=== PATIENT | female | born 1975 | race Caucasian/White ===

== ENCOUNTER 2024-08-09 20:30 | Inpatient (IN) ==
--- NOTE | 2024-08-09 21:13 | Emergency Department Note ---
Impression & Plan Non-healing wound of right lower extremity admit to the [facility] ED Provider Note NAME: REUBEN ANDRADE AGE: 49 SEX: Female INFORMANT: Patient ED PROVIDER(S): Raquel Martins DO CHIEF COMPLAINT: infected leg wounds PLAN: Disposition: Admit to the [facility] MEDICAL DECISION MAKING: this is a 49-year-old female patient who presents to the emergency department with wounds to her lower extremities which have become infected. Patient had breakdown of skin to her lower extremities approximate 1 year ago. She initially had home nursing coming in to do wound care and dressing changes but then began to go to the wound care clinic in [place]. Patient's friend explains that the wounds are not improving, in fact, they are worsening and now they are concerned that the wounds have become infected. the patient is afebrile. Laboratory studies revealed no leukocytosis or anemia. BUN is elevated at 30. I did look at previous laboratory studies in the epic system and her BUN has been previously elevated. renal function was normal. Glucose was 104. Evaluation of her lower extremities reveal multiple open/deep/nonhealing wounds with some surrounding erythema. Patient and her friend are concerned that the current wound care that she is receiving is not been adequate and that her overall condition condition/situation has worsened. I discussed the case with the [facility] and they will evaluate for further inpatient care. Care/management discussed with: civil engineering manager and [facility] Triage Nursing notes: reviewed and agree With them. Vital Signs: reviewed and remarkable for hypertension Additional History obtained from: patient's friend is at the bedside Chronic Medical/Social Conditions affecting care: morbid obesity; neuropathy Prior/ Outside/ External records reviewed: [facility] wound care visit notes and laboratory studies Differential Diagnosis: infected wounds; cellulitis; sepsis HPI: 49 year old Female arrives for evaluation of nonhealing wounds . wounds to her lower extremities which have become infected. Patient had breakdown of skin to her lower extremities approximate 1 year ago. She initially had home nursing coming in to do wound care and dressing changes but then began to go to the wound care clinic in [place]. Patient's friend explains that the wounds are not improving, in fact, they are worsening and now they are concerned that the wounds have become infected.. PAST MEDICAL HISTORY: neuropathy of her lower extremities, depression, obesity SOCIAL HISTORY: See Below, HOME MEDICATIONS: See Below ALLERGIES: See Below VITALS: See Below PHYSICAL EXAMINATION: HEENT: Head - normocephalic and atraumatic. Pupils are equal, round, and reactive to light. Extraocular eye muscles are intact, and sclera are anicteric. Nose - moist nasal mucosa without discharge. Mouth - moist buccal mucosa. Oropharynx is nonerythematous and there is no tonsillar exudate or edema noted. Neck: Supple; no Cervical lymphadenopathy Heart: Regular rate and rhythm. There is a normal S1 and S2 with no murmurs, clicks, or gallops appreciated. Lungs: lung sounds are distant secondary to body habitus but seem clear to auscultation. Abdomen: Soft, completely nontender, nondistended, with good bowel sounds. There are no palpable pulsatile masses or hepatosplenomegaly. There is no guarding, rigidity, or rebound noted. Extremities: Multiple open wounds in the right lower extremity in different stages of skin breakdown. Some have surrounding erythema of the skin And some have erythematous granulation tissue. Of concern are the wounds that are forming in the skin folds. Emergency Department course: The patient was evaluated in room A-11. A complete history and physical was performed. An IV lock was initiated and labs were drawn as above. I did obtain records from the [employer] system for comparison. I discussed the case with the [facility] Hospitalist and they will evaluate for further inpatient care. Past Med/Surg History Problem List (Updated 08/09/24 @ 22:16 by Raquel Martins DO) Non-healing wound of right lower extremity (Acute) Social History Smoking Status: Never smoker Preferred Language: Colombian Feels Safe at Home: Yes Results & Data (ED) Vital Signs Vital Signs - 24 hr 08/09/24 20:35 08/09/24 20:59 08/09/24 21:31 Temperature 36.7 C Temperature Source Temporal Artery Scan Pulse Rate 95 H 93 H Pulse Rate [Apical] 80 Respiratory Rate 16 21 Blood Pressure 167/78 H Blood Pressure Mean 107 Pulse Oximetry 97 Oxygen Delivery Method Room Air Room Air Sepsis Recent Fever Within 48 Hours No Sepsis New/Unexplained Change in Mental Status No Sepsis Action Taken by Nursing No Action Required Laboratory Data 08/09/24 20:55 08/09/24 20:55 Lab Results 08/09/24 Range/Units 20:55 WBC 8.53 (4.8-10.8) K/ul RBC 4.55 (4.20-5.40) M/uL Hgb 11.9 L (12.0-16.0) g/dl Hct 38.4 (37.0-47.0) % MCV 84.4 (80.0-100.0) fL MCH 26.2 (25.0-34.0) pg MCHC 31.0 L (32.0-36.0) g/dL RDW Std Deviation 45.9 (36.4-46.3) fL RDW Coeff of Mignon 15.0 H (11.5-14.5) % Plt Count 313 (130-400) K/uL MPV 9.1 L (9.4-12.4) fL Immature Gran % (Auto) 0.4 % Neut % (Auto) 70.0 % Lymph % (Auto) 24.6 % [place] % (Auto) 4.5 % Eos % (Auto) 0.1 % Baso % (Auto) 0.4 % Neut # (Auto) 5.98 (1.40-6.50) K/uL Lymph # (Auto) 2.10 (1.20-3.40) K/uL [place] # (Auto) 0.38 (0.11-0.59) K/uL Eos # (Auto) 0.01 (0.00-0.50) K/uL Baso # (Auto) 0.03 (0.00-0.20) K/uL Immature Gran # (Auto) 0.03 (0.01-0.20) K/uL PT 10.3 (9.0-12.0) Seconds INR 0.9 (0.9-1.1) APTT 32 H (21-31) Seconds PTT Ratio 1.2 Sodium 138 (136-145) mmol/L Potassium 3.9 (3.5-5.1) mmol/L Chloride 102 (98-107) mmol/L Carbon Dioxide 28 (21-32) mmol/L Anion Gap 8 (3-11) BUN 30 H (6-23) mg/dl Creatinine 0.82 (0.6-1.2) mg/dl Est Cr Clr Drug Dosing 102.2 ml/min eGFR 88.18 BUN/Creatinine Ratio 36.6 H (10-20) Glucose 104 H (70-99(Fasting)) mg/dl Calcium 9.6 (8.6-10.3) mg/dl Total Bilirubin 0.8 (0.2-1.0) mg/dl AST 11 L (13-39) U/L ALT 9 (7-52) U/L Alkaline Phosphatase 88 (34-104) U/L Total Protein 7.8 (6.0-8.3) gm/dl Albumin 3.9 (3.4-5.0) gm/dl Globulin 3.9 (2.5-4.0) gm/dl Albumin/Globulin Ratio 1.0 (0.9-2) Discharge Plan Visit Data Chief Complaint: Leg Injury/Pain Stated Complaint: RT LEG PAIN, ED Provider: Raquel Martins Discharge Problem: Non-healing wound of right lower extremity Forms Stand Alone Forms: [facility] Referrals Referrals: PCP,NO [Physician] -
[2024-08-09 21:18] LABS: Basophils # (auto) 0.03 K/uL (0.00-0.20); Basophils % (auto) 0.4 %; Eosinophils # (auto) 0.01 K/uL (0.00-0.50); Eosinophils % (auto) 0.1 %; Hematocrit (blood only) 38.4 % (37.0-47.0); Hemoglobin 11.9 g/dl (12.0-16.0); Immature Granulocytes # (auto) 0.03 K/uL (0.01-0.20); Immature Granulocytes % (auto) 0.4 %; Lymphocytes % (auto) 24.6 %; Mean Corpuscular Hemoglobin 26.2 pg (25.0-34.0); Mean Corpuscular Volume 84.4 fL (80.0-100.0); Mean Platelet Volume 9.1 fL (9.4-12.4); Monocytes # (auto) 0.38 K/uL (0.11-0.59); Monocytes % (auto) 4.5 %; Neutrophils # (auto) 5.98 K/uL (1.40-6.50); Platelet Count 313 K/uL (130-400); RDW Standard Deviation 45.9 fL (36.4-46.3); Red Blood Count 4.55 M/uL (4.20-5.40); White Blood Count 8.53 K/ul (4.8-10.8)
[2024-08-09 21:26] LABS: Albumin Level 3.9 gm/dl (3.4-5.0); BUN Creatinine Ratio 36.6 (10-20); Bilirubin,Total 0.8 mg/dl (0.2-1.0); Calcium 9.6 mg/dl (8.6-10.3); Creatinine Clr Calc Pharmacy 102.2 ml/min; Globulin 3.9 gm/dl (2.5-4.0); Potassium 3.9 mmol/L (3.5-5.1); Total Protein 7.8 gm/dl (6.0-8.3)
[2024-08-09 21:36] LABS: INR 0.9 (0.9-1.1); Partial Thromboplastin Ratio 1.2; Partial Thromboplastin Time 32 Seconds (21-31); Prothrombin Time 10.3 Seconds (9.0-12.0)
--- NOTE | 2024-08-09 23:31 | History & Physical Report ---
Date of Service August 09, 2024 Assessment & Plan (1) Non-healing wound of lower extremity: Plan: 49-year-old female with past med history significant for mild persistent asthma, obstructive sleep apnea but for last 3 months not using CPAP, questionable heart failure, morbid obesity, GERD, bipolar disorder, recurrent major depression, general anxiety disorder, PTSD, lower EXTR lymphedema comes because of nonhealing bilateral lower extremity wounds. Lower extremity wounds started about a year ago. Initially was getting home health but currently following with wound care in [place]. As per patient and her friend the wounds are getting worse. There seems some discharge from wounds. Denies any fevers. As the wounds are not getting better came here today. Ambulates with a walker. Denies abdominal pain. Normal bowel and bladder movements. Appetite is okay. Denies any chest pain or shortness of breath. No abdominal pain. No nausea. Currently no headache. Has some runny nose from allergies. Currently no sore throat. No cough. No headache. Hemodynamics are okay. In July 2024 patient was in [facility] for depression and suicidal ideation. Patient currently denies any depression or thoughts to hurt herself. Nonhealing wounds of lower extremities Following-up with the wound care but not getting better Will follow wound cultures Consult wound care Empiric IV Dapto and Zosyn Consult ID Close monitor Morbid obesity Counseling Nutrition follow-up Obstructive sleep apnea Not using CPAP for last 3 months. Patient states the tubing intangles causing discomfort that is why not using Counseling Lower extremity lymphedema On Lasix as needed Takes potassium supplement. Will follow labs Will follow echo Will follow Dopplers Bipolar disorder Recurrent depression Generalized anxiety disorder PTSD Continue home meds DVT prophylaxis Lovenox Disposition Med/telemetry Full code. History of Present Illness Chief Complaint: Nonhealing bilateral lower extremity wounds Primary Care Provider: Melissa Cruz PA-C 49-year-old female with past med history significant for mild persistent asthma, obstructive sleep apnea but for last 3 months not using CPAP, questionable heart failure, morbid obesity, GERD, bipolar disorder, recurrent major depression, general anxiety disorder, PTSD, lower EXTR lymphedema comes because of nonhealing bilateral lower extremity wounds. Lower extremity wounds started about a year ago. Initially was getting home health but currently following with wound care in [place]. As per patient and her friend the wounds are getting worse. There seems some discharge from wounds. Denies any fevers. As the wounds are not getting better came here today. Ambulates with a walker. Denies abdominal pain. Normal bowel and bladder movements. Appetite is okay. Denies any chest pain or shortness of breath. No abdominal pain. No nausea. Currently no headache. Has some runny nose from allergies. Currently no sore throat. No cough. No headache. Hemodynamics are okay. In July 2024 patient was in [facility] for depression and suicidal ideation. Patient currently denies any depression or thoughts to hurt herself. Past medical history. As mentioned above Past surgical history. Dental surgery. Hysteroscopy. Hysteroscopy endometrial ablation. Remote kidney stone. Cholecystectomy. Social history. Quit smoking 2011. Smoked 1 pack a day for 5 years. Alcohol rarely. No drug use. Family history. Mother had cervical cancer. CAD. COPD. Father had emphysema. Brother had depression. Allergies Allergy/AdvReac Type Severity Reaction Status Date / Time aspirin AdvReac Nose Bleed Verified 08/10/24 00:43 Home Medications Medication Instructions Recorded Confirmed Type aripiprazole 15 mg tablet 15 mg PO HS 08/09/24 08/09/24 History buspirone 10 mg tablet 10 mg PO BID 08/09/24 08/09/24 History cetirizine 10 mg tablet 10 mg PO DAILY 08/09/24 08/09/24 History clonazepam 1 mg tablet 0.5 mg PO BID PRN Anxiety 08/09/24 08/09/24 History diclofenac sodium 75 mg 75 mg PO TID 08/09/24 08/09/24 History tablet,delayed release duloxetine 60 mg capsule,delayed 60 mg PO DAILY 08/09/24 08/09/24 History release ferrous sulfate 28 mg iron tablet 28 mg PO DAILY 08/09/24 08/09/24 History furosemide 40 mg tablet 40 mg PO DAILY PRN Edema 08/09/24 08/09/24 History lamotrigine 100 mg tablet 100 mg PO BID 08/09/24 08/09/24 History montelukast 10 mg tablet 10 mg PO HS 08/09/24 08/09/24 History omeprazole 20 mg capsule,delayed 20 mg PO DAILY 08/09/24 08/09/24 History release potassium chloride 10 mEq 10 meq PO DAILY 08/09/24 08/09/24 History tablet,extended release pregabalin 150 mg capsule 150 mg PO TID 08/09/24 08/09/24 History Past Med/Surg History Problem List (Updated 08/09/24 @ 23:38 by Chandrakant Bailey MD) Non-healing wound of lower extremity Non-healing wound of right lower extremity (Acute) Social History Smoking Status: Former smoker Hx Alcohol Use: No Hx Substance Use: No Preferred Language: Indonesian Communication Ability: Effective Gill Tender Required: No Beliefs That Will Affect Care: None Current Living Situation: Other Current Living Situation Comment: roommate Feels Safe at Home: Yes Assistive Devices: CPAP, Glasses and Walker Review of Systems Review of Systems: All systems reviewed & are unremarkable except as noted in HPI & below Physical Exam Physical Exam: General- Not in distress Head- atraumatic Eyes- PERRL. ENT- oropharynx clear Neck- supple, no JVD. Lungs- clear to auscultation no wheezing or crackles Heart- regular rate and rhythm; no murmur, no gallop. Abdomen- normal bowel sounds, soft, nontender, no distension Extremities- b/l lower extremity gross edema present. multiple wounds seen right leg around knee region and a wound seen on left leg medial aspect around knee region Neuro- alert, oriented PERRL, no facial palsy; no dysarthria; moves extremities Results & Data Results & Data Vital Signs (Past 12 Hours) Vital Signs Temp Pulse Pulse Resp BP Pulse Ox O2 Del Method 08/09/24 21:31 80 21 Room Air 08/09/24 20:59 93 H 08/09/24 20:35 36.7 C 95 H 16 167/78 H 97 Room Air Diagnostic Findings Laboratory Results WBC 8.53 K/ul (4.8-10.8) 08/09/24 20:55 RBC 4.55 M/uL (4.20-5.40) 08/09/24 20:55 Hgb 11.9 g/dl (12.0-16.0) L 08/09/24 20:55 Hct 38.4 % (37.0-47.0) 08/09/24 20:55 MCV 84.4 fL (80.0-100.0) 08/09/24 20:55 MCH 26.2 pg (25.0-34.0) 08/09/24 20:55 MCHC 31.0 g/dL (32.0-36.0) L 08/09/24 20: RDW Std Deviation 45.9 fL (36.4-46.3) 08/09/24 20: RDW Coeff of Mignon 15.0 % (11.5-14.5) H 08/09/24 20: Plt Count 313 K/uL (130-400) 08/09/24 20: MPV 9.1 fL (9.4-12.4) L 08/09/24 20:55 Immature Gran % (Auto) 0.4 % 08/09/24 20:55 Neut % (Auto) 70.0 % 08/09/24 20:55 Lymph % (Auto) 24.6 % 08/09/24 20:55 [place] % (Auto) 4.5 % 08/09/24 20: Eos % (Auto) 0.1 % 08/09/24 20: Baso % (Auto) 0.4 % 08/09/24 20: Neut # (Auto) 5.98 K/uL (1.40-6.50) 08/09/24 20:55 Lymph # (Auto) 2.10 K/uL (1.20-3.40) 08/09/24 20:55 [place] # (Auto) 0.38 K/uL (0.11-0.59) 08/09/24 20: Eos # (Auto) 0.01 K/uL (0.00-0.50) 08/09/24 20: Baso # (Auto) 0.03 K/uL (0.00-0.20) 08/09/24: Immature Gran # (Auto) 0.03 K/uL (0.01-0.20) 08/09/24 20:55 PT 10.3 Seconds (9.0-12.0) 08/09/24 20: INR 0.9 (0.9-1.1) 08/09/24 20: APTT 32 Seconds (21-31) H 08/09/24 20: PTT Ratio 1.2 08/09/24 20:55 Sodium 138 mmol/L (136-145) 08/09/24 20:55 Potassium 3.9 mmol/L (3.5-5.1) 08/09/24 20:55 Chloride 102 mmol/L (98-107) 08/09/24 20:55 Carbon Dioxide 28 mmol/L (21-32) 08/09/24 20:55 Anion Gap 8 (3-11) 08/09/24 20:55 BUN 30 mg/dl (6-23) H 08/09/24 20:55 Creatinine 0.82 mg/dl (0.6-1.2) 08/09/24 20:55 Est Cr Clr Drug Dosing 102.2 ml/min 08/09/24 20:55 eGFR 88.18 08/09/24 20:55 BUN/Creatinine Ratio 36.6 (10-20) H 08/09/24 20:55 Glucose 104 mg/dl (70-99(Fasting)) H 08/09/24 20:55 Calcium 9.6 mg/dl (8.6-10.3) 08/09/24 20:55 Total Bilirubin 0.8 mg/dl (0.2-1.0) 08/09/24 20:55 AST 11 U/L (13-39) L 08/09/24 20:55 ALT 9 U/L (7-52) 08/09/24 20:55 Alkaline Phosphatase 88 U/L (34-104) 08/09/24 20:55 Total Protein 7.8 gm/dl (6.0-8.3) 08/09/24 20:55 Albumin 3.9 gm/dl (3.4-5.0) 08/09/24 20:55 Globulin 3.9 gm/dl (2.5-4.0) 08/09/24 20:55 Albumin/Globulin Ratio 1.0 (0.9-2) 08/09/24 20:55 Code Status & VTE Plan VTE Prophylaxis Plan VTE Prophylaxis will be ordered: Yes
--- OUTSIDE RECORDS SUMMARY | 2024-08-09 23:46 | External Medical Summary | Summary of Care ---
Author Name Unknown Organization [facility] Address [address] [place] [address] Phone [phone] Care Team Providers Care Radiologic Tech Name Role Phone Melissa Cruz PA-C Primary Care Provider [phone]- [phone] Reason for Visit * Reason Comments eRx-Medication Refill Encounter Details Date Type Department Care Team (Late st Contact Info) Description 08/07/[address] [place] [address] Melissa Cruz PA-C [address] [place] [id number] Vitamin D deficiency Allergies Active Allergy Reactions Criticality Noted Date Comments Aspirin 01/27/2014 Increased bleeding documented as of this encounter (statuses as of 08/08/2024) Medications traZODone (DESYREL) 50 MG Tablet Take 1 Tab by mouth at bedtime as needed, may repeat once for Sleep. 30 Tab 08/22/19 18 Active Albuterol Sulfate HFA 108 (90 Base) MCG/ACT Inhalation Aerosol SolutionIndicatio ns:Mild persistent asthma without complication 2 puffs every 4 hours as needed for shortness of breath/cough 18 g 2 08/29/19 22 Active Fluticasone Propionate 50 MCG/ACT Nasal Suspension (Flonase)Indicati ons:Acute maxillary sinusitis, recurrence not specified SPRAY 2 SPRAYS INTO EACH NOSTRIL IN THE MORNING 16 mL 09/30/19 23 Active Omeprazole 20 MG Oral Capsule Delayed Release (PriLOSEC)Indicat ions:Gastroesopha geal reflux disease without esophagitis TAKE 1 CAPSULE BY MOUTH EVERY DAY 90 Capsule 3 12/03/19 24 Active Diclofenac Sodium 75 MG Oral Tablet Delayed Release (Voltaren)Indicat ions:Primary osteoarthritis of one knee, right TAKE BY MOUTH 1 TABLET IN THE MORNING AND 1 TABLET AT NOON AND 1 TABLET BEFORE BEDTIME. WITH FOOD.. 90 Tablet 5 12/03/19 24 Active Cetirizine HCl 10 MG Oral Tablet (ZyrTEC)Indicatio ns:Mild persistent asthma without complication TAKE 1 TABLET BY MOUTH EVERY DAY 90 Tablet 1 03/17/20 24 Active Potassium Chloride ER 10 MEQ Oral Tablet Extended ReleaseIndication s:Edema, unspecified type TAKE 1 TABLET BY MOUTH EVERY DAY IN THE MORNING 90 Tablet 1 04/23/20 24 Active Ferrous Sulfate 28 MG Oral Tablet Take 1 Tablet by mouth every morning. Active busPIRone HCl 10 MG Oral Tablet (Buspar) Take 1 Tablet by mouth in the morning and 1 Tablet before bedtime. 30 Tablet 1 4 10:21 AM EST 07/21/20 24 Active lamoTRIgine 100 MG Oral Tablet (LaMICtal) Take 1 Tablet by mouth in the morning and 1 Tablet before bedtime. 30 Tablet 1 4 10:21 AM EST 07/21/20 24 Active Pregabalin 150 MG Oral Capsule (Lyrica)Indicatio ns:Neuropathy Take 1 Capsule by mouth in the morning and 1 Capsule at noon and 1 Capsule before bedtime. 45 Capsule 1 4 10:21 AM EST 07/21/20 24 Active DULoxetine HCl 60 MG Oral Capsule Delayed Release Particles (Cymbalta) Take 1 Capsule by mouth in the morning. 15 Capsule 1 4 10:21 AM EST 07/22/20 24 Active ARIPiprazole 15 MG Oral Tablet (Abilify) Take 1 Tablet by mouth at bedtime. 15 Tablet 1 4 10:21 AM EST 07/21/20 24 Active Furosemide 40 MG Oral Tablet (Lasix)Indication s:Lymphedema Take 1 Tablet by mouth daily as needed (edema). 07/21/20 24 Active clonazePAM 1 MG Oral Tablet (KlonoPIN) Take 1 Tablet by mouth 2 times a day as needed for Anxiety. 07/28/20 24 Active Vitamin D3 50 MCG (2000 UT) Oral CapsuleIndication s:Vitamin D deficiency TAKE 1 CAPSULE BY MOUTH EVERY DAY IN THE MORNING 90 Capsule 08/08/19 25 Active Montelukast Sodium 10 MG Oral Tablet (Singulair)Indica tions:Mild persistent asthma without complication Take 1 Tablet by mouth at bedtime. 90 Tablet 3 08/07/19 25 Active Vitamin D3 50 MCG (2000 UT) Oral CapsuleIndication s:Vitamin D deficiency TAKE 1 CAPSULE BY MOUTH EVERY DAY IN THE MORNING 90 Capsule 04/23/20 24 025 Discontinued documented as of this encounter (statuses as of 08/08/2024) Active Problems Problem Noted Date Diagnosed Date Chronic ulcer of lower extremity 07/29/2024 Heart failure 07/29/2024 Type 2 diabetes mellitus wit h hemoglobin A1c goal of less than 7.0% 07/29/2024 Bipolar disorder, current episode depressed, mod erate 07/11/2024 Neuropathy 07/26/2023 Class 3 severe obesity due t o excess calories with serious comorbidity and body mass index (BMI) greater than or equal to 70 in adult 10/06/2020 Bipolar disorder 08/22/2017 PTSD (post-traumatic stress disorder) 08/22/2017 LYNSEY (generalized anxiety disorder) 07/23/2017 Lymphedema 04/27/2017 JORGE A (obstructive sleep apnea) 11/08/2016 Recurrent major depressive disorder, in partial remission 03/15/2015 Asthma, mild persistent 01/20/2015 Lumbago 08/28/2014 Right knee DJD 08/28/2014 Esophageal reflux 01/27/2014 Calculus of kidney 04/01/2010 documented as of this encounter (statuses as of 08/08/2024) Resolved Problems Problem Noted Date Diagnosed Date Resolved Date Body mass index (BMI) greate r than or equal to 70 in adult 05/07/2017 10/06/2020 Overview: Per Obesity protocol #1 Body mass index (BMI) of 70 or greater in adult 10/19/2016 05/10/2017 Overview: Per Obesity protocol #1 Controlled substance agreement terminated 04/28/2016 06/05/2022 Morbid obesity with BMI of 70 and over, adult 04/07/20 16 06/02/2021 Encounter for sterilization 04/16/2015 09/15/2016 Abnormal uterine bleeding 04/16/2015 Controlled substance agreement signed 03/15/2015 04/28/2016 Edema 08/28/2014 04/27/2017 Morbid obesity 01/27/2014 05/10/2017 Overview: Per Obesity protocol #1 Adult body mass index 70 and over 08/11/2010 02/16/2014 Asthma with severity to be determined 01/27/2010 03/15/2015 Overview (11/15/2015): Per Asthma Taxonomy ICD-10 update of inactive term Obesity, morbid (more than 1 00 lbs over ideal weight or BMI > 40) 11/02/2009 03/15/2015 Overview (10/25/2015): Per Obesity Taxonomy ICD-10 update of inactive term ADVANCE DIRECTIVE INFORMATION 12/02/2008 05/06/2018 Overview (12/02/2008): No, Advance Directive brochure given to patient. Melena 10/07/2008 02/16/2014 Abdominal pain, other specified site 09/28/2008 02/16/2014 Overview (09/28/2008): LUQ but more constant in the L. Sided kidney area Morbid obesity, BMI not known 05/04/2006 11/02/2009 Overview (11/02/2009): Per Obesity Taxonomy EXTRINSIC ASTHMA, UNSPEC 05/04/2006 Esophagitis 05/04/2006 03/15/2015 Overview (05/07/2017): ICD-10 update of inactive term Major depressive disorder 05/04/2006 Overview (05/29/2017): ICD-10 update of inactive term documented as of this encounter (statuses as of 08/08/2024) Immunizations Name Administration Dates Next Due Pneumococcal Conjugate Vacci ne, 20-valent ([id number]) 12/04/2022 Pneumococcal Polysaccharide PPV23 (Pneumovax) 05/06/2011 Seasonal Influenza Vac., MDV , IM, 0.5 mL (Fluzone) 05/27/2014,04/11/2013 Seasonal Influenza, PF, 6 M & above, IM , (FluLaval or Fluzone) 06/25/2023,06/05/2022,06/02/2021,05/22,05/06/2018,04/27/2017 Seasonal Influenza, Quadriva lent, No Preserve, IM 05/30/2016 Seasonal Influenza, Trivalen t, (IIV3), PF, (Fluzone) 04/23/2024 TDAP, Age 7 and older, IM (Adacel) 01/20/2015 documented as of this encounter Social History Tobacco Use Types Packs/Day Years Used Date Smoking Tobacco: Former Cigarettes 1 5 1 08/06/2006 - 06/06/2012 Smokeless Tobacco: Never Alcohol Use Standard Drinks/Week Comments Yes 1 (1 standard drink = 0.6 oz pur e alcohol) rare AUDIT-C Answer Date Recorded Q1: How often do you have a drink containing alc ohol? Monthly or less 07/10/2024 Q2: How many drinks containi ng alcohol do you have on a typical day when you are drinking? 5 or 6 07/10/2024 Q3: How often do you have si x or more drinks on one occasion? Less than monthly 07/10/2024 PHQ-2 Answer Date Recorded PHQ Adult Total Score 5 07/21/2024 Hunger Vital Sign Answer Date Recorded Within the past 12 months, y ou worried that your food would run out before you got the money to buy more. Patient declined Within the past 12 months, t he food you bought just didn't last and you didn't have money to get more. Patient declined 12/2023 Childcare Answer Date Recorded Do you feel overwhelmed with taking care of a child, family member or friend? No 03/10/2024 Does your family need help f inding childcare? (Household - for ages 0-17 years) Not on file 03/10/2024 Clothing Answer Date Recorded Have you been unable to get clothing when it was really needed? No 03/10/2024 Is your family able to get c lothes or diapers when needed? (Household - for ages 0-17 years) Not on file 03/10/2024 Personal Safety Answer Date Recorded Do you feel unsafe or have concerns for your saf ety? No 07/10/2024 Do you have concerns for you r family's safety? (Household - for ages 0-17 years) Not on file 07/10/2024 Utilities Answer Date Recorded Do you have trouble paying y our heating, water, or electric bill? No 07/10/2024 Is your family able to pay t he heat, water, or electric bill? (Household - for ages 0-17 years) Not on file 07/10/2024 Does your family have access to good internet? (Household - for ages 0-17 years) Not on file 07/10/2024 Employment Status Answer Date Recorded Are you unemployed or without regular income? No 03/10/2024 Does the household have a re lar source of income? (Household - for ages 0-17 years) Not on file 03/10/2024 Social Connections Answer Date Recorded How often do you feel lonely or isolated from th ose around you? Often 03/10/2024 Financial Resource Strain Answer Date R ecorded Do you have any trouble payi ng for your medications, or do you think you might in the future? No 03/10/2024 Does your family have troubl e paying for medicine? (Household - for ages 0-17 years) Not on file 03/10/2024 Transportation Needs Answer Date Record ed Do you have trouble getting a ride to medical visits or work? (Adult - for ages 18 years and over) Not on file 07/10/2024 Does your family have a hard time getting a ride to doctors visits? (Household - for ages 0-17 years) Not on file 07/10/2024 Has lack of transportation k ept you from medical appointments, meetings, work, or from getting things needed for daily living? Check all that apply. No 07/10/2024 Do you (or your family) have trouble finding or paying for a ride (transportation)? (Household - for ages 0-17 years) Not on file 07/10/2024 Housing Stability Answer Date Recorded Do you currently live in a s helter or have no steady place to sleep at night? No 07/10/2024 Do you think you are at risk of becoming homeless? (Adult - for ages 18 years and over) Not on file 07/10/2024 Does your family worry about paying for your home or becoming homeless? (Household - for ages 0-17 years) Not on file 1 09/10/2023 Are you homeless or worried that you might be in the future? No 07/10/2024 Are you (or your family) camila eless or worried that you might be in the future? (Household - for ages 0-17 years) Not on file Food Insecurity Answer Date Recorded Do you need food for this week? No 07/10/2024 Are you able to get enough f ood for your family? (Household - for ages 0-17 years) Not on file 07/10/2024 Does your family need food t his week? (Household - for ages 0-17 years) Not on file 07/10/2024 Do you always have enough fo od for your family? (Household - for ages 0-17 years) Not on file 07/10/2024 Comments No Sex and Gender Information Value Date Recorded Sex Assigned at Female 12/04/2022 10:26 AM EDT Legal Sex Female 5:51 AM EST Gender Identity Not on file Sexual Orientation Straight 12/04/2022 10 :26 AM EDT Occupation Industry Job Start Date Job End Date disabled Not on file Not on file Not on file documented as of this encounter Miscellaneous Notes * Telephone Encounter - Melissa Cruz PA-C - 08/08/2024 6:42 AM ESTSigned Prescriptions: Disp Refills Vitamin D3 50 MCG (1999) Oral Capsule 90 Cap*0 Sig: TAKE 1 CAPSULE BY MOUTH EVERY DAY IN THE MORNING Authorizing Provider: MELISSA CRUZ * Telephone Encounter - Julieth Mitchell CCMA - 08/07/2024 2:34 PM ESTPending Prescriptions: Disp Refills Vitamin D3 50 MCG (1999) Oral Capsule [*90 Cap*0 Sig: TAKE 1 CAPSULE BY MOUTH EVERY DAY IN THE MORNING * Telephone Encounter - Julieth Mitchell CCMA - 08/07/2024 2:34 PM EST Did you pend patient's preferred pharmacy and medication before forwarding?yes Pharmacy: [facility] [address] [place] [address] Pending Prescriptions: Disp Refills Vitamin D3 50 MCG (1999 UT) Oral Capsule *90 Cap*0 Sig: TAKE 1 CAPSULE BY MOUTH EVERY DAY IN THE MORNING Last Visit: 04/23/2024 (in office), 01/02/2024 (telemedicine) Next Visit: Visit date not found If no future appointments scheduled, and last appointment is greater than a year ago, please schedule patient for a follow-up appointment Last date the medication was ordered: 04/23/2024 Is this request for a controlled substance?No Urine Drug Screen: Results for orders placed or performed during the hospital encounter of 07/09/24 TOXICOLOGY, URINE SCREEN W/O CONFIRMATION Result Value Amphetamines Screen, U Positive (A) Benzodiazepines Screen, U Negative Cannabinoids Screen, U Negative Cocaine Metabolite Screen, U Negative Fentanyl Screen, U Negative Hydrocodone Screen, U Negative Methadone Metabolite Screen, U Negative Morphine/Codeine Screen, U Negative Oxycodone Screen, U Negative Narrative Cutoff Concentrations: Drug Level Amphetamines 500 ng/mL Benzodiazepines 100 ng/mL Cannabinoids 50 ng/mL Cocaine Metabolite 150 ng/mL Fentanyl 1 ng/mL Hydrocodone / Hydromorphone 300 ng/mL Methadone Metabolite 100 ng/mL Morphine / Codeine 300 ng/mL Oxycodone / Oxymorphone 100 ng/mL Screening results are presumptive and can only be used for medical purposes. Confirmatory testing is available upon request. Patient Phone Numbers Labs: Lab Results Component Value Date/Time CREAT 1.0 07/15/2024 11:27 AM CREAT 0.9 01/26/2020 09:02 AM POTASSIUM 4.7 07/15/2024 11:27 AM POTASSIUM 4.6 01/26/2020 09:02 AM TSH 1.83 07/09/2024 12:55 PM TSH 2.91 05/12/2019 09:16 AM LDL 87 07/09/2024 12:55 PM LDL 99 08/18/2017 07:17 AM LDL NOT APPLICABLE 08/18/2017 07:17 AM ALT 14 07/09/2024 12:55 PM ALT 9 (L) 08/16/2018 09:12 PM HGBA1C 4.8 07/09/2024 12:55 PM HGBA1C 5.5 05/12/2019 09:16 AM * Telephone Encounter - Daxa Lucio - 08/07/2024 2:32 PM ESTPending Prescriptions: Disp Refills Vitamin D3 50 MCG (1999 UT) Oral Capsule [*90 Cap*0 Sig: TAKE 1CAPSULE BY MOUTH EVERY DAY IN THE MORNING documented in this encounter Plan of Treatment Upcoming Encounters Date Type Department Care Team (Latest Contact Info) Description 08/08/2024 11:30 AM EST Nurse Only Wound Care, [address] [place] [address] [facility], Nurse Wound Care [address] [place] [address] [place] [address] 08/11/2024 11:20 AM EST Nurse Only Wound Care, [address] [place] [address] [place], Nurse Wound Care [address] [facility] [place] [place] [address] 08/14/2024 11:30 AM EST Nurse Only Wound Care, [facility] [address] [place] [address] [place], Nurse Wound Care [address] [facility] [place] [place] [address] 08/15/2024 11:00 AM EST Nurse Only Wound Care, [address] [place] [address] [place], Nurse Wound Care [address] [facility] [place] [place] [address] 08/18/2024 11:20 AM EST Nurse Only Wound Care, [address] [place] [address] [place], Nurse Wound Care [address] [facility] [place] [place] [address] 08/19/2024 11:30 AM EST Nurse Only Wound Care, [address] [place] [address] [place], Nurse Wound Care [address] [place] [address], [place] [address] 08/22/2024 10:30 AM EST Nurse Only Wound Care, [address] [place] [address] [place], Nurse Wound Care [address] [facility] [place] [place] [address] 08/25/2024 10:30 AM EST Nurse Only Wound Care, [address] [place] [address] [place], Nurse Wound Care [address] [facility] [place] [place] [address] 08/27/2024 10:30 AM EST Nurse Only Wound Care, [address] [place] [address] [place], Nurse Wound Care [address] [facility] [place] [address] 08/29/2024 10:30 AM EST Nurse Only Wound Care, [facility] [address] [place] [address] [facility], Nurse Wound Care [address] [facility] [place] [address] 09/01/2024 11:00 AM EST Office Visit Wound Care, [facility] [address] [place] [address] Yuriy Hilario MD [address] [place] [address] 10/09/2024 12:10 PM EST Hospital Encounter OR [facility], Operating Room, [facility] - 4th Floor [address] [facility] [place] [phone] Bigg Wetzel MD [address] [facility] [place] [address] 10/09/2024 12:10 PM EST - 10/09/2024 1:11 PM EST Surgery [facility], Operating Room, [facility] - 4th Floor [facility] [phone] Bigg Wetzel MD [address] [facility] [place] [address] COLONOSCOPY FLEXIBLE PROXIMAL DIAGNOSTIC 10/24/2024 10:00 AM EDT [facility] [address] [facility] [place] [address] Darnell Boggs DO [address] [facility] [address] Scheduled Procedures Name Priority Associated Diagnoses Date/Ti me COLONOSCOPY FLEXIBLE PROXIMAL DIAGNOSTIC Screening for colon cancer 10/09/2024 12:10 PM EST Health Maintenance Due Date Last Done Comments Albumin/Creatinine Ratio 01/12/1994 Diabetic Eye Exam 01/12/1994 Diabetic Foot Exam 01/12/1994 Hepatitis B Vaccine (1 of 3 - 19+ 3-dose series) 01/12/1995 HPV/Co-Test 01/12/2006 Mammogram 06/06/2019 06/06/2018, 09/18/2016 Cologuard 01/12/2021 Colonoscopy 01/12/2021 12/02/2008 Colorectal Cancer Screening 01/12/2021 Fecal Occult Blood Test 01/12/2021 Sigmoidoscopy 01/12/2021 Cervical Cancer Screening 01/11/2024 Pap Smear 01/11/2024 01/10/2021, 10/05, 02/10/2009 COVID-19 Vaccine ( season) 2024 HbA1c 01/07/2025 07/09/2024, 05/06, 06/02/2021, Additional history exists DTap/Tdap Vaccines (2 - Td or Tdap) 01/20/2025 01/20/2015 GFR 07/15/2025 07/15/2024, 03/2024, 07/09/2024, Additional history exists Depression Monitoring 07/21/2025 07/21/2024 , 07/09/2024, 03/10/2024 Lipid Panel 07/09/2029 07/09/2024, 05/06, 06/02/2021, Additional history exists Pneumococcal Vaccine: Pediatrics (0 to 5 Years) and At-Risk Patients (6 to 18 Years and 19+ Years) Completed 12/04/2022, 05/06/2011 Influenza Vaccine (FLU shot) Completed , 06/25/2023, 06/05/2022, Additional history exists HPV (Gardasil) Vaccine Aged Out No lo nger eligible based on patient's age to complete this topic MENINGOCOCCAL (MENACTRA/MENVEO) Aged Out No longer eligible based on patient's age to complete this topic documented as of this encounter Medical Devices Implanted Type Area Interface Developer Device Identifier Shelf Expiration Date Model / Serial / Lot Device Perm Cntrl [id number] - [id number] Implanted:Qty: 2 on 09/27/2015 by Sharda Ruiz, Corey Rucker MD at OR [facility] Uterus [employer] 05/03/2017 [id number] / / [id number] documented as of this encounter Visit Diagnoses Diagnosis Vitamin D deficiency Unspecified vitamin D deficiency Screening for colon cancer Special screening for malignant neoplasms, colon documented in this encounter Advance Directives * Full Code (Latest Code Status on File) Date Activated Date Inactivated Comments 07/10/2024 5:03 PM 07/21/2024 7:21 PM This order reflects the patients wishes and were consensually agreed upon. Question Answer Comments Discussion of Advance Direct genevieve occurred with: Not Discussed due to patient's condition * Full Code Date Activated Date Inactivated Comments 08/18/2017 12:17 AM 08/22/2017 6:10 PM This order reflects the patients wishes and were consensually agreed upon. Question Answer Comments Discussion of Advance Directives occurred with: Patient Does the patient have a Living Will? No Does the patient have Health Care Power of Attor benoit? No * Full Code Date Activated Date Inactivated Comments 06/11/2017 12:42 PM 06/11/2017 6:41 PM This order reflects the patients wishes and were consensually agreed upon. Question Answer Comments Discussion of Advance Directives occurred with: Not Discussed Does the patient have a Living Will? No Does the patient have Health Care Power of Attor benoit? No * Full Code Date Activated Date Inactivated Comments 09/27/2015 11:16 AM 09/27/2015 5:28 PM This order reflects the patients wishes and were consensually agreed upon. Question Answer Comments Discussion of Advance Directives occurred with: Not Discussed Does the patient have a Living Will? No Does the patient have Health Care Power of Attor benoit? No Care Teams Radiologic Tech Relationship Specialty Start Date End Date Melissa Cruz PA-C [address] [id number] [place] [address] PCP - General Physician Grain Combiner 06/02/21 documented as of this encounter
--- OUTSIDE RECORDS SUMMARY | 2024-08-09 23:46 | External Medical Summary | Summary of Care ---
Author Name Unknown Organization [facility] Address [address] [place] [address] Phone [phone] Care Team Providers Care Retail Sales Advisor Name Role Phone Melissa Cruz PA-C Primary Care Provider [phone]- [phone] Reason for Visit * Reason Onset Date Comments Home Health 05/08/2024 Encounter Details Date Type Department Care Team (Late st Contact Info) Description 05/08/[address] [place] [address] Melissa Cruz PA-C [address] [place] [address] Home Health Allergies Active Allergy Reactions Criticality Noted Date Comments Aspirin 01/27/2014 Increased bleeding documented as of this encounter (statuses as of 08/07/2024) Medications traZODone (DESYREL) 50 MG Tablet Take 1 Tab by mouth at bedtime as needed, may repeat once for Sleep. 30 Tab 8 Active Albuterol Sulfate HFA 108 (90 Base) MCG/ACT Inhalation Aerosol SolutionIndication s:Mild persistent asthma without complication 2 puffs every 4 hours as needed for shortness of breath/cough 18 g 2 2 Active Fluticasone Propionate 50 MCG/ACT Nasal Suspension (Flonase)Indicatio ns:Acute maxillary sinusitis, recurrence not specified SPRAY 2 SPRAYS INTO EACH NOSTRIL IN THE MORNING 16 mL 3 Active Omeprazole 20 MG Oral Capsule Delayed Release (PriLOSEC)Indicati ons:Gastroesophage al reflux disease without esophagitis TAKE 1 CAPSULE BY MOUTH EVERY DAY 90 Capsule 3 4 Active Diclofenac Sodium 75 MG Oral Tablet Delayed Release (Voltaren)Indicati ons:Primary osteoarthritis of one knee, right TAKE BY MOUTH 1 TABLET IN THE MORNING AND 1 TABLET AT NOON AND 1 TABLET BEFORE BEDTIME. WITH FOOD.. 90 Tablet 5 4 Active Cetirizine HCl 10 MG Oral Tablet (ZyrTEC)Indication s:Mild persistent asthma without complication TAKE 1 TABLET BY MOUTH EVERY DAY 90 Tablet 1 4 Active Potassium Chloride ER 10 MEQ Oral Tablet Extended ReleaseIndications :Edema, unspecified type TAKE 1 TABLET BY MOUTH EVERY DAY IN THE MORNING 90 Tablet 1 4 Active Vitamin D3 50 MCG (2000 UT) Oral CapsuleIndications :Vitamin D deficiency TAKE 1 CAPSULE BY MOUTH EVERY DAY IN THE MORNING 90 Capsule 4 Active documented as of this encounter (statuses as of 08/07/2024) Active Problems Problem Noted Date Diagnosed Date [...] as of this encounter (statuses as of 08/07/2024) Resolved Problems Problem Noted Date Diagnosed Date [...] as of this encounter (statuses as of 08/07/2024) Immunizations Name Administration Dates Next Due Pneumococcal Conjugate Vacci ne, 20-valent ([id number]) 12/04/2022 Pneumococcal Polysaccharide PPV23 (Pneumovax) 05/06/2011 Seasonal [...] Never Alcohol Use Standard Drinks/Week Comments Yes 0 (1 standard drink = 0.6 oz pur [...] encounter Miscellaneous Notes * Telephone Encounter - Frida Maria, ELIZA - 05/08/2024 10:16 AM EDT HH Concerns Ericka RN, Calling from: [facility] Report/Concerns of: See Below Narrative: Ericka calling in to report, they have been seeing patient for a while for non- healing wounds on her legs. She finally was able to get into the wound clinic and will be going twice a week. Her first appt was yesterday and next appt is tomorrow, there is no reason patient needs nurse to come out today. She will be missing visit for this week. Since she is going to be following up outpatient they plan on discharging her next week and will besending order over for signature for 1 more visit next week. [facility] HH documented in this encounter Plan of Treatment Upcoming Encounters Date Type Department Care Team (Latest Contact Info) Description 08/08/2024 11:30 AM EST Nurse Only Wound Care, [address], [place] [address] [facility], Nurse Wound Care [address] [place] [address] 08/11/2024 11:20 AM EST Nurse Only Wound Care, [address], [place] [address] [facility], Nurse Wound Care [address] [place] [address] 08/14/2024 11:30 AM EST Nurse Only Wound Care, [address], [place] [address] [facility], Nurse Wound Care [address] [place] [address], [place] [address] 08/15/2024 11:00 AM EST Nurse Only Wound Care, [address], [place] [address] [facility], Nurse Wound Care [address] [place] [address], [place] [address] 08/18/2024 11:20 AM EST Nurse Only Wound Care, [address], [place] [address] [facility], Nurse Wound Care [address] [place] [address], [place] [address] 08/19/2024 11:30 AM EST Nurse Only Wound Care, [address] [place] [address] [facility], Nurse Wound Care [address] [place] [address] 08/22/2024 10:30 AM EST Nurse Only Wound Care, [address] [place] [address] [facility], Nurse Wound Care [address] [place] [address] 08/25/2024 10:30 AM EST Nurse Only Wound Care, [address] [place] [address] [facility], Nurse Wound Care [address] [place] [address], [place] [address] 08/27/2024 10:30 AM EST Nurse Only Wound Care, [address] [place] [address] [facility], Nurse Wound Care [address] [place] [address], [place] [address] 08/29/2024 10:30 AM EST Nurse Only Wound Care, [address] [place] [address] [facility], Nurse Wound Care [address] [place] [address] 09/01/2024 11:00 AM EST Office Visit Wound Care, [address] [place] [address] Yuriy Hilario [facility] [place] [address] 10/09/2024 12:10 PM EST Hospital Encounter OR [facility], Operating Room, [facility] - 4th Floor [address] [place] [address], [place] [id number] Bigg Wetzel MD [address] [place] [address] 10/09/2024 12:10 PM EST - 10/09/2024 1:11 PM EST Surgery OR [facility], Operating Room, [facility] - 4th Floor [address] [place] [address] Bigg Wetzel MD [address] [place] [address] COLONOSCOPY FLEXIBLE PROXIMAL DIAGNOSTIC 10/24/2024 10:00 AM EDT Office Visit Cardiology, [place] [address] [place] [address] Darnell Boggs DO [address] [place] [address] Scheduled Procedures Name Priority Associated Diagnoses Date/Ti [...] 01/11/2024 01/10/2021, 10/05, 02/10/2009 COVID-19 Vaccine ( - season) 2024 HbA1c 01/07/2025 07/09/2024, 05/06, 06/02/2021, Additional history exists DTap/Tdap Vaccines (2 - Td or Tdap) 01/20/2025 01/20/2015 GFR 07/15/2025 07/15/2024, 12/03/2024, 07/09/2024, Additional history exists Depression Monitoring 07/21/2025 [...] this encounter Medical Devices Implanted Type Area Vat Cleaner Device Identifier Shelf Expiration Date Model / Serial / Lot Device Perm Cntrl [id number] - [id number] Implanted:Qty: 2 on 09/27/2015 by Sharda Ruiz, Corey Rucker MD at OR 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 No Care Teams Retail Sales Advisor Relationship Specialty Start Date End Date Melissa Cruz PA-C [address] [facility] [place] [address] PCP - General Physician Insole Buffer 06/02/21 documented as of this encounter
--- OUTSIDE RECORDS SUMMARY | 2024-08-09 23:46 | External Medical Summary | Summary of Care ---
Author Name Unknown Organization [facility] Address [address] [place] [address] Phone [phone] Care Team Providers Care Marble Machine Tender Name Role Phone Melissa Cruz PA-C Primary Care Provider [phone]- [phone] Reason for Visit * Reason Onset Date Comments Medication Refill 08/07/2024 Encounter Details Date Type Department Care Team (Late st Contact Info) Description 08/07/2024 Refill [facility] [address] [place] [address] Melissa Cruz PA-C [address] [place] [address] Mild persistent asthma without complication Allergies Active Allergy Reactions Criticality Noted Date [...] MORNING 90 Tablet 1 04/23/20 24 Active Vitamin D3 50 MCG (2000 UT) Oral CapsuleIndications :Vitamin D deficiency TAKE 1 CAPSULE BY MOUTH EVERY DAY IN THE MORNING 90 Capsule 04/23/20 24 Active Ferrous Sulfate 28 MG Oral Tablet Take 1 Tablet by mouth every morning. Active busPIRone HCl 10 MG Oral Tablet (Buspar) Take 1 Tablet by mouth in the morning and 1 Tablet before bedtime. 30 Tablet 1 07/21/2024 10:21 AM EST 07/21/20 24 Active lamoTRIgine 100 MG Oral Tablet (LaMICtal) Take 1 Tablet by mouth in the morning and 1 Tablet before bedtime. 30 Tablet 1 07/21/2024 10:21 AM EST 07/21/20 24 Active Pregabalin 150 MG Oral Capsule (Lyrica)Indication s:Neuropathy Take 1 Capsule by mouth in the morning and 1 Capsule at noon and 1 Capsule before bedtime. 45 Capsule 1 07/21/2024 10:21 AM EST 07/21/20 24 Active DULoxetine HCl 60 MG Oral Capsule Delayed Release Particles (Cymbalta) Take 1 Capsule by mouth in the morning. 15 Capsule 1 07/21/2024 10:21 AM EST 07/22/20 24 Active ARIPiprazole 15 MG Oral Tablet (Abilify) Take 1 Tablet by mouth at bedtime. 15 Tablet 1 07/21/2024 10:21 AM EST 07/21/20 24 Active Furosemide 40 MG Oral Tablet (Lasix)Indications :Lymphedema Take 1 Tablet by mouth daily as needed (edema). 07/21/20 24 Active clonazePAM 1 MG Oral Tablet (KlonoPIN) Take 1 Tablet by mouth 2 times a day as needed for Anxiety. 07/28/20 24 Active Montelukast Sodium 10 MG Oral Tablet (Singulair)Indicat ions:Mild persistent asthma without complication Take 1 Tablet by mouth at bedtime. 90 Tablet 3 08/07/19 25 Active Montelukast Sodium 10 MG Oral Tablet (Singulair)Indicat ions:Mild persistent asthma without complication Take 1 Tablet by mouth at bedtime. 30 Tablet 11 05/22/20 24 025 Discontin ued(Refil l) documented as of this encounter (statuses as [...] No, Advance Directive brochure given to patient. Nadeenena 10/07/2008 02/16/2014 Abdominal pain, other specified site [...] Next Due Pneumococcal Conjugate Vacci ne, 20-valent ([id number]) 12/04/2022 Pneumococcal Polysaccharide PPV23 (Pneumovax) 05/06/2011 Seasonal [...] No 03/10/2024 Does the household have a karmanos cancer centerr source of income? (Household - for ages [...] Telephone Encounter - Melissa Cruz PA-C - 08/07/2024 10:54 AM ESTSigned Prescriptions: Disp Refills Montelukast Sodium 10 MG Oral Tablet (Sing*90 Tab*3 Sig: Take 1 Tablet by mouth at bedtime. Authorizing Provider: MELISSA CRUZ * Telephone Encounter - Priscila Terry LPN - 08/07/2024 9:12 AM EST Did you pend patient's preferred pharmacy and medication before forwarding?yes Pharmacy: [facility] #[id number] Pending Prescriptions: Disp Refills Montelukast Sodium 10 MG Oral Tablet (Sin*90 Tab*3 Sig: Take 1 Tablet by mouth at bedtime. Last Visit: 07/29/2024 (in office), Visit date not found (telemedicine) Next Visit: Visit date not found If no future appointments scheduled, and last appointment is greater than a year ago, please schedule patient for a follow-up appointment Last date the medication was ordered: 05/22/2024 Is this request for a controlled substance?No [...] 12:55 PM HGBA1C 5.5 05/12/2019 09:16 AM documented in this encounter Plan of Treatment Upcoming Encounters Date Type Department Care Team (Latest Contact Info) Description 08/08/2024 11:30 AM EST Nurse Only Wound Care, [address] [place] [address] [facility], Nurse Wound Care [address] [place] [address] 08/11/2024 11:20 AM EST Nurse Only Wound Care, [address] [place] [address] [facility], Nurse Wound Care [address] [place] [address] 08/14/2024 11:30 AM EST Nurse Only Wound Care, [address] [place] [address] [facility], Nurse Wound Care [address] [place] [address] 08/15/2024 11:00 AM EST Nurse Only Wound Care, [address] [place] [address] [facility], Nurse Wound Care [address] [place] [address], [place] [address] 08/18/2024 11:20 AM EST Nurse Only Wound Care, [address], [place] [address] [facility], Nurse Wound Care [address] [place] [address], [place] [address] 08/19/2024 11:30 AM EST Nurse Only Wound Care, [address], [place] [address] [facility], Nurse Wound Care [address] [place] [address] 08/22/2024 10:30 AM EST Nurse Only Wound Care, [address] [place] [address] [facility], Nurse Wound Care [address] [place] [address] 08/25/2024 10:30 AM EST Nurse Only Wound Care, [address] [place] [address] [facility], Nurse Wound Care [address] [place] [address] 08/27/2024 10:30 AM EST Nurse Only Wound Care, [address] [place] [address] [facility], Nurse Wound Care [address] [place] [address] 08/29/2024 10:30 AM EST Nurse Only Wound Care, [address] [place] [address] [facility], Nurse Wound Care [address] [place] [address], [place] [address] 09/01/2024 11:00 AM EST Office Visit Wound Care, [address] [place] [address] Yuriy Hilario MD [address] [place] [address] 10/09/2024 12:10 PM EST Hospital Encounter OR [facility], Operating Room, [facility] - 4th Floor [address] [place] [address], [place] [address] Bigg Wetzel MD [address] [facility] [place] [address] 10/09/2024 12:10 PM EST - 10/09/2024 1:11 PM EST Surgery OR [facility], Operating Room, [facility] - 4th Floor [address] [place] [address], [place] [address] Bigg Wetzel MD [address] [place] [address] COLONOSCOPY FLEXIBLE PROXIMAL DIAGNOSTIC 10/24/2024 10:00 AM EDT Office Visit Cardiology, [place] [address] [place] [address] Darnell Boggs DO [address] [place] [address] Scheduled Procedures Name Priority Associated Diagnoses Date/Ti [...] this encounter Medical Devices Implanted Type Area Behavioral Health Technician Device Identifier Shelf Expiration Date Model / Serial / Lot Device Perm Cntrl [id number] - [id number] Implanted:Qty: 2 on 09/27/2015 by Sharda Ruiz, Corey Rucker MD at OR [facility] Uterus [employer] 05/03/2017 [id number] / / [id number] documented as of this encounter Visit Diagnoses Diagnosis Mild persistent asthma without complication Unspecified asthma Screening for colon cancer Special screening for [...] Power of Attor benoit? No Care Teams Marble Machine Tender Relationship Specialty Start Date End Date Melissa Cruz PA-C [address] [facility] [address] [place] [address] PCP - General Physician Landscape Designer 06/02/21 documented as of this encounter
--- OUTSIDE RECORDS SUMMARY | 2024-08-09 23:46 | External Medical Summary | Summary of Care ---
Author Name Unknown Organization [facility] Address [address] [place] [address] Phone [phone] Care Team Providers Care Disability Examiner Name Role Phone CarylTy mansfieldanthony Adam PA-C Primary Care Provider [phone]- [phone] Reason for Visit * Reason Comments Wound Care BLE -- WOUNDS -- DAXA MA Encounter Details Date Type Department Care Team (Late st Contact Info) Description 08/08/2024 11:30 AM EST Nurse Only Wound Care, [facility] [address] [place] [address] [facility], Nurse Wound Care [address] [place] [address] Wound Care (BLE -- WOUNDS -- EDEMA ) Allergies Active Allergy Reactions Criticality Noted Date [...] THE MORNING 90 Tablet 1 4 Active Ferrous Sulfate 28 MG Oral Tablet Take 1 Tablet by mouth every morning. Active busPIRone HCl 10 MG Oral Tablet (Buspar) Take 1 Tablet by mouth in the morning and 1 Tablet before bedtime. 30 Tablet 1 07/21/2024 10:21 AM EST 4 Active lamoTRIgine 100 MG Oral Tablet (LaMICtal) Take 1 Tablet by mouth in the morning and 1 Tablet before bedtime. 30 Tablet 1 07/21/2024 10:21 AM EST 4 Active Pregabalin 150 MG Oral Capsule (Lyrica)Indication s:Neuropathy Take 1 Capsule by mouth in the morning and 1 Capsule at noon and 1 Capsule before bedtime. 45 Capsule 1 07/21/2024 10:21 AM EST 4 Active DULoxetine HCl 60 MG Oral Capsule Delayed Release Particles (Cymbalta) Take 1 Capsule by mouth in the morning. 15 Capsule 1 07/21/2024 10:21 AM EST 4 Active ARIPiprazole 15 MG Oral Tablet (Abilify) Take 1 Tablet by mouth at bedtime. 15 Tablet 1 07/21/2024 10:21 AM EST 4 Active Furosemide 40 MG Oral Tablet (Lasix)Indications :Lymphedema Take 1 Tablet by mouth daily as needed (edema). 4 Active clonazePAM 1 MG Oral Tablet (KlonoPIN) Take 1 Tablet by mouth 2 times a day as needed for Anxiety. 4 Active Vitamin D3 50 MCG (2000 UT) Oral CapsuleIndications :Vitamin D deficiency TAKE 1 CAPSULE BY MOUTH EVERY DAY IN THE MORNING 90 Capsule 5 Active Montelukast Sodium 10 MG Oral Tablet (Singulair)Indicat ions:Mild persistent asthma without complication Take 1 Tablet by mouth at bedtime. 90 Tablet 3 5 Active documented as of this encounter (statuses [...] Next Due Pneumococcal Conjugate Vacci ne, 20-valent ([id number]) 12/04/2022 Pneumococcal Polysaccharide PPV23 (Pneumovax) 05/06/2011 Seasonal [...] on file documented as of this encounter Patient Instructions * Patient Instructions* Megha López, WALLPAPER SCRAPER - 08/08/2024 3:46 PM EST Discharge Instructions: Unna Boot You will be going home with an Unna boot in place. An Unna boot is a dressing and wrap combination that is applied from your foot to your knee. An Unna boot has a special medication in the gauze thatwill help heal paiz or skin sores and protect new skin. There are two kinds of bandages. A white bandage is changed every 1 to 3 days. In most cases, the pink one is changed once a week. You will need to visit your doctor to have the Unna boot changed. Here's what you need to know about home care. Home Care Remember, it is normal to have some drainage from the Unna boot dressing. Dont be alarmed if thedrainage smells bad. The dressing pulls drainage from the wound into the dressing. The odor you smell is from the dressing, not the wound. Dont get your Unna boot wet. Cover the dressing completely with a plastic bag or plastic wrap before taking a shower. Tape the plastic to the skin above and below the dressing. If you want to take a tub bath, leave the limb with the Unna boot on the side of the tub and out ofthe water. Keep the rest of your skin clean. Every day, wash any other paiz or sores not covered by a dressing. Avoid standing or sitting in the same position for more than 30 minutes at a time. Keep your legs elevated as much as possible. Check your toes and leg daily; note any changes in color, temperature or swelling compared to the unwrapped leg. Follow-Up Make a follow-up appointment as directed by our staff. When to Call Your Doctor Call your doctor right away if you have any of the following: Numbness, tingling or pain in the Unna boot leg Open areas or broken skin around the Unna boot edges Severe pain that cannot be relieved Swelling, coldness, or blue-mcleod or purple color in the fingers or toes Unna boot that feels too tight or too loose Unna boot that is damaged or has rough edges that hurt Unna boot that gets wet Drainage from Unna boot dressing that smells different than usual documented in this encounter Nursing Notes * Megha López LPN - 08/08/2024 11:50 AM EST Assisted to sit safely on the exam seating -- aware to not rise unassisted for her safety. Mica presents today with Unna boots to ankles and Filiberto wrap to right leg slid down and resting infold of thigh -- pressing into wound The right medial wound. She stated she did not think any thingof this. We reviewed purpose of Filiberto Wrap to keep Kerlix in upper thigh fold and should this slide she shouldremove and reapply or leave off and continue tx as before. Just Vinegar spray and Kerlix to buttress tissue. Mica stated she had changed dressings to legs on Sun. -- however, the dressings presents as the ones I had applied on Sunday. I did not say anything to her. I did ask her to have a friend help herwith dressing changes as the wounds look worse this date and sites of prior irritation from tape since moisture held against them are open as well. Photo of this taken today. All wounds then legs/ feet washed with soap and water --- towel dried -- Dressings reapplied and encouraged her to change dressings daily to sites not covered by Unna Boot. Reminded of need to use Vinegar spray and Kerlix to upper thigh folds. She agrees to understanding and having all supplies needed to complete her care. Mica also stated having Filiberto Wraps to secure the Kerlix with in. I recommended if able have the Filiberto Wraps applied while in bed or Standing to ensure up around this tissue. Reminded to reapply if the slide as well. Mica stated understanding and will call her friend to help her this weekend. Treatment applied as follows -- BLE -- Foam placed at heel to help provide comfort per her request -- Calmoseptine / Vaseline to jael wound due heavy seeping at sites. Vaseline to wound bed then covered with DSD - Secured with Kerlix -- No tape to skin. Unna Boots applied from toes to knees with tissue Buttressed at knee and ankles to help with shape of leg to aide with Unna boot staying in place. -- Bilateral upper thigh folds -- Kerlix to buttress tissue then Filiberto wrap around this tissue to secure and keep in place again reminded if slides please reapply or remove if no help is available. Assisted with socks and shoes and to safely transfer from seating to w/c then propelled to check out. Aware to call with any questions or concerns. Review of Unna safety was reviewed as well -- Discharge Instructions: Unna Boot You will be going home with an Unna boot in place. An Unna boot is a dressing and wrap combination that is applied from your foot to your knee. An Unna boot has a special medication in the gauze thatwill help heal paiz or skin sores and protect new skin. There are two kinds of bandages. A white bandage is changed every 1 to 3 days. In most cases, the pink one is changed once a week. You will need to visit your doctor to have the Unna boot changed. Here's what you need to know about home care. Home Care Remember, it is normal to have some drainage from the Unna boot dressing. Dont be alarmed if thedrainage smells bad. The dressing pulls drainage from the wound into the dressing. The odor you smell is from the dressing, not the wound. Dont get your Unna boot wet. Cover the dressing completely with a plastic bag or plastic wrap before taking a shower. Tape the plastic to the skin above and below the dressing. If you want to take a tub bath, leave the limb with the Unna boot on the side of the tub and out ofthe water. Keep the rest of your skin clean. Every day, wash any other paiz or sores not covered by a dressing. Avoid standing or sitting in the same position for more than 30 minutes at a time. Keep your legs elevated as much as possible. Check your toes and leg daily; note any changes in color, temperature or swelling compared to the unwrapped leg. Follow-Up Make a follow-up appointment as directed by our staff. When to Call Your Doctor Call your doctor right away if you have any of the following: Numbness, tingling or pain in the Unna boot leg Open areas or broken skin around the Unna boot edges Severe pain that cannot be relieved Swelling, coldness, or blue-mcleod or purple color in the fingers or toes Unna boot that feels too tight or too loose Unna boot that is damaged or has rough edges that hurt Unna boot that gets wet Drainage from Unna boot dressing that smells different than usual documented in this encounter Plan of Treatment Upcoming Encounters Date Type Department Care Team (Latest Contact Info) Description 08/11/2024 11:20 AM EST [address] Care, [address] [address] [facility], Nurse Wound Care [address] [place] [address] [place] [address] 08/14/2024 11:30 AM EST Nurse Only Wound Care, [address] [place] [address] [facility], Nurse Wound Care [address] [place] [address] 08/15/2024 11:00 AM EST Nurse Only Wound Care, [facility] [address] [facility] [place] [place] [address] [facility], Nurse Wound Care [address] [place] [address] 08/18/2024 11:20 AM EST Nurse Only Wound Care, [facility] [address] [facility] [place] [address] [facility], Nurse Wound Care [address] [place] [address] 08/19/2024 11:30 AM EST Nurse Only Wound Care, [address] [place] [address] [facility], Nurse Wound Care [address] [place] [address] 08/22/2024 10:30 AM EST Nurse Only Wound Care, [address] [place] [address] [facility], Nurse Wound Care [address] [place] [address] 08/25/2024 10:30 AM EST Nurse Only Wound Care, [address] [place] [address] [facility], Nurse Wound Care [address] [place] [address] 08/27/2024 10:30 AM EST Nurse Only Wound Care, [address] [place] [address] [facility], Nurse Wound Care [address] [place] [address] 08/29/2024 10:30 AM EST Nurse Only Wound Care, [address] [place] [address] [facility], Nurse Wound Care [address] [place] [address] 09/01/2024 11:00 AM EST Office Visit Wound Care, [facility] [address] [facility] [place] [address] Yuriy Hilario MD [address] [place] [address] 10/09/2024 12:10 PM EST Hospital Encounter OR [facility], Operating Room, [facility] - 4th Floor [address] [place] [address] Bigg Wetzel MD [address] [place] [address] 10/09/2024 12:10 PM EST - 10/09/2024 1:11 PM EST Surgery OR [facility], Operating Room, [facility] - 4th Floor [address] [place] [address] Bigg Wetzel MD [address] [place] [address] COLONOSCOPY FLEXIBLE PROXIMAL DIAGNOSTIC 10/24/2024 10:00 AM EDT Office Visit Cardiology, [place] [address] [place] [address] Darnell Boggs DO [address] [facility] [place] [address] Scheduled Procedures Name Priority Associated Diagnoses Date/Ti [...] this encounter Medical Devices Implanted Type Area Video Control Engineer Device Identifier Shelf Expiration Date Model / Serial / Lot Device Perm Cntrl [id number] - [id number] Implanted:Qty: 2 on 09/27/2015 by Corey Robin Jr., MD at OR [facility] Uterus [employer] 05/03/2017 [id number] / / [id number] documented as of this encounter Visit Diagnoses Diagnosis Multiple open wounds of lower leg, unspecified laterality, subsequent encounter- Primary Lymphedema Other lymphedema Class 3 severe obesity due to excess calories with serious comorbidity and body mass index (BMI) greater than or equal to 70 in adult (HCC) Irritant contact dermatitis due to other body fluid Screening for colon cancer Special screening for [...] Power of Attor benoit? No Care Teams Disability Examiner Relationship Specialty Start Date End Date Melissa Cruz PA-C [address] [facility] [address] [place] [address] PCP - General Physician Loan Review Analyst 06/02/21 documented as of this encounter
--- OUTSIDE RECORDS SUMMARY | 2024-08-09 23:47 | External Medical Summary | Summary of Care ---
Author Name Unknown Organization [facility] Address [address] [place] [address] Phone [phone] Care Team Providers Care Lard Refiner Name Role Phone Melissa Cruz PA-C Primary Care Provider +1- [phone] Reason for Visit * Reason Onset Date Comments Advice 08/01/2024 Encounter Details Date Type Department Care Team (Late st Contact Info) Description 08/01/2024 Telephone [facility] [address] [place] [address] Melissa Cruz PA-C [address] [place] [address] Advice Allergies Active Allergy Reactions Criticality Noted Date Comments Aspirin 01/27/2014 Increased bleeding documented as of this encounter (statuses as of 08/01/2024) Medications traZODone (DESYREL) 50 MG Tablet Take [...] IN THE MORNING 90 Capsule 4 Active Montelukast Sodium 10 MG Oral Tablet (Singulair)Indicat ions:Mild persistent asthma without complication Take 1 Tablet by mouth at bedtime. 30 Tablet 11 4 Active Ferrous Sulfate 28 MG Oral [...] 15 Tablet 1 07/21/2024 10:21 AM EST Active Furosemide 40 MG Oral Tablet (Lasix)Indications :Lymphedema Take 1 Tablet by mouth daily as needed (edema). 4 Active clonazePAM 1 MG Oral Tablet (KlonoPIN) Take 1 Tablet by mouth 2 times a day as needed for Anxiety. 4 Active documented as of this encounter (statuses as of 08/01/2024) Active Problems Problem Noted Date Diagnosed Date [...] as of this encounter (statuses as of 08/01/2024) Resolved Problems Problem Noted Date Diagnosed Date [...] as of this encounter (statuses as of 08/01/2024) Immunizations Name Administration Dates Next Due Pneumococcal Conjugate Vacci ne, 20-valent ([id number]) 12/04/2022 Pneumococcal Polysaccharide PPV23 (Pneumovax) 05/06/2011 Seasonal [...] encounter Miscellaneous Notes * Telephone Encounter - Martine Flores CCMA - 08/01/2024 12:28 PM EST T/C to room mate, she voiced understanding and states that Mica does see a psychiatrist, she will talk with Mica and see what route she'd like to tale with getting the proper help she needs. * Telephone Encounter - Melissa Cruz PA-C - 08/01/2024 12:21 PM EST With Psychiatric admission and medication adjustment it is recommended for to see her Psychiatrist or go back to the hospital as they had encouraged her to do if she needed. * Telephone Encounter - Martine Flores CCMA - 08/01/2024 10:51 AM EST T/C to room mate, she states that Mica is on Cymbalta and Lyrica, was adjusted or prescribed during 7A admission. Since being discharge, states that patient is just wanting to sleep, could be the medication, could be her mood. Pt was to see the wound clinic today for her legs, patient missed about because she just simply never made arrangements to get to her appointment, room mate encourages her to keep her appointments and attend them to get the proper care for her legs. Room mate states that the patient is also not caring for her personal well being/hygiene, when room mate tries to talk to her about this she just stares blankly, and says nothing. When asking Mica what is making her f eel this way she cannot pin point it exactly. Mica has no local family. The 7A team discharged her after 2 weeks due to insurance coverage, they told her/room mate that if she needed she could come back for reevaluation for another admit. Please review and advise. Please note when you call back, call room mate Deonna, she is her emergency contact. Routing to PCP and Berlin Coleman whom did the hospital discharge follow-up. * Telephone Encounter - Cara Mae OSA - 08/01/2024 10:17 AM EST Deonna pts room mate calling in asking for a call back from a nurse, states that she has concernsregarding her mentality state states that she was admitted to the 7th floor the other day and she doesn't feel like it helped, she states she needs to speak with someone as she is having concerns documented in this encounter Plan of Treatment Upcoming Encounters Date Type Department Care Team (Latest Contact Info) Description 08/04/2024 11:00 AM EST Office Visit Wound Care, [address] [place] [address] Yuriy Hilario MD [address] [place] [address] 10/09/2024 12:10 PM EST Hospital Encounter OR [facility], Operating Room, [facility] - 4th Floor [address] [place] [address] Bigg Wetzel MD [address] [place] [address] 10/09/2024 12:10 PM EST - 10/09/2024 1:11 PM EST Surgery OR [facility], Operating Room, [facility] - 4th Floor [address] [place] [address] Bigg Wetzel MD [address] [place] [address] COLONOSCOPY FLEXIBLE PROXIMAL DIAGNOSTIC 10/24/2024 10:00 AM EDT Office Visit [facility]iology[facility] [address] [place] [address] Darnell Boggs DO [address] [place] [address] Scheduled Procedures Name Priority Associated Diagnoses Date/Ti [...] this encounter Medical Devices Implanted Type Area Bacteriologist Dairy Device Identifier Shelf Expiration Date Model / Serial / Lot Device Perm Cntrl [id number] - [id number] Implanted:Qty: 2 on 09/27/2015 by Sharda Ruiz, Corey Rucker MD at OR [facility] Uterus [employer] 05/03/2017 [id number] / / [id number] documented as of this encounter Advance Directives [...] Power of Attor benoit? No Care Teams Lard Refiner Relationship Specialty Start Date End Date Melissa Cruz PA-C [address] [address] [place] [address] PCP - General Physician Senior Water/Wastewater Engineer 06/02/21 documented as of this encounter
--- OUTSIDE RECORDS SUMMARY | 2024-08-09 23:47 | External Medical Summary | Summary of Care ---
Author Name Unknown Organization [facility] Address [address] [place] [address] Phone [phone] Care Team Providers Care Fashion Buyer Name Role Phone Carylshyla Melissa Adam PA-C Primary Care Provider +1- [phone] Reason for Visit * Reason Onset Date Comments Appointment 07/21/2024 Encounter Details Date Type Department Care Team (Late st Contact Info) Description 07/21/2024 Telephone General Surgery Marilee Cote [address] Juan Carlos [address] [place] [address] Yuriy Hilario MD [address] [place] [address] Appointment Allergies Active Allergy Reactions Criticality Noted Date Comments Aspirin 01/27/2014 Increased bleeding documented as of this encounter (statuses as of 07/22/2024) Medications traZODone (DESYREL) 50 MG Tablet Take [...] IN THE MORNING 90 Capsule 4 Active Clotrimazole-Betam ethasone 1-0.05 % External CreamIndications:M ultiple open wounds of lower leg, unspecified laterality, subsequent encounter Apply topically to affected area 2 times a day. Apply to lower legs once daily at time of dressing change. Avoid applying to deep wounds. 45 g 11 4 Active Montelukast Sodium 10 MG Oral [...] mouth daily as needed (edema). 4 Active documented as of this encounter (statuses as of 07/22/2024) Active Problems Problem Noted Date Diagnosed Date Bipolar disorder, current episode depressed, mod erate [...] as of this encounter (statuses as of 07/22/2024) Resolved Problems Problem Noted Date Diagnosed Date [...] as of this encounter (statuses as of 07/22/2024) Immunizations Name Administration Dates Next Due Pneumococcal Conjugate Vacci ne, 20-valent ([id number]) 12/04/2022 Pneumococcal Polysaccharide PPV23 (Pneumovax) 05/06/2011 Seasonal [...] No 03/10/2024 Does the household have a [facility] source of income? (Household - for ages [...] encounter Miscellaneous Notes * Telephone Encounter - Kalyn Rivera OSA - 07/22/2024 10:26 AM EST I spoke with the patient and the wound nurse visit is scheduled 07/25/24 at 10:30 am. * Telephone Encounter - Anna Zafar OSA - 07/22/2024 9:49 AM EST Pt called back would like to she a nurse appt for 07/23/24 tried the office no answer please call pt back to aly * Telephone Encounter - Kalyn Rivera OSA - 07/22/2024 8:12 AM EST LMOM for the patient to call back to schedule a return wound appointment with Dr. Hilario. * Telephone Encounter - Kalyn Rivera OSA - 07/21/2024 1:47 PM EST LMOM for the patient to call back to schedule a return wound appointment with Dr. Hilario. * Telephone Encounter - Magdalena Ko OSA - 07/21/2024 1:25 PM EST Pt needs to reschedule for a follow up with Dr. Hilario. Please advise and reach out to patient. [phone] JORGE A Yuen documented in this encounter Plan of Treatment Upcoming Encounters Date Type Department Care Team (Late st Contact Info) Description 07/23/2024 8:00 AM EST Telemedicine [address] [phone] Magdalena Lubin [facility] [address] [place] [address] 07/25/2024 10:30 AM EST Nurse Only Wound Care, [address] [address] [facility], Nurse Wound Care [address] [place] [address] 07/25/2024 12:20 PM EST [facility] [address] [place] [address] Melissa Cruz PA-C [address] [place] [address] 07/28/2024 11:00 AM EST Nurse Only Wound Care, [address] [address] [facility], [facility] [address] [facility] [address] 07/29/2024 11:00 AM EST Appointment Cardiac Studies, [address] [place] [address] 08/04/2024 11:00 AM EST Office Visit Wound Care, [address] [address] Yuriy Hilario MD [address] [place] [address] 10/09/2024 12:10 PM EST Hospital Encounter OR [facility], Operating Room, [facility] - 4th Floor [address] [place] [address] [place] [phone] Bigg Wetzel MD [address] [facility] [place] [address] 10/09/2024 12:10 PM EST - 10/09/2024 1:11 PM EST Surgery OR [facility], Operating Room, [facility] - 4th Floor [address] [place] [address] [place] [phone] Bigg Wetzel MD [address] [facility] [place] [address] COLONOSCOPY FLEXIBLE PROXIMAL DIAGNOSTIC 10/24/2024 10:00 AM EDT Office Visit Cardiology, [address] [place] [address] Darnell Boggs DO [address] [facility] [place] [address] Scheduled Procedures Name Priority Associated Diagnoses Date/Ti me COLONOSCOPY FLEXIBLE PROXIMAL DIAGNOSTIC Screening for colon cancer 10/09/2024 12:10 PM EST Health Maintenance Due Date Last Done Comments Hepatitis B Vaccine (1 of 3 - 19+ 3-dose series) 01/12/1995 HPV/Co-Test 01/12/2006 Mammogram 06/06/2019 06/06/2018, 09/18/2016 Cologuard 01/12/2021 Colonoscopy 01/12/2021 12/02/2008 Colorectal Cancer Screening 01/12/2021 Fecal Occult Blood Test 01/12/2021 Sigmoidoscopy 01/12/2021 Cervical Cancer Screening 01/11/2024 Pap Smear 01/11/2024 01/10/2021, /11/2013, 02/10/2009 COVID-19 Vaccine ( season) 2024 DTap/Tdap Vaccines (2 - Td or Tdap) 01/20/2025 01/20/2015 Depression Monitoring 07/21/2025 07/21/2024 , 07/09/2024, 03/10/2024 Diabetes Screening 07/15/2027 07/15/2024, 1 09/13/2023, 07/09/2024, Additional history exists Lipid Panel 07/09/2029 07/09/2024, 05/06, 06/02/2021, Additional history exists Pneumococcal Vaccine: Pediatrics (0 to 5 Years) and At-Risk Patients (6 to 64 Years) Completed 12/04/2022, 05/06/2011 Influenza Vaccine (FLU shot) Completed , 06/25/2023, 06/05/2022, Additional history exists HPV (Gardasil) Vaccine Aged Out No lo nger eligible based on patient's age to complete this topic MENINGOCOCCAL (MENACTRA/MENVEO) Aged Out No longer eligible based on patient's age to complete this topic documented as of this encounter Medical Devices Implanted Type Area Manager Call Device Identifier Shelf Expiration Date Model / Serial / Lot Device Perm Cntrl [id number] - [id number] Implanted:Qty: 2 on 09/27/2015 by Sharda Ruiz, Corey Rucker MD at OR [facility] Uterus [employer] 05/03/2017 [id number] / / [id number] documented as of this encounter Advance Directives [...] Power of Attor benoit? No Care Teams Fashion Buyer Relationship Specialty Start Date End Date Melissa Cruz PA-C [address] [facility] [address] [facility] [place] [address] PCP - General Physician Board Certified Family Physician 06/02/21 documented as of this encounter
--- OUTSIDE RECORDS SUMMARY | 2024-08-09 23:47 | External Medical Summary | Summary of Care ---
Author Name Unknown Organization [facility] Address [address] [place] [address] Phone [phone] Care Team Providers Care Radiation Control Technician Name Role Phone CarylTy mansfieldanthony Downing PA-C Primary Care Provider +1- [phone] Reason for Visit * Reason Comments Wound Care BLE -- WOUNDS Encounter Details Date Type Department Care Team ([facility] Contact Info) Description 07/28/2024 11:00 AM EST Nurse Only Wound Care, [facility] [address] [place] [address] [facility], Nurse Wound Care [address] [place] [address] Wound Care (BLE -- WOUNDS ) Allergies Active Allergy Reactions Criticality Noted Date Comments Aspirin 01/27/2014 Increased bleeding documented as of this encounter (statuses as of 07/28/2024) Medications traZODone (DESYREL) 50 MG Tablet Take [...] THE MORNING 90 Capsule 04/23/20 24 Active Clotrimazole-Betam ethasone 1-0.05 % External CreamIndications:M ultiple open wounds of lower leg, unspecified laterality, subsequent encounter Apply topically to affected area 2 times a day. Apply to lower legs once daily at time of dressing change. Avoid applying to deep wounds. 45 g 11 05/19/20 24 Active Additional Information Patient not taking.Reported on 07/28/2024 Montelukast Sodium 10 MG Oral Tablet (Singulair)Indicat ions:Mild persistent asthma without complication Take 1 Tablet by mouth at bedtime. 30 Tablet 11 05/22/20 24 Active Ferrous Sulfate 28 MG Oral [...] Capsule 1 07/21/2024 10:21 AM EST 07/21/20 Active DULoxetine HCl 60 MG Oral Capsule Delayed Release Particles (Cymbalta) Take 1 Capsule by mouth in the morning. 15 Capsule 1 07/21/2024 10:21 AM EST 07/22/20 Active ARIPiprazole 15 MG Oral Tablet (Abilify) Take 1 Tablet by mouth at bedtime. 15 Tablet 1 07/21/2024 10:21 AM EST 07/21/20 Active Furosemide 40 MG Oral Tablet (Lasix)Indications :Lymphedema Take 1 Tablet by mouth daily as needed (edema). 07/21/20 Active documented as of this encounter (statuses as of 07/28/2024) Active Problems Problem Noted Date Diagnosed Date [...] as of this encounter (statuses as of 07/28/2024) Resolved Problems Problem Noted Date Diagnosed Date [...] as of this encounter (statuses as of 07/28/2024) Immunizations Name Administration Dates Next Due Pneumococcal Conjugate Vacci ne, 20-valent ([id number]) 12/04/2022 Pneumococcal Polysaccharide PPV23 (Pneumovax) 05/06/2011 Seasonal [...] encounter Patient Instructions * Patient Instructions* Megha López', MEDICAL EDUCATION MANAGER - 07/28/2024 11:29 AM EST Discharge Instructions: Unna Boot You will [...] Nursing Notes * Megha López LPN - 07/28/2024 11:27 AM EST Images from the original note were not included. Assisted to sit safely on exam seating -- aware to not rise unassisted for her safety. Unna boots have slid to mid horn bilaterally . Reminded Mica she should have removed once they slide related to risk of tissue damage under wrap. We then did review of Unna Boot safety as well. Other sites have dressings over all but Anterior Left knee this is dry with scab to surface. Right upper thigh a little more irritated this week-- reminded of need for Vinegar and buttress material. She did state understanding and is doing bilaterally at this time. She said sometimes her fluff comes out and it can be hard to keep in place. She has tried tape and will do this again sparingly as to not irritate her skin as well. Unna boots and dressings removed -- all wounds then legs - toes washed with soap and water - towel dried tolerated well. Wounds to Right medial knee tissue present with increased slough to site-- Consulted with ROSSANA Neumann and will place Saline WTD in form of 4X4s then ABDs to th sites at knee. .This was secured with Kerlixas well. Mica was educated as to how to apply dressing and why it is needed at thi time. She didvoice understanding. All other wounds will continue to do skim coat of Vaseline then DSD to protect. Unna Boots applied to BLE -- Right leg to knee only and left just above her knee as prior. Surgilast #5 to cover Unna boots. Right thig was then wrapped in 6 " Filiberto wrap to secure Kerlix into skin fold to aide with healing wounds of this area. Mica returns on Sunday will monitor results at that time. Will alert to recommended change in treatment via [facility] text. The following information was reviewed as well - Discharge Instructions: Unna Boot You will be [...] Department Care Team (Latest Contact Info) Description 07/29/2024 11:00 AM EST Appointment Cardiac Studies, [address] [place] [address] 07/29/2024 11:00 AM EST Office Visit [facility] [address] [place] [address] [place] Coleman CRNP [address] [place] [address] 08/04/2024 11:00 AM EST Office Visit Wound Care, [address] [place] [address] Yuriy Hilario MD [address] [place] [address] 10/09/2024 12:10 PM EST Hospital Encounter [facility], Operating Room, [facility] - 4th Floor [address] [place] [address] Bigg Wetzel MD [address] [place] [address] 10/09/2024 12:10 PM EST - 10/09/2024 1:11 PM EST Surgery OR [facility], Operating Room, [facility] - 4th Floor [address] [place] [address] Bigg Wetzel MD [address] [place] [address] COLONOSCOPY FLEXIBLE PROXIMAL DIAGNOSTIC 10/24/2024 10:00 AM EDT Office Visit [facility] [address] [place] [address] Darnell Boggs DO [address] [place] [address] Scheduled Procedures Name Priority Associated Diagnoses Date/Ti [...] 10/05, 02/10/2009 COVID-19 Vaccine ( season) 2024 DTap/Tdap [...] this encounter Medical Devices Implanted Type Area Cardiology Technologist Device Identifier Shelf Expiration Date Model / Serial / Lot Device Perm Cntrl [id number] - [id number] Implanted:Qty: 2 on 09/27/2015 by Sharda Ruiz, Corey Rucker MD at OR [facility] Uterus [employer] 05/03/2017 [id number] / / [id number] documented as of this encounter Visit Diagnoses [...] patient have Health Care Power of Attor benoti? No * Full Code Date Activated Date [...] Power of Attor benoit? No Care Teams Radiation Control Technician Relationship Specialty Start Date End Date Melissa Cruz PA-C [address] [address] [place] [address] PCP - General Physician Heavy Mobile Equipment Operator 06/02/21 documented as of this encounter
--- OUTSIDE RECORDS SUMMARY | 2024-08-09 23:47 | External Medical Summary | Summary of Care ---
Author Name Unknown Organization [facility] Address [address] [place] [address] Phone [phone] Care Team Providers Care Coffee Shop Manager Name Role Phone Melissa Cruz PA-C Primary Care Provider +1- [phone] Encounter Details Date Type Department Care Team (Late st Contact Info) Description 04/23/[address] [place] [address] Melissa Cruz PA-C [address] [place] [address] Allergies Active Allergy Reactions Criticality Noted Date Comments Aspirin 01/27/2014 Increased bleeding documented as of this encounter (statuses as of 07/23/2024) Medications traZODone (DESYREL) 50 MG Tablet Take [...] DAY 90 Tablet 1 03/17/20 24 Active clonazePAM 1 MG Oral Tablet (KlonoPIN) 08/12/19 22 024 Discontinued ARIPiprazole 15 MG Oral Tablet (Abilify) TAKE 1 TABLET BY MOUTH EVERYDAY AT BEDTIME 11/09/19 22 024 Discontinued lamoTRIgine 100 MG Oral Tablet (LaMICtal) 12/05/19 22 024 Discontinued buPROPion HCl ER (XL) 300 MG Oral Tablet Extended Release 24 Hour (Wellbutrin XL) TAKE 1 TABLET BY MOUTH EVERY DAY IN THE MORNING 10/07/19 22 024 Discontinued One-A-Day Womens 50 Plus Oral Tablet Take by mouth. 024 Discontinued Furosemide 40 MG Oral Tablet (Lasix)Indication s:Lymphedema Take 1 Tablet by mouth in the morning. 90 Tablet 2 07/26/20 23 024 Discontinued Silver sulfADIAZINE 1 % External Cream (Silvadene) Apply to open wounds daily. 400 g 1 02/08/20 24 024 Discontinued Diclofenac Sodium 1 % External Gel (Voltaren) Apply topically to affected area 4 times a day. 350 g 1 03/06/20 24 024 Discontinued Cyclobenzaprine HCl 10 MG Oral Tablet (Flexeril)Indicat ions:Chronic left-sided low back pain with left-sided sciatica Take 1 Tablet by mouth 3 times a day as needed for Muscle spasms. 42 Tablet 03/10/20 24 024 Discontinued Nystatin 083343 UNIT/GM External Powder (Nystop) Apply topically to affected area 3 times a day. Apply to skin folds of both lower legs at time of dressing change or daily. 60 g 3 04/16/20 24 024 Discontinued documented as of this encounter (statuses as of 07/23/2024) Active Problems Problem Noted Date Diagnosed Date [...] as of this encounter (statuses as of 07/23/2024) Resolved Problems Problem Noted Date Diagnosed Date [...] as of this encounter (statuses as of 07/23/2024) Immunizations Name Administration Dates Next Due Pneumococcal Conjugate Vacci ne, 20-valent ([id number]) 12/04/2022 Pneumococcal Polysaccharide PPV23 (Pneumovax) 05/06/2011 Seasonal [...] 03/10/2024 Does the household have a re gular source of income? (Household - for ages [...] encounter Miscellaneous Notes * Telephone Encounter - Meenu López OSA - 04/23/2024 12:12 PM EDT Pt needs scheduled for first available video visit. Please call pt with appointment time.. Thank You documented in this encounter Plan of Treatment Upcoming Encounters Date Type Department Care Team (Latest Contact Info) Description 07/25/2024 10:30 AM EST Nurse Only Wound Care, [address] [address] [facility], Nurse Wound Care [address] [place] [address] 07/28/2024 11:00 AM EST Nurse Only Wound Care, [address] [address] [facility], Nurse Wound Care [address] [place] [address] 07/29/2024 11:00 AM EST Appointment Cardiac Studies, [address] [address] 07/29/2024 11:00 AM EST Office Visit [facility] [address] [place] [address] [place] Coleman CRNP [address] [place] [address] 08/04/2024 11:00 AM EST Office Visit Wound Care, [facility] [address] [facility] [place] [address] Yuriy Hilario MD [address] [place] [address] 10/09/2024 12:10 PM EST Hospital Encounter OR [facility], Operating Room, [facility] - 4th Floor [address] [place] [address] Bigg Wetzel MD [address] [place] [address] 10/09/2024 12:10 PM EST - 10/09/2024 1:11 PM EST Surgery OR [facility], Operating Room, [facility] Floor [address] [facility] [place] [address] Bigg Wetzel MD [address] [place] [address] COLONOSCOPY FLEXIBLE PROXIMAL DIAGNOSTIC 10/24/2024 10:00 AM EDT Office Visit Cardiology, [place] [address] [facility] [place] [address] Darnell Boggs DO [address] [facility] [place] [address] Scheduled Procedures Name Priority Associated Diagnoses Date/Ti [...] this encounter Medical Devices Implanted Type Area Senior Product Analyst Device Identifier Shelf Expiration Date Model / Serial / Lot Device Perm Cntrl [id number] - [id number] Implanted:Qty: 2 on 09/27/2015 by Sharda Ruiz, Corey Rucker MD at OR [facility] Uterus [employer] 05/03/2017 [id number] / / [id number] documented as of this encounter Additional Health [...] Power of Attor benoit? No Care Teams Coffee Shop Manager Relationship Specialty Start Date End Date Melissa Cruz PA-C [address] [address] [place] [address] PCP - General Physician Investment Accountant 06/02/21 documented as of this encounter
--- OUTSIDE RECORDS SUMMARY | 2024-08-09 23:47 | External Medical Summary | Summary of Care ---
Author Name Unknown Organization [facility] Address [address] [place] [address] Phone [phone] Care Team Providers Care Bundles Hanger Name Role Phone CarylMelissa mansfield Chang FONSECA Primary Care Provider +1- [phone] Reason for Visit * Reason Onset Date Comments Medical Questions 06/17/2024 Encounter Details Date Type Department Care Team (Late st Contact Info) Description 06/17/2024 Telephone Wound Care, [facility] [address] [place] [address] [facility], Nurse Wound Care [address] [place] [address] Medical Questions Allergies Active Allergy Reactions Criticality Noted Date Comments Aspirin 01/27/2014 Increased bleeding documented as of this encounter (statuses as of 07/29/2024) Medications traZODone (DESYREL) 50 MG Tablet Take 1 Tab by mouth at bedtime as needed, may repeat once for Sleep. 30 Tab 018 Active Albuterol Sulfate HFA 108 (90 Base) MCG/ACT Inhalation Aerosol SolutionIndicatio ns:Mild persistent asthma without complication 2 puffs every 4 hours as needed for shortness of breath/cough 18 g 2 022 Active Fluticasone Propionate 50 MCG/ACT Nasal Suspension (Flonase)Indicati ons:Acute maxillary sinusitis, recurrence not specified SPRAY 2 SPRAYS INTO EACH NOSTRIL IN THE MORNING 16 mL 023 Active Omeprazole 20 MG Oral Capsule Delayed Release (PriLOSEC)Indicat ions:Gastroesopha geal reflux disease without esophagitis TAKE 1 CAPSULE BY MOUTH EVERY DAY 90 Capsule 3 024 Active Diclofenac Sodium 75 MG Oral Tablet Delayed Release (Voltaren)Indicat ions:Primary osteoarthritis of one knee, right TAKE BY MOUTH 1 TABLET IN THE MORNING AND 1 TABLET AT NOON AND 1 TABLET BEFORE BEDTIME. WITH FOOD.. 90 Tablet 5 024 Active Cetirizine HCl 10 MG Oral Tablet (ZyrTEC)Indicatio ns:Mild persistent asthma without complication TAKE 1 TABLET BY MOUTH EVERY DAY 90 Tablet 1 024 Active Potassium Chloride ER 10 MEQ Oral Tablet Extended ReleaseIndication s:Edema, unspecified type TAKE 1 TABLET BY MOUTH EVERY DAY IN THE MORNING 90 Tablet 1 024 Active Vitamin D3 50 MCG (2000 UT) Oral CapsuleIndication s:Vitamin D deficiency TAKE 1 CAPSULE BY MOUTH EVERY DAY IN THE MORNING 90 Capsule 024 Active Clotrimazole-Beta methasone 1-0.05 % External CreamIndications: Multiple open wounds of lower leg, unspecified laterality, subsequent encounter Apply topically to affected area 2 times a day. Apply to lower legs once daily at time of dressing change. Avoid applying to deep wounds. 45 g 11 024 Active Additional Information Patient not taking.Reported on 07/28/2024 Montelukast Sodium 10 MG Oral Tablet (Singulair)Indica tions:Mild persistent asthma without complication Take 1 Tablet by mouth at bedtime. 30 Tablet 11 024 Active clonazePAM 1 MG Oral Tablet (KlonoPIN) 2023 Discontinued ARIPiprazole 15 MG Oral Tablet (Abilify) TAKE 1 TABLET BY MOUTH EVERYDAY AT BEDTIME 2023 Discontinued lamoTRIgine 100 MG Oral Tablet (LaMICtal) 2023 Discontinued buPROPion HCl ER (XL) 300 MG Oral Tablet Extended Release 24 Hour (Wellbutrin XL) TAKE 1 TABLET BY MOUTH EVERY DAY IN THE MORNING 2023 Discontinued One-A-Day Womens 50 Plus Oral Tablet Take by mouth. 2023 Discontinued Furosemide 40 MG Oral Tablet (Lasix)Indication s:Lymphedema Take 1 Tablet by mouth in the morning. 90 Tablet 2 023 2023 Discontinued Silver sulfADIAZINE 1 % External Cream (Silvadene) Apply to open wounds daily. 400 g 1 024 2023 Discontinued Diclofenac Sodium 1 % External Gel (Voltaren) Apply topically to affected area 4 times a day. 350 g 1 024 2023 Discontinued Cyclobenzaprine HCl 10 MG Oral Tablet (Flexeril)Indicat ions:Chronic left-sided low back pain with left-sided sciatica Take 1 Tablet by mouth 3 times a day as needed for Muscle spasms. 42 Tablet 2023 Discontinued Nystatin 925999 UNIT/GM External Powder (Nystop) Apply topically to affected area 3 times a day. Apply to skin folds of both lower legs at time of dressing change or daily. 60 g 3 024 2023 Discontinued Pregabalin 150 MG Oral Capsule (Lyrica)Indicatio ns:Neuropathy TAKE 1 CAPSULE BY MOUTH IN THE MORNING AT NOON IN THE EVENING AND BEFORE BEDTIME 120 Capsule 1 024 2023 Discontinued Doxycycline Monohydrate 100 MG Oral Capsule Take 1 Capsule by mouth in the morning and 1 Capsule before bedtime. Do all this for 10 days. 20 Capsule 2023 Discontinued Amoxicillin-Pot Clavulanate 875-125 MG Oral Tablet (Augmentin) Take 1 Tablet by mouth in the morning and 1 Tablet before bedtime. Do all this for 10 days. 20 Tablet 2023 Discontinued documented as of this encounter (statuses as of 07/29/2024) Active Problems Problem Noted Date Diagnosed Date [...] as of this encounter (statuses as of 07/29/2024) Resolved Problems Problem Noted Date Diagnosed Date [...] as of this encounter (statuses as of 07/29/2024) Immunizations Name Administration Dates Next Due Pneumococcal Conjugate Vacci ne, 20-valent ([id number]) 12/04/2022 Pneumococcal Polysaccharide PPV23 (Pneumovax) 05/06/2011 Seasonal [...] encounter Miscellaneous Notes * Telephone Encounter - Anaid Brady OSA - 06/17/2024 2:03 PM EST Pt roommate Deonna calling requesting a call back has a few medical questions regarding wound care for pt Please advise Thank you Please call [phone] * Telephone Encounter - Megha López LPN - 06/17/2024 11:21 AM EST Noted as rescheduled from 10:30 AM this Date to 2 PM this date. * Telephone Encounter - Anaid Brady OSA - 06/17/2024 8:10 AM EST Pt calling in she had an appt today 06/17 in [place] she forgot to set up a ride to get there sheis wondering if there is anything tomorrow 06/18 if not she will wait till Sunday to come in Please advise Thank you documented in this encounter Plan of Treatment Upcoming Encounters Date Type Department Care Team (Latest Contact Info) Description 07/29/2024 11:00 AM EST [facility] [address] [place] [address] [place] Coleman CRNP [address] [place] [address] 08/04/2024 11:00 AM EST Office Visit Wound Care, [facility] 400 [facility] [place] [address] Yuriy Hilario MD [address] [place] [address] [place] [address] 10/09/2024 12:10 PM EST Hospital Encounter OR [facility], Operating Room, [facility] - 4th Floor [address] [address] Bigg Wetzel MD [address] [place] [address] 10/09/2024 12:10 PM EST - 10/09/2024 1:11 PM EST Surgery OR [facility], Operating Room, [facility] - 4th Floor [address] [place] [address] Bigg Wetzel MD [address] [place] [address] COLONOSCOPY FLEXIBLE PROXIMAL DIAGNOSTIC 10/24/2024 10:00 AM EDT Office Visit [facility] [address] [place] [address] Darnell Boggs DO [address] [place] [address] Scheduled Procedures Name Priority Associated Diagnoses Date/Ti [...] this encounter Medical Devices Implanted Type Area Mud Grinder Device Identifier Shelf Expiration Date Model / Serial / Lot Device Perm Cntrl [id number] - [id number] Implanted:Qty: 2 on 09/27/2015 by Sharda Ruiz, Corey Rucker MD at OR [facility] Uterus [employer] 05/03/2017 [id number] / / [id number] documented as of this encounter Additional Health [...] Power of Attor benoit? No Care Teams Bundles Hanger Relationship Specialty Start Date End Date Melissa Cruz PA-C [address] [address] [place] [address] PCP - General Physician Pest Control Service Technician 06/02/21 documented as of this encounter
--- OUTSIDE RECORDS SUMMARY | 2024-08-09 23:47 | External Medical Summary | Summary of Care ---
Author Name Unknown Organization [facility] Address [address] [place] [address] Phone [phone] Care Team Providers Care Iron Bender Name Role Phone Melissa Cruz Chang FONSECA Primary Care Provider +1- [phone] Reason for Visit * Reason Onset Date Comments Medication Refill 04/22/2024 Encounter Details Date Type Department Care Team (Late st Contact Info) Description 04/22/2024 Telephone Wound Care, [facility] [address] [place], [place] [id number] Yuriy Hilario MD [address] [place] [address] Medication Refill Allergies Active Allergy Reactions Criticality Noted Date [...] EVERY DAY 90 Tablet 1 4 Active documented as of this encounter [...] Next Due Pneumococcal Conjugate Vacci ne, 20-valent ([id number]) 12/04/2022 Pneumococcal Polysaccharide PPV23 (Pneumovax) 05/06/2011 Seasonal Influenza Vac., MDV , IM, 0.5 mL (Fluzone) 05/27/2014,04/11/2013 Seasonal Influenza, PF, 6 M & above, IM , (FluLaval or Fluzone) 06/25/2023,06/05/2022,06/02/2021,05/22,05/06/2018,04/27/2017 Seasonal Influenza, Quadriva lent, No Preserve, IM 05/30/2016 TDAP, Age 7 and older, IM (Adacel) [...] encounter Miscellaneous Notes * Telephone Encounter - Lavonne Manning, buckle attaching machine operator - 04/22/2024 12:34 PM EDT Patient requesting the following Triamcinolone Acetonide 0.1 % External Cream (Aristocort) [[id number]] (Order [id number]) Medication Discontinued Date: 09/18/2023 Department: Wound Care, [facility] Ordering/Authorizing: Nora Stephen Outpatient Medication Detail Disp Refills Start End Triamcinolone Acetonide 0.1 % External Cream (Aristocort) (Discontinued) 80 g 2 09/18/2023 01/02/2024 Sig: Apply topically to affected area once daily or at time of dressing change. Patient not taking: Reported on 10/30/2023 Sent to pharmacy as: Triamcinolone Acetonide 0.1 % External Cream (Aristocort) Class: ePrescribing Order: [id number] Date/Time Signed: 09/18/2023 11:08 E-Prescribing Status: Receipt confirmed by pharmacy (09/18/2023 11:08 AM EST) E-Cancel Status: Request approved by pharmacy (01/02/2024 10:43 AM EDT) E-Cancel Status Note: Some or all of Rx received:09/22/23 This Order Has Been Discontinued Order Status Reason By On Discontinued None Melissa Cruz PAThaoC 01/02/24 1043 Order Providers Prescribing Provider ([id number]) Nora Stephen, DPM Thank you, Lavonne Manning Pest Control Worker [facility] 04/22/2024,12:34 PM documented in this encounter Plan of Treatment Upcoming Encounters Date Type Department Care Team (Late st Contact Info) Description 07/23/2024 8:00 AM EST Telemedicine [address] [phone] Magdalena Lubin LCSW [address] [place] [address] 07/25/2024 10:30 AM EST Nurse Only Wound Care, [address] [place] [address] [facility], Nurse Wound Care [address] [place] [address] 07/28/2024 11:00 AM EST Nurse Only Wound Care, [address] [address] [facility], Nurse Wound Care [address] [place] [address] [place] [address] 07/29/2024 11:00 AM EST Appointment Cardiac Studies, [address] [place] [address] 07/29/2024 11:00 AM EST Office Visit [facility] [address] [place] [id number] [place] Coleman CRNP [address] [place] [address] 08/04/2024 11:00 AM EST Office Visit Wound Care, [facility] 400 [facility] [place] [address] Yuriy Hilario MD [address] [facility] [place] [address] 10/09/2024 12:10 PM EST Hospital Encounter OR [facility], Operating Room, [facility] - 4th Floor 400 [facility] [place] [address] Bigg Wetzel MD [address] [place] [address] 10/09/2024 12:10 PM EST - 10/09/2024 1:11 PM EST Surgery OR [facility], Operating Room, [facility] Floor 400 [facility] [place] [address] Bigg Wetzel MD [address] [facility] [place] [address] COLONOSCOPY FLEXIBLE PROXIMAL DIAGNOSTIC 10/24/2024 10:00 AM EDT Office Visit Cardiology, [place] 400 [facility] [place] [address] Darnell Boggs DO 400 [facility] [place] [address] Scheduled Procedures Name Priority Associated Diagnoses Date/Ti [...] 02/10/2009 COVID-19 Vaccine ( - season) 2024 DTap/Tdap Vaccines (2 - Td [...] this encounter Medical Devices Implanted Type Area Medical Diagnostic Radiographer Device Identifier Shelf Expiration Date Model / Serial / Lot Device Perm Cntrl [id number] - [id number] Implanted:Qty: 2 on 09/27/2015 by Sharda Ruiz, Corey Rucker MD at OR [facility] Uterus [employer] 05/03/2017 [id number] / / [id number] documented as of this encounter Additional Health [...] Power of Attor benoit? No Care Teams Iron Bender Relationship Specialty Start Date End Date Melissa Cruz PA-C [address] [facility] [place] [address] PCP - General Physician Jukebox Operator 06/02/21 documented as of this encounter
--- OUTSIDE RECORDS SUMMARY | 2024-08-09 23:47 | External Medical Summary | Summary of Care ---
Author Name Unknown Organization [facility] Address [address] [place] [address] Phone [phone] Care Team Providers Care Drilling Assistant Name Role Phone Melissa Cruz Chang FONSECA Primary Care Provider +1- [phone] Reason for Visit * Reason Comments Wound Care B/LLE Encounter Details Date Type Department Care Team ([facility] Contact Info) Description 07/25/2024 10:30 AM EST Nurse Only Wound Care, [facility] [address] [place] [address] [facility], Nurse Wound Care [address] [place] [address] Wound Care (B/LLE ) Allergies Active Allergy Reactions Criticality Noted Date Comments Aspirin 01/27/2014 Increased bleeding documented as of this encounter (statuses as of 07/25/2024) Medications traZODone (DESYREL) 50 MG Tablet Take [...] as of this encounter (statuses as of 07/25/2024) Active Problems Problem Noted Date Diagnosed Date [...] as of this encounter (statuses as of 07/25/2024) Resolved Problems Problem Noted Date Diagnosed Date [...] as of this encounter (statuses as of 07/25/2024) Immunizations Name Administration Dates Next Due Pneumococcal Conjugate Vacci ne, 20-valent ([id number]) 12/04/2022 Pneumococcal Polysaccharide PPV23 (Pneumovax) 05/06/2011 Seasonal [...] Does the household have a [facility] source of income? (Household - for [...] this encounter Patient Instructions * Patient Instructions* Veda Jacobson CMA - 07/25/2024 12:38 PM EST Compression Therapy Education: Any questions, redness or swelling around the wound and development of a temperature of 101F or greater, please contact the [facility]. Please check your toes frequently. If they become blue, purple, pale, cool, numb, and/or tingling elevate your leg higher than your heart for one hour. If you have no relief of the symptoms, cut the entire wrap off and call the [facility], . Keep the wrap dry. If the wrap slides down or bunches at the ankle, call [facility]. Elevate legs above heart for 30 minutes 2-3 times a day.Discharge Instructions: Unna Boot You will be going [...] documented in this encounter Nursing Notes * Veda Jacobson CMA - 07/25/2024 12:30 PM EST Treatment done as ordered by Dr. Sulaiman [employer] Gently cut in half and applied to each heel as per Mica's request for extra comfort to her heels Skim coat of Vaseline applied to all wound beds and then covered with Vaseline gauze and dry 4x4 gauze Unna z applied to B/LLE and wrapped to include dressings for wounds - ABD pads applied over anterior ankle to help shape leg for the coban wrap ABD pads/Kerlix to intertriginous folds - patient again advised that she should continue to use 1/4strength vinegar spray to skin folds - she states she will comply 6 inch dany wrap applied to RLE proximal thigh to keep dressings in place Surgilast size 5 applied to cover the coban wrap to prevent clothes sticking to wrap. Socks and sneakers applied. Compression education was reviewed with patient and she voiced her understanding Compression Therapy Education: Any questions, redness or swelling around the wound and development of a temperature of 101F or greater, please contact the [facility]. Please check your toes frequently. If they become blue, purple, pale, cool, numb, and/or tingling elevate your leg higher than your heart for one hour. If you have no relief of the symptoms, cut the entire wrap off and call the [facility], . Keep the wrap dry. If the wrap slides down or bunches at the ankle, call [facility]. Elevate legs above heart for 30 minutes 2-3 times a day. Assisted patient from exam chair to wheelchair safely and I pushed patient in her wheelchair to check out * Veda Jacobson CMA - 07/25/2024 12:29 PM EST Images from the original note were not included. Chief Complaint Patient presents with Wound Care B/LLE Patient was instructed to not get up on the exam table/exam chair until directed and assisted by their provider; patient is to remain seated in the chair/ wheelchair/ exam table/ exam chair for fall prevention and safety reasons. Patient is aware to have assistance to step down off exam table/exam chair with personnel. Patient voiced full comprehension of instructions. B/LLE shoes, socks, unna boots and dressings removed Wounds then legs and feet washed with soap and water and towel dried. Patient tolerated well. documented in this encounter Plan of Treatment Upcoming Encounters Date Type Department Care Team (Latest Contact Info) Description 07/28/2024 11:00 AM EST Nurse Only Wound Care, [address] [address] [facility], Nurse Wound Care [address] [place] [address] 07/29/2024 11:00 AM EST Appointment Cardiac Studies, [address] [address] 07/29/2024 11:00 AM EST Office Visit [facility] [address] [place] [address] [place] Coleman CRNP [address] [place] [address] 08/04/2024 11:00 AM EST Office Visit Wound Care, [address] [address] Yuriy Hilario MD [address] [place] [address] 10/09/2024 12:10 PM EST Hospital Encounter OR [facility], Operating Room, [facility] - 4th Floor [address] [place] [phone] Bigg Wetzel MD [address] [place] [address] 10/09/2024 12:10 PM EST - 10/09/2024 1:11 PM EST Surgery OR [facility], Operating Room, [facility] - 4th Floor [address] [place] [phone] Bigg Wetzel MD [address] [place] [address] COLONOSCOPY FLEXIBLE PROXIMAL DIAGNOSTIC 10/24/2024 10:00 AM EDT Office Visit Cardiology, [place] [address] [place] [address] Darnell Boggs DO [address] [place] [address] Scheduled Procedures Name Priority Associated Diagnoses Date/Ti [...] encounter Medical Devices Implanted Type Area Medical Logistics Specialist Device Identifier Shelf Expiration Date Model / Serial / Lot Device Perm Cntrl [id number] - [id number] Implanted:Qty: 2 on 09/27/2015 by Sharda Ruiz, Corey Rucker MD at OR [facility] Uterus [employer] 05/03/2017 [id number] / / [id number] documented as of this encounter Visit Diagnoses [...] Power of Attor benoit? No Care Teams Drilling Assistant Relationship Specialty Start Date End Date Melissa Cruz, PAThaoC [address] [address] [place] [address] PCP - General Physician Shoe Lay Out Planner 06/02/21 documented as of this encounter
--- OUTSIDE RECORDS SUMMARY | 2024-08-09 23:47 | External Medical Summary | Summary of Care ---
Author Name Unknown Organization [facility] Address [address] [place] [address] Phone [phone] Care Team Providers Care Mental Health Case Manager Name Role Phone CarylTy mansfieldanthony Downing PA-C Primary Care Provider [phone]- [phone] Reason for Visit * Reason Onset Date Comments Hospital Follow-Up [facility] Hosp f/u 07/09-07/21 7a Hospital Follow-Up 07/29/2024 Encounter Details Date Type Department Care Team (Late st Contact Info) Description 07/29/2024 11:00 AM EST Office Visit [facility] [address] [place] [address] [place] Coleman CRNP [address] [place] [address] Hospital discharge follow-up*; Chronic ulcer of lower extremity, unspecified laterality, unspecified ulcer stage (HCC); Heart failure, unspecified HF chronicity, unspecified heart failure type (HCC) Allergies Active Allergy Reactions Criticality Noted Date [...] THE MORNING 90 Capsule 04/23/20 24 Active Montelukast Sodium 10 MG Oral [...] Capsule 1 4 10:21 AM EST 07/21/20 Active DULoxetine HCl 60 MG Oral Capsule Delayed Release Particles (Cymbalta) Take 1 Capsule by mouth in the morning. 15 Capsule 1 4 10:21 AM EST 07/22/20 Active ARIPiprazole 15 MG Oral Tablet (Abilify) Take 1 Tablet by mouth at bedtime. 15 Tablet 1 4 10:21 AM EST 07/21/20 Active Furosemide 40 MG Oral Tablet (Lasix)Indication s:Lymphedema Take 1 Tablet by mouth daily as needed (edema). 07/21/20 Active clonazePAM 1 MG Oral Tablet (KlonoPIN) Take 1 Tablet by mouth 2 times a day as needed for Anxiety. 07/28/20 Active Clotrimazole-Beta methasone 1-0.05 % External CreamIndications: Multiple open wounds of lower leg, unspecified laterality, subsequent encounter Apply topically to affected area 2 times a day. Apply to lower legs once daily at time of dressing change. Avoid applying to deep wounds. 45 g 11 05/19/20 24 024 Discontinued documented as of this [...] Next Due Pneumococcal Conjugate Vacci ne, 20-valent ([id number]) 12/04/2022 Pneumococcal Polysaccharide PPV23 (Pneumovax) 05/06/2011 Seasonal [...] 1 08/06/2006 - 06/06/2012 Smokeless Tobacco: Never Tobacco Cessation:Counseling Given: Not Answered Alcohol Use Standard Drinks/Week Comments Yes 1 [...] on file documented as of this encounter Last Filed Vital Signs Vital Sign Reading Time Taken Comments Blood Pressure 118/60 07/29/2024 10:52 AM EST Pulse 80 07/29/2024 10:52 AM EST Temperature 37 C (98.6 F) 07/29/2024 10: 52 AM EST Respiratory Rate 18 07/29/2024 10:5 2 AM EST Oxygen Saturation 100% 07/29/2024 10: 52 AM EST Inhaled Oxygen Concentration - - Weight 159.2 kg (350 lb 14.4 oz) 2023 10:52 AM EST Height 149.9 cm (4' 11.02") 07/29/2024 10:52 AM EST Body Mass Index 70.83 07/29/2024 10:52 AM EST documented in this encounter Progress Notes * Berlin Coleman CRNP - 07/29/2024 10:44 AM EST Images from the original note were not included. History of Present Illness Chief Complaint Patient presents with Hospital Follow-Up [facility] Hosp f/u 07/09-07/21 7a Brief Clinical History Ms. Jimenez is a 49 year old female last seen in [facility] on 04/23/2024 by Melissa Cruz She has a h/o the following chronic conditions indicated on the problem list: Chronic Conditions Asthma, mild persistent Bipolar disorder (HCC) Bipolar disorder, current episode depressed, moderate ([facility]) Class 3 severe obesity due to excess calories with serious comorbidity and body mass index (BMI) greater than or equal to 70 in adult (HCC) Recurrent major depressive disorder, in partial remission (HCC) [facility] hospital: [facility] Date: 07/09/2024 through 07/21/2024 Dx: Bipolar disorder current episode depressed moderate Where any tests done: Labs, urinalysis. How are you feeling today?Patient states she is feeling well overall today. Does have some fatigue since starting her new medicines. However no other complaints. No SI or HI. She is following with [facility] in [place]. She also has friends that she can talk to about the things that she is going through. She continues to try to lose weight. She does have the hotline number if she has any SI or HI. She defers her BPH until her visit with her PCP. Her mood appears normal and stable. Thoughts intact. Speech intact. No concerns at this time. HOSPITAL COURSE: Upon admission to the unit Mica had a psychiatric evaluation. 49 year old female who was admitted on a 201 (voluntary) commitment for worsening depression and passive suicidal ideation. Her last inpatient admission was in 2018 for a similar presentation. On encounter, patient was exhibiting clinical symptoms of depression as evidenced by depressed mood, feeling worthless, with lack of motivation and energy, hypersomnia, and diminished appetite. She attributed her depression to medical illness/wounds and chronic pain. She had been experiencing passive wishes. The need for pharmacologic treatment was evaluated and a treatment plan was developed with her input. Her home medications including Abilify, Lamictal, and Buspar were continued as appropriate. The changes made during her hospital course included tapering and discontinuing Wellbutrin and titrating Cymbalta to an effective dose to target depression and chronic pain. Patient was educated on risks, benefits, alternatives, and side effects of treatment. She felt her medications were effective and denied medication side effects such as fatigue, headache, lightheadedness, dizziness, changes in vision, chest pain, shortness of breath, nausea, vomiting, dysuria, diarrhea, constipation, abdominal pain, tremors, abnormal facial movements, or restlessness. Psychotropic medications at time of discharge included: Abilify 15mg HS Buspar 10mg BID Lamictal 100mg BID Cymbalta 60mg Daily On day of discharge, Mica was feeling "okay". She reported improved depression that was manageable for her, but remained with some anticipatory anxiety about returning home. She is most worried that her symptoms will return as she will not have as much interaction with other people as she did here. Support and education on the new outpatient services set up for her by CM provided. She reportedfeeling better after learning of all the new services she will have. She denied suicidal or homicidal ideation, intent, or plan. Risk assessment is a dynamic process and it is possible that this patient's condition and risk level may change. However, based on the day of discharge evaluation Micais determined to be at low risk of harm to self or others. Mica had the opportunity to utilize the multimodal system including milieu management, group therapy, pharmacotherapy, and aftercare planning. Mica participated well in milieu programming and showed a robust response to the supportive environment. She was seen daily to adjust medications and monitor for efficacy. [facility] and received regular wound care. There appeared to be no evidence that the patient posed an imminent threat to self or others and a safe discharge plan was in place. All applicable modifiable risk factors were addressed during admission. Mica planned on attending all follow up appointments as detailed above and taking all medications as directed. Mica was able to state if she were to have suicidal or homicidal thoughts after discharge, she would call hotline numbers or go to the nearest emergency department. It was determined that Mica could be safely managed in a less restrictive setting and was discharged to home to continue treatment in the outpatient setting. Discharge proceeded as planned. Reviewed last labs Latest Reference Range & Units 07/09/24 12:55 07/09/24 13:00 07/09/24 13:11 07/13/24 08:07 07/13/24 08:08 07/15/24 11:27 Triglycerides <=174 mg/dL 94 Cholesterol <200 mg/dL 154 Non-HDL Cholesterol <=159 mg/dL 106 HDL Cholesterol >49 mg/dL 48 (L) LDL Cholesterol <=129 mg/dL 87 SODIUM 135 - 146 mmol/L 142 139 138 POTASSIUM 3.5 - 5.1 mmol/L 4.3 4.9 4.7 CHLORIDE 98 - 107 mmol/L 105 101 100 CO2 22 - 32 mmol/L 26 26 28 BUN 6 - 20 mg/dL 35 (H) 24 (H) 28 (H) CREATININE 0.5 - 1.0 mg/dL 0.9 0.9 1.0 EGFR >=60 mL/min 82 80 66 ANION GAP 7 - 15 mmol/L 11 12 10 GLUCOSE 70 - 120 mg/dL 102 106 122 (H) CALCIUM 8.4 - 10.2 mg/dL 9.2 9.6 9.5 Protein 6.0 - 8.3 g/dL 7.3 Estimated Average Glucose <126 mg/dL 91 25-Hydroxy Vitamin D >19 ng/mL 20 25-HYDROXY VITAMIN D Rpt Hemoglobin A1C 4.0 - 5.6 % 4.8 Beta-HCG, Quantitative <=1.0 mIU/mL <0.3 TSH 0.27 - 4.20 uIU/mL 1.83 CBC Rpt ! Rpt ! WBC 4.00 - 10.80 K/uL 7.68 11.72 (H) RBC 3.85 - 5.15 M/uL 4.14 4.34 HGB 12.0 - 15.3 g/dL 10.8 (L) 11.5 (L) HCT 36.0 - 45.2 % 35.6 (L) 36.5 MCV 81.5 - 97.5 fL 86.0 84.1 MCH 27.0 - 34.0 pg 26.1 26.5 MCHC 32.0 - 36.0 g/dL 30.3 31.5 RDW 11.5 - 15.5 % 15.5 15.0 PLT 140 - 400 K/uL 273 313 MPV 6.6 - 11.1 fL 8.9 8.9 CBC WITH WBC DIFFERENTIAL Rpt ! Absolute Neutrophils 1.80 - 7.70 K/uL 5.03 Absolute Lymphocytes 1.00 - 4.80 K/ul 2.20 Absolute Monocytes 0.00 - 1.10 K/uL 0.40 Absolute Eosinophils 0.00 - 0.70 K/uL 0.00 Absolute Basophils 0.00 - 0.20 K/uL 0.03 IRON SCREEN, INCLUDING TIBC Rpt ! Iron 33 - 151 ug/dL 21 (L) Iron Binding Capacity 250 - 425 ug/dL 252 Transferrin Saturation Percent 15 - 55 % 8 (L) SARS-CoV-2 (COVID-19) Result Negative Negative SARS-COV-2 (COVID-19), NAAT Rpt Albumin 3.8 - 5.0 g/dL 3.7 (L) AST 10 - 35 U/L 16 ALT 10 - 35 U/L 14 Alkaline Phosphatase 35 - 130 U/L 95 Bilirubin, Total <=1.2 mg/dL 0.7 Acetaminophen Level 10.0 - 30.0 ug/mL <5.0 (L) Salicylates Level 5.0 - 30.0 mg/dL <1.0 (L) TOXICOLOGY, URINE SCREEN W/O CONFIRMATION Rpt ! Amphetamines Screen, U Negative Positive ! Benzodiazepines Screen, U Negative Negative Cannabinoids Screen, U Negative Negative Cocaine Metabolite Screen, U Negative Negative Fentanyl Screen, U Negative Negative Hydrocodone Screen, U Negative Negative Methadone Metabolite Screen, U Negative Negative Morphine/Codeine Screen, U Negative Negative Oxycodone Screen, U Negative Negative ETHANOL,MEDICAL Negative Negative (L): Data is abnormally low (H): Data is abnormally high !: Data is abnormal Rpt: View report in Results Review for more information Review of Systems Constitutional: Negative. HENT: Negative. Eyes: Negative. Respiratory: Negative. Cardiovascular: Negative. Gastrointestinal: Negative. Endocrine: Negative. Genitourinary: Negative. Musculoskeletal: Negative. Skin: Negative. Neurological: Negative. Psychiatric/Behavioral: Negative for agitation, behavioral problems, confusion, dysphoric mood, self-injury and suicidal ideas. The patient is not nervous/anxious and is not hyperactive. Physical Exam LMP 06/15/2024 (Exact Date) Comment: S/P Ablation 07/29/24 10:52 BP 118/60 Pulse 80 Resp 18 Temp 98.6 F (37 C) SpO2 100 % Weight 350 lb 14.4 oz (H) Height 4' 11.02" (1.499 m) BMI 70.84 (H): Data is abnormally high Physical Exam Vitals reviewed. Constitutional: Appearance: She is obese. HENT: Right Ear: Tympanic membrane, ear canal and external ear normal. Left Ear: Tympanic membrane, ear canal and external ear normal. Mouth/Throat: Mouth: Mucous membranes are moist. Pharynx: Oropharynx is clear. Eyes: Extraocular Movements: Extraocular movements intact. Conjunctiva/sclera: Conjunctivae normal. Pupils: Pupils are equal, round, and reactive to light. Cardiovascular: Rate and Rhythm: Normal rate and regular rhythm. Pulses: Normal pulses. Heart sounds: Normal heart sounds. No murmur heard. Pulmonary: Effort: Pulmonary effort is normal. Breath sounds: Normal breath sounds. No wheezing. Abdominal: General: Bowel sounds are normal. Palpations: Abdomen is soft. Musculoskeletal: General: Normal range of motion. Skin: General: Skin is warm and dry. Capillary Refill: Capillary refill takes less than 2 seconds. Neurological: General: No focal deficit present. Mental Status: She is alert and oriented to person, place, and time. Psychiatric: Attention and Perception: Attention normal. Mood and Affect: Mood normal. Mood is not anxious or depressed. Affect is not flat or tearful. Speech: Speech is not rapid and pressured. Behavior: Behavior normal. Behavior is not agitated, aggressive or hyperactive. Thought Content: Thought content normal. Thought content is not paranoid or delusional. Thought content does not include homicidal or suicidal ideation. Thought content does not include homicidal or suicidal plan. Judgment: Judgment normal. Assessment and Plan Hospital discharge follow-up (Primary) - DISCH MED RECON CUR MED LIS - denies any SI or HI. - continue to follow with solutions as scheduled. Chronic ulcer of lower extremity, unspecified laterality, unspecified ulcer stage (HCC) - continue to follow with wound clinic. Heart failure, unspecified HF chronicity, unspecified heart failure type (HCC) - continue taking Lasix 40 mg daily as needed Wrap-Up Pt is to follow up with solutions as scheduled. Continue to follow with PCP as scheduled. Pt is to notify us of any concerning or worsening symptoms. Pt expresses understanding and satisfaction with plan. Time: I spent a total of 30-39 minutes (exact time 30 mins) on the date of service in preparation, delivery, and documentation of the care provided to Mica Jimenez excluding any time spent in the performance of separately billed services. EMILIANO Turner documented in this encounter Nursing Notes * Sydney Poon CCMA - 07/29/2024 10:44 AM EST Chief Complaint Patient presents with Hospital Follow-Up [facility] Hosp f/u 07/09-07/21 7a Pt is her today for a hosp d/c f/u. Pt went into the ED on 07/09 c/o depressed mood and stated she didn't care what happened to her. Pt states that she is doing well today. She said that she is betterthan when she went into the ED. Pt declines BPAs. She would like them done at her annual. documented in this encounter Plan of Treatment Upcoming Encounters Date Type Department Care Team (Latest Contact Info) Description 08/04/2024 11:00 AM EST Office Visit Wound Care, [facility] [address] [place] [address] Yuriy Hilario MD [address] [place] [id number] 10/09/2024 12:10 PM EST Hospital Encounter OR [facility], Operating Room, [facility] - 4th Floor [address] [facility] [id number] Bigg Wetzel MD [address] [place] [address] 10/09/2024 12:10 PM EST - 10/09/2024 1:11 PM EST Surgery OR [facility], Operating Room, [facility] - 4th Floor [address] [place] [phone] Bigg Wetzel MD [address] [place] [address] COLONOSCOPY FLEXIBLE PROXIMAL DIAGNOSTIC 10/24/2024 10:00 AM EDT Office Visit Cardiology, [place] [address] [place] [address] Darnell Boggs DO [address] [place] [address] Scheduled Procedures Name Priority Associated Diagnoses Date/Ti [...] or Tdap) 01/20/2025 01/20/2015 GFR 07/15/2025 07/15/2024, 1203/2024, 07/09/2024, Additional history exists Depression Monitoring 07/21/2025 [...] this encounter Medical Devices Implanted Type Area Public Address Announcer Device Identifier Shelf Expiration Date Model / Serial / Lot Device Perm Cntrl [id number] - [id number] Implanted:Qty: 2 on 09/27/2015 by Corey Robin Jr., MD at OR [facility] U[employer] 05/03/2017 [id number] / / [id number] documented as of this encounter Visit Diagnoses Diagnosis Hospital discharge follow-up- Primary Other follow-up examination Chronic ulcer of lower extremity, unspecified laterality, unspecified ulcer stage (HCC) Heart failure, unspecified HF chronicity, unspecified heart failure type (HCC) Screening for colon cancer Special screening for [...] Power of Attor benoit? No Care Teams Mental Health Case Manager Relationship Specialty Start Date End Date Melissa Cruz PA-C [address] [facility] [address] [place] [address] PCP - General Physician Leather Carver 06/02/21 documented as of this encounter
--- OUTSIDE RECORDS SUMMARY | 2024-08-09 23:47 | External Medical Summary | Summary of Care ---
Author Name Unknown Organization [facility] Address [address] [place] [address] Phone [phone] Care Team Providers Care Supervisor Soakers Name Role Phone Melissa Cruz Chang FONSECA Primary Care Provider +1- [phone] Reason for Visit * Reason Comments Follow Up BLE -- EDEMA -- WOUN DS Encounter Details Date Type Department Care Team (Late st Contact Info) Description 08/04/2024 11:00 AM EST Office Visit Wound Care, [facility] [address] [place], [place] [id number] Yuriy Hilario MD [address] [place], [place] [id number] Multiple open wounds of lower leg, unspecified laterality, subsequent encounter*; Lymphedema; Class 3 severe obesity due to excess calories with serious comorbidity and body mass index (BMI) greater than or equal to 70 in adult (HCC) Allergies Active Allergy Reactions Criticality Noted Date Comments Aspirin 01/27/2014 Increased bleeding documented as of this encounter (statuses as of 08/04/2024) Medications traZODone (DESYREL) 50 MG Tablet Take [...] 15 Capsule 1 07/21/2024 10:21 AM EST Active ARIPiprazole 15 MG Oral Tablet (Abilify) Take 1 Tablet by mouth at bedtime. 15 Tablet 1 07/21/2024 10:21 AM EST Active Furosemide 40 MG Oral Tablet (Lasix)Indications :Lymphedema Take 1 Tablet by mouth daily as needed (edema). 4 Active clonazePAM 1 MG Oral Tablet (KlonoPIN) Take 1 Tablet by mouth 2 times a day as needed for Anxiety. Active documented as of this encounter (statuses as of 08/04/2024) Active Problems Problem Noted Date Diagnosed Date [...] as of this encounter (statuses as of 08/04/2024) Resolved Problems Problem Noted Date Diagnosed Date [...] No, Advance Directive brochure given to patient. Ligia 10/07/2008 02/16/2014 Abdominal pain, other specified site [...] as of this encounter (statuses as of 08/04/2024) Immunizations Name Administration Dates Next Due Pneumococcal Conjugate Vacci ne, 20-valent ([id number]) 12/04/2022 Pneumococcal Polysaccharide PPV23 (Pneumovax) 05/06/2011 Seasonal [...] No 03/10/2024 Does the household have a [facility] source of income? (Household - for [...] on file documented as of this encounter Progress Notes * Yuriy Hilario MD - 08/04/2024 1:10 PM EST Images from the original note were not included. WOUND OUTPATIENT FOLLOW-UP NOTE DOS: 08/04/2024 CC: Follow-up HPI: Mica Nathaly Barbara returns for follow-up of bilateral lower leg wounds. Current dressing: See Wound Assessment Dressing change frequency: twice a week Subjective ROS: Pain: no Drainage: moderate Swelling: moderate Erythema: minimal Fever/Chills: no Malaise: no ROS was negative other than stated above. Tobacco History: Social History Tobacco Use Smoking Status Former Current packs/day: 0.00 Average packs/day: 1 pack/day for 5.0 years (5.0 ttl pk-yrs) Types: Cigarettes Start date: 06/06/2007 Quit date: 06/06/2012 Years since quittin.1 Smokeless Tobacco Never Objective There were no vitals filed for this visit. WOUND ASSESSMENT: Alteration in Skin Integrity Proximal;Right;Medial Leg (Active) Clinical Image 08/04/24 1122 Wound Length (cm) 7.1 cm 08/04/24 1122 Wound Width (cm) 7 cm 08/04/24 1122 Wound Depth (cm) 0.2 cm 08/04/24 1122 Ulcer Thickness Full 08/04/24 1122 Yellow Fibrinous Slough (%) 1-25% 08/04/24 1122 Granulation Tissue (%) 76-99% 08/04/24 112 Granulation Tissue Color red 08/04/24 1122 Deep Supporting Structure Exposed None 08/04/24 1122 Drainage serosanguinous, heavy 08/04/24 1122 Odor (after cleansing wound) No 08/04/24 1122 Jaye-Wound (Surrounding Skin) Edema;Erythematous 08/04/24 1122 Wound Surface Area (cm^2) 49.7 cm^2 08/04/24 1122 Wound Volume (cm^3) 9.94 cm^3 08/04/24 1122 Alteration in Skin Integrity Lower;Right;Proximal;Anterior Leg (Active) Alteration in Skin Integrity Left;Medial Knee (Active) Clinical Image 08/04/24 1127 Wound Length (cm) 6.2 cm 08/04/24 1127 Wound Width (cm) 3.4 cm 08/04/24 1127 Wound Depth (cm) 0.2 cm 08/04/24 1127 Ulcer Thickness Full 08/04/24 1127 Yellow Fibrinous Slough (%) 1-25% 08/04/24 1127 Granulation Tissue (%) 76-99% 08/04/24 1127 Granulation Tissue Color red 08/04/24 1127 Necrotic Tissue (%) none 08/04/24 1127 Deep Supporting Structure Exposed None 08/04/24 1127 Drainage serosanguinous, heavy 08/04/24 1127 Odor (after cleansing wound) No 08/04/24 1127 Jaye-Wound (Surrounding Skin) Edema;Erythematous 08/04/24 1127 Wound Surface Area (cm^2) 21.08 cm^2 08/04/24 1127 Wound Volume (cm^3) 4.216 cm^3 08/04/24 1127 Alteration in Skin Integrity Proximal;Left;Medial Leg (Active) Clinical Image 08/04/24 1126 Alteration in Skin Integrity Anterior;Left Knee (Active) Clinical Image 08/04/24 1129 Wound Length (cm) 0.3 cm 08/04/24 1129 Wound Width (cm) 0.2 cm 08/04/24 1129 Wound Depth (cm) 0.1 cm 08/04/24 1129 Ulcer Thickness Full 08/04/24 1129 Granulation Tissue (%) 100% 08/04/24 1129 Granulation Tissue Color pale/pink 08/04/24 1129 Necrotic Tissue (%) none 08/04/24 1129 Drainage serosanguinous, mild 08/04/24 1129 Odor (after cleansing wound) No 08/04/24 1129 Jaye-Wound (Surrounding Skin) Edema 08/04/24 1129 Wound Surface Area (cm^2) 0.06 cm^2 08/04/24 1129 Wound Volume (cm^3) 0.006 cm^3 08/04/24 1129 Alteration in Skin Integrity Left;Medial Knee (Active) Clinical Image 08/04/24 1130 Wound Length (cm) 2.5 cm 08/04/24 1130 Wound Width (cm) 1.7 cm 08/04/24 1130 Wound Depth (cm) 0.1 cm 08/04/24 1130 Yellow Fibrinous Slough (%) none 08/04/24 1130 Granulation Tissue (%) 100% 08/04/24 1130 Granulation Tissue Color red 08/04/24 1130 Deep Supporting Structure Exposed None 08/04/24 1130 Drainage serosanguinous, mild 08/04/24 1130 Odor (after cleansing wound) No 08/04/24 1130 Jaye-Wound (Surrounding Skin) Edema 08/04/24 1130 Wound Surface Area (cm^2) 4.25 cm^2 08/04/24 1130 Wound Volume (cm^3) 0.425 cm^3 08/04/24 1130 Alteration in Skin Integrity Lower;Right;Medial Leg (Active) Clinical Image 08/04/24 1123 Wound Length (cm) 5 cm 08/04/24 1123 Wound Width (cm) 4 cm 08/04/24 1123 Wound Depth (cm) 0.3 cm 08/04/24 1123 Ulcer Thickness Full 08/04/24 1123 Yellow Fibrinous Slough (%) 1-25% 08/04/24 1123 Granulation Tissue (%) 76-99% 08/04/24 1123 Granulation Tissue Color red 08/04/24 1123 Deep Supporting Structure Exposed None 08/04/24 1123 Drainage serosanguinous, heavy 08/04/24 1123 Odor (after cleansing wound) No 08/04/24 1123 Jaye-Wound (Surrounding Skin) Edema;Erythematous 08/04/24 1123 Wound Surface Area (cm^2) 20 cm^2 08/04/24 1123 Wound Volume (cm^3) 6 cm^3 08/04/24 1123 Alteration in Skin Integrity Anterior;Proximal;Right Leg (Active) Clinical Image 08/04/24 1120 Wound Length (cm) 4 cm 08/04/24 1120 Wound Width (cm) 2.7 cm 08/04/24 1120 Wound Depth (cm) 0.3 cm 08/04/24 1120 Ulcer Thickness Full 08/04/24 1120 Yellow Fibrinous Slough (%) 1-25% 08/04/24 1120 Granulation Tissue (%) 76-99% 08/04/24 1120 Granulation Tissue Color red 08/04/24 1120 Necrotic Tissue (%) none 08/04/24 1120 Deep Supporting Structure Exposed None 08/04/24 1120 Drainage serosanguinous, heavy 08/04/24 1120 Odor (after cleansing wound) No 08/04/24 1120 Jaye-Wound (Surrounding Skin) Edema;Erythematous 08/04/24 1120 Wound Surface Area (cm^2) 10.8 cm^2 08/04/24 1120 Wound Volume (cm^3) 3.24 cm^3 08/04/24 1120 Alteration in Skin Integrity Right;Lateral;Proximal Thigh (Active) Clinical Image 08/04/24 1115 Wound Length (cm) 29 cm 08/04/24 1115 Wound Width (cm) 11.2 cm 08/04/24 1115 Wound Depth (cm) 0.1 cm 08/04/24 1115 Ulcer Thickness Full 08/04/24 1115 Yellow Fibrinous Slough (%) none 08/04/24 1115 Granulation Tissue (%) 100% 08/04/24 1115 Granulation Tissue Color red 08/04/24 1115 Necrotic Tissue (%) none 08/04/24 1115 Drainage serosanguinous, mild 08/04/24 1115 Odor (after cleansing wound) No 08/04/24 1115 Jaye-Wound (Surrounding Skin) Erythematous;Edema 08/04/24 1115 Wound Surface Area (cm^2) 324.8 cm^2 08/04/24 1115 Wound Volume (cm^3) 32.48 cm^3 08/04/24 1115 Alteration in Skin Integrity Right;Posterior Popliteal (Active) Alteration in Skin Integrity Left Knee (Active) Alteration in Skin Integrity Anterior;Right Knee (Active) Alteration in Skin Integrity Anterior;Distal;Right Thigh (Active) Overall the wounds to not appear worse. Assessment & Plan ASSESSMENT: ICD-10-CM 1. Multiple open wounds of lower leg, unspecified laterality, subsequent encounter S81.809D 2. Lymphedema I89.0 3. Class 3 severe obesity due to excess calories with serious comorbidity and body mass index (BMI)greater than or equal to 70 in adult ([facility]) E66.813 Z68.45 E66.01 PLAN: Gauze dressings to open wounds. Unna boots overlying the dressings. Follow Up: Return in about 6 weeks (around 09/15/2024). I spent a total of 30-39 minutes (exact time 35 mins) on the date of service in preparation, delivery, and documentation of the care provided to Mica Jimenez excluding any time spent in the performance of separately billed services or time spent by another provider/QHP. Lillian Hilario MD documented in this encounter Nursing Notes * Megha López, SCALE MECHANIC - 08/04/2024 12:51 PM EST Post exam provided treatment per 's order -- BLE -- Foam pad to protect heel - (one cut in half) Vaseline to wound beds - covered with folded 4x4' gauze pads then ABDs padding out Ankles - folds at knees , secured with Kerlix. Unna Z from toes to tissue just over knee - Coban for compression then Surgilast #5 to knee -- Fluffed Kerlix to Upper lateral thigh skin folds secured with Filiberto Wrap Assisted with shoes and socks then to safely transfer from Exam seating to w/c. Aware to call with any questions or concerns. Review of Unna boot safety as follows was provided while application of dressings Discharge Instructions: Unna Boot You will be [...] boot dressing that smells different than usual * Megha López LPN - 08/04/2024 11:10 AM EST Images from the original note were not included. Mica was assisted from w/c to exam seating aware to not rise unassisted for her safety. Unna boots have slid to just above ankle bilaterally-- states dressings last changed on Sunday as room mate is injured and can not help -- Missed appointment Sunday due to transportation issues .-- No Filiberto Wraps to upper legs is noted at this date. Dressings removed noted decline in all wound tissue except to left knee. Wounds washed then legs / feet -- legs are seeping fluid post cleansing -- tissue around wounds presents with tissue irritation felt related to tape. Photos and measurements taken. Please note un-gloved fingers are those of Mica as she assisted to keep skin folds apart to help with photos. documented in this encounter Plan of Treatment Upcoming Encounters Date Type Department Care Team (Latest Contact Info) Description 08/08/2024 11:30 AM EST Nurse Only Wound Care, [address] [address] [facility], Nurse Wound Care [address] [place], [place] [address] [address] 08/11/2024 11:20 AM EST Nurse Only Wound Care, [address] [address] [facility], Nurse Wound Care [address] [place], [place] [address] [address] 08/14/2024 11:30 AM EST Nurse Only Wound Care, [facility] [address] [place] [address] Gl, Nurse Wound Care [address] [place] [address] 08/15/2024 11:00 AM EST Nurse Only Wound Care, [facility] [address] [place] [address] Gl, Nurse Wound Care [address] [place] [address] 08/18/2024 11:20 AM EST Nurse Only Wound Care, [facility] [address] [place] [address] Gl, Nurse Wound Care [address] [place] [address] 08/19/2024 11:30 AM EST Nurse Only Wound Care, [address] [place] [address] Gl, Nurse Wound Care [address] [place] [address] 08/22/2024 10:30 AM EST Nurse Only Wound Care, [address] [place] [address] Gl, Nurse Wound Care [address] [place] [address] 08/25/2024 10:30 AM EST Nurse Only Wound Care, [address] [place] [address] Gl, Nurse Wound Care [address] [place] [address] 08/27/2024 10:30 AM EST Nurse Only Wound Care, [address] [place] [address] Gl, Nurse Wound Care [address] [place] [address] 08/29/2024 10:30 AM EST Nurse Only Wound Care, [facility] [address] [place] [address] Gl, Nurse Wound Care [address] [place] [address] 09/01/2024 11:00 AM EST Office Visit Wound Care, [facility] [address] [place] [address] Yuriy Hilario MD [address] [place] [address] 10/09/2024 12:10 PM EST Hospital Encounter OR [place], Operating Room, [facility] - 4th Floor [address] [address] Bigg Wetzel MD [address] [place] [address] 10/09/2024 12:10 PM EST - 10/09/2024 1:11 PM EST Surgery OR [facility], Operating Room, [facility] Floor [address] [phone] Bigg Wetzel MD [address] [place] [address] COLONOSCOPY FLEXIBLE PROXIMAL DIAGNOSTIC 10/24/2024 10:00 AM EDT Office Visit Cardiology, [address] [place] [address] Darnell Boggs DO [address] [facility] [place] [address] Scheduled Procedures Name Priority Associated Diagnoses Date/Ti [...] this encounter Medical Devices Implanted Type Area Coil Strapper Device Identifier Shelf Expiration Date Model / Serial / Lot Device Perm Cntrl [id number] - [id number] Implanted:Qty: 2 on 09/27/2015 by Sharda Ruiz, Corey Rucker MD at OR [facility] Uterus [employer] 05/03/2017 [id number] / / [id number] documented as of this encounter Visit Diagnoses Diagnosis Multiple open wounds of lower leg, unspecified laterality, subsequent encounter- Primary Lymphedema Other lymphedema Class 3 severe obesity due to excess calories with serious comorbidity and body mass index (BMI) greater than or equal to 70 in adult (HCC) Screening for colon cancer Special screening [...] Power of Attor benoit? No Care Teams Supervisor Soakers Relationship Specialty Start Date End Date Melissa Cruz PA-C [address] [facility] [address] [place] [address] PCP - General Physician Senior Investment Manager 06/02/21 documented as of this encounter
--- OUTSIDE RECORDS SUMMARY | 2024-08-09 23:47 | External Medical Summary | Summary of Care ---
Author Name Unknown Organization [facility] Address [address] [place] [address] Phone [phone] Care Team Providers Care Web Art Director Name Role Phone Carylshyla Melissa Downing PA-C Primary Care Provider +1- [phone] Reason for Visit * Reason Onset Date Comments Appointment 07/21/2024 Encounter Details Date Type Department Care Team (Late st Contact Info) Description 07/21/2024 Telephone General Surgery Marilee Cote [address] [place] [address] Yuriy Hilario MD [address] [place] [address] Appointment Allergies Active Allergy Reactions Criticality Noted [...] Next Due Pneumococcal Conjugate Vacci ne, 20-valent ([id number]) 12/04/2022 Pneumococcal Polysaccharide PPV23 (Pneumovax) 05/06/2011 Seasonal [...] No 03/10/2024 Does the household have a [facility] source of income? (Household - for [...] encounter Miscellaneous Notes * Telephone Encounter - Anna Zafar OSA [...] Please advise and reach out to patient. [phone] JORGE A Yuen documented in this encounter Plan of Treatment Upcoming Encounters Date Type Department Care Team (Late st Contact Info) Description 07/23/2024 8:00 AM EST Telemedicine [address] [place] [address] Magdalena Lubin [facility] [address] 07/25/2024 12:20 PM EST Office Visit [facility] [address] [place] [address] Melissa Cruz PA-C [address] [place] [address] 07/29/2024 11:00 AM EST Appointment Cardiac Studies, [address] [place] [address] 10/09/2024 12:10 PM EST Hospital Encounter OR [facility], Operating Room, [facility] Floor [address] [facility] [place] [address] Bigg Wetzel MD [address] [facility] [place] [address] 10/09/2024 12:10 PM EST - 10/09/2024 1:11 PM EST Surgery OR [facility], Operating Room, [facility] Floor [address] [facility] [place] [address] Bigg Wetzel MD [address] [place] [address] COLONOSCOPY FLEXIBLE PROXIMAL DIAGNOSTIC 10/24/2024 10:00 AM EDT Office Visit Cardiology, [place] [address] [place] [address] Darnell Boggs DO [address] [place] [address] Scheduled Procedures Name Priority Associated Diagnoses Date/Ti [...] this encounter Medical Devices Implanted Type Area Tattooer Device Identifier Shelf Expiration Date Model / Serial / Lot Device Perm Cntrl [id number] - [id number] Implanted:Qty: 2 on 09/27/2015 by Sharda Ruiz, Corey Rucker MD at OR [facility] Uterus [employer] 05/03/2017 [id number] / / [id number] documented as of this encounter Advance Directives [...] Power of Attor benoit? No Care Teams Web Art Director Relationship Specialty Start Date End Date Melissa Cruz PA-C [address] [facility] [address] [place] [address] PCP - General Physician Field Assessor 06/02/21 documented as of this encounter
--- OUTSIDE RECORDS SUMMARY | 2024-08-09 23:47 | External Medical Summary | Summary of Care ---
Author Name Unknown Organization [facility] Address [address] [place] [address] Phone [phone] Care Team Providers Care Manager Foreign Name Role Phone Anthony Melissa Downing PA-C Primary Care Provider +1- [phone] Encounter Details Date Type Department Care Team (Late st Contact Info) Description 04/29/2024 Telephone Wound Care, [facility] [address] [place] [address] Services, Scheduling [address] [place] [address] Allergies Active Allergy Reactions Criticality Noted Date [...] 1 4 Active Vitamin D3 50 MCG (1999 UT) Oral CapsuleIndications :Vitamin D deficiency TAKE [...] Next Due Pneumococcal Conjugate Vacci ne, 20-valent ([id number]) 12/04/2022 Pneumococcal Polysaccharide PPV23 (Pneumovax) 05/06/2011 Seasonal [...] No 07/10/2024 Are you (or your family) camlia eless or worried that you might be [...] Miscellaneous Notes * Telephone Encounter - Anaid Beasley OSA - 04/29/2024 9:28 AM EDT Patients OV note was faxed to [facility]. * Telephone Encounter - Yessenia Braswell OSA - 04/29/2024 8:35 AM EDT Patient of Dr Hilario. [facility] is requesting the patients recent office visit notes and her visit order faxed over to them. Please fax [phone]. documented in this encounter Plan of Treatment Upcoming Encounters Date Type Department Care Team (Latest Contact Info) Description 08/04/2024 11:00 AM EST Office Visit Wound Care, [facility] [address] [facility] [address] Yuriy Hilario MD [address] [place] [address] 10/09/2024 12:10 PM EST Hospital Encounter OR [facility], Operating Room, [facility] - 4th Floor [address] [place] [address] Bigg Wetzel MD [address] [place] [address] 10/09/2024 12:10 PM EST - 10/09/2024 1:11 PM EST Surgery OR [facility], Operating Room, [facility] Floor [address] [place] [address] Bigg Wetzel MD [address] [place] [address] COLONOSCOPY FLEXIBLE PROXIMAL DIAGNOSTIC 10/24/2024 10:00 AM EDT Office Visit Cardiology, [place] [address] [place] [address] Darnell Boggs DO [address] [place] [address] Scheduled Procedures Name Priority Associated Diagnoses Date/Ti [...] this encounter Medical Devices Implanted Type Area Him Assistant Device Identifier Shelf Expiration Date Model / Serial / Lot Device Perm Cntrl [id number] - [id number] Implanted:Qty: 2 on 09/27/2015 by Sharda Ruiz, Corey Rucker MD at OR [facility] Uterus [employer] 05/03/2017 [id number] / / [id number] documented as of this encounter Additional Health [...] patient have Health Care Power of Attor bneoit? No * Full Code Date Activated Date [...] Power of Attor benoit? No Care Teams Manager Foreign Relationship Specialty Start Date End Date Melissa Cruz PA-C [address] [facility] [address] [place] [address] PCP - General Physician Real Estate Branch Manager 06/02/21 documented as of this encounter
--- OUTSIDE RECORDS SUMMARY | 2024-08-09 23:47 | External Medical Summary | Summary of Care ---
Author Name Unknown Organization [facility] Address [address] [place] [address] Phone [phone] Care Team Providers Care Buckle Coverer Name Role Phone Melissa Cruz Chang FONSECA Primary Care Provider +1- [phone] Reason for Visit * Reason Onset Date Comments Hospital Follow-Up 07/22/2024 NEERAJ Call Encounter Details Date Type Department Care Team (Late st Contact Info) Description 07/22/2024 Telephone [facility] [address] [place] [address] Charlotte Taylor RN Hospital Follow-Up ([facility]ERAJ Call) Allergies Active Allergy Reactions Criticality Noted Date [...] Next Due Pneumococcal Conjugate Vacci ne, 20-valent ([id number]) 12/04/2022 Pneumococcal Polysaccharide PPV23 (Pneumovax) 05/06/2011 Seasonal [...] encounter Miscellaneous Notes * Telephone Encounter - Charlotte Taylor RN - 07/22/2024 11:21 AM EST Transitions of Care Note Reason for Referral:Recent Admission Phone visit for follow up: NEERAJ Admitted to: [facility], Date: 07/09/2024 Discharged to: Home, Date: 07/21/2024 Diagnosis driving hospitalization: Bipolar disorder, current episode depressed, moderate Source/Contact: Patient SUBJECTIVE Consent: Verbal consent for review of hospital discharge: Yes REVIEW OF SYSTEMS Patient/Other Reports: Current patient/caregiver problems or concerns: Patient reports she is doing well! CV: Denies problems Pulmonary: Denies problems Chills/Sweats/Fever:Denies chills/sweats Denies fever Appetite:Denies problems such as nausea, vomiting, burning, decreased appetite Current diet: reg Bowel: denies problems Bladder: denies problems Wound (If applicable): N/A Pain:Denies Sleep:Denies problems FUNCTIONAL STATUS: ADL'S: Needs Assistance With:N/A as pt is independent IADL'S: Needs Assistance With:N/A as pt is independent Cognitive and Mental Health: denies problems, alert and oriented x 3, and able to communicate, understand instructions, process information. MEDICATION RECONCILIATION Medications: New medication(s) filled since hospitalization- DULoxetine (Cymbalta) Changed medication(s) since hospitalization Pregabalin (Lyrica) Discontinued medication(s) since hospitalization- buPROPion XL 300 MG Tb24 (Wellbutrin XL) clonazePAM 1 MG Tablet (KlonoPIN) Reports all medications taken as prescribed. ASSESSMENT Medication Risk Assessment: PolyPharmacy Did patient fail outpatient treatment? No Discharge instructions available for review? Yes PLAN Symptom Monitoring Interventions:Member/caregiver education - signs and symptoms to contact PrimaryCare (DO NOT DELETE-Three recinos symptoms patient is to report to PCP) 1. SI/HI 2. Signs of infection with BLE wounds 3. Medication side effects Ostrich FarmerMillinery Department Manager of Care interventions/Action Plan: 5 - 7 day follow-up with PCP in place - Date: 07/29/2024 Educated on role of NEERAJ completed with patient/caregiver. Educated patient/caregiver on patient right to have input on NEERAJ plan of care. Verification of Home Health/DME if indicated: NO not applicable Identified Care Gaps: Yes Care Gaps closed this call: Appointment made or confirmed, Medication adherence, Medication optimization, Post discharge appointment, Services in place, and Transition of Care follow-up communication Re-evaluation of Plan of Care and progress towards goals achievement: Patient education this visit: Verbal, see above Plan to instructed to call Primary Care Provider with change in symptoms or as needed before next follow-up, discharge needs met, verbalizes understanding and agrees with plan. Charlotte Taylor RN documented in this encounter Plan of Treatment Upcoming Encounters Date Type Department Care Team (Late st Contact Info) Description 07/23/2024 8:00 AM EST Telemedicine Marilee [place] [address] Magdalena Lubin LCSW [address] [place] [id number] 07/25/2024 10:30 AM EST Nurse Only Wound Care, [address] [place] [address] [facility], Nurse Wound Care [address] [place] [address] 07/28/2024 11:00 AM EST Nurse Only Wound Care, [address] [place] [address] [facility], Nurse Wound Care [address] [place] [address] 07/29/2024 11:00 AM EST Appointment Cardiac Studies, [address] [place] [address] 07/29/2024 11:00 AM EST Office Visit [facility] [address] [place] [address] [place] Coleman CRNP [address] [place] [address] 08/04/2024 11:00 AM EST Office Visit Wound Care, [address] [address] Yuriy Hilario MD [address] [place] [address] 10/09/2024 12:10 PM EST Hospital Encounter OR [facility], Operating Room, [facility] - 4th Floor [address] [place] [phone] Bigg Wetzel MD [address] [place] [address] 10/09/2024 12:10 PM EST - 10/09/2024 1:11 PM EST Surgery OR [facility], Operating Room, [facility] - 4th Floor [address] [place] [address] [place] [address] Bigg Wetzel MD [address] [place] [address] COLONOSCOPY FLEXIBLE PROXIMAL DIAGNOSTIC 10/24/2024 10:00 AM EDT Office Visit Marilee Montoya [address] [place] [address] Darnell Boggs DO [address] [place] [address] Scheduled Procedures Name Priority Associated Diagnoses Date/Ti [...] this encounter Medical Devices Implanted Type Area Wood Machinist Apprentice Device Identifier Shelf Expiration Date Model / Serial / Lot Device Perm Cntrl [id number] - [id number] Implanted:Qty: 2 on 09/27/2015 by Sharda Ruiz, Corey Rucker MD at OR [facility] Uterus [employer] 05/03/2017 [id number] / / [id number] documented as of this encounter Advance Directives [...] Power of Attor benoit? No Care Teams Buckle Coverer Relationship Specialty Start Date End Date Melissa Cruz PA-C [address] [facility] [address] [place] [address] PCP - General Physician Setter Molding And Coremaking Machines 06/02/21 documented as of this encounter
--- OUTSIDE RECORDS SUMMARY | 2024-08-09 23:48 | External Medical Summary | Summary of Care ---
Author Name Unknown Organization [facility] Address [address] [place] [address] Phone [phone] Care Team Providers Care Appian Bpm Developer Name Role Phone Melissa Cruz PA-C Primary Care Provider +1- [phone] Reason for Visit * Reason Onset Date Comments Home Health 04/15/2024 Encounter Details Date Type Department Care Team (Late st Contact Info) Description 04/15/[address] [place] [address] Melissa Cruz PA-C [address] [place] [address] Home Health Allergies Active Allergy Reactions Criticality Noted Date Comments Aspirin 01/27/2014 Increased bleeding documented as of this encounter (statuses as of 07/15/2024) Medications traZODone (DESYREL) 50 MG Tablet Take 1 Tab by mouth at bedtime as needed, may repeat once for Sleep. 30 Tab 08/22/19 18 Suspended clonazePAM 1 MG Oral Tablet (KlonoPIN) 08/12/19 22 Suspended Albuterol Sulfate HFA 108 (90 Base) MCG/ACT Inhalation Aerosol SolutionIndication s:Mild persistent asthma without complication 2 puffs every 4 hours as needed for shortness of breath/cough 18 g 2 08/29/19 22 Suspended ARIPiprazole 15 MG Oral Tablet (Abilify) TAKE 1 TABLET BY MOUTH EVERYDAY AT BEDTIME 11/09/19 22 Suspended lamoTRIgine 100 MG Oral Tablet (LaMICtal) 12/05/19 22 Suspended buPROPion HCl ER (XL) 300 MG Oral Tablet Extended Release 24 Hour (Wellbutrin XL) TAKE 1 TABLET BY MOUTH EVERY DAY IN THE MORNING 10/07/19 22 Suspended Fluticasone Propionate 50 MCG/ACT Nasal Suspension (Flonase)Indicatio ns:Acute maxillary sinusitis, recurrence not specified SPRAY 2 SPRAYS INTO EACH NOSTRIL IN THE MORNING 16 mL 09/30/19 23 Suspended One-A-Day Womens 50 Plus Oral Tablet Take by mouth. Suspe nded Furosemide 40 MG Oral Tablet (Lasix)Indications :Lymphedema Take 1 Tablet by mouth in the morning. 90 Tablet 2 07/26/20 23 Suspended Omeprazole 20 MG Oral Capsule Delayed Release (PriLOSEC)Indicati ons:Gastroesophage al reflux disease without esophagitis TAKE 1 CAPSULE BY MOUTH EVERY DAY 90 Capsule 3 12/03/19 24 Suspended Diclofenac Sodium 75 MG Oral Tablet Delayed Release (Voltaren)Indicati ons:Primary osteoarthritis of one knee, right TAKE BY MOUTH 1 TABLET IN THE MORNING AND 1 TABLET AT NOON AND 1 TABLET BEFORE BEDTIME. WITH FOOD.. 90 Tablet 5 12/03/19 24 Suspended Silver sulfADIAZINE 1 % External Cream (Silvadene) Apply to open wounds daily. 400 g 1 02/08/20 24 Suspended Additional Information Patient not taking.Reported on 07/10/2024 Diclofenac Sodium 1 % External Gel (Voltaren) Apply topically to affected area 4 times a day. 350 g 1 03/06/20 24 Suspended Additional Information Patient not taking.Reported on 07/10/2024 Cyclobenzaprine HCl 10 MG Oral Tablet (Flexeril)Indicati ons:Chronic left-sided low back pain with left-sided sciatica Take 1 Tablet by mouth 3 times a day as needed for Muscle spasms. 42 Tablet 03/10/20 24 Suspended Cetirizine HCl 10 MG Oral Tablet (ZyrTEC)Indication s:Mild persistent asthma without complication TAKE 1 TABLET BY MOUTH EVERY DAY 90 Tablet 1 03/17/20 24 Suspended documented as of this encounter (statuses as of 07/15/2024) Active Problems Problem Noted Date Diagnosed Date [...] as of this encounter (statuses as of 07/15/2024) Resolved Problems Problem Noted Date Diagnosed Date [...] as of this encounter (statuses as of 07/15/2024) Immunizations Name Administration Dates Next Due Pneumococcal Conjugate Vacci ne, 20-valent ([id number]) 12/04/2022 Pneumococcal Polysaccharide PPV23 (Pneumovax) 05/06/2011 Seasonal [...] Answer Date Recorded PHQ Adult Total Score 19 07/10/2024 Hunger Vital Sign Answer Date Recorded Within [...] encounter Miscellaneous Notes * Telephone Encounter - Jessica Gonzalez LPN - 04/15/2024 9:14 AM EDT HH Concerns Ericka RN, Calling from: [facility] Report/Concerns of: needs Physical therapy Symptoms: see Narrative Vitals: T98.4 P91 RR16 BP 120/80 SP [id number] Lung sounds clear Weight N/A Blood sugar N/A Narrative: pt is having difficulty transfer into and out of vehicles. Ericka is placing order to restart physical therapy, she will send order over to the office to be signed. This is FYI documented in this encounter Plan of Treatment Upcoming Encounters Date Type Department Care Team (Latest Contact Info) Description 07/29/2024 11:00 AM EST Appointment Cardiac Studies, [address] [place] [address] 10/09/2024 11:30 AM EST Hospital Encounter OR [facility], Operating Room, [facility] - 4th Floor [address] [place], [place] [address] [phone] Bigg Wetzel MD [address] [place] [address] 10/09/2024 11:30 AM EST - 10/09/2024 12:31 PM EST Surgery OR [facility], Operating Room, [facility] - 4th Floor [address] [place], [place] [address] [address] Bigg Wetzel MD [address] [place] [address] COLONOSCOPY FLEXIBLE PROXIMAL DIAGNOSTIC 10/24/2024 10:00 AM EDT Office Visit Cardiology[facility]ilee [address] [place] [address] Darnell Boggs DO [address] [place] [address] Scheduled Procedures Name Priority Associated Diagnoses Date/Ti me COLONOSCOPY FLEXIBLE PROXIMAL DIAGNOSTIC Screening for colon cancer 10/09/2024 11:30 AM EST Health Maintenance Due Date Last Done [...] Td or Tdap) 01/20/2025 01/20/2015 Depression Monitoring 07/10/2025 07/10/2024 , 07/09/2024, 03/10/2024 Diabetes Screening 07/15/2027 07/15/2024, [...] this encounter Medical Devices Implanted Type Area Bottom Steep Tender Device Identifier Shelf Expiration Date Model / Serial / Lot Device Perm Cntrl [id number] - [id number] Implanted:Qty: 2 on 09/27/2015 by Sharda Ruiz, Corey Rucker MD at OR [facility] Uterus [employer] 05/03/2017 [id number] / / [id number] documented as of this encounter Additional Health Concerns Infection Onset Date Last Indicated Resolved Time MRSA 05/30/2024 05/30/2024 documented as of this encounter Advance Directives * Full Code (Latest Code Status on File) Date Activated Date Inactivated Comments 07/10/2024 5:03 PM This order ref lects the patients wishes and were consensually agreed [...] Power of Attor benoit? No Care Teams Appian Bpm Developer Relationship Specialty Start Date End Date Melissa Cruz PA-C [address] [facility] [address] [place] [address] PCP - General Physician Shredding Machine Operator 06/02/21 documented as of this encounter
--- OUTSIDE RECORDS SUMMARY | 2024-08-09 23:48 | External Medical Summary ---
Author Name Unknown Address Unknown Organization [facility] [address] [place] [address] Laboratory Report Ordering Provider Test Date Status BAUDILIO PRIDE 07/13/2024 08:08:00 Final Observation Date Value Abnormality Reference (Units ) Status BUN 07/13/2024 08:08:00 24 Above high normal 6-20 (mg/dL) Final Creatinine 07/13/2024 08:08:00 0.9 0.5-1.0 (mg/dL) Final Glomerular filtration rate/1.73 sq M.predicted [Volume Rate/Area] in Serum, Plasma or Blood by Creatinine-based formula (CKD-EPI) 07/13/2024 08:08:00 80 >=60 (mL/min) Final eGFR is calculated based on the CKD-EPI 2020 equation. Sodium 07/13/2024 08:08:00 139 135-146 (m mol/L) Final Potassium 07/13/2024 08:08:00 4.9 3.5-5.1 (m mol/L) Final Cl 07/13/2024 08:08:00 101 98-107 (mm ol/L) Final CO2 07/13/2024 08:08:00 26 22-32 (mmo l/L) Final Anion gap 07/13/2024 08:08:00 12 7-15 (mmol /L) Final Glucose 07/13/2024 08:08:00 106 70-120 (mg /dL) Final Calcium 07/13/2024 08:08:00 9.6 8.4-10.2 ( mg/dL) Final Performing Location [facility] [address] [place] [address]
--- OUTSIDE RECORDS SUMMARY | 2024-08-09 23:48 | External Medical Summary | Summary of Care ---
Author Name Unknown Organization [facility] Address [address] [place] [address] Phone [phone] Care Team Providers Care Leadership Recruiter Name Role Phone Anthony Melissa Adam PA-C Primary Care Provider +1- [phone] Reason for Visit * Reason Comments Follow Up BLE -- WOUNDS -- Lym phedema Encounter Details Date Type Department Care Team (Late st Contact Info) Description 07/09/2024 11:00 AM EST Nurse Only Wound Care, [facility] [address] [place] [address] [facility], Nurse Wound Care [address] [place] [address] Follow Up (BLE -- WOUNDS -- Lymphedema ) Allergies Active Allergy Reactions Criticality Noted Date Comments Aspirin 01/27/2014 Increased bleeding documented as of this encounter (statuses as of 07/09/2024) Medications traZODone (DESYREL) 50 MG Tablet Take 1 Tab by mouth at bedtime as needed, may repeat once for Sleep. 30 Tab 8 Active clonazePAM 1 MG Oral Tablet (KlonoPIN) 2 Active Albuterol Sulfate HFA 108 (90 Base) MCG/ACT Inhalation Aerosol SolutionIndication s:Mild persistent asthma without complication 2 puffs every 4 hours as needed for shortness of breath/cough 18 g 2 2 Active ARIPiprazole 15 MG Oral Tablet (Abilify) TAKE 1 TABLET BY MOUTH EVERYDAY AT BEDTIME 2 Active lamoTRIgine 100 MG Oral Tablet (LaMICtal) 2 Active buPROPion HCl ER (XL) 300 MG Oral Tablet Extended Release 24 Hour (Wellbutrin XL) TAKE 1 TABLET BY MOUTH EVERY DAY IN THE MORNING 2 Active Fluticasone Propionate 50 MCG/ACT Nasal Suspension (Flonase)Indicatio ns:Acute maxillary sinusitis, recurrence not specified SPRAY 2 SPRAYS INTO EACH NOSTRIL IN THE MORNING 16 mL 3 Active One-A-Day Womens 50 Plus Oral Tablet Take by mouth. Active Furosemide 40 MG Oral Tablet (Lasix)Indications :Lymphedema Take 1 Tablet by mouth in the morning. 90 Tablet 2 3 Active Omeprazole 20 MG Oral Capsule [...] WITH FOOD.. 90 Tablet 5 4 Active Silver sulfADIAZINE 1 % External Cream (Silvadene) Apply to open wounds daily. 400 g 1 4 Active Diclofenac Sodium 1 % External Gel (Voltaren) Apply topically to affected area 4 times a day. 350 g 1 4 Active Cyclobenzaprine HCl 10 MG Oral Tablet (Flexeril)Indicati ons:Chronic left-sided low back pain with left-sided sciatica Take 1 Tablet by mouth 3 times a day as needed for Muscle spasms. 42 Tablet 4 Active Cetirizine HCl 10 MG Oral Tablet (ZyrTEC)Indication s:Mild persistent asthma without complication TAKE 1 TABLET BY MOUTH EVERY DAY 90 Tablet 1 4 Active Nystatin 843842 UNIT/GM External Powder (Nystop) Apply topically to affected area 3 times a day. Apply to skin folds of both lower legs at time of dressing change or daily. 60 g 3 4 Active Potassium Chloride ER 10 MEQ Oral Tablet Extended ReleaseIndications :Edema, unspecified type TAKE 1 TABLET BY MOUTH EVERY DAY IN THE MORNING 90 Tablet 1 4 Active Vitamin D3 50 MCG (2000 UT) Oral CapsuleIndications :Vitamin D deficiency TAKE 1 CAPSULE BY MOUTH EVERY DAY IN THE MORNING 90 Capsule 4 Active Pregabalin 150 MG Oral Capsule (Lyrica)Indication s:Neuropathy TAKE 1 CAPSULE BY MOUTH IN THE MORNING AT NOON IN THE EVENING AND BEFORE BEDTIME 120 Capsule 1 4 Active Clotrimazole-Betam ethasone 1-0.05 % External [...] at bedtime. 30 Tablet 11 4 Active busPIRone HCl 10 MG Oral Tablet (Buspar) Take 1 Tablet by mouth in the morning and 1 Tablet before bedtime. 4 Active documented as of this encounter (statuses as of 07/09/2024) Active Problems Problem Noted Date Diagnosed Date Neuropathy 07/26/2023 Class 3 severe obesity due t o excess calories with serious comorbidity and body mass index (BMI) greater than or equal to 70 in adult 10/06/2020 Bipolar I disorder, current or most recent episode depressed, with psychotic features 08/22/2017 PTSD (post-traumatic stress disorder) 08/22/2017 LYNSEY (generalized anxiety disorder) 07/23/2017 Lymphedema 04/27/2017 JORGE A (obstructive sleep apnea) 11/08/2016 Recurrent major depressive disorder, in partial remission 03/15/2015 Asthma, mild persistent 01/20/2015 Lumbago 08/28/2014 Right knee DJD 08/28/2014 Esophageal reflux 01/27/2014 Calculus of kidney 04/01/2010 documented as of this encounter (statuses as of 07/09/2024) Resolved Problems Problem Noted Date Diagnosed Date [...] as of this encounter (statuses as of 07/09/2024) Immunizations Name Administration Dates Next Due Pneumococcal Conjugate Vacci ne, 20-valent ([id number]) 12/04/2022 Pneumococcal Polysaccharide PPV23 (Pneumovax) 05/06/2011 Seasonal [...] = 0.6 oz pur e alcohol) rare PHQ-2 Answer Date Recorded PHQ Adult Total Score 13 03/10/2024 Hunger Vital Sign Answer Date Recorded Within [...] have concerns for your saf ety? No 03/10/2024 Do you have concerns for you r family's safety? (Household - for ages 0-17 years) Not on file 03/10/2024 Utilities Answer Date Recorded Do you have trouble paying y our heating, water, or electric bill? No 03/10/2024 Is your family able to pay t he heat, water, or electric bill? (Household - for ages 0-17 years) Not on file 03/10/2024 Does your family have access to good internet? (Household - for ages 0-17 years) Not on file 03/10/2024 Employment Status Answer Date Recorded Are you [...] 18 years and over) Not on file 03/10/2024 Does your family have a hard time getting a ride to doctors visits? (Household - for ages 0-17 years) Not on file 03/10/2024 Has lack of transportation k ept you from medical appointments, meetings, work, or from getting things needed for daily living? Check all that apply. Yes, it has kept me from non-medical meetings, appointments, work, or from getting things that I need 03/10/2024 Do you (or your family) have trouble finding or paying for a ride (transportation)? (Household - for ages 0-17 years) Not on file 03/10/2024 Housing Stability Answer Date Recorded Do you currently live in a s helter or have no steady place to sleep at night? No 03/10/2024 Do you think you are at risk of becoming homeless? (Adult - for ages 18 years and over) Not on file 03/10/2024 Does your family worry about paying for your home or becoming homeless? (Household - for ages 0-17 years) Not on file 0 03/10/2024 Are you homeless or worried that you might be in the future? No 03/10/2024 Are you (or your family) camila eless or worried that you might be in the future? (Household - for ages 0-17 years) Not on file Food Insecurity Answer Date Recorded Do you need food for this week? No 03/10/2024 Are you able to get enough f ood for your family? (Household - for ages 0-17 years) Not on file 03/10/2024 Does your family need food t his week? (Household - for ages 0-17 years) Not on file 03/10/2024 Do you always have enough fo od for your family? (Household - for ages 0-17 years) Not on file 03/10/2024 Comments No Sex and Gender Information Value [...] Patient Instructions * Patient Instructions* Megha López, DIRECTOR OF PARTNER MARKETING - 07/09/2024 11:08 AM EST Discharge Instructions: Unna Boot You [...] Nursing Notes * Megha López LPN - 07/09/2024 11:09 AM EST Images from the original note were not included. Assisted to transfer from w/c to exam seating for care. Mica is aware to not rise unassisted forher safety. Mica stated she is sorry for missing appointments , but has decided she would like to check herself into the 7th floor as she needs her meds adjusted -- has just stopped caring about everything. We talked and she will be taken per her request to ED post care -- she will have a friend meeting her there. Dressings noted to be heavily soiled that were in place and just hanging in spots -- Right leg withincreased size and redness -- left wounds increased in size Provided treatment as follows to BLE -- Dressing were then reapplied as follows -- 1/4" Iodoform packing covered with Saline moistened 4x4" gauze to cover Right medial thigh / knee wound. This was then buttressed with ABD and 1/2 roll of Kerlix to support tissue and help shape leg to help with application of Unna boot. All other wounds to the Right leg were covered with skim coatof Vaseline then DSD - Kerlix to hold all dressings in place. Then Unna Z and Coban. Surgilast Sz5 to protect Coban from sticking to clothes. LLE - skim coat of Vaseline to all wounds of lower leg then DSD - ABD to buttress tissue apart as well as Kerlix then ABD to Ankles to help with shape of leg - Kerlix from Toes to Knee then Unna Z and Coban.Surgilast sz 5 to protect coban from sticking to her clothes. documented in this encounter Plan of Treatment Upcoming Encounters Date Type Department Care Team (Latest Contact Info) Description 07/11/2024 11:00 AM EST Nurse Only Wound Care, [address] [address] [facility], Nurse Wound Care [address] [place], [place] [address] [address] 07/14/2024 10:00 AM EST NeuroDiagnostic Study Neurophysiology, [address] [address] [place], [address] [facility], [place] [address] 07/14/2024 11:20 AM EST Office Visit Wound Care, [address] [place] [address] Yuriy Hilario MD [address] [place] [address] 07/29/2024 11:00 AM EST Appointment Cardiac Studies, [facility] [address] [place] [address] 10/09/2024 11:30 AM EST Hospital Encounter OR GL, Operating Room, [facility] - 4th Floor [address] [place] [address] Bigg Wetzel MD [address] [place] [address] 10/09/2024 11:30 AM EST - 10/09/2024 12:31 PM EST Surgery OR [facility], Operating Room, [facility] - 4th Floor [address] [place] [address] Bigg Wetzel MD [address] [place] [address] COLONOSCOPY FLEXIBLE PROXIMAL DIAGNOSTIC 10/24/2024 10:00 AM EDT Office Visit [facility]iology[facility] [address] [place] [address] Darnell Boggs DO [address] [place] [address] Scheduled Procedures Name Priority Associated Diagnoses Date/Ti [...] Td or Tdap) 01/20/2025 01/20/2015 Depression Monitoring 03/10/2025 03/10/2024 Diabetes Screening 07/09/2027 07/09/2024, 1 , 03/11/2024, Additional history exists Lipid Panel 05/24/2028 05/24/2023, 05/07, 08/18/2017, Additional history exists Pneumococcal Vaccine: Pediatrics (0 [...] this encounter Medical Devices Implanted Type Area Risk And Insurance Manager Device Identifier Shelf Expiration Date Model / Serial / Lot Device Perm Cntrl [id number] - [id number] Implanted:Qty: 2 on 09/27/2015 by Sharda Ruiz, Corey Rucker MD at OR [facility] Uterus [employer] 05/03/2017 [id number] / / [id number] documented as of this encounter Visit Diagnoses [...] malignant neoplasms, colon documented in this encounter Additional Health Concerns Infection Onset Date Last Indicated Resolved Time MRSA 05/30/2024 05/30/2024 documented as of this encounter Advance Directives * Full Code (Latest Code Status on File) Date Activated Date Inactivated Comments 08/18/2017 12:17 [...] Power of Attor benoit? No Care Teams Leadership Recruiter Relationship Specialty Start Date End Date Melissa Cruz PA-C [address] [address] [place] [address] PCP - General Physician Home Health Specialist 06/02/21 documented as of this encounter
--- OUTSIDE RECORDS SUMMARY | 2024-08-09 23:48 | External Medical Summary ---
Author Name Unknown Address Unknown Organization K1F:[facility] - [address] [place] [address] Laboratory Report Ordering Provider Test Date Status BAUDILIO PRIDE 07/13/2024 08:07:00 Final Observation Date Value Abnormality Reference (Units ) Status WBC, Total 07/13/2024 08:07:00 11.72 Above high normal 4.00-10.80 (K/uL) Final RBC 07/13/2024 08:07:00 4.34 3.85-5.15 (M/uL) Final Hemoglobin 07/13/2024 08:07:00 11.5 Below low normal 12.0-15.3 (g/dL) Final HCT 07/13/2024 08:07:00 36.5 36.0-45.2 (%) Final MCV 07/13/2024 08:07:00 84.1 81.5-97.5 (fL) Final MCH 07/13/2024 08:07:00 26.5 27.0-34.0 (pg) Final MCHC 07/13/2024 08:07:00 31.5 32.0-36.0 (g/dL) Final RDW 07/13/2024 08:07:00 15.0 11.5-15.5 (%) Final Platelets 07/13/2024 08:07:00 313 140-400 (K/uL) Final MPV 07/13/2024 08:07:00 8.9 6.6-11.1 (fL) Final Nucleated erythrocytes/100 leukocytes [Ratio] in Blood by Automated count 07/13/2024 08:07:00 0 <=0 (/100 WBCs) Final Performing Location [facility] - [address] [place] [address]
--- OUTSIDE RECORDS SUMMARY | 2024-08-09 23:48 | External Medical Summary | Summary of Care ---
Author Name Unknown Organization [facility] Address [address] [place] [address] Phone [phone] Care Team Providers Care Wildlife Removal Specialist Name Role Phone Anthony Melissa Adam PA-C Primary Care Provider +1- [phone] Reason for Visit * Reason Comments Follow Up BLE -- WOUNDS -- Lym phedema Encounter Details Date Type Department Care Team (Late st Contact Info) Description 07/09/2024 11:00 AM EST Nurse Only Wound Care, [facility] [address] [place] [address] [facility], Nurse Wound Care [address] [place] [address] Follow Up (BLE -- WOUNDS -- Lymphedema [...] DAY 90 Tablet 1 4 Active Nystatin 473400 UNIT/GM External Powder (Nystop) Apply topically to [...] Next Due Pneumococcal Conjugate Vacci ne, 20-valent ([id number]) 12/04/2022 Pneumococcal Polysaccharide PPV23 (Pneumovax) 05/06/2011 Seasonal [...] Patient Instructions * Patient Instructions* Megha López, STRIPPER LATEX - 07/09/2024 11:08 AM EST Discharge Instructions: [...] 11:00 AM EST Nurse Only Wound Care, [address] [address] [facility], Nurse Wound Care [address] [place], [place] [address] [address] 07/14/2024 10:00 AM EST NeuroDiagnostic Study Neurophysiology, [address] [address] [place], [address] [facility], [place] [address] 07/14/2024 11:20 AM EST Office Visit Wound Care, [address] [place] [address] Yuriy Hilario MD [address] [place] [address] 07/29/2024 11:00 AM EST Appointment Cardiac Studies, [facility] [address] [place] [address] 10/09/2024 11:30 AM EST Hospital Encounter OR GL, Operating Room, [facility] - 4th Floor [address] [place] [address] Bigg Wetzel MD [address] [place] [address] 10/09/2024 11:30 AM EST - 10/09/2024 12:31 PM EST Surgery OR [facility], Operating Room, [facility] - 4th Floor [address] [place] [address] Bigg Wetzel MD [address] [place] [address] COLONOSCOPY FLEXIBLE PROXIMAL DIAGNOSTIC 10/24/2024 10:00 AM EDT Office Visit CardiologyJamesGrant [address] [place] [address] Darnell Boggs DO [address] [place] [address] Scheduled Procedures Name Priority Associated Diagnoses Date/Ti [...] this encounter Medical Devices Implanted Type Area Tumor Registrar Device Identifier Shelf Expiration Date Model / Serial / Lot Device Perm Cntrl [id number] - [id number] Implanted:Qty: 2 on 09/27/2015 by Sharda Ruiz, Corey Rucker MD at OR [facility] Uterus [employer] 05/03/2017 [id number] / / [id number] documented as of this encounter Visit Diagnoses [...] Power of Attor benoit? No Care Teams Wildlife Removal Specialist Relationship Specialty Start Date End Date Melissa Cruz PA-C [address] [address] [place] [address] PCP - General Physician Licensed Plumber 06/02/21 documented as of this encounter
--- OUTSIDE RECORDS SUMMARY | 2024-08-09 23:48 | External Medical Summary ---
Author Name Unknown Address Unknown Organization K1F:[facility] - [address] [facility] [address] Laboratory Report Ordering Provider Test Date Status ENRICO TODD 07/09/2024 13:11:23 Final Cutoff Concentrations:
Drug Level
Amphetamines 500 ng/mL
Benzodiazepines 100 ng/mL
Cannabinoids 50 ng/mL
Cocaine Metabolite 150 ng/mL
Fentanyl 1 ng/mL
Hydrocodone / Hydromorphone 300 ng/mL
Methadone Metabolite 100 ng/mL
Morphine / Codeine 300 ng/mL
Oxycodone / Oxymorphone 100 ng/mL

Screening results are presumptive and can only be used for medical purposes. Confirmatory testing is available upon request. Observation Date Value Abnormality Reference (Units ) Status Amphetamines, Urine screen 07/09/2024 13:11:23 Positive Abnormal Negative Final Benzodiazepines, Urine screen 07/09/2024 13:11:23 Negative Negative Final Cannabinoids, Urine screen 07/09/2024 13:11:23 Negative Negative Final Cocaine Metabolite, Urine screen 07/09/2024 13:11:23 Negative Negative Final fentaNYL [Presence] in Urine by Screen method 07/09/2024 13:11:23 Negative Negative Final HYDROcodone [Presence] in Urine by Screen method 07/09/2024 13:11:23 Negative Negative Final 5-Vqricdxjpm-8,5-Dimeth yl-3,3-Diphenylpyrrolid ine (EDDP) [Presence] in Urine 07/09/2024 13:11:23 Negative Negative Final Opiates, Urine screen 07/09/2024 13:11:23 Negative Negative Final oxyCODONE [Presence] in Urine by Screen method 07/09/2024 13:11:23 Negative Negative Final Performing Location [facility] - [address] [place] [address]
--- OUTSIDE RECORDS SUMMARY | 2024-08-09 23:48 | External Medical Summary | Summary of Care ---
Author Name Unknown Organization [facility] Address [address] [place] [address] Phone [phone] Care Team Providers Care Entry Level Sales Consultant Name Role Phone Carylshyla Melissa Downing PA-C Primary Care Provider [phone]- [phone] Reason for Visit * Reason Onset Date Comments Appointment 07/21/2024 Encounter Details Date Type Department Care Team (Late st Contact Info) Description 07/21/2024 Telephone General Surgery Marilee Cote [address] [place] [address] Yuriy Hilario MD [address] [place] [address] Appointment Allergies Active Allergy Reactions Criticality Noted Date Comments Aspirin 01/27/2014 Increased bleeding documented as of this encounter (statuses as of 07/21/2024) Medications busPIRone HCl 10 MG Oral Tablet (Buspar) [...] daily as needed (edema). 07/21/20 24 Active traZODone (DESYREL) 50 MG Tablet Take 1 Tab by mouth at bedtime as needed, may repeat once for Sleep. 30 Tab 08/22/19 18 Suspended Albuterol Sulfate HFA 108 (90 Base) MCG/ACT Inhalation Aerosol SolutionIndication s:Mild persistent asthma without complication 2 puffs every 4 hours as needed for shortness of breath/cough 18 g 2 08/29/19 22 Suspended Fluticasone Propionate 50 MCG/ACT Nasal Suspension (Flonase)Indicatio ns:Acute maxillary sinusitis, recurrence not specified SPRAY 2 SPRAYS INTO EACH NOSTRIL IN THE MORNING 16 mL 09/30/19 23 Suspended Omeprazole 20 MG Oral Capsule [...] FOOD.. 90 Tablet 5 12/03/19 24 Suspended Cetirizine HCl 10 MG Oral Tablet (ZyrTEC)Indication s:Mild persistent asthma without complication TAKE 1 TABLET BY MOUTH EVERY DAY 90 Tablet 1 03/17/20 24 Suspended Potassium Chloride ER 10 MEQ Oral Tablet Extended ReleaseIndications :Edema, unspecified type TAKE 1 TABLET BY MOUTH EVERY DAY IN THE MORNING 90 Tablet 1 04/23/20 24 Suspended Vitamin D3 50 MCG (2000 UT) Oral CapsuleIndications :Vitamin D deficiency TAKE 1 CAPSULE BY MOUTH EVERY DAY IN THE MORNING 90 Capsule 04/23/20 24 Suspended Clotrimazole-Betam ethasone 1-0.05 % External CreamIndications:M ultiple open wounds of lower leg, unspecified laterality, subsequent encounter Apply topically to affected area 2 times a day. Apply to lower legs once daily at time of dressing change. Avoid applying to deep wounds. 45 g 11 05/19/20 24 Suspended Montelukast Sodium 10 MG Oral Tablet (Singulair)Indicat ions:Mild persistent asthma without complication Take 1 Tablet by mouth at bedtime. 30 Tablet 11 05/22/20 24 Suspended Ferrous Sulfate 28 MG Oral Tablet Take 1 Tablet by mouth every morning. Suspended documented as of this encounter (statuses as of 07/21/2024) Active Problems Problem Noted Date Diagnosed Date [...] as of this encounter (statuses as of 07/21/2024) Resolved Problems Problem Noted Date Diagnosed Date [...] as of this encounter (statuses as of 07/21/2024) Immunizations Name Administration Dates Next Due Pneumococcal Conjugate Vacci ne, 20-valent ([id number]) 12/04/2022 Pneumococcal Polysaccharide PPV23 (Pneumovax) 05/06/2011 Seasonal [...] No 03/10/2024 Does the household have a [facility] source [facility] income? (Household - for [...] Please advise and reach out to patient. [phone] JORGE A Yuen documented in this encounter Plan of Treatment Upcoming Encounters Date Type Department Care Team (Late st Contact Info) Description 07/23/2024 8:00 AM EST [facility] [address] [place] [address] Magdalena Lubin [facility] [address] 07/25/2024 12:20 PM EST Office Visit [facility] [address] [place] [address] Melissa Cruz PA-C [address] [place] [address] 07/29/2024 11:00 AM EST Appointment Cardiac Studies, [facility] 400 [facility] [place] [address] 10/09/2024 12:10 PM EST Hospital Encounter OR GL, Operating Room, [facility] - 4th Floor [address] [place] [address] [place] [address] Bigg Wetzel MD [address] [place] [address] 10/09/2024 12:10 PM EST - 10/09/2024 1:11 PM EST Surgery OR [facility], Operating Room, [facility] - 4th Floor [address] [place] [address] [place] [address] Bigg Wetzel MD [address] [place] [address] COLONOSCOPY FLEXIBLE PROXIMAL DIAGNOSTIC 10/24/2024 10:00 AM EDT Office Visit Cardiology, [place] [facility] [place] [address] Darnell Boggs DO [address] [place] [address] Scheduled Procedures Name Priority Associated Diagnoses Date/Ti [...] this encounter Medical Devices Implanted Type Area Oil Tank Car Cleaner Device Identifier Shelf Expiration Date Model / Serial / Lot Device Perm Cntrl [id number] - [id number] Implanted:Qty: 2 on 09/27/2015 by Sharda Ruiz, Corey Rucker MD at OR [facility] Uter[employer] 05/03/2017 [id number] / / [id number] documented as of this encounter Advance Directives [...] Power of Attor benoit? No Care Teams Entry Level Sales Consultant Relationship Specialty Start Date End Date Melissa Cruz PA-C [address] [facility] [address] [place] [address] PCP - General Physician Windows Systems Architect 06/02/21 documented as of this encounter
--- OUTSIDE RECORDS SUMMARY | 2024-08-09 23:48 | External Medical Summary | Summary of Care ---
Author Name Unknown Organization [facility] Address [address] [place] [address] Phone [phone] Care Team Providers Care Professor Of Visual Arts Name Role Phone Carylshyla Melissa Downing PA-C Primary Care Provider [phone]- [phone] Reason for Visit * Reason Onset Date Comments Appointment 07/21/2024 Encounter Details Date Type Department Care Team (Late st Contact Info) Description 07/21/2024 Telephone General Surgery Marilee Cote [address] Juan Carlos [address] [place] [address] Yuriy Hilario MD [address] [place] [place] [address] Appointment Allergies Active Allergy Reactions Criticality Noted [...] Next Due Pneumococcal Conjugate Vacci ne, 20-valent ([id number]) 12/04/2022 Pneumococcal Polysaccharide PPV23 (Pneumovax) 05/06/2011 Seasonal [...] No 03/10/2024 Does the household have a [facility] source of income? (Household - for [...] Please advise and reach out to patient. [phone] JORGE A Yuen documented in this encounter Plan of Treatment Upcoming Encounters Date Type Department Care Team (Late st Contact Info) Description 07/23/2024 8:00 AM EST [facility] [address] [place] [address] Magdalena Lubin [facility] [address] 07/25/2024 12:20 PM EST Office Visit [facility] [address] [place] [address] Melissa Cruz PA-C [address] [place] [address] 07/29/2024 11:00 AM EST Appointment Cardiac Studies, [facility] [address] [facility] [place] [address] 10/09/2024 12:10 PM EST Hospital Encounter OR [facility], Operating Room, [facility] - 4th Floor [address] [place] [address] [place] [address] Bigg Wetzel MD [address] [place] [address] 10/09/2024 12:10 PM EST - 10/09/2024 1:11 PM EST [address] [facility], Operating Room, [facility] - 4th Floor [address] [place] [address] [place] [address] Bigg Wetzel MD [address] [place] [address] COLONOSCOPY FLEXIBLE PROXIMAL DIAGNOSTIC 10/24/2024 10:00 AM EDT Office Visit Cardiology, [place] [facility] [place] [address] Darnell Boggs DO [address] [place] [address] Scheduled Procedures Name Priority Associated Diagnoses Date/Ti [...] this encounter Medical Devices Implanted Type Area Switch Foreman Device Identifier Shelf Expiration Date Model / Serial / Lot Device Perm Cntrl [id number] - [id number] Implanted:Qty: 2 on 09/27/2015 by Sharda Ruiz, Corey Rucker MD at OR [facility] Uterus [employer] 05/03/2017 [id number] / / [id number] documented as of this encounter Advance Directives [...] Health Care Power of Attor bneoit? No Care Teams Professor Of Visual Arts Relationship Specialty Start Date End Date Melissa Cruz PA-C [address] [facility] [address] [place] [address] PCP - General Physician Analytical Chemist 06/02/21 documented as of this encounter
--- OUTSIDE RECORDS SUMMARY | 2024-08-09 23:48 | External Medical Summary | Summary of Care ---
Author Name Unknown Organization [facility] Address [address] [place] [address] Phone [phone] Care Team Providers Care Oil Fire Specialist Name Role Phone Carylshyla Melissa Downing PA-C Primary Care Provider +1- [phone] Reason for Visit * Reason Onset Date Comments Appointment 07/21/2024 Encounter Details Date Type Department Care Team (Late st Contact Info) Description 07/21/2024 Telephone General Surgery Marilee Cote [address] Juan Carlos [address] [place] [address] Yuriy Hilario MD [address] [place] [address] Appointment Allergies Active Allergy Reactions Criticality Noted [...] Next Due Pneumococcal Conjugate Vacci ne, 20-valent ([id number]) 12/04/2022 Pneumococcal Polysaccharide PPV23 (Pneumovax) 05/06/2011 Seasonal [...] No 03/10/2024 Does the household have a [facility] source of income? (Household - for [...] Please advise and reach out to patient. [phone] JORGE A Yuen documented in this encounter Plan of Treatment Upcoming Encounters Date Type Department Care Team (Late st Contact Info) Description 07/23/2024 8:00 AM EST Telemedicine [facility] [address] [place] [id number] Magdalena Lubin [facility] [address] [place] [address] 07/25/2024 12:20 PM EST Office Visit [facility] [address] [place] [address] Melissa Cruz PA-C [address] [place] [address] 07/29/2024 11:00 AM EST Appointment Cardiac Studies, [address] [place] [address] 10/09/2024 12:10 PM EST Hospital Encounter [facility] [address] [place] [address] [place] [address] Bigg Wetzel MD [address] [place] [address] 10/09/2024 12:10 PM EST - 10/09/2024 1:11 PM EST Surgery OR [facility], Operating Room, [facility] - 4th Floor [address] [facility] [address] Bigg Wetzel MD [address] [place] [address] COLONOSCOPY FLEXIBLE PROXIMAL DIAGNOSTIC 10/24/2024 10:00 AM EDT Office [address] [address] Darnell Boggs, DO [address] [place] [address] Scheduled Procedures Name Priority Associated Diagnoses Date/Ti [...] this encounter Medical Devices Implanted Type Area Point Of Care Technician Device Identifier Shelf Expiration Date Model / Serial / Lot Device Perm Cntrl [id number] - [id number] Implanted:Qty: 2 on 09/27/2015 by Sharda Ruiz, Corey Rucker MD at OR [facility] Uterus [employer] 05/03/2017 [id number] / / [id number] documented as of this encounter Advance Directives [...] Power of Attor benoit? No Care Teams Oil Fire Specialist Relationship Specialty Start Date End Date Melissa Cruz PA-C [address] [facility] [address] [place] [address] PCP - General Physician Talking Books Library Clerk 06/02/21 documented as of this encounter
--- OUTSIDE RECORDS SUMMARY | 2024-08-09 23:48 | External Medical Summary ---
Author Name Unknown Address Unknown Organization [facility] - [address] [place] [address] Laboratory Report Ordering Provider Test Date Status MAHI MARQUEZ 07/15/2024 11:27:00 Final Observation Date Value Abnormality Reference (Units ) Status BUN 07/15/2024 11:27:00 28 Above high normal 6-20 (mg/dL) Final Creatinine 07/15/2024 11:27:00 1.0 0.5-1.0 (mg/dL) Final Glomerular filtration rate/1.73 sq M.predicted [Volume Rate/Area] in Serum, Plasma or Blood by Creatinine-based formula (CKD-EPI) 07/15/2024 11:27:00 66 >=60 (mL/min) Final eGFR is calculated based on the CKD-EPI 2020 equation. Sodium 07/15/2024 11:27:00 138 135-146 (m mol/L) Final Potassium 07/15/2024 11:27:00 4.7 3.5-5.1 (m mol/L) Final Cl 07/15/2024 11:27:00 100 98-107 (mm ol/L) Final CO2 07/15/2024 11:27:00 28 22-32 (mmo l/L) Final Anion gap 07/15/2024 11:27:00 10 7-15 (mmol /L) Final Glucose 07/15/2024 11:27:00 122 Above high normal 70 -120 (mg/dL) Final Calcium 07/15/2024 11:27:00 9.5 8.4-10.2 ( mg/dL) Final Performing Location [facility] - [address] [place] [address]
--- OUTSIDE RECORDS SUMMARY | 2024-08-09 23:48 | External Medical Summary | Summary of Care ---
Author Name Unknown Organization [facility] [address] [place] [address] Phone [phone] Care Team Providers Care Hog Raiser Name Role Phone Melissa Cruz Chang FONSECA Primary Care Provider [phone]- [phone] Reason for Visit * Reason Comments Depression Psychological Evaluation * Auth/Cert Specialty Diagnoses / Procedures Referred By Phylicia zambrano Referred To Contact [place] [address] [place] [address] Phone: [phone] [facility] ([facility]) [address] [place] [address] Phone: tel: fax: Referral ID Status Reason Start Date Expiration Date Visits Re quested Visits Authorized [id number] Encounter Details Date Type Department Care Team (Latest Contact Info) Description 07/09/2024 12:18 PM EST - 07/21/2024 2:25 PM EST Hospital Encounter [facility] [facility], Main Hosptial 7th Floor [address] [place] [address] Cyrus Elizalde MD [address] [place] [address] Balwinder Sinclair MD [address] [place] [address] Santosh Ruiz DO [address] [place], [place] [id number] Ra Harris, DO [address] [place] [address] Delores De Jesus MD [address] [place] [address] Cem Archer MD [address] [place] [address] Discharge Disposition: Home - Self Care Allergies Active Allergy Reactions Criticality Noted Date [...] 04/23/20 24 Active Vitamin D3 50 MCG (1999 UT) Oral CapsuleIndication s:Vitamin D deficiency TAKE 1 CAPSULE BY MOUTH EVERY DAY IN THE MORNING 90 Capsule 04/23/20 24 Active Clotrimazole-Beta methasone 1-0.05 % External CreamIndications: Multiple open wounds of lower leg, unspecified laterality, subsequent encounter Apply topically to affected area 2 times a day. Apply to lower legs once daily at time of dressing change. Avoid applying to deep wounds. 45 g 11 05/19/20 24 Active Montelukast Sodium 10 MG Oral [...] TABLET BY MOUTH EVERYDAY AT BEDTIME 11/09/19 024 Discontinued lamoTRIgine 100 MG Oral Tablet (LaMICtal) 12/05/19 22 024 Discontinued buPROPion HCl ER (XL) 300 MG Oral Tablet Extended Release 24 Hour (Wellbutrin XL) TAKE 1 TABLET BY MOUTH EVERY DAY IN THE MORNING 10/07/19 024 Discontinued One-A-Day Womens 50 Plus Oral [...] 42 Tablet 03/10/20 24 024 Discontinued Nystatin 220278 UNIT/GM External Powder (Nystop) Apply topically to affected area 3 times a day. Apply to skin folds of both lower legs at time of dressing change or daily. 60 g 3 04/16/20 24 024 Discontinued Pregabalin 150 MG Oral Capsule (Lyrica)Indicatio ns:Neuropathy TAKE 1 CAPSULE BY MOUTH IN THE MORNING AT NOON IN THE EVENING AND BEFORE BEDTIME 120 Capsule 1 05/03/20 24 024 Discontinued Doxycycline Monohydrate 100 MG Oral Capsule Take 1 Capsule by mouth in the morning and 1 Capsule before bedtime. Do all this for 10 days. 20 Capsule 05/30/20 24 024 Discontinued Amoxicillin-Pot Clavulanate 875-125 MG Oral Tablet (Augmentin) Take 1 Tablet by mouth in the morning and 1 Tablet before bedtime. Do all this for 10 days. 20 Tablet 05/30/20 024 Discontinued busPIRone HCl 10 MG Oral Tablet (Buspar) Take 1 Tablet by mouth in the morning and 1 Tablet before bedtime. 06/23/20 24 024 Discontinued documented as of this [...] Next Due Pneumococcal Conjugate Vacci ne, 20-valent ([id number]) 12/04/2022 Pneumococcal Polysaccharide PPV23 (Pneumovax) 05/06/2011 Seasonal [...] Sign Reading Time Taken Comments Blood Pressure 117/49 07/21/2024 6:00 AM EST Pulse 84 07/21/2024 6:00 AM EST Temperature 36.3 C (97.3 F) 07/21/2024 6:00 AM ES T Respiratory Rate 18 07/21/2024 6:00 AM EST Oxygen Saturation 99% 07/09/2024 12:21 PM EST Inhaled Oxygen Concentration - - Weight 163.3 kg (360 lb) 07/10/2024 5:08 PM EST Height 149.9 cm (4' 11") 07/10/2024 5:08 PM EST Body Mass Index 72.71 07/10/2024 5:08 PM EST documented in this encounter Discharge Instructions * Discharge Instr - AVS* Ayala Adrian PA-C - 07/14/2024 2:47 PM EST Admit Date: 07/09/2024 Discharge Date: 07/16/2024 If the condition for which you were treated on the psychiatric unit worsens, fails to improve or you feel suicidal or homicidal, please call [facility]: or go to the nearest emergency room. The information below provides you with the instructions and the list of medications you need to betaking following discharge from the hospital. If you have any questions, please ask before leaving.Please carry this letter with you when you see your doctor in the clinic. If you have questions about your hospital stay or test results, you can reach us at [phone] Inpatient Behavioral Health Unit at [facility]. Destination: home Primary Diagnosis at discharge: Bipolar Disorder Brief summary of your inpatient care: The reason you were admitted to inpatient psychiatric treatment was due to change in mental status and decline in overall functioning. During your hospitalization, you were treated with a combination of medication and psycho-education therapy. Follow up treatment appointments have been scheduled for you and are noted below. Please attend scheduled appointments after discharge. Inpatient test results pending: None Operations & Procedures: None Complications: none significant Diet: regular Activity: regular Driving: You may resume driving Date you may return to work or school: work Special Instructions: -Please take your medications everyday as prescribed. Do not take more than is prescribed as this can be dangerous. -Do not drink alcohol, this can make depression worse by blocking the effects of antidepressants. Do not use illicit drugs as this makes your mood worse and can be toxic to your body in many different ways. -Avoid tobacco, which contains nicotine. Limit caffeine use. Nicotine and caffeine are stimulants that can cause you to have difficulty sleeping. If you don't sleep, you can experience anxiety and worsening depression. See your primary care physician (Melissa Cruz PA-C) in as needed. SENIOR INVESTIGATOR SECTION: [employer] Instructions: - Go to all scheduled follow-up appointments. - Please take your medications everyday as prescribed. - Do not take more than as prescribed because this can be dangerous. - Do not drink alcohol, this can make depression worse by blocking the effects of antidepressants. Do not use illicit drugs as this makes your mood worse and can be toxic to your body in may ways. - Avoid tobacco, which contains nicotine. Limit caffeine use. Nicotine and caffeine are stimulants that can cause you to have difficulty sleeping. If you don't sleep, you can experience anxiety and worsening depression. Additional Follow Up Appointments: [facility] [address] [place] [address] Psychiatry appointment is scheduled with 07/22/2024 video with Rosita Mustafa PA-C. [employer] [facility] [address] [place] [address] Please call between the hours of 8:00 am and 4:00 pm on Sunday-Sunday to schedule or cancel a ride.You must call to schedule a ride before noon on the day before appointment, or cancel within 2 hours of appointment. [employer] [address] [place] [address] Referral submitted by [facility]; [employer] will contact you with date and time of intake appointment for mental health case management. [facility] [address] [place] [address] Phone #: [phone] Primary Care Provider appointment is scheduled with Melissa Cruz 07/25/2024 at 12:20 PM. [facility] Department of Psychiatry Department of Psychiatry and Behavioral Health [address] [place] [address] (scheduling, ext. 2 for front desk monitor) Referral submitted by [facility]; a virtual intake appointment is scheduled with 07/23/2024 at 8:00 AM with Magdalena Lubin. The video visits are done through [employer] portal. A link will be sent for you to join. Patient being discharged to another Inpatient Facility: No [employer] [employer] Section Completed By: Corinna Goins Patient is a tobacco user: no MEDICATIONS: Abilify 15mg HS Buspar 10mg BID Lamictal 100mg BID Cymbalta 60mg Daily documented in this encounter Progress Notes * Cem Archer MD - 07/20/2024 7:13 AM EST PHYSICIAN PROGRESS NOTE INPATIENT PSYCHIATRY [facility] [address] Name: Brittney Jimenez Location: [facility] [id number] Date: 07/20/2024 Time: 7:13 AM Patient location: HOSPITAL. I was not in a hospital or clinic location. After connecting through [employer], patient was identified by name and date of and/or wristband checked. Patient (or authorized legal service representative) was then informed that this was a Telemedicine visit and was being conducted confidentially over secure lines. My office door was closed. No one else was in the room with me.. Patient acknowledged consent and understanding of privacy and security of the Telemedicine visit and gave permission to have a telemedicine presenter stay in the room in order to assist with the history and to conduct the exam as needed. I informed the patient that I have reviewed their record in [employer] and presented the opportunity for them to ask any questions regarding the visit today. The patient agreed to participate. Commitment Status: 201 Review: Case Reviewed in Treatment Team and Nursing Notes Past 24 Hours Reviewed SUBJECTIVE: Brittney Jimenez is seen for follow up today. Chart reviewed. No acute events through the night. Brittney reports having another 'better than usual' night's sleep. She continues to report improvement in her depression, but she states that she is worried that she will not do as well when she returnhome. When asked why she thinks this, she states. well, I won't have people around to talk to. We discuss options for her to have increased engagement with other people after discharge, even if this means online communities. Medication Compliance: compliant with all prescribed medicines PRN Medication Utilization: None psychiatric in nature. Participating in Treatment: selective attendance Current Medication List: Current Facility-Administered Medications Medication Dose Route Frequency Provider DULoxetine (Cymbalta) cap 60 mg 60 mg Oral Daily(AM) Cem Archer MD Pregabalin (Lyrica) cap 150 mg 150 mg Oral TID(AM/NOON/HS) Ayala Adrian PA-C LORazepam (Ativan) tab 1 mg 1 mg Oral Q6H PRN Cem Archer MD Or LORazepam (Ativan) inj 2 mg 2 mg Intramuscular Q6H PRN Cem Archer MD Ferrous Sulfate (Feosol) tab 325 mg 325 mg Oral Daily Noon Delores De Jesus MD Acetaminophen (Tylenol) tab 325 mg 325 mg Oral Q4H PRN Delores De Jesus MD Or Acetaminophen (Tylenol) tab 650 mg 650 mg Oral Q6H PRN Delores De Jesus MD Or Acetaminophen (Tylenol) tab 975 mg 975 mg Oral Q6H PRN Delores De Jesus MD Haloperidol (Haldol) tab 5 mg 5 mg Oral Q6H PRN Delores De Jesus MD Or Haloperidol Lactate (Haldol) 5 MG/ML inj 5 mg 5 mg Intramuscular Q6H PRN Delores De Jesus MD home medication stored in pharmacy Does Not Apply Daily(AM) Delores De Jesus MD house antacid (Mi-Acid II) oral susp 15 mL 15 mL Oral Q4H PRN Delores De Jesus MD hydrOXYzine HCl tab 50 mg 50 mg Oral Q6H PRN Delores De Jesus MD milk of magnesia (Mom) oral susp 30 mL 30 mL Oral Daily PRN Delores De Jesus MD ARIPiprazole (Abilify) tab 15 mg 15 mg Oral HS Avelina Wood PA-C busPIRone (Buspar) tab 10 mg 10 mg Oral BID(AM/PM) Avelina Wood PA-C Cetirizine (ZyrTEC) tab 10 mg 10 mg Oral Daily(AM) Avelina Wood PA-C lamoTRIgine (LaMICtal) tab 100 mg 100 mg Oral BID(AM/PM) Avelina Wood PA-C montelukast (Singulair) tab 10 mg 10 mg Oral HS Avelina Wood PA-C omeprazole (PriLOSEC) cap 20 mg 20 mg Oral Daily(AM) Avelina Wood PA-C potassium chloride ER tab 10 mEq 10 mEq Oral Daily(AM) Avelina Wood PA-C traZODone (Desyrel) tab 50 mg 50 mg Oral QHS PRN MRx1 Avelina Wood PA-C MENTAL STATUS EVALUATION: Appearance: age-appropriate, casually dressed, and morbidly obese Gait and Station: uses walker for ambulation Personal Presentation: calm and cooperative Behavior: appropriate within the milieu Speech: normal rate, low volume, and normal rhythm, good eye contact Mood: "a little better" Affect: type - dysthymic again today Thought Process: Structure: organized, linear Associations: intact Thought Content: Hallucinations: denies Severity: N/A Delusions: denies Severity: N/A Other: none of concern Suicide Risk (-) Suicidal ideation, intent or plan Aggression Risk: denies thoughts/plans/or intent to harm or kill anyone else Orientation: alert and oriented to person, place, time and situation Recent and remote memory: intact Fund of knowledge: no significant deficits noted Attention span/concentration as evidenced by: ability to sustain attention to examiner - intact Insight: fair, acknowledges presence of mental illness and acknowledges the need for treatment Judgment: fair, willing to participate in treatment PHYSICAL/CONSULT/LAB FINDINGS: BP: 152 mmHg/89 mmHg (07/20/24 0600) Pulse: 82 (07/20/24 0600) Resp: 20 (07/20/24 0600) Temp: 36.28 C (07/20/24 0600) Temp Summary: Temp Min: 36.3 C (97.3 F) Max: 36.3 C (97.3 F) SpO2: 99 % (07/09/24 1221) Labs reviewed as indicated below: No results found for this or any previous visit (from the past 48 hours). DANGEROUSNESS TO SELF/OTHERS ASSESSMENT UPDATE: medication changes per Treatment Plan PATIENT REPORTED DEPRESSION SCREENING (PHQ9): PHQ9 Survey Results Last 24hours (since 07/19/2024) None DIAGNOSIS: Principal Problem: Bipolar disorder, current episode depressed, moderate (HCC) Active Problems: LYNSEY (generalized anxiety disorder) PTSD (post-traumatic stress disorder) Resolved Problems: * No resolved hospital problems. * ASSESSMENT: Brittney Jimenez is a 49 year old female with a past psychiatric history of bipolar disorder, PTSD, LYNSEY who was admitted to the Inpatient Psychiatric Unit at [facility] ([facility]) on 07/09/2024 on a 201 (voluntary) commitment for worsening depression and passive suicidal ideation. Her last inpatient admission was in 2018 to our unit for a similar presentation. On encounter, patient exhibiting clinical symptoms of depression as evidenced by depressed mood, feeling worthless, with lack of motivation and energy, hypersomnia, and diminished appetite. She does admit to prior diagnosis of bipolar disorder and mentions she has experienced mood swings, irritability, mood elevation and racing thoughts in the past. She does not exhibit these symptoms on admission. Patient attributes depression to her medical illness/wounds and chronic pain. She has been experiencing passive deathwishes but denies active suicidal intent or plan. Denies AVH/HI. BUTTON CUTTER medications restarted as she mentioned these have been helpful. Will work on tapering and discontinuing Wellbutrin while Duloxetine is continued and titrated to further aid with depressive symptomatology and chronic pain. Checked BMP on 07/15 as patient is receiving K+ supplementation - normal ay 4.7. No change to medications needed. As of 07/15 patient reported improvement, but on 07/16/24 became acutely anxious again and does not feel ready to leave. Continues to report depression and anxiety as of 07/17/24. Encouraged increasing Cymbalta dose, but she is ambivalent to this. Will postpone discharge for now and assess forimprovement. Tentative discharge Sunday07/21/24. Cymbalta increased on 07/19/24. PLAN: Reviewed with treatment team. Inpatient psychiatric care is necessary because of of suicidal potential . Plan of care includes: 1) 201 (voluntary) commitment 2) Safety Q15 minute checks 3) Supportive milieu and group therapy 4) Safe discharge planning Anticipated duration of admission: 7-10 days Patient will need referrals to community services 5) Psychotropic Medications Continue BUTTON CUTTER Abilify 15 mg PO HS for mood regulation Continue BUTTON CUTTER Buspar 10 mg PO BID for LYNSEY Continue BUTTON CUTTER Lamictal 100 mg PO BID for mood regulation Cymbalta to 60 mg PO daily (last increased on 07/19) 6) Medical Medications Continue home medications as prescribed based on the medication reconciliation Zyrtec 10 mg PO daily Singulair 10 mg PO HS Prilosec 20 mg PO daily Lyrica 150 mg PO TID 7) Labs Medically cleared prior to psychiatric admission. Pertinent review of labs as indicated below: CBC: Hgb/HCT (10.8/35.6) Iron screen w/ TIBC: Iron (21), IBD (252), TSP (8) Ferrous sulfate 325 mg PO daily (at noon) CMP: Bun/Cr (35/0.9), AST/ALT (16/14), no electrolyte abnormalities as all WNL TSH: WNL (1.83) UDS: (+) Amphetamines--> most likely false positive reading from Wellbutrin Ethanol (-) Vitamin D: 20 ng/mL On antipsychotic therapy: HgbA1C: 4.8% Lipid panel: HDL mildly low (48), rest unremarkable 9) Wound consult for assessment of lower extremity wounds - as per recommendations: BLE wounds chronic lymphedema: -Unna boots to BL lower legs, change 3x/wk (-W- while in hospital to maintain dressing ingretity) -daily wound care w/ soap & water, Vaseline gauze and DD to wounds not covered w/ Unna boot. Intertriginous dermatitis BL folds: -cleanse daily w/ soap & water. Dry thoroughly. -may use either Miconazole powder BID and dry gauze or Interdry daily. Wound care will follow while in house. Treatment options and alternatives reviewed with patient and they agree with the above plan. Information about current medications was provided to the patient including reasons why medicationsare being used, risks, benefits, side effects and alternatives to treatment (including no treatment). I spent a total of 36 minutes coordinating, documenting, and providing care for this patient excluding time spent in the performance of separately billed services or time spent by another provider/QHP. * Cem Archer MD - 07/19/2024 6:04 AM EST PHYSICIAN PROGRESS NOTE INPATIENT PSYCHIATRY [address] [facility] [address] Name: Brittney Jimenez Location: [facility] [id number] Date: 07/19/2024 Time: 6:04 AM Patient location: HOSPITAL. I was not in a hospital or clinic location. After connecting through [employer], patient was identified by name and date of and/or wristband checked. Patient (or authorized legal service representative) was then informed that this was a Telemedicine visit and was being conducted confidentially over secure lines. My office door was closed. No one else was in the room with me.. Patient acknowledged consent and understanding of privacy and security of the Telemedicine visit and gave permission to have a telemedicine presenter stay in the room in order to assist with the history and to conduct the exam as needed. I informed the patient that I have reviewed their record in [employer] and presented the opportunity for them to ask any questions regarding the visit today. The patient agreed to participate. Commitment Status: 201 Review: Case Reviewed in Treatment Team and Nursing Notes Past 24 Hours Reviewed SUBJECTIVE: Brittney Jimenez is seen for follow up today. Chart reviewed. No acute events through the night. Brittney reports having the first good night's sleep last night in a long time. Regarding depression,she states that she is feeling 'less worthless' than when she initially came to the hospital. She remains anxious about potential discharge on Sunday, but is still considering it. She agrees to further titration of her Cymbalta today. Medication Compliance: compliant with all prescribed medicines PRN Medication Utilization: None psychiatric in nature. Participating in Treatment: selective attendance Current Medication List: Current Facility-Administered Medications Medication Dose Route Frequency Provider Pregabalin (Lyrica) cap 150 mg 150 mg Oral TID(AM/NOON/HS) Ayala Adrian PA-C LORazepam (Ativan) tab 1 mg 1 mg Oral Q6H PRN Cem Archer MD Or LORazepam (Ativan) inj 2 mg 2 mg Intramuscular Q6H PRN Cem Archer MD DULoxetine (Cymbalta) DR cap 30 mg 30 mg Oral Daily(AM) Delores De Jesus MD Ferrous Sulfate (Feosol) tab 325 mg 325 mg Oral Daily Noon Delores De Jesus MD Acetaminophen (Tylenol) tab 325 mg 325 mg Oral Q4H PRN Delores De Jesus MD Or Acetaminophen (Tylenol) tab 650 mg 650 mg Oral Q6H PRN Delores De Jesus MD Or Acetaminophen (Tylenol) tab 975 mg 975 mg Oral Q6H PRN Delores De Jesus MD Haloperidol (Haldol) tab 5 mg 5 mg Oral Q6H PRN Delores De Jesus MD Or Haloperidol Lactate (Haldol) 5 MG/ML inj 5 mg 5 mg Intramuscular Q6H PRN Delores De Jesus MD home medication stored in pharmacy Does Not Apply Daily(AM) Delores De Jesus MD house antacid (Mi-Acid II) oral susp 15 mL 15 mL Oral Q4H PRN Delores De Jesus MD hydrOXYzine HCl tab 50 mg 50 mg Oral Q6H PRN Delores De Jesus MD milk of magnesia (Mom) oral susp 30 mL 30 mL Oral Daily PRN Delores De Jesus MD ARIPiprazole (Abilify) tab 15 mg 15 mg Oral HS Avelina Wood PA-C busPIRone (Buspar) tab 10 mg 10 mg Oral BID(AM/PM) Avelina Wood PA-C Cetirizine (ZyrTEC) tab 10 mg 10 mg Oral Daily(AM) Avelina Wood PA-C lamoTRIgine (LaMICtal) tab 100 mg 100 mg Oral BID(AM/PM) Avelina Wood PA-C montelukast (Singulair) tab 10 mg 10 mg Oral HS Avelina Wood PA-C omeprazole (PriLOSEC) cap 20 mg 20 mg Oral Daily(AM) Avelina Wood PA-C potassium chloride ER tab 10 mEq 10 mEq Oral Daily(AM) Avelina Wood PA-C traZODone (Desyrel) tab 50 mg 50 mg Oral QHS PRN MRx1 Avelina Wood PA-C MENTAL STATUS EVALUATION: Appearance: age-appropriate, casually dressed, and morbidly obese Gait and Station: uses walker for ambulation Personal Presentation: calm and cooperative Behavior: appropriate within the milieu Speech: normal rate, low volume, and normal rhythm, good eye contact Mood: "a little better" Affect: type - dysthymic again today Thought Process: Structure: organized, linear Associations: intact Thought Content: Hallucinations: denies Severity: N/A Delusions: denies Severity: N/A Other: none of concern Suicide Risk (-) Suicidal ideation, intent or plan Aggression Risk: denies thoughts/plans/or intent to harm or kill anyone else Orientation: alert and oriented to person, place, time and situation Recent and remote memory: intact Fund of knowledge: no significant deficits noted Attention span/concentration as evidenced by: ability to sustain attention to examiner - intact Insight: fair, acknowledges presence of mental illness and acknowledges the need for treatment Judgment: fair, willing to participate in treatment PHYSICAL/CONSULT/LAB FINDINGS: BP: 124 mmHg/77 mmHg (07/18/24 0600) Pulse: 91 (07/18/24 0600) Resp: 18 (07/18/24 0600) Temp: 36.78 C (07/18/24 0600) Temp Summary: No data recorded SpO2: 99 % (07/09/24 1221) Labs reviewed as indicated below: No results found for this or any previous visit (from the past 48 hours). DANGEROUSNESS TO SELF/OTHERS ASSESSMENT UPDATE: medication changes per Treatment Plan PATIENT REPORTED DEPRESSION SCREENING (PHQ9): PHQ9 Survey Results Last 24hours (since 07/18/2024) None DIAGNOSIS: Principal Problem: Bipolar disorder, current episode depressed, moderate (HCC) Active Problems: LYNSEY (generalized anxiety disorder) PTSD (post-traumatic stress disorder) Resolved Problems: * No resolved hospital problems. * ASSESSMENT: Brittney Jimenez is a 49 year old female with a past psychiatric history of bipolar disorder, PTSD, LYNSEY who was admitted to the Inpatient Psychiatric Unit at [facility] ([facility]) on 07/09/2024 on a 201 (voluntary) commitment for worsening depression and passive suicidal ideation. Her last inpatient admission was in 2018 to our unit for a similar presentation. On encounter, patient exhibiting clinical symptoms of depression as evidenced by depressed mood, feeling worthless, with lack of motivation and energy, hypersomnia, and diminished appetite. She does admit to prior diagnosis of bipolar disorder and mentions she has experienced mood swings, irritability, mood elevation and racing thoughts in the past. She does not exhibit these symptoms on admission. Patient attributes depression to her medical illness/wounds and chronic pain. She has been experiencing passive deathwishes but denies active suicidal intent or plan. Denies AVH/HI. BUTTON CUTTER medications restarted as she mentioned these have been helpful. Will work on tapering and discontinuing Wellbutrin while Duloxetine is continued and titrated to further aid with depressive symptomatology and chronic pain. Checked BMP on 07/15 as patient is receiving K+ supplementation - normal ay 4.7. No change to medications needed. As of 07/15 patient reported improvement, but on 07/16/24 became acutely anxious again and does not feel ready to leave. Continues to report depression and anxiety as of 07/17/24. Encouraged increasing Cymbalta dose, but she is ambivalent to this. Will postpone discharge for now and assess forimprovement. Tentative discharge Sunday07/21/24. Cymbalta increased on 07/19/24. PLAN: Reviewed with treatment team. Inpatient psychiatric care is necessary because of of suicidal potential . Plan of care includes: 1) 201 (voluntary) commitment 2) Safety Q15 minute checks 3) Supportive milieu and group therapy 4) Safe discharge planning Anticipated duration of admission: 7-10 days Patient will need referrals to community services 5) Psychotropic Medications Continue BUTTON CUTTER Abilify 15 mg PO HS for mood regulation Continue BUTTON CUTTER Buspar 10 mg PO BID for LYNSEY Continue BUTTON CUTTER Lamictal 100 mg PO BID for mood regulation Cymbalta to 60 mg PO daily (last increased on 07/19) 6) Medical Medications Continue home medications as prescribed based on the medication reconciliation Zyrtec 10 mg PO daily Singulair 10 mg PO HS Prilosec 20 mg PO daily Lyrica 150 mg PO TID 7) Labs Medically cleared prior to psychiatric admission. Pertinent review of labs as indicated below: CBC: Hgb/HCT (10.8/35.6) Iron screen w/ TIBC: Iron (21), IBD (252), TSP (8) Ferrous sulfate 325 mg PO daily (at noon) CMP: Bun/Cr (35/0.9), AST/ALT (16/14), no electrolyte abnormalities as all WNL TSH: WNL (1.83) UDS: (+) Amphetamines--> most likely false positive reading from Wellbutrin Ethanol (-) Vitamin D: 20 ng/mL On antipsychotic therapy: HgbA1C: 4.8% Lipid panel: HDL mildly low (48), rest unremarkable 9) Wound consult for assessment of lower extremity wounds - as per recommendations: BLE wounds chronic lymphedema: -Unna boots to BL lower legs, change 3x/wk (M-W-F while in hospital to maintain dressing ingretity) -daily wound care w/ soap & water, Vaseline gauze and DD to wounds not covered w/ Unna boot. Intertriginous dermatitis BL folds: -cleanse daily w/ soap & water. Dry thoroughly. -may use either Miconazole powder BID and dry gauze or Interdry daily. Wound care will follow while in house. Treatment options and alternatives reviewed with patient and they agree with the above plan. Information about current medications was provided to the patient including reasons why medicationsare being used, risks, benefits, side effects and alternatives to treatment (including no treatment). I spent a total of 36 minutes coordinating, documenting, and providing care for this patient excluding time spent in the performance of separately billed services or time spent by another provider/QHP. * Ayala Adrian PA-C - 07/18/2024 7:59 AM EST PHYSICIAN PROGRESS NOTE INPATIENT PSYCHIATRY [address] [address] Name: Brittney Jimenez Location: [facility] [id number] Date: 07/18/2024 Time: 7:59 AM Commitment Status: 201 Review: Case Reviewed in Treatment Team and Nursing Notes Past 24 Hours Reviewed SUBJECTIVE: Brittney Jimenez is seen for follow up today. Chart reviewed. No acute events through the night. Brittney reports feeling "tired" today. She did not sleep last night due to increased pain in her knees. Her mood remains stable and continues to slowly improve. Depression is rated a 4/10 (with 10 being the worst). Anxiety is rated a 2/10 (with 10 being the worst). Denies suicidal ideation, homicidal ideation, auditory or visual hallucinations, or delusions. Sleep is poor due to pain, but appetiteis remaining good. She has been compliant with all medications. Denies medication side effects suchas fatigue, headache, dizziness, changes in vision, chest pain, shortness of breath, nausea, vomiting, dysuria, diarrhea, constipation, abdominal pain, tremors, abnormal facial movements, or restlessness. She continues to attend group therapy and feels it has been helpful for learning coping skills. Medication Compliance: compliant with all prescribed medicines PRN Medication Utilization: None psychiatric in nature. Participating in Treatment: selective attendance Current Medication List: Current Facility-Administered Medications Medication Dose Route Frequency Provider Pregabalin (Lyrica) cap 150 mg 150 mg Oral TID(AM/NOON/HS) Ayala Adrian PA-C LORazepam (Ativan) tab 1 mg 1 mg Oral Q6H PRN Cem Archer MD Or LORazepam (Ativan) inj 2 mg 2 mg Intramuscular Q6H PRN Cem Archer MD DULoxetine (Cymbalta) DR cap 30 mg 30 mg Oral Daily(AM) Delores De Jesus MD Ferrous Sulfate (Feosol) tab 325 mg 325 mg Oral Daily Noon Delores De Jesus MD Acetaminophen (Tylenol) tab 325 mg 325 mg Oral Q4H PRN Delores De Jesus MD Or Acetaminophen (Tylenol) tab 650 mg 650 mg Oral Q6H PRN Delores De Jesus MD Or Acetaminophen (Tylenol) tab 975 mg 975 mg Oral Q6H PRN Delores De Jesus MD Haloperidol (Haldol) tab 5 mg 5 mg Oral Q6H PRN Delores De Jesus MD Or Haloperidol Lactate (Haldol) 5 MG/ML inj 5 mg 5 mg Intramuscular Q6H PRN Delores De Jesus MD home medication stored in pharmacy Does Not Apply Daily(AM) Delores De Jesus MD house antacid (Mi-Acid II) oral susp 15 mL 15 mL Oral Q4H PRN Delores De Jesus MD hydrOXYzine HCl tab 50 mg 50 mg Oral Q6H PRN Delores De Jesus MD milk of magnesia (Mom) oral susp 30 mL 30 mL Oral Daily PRN Delores De Jesus MD ARIPiprazole (Abilify) tab 15 mg 15 mg Oral HS Avelina Wood PA-C busPIRone (Buspar) tab 10 mg 10 mg Oral BID(AM/PM) Avelina Wood PA-C Cetirizine (ZyrTEC) tab 10 mg 10 mg Oral Daily(AM) Avelina Wood PA-C lamoTRIgine (LaMICtal) tab 100 mg 100 mg Oral BID(AM/PM) Avelina Wood PA-C montelukast (Singulair) tab 10 mg 10 mg Oral HS Avelina Wood PA-C omeprazole (PriLOSEC) cap 20 mg 20 mg Oral Daily(AM) Avelina Wood PA-C potassium chloride ER tab 10 mEq 10 mEq Oral Daily(AM) Avelina Wood PA-C traZODone (Desyrel) tab 50 mg 50 mg Oral QHS PRN MRx1 Avelina Wood PA-C MENTAL STATUS EVALUATION: Appearance: age-appropriate, casually dressed, and morbidly obese Gait and Station: uses walker for ambulation Personal Presentation: calm and cooperative Behavior: appropriate within the milieu Speech: normal rate, low volume, and normal rhythm, good eye contact Mood: "tired" Affect: type - dysthymic and anxious; range - constricted; lability - no Thought Process: Structure: organized, linear Associations: intact Thought Content: Hallucinations: denies Severity: N/A Delusions: denies Severity: N/A Other: none of concern Suicide Risk (-) Suicidal ideation, intent or plan Aggression Risk: denies thoughts/plans/or intent to harm or kill anyone else Orientation: alert and oriented to person, place, time and situation Recent and remote memory: intact Fund of knowledge: no significant deficits noted Attention span/concentration as evidenced by: ability to sustain attention to examiner - intact Insight: fair, acknowledges presence of mental illness and acknowledges the need for treatment Judgment: fair, willing to participate in treatment PHYSICAL/CONSULT/LAB FINDINGS: BP: 124 mmHg/77 mmHg (07/18/24 0600) Pulse: 91 (07/18/24 0600) Resp: 18 (07/18/24 0600) Temp: 36.78 C (07/18/24 0600) Temp Summary: Temp Min: 36.8 C (98.2 F) Max: 36.8 C (98.2 F) SpO2: 99 % (07/09/24 1221) Labs reviewed as indicated below: No results found for this or any previous visit (from the past 48 hours). DANGEROUSNESS TO SELF/OTHERS ASSESSMENT UPDATE: medication changes per Treatment Plan PATIENT REPORTED DEPRESSION SCREENING (PHQ9): PHQ9 Survey Results Last 24hours (since 07/17/2024) None DIAGNOSIS: Principal Problem: Bipolar disorder, current episode depressed, moderate (HCC) Active Problems: LYNSEY (generalized anxiety disorder) PTSD (post-traumatic stress disorder) Resolved Problems: * No resolved hospital problems. * ASSESSMENT: Brittney Jimenez is a 49 year old female with a past psychiatric history of bipolar disorder, PTSD, LYNSEY who was admitted to the Inpatient Psychiatric Unit at [facility] ([facility]) on 07/09/2024 on a 201 (voluntary) commitment for worsening depression and passive suicidal ideation. Her last inpatient admission was in 2018 to our unit for a similar presentation. On encounter, patient exhibiting clinical symptoms of depression as evidenced by depressed mood, feeling worthless, with lack of motivation and energy, hypersomnia, and diminished appetite. She does admit to prior diagnosis of bipolar disorder and mentions she has experienced mood swings, irritability, mood elevation and racing thoughts in the past. She does not exhibit these symptoms on admission. Patient attributes depression to her medical illness/wounds and chronic pain. She has been experiencing passive deathwishes but denies active suicidal intent or plan. Denies AVH/HI. BUTTON CUTTER medications restarted as she mentioned these have been helpful. Will work on tapering and discontinuing Wellbutrin while Duloxetine is continued and titrated to further aid with depressive symptomatology and chronic pain. Checked BMP on 07/15 as patient is receiving K+ supplementation - normal ay 4.7. No change to medications needed. As of 07/15 patient reported improvement, but on 07/16/24 became acutely anxious again and does not feel ready to leave. Continues to report depression and anxiety as of 07/17/24. Encouraged increasing Cymbalta dose, but she is ambivalent to this. Will postpone discharge for now and assess forimprovement. Tentative discharge Sunday07/21/24. PLAN: Reviewed with Dr. Archer and treatment team. Inpatient psychiatric care is necessary because of of suicidal potential . Plan of care includes: 1) 201 (voluntary) commitment 2) Safety Q15 minute checks 3) Supportive milieu and group therapy 4) Safe discharge planning Anticipated duration of admission: 7-10 days Current length of stay: 8 days Patient will need referrals to community services 5) Psychotropic Medications Continue BUTTON CUTTER Abilify 15 mg PO HS for mood regulation Continue BUTTON CUTTER Buspar 10 mg PO BID for LYNSEY Continue BUTTON CUTTER Lamictal 100 mg PO BID for mood regulation Cymbalta to 30 mg PO daily (last increased on 07/12) 6) Medical Medications Continue home medications as prescribed based on the medication reconciliation Zyrtec 10 mg PO daily Singulair 10 mg PO HS Prilosec 20 mg PO daily Lyrica 150 mg PO TID 7) Labs Medically cleared prior to psychiatric admission. Pertinent review of labs as indicated below: CBC: Hgb/HCT (10.8/35.6) Iron screen w/ TIBC: Iron (21), IBD (252), TSP (8) Ferrous sulfate 325 mg PO daily (at noon) CMP: Bun/Cr (35/0.9), AST/ALT (16/14), no electrolyte abnormalities as all WNL TSH: WNL (1.83) UDS: (+) Amphetamines--> most likely false positive reading from Wellbutrin Ethanol (-) Vitamin D: 20 ng/mL On antipsychotic therapy: HgbA1C: 4.8% Lipid panel: HDL mildly low (48), rest unremarkable 9) Wound consult for assessment of lower extremity wounds - as per recommendations: BLE wounds chronic lymphedema: -Unna boots to BL lower legs, change 3x/wk (-W- while in hospital to maintain dressing ingretity) -daily wound care w/ soap & water, Vaseline gauze and DD to wounds not covered w/ Unna boot. Intertriginous dermatitis BL folds: -cleanse daily w/ soap & water. Dry thoroughly. -may use either Miconazole powder BID and dry gauze or Interdry daily. Wound care will follow while in house. Treatment options and alternatives reviewed with patient and they agree with the above plan. Information about current medications was provided to the patient including reasons why medicationsare being used, risks, benefits, side effects and alternatives to treatment (including no treatment). I spent a total of 36 minutes coordinating, documenting, and providing care for this patient excluding time spent in the performance of separately billed services or time spent by another provider/QHP. Signature: Ayala Adrian PA-C 07/18/2024 1:50 PM Cosigned by Cem Archer MD at 07/19/2024 5:53 AM EST Associated attestation - Cem Archer MD - 07/19/2024 5:53 AM EST I have reviewed the advanced practitioner's documentation on the date of service referenced in note, and I agree with, and take responsibility for the plan of care. I spent a total of 15 minutes coordinating, documenting, and providing care for this patient excluding time spent in the performance of separately billed services or time spent by another provider/QHP. * Ayala Adrian PA-C - 07/17/2024 10:41 AM EST PHYSICIAN PROGRESS NOTE INPATIENT PSYCHIATRY [address] [address] Name: Brittney Jimenez Location: [facility] [id number] Date: 07/17/2024 Time: 10:41 AM Commitment Status: 201 Review: Case Reviewed in Treatment Team and Nursing Notes Past 24 Hours Reviewed SUBJECTIVE: Brittney Jimenez is seen for follow up today. Chart reviewed. No acute events through the night. Brittney continues to be anxious regarding discharge and is reporting more depression in the last 24 hours as well. Last evening she reports her depression was a 6/10 (with 10 being the worst) and although it is better today, it is still there. She feels it improved slightly because of a visit from her roommate and friend. She still does not feel ready to discharge home. Denies suicidal ideation, homicidal ideation, auditory or visual hallucinations, or delusions today. Sleep and appetite have been good and she has remained compliant with all medications. Does report feeling tired during the day and feels this is due to how often she takes Lyrica. She says it was increased to QID a couple months ago and since then she has felt more tired. Does not feel she had good pain relief from the medication and asks to have her dose decreased so she does not feel as tired. Decreased the dose from QID dosing to TID dosing and she was amenable with this plan. SHE continues to attend group therapy and feels she is learning to coping skills to help with her anxiety and depression. She is once again encouraged to increase her Cymbalta dose given reports of depression and anxiety, but remains ambivalent to this. Feels as though being in the supportive environment will give her the boost she needs to be ready for discharge by Sunday07/21/24. Medication Compliance: compliant with all prescribed medicines PRN Medication Utilization: None psychiatric in nature. Participating in Treatment: selective attendance Current Medication List: Current Facility-Administered Medications Medication Dose Route Frequency Provider Pregabalin (Lyrica) cap 150 mg 150 mg Oral TID(AM/NOON/HS) Ayala Adrian PA-C LORazepam (Ativan) tab 1 mg 1 mg Oral Q6H PRN Cem Archer MD Or LORazepam (Ativan) inj 2 mg 2 mg Intramuscular Q6H PRN Cem Archer MD DULoxetine (Cymbalta) DR cap 30 mg 30 mg Oral Daily(AM) Delores De Jesus MD Ferrous Sulfate (Feosol) tab 325 mg 325 mg Oral Daily Noon Delores De Jesus MD Acetaminophen (Tylenol) tab 325 mg 325 mg Oral Q4H PRN Delores De Jesus MD Or Acetaminophen (Tylenol) tab 650 mg 650 mg Oral Q6H PRN Delores De Jesus MD Or Acetaminophen (Tylenol) tab 975 mg 975 mg Oral Q6H PRN Delores De Jesus MD Haloperidol (Haldol) tab 5 mg 5 mg Oral Q6H PRN Delores De Jesus MD Or Haloperidol Lactate (Haldol) 5 MG/ML inj 5 mg 5 mg Intramuscular Q6H PRN Delores De Jesus MD home medication stored in pharmacy Does Not Apply Daily(AM) Delores De Jesus MD house antacid (Mi-Acid II) oral susp 15 mL 15 mL Oral Q4H PRN Delores De Jesus MD hydrOXYzine HCl tab 50 mg 50 mg Oral Q6H PRN Delores De Jesus MD milk of magnesia (Mom) oral susp 30 mL 30 mL Oral Daily PRN Delores De Jesus MD ARIPiprazole (Abilify) tab 15 mg 15 mg Oral HS Avelina Wood PA-C busPIRone (Buspar) tab 10 mg 10 mg Oral BID(AM/PM) Avelina Wood PA-C Cetirizine (ZyrTEC) tab 10 mg 10 mg Oral Daily(AM) Avelina Wood PA-C lamoTRIgine (LaMICtal) tab 100 mg 100 mg Oral BID(AM/PM) Avelina Wood PA-C montelukast (Singulair) tab 10 mg 10 mg Oral HS Avelina Wood PA-C omeprazole (PriLOSEC) cap 20 mg 20 mg Oral Daily(AM) Avelina Wood PA-C potassium chloride ER tab 10 mEq 10 mEq Oral Daily(AM) Avelina Wood PA-C traZODone (Desyrel) tab 50 mg 50 mg Oral QHS PRN MRx1 Avelina Wood PA-C MENTAL STATUS EVALUATION: Appearance: age-appropriate, casually dressed, and morbidly obese Gait and Station: uses walker for ambulation Personal Presentation: calm and cooperative Behavior: appropriate within the milieu Speech: normal rate, low volume, and normal rhythm, good eye contact Mood: "okay" Affect: type - dysthymic and anxious; range - constricted; lability - no Thought Process: Structure: organized, linear Associations: intact Thought Content: Hallucinations: denies Severity: N/A Delusions: denies Severity: N/A Other: none of concern Suicide Risk (-) Suicidal ideation, intent or plan Aggression Risk: denies thoughts/plans/or intent to harm or kill anyone else Orientation: alert and oriented to person, place, time and situation Recent and remote memory: intact Fund of knowledge: no significant deficits noted Attention span/concentration as evidenced by: ability to sustain attention to examiner - intact Insight: fair, acknowledges presence of mental illness and acknowledges the need for treatment Judgment: fair, willing to participate in treatment PHYSICAL/CONSULT/LAB FINDINGS: BP: 103 mmHg/63 mmHg (07/17/24 0700) Pulse: 87 (12/12/24 0700) Resp: 18 (07/17/24 0700) Temp: 36.72 C (07/17/24 0700) Temp Summary: Temp Min: 36.7 C (98.1 F) Max: 36.7 C (98.1 F) SpO2: 99 % (07/09/24 1221) Labs reviewed as indicated below: No results found for this or any previous visit (from the past 48 hours). DANGEROUSNESS TO SELF/OTHERS ASSESSMENT UPDATE: medication changes per Treatment Plan PATIENT REPORTED DEPRESSION SCREENING (PHQ9): PHQ9 Survey Results Last 24hours (since 07/16/2024) None DIAGNOSIS: Principal Problem: Bipolar disorder, current episode depressed, moderate (HCC) Active Problems: LYNSEY (generalized anxiety disorder) PTSD (post-traumatic stress disorder) Resolved Problems: * No resolved hospital problems. * ASSESSMENT: Brittney Jimenez is a 49 year old female with a past psychiatric history of bipolar disorder, PTSD, LYNSEY who was admitted to the Inpatient Psychiatric Unit at [facility] ([facility]) on 07/09/2024 on a 201 (voluntary) commitment for worsening depression and passive suicidal ideation. Her last inpatient admission was in 2018 to our unit for a similar presentation. On encounter, patient exhibiting clinical symptoms of depression as evidenced by depressed mood, feeling worthless, with lack of motivation and energy, hypersomnia, and diminished appetite. She does admit to prior diagnosis of bipolar disorder and mentions she has experienced mood swings, irritability, mood elevation and racing thoughts in the past. She does not exhibit these symptoms on admission. Patient attributes depression to her medical illness/wounds and chronic pain. She has been experiencing passive deathwishes but denies active suicidal intent or plan. Denies AVH/HI. BUTTON CUTTER medications restarted as she mentioned these have been helpful. Will work on tapering and discontinuing Wellbutrin while Duloxetine is continued and titrated to further aid with depressive symptomatology and chronic pain. Checked BMP on 07/15 as patient is receiving K+ supplementation - normal ay 4.7. No change to medications needed. As of 07/15 patient reported improvement, but on 07/16/24 became acutely anxious again and does not feel ready to leave. Continues to report depression and anxiety as of 07/17/24. Encouraged increasing Cymbalta dose, but she is ambivalent to this. Will postpone discharge for now and assess forimprovement. Tentative discharge Sunday07/21/24. PLAN: Reviewed with Dr. Archer and treatment team. Inpatient psychiatric care is necessary because of of suicidal potential . Plan of care includes: 1) 201 (voluntary) commitment 2) Safety Q15 minute checks 3) Supportive milieu and group therapy 4) Safe discharge planning Anticipated duration of admission: 7-10 days Current length of stay: 7 days Patient will need referrals to community services 5) Psychotropic Medications Continue BUTTON CUTTER Abilify 15 mg PO HS for mood regulation Continue BUTTON CUTTER Buspar 10 mg PO BID for LYNSEY Continue BUTTON CUTTER Lamictal 100 mg PO BID for mood regulation Cymbalta to 30 mg PO daily (last increased on 07/12) 6) Medical Medications Continue home medications as prescribed based on the medication reconciliation Zyrtec 10 mg PO daily Singulair 10 mg PO HS Prilosec 20 mg PO daily Decrease: Lyrica 150 mg PO TID 7) Labs Medically cleared prior to psychiatric admission. Pertinent review of labs as indicated below: CBC: Hgb/HCT (10.8/35.6) Iron screen w/ TIBC: Iron (21), IBD (252), TSP (8) Ferrous sulfate 325 mg PO daily (at noon) CMP: Bun/Cr (35/0.9), AST/ALT (16/14), no electrolyte abnormalities as all WNL TSH: WNL (1.83) UDS: (+) Amphetamines--> most likely false positive reading from Wellbutrin Ethanol (-) Vitamin D: 20 ng/mL On antipsychotic therapy: HgbA1C: 4.8% Lipid panel: HDL mildly low (48), rest unremarkable 9) Wound consult for assessment of lower extremity wounds - as per recommendations: BLE wounds chronic lymphedema: -Unna boots to BL lower legs, change 3x/wk (M-W- while in hospital to maintain dressing ingretity) -daily wound care w/ soap & water, Vaseline gauze and DD to wounds not covered w/ Unna boot. Intertriginous dermatitis BL folds: -cleanse daily w/ soap & water. Dry thoroughly. -may use either Miconazole powder BID and dry gauze or Interdry daily. Wound care will follow while in house. Treatment options and alternatives reviewed with patient and they agree with the above plan. Information about current medications was provided to the patient including reasons why medicationsare being used, risks, benefits, side effects and alternatives to treatment (including no treatment). I spent a total of 36 minutes coordinating, documenting, and providing care for this patient excluding time spent in the performance of separately billed services or time spent by another provider/QHP. Signature: Ayala Adrian PA-C 07/17/2024 11:43 AM * Ayala Adrian PA-C - 07/16/2024 7:59 AM EST PHYSICIAN PROGRESS NOTE INPATIENT PSYCHIATRY [facility] [address] Name: Brittney Jimenez Location: [facility] [id number] Date: 07/16/2024 Time: 7:59 AM Commitment Status: 201 Review: Case Reviewed in Treatment Team and Nursing Notes Past 24 Hours Reviewed SUBJECTIVE: Brittney Jimenez is seen for follow up today. Chart reviewed. No acute events through the night. Brittney reports feeling more anxious today and rates this a 7/10 (with 10 being the worst). She attributes this to the thought of going home tomorrow and relays she does not feel ready to go. She denies being anxious about anything specific, but is worried she will become depressed again. She has been practicing deep breathing which has been helpful for increased anxiety levels. She denies suicidal ideation, homicidal ideation, auditory or visual hallucinations, or delusions today. Sleep is disrupted due to need to void still, but appetite is good. She is going to all groups and participating well. Denies any medication side effects such as fatigue, headache, dizziness, changes in vision, chest pain, shortness of breath, nausea, vomiting, dysuria, diarrhea, constipation, abdominal pain, tremors, abnormal facial movements, or restlessness. We discuss an increase in her Cymbalta for anxiety, but she does not feel this is necessary. She feels a few more days of groups will be helpful to learn more coping skills. Medication Compliance: compliant with all prescribed medicines PRN Medication Utilization: None psychiatric in nature. Participating in Treatment: selective attendance Current Medication List: Current Facility-Administered Medications Medication Dose Route Frequency Provider LORazepam (Ativan) tab 1 mg 1 mg Oral Q6H PRN Cem Archer MD Or LORazepam (Ativan) inj 2 mg 2 mg Intramuscular Q6H PRN Cem Archer MD DULoxetine (Cymbalta) DR cap 30 mg 30 mg Oral Daily(AM) Delores De Jesus MD Ferrous Sulfate (Feosol) tab 325 mg 325 mg Oral Daily Noon Delores De Jesus MD Acetaminophen (Tylenol) tab 325 mg 325 mg Oral Q4H PRN Delores De Jesus MD Or Acetaminophen (Tylenol) tab 650 mg 650 mg Oral Q6H PRN Delores De Jesus MD Or Acetaminophen (Tylenol) tab 975 mg 975 mg Oral Q6H PRN Delores De Jesus MD Haloperidol (Haldol) tab 5 mg 5 mg Oral Q6H PRN Delores De Jesus MD Or Haloperidol Lactate (Haldol) 5 MG/ML inj 5 mg 5 mg Intramuscular Q6H PRN Delores De Jesus MD home medication stored in pharmacy Does Not Apply Daily(AM) Delores De Jesus MD house antacid (Mi-Acid II) oral susp 15 mL 15 mL Oral Q4H PRN Delores De Jesus MD hydrOXYzine HCl tab 50 mg 50 mg Oral Q6H PRN Delores De Jesus MD milk of magnesia (Mom) oral susp 30 mL 30 mL Oral Daily PRN Delores De Jesus MD ARIPiprazole (Abilify) tab 15 mg 15 mg Oral HS Avelina Wood PA-C busPIRone (Buspar) tab 10 mg 10 mg Oral BID(AM/PM) Avelina Wood PA-C Cetirizine (ZyrTEC) tab 10 mg 10 mg Oral Daily(AM) Avelina Wood PA-C lamoTRIgine (LaMICtal) tab 100 mg 100 mg Oral BID(AM/PM) Avelina Wood PA-C montelukast (Singulair) tab 10 mg 10 mg Oral HS Avelina Wood PA-C omeprazole (PriLOSEC) cap 20 mg 20 mg Oral Daily(AM) Avelina Wood PA-C potassium chloride ER tab 10 mEq 10 mEq Oral Daily(AM) Avelina Wood PA-C Pregabalin (Lyrica) cap 150 mg 150 mg Oral QID(AM/NOON/PM/HS) Avelina Wood PA-C traZODone (Desyrel) tab 50 mg 50 mg Oral QHS PRN MRx1 Avelina Wood PA-C MENTAL STATUS EVALUATION: Appearance: age-appropriate, casually dressed, and morbidly obese Gait and Station: uses walker for ambulation Personal Presentation: calm and cooperative Behavior: appropriate within the milieu Speech: normal rate, low volume, and normal rhythm, good eye contact Mood: "anxious" Affect: type - dysthymic and anxious; range - constricted; lability - no Thought Process: Structure: organized, linear Associations: intact Thought Content: Hallucinations: denies Severity: N/A Delusions: denies Severity: N/A Other: none of concern Suicide Risk (-) Suicidal ideation, intent or plan Aggression Risk: denies thoughts/plans/or intent to harm or kill anyone else Orientation: alert and oriented to person, place, time and situation Recent and remote memory: intact Fund of knowledge: no significant deficits noted Attention span/concentration as evidenced by: ability to sustain attention to examiner - intact Insight: fair, acknowledges presence of mental illness and acknowledges the need for treatment Judgment: fair, willing to participate in treatment PHYSICAL/CONSULT/LAB FINDINGS: BP: 120 mmHg/71 mmHg (07/16/24 0600) Pulse: 94 (07/16/24 0600) Resp: 18 (07/16/24 0600) Temp: 36.72 C (07/16/24 06) Temp Summary: Temp Min: 36.7 C (98.1 F) Max: 36.7 C (98.1 F) SpO2: 99 % (07/09/24 1221) Labs reviewed as indicated below: Recent Results (from the past 48 hours) BASIC METABOLIC PANEL Collection Time: 07/15/24 11:27 AM Result Value Ref Range BUN 28 (H) 6 - 20 mg/dL CREATININE 1.0 0.5 - 1.0 mg/dL EGFR 66 >=60 mL/min SODIUM 138 135 - 146 mmol/L POTASSIUM 4.7 3.5 - 5.1 mmol/L CHLORIDE 100 98 - 107 mmol/L CO2 28 22 - 32 mmol/L ANION GAP 10 7 - 15 mmol/L GLUCOSE 122 (H) 70 - 120 mg/dL CALCIUM 9.5 8.4 - 10.2 mg/dL DANGEROUSNESS TO SELF/OTHERS ASSESSMENT UPDATE: medication changes per Treatment Plan PATIENT REPORTED DEPRESSION SCREENING (PHQ9): PHQ9 Survey Results Last 24hours (since 07/15/2024) None DIAGNOSIS: Principal Problem: Bipolar disorder, current episode depressed, moderate (HCC) Active Problems: LYNSEY (generalized anxiety disorder) PTSD (post-traumatic stress disorder) Resolved Problems: * No resolved hospital problems. * ASSESSMENT: Brittney Jimenez is a 49 year old female with a past psychiatric history of bipolar disorder, PTSD, LYNSEY who was admitted to the Inpatient Psychiatric Unit at [facility] ([facility]) on 07/09/2024 on a 201 (voluntary) commitment for worsening depression and passive suicidal ideation. Her last inpatient admission was in 2018 to our unit for a similar presentation. On encounter, patient exhibiting clinical symptoms of depression as evidenced by depressed mood, feeling worthless, with lack of motivation and energy, hypersomnia, and diminished appetite. She does admit to prior diagnosis of bipolar disorder and mentions she has experienced mood swings, irritability, mood elevation and racing thoughts in the past. She does not exhibit these symptoms on admission. Patient attributes depression to her medical illness/wounds and chronic pain. She has been experiencing passive deathwishes but denies active suicidal intent or plan. Denies AVH/HI. BUTTON CUTTER medications restarted as she mentioned these have been helpful. Will work on tapering and discontinuing Wellbutrin while Duloxetine is continued and titrated to further aid with depressive symptomatology and chronic pain. Checked BMP on 07/15 as patient is receiving K+ supplementation - normal ay 4.7. No change to medications needed. As of 07/15 patient reported improvement, but on 07/16/24 became acutely anxious again and does not feel ready to leave. Will postpone discharge for now. Offered increase in Cymbalta, but she declined. PLAN: Reviewed with Dr. Archer and treatment team. Inpatient psychiatric care is necessary because of of suicidal potential . Plan of care includes: 1) 201 (voluntary) commitment 2) Safety Q15 minute checks 3) Supportive milieu and group therapy 4) Safe discharge planning Anticipated duration of admission: 5-7 days Current length of stay: 6 days Patient will need referrals to community services 5) Psychotropic Medications Continue BUTTON CUTTER Abilify 15 mg PO HS for mood regulation Continue BUTTON CUTTER Buspar 10 mg PO BID for LYNSEY Continue BUTTON CUTTER Lamictal 100 mg PO BID for mood regulation Cymbalta to 30 mg PO daily (last increased on 07/12) 6) Medical Medications Continue home medications as prescribed based on the medication reconciliation Zyrtec 10 mg PO daily Singulair 10 mg PO HS Prilosec 20 mg PO daily Lyrica 150 mg PO QID 7) Labs Medically cleared prior to psychiatric admission. Pertinent review of labs as indicated below: CBC: Hgb/HCT (10.8/35.6) Iron screen w/ TIBC: Iron (21), IBD (252), TSP (8) Ferrous sulfate 325 mg PO daily (at noon) CMP: Bun/Cr (35/0.9), AST/ALT (16/14), no electrolyte abnormalities as all WNL TSH: WNL (1.83) UDS: (+) Amphetamines--> most likely false positive reading from Wellbutrin Ethanol (-) Vitamin D: 20 ng/mL On antipsychotic therapy: HgbA1C: 4.8% Lipid panel: HDL mildly low (48), rest unremarkable 9) Wound consult for assessment of lower extremity wounds - as per recommendations: BLE wounds chronic lymphedema: -Unna boots to BL lower legs, change 3x/wk (-W- while in hospital to maintain dressing ingretity) -daily wound care w/ soap & water, Vaseline gauze and DD to wounds not covered w/ Unna boot. Intertriginous dermatitis BL folds: -cleanse daily w/ soap & water. Dry thoroughly. -may use either Miconazole powder BID and dry gauze or Interdry daily. Wound care will follow while in house. Treatment options and alternatives reviewed with patient and they agree with the above plan. Information about current medications was provided to the patient including reasons why medicationsare being used, risks, benefits, side effects and alternatives to treatment (including no treatment). I spent a total of 36 minutes coordinating, documenting, and providing care for this patient excluding time spent in the performance of separately billed services or time spent by another provider/QHP. Signature: Ayala Adrian PA-C 07/16/2024 2:56 PM Cosigned by Cem Archer MD at 07/16/2024 5:10 PM EST Associated attestation - Cem Archer MD - 07/16/2024 5:10 PM EST I have reviewed the advanced practitioner's documentation on the date of service referenced in note, and I agree with, and take responsibility for the plan of care. I spent a total of 16 minutes coordinating, documenting, and providing care for this patient excluding time spent in the performance of separately billed services or time spent by another provider/QHP. * Ayala Adrian PA-C - 07/15/2024 7:31 AM EST PHYSICIAN PROGRESS NOTE INPATIENT PSYCHIATRY [address] [id number] Name: Brittney Jimenez Location: [facility] [id number] Date: 07/15/2024 Time: 7:32 AM Commitment Status: 201 Review: Case Reviewed in Treatment Team and Nursing Notes Past 24 Hours Reviewed SUBJECTIVE: Brittney Jimenez is seen for follow up today. Chart reviewed. No acute events through the night. Brittney is feeling "optimistic" today. Depression is rated a 3/10 (with 10 being the worst). Anxietyis rated a 2/10 (with 10 being the worst). Denies suicidal ideation, homicidal ideation, auditory or visual hallucinations, or delusions. Sleep is "not too bad" and appetite is good. She has remainedcompliant with all scheduled medications and denies adverse effects. She does not quite feel ready for discharge yet, but we discussed a plan for and she was amenable to this. Medication Compliance: compliant with all prescribed medicines PRN Medication Utilization: None psychiatric in nature. Participating in Treatment: selective attendance Current Medication List: Current Facility-Administered Medications Medication Dose Route Frequency Provider LORazepam (Ativan) tab 1 mg 1 mg Oral Q6H PRN Cem Archer MD Or LORazepam (Ativan) inj 2 mg 2 mg Intramuscular Q6H PRN Cem Archer MD DULoxetine (Cymbalta) DR cap 30 mg 30 mg Oral Daily(AM) Delores De Jesus MD Ferrous Sulfate (Feosol) tab 325 mg 325 mg Oral Daily Noon Delores De Jesus MD Acetaminophen (Tylenol) tab 325 mg 325 mg Oral Q4H PRN Delorse De Jesus MD Or Acetaminophen (Tylenol) tab 650 mg 650 mg Oral Q6H PRN Delores De Jesus MD Or Acetaminophen (Tylenol) tab 975 mg 975 mg Oral Q6H PRN Delores De Jesus MD Haloperidol (Haldol) tab 5 mg 5 mg Oral Q6H PRN Delores De Jesus MD Or Haloperidol Lactate (Haldol) 5 MG/ML inj 5 mg 5 mg Intramuscular Q6H PRN Delores De Jesus MD home medication stored in pharmacy Does Not Apply Daily(AM) Delores De Jesus MD house antacid (Mi-Acid II) oral susp 15 mL 15 mL Oral Q4H PRN Delores De Jesus MD hydrOXYzine HCl tab 50 mg 50 mg Oral Q6H PRN Delores De Jesus MD milk of magnesia (Mom) oral susp 30 mL 30 mL Oral Daily PRN Delores De Jesus MD ARIPiprazole (Abilify) tab 15 mg 15 mg Oral HS Avelina Wood PA-C busPIRone (Buspar) tab 10 mg 10 mg Oral BID(AM/PM) Avelina Wood PA-C Cetirizine (ZyrTEC) tab 10 mg 10 mg Oral Daily(AM) Avelina Wood PA-C lamoTRIgine (LaMICtal) tab 100 mg 100 mg Oral BID(AM/PM) Avelina Wood PA-C montelukast (Singulair) tab 10 mg 10 mg Oral HS Avelina Wood PA-C omeprazole (PriLOSEC) cap 20 mg 20 mg Oral Daily(AM) Avelina Wood PA-C potassium chloride ER tab 10 mEq 10 mEq Oral Daily(AM) Avelina Wood PA-C Pregabalin (Lyrica) cap 150 mg 150 mg Oral QID(AM/NOON/PM/HS) Avelina Wood PA-C traZODone (Desyrel) tab 50 mg 50 mg Oral QHS PRN MRx1 Avelina Wood PA-C MENTAL STATUS EVALUATION: Appearance: age-appropriate, casually dressed, and morbidly obese Gait and Station: uses walker for ambulation Personal Presentation: calm and cooperative Behavior: appropriate within the milieu Speech: normal rate, low volume, and normal rhythm, good eye contact Mood: "optimistic" Affect: type - dysthymic; range - constricted; lability - no Thought Process: Structure: well organized, linear Associations: intact Thought Content: Hallucinations: denies Severity: N/A Delusions: denies Severity: N/A Other: none of concern Suicide Risk (-) Suicidal ideation, intent or plan Aggression Risk: denies thoughts/plans/or intent to harm or kill anyone else Orientation: alert and oriented to person, place, time and situation Recent and remote memory: intact Fund of knowledge: no significant deficits noted Attention span/concentration as evidenced by: ability to sustain attention to examiner - intact Insight: fair, acknowledges presence of mental illness and acknowledges the need for treatment Judgment: fair, willing to participate in treatment PHYSICAL/CONSULT/LAB FINDINGS: BP: 120 mmHg/81 mmHg (07/15/24 0600) Pulse: 85 (07/15/24 0600) Resp: 18 (07/15/24 0600) Temp: 36.39 C (07/15/24 0600) Temp Summary: Temp Min: 36.4 C (97.5 F) Max: 36.4 C (97.5 F) SpO2: 99 % (07/09/24 1221) Labs reviewed as indicated below: Recent Results (from the past 48 hours) BASIC METABOLIC PANEL Collection Time: 07/15/24 11:27 AM Result Value Ref Range BUN 28 (H) 6 - 20 mg/dL CREATININE 1.0 0.5 - 1.0 mg/dL EGFR 66 >=60 mL/min SODIUM 138 135 - 146 mmol/L POTASSIUM 4.7 3.5 - 5.1 mmol/L CHLORIDE 100 98 - 107 mmol/L CO2 28 22 - 32 mmol/L ANION GAP 10 7 - 15 mmol/L GLUCOSE 122 (H) 70 - 120 mg/dL CALCIUM 9.5 8.4 - 10.2 mg/dL DANGEROUSNESS TO SELF/OTHERS ASSESSMENT UPDATE: medication changes per Treatment Plan PATIENT REPORTED DEPRESSION SCREENING (PHQ9): PHQ9 Survey Results Last 24hours (since 07/14/2024) None DIAGNOSIS: Principal Problem: Bipolar disorder, current episode depressed, moderate (HCC) Active Problems: LYNSEY (generalized anxiety disorder) PTSD (post-traumatic stress disorder) Resolved Problems: * No resolved hospital problems. * ASSESSMENT: Brittney Jimenez is a 49 year old female with a past psychiatric history of bipolar disorder, PTSD, LYNSEY who was admitted to the Inpatient Psychiatric Unit at [facility] ([facility]) on 07/09/2024 on a 201 (voluntary) commitment for worsening depression and passive suicidal ideation. Her last inpatient admission was in 2018 to our unit for a similar presentation. On encounter, patient exhibiting clinical symptoms of depression as evidenced by depressed mood, feeling worthless, with lack of motivation and energy, hypersomnia, and diminished appetite. She does admit to prior diagnosis of bipolar disorder and mentions she has experienced mood swings, irritability, mood elevation and racing thoughts in the past. She does not exhibit these symptoms on admission. Patient attributes depression to her medical illness/wounds and chronic pain. She has been experiencing passive deathwishes but denies active suicidal intent or plan. Denies AVH/HI. BUTTON CUTTER medications restarted as she mentioned these have been helpful. Will work on tapering and discontinuing Wellbutrin while Duloxetine is continued and titrated to further aid with depressive symptomatology and chronic pain. As of 07/15 patient reporting improvement and tentative discharge is scheduled for 07/17/24. Check BMP as patient is receiving K+ supplementation - normal ay 4.7. No change to medications needed. PLAN: Reviewed with Dr. Archer and treatment team. Inpatient psychiatric care is necessary because of of suicidal potential . Plan of care includes: 1) 201 (voluntary) commitment 2) Safety Q15 minute checks 3) Supportive milieu and group therapy 4) Safe discharge planning Anticipated duration of admission: 5-7 days Current length of stay: 5 days Patient will need referrals to community services 5) Psychotropic Medications Continue BUTTON CUTTER Abilify 15 mg PO HS for mood regulation Continue BUTTON CUTTER Buspar 10 mg PO BID for LYNSEY Continue BUTTON CUTTER Lamictal 100 mg PO BID for mood regulation Cymbalta to 30 mg PO daily (last increased on 07/12) 6) Medical Medications Continue home medications as prescribed based on the medication reconciliation Zyrtec 10 mg PO daily Singulair 10 mg PO HS Prilosec 20 mg PO daily Lyrica 150 mg PO QID 7) Labs Medically cleared prior to psychiatric admission. Pertinent review of labs as indicated below: CBC: Hgb/HCT (10.8/35.6) Iron screen w/ TIBC: Iron (21), IBD (252), TSP (8) Ferrous sulfate 325 mg PO daily (at noon) CMP: Bun/Cr (35/0.9), AST/ALT (16/14), no electrolyte abnormalities as all WNL TSH: WNL (1.83) UDS: (+) Amphetamines--> most likely false positive reading from Wellbutrin Ethanol (-) Vitamin D: 20 ng/mL On antipsychotic therapy: HgbA1C: 4.8% Lipid panel: HDL mildly low (48), rest unremarkable 9) Wound consult for assessment of lower extremity wounds - as per recommendations: BLE wounds chronic lymphedema: -Unna boots to BL lower legs, change 3x/wk (-W- while in hospital to maintain dressing ingretity) -daily wound care w/ soap & water, Vaseline gauze and DD to wounds not covered w/ Unna boot. Intertriginous dermatitis BL folds: -cleanse daily w/ soap & water. Dry thoroughly. -may use either Miconazole powder BID and dry gauze or Interdry daily. Wound care will follow while in house. Treatment options and alternatives reviewed with patient and they agree with the above plan. Information about current medications was provided to the patient including reasons why medicationsare being used, risks, benefits, side effects and alternatives to treatment (including no treatment). I spent a total of 36 minutes coordinating, documenting, and providing care for this patient excluding time spent in the performance of separately billed services or time spent by another provider/QHP. Signature: Ayala Adrian PA-C 07/15/2024 3:02 PM * Ayala Adrian PA-C - 07/14/2024 8:22 AM EST PHYSICIAN PROGRESS NOTE INPATIENT PSYCHIATRY [facility] [place] [id number] Name: Brittney Jimenez Location: [facility] [id number] Date: 07/14/2024 Time: 8:22 AM Commitment Status: 201 Review: Case Reviewed in Treatment Team and Nursing Notes Past 24 Hours Reviewed SUBJECTIVE: Brittney Jimenez is seen for follow up today. Chart reviewed. No acute events through the night. Brittney is feeling "good" again today and rates her overall mood am 8/10 (with 10 being the best). Depression is rated a 6/10 (with 10 being the worst) and she is not anxious today. While anxiety is still rated a 6/10, it is improved since admission and nearly back to her reported baseline. Denies smith icidal ideation, homicidal ideation, auditory or visual hallucinations, or delusions. Sleep has been fair, but often has difficulty with chronic knee pain and getting up to use the bathroom several times. Reminded her to take PRN Tylenol before bed to help with knee pain and to limit her fluid intake after dinner. She verbalized understanding. Appetite remains good. She is attending groups and feels they have been helpful for her to learn new coping skills. While she reports liking being aroundothers on the unit and being more social, she declines a referral to Psych Rehab at discharge. She is interested in an individual therapist, which we will secure prior to discharge. She has remained compliant with all medications and denies side effects such as fatigue, headache, dizziness, changesin vision, chest pain, shortness of breath, nausea, vomiting, dysuria, diarrhea, constipation, abdominal pain, tremors, abnormal facial movements, or restlessness. Medication Compliance: compliant with all prescribed medicines PRN Medication Utilization: None psychiatric in nature. Participating in Treatment: selective attendance Current Medication List: Current Facility-Administered Medications Medication Dose Route Frequency Provider LORazepam (Ativan) tab 1 mg 1 mg Oral Q6H PRN Cem Archer MD Or LORazepam (Ativan) inj 2 mg 2 mg Intramuscular Q6H PRN Cem Archer MD DULoxetine (Cymbalta) cap 30 mg 30 mg Oral Daily(AM) Delores De Jesus MD Ferrous Sulfate (Feosol) tab 325 mg 325 mg Oral Daily Noon Delores De Jesus MD Acetaminophen (Tylenol) tab 325 mg 325 mg Oral Q4H PRN Delores De Jesus MD Or Acetaminophen (Tylenol) tab 650 mg 650 mg Oral Q6H PRN Delores De Jesus MD Or Acetaminophen (Tylenol) tab 975 mg 975 mg Oral Q6H PRN Delores De Jesus MD Haloperidol (Haldol) tab 5 mg 5 mg Oral Q6H PRN Delores De Jesus MD Or Haloperidol Lactate (Haldol) 5 MG/ML inj 5 mg 5 mg Intramuscular Q6H PRN Delores De Jesus MD home medication stored in pharmacy Does Not Apply Daily(AM) Delores De Jesus MD house antacid (Mi-Acid II) oral susp 15 mL 15 mL Oral Q4H PRN Delores De Jesus MD hydrOXYzine HCl tab 50 mg 50 mg Oral Q6H PRN Delores De Jesus MD milk of magnesia (Mom) oral susp 30 mL 30 mL Oral Daily PRN Delores De Jesus MD ARIPiprazole (Abilify) tab 15 mg 15 mg Oral HS Avelina Wood PA-C busPIRone (Buspar) tab 10 mg 10 mg Oral BID(AM/PM) Avelina Wood PA-C Cetirizine (ZyrTEC) tab 10 mg 10 mg Oral Daily(AM) Aevlina Wood PA-C lamoTRIgine (LaMICtal) tab 100 mg 100 mg Oral BID(AM/PM) Avelina Wood PA-C montelukast (Singulair) tab 10 mg 10 mg Oral HS Avelina Wood PA-C omeprazole (PriLOSEC) cap 20 mg 20 mg Oral Daily(AM) Avelina Wood PA-C potassium chloride ER tab 10 mEq 10 mEq Oral Daily(AM) Avelina Wood PA-C Pregabalin (Lyrica) cap 150 mg 150 mg Oral QID(AM/NOON/PM/HS) Nina, Avelina Zina, PA-C traZODone (Desyrel) tab 50 mg 50 mg Oral QHS PRN MRx1 Avelina Wood PA-C MENTAL STATUS EVALUATION: Appearance: age-appropriate, casually dressed, and morbidly obese Gait and Station: uses walker for ambulation Personal Presentation: calm and cooperative Behavior: appropriate within the milieu Speech: normal rate, low volume, and normal rhythm, good eye contact Mood: "good" again today Affect: type - dysthymic; range - constricted; lability - no Thought Process: Structure: well organized, linear Associations: intact Thought Content: Hallucinations: denies Severity: N/A Delusions: denies Severity: N/A Other: none of concern Suicide Risk (-) Suicidal ideation, intent or plan Aggression Risk: denies thoughts/plans/or intent to harm or kill anyone else Orientation: alert and oriented to person, place, time and situation Recent and remote memory: intact Fund of knowledge: no significant deficits noted Attention span/concentration as evidenced by: ability to sustain attention to examiner - intact Insight: fair, acknowledges presence of mental illness and acknowledges the need for treatment Judgment: fair, willing to participate in treatment PHYSICAL/CONSULT/LAB FINDINGS: BP: 135 mmHg/73 mmHg (07/14/24 06) Pulse: 89 (07/14/24 06) Resp: 18 (07/14/24 06) Temp: 36.39 C (07/14/24 06) Temp Summary: Temp Min: 36.4 C (97.5 F) Max: 36.4 C (97.5 F) SpO2: 99 % (07/09/24 1221) Labs reviewed as indicated below: Recent Results (from the past 48 hours) CBC Collection Time: 07/13/24 8:07 AM Result Value Ref Range WBC 11.72 (H) 4.00 - 10.80 K/uL RBC 4.34 3.85 - 5.15 M/uL HGB 11.5 (L) 12.0 - 15.3 g/dL HCT 36.5 36.0 - 45.2 % MCV 84.1 81.5 - 97.5 fL MCH 26.5 27.0 - 34.0 pg MCHC 31.5 32.0 - 36.0 g/dL RDW 15.0 11.5 - 15.5 % PLT 313 140 - 400 K/uL MPV 8.9 6.6 - 11.1 fL nRBCs 0 <=0 /100 WBCs BASIC METABOLIC PANEL Collection Time: 07/13/24 8:08 AM Result Value Ref Range BUN 24 (H) 6 - 20 mg/dL CREATININE 0.9 0.5 - 1.0 mg/dL EGFR 80 >=60 mL/min SODIUM 139 135 - 146 mmol/L POTASSIUM 4.9 3.5 - 5.1 mmol/L CHLORIDE 101 98 - 107 mmol/L CO2 26 22 - 32 mmol/L ANION GAP 12 7 - 15 mmol/L GLUCOSE 106 70 - 120 mg/dL CALCIUM 9.6 8.4 - 10.2 mg/dL DANGEROUSNESS TO SELF/OTHERS ASSESSMENT UPDATE: medication changes per Treatment Plan PATIENT REPORTED DEPRESSION SCREENING (PHQ9): PHQ9 Survey Results Last 24hours (since 07/13/2024) None DIAGNOSIS: Principal Problem: Bipolar disorder, current episode depressed, moderate (HCC) Active Problems: LYNSEY (generalized anxiety disorder) PTSD (post-traumatic stress disorder) Resolved Problems: * No resolved hospital problems. * ASSESSMENT: Brittney Jimenez is a 49 year old female with a past psychiatric history of bipolar disorder, PTSD, LYNSEY who was admitted to the Inpatient Psychiatric Unit at [facility] ([facility]) on 07/09/2024 on a 201 (voluntary) commitment for worsening depression and passive suicidal ideation. Her last inpatient admission was in 2018 to our unit for a similar presentation. On encounter, patient exhibiting clinical symptoms of depression as evidenced by depressed mood, feeling worthless, with lack of motivation and energy, hypersomnia, and diminished appetite. She does admit to prior diagnosis of bipolar disorder and mentions she has experienced mood swings, irritability, mood elevation and racing thoughts in the past. She does not exhibit these symptoms on admission. Patient attributes depression to her medical illness/wounds and chronic pain. She has been experiencing passive deathwishes but denies active suicidal intent or plan. Denies AVH/HI. BUTTON CUTTER medications restarted as she mentioned these have been helpful. Will work on tapering and discontinuing Wellbutrin while Duloxetine is continued and titrated to further aid with depressive symptomatology and chronic pain. PLAN: Reviewed with Dr. Archer and treatment team. Inpatient psychiatric care is necessary because of of suicidal potential . Plan of care includes: 1) 201 (voluntary) commitment 2) Safety Q15 minute checks 3) Supportive milieu and group therapy 4) Safe discharge planning Anticipated duration of admission: 5-7 days Current length of stay: 4 days Patient will need referrals to community services 5) Psychotropic Medications Continue BUTTON CUTTER Abilify 15 mg PO HS for mood regulation Continue BUTTON CUTTER Buspar 10 mg PO BID for LYNSEY Continue BUTTON CUTTER Lamictal 100 mg PO BID for mood regulation Cymbalta to 30 mg PO daily (last increased on 07/12) 6) Medical Medications Continue home medications as prescribed based on the medication reconciliation Zyrtec 10 mg PO daily Singulair 10 mg PO HS Prilosec 20 mg PO daily Lyrica 150 mg PO QID 7) Labs Medically cleared prior to psychiatric admission. Pertinent review of labs as indicated below: CBC: Hgb/HCT (10.8/35.6) Iron screen w/ TIBC: Iron (21), IBD (252), TSP (8) Ferrous sulfate 325 mg PO daily (at noon) CMP: Bun/Cr (35/0.9), AST/ALT (16/14), no electrolyte abnormalities as all WNL TSH: WNL (1.83) UDS: (+) Amphetamines--> most likely false positive reading from Wellbutrin Ethanol (-) Vitamin D: 20 ng/mL On antipsychotic therapy: HgbA1C: 4.8% Lipid panel: HDL mildly low (48), rest unremarkable 9) Wound consult for assessment of lower extremity wounds - as per recommendations: BLE wounds chronic lymphedema: -Unna boots to BL lower legs, change 3x/wk (-W- while in hospital to maintain dressing ingretity) -daily wound care w/ soap & water, Vaseline gauze and DD to wounds not covered w/ Unna boot. Intertriginous dermatitis BL folds: -cleanse daily w/ soap & water. Dry thoroughly. -may use either Miconazole powder BID and dry gauze or Interdry daily. Wound care will follow while in house. Treatment options and alternatives reviewed with patient and they agree with the above plan. Information about current medications was provided to the patient including reasons why medicationsare being used, risks, benefits, side effects and alternatives to treatment (including no treatment). I spent a total of 36 minutes coordinating, documenting, and providing care for this patient excluding time spent in the performance of separately billed services or time spent by another provider/QHP. Signature: Ayala Adrian PA-C 07/14/2024 3:15 PM Cosigned by Cem Archer MD at 07/14/2024 4:34 PM EST Associated attestation - Cem Archer MD - 07/14/2024 4:34 PM EST I have reviewed the advanced practitioner's documentation on the date of service referenced in note, and I agree with, and take responsibility for the plan of care. I spent a total of 15 minutes coordinating, documenting, and providing care for this patient excluding time spent in the performance of separately billed services or time spent by another provider/QHP. * Delores De Jesus MD - 07/13/2024 7:22 AM EST PHYSICIAN PROGRESS NOTE INPATIENT PSYCHIATRY [address] [address] Name: Brittney Jimenez Location: [facility] [id number] Date: 07/13/2024 Time: 7:22 AM Patient location: HOSPITAL. I was not in a hospital or clinic location. After connecting through televideo, patient was identified by name and date of and/or wristband checked. Patient (or authorized legal service representative) was then informed that this was a Telemedicine visit and was being conducted confidentially over secure lines. My office door was closed. No one else was in the room with me.. Patient acknowledged consent and understanding of privacy and security of the Telemedicine visit and gave permission to have a telemedicine presenter stay in the room in order to assist with the history and to conduct the exam as needed. I informed the patient that I have reviewed their record in [facility] and presented the opportunity for them to ask any questions regarding the visit today. The patient agreed to participate. Commitment Status: 201 Review: Case Reviewed in Treatment Team and Nursing Notes Past 24 Hours Reviewed SUBJECTIVE: Brittney Jimenez is seen for follow up today. Chart reviewed. No acute events through the night. Brittney reports feeling "good" today. Rates both her anxiety and depression as 3/10 (with 10 being the worst). She attributes this to being around other people. She denies passive wishes and further denies suicidal intent or plans. She mentions feeling anxious about going home and does not want to have any arguments with her roommate. Sleep has been adequate, although reports she slept 5-6 hrs last night as she had to use restroom, twice. Appetite continues to be wnl. She continues having knee pain but is not severe, she was educated to utilize prn Tylenol to help with this. She verbalized understanding. She has remained compliant with her medications. Reports she has felt dizzy this morning but has since then, subsided. Continue to monitor. Medication Compliance: compliant with all prescribed medicines PRN Medication Utilization: None psychiatric in nature Participating in Treatment: selective attendance Current Medication List: Current Facility-Administered Medications Medication Dose Route Frequency Provider DULoxetine (Cymbalta) cap 30 mg 30 mg Oral Daily(AM) Delores De Jesus MD Ferrous Sulfate (Feosol) tab 325 mg 325 mg Oral Daily Noon Delores De Jesus MD Acetaminophen (Tylenol) tab 325 mg 325 mg Oral Q4H PRN Delores De Jesus MD Or Acetaminophen (Tylenol) tab 650 mg 650 mg Oral Q6H PRN Delores De Jesus MD Or Acetaminophen (Tylenol) tab 975 mg 975 mg Oral Q6H PRN Delores De Jesus MD Haloperidol (Haldol) tab 5 mg 5 mg Oral Q6H PRN Delores De Jesus MD Or Haloperidol Lactate (Haldol) 5 MG/ML inj 5 mg 5 mg Intramuscular Q6H PRN Delores De Jesus MD home medication stored in pharmacy Does Not Apply Daily(AM) Delores De Jesus MD house antacid (Mi-Acid II) oral susp 15 mL 15 mL Oral Q4H PRN Delores De Jesus MD hydrOXYzine HCl tab 50 mg 50 mg Oral Q6H PRN Delores De Jesus MD LORazepam (Ativan) tab 1 mg 1 mg Oral Q6H PRN Delores De Jesus MD Or LORazepam (Ativan) inj 2 mg 2 mg Intramuscular Q6H PRN Delores De Jesus MD milk of magnesia (Mom) oral susp 30 mL 30 mL Oral Daily PRN Delores De Jesus MD ARIPiprazole (Abilify) tab 15 mg 15 mg Oral HS Avelina Wood PA-C busPIRone (Buspar) tab 10 mg 10 mg Oral BID(AM/PM) Avelina Wood PA-C Cetirizine (ZyrTEC) tab 10 mg 10 mg Oral Daily(AM) Avelina Wood PA-C lamoTRIgine (LaMICtal) tab 100 mg 100 mg Oral BID(AM/PM) Avelina Wood PA-C montelukast (Singulair) tab 10 mg 10 mg Oral HS Avelina Wood PA-C omeprazole (PriLOSEC) cap 20 mg 20 mg Oral Daily(AM) Avelina Wood PA-C potassium chloride ER tab 10 mEq 10 mEq Oral Daily(AM) Avelina Wood PA-C Pregabalin (Lyrica) cap 150 mg 150 mg Oral QID(AM/NOON/PM/HS) Avelina Wood PA-C traZODone (Desyrel) tab 50 mg 50 mg Oral QHS PRN MRx1 Avelina Wood PA-C MENTAL STATUS EVALUATION: Appearance: age-appropriate, casually dressed, and morbidly obese Gait and Station: uses walker for ambulation Personal Presentation: calm and cooperative Behavior: appropriate within the milieu Speech: normal rate, low volume, and normal rhythm Mood: "good" Affect: type - dysthymic; range - blunted; lability - no Thought Process: Structure: well organized, linear Associations: intact Thought Content: Hallucinations: denies Severity: N/A Delusions: denies Severity: N/A Other: none of concern Suicide Risk (-) Suicidal ideation, intent or plan Aggression Risk: patient denies thoughts/plans/or intent to harm or kill anyone else Orientation: alert and oriented to person, place, time and situation Recent and remote memory: intact Fund of knowledge: no significant deficits noted Attention span/concentration as evidenced by: ability to sustain attention to examiner - intact Insight: fair, acknowledges presence of mental illness and acknowledges the need for treatment Judgment: fair, willing to participate in treatment PHYSICAL/CONSULT/LAB FINDINGS: BP: 105 mmHg/69 mmHg (07/13/24 0600) Pulse: 100 (07/13/24 0600) Resp: 18 (07/13/24 06) Temp: 36.5 C (07/13/24 0600) Temp Summary: Temp Min: 36.3 C (97.3 F) Max: 36.5 C (97.7 F) SpO2: 99 % (07/09/24 1221) O2 flow rate: Supplemental O2 Delivery: Room Air, None (07/09/24 1221) Labs reviewed as indicated below: No results found for this or any previous visit (from the past 48 hours). DANGEROUSNESS TO SELF/OTHERS ASSESSMENT UPDATE: medication changes per Treatment Plan PATIENT REPORTED DEPRESSION SCREENING (PHQ9): PHQ9 Survey Results Last 24hours (since 07/12/2024) None DIAGNOSIS: Principal Problem: Bipolar disorder, current episode depressed, moderate (HCC) Active Problems: LYNSEY (generalized anxiety disorder) PTSD (post-traumatic stress disorder) Resolved Problems: * No resolved hospital problems. * ASSESSMENT: Brittney Jimenez is a 49 year old female with a past psychiatric history of bipolar disorder, PTSD, LYNSEY who was admitted to the Inpatient Psychiatric Unit at [facility] ([facility]) on 07/09/2024 on a 201 (voluntary) commitment for worsening depression and passive suicidal ideation. Her last inpatient admission was in 2018 to our unit for a similar presentation. On encounter, patient exhibiting clinical symptoms of depression as evidenced by depressed mood, feeling worthless, with lack of motivation and energy, hypersomnia, and diminished appetite. She does admit to prior diagnosis of bipolar disorder and mentions she has experienced mood swings, irritability, mood elevation and racing thoughts in the past. She does not exhibit these symptoms on admission. Patient attributes depression to her medical illness/wounds and chronic pain. She has been experiencing passive deathwishes but denies active suicidal intent or plan. Denies AVH/HI. BUTTON CUTTER medications restarted as she mentioned these have been helpful. Will work on tapering and discontinuing Wellbutrin while Duloxetine is continued and titrated to further aid with depressive symptomatology and chronic pain. PLAN: Inpatient psychiatric care is necessary because of of suicidal potential . Plan of care includes: 1) 201 (voluntary) commitment 2) Safety Q15 minute checks 3) Supportive milieu and group therapy 4) Safe discharge planning Anticipated duration of admission: 5-7 days Current length of stay: 3 days Patient will need referrals to community services 5) Psychotropic Medications Continue BUTTON CUTTER Abilify 15 mg PO HS for mood regulation Continue BUTTON CUTTER Buspar 10 mg PO BID for LYNSEY Continue BUTTON CUTTER Lamictal 100 mg PO BID for mood regulation Discontinued Wellbutrin 75 mg PO on 07/12 Cymbalta to 30 mg PO daily (last increased on 07/12) 6) Medical Medications Continue home medications as prescribed based on the medication reconciliation Zyrtec 10 mg PO daily Singulair 10 mg PO HS Prilosec 20 mg PO daily Lyrica 150 mg PO QID 7) Labs Medically cleared prior to psychiatric admission. Pertinent review of labs as indicated below: CBC: Hgb/HCT (10.8/35.6) Iron screen w/ TIBC: Iron (21), IBD (252), TSP (8) Ferrous sulfate 325 mg PO daily (at noon) CMP: Bun/Cr (35/0.9), AST/ALT (16/14), no electrolyte abnormalities as all WNL TSH: WNL (1.83) UDS: (+) Amphetamines--> most likely false positive reading from Wellbutrin Ethanol (-) Vitamin D: 20 ng/mL On antipsychotic therapy: HgbA1C: 4.8% Lipid panel: HDL mildly low (48), rest unremarkable 9) Wound consult for assessment of lower extremity wounds - as per recommendations: BLE wounds chronic lymphedema: -Unna boots to BL lower legs, change 3x/wk (-W- while in hospital to maintain dressing ingretity) -daily wound care w/ soap & water, Vaseline gauze and DD to wounds not covered w/ Unna boot. Intertriginous dermatitis BL folds: -cleanse daily w/ soap & water. Dry thoroughly. -may use either Miconazole powder BID and dry gauze or Interdry daily. Wound care will follow while in house. Treatment options and alternatives reviewed with patient and they agree with the above plan. Information about current medications was provided to the patient including reasons why medicationsare being used, risks, benefits, side effects and alternatives to treatment (including no treatment). I spent a total of 36 minutes coordinating, documenting, and providing care for this patient excluding time spent in the performance of separately billed services or time spent by another provider/QHP. Signature: Delores De Jesus MD 07/13/2024 4:24 PM * Delores De Jesus MD - 07/12/2024 7:50 AM EST PHYSICIAN PROGRESS NOTE INPATIENT PSYCHIATRY [facility] [address] Name: Brittney Jimenez Location: [facility] [id number] Date: 07/12/2024 Time: 1:54 PM Patient location: HOSPITAL. I was not in a hospital or clinic location. After connecting through [employer], patient was identified by name and date of and/or wristband checked. Patient (or authorized legal service representative) was then informed that this was a Telemedicine visit and was being conducted confidentially over secure lines. My office door was closed. No one else was in the room with me.. Patient acknowledged consent and understanding of privacy and security of the Telemedicine visit and gave permission to have a telemedicine presenter stay in the room in order to assist with the history and to conduct the exam as needed. I informed the patient that I have reviewed their record in [employer] and presented the opportunity for them to ask any questions regarding the visit today. The patient agreed to participate. Commitment Status: 201 Review: Case Reviewed in Treatment Team and Nursing Notes Past 24 Hours Reviewed SUBJECTIVE: Brittney Jimenez is seen for follow up today. Chart reviewed. No acute events through the night. She reports feeling "OK" today but mentions experiencing "a little anxiety but nothing I can't handle", rating this as 3/10. Reports improvement in depression, rating this as 3/10 (with 10 being the worst). She attributes this to being around other people and feeling supported by staff. She denies passive wishes and further denies suicidal intent or plans. Sleep has been "well" reporting sheonly woke up once yesterday to use restroom and was able to sleep afterwards throughout the night. Mentions she would received approximately 8-9 hrs of sleep. Appetite is reported as "great" and mentions it has improved as she was not eating much BUTTON CUTTER. She continues having knee pain and has been taking Tylenol prn which has been helpful. She has remained compliant with her medications without adverse side effects. Discussed iron screen panel and diminished levels of iron contributing to her blood work findings (decreased HgB/HCT) and she is amenable to start Ferrous sulfate. Will continue to monitor. Medication Compliance: compliant with all prescribed medicines PRN Medication Utilization: None psychiatric in nature Participating in Treatment: selective attendance Current Medication List: Current Facility-Administered Medications Medication Dose Route Frequency Provider [START ON 07/13/2024] DULoxetine (Cymbalta) DR cap 30 mg 30 mg Oral Daily(AM) Delores De Jesus MD Ferrous Sulfate (Feosol) tab 325 mg 325 mg Oral Daily Noon Delores De Jesus MD Acetaminophen (Tylenol) tab 325 mg 325 mg Oral Q4H PRN Delores De Jesus MD Or Acetaminophen (Tylenol) tab 650 mg 650 mg Oral Q6H PRN Delores De Jesus MD Or Acetaminophen (Tylenol) tab 975 mg 975 mg Oral Q6H PRN Delores De Jesus MD Haloperidol (Haldol) tab 5 mg 5 mg Oral Q6H PRN Delores De Jesus MD Or Haloperidol Lactate (Haldol) 5 MG/ML inj 5 mg 5 mg Intramuscular Q6H PRN Delores De Jesus MD home medication stored in pharmacy Does Not Apply Daily(AM) Delores De Jesus MD house antacid (Mi-Acid II) oral susp 15 mL 15 mL Oral Q4H PRN Delores De Jesus MD hydrOXYzine HCl tab 50 mg 50 mg Oral Q6H PRN Delores De Jesus MD LORazepam (Ativan) tab 1 mg 1 mg Oral Q6H PRN Delores De Jesus MD Or LORazepam (Ativan) inj 2 mg 2 mg Intramuscular Q6H PRN Delores De Jesus MD milk of magnesia (Mom) oral susp 30 mL 30 mL Oral Daily PRN Delores De Jesus MD ARIPiprazole (Abilify) tab 15 mg 15 mg Oral HS Avelina Wood PA-C busPIRone (Buspar) tab 10 mg 10 mg Oral BID(AM/PM) Avelina Wood PA-C Cetirizine (ZyrTEC) tab 10 mg 10 mg Oral Daily(AM) Avelina Wood PA-C lamoTRIgine (LaMICtal) tab 100 mg 100 mg Oral BID(AM/PM) Avelina Wodo PA-C montelukast (Singulair) tab 10 mg 10 mg Oral HS Avelina Wood PA-C omeprazole (PriLOSEC) cap 20 mg 20 mg Oral Daily(AM) Avelina Wood PA-C potassium chloride ER tab 10 mEq 10 mEq Oral Daily(AM) Avelina Wood PA-C Pregabalin (Lyrica) cap 150 mg 150 mg Oral QID(AM/NOON/PM/HS) Avelina Wood PA-C traZODone (Desyrel) tab 50 mg 50 mg Oral QHS PRN MRx1 Avelina Wood PA-C MENTAL STATUS EVALUATION: Appearance: age-appropriate, casually dressed, and morbidly obese Gait and Station: uses walker for ambulation Personal Presentation: calm and cooperative Behavior: appropriate within the milieu Speech: normal rate, low volume, and normal rhythm Mood: "OK" Affect: type - dysthymic; range - blunted; lability - no Thought Process: Structure: well organized Associations: intact Thought Content: Hallucinations: denies Severity: N/A Delusions: denies Severity: N/A Other: none of concern Suicide Risk (-) Suicidal ideation, intent or plan Aggression Risk: patient denies thoughts/plans/or intent to harm or kill anyone else Orientation: alert and oriented to person, place, time and situation Recent and remote memory: intact Fund of knowledge: no significant deficits noted Attention span/concentration as evidenced by: ability to sustain attention to examiner - intact Insight: fair, acknowledges presence of mental illness and acknowledges the need for treatment Judgment: fair, willing to participate in treatment PHYSICAL/CONSULT/LAB FINDINGS: BP: 118 mmHg/55 mmHg (07/12/24 0600) Pulse: 79 (07/12/24 06) Resp: 18 (07/12/24 06) Temp: 36.22 C (07/12/24599) Temp Summary: Temp Min: 36.2 C (97.2 F) Max: 36.4 C (97.5 F) SpO2: 99 % (07/09/24 1221) O2 flow rate: Supplemental O2 Delivery: Room Air, None (07/09/24 1221) Labs reviewed as indicated below: No results found for this or any previous visit (from the past 48 hours). DANGEROUSNESS TO SELF/OTHERS ASSESSMENT UPDATE: medication changes per Treatment Plan PATIENT REPORTED DEPRESSION SCREENING (PHQ9): PHQ9 Survey Results Last 24hours (since 07/11/2024) None DIAGNOSIS: Principal Problem: Bipolar disorder, current episode depressed, moderate (HCC) Active Problems: LYNSEY (generalized anxiety disorder) PTSD (post-traumatic stress disorder) Resolved Problems: * No resolved hospital problems. * ASSESSMENT: Brittney Jimenez is a 49 year old female with a past psychiatric history of bipolar disorder, PTSD, LYNSEY who was admitted to the Inpatient Psychiatric Unit at [facility] ([facility]) on 07/09/2024 on a 201 (voluntary) commitment for worsening depression and passive suicidal ideation. Her last inpatient admission was in 2018 to our unit for a similar presentation. On encounter, patient exhibiting clinical symptoms of depression as evidenced by depressed mood, feeling worthless, with lack of motivation and energy, hypersomnia, and diminished appetite. She does admit to prior diagnosis of bipolar disorder and mentions she has experienced mood swings, irritability, mood elevation and racing thoughts in the past. She does not exhibit these symptoms on admission. Patient attributes depression to her medical illness/wounds and chronic pain. She has been experiencing passive deathwishes but denies active suicidal intent or plan. Denies AVH/HI. BUTTON CUTTER medications restarted as she mentioned these have been helpful. Will work on tapering and discontinuing Wellbutrin while Duloxetine is continued and titrated to further aid with depressive symptomatology and chronic pain. PLAN: Inpatient psychiatric care is necessary because of of suicidal potential . Plan of care includes: 1) 201 (voluntary) commitment 2) Safety Q15 minute checks 3) Supportive milieu and group therapy 4) Safe discharge planning Anticipated duration of admission: 5-7 days Current length of stay: 2 days Patient will need referrals to community services 5) Psychotropic Medications Continue BUTTON CUTTER Abilify 15 mg PO HS for mood regulation Continue BUTTON CUTTER Buspar 10 mg PO BID for LYNSEY Continue BUTTON CUTTER Lamictal 100 mg PO BID for mood regulation Discontinued Wellbutrin 75 mg PO on 07/12 Increase Cymbalta to 30 mg PO daily (to start increased dose on 07/13) 6) Medical Medications Continue home medications as prescribed based on the medication reconciliation Zyrtec 10 mg PO daily Singulair 10 mg PO HS Prilosec 20 mg PO daily Lyrica 150 mg PO QID 7) Labs Medically cleared prior to psychiatric admission. Pertinent review of labs as indicated below: CBC: Hgb/HCT (10.8/35.6) Iron screen w/ TIBC: Iron (21), IBD (252), TSP (8) Ferrous sulfate 325 mg PO daily (at noon) CMP: Bun/Cr (35/0.9), AST/ALT (16/14), no electrolyte abnormalities as all WNL TSH: WNL (1.83) UDS: (+) Amphetamines--> most likely false positive reading from Wellbutrin Ethanol (-) Vitamin D: 20 ng/mL On antipsychotic therapy: HgbA1C: 4.8% Lipid panel: HDL mildly low (48), rest unremarkable 9) Wound consult for assessment of lower extremity wounds - as per recommendations: BLE wounds chronic lymphedema: -Unna boots to BL lower legs, change 3x/wk (M-W-F while in hospital to maintain dressing ingretity) -daily wound care w/ soap & water, Vaseline gauze and DD to wounds not covered w/ Unna boot. Intertriginous dermatitis BL folds: -cleanse daily w/ soap & water. Dry thoroughly. -may use either Miconazole powder BID and dry gauze or Interdry daily. Wound care will follow while in house. Treatment options and alternatives reviewed with patient and they agree with the above plan. Information about current medications was provided to the patient including reasons why medicationsare being used, risks, benefits, side effects and alternatives to treatment (including no treatment). I spent a total of 36 minutes coordinating, documenting, and providing care for this patient excluding time spent in the performance of separately billed services or time spent by another provider/QHP. Signature: Delores De Jesus MD 07/12/2024 1:56 PM * Jordan Cornejo RN - 07/09/2024 5:26 PM EST Bed search- [facility]- Fax- Denied d/t wounds [facility]- Fax - denied d/t wounds [facility]- Full [facility]- Fax [place]- Fax- Denied d/t wounds [facility]- Full [facility]- Full [place]- Fax- Denied d/t wounds [facility]- Fax [place]- Fax [place]- Fax- Denied d/t wounds [facility]- Fax- Denied d/t wounds [facility]- Full [place]- Fax- Denied d/t wounds [facility]- Fax - denied D/t wounds [facility]- Full [place]- Fax [place]- Fax [facility]- Fax- Denied d/t wounds documented in this encounter H&P Notes * Delores De Jesus MD - 07/11/2024 7:18 AM EST ATTENDING STAFF PHYSICIAN NOTE DIVISION OF PSYCHIATRY [facility] [address] Name: Brittney Jimenez Location: [facility] [id number] Date: 07/11/2024 Time: 7:18 AM Patient location: HOSPITAL. I was not in a hospital or clinic location. After connecting through televideo, patient was identified by name and date of and/or wristband checked. Patient (or authorized legal service representative) was then informed that this was a Telemedicine visit and was being conducted confidentially over secure lines. My office door was closed. No one else was in the room with me.. Patient acknowledged consent and understanding of privacy and security of the Telemedicine visit and gave permission to have a telemedicine presenter stay in the room in order to assist with the history and to conduct the exam as needed. I informed the patient that I have reviewed their record in [employer] and presented the opportunity for them to ask any questions regarding the visit today. The patient agreed to participate. COMMITMENT STATUS: 201 IDENTIFYING INFORMATION: Brittney Jimenez is a 49 year old white single female. The patient lives at [address] [place] [address] and home phone number is There is no home phone number on file. Brittney Jimenez was admitted from the Emergency Department HISTORY OF PRESENT ILLNESS: Brittney Jimenez is a 49 year old female with a past psychiatric history of bipolar disorder, PTSD, LYNSEY who was admitted to the Inpatient Psychiatric Unit at [facility] ([facility]) on 07/09/2024 on a 201 (voluntary) commitment for worsening depression and passive suicidal ideation. As per ED provider's documentation on 07/09 - copied below for ease of reference: Brittney Jimenez is a 49 year old female who presents to the ED for evaluation of Depression and Psychological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 medicationsare being used, risks, benefits, side effects and alternatives to treatment (including no treatment). I spent a total of 76 minutes coordinating, documenting, and providing care for this patient excluding time spent in the performance of separately billed services or time spent by another provider/QHP. Signature: Delores De Jesus MD 07/11/2024 3:58 PM documented in this encounter Consult Notes * Leydi Parker LPN - 07/11/2024 7:05 AM ESTAssociated Order(s): WOUND CONSULT IP Order Date:07/10/2024 Ordering User:DELORES DE JESUS [[id number]] Attending Provider:Cyrus Elizalde MD [[id number]] Authorizing Provider: Delores De Jesus MD [[id number]] Department:[address] [place] [address][[id number]] Order Specific Information Order: WOUND CONSULT IP [CUSTOM: [id number]] Order #: [id number]: [id number] Priority: Routine Class: Nursing Unit Reason for Consult: -> Assessment of chronic wounds to bilateral lower extremities Consulting Provider: -> John Provider Released on: 07/10/2024 5:03 PM Priority: Routine Class: Nursing Unit Reason for Consult: -> Assessment of chronic wounds to bilateral lower extremities Consulting Provider: -> John Provider Released on: 07/10/2024 5:03 PM Wound Care consult done for assessment of chronic wounds to BLE. HPI; Information obt from chart, and patient: Brittney Jimenez is a 49 yr old female. She came into ED after wound clinic appointment on 07/09/24.She awaiting IP psych admission for depression. Wound care was asked to see pt by Dr De Jesus for BLE chronic wounds. Pt was seen yesterday in ED for this reason. she is due to have Unna boots and dressings changed today. Pt was seen and examined at bedside. Introduces self and role as wound care nurse. BLE Unna boots & dressings removed. Mod amt sanguinous drainage from open ulcerations. All of these ulcerations are moist, pink, granular. Cleansed w/ soap & water. Dried. Applied vaseline gauze to open ulcers on BL proximal lower leg and covered w/ ABD. Secured in place w/ 6 inch dany wrap. Applied zinc Unna boots to BL lower legs from base of toes to just below knees. Placed Interdry between skin fold onRt leg. Pt tolerated well. No c/o pain. Recommendations: BLE wounds chronic lymphedema: -Unna boots to BL lower legs, change 3x/wk (M-W-F while in hospital to maintain dressing ingretity) -daily wound care w/ soap & water, Vaseline gauze and DD to wounds not covered w/ Unna boot. Secure in place w/ tape and 6 inch dany wrap. If dany wrap rolls down or is uncomfortable for pt, may remove these. Purpose of the dany wrap is to give light compression to reduce the swelling. This shouldbe done by nursing when wound care nurse is not available. Intertriginous dermatitis BL folds: -cleanse daily w/ soap & water. Dry thoroughly. -may use either Miconazole powder BID and dry gauze or Interdry daily. Wound care will follow while in house. Nursing to complete daily wound care when wound care nurse is not available. Thank you for consult. Coordinated care w/ nursing . Call or TT w/ any questions or concerns. Leydi Parker LPN,[facility] Licensed Practical Nurse, Wound Care Certified, Ostomy director of event management Wound Care Resource Nurse 07/11/24 11:55 AM * Leydi Parker LPN - 07/10/2024 2:05 PM ESTAssociated Order(s): WOUND CONSULT IP Images from the original note were not included. Order Date:07/10/2024 Ordering User:RA HARRIS [[id number]] Attending Provider:Cyrus Elizalde MD [[id number]] Authorizing Provider: Ra Harris DO [[id number]] Department:EMERGENCY MEDICINE [facility][[id number]] Order Specific Information Order: WOUND CONSULT IP [CUSTOM: [id number]] Order #: [id number] Priority: STAT Class: Nursing Unit Reason for Consult: -> Lower extremity wounds Consulting Provider: -> John Provider Released on: 07/10/2024 1:02 PM Priority: STAT Class: Nursing Unit Reason for Consult: -> Lower extremity wounds Consulting Provider: -> John Provider Released on: 07/10/2024 1:02 PM Wound Care consult done for BLE extremity wounds. HPI; Information obt from chart, and patient: Brittney Jimenez is a 49 yr old female. She came into ED after wound clinic appointment on 07/09/24.She awaiting IP psych admission for depression. Wound care was asked to see pt by ED staff for BLE wounds. Pt is seen in wound clinic by Podiatry for these wounds. She gets Unna boot to BLE [id number] and daily dressing changes to the wounds not covered by the Unna boots with Vaseline ointment and DD. Denied pain. Stated she's had wounds for over 1 yr. Reports they will seen to get better and then worse again. Pt does not follow a diet and she does not have lymphedema pumps. Past medical history: Past Medical History: Diagnosis Date Anemia Asthma, severity to be determined Depressive disorder, not elsewhere classified Diverticulosis of colon GERD (gastroesophageal reflux disease) History of chickenpox History of pneumonia History of strep sore throat INFORMATION 2012 Other-accidental fall, episode of syncope, hit head, concussion Kidney stone Morbid obesity, BMI not known (HCC) BMI >79 Past Surgical History: Procedure Laterality Date DENTAL SURGERY PROCEDURE NEC wisdom teeth extraction HYSTEROSCOPY W/FALLOPIAN IMPLANTS Bilateral 09/27/2015 HYSTEROSCOPY SURGICAL BILATERAL FALLOPIAN TUBE performed by Corey Robin Jr., MD at OR [facility] HYSTEROSCOPY;ENDOMETRIAL ABLAT N/A 09/27/2015 HYSTEROSCOPY ENDOMETRIAL ABLATION performed by Corey Robin Jr., MD at OR [facility] HYSTEROSCOPY;ENDOMETRIAL ABLAT N/A 06/11/2017 HYSTEROSCOPY ENDOMETRIAL ABLATION performed by Corey Robin Jr., MD at OR [facility] REMOVAL OF KIDNEY STONE, OVER 2CM 1996 REMOVE GALLBLADDER 1997 Family History Problem Relation Name Age of Onset Heart Disorder Mother CAD Lung Disorder Mother COPD - former smoker Cancer Mother cervical Lung Disorder Father Emphysema - age 65 - smoker Mental Disorder Brother depression Social History Socioeconomic History Marital status: Single Spouse name: Not on file Number of children: 0 Years of education: Not on file Highest education level: Not on file Occupational History Occupation: disabled Tobacco Use Smoking status: Former Current packs/day: 0.00 Average packs/day: 1 pack/day for 5.0 years (5.0 ttl pk-yrs) Types: Cigarettes Start date: 06/06/2007 Quit date: 06/06/2012 Years since quittin.1 Smokeless tobacco: Never Vaping Use Vaping status: Never Used Substance and Sexual Activity Alcohol use: Yes Comment: rare Drug use: No Sexual activity: Not Currently Partners: Male control/protection: Condom, Surgical Comment: Essure Other Topics Concern Service Not Asked Blood Transfusions Not Asked Caffeine Concern Not Asked Occupational Exposure Not Asked Hobby Hazards Not Asked Sleep Concern Not Asked Stress Concern Not Asked Weight Concern Yes Special Diet Not Asked Back Care Not Asked Exercise Not Asked Bike Helmet Not Asked Seat Belt Not Asked Self-Exams Not Asked Social History Narrative Disabled - chronic back problems, depression Social Needs Financial Resource Strain: Low Risk (03/10/2024) Financial Resource Strain Do you have any trouble paying for your medications, or do you think you might in the future? (Adult - for ages 18 years and over): No Does your family have trouble paying for medicine? (Household - for ages 0-17 years): Not on file Food Insecurity: No Food Insecurity (03/10/2024) Food Insecurity Do you need food for this week? (Adult - for ages 18 years and over): No Are you able to get enough food for your family? (Household - for ages 0-17 years): Not on file Does your family need food this week? (Household - for ages 0-17 years): Not on file Do you always have enough food for your family? (Household - for ages 0-17 years): Not on file Transportation Needs: Unmet Transportation Needs (03/10/2024) Transportation Needs Do you have trouble getting a ride to medical visits or work? (Adult - for ages 18 years and over):Not on file Does your family have a hard time getting a ride to doctors visits? (Household - for ages 0-17 years): Not on file Has lack of transportation kept you from medical appointments, meetings, work, or from getting things needed for daily living? Check all that apply. (Adult - for ages 18 years and over): Yes, it has kept me from non-medical meetings, appointments, work, or from getting things that I need Do you (or your family) have trouble finding or paying for a ride (transportation)? (Household - for ages 0-17 years): Not on file Social Connections: Socially Isolated (03/10/2024) Social Connections How often do you feel lonely or isolated from those around you? (Adult - for ages 18 years and over): Often Housing Stability: Low Risk (03/10/2024) Housing Stability Do you currently live in a detention or have no steady place to sleep at night? (Adult - for ages 18 years and over): No Do you think you are at risk of becoming homeless? (Adult - for ages 18 years and over): Not on file Does your family worry about paying for your home or becoming homeless? (Household - for ages 0-17 years): Not on file Are you homeless or worried that you might be in the future? (Adult - for ages 18 years and over): No Are you (or your family) homeless or worried that you might be in the future? (Household - for ages0-17 years): Not on file Allergies: Review of patient's allergies indicates: Allergen Reactions Aspirin Increased bleeding Code status: Code Status: Prior Focused Wound Assessment: VS: BP 132/77 | Pulse 87 | Temp 36.9 C (98.4 F) (Temporal Artery) | Resp 19 | Ht 1.499 m (4' 11") | Wt (!) 163.3 kg (360 lb) | LMP 06/15/2024 (Exact Date) Comment: S/P Ablation | SpO2 99% | BMI 72.71 kg/m | BSA 2.61 m General: NAD. Siting up in stretcher. Pleasant & cooperative. Morbidly obese. Neuro: AA&O MS: AROM, + sensation Vascular: BLE chronic lymphedema. Cobble stoning appearance of skin in lower legs. Hair growth noted. 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 + DP & PT pulses 3/4 Integumentary: multi BLE wounds, chronic with moist pink wound beds. Intertrigo noted in skin foldsbehind & medial BL kness. Alteration in Skin Integrity Right;Lateral;Proximal Thigh Properties Skin integrity Initial Assessment Date: 05/01/24 -LS Initial Assessment Time: 1421 -LS Location Orientation: Right;Lateral;Proximal -LS Region Location: Thigh -LS 36.5 cm -LS Wound Width (cm) -- -- 15.2 cm -LS Wound Depth (cm) -- -- 0.2 cm Noted deepest of blocked site -LS Undermining (cm) -- -- -- Sinus Tract (cm) -- -- -- Tunneling (cm) -- -- -- Ulcer Thickness -- -- Full -LS Yellow Fibrinous Slough (%) -- -- 1-25% -LS Granulation Tissue (%) -- -- 51-75% -LS Granulation Tissue Color -- -- pale/pink -LS Necrotic Tissue (%) -- -- none -LS Necrotic Tissue Color -- -- -- Deep Supporting Structure Exposed -- -- -- Drainage -- -- serosanguinous, mild -LS Odor (after cleansing wound) -- -- No -LS Jaye-Wound (Surrounding Skin) -- -- Intact -LS Alteration in Skin Integrity Anterior;Proximal;Right Leg Properties Skin integrity Initial Assessment Date: 02/05/24 -EM Initial Assessment Time: 1018 -EM Location Orientation: Anterior;Proximal;Right -LS Region Location: Leg -EM 8 cm -LS -- Wound Width (cm) -- 7 cm -LS -- Wound Depth (cm) -- 0.4 cm -LS -- Undermining (cm) -- -- -- Sinus Tract (cm) -- -- -- Tunneling (cm) -- -- -- Ulcer Thickness -- Full -LS -- Yellow Fibrinous Slough (%) -- 51-75% -LS -- Granulation Tissue (%) -- 1-25% -LS -- Granulation Tissue Color -- pale/pink -LS -- Necrotic Tissue (%) -- -- -- Necrotic Tissue Color -- -- -- Deep Supporting Structure Exposed -- -- -- Drainage -- serosanguinous, moderate -LS -- Odor (after cleansing wound) -- No -LS -- Jaye-Wound (Surrounding Skin) -- Edema;Erythematous -LS -- Alteration in Skin Integrity Proximal;Right;Medial Leg Properties Skin integrity Initial Assessment Date: 03/19/23 -SHALA Initial Assessment Time: 1543 -SHALA Location Orientation: Proximal;Right;Medial -LS Region Location: Leg -SHALA ) 7.4 cm -LS -- -- Wound Width (cm) 7.1 cm -LS -- -- Wound Depth (cm) 0.2 cm -LS -- -- Undermining (cm) -- -- -- Sinus Tract (cm) -- -- -- Tunneling (cm) 0.4 -LS -- -- Ulcer Thickness Full -LS -- -- Yellow Fibrinous Slough (%) 26-50% -LS -- -- Granulation Tissue (%) 26-50% -LS -- -- Granulation Tissue Color red -LS -- -- Necrotic Tissue (%) none -LS -- -- Necrotic Tissue Color -- -- -- Deep Supporting Structure Exposed -- -- -- Drainage serosanguinous, heavy -LS -- -- Odor (after cleansing wound) No -LS -- -- Jaye-Wound (Surrounding Skin) Edema;Erythematous -LS -- Alteration in Skin Integrity Lower;Right;Medial Leg Properties Skin integrity Initial Assessment Date: 02/05/24 -EM Initial Assessment Time: 1016 -EM Location Orientation: Lower;Right;Medial -EM Region Location: Leg -EM Alteration in Skin Integrity Right;Posterior Popliteal Properties Skin integrity Initial Assessment Date: 05/06/24 -LS Initial Assessment Time: 1124 -LS Location Orientation: Right;Posterior -LS Specific Location: Popliteal -LS Alteration in Skin Integrity Proximal;Left;Medial Leg Properties Skin integrity Initial Assessment Date: 03/19/23 -SHALA Initial Assessment Time: 1549 -SHALA Location Orientation: Proximal;Left;Medial -LS Region Location: Leg -SHALA Alteration in Skin Integrity Left;Medial Knee Properties Skin integrity Initial Assessment Date: 02/05/24 -EM Initial Assessment Time: 1010 -EM Location Orientation: Left;Medial -EM Region Location: Knee -EM Alteration in Skin Integrity Left Knee Properties Skin integrity Initial Assessment Date: 05/19/24 -SF Initial Assessment Time: 1132 -SF Location Orientation: Left -SF Region Location: Knee -SF Alteration in Skin Integrity Left Knee Properties Skin integrity Initial Assessment Date: 05/19/24 -SF Initial Assessment Time: 1132 -SF Location Orientation: Left -SF Region Location: Knee -SF nd Length (cm) 2.5 cm -LS -- -- -- -- Wound Width (cm) 1.9 cm -LS -- -- -- -- Wound Depth (cm) 0.2 cm -LS -- -- -- -- Undermining (cm) -- -- -- -- -- Sinus Tract (cm) -- -- -- -- -- Tunneling (cm) -- -- -- -- -- Ulcer Thickness Full -LS -- -- -- -- Yellow Fibrinous Slough (%) 1-25% -LS -- -- -- -- Granulation Tissue (%) 51-75% -LS -- -- -- -- Granulation Tissue Color pale/pink -LS -- -- -- -- Necrotic Tissue (%) none -LS -- -- -- -- Necrotic Tissue Color -- -- -- -- -- Deep Supporting Structure Exposed -- -- -- -- -- Drainage serosanguinous, mild -LS -- -- -- -- Odor (after cleansing wound) No -LS -- -- -- -- Jaye-Wound (Surrounding Skin) Edema;Erythematous -LS -- -- -- -- Wound Care Done By -- -- -- -- -- Evidence of Infection -- -- -- -- -- Post-Procedure Length (cm) -- -- -- -- -- Post-Procedure Width (cm) -- -- -- -- -- Post-Procedure Depth (cm) -- -- -- -- -- Wound Surface Area (cm^2) 4.75 cm^2 -LS -- -- -- -- Wound Volume (cm^3) 0.95 cm^3 -LS Alteration in Skin Integrity Left;Medial Knee Properties Skin integrity Initial Assessment Date: 02/05/24 -EM Initial Assessment Time: 1010 -EM Location Orientation: Left;Medial -EM Region Location: Knee -EM (cm) -- 5.7 cm -LS -- -- -- Wound Width (cm) -- 4 cm -LS -- -- -- Wound Depth (cm) -- 0.2 cm -LS -- -- -- Undermining (cm) -- -- -- -- -- Sinus Tract (cm) -- -- -- -- -- Tunneling (cm) -- -- -- -- -- Ulcer Thickness -- Full -LS -- -- -- Yellow Fibrinous Slough (%) -- 1-25% -LS -- -- -- Granulation Tissue (%) -- 51-75% -LS -- -- -- Granulation Tissue Color -- red -LS -- -- -- Necrotic Tissue (%) -- none -LS -- -- -- Necrotic Tissue Color -- -- -- -- -- Deep Supporting Structure Exposed -- None -LS -- -- -- Drainage -- serosanguinous, heavy -LS -- -- -- Odor (after cleansing wound) -- No -LS -- -- -- Jaye-Wound (Surrounding Skin) -- Edema;Erythematous -LS -- -- -- Wound Care Done By -- -- -- -- -- Evidence of Infection -- -- -- -- -- Post-Procedure Length (cm) -- -- -- -- -- Post-Procedure Width (cm) -- -- -- -- -- Post-Procedure Depth (cm) -- -- -- -- -- Wound Surface Area (cm^2) -- 22.8 cm^2 -LS -- -- -- Wound Volume (cm^3) -- 4.56 cm^3 -LS Alteration in Skin Integrity Proximal;Left;Medial Leg Properties Skin integrity Initial Assessment Date: 03/19/23 -SHALA Initial Assessment Time: 1549 -SHALA Location Orientation: Proximal;Left;Medial -LS Region Location: Leg -SHALA 1.9 cm -LS -- -- Wound Width (cm) -- -- 1.7 cm -LS -- -- Wound Depth (cm) -- -- 0.1 cm -LS -- -- Undermining (cm) -- -- -- -- -- Sinus Tract (cm) -- -- -- -- -- Tunneling (cm) -- -- -- -- -- Ulcer Thickness -- -- Full -LS -- -- Yellow Fibrinous Slough (%) -- -- none -LS -- -- Granulation Tissue (%) -- -- 100% -LS -- -- Granulation Tissue Color -- -- red -LS -- -- Necrotic Tissue (%) -- -- -- -- -- Necrotic Tissue Color -- -- -- -- -- Deep Supporting Structure Exposed -- -- -- -- -- Drainage -- -- serosanguinous, moderate -LS -- -- Odor (after cleansing wound) -- -- No -LS -- -- Jaye-Wound (Surrounding Skin) -- -- Edema;Erythematous -LS -- -- Wound Care Done By -- -- -- -- -- Evidence of Infection -- -- -- -- -- Post-Procedure Length (cm) -- -- -- -- -- Post-Procedure Width (cm) -- -- -- -- -- Post-Procedure Depth (cm) -- -- -- -- -- Wound Surface Area (cm^2) -- -- 3.23 cm^2 -LS -- -- Wound Volume (cm^3) -- -- 0.323 cm^3 -LS Alteration in Skin Integrity Right;Posterior Popliteal Properties Skin integrity Initial Assessment Date: 05/06/24 -LS Initial Assessment Time: 1124 -LS Location Orientation: Right;Posterior -LS Specific Location: Popliteal -LS -- 4.5 cm -LS -- Wound Width (cm) -- -- -- 2.2 cm -LS -- Wound Depth (cm) -- -- -- 0.1 cm -LS -- Undermining (cm) -- -- -- -- -- Sinus Tract (cm) -- -- -- -- -- Tunneling (cm) -- -- -- -- -- Ulcer Thickness -- -- -- Full -LS -- Yellow Fibrinous Slough (%) -- -- -- none -LS -- Granulation Tissue (%) -- -- -- 100% -LS -- Granulation Tissue Color -- -- -- red -LS -- Necrotic Tissue (%) -- -- -- -- -- Necrotic Tissue Color -- -- -- -- -- Deep Supporting Structure Exposed -- -- -- None -LS -- Drainage -- -- -- serosanguinous, moderate -LS -- Odor (after cleansing wound) -- -- -- No -LS -- Jaye-Wound (Surrounding Skin) -- -- -- Edema;Erythematous -LS -- Alteration in Skin Integrity Lower;Right;Medial Leg Properties Skin integrity Initial Assessment Date: 02/05/24 -EM Initial Assessment Time: 1015EM Location Orientation: Lower;Right;Medial -EM Region Location: Leg -EM 17.2 cm -LS Wound Width (cm) -- -- -- -- 6.3 cm -LS Wound Depth (cm) -- -- -- -- 0.3 cm -LS Undermining (cm) -- -- -- -- -- Sinus Tract (cm) -- -- -- -- -- Tunneling (cm) -- -- -- -- -- Ulcer Thickness -- -- -- -- Full -LS Yellow Fibrinous Slough (%) -- -- -- -- 1-25% -LS Granulation Tissue (%) -- -- -- -- 51-75% -LS Granulation Tissue Color -- -- -- -- red -LS Necrotic Tissue (%) -- -- -- -- none -LS Necrotic Tissue Color -- -- -- -- -- Deep Supporting Structure Exposed -- -- -- -- None -LS Drainage -- -- -- -- serosanguinous, heavy -LS Odor (after cleansing wound) -- -- -- -- No -LS Jaye-Wound (Surrounding Skin) -- -- -- -- Edema;Erythematous -LS PULSE SCALE: 4=Aneurysmal; 3=Normal; 2=Diminished; 1=Barely Palpable; 0=Absent Review of Labs/Tests: None to include for wound care at this time. Interventions/treatments: Pt was seen and examined at bedside. Introduces self and role as wound care nurse. BLE unna boots in place for knees to base of toes. Gauze dressings in place to wound not covered by Unna boots. Removed those today and cleansed wounds w/ soap & water. Apply Vaseline gauze and ABD. Secured in place w/ tape. Discussed w/ nursing staff and pt that the Unna boots are DTC tomorrow. Will see Pt tomorrow for those dressing changes. Discussed with pt she may benefit from the use of Interdry betweenher folds d/t the intertriginous rash, odor and friction from the skin rubbing together. Will also provide that to pt tomorrow. Pt tolerated well. Denied pain. Recommendations: BLE wounds chronic lymphedema: -Unna boots to BL lower legs, change 3x/wk (M-W-F while in hospital to maintain dressing ingretity) -daily wound care w/ soap & water, Vaseline gauze and DD to wounds not covered w/ Unna boot. Intertriginous dermatitis BL folds: -cleanse daily w/ soap & water. Dry thoroughly. -may use either Miconazole powder BID and dry gauze or Interdry daily. Wound care will follow while in house. Thank you for consult. Coordinated care w/ nursing staff. Call or TT w/ any questions or concerns. Leydi Parker LPN,[facility] Licensed Practical Nurse, Wound Care Certified, Ostomy director of event management Wound Care Resource Nurse 07/10/24 [id number] * Griffin Fuchs MD - 07/09/2024 4:21 PM EST INITIAL PSYCHIATRY CONSULT NOTE Patient location: ED. I was not in a hospital or clinic location. After connecting through televideo, patient was identified by name and date of and/or wristband checked. Patient (or authorizedlegal service representative) was then informed that this was a Telemedicine visit and being conducted confidentially over secure lines. My office door was closed. No one else was in the room with me. Patient acknowledged consent and understanding of privacy and security of the Telemedicine visit, and gavepermission to have a telemedicine presenter stay in the room in order to assist with the history and to conduct the exam as needed. I informed the patient that I have reviewed their record in [facility] and presented the opportunity for them to ask any questions regarding the visit today. The patient agreed to participate. I communicated with the patient for 35 minutes via televideo. Date of Consult: 07/09/2024 Subjective HISTORY OF PRESENT ILLNESS (HPI): Psych consult requested for evaluation of 49-year-old female because of worsening depression and passive suicidal thoughts. History of PTSD, bipolar disorder and anxiety. During evaluation patient is alert oriented calm cooperative. Reports worsening depression for the past 6 weeks, reports stressors are related to poor self- image, low self-worth, feeling isolated from family, finances, chronic pain. Endorses decreased motivation, energy level, not refreshing sleep although she is sleeping a lot, and passive suicidal thoughts, states she does not care of somethinghappens to her. Reports she does not like going outside anymore because she believes people are staring at her because of her weight, is very self-conscious worsening her anxiety. Currently denies symptoms suggestive of arianna, denies perceptual disturbances no delusion elicited. Denies substance use including alcohol and cannabis. UDS positive for amphetamine-most likely false positive from Wellbutrin use. Patient reports she sees a psychiatrist and currently on Wellbutrin XL 300 mg p.o. daily, Lamictal 100 mg p.o. twice daily Abilify 15 mg p.o. daily, was decreased from 20 mg 2 weeks ago, started BuSpar 10 mg p.o. twice daily 2 weeks ago. Also takes trazodone 50 mg p.o. nightly as needed for insomnia and Klonopin 0.5 mg p.o. twice daily as needed for anxiety. Reports she has been on Lamictal and Abilify for years. PSYCHIATRIC REVIEW OF SYSTEMS: Depression: -depressed (sad) mood , -decreased interests or pleasurein activities, -changes in sleep patterns: sleeping a lot, -fatigue or loss of energy most days, and -thoughts of and/or suicide, Anxiety/OCD/PTSD: uncontrollable worry, restlessness, edgyness,easily fatigued, and muscle tension, Arianna: none, Psychosis: none, Suicide: Passive SI, and Homicide: Denies HI/Plan/Intent PAST PSYCHIATRIC HISTORY Psychotropic medications, including See HPI History of inpatient psychiatric admissions: x 2 Medication compliance: yes History of SI attempts: denies History of trauma, abuse, exploitation or trafficking: none I have reviewed the patient's allergies, past history, and medications. MENTAL STATUS EXAM (MSE) Appearance: within normal limits Attitude: cooperative Eye Contact: good Behavior: appropriate Impulse Control: fair Speech: normal rate and normal volume Mood: depressed Affect: restricted Thought Process: within normal limits Thought Content:normal Suicidality and Homicidality: Ideation without Plan Insight: fair Judgment: impaired Memory: fair Attention/Concentration: fair Orientation: alert and oriented to person, place, time and situation Language: clear, coherent, and fluent Fund of Knowledge: fair Objective PHYSICAL EXAM & ADDITIONAL FINDINGS Please see most recent physical exam by attending physician. Reviewed ED vital signs and pertinent labs, imaging and other studies through Results Review Pain Screening: Is patient experiencing any pain? No Recommendations for management: None Nutritional Screening: No concerns RISK ASSESSMENT- Risk assessment is a dynamic process; it is possible that this patient's condition, and risk level,may change. This should be re-evaluated and managed over time as appropriate. Please call or re-consult us if additional assistance is needed in terms of risk assessment and management. If your team decides to discharge this patient, please advise the patient how to best access emergency psychiatric services, or to call 911, if their condition worsens or they feel unsafe in any way. Based on my current evaluation and risk assessment, patient is determined to be at: High Risk of harm to self or others Risk Factors: history of depression, social and family isolation, anxiety, physical illness/chronicpain, and hopelessness Protective Factors: access to appropriate services GENERAL FORMULATION- Based on my current evaluation and assessment of the patient, Brittney Jimenez is a 49 year old years old who presents with complaints of Worsening depression, passive suicidal thoughts in the context of stressors including poor self image, low self-worth, feeling isolated from family, finances, chronic pain, believes current medications are not helpful. The patient's presentation and diagnosisis consistent with Bipolar disorder current episode depressed severe without psychotic features. Assessment & Plan DIAGNOSES: Primary Psychiatric Diagnoses: Bipolar disorder current episode depressed severe without psychotic features PLAN/RECOMMENDATIONS/INTERVENTIONS: Inpatient psych admission is recommended: suicide precautions including 1:1 order and 201 signed byPatient Medication recommendations: Deferred to inpatient psych Non-Medication recommendations: Supportive care I reviewed and updated the [place] Suicide Screen and Suicide Safety Plan as clinically indicated Follow-Up Telepsychiatry C/L services: Will sign off for now. Please re-consult our service as necessary. Total time spent in encounter: 40 minutes total, including record review, clinical interview, behavior observations, discussion of impressions and recommendations, consultation/communication with relevant parties, and clinical documentation Impressions and recommendations were shared with the appropriate persons, including the patient to the extent that the patient is able to consent to treatment as well as understand and participate intreatment decision-making. Consultation recommendations were discussed with requesting physician/service. Thank you for involving us in the care of this patient. Please contact us with questions/concerns. Griffin Fuchs MD documented in this encounter Nursing Notes * Robi Weldon RN - 07/21/2024 3:17 PM EST PSYCHIATRY NURSING DISCHARGE SUMMARY [address] [address] Patient Name: Brittney Jimenez Discharge Date: 07/21/2024 Discharge Time: 1425 NURSING DISCHARGE SUMMARY: Pt received discharge instructions medication education and all last doses were reviewed with her. Pts future appointments were addressed with her. Pt stated at discharge she has no plan to harm self or others. Advance Directives: Does patient want to complete a mental health advance directive?: No, patient declined (07/10/24 3932) Does the patient want to complete a Health Care Advance Directive?: No, patient declined (07/10/24 1711) Patient was provided copy of the Advance Directive Booklet: Yes Patient was provided copy of the [facility] Advance Directive Booklet: Yes PATIENT DISCHARGE SUMMARY: Accompanied by: staff Mode Of Transportation: Wheelchair Valuables Returned: Yes Belongings Returned: Yes Home Medications Returned: Yes Is patient being discharged to an acute facility/unit? No * Leydi Parker LPN - 07/21/2024 3:09 PM EST Pt was seen today for dressing changes to BLE. Zinc Unna boots changed to BLE. Dressing changed w/ Vaseline gauze and ABD to upper leg wounds. Secured in place w/ 6 inch dany wraps. No change in woundappearances. Moist pink granular w/ mild fibrin. Heavy amt serous drainage. For intertrigo in foldsof legs, cleansed w/ soap & water. Dried. Applied interdry. Odor is still detected from this area. Pt is to continue daily dressing changes to ulcerations and f/u in wound clinic for unna boots 3x/wks. Wound clinic is to call with appointment tomorrow. Call or TT w/ any questions or concerns. Leydi Parker LPN,[facility] Licensed Practical Nurse, Wound Care Certified, Ostomy director of event management Wound Care Resource Nurse 07/21/24 3:17 PM * Lissa Culver RN - 07/21/2024 2:25 PM EST Facesheet, H&P, discharge instructions, and discharge summary faxed to [facility] on07/22/24 at 0141. * Robi Weldon RN - 07/21/2024 11:48 AM EST PHQ9 Survey Results Last 24hours (since 07/20/2024) Little interest or pleasure in doing things Not at all Feeling down, depressed or hopeless Not at all Trouble falling or staying asleep, or sleeping too much More than half the days Feeling tired or having little energy More than half the days Poor appetite or overeating Not at all Feeling bad about yourself - or that you are a failure, or have let yourself or your family down Not at all Trouble concentrating on things, such as reading the newspaper or watching television Several days Moving or speaking so slowly that other people could have noticed. Or the opposite - being so fidgety or restless that you have been moving around a lot more than usual Not at all Thoughts that you would be better off , or of hurting yourself Not at all PHQ Adult Total Score 5 * Rip Anuglo RN - 07/21/2024 10:28 AM EST PSYCHIATRY PATIENT DAILY SELF REPORT [address] [address] Name: Brittney Jimenez Location: [facility] [id number] Date: 07/21/2024 Time: 10:28 AM The patient reports the following: How are you sleeping? fair # of Hours: How is your appetite? good On a scale from 0-10, rank your feelings of depression: 3 (0 being no depression and 10 being extremely depressed) On a scale from 0-10, rank your feelings of anxiety: 8 (0 being no anxiety and 10 being extremely anxious) On a scale from 0-10, rank your physical pain: 9 (0 being no pain and 10 being extreme pain) On a scale from 0-10, how are you managing your symptoms: 9 (0 being not managed at all and 10 being managed well) Are you having thoughts of hurting yourself or others? If yes, please be specific. no Are you experiencing hallucinations? If yes, please be specific. no Are you taking your medications as prescribed? Identify a situation you handled well within the last 24 hours: Identify a situation you had a problem handling within the last 24 hours: Identify a short term goal to work on today that will help you meet your treatment plan goals: * Trinity Reyes NA/UDC - 07/21/2024 8:43 AM EST Patient self-reported data from community meeting: Feeling: Rates mood as: Daily goal: How others can help me: Late coming to breakfast * Madeline Monaco RN - 07/20/2024 8:53 PM EST Patient self-reported data from wrap-up meeting: Feeling word: nervous Rates mood as: 8 Did you meet your daily goal? yes Positive thought: keep on swimming Adverse medication reaction: no * Madeline Monaco RN - 07/20/2024 7:50 PM EST The patient will be discharged on one (Abilfiy) antipsychotics. * Fern Beasley RN - 07/20/2024 3:29 PM EST PSYCHIATRY GROUP THERAPY NOTE INPATIENT PSYCHIATRY [facility] [address] Name: Brittney Jimenez Location: [facility] [id number] Date: 07/20/2024 Time: 3:29 PM Group Start Time: 1330 Group End Time: 1415 THERAPEUTIC GROUP ACTIVITIES ATTENDED: Music/Recreational Therapy: Active, Interactions: Appropriate, Behaviors: Able to focus 45 minutes * Fern Beasley RN - 07/20/2024 12:19 PM EST Open areas to bilateral legs cleaned. Covered with Vaseline gauze and ABD and secured with tape. * Fern Beasley RN - 07/20/2024 11:49 AM EST PSYCHIATRY GROUP THERAPY NOTE INPATIENT PSYCHIATRY [facility] [address] Name: Brittney Jimenez Location: [facility] [id number] Date: 07/20/2024 Time: 11:49 AM Group Start Time: 1030 Group End Time: 1115 THERAPEUTIC GROUP ACTIVITIES ATTENDED: Music/Recreational Therapy: Active, Interactions: Appropriate, Behaviors: Able to focus 45 minutes * La Nena Schulz RN - 07/20/2024 8:02 AM EST Pt did not complete daily self report. * La Nena Schulz RN - 07/20/2024 8:02 AM EST Pt did not attend community meeting. * Mike Mondragon RN - 07/19/2024 8:56 PM EST Patient self-reported data from wrap-up meeting: Feeling word: tired Rates mood as: 9 Did you meet your daily goal? yes Positive thought: Just keep going Adverse medication reaction: no * Fern Beasley RN - 07/19/2024 3:02 PM EST Open ulcerations cleansed, covered with oil emulsions and DSD. Secured with gauze. * Fern Beasley RN - 07/19/2024 2:11 PM EST PSYCHIATRY GROUP THERAPY NOTE INPATIENT PSYCHIATRY [address] [address] Name: Brittney Jimenez Location: [address] Date: 07/19/2024 Time: 2:11 PM Group Start Time: 1330 Group End Time: 1400 THERAPEUTIC GROUP ACTIVITIES ATTENDED: Music/Recreational Therapy: Active, Interactions: Appropriate, Behaviors: Able to focus 30 minutes * Fern Beasley RN - 07/19/2024 11:58 AM EST PSYCHIATRY GROUP THERAPY NOTE INPATIENT PSYCHIATRY [address] [address] Name: Brittney Jimenez Location: [address] Date: 07/19/2024 Time: 11:59 AM Brittney declined to attend 1030 group. * Fern Beasley RN - 07/19/2024 9:12 AM EST PSYCHIATRY PATIENT DAILY SELF REPORT [address] [address] Name: Brittney Jimenez Location: [address] Date: 07/19/2024 Time: 9:12 AM The patient reports the following: How are you sleeping? fair # of Hours: 5 How is your appetite? good On a scale from 0-10, rank your feelings of depression: 2 (0 being no depression and 10 being extremely depressed) On a scale from 0-10, rank your feelings of anxiety: 4 (0 being no anxiety and 10 being extremely anxious) On a scale from 0-10, rank your physical pain: 8 (0 being no pain and 10 being extreme pain) On a scale from 0-10, how are you managing your symptoms: 8 (0 being not managed at all and 10 being managed well) Are you having thoughts of hurting yourself or others? If yes, please be specific. no Are you experiencing hallucinations? If yes, please be specific. no Are you taking your medications as prescribed? yes Identify a situation you handled well within the last 24 hours: no answer Identify a situation you had a problem handling within the last 24 hours: no answer Identify a short term goal to work on today that will help you meet your treatment plan goals: no answer * Esther Membreno NA - 07/19/2024 8:51 AM EST Patient self-reported data from community meeting: Feeling: Awake Rates mood as: 9 Daily goal: To finish my schedule that Deonna gave me. How others can help me: To remind me to complete work from [employer]. * Madeline Monaco RN - 07/18/2024 9:12 PM EST Patient self-reported data from wrap-up meeting: Feeling word: optimisitic Rates mood as: 8 Did you meet your daily goal? Yes and no Positive thought: to have a good day Adverse medication reaction: no * Leydi Parker LPN - 07/18/2024 3:34 PM EST Pt was seen today for BLE dressing change. Floor staff removed dressings for pt to shower. No change in appearance of wounds. Covered open ulcerations w/ oil emulsion and DSD. Secured in place w/ roll gauze. BLE unna boots applied. Call or TT w/ any questions or concerns. Leydi Parker LPN,[facility] Licensed Practical Nurse, Wound Care Certified, Ostomy director of event management Wound Care Resource Nurse 07/18/24 3:41 PM * Esther Membreno NA - 07/18/2024 9:37 AM EST Patient self-reported data from community meeting: Feeling: Tired Rates mood as: 7 Daily goal: To get my schedule figured out when I get home. How others can help me: By being there for me. * Chris Graham RN - 07/18/2024 9:20 AM EST PSYCHIATRY PATIENT DAILY SELF REPORT [address] [address] Name: Brittney Jimenez Location: [facility] [id number] Date: 07/18/2024 Time: 9:20 AM The patient reports the following: How are you sleeping? fair # of Hours: N/A How is your appetite? good On a scale from 0-10, rank your feelings of depression: 5 (0 being no depression and 10 being extremely depressed) On a scale from 0-10, rank your feelings of anxiety: 7 (0 being no anxiety and 10 being extremely anxious) On a scale from 0-10, rank your physical pain: 8 (0 being no pain and 10 being extreme pain) On a scale from 0-10, how are you managing your symptoms: 8 (0 being not managed at all and 10 being managed well) Are you having thoughts of hurting yourself or others? If yes, please be specific. no Are you experiencing hallucinations? If yes, please be specific. no Are you taking your medications as prescribed? no (Lasix) Identify a situation you handled well within the last 24 hours: N/A Identify a situation you had a problem handling within the last 24 hours: N/A Identify a short term goal to work on today that will help you meet your treatment plan goals: to get my schedule finished for Lucius * Keli Deal RN - 07/17/2024 9:09 PM EST Patient self-reported data from wrap-up meeting: Feeling word: Peaceful Rates mood as: 9 Did you meet your daily goal? Yes Positive thought: Keep on swimming Adverse medication reaction: No * Chris Graham RN - 07/17/2024 1:38 PM EST Wound care completed per wound consult instructions. No s/s noted of infection during wound care. * Chris Graham RN - 07/17/2024 9:17 AM EST PSYCHIATRY PATIENT DAILY SELF REPORT [address] [address] Name: Brittney Jimenez Location: [facility] [id number] Date: 07/17/2024 Time: 9:17 AM The patient reports the following: How are you sleeping? fair # of Hours: N/A How is your appetite? good On a scale from 0-10, rank your feelings of depression: 2 (0 being no depression and 10 being extremely depressed) On a scale from 0-10, rank your feelings of anxiety: 2 (0 being no anxiety and 10 being extremely anxious) On a scale from 0-10, rank your physical pain: 8 (0 being no pain and 10 being extreme pain) On a scale from 0-10, how are you managing your symptoms: 5 (0 being not managed at all and 10 being managed well) Are you having thoughts of hurting yourself or others? If yes, please be specific. no Are you experiencing hallucinations? If yes, please be specific. no Are you taking your medications as prescribed? no No Lasix Identify a situation you handled well within the last 24 hours: N/A Identify a situation you had a problem handling within the last 24 hours: N/A Identify a short term goal to work on today that will help you meet your treatment plan goals: Justget through the day * Trinity Reyes NA/UDC - 07/17/2024 9:15 AM EST Patient self-reported data from community meeting: Feeling: Hopeful Rates mood as: 9 Daily goal: Work on my anxiety How others can help me: Be there * Lissa Culver RN - 07/16/2024 9:10 PM EST Patient self-reported data from wrap-up meeting: Feeling word: peaceful Rates mood as: 8 Did you meet your daily goal? yes Positive thought: keep on chugging Adverse medication reaction: no * Robi Weldon RN - 07/16/2024 10:52 AM EST Pt did not complete her self report sheet * Theron Dennis NA/UDC - 07/16/2024 9:15 AM EST Patient self-reported data from community meeting: Feeling: Anxious Rates mood as: 8 Daily goal: Make it through the day How others can help me: Being supportive * Lissa Culver RN - 07/15/2024 9:16 PM EST Patient self-reported data from wrap-up meeting: Feeling word: sleepy Rates mood as: 8 Did you meet your daily goal? yes Positive thought: keep on chuggin Adverse medication reaction: no * Rip Angulo RN - 07/15/2024 11:14 AM EST PSYCHIATRY PATIENT DAILY SELF REPORT [address] [address] Name: Brittney Jimenez Location: [facility] [id number] Date: 07/15/2024 Time: 11:14 AM The patient reports the following: How are you sleeping? fair # of Hours: How is your appetite? good On a scale from 0-10, rank your feelings of depression: 2 (0 being no depression and 10 being extremely depressed) On a scale from 0-10, rank your feelings of anxiety: 2 (0 being no anxiety and 10 being extremely anxious) On a scale from 0-10, rank your physical pain: 8 (0 being no pain and 10 being extreme pain) On a scale from 0-10, how are you managing your symptoms: 7 (0 being not managed at all and 10 being managed well) Are you having thoughts of hurting yourself or others? If yes, please be specific. no Are you experiencing hallucinations? If yes, please be specific. no Are you taking your medications as prescribed? no (no lasix) Identify a situation you handled well within the last 24 hours: Hoahaoism's outbursts again Identify a situation you had a problem handling within the last 24 hours: Identify a short term goal to work on today that will help you meet your treatment plan goals: Justto make it through the day. * Rosario Lea NA - 07/15/2024 8:30 AM EST Patient self-reported data from community meeting: Feeling: good Rates mood as: 8 Daily goal: take the days as it comes How others can help me: being there * Mike Mondragon RN - 07/14/2024 10:13 PM EST Patient self-reported data from wrap-up meeting: Feeling word: Great Rates mood as: 9 Did you meet your daily goal? yes Positive thought: Keep your chin up. Adverse medication reaction: no * Robi Weldon RN - 07/14/2024 2:56 PM EST Wound care nurse on unit to replace gregory boots and redress pt's leg wounds. Boots to be replaced every Sunday and Sunday. Sunday07/16/24 gregory boots can be cut off in the am, dressings removed and pt can then take a shower. We can then call wound nurse Leydi to place new gregory boots and dress wounds. * Leydi Parker LPN - 07/14/2024 2:28 PM EST Images from the original note were not included. Pt was seen today for BLE dressing and Unna boot change. Pt is AA&O. Pleasant and cooperative. Pt reported she had dany wraps on upper legs until today because they got soiled with drainage. Unna boots BLE slide down to mid horn. Pt denied pain. Denied doing daily bathing for under other skin folds. Odor noted from pt when care given. BLE washed with soap & water. Dried. Covered ulcerations w/ Vaseline ointment and DSD. Appearance of ulcerations have granulation and sloughing. Mod amt serous drainage. Secured in place w/ tape and dany wrap. Skin intact to lower legs. Unna boots applied to BLE. Interdry applied to skin fold on Rt knee. Intertrigo rash improved. Call or TT w/ any questions or concerns. Leydi Parker LPN,[facility] Licensed Practical Nurse, Wound Care Certified, Ostomy director of event management Wound Care Resource Nurse 07/14/24 2:34 PM * Robi Weldon RN - 07/14/2024 2:08 PM EST PSYCHIATRY PATIENT DAILY SELF REPORT [address] [address] Name: Brittney Jimenez Location: [facility] [id number] Date: 07/14/2024 Time: 2:08 PM The patient reports the following: How are you sleeping? fair # of Hours: n/a How is your appetite? good On a scale from 0-10, rank your feelings of depression: 5 (0 being no depression and 10 being extremely depressed) On a scale from 0-10, rank your feelings of anxiety: 5 (0 being no anxiety and 10 being extremely anxious) On a scale from 0-10, rank your physical pain: 8 (0 being no pain and 10 being extreme pain) On a scale from 0-10, how are you managing your symptoms: 8 (0 being not managed at all and 10 being managed well) Are you having thoughts of hurting yourself or others? If yes, please be specific. no Are you experiencing hallucinations? If yes, please be specific. no Are you taking your medications as prescribed? yes Identify a situation you handled well within the last 24 hours: Pt's outbursts Identify a situation you had a problem handling within the last 24 hours: n/a Identify a short term goal to work on today that will help you meet your treatment plan goals: just take things day by day * Trinity Reyes NA/UDC - 07/14/2024 8:50 AM EST Patient self-reported data from community meeting: Feeling: Rates mood as: Daily goal: How others can help me: Pt didn't come out til late * Madeline Monaco RN - 07/13/2024 9:43 PM EST Patient self-reported data from wrap-up meeting: Feeling word: excited Rates mood as: 9 Did you meet your daily goal? yes Positive thought: I hope I sleep better tonight Adverse medication reaction: no * Madeline Monaco RN - 07/13/2024 9:26 PM EST Pts wound dressings were changed. Moderate amount of drainage noted on dressings. Pt tolerated procedure well. * Rosario Lea NA - 07/13/2024 10:06 AM EST PSYCHIATRY PATIENT DAILY SELF REPORT [address] [address] Name: Brittney Jimenez Location: [facility] [id number] Date: 07/13/2024 Time: 10:06 AM The patient reports the following: How are you sleeping? good # of Hours: n/a How is your appetite? good On a scale from 0-10, rank your feelings of depression: 3 (0 being no depression and 10 being extremely depressed) On a scale from 0-10, rank your feelings of anxiety: 3 (0 being no anxiety and 10 being extremely anxious) On a scale from 0-10, rank your physical pain: 6 (0 being no pain and 10 being extreme pain) On a scale from 0-10, how are you managing your symptoms: 7 (0 being not managed at all and 10 being managed well) Are you having thoughts of hurting yourself or others? If yes, please be specific. no Are you experiencing hallucinations? If yes, please be specific. no Are you taking your medications as prescribed? yes Identify a situation you handled well within the last 24 hours: n/a Identify a situation you had a problem handling within the last 24 hours: n/a Identify a short term goal to work on today that will help you meet your treatment plan goals: justtake the day as it comes * Rosario Lea NA - 07/13/2024 10:03 AM EST Patient self-reported data from community meeting: Feeling: dizzy Rates mood as: 7 Daily goal: make it through the day How others can help me: being there * Madeline Monaco RN - 07/12/2024 8:32 PM EST Patient self-reported data from wrap-up meeting: Feeling word: calm Rates mood as: 9 Did you meet your daily goal? yes Positive thought: there are small ships and large ships but the best ships are friendships Adverse medication reaction: no * Marsha Cobb RN - 07/12/2024 10:00 AM EST PSYCHIATRY PATIENT DAILY SELF REPORT [address] [address] Name: Brittney Jimenez Location: [facility] [id number] Date: 07/12/2024 Time: 10:00 AM The patient reports the following: How are you sleeping? good # of Hours: How is your appetite? good On a scale from 0-10, rank your feelings of depression: 2 (0 being no depression and 10 being extremely depressed) On a scale from 0-10, rank your feelings of anxiety: 3 (0 being no anxiety and 10 being extremely anxious) On a scale from 0-10, rank your physical pain: 7 (0 being no pain and 10 being extreme pain) On a scale from 0-10, how are you managing your symptoms: 6 (0 being not managed at all and 10 being managed well) Are you having thoughts of hurting yourself or others? If yes, please be specific. no Are you experiencing hallucinations? If yes, please be specific. no Are you taking your medications as prescribed? no no lasix Identify a situation you handled well within the last 24 hours: Identify a situation you had a problem handling within the last 24 hours: Identify a short term goal to work on today that will help you meet your treatment plan goals: Justtake it as it comes. * Colleen Todd NA - 07/12/2024 9:44 AM EST Patient self-reported data from community meeting: Feeling: excited Rates mood as: 8 Daily goal: to get through the day How others can help me: being there * Fern Beasley RN - 07/11/2024 9:22 PM EST Patient is currently taking an antipsychotic medication. Chart reviewed for lab results: Hgb A1C: 07/09/24 @ 1255 Lipid Panel: 07/09/24 @ 1255 * Fern Beasley RN - 07/11/2024 9:09 PM EST Patient self-reported data from wrap-up meeting: Feeling word: confident Rates mood as: 9 Did you meet your daily goal? yes Positive thought: have a good day Adverse medication reaction: no * Rip Angulo RN - 07/11/2024 10:32 AM EST PSYCHIATRY PATIENT DAILY SELF REPORT [address] [address] Name: Brittney Jimenez Location: [facility] [id number] Date: 07/11/2024 Time: 10:32 AM The patient reports the following: How are you sleeping? fair # of Hours: How is your appetite? fair On a scale from 0-10, rank your feelings of depression: 4 (0 being no depression and 10 being extremely depressed) On a scale from 0-10, rank your feelings of anxiety: 4 (0 being no anxiety and 10 being extremely anxious) On a scale from 0-10, rank your physical pain: 6 (0 being no pain and 10 being extreme pain) On a scale from 0-10, how are you managing your symptoms: 6 (0 being not managed at all and 10 being managed well) Are you having thoughts of hurting yourself or others? If yes, please be specific. no Are you experiencing hallucinations? If yes, please be specific. no Are you taking your medications as prescribed? no Lasix not being taken. Identify a situation you handled well within the last 24 hours: Being stuck in the ER for over 12 hours Identify a situation you had a problem handling within the last 24 hours: Having my roommate not come in to see me while in the ER Identify a short term goal to work on today that will help you meet your treatment plan goals: to be able to speak up about my feelings. * Esther Membreno NA - 07/11/2024 9:00 AM EST Patient self-reported data from community meeting: Feeling: Calm Rates mood as: 7 Daily goal: To be able to speak up. How others can help me: Be supportive. * Fern Beasley RN - 07/11/2024 12:24 AM EST Spoke to Kalyn Bass from [facility]. Approved 5 days, 07/10-07/14. Review on Jul 14. Authorization [id number]. * Fern Beasley RN - 07/10/2024 9:57 PM EST Patient self-reported data from wrap-up meeting: Feeling word: nervous Rates mood as: 6 Did you meet your daily goal? N/a Positive thought: take everything day by day Adverse medication reaction: no * Madeline Monaco RN - 07/10/2024 9:50 PM EST PHQ9 Survey Results Last 24hours (since 07/09/2024) Little interest or pleasure in doing things Nearly everyday Feeling down, depressed or hopeless Nearly everyday Trouble falling or staying asleep, or sleeping too much Nearly everyday Feeling tired or having little energy Nearly everyday Poor appetite or overeating Several days Feeling bad about yourself - or that you are a failure, or have let yourself or your family down Nearly everyday Trouble concentrating on things, such as reading the newspaper or watching television Several days Moving or speaking so slowly that other people could have noticed. Or the opposite - being so fidgety or restless that you have been moving around a lot more than usual More than half the days Thoughts that you would be better off , or of hurting yourself Not at all PHQ Adult Total Score 19 * Keli Deal RN - 07/10/2024 6:28 PM EST Pt was cooperative for nursing assessment. She has sad mood and blunted affect. Reports that she has been helpless, hopeless, and sad. Has been more irritable than usual, has a decreased energy level, and a lack of interest in activities she previously enjoyed. Denies suicidal or homicidal ideations. Pt has open wounds below both knees that are being cared for by [facility] wound clinic. They were not observed by this short story writer because dressing was applied today by wound care nurse. It was also reported that pt was MRSA positive, and wound precautions were initiated. Pt was also educated about making sure she washes hands frequently and especially if touches infected areas. She also understood and agr eed to notify staff and remain in her room if she notices any discharge that is not contained by dressings. She will also dispose of any items with drainage in the garbage can that is in her room. * Keli Deal RN - 07/10/2024 6:26 PM EST Pt arrived at 1645 and was escorted by ED staff. She appears alert and oriented. Denies current suicidal or homicidal ideations and contracts for safety. Contraband secured at desk. Safety search completed by Keli Crespo and [facility]. * Keli Deal RN - 07/10/2024 5:30 PM EST Pt reports drinking a few times a year. Has up to six drinks when she uses alcohol * Robi Weldon RN - 07/10/2024 5:24 PM EST TREATMENT PLAN NOTE INPATIENT PSYCHIATRY [facility] [address] Name: Brittney Jimenez Location: [facility] [id number] Date: 07/10/2024 Time: 5:25 PM Commitment Level on Admission: 201 Initial Diagnosis: Depressive Disorder NOS Anticipated Length of Stay: 5-7 days Brittney STRENGTHS: Please select a minimum of 2 strengths Recognizes need for change, Seeking help, Goal Oriented, and Cooperative OPPORTUNITIES FOR IMPROVEMENT: Area of Need: suicidal thoughts Short Term Goal: --SUICIDAL THOUGHTS-- Brittney will be free from suicidal thoughts by target date. Goal Progress: New need Target Date: 07/17/24 Goal Progress: Goal achieved and Continue Target Date: 07/24/24 Goal Progress: Goal achieved, pt denies thoughts of self harm. Discharged 07/21/24 Psych Area of Need: depressed mood Short Term Goal: --DEPRESSED MOOD-- Brittney will report an elevation in mood by discharge. Brittney will demonstrate an elevation in mood by utilizing one to one interactions with staff everyshift while awake by target date. Brittney will demonstrate an elevation in mood as observed by attendance and participation in unit activity and groups by by target date. Brittney will demonstrate an elevation in mood by interacting with other patients on a more frequentbasis. Goal Progress: New need Target Date: 07/17/24 Goal Progress: Moving toward and Continue Target Date: 07/24/24 Goal Progress: Continue Discharged 07/21/24 Psych Area of Need: low self-esteem Short Term Goal: --LOW SELF-ESTEEM-- Brittney will verbalize one positive character quality with staff every shift while awake by target date. Goal Progress: New need Target Date: 07/17/24 Goal Progress: Moving toward and Continue Target Date: 07/24/24 Goal Progress: Continue Psych Area of Need: anxiety Short Term Goal: Brittney will discuss any anxiety related issues with staff at least once a shift while awake. Goal Progress: Moving toward and Continue Target Date: 07/24/24 Goal Progress: Continue PSYCH INTERVENTIONS: Core Interventions: One to one interaction with staff Medication Therapeutic group activities Patient education Discharge planning Daily session with psychiatrist Psycho-educational groups Leisure activities Community meetings Observation levels Additional interventions: Group therapy services mgr NURSING HOME GOALS: Brittney will report a decrease in depressive symptoms and an improvement in mood by discharge. Brittnye will return home with their mood improved and eating, drinking and performing activities ofdaily living. Brittney will verbalize an elevation in mood and an absence of, or a decrease in homicidal ideationstoward others by discharge. Brittney will report a decrease in anxiety levels when facing events that precipitate increased anxiety by discharge. Brittney will interact with staff and peers using appropriate, acceptable behaviors by discharge. Brittney will demonstrate increased self-esteem through verbal expression of positive aspects of self by discharge. Brittney will accept responsibility for own behavior by discharge. Brittney will be free from physical injury for duration of hospital stay. Brittney will indentify and use one positive coping skill by discharge. Brittney will keep all follow up appointments. Brittney will take medications as prescribed and, if there are issues with the medication, will discuss with psychiatrist. Brittney will reach out to positive supports. MEDICAL NEEDS: Chronic Medical Need: Brittney's goals listed below: Sleep apnea: Will report restful sleep during the hospital stay. Intervention - Respiratory Therapyprovides patient with CPAP machine set at appropriate levels. Asthma: Goal - Respiratory status will remain stable during the hospital stay. Intervention - Administer medications as ordered. Provide oxygen as ordered. Acute Medical Need:N/A Short Term Goal: N/A Interventions: N/A Goal Progress: N/A Target Date: N/A Delores De Jesus MD 07/11/2024 7:05 AM Ayala Adrian PA-C 07/14/2024 8:23 AM Cem Archer MD 07/14/2024 11:39 AM Delores De Jesus MD 07/21/2024 6:43 AM Ayala Adrian PA-C 07/21/2024 7:43 AM documented in this encounter ED Notes * Santosh Ruiz, DO - 07/10/2024 7:59 AM EST See ED course Turnover to Dr Harris 7am I have reviewed the clinical lab, radiology, and other medical tests that were ordered during this encounter (see all). ED Course as of 07/10/24 0759 Wed Jul 09, 2024 1350 Psych will review chart and make recommendations. [JT] 1437 Amphetamines Screen, U(!): Positive Likely secondary to WEllbutrin [JT] 1600 Called lab. RVP was never run. Will complete testing now [JT] 1638 Transfer of care: here with depression, isolation. Requesting admission. + Passive SI. Awaiting psych consult. [MM] 1703 Inpatient care recommended. Patient signed 201. Aware that she will not be in patient at [facility]. Agreeable to bed search [JT] 1842 Med req completed. Orders placed. [JT] [address] [facility] 7 A - advised that no female discharges are expected tomorrow. Because patient is medically complicated and has started her care for wounds at [facility], patient may beable to stay at [facility]. Advised checking in tomorrow. [JT] 1951 Report given to True Perez PA-C, who will assume full care of the patient at this time [JT] 2032 Patient has significant leg wounds with UniBoots in place since today [MM] Deirdre Jul 10, 2024 0054 D/w MJM - 201 for depression/passive SI - chronic leg wounds seeing wound care every other day- try to admit here [TS] 0152 Resting comfortably eyes closed [TS] 0711 I assumed care of the patient at this time. Resting comfortably, no complaints. Vital signs stable. 201 signed. Hopefully able to be admitted to given wound care needs. [JH] ED Course User Index [JH] Ra Harris DO [JT] Avelina Wood PA-C [MM] Balwinder Sinclair MD [TS] Santosh Ruiz DO * Balwinder Sinclair MD - 07/09/2024 12:21 PM EST HISTORY OF PRESENT ILLNESS Brittney Jimenez is a 49 year old female who presents to the ED for evaluation of Depression and Psychological Evaluation. The patient was seen at 07/09/24 1219. 49 year old female with PMH significant for LYNSEY, bipolar 1, PTSD presents to ED c/o worsening depression and passive SI x several weeks. Context: h/o depression. Compliant with daily medications but feels they aren't effective any longer. Symptoms: passive SI ("It would be better if I didn't wake up"; "Everyone would be better off if I were gone"), apathy, anhedonia, excessive amount of sleeping Denies HI. Inpatient care several years ago at [facility] Outpatient care provided by [facility] No stressor, aggravating or alleviating factors. Requesting in patient care. Cannot contract for safety if discharged to home. Currently seeing wound care every other day for dressing changes to BLE. Dressing changed today before arrival in ED. Gregory boot application every other day Review of Systems Constitutional: Positive for activity change and appetite change. Negative for chills, diaphoresis and fatigue. Respiratory: Negative for cough and shortness of breath. Cardiovascular: Negative for chest pain and palpitations. Gastrointestinal: Negative for abdominal pain, diarrhea, nausea and vomiting. Skin: Positive for wound (BLE. Seen at wound clinic today). Neurological: Negative for dizziness, light-headedness and headaches. Psychiatric/Behavioral: Positive for agitation, decreased concentration, dysphoric mood and sleep disturbance. Negative for confusion, hallucinations, self-injury and suicidal ideas. The patient is nervous/anxious. The patient is not hyperactive. The patient's allergies, past history, and medications were reviewed. PHYSICAL EXAM Initial Vitals (see all): BP 137/65 | Pulse 82 | Resp 20 | Temp 97 | O2 99 %, Room Air, None | Weight 163.3 kg | Height 149.9cm | BMI 72.71 kg/m2 Initial Pain Assessment (see all): 4 (moderate pain)/10, Aching, location: bilateral knees ([facility] Adult Scale 0-10) Physical Exam Vitals and nursing note reviewed. Constitutional: General: She is awake. She is not in acute distress. Appearance: Normal appearance. She is not ill-appearing, toxic-appearing or diaphoretic. HENT: Head: Normocephalic and atraumatic. Jaw: There is normal jaw occlusion. Mouth/Throat: Lips: [place]. Mouth: Mucous membranes are moist. Pharynx: Oropharynx is clear. Uvula midline. Neck: Thyroid: No thyromegaly or thyroid tenderness. Trachea: Trachea and phonation normal. Cardiovascular: Rate and Rhythm: Normal rate and regular rhythm. Heart sounds: Normal heart sounds. Pulmonary: Effort: Pulmonary effort is normal. Breath sounds: Normal breath sounds and air entry. Abdominal: General: Bowel sounds are normal. Palpations: Abdomen is soft. Tenderness: There is no abdominal tenderness. Musculoskeletal: Cervical back: Full passive range of motion without pain and neck supple. Lymphadenopathy: Head: Right side of head: No submental, submandibular or tonsillar adenopathy. Left side of head: No submental, submandibular or tonsillar adenopathy. Cervical: No cervical adenopathy. Upper Body: Right upper body: No supraclavicular adenopathy. Left upper body: No supraclavicular adenopathy. Skin: General: Skin is warm and dry. Capillary Refill: Capillary refill takes less than 2 seconds. Neurological: Mental Status: She is alert and oriented to person, place, and time. Psychiatric: Attention and Perception: Attention and perception normal. Mood and Affect: Mood is depressed. Affect is flat. Speech: Speech normal. Behavior: Behavior is cooperative. Thought Content: Thought content does not include homicidal or suicidal ideation. Thought content does not include homicidal or suicidal plan. PROCEDURES AND TREATMENTS ED Orders | ED Results MEDICAL DECISION MAKING Nursing notes and vital signs were reviewed. ED consults were placed. ED Course as of 07/15/24 0906 SunJul 09, 2024 1350 Psych will review chart and make recommendations. [JT] 1437 Amphetamines Screen, U(!): Positive Likely secondary to WEllbutrin [JT] 1600 Called lab. RVP was never run. Will complete testing now [JT] 1638 Transfer of care: here with depression, isolation. Requesting admission. + Passive SI. Awaiting psych consult. [MM] 1703 Inpatient care recommended. Patient signed 201. Aware that she will not be in patient at [facility]. Agreeable to bed search [JT] 184 Med req completed. Orders placed. [JT] [address] [facility] 7 A - advised that no female discharges are expected tomorrow. Because patient is medically complicated and has started her care for wounds at [facility], patient may beable to stay at [facility]. Advised checking in tomorrow. [JT] 1951 Report given to True Perez PA-C, who will assume full care of the patient at this time [JT] 2032 Patient has significant leg wounds with UniBoots in place since today [MM] [facility] Jul 10, 2024 0054 D/w MJM - 201 for depression/passive SI - chronic leg wounds seeing wound care every other day- try to admit here [TS] 0152 Resting comfortably eyes closed [TS] 0711 I assumed care of the patient at this time. Resting comfortably, no complaints. Vital signs stable. 201 signed. Hopefully able to be admitted to given wound care needs. [JH] ED Course User Index [JH] Ra Harris, [JT] Avelina Wood PA-C [MM] Balwinder Sinclair MD [TS] Santosh Ruiz DO Differential Diagnoses Based on my history, physical exam, and evaluation, the differential includes, but is not limited, to the following diagnoses: SI, HI, depression, anxiety, danger to self, danger to others. 49 year old female with PMH significant for LYNSEY, bipolar 1, PTSD presents to ED c/o worsening depression and passive SI x several weeks. HPI and physical exam as described above. Patient had laboratory workup, medically cleared, amphetamine screen was positive, this was likely secondary to Wellbutrin. Inpatient care recommended by telehealth psych consult. Two hundred one signed. Bed search was started. Med rec was completed. Patient has a extensive wounds and requires dressing changes every other day and Unna boot application to her lower extremities. Difficult to find a bed due to being medically complicated, will observe here in the emergency department. Provided tylenol for pain. Patient signed out to Dr. Ruiz at the end of my shift. Amount and/or Complexity of Data Reviewed Labs: ordered. Decision-making details documented in ED Course. Risk OTC drugs. Prescription drug management. Clinical Impressions Mood disorder (HCC) Passive suicidal ideations Depression, unspecified depression type Disposition Admitted. I discussed the management of this patient with the admitting provider and I made a decision to admit the patient. Admission Order Ordered Status . 07/10/24 1607 Admit for Inpatient Services (incl ZPO) ONCE Completed Balwinder Sinclair MD was the attending physician who supervised the care of this patient. Avelina Wood PA-C ATTENDING ATTESTATION I have discussed the patient's management with the provider listed above and agree with the note, findings, and plan of care. I personally made/approved the management plan and take responsibility for patient management. I saw and evaluated the patient. documented in this encounter Miscellaneous Notes * Ancillary Progress Note - Avelina Jaquez LCSW - 07/21/2024 11:51 AM EST PSYCHIATRY GROUP THERAPY NOTE INPATIENT PSYCHIATRY [facility] [address] Name: Brittney Jimenez Location: [facility] [id number] Date: 07/21/2024 Time: 11:51 AM Group Start Time: 1100 Group End Time: 1140 THERAPEUTIC GROUP ACTIVITIES ATTENDED: Seasonal Activity: Gratitude Ornaments and Tree Decoration, Participation: Other/Describe: Pt did not attend, Interactions: Comment/Description: n/a, Behaviors: Comment/Description: n/a COMMENTS: Pt did not attend group despite being invited; pt stated that she was packing for discharge. * Ancillary Progress Note - Jennifer Palomino Med - 07/21/2024 8:32 AM EST All discharge is complete [facility] or her roommate will pick her up. The discharge instructions with discharge medication list / medication indications to be faxed to the patient's outpatient providers. Met with patient to review discharge plans including outpatient mental health services and activities of daily living that are needed for a healthier lifestyle. Patient reports feeling well, and is requesting discharge today to their individualized aftercare. Patient is able to contract for safety and plans to take better care of oneself after discharge. Patient was encouraged to go to all scheduled aftercare appointments and to take medications as prescribed. A mental health crisis number was given to patient and/or family if in need of urgent assistance related to patient's mental health problems. Patient signed release of information for aftercare providers, discharge documentation was forwarded. Patient was discharged improved but with guarded prognosis. * Care Plan - Mike Mondragon RN - 07/21/2024 12:07 AM EST Clinical Goal(s): Pt will prepare for discharge tomorrow (07/20/241899) Possible barriers to meeting goal(s)/advancing plan of care: Poor insight Stability of the patient: Moderately stable - low risk of patient condition declining or worsening Summary regarding today's goal(s): Met: Pt seems to be ready for discharge Recommendations: Encourage independence and autonomy in self care. * Care Plan - Mike Mondragon RN - 07/20/2024 12:07 AM EST Clinical Goal(s): Pt will attend wrap up (07/19/241899) Possible barriers to meeting goal(s)/advancing plan of care: Poor judgement Stability of the patient: Moderately stable - low risk of patient condition declining or worsening Summary regarding today's goal(s): Met: Continue plan of care Recommendations: Continue plan of care. * Care Plan - Mike Mondragon RN - 07/19/2024 12:19 AM EST Clinical Goal(s): pt will attend wra up (07/18/241999) Possible barriers to meeting goal(s)/advancing plan of care: poor judgement Stability of the patient: Moderately stable - low risk of patient condition declining or worsening Summary regarding today's goal(s): Met: Pt attended Recommendations: Continue plan of care. * Ancillary Progress Note - Lucius Lawson MS - 07/18/2024 4:47 PM EST PSYCHIATRY GROUP THERAPY NOTE INPATIENT PSYCHIATRY [facility] [address] Name: Brittney Jimenez Location: [facility] [id number] Date: 07/18/2024 Time: 4:47 PM THERAPEUTIC GROUP ACTIVITIES: Check In: Identify how they are feeling in the moment by selecting their top 3 emotions from an emotion chart. Explain what might be the reason for these feelings. A discussion/process immediately follows.Then, did they accomplish their goal from yesterday, and what is their goal for today. Reminiscing: Implementation of an activity that promotes specific memories. Patients are to select their favorite memory near the end of the activity. Music Therapy: Patients told therapist in the first group, to name a song that they really like and and connect to. Therapist printed lyrics and shared one song at a time. The patient that asked for that song was asked various questions. In hopes to have positive outcomes. COMMENTS: Brittney attended all groups today. In the first group, she expressed she was feeling foggy. She explains that she slept better last night, because she did not have to get up to void as often. However, her deepest sleep, is the time then she is being woken up. She does say that this has been a majorsleeping change for her. Therapist asked if she finished her routine yet for when she goes home, and she has not. She did achieve her other goals, Therapist gave her coping skills how she might be able to increase relaxation at bedtime, so she can retire earlier than she does at home. Therapist also made a suggestion of possibly one extra caffeinated drink in the morning. Otherwise, therapist efra mmended she talk to the doctor to see if there was anything else that can be done. In the second group, she actively participated and was attentive. Her favorite memory was going [place] [employer] [place] the train. In the last group, she selected a sad song as a song she connects to. As the played, she beganto cry. She expressed that she feels damaged as the song states, and she commented she feels it best suites her at this time. Then, she commented something new that in the past she did do a lot of drinking, and talking about this was healthy for her. Therapist made the connection that she is tryingher best every day. * Ancillary Progress Note - Magaly Braga RDN - 07/18/2024 10:14 AM EST CLINICAL NUTRITION ADULT RISK ASSESSMENT [address] [address] Name: Brittney Jimenez Location: [facility] 7A-7123/A Date: 07/18/2024 Time: 10:14 AM How patient was identified (select 2): date and Name Brittney Jimenez is a 49 year old female being assessed for clinical nutrition risk related to follow-up Primary diagnosis: bipolar disorder, current episode depressed, moderate Other pertinent information: Met patient at bedside. Patient reports her appetite is not too bad. She has been consuming 100% of her meal since admission. No issues with current food consistency. Reports a little constipation. She is not on any stool softener at this time but will ask for bowel meds if needs. Offer her snacks --patient would like ivorian yogurt with lunch and dinner to promote bowel movement. Anthropometrics Measurements Admission weight (for dietitians): 163.3 kg (?stated weight) Height: 149.9 cm (4' 11") (07/10/241707) Weight: (!) 163.3 kg (360 lb) (07/10/241707) BMI: 72.67 (07/10/241707) Usual Body Weight or EDW for Dialysis Patients: 380 lbs (172.7 kg) per patient Diet: Regular Previously followed diet: Regular Food Allergies/Intolerances: NKFA Oral Nutrition Supplement (ONS): none Pertinent medications/vitamins/minerals/supplements: ferrous sulfate, omeprazole, potassium chloride RISK FACTORS: Adult Energy Intake: No significant decrease Interpretation of Weight Change: weight loss, not significant; 4.7% x 1 month Skin: Intact NUTRITION RISK CATEGORY: Nutrition Risk Category: Low/Moderate (0-1 factors) Clinical Nutrition Recommendations: Diet: Continue current nutrition plan NUTRITION INTERVENTION/PLAN: Continue current care plan Will follow and adjust nutritional plan as medical condition requires. Please contact for change(s)in patient condition requiring earlier intervention. Magaly Braga MS, RADHAN Clinical Nutrition [facility] Available via [place] Text [phone] * Care Plan - Lissa Culver RN - 07/18/2024 4:35 AM EST Clinical Goal(s): pt will attend wrap up (07/17/24 2100) Possible barriers to meeting goal(s)/advancing plan of care: Poor judgement Stability of the patient: Moderately stable - low risk of patient condition declining or worsening Summary regarding today's goal(s): Met: Attended Recommendations: Continue to encourage groups * Ancillary Progress Note - Lucius Lawson MS - 07/17/2024 5:30 PM EST PSYCHIATRY GROUP THERAPY NOTE INPATIENT PSYCHIATRY [facility] [address] Name: Brittney Jimenez Location: [facility] 7A-7123/A Date: 07/17/2024 Time: 5:31 PM THERAPEUTIC GROUP ACTIVITIES: Check In: Identify how they are feeling in the moment by selecting their top 3 emotions from an emotion chart. Explain what might be the reason for these feelings. A discussion/process immediately follows.Then, did they accomplish their goal from yesterday, and what is their goal for today. Reminiscing: Implementation of an activity that promotes specific memories. Patients are to select their favorite memory near the end of the activity. Coping Skills: Clinton and beaded bracelets, socialization, and selecting, sharing, and listening to music. COMMENTS: Brittney attended the morning groups. In the first group, she expressed she was feeling exhausted, because she was not sleeping well at nights, due to her left knee hurting and the need to void often.She also reported she is feeling peaceful, because her room mate came to visit her. It actually wasa surprise. She really didn't get to work on her goals yesterday. So, today she planned on completing her routine schedule, taking a nap after 3:00 pm, and find out if her room mate would mind about someone coming to their place every few months. She did get the last one accomplished already. In the second group she actively participated, and was attentive. Her favorite memory was reading books to children while she baby sat them. She told therapist she did not come to the last group, because she was having her wounds taken care of. She has a better affect today. * Ancillary Progress Note - Jennifer Palomino Med - 07/17/2024 11:51 AM EST Deonna Chapincito/roommate is concerned about her returning to their trailer with no walk in shower and that she does not think she is able to step in the shower. She wanted short story writer to look into resources for someone to buy her a shower and to upgrade their walkway into their home to make is disability accessible. Lithography Contact Worker explained local churches often can upgrade or help towards and possibly office o f aging to assist with helping her shower with the shower they have. * Care Plan - La Nena Schulz RN - 07/17/2024 3:54 AM EST Clinical Goal(s): pt will attend wrap up (07/16/241999) Possible barriers to meeting goal(s)/advancing plan of care: poor judgement Stability of the patient: Moderately stable - low risk of patient condition declining or worsening Summary regarding today's goal(s): Met: attended Recommendations: continue to encourage groups * Ancillary Progress Note - Lucius Lawson, MS - 07/16/2024 6:15 PM EST PSYCHIATRY GROUP THERAPY NOTE INPATIENT PSYCHIATRY [facility] [address] Name: Brittney Jimenez Location: [facility] [id number]-[id number] Date: 07/16/2024 Time: 6:15 PM THERAPEUTIC GROUP ACTIVITIES: Check In: Identify how they are feeling in the moment by selecting their top 3 emotions from an emotion chart. Explain what might be the reason for these feelings. A discussion/process immediately follows.Then, did they accomplish their goal from yesterday, and what is their goal for today. PatientEducation: Topic- Fear & Stress Management. Therapist reviewed handouts with focusing on the recinos points only. Recognizing their fears and decreasing them to decrease their stress. Also, select a coping skills to use to reduce the fear and stress. Coping Skills: Painting pine cones, socialization, and selecting, sharing, and listening to music. COMMENTS: Brittney attended the morning groups today. She went to do something medical in the last group. In the first group, she expressed she was feeling anxious, just about going home. She rated her anxiety at a 7, with 10 being the worst. She also rated her depression at a 3 with 0 no depression at all. She feels her moods are even. She reported that she did work on her goal yesterday, and her goal today is to complete her started scheduled routine, try to make a decision for community support, beforedischarge, and remain positive with her positive affirmation. Therapist asked her more questions about her room mate, to help her talk about her home life a little more. She stated they have lived together for 12 years, and she believes that her room mate truly doesn't realize how much help she needs. Therapist tried to get her to focus on what type of help she could use, and talk to room mate about getting this support. In the second group, she acknowledged her fear as not being able to overcome her anxiety. And what she identified she will begin to work on is breathing through the panic. * Care Plan - Fern Beasley RN - 07/16/2024 12:17 AM EST Clinical Goal(s): Pt will attend wrap-up this shift (07/15/241999) Possible barriers to meeting goal(s)/advancing plan of care: poor insight Stability of the patient: Moderately stable - low risk of patient condition declining or worsening Summary regarding today's goal(s): Met: attended wrap-up Recommendations: will encourage group participation * Ancillary Progress Note - Lucius Lawson, MS - 07/15/2024 5:57 PM EST PSYCHIATRY GROUP THERAPY NOTE INPATIENT PSYCHIATRY [facility] [address] Name: Brittney Jimenez Location: [facility] [id number]-[id number] Date: 07/15/2024 Time: 5:58 PM THERAPEUTIC GROUP ACTIVITIES: Check In: Identify how they are feeling in the moment by selecting their top 3 emotions from an emotion chart. Explain what might be the reason for these feelings. A discussion/process immediately follows.Then, did they accomplish their goal from yesterday, and what is their goal for today. PatientEducation: Topic- Developing a Routine Schedule: Therapist reviewed handouts on the important things to make sure they have a routine. After the review, therapist also had them identify 5 things theyenjoy doing. Then, they were to tell therapist their favorite. Therapist said they need to make time to do this as well. Coping Skills: Creating Calvin Cards, socialization, and selecting, sharing, and listening to music. COMMENTS: Brittney attended all three groups. In the first group, she expressed she was feeling peaceful, because she got a little better sleep last night. She also reported she was up less to void. But, she still has physical pain in her knees and feet. She reports that the Tylenol helps. Then, she also admits she is feeling shy, or nervous around new people. Therapist told her that is normal, until you get to know them, and this is probably a good thing also. Therapist asked her what happened that brought her into the hospital. She expressed that her friends noticed she was spiraling down, and suggested she go get help before it becomes too bad. This is not the first experience she has had with this either. She also shares she has a friend , who is her room mate and she does live locally. She willbe having individual therapy arranged, and she completed her goal to say her positive affirmation yesterday. Her goal for today is to complete half of a scheduled routine, at least a wake up and bed time. In the second group she was attentive and invested. And she was independent in the last group.She shared her music, and interacted some with others. * Care Plan - Fern Beasley RN - 07/15/2024 12:46 AM EST Clinical Goal(s): Pt will attend wrap-up this shift (07/14/241999) Possible barriers to meeting goal(s)/advancing plan of care: poor insight Stability of the patient: Moderately stable - low risk of patient condition declining or worsening Summary regarding today's goal(s): Met: attended wrap-up Recommendations: will encourage group particpation * Ancillary Progress Note - Lucius Lawson MS - 07/14/2024 2:45 PM EST PSYCHIATRY GROUP THERAPY NOTE INPATIENT PSYCHIATRY [facility] [address] Name: Brittney Jimenez Location: [facility] [id number] Date: 07/14/2024 Time: 2:45 PM THERAPEUTIC GROUP ACTIVITIES: Check In: Identify how they are feeling in the moment by selecting their top 3 emotions from an emotion chart. Explain what might be the reason for these feelings. A discussion/process immediately follows.Then, did they accomplish their goal from the weekend, and what is their goal for today. Patient Education: Topic- Self Compassion. Therapist gave a packet of handouts and reviewed them. Also, therapist identified the ways to practice self compassion. 1) The Self Compassion Break, Changing Critical Thinking or negative thinking, Meditation, or the Self Compassion Chart. Relaxation with Music: Therapist reviewed a handout on different ways to relax, and implemented them briefly. The 2 most focused on was stretching and The Self Compassion Meditation for Beginners. COMMENTS: Lucretia attended all the morning group groups. Her helicopter specialist was here for her during the last group. In the first group, she expressed she was feeling at first good. Therapist asked to be more specific, and was given the emotion chart. She reported then she was happy, to be in the group. She was also mostly tired physically, because she didn't sleep well last night. She continued to say thather knees were giving her pain, and see was up to void at least 3 times. Her goal for today was to take a nap, after all the groups. However, she was helping with the decorating in the afternoon. Therapist saw her with her head on her arms, which were on the table. Therapist suggested a nap after she commented she was tired. But, she did not try and lay down to rest. In the second group, she was attentive to the presentation on self compassion, and a peer shared story. She was supportive of this peer. * Care Plan - Madeline Monaco RN - 07/14/2024 12:07 AM EST Clinical Goal(s): Pt will attend wrap up (07/13/241999) Possible barriers to meeting goal(s)/advancing plan of care: None Stability of the patient: Moderately unstable - medium risk of patient condition declining or worsening Summary regarding today's goal(s): Met: Pt participated in wrap up Recommendations: Continue plan of care * Care Plan - Meghan Jimenez RN - 07/13/2024 1:00 AM EST Clinical Goal(s): Pt will attend wrap up this shift (07/12/241999) Possible barriers to meeting goal(s)/advancing plan of care: poor judgement Stability of the patient: Moderately unstable - medium risk of patient condition declining or worsening Summary regarding today's goal(s): Met: Pt attended wrap up this shift and participated Recommendations: continue with current plan of care * Care Plan - Fern Beasley RN - 07/12/2024 12:25 AM EST Clinical Goal(s): Pt will attend wrap-up this shift (07/11/241999) Possible barriers to meeting goal(s)/advancing plan of care: poor insight Stability of the patient: Moderately stable - low risk of patient condition declining or worsening Summary regarding today's goal(s): Met: attended wrap-up Recommendations: will encourage group participation * Ancillary Progress Note - Lucius Lawson, MS - 07/11/2024 5:46 PM EST PSYCHIATRY GROUP THERAPY NOTE INPATIENT PSYCHIATRY [facility] [address] Name: Brittney Jimenez Location: [facility] [id number] Date: 07/11/2024 Time: 5:46 PM THERAPEUTIC GROUP ACTIVITIES: Check In: Identify how they are feeling in the moment by selecting their top 3 emotions from an emotion chart. Explain what might be the reason for these feelings. A discussion/process immediately follows.Then, did they accomplish their goal from yesterday, and what is their goal for today. This group was extended due to lengthy and appropriate discussions/processes. There was no second group. Coping Skills: The following skills were practiced: art- painting & glittering pine cones for the holidays, selecting, sharing and listening to music, and socialization. COMMENTS: Lucretia attended joy of the first group. However, she left with the helicopter specialist for some time. She returned at the end, and identified already before she left that her goal over the weekend is to say one positive affirmation on each day. In the last group, she appeared to enjoy the project in the group. She was singing sometimes with the music. She interacted with a peer and shared her experience. She has appeared to be interested, invested and involved. * Ancillary Progress Note - Jennifer Palomino Med - 07/11/2024 9:21 AM EST FULL SOCIAL HISTORY PROGRESS NOTE - PSYCHIATRY [facility] [address] Name: Brittney Jimenez Location: [facility] [id number]-[id number] Date: 07/11/2024 Time: 9:21 AM DEMOGRAPHIC INFORMATION: Address: [address] [place] [id number] Phone: There are no phone numbers on file. County of Residence: [place] SOURCE OF INFORMATION: patient and record review PRESENTING PROBLEM: Brittney Jimenez is a 49 year old female who presents to the ED for evaluation of Depression and Psychological Evaluation. The patient was seen at 07/09/24 1219. 49 year old female with PMH significant for LYNSEY, bipolar 1, PTSD presents to ED c/o worsening depression and passive SI x several weeks. Context: h/o depression. Compliant with daily medications but feels they aren't effective any longer. Symptoms: passive SI ("It would be better if I didn't wake up"; "Everyone would be better off if I were gone"), apathy, anhedonia, excessive amount of sleeping Denies HI. Inpatient care several years ago at [facility] Outpatient care provided by [facility] No stressor, aggravating or alleviating factors. TREATMENT HISTORY: Psychiatric Hospitals: yes Hospital and Date of Admission: Unknown Outpatient Treatment: yes Name of Provider: [facility] Agencies: no FAMILY HISTORY: Family members diagnosed with mental illness: no Relationship: unknown Diagnosis: unknown History of family members attempting or committing suicide: no SOCIAL HISTORY: Place of : [place] Number of Siblings: 3 walt Parents Living: no Relationship with Parents: Did have a relationship with her family MARITAL HISTORY: single EDUCATION: Graduated high school. 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 * Ancillary Progress Note - Magaly Braga RDN - 07/11/2024 9:20 AM EST CLINICAL NUTRITION ADULT RISK ASSESSMENT [address] [address] Name: Brittney Jimenez Location: [facility] [id number]-7123/A Date: 07/11/2024 Time: 9:20 AM How patient was identified (select 2): date and Name Brittney Jimenez is a 49 year old female being assessed for clinical nutrition risk related to significant unintentional weight loss Primary diagnosis: mood disorder Other pertinent information: Patient reports appetite is good. She has been consuming 100% of her meals since admission. Denies chewing or swallowing difficulties, N/V, constipation/diarrhea. Reportsappetite at home fluctuates. She will binge on one day and eat nothing on another. She believes mood affects her appetite a lot. Patient reports losing 20 lbs in last couple months. Per EHR, she lost4.7% of weight in 1 month. States that the weight loss is unintentionally, but she is glad to see some weight loss. Patient has no issues with current diet order. Will continue to monitor her meal intake and weight. Anthropometrics Measurements Admission weight (for dietitians): 163.3 kg (?stated weight) Height: 149.9 cm (4' 11") (07/10/24 170) Weight: (!) 163.3 kg (360 lb) (07/10/24 170) BMI: 72.67 (07/10/241707) Usual Body Weight or EDW for Dialysis Patients: 380 lbs (172.7 kg) per patient Diet: Regular Previously followed diet: Regular Food Allergies/Intolerances: NKFA Oral Nutrition Supplement (ONS): none Pertinent medications/vitamins/minerals/supplements: omeprazole, potassium chloride RISK FACTORS: Adult Energy Intake: Meal intake inconsistently Interpretation of Weight Change: weight loss, not significant; 4.7% x 1 month Skin: Intact NUTRITION RISK CATEGORY: Nutrition Risk Category: Low/Moderate (0-1 factors) Clinical Nutrition Recommendations: Diet: Continue current nutrition plan NUTRITION INTERVENTION/PLAN: Continue current care plan Will follow and adjust nutritional plan as medical condition requires. Please contact for change(s)in patient condition requiring earlier intervention. Magaly Braga MS, RDN Clinical [facility] Available via [place] Text [phone] * Care Plan - Fern Beasley RN - 07/11/2024 12:59 AM EST Clinical Goal(s): Pt will attend wrap-up this shift. (07/10/241999) Possible barriers to meeting goal(s)/advancing plan of care: poor insight Stability of the patient: Moderately stable - low risk of patient condition declining or worsening Summary regarding today's goal(s): Met: attended wrap-up Recommendations: will encourage group participation * ED Salesperson [employer] Note - Jess Johnson RN - 07/10/2024 1:02 PM EST TT sent to wound care nurse to assess pts wounds. 1320: Wound care nurse at bedside. Will dress wounds. * ED Salesperson [employer] Note - Jess Johnson RN - 07/10/2024 9:03 AM EST Assumed care of pt at this time. Pt is resting in ED stretcher with sitter at bedside. Denies needsat this time. * ED Salesperson [employer] Note - Monie Cross RN - 07/09/2024 1:26 PM EST 1315 pt changed into a large gown, pt belonging placed in a pt belonging bag, pt stated she has a friend who is going to bring her a suit case with clean clothes, pt has a sitter at bedside. Pt is not suicidal or homicidal, pt stated she just does not care what happens to her. * ED Salesperson [employer] Note - Wing Urias RN - 07/09/2024 12:18 PM EST Patient reports she doesn't think her medications are working, states she doesn't feel like she cares about anything. Patient concerned for worsening depression. Denies SI/HI. Patient states follows with solutions. Patient states goals of care inpatient stay on 7a. documented in this encounter Plan of Treatment Upcoming Encounters Date Type Department Care Team (Late st Contact Info) Description 07/23/2024 8:00 AM EST Telemedicine Marilee De Jesus [address] [place] [facility] [place] [address] Magdalena Lubin LCSW [address] [place] [id number] 07/25/2024 12:20 PM EST Office [address] [facility] [address] [place] [address] Melissa Cruz PA-C [address] [place] [address] 07/29/2024 11:00 AM EST Appointment Cardiac Studies, [facility] [address] [facility] [place] [address] 10/09/2024 12:10 PM EST Hospital Encounter OR [facility], Operating Room, [facility] - 4th Floor [address] [facility] [place] [address] Bigg Wetzel MD [address] [place] [address] 10/09/2024 12:10 PM EST - 10/09/2024 1:11 PM EST Surgery [address] [facility], Operating [facility], [facility] - 4th [facility] [address] Bigg Wetzel MD [address] [place] [address] COLONOSCOPY FLEXIBLE PROXIMAL DIAGNOSTIC 10/24/2024 10:00 AM EDT [facility] [address] Darnell Boggs DO [address] [facility] [place] [address] Scheduled Procedures Name Priority Associated Diagnoses Date/Ti [...] this encounter Medical Devices Implanted Type Area Track Maintainer Device Identifier Shelf Expiration Date Model / Serial / Lot Device Perm Cntrl [id number] - [id number] Implanted:Qty: 2 on 09/27/2015 by Sharda Ruiz, Corey Rucker MD at OR [facility] Uterus [employer] 05/03/2017 [id number] / [id number] documented as of this encounter Procedures Procedure Name Priority Date/Time Associated Diagnosis Comments BASIC METABOLIC PANEL Routine 07/15/2024 11:27 AM EST BASIC METABOLIC PANEL Routine 07/13/2024 8:08 AM EST CBC Routine 07/13/2024 8:07 AM EST TOXICOLOGY, URINESCREEN W/O CONFIRMATION STAT 07/09/2024 1:11 PM EST SARS-COV-2 (COVID-19), NAAT STAT 07/09/2024 1:00 PM EST DIFFERENTIAL, AUTOMATED STAT 07/09/2024 12:55 PM EST LIPID PANEL WITH DIRECT LDL IF TG IS HIGH Add-on 07/09/2024 12:55 PM EST 25-HYDROXY VITAMIN D Add-on 07/09/2024 12:55 PM EST HEMOGLOBIN A1C Add-on 07/09/2024 12:55 PM EST BETA-HCG, QUANTITATIVE STAT 12:55 PM EST COMPREHENSIVE METABOLIC PANEL STAT 07/09/2024 12:55 PM EST IRON SCREEN, INCLUDING TIBC Add-on 07/09/2024 12:55 PM EST CBC STAT 07/09/2024 12:55 PM EST ETHANOL, MEDICAL STAT 07/09/2024 12:5 5 PM EST CBC STAT 07/09/2024 12:55 PM EST TSH STAT 07/09/2024 12:55 PM EST ACETAMINOPHEN LEVEL STAT 07/09/2024 1 2:55 PM EST SALICYLATES LEVEL STAT 07/09/2024 12: 55 PM EST documented in this encounter Results * (ABNORMAL) BASIC METABOLIC PANEL (07/15/2024 11:27 AM EST) BUN 28(H) 6 - 20 mg/dL 07/15/2024 11:57 AM EST [facility] CREATININE 1.0 0.5 - 1.0 mg/dL 07/15/2024 11:57 AM EST [facility] EGFR 66 >=60 mL/min 07/15/2024 11:57 AM EST [facility] Comment:eGFR is calculated b ased on the CKD-EPI 2020 equation. SODIUM 138 135 - 146 mmol/L 07/15/2024 11:57 AM EST [facility] POTASSIUM 4.7 3.5 - 5.1 mmol/L 07/15/2024 11:57 AM EST [facility] CHLORIDE 100 98 - 107 mmol/L 07/15/2024 11:57 AM EST [facility] CO2 28 22 - 32 mmol/L 07/15/2024 11:57 AM EST [facility] ANION GAP 10 7 - 15 mmol/L 07/15/2024 11:57 AM EST [facility] GLUCOSE 122(H) 70 - 120 mg/dL 07/15/2024 11:57 AM EST LABORATORY [facility] CALCIUM 9.5 8.4 - 10.2 mg/dL 07/15/2024 11:57 AM EST [facility] Blood Venous blood specimen / Unknown Venipuncture / Unknown 07/15/2024 11:27 AM EST 07/15/2024 11:33 AM EST us Ayala Adrian PA-C LAB BLOOD ORDERABLES Final Result [facility]ATORY [facility] [address] [place] [id number] * (ABNORMAL) BASIC METABOLIC PANEL (07/13/2024 8:08 AM EST) BUN 24(H) 6 - 20 mg/dL 07/13/2024 8:47 AM EST LAB[facility]ATORY [facility] CREATININE 0.9 0.5 - 1.0 mg/dL 07/13/2024 8:47 AM EST LAB[facility]ATORY [facility] EGFR 80 >=60 mL/min 07/13/2024 8:47 AM EST LAB[facility]ORY [facility] Comment:eGFR is calculated b ased on the CKD-EPI 2020 equation. SODIUM 139 135 - 146 mmol/L 07/13/2024 8:47 AM EST LAB[facility]ATORY [facility] POTASSIUM 4.9 3.5 - 5.1 mmol/L 07/13/2024 8:47 AM EST LAB[facility] CHLORIDE 101 98 - 107 mmol/L 07/13/2024 8:47 AM EST [facility] CO2 26 22 - 32 mmol/L 07/13/2024 8:[address] [facility] ANION GAP 12 7 - 15 mmol/L 07/13/2024 8:[address] [facility] GLUCOSE 106 70 - 120 mg/dL 07/13/2024 8:[address] [facility] CALCIUM 9.6 8.4 - 10.2 mg/dL 07/13/2024 8:[address] [facility] Blood Venous blood specimen / Unknown Venipuncture / Unknown 07/13/2024 8:08 AM EST 07/13/2024 8:28 AM EST us Delores De Jesus MD LAB BLOOD ORDERABLES Final Resul t LABORATORY [address] [address] * (ABNORMAL) CBC (07/13/2024 8:07 AM EST) WBC 11.72(H) 4.00 - 10.80 K/uL 07/13/2024 8:[address] [facility] RBC 4.34 3.85 - 5.15 M/uL 07/13/2024 8:[address] [facility] HGB 11.5(L) 12.0 - 15.3 g/dL 07/13/2024 8:[address] [facility] HCT 36.5 36.0 - 45.2 % 07/13/2024 8:[address] [facility] MCV 84.1 81.5 - 97.5 fL 07/13/2024 8:[address] [facility] MCH 26.5 27.0 - 34.0 pg 07/13/2024 8:[address] [facility] MCHC 31.5 32.0 - 36.0 g/dL 07/13/2024 8:[address] [facility] RDW 15.0 11.5 - 15.5 % 07/13/2024 8:[address] [facility] PLT 313 140 - 400 K/uL 07/13/2024 8:[address] [facility] MPV 8.9 6.6 - 11.1 fL 07/13/2024 8:[address] [facility] nRBCs 0 <=0 /100 WBCs 07/13/2024 8:[address] [facility] Blood Venous blood specimen / Unknown Venipuncture / Unknown 07/13/2024 8:07 AM EST 07/13/2024 8:28 AM EST us Delores De Jesus MD LAB BLOOD ORDERABLES Final Resul t LABORATORY [address] [address] * (ABNORMAL) TOXICOLOGY, URINESCREEN W/O CONFIRMATION (07/09/2024 1:11 PM EST) Pathologist [facility] Amphetamines Screen, U Positive(A) Negative 07/09/2024 1:[address] [facility] Benzodiazepines Screen, U Negative Negative 07/09/2024 1:[address] [facility] Cannabinoids Screen, U Negative Negative 07/09/2024 1:38 PM EST LABORATORY [facility] Cocaine Metabolite Screen, U Negative Negative 07/09/2024 1:[address] [facility] Fentanyl Screen, U Negative Negative 2023 1:[address] [facility] Hydrocodone Screen, U Negative Negative 07/09/2024 1:[address] [facility] Methadone Metabolite Screen, U Negative Negative 07/09/2024 1:[address] [facility] Morphine/Codeine Screen, U Negative Negative 07/09/2024 1:[address] [facility] Oxycodone Screen, U Negative Negative 07/09/2024 1:[address] [facility] Urine Non-blood Collection / Unknown 07/09/2024 1:11 PM EST 07/09/2024 1:17 PM EST Narrative LABORATORY GL - 07/09/2024 1:38 PM EST Cutoff Concentrations: Drug Level Amphetamines 500 ng/mL Benzodiazepines 100 ng/mL Cannabinoids 50 ng/mL Cocaine Metabolite 150 ng/mL Fentanyl 1 ng/mL Hydrocodone / Hydromorphone 300 ng/mL Methadone Metabolite 100 ng/mL Morphine / Codeine 300 ng/mL Oxycodone / Oxymorphone 100 ng/mL Screening results are presumptive and can only be used for medical purposes. Confirmatory testing is available upon request. Avelina Wood PA-C LAB URINE ORDERABLES Fi nal Result Performing Organization Address [facility]/ZIP Co de Phone Number LABORATORY [address] [address] * SARS-COV-2 (COVID-19), NAAT (07/09/2024 1:00 PM EST) SARS-CoV-2 (COVID-19) Result Negative Negative 07/09/2024 4:[address] [facility] Comment: 2019 Novel Coronavirus not detected. This express test was developed and its performance characteristics determined by [facility]. It has not been cleared or approved by the U.S. Food and Drug Administration (FDA). FDA does not require this test to go thru premarket FDA review. This test is used for clinical purposes. It should not be regarded as investigational or for research. This laboratory is certified under the Clinical Laboratory Improvement Amendments (CLIA) as qualified to perform high complexity clinical laboratory testing. This test is a nucleic acid amplification test (NAAT), a reverse transcriptase polymerase chain reaction (RT-PCR) test, or a Centers for Disease Control- acceptable equivalent. The test is performed in a high complexity Clinical Laboratory Improvement Amendments-(CLIA) certified laboratory. The test is acceptable for SARS-CoV-2 diagnosis, surveillance, and travel within the [place] and to most countries. Please check with local testing authorities about requirements before travel. The validation of bronchial specimens, tracheal aspirates, and sputum for this assay was developed and performance characteristics determined by [facility]. The validation of alternate specimen types has not been cleared or approved by the U.S. Food and Drug Administration (FDA). It has been determined that such clearance is not necessary. Upper Respiratory Mid-turbinate nasal swab / Unknown Non-blood Collection / Unknown 07/09/2024 1:00 PM EST 07/09/2024 1:03 PM EST Avelina Wood PA-C LAB MICRO - GENERAL ORD ERABLES Final Result Performing Organization Address [facility]/ZIP Co de Phone Number LABORATORY [facility] [address] [place] [address] * (ABNORMAL) IRON SCREEN, INCLUDING TIBC (07/09/2024 12:55 PM EST) Pathologist [facility] Iron 21(L) 33 - 151 ug/dL 07/11/2024 11:34 PM EST LABORATORY [facility] Iron Binding Capacity 252 250 - 425 ug/dL 07/11/2024 11:34 PM EST LABORATORY [facility] Transferrin Saturation Percent 8(L) 15 - 55 % 07/11/2024 11:34 PM EST LABORATORY [facility] Blood Venous blood specimen / Unknown Venipuncture / Unknown 07/09/2024 12:55 PM EST 07/09/2024 12:59 PM EST us Delores De Jesus MD LAB BLOOD ORDERABLES Final Resul t Performing Organization Address [facility] de Phone Number LABORATORY [facility] [address] [place] [address] * 25-HYDROXY VITAMIN D (07/09/2024 12:55 PM EST) [facility] 25-Hydroxy Vitamin D 20 >19 ng/mL 07/10/2024 11:36 PM EST LABORATORY [facility] Blood Venous blood specimen / Unknown Venipuncture / Unknown 07/09/2024 12:55 PM EST 07/09/2024 12:59 PM EST Narrative LABORATORY [facility] - 07/10/2024 11:36 PM EST Deficient: <20 ng/mL Insufficient: 20-29 ng/mL Recommended/Optimum:30-50 ng/mL Vitamin D intoxication is rare. If suspicious of Vitamin D toxicity, evaluation of serum Calcium and PTH is recommended. us Delores De Jesus MD LAB BLOOD ORDERABLES Final Resul t Performing Organization Address [facility] Co de Phone Number LABORATORY [facility] [address] [place] [address] * (ABNORMAL) LIPID PANEL WITH DIRECT LDL IF TG IS HIGH (07/09/2024 12:55 PM EST) Pathologist [facility] Triglycerides 94 <=174 mg/dL 07/10/2024 10:45 PM EST LABORATORY [facility] Comment: Triglyceride Reference Ranges (mg/dL): <150 Acceptable 150-174 Borderline high 175-499 High >=500 Very high Cholesterol 154 <200 mg/dL 07/10/2024 10:45 PM EST LABORATORY [facility] Comment: Total Cholesterol Reference Ranges (mg/dL): <200 Desirable 200-239 Borderline high >=240 High HDL Cholesterol 48(L) >49 mg/dL 10:45 PM EST LABORATORY [facility] Comment: HDL Cholesterol Reference Ranges (mg/dL): >=60 High (Desirable) <50 Low (Undesirable) For Females <40 Low (Undesirable) For Males Non-HDL Cholesterol 106 <=159 mg/dL 07/10/2024 10:45 PM EST LABORATORY [facility] Comment: Non-HDL Cholesterol Reference Range (mg/dL): <100 Target level for high risk ASCVD patient <130 Optimal for general population 130-159 Near optimal for general population 160-189 Borderline High 190-219 High >=220 Very High LDL Cholesterol 87 <=129 mg/dL 07/10/2024 10:45 PM EST LABORATORY [facility] Comment: LDL Cholesterol Reference Ranges (mg/dL): <70 Target level for high risk ASCVD patient <100 Optimal for general population 100-129 Near optimal for general population 130-159 Borderline high 160-189 High >=190 Very high Blood Venous blood specimen / Unknown Venipuncture / Unknown 07/09/2024 12:55 PM EST 07/09/2024 12:59 PM EST us Delores De Jesus MD LAB BLOOD ORDERABLES Final Resul t LABORATORY [facility] [address] [place] [address] * HEMOGLOBIN A1C (07/09/2024 12:55 PM EST) Pathologist [facility] Hemoglobin A1C 4.8 4.0 - 5.6 % 07/11/2024 12:08 AM EST LABORATORY [facility] Comment:The use of HbA1c to monitor glycemic status is based on normal hemoglobin and HbA composition. This test should not be used in patients with abnormal hemoglobin that affects the half life of the red blood cell or the in vivo glycation rates. Estimated Average Glucose 91 <126 mg/dL 07/11/2024 12:08 AM EST LABORATORY [facility] Blood Venous blood specimen / Unknown Venipuncture / Unknown 07/09/2024 12:55 PM EST 07/09/2024 12:59 PM EST us Delores De Jesus MD LAB BLOOD ORDERABLES Final Resul t LABORATORY [facility] [address] [place] [address] * DIFFERENTIAL, AUTOMATED (07/09/2024 12:55 PM EST) WBC 7.68 4.00 - 10.80 K/uL 07/09/2024 1:04 PM EST LAB[facility]ATORY [facility] Neutrophils % 65.5 40.0 - 75.0 % 07/09/2024 1:04 PM EST LAB[facility]ATORY [facility] Lymphocytes % 28.6 18.0 - 42.0 % 07/09/2024 1:04 PM EST LAB[facility]ATORY [facility] Monocytes % 5.2 1.0 - 11.0 % 07/09/2024 1:04 PM EST LAB[facility]ATORY [facility] Eosinophils % 0.0 0.0 - 6.0 % 07/09/2024 1:04 PM EST LAB[facility]ATORY [facility] Basophils % 0.4 0.0 - 2.0 % 07/09/2024 1:04 PM EST LAB[facility]ATORY [facility] Immature Granulocytes % 0.3 0.0 - 2.0 % 07/09/2024 1:04 PM EST LAB[facility]ORY [facility] Absolute Neutrophils 5.03 1.80 - 7.70 K/uL 07/09/2024 1:04 PM EST LAB[facility]ATORY [facility] Absolute Lymphocytes 2.20 1.00 - 4.80 K/ul 07/09/2024 1:04 PM EST LAB[facility]ATORY [facility] Absolute Monocytes 0.40 0.00 - 1.10 K/uL 07/09/2024 1:04 PM EST LAB[facility]ATORY [facility] Absolute Eosinophils 0.00 0.00 - 0.70 K/uL 07/09/2024 1:04 PM EST LAB[facility]ATORY [facility] Absolute Basophils 0.03 0.00 - 0.20 K/uL 07/09/2024 1:04 PM EST LAB[facility]ATORY [facility] Absolute Immature Granulocytes 0.02 0.00 - 0.20 K/uL 07/09/2024 1:04 PM EST LABORATORY [facility] Blood Venous blood specimen / Unknown Venipuncture / Unknown 07/09/2024 12:55 PM EST 07/09/2024 12:59 PM EST us Avelina Wood PA-C LAB BLOOD ORDERABLES Fi nal Result LABORATORY [address] [address] * (ABNORMAL) CBC (07/09/2024 12:55 PM EST) WBC 7.68 4.00 - 10.80 K/uL 07/09/2024 1:[address] [facility] RBC 4.14 3.85 - 5.15 M/uL 07/09/2024 1:[address] [facility] HGB 10.8(L) 12.0 - 15.3 g/dL 07/09/2024 1:[address] [facility] HCT 35.6(L) 36.0 - 45.2 % 07/09/2024 1:[address] [facility] MCV 86.0 81.5 - 97.5 fL 07/09/2024 1:[address] [facility] MCH 26.1 27.0 - 34.0 pg 07/09/2024 1:[address] [facility] MCHC 30.3 32.0 - 36.0 g/dL 07/09/2024 1:[address] [facility] RDW 15.5 11.5 - 15.5 % 07/09/2024 1:04 PM EST LABORATORY GL PLT 273 140 - 400 K/uL 07/09/2024 1:04 PM EST LABORATORY GL MPV 8.9 6.6 - 11.1 fL 07/09/2024 1:04 PM EST LABORATORY GL nRBCs 0 <=0 /100 WBCs 07/09/2024 1:[address] [facility] Blood Venous blood specimen / Unknown Venipuncture / Unknown 07/09/2024 12:55 PM EST 07/09/2024 12:59 PM EST Avelina Wood PA-C LAB BLOOD ORDERABLES Fi nal Result Performing Organization Address City/[facility]/ZIP Co de Phone Number LABORATORY [address] [address] * TSH (07/09/2024 12:55 PM EST) TSH 1.83 0.27 - 4.20 uIU/mL 07/09/2024 1:[address] [facility] Blood Venous blood specimen / Unknown Venipuncture / Unknown 07/09/2024 12:55 PM EST 07/09/2024 12:59 PM EST Avelina Wood PA-C LAB BLOOD ORDERABLES Fi nal Result Performing Organization Address [facility] de Phone Number LABORATORY [address] [phone] * (ABNORMAL) SALICYLATES LEVEL (07/09/2024 12:55 PM EST) Salicylates Level <1.0(L) 5.0 - 30.0 mg/dL 07/09/2024 1:[address] [facility] Blood Venous blood specimen / Unknown Venipuncture / Unknown 07/09/2024 12:55 PM EST 07/09/2024 12:59 PM EST Avelina Wood PA-C LAB BLOOD ORDERABLES Fi nal Result Performing Organization Address City/[facility]/ZIP Co de Phone Number LABORATORY [address] [phone] * (ABNORMAL) ACETAMINOPHEN LEVEL (07/09/2024 12:55 PM EST) Acetaminophen Level <5.0(L) 10.0 - 30.0 ug/mL 07/09/2024 1:[address] [facility] Blood Venous blood specimen / Unknown Venipuncture / Unknown 07/09/2024 12:55 PM EST 07/09/2024 12:59 PM EST Avelina Wood PA-C LAB BLOOD ORDERABLES Fi nal Result Performing Organization Address City/[facility]/ZIP Co de Phone Number LABORATORY [address] [address] * BETA-HCG, QUANTITATIVE (07/09/2024 12:55 PM EST) Pathologist [facility] Beta-HCG, Quantitative <0.3 <=1.0 mIU/mL 07/09/2024 1:[address] [facility] Blood Venous blood specimen / Unknown Venipuncture / Unknown 07/09/2024 12:55 PM EST 07/09/2024 12:59 PM EST Narrative LABORATORY [facility] - 07/09/2024 1:34 PM EST hCG can serve as a screening assay for . However, early may not give a positive hCG test result. In addition, some non- women may have a hCG result slightly higher than the reference limit. Careful interpretation of the hCG with clinical history is required to determine whether the patient may be . Postmenopausal women have higher hCG than premenopausal women. The reference interval for non- premenopausal women is <= 1 mIU/mL, and for postmenopausal women is <= 7 mIU/mL. us Avelina Wood PA-C LAB BLOOD ORDERABLES Fi nal Result Performing Organization Address [facility]/ZIP Co de Phone Number LABORATORY [address] [address] * ETHANOL, MEDICAL (07/09/2024 12:55 PM EST) [facility] ETHANOL, MEDICAL Negative Negative 07/09/2024 1:[address] [facility] Blood Venous blood specimen / Unknown Venipuncture / Unknown 07/09/2024 12:55 PM EST 07/09/2024 12:59 PM EST Avelina Wood PA-C LAB BLOOD ORDERABLES Fi nal Result Performing Organization Address City/[facility]/ZIP Co de Phone Number LABORATORY [address] [address] * (ABNORMAL) COMPREHENSIVE METABOLIC PANEL (07/09/2024 12:55 PM EST) BUN 35(H) 6 - 20 mg/dL 07/09/2024 1:19 PM EST LABORATORY [facility] CREATININE 0.9 0.5 - 1.0 mg/dL 07/09/2024 1:19 PM EST LABORATORY [facility] EGFR 82 >=60 mL/min 07/09/2024 1:19 PM EST LABORATORY [facility] Comment:eGFR is calculated b ased on the CKD-EPI 2020 equation. SODIUM 142 135 - 146 mmol/L 07/09/2024 1:19 PM EST LABORATORY [facility] POTASSIUM 4.3 3.5 - 5.1 mmol/L 07/09/2024 1:19 PM EST LABORATORY [facility] CHLORIDE 105 98 - 107 mmol/L 07/09/2024 1:19 PM EST LABORATORY [facility] CO2 26 22 - 32 mmol/L 07/09/2024 1:19 PM EST LABORATORY [facility] ANION GAP 11 7 - 15 mmol/L 07/09/2024 1:19 PM EST LABORATORY [facility] GLUCOSE 102 70 - 120 mg/dL 07/09/2024 1:19 PM EST LABORATORY [facility] Albumin 3.7(L) 3.8 - 5.0 g/dL 07/09/2024 1:19 PM EST LABORATORY [facility] AST 16 10 - 35 U/L 07/09/2024 1:19 PM EST LABORATORY [facility] Alkaline Phosphatase 95 35 - 130 U/L 07/09/2024 1:19 PM EST LABORATORY GL Bilirubin, Total 0.7 <=1.2 mg/dL 07/09/2024 1:19 PM EST LABORATORY [facility] CALCIUM 9.2 8.4 - 10.2 mg/dL 07/09/2024 1:19 PM EST LABORATORY [facility] Protein 7.3 6.0 - 8.3 g/dL 07/09/2024 1:19 PM EST LABORATORY [facility] ALT 14 10 - 35 U/L 07/09/2024 1:19 PM EST LABORATORY [facility] Blood Venous blood specimen / Unknown Venipuncture / Unknown 07/09/2024 12:55 PM EST 07/09/2024 12:59 PM EST us Avelina Wood PA-C LAB BLOOD ORDERABLES Fi nal Result LABORATORY [place] [phone] documented in this encounter Visit Diagnoses Diagnosis Bipolar disorder, current episode depressed, moderate (HCC)- Primary Bipolar I disorder, most recent episode (or current) depressed, moderate Mood disorder (HCC) Unspecified episodic mood disorder Passive suicidal ideations Suicidal ideation Depression, unspecified depression type Neuropathy Mononeuritis of unspecified site Lymphedema Other lymphedema PTSD (post-traumatic stress disorder) Posttraumatic stress disorder LYNSEY (generalized anxiety disorder) Generalized anxiety disorder Screening for colon cancer Special screening for malignant neoplasms, colon documented in this encounter Administered Medications Inactive Administered Medications - up to 3 most recent administrations Medication Order MAR Action Action Date Dose Rate Site Acetaminophen (Tylenol) tab 325 mg 325 mg, Oral, Q4H PRN Pain, Mild, Starting on Sun07/10/24 at 1703, Until Sun07/21/24 at 1921, Maximum of 4 grams (4000 mg) per day. Acetaminophen (Tylenol) tab 650 mg 650 mg, Oral, ONCE, On Sun07/09/24 at 1430, For 1 dose, Maximum of 4 grams (4000 mg) per day. Given 07/09/2024 2:12 PM EST 650 mg Acetaminophen (Tylenol) tab 650 mg 650 mg, Oral, Q6H PRN Pain, Moderate, Fever >38C(100.5F), Starting on Sun07/10/24 at 1703, Until Sun07/21/24 at 1921, Maximum of 4 grams (4000 mg) per day. Acetaminophen (Tylenol) tab 975 mg 975 mg, Oral, ONCE, On Deirdre 07/10/24 at 0200, For 1 dose, Maximum of 4 grams (4000 mg) per day. Given 07/10/2024 1:30 AM EST 975 mg Acetaminophen (Tylenol) tab 975 mg 975 mg, Oral, ONCE, On Deirdre 07/10/24 at 1000, For 1 dose, Maximum of 4 grams (4000 mg) per day. Given 07/10/2024 9:40 AM EST 975 mg Acetaminophen (Tylenol) tab 975 mg 975 mg, Oral, Q6H PRN Pain, Severe, Starting on Sun07/10/24 at 1703, Until Sun07/21/24 at 1921, Maximum of 4 grams (4000 mg) per day. Given 07/20/2024 8:20 PM EST 975 mg Given 07/20/2024 8:30 AM EST 975 mg Given 07/19/2024 8:15 PM EST 975 mg ARIPiprazole (Abilify) tab 15 mg 15 mg, Oral, HS, First dose on Sun07/09/24 at 2200, Until Discontinued Given 07/20/2024 8:19 PM EST 15 mg Given 07/19/2024 8:14 PM EST 15 mg Given 07/18/2024 8:49 PM EST 15 mg buPROPion (Wellbutrin) tab 75 mg 75 mg, Oral, Daily(AM), First dose on Sun07/11/24 at 0945, Until Discontinued Given 07/11/2024 11:22 AM EST 75 mg buPROPion extended release (SR) (Wellbutrin SR) tab 150 mg 150 mg, Oral, Daily(AM), First dose on Sun07/10/24 at 0900, Until Discontinued, [Therapeutic Interchange from Wellbutrin XL] Given 07/10/2024 8:33 AM EST 150 mg busPIRone (Buspar) tab 10 mg 10 mg, Oral, BID (.AM/PM), First dose on Sun07/09/24 at 2100, Until Discontinued Given 07/21/2024 8:57 AM EST 10 mg Given 07/20/2024 8:19 PM EST 10 mg Given 07/20/2024 8:30 AM EST 10 mg Cetirizine (ZyrTEC) tab 10 mg 10 mg, Oral, Daily(AM), First dose on Sun07/10/24 at 0900, Until Discontinued Given 07/21/2024 8:58 AM EST 10 mg Given 07/20/2024 8:31 AM EST 10 mg Given 07/19/2024 8:47 AM EST 10 mg DULoxetine (Cymbalta) DR cap 20 mg 20 mg, Oral, Daily(AM), First dose on Sun07/11/24 at 0945, Until Discontinued Given 07/12/2024 10:02 AM EST 20 mg Given 07/11/2024 9:52 AM EST 20 mg DULoxetine (Cymbalta) DR cap 30 mg 30 mg, Oral, Daily(AM), First dose (after last modification) on Sun07/13/24 at 0900, Until Discontinued Given 07/19/2024 8:47 AM EST 30 mg Given 07/18/2024 9:07 AM EST 30 mg Given 07/17/2024 9:09 AM EST 30 mg DULoxetine (Cymbalta) DR cap 60 mg 60 mg, Oral, Daily(AM), First dose (after last modification) on 07/20/24 at 0900, Until Discontinued Given 07/21/2024 8:57 AM EST 60 mg Given 07/20/2024 8:30 AM EST 60 mg Ferrous Sulfate (Feosol) tab 325 mg 325 mg, Oral, DAILY NOON, First dose on 07/12/24 at 1200, Until Discontinued, This med should NOT be Crushed or Chewed Given 07/21/2024 8:58 AM EST 325 mg Given 07/20/2024 12:16 PM EST 325 mg Given 07/19/2024 12:32 PM EST 325 mg Haloperidol (Haldol) tab 5 mg 5 mg, Oral, Q6H PRN Other, Psychosis, Starting on Sun07/10/24 at 1703, Until Sun07/21/24 at 1921 Haloperidol Lactate (Haldol) 5 MG/ML inj 5 mg 5 mg, Intramuscular, Q6H PRN Other, Psychosis, unable to take PO, Starting on Sun07/10/24 at 1703, Until Sun07/21/24 at 1921 home medication stored in pharmacy Daily(AM), First dose on Sun07/11/24 at 0900, Until Discontinued, Routine, when the patient is ready for discharge contact pharmacy house antacid (Mi-Acid II) oral susp 15 mL 15 mL, Oral, Q4H PRN Indigestion, Nausea, Starting on Sun07/10/24 at 1703, Until Sun07/21/24 at 1921, [place] hydrOXYzine HCl tab 50 mg 50 mg, Oral, Q6H PRN Anxiety, Starting on Sun07/10/24 at 1703, Until Sun07/21/24 at 1921 lamoTRIgine (LaMICtal) tab 100 mg 100 mg, Oral, BID (.AM/PM), First dose on Sun07/09/24 at 2100, Until Discontinued Given 07/21/2024 8:57 AM EST 100 mg Given 07/20/2024 8:19 PM EST 100 mg Given 07/20/2024 8:31 AM EST 100 mg LORazepam (Ativan) inj 2 mg 2 mg, Intramuscular, Q6H PRN If unable to take by mouth for agitation, Starting on Sun07/14/24 at 1513, Until Sun07/21/24 at 1921, MUST FURTHER DILUTE FOR IV PUSH WITH EQUAL VOLUME OF NSS LORazepam (Ativan) tab 1 mg 1 mg, Oral, Q6H PRN Agitation, Starting on Sun07/14/24 at 1513, Until Sun07/21/24 at 1921 milk of magnesia (Mom) oral susp 30 mL 30 mL, Oral, DAILY PRN Constipation, Starting on Sun07/10/24 at 1703, Until Sun07/21/24 at 1921 montelukast (Singulair) tab 10 mg 10 mg, Oral, HS, First dose on Sun07/09/24 at 2200, Until Discontinued Given 07/20/2024 8:19 PM EST 10 mg Given 07/19/2024 8:14 PM EST 10 mg Given 07/18/2024 8:49 PM EST 10 mg omeprazole (PriLOSEC) cap 20 mg 20 mg, Oral, Daily(AM), First dose on Sun07/10/24 at 0900, Until Discontinued, This med should NOT be Crushed or Chewed Given 07/21/2024 8:58 AM EST 20 mg Given 07/20/2024 8:30 AM EST 20 mg Given 07/19/2024 8:47 AM EST 20 mg potassium chloride ER tab 10 mEq 10 mEq, Oral, Daily(AM), First dose on Sun07/10/24 at 0900, Until Discontinued Given 07/21/2024 8:57 AM EST 10 mEq Given 07/20/2024 8:31 AM EST 10 mEq Given 07/19/2024 8:48 AM EST 10 mEq Pregabalin (Lyrica) cap 150 mg 150 mg, Oral, QID(AM/NOON/PM/HS), First dose on Sun07/09/24 at 1915, Until Discontinued Given 07/17/2024 6:48 AM EST 1 50 mg Given 07/16/2024 8:42 PM EST 150 mg Given 07/16/2024 3:14 PM EST 150 mg Pregabalin (Lyrica) cap 150 mg 150 mg, Oral, TID(AM/NOON/HS), First dose (after last modification) on Sun07/17/24 at 1600, Until Discontinued Given 07/21/2024 8:58 AM EST 150 mg Given 07/20/2024 8:20 PM EST 150 mg Given 07/20/2024 4:35 PM EST 150 mg documented in this encounter Active and Recently Administered Medications Times are shown in EST. Scheduled Medication Order 07/19/2024 07/20/2024 07/21/2024 ARIPiprazole (Abilify) tab 15 mg 15 mg, Oral, HS, First dose on Sun07/09/24 at 2200, Until Discontinued 2013 (Given - Provider: Madeline Monaco RN) 2018 (Given - Provider: Madeline Monaco RN) busPIRone (Buspar) tab 10 mg 10 mg, Oral, BID (.AM/PM), First dose on Sun07/09/24 at 2100, Until Discontinued 0847 (Given - Provider: Fern Beasley RN)2014 (Given - Provider: Madeline Monaco RN) 0830 (Given - Provider: La Nena Schulz, RN)2018 (Given - Provider: Madeline Monaco, RN) 0857 (Given - Provider: Rip Angulo, RN) Cetirizine (ZyrTEC) tab 10 mg 10 mg, Oral, Daily(AM), First dose on Sun07/10/24 at 0900, Until Discontinued 0847 (Given - Provider: Fern Beasley RN) 0831 (Given - Provider: La Nena Schulz, RN) 0858 (Given - Provider: iRp Angulo, RN) DULoxetine (Cymbalta) DR cap 30 mg (CANCELED) 30 mg, Oral, Daily(AM), First dose (after last modification) on Sun07/13/24 at 0900, Until Discontinued 0847 (Given - Provider: Fern Beasley RN) DULoxetine (Cymbalta) DR cap 60 mg 60 mg, Oral, Daily(AM), First dose (after last modification) on Sun07/20/24 at 0900, Until Discontinued 0830 (Given - Provider: La Nena Schulz RN) 0857 (Given - Provider: Rip Angulo RN) Ferrous Sulfate (Feosol) tab 325 mg 325 mg, Oral, DAILY NOON, First dose on Sun07/12/24 at 1200, Until Discontinued, This med should NOT be Crushed or Chewed 1232 (Given - Provider: Fern Beasley RN) 1216 (Given - Provider: Fern Beasley RN) 0858 (Given - Provider: Rip Angulo, RN) home medication stored in pharmacy Daily(AM), First dose on Sun07/11/24 at 0900, Until Discontinued, Routine, when the patient is ready for discharge contact pharmacy 0900 (Order Check Addressed - Provider: Fern Beasley RN) 0900 (Order Check Addressed - Provider: Fern Beasley RN) 0900 (Order Check Addressed - Provider: Rip Angulo RN) lamoTRIgine (LaMICtal) tab 100 mg 100 mg, Oral, BID (.AM/PM), First dose on Sun07/09/24 at 2100, Until Discontinued 0847 (Given - Provider: Fern Beasley RN)2014 (Given - Provider: Madeline Monaco RN) 0831 (Given - Provider: La Nena Schulz, ROSSANA)2018 (Given - Provider: Madeline Monaco, RN) 0857 (Given - Provider: Rip Angulo, ROSSANA) montelukast (Singulair) tab 10 mg 10 mg, Oral, HS, First dose on Sun07/09/24 at 2200, Until Discontinued 2013 (Given - Provider: Madeline Monaco, RN) 2018 (Given - Provider: Madeline Monaco, RN) omeprazole (PriLOSEC) cap 20 mg 20 mg, Oral, Daily(AM), First dose on Sun07/10/24 at 0900, Until Discontinued, This med should NOT be Crushed or Chewed 0847 (Given - Provider: Fern Beasley RN) 0830 (Given - Provider: La Nena Schulz RN) 0858 (Given - Provider: Rip Angulo RN) potassium chloride ER tab 10 mEq 10 mEq, Oral, Daily(AM), First dose on Sun07/10/24 at 0900, Until Discontinued 0848 (Given - Provider: Fern Beasley, RN) 0831 (Given - Provider: La Nena Schulz RN) 0857 (Given - Provider: Rip Angulo RN) Pregabalin (Lyrica) cap 150 mg 150 mg, Oral, TID(AM/NOON/HS), First dose (after last modification) on Sun07/17/24 at 1600, Until Discontinued 0847 (Given - Provider: Fern Beasley RN)1724 (Given - Provider: Fern Beasley, RN)2013 (Given - Provider: Madeline Monaco, RN) 08 (Given - Provider: La Nena Schulz RN)163 (Given - Provider: Fern Beasley, ROSSANA)2019 (Given - Provider: Madeline Monaco, RN) 0858 (Given - Provider: Rip Angulo RN) PRN Medication Order 07/19/2024 07/20/2024 07/21/2024 Acetaminophen (Tylenol) tab 325 mg(Linked Group 1) 325 mg, Oral, Q4H PRN Pain, Mild, Starting on Sun07/10/24 at 1703, Until Sun07/21/24 at 192, Maximum of 4 grams (4000 mg) per day. 0847 (See Alternative - Provider: Fern Beasley RN)2014 (See Alternative - Provider: Madeline Monaco RN) 08 (See Alternative - Provider: La Nena Schulz RN)2019 (See Alternative - Provider: Madeline Monaco, RN) Acetaminophen (Tylenol) tab 650 mg(Linked Group 1) 650 mg, Oral, Q6H PRN Pain, Moderate, Fever >38C(100.5F), Starting on Deirdre 07/10/24 at 1703, Until Sun07/21/24 at 192, Maximum of 4 grams (4000 mg) per day. 0847 (See Alternative - Provider: Fern Beasley RN)2014 (See Alternative - Provider: Madeline Monaco RN) 0830 (See Alternative - Provider: La Nena Schulz RN)2019 (See Alternative - Provider: Madeline Monaco RN) Acetaminophen (Tylenol) tab 975 mg(Linked Group 1) 975 mg, Oral, Q6H PRN Pain, Severe, Starting on Sun07/10/24 at 1703, Until Sun07/21/24 at 192, Maximum of 4 grams (4000 mg) per day. 0847 (Given - Provider: Fern Beasley RN)2014 (Given - Provider: Madeline Monaco RN) 08 (Given - Provider: La Nena Schulz RN)2019 (Given - Provider: Madeline Monaco RN) Haloperidol (Haldol) tab 5 mg(Linked Group 2) 5 mg, Oral, Q6H PRN Other, Psychosis, Starting on Sun07/10/24 at 1703, Until Sun07/21/24 at 192 Haloperidol Lactate (Haldol) 5 MG/ML inj 5 mg(Linked Group 2) 5 mg, Intramuscular, Q6H PRN Other, Psychosis, unable to take PO, Starting on Sun07/10/24 at 1703, Until Sun07/21/24 at 192 house antacid (Mi-Acid II) oral susp 15 mL 15 mL, Oral, Q4H PRN Indigestion, Nausea, Starting on Sun07/10/24 at 1703, Until Sun07/21/24 at 192, SHAKE WELL hydrOXYzine HCl tab 50 mg 50 mg, Oral, Q6H PRN Anxiety, Starting on Sun07/10/24 at 1703, Until Sun07/21/24 at 192 LORazepam (Ativan) inj 2 mg(Linked Group 3) 2 mg, Intramuscular, Q6H PRN If unable to take by mouth for agitation, Starting on Sun07/14/24 at 1513, Until Sun07/21/24 at 192, MUST FURTHER DILUTE FOR IV PUSH WITH EQUAL VOLUME OF NSS LORazepam (Ativan) tab 1 mg(Linked Group 3) 1 mg, Oral, Q6H PRN Agitation, Starting on Sun07/14/24 at 1513, Until Sun07/21/24 at 192 milk of magnesia (Mom) oral susp 30 mL 30 mL, Oral, DAILY PRN Constipation, Starting on Sun07/10/24 at 1703, Until Sun07/21/24 at 192 traZODone (Desyrel) tab 50 mg 50 mg, Oral, QHS PRN MRX1 Sleep, Starting on Sun07/09/24 at 1838, Until Sun07/21/24 at 1920 Linked Groups Order Group 1: Acetaminophen (Tylenol) tab 325 mgJump to med 325 mg, Oral, Q4H PRN Pain, Mild, Starting on Sun07/10/24 at 1703, Until Sun07/21/24 at 192, Maximum of 4 grams (4000 mg) per day. Or Acetaminophen (Tylenol) tab 650 mgJump to med 650 mg, Oral, Q6H PRN Pain, Moderate, Fever >38C(100.5F), Starting on Sun07/10/24 at 1703, Until Sun07/21/24 at 1920, Maximum of 4 grams (4000 mg) per day. Or Acetaminophen (Tylenol) tab 975 mgJump to med 975 mg, Oral, Q6H PRN Pain, Severe, Starting on Sun07/10/24 at 1703, Until Sun07/21/24 at 1920, Maximum of 4 grams (4000 mg) per day. Group 2: Haloperidol (Haldol) tab 5 mgJump to med 5 mg, Oral, Q6H PRN Other, Psychosis, Starting on Sun07/10/24 at 1703, Until Sun07/21/24 at 192 Or Haloperidol Lactate (Haldol) 5 MG/ML inj 5 mgJump to med 5 mg, Intramuscular, Q6H PRN Other, Psychosis, unable to take PO, Starting on Sun07/10/24 at 1703, Until Sun07/21/24 at 192 Group 3: LORazepam (Ativan) tab 1 mgJump to med 1 mg, Oral, Q6H PRN Agitation, Starting on Sun07/14/24 at 1513, Until Sun07/21/24 at 192 Or LORazepam (Ativan) inj 2 mgJump to med 2 mg, Intramuscular, Q6H PRN If unable to take by mouth for agitation, Starting on Sun07/14/24 at 1513, Until Sun07/21/24 at 192, MUST FURTHER DILUTE FOR IV PUSH WITH EQUAL VOLUME OF NSS documented in this encounter Additional Health Concerns [...] Power of Attor benoit? No Care Teams Hog Raiser Relationship Specialty Start Date End Date Melissa Cruz PA-C [address] [facility] [address] [place] [address] PCP - General Physician Field Service Supervisor 06/02/21 documented as of this encounter
--- OUTSIDE RECORDS SUMMARY | 2024-08-09 23:49 | External Medical Summary | Summary of Care ---
Author Name Unknown Organization [facility] Address [address] [place] [address] Phone [phone] Care Team Providers Care Tax Processor Name Role Phone Anthony Melissa Downing PA-C Primary Care Provider [phone]- [phone] Reason for Visit * Reason Onset Date Comments Appointment 06/24/2024 Encounter Details Date Type Department Care Team ([facility] st Contact Info) Description 06/24/2024 Telephone Wound Care, [address] [address] Services, Scheduling [address] [place] [address] Appointment Allergies Active Allergy Reactions Criticality Noted Date Comments Aspirin 01/27/2014 Increased bleeding documented as of this encounter (statuses as of 06/25/2024) Medications traZODone (DESYREL) 50 MG Tablet Take [...] DAY 90 Tablet 1 4 Active Nystatin 480785 UNIT/GM External Powder (Nystop) Apply topically to [...] at bedtime. 30 Tablet 11 4 Active documented as of this encounter (statuses as of 06/25/2024) Active Problems Problem Noted Date Diagnosed Date [...] as of this encounter (statuses as of 06/25/2024) Resolved Problems Problem Noted Date Diagnosed Date [...] as of this encounter (statuses as of 06/25/2024) Immunizations Name Administration Dates Next Due Pneumococcal Conjugate Vacci ne, 20-valent ([id number]) 12/04/2022 Pneumococcal Polysaccharide PPV23 (Pneumovax) 05/06/2011 Seasonal [...] Telephone Encounter - Kalyn Rivera OSA - 06/25/2024 8:08 AM EST I spoke with the patient and stressed the importance of coming for a wound nurse visit on 06/30/24.The appointment is scheduled for 11 am Sunday. She will call back if she cannot arrange transportation. * Telephone Encounter - Megha López LPN - 06/24/2024 5:07 PM EST Please call her back to see if there is any way for her to come on Sunday -- related to the schedule as well as the agreement made with her doctor. She really should be seen if at all possible on Sunday. --Thank You * Telephone Encounter - Kalyn Rivera OSA - 06/24/2024 3:04 PM EST I spoke with the patient and she cannot come for a nurse visit on 06/30/24. She is requesting to beseen on 07/01/24, but there are no openings. She is already scheduled 07/02/24 and 07/04/24. Pleaseadvise. * Telephone Encounter - Leeroy Rondon OSA - 06/24/2024 2:25 PM EST Pt called to see if she could get the appt on 06-30 for wound care rescheduled for 07-01 instead please documented in this encounter Plan of Treatment Upcoming Encounters Date Type Department Care Team (Latest Contact Info) Description 06/25/2024 10:00 AM EST Nurse Only Wound Care, [address], [place] [address] [facility], Nurse Wound Care [address] [place] [address] 06/27/2024 10:30 AM EST Nurse Only Wound Care, [address], [place] [address] [facility], Nurse Wound Care [address] [place], [place] [address] [address] 06/30/2024 11:00 AM EST Nurse Only Wound Care, [address], [place] [address] [facility], Nurse Wound Care [address] [place] [address], [place] [address] 07/02/2024 10:20 AM EST Nurse Only Wound Care, [address], [place] [address] [facility], Nurse Wound Care [address] [place], [place] [address] [address] 07/04/2024 11:30 AM EST Nurse Only Wound Care, [address], [place] [address] [facility], Nurse Wound Care [address] [place] [address] 07/07/2024 1:00 PM EST Nurse Only Wound Care, [address] [place] [address] [facility], Nurse Wound Care [address] [place] [address] 07/09/2024 11:00 AM EST Nurse Only Wound Care, [address] [place] [address] [facility], Nurse Wound Care [address] [place] [address] 07/11/2024 11:00 AM EST Nurse Only Wound Care, [address] [place] [address] [facility], Nurse Wound Care [address] [place] [address] 07/14/2024 10:00 AM EST NeuroDiagnostic Study Neurophysiology, [address] [place] [address] Ramiro [place], [address] [facility] [place] [address] 07/14/2024 11:20 AM EST Office Visit Wound Care, [address] [address] Yuriy Hilario MD 27 [facility] [place] [address] 07/29/2024 11:00 AM EST Appointment Cardiac Studies, [address] [place] [address] 10/09/2024 11:30 AM EST Hospital Encounter [facility], Operating Room, [facility] - 4th Floor [address] [place] [address] [place] [address] Bigg Wetzel MD [address] [place] [address] 10/09/2024 11:30 AM EST - 10/09/2024 12:31 PM EST Surgery [facility], Operating Room, [facility] - 4th Floor [address] [address] Bigg Wetzel MD [address] [place] [address] COLONOSCOPY FLEXIBLE PROXIMAL DIAGNOSTIC 10/24/2024 10:00 AM EDT Office Visit Cardiology, [place] [address] [place] [address] Darnell Boggs DO [address] [place] [address] Scheduled Procedures Name Priority Associated Diagnoses Date/Ti [...] 01/20/2015 Depression Monitoring 03/10/2025 03/10/2024 Diabetes Screening 05/30/2027 05/30/2024, 0 03/11/2024, 10/19/2023, Additional history exists Lipid Panel 05/24/2028 05/24/2023, [...] this encounter Medical Devices Implanted Type Area Health Manager Device Identifier Shelf Expiration Date Model / Serial / Lot Device Perm Cntrl [id number] - [id number] Implanted:Qty: 2 on 09/27/2015 by Sharda Ruiz, Corey Rucker MD at OR [facility] Uterus [employer] 05/03/2017 [id number] / / [id number] documented as of this encounter Additional Health [...] Power of Attor benoit? No Care Teams Tax Processor Relationship Specialty Start Date End Date Melissa Cruz PA-C [address] [facility] [address] [place] [address] PCP - General Physician Esthetician Spa 06/02/21 documented as of this encounter
--- OUTSIDE RECORDS SUMMARY | 2024-08-09 23:49 | External Medical Summary ---
Author Name Unknown Address Unknown Organization K01:[facility] [place] [facility] [address] [facility] [address] Laboratory Report Ordering Provider Test Date Status BAUDILIO PRIDE 07/09/2024 12:55:15 Final Deficient: <20 ng/mL
Ins ufficient: 20-29 ng/mL
Recommended/Optimum:30-50 ng/mL

Vitamin D intoxication is rare. If suspicious of Vitamin D toxicity, evaluation of serum Calcium and PTH is recommended. Observation Date Value Abnormality Reference (Units ) Status 25-OH Vitamin D total 07/09/2024 12:55:15 20 >19 (ng/mL) Final Performing Location [facility] - [address] [place] [place] [address]
--- OUTSIDE RECORDS SUMMARY | 2024-08-09 23:49 | External Medical Summary | Summary of Care ---
Author Name Unknown Organization [facility] Address [address] [place] [address] Phone [phone] Care Team Providers Care Heating Operators Engineer Name Role Phone Anthony Melissa Downing PA-C Primary Care Provider [phone]- [phone] Reason for Visit * Reason Onset Date Comments Appointment 06/24/2024 Encounter Details Date Type Department Care Team (Late st Contact Info) Description 06/24/2024 Telephone Wound Care, [address] [address] Services, Scheduling [address] [place] [address] Appointment Allergies Active Allergy Reactions Criticality Noted Date Comments Aspirin 01/27/2014 Increased bleeding documented as of this encounter (statuses as of 06/24/2024) Medications traZODone (DESYREL) 50 MG Tablet Take [...] DAY 90 Tablet 1 4 Active Nystatin 647736 UNIT/GM External Powder (Nystop) Apply topically to [...] as of this encounter (statuses as of 06/24/2024) Active Problems Problem Noted Date Diagnosed Date [...] as of this encounter (statuses as of 06/24/2024) Resolved Problems Problem Noted Date Diagnosed Date [...] as of this encounter (statuses as of 06/24/2024) Immunizations Name Administration Dates Next Due Pneumococcal Conjugate Vacci ne, 20-valent ([id number]) 12/04/2022 Pneumococcal Polysaccharide PPV23 (Pneumovax) 05/06/2011 Seasonal [...] encounter Miscellaneous Notes * Telephone Encounter - Megha López LPN [...] 10:00 AM EST Nurse Only Wound Care, [address], [place] [address] [facility], Nurse Wound Care [address] [place] [address], [place] [address] 06/27/2024 10:30 AM EST Nurse Only Wound Care, [address], [place] [address] [facility], Nurse Wound Care [address] [place] [address], [place] [address] 07/02/2024 10:20 AM EST Nurse Only Wound Care, [address], [place] [address] [facility], Nurse Wound Care [address] [place] [address], [place] [address] 07/04/2024 11:30 AM EST Nurse Only Wound Care, [address] [address] [facility], Nurse Wound Care [address] [place] [address], [place] [address] 07/07/2024 1:00 PM EST Nurse Only Wound Care, [address], [place] [address] [facility], Nurse Wound Care [address] [place] [address], [place] [address] 07/09/2024 11:00 AM EST Nurse Only Wound Care, [address] [address] [facility], Nurse Wound Care [address] [place] [address], [place] [address] 07/11/2024 11:00 AM EST Nurse Only Wound Care, [address] [address] [facility], Nurse Wound Care [address] [place] [address] 07/14/2024 10:00 AM EST NeuroDiagnostic Study Neurophysiology, [address] [address] [place], DO [address] [facility] [address] 07/14/2024 11:20 AM EST Office Visit Wound Care, [address] [address] Yuriy Hilario MD 27 [place] [address] 07/29/2024 11:00 AM EST Appointment Cardiac Studies, [address] [place] [address] 10/09/2024 11:30 AM EST Hospital Encounter OR [facility], Operating Room, [facility] - 4th Floor [address] [place], [place] [address] [address] Bigg Wetzel MD [address] [place] [address] 10/09/2024 11:30 AM EST - 10/09/2024 12:31 PM EST Surgery OR [facility], Operating Room, [facility] - 4th Floor [address] [place], [place] [address] [address] Bigg Wetzel MD [address] [place] [address] COLONOSCOPY FLEXIBLE PROXIMAL DIAGNOSTIC 10/24/2024 10:00 AM EDT Office Visit Cardiology, [address] [place] [address] Darnell Boggs, DO [address] [place] [address] Scheduled Procedures Name Priority Associated Diagnoses Date/Ti [...] this encounter Medical Devices Implanted Type Area State Archivist Device Identifier Shelf Expiration Date Model / Serial / Lot Device Perm Cntrl [id number] - [id number] Implanted:Qty: 2 on 09/27/2015 by Sharda Ruiz, Corey Rucker MD at OR [facility] Uterus [employer] 05/03/2017 [id number] / / [id number] documented as of this encounter Additional Health [...] Power of Attor benoit? No Care Teams Heating Operators Engineer Relationship Specialty Start Date End Date Melissa Cruz PA-C [id number] [place] [address] PCP - General Physician Blunger Machine Operator 06/02/21 documented as of this encounter
--- OUTSIDE RECORDS SUMMARY | 2024-08-09 23:49 | External Medical Summary ---
Author Name Unknown Address Unknown Organization K1F:LABORATORY [facility] - [address] [facility] [address] Laboratory Report Ordering Provider Test Date Status ENRICO TODD 07/09/2024 12:55:15 Final hCG can serve as a screening assay [...] for postmenopausal women is <= 7 mIU/mL. Observation Date Value Abnormality Reference (Units ) Status Choriogonadotropin.intact +Beta subunit [Units/volume] in Serum or Plasma 07/09/2024 12:55:15 <0.3 <=1.0 (mIU/mL) Final Performing Location [facility] [address] [facility] [address]
--- OUTSIDE RECORDS SUMMARY | 2024-08-09 23:49 | External Medical Summary ---
Author Name Unknown Address Unknown Organization K1F:[facility] - [address] [place] [address] Laboratory Report Ordering Provider Test Date Status ENRICO TODD 07/09/2024 12:55:15 Final Observation Date Value Abnormality Reference (Units ) Status WBC, Total 07/09/2024 12:55:15 7.68 4.00-10.80 (K/uL) Final RBC 07/09/2024 12:55:15 4.14 3.85-5.15 (M/uL) Final Hemoglobin 07/09/2024 12:55:15 10.8 Below low normal 12.0-15.3 (g/dL) Final HCT 07/09/2024 12:55:15 35.6 Below low normal 36.0-45.2 (%) Final MCV 07/09/2024 12:55:15 86.0 81.5-97.5 (fL) Final MCH 07/09/2024 12:55:15 26.1 27.0-34.0 (pg) Final MCHC 07/09/2024 12:55:15 30.3 32.0-36.0 (g/dL) Final RDW 07/09/2024 12:55:15 15.5 11.5-15.5 (%) Final Platelets 07/09/2024 12:55:15 273 140-400 (K/uL) Final MPV 07/09/2024 12:55:15 8.9 6.6-11.1 (fL) Final Nucleated erythrocytes/100 leukocytes [Ratio] in Blood by Automated count 07/09/2024 12:55:15 0 <=0 (/100 WBCs) Final Performing Location [facility]ORY [facility] - [address] [place] [address]
--- OUTSIDE RECORDS SUMMARY | 2024-08-09 23:49 | External Medical Summary ---
Author Name Unknown Address Unknown Organization K1F:[facility] - [address] [place] [address] Laboratory Report Ordering Provider Test Date Status ENRICO TODD 07/09/2024 12:55:15 Final Observation Date Value Abnormality Reference (Units ) Status TSH 07/09/2024 12:55:15 1.83 0.27-4.20 (uIU/mL) Final Performing Location [facility] - [address] [place] [address]
--- OUTSIDE RECORDS SUMMARY | 2024-08-09 23:49 | External Medical Summary ---
Author Name Unknown Address Unknown Organization K1F:[facility]ORY [facility] - [address] [facility] [address] Laboratory Report Ordering Provider Test Date Status ENRICO TODD 07/09/2024 13:00:28 Final SCREENING Observation Date Value Abnormality Reference (Units ) Status SARS Coronavirus 2 07/09/2024 13:00:28 Negative N egative Final 2018 Novel Coronavirus not d etected.

This express test was developed and its performance characteristics determined by [employer]. It has not been cleared or approved [...] (RT-PCR) test, or a Centers for Disease Control-acceptable equivalent. The test is performed in a high complexity Clinical Laboratory Improvement Amendments-(CLIA) certified laboratory. The test is acceptable for SARS-CoV-2 diagnosis, surveillance, and travel within the [place] and to most countries. Please check with local testing authorities about requirements before travel.

The validation of bronchial specimens, tracheal aspirates, and sputum for this assay was developed and performance characteristics determined by [facility]. The validation of alternate specimen types has not been cleared or approved by the U.S. Food and Drug Administration (FDA). It has been determined that such clearance is not necessary. Performing Location [facility] - [address] [place] [address]
--- OUTSIDE RECORDS SUMMARY | 2024-08-09 23:49 | External Medical Summary ---
Author Name Unknown Address Unknown Organization K01:[facility] [place] [address] [facility] [address] Laboratory Report Ordering Provider Test Date Status BAUDILIO PRIDE 07/09/2024 12:55:15 Final Observation Date Value Abnormality Reference (Units ) Status Triglyceride 07/09/2024 12:55:15 94 <=174 ( mg/dL) Final Triglyceride Reference Range s (mg/dL):
<150 Acceptable
150-174 Borderline high
175-499 High
>=500 Very high Cholesterol 07/09/2024 12:55:15 154 <200 (mg /dL) Final Total Cholesterol Reference Ranges (mg/dL):
<200 Desirable
200-239 Borderline high
>=240 High HDL 07/09/2024 12:55:15 48 Below low normal >49 (mg/dL) Final HDL Cholesterol Reference Ra nges (mg/dL):
>=60 High (Desirable)
<50 Low (Undesirable) For Females
<40 Low (Undesirable) For Males NON-HDL CHOLESTEROL 07/09/2024 12:55:15 106 <=159 (mg/dL) Final Non-HDL Cholesterol Referenc e Range (mg/dL):
<100 Target level for high risk ASCVD patient
<130 Optimal for general population
130-159 Near optimal for general population
160-189 Borderline High
190-219 High
>=220 Very High LDL, (calculated) 07/09/2024 12:55:15 87 <= 129 (mg/dL) Final LDL Cholesterol Reference Ra nges (mg/dL):
<70 Target level for high risk ASCVD patient
<100 Optimal for general population
100-129 Near optimal for general population
130-159 Borderline high
160-189 High
>=190 Very high Performing Location [facility] [place] [address] [facility] [address]
--- OUTSIDE RECORDS SUMMARY | 2024-08-09 23:49 | External Medical Summary ---
Author Name Unknown Address Unknown Organization K1F:LAB[facility]ATORY [facility] - [address] [place] [address] Laboratory Report Ordering Provider Test Date Status PEYTONENRICO LEVIN 07/09/2024 12:55:15 Final Observation Date Value Abnormality Reference (Units ) Status SYNC LEUKOCYTES IN BLOOD BY AUTOMATED COUNT 07/09/2024 12:55:15 7.68 4.00-10.80 (K/uL) Final Segs 07/09/2024 12:55:15 65.5 40.0-75.0 (%) Final Lymphs % 07/09/2024 12:55:15 28.6 18.0-42.0 (%) Final Monos 07/09/2024 12:55:15 5.2 1.0-11.0 (%) Final Eosinophils 07/09/2024 12:55:15 0.0 0.0-6.0 (%) Final Basos 07/09/2024 12:55:15 0.4 0.0-2.0 (%) Final Immature Granulocyte, Percent 07/09/2024 12:55:15 0.3 0.0-2.0 (%) Final Absolute Segs 07/09/2024 12:55:15 5.03 1.80-7.70 (K/uL) Final Lymphs, absolute 07/09/2024 12:55:15 2.20 1.00-4.80 (K/ul) Final Monos, Abs 07/09/2024 12:55:15 0.40 0.00-1.10 (K/uL) Final Eos, Abs 07/09/2024 12:55:15 0.00 0.00-0.70 (K/uL) Final Basos, Abs 07/09/2024 12:55:15 0.03 0.00-0.20 (K/uL) Final Immature Granulocytes, Number 07/09/2024 12:55:15 0.02 0.00-0.20 (K/uL) Final Performing Location [facility] - [address] [facility] [address] [place] [address]
--- OUTSIDE RECORDS SUMMARY | 2024-08-09 23:49 | External Medical Summary ---
Author Name Unknown Address Unknown Organization K1F:LABORATORY [facility] - [address] [place] [address] Laboratory Report Ordering Provider Test Date Status ENRICO TODD 07/09/2024 12:55:15 Final Observation Date Value Abnormality Reference (Units ) Status Ethanol 07/09/2024 12:55:15 Negative Negative Final Performing Location LAB[facility]ATORY [facility] - [address] [place] [address]
--- OUTSIDE RECORDS SUMMARY | 2024-08-09 23:49 | External Medical Summary | Summary of Care ---
Author Name Unknown Organization [facility] Address [address] [place] [address] Phone [phone] Care Team Providers Care [employer] Principal Name Role Phone Anthony Melissa Downing PA-C Primary Care Provider +1- [phone] Reason for Visit * Reason Comments Wound Care Ble -- wounds Encounter Details Date Type Department Care Team ([facility] Contact Info) Description 06/27/2024 10:30 AM EST Nurse Only Wound Care, [facility] [address] [place] [address] [facility], Nurse Wound Care [address] [place] [address] Wound Care (Ble -- wounds ) Allergies Active Allergy Reactions Criticality Noted Date Comments Aspirin 01/27/2014 Increased bleeding documented as of this encounter (statuses as of 06/27/2024) Medications traZODone (DESYREL) 50 MG Tablet Take [...] DAY 90 Tablet 1 4 Active Nystatin 171616 UNIT/GM External Powder (Nystop) Apply topically to [...] as of this encounter (statuses as of 06/27/2024) Active Problems Problem Noted Date Diagnosed Date [...] as of this encounter (statuses as of 06/27/2024) Resolved Problems Problem Noted Date Diagnosed Date [...] as of this encounter (statuses as of 06/27/2024) Immunizations Name Administration Dates Next Due Pneumococcal Conjugate Vacci ne, 20-valent ([id number]) 12/04/2022 Pneumococcal Polysaccharide PPV23 (Pneumovax) 05/06/2011 Seasonal [...] Patient Instructions * Patient Instructions* Megha López, CORKING MACHINE OPERATOR - 06/27/2024 3:59 PM EST Discharge Instructions: Unna Boot You [...] Nursing Notes * Megha López LPN - 06/27/2024 3:48 PM EST Mica arrives for Nurse Visit this date with No Unna Boot nor dressings in place to her RLE. Right medial wound packing strip is hanging down her leg. Drainage seeing from wounds and down leg. Mica stated this all came off yesterday and today. Unna Boot yesterday and the rest today. Unna Boot to LLE was stacked at ankle , Mica stated ," It looks a little half assed but still on." Dressingplaced on Sun. Still taped to medial site. All other wounds to that leg open and draining. Mica stated she did not clean nor place vaseline over these sites. No Filiberto Wraps or any level of compression in place. It was reviewed with Mica the importance of cleaning sites when Unna Boots come off as well as the dressings . It too was explained again of need to place skim coat of vaseline and dressing over sites to keep wound bed soft and protected from bacteria or infection. I reiterated that if she remembers this is what had reviewed with her. She responded that yes she did. Dressing were then reapplied as follows -- [...] protect coban from sticking to her clothes. Reviewed then recommendations from once again of When Unna boots slide and are removed the need to Cleanse sites and provide dressings as demonstrated to her and her friend. Then Filiberto wraps from Toes to Knees to provided continuous compression. These supplies were provided this date. Mica verbalized understanding of how to apply and more importantly the reason for her to be doing so. Review of Unna safety as follows- and assisted with socks and shoes then to exit exam seating to her w/c - propelled to check out. Discharge Instructions: Unna Boot You will be [...] boot dressing that smells different than usual Assisted with stockings and shoes -- reminded to call with questions or concerns -- then propelled to check out. documented in this encounter Plan of Treatment Upcoming Encounters Date Type Department Care Team (Latest Contact Info) Description 06/30/2024 11:00 AM EST Nurse Only Wound Care, [address], [place] [address] [facility], Nurse Wound Care [address] [place] [address], [place] [address] 07/02/2024 10:20 AM EST Nurse Only Wound Care, [address], [place] [address] [facility], Nurse Wound Care [address] [place] [address], [place] [address] 07/07/2024 1:00 PM EST Nurse Only Wound Care, [address], [place] [address] [facility], Nurse Wound Care [address] [place] [address], [place] [address] 07/09/2024 11:00 AM EST Nurse Only Wound Care, [address], [place] [address] [facility], Nurse Wound Care [address] [place] [address], [place] [address] 07/11/2024 11:00 AM EST Nurse Only Wound Care, [address], [place] [address] [facility], Nurse Wound Care [address] [place] [address] 07/14/2024 10:00 AM EST NeuroDiagnostic [address]physiology, [address] [address] Ramiro Grove, DO [address] [facility], [place] [address] 07/14/2024 11:20 AM EST Office Visit Wound Care, [address], [place] [address] Yuriy Hilario [facility] [address] 07/29/2024 11:00 AM EST Appointment Card[address] Studies, [address] [address] 10/09/2024 11:30 AM EST Hospital Encounter OR [facility], Operating Room, [facility] - 4th Floor [address] [place] [address] Bigg Wetzel MD [address] [place] [address] 10/09/2024 11:30 AM EST - 10/09/2024 12:31 PM EST Surgery OR [facility], Operating Room, [facility] - 4th Floor [address] [place] [address] Bigg Wetzel MD [address] [place] [address] COLONOSCOPY FLEXIBLE PROXIMAL DIAGNOSTIC 10/24/2024 10:00 AM EDT Office Visit CardiologyMarilee [address] [place] [address] Darnell Boggs DO [address] [place] [address] Scheduled Procedures Name Priority Associated Diagnoses Date/Ti [...] this encounter Medical Devices Implanted Type Area Porter Used Car Lot Device Identifier Shelf Expiration Date Model / Serial / Lot Device Perm Cntrl [id number] - [id number] Implanted:Qty: 2 on 09/27/2015 by Sharda Ruiz, Corey Rucker MD at OR [facility] Uterus [employer] 05/03/2017 [id number] / / [id number] documented as of this encounter Visit Diagnoses [...] Power of Attor benoit? No Care Teams [employer] Principal Relationship Specialty Start Date End Date Melissa Cruz PA-C [address] [address] [place] [address] PCP - General Physician Sitecore Developer 06/02/21 documented as of this encounter
--- OUTSIDE RECORDS SUMMARY | 2024-08-09 23:49 | External Medical Summary | Summary of Care ---
Author Name Unknown Organization [facility] Address [address] [place] [address] Phone [phone] Care Team Providers Care [employer] Manager Name Role Phone Anthony Melissa Downing PA-C Primary Care Provider +1- [phone] Reason for Visit * Reason Onset Date Comments Appointment 06/24/2024 Encounter Details Date Type Department Care Team (Late st Contact Info) Description 06/24/2024 Telephone Wound Care, [address] [address] Services, Scheduling [address] [place] [address] Appointment Allergies Active Allergy Reactions Criticality Noted [...] DAY 90 Tablet 1 4 Active Nystatin 712138 UNIT/GM External Powder (Nystop) Apply topically to [...] Next Due Pneumococcal Conjugate Vacci ne, 20-valent ([id number]) 12/04/2022 Pneumococcal Polysaccharide PPV23 (Pneumovax) 05/06/2011 Seasonal [...] 10:00 AM EST Nurse Only Wound Care, [address], [place] [address] [facility], Nurse Wound Care [address] [place] [address], [place] [address] 06/27/2024 10:30 AM EST Nurse Only Wound Care, [address] [place] [address] [facility], Nurse Wound Care [address] [place] [address], [place] [address] 07/02/2024 10:20 AM EST Nurse Only Wound Care, [address] [place] [address] [facility], Nurse Wound Care [address] [place] [address], [place] [address] 07/04/2024 11:30 AM EST Nurse Only Wound Care, [address] [place] [address] [facility], Nurse Wound Care [address] [place] [address], [place] [address] 07/07/2024 1:00 PM EST Nurse Only Wound Care, [address] [place] [address] [facility], Nurse Wound Care [address] [place] [address], [place] [address] 07/09/2024 11:00 AM EST Nurse Only Wound Care, [address] [address] [facility], Nurse Wound Care [address] [place] [address], [place] [address] 07/11/2024 11:00 AM EST Nurse Only Wound Care, [address] [address] [facility], Nurse Wound Care [address] [place] [address] 07/14/2024 10:00 AM EST NeuroDiagnostic Study Neurophysiology, [address] [address] Ramiro Grove, DO [address] [place], [place] [address] 07/14/2024 11:20 AM EST Office Visit Wound Care, [address] [address] Yuriy Hilario MD [address] [place] [address] 07/29/2024 11:00 AM EST Appointment Cardiac Studies, [address] [address] 10/09/2024 11:30 AM EST Hospital Encounter OR [facility], Operating Room, [facility] - 4th Floor [address] [place], [place] [address] [phone] Bigg Wetzel MD [address] [facility] [place] [address] 10/09/2024 11:30 AM EST - 10/09/2024 12:31 PM EST Surgery OR [facility], Operating Room, [facility] - 4th Floor [address] [place] [address] [place] [address] Bigg Wetzel MD [address] [facility] [place] [address] COLONOSCOPY FLEXIBLE PROXIMAL DIAGNOSTIC 10/24/2024 10:00 AM EDT Office Visit Cardiology, [address] [place] [address] Darnell Boggs DO 400 [place] [address] Scheduled Procedures Name Priority Associated Diagnoses Date/Ti [...] Smear 01/11/2024 01/10/2021, 10/05, 02/10/2009 COVID-19 Vaccine (1 - season) 2024 DTap/Tdap Vaccines (2 - [...] this encounter Medical Devices Implanted Type Area Inspector Material Disposition Device Identifier Shelf Expiration Date Model / Serial / Lot Device Perm Cntrl [id number] - [id number] Implanted:Qty: 2 on 09/27/2015 by Sharda Ruiz, Corey Rucker MD at OR [facility] Uterus [employer] 05/03/2017 [id number] / / [id number] documented as of this encounter Additional Health [...] Power of Attor benoit? No Care Teams [employer] Manager Relationship Specialty Start Date End Date Melissa Cruz PA-C [address] [facility] [address] [place] [address] PCP - General Physician Offset Plate Maker 06/02/21 documented as of this encounter
--- OUTSIDE RECORDS SUMMARY | 2024-08-09 23:49 | External Medical Summary ---
Author Name Unknown Address Unknown Organization K1F:LABORATORY [facility] - [address] [place] [address] Laboratory Report Ordering Provider Test Date Status ENRICO TODD 07/09/2024 12:55:15 Final Observation Date Value Abnormality Reference (Units ) Status Salicylates 07/09/2024 12:55:15 <1.0 Below low normal 5 .0-30.0 (mg/dL) Final Performing Location LABORATORY [facility] - [address] [place] [address]
--- OUTSIDE RECORDS SUMMARY | 2024-08-09 23:49 | External Medical Summary | Summary of Care ---
Author Name Unknown Organization [facility] Address [address] [place] [address] Phone [phone] Care Team Providers Care Basin Operator Name Role Phone CarylMelissa mansfield Chang FONSECA Primary Care Provider +1- [phone] Reason for Visit * Reason Comments Follow Up BLE -- WOUNDS - LYMP HADEMA Encounter Details Date Type Department Care Team (Late st Contact Info) Description 06/23/2024 11:20 AM EST Office Visit Wound Care, [facility] [address] [place], [place] [id number] Yuriy Hilario MD [address], [place] [id number] Multiple open wounds of lower leg, unspecified laterality, subsequent encounter*; Lymphedema Allergies Active Allergy Reactions Criticality Noted Date Comments Aspirin 01/27/2014 Increased bleeding documented as of this encounter (statuses as of 06/23/2024) Medications traZODone (DESYREL) 50 MG Tablet Take [...] DAY 90 Tablet 1 4 Active Nystatin 118519 UNIT/GM External Powder (Nystop) Apply topically to affected area 3 times a day. Apply to skin folds of both lower legs at time of dressing change or daily. 60 g 3 09/11/202 4 Active Potassium Chloride ER 10 MEQ [...] as of this encounter (statuses as of 06/23/2024) Active Problems Problem Noted Date Diagnosed Date [...] as of this encounter (statuses as of 06/23/2024) Resolved Problems Problem Noted Date Diagnosed Date [...] as of this encounter (statuses as of 06/23/2024) Immunizations Name Administration Dates Next Due Pneumococcal Conjugate Vacci ne, 20-valent ([id number]) 12/04/2022 Pneumococcal Polysaccharide PPV23 (Pneumovax) 05/06/2011 Seasonal [...] Patient Instructions * Patient Instructions* Megha López, SHOP DIRECTOR - 06/23/2024 3:30 PM EST Discharge Instructions: Unna Boot You [...] different than usual documented in this encounter Progress Notes * Yuriy Hilario MD - 06/23/2024 11:46 AM EST Images from the original note were not included. WOUND OUTPATIENT FOLLOW-UP NOTE DOS: 06/23/2024 CC: Follow-up HPI: Mica Jimenez returns for follow-up of bilateral lower leg wounds. She is having problemskeeping the wraps over the weekend and presents with no significant compression today. Current dressing: See Wound Assessment Dressing change frequency: twice a week Subjective ROS: Pain: no Drainage: mild Swelling: less than last week Erythema: minimal Fever/Chills: no Malaise: no ROS was negative other than stated above. Tobacco History: Social History Tobacco Use Smoking Status Former Current packs/day: 0.00 Average packs/day: 1 pack/day for 5.0 years (5.0 ttl pk-yrs) Types: Cigarettes Start date: 06/06/2007 Quit date: 06/06/2012 Years since quittin.0 Smokeless Tobacco Never Objective There were no vitals filed for this visit. WOUND ASSESSMENT: Alteration in Skin Integrity Proximal;Right;Medial Leg (Active) Clinical Image 06/23/24 1115 Wound Length (cm) 7 cm 06/23/24 1115 Wound Width (cm) 6.7 cm 06/23/24 1115 Wound Depth (cm) 0.3 cm 06/23/24 1115 Tunneling (cm) 2.3 06/23/24 1115 Ulcer Thickness Full 06/23/24 1115 Yellow Fibrinous Slough (%) 1-25% 06/23/24 1115 Granulation Tissue (%) 51-75% 06/23/24 1115 Granulation Tissue Color red 06/23/24 1115 Drainage serosanguinous, heavy 06/23/24 1115 Odor (after cleansing wound) No 06/23/24 1115 Jaye-Wound (Surrounding Skin) Edema;Erythematous 06/23/24 1115 Wound Surface Area (cm^2) 46.9 cm^2 06/23/24 1115 Wound Volume (cm^3) 14.07 cm^3 06/23/24 1115 Alteration in Skin Integrity Lower;Right;Proximal;Anterior Leg (Active) Alteration in Skin Integrity Anterior;Distal;Left;Lower Leg (Active) Alteration in Skin Integrity Left;Medial Knee (Active) Alteration in Skin Integrity Proximal;Left;Medial Leg (Active) Clinical Image 06/23/24 1123 Wound Length (cm) 1.5 cm 06/23/24 1123 Wound Width (cm) 1.3 cm 06/23/24 1123 Wound Depth (cm) 0.1 cm 06/23/24 1123 Ulcer Thickness Full 06/23/24 1123 Yellow Fibrinous Slough (%) none 06/23/24 1123 Granulation Tissue (%) 100% 06/23/24 1123 Granulation Tissue Color red 06/23/24 1123 Drainage serosanguinous, mild 06/23/24 1123 Odor (after cleansing wound) No 06/23/24 1123 Jaye-Wound (Surrounding Skin) Edema 06/23/24 1123 Wound Surface Area (cm^2) 1.95 cm^2 06/23/24 1123 Wound Volume (cm^3) 0.195 cm^3 06/23/243 Alteration in Skin Integrity Anterior;Left Knee (Active) Alteration in Skin Integrity Left;Medial Knee (Active) Clinical Image 06/23/24 1124 Wound Length (cm) 5.4 cm 06/23/24 1124 Wound Width (cm) 3.5 cm 06/23/244 Wound Depth (cm) 0.2 cm 06/23/241123 Ulcer Thickness Full 06/23/244 Yellow Fibrinous Slough (%) 26-50% 06/23/24 112 Granulation Tissue (%) 26-50% 06/23/241123 Granulation Tissue Color pale/pink 06/23/241123 Necrotic Tissue (%) none 06/23/241123 Drainage serosanguinous, moderate 06/23/244 Odor (after cleansing wound) No 06/23/241123 Jaye-Wound (Surrounding Skin) Edema;Erythematous 06/23/241123 Wound Surface Area (cm^2) 18.9 cm^2 06/23/241123 Wound Volume (cm^3) 3.78 cm^3 06/23/241123 Alteration in Skin Integrity Lower;Right;Medial Leg (Active) Clinical Image 06/23/24 112 Wound Length (cm) 5.8 cm 06/23/240 Wound Width (cm) 3.5 cm 06/23/240 Wound Depth (cm) 0.2 cm 06/23/241119 Ulcer Thickness Full 06/23/240 Yellow Fibrinous Slough (%) 1-25% 06/23/24 112 Granulation Tissue (%) 51-75% 06/23/240 Granulation Tissue Color pale/pink 06/23/240 Drainage serosanguinous, moderate 06/23/24 1120 Odor (after cleansing wound) No 06/23/24 112 Jaye-Wound (Surrounding Skin) Edema;Erythematous 06/23/240 Wound Surface Area (cm^2) 20.3 cm^2 06/23/24 1120 Wound Volume (cm^3) 4.06 cm^3 06/23/24 1120 Alteration in Skin Integrity Anterior;Proximal;Right Leg (Active) Clinical Image 06/23/24 1118 Wound Length (cm) 3.6 cm 06/23/24 1118 Wound Width (cm) 3 cm 06/23/24 1118 Wound Depth (cm) 0.4 cm 06/23/24 1118 Ulcer Thickness Full 06/23/24 1118 Yellow Fibrinous Slough (%) 51-75% 06/23/24 1118 Granulation Tissue (%) 1-25% 06/23/24 1118 Granulation Tissue Color pale/pink 06/23/24 1118 Drainage serosanguinous, moderate 06/23/24 1118 Odor (after cleansing wound) No 06/23/24 1118 Jaye-Wound (Surrounding Skin) Edema;Erythematous 06/23/24 1118 Wound Surface Area (cm^2) 10.8 cm^2 06/23/24 1118 Wound Volume (cm^3) 4.32 cm^3 06/23/24 1118 Alteration in Skin Integrity Anterior;Distal;Lower;Right Leg (Active) Alteration in Skin Integrity Right;Lateral;Proximal Thigh (Active) Clinical Image 06/23/24 1112 Wound Length (cm) 27 cm 06/23/24 1112 Wound Width (cm) 12.2 cm 06/23/24 1112 Wound Depth (cm) 0.2 cm 06/23/24 1112 Yellow Fibrinous Slough (%) 26-50% 06/23/24 1112 Granulation Tissue (%) 26-50% 06/23/24 1112 Granulation Tissue Color red 06/23/24 1112 Drainage serosanguinous, mild 06/23/24 1112 Odor (after cleansing wound) No 06/23/24 1112 Jaye-Wound (Surrounding Skin) Edema 06/23/24 1112 Wound Surface Area (cm^2) 329.4 cm^2 06/23/24 1112 Wound Volume (cm^3) 65.88 cm^3 06/23/24 1112 Alteration in Skin Integrity Right;Posterior Popliteal (Active) Clinical Image 06/23/24 1128 Wound Length (cm) 6.5 cm 06/23/24 1128 Wound Width (cm) 1 cm 06/23/248 Wound Depth (cm) 0.1 cm 06/23/24 112 Yellow Fibrinous Slough (%) none 06/23/24 1128 Granulation Tissue (%) 100% 06/23/241127 Granulation Tissue Color red 06/23/248 Drainage serosanguinous, mild 06/23/24 1128 Odor (after cleansing wound) No 06/23/24 1128 Jaye-Wound (Surrounding Skin) Edema;Erythematous 06/23/248 Wound Surface Area (cm^2) 6.5 cm^2 06/23/248 Wound Volume (cm^3) 0.65 cm^3 06/23/248 Alteration in Skin Integrity Left Knee (Active) Clinical Image 06/23/241125 Wound Length (cm) 4 cm 06/23/241125 Wound Width (cm) 2.5 cm 06/23/241125 Wound Depth (cm) 0.2 cm 06/23/241125 Ulcer Thickness Full 06/23/241125 Yellow Fibrinous Slough (%) 1-25% 06/23/24 112 Granulation Tissue (%) 51-75% 06/23/241125 Granulation Tissue Color red 06/23/241125 Drainage serous, mild 06/23/241125 Odor (after cleansing wound) No 06/23/241125 Jaye-Wound (Surrounding Skin) Edema;Erythematous 06/23/241125 Wound Surface Area (cm^2) 10 cm^2 06/23/246 Wound Volume (cm^3) 2 cm^3 06/23/241125 The right mid-leg medial wound is larger and deeper, however, the character has improved in that there is more granulation tissue and epithelialization at the edges. Assessment & Plan ASSESSMENT: ICD-10-CM 1. Multiple open wounds of lower leg, unspecified laterality, subsequent encounter S81.809D 2. Lymphedema I89.0 PLAN: Vaseline and dressings to each of the large open wounds. Unna boots overlying the dressings. I had a discussion with the patient today about her lack of compliance with compression and was clear that arriving at her appointment without compression is unacceptable. We outlined strategies for care when the wound center is unavailable on the weekend. She will need to be more proactive in her home care of her own legs for us to be successful. Follow Up: Return in about 3 weeks (around 07/14/2024). I spent a total of 30-39 minutes (exact time 35 mins) on the date of service in preparation, delivery, and documentation of the care provided to Mica Jimenez excluding any time spent in the performance of separately billed services or time spent by another provider/QHP. Lillian Hilario MD documented in this encounter Nursing Notes * Megha López', SHOP DIRECTOR - 06/23/2024 2:38 PM EST Post exam provided treatment per order of -- 1/4" Iodoform packing covered with Saline moistened 4x4" gauze to cover Right medial thigh / knee wound. This was then buttressed with ABD and 1/2 roll ofKerlix to support tissue and help shape leg to help with application of Unna boot. All other woundsto the Right leg were covered with skim coat of Vaseline then DSD - Kerlix to hold [...] skin clean. Every day, wash any other piaz or sores not covered by a dressing. [...] than usual * Megha López LPN - 06/23/2024 10:56 AM EST Images from the original note were not included. Assisted to sit safely from w/c to exam seating aware to not rise unassisted for her safety. Mica stated unna boots and all but Right medial dressing was out of place by Sunday even ing then removed at home Sunday morning. Wounds to Left medial knee and Right medial knee - thigh tissue noted with serosanguinous drainage..--- yellow seeping post wound cleansing. Tolerated cleansing with soap and water -- towel dried -- photos taken and measurements of sites documented in this encounter Plan of Treatment Upcoming Encounters Date Type Department Care Team (Latest Contact Info) Description 06/25/2024 10:00 AM EST Nurse Only Wound Care, [address] [address] [facility], Nurse Wound Care [address] [place] [address] [place] [address] 06/27/2024 10:30 AM EST Nurse Only Wound Care, [address] [place] [address] [facility], Nurse Wound Care [address] [place] [address] [place] [address] 06/30/2024 11:00 AM EST Nurse Only Wound Care, [address] [place] [address] [facility], Nurse Wound Care [address] [place] [address] [place] [address] 07/02/2024 10:20 AM EST Nurse Only Wound Care, [address] [place] [address] [facility], Nurse Wound Care [address] [place], [place] [address] [address] 07/04/2024 11:30 AM EST Nurse Only Wound Care, [address] [address] [facility], Nurse Wound Care [address] [place] [address] [place] [address] 07/07/2024 1:00 PM EST Nurse Only Wound Care, [address], [place] [address] [facility], Nurse Wound Care [address] [place] [address] 07/09/2024 11:00 AM EST Nurse Only Wound Care, [address] [place] [address] [facility], Nurse Wound Care [address] [place], [place] [address] [address] 07/11/2024 11:00 AM EST Nurse Only Wound Care, [address] [place] [address] [facility], Nurse Wound Care [address] [place] [address] 07/14/2024 10:00 AM EST NeuroDiagnostic [address] Neurophysiology, [address] [address] [place], [address] [facility], [place] [address] 07/14/2024 11:20 AM EST Office Visit Wound Care, [address] [place] [address] [facility] [address] 07/29/2024 11:00 AM EST Appointment [address], [address] [address] 10/09/2024 11:30 AM EST Hospital Encounter OR [facility], Operating Room, [facility] - 4th Floor [address] [place], [place] [address] [id number] Bigg Wetzel MD [address] [facility] [place] [address] 10/09/2024 11:30 AM EST - 10/09/2024 12:31 PM EST Surgery OR [facility], Operating Room, [facility] - 4th Floor [address] [place] [phone] Bigg Wetzel MD [address] [place] [address] COLONOSCOPY FLEXIBLE PROXIMAL DIAGNOSTIC 10/24/2024 10:00 AM EDT Office Visit Cardiology, [place] [address] [place] [address] Darnell Boggs DO [address] [place] [address] Scheduled Procedures Name Priority Associated Diagnoses Date/Ti [...] this encounter Medical Devices Implanted Type Area Shot Packer Device Identifier Shelf Expiration Date Model / Serial / Lot Device Perm Cntrl [id number] - [id number] Implanted:Qty: 2 on 09/27/2015 by Sharda Ruiz, Corey Rucker MD at OR [facility] Uterus [employer] 05/03/2017 [id number] / [id number] documented as of this encounter Visit Diagnoses Diagnosis Multiple open wounds of lower leg, unspecified laterality, subsequent encounter- Primary Lymphedema Other lymphedema Screening for colon cancer Special screening for [...] Power of Attor benoit? No Care Teams Basin Operator Relationship Specialty Start Date End Date Melissa Crzu PA-C [address] [facility] [address] [place] [address] PCP - General Physician Rubber Chemist 06/02/21 documented as of this encounter
--- OUTSIDE RECORDS SUMMARY | 2024-08-09 23:49 | External Medical Summary | Summary of Care ---
Author Name Unknown Organization [facility] Address [address] [place] [address] Phone [phone] Care Team Providers Care Help Desk Associate Name Role Phone CarylMelissa mansfield Chang FONSECA Primary Care Provider +1- [phone] Reason for Visit * Reason Comments Wound Care B/LLE Encounter Details Date Type Department Care Team ([facility] Contact Info) Description 06/25/2024 10:00 AM EST Nurse Only Wound Care, [facility] [address] [place] [address] [facility], Nurse Wound Care [address] [place] [address] Wound Care (B/LLE ) Allergies Active Allergy [...] DAY 90 Tablet 1 4 Active Nystatin 210526 UNIT/GM External Powder (Nystop) Apply topically to [...] Next Due Pneumococcal Conjugate Vacci ne, 20-valent ([id number]) 12/04/2022 Pneumococcal Polysaccharide PPV23 (Pneumovax) 05/06/2011 Seasonal [...] encounter Patient Instructions * Patient Instructions* Veda Jacobson, ALPESH - 06/25/2024 3:15 PM EST Compression Therapy Education: Any questions, redness or swelling around the wound and development of a temperature of 101F or greater, please contact the [facility]. Please check your toes frequently. If they become blue, purple, pale, cool, numb, and/or tingling elevate your leg higher than your heart for one hour. If you have no relief of the symptoms, cut the entire wrap off and call the [facility], . Keep the wrap dry. If the wrap slides down or bunches at the ankle, call [facility]. Elevate legs above heart for 30 minutes [...] Nursing Notes * Veda Jacobson CMA - 06/25/2024 1:06 PM EST Treatment done as ordered by Dr. Hilario Skim coat of Vaseline applied to B/LLE except for the R/medial thigh wound 1/4 inch Iodoform packing used to pack R/medial thigh wound and then covered with sterile saline moistened gauze. Covered with dry 4x4 and then buttressed with ABD pad and rolled Kerlix to help shapethe leg. Vaseline was applied to all other open wound beds. LLE wound beds coated with Vaseline, covered with dry 4x4 gauze then rolled Kerlix, ABD pads buttressed to help separate skin edges and help shape the leg. Allevyn gentle foam pads applied to each lateral side of the foot - Kerlix wrapped from base of toes to just below the knee. B/LLE unna z boot applied and then wrapped with coban. Size 7 Surgilast applied over the unna boot to help the wrap from sticking to clothing. I reviewed recommendations from Dr. Hilario with the patient. Advised patient to keep wounds covered and protected at all times - she voiced her understanding Compression education was reviewed with patient and she voiced her understanding Compression Therapy Education: Any questions, redness or swelling around the wound and development of a temperature of 101F or greater, please contact the [facility]. Please check your toes frequently. If they become blue, purple, pale, cool, numb, and/or tingling elevate your leg higher than your heart for one hour. If you have no relief of the symptoms, cut the entire wrap off and call the [facility], . Keep the wrap dry. If the wrap slides down or bunches at the ankle, call [facility]. Elevate legs above heart for 30 minutes 2-3 times a day. Discharge Instructions: Unna Boot You will be [...] dressing that smells different than usual * Veda Jacobson CMA - 06/25/2024 10:36 AM EST Images from the original note [...] personnel. Patient voiced full comprehension of instructions. Patient presents with dressing intact to L/medial knee wound, all other wounds are uncovered since last night Kailee boots came off yesterday and patient states she had DAISY wraps on until 3 this morning at which time she states they slid off Shoes, socks and remaining dressing to L/medial knee wound was removed Wounds then legs and feet washed with soap and water and towel dried. Patient tolerated well. documented in this encounter Plan of Treatment Upcoming Encounters Date Type Department Care Team (Latest Contact Info) Description 06/27/2024 10:30 AM EST Nurse Only Wound Care, [address] [address] [facility], Nurse Wound Care [address] [place] [address] [place] [address] 06/30/2024 11:00 AM EST Nurse Only Wound Care, [address] [address] [facility], Nurse Wound Care [address] [place], [place] [address] [address] 07/02/2024 10:20 AM EST Nurse Only Wound Care, [address] [address] [facility], Nurse Wound Care [address] [place], [place] [address] [address] 07/04/2024 11:30 AM EST Nurse Only Wound Care, [address] [address] [facility], Nurse Wound Care [address] [place], [place] [address] [address] 07/07/2024 1:00 PM EST Nurse Only Wound Care, [address] [place] [address] [facility], Nurse Wound Care [address] [place] [address], [place] [address] 07/09/2024 11:00 AM EST Nurse Only Wound Care, [address] [place] [address] [facility], Nurse Wound Care [address] [place] [address], [place] [address] 07/11/2024 11:00 AM EST Nurse Only Wound Care, [address] [place] [address] [facility], Nurse Wound Care [address] [place] [address] 07/14/2024 10:00 AM EST NeuroDiagnostic Study Neurophysiology, [address] [place] [address] [place], [address] [facility], [place] [address] 07/14/2024 11:20 AM EST Office Visit Wound Care, [address] [place] [address] Yuriy Hilario MD [address] [place] [address] [place] [address] 07/29/2024 11:00 AM EST Appointment Cardiac Studies, [address] [place] [address] 10/09/2024 11:30 AM EST Hospital Encounter OR [facility], Operating Room, [facility] - 4th Floor [address] [place], [place] [address] [phone] Bigg Wetzel MD 132 [facility] [place] [address] 10/09/2024 11:30 AM EST - 10/09/2024 12:31 PM EST Surgery OR [facility], Operating Room, [facility] - 4th Floor [address] [place] [phone] Bigg Wetzel MD [address] [place] [address] COLONOSCOPY FLEXIBLE PROXIMAL DIAGNOSTIC 10/24/2024 10:00 AM EDT Office Visit Cardiology, [place] [address] [place] [address] Darnell Boggs DO [address] [place] [address] Scheduled Procedures Name Priority Associated Diagnoses Date/Ti [...] this encounter Medical Devices Implanted Type Area Gang Boss Device Identifier Shelf Expiration Date Model / Serial / Lot Device Perm Cntrl [id number] - [id number] Implanted:Qty: 2 on 09/27/2015 by Sharda Ruiz, Corey Rucker MD at OR [facility] Uterus [employer] 05/03/2017 [id number] / / [id number] documented as of this encounter Visit Diagnoses [...] Power of Attor benoit? No Care Teams Help Desk Associate Relationship Specialty Start Date End Date Melissa Cruz, MARIAN [address] [facility] [facility] [place] [address] PCP - General Physician Information Technology Teacher 06/02/21 documented as of this encounter
--- OUTSIDE RECORDS SUMMARY | 2024-08-09 23:49 | External Medical Summary ---
Author Name Unknown Address Unknown Organization [id number]:[facility] - [address] [facility] [address] Laboratory Report Ordering Provider Test Date Status BAUDILIO PRIDE 07/09/2024 12:55:15 Final Observation Date Value Abnormality Reference (Units ) Status HbA1C 07/09/2024 12:55:15 4.8 4.0-5.6 (% ) Final The use of HbA1c to monitor glycemic status is based on normal hemoglobin and HbA composition. This test should not be used in patients with abnormal hemoglobin that affects the half life of the red blood cell or the in vivo glycation rates. Glucose, estimated average 07/09/2024 12:55:15 91 <126 (mg/dL) Final Performing Location [facility] [address] [facility] [address]
--- OUTSIDE RECORDS SUMMARY | 2024-08-09 23:49 | External Medical Summary | Summary of Care ---
Author Name Unknown Organization [facility] Address [address] [place] [address] Phone [phone] Care Team Providers Care Music Grapher Name Role Phone Anthony Melissa Downing PA-C Primary Care Provider +1- [phone] Reason for Visit * Reason Comments Wound Care Wounds -- edema to B LE -- Encounter Details Date Type Department Care Team (Late st Contact Info) Description 06/20/2024 10:30 AM EST Nurse Only Wound Care, [facility] [address] [place] [address] [facility], Nurse Wound Care [address] [place] [address] Wound Care (Wounds -- edema to BLE -- ) Allergies Active Allergy Reactions Criticality Noted Date Comments Aspirin 01/27/2014 Increased bleeding documented as of this encounter (statuses as of 06/20/2024) Medications traZODone (DESYREL) 50 MG Tablet Take [...] DAY 90 Tablet 1 4 Active Nystatin 056581 UNIT/GM External Powder (Nystop) Apply topically to [...] as of this encounter (statuses as of 06/20/2024) Active Problems Problem Noted Date Diagnosed Date [...] as of this encounter (statuses as of 06/20/2024) Resolved Problems Problem Noted Date Diagnosed Date [...] as of this encounter (statuses as of 06/20/2024) Immunizations Name Administration Dates Next Due Pneumococcal Conjugate Vacci ne, 20-valent ([id number]) 12/04/2022 Pneumococcal Polysaccharide PPV23 (Pneumovax) 05/06/2011 Seasonal [...] Patient Instructions * Patient Instructions* Megha López', SET MAKING MACHINE OPERATOR - 06/20/2024 10:52 AM EST Discharge Instructions: Unna Boot You [...] Nursing Notes * Megha López LPN - 06/20/2024 10:53 AM EST Assisted to sit safely on exam seating -- Unna boots and all but Right medial dressing have been removed -- These all stayed in place until morning. R-Medial wound dressing is noted to have rolled over and exposed wound bed at this point. All packing noted to be coming out. Wounds washed with soap and water towel dried tolerated well. Noting tissue around Right knee and medial wound presenting more pink this date.No other changes compared to prior visit on Sun. Mica has asked to have Foam applied to lateral foot and heel as well as this was placed on priorvisit. Will continue with dressings per order of -- Iodoform packing to right medial wound - covered with saline moist dsd then ABD over this secured with Medipore tape. LLE medial wound was covered with Skim coat vaseline then DSD secured with Medipore tape related to her c/o wrap slides and hurts site as well as hurts when touches anything. Unna boot to BLE - from toes to knee tissue at angle to avoidskin fold. The skin folds at horn - knees -all buttressed to help with holding tissue more stable to support Unna Z and Coban compression. Surgilast from toes to knee only to help prevent Unna boot from sticking to clothes Skin folds to thigh Kerlix placed with in to buttress tissue apart. Assisted with socks and shoes then propelled to check out -- was then taken to [facility] waiting area to await her ride from [facility]. Discharge Instructions: Unna Boot You will be [...] Department Care Team (Latest Contact Info) Description 06/23/2024 11:20 AM EST Office [address] Wound Care, [address] [address] Yuriy Hilario MD [address] [place] [address] 06/25/2024 10:00 AM EST Nurse Only Wound Care, [address] [place] [address] [facility], Nurse Wound Care [address] [place], [place] [address] [address] 06/27/2024 10:30 AM EST Nurse Only Wound Care, [address] [place] [address] [facility], Nurse Wound Care [address] [place], [place] [address] [address] 07/14/2024 10:00 AM EST NeuroDiagnostic Study Neurophysiology, [place] [address] [facility] [place] [address] Ramiro Grove, DO 200 [facility] [place] [address] 07/14/2024 11:20 AM EST Office Visit Wound Care, [address] [place] [address] Yuriy Hilario MD [address] [place] [facility] [place] [address] 07/29/2024 11:00 AM EST Appointment Cardiac Studies, [address] [place] [address] 10/09/2024 11:30 AM EST Hospital Encounter OR [facility], Operating Room, [facility] - 4th Floor [address] [place] [address] [place] [address] Bigg Wetzel MD [address] [facility] [place] [address] 10/09/2024 11:30 AM EST - 10/09/2024 12:31 PM EST Surgery OR [facility], Operating Room, [facility] - 4th Floor [address] [place] [address] [place] [address] Bigg Wetzel MD [address] [facility] [place] [address] COLONOSCOPY FLEXIBLE PROXIMAL DIAGNOSTIC 10/24/2024 10:00 AM EDT Office Visit Cardiology, [place] 400 [place] [address] Darnell Boggs DO 400 [facility] [address] Scheduled Procedures Name Priority Associated Diagnoses Date/Ti [...] this encounter Medical Devices Implanted Type Area Medicare Contact Specialist Device Identifier Shelf Expiration Date Model / Serial / Lot Device Perm Cntrl [id number] - [id number] Implanted:Qty: 2 on 09/27/2015 by Sharda Ruiz, Corey Rucker MD at OR [facility] Uterus [employer] 05/03/2017 [id number] / / [id number] documented as of this encounter Visit Diagnoses [...] Power of Attor benoit? No Care Teams Music Grapher Relationship Specialty Start Date End Date Melissa Cruz PA-C [address] [id number] [place] [address] PCP - General Physician Extract Mixer 06/02/21 documented as of this encounter
--- OUTSIDE RECORDS SUMMARY | 2024-08-09 23:49 | External Medical Summary ---
Author Name Unknown Address Unknown Organization K1F:[facility] - [address] [place] [place] [address] Laboratory Report Ordering Provider Test Date Status ENRICO TODD 07/09/2024 12:55:15 Final Observation Date Value Abnormality Reference (Units ) Status BUN 07/09/2024 12:55:15 35 Above high normal 6-20 (mg/dL) Final Creatinine 07/09/2024 12:55:15 0.9 0.5-1.0 (mg/dL) Final Glomerular filtration rate/1.73 sq M.predicted [Volume Rate/Area] in Serum, Plasma or Blood by Creatinine-based formula (CKD-EPI) 07/09/2024 12:55:15 82 >=60 (mL/min) Final eGFR is calculated based on the CKD-EPI 2020 equation. Sodium 07/09/2024 12:55:15 142 135-146 (m mol/L) Final Potassium 07/09/2024 12:55:15 4.3 3.5-5.1 (m mol/L) Final Cl 07/09/2024 12:55:15 105 98-107 (mm ol/L) Final CO2 07/09/2024 12:55:15 26 22-32 (mmo l/L) Final Anion gap 07/09/2024 12:55:15 11 7-15 (mmol /L) Final Glucose 07/09/2024 12:55:15 102 70-120 (mg /dL) Final Albumin 07/09/2024 12:55:15 3.7 Below low normal 3.8 -5.0 (g/dL) Final AST (Aspartate aminotransferase) 07/09/2024 12:55:15 16 10-35 (U/L) Fin al Alk Phos 07/09/2024 12:55:15 95 35-130 (U/ L) Final Bilirubin, Total 07/09/2024 12:55:15 0.7 <=1 .2 (mg/dL) Final Calcium 07/09/2024 12:55:15 9.2 8.4-10.2 ( mg/dL) Final Protein 07/09/2024 12:55:15 7.3 6.0-8.3 (g /dL) Final ALT (Alanine aminotransferase) 07/09/2024 12:55:15 14 10-35 (U/L) Saman bruner Performing Location [facility] - [facility] Anni [address]. [place] [address]
--- OUTSIDE RECORDS SUMMARY | 2024-08-09 23:49 | External Medical Summary | Summary of Care ---
Author Name Unknown Organization [facility] Address [address] [place] [address] Phone [phone] Care Team Providers Care Power House Engineer Name Role Phone CarylMelissa mansfield Chang FONSECA Primary Care Provider +1- [phone] Reason for Visit * Reason Comments Follow Up BLE -- WOUNDS - LYMP HADEMA Encounter Details Date Type Department Care Team (Late st Contact Info) Description 06/23/2024 11:20 AM EST Office Visit Wound Care, [facility] [address] [place], [place] [id number] Yuriy Hilario MD [address] [place], [place] [phone] Multiple open wounds of lower leg, unspecified [...] DAY 90 Tablet 1 4 Active Nystatin 585240 UNIT/GM External Powder (Nystop) Apply topically to [...] Next Due Pneumococcal Conjugate Vacci ne, 20-valent ([id number]) 12/04/2022 Pneumococcal Polysaccharide PPV23 (Pneumovax) 05/06/2011 Seasonal [...] Integrity Proximal;Right;Medial Leg (Active) Clinical Image 06/23/24 111 Wound Length (cm) 7 cm 06/23/24 1115 Wound Width (cm) 6.7 cm 06/23/24 1115 Wound Depth (cm) 0.3 cm 06/23/24 1115 Tunneling (cm) 2.3 06/23/24 111 Ulcer Thickness Full 06/23/24 1115 Yellow Fibrinous Slough (%) 1-25% 06/23/24 111 Granulation Tissue (%) 51-75% 06/23/24 111 Granulation Tissue Color red 06/23/241114 Drainage serosanguinous, heavy 06/23/24 111 Odor (after cleansing wound) No 06/23/24 111 Jaye-Wound (Surrounding Skin) Edema;Erythematous 06/23/24 1115 Wound [...] 1123 Yellow Fibrinous Slough (%) none 06/23/24 112 Granulation Tissue (%) 100% 06/23/24 112 Granulation Tissue Color red 06/23/243 Drainage serosanguinous, mild 06/23/241122 Odor (after cleansing wound) No 06/23/24 1123 Jaye-Wound (Surrounding Skin) Edema 06/23/24 1123 Wound Surface Area (cm^2) 1.95 cm^2 06/23/24 1123 Wound Volume (cm^3) 0.195 cm^3 06/23/24 1123 Alteration in Skin Integrity Anterior;Left Knee (Active) Alteration in Skin Integrity Left;Medial Knee (Active) Clinical Image 06/23/24 1124 Wound Length (cm) 5.4 cm 06/23/24 1124 Wound Width (cm) 3.5 cm 06/23/24 1124 Wound Depth (cm) 0.2 cm 06/23/24 1124 Ulcer Thickness Full 06/23/24 1124 Yellow Fibrinous Slough (%) 26-50% 06/23/24 1124 Granulation Tissue (%) 26-50% 06/23/24 1124 Granulation Tissue Color pale/pink 06/23/244 Necrotic Tissue (%) none 06/23/241123 Drainage serosanguinous, moderate 06/23/244 Odor (after cleansing wound) No 06/23/244 Jaye-Wound (Surrounding Skin) Edema;Erythematous 06/23/244 Wound Surface Area (cm^2) 18.9 cm^2 06/23/244 Wound Volume (cm^3) 3.78 cm^3 06/23/244 Alteration in Skin Integrity Lower;Right;Medial Leg (Active) Clinical Image 06/23/24 1120 Wound Length (cm) 5.8 cm 06/23/240 Wound Width (cm) 3.5 cm 06/23/240 Wound Depth (cm) 0.2 cm 06/23/240 Ulcer Thickness Full 06/23/240 Yellow Fibrinous Slough (%) 1-25% 06/23/24 1120 Granulation Tissue (%) 51-75% 06/23/24 1120 Granulation Tissue Color pale/pink 06/23/24 1120 Drainage serosanguinous, moderate 06/23/24 1120 Odor (after cleansing wound) No 06/23/240 Jaye-Wound (Surrounding Skin) Edema;Erythematous 06/23/240 Wound Surface Area (cm^2) 20.3 cm^2 06/23/24 1120 Wound Volume (cm^3) 4.06 cm^3 06/23/24 1120 Alteration in Skin Integrity Anterior;Proximal;Right Leg (Active) Clinical Image 06/23/24 1118 Wound Length (cm) 3.6 cm 06/23/24 1118 Wound Width (cm) 3 cm 06/23/24 1118 Wound Depth (cm) 0.4 cm 06/23/24 111 Ulcer Thickness Full 06/23/24 1118 Yellow Fibrinous Slough (%) 51-75% 06/23/24 111 Granulation Tissue (%) 1-25% 06/23/24 111 Granulation Tissue Color pale/pink 06/23/24 1118 Drainage [...] 1112 Wound Depth (cm) 0.2 cm 06/23/24 111 Yellow Fibrinous Slough (%) 26-50% 06/23/24 111 Granulation Tissue (%) 26-50% 06/23/24 111 Granulation Tissue Color red 06/23/24 111 Drainage serosanguinous, mild 06/23/24 1112 Odor (after cleansing wound) No 06/23/24 1112 Jaye-Wound (Surrounding Skin) Edema 06/23/24 1112 Wound Surface Area (cm^2) 329.4 cm^2 06/23/24 1112 Wound Volume (cm^3) 65.88 cm^3 06/23/24 1112 Alteration in Skin Integrity Right;Posterior Popliteal (Active) Clinical Image 06/23/24 1128 Wound Length (cm) 6.5 cm 06/23/24 1128 Wound Width (cm) 1 cm 06/23/24 1128 Wound Depth (cm) 0.1 cm 06/23/24 1128 Yellow Fibrinous Slough (%) none 06/23/248 Granulation Tissue (%) 100% 06/23/241127 Granulation Tissue Color red 06/23/248 Drainage serosanguinous, mild 06/23/248 Odor (after cleansing wound) No 06/23/24 1128 Jaye-Wound (Surrounding Skin) Edema;Erythematous 06/23/241127 Wound Surface Area (cm^2) 6.5 cm^2 06/23/248 Wound Volume (cm^3) 0.65 cm^3 06/23/241127 Alteration in Skin Integrity Left Knee (Active) Clinical Image 06/23/241125 Wound Length (cm) 4 cm 06/23/241125 Wound Width (cm) 2.5 cm 06/23/241125 Wound Depth (cm) 0.2 cm 06/23/241125 Ulcer Thickness Full 06/23/241125 Yellow Fibrinous Slough (%) 1-25% 06/23/241125 Granulation Tissue (%) 51-75% 06/23/241125 Granulation Tissue Color red 06/23/241125 Drainage serous, mild 06/23/241125 Odor (after cleansing wound) No 06/23/241125 Jaye-Wound (Surrounding Skin) Edema;Erythematous 06/23/241125 Wound Surface Area (cm^2) 10 cm^2 06/23/241125 Wound Volume (cm^3) 2 cm^3 06/23/241125 The [...] Nursing Notes * Megha López LPN - 06/23/2024 10:56 [...] 10:00 AM EST Nurse Only Wound Care, [address] [address] [facility], Nurse Wound Care [address] [place] [address] [place] [address] 06/27/2024 10:30 AM EST Nurse Only Wound Care, [address] [place] [address] [facility], Nurse Wound Care [address] [place] [address] [place] [address] 07/14/2024 10:00 AM EST NeuroDiagnostic Study Neurophysiology, [address] [place] [address] Ramiro Grove, DO 200 [facility], [place] [address] 07/14/2024 11:20 AM EST Office Visit Wound Care, [address] [place] [address] Yuriy Hilario MD [address] [place] [address] 07/29/2024 11:00 AM EST Appointment Cardiac Studies, [address] [place] [address] 10/09/2024 11:30 AM EST Hospital Encounter OR [facility], Operating Room, [facility] - 4th Floor [address] [facility] [place] [address] Bigg Wetzel MD [address] [place] [address] 10/09/2024 11:30 AM EST - 10/09/2024 12:31 PM EST Surgery OR [facility], Operating Room, [facility] - 4th Floor [address] [facility] [place] [address] Bigg Wetzel MD [address] [place] [address] COLONOSCOPY FLEXIBLE PROXIMAL DIAGNOSTIC 10/24/2024 10:00 AM EDT Office Visit Cardiology, [place] [address] [facility] [place] [address] Darnell Boggs DO [address] [facility] [place] [address] Scheduled Procedures Name Priority Associated Diagnoses Date/Ti [...] this encounter Medical Devices Implanted Type Area Metal Products Fabricator Assembler Device Identifier Shelf Expiration Date Model / Serial / Lot Device Perm Cntrl [id number] - [id number] Implanted:Qty: 2 on 09/27/2015 by Sharda Ruiz, Corey Rucker MD at OR [facility] Uterus [employer] 05/03/2017 [id number] / [id number] documented as of this encounter Visit Diagnoses [...] Power of Attor benoit? No Care Teams Power House Engineer Relationship Specialty Start Date End Date Melissa Cruz PA-C [address] [address] [place] [address] PCP - General Physician Guest Services Agent 06/02/21 documented as of this encounter
--- OUTSIDE RECORDS SUMMARY | 2024-08-09 23:49 | External Medical Summary ---
Author Name Unknown Address Unknown Organization K01:[facility] - [address] [place] [address] Laboratory Report Ordering Provider Test Date Status BAUDILIO PRIDE 07/09/2024 12:55:15 Final Observation Date Value Abnormality Reference (Units ) Status Iron 07/09/2024 12:55:15 21 Below low normal 33-151 (ug/dL) Final Iron-binding capacity 07/09/2024 12:55:15 252 250-425 (ug/dL) Final Transferrin Sat % 07/09/2024 12:55:15 8 Below low normal 15-55 (%) Final Performing Location [facility]ORY [facility] - [address] [place] [address]
--- OUTSIDE RECORDS SUMMARY | 2024-08-09 23:50 | External Medical Summary | Summary of Care ---
Author Name Unknown Organization [facility] Address [address] [place] [address] Phone [phone] Care Team Providers Care Teacher Advisor Name Role Phone CarylTy mansfieldanthony Downing PA-C Primary Care Provider [phone]- [phone] Reason for Visit * Reason Comments Wound Care B/LLE Patient is acc ompanied by her friend, Lovely Encounter Details Date Type Department Care Team (Late st Contact Info) Description 06/17/2024 2:00 PM EST Nurse Only Wound Care, [facility] [address] [place] [address] [facility], Nurse Wound Care [address] [place] [address] Wound Care (B/LLE /Patient is accompanied ... Allergies Active Allergy Reactions Criticality Noted Date Comments Aspirin 01/27/2014 Increased bleeding documented as of this encounter (statuses as of 06/17/2024) Medications traZODone (DESYREL) 50 MG Tablet Take [...] DAY 90 Tablet 1 4 Active Nystatin 237159 UNIT/GM External Powder (Nystop) Apply topically to [...] as of this encounter (statuses as of 06/17/2024) Active Problems Problem Noted Date Diagnosed Date [...] as of this encounter (statuses as of 06/17/2024) Resolved Problems Problem Noted Date Diagnosed Date [...] as of this encounter (statuses as of 06/17/2024) Immunizations Name Administration Dates Next Due Pneumococcal Conjugate Vacci ne, 20-valent (Jiopaxy25) 12/04/2022 Pneumococcal Polysaccharide PPV23 (Pneumovax) 05/06/2011 Seasonal [...] Answered Alcohol Use Standard Drinks/Week Comments Yes 0 [...] No 03/10/2024 Does the household have a [facility] source [facility] income? (Household - for ages [...] Sign Reading Time Taken Comments Blood Pressure - - Pulse - - Temperature 36.5 C (97.7 F) 06/17/2024 2:47 PM ES T Respiratory Rate - - Oxygen Saturation - - Inhaled Oxygen Concentration - - Weight - - Height - - Body Mass Index - - documented in this encounter Patient Instructions * Patient Instructions* Veda Jacobson CMA - 06/17/2024 5:15 PM EST Discharge Instructions: Unna Boot You [...] Unna boot dressing that smells different than usualCompression Therapy Education: Any questions, redness or swelling around the wound and development of a temperature of 101F or greater, please contact the [facility]. Please check your toes frequently. If they become blue, purple, pale, cool, numb, and/or tingling elevate your leg higher than your heart for one hour. If you have no relief of the symptoms, cut the entire wrap off and call the [facility], . Keep the wrap dry. If the wrap slides down or bunches at the ankle, call [facility]. Elevate legs above heart for 30 minutes 2-3 times a day. documented in this encounter Nursing Notes * Veda Jacobson CMA - 06/17/2024 4:56 PM EST Spoke to Dr. Hilario due to the R/medial thigh wound tunneling Dr. Hilario advised Iodoform packing with the same treatment as before Would like patient to be seen every other day Spoke to patient regarding adjustments She will have to see if this is an arrangement that she can make with [facility] - states she will call them in the morning and inform our office Sunday at her appointment how she made out with the phone call Patient states she is not active and in fact the only time she gets out of the house is to come to her medical appointments. I asked patient if she was keeping her legs elevated and she states she tries to by putting them up on her walker or the sofa. Treatment done as ordered by Dr. Hilario Skim coat of Vaseline to B/LLE 1/4 inch iodoform packing used to pack R/medial thigh wound - 2 inch tail remains to pull packing at next dressing change. Wound bed then covered with Saline moistened gauze and 2 dry 4x4 gauze pads. Anterior ankle edges and lateral thigh edges were bolstered with rolled Kerlix to separate skin edges bilaterally. Dry 4x4 gauze applied to L/medial knee wound, R/anterior knee and R/lateral knee wounds Optifoam AG Gently applied to B/L lateral foot and Allevyn Foam Heel cup applied to bilateral feet due to increased pain from the wrap as per patient's specific request. Rolled kerlix then applied from base of toes to R/medial thigh wound and to just below the L/knee in an attempt to keep everything in place. Unna Z applied bilaterally from base of toes to just below the knee with the exception of RLE medial thigh wound included, covered with coban wrap Size J Tubi sand cutter applied at thigh level bilaterally and stretched down distally to meet unna boot. Tubi sand cutter was taped in place with 8 inch medipore paper tape. Advised patient that if she feels any type of irritation from the tape to remove it immediately Compression education was also reviewed with patient and she voiced her understanding Compression Therapy Education: Any questions, redness or swelling around the wound and development of a temperature of 101F or greater, please contact the [facility]. Please check your toes frequently. If they become blue, purple, pale, cool, numb, and/or tingling elevate your leg higher than your heart for one hour. If you have no relief of the symptoms, cut the entire wrap off and call the [facility], . Keep the wrap dry. If the wrap slides down or bunches at the ankle, call [facility]. Elevate legs above heart for 30 minutes [...] dressing that smells different than usual Assisted patient from exam chair to wheelchair safely and I pushed patient in her wheel chair to check out Advised patient to call with any questions or concerns and she voiced her understanding * Veda Jacobson CMA - 06/17/2024 3:06 PM EST Images from the original note were not included. Chief Complaint Patient presents with Wound Care B/LLE Patient is accompanied by her friend, Lovely Patient was instructed to not get up on the exam table/exam chair until directed and assisted by their provider; patient is to remain seated in the chair/ wheelchair/ exam table/ exam chair for fall prevention and safety reasons. Patient is aware to have assistance to step down off exam table/exam chair with personnel. Patient voiced full comprehension of instructions. Patient presents with [address] to the R/LE proximal medial thigh wound Patient states she is having issues keeping her dressings and wraps on they just won't stay in place. Patient states she is still using 1/4 strength vinegar spray. Friend that is along at the visit today is concerned because she doesn't have wounds covered and there are 4 cats and 2 small dogs in the home Dressing removed. Wounds then legs and feet washed with soap and water. Patient tolerated well RLE proximal medial thigh wound is now tunneling at 1:00 o'clock but denies pain to this wound Patient is complaining of increased pain to the L/medial knee wound documented in this encounter Plan of Treatment Upcoming Encounters Date Type Department Care Team (Latest Contact Info) Description 06/20/2024 10:30 AM EST Nurse Only Wound Care, [address] [address] [facility], Nurse Wound Care [address] [place] [id number] 06/23/2024 11:20 AM EST Office Visit Wound Care, [address] [address] Yuriy Hilario MD [address] [place] [address] 06/27/2024 10:30 AM EST Nurse Only Wound Care, [address] [place] [address] [facility], Nurse Wound Care [address] [place] [id number] 07/14/2024 10:00 AM EST NeuroDiagnostic Study Neurophysiology, [address] [address] [place], [address] [place] [address] 07/14/2024 11:20 AM EST Office Visit Wound Care, [address] [place] [address] Yuriy Hilario MD [address] [place] [address] 07/29/2024 11:00 AM EST Appointment Cardiac Studies, [address] [address] 10/09/2024 11:30 AM EST Hospital Encounter [facility], Operating Room, [facility] - 4th Floor [address] [place] [phone] Bigg Wetzel MD [address] [place] [address] 10/09/2024 11:30 AM EST - 10/09/2024 12:31 PM EST Surgery [facility], Operating Room, [facility] - 4th Floor [address] [address] Bigg Wetzel MD [address] [place] [address] COLONOSCOPY FLEXIBLE PROXIMAL DIAGNOSTIC 10/24/2024 10:00 AM EDT Office Visit Cardiology, [place] [address] [place] [address] Darnell Boggs DO [address] [place] [address] Scheduled Procedures Name Priority Associated Diagnoses Date/Ti [...] this encounter Medical Devices Implanted Type Area Sheet Metal Shop Foreman Device Identifier Shelf Expiration Date Model / Serial / Lot Device Perm Cntrl [id number] - [id number] Implanted:Qty: 2 on 09/27/2015 by Sharda Ruiz, Corey Rucker [facility] at [facility] [employer] 05/03/2017 [id number] / / [id number] documented as of this encounter Visit Diagnoses [...] Power of Attor benoit? No Care Teams Teacher Advisor Relationship Specialty Start Date End Date Melissa Cruz, AYLAC [address] [facility] [address] [facility] [place] [address] PCP - General Physician Steamfitter Supervisor 06/02/21 documented as of this encounter
--- OUTSIDE RECORDS SUMMARY | 2024-08-09 23:50 | External Medical Summary | Summary of Care ---
Author Name Unknown Organization [facility] Address [address] [place] [address] Phone [phone] Care Team Providers Care Kitchen Aide Name Role Phone CarylTy mansfieldanthony Downing PA-C Primary Care Provider +1- [phone] Reason for Visit * Reason Comments Follow Up B/LLE Has been using Saline wet to dry and dry rolled gauze States she has been using the 1/4 strength vinegar spray Patient presents with no dressings in place today Encounter Details Date Type Department Care Team (Late st Contact Info) Description 06/03/2024 10:40 AM EDT Office Visit Wound Care, [facility] [address] [place] [address] Yuriy Hilario MD [address] [place] [address] Multiple open wounds of lower leg, unspecified laterality, subsequent encounter*; Lymphedema Allergies Active Allergy Reactions Criticality Noted Date Comments Aspirin 01/27/2014 Increased bleeding documented as of this encounter (statuses as of 06/03/2024) Medications Medication Sig Dispensed Refills Start Date End Date Status traZODone (DESYREL) 50 MG Tablet Take 1 Tab by mouth at bedtime as needed, may repeat once for Sleep. 30 Tab 08/22/2017 Active clonazePAM 1 MG Oral Tablet (KlonoPIN) 08/12/2021 Active Albuterol Sulfate HFA 108 (90 Base) MCG/ACT Inhalation Aerosol SolutionIndications: Mild persistent asthma without complication 2 puffs every 4 hours as needed for shortness of breath/cough 18 g 2 08/29/2021 Active ARIPiprazole 15 MG Oral Tablet (Abilify) TAKE 1 TABLET BY MOUTH EVERYDAY AT BEDTIME 11/08/2021 Active lamoTRIgine 100 MG Oral Tablet (LaMICtal) 12/04/2021 Active buPROPion HCl ER (XL) 300 MG Oral Tablet Extended Release 24 Hour (Wellbutrin XL) TAKE 1 TABLET BY MOUTH EVERY DAY IN THE MORNING 10/06/2021 Active Fluticasone Propionate 50 MCG/ACT Nasal Suspension (Flonase)Indications :Acute maxillary sinusitis, recurrence not specified SPRAY 2 SPRAYS INTO EACH NOSTRIL IN THE MORNING 16 mL 09/30/2022 Active One-A-Day Womens 50 Plus Oral Tablet Take by mouth. Acti ve Furosemide 40 MG Oral Tablet (Lasix)Indications:L ymphedema Take 1 Tablet by mouth in the morning. 90 Tablet 2 07/26/2023 Active Omeprazole 20 MG Oral Capsule Delayed Release (PriLOSEC)Indication s:Gastroesophageal reflux disease without esophagitis TAKE 1 CAPSULE BY MOUTH EVERY DAY 90 Capsule 3 12/03/2023 Active Diclofenac Sodium 75 MG Oral Tablet Delayed Release (Voltaren)Indication s:Primary osteoarthritis of one knee, right TAKE BY MOUTH 1 TABLET IN THE MORNING AND 1 TABLET AT NOON AND 1 TABLET BEFORE BEDTIME. WITH FOOD.. 90 Tablet 5 12/03/2023 Active Silver sulfADIAZINE 1 % External Cream (Silvadene) Apply to open wounds daily. 400 g 1 02/08/2024 Active Diclofenac Sodium 1 % External Gel (Voltaren) Apply topically to affected area 4 times a day. 350 g 1 03/06/2024 Active Cyclobenzaprine HCl 10 MG Oral Tablet (Flexeril)Indication s:Chronic left-sided low back pain with left-sided sciatica Take 1 Tablet by mouth 3 times a day as needed for Muscle spasms. 42 Tablet 03/10/2024 Active Cetirizine HCl 10 MG Oral Tablet (ZyrTEC)Indications: Mild persistent asthma without complication TAKE 1 TABLET BY MOUTH EVERY DAY 90 Tablet 1 03/17/2024 Active Nystatin 190440 UNIT/GM External Powder (Nystop) Apply topically to affected area 3 times a day. Apply to skin folds of both lower legs at time of dressing change or daily. 60 g 3 04/16/2024 Active Potassium Chloride ER 10 MEQ Oral Tablet Extended ReleaseIndications:E jayson, unspecified type TAKE 1 TABLET BY MOUTH EVERY DAY IN THE MORNING 90 Tablet 1 04/23/2024 Active Vitamin D3 50 MCG (2000 UT) Oral CapsuleIndications:V itamin D deficiency TAKE 1 CAPSULE BY MOUTH EVERY DAY IN THE MORNING 90 Capsule 04/23/2024 Active Pregabalin 150 MG Oral Capsule (Lyrica)Indications: Neuropathy TAKE 1 CAPSULE BY MOUTH IN THE MORNING AT NOON IN THE EVENING AND BEFORE BEDTIME 120 Capsule 1 05/03/2024 Active Clotrimazole-Betamet hasone 1-0.05 % External CreamIndications:Mul tiple open wounds of lower leg, unspecified laterality, subsequent encounter Apply topically to affected area 2 times a day. Apply to lower legs once daily at time of dressing change. Avoid applying to deep wounds. 45 g 11 05/19/2024 Active Montelukast Sodium 10 MG Oral Tablet (Singulair)Indicatio ns:Mild persistent asthma without complication Take 1 Tablet by mouth at bedtime. 30 Tablet 11 05/22/2024 Active Doxycycline Monohydrate 100 MG Oral Capsule Take 1 Capsule by mouth in the morning and 1 Capsule before bedtime. Do all this for 10 days. 20 Capsule 05/30/2024 06/09/2024 Active Amoxicillin-Pot Clavulanate 875-125 MG Oral Tablet (Augmentin) Take 1 Tablet by mouth in the morning and 1 Tablet before bedtime. Do all this for 10 days. 20 Tablet 05/30/2024 06/09/2024 Active documented as of this encounter (statuses as of 06/03/2024) Active Problems Problem Noted Date Diagnosed Date [...] as of this encounter (statuses as of 06/03/2024) Resolved Problems Problem Noted Date Diagnosed Date [...] with severity to be determined 01/27/2010 03/15/2015 Overview: Per Asthma Taxonomy ICD-10 update of inactive term Obesity, morbid (more than 1 00 lbs over ideal weight or BMI > 40) 11/02/2009 03/15/2015 Overview: Per Obesity Taxonomy ICD-10 update of inactive term ADVANCE DIRECTIVE INFORMATION 12/02/2008 05/06/2018 Overview: No, Advance Directive brochure given to patient. Nadeenena 10/07/2008 02/16/2014 Abdominal pain, other specified site 09/28/2008 02/16/2014 Overview: LUQ but more constant in the L. Sided kidney area Morbid obesity, BMI not known 05/04/2006 11/02/2009 Overview: Per Obesity Taxonomy EXTRINSIC ASTHMA, UNSPEC 05/04/2006 Esophagitis 05/04/2006 03/15/2015 Overview: ICD-10 update of inactive term Major depressive disorder 05/04/2006 Overview: ICD-10 update of inactive term documented as of this encounter (statuses as of 06/03/2024) Immunizations Name Administration Dates Next Due Pneumococcal Conjugate Vacci ne, 20-valent ([id number]) 12/04/2022 Pneumococcal Polysaccharide PPV23 (Pneumovax) 05/06/2011 Seasonal [...] No 03/10/2024 Does the household have a [facility] source of income? (Household - for [...] ages 0-17 years) Not on file 03/10/2024 Sex and Gender Information Value Date Recorded Sex Assigned at Female 12/04/2022 10:26 AM EDT Gender Identity Not on file Sexual Orientation Straight 12/04/2022 10 :26 AM EDT Job Start Date Occupation Industry Not on file Not on file Not on file documented as of this encounter Patient Instructions * Patient Instructions* Venus Strong RN - 06/03/2024 11:59 AM EDT Change the wet to dry dressing on right mid leg wound daily, continue vinegar solution to skin folds no under wraps. Remove wraps if they slid down or become positioned such that they apply pressure to wounds Continue antibiotics as directed until completed. documented in this encounter Progress Notes * Yuriy Hilario MD - 06/03/2024 11:12 AM EDT Images from the original note were not included. WOUND OUTPATIENT FOLLOW-UP NOTE DOS: 06/03/2024 CC: Follow-up HPI: Mica Jimenez returns for follow-up of bilateral lower leg wounds. In the interim betweenvisits, she was seen at [facility] ER and prescribed antibiotics. Her wounds have since been improving. Current dressing: See Wound Assessment Dressing change [...] Skin Integrity Proximal;Right;Medial Leg (Active) Clinical Image 06/03/24 1043 Wound Length (cm) 6 cm 06/03/24 1043 Wound Width (cm) 3.3 cm 06/03/24 1043 Wound Depth (cm) 0.7 cm 06/03/24 1043 Ulcer Thickness Full 06/03/24 1043 Yellow Fibrinous Slough (%) 51-75% 06/03/24 1043 Granulation Tissue (%) 26-50% 06/03/24 1043 Granulation Tissue Color red 06/03/24 1043 Deep Supporting Structure Exposed None 06/03/24 1043 Drainage serous, moderate 06/03/24 1043 Odor (after cleansing wound) No 06/03/24 1043 Jaye-Wound (Surrounding Skin) Edema 06/03/24 1043 Wound Surface Area (cm^2) 19.8 cm^2 06/03/24 1043 Wound Volume (cm^3) 13.86 cm^3 06/03/24 1043 Alteration in Skin Integrity Lower;Right;Proximal;Anterior Leg (Active) Clinical Image 06/03/24 1036 Wound Length (cm) 4.5 cm 06/03/24 1036 Wound Width (cm) 3 cm 06/03/24 1036 Wound Depth (cm) 0.5 cm 06/03/24 1036 Ulcer Thickness Full 06/03/24 1036 Yellow Fibrinous Slough (%) 100% 06/03/24 1036 Drainage serous, moderate 06/03/24 1036 Wound Surface Area (cm^2) 13.5 cm^2 06/03/24 1036 Wound Volume (cm^3) 6.75 cm^3 06/03/24 103 Alteration in Skin Integrity Anterior;Distal;Left;Lower Leg (Active) Clinical Image 06/03/24 1029 Alteration in Skin Integrity Left;Medial Knee (Active) Clinical Image 06/03/24 1033 Wound Length (cm) 5.4 cm 06/03/24 1033 Wound Width (cm) 3.9 cm 06/03/24 1033 Wound Depth (cm) 0.3 cm 06/03/243 Ulcer Thickness Full 06/03/24 1033 Yellow Fibrinous Slough (%) 51-75% 06/03/24 103 Granulation Tissue (%) 1-25% 06/03/241032 Granulation Tissue Color red 06/03/241032 Deep Supporting Structure Exposed None 06/03/24 1033 Drainage serous, moderate 06/03/243 Wound Surface Area (cm^2) 21.06 cm^2 06/03/243 Wound Volume (cm^3) 6.318 cm^3 06/03/241032 Alteration in Skin Integrity Proximal;Left;Medial Leg (Active) Clinical Image 06/03/24 1034 Wound Length (cm) 2 cm 06/03/244 Wound Width (cm) 1 cm 06/03/244 Wound Depth (cm) 0.1 cm 06/03/24 1034 Granulation Tissue Color red 06/03/24 1034 Drainage serous, mild 06/03/24 1034 Odor (after cleansing wound) No 06/03/244 Jaye-Wound (Surrounding Skin) Edema 06/03/24 1034 Wound Surface Area (cm^2) 2 cm^2 06/03/24 1034 Wound Volume (cm^3) 0.2 cm^3 06/03/24 1034 Alteration in Skin Integrity Anterior;Left Knee (Active) Alteration in Skin Integrity Left;Medial Knee (Active) Alteration in Skin Integrity Lower;Right;Medial Leg (Active) Clinical Image 06/03/24 1038 Wound Length (cm) 5.7 cm 06/03/24 1038 Wound Width (cm) 3.4 cm 06/03/24 1038 Wound Depth (cm) 0.3 cm 06/03/24 1038 Ulcer Thickness Full 06/03/24 1038 Yellow Fibrinous Slough (%) 51-75% 06/03/24 1038 Granulation Tissue (%) 1-25% 06/03/24 1038 Granulation Tissue Color pale/pink 06/03/24 1038 Drainage serous, heavy 06/03/24 1038 Odor (after cleansing wound) No 06/03/24 1038 Jaye-Wound (Surrounding Skin) Edema;Erythematous 06/03/24 1038 Wound Surface Area (cm^2) 19.38 cm^2 06/03/24 1038 Wound Volume (cm^3) 5.814 cm^3 06/03/24 1038 Alteration in Skin Integrity Anterior;Proximal;Right Leg (Active) Clinical Image 06/03/24 1039 Wound Length (cm) 11.5 cm 06/03/24 1039 Wound Width (cm) 8 cm 06/03/24 1039 Wound Depth (cm) 2.2 cm 06/03/24 1039 Undermining (cm) 2.2 06/03/24 1039 Ulcer Thickness Full 06/03/24 1039 Yellow Fibrinous Slough (%) 51-75% 06/03/24 1039 Necrotic Tissue (%) 1-25% 06/03/249 Necrotic Tissue Color Wells/brown 06/03/24 1039 Drainage serous, heavy 06/03/24 1039 Odor (after cleansing wound) No 06/03/24 1039 Wound Surface Area (cm^2) 92 cm^2 06/03/24 1039 Wound Volume (cm^3) 202.4 cm^3 06/03/24 1039 Alteration in Skin Integrity Anterior;Distal;Lower;Right Leg (Active) Clinical Image 06/03/24 1036 Wound Length (cm) 0 cm 06/03/24 1036 Wound Width (cm) 0 cm 06/03/24 1036 Wound Depth (cm) 0 cm 06/03/24 1036 Wound Surface Area (cm^2) 0 cm^2 06/03/24 1036 Wound Volume (cm^3) 0 cm^3 06/03/24 1036 Alteration in Skin Integrity Right;Lateral;Proximal Thigh (Active) Clinical Image 06/03/24 1044 Wound Length (cm) 29 cm 06/03/24 1044 Wound Width (cm) 14.7 cm 06/03/24 1044 Wound Depth (cm) 0.2 cm 06/03/24 1044 Ulcer Thickness Full 06/03/244 Deep Supporting Structure Exposed None 06/03/24 1044 Drainage serous, heavy 06/03/24 1044 Odor (after cleansing wound) No 06/03/24 1044 Jaye-Wound (Surrounding Skin) Edema;Erythematous 06/03/24 1044 Wound Surface Area (cm^2) 426.3 cm^2 06/03/24 1044 Wound Volume (cm^3) 85.26 cm^3 06/03/24 1044 Alteration in Skin Integrity Right;Posterior Popliteal (Active) Alteration in Skin Integrity Left Knee (Active) Clinical Image 06/03/24 1030 Wound Length (cm) 5.5 cm 06/03/24 1030 Wound Width (cm) 3 cm 06/03/24 1030 Wound Depth (cm) 0.1 cm 06/03/24 1030 Ulcer Thickness Full 06/03/24 1030 Yellow Fibrinous Slough (%) 100% 06/03/24 103 Deep Supporting Structure Exposed None 06/03/24 1030 Drainage serous, moderate 06/03/24 1030 Odor (after cleansing wound) No 06/03/24 1030 Jaye-Wound (Surrounding Skin) Edema;Erythematous 06/03/24 1030 Wound Surface Area (cm^2) 16.5 cm^2 06/03/24 1030 Wound Volume (cm^3) 1.65 cm^3 06/03/24 1030 The right mid-leg medial wound is larger and deeper, however, the character has improved in that there is more granulation tissue and epithelialization at the edges. Assessment & Plan ASSESSMENT: No diagnosis found. PLAN: Unna boots. Saline wet-to-dry dressings to right medial mid leg wound. Follow Up: Return in about 2 weeks (around 06/17/2024). I spent a total of 20-29 minutes (exact time 20 mins) on the date of service in preparation, delivery, and documentation of the care provided to Mica Jimenez excluding any time spent in the performance of separately billed services or time spent by another provider/QHP. Lillian Hilario MD documented in this encounter Nursing Notes * Venus Strong RN - 06/03/2024 11:51 AM EDT Applied NS moistened gauze dressing to right medial mid leg wound, covered with ABD. Wounds on lower legs applied vaseline and DSD. Zinc unnaboots applied to bilateral lower legs. Kerlix rolled gauzeto skin folds. Patient instructed to change the wet to dry dressing on right mid leg wound daily, continue vinegar solution to skin folds no under wraps. Instructed her to remove wraps if they slid down or become positioned such that they apply pressure to wounds. Patient verbalized understanding. * Veda Jacobson CMA - 06/03/2024 10:21 AM EDT Chief Complaint Patient presents with Follow Up B/LLE Has been using Saline wet to dry and dry rolled gauze States she has been using the 1/4 strength vinegar spray Patient presents with no dressings in place today Patient was instructed to not get up on the exam table/exam chair until directed and assisted by their provider; patient is to remain seated in the chair/ wheelchair/ exam table/ exam chair for fall prevention and safety reasons. Patient is aware to have assistance to step down off exam table/exam chair with personnel. Patient voiced full comprehension of instructions. Wounds then legs and feet washed with soap and water and towel dried. Patient tolerated well. documented in this encounter Plan of Treatment Upcoming Encounters Date Type Department Care Team (Latest Contact Info) Description 06/05/2024 11:30 AM EDT Nurse Only Wound Care, [address] [place] [address] [facility], Nurse Wound Care [address] [facility] [place] [address] 06/10/2024 10:30 AM EST Nurse Only Wound Care, [address] [place] [address] [facility], Nurse Wound Care [address] [facility] [place] [address] 06/13/2024 10:30 AM EST Nurse Only Wound Care, [address] [place] [address] [facility], Nurse Wound Care [address] [place] [address], [place] [address] 06/17/2024 10:30 AM EST Nurse Only Wound Care, [address], [place] [address] [facility], Nurse Wound Care [address] [place] [address], [place] [address] 06/20/2024 10:30 AM EST Nurse Only Wound Care, [address] [place] [address] [facility], Nurse Wound Care [address] [place] [address], [place] [address] 06/23/2024 11:20 AM EST Office Visit Wound Care, [address] [place] [address] Yuriy Hilario MD 27 [place] [address] 06/27/2024 10:30 AM EST Nurse Only Wound Care, [address], [place] [address] [facility], Nurse Wound Care [address] [place] [address], [place] [address] 07/14/2024 10:00 AM EST NeuroDiagnostic Study Neurophysiology, [address], [place] [address] Ramiro Grove, DO [facility], [place] [address] 07/14/2024 11:20 AM EST Office Visit Wound Care, [address] [address] Yuriy Hilario MD [address] [place] [address] 07/29/2024 11:00 AM EST Appointment Cardiac Studies, [address] [address] 09/15/2024 10:00 AM EST Office Visit Cardiology, [address] [address] Anna Adames MD [address] [place] [address] 10/09/2024 11:30 AM EST Hospital Encounter OR GL, Operating Room, [facility] - 4th Floor [address] [place] [address] [place] [address] Bigg Wetzel MD [address] [address] 10/09/2024 11:30 AM EST - 10/09/2024 12:31 PM EST Surgery OR [facility], Operating Room, [facility] Floor [address] [place], [place] [address] [address] Bigg Wetzel MD [address] [place] [address] COLONOSCOPY FLEXIBLE PROXIMAL DIAGNOSTIC Scheduled Procedures Name Priority Associated Diagnoses Date/Ti md COLONOSCOPY FLEXIBLE PROXIMAL DIAGNOSTIC Screening for colon [...] this encounter Medical Devices Implanted Type Area Telephone Repairer Device Identifier Shelf Expiration Date Model / Serial / Lot Device Perm Cntr [id number] - [id number] Implanted:Qty: 2 on 09/27/2015 by Sharda Ruiz, Corey Rucker MD at OR [facility] Uter[employer] 05/03/2017 [id number] / / [id number] documented as of this encounter Visit Diagnoses [...] Power of Attor benoit? No Care Teams Kitchen Aide Relationship Specialty Start Date End Date Melissa Cruz PA-C [address] [address] [place] [address] PCP - General Physician Equipment Service Technician 06/02/21 documented as of this encounter
--- OUTSIDE RECORDS SUMMARY | 2024-08-09 23:50 | External Medical Summary | Summary of Care ---
Author Name Unknown Organization [facility] Address [address] [place] [address] Phone [phone] Care Team Providers Care Press Box Custodian Name Role Phone CarylMelissa mansfield Jair FONSECA Primary Care Provider +1- [phone] Reason for Visit * Reason Onset Date Comments Advice 05/23/2024 Encounter Details Date Type Department Care Team ([facility] st Contact Info) Description 05/23/2024 Telephone Wound Care, [facility] [address] [place], [place] [id number] Yuriy Hilario MD [address] [place] [address] Advice Allergies Active Allergy Reactions Criticality Noted Date Comments Aspirin 01/27/2014 Increased bleeding documented as of this encounter (statuses as of 06/16/2024) Medications traZODone (DESYREL) 50 MG Tablet Take [...] DAY 90 Tablet 1 4 Active Nystatin 740898 UNIT/GM External Powder (Nystop) Apply topically to [...] as of this encounter (statuses as of 06/16/2024) Active Problems Problem Noted Date Diagnosed Date [...] as of this encounter (statuses as of 06/16/2024) Resolved Problems Problem Noted Date Diagnosed Date [...] as of this encounter (statuses as of 06/16/2024) Immunizations Name Administration Dates Next Due Pneumococcal Conjugate Vacci ne, 20-valent ([id number]) 12/04/2022 Pneumococcal Polysaccharide PPV23 (Pneumovax) 05/06/2011 Seasonal [...] encounter Miscellaneous Notes * Telephone Encounter - Veda Jacobson CMA - 06/16/2024 4:31 PM EST Patient is scheduled tomorrow And continues to come twice weekly * Telephone Encounter - Yuriy Hilario MD - 06/16/2024 3:19 PM EST Bring patient in to evaluate and redo wraps. * Telephone Encounter - Vanessa Odonnell OSA - 06/16/2024 10:47 AM EST Good morning, Pt roommate deonna calling in she wanted to inform Micas wound care dr that the pts wound carebandages are falling off and she's not redressing them she's just letting them go. She's very concerned and worried about possible infection. Wants to make someone aware. Please advise * Telephone Encounter - Megha López LPN - 05/23/2024 3:45 PM EDT Phone call this date from Mica to establish appointments per CARs schedule as per Mica only in [place] between 10AM and 12NOON -- Scheduled per her need on SundayMay 27 at Noon for nurse visit. Thanked me for being understanding and is aware of need for 2 nurse visits weekly and seeing every 3rd week. documented in this encounter Plan of Treatment Upcoming Encounters Date Type Department Care Team (Latest Contact Info) Description 06/17/2024 10:30 AM EST Nurse Only Wound Care, [address] [address] [facility], Nurse Wound Care [address] [place] [address] 06/20/2024 10:30 AM EST Nurse Only Wound Care, [address] [place] [address] [facility], Nurse Wound Care [address] [place] [address] [place] [address] 06/23/2024 11:20 AM EST Office Visit Wound Care, [address] [place] [address] Yuriy Hilario MD [address] [place], [place] [address] [place] [address] 06/27/2024 10:30 AM EST Nurse Only Wound Care, [address] [place] [address] [facility], Nurse Wound Care [address] [place], [place] [address] [address] 07/14/2024 10:00 AM EST NeuroDiagnostic Study Neurophysiology, [address] [address] Ramiro Grove, DO [address] [place] [address] 07/14/2024 11:20 AM EST Office [address] Wound Care, [address] [address] Yuriy Hilario MD 27 [place] [address] 07/29/2024 11:00 AM EST Appointment Cardiac Studies, [address] [place] [address] 10/09/2024 11:30 AM EST Hospital Encounter OR GL, Operating Room, [facility] Floor [address] [place], [place] [address] [address] Bigg Wetzel MD [address] [place] [address] 10/09/2024 11:30 AM EST - 10/09/2024 12:31 PM EST Surgery OR [facility], Operating Room, [facility] Floor [address] [place] [address] [place] [address] Bigg Wetzel MD [address] [place] [address] COLONOSCOPY FLEXIBLE PROXIMAL DIAGNOSTIC 10/24/2024 10:00 AM EDT Office [address] Cardiology, [address] [address] Darnell Boggs DO [address] [facility] [address] Scheduled Procedures Name Priority Associated Diagnoses Date/Ti [...] this encounter Medical Devices Implanted Type Area Disaster Recovery Manager Device Identifier Shelf Expiration Date Model / Serial / Lot Device Perm Cntrl [id number] - [id number] Implanted:Qty: 2 on 09/27/2015 by Sharda Ruiz, Corey Rucker MD at OR [facility] Uter[employer] 05/03/2017 [id number] / / [id number] documented as of this encounter Additional Health [...] Power of Attor benoit? No Care Teams Press Box Custodian Relationship Specialty Start Date End Date Melissa Cruz PA-C [address] [facility] [address] [place] [address] PCP - General Physician Optical Manufacturing Technician 06/02/21 documented as of this encounter
--- OUTSIDE RECORDS SUMMARY | 2024-08-09 23:50 | External Medical Summary | Summary of Care ---
Author Name Unknown Organization [facility] Address [address] [place] [address] Phone [phone] Care Team Providers Care Accounting Bookkeeper Name Role Phone CarylMelissa mansfield Chang FONSECA Primary Care Provider +1- [phone] Reason for Visit * Reason Comments Wound Care B/LLE Encounter Details Date Type Department Care Team ([facility] st Contact Info) Description 06/10/2024 11:30 AM EST Nurse Only Wound Care, [facility] [address] [place] [address] [facility], Nurse Wound Care [address] [place] [address] Wound Care (B/LLE ) Allergies Active Allergy Reactions Criticality Noted Date Comments Aspirin 01/27/2014 Increased bleeding documented as of this encounter (statuses as of 06/10/2024) Medications Medication Sig Dispensed Refills Start Date End Date Status traZODone (DESYREL) 50 MG Tablet Take 1 Tab by mouth at bedtime as needed, may repeat once for Sleep. 30 Tab 08/22/2017 Active clonazePAM 1 MG Oral Tablet (KlonoPIN) 08/12/2021 Active Albuterol Sulfate HFA 108 (90 Base) MCG/ACT Inhalation Aerosol SolutionIndications:M ild persistent asthma without complication 2 puffs every [...] Active Fluticasone Propionate 50 MCG/ACT Nasal Suspension (Flonase)Indications: Acute maxillary sinusitis, recurrence not specified SPRAY 2 SPRAYS INTO EACH NOSTRIL IN THE MORNING 16 mL 09/30/2022 Active One-A-Day Womens 50 Plus Oral Tablet Take by mouth. Acti ve Furosemide 40 MG Oral Tablet (Lasix)Indications:Ly mphedema Take 1 Tablet by mouth in the morning. 90 Tablet 2 07/26/2023 Active Omeprazole 20 MG Oral Capsule Delayed Release (PriLOSEC)Indications :Gastroesophageal reflux disease without esophagitis TAKE 1 CAPSULE BY MOUTH EVERY DAY 90 Capsule 3 12/03/2023 Active Diclofenac Sodium 75 MG Oral Tablet Delayed Release (Voltaren)Indications :Primary osteoarthritis of one knee, right TAKE BY [...] Active Cyclobenzaprine HCl 10 MG Oral Tablet (Flexeril)Indications :Chronic left-sided low back pain with left-sided sciatica Take 1 Tablet by mouth 3 times a day as needed for Muscle spasms. 42 Tablet 03/10/2024 Active Cetirizine HCl 10 MG Oral Tablet (ZyrTEC)Indications:M ild persistent asthma without complication TAKE 1 TABLET BY MOUTH EVERY DAY 90 Tablet 1 03/17/2024 Active Nystatin 019545 UNIT/GM External Powder (Nystop) Apply topically to affected area 3 times a day. Apply to skin folds of both lower legs at time of dressing change or daily. 60 g 3 04/16/2024 Active Potassium Chloride ER 10 MEQ Oral Tablet Extended ReleaseIndications:Ed erik, unspecified type TAKE 1 TABLET BY MOUTH EVERY DAY IN THE MORNING 90 Tablet 1 04/23/2024 Active Vitamin D3 50 MCG (1999 UT) Oral CapsuleIndications:Vi tamin D deficiency TAKE 1 CAPSULE BY MOUTH EVERY DAY IN THE MORNING 90 Capsule 04/23/2024 Active Pregabalin 150 MG Oral Capsule (Lyrica)Indications:N europathy TAKE 1 CAPSULE BY MOUTH IN THE MORNING AT NOON IN THE EVENING AND BEFORE BEDTIME 120 Capsule 1 05/03/2024 Active Clotrimazole-Betameth asone 1-0.05 % External CreamIndications:Mult iple open wounds of lower leg, unspecified laterality, subsequent encounter Apply topically to affected area 2 times a day. Apply to lower legs once daily at time of dressing change. Avoid applying to deep wounds. 45 g 11 05/19/2024 Active Montelukast Sodium 10 MG Oral Tablet (Singulair)Indication s:Mild persistent asthma without complication Take 1 Tablet by mouth at bedtime. 30 Tablet 11 05/22/2024 Active documented as of this encounter (statuses as of 06/10/2024) Active Problems Problem Noted Date Diagnosed Date [...] as of this encounter (statuses as of 06/10/2024) Resolved Problems Problem Noted Date Diagnosed Date [...] as of this encounter (statuses as of 06/10/2024) Immunizations Name Administration Dates Next Due Pneumococcal Conjugate Vacci ne, 20-valent ([id number]) 12/04/2022 Pneumococcal Polysaccharide PPV23 (Pneumovax) 05/06/2011 Seasonal [...] this encounter Patient Instructions * Patient Instructions* Vdea Jacobson CMA - 06/10/2024 1:04 PM EST Compression Therapy Education: Any questions, redness or swelling around the wound and development of a temperature of 101F or greater, please contact the [facility]. Please check your toes frequently. If they become blue, purple, pale, cool, numb, and/or tingling elevate your leg higher than your heart for one hour. If you have no relief of the symptoms, cut the entire wrap off and call the [facility], . Keep the wrap dry. If the wrap slides down or bunches at the ankle, call The [facility]. Elevate legs above heart for 30 minutes 2-3 times a day. documented in this encounter Nursing Notes * Veda Jacobson CMA - 06/10/2024 12:55 PM EST Treatment done as ordered by Dr. Hilario Vaseline applied to feet and dry areas. Applied NS moistened gauze 4x4 and 1 dry 4x4 gauze to R/medial mid leg wound and covered with ABD pad. Kerlix rolled gauze bolstered to skin folds to separate edges. Zinc unna boots applied to B/LLE and covered with coban wrap. Size 7 Surgilast applied B/LLE.Socks and shoes applied. Patient was instructed to change wtd dressing on R/medial mid leg wound daily, continue using 1/4 strength vinegar solution to skin folds. Reminded patient that if her wraps slide down especially if it has rolled into the wound bed to remove the wrap and call our office. Advised patient as previously instructed by physician to elevate legs multiple times throughout the day. Compression education was reviewed with patient Compression Therapy Education: Any questions, redness or swelling around the wound and development of a temperature of 101F or greater, please contact the [facility]. Please check your toes frequently. If they become blue, purple, pale, cool, numb, and/or tingling elevate your leg higher than your heart for one hour. If you have no relief of the symptoms, cut the entire wrap off and call the [facility], . Keep the wrap dry. If the wrap slides down or bunches at the ankle, call [facility]. Elevate legs above heart for 30 minutes 2-3 times a day. Patient voiced her understanding Assisted patient from exam chair to wheel chair safely and escorted patient to check out. * Veda Jacobson CMA - 06/10/2024 11:36 AM EST Images from the original note [...] Patient voiced full comprehension of instructions. Patient present with LLE unna boot removed - which she took off Sunday RLE Unna boot has slid down to mid calf and patient presents with wounds uncovered - patient statesshe removed the dressing this morning Patient states she is still using the 1/4 strength vinegar spray Shoes removed RLE unna boot removed Wounds then legs and feet washed with soap and water and towel dried. Patient tolerated ok documented in this encounter Plan of Treatment Upcoming Encounters Date Type Department Care Team (Latest Contact Info) Description 06/13/2024 10:30 AM EST Nurse Only Wound Care, [address] [place] [address] [facility], Nurse Wound Care [address] [place] [address] 06/17/2024 10:30 AM EST Nurse Only Wound Care, [address] [address] [facility], Nurse Wound Care [address] [place] [address] 06/20/2024 10:30 AM EST Nurse Only Wound Care, [address] [address] [facility], Nurse Wound Care [address] [place] [address] 06/23/2024 11:20 AM EST Office Visit Wound Care, [address] [place] [address] Yuriy Hilario MD [address] [place] [address] 06/27/2024 10:30 AM EST Nurse Only Wound Care, [address] [place] [address] [facility], Nurse Wound Care [address] [place] [address] 07/14/2024 10:00 AM EST NeuroDiagnostic Study Neurophysiology, [address] [place] [address] Ramiro [place], DO 200 [facility], [place] [address] 07/14/2024 11:20 AM EST Office Visit Wound Care, [address] [place] [address] Yuriy Hilario MD [address] [place] [address] 07/29/2024 11:00 AM EST Appointment Cardiac Studies, [address] [place] [address] 10/09/2024 11:30 AM EST Hospital Encounter OR [facility], Operating Room, [facility] - 4th Floor [address] [facility] [place] [address] Bigg Wetzel MD [address] [place] [address] 10/09/2024 11:30 AM EST - 10/09/2024 12:31 PM EST Surgery OR [facility], Operating Room, [facility] Floor [address] [facility] [place] [address] Bigg Wetzel MD [address] [place] [address] COLONOSCOPY FLEXIBLE PROXIMAL DIAGNOSTIC Scheduled Procedures Name [...] this encounter Medical Devices Implanted Type Area Channel Sales Director Device Identifier Shelf Expiration Date Model / Serial / Lot Device Perm Cntrl [id number] - [id number] Implanted:Qty: 2 on 09/27/2015 by Sharda Ruiz, Corey Rucker MD at OR [facility] Uter[employer] 05/03/2017 [id number] / / [id number] documented as of this encounter Visit Diagnoses [...] Power of Attor benoit? No Care Teams Accounting Bookkeeper Relationship Specialty Start Date End Date Melissa Cruz PA-C [address] [facility] [address] [place] [address] PCP - General Physician Optical Engineering Technician 06/02/21 documented as of this encounter
--- OUTSIDE RECORDS SUMMARY | 2024-08-09 23:50 | External Medical Summary | Summary of Care ---
Author Name Unknown Organization [facility] Address [address] [place] [address] Phone [phone] Care Team Providers Care Stove Cleaner Name Role Phone CarylMelissa mansfield Chang FONSECA Primary Care Provider +1- [phone] Reason for Visit * Reason Comments Wound Care B/LLE Encounter Details Date Type Department Care Team ([facility] st Contact Info) Description 06/10/2024 11:30 AM EST Nurse Only Wound Care, [facility] [address] [place] [address] [facility], Nurse Wound Care [address] [place] [address] Wound Care (B/LLE ) Allergies Active Allergy [...] DAY 90 Tablet 1 03/17/2024 Active Nystatin 915426 UNIT/GM External Powder (Nystop) Apply topically to [...] Next Due Pneumococcal Conjugate Vacci ne, 20-valent ([id number]) 12/04/2022 Pneumococcal Polysaccharide PPV23 (Pneumovax) 05/06/2011 Seasonal [...] * Patient Instructions* Veda Jacobson CMA - 06/10/2024 1:04 PM EST Compression Therapy Education: Any questions, redness or swelling around the wound and development of a temperature of 101F or greater, please contact the [facility]. Please check your toes frequently. If they become blue, purple, pale, cool, numb, and/or tingling elevate your leg higher than your heart for one hour. If you have no relief of the symptoms, cut the entire wrap off and call the [facility], . Keep the wrap dry. If the wrap slides down or bunches at the ankle, call [facility]. Elevate legs above heart for 30 minutes [...] or greater, please contact the [facility]. Please check your toes frequently. If they become blue, purple, pale, cool, numb, and/or tingling elevate your leg higher than your heart for one hour. If you have no relief of the symptoms, cut the entire wrap off and call the [facility], . Keep the wrap dry. If the wrap slides down or bunches at the ankle, call [facility]. Elevate legs above heart for 30 minutes [...] AM EST Nurse Only Wound Care, [address] [place] [address] [facility], Nurse Wound Care [address] [place] [address] 06/17/2024 10:30 AM EST Nurse Only Wound Care, [address] [address] [facility], Nurse Wound Care [address] [place] [address] 06/20/2024 10:30 AM EST Nurse Only Wound Care, [address] [address] [facility], Nurse Wound Care [address] [place] [address] 06/23/2024 11:20 AM EST Office Visit Wound Care, [address] [place] [address] Yuriy Hilario MD [address] [place] [address] 06/27/2024 10:30 AM EST Nurse Only Wound Care, [address] [place] [address] [facility], Nurse Wound Care [address] [place] [address] 07/14/2024 10:00 AM EST NeuroDiagnostic Study Neurophysiology, [address] [place] [address] Ramiro [place], DO 200 [facility], [place] [address] 07/14/2024 11:20 AM EST Office Visit Wound Care, [address] [place] [address] Yuriy Hilario MD [address] [place] [address] 07/29/2024 11:00 AM EST Appointment Cardiac Studies, [address] [place] [address] 10/09/2024 11:30 AM EST Hospital Encounter OR [facility], Operating Room, [facility] - 4th Floor [address] [facility] [place] [address] Bigg Wetzel MD [address] [facility] [address] 10/09/2024 11:30 AM EST - 10/09/2024 12:31 PM EST Surgery OR [facility], Operating Room, [facility] Floor [address] [facility] [place] [address] Bigg Wetzel MD [address] [place] [address] COLONOSCOPY FLEXIBLE PROXIMAL DIAGNOSTIC Scheduled Procedures Name [...] this encounter Medical Devices Implanted Type Area Patient Care Secretary Device Identifier Shelf Expiration Date Model / Serial / Lot Device Perm Cntrl [id number] - [id number] Implanted:Qty: 2 on 09/27/2015 by Sharda Ruiz, Corey Rucker MD at OR [facility] Uter[employer] 05/03/2017 [id number] / / [id number] documented as of this encounter Visit Diagnoses [...] Power of Attor benoit? No Care Teams Stove Cleaner Relationship Specialty Start Date End Date Melissa Cruz PA-C [address] [facility] [address] [place] [address] PCP - General Physician Electrical Instrument Repairer 06/02/21 documented as of this encounter
--- OUTSIDE RECORDS SUMMARY | 2024-08-09 23:50 | External Medical Summary | Summary of Care ---
Author Name Unknown Organization [facility] Address [address] [place] [address] Phone [phone] Care Team Providers Care Land Survey Technician Name Role Phone CarylMelissa mansfield Chang FONSECA Primary Care Provider +1- [phone] Reason for Visit * Reason Onset Date Comments Advice 05/23/2024 Encounter Details Date Type Department Care Team ([facility] st Contact Info) Description 05/23/2024 Telephone Wound Care, [facility] [address] [place], [place] [id number] Yuriy Hilario MD [address] [place] [address] Advice Allergies Active Allergy Reactions [...] DAY 90 Tablet 1 4 Active Nystatin 756141 UNIT/GM External Powder (Nystop) Apply topically to [...] Next Due Pneumococcal Conjugate Vacci ne, 20-valent ([id number]) 12/04/2022 Pneumococcal Polysaccharide PPV23 (Pneumovax) 05/06/2011 Seasonal [...] encounter Miscellaneous Notes * Telephone Encounter - Yuriy Hilario MD - 06/16/2024 3:19 PM EST Bring patient in to evaluate and redo wraps. * Telephone Encounter - Vanessa Odonnell OSA - 06/16/2024 10:47 AM EST Good morning, Pt roommate deonna calling in she wanted to inform Juan wound care that the pts wound carebandages are falling off and she's not redressing them she's just letting them go. She's very concerned and worried about possible infection. Wants to make someone aware. Please advise * Telephone Encounter - Megha López LPN - 05/23/2024 3:45 PM EDT Phone call this date from Mica to establish appointments per CARs schedule as per Mica only in [place] between 10AM and 12NOON -- Scheduled per [...] AM EST Nurse Only Wound Care, [address] [address] [facility], Nurse Wound Care [address] [place], [place] [address] [address] 06/20/2024 10:30 AM EST Nurse Only Wound Care, [address] [address] [facility], Nurse Wound Care [address] [place], [place] [address] [address] 06/23/2024 11:20 AM EST Office Visit Wound Care, [address] [address] Yuriy [facility]ilario [facility] [address] [facility] [address] 06/27/2024 10:30 AM EST Nurse Only Wound Care, [address] [address] [facility], Nurse Wound Care [address] [place], [place] [address] [address] 07/14/2024 10:00 AM EST NeuroDiagnostic Study Neurophysiology, [place] [facility] [address] Rami[place], DO 200 [facility] [address] 07/14/2024 11:20 AM EST Office Visit Wound Care, [address] [place] [address] Yuriy Hilario MD [address] [place] [address] 07/29/2024 11:00 AM EST Appointment Cardiac Studies, [address] [place] [address] 10/09/2024 11:30 AM EST Hospital Encounter OR [facility], Operating Room, [facility] - 4th Floor [address] [place] [address] [place] [address] Bigg Wetzel MD [address] [place] [address] 10/09/2024 11:30 AM EST - 10/09/2024 12:31 PM EST Surgery OR [facility], Operating Room, [facility] - 4th Floor [address] [place] [address] [place] [address] Bigg Wetzel MD [address] [place] [address] COLONOSCOPY FLEXIBLE PROXIMAL DIAGNOSTIC 10/24/2024 10:00 AM EDT Office Visit Cardiology, [place] 400 [facility] [place] [address] Darnell Boggs DO 400 [facility] [place] [address] Scheduled Procedures Name Priority Associated Diagnoses Date/Ti [...] this encounter Medical Devices Implanted Type Area Superintendent Tests Device Identifier Shelf Expiration Date Model / Serial / Lot Device Perm Cntrl [id number] - [id number] Implanted:Qty: 2 on 09/27/2015 by Corey Robin Jr., MD at OR [facility] Uter[employer] 05/03/2017 [id number] / / [id number] documented as of this encounter Additional Health [...] Power of Attor benoit? No Care Teams Land Survey Technician Relationship Specialty Start Date End Date Melissa Cruz PA-C [address] [place] [address] [place] [address] PCP - General Physician Lead Nuclear Medicine Technologist 06/02/21 documented as of this encounter
--- OUTSIDE RECORDS SUMMARY | 2024-08-09 23:50 | External Medical Summary | Summary of Care ---
Author Name Unknown Organization [facility] Address [address] [place] [address] Phone [phone] Care Team Providers Care Tennis Player Name Role Phone CarylTy mansfieldanthony Adam PA-C Primary Care Provider +1- [phone] Reason for Visit * Reason Comments Wound Care Wounds -- BLE -- Encounter Details Date Type Department Care Team (Late Contact Info) Description 06/13/2024 10:30 AM EST Nurse Only Wound Care, [facility] [address] [place] [address] [facility], Nurse Wound Care [address] [place] [address] Wound Care (Wounds -- BLE -- ) Allergies Active Allergy Reactions Criticality Noted Date Comments Aspirin 01/27/2014 Increased bleeding documented as of this encounter (statuses as of 06/13/2024) Medications traZODone (DESYREL) 50 MG Tablet Take [...] DAY 90 Tablet 1 4 Active Nystatin 769678 UNIT/GM External Powder (Nystop) Apply topically to [...] as of this encounter (statuses as of 06/13/2024) Active Problems Problem Noted Date Diagnosed Date [...] as of this encounter (statuses as of 06/13/2024) Resolved Problems Problem Noted Date Diagnosed Date [...] as of this encounter (statuses as of 06/13/2024) Immunizations Name Administration Dates Next Due Pneumococcal Conjugate Vacci ne, 20-valent ([id number]) 12/04/2022 Pneumococcal Polysaccharide PPV23 (Pneumovax) 05/06/2011 Seasonal [...] Patient Instructions * Patient Instructions* Megha López', COAT JOINER LOCKSTITCH - 06/13/2024 10:29 AM EST Discharge Instructions: Unna Boot You [...] Nursing Notes * Megha López LPN - 06/13/2024 10:40 AM EST Assisted to sit on exam seating aware to not rise unassisted for her safety. Unna boots removed after wearing only 1.5 days due to lacking tolerance. Too tight on Right and slid to ankle on left. Upon entrance for care this date no dressings again covering sites. Did offer dressings if she has none. Stated she does have 4x4' gauze and ABD pads will cover for next visit. I just stated this is best to keep risk of infection / contamination at bay. Wounds noted as painful to medial locations -- no dressings in place to cover these sights as is her normal upon entering for care. Wounds washed with soap and water - towel dried -- tolerated well except for medial sites. Dressings then applied per order -- Unna z to bilateral lower extremities -- ensuring not to place in fold above knees. Right medial fold was buttressed with folded ABD to keep tissue form touching. Saline MOIST TO DRY Gauze applied to MID- ABOVE KNEE skin fold wounds this was then covered with guaze and secured with boarder dressing as Mica states falls out easily and do not want any pressure to these wounds. Dry gauze to most proximal skin fold Sugilast sz 7 applied to Unna Z LLE -- Unna Z to cover knee tissue and medial wound -- Kerlix to proximal skin fold - covered with Surgilast sz 7 Assisted with socks and shoes then to safely exit exam seating -- review of Unna z safetDischarge Instructions: Unna Boot You will be going [...] Unna boot dressing that smells different than usualy as follows -- documented in this encounter Plan of Treatment Upcoming Encounters Date Type Department Care Team (Latest Contact Info) Description 06/17/2024 10:30 AM EST Nurse Only Wound Care, [address] [address] [facility], Nurse Wound Care [address] [place] [address] 06/20/2024 10:30 AM EST Nurse Only Wound Care, [address] [address] [facility], Nurse Wound Care [address] [place] [address] 06/23/2024 11:20 AM EST Office Visit Wound Care, [address] [place] [address] Yuri[place] [address] [place] [address] 06/27/2024 10:30 AM EST Nurse Only Wound Care, [address] [place] [address] [facility], Nurse Wound Care [address] [place] [address] [place] [address] 07/14/2024 10:00 AM EST NeuroDiagnostic Study Neurophysiology, [address] [address] [place], [address] [place] [address] 07/14/2024 11:20 AM EST Office Visit Wound Care, [address] [address] Yuriy Hilario MD 27 [facility] [address] 07/29/2024 11:00 AM EST Appointment Cardiac Studies, [address] [address] 10/09/2024 11:30 AM EST Hospital Encounter OR [facility], Operating Room, [facility] - 4th Floor [address] [place] [address] [place] [address] Bigg Wetzel MD [address] [place] [address] 10/09/2024 11:30 AM EST - 10/09/2024 12:31 PM EST Surgery OR [facility], Operating Room, [facility] Floor [address] [place] [address] [place] [address] Bigg Wetzel MD [address] [place] [address] COLONOSCOPY FLEXIBLE PROXIMAL DIAGNOSTIC 10/24/2024 10:00 AM EDT Office Visit Cardiology, [address] [place] [address] Darnell Boggs DO 400 [facility] [place] [address] Scheduled Procedures Name Priority Associated Diagnoses Date/Ti [...] this encounter Medical Devices Implanted Type Area Relay Checker Device Identifier Shelf Expiration Date Model / Serial / Lot Device Perm Cntrl [id number] - [id number] Implanted:Qty: 2 on 09/27/2015 by Sharda Ruiz, Corey Rucker MD at OR [facility] Uter[employer] 05/03/2017 [id number] / / [id number] documented as of this encounter Visit Diagnoses [...] Power of Attor benoit? No Care Teams Tennis Player Relationship Specialty Start Date End Date Melissa Cruz PA-C [address] [facility] [address] [place] [address] PCP - General Physician Dispenser Operator 06/02/21 documented as of this encounter
--- OUTSIDE RECORDS SUMMARY | 2024-08-09 23:50 | External Medical Summary | Summary of Care ---
Author Name Unknown Organization [facility] Address [address] [place] [address] Phone [phone] Care Team Providers Care Vice Admiral Name Role Phone CarylTy mansfieldanthony Adam PA-C Primary Care Provider +1- [phone] Reason for Visit * Reason Comments Follow Up B/LLE Has been using Saline wet to dry and dry rolled gauze States she has been using the 1/4 strength vinegar spray Patient presents with no dressings in place today Encounter Details Date Type Department Care Team (Late st Contact Info) Description 06/03/2024 10:40 AM EDT Office Visit Wound Care, [facility] [address] [place] [address] Yuriy Hilario MD [address] [place] [address] Multiple open wounds of lower leg, unspecified [...] DAY 90 Tablet 1 03/17/2024 Active Nystatin 024578 UNIT/GM External Powder (Nystop) Apply topically to [...] Next Due Pneumococcal Conjugate Vacci ne, 20-valent ([id number]) 12/04/2022 Pneumococcal Polysaccharide PPV23 (Pneumovax) 05/06/2011 Seasonal [...] No 03/10/2024 Does the household have a [facility] source of income? (Household - for [...] the interim betweenvisits, she was seen at [facility] ER and prescribed antibiotics. Her wounds have [...] 26-50% 06/03/24 1043 Granulation Tissue Color red 06/03/243 Deep Supporting Structure Exposed None 06/03/24 1043 [...] 06/03/24 1033 Wound Depth (cm) 0.3 cm 06/03/24 1033 Ulcer Thickness Full 06/03/24 1033 Yellow Fibrinous Slough (%) 51-75% 06/03/24 1033 Granulation Tissue (%) 1-25% 06/03/24 1033 Granulation Tissue Color red 06/03/24 1033 Deep Supporting Structure Exposed None 06/03/24 1033 Drainage serous, moderate 06/03/24 1033 Wound Surface Area (cm^2) 21.06 cm^2 06/03/24 1033 Wound Volume (cm^3) 6.318 cm^3 06/03/24 1033 Alteration in Skin Integrity Proximal;Left;Medial Leg (Active) Clinical Image 06/03/24 1034 Wound Length (cm) 2 cm 06/03/24 1034 Wound Width (cm) 1 cm 06/03/24 1034 Wound Depth (cm) 0.1 cm 06/03/24 1034 Granulation Tissue Color red 06/03/24 1034 Drainage serous, mild 06/03/24 1034 Odor (after cleansing wound) No 06/03/24 1034 Jaye-Wound (Surrounding Skin) Edema 06/03/24 1034 Wound [...] 51-75% 06/03/24 1039 Necrotic Tissue (%) 1-25% 06/03/24 103 Necrotic Tissue Color Wells/brown 06/03/24 1039 Drainage [...] 0.2 cm 06/03/24 1044 Ulcer Thickness Full 06/03/24 1044 Deep Supporting Structure Exposed None 06/03/24 1044 [...] 1030 Yellow Fibrinous Slough (%) 100% 06/03/24 1030 Deep Supporting Structure Exposed None 06/03/24 1030 [...] Nursing Notes * Veda Jacobson CMA - 06/03/2024 10:21 [...] Department Care Team (Latest Contact Info) Description 07/14/2024 10:00 AM EST NeuroDiagnostic Study Neurophysiology, [place] [facility] [address] [place], [address] [place] [address] 07/14/2024 11:20 AM EST Office Visit Wound Care, [address] [place] [address] Yuriy Hilario MD 27 [facility] [place] [address] 07/29/2024 11:00 AM EST Appointment Cardiac Studies, [address] [place] [address] 09/15/2024 10:00 AM EST Office Visit Cardiology, [place] [facility] [place] [address] Anna Adames MD 400 [facility] [place] [address] 10/09/2024 11:30 AM EST Hospital Encounter OR [facility], Operating Room, [facility] - 4th Floor [address] [place] [phone] Bigg Wetzel MD [address] [place] [address] 10/09/2024 11:30 AM EST - 10/09/2024 12:31 PM EST Surgery OR [facility], Operating Room, [facility] - 4th Floor [address] [place] [address] [place] [address] Bigg Wetzel MD [address] [place] [address] COLONOSCOPY FLEXIBLE PROXIMAL DIAGNOSTIC Scheduled Procedures Name [...] this encounter Medical Devices Implanted Type Area Snowmaker Device Identifier Shelf Expiration Date Model / Serial / Lot Device Perm Cntrl [id number] - [id number] Implanted:Qty: 2 on 09/27/2015 by Sharda Ruiz, Corey Rucker MD at OR [facility] Uterus [employer] 05/03/2017 [id number] / / [id number] documented as of this encounter Visit Diagnoses [...] Power of Attor benoit? No Care Teams Vice Admiral Relationship Specialty Start Date End Date Melissa Cruz PA-C [address] [facility] [address] [place] [address] PCP - General Physician Auctioneer Art 06/02/21 documented as of this encounter
--- OUTSIDE RECORDS SUMMARY | 2024-08-09 23:50 | External Medical Summary | Summary of Care ---
Author Name Unknown Organization [facility] Address [address] [place] [address] Phone [phone] Care Team Providers Care Social Media Coordinator Name Role Phone CarylMelissa mansfield Chang FONSECA Primary Care Provider +1- [phone] Reason for Visit * Reason Onset Date Comments Advice 05/23/2024 Encounter Details Date Type Department Care Team ([facility] st Contact Info) Description 05/23/2024 Telephone Wound Care, [facility] [address] [place], [place] [id number] Yuriy Hilario MD [address] [place] [address] Advice Allergies Active Allergy Reactions [...] DAY 90 Tablet 1 4 Active Nystatin 557076 UNIT/GM External Powder (Nystop) Apply topically to [...] LYNSEY (generalized anxiety disorder) 07/23/2017 Lymphedema 04/27/2017 JOREG A (obstructive sleep apnea) 11/08/2016 Recurrent major [...] Next Due Pneumococcal Conjugate Vacci ne, 20-valent ([id number]) 12/04/2022 Pneumococcal Polysaccharide PPV23 (Pneumovax) 05/06/2011 Seasonal [...] CARs schedule as per M[facility] only in [place] between 10AM and 12NOON -- Scheduled per [...] AM EST Nurse Only Wound Care, [address] [address] [facility], Nurse Wound Care [address] [place], [place] [address] [address] 06/20/2024 10:30 AM EST Nurse Only Wound Care, [address] [address] [facility], Nurse Wound Care [address] [place], [place] [address] [address] 06/23/2024 11:20 AM EST Office Visit Wound Care, [address] [address] Yuriy Hilario MD [facility] [address] 06/27/2024 10:30 AM EST Nurse Only Wound Care, [address] [address] [facility], Nurse Wound Care [address] [place], [place] [address] [address] 07/14/2024 10:00 AM EST NeuroDiagnostic Study Neurophysiology, [place] [facility] [address] Ramiro [place], DO 200 [facility] [place] [address] 07/14/2024 11:20 AM EST Office Visit Wound Care, [address] [place] [address] Yuriy Hilario MD [address] [place] [address] 07/29/2024 11:00 AM EST Appointment Cardiac Studies, [address] [place] [address] 10/09/2024 11:30 AM EST Hospital Encounter OR GL, Operating Room, [facility] - 4th Floor [address] [place] [address] [place] [address] Bigg Wetzel MD [address] [place] [address] 10/09/2024 11:30 AM EST - 10/09/2024 12:31 PM EST Surgery OR [facility], Operating Room, [facility] - 4th Floor [address] [place] [address] [place] [address] Bigg Wetzel MD [address] [place] [facility] [address] COLONOSCOPY FLEXIBLE PROXIMAL DIAGNOSTIC 10/24/2024 10:00 AM EDT Office Visit Cardiology, [place] [address] [facility] [place] [address] Darnell Boggs DO 400 [facility] [address] Scheduled Procedures Name Priority Associated Diagnoses Date/Ti [...] this encounter Medical Devices Implanted Type Area Laundry Helper Device Identifier Shelf Expiration Date Model / Serial / Lot Device Perm Cntrl [id number] - [id number] Implanted:Qty: 2 on 09/27/2015 by Corey Robin Jr., MD at OR [facility] Uterus [employer] 05/03/2017 [id number] / / [id number] documented as of this encounter Additional Health [...] Power of Attor benoit? No Care Teams Social Media Coordinator Relationship Specialty Start Date End Date Melissa Cruz PA-C [address] [address] [place] [address] PCP - General Physician Sheet Manager 06/02/21 documented as of this encounter
--- OUTSIDE RECORDS SUMMARY | 2024-08-09 23:50 | External Medical Summary | Summary of Care ---
Author Name Unknown Organization [facility] Address [address] [place] [address] Phone [phone] Care Team Providers Care Mentally Retarded Teacher Name Role Phone Melissa Cruz PA-C Primary Care Provider +1- [phone] Reason for Visit * Reason Onset Date Comments Home Health 03/18/2024 Encounter Details Date Type Department Care Team (Late st Contact Info) Description 03/18/[address] [place] [address] Melissa Cruz PA-C [address] [place] [address] Home Health Allergies Active Allergy Reactions [...] Next Due Pneumococcal Conjugate Vacci ne, 20-valent ([id number]) 12/04/2022 Pneumococcal Polysaccharide PPV23 (Pneumovax) 05/06/2011 Seasonal [...] encounter Miscellaneous Notes * Telephone Encounter - Yolanda Pinedo LPN - 03/18/2024 9:03 AM EDT HH Concerns ROSSANA Barnett, Calling from: [facility] Report/Concerns of: BP and HR Symptoms: none Vitals: T 98.2 P 72 RR 16 BP 148/86 SP O2 99% RA Lung sounds CTA Weight NA Blood sugar NA Narrative: Is calling to make PCP aware that the pt's BP 148/86- does not have parameters as to when she should call the office. Pt's HR remains irregular. Is asymptomatic today and is f/u with cardiology tomorrow for monitor placement. FYI Call back ROSSANA Barnett with any advice or orders at [phone] Please fax new orders to [facility] Home Health [phone] documented in this encounter Plan of Treatment Upcoming Encounters Date Type Department Care Team (Latest Contact Info) Description 06/20/2024 10:30 AM EST Nurse Only Wound Care, [address] [place] [address] [facility], Nurse Wound Care [address] [place] [address] 06/23/2024 11:20 AM EST Office Visit Wound Care, [address] [address] Yuriy [facility]ilario MD [facility] [address] 06/27/2024 10:30 AM EST Nurse Only Wound Care, [address] [address] [facility], Nurse Wound Care [address] [place] [address] [place] [address] 07/14/2024 10:00 AM EST NeuroDiagnostic Study Neurophysiology, [place] 21 [facility] [place] [address] Ramiro [place], DO [address] [facility], [place] [address] 07/14/2024 11:20 AM EST Office Visit Wound Care, [address] [place] [address] Yuriy Hilario MD [address] [place] [address] 07/29/2024 11:00 AM EST Appointment Cardiac Studies, [address] [place]FI[place] [address] 10/09/2024 11:30 AM EST Hospital Encounter OR [facility], Operating Room, [facility] - 4th Floor 400 [facility] [place] [address] Bigg Wetzel MD [address] [facility] [place] [address] 10/09/2024 11:30 AM EST - 10/09/2024 12:31 PM EST Surgery OR [facility], Operating Room, [facility] - 4th Floor [address] [place], [place] [address] [address] Bigg Wetzel MD [address] [facility] [place] [address] COLONOSCOPY FLEXIBLE PROXIMAL DIAGNOSTIC 10/24/2024 10:00 AM EDT Office Visit Cardiology, [place] 400 [facility] [place] [address] Darnell Boggs DO 400 [facility] [place] [address] Scheduled Procedures Name Priority Associated Diagnoses Date/Ti [...] this encounter Medical Devices Implanted Type Area Trim Setter Device Identifier Shelf Expiration Date Model / Serial / Lot Device Perm Cntr [id number] - [id number] Implanted:Qty: 2 on 09/27/2015 by Sharda Ruiz, Corey Rucker MD at OR [facility] Uterus [employer] 05/03/2017 [id number] / / [id number] documented as of this encounter Additional Health [...] Power of Attor benoit? No Care Teams Mentally Retarded Teacher Relationship Specialty Start Date End Date Melissa Cruz PA-C [address] [address] [place] [address] PCP - General Physician Credit Specialist 06/02/21 documented as of this encounter
--- OUTSIDE RECORDS SUMMARY | 2024-08-09 23:51 | External Medical Summary ---
Author Name Unknown Address Unknown Organization K1F:[facility] - [address] [place] [address] Laboratory Report Ordering Provider Test Date Status CARLOTTA NELSON 05/30/2024 11:58:21 Final Observation Date Value Abnormality Reference (Units ) Status CK 05/30/2024 11:58:21 119 26-192 (U/ L) Final Performing Location [facility] - [address] [place] [address]
--- OUTSIDE RECORDS SUMMARY | 2024-08-09 23:51 | External Medical Summary | Summary of Care ---
Author Name Unknown Organization [facility] Address [address] [place] [address] Phone [phone] Care Team Providers Care Veneer Department Manager Name Role Phone Melissa Cruz PA-C Primary Care Provider +1- [phone] Reason for Visit * Reason Onset Date Comments Order Request 05/26/2024 Encounter Details Date Type Department Care Team (Late st Contact Info) Description 05/26/2024 Telephone [place] [address] [address] [place], [place] [phone] Melissa Cruz PA-C [facility] [address] [place], [place] [id number] Order Request Allergies Active Allergy Reactions Criticality Noted Date Comments Aspirin 01/27/2014 Increased bleeding documented as of this encounter (statuses as of 05/28/2024) Medications Medication Sig Dispensed Refills Start Date [...] wounds daily. 400 g 1 02/08/2024 Active Additional Information Patient not taking.Reported on 05/19/2024 Diclofenac Sodium 1 % External Gel (Voltaren) [...] DAY 90 Tablet 1 03/17/2024 Active Nystatin 934661 UNIT/GM External Powder (Nystop) Apply topically to [...] as of this encounter (statuses as of 05/28/2024) Active Problems Problem Noted Date Diagnosed Date Neuropathy 07/26/2023 Class 3 severe obesity due t o excess calories with serious comorbidity and body mass index (BMI) greater than or equal to 70 in adult 10/06/2020 Bipolar I disorder, current or most recent episode depressed, with psychotic features 08/22/2017 PTSD (post-traumatic stress disorder) 08/22/2017 LNYSEY (generalized anxiety disorder) 07/23/2017 Lymphedema 04/27/2017 JORGE A (obstructive sleep apnea) 11/08/2016 Recurrent major depressive disorder, in partial remission 03/15/2015 Asthma, mild persistent 01/20/2015 Lumbago 08/28/2014 Right knee DJD 08/28/2014 Esophageal reflux 01/27/2014 Calculus of kidney 04/01/2010 documented as of this encounter (statuses as of 05/28/2024) Resolved Problems Problem Noted Date Diagnosed Date [...] as of this encounter (statuses as of 05/28/2024) Immunizations Name Administration Dates Next Due Pneumococcal Conjugate Vacci ne, 20-valent ([id number]) 12/04/2022 Pneumococcal Polysaccharide PPV23 (Pneumovax) 05/06/2011 Seasonal [...] encounter Miscellaneous Notes * Telephone Encounter - Leonarda Lofton OSA - 05/28/2024 11:46 AM EDT DME for ramp faxed to [facility]. * Telephone Encounter - Christina Cuadra LPN - 05/28/2024 10:44 AM EDT Refaxed old order to [facility] at this time * Telephone Encounter - Melissa Cruz PA-C - 05/28/2024 7:20 AM EDT Please find out what happened to the previous order. Thanks. * Telephone Encounter - Deirdre Dang OSA - 05/26/2024 3:32 PM EDT An order was requested for this patient. Name of Requesting Provider: [facility] Order Requested: Wheelchair Ramp [employer] Diagnosis/Reason for Request: Pt needs wheelchair ramp for home If order request is for Mammogram: Is the patient having any breast symptoms? No Is there a chance of ? No Has the patient had any breast problems in the past? No What location AND department does the patient wish to have their order completed at? [facility] Fax Number, if applicable: [phone] [employer] If the caller is not a current patient, please advise the patient to call their current PCP to havethe order's prior to being seen in our office. The patient was informed that our providers would not order anything (medication, labs, etc.) prior to being seen. documented in this encounter Plan of Treatment Upcoming Encounters Date Type Department Care Team (Latest Contact Info) Description 05/30/2024 10:30 AM EDT Nurse Only Wound Care, [address] [address] [facility], Nurse Wound Care [address] [place] [address] 06/03/2024 10:40 AM EDT Office Visit Wound Care, [address] [address] Yuriy Hilario MD [address] [place] [address] 07/14/2024 10:00 AM EST NeuroDiagnostic Study Neurophysiology, [place] [facility] [address] Ramiro Grove DO 200 [facility] [address] 07/14/2024 11:20 AM EST Office Visit Wound Care, [address] [address] Yuriy Hilario MD [address] [place] [address] 07/29/2024 11:00 AM EST Appointment Cardiac Studies, [facility] 400 [facility] [place] [address] 09/15/2024 10:00 AM EST Office Visit Cardiology, [address] [place] [address] Anna Adames MD 400 [place] [address] 10/09/2024 11:30 AM EST Hospital Encounter OR [facility], Operating Room, [facility] - 4th Floor [address] [place] [address] [place] [address] Bigg Wetzel MD [address] [facility] [address] 10/09/2024 11:30 AM EST - 10/09/2024 12:31 PM EST Surgery OR [facility], Operating Room, [facility] Floor [address] [place] [address] [place] [address] Bigg Wetzel MD [address] [place] [address] COLONOSCOPY FLEXIBLE PROXIMAL DIAGNOSTIC Scheduled Procedures Name Priority Associated Diagnoses Date/Ti co COLONOSCOPY FLEXIBLE PROXIMAL DIAGNOSTIC Screening for colon [...] 01/20/2015 Depression Monitoring 03/10/2025 03/10/2024 Diabetes Screening 03/11/2027 03/11/2024, 0 10/19/2023, 05/24/2023, Additional history exists Lipid Panel 05/24/2028 05/24/2023, [...] this encounter Medical Devices Implanted Type Area Outbound Telemarketer Device Identifier Shelf Expiration Date Model / Serial / Lot Device Perm Cntrl [id number] - [id number] Implanted:Qty: 2 on 09/27/2015 by Sharda Riuz, Corey Rucker MD at OR [facility] Uterus [employer] 05/03/2017 [id number] / / [id number] documented as of this encounter Advance Directives [...] Power of Attor benoit? No Care Teams Veneer Department Manager Relationship Specialty Start Date End Date Melissa Cruz PA-C [address] [facility] [address] [place] [address] PCP - General Physician Embosser Apprentice 06/02/21 documented as of this encounter
--- OUTSIDE RECORDS SUMMARY | 2024-08-09 23:51 | External Medical Summary | Summary of Care ---
Author Name Unknown Organization [facility] Address [address] [place] [address] Phone [phone] Care Team Providers Care Bi Manager Name Role Phone CarylTy mansfieldanthony Downing PA-C Primary Care Provider +1- [phone] Reason for Visit * Reason Comments Wound Care BLE --EDEMA WOUNDS Encounter Details Date Type Department Care Team ([facility] st Contact Info) Description 05/30/2024 10:30 AM EDT Nurse Only Wound Care, [facility] [address] [place] [address] [facility], Nurse Wound Care [address] [place] [address] Wound Care (BLE --EDEMA WOUNDS ) Allergies Active Allergy Reactions Criticality Noted Date Comments Aspirin 01/27/2014 Increased bleeding documented as of this encounter (statuses as of 05/30/2024) Medications Medication Sig Dispensed Refills Start Date [...] DAY 90 Tablet 1 03/17/2024 Active Nystatin 330547 UNIT/GM External Powder (Nystop) Apply topically to [...] as of this encounter (statuses as of 05/30/2024) Active Problems Problem Noted Date Diagnosed Date [...] as of this encounter (statuses as of 05/30/2024) Resolved Problems Problem Noted Date Diagnosed Date [...] as of this encounter (statuses as of 05/30/2024) Immunizations Name Administration Dates Next Due Pneumococcal Conjugate Vacci ne, 20-valent ([id number]) 12/04/2022 Pneumococcal Polysaccharide PPV23 (Pneumovax) 05/06/2011 Seasonal [...] Sign Reading Time Taken Comments Blood Pressure 151/69 05/30/2024 10:26 AM EDT Pulse 76 05/30/2024 10:26 AM EDT Temperature 36.4 C (97.5 F) 05/30/2024 10:26 AM E DT Respiratory Rate - - Oxygen Saturation 99% 05/30/2024 10:26 AM EDT Inhaled Oxygen Concentration - - Weight - - Height - - Body Mass Index - - documented in this encounter Nursing Notes * Veda Jacobson CMA - 05/30/2024 11:10 AM EDT Spoke to Dr. Hilario. With declining condition of wounds especially R/medial wound his recommendation is for the patient to go to the ED Patient is agreeable and it was his recommendation to wrap the patient loosely since she will need to be evaluated. Juan López LPN and myself wrapped patient with ABD pads and Kerlix and tucked Kerlix into B/L Skin folds. * Megha López LPN - 05/30/2024 10:13 AM EDT Assisted to sit safely aware to stay seated for her safety. Unna boots have slid again to mid shins. documented in this encounter Plan of Treatment Upcoming Encounters Date Type Department Care Team (Latest Contact Info) Description 06/03/2024 10:40 AM EDT Office Visit Wound Care, [address] [place] [address] Yuriy Hilario MD 27 [place] [address] 07/14/2024 10:00 AM EST NeuroDiagnostic Study Neurophysiology, [address] [place] [address] Ramiro Grove, DO 200 [facility], [place] [address] 07/14/2024 11:20 AM EST Office Visit Wound Care, [address] [place] [address] Yuriy Hilario MD [address] [facility] [address] 07/29/2024 11:00 AM EST Appointment Cardiac Studies, [address] [place] [address] 09/15/2024 10:00 AM EST Office Visit Cardiology, [address] [place] [address] Anna Adames MD 400 [facility] [place] [address] 10/09/2024 11:30 AM EST Hospital Encounter [facility], Operating Room, [facility] - 4th Floor [address] [place] [address] Bigg Wetzel MD [address] [place] [address] 10/09/2024 11:30 AM EST - 10/09/2024 12:31 PM EST Surgery OR [facility], Operating Room, [facility] - 4th Floor [address] [place] [address] Bigg Wetzel MD [address] [place] [address] COLONOSCOPY FLEXIBLE PROXIMAL DIAGNOSTIC Scheduled Procedures Name [...] this encounter Medical Devices Implanted Type Area Bevel Face Stoner And Polisher Device Identifier Shelf Expiration Date Model / Serial / Lot Device Perm Cntrl [id number] - [id number] Implanted:Qty: 2 on 09/27/2015 by Sharda Ruiz, Corey Rucker MD at OR [facility] Uterus [employer] 05/03/2017 [id number] / / [id number] documented as of this encounter Advance Directives [...] Power of Attor benoit? No Care Teams Bi Manager Relationship Specialty Start Date End Date Melissa Cruz PA-C [address] [facility] [address] [place] [address] PCP - General Physician Spring Coverer 06/02/21 documented as of this encounter
--- OUTSIDE RECORDS SUMMARY | 2024-08-09 23:51 | External Medical Summary | Summary of Care ---
Author Name Unknown Organization [facility] Address [address] [place] [address] Phone [phone] Care Team Providers Care Lead Loader Name Role Phone CarylTy mansfieldanthony Downing PA-C Primary Care Provider +1- [phone] Reason for Visit * Reason Comments Wound Care BLE --EDEMA WOUNDS Encounter Details Date Type Department Care Team ([facility] st Contact Info) Description 05/30/2024 10:30 AM EDT Nurse Only Wound Care, [facility] [address] [place] [address] [facility], Nurse Wound Care [address] [place] [address] Wound Care (BLE --EDEMA WOUNDS ) Allergies [...] DAY 90 Tablet 1 03/17/2024 Active Nystatin 375505 UNIT/GM External Powder (Nystop) Apply topically to [...] Next Due Pneumococcal Conjugate Vacci ne, 20-valent ([id number]) 12/04/2022 Pneumococcal Polysaccharide PPV23 (Pneumovax) 05/06/2011 Seasonal [...] 10:40 AM EDT Office Visit Wound Care, [address] [place] [address] Yuriy Hilario MD 27 [place] [address] 07/14/2024 10:00 AM EST NeuroDiagnostic Study Neurophysiology, [address] [place] [address] Ramiro Grove, DO 200 [facility], [place] [address] 07/14/2024 11:20 AM EST Office Visit Wound Care, [address] [place] [address] Yuriy Hilario MD [address] [facility] [place] [address] 07/29/2024 11:00 AM EST Appointment Cardiac Studies, [address] [place] [address] 09/15/2024 10:00 AM EST Office Visit Cardiology, [address] [place] [address] Anna Adames MD 400 [facility] [place] [address] 10/09/2024 11:30 AM EST Hospital Encounter [facility], Operating Room, [facility] - 4th Floor [address] [place] [address] Bigg Wetzel MD [address] [place] [address] 10/09/2024 11:30 AM EST - 10/09/2024 12:31 PM EST Surgery OR [facility], Operating Room, [facility] - 4th Floor [address] [place] [address] Bigg Wetzel MD [address] [place] [address] COLONOSCOPY FLEXIBLE PROXIMAL DIAGNOSTIC Scheduled Procedures Name [...] this encounter Medical Devices Implanted Type Area Napper Runner Device Identifier Shelf Expiration Date Model / Serial / Lot Device Perm Cntrl [id number] - [id number] Implanted:Qty: 2 on 09/27/2015 by Sharda Ruiz, Corey Rucker MD at OR [facility] Uterus [employer] 05/03/2017 [id number] / / [id number] documented as of this encounter Advance Directives [...] Power of Attor benoit? No Care Teams Lead Loader Relationship Specialty Start Date End Date Melissa Cruz PA-C [address] [facility] [address] [place] [address] PCP - General Physician Clerk Stenographer 06/02/21 documented as of this encounter
--- OUTSIDE RECORDS SUMMARY | 2024-08-09 23:51 | External Medical Summary | Summary of Care ---
Author Name Unknown Organization [facility] Address [address] [place] [address] Phone [phone] Care Team Providers Care Ice Platform Supervisor Name Role Phone CarylTy mansfieldanthony Downing PA-C Primary Care Provider +1- [phone] Reason for Visit * Reason Comments Wound Care BLE --EDEMA WOUNDS Encounter Details Date Type Department Care Team ([facility] st Contact Info) Description 05/30/2024 10:30 AM EDT Nurse Only Wound Care, [facility] [address] [place] [address] [facility], Nurse Wound Care [address] [place] [address] Wound Care (BLE --EDEMA WOUNDS ) Allergies [...] DAY 90 Tablet 1 03/17/2024 Active Nystatin 047668 UNIT/GM External Powder (Nystop) Apply topically to [...] Next Due Pneumococcal Conjugate Vacci ne, 20-valent ([id number]) 12/04/2022 Pneumococcal Polysaccharide PPV23 (Pneumovax) 05/06/2011 Seasonal [...] 10:40 AM EDT Office Visit Wound Care, [address] [place] [address] Yuriy Hilario MD 27 [place] [address] 07/14/2024 10:00 AM EST NeuroDiagnostic Study Neurophysiology, [address] [place] [address] Ramiro Grove, DO 200 [facility], [place] [address] 07/14/2024 11:20 AM EST Office Visit Wound Care, [address] [place] [address] Yuriy [facility]ilario MD [address] [facility] [address] 07/29/2024 11:00 AM EST Appointment Cardiac Studies, [address] [place] [address] 09/15/2024 10:00 AM EST Office Visit Cardiology, [address] [place] [address] Anna Adames MD 400 [facility] [place] [address] 10/09/2024 11:30 AM EST Hospital Encounter OR [facility], Operating Room, [facility] - 4th Floor [address] [place] [address] Bigg Wetzel MD [address] [place] [address] 10/09/2024 11:30 AM EST - 10/09/2024 12:31 PM EST Surgery OR [facility], Operating Room, [facility] - 4th Floor [address] [place] [place] [address] Bigg Wetzel MD [address] [place] [address] COLONOSCOPY FLEXIBLE PROXIMAL DIAGNOSTIC Scheduled Procedures Name [...] this encounter Medical Devices Implanted Type Area Blocking Machine Operator Second Device Identifier Shelf Expiration Date Model / Serial / Lot Device Perm Cntrl [id number] - [id number] Implanted:Qty: 2 on 09/27/2015 by Sharda Ruiz, Corey Rucker MD at OR [facility] Uterus [employer] 05/03/2017 [id number] / / [id number] documented as of this encounter Advance Directives [...] Power of Attor benoit? No Care Teams Ice Platform Supervisor Relationship Specialty Start Date End Date Melissa Cruz PA-C [address] [facility] [address] [place] [address] PCP - General Physician Missile Technician 06/02/21 documented as of this encounter
--- OUTSIDE RECORDS SUMMARY | 2024-08-09 23:51 | External Medical Summary ---
Author Name Unknown Address Unknown Organization K1F:[facility] - [address] [place] [address] Laboratory Report Ordering Provider Test Date Status CARLOTTA NELSON 05/30/2024 11:58:21 Final Observation Date Value Abnormality Reference (Units ) Status WBC, Total 05/30/2024 11:58:21 7.69 4.00-10.80 (K/uL) Final RBC 05/30/2024 11:58:21 4.12 3.85-5.15 (M/uL) Final Hemoglobin 05/30/2024 11:58:21 11.0 Below low normal 12.0-15.3 (g/dL) Final HCT 05/30/2024 11:58:21 35.1 Below low normal 36.0-45.2 (%) Final MCV 05/30/2024 11:58:21 85.2 81.5-97.5 (fL) Final MCH 05/30/2024 11:58:21 26.7 27.0-34.0 (pg) Final MCHC 05/30/2024 11:58:21 31.3 32.0-36.0 (g/dL) Final RDW 05/30/2024 11:58:21 15.3 11.5-15.5 (%) Final Platelets 05/30/2024 11:58:21 272 140-400 (K/uL) Final MPV 05/30/2024 11:58:21 8.7 6.6-11.1 (fL) Final Nucleated erythrocytes/100 leukocytes [Ratio] in Blood by Automated count 05/30/2024 11:58:21 0 <=0 (/100 WBCs) Final Performing Location [facility] - [address] [place] [address]
--- OUTSIDE RECORDS SUMMARY | 2024-08-09 23:51 | External Medical Summary | Summary of Care ---
Author Name Unknown Organization [facility] Address [address] [place] [address] Phone [phone] Care Team Providers Care Wood Die Maker Name Role Phone CarylTy mansfieldanthony Downing PA-C Primary Care Provider +1- [phone] Reason for Visit * Reason Comments Wound Care BLE --EDEMA WOUNDS Encounter Details Date Type Department Care Team ([facility] st Contact Info) Description 05/30/2024 10:30 AM EDT Nurse Only Wound Care, [facility] [address] [place] [address] [facility], Nurse Wound Care [address] [place] [address] Wound Care (BLE --EDEMA WOUNDS ) Allergies [...] DAY 90 Tablet 1 03/17/2024 Active Nystatin 520500 UNIT/GM External Powder (Nystop) Apply topically to [...] Next Due Pneumococcal Conjugate Vacci ne, 20-valent ([id number]) 12/04/2022 Pneumococcal Polysaccharide PPV23 (Pneumovax) 05/06/2011 Seasonal [...] since she will need to be evaluated. * Megha López LPN - 05/30/2024 10:13 AM EDT Assisted to sit safely aware to stay seated for her safety. Unna boots have slid again to mid shins. documented in this encounter Plan of Treatment Upcoming Encounters Date Type Department Care Team (Latest Contact Info) Description 06/03/2024 10:40 AM EDT Office Visit Wound Care, [address] [place] [address] Yuriy Hilario MD [address] [facility] [address] 07/14/2024 10:00 AM EST NeuroDiagnostic Study Neurophysiology, [address] [address] Ramiro Grove, DO 200 [facility], [place] [address] 07/14/2024 11:20 AM EST Office Visit Wound Care, [address] [address] Yuriy Hilario MD [address] [place] [address] 07/29/2024 11:00 AM EST Appointment Cardiac Studies, [address] [place] [address] 09/15/2024 10:00 AM EST Office Visit Cardiology, [address] [place] [address] Anna [facility]ames MD 400 [facility] [address] 10/09/2024 11:30 AM EST Hospital Encounter OR [facility], Operating Room, [facility] - 4th Floor [address] [place] [address] [place] [address] Bigg Wetzel MD [address] [facility] [place] [address] 10/09/2024 11:30 AM EST - 10/09/2024 12:31 PM EST Surgery OR [facility], Operating Room, [facility] - 4th Floor [address] [place] [address] Bigg Wetzel MD [address] [place] [address] COLONOSCOPY FLEXIBLE PROXIMAL DIAGNOSTIC Scheduled Procedures Name [...] this encounter Medical Devices Implanted Type Area Soaker Helper Device Identifier Shelf Expiration Date Model / Serial / Lot Device Perm Cntrl [id number] - [id number] Implanted:Qty: 2 on 09/27/2015 by Sharda Ruiz, Corey Rucker MD at OR [facility] Uterus [employer] 05/03/2017 [id number] / / [id number] documented as of this encounter Advance Directives [...] Power of Attor benoit? No Care Teams Wood Die Maker Relationship Specialty Start Date End Date Melissa Cruz PA-C [address] [address] [place] [address] PCP - General Physician Lidar Analyst 06/02/21 documented as of this encounter
--- OUTSIDE RECORDS SUMMARY | 2024-08-09 23:51 | External Medical Summary | Summary of Care ---
Author Name Unknown Organization [facility] Address [address] [place] [address] Phone [phone] Care Team Providers Care Risk Advisor Name Role Phone CarylTy mansfieldanthony Downing PA-C Primary Care Provider [phone]- [phone] Reason for Visit * Reason Comments Wound Care * Auth/Cert Specialty Diagnoses / Procedures Referred By Phylicia t Referred To Contact [facility] [address] [place] [address] Phone: [phone] [facility] [address] [place] [address] Referral ID Status Reason Start Date Expiration Date Visits Re quested Visits Authorized [id number] Encounter Details Date Type Department Care Team (Late st Contact Info) Description 05/30/2024 11:15 AM EDT - 05/30/2024 4:35 PM EDT Emergency [facility] Emergency Department ([facility]) [address] [place] [address] Ana Fry MD [address], [place] [id number] Cellulitis of right lower extremity (Primary Dx); Chronic ulcer of lower extremity, unspecified laterality, unspecified ulcer stage (HCC) Discharge Disposition: Home - Self Care Allergies Active Allergy Reactions Criticality Noted Date Comments Aspirin 01/27/2014 Increased bleeding documented as of this encounter (statuses as of 05/31/2024) Medications Medication Sig Dispensed Refills Start Date [...] DAY 90 Tablet 1 03/17/2024 Active Nystatin 129314 UNIT/GM External Powder (Nystop) Apply topically to [...] this for 10 days. 20 Capsule 05/30/2024 4 Active Amoxicillin-Pot Clavulanate 875-125 MG Oral Tablet (Augmentin) Take 1 Tablet by mouth in the morning and 1 Tablet before bedtime. Do all this for 10 days. 20 Tablet 05/30/2024 4 Active documented as of this encounter (statuses as of 05/31/2024) Active Problems Problem Noted Date Diagnosed Date [...] as of this encounter (statuses as of 05/31/2024) Resolved Problems Problem Noted Date Diagnosed Date [...] as of this encounter (statuses as of 05/31/2024) Immunizations Name Administration Dates Next Due Pneumococcal Conjugate Vacci ne, 20-valent ([id number]) 12/04/2022 Pneumococcal Polysaccharide PPV23 (Pneumovax) 05/06/2011 Seasonal [...] Sign Reading Time Taken Comments Blood Pressure 119/76 05/30/2024 3:00 PM EDT Pulse 78 05/30/2024 3:00 PM EDT Temperature 36.4 C (97.5 F) 05/30/2024 11:20 AM E DT Respiratory Rate 18 05/30/2024 3:00 PM EDT Oxygen Saturation 100% 05/30/2024 11:20 AM EDT Inhaled Oxygen Concentration - - Weight 166.9 kg (368 lb) 05/30/2024 11:20 AM EDT Height 149.9 cm (4' 11") 05/30/2024 11:20 AM EDT Body Mass Index 74.33 05/30/2024 11:20 AM EDT documented in this encounter Discharge Instructions * Discharge Instructions* Ana Fry MD - 05/30/2024 1:59 PM EDT Wet to dry dressings with normal saline right calf wound once a day documented in this encounter ED Notes * Ana Fry MD - 05/30/2024 11:42 AM EDT HISTORY OF PRESENT ILLNESS Mica Jimenez is a 49 year old female who presents to the ED for evaluation of Wound Care. Thepatient was seen at 05/30/24 1117. The patient says she was referred from the wound clinic to the emergency department for possible admission. The patient says she was last seen at the wound clinic 3days ago, she goes twice a day weak. She has had wounds on her legs for over a year. She says 1 wound today apparently looked " necrotic", right leg. Her right leg has been very sore for 2-3 weeks. She denies any increased swelling of her legs compared to usual. She is not diabetic. She denies any fevers. She was last on oral antibiotics about 4 or 5 months ago. She has been applying ABD pads on her legs and has had Unna boots on, per Wound Clinic care recently Review of Systems Constitutional: Negative for fever. HENT: Negative for congestion, ear pain, rhinorrhea and sore throat. Respiratory: Positive for cough and chest tightness. Negative for shortness of breath. Cardiovascular: Negative for chest pain and leg swelling. Gastrointestinal: Negative for abdominal pain, constipation, diarrhea, nausea and vomiting. Genitourinary: Negative for dysuria, frequency and hematuria. Musculoskeletal: Positive for myalgias. Negative for back pain. Skin: Positive for wound. Negative for rash. Neurological: Negative for dizziness, weakness, light-headedness and headaches. All other systems reviewed and are negative. The patient's allergies, past history, and medications were reviewed. PHYSICAL EXAM Initial Vitals (see all): BP 161/74 | Pulse 71 | Resp 20 | Temp 97.5 | O2 100 %Weight 166.92 kg | Height 149.9 cm | BMI 74.33kg/m2 Initial Pain Assessment (see all): 6 (severe pain)/10, location: leg pain ([facility] Adult Scale 0-10) Physical Exam Vitals and nursing note reviewed. Constitutional: General: She is in acute distress (Moderate). Appearance: She is obese. She is not ill-appearing, toxic-appearing or diaphoretic. HENT: Head: Normocephalic and atraumatic. Cardiovascular: Rate and Rhythm: Normal rate and regular rhythm. Pulses: Dorsalis pedis pulses are 2+ on the right side and 2+ on the left side. Heart sounds: No murmur heard. No gallop. Pulmonary: Effort: Pulmonary effort is normal. No respiratory distress. Breath sounds: Normal breath sounds. Abdominal: General: Bowel sounds are normal. There is no distension. Palpations: Abdomen is soft. Tenderness: There is no abdominal tenderness. There is no guarding or rebound. Musculoskeletal: General: No swelling, tenderness or deformity. Normal range of motion. Cervical back: Normal range of motion and neck supple. No muscular tenderness. Right lower leg: No edema. Left lower leg: No edema. Lymphadenopathy: Cervical: No cervical adenopathy. Skin: General: Skin is warm and dry. Coloration: Skin is not cyanotic. Findings: Erythema (Medial distal right thigh with increased warmth, and proximal right calf with increased warmth) and wound (Multiple ulcerations some to subcutaneous tissue bilateral lower legs with no active drainage at this time. Somewhat blackened necrotic material inside a deeper wound rightproximal calf, this was cultured) present. No rash. Nails: There is no clubbing. Neurological: General: No focal deficit present. Mental Status: She is alert and oriented to person, place, and time. GCS: GCS eye subscore is 4. GCS verbal subscore is 5. GCS motor subscore is 6. Psychiatric: Mood and Affect: Mood normal. Speech: Speech normal. Behavior: Behavior normal. Behavior is cooperative. PROCEDURES AND TREATMENTS ED Orders | ED Results MEDICAL DECISION MAKING Nursing notes and vital signs were reviewed. ED Course as of 05/30/24 1702 SunMay 30, 2024 1221 Stable anemia [DH] [address] Stafford. Patient without systemic symptoms of infection. No antibiotics prior to now. Patient says she was applying ABD pads and had Unna boots, no dressings to her wounds. Patient does not appear to require admission at this time. Dr. 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 Patient is already followed by wound clinic. Patient agreeable to plan [DH] ED Course User Index [] Ana Fry MD Differential Diagnoses Based on my history, physical exam, and evaluation, the differential includes, but is not limited, to the following diagnoses: Venous stasis, cellulitis, doubt sepsis. Amount and/or Complexity of Data Reviewed Labs: ordered. Radiology: ordered. Risk Prescription drug management. Clinical Impressions Cellulitis of right lower extremity Chronic ulcer of lower extremity, unspecified laterality, unspecified ulcer stage (HCC) - Bilateral Disposition Discharged. The patient's condition at disposition was: stable. Discharge Medications Disp Refills Start End Doxycycline Monohydrate 100 MG Oral Capsule 20 Capsule 0 05/30/2024 06/09/2024 Sig - Route: Take 1 Capsule by mouth in the morning and 1 Capsule before bedtime. Do all this for 10 days. - Oral Class: ePrescribing Renewals Renewal requests to authorizing provider (Ana Fry MD) <b>prohibited</b> Amoxicillin-Pot Clavulanate 875-125 MG Oral Tablet (Augmentin) 20 Tablet 0 05/30/2024 06/09/2024 Sig - Route: Take 1 Tablet by mouth in the morning and 1 Tablet before bedtime. Do all this for 10 days. - Oral Class: ePrescribing Renewals Renewal requests to authorizing provider (Ana Fry MD) <b>prohibited</b> Ana Fry This chart was completed in part utilizing [employer] Voice Recognition Software. Grammatical errors, random word insertions, prounoun errors, and incomplete sentences are an occasional consequence of this system due to software limitations, ambient noise, and hardware issues. Any formal questions or concerns about the content, text, or information contained within the body of this dictation should be directly addressed to the provider for clarification. Ana Fry MD 05/30/2024 5:03 PM * Nicanor Lee RN - 05/30/2024 11:22 AM EDT Patient arrives to the ED for wound care. States having wounds on her BLE for the past year in which she had an appointment with the wound clinic today. Reports wound clinic recommended possible admission to receive IV antibiotics due to the wounds worsening. Denies taking any oral for potential infection. documented in this encounter Miscellaneous Notes * ED Shape Carver Note - Gris Farmer RN - 05/30/2024 4:33 PM EDT Discharge instructions reviewed with pt, states understanding. Denies pain to infiltration site. Ptreminded to elevated and apply compresses. Assisted off unit by wheelchair. * ED Shape Carver Note - Gris Farmer RN - 05/30/2024 4:18 PM EDT Vanco began to infiltrate at the end of the infusion. IV site removed. Pharmacy called and verifiedno further action needs completed. Mild redness to the area. Pt advised to elevated arm at home andapply warm compresses. * ED Shape Carver Note - Caitlin Crowder RN - 05/30/2024 2:44 PM EDT Wet to dry dressing placed to RLE. Non-adherent dressing applied to LLE * Communication - Amaury Stafford MD - 05/30/2024 2:22 PM EDT Hospital Medicine Note: Received a call by ED attending, to evaluate this patient for possible need for admission. Patient here with worsening p.r.n. chronic wounds, with some erythema around the wound. She was seen at Wound Care center, and was recommended to come into the ED for evaluation. Here, workup does not show any signs of systemic infection. She does not have a fever. Vitals are also stable otherwise. I did see the picture of the wound today on the computer, the right medial leg wound, looks somewhat similar to the previous one. There is some erythema. However attending erythema does not extend any further than that. Patient is not diabetic at baseline. I did not see the patient, but I discussed with the ED attending, and recommended that she would benefit from a course of oral antibiotics and follow up with Wound Care team again. I made this recommendation based on the fact that patient has signs of cellulitis around the wound without actually having any true systemic infection or severe cellulitis at this point. We would need to do a trial of oral antibiotics, before noting if she needs to be admitted for IV antibiotics. Imaging done by the ED, also does not show any signs of air inside the soft tissue or gas gangrene. I would recommend patient going home with Augmentin and doxycycline, to cover usual suspects including community MRSA. ED doctor in agreement with my recommendation. I have not seen this patient but have reviewed the chart in detail. Time spent: 15-20 minutes. * Pt Handout (on AVS) - Ana Fry MD - 05/30/2024 1:58 PM EDT Images from the original note were not included. [address] Chronic Venous Insufficiency: Treating Ulcers If leg swelling because of chronic venous insufficiency isn?t controlled, an open wound (ulcer) canform. Ulcers vary in size and shape. But they usually appear on the inside of the ankle. Treating an ulcer See your healthcare provider. Ulcers need frequent medical care. Special dressings may be applied. You may be given antibiotics to fight infection. Your provider may prescribe medicines, such as aspirin or pentoxifylline, to help the ulcer heal. Your provider may prescribe compression stockings to help with the swelling. Raise (elevate) your legs often to reduce swelling. The ulcer needs oxygen- rich blood to heal. This blood can?t reach the ulcer until swelling is reduced. When to call your healthcare provider Call your healthcare provider right away if you have any of the following: More pain Fever of 100.4F (38C) or higher, or as directed by your provider The area around the ulcer becomes red, sore, or both The ulcer oozes discolored fluid or smells bad Swelling increases suddenly or the dressing feels tight Last Reviewed Date: 2023 00:00:00 [id number] [employer]. All rights reserved. This information is not intended as a substitute for professional medical care. Always follow your healthcare professional's instructions. * Pt Handout (on AVS) - Ana Fry MD - 05/30/2024 1:58 PM EDT [id number] Cellulitis Cellulitis is an infection of the deep layers of skin. A break in the skin, such as a cut or scratch, can let bacteria under the skin. Cellulitis causes the affected skin to become red, swollen, warm, and sore. The reddened areas havea border you can see. An open sore may leak fluid (pus). You may have a fever, chills, and pain. Cellulitis is treated with antibiotics taken for 7 to 10 days. An open sore may be cleaned and covered with cool wet gauze. Symptoms should get better 1 to 2 days after treatment is started. Make sure to take all the antibiotics for the full number of days until they are gone. Keep taking the medicine even if your symptoms go away. If not treated, cellulitis can get into the bloodstream and lymph nodes. The infection can then spread throughout the body. This causes serious illness. Home care Follow these tips: Limit the use of the part of your body with cellulitis. If the infection is on your leg, keep your leg raised while sitting. This helps reduce swelling. Take all of the antibiotic medicine exactly as directed until it is gone. Don't miss any doses, especially during the first 7 days. Finish taking all of the medicine even when your symptoms get better. Keep the affected area clean and dry. Wash your hands with soap and clean, running water before and after touching your skin. Anyone else who touches your skin should also wash his or her hands. Don't share towels. Follow-up care Follow up with your healthcare provider, or as advised. If your infection doesn't go away after finishing the first antibiotic, your healthcare provider will prescribe a different one. When to seek medical advice Call your healthcare provider right away if any of these occur: Red areas that spread Swelling or pain that gets worse Fluid leaking from the skin (pus) Fever higher of 100.4 F (38.0 C) or higher after 2 days on antibiotics Last Reviewed Date: 2021 00:00:00 [id number] [employer]. All rights reserved. This information is not intended as a substitute for professional medical care. Always follow your healthcare professional's instructions. documented in this encounter Plan of Treatment Upcoming Encounters Date Type Department Care Team (Latest Contact Info) Description 06/03/2024 10:40 AM EDT Office Visit Wound Care, [facility] [address] [facility] [place] [place] [address] Yuriy Hilario MD [address] [address] 07/14/2024 10:00 AM EST NeuroDiagnostic Study Neurophysiology, [place] [address] [address] Ramiro Grove, DO [address] [facility] [address] 07/14/2024 11:20 AM EST Office Visit Wound Care, [address] [address] Yuriy Hilario MD [address] [place] [address] 07/29/2024 11:00 AM EST Appointment Cardiac Studies, [address] [address] 09/15/2024 10:00 AM EST Office Visit Cardiology, [address] [address] Anna Adames MD [address] [place] [address] 10/09/2024 11:30 AM EST Hospital Encounter OR GL, Operating Room, [facility] - 4th Floor [address] [place] [phone] Bigg Wetzel MD [address] [facility] [address] 10/09/2024 11:30 AM EST - 10/09/2024 12:31 PM EST Surgery OR [facility], Operating Room, [facility] - [facility] Floor [address] [place] [address] [place] [address] Bigg Wetzel MD [address] [facility] [address] COLONOSCOPY FLEXIBLE PROXIMAL DIAGNOSTIC Pending Results Name Type Priority Associated Diagnoses Date /Time CULTURE, WOUND, DEEP, AEROBIC AND ANAEROBIC Lab STAT 05/30/2024 11:40 AM EDT Scheduled Procedures Name Priority Associated Diagnoses Date/Ti [...] this encounter Medical Devices Implanted Type Area [employer] Device Identifier Shelf Expiration Date Model / Serial / Lot Device Perm Cntrl [id number] - [id number] Implanted:Qty: 2 on 09/27/2015 by Sharda Ruiz, Corey Rucker MD at OR [facility] Uterus [employer] 05/03/2017 [id number] / / [id number] documented as of this encounter Procedures Procedure Name Priority Date/Time Associated Diagnosis Comments XR CHEST 1 VIEW STAT 05/30/2024 12:18 PM EDT XR TIB/FIB 2 VIEWS STAT 05/30/2024 12 :18 PM EDT LACTATE WITH REFLEX IF ABNORMAL STAT 05/30/2024 11:58 AM EDT DIFFERENTIAL, AUTOMATED STAT 05/30/2024 11:58 AM EDT BASIC METABOLIC PANEL STAT 05/30/2024 11:58 AM EDT CK STAT 05/30/2024 11:58 AM EDT CBC STAT 05/30/2024 11:58 AM EDT CBC STAT 05/30/2024 11:58 AM EDT CULTURE, WOUND, DEEP, AEROBIC AND ANAEROBIC STAT 05/30/2024 11:40 AM EDT documented in this encounter Results * XR TIB/FIB 2 VIEWS (05/30/2024 12:18 PM EDT) Anatomical Region Laterality Modality Lower Extremity, TibFib Digital Radiography 05/30/2024 12:0 7 PM EDT Impressions 05/30/2024 12:36 PM EDT IMPRESSION: 1. No plain film evidence of acute osteomyelitis. If indicated, MR can be obtained for further evaluation. 2. Severe osteoarthritis of the medial compartment of the right knee joint. THIS DOCUMENT HAS BEEN ELECTRONICALLY SIGNED BY FELA SANDRA MD Narrative 05/30/2024 12:36 PM EDT PROCEDURE INFORMATION: Exam: XR Right Tibia and Fibula Exam date and time: 05/30/2024 12:07 PM Age: 49 years old Clinical indication: Other: Leg pain and wounds; Additional info: Worsening chronic wounds right lower extremity TECHNIQUE: Imaging protocol: Radiologic exam of the right tibia and fibula. Views: 2 views. COMPARISON: DX (KNEE, KNEE TUNNEL) 10/24/2021 11:31 AM FINDINGS: Limitations: Patient body habitus/technique. Bones/joints: No acute or suspicious osseous abnormalities. Marked narrowing of the right medial joint compartment with associated spurring and marked subchondral sclerosis. Soft tissues: Stable 2 x 1.8 x 1.7 cm dystrophic calcification in the subcutaneous tissues of the anterior lower leg. Procedure Note Fela Sandra MD - 05/30/2024 PROCEDURE INFORMATION: Exam: XR Right Tibia and Fibula Exam date and time: 05/30/2024 12:07 PM Age: 49 years old Clinical indication: Other: Leg pain and wounds; Additional info:Worsening chronic wounds right lower extremity TECHNIQUE: Imaging protocol: Radiologic exam of the right tibia and fibula. Views: 2 views. COMPARISON: DX (KNEE, KNEE TUNNEL) 10/24/2021 11:31 AM FINDINGS: Limitations: Patient body habitus/technique. Bones/joints: No acute or suspicious osseous abnormalities. Markednarrowing of the right medial joint compartment with associated spurring and marked subchondral sclerosis. Soft tissues: Stable 2 x 1.8 x 1.7 cm dystrophic calcification in the subcutaneous tissues of the anterior lower leg. IMPRESSION IMPRESSION: 1. No plain film evidence of acute osteomyelitis. If indicated, MR canbe obtained for further evaluation. 2. Severe osteoarthritis of the medial compartment of the right kneejoint. THIS DOCUMENT HAS BEEN ELECTRONICALLY SIGNED BY FELA SANDRA MD Ana Fry MD RADIOLOGY (RAD [facility]) * XR CHEST 1 VIEW (05/30/2024 12:18 PM EDT) Anatomical Region Laterality Modality Chest Digital Radiogra phy 05/30/2024 12:0 7 PM EDT Impressions 05/30/2024 12:36 PM EDT IMPRESSION: No evidence of active cardiopulmonary disease. THIS DOCUMENT HAS BEEN ELECTRONICALLY SIGNED BY FELA SANDRA MD Narrative 05/30/2024 12:36 PM EDT PROCEDURE INFORMATION: Exam: XR Chest Exam date and time: 05/30/2024 12:07 PM Age: 49 years old Clinical indication: Other: Leg pain and wounds; Additional info: Leg pain and swelling TECHNIQUE: Imaging protocol: Radiologic exam of the chest. Views: 1 view. COMPARISON: DX XR CHEST 1 VIEW 03/11/2024 5:01 PM FINDINGS: Limitations: Low lung volumes. Portable technique. Lungs: Low lung volumes, with vascular crowding. No confluent infiltrates. Pleural spaces: Unremarkable. No pleural effusion. No pneumothorax. Heart/Mediastinum: Prominence of the cardiac silhouette which may be related to magnification. Bones/joints: Unremarkable. Procedure Note Fela Sandra MD - 05/30/2024 PROCEDURE INFORMATION: Exam: XR Chest Exam date and time: 05/30/2024 12:07 PM Age: 49 years old Clinical indication: Other: Leg pain and wounds; Additional info: Leg painand swelling TECHNIQUE: Imaging protocol: Radiologic exam of the chest. Views: 1 view. COMPARISON: DX XR CHEST 1 VIEW 03/11/2024 5:01 PM FINDINGS: Limitations: Low lung volumes. Portable technique. Lungs: Low lung volumes, with vascular crowding. No confluent infiltrates. Pleural spaces: Unremarkable. No pleural effusion. No pneumothorax. Heart/Mediastinum: Prominence of the cardiac silhouette which may berelated to magnification. Bones/joints: Unremarkable. IMPRESSION IMPRESSION: No evidence of active cardiopulmonary disease. THIS DOCUMENT HAS BEEN ELECTRONICALLY SIGNED BY FELA SANDRA MD Ana Fry MD RADIOLOGY (RAD [facility]) * DIFFERENTIAL, AUTOMATED (05/30/2024 11:58 AM EDT) WBC 7.69 4.00 - 10.80 K/uL 05/30/2024 12:05 PM EDT LABORATORY [facility] Neutrophils % 68.9 40.0 - 75.0 % 05/30/2024 12:05 PM EDT LAB[facility] Lymphocytes % 24.6 18.0 - 42.0 % 05/30/2024 12:05 PM EDT LAB[facility] Monocytes % 6.0 1.0 - 11.0 % 05/30/2024 12:05 PM EDT LAB[facility] Eosinophils % 0.1 0.0 - 6.0 % 05/30/2024 12:05 PM EDT LAB[facility] Basophils % 0.3 0.0 - 2.0 % 05/30/2024 12:05 PM EDT LAB[facility]ATORY [facility] Immature Granulocytes % 0.1 0.0 - 2.0 % 05/30/2024 12:05 PM EDT LABORATORY [facility] Absolute Neutrophils 5.30 1.80 - 7.70 K/uL 05/30/2024 12:05 PM EDT LABORATORY [facility] Absolute Lymphocytes 1.89 1.00 - 4.80 K/ul 05/30/2024 12:05 PM EDT LABORATORY GL Absolute Monocytes 0.46 0.00 - 1.10 K/uL 05/30/2024 12:05 PM EDT LABORATORY [facility] Absolute Eosinophils 0.01 0.00 - 0.70 K/uL 05/30/2024 12:05 PM EDT LABORATORY [facility] Absolute Basophils 0.02 0.00 - 0.20 K/uL 05/30/2024 12:05 PM EDT LABORATORY GL Absolute Immature Granulocytes 0.01 0.00 - 0.20 K/uL 05/30/2024 12:05 PM EDT LABORATORY [facility] Blood Venous blood specimen / Unknown Venipuncture / Unknown 05/30/2024 11:58 AM EDT 05/30/2024 12:03 PM EDT Ana Fry MD LAB BLOOD [facility] [address] [address] * (ABNORMAL) CBC (05/30/2024 11:58 AM EDT) Pathologist [facility] WBC 7.69 4.00 - 10.80 K/uL 05/30/2024 12:05 PM EDT LABORATORY [facility] RBC 4.12 3.85 - 5.15 M/uL 05/30/2024 12:05 PM EDT LABORATORY [facility] HGB 11.0(L) 12.0 - 15.3 g/dL 05/30/2024 12:05 PM EDT LABORATORY [facility] HCT 35.1(L) 36.0 - 45.2 % 05/30/2024 12:05 PM EDT LABORATORY [facility] MCV 85.2 81.5 - 97.5 fL 05/30/2024 12:05 PM EDT LABORATORY [facility] MCH 26.7 27.0 - 34.0 pg 05/30/2024 12:05 PM EDT LABORATORY [facility] MCHC 31.3 32.0 - 36.0 g/dL 05/30/2024 12:05 PM EDT LABORATORY [facility] RDW 15.3 11.5 - 15.5 % 05/30/2024 12:05 PM EDT LABORATORY [facility] PLT 272 140 - 400 K/uL 05/30/2024 12:05 PM EDT LABORATORY [facility] MPV 8.7 6.6 - 11.1 fL 05/30/2024 12:05 PM EDT LABORATORY [facility] nRBCs 0 <=0 /100 WBCs 05/30/2024 12:05 PM EDT LABORATORY [facility] Blood Venous blood specimen / Unknown Venipuncture / Unknown 05/30/2024 11:58 AM EDT 05/30/2024 12:03 PM EDT Ana Fry MD LAB BLOOD [facility] [address] [id number] * CK (05/30/2024 11:58 AM EDT) CK 119 26 - 192 U/L 05/30/2024 12:23 PM EDT LABORATORY [facility] Blood Venous blood specimen / Unknown Venipuncture / Unknown 05/30/2024 11:58 AM EDT 05/30/2024 12:03 PM EDT Ana Fry MD LAB BLOOD ORDERAB LES Performing Organization Address [facility] Co de Phone Number LABORATORY [address] [address] * LACTATE WITH REFLEX IF ABNORMAL (05/30/2024 11:58 AM EDT) Lactate 1.2 0.4 - 2.0 mmol/L 05/30/2024 12:21 PM EDT LAB[facility]ATORY [facility] Blood Venous blood specimen / Unknown Venipuncture / Unknown 05/30/2024 11:58 AM EDT 05/30/2024 12:03 PM EDT Ana Fry MD LAB BLOOD ORDERAB LES Performing Organization Address City/[facility]/ZIP Co de Phone Number LABORATORY [address] [phone] * (ABNORMAL) BASIC METABOLIC PANEL (05/30/2024 11:58 AM EDT) BUN 29(H) 6 - 20 mg/dL 05/30/2024 12:23 PM EDT LABORATORY GL CREATININE 0.9 0.5 - 1.0 mg/dL 05/30/2024 12:23 PM EDT LABORATORY GL EGFR 75 >=60 mL/min 05/30/2024 12:23 PM EDT LABORATORY GL Comment:eGFR is calculated b ased on the CKD-EPI 2020 equation. SODIUM 137 135 - 146 mmol/L 05/30/2024 12:23 PM EDT LABORATORY GLH POTASSIUM 4.7 3.5 - 5.1 mmol/L 05/30/2024 12:23 PM EDT LABORATORY [facility] CHLORIDE 101 98 - 107 mmol/L 05/30/2024 12:23 PM EDT LABORATORY [facility] CO2 28 22 - 32 mmol/L 05/30/2024 12:23 PM EDT LABORATORY GL ANION GAP 8 7 - 15 mmol/L 05/30/2024 12:23 PM EDT LABORATORY [facility] GLUCOSE 112 70 - 120 mg/dL 05/30/2024 12:23 PM EDT LABORATORY [facility] CALCIUM 9.3 8.4 - 10.2 mg/dL 05/30/2024 12:23 PM EDT LABORATORY GL Blood Venous blood specimen / Unknown Venipuncture / Unknown 05/30/2024 11:58 AM EDT 05/30/2024 12:03 PM EDT Ana Fry MD LAB BLOOD ORDERAB LES LABORATORY [facility] [address] [place] [address] documented in this encounter Visit Diagnoses Diagnosis Cellulitis of right lower extremity- Primary Cellulitis and abscess of leg, except foot Chronic ulcer of lower extremity, unspecified laterality, unspecified ulcer stage (HCC) Screening for colon cancer Special screening for malignant neoplasms, colon documented in this encounter Administered Medications Inactive Administered Medications - up to 3 most recent administrations Medication Order MAR Action Action Date Dose Rate Site oxyCODONE-acetaminophen 5-325 mg per tab (Percocet) 1 Tablet 1 Tablet, Oral, ONCE, On Sun05/30/24 at 1215, For 1 dose, Maximum of 4 grams (4000 mg) of acetaminophen per day Given 05/30/2024 12:03 PM EDT 1 Tablet oxyCODONE-acetaminophen 5-325 mg per tab (Percocet) 1 Tablet 1 Tablet, Oral, ONCE, On Sun05/30/24 at 1600, For 1 dose, Maximum of 4 grams (4000 mg) of acetaminophen per day Given 05/30/2024 4:13 PM EDT 1 Tablet Piperacillin-Tazobactam (Zosyn) 4.5 g in 100 mL NSS ivpb (HALF hour infusion) IV Piggyback, 4.5 g, ONCE, 1 dose, On Sun05/30/24 at 1215, Administer over 30 Minutes Restarted 05/30/2024 12:40 PM EDT 9 g/hr 210 mL/hr Restarted 05/30/2024 12:17 PM EDT 9 g/hr 210 mL/hr New Bag 05/30/2024 12:08 PM EDT 4.5 g 210 mL/hr vancomycin (Vancocin) 2500 mg in NSS 500 mL ivpb 2,500 mg, IV Piggyback, ONCE, 1 dose, On Sun05/30/24 at 1215 Restarted 05/30/2024 3:18 PM EDT 1,000 mg/hr 230 mL/hr Restarted 05/30/2024 1:38 PM EDT 1,000 mg/hr 230 mL/hr New Bag 05/30/2024 1:05 PM EDT 2,500 mg 230 mL/hr documented in this encounter Active and Recently Administered Medications Times are shown in EDT. Scheduled Medication Order 05/28/2024 05/29/2024 05/30/2024 oxyCODONE-acetaminophen 5-325 mg per tab (Percocet) 1 Tablet (COMPLETED) 1 Tablet, Oral, ONCE, On Sun05/30/24 at 1215, For 1 dose, Maximum of 4 grams (4000 mg) of acetaminophen per day 1203 (Given - Provid er: Gris Farmer RN) oxyCODONE-acetaminophen 5-325 mg per tab (Percocet) 1 Tablet (COMPLETED) 1 Tablet, Oral, ONCE, On Sun05/30/24 at 1600, For 1 dose, Maximum of 4 grams (4000 mg) of acetaminophen per day 1613 (Given - Provid er: Gris Farmer RN) Piperacillin-Tazobactam (Zosyn) 4.5 g in 100 mL NSS ivpb (HALF hour infusion) (COMPLETED) IV Piggyback, 4.5 g, ONCE, 1 dose, On Sun05/30/24 at 1215, Administer over 30 Minutes 1208 (New Bag - Prov ider: Gris Farmer RN)1211 (Paused - Provider: Gris Farmer RN)1217 (Restarted - Provider: Gris Farmer RN)1224 (Paused - Provider: Gris Farmer RN)1240 (Restarted - Provider: Gris Farmer RN)1301 (Stopped - Provider: Gris Farmer RN) vancomycin (Vancocin) 2500 mg in NSS 500 mL ivpb (COMPLETED) 2,500 mg, IV Piggyback, ONCE, 1 dose, On Sun05/30/24 at 1215 1305 (New Bag - Prov ider: Gris Farmer RN)1320 (Paused - Provider: Gris Farmer RN)1338 (Restarted - Provider: Gris Farmer RN)1514 (Paused - Provider: Gris Farmer RN)1518 (Restarted - Provider: Gris Farmer RN)1559 (Stopped - Provider: Gris Farmer RN) documented in this encounter Advance Directives * [...] Power of Attor benoit? No Care Teams Risk Advisor Relationship Specialty Start Date End Date Melissa Cruz PA-C [address] [facility] [address] [place] [address] PCP - General Physician Cadd Instructor 06/02/21 documented as of this encounter
--- OUTSIDE RECORDS SUMMARY | 2024-08-09 23:51 | External Medical Summary | Summary of Care ---
Author Name Unknown Organization [facility] Address [address] [place] [address] Phone [phone] Care Team Providers Care Shipping Assistant Name Role Phone CarylTy mansfieldanthony Downing PA-C Primary Care Provider +1- [phone] Reason for Visit * Reason Comments Wound Care BLE --EDEMA WOUNDS Encounter Details Date Type Department Care Team ([facility] st Contact Info) Description 05/30/2024 10:30 AM EDT Nurse Only Wound Care, [facility] [address] [place] [address] [facility], Nurse Wound Care [address] [place] [address] Wound Care (BLE --EDEMA WOUNDS ) Allergies [...] DAY 90 Tablet 1 03/17/2024 Active Nystatin 575510 UNIT/GM External Powder (Nystop) Apply topically to [...] Next Due Pneumococcal Conjugate Vacci ne, 20-valent ([id number]) 12/04/2022 Pneumococcal Polysaccharide PPV23 (Pneumovax) 05/06/2011 Seasonal [...] 10:40 AM EDT Office Visit Wound Care, [address] [place] [address] Yuriy Hilario MD 27 [facility] [place] [address] 07/14/2024 10:00 AM EST NeuroDiagnostic Study Neurophysiology, [address] [place] [address] Ramiro Grove, DO 200 [facility], [place] [address] 07/14/2024 11:20 AM EST Office Visit Wound Care, [address] [place] [address] Yuriy Hilario MD 27 [address] [facility] [place] [address] 07/29/2024 11:00 AM EST Appointment Cardiac Studies, [address] [place] [address] 09/15/2024 10:00 AM EST Office Visit Cardiology, [address] [place] [address] Anna Adames MD 400 [facility] [place] [address] 10/09/2024 11:30 AM EST Hospital Encounter OR [facility], Operating Room, [facility] - 4th Floor [address] [place] [address] Bigg Wetzel MD [address] [place] [address] 10/09/2024 11:30 AM EST - 10/09/2024 12:31 PM EST Surgery OR [facility], Operating Room, [facility] - 4th Floor [address] [place] [address] Bigg Wetzel MD [address] [place] [address] COLONOSCOPY FLEXIBLE PROXIMAL DIAGNOSTIC Scheduled Procedures Name [...] this encounter Medical Devices Implanted Type Area Mobility Engineer Device Identifier Shelf Expiration Date Model / Serial / Lot Device Perm Cntrl [id number] - [id number] Implanted:Qty: 2 on 09/27/2015 by Sharda Ruiz, Corey Rucker MD at OR [facility] Uterus [employer] 05/03/2017 [id number] / / [id number] documented as of this encounter Advance Directives [...] Power of Attor benoit? No Care Teams Shipping Assistant Relationship Specialty Start Date End Date Melissa Cruz PA-C [address] [facility] [address] [place] [address] PCP - General Physician Strategies Analyst 06/02/21 documented as of this encounter
--- OUTSIDE RECORDS SUMMARY | 2024-08-09 23:51 | External Medical Summary | Summary of Care ---
Author Name Unknown Organization [facility] Address [address] [place] [address] Phone [phone] Care Team Providers Care Cardiology Consultant Name Role Phone Melissa Cruz PA-C Primary Care Provider +1- [phone] Reason for Visit * Reason Onset Date Comments Order Request 05/26/2024 Encounter Details Date Type Department Care Team (Late st Contact Info) Description 05/26/2024 Telephone [place] [address] [place], [place] [id number] Melissa Cruz PA-C [facility] [address] [place], [place] [id number] Order Request Allergies Active Allergy Reactions Criticality [...] DAY 90 Tablet 1 03/17/2024 Active Nystatin 588446 UNIT/GM External Powder (Nystop) Apply topically to [...] Next Due Pneumococcal Conjugate Vacci ne, 20-valent ([id number]) 12/04/2022 Pneumococcal Polysaccharide PPV23 (Pneumovax) 05/06/2011 Seasonal [...] encounter Miscellaneous Notes * Telephone Encounter - Christina Cuadra LPN - 05/28/2024 10:44 AM EDT Refaxed old order to [facility] at this time * Telephone Encounter - Melissa Cruz PA-C - 05/28/2024 7:20 AM EDT Please find out what happened to the previous order. Thanks. * Telephone Encounter - Deirdre Dang OSA - 05/26/2024 3:32 PM EDT An order was requested for this patient. Name of Requesting Provider: [facility] Health Order Requested: Wheelchair Ramp [employer] Diagnosis/Reason for Request: Pt needs wheelchair ramp for home If order request is for Mammogram: Is the patient having any breast symptoms? No Is there a chance of ? No Has the patient had any breast problems in the past? No What location AND department does the patient wish to have their order completed at? [place] Fax Number, if applicable: [phone] [employer] If the caller is not [...] 10:30 AM EDT Nurse Only Wound Care, [address] [address] [facility], Nurse Wound Care [address] [place] [address] 06/03/2024 10:40 AM EDT Office Visit Wound Care, [address] [address] Yuriy Hilario MD 27 [place] [address] 07/14/2024 10:00 AM EST NeuroDiagnostic Study Neurophysiology, [address] [place] [address] Ramiro Grove, DO 200 [place] [address] 07/14/2024 11:20 AM EST Office Visit Wound Care, [address] [address] Yuriy Hilario MD 27 [address] [facility] [place] [address] 07/29/2024 11:00 AM EST Appointment Cardiac Studies, [address] [place] [address] 09/15/2024 10:00 AM EST Office Visit [place] [address] [place] [address] Anna Adames MD [address] [place] [address] 10/09/2024 11:30 AM EST Hospital Encounter OR GL, Operating Room, [facility] - 4th Floor [address] [place] [address] Bigg Wetzel MD [address] [place] [address] 10/09/2024 11:30 AM EST - 10/09/2024 12:31 PM EST Surgery OR [facility], Operating Room, [facility] - 4th Floor [address] [place] [address] Bigg Wetzel MD [address] [place] [address] COLONOSCOPY FLEXIBLE PROXIMAL DIAGNOSTIC Scheduled Procedures Name [...] this encounter Medical Devices Implanted Type Area Fish Hatchery Laborer Device Identifier Shelf Expiration Date Model / Serial / Lot Device Perm Cntrl [id number] - [id number] Implanted:Qty: 2 on 09/27/2015 by Sharda Ruiz, Corey Rucker MD at OR [facility] Uterus [employer] 05/03/2017 [id number] / / [id number] documented as of this encounter Advance Directives [...] Power of Attor benoit? No Care Teams Cardiology Consultant Relationship Specialty Start Date End Date Melissa Cruz PA-C [address] [facility] [place] [address] PCP - General Physician Edge Trimmer Mechanic 06/02/21 documented as of this encounter
--- OUTSIDE RECORDS SUMMARY | 2024-08-09 23:51 | External Medical Summary | Summary of Care ---
Author Name Unknown Organization [facility] Address [address] [place] [address] Phone [phone] Care Team Providers Care Regional Driver Name Role Phone CarylTy mansfieldanthony Downing PA-C Primary Care Provider +1- [phone] Reason for Visit * Reason Comments Wound Care BLE --EDEMA WOUNDS Encounter Details Date Type Department Care Team ([facility] st Contact Info) Description 05/30/2024 10:30 AM EDT Nurse Only Wound Care, [facility] [address] [place] [address] [facility], Nurse Wound Care [address] [place] [address] Wound Care (BLE --EDEMA WOUNDS ) Allergies [...] DAY 90 Tablet 1 03/17/2024 Active Nystatin 990326 UNIT/GM External Powder (Nystop) Apply topically to [...] Next Due Pneumococcal Conjugate Vacci ne, 20-valent ([id number]) 12/04/2022 Pneumococcal Polysaccharide PPV23 (Pneumovax) 05/06/2011 Seasonal [...] 10:40 AM EDT Office Visit Wound Care, [address] [place] [address] Yuriy Hilario MD 27 [place] [address] 07/14/2024 10:00 AM EST NeuroDiagnostic Study Neurophysiology, [address] [place] [address] Ramiro Grove, DO 200 [facility], [place] [address] 07/14/2024 11:20 AM EST Office Visit Wound Care, [address] [place] [address] Yuriy [facility]ilario MD 27 [facility] [address] 07/29/2024 11:00 AM EST Appointment Cardiac Studies, [address] [place] [address] 09/15/2024 10:00 AM EST Office Visit Cardiology, [address] [place] [address] Anna Adames MD 400 [facility] [place] [address] 10/09/2024 11:30 AM EST Hospital Encounter OR [facility], Operating Room, [facility] - 4th Floor [address] [place] [address] Bigg Wetzel MD [address] [place] [address] 10/09/2024 11:30 AM EST - 10/09/2024 12:31 PM EST Surgery OR [facility], Operating Room, [facility] - 4th Floor [address] [place] [address] Bigg Wetzel MD [address] [place] [address] COLONOSCOPY FLEXIBLE PROXIMAL DIAGNOSTIC Scheduled Procedures Name [...] this encounter Medical Devices Implanted Type Area Consulting Services Manager Device Identifier Shelf Expiration Date Model / Serial / Lot Device Perm Cntrl [id number] - [id number] Implanted:Qty: 2 on 09/27/2015 by Sharda Ruiz, Corey Rucker MD at OR [facility] Uterus [employer] 05/03/2017 [id number] / / [id number] documented as of this encounter Advance Directives [...] Power of Attor benoit? No Care Teams Regional Driver Relationship Specialty Start Date End Date Melissa Cruz PA-C [address] [facility] [address] [place] [address] PCP - General Physician Wildlife Technician 06/02/21 documented as of this encounter
--- OUTSIDE RECORDS SUMMARY | 2024-08-09 23:51 | External Medical Summary ---
Author Name Unknown Address Unknown Organization K1F:LABORATORY GL - [address] [place] [address] Laboratory Report Ordering Provider Test Date Status CARLOTTA NELSON 05/30/2024 11:58:21 Final Observation Date Value Abnormality Reference (Units ) Status BUN 05/30/2024 11:58:21 29 Above high normal 6-20 (mg/dL) Final Creatinine 05/30/2024 11:58:21 0.9 0.5-1.0 (mg/dL) Final Glomerular filtration rate/1.73 sq M.predicted [Volume Rate/Area] in Serum, Plasma or Blood by Creatinine-based formula (CKD-EPI) 05/30/2024 11:58:21 75 >=60 (mL/min) Final eGFR is calculated based on the CKD-EPI 2020 equation. Sodium 05/30/2024 11:58:21 137 135-146 (m mol/L) Final Potassium 05/30/2024 11:58:21 4.7 3.5-5.1 (m mol/L) Final Cl 05/30/2024 11:58:21 101 98-107 (mm ol/L) Final CO2 05/30/2024 11:58:21 28 22-32 (mmo l/L) Final Anion gap 05/30/2024 11:58:21 8 7-15 (mmol /L) Final Glucose 05/30/2024 11:58:21 112 70-120 (mg /dL) Final Calcium 05/30/2024 11:58:21 9.3 8.4-10.2 ( mg/dL) Final Performing Location [facility] [address] [facility] [place] [address]
--- OUTSIDE RECORDS SUMMARY | 2024-08-09 23:51 | External Medical Summary ---
Author Name Unknown Address Unknown Organization K1F:LABORATORY [facility] - [address] [place] [address] Laboratory Report Ordering Provider Test Date Status OMARCARLOTTA LOPES 05/30/2024 11:58:21 Final Observation Date Value Abnormality Reference (Units ) Status SYNC LEUKOCYTES IN BLOOD BY AUTOMATED COUNT 05/30/2024 11:58:21 7.69 4.00-10.80 (K/uL) Final Segs 05/30/2024 11:58:21 68.9 40.0-75.0 (%) Final Lymphs % 05/30/2024 11:58:21 24.6 18.0-42.0 (%) Final Monos 05/30/2024 11:58:21 6.0 1.0-11.0 (%) Final Eosinophils 05/30/2024 11:58:21 0.1 0.0-6.0 (%) Final Basos 05/30/2024 11:58:21 0.3 0.0-2.0 (%) Final Immature Granulocyte, Percent 05/30/2024 11:58:21 0.1 0.0-2.0 (%) Final Absolute Segs 05/30/2024 11:58:21 5.30 1.80-7.70 (K/uL) Final Lymphs, absolute 05/30/2024 11:58:21 1.89 1.00-4.80 (K/ul) Final Monos, Abs 05/30/2024 11:58:21 0.46 0.00-1.10 (K/uL) Final Eos, Abs 05/30/2024 11:58:21 0.01 0.00-0.70 (K/uL) Final Basos, Abs 05/30/2024 11:58:21 0.02 0.00-0.20 (K/uL) Final Immature Granulocytes, Number 05/30/2024 11:58:21 0.01 0.00-0.20 (K/uL) Final Performing Location [facility] [address] [facility] [address] [place] [address]
--- OUTSIDE RECORDS SUMMARY | 2024-08-09 23:51 | External Medical Summary | Summary of Care ---
Author Name Unknown Organization [facility] Address [address] [place] [address] Phone [phone] Care Team Providers Care Wound Nurse Name Role Phone CarylTy mansfieldanthony Downing PA-C Primary Care Provider +1- [phone] Reason for Visit * Reason Comments Wound Care BLE --EDEMA WOUNDS Encounter Details Date Type Department Care Team ([facility] st Contact Info) Description 05/30/2024 10:30 AM EDT Nurse Only Wound Care, [facility] [address] [place] [address] [facility], Nurse Wound Care 400 [place] [address] Wound Care (BLE --EDEMA WOUNDS ) Allergies [...] DAY 90 Tablet 1 03/17/2024 Active Nystatin 081713 UNIT/GM External Powder (Nystop) Apply topically to [...] Next Due Pneumococcal Conjugate Vacci ne, 20-valent ([id number]) 12/04/2022 Pneumococcal Polysaccharide PPV23 (Pneumovax) 05/06/2011 Seasonal [...] 10:40 AM EDT Office Visit Wound Care, [address] [place] [address] Yuriy Hilario MD 27 [facility] [place] [address] 07/14/2024 10:00 AM EST NeuroDiagnostic Study Neurophysiology, [address] [place] [address] Ramiro Grove, DO 200 [facility], [place] [address] 07/14/2024 11:20 AM EST Office Visit Wound Care, [address] [place] [address] Yuriy [facility]ilario MD 27 [facility] [address] 07/29/2024 11:00 AM EST Appointment Cardiac Studies, [address] [place] [address] 09/15/2024 10:00 AM EST Office Visit Cardiology, [address] [place] [address] Anna Adames MD 400 [facility] [place] [address] 10/09/2024 11:30 AM EST Hospital Encounter OR [facility], Operating Room, [facility] - 4th Floor [address] [place] [address] Bigg Wetzel MD [address] [place] [address] 10/09/2024 11:30 AM EST - 10/09/2024 12:31 PM EST Surgery OR [facility], Operating Room, [facility] - 4th Floor [address] [place] [address] Bigg Wetzel MD [address] [place] [address] COLONOSCOPY FLEXIBLE PROXIMAL DIAGNOSTIC Scheduled Procedures Name [...] this encounter Medical Devices Implanted Type Area Secretary Of State Device Identifier Shelf Expiration Date Model / Serial / Lot Device Perm Cntrl [id number] - [id number] Implanted:Qty: 2 on 09/27/2015 by Sharda Ruiz, Corey Rucker MD at OR [facility] Uterus [employer] 05/03/2017 [id number] / / [id number] documented as of this encounter Advance Directives [...] Power of Attor benoit? No Care Teams Wound Nurse Relationship Specialty Start Date End Date Melissa Cruz PA-C [address] [facility] [address] [place] [address] PCP - General Physician Manufacturing Coordinator 06/02/21 documented as of this encounter
--- OUTSIDE RECORDS SUMMARY | 2024-08-09 23:51 | External Medical Summary ---
Author Name Unknown Address Unknown Organization K01:[facility] [address] [facility] [address] Laboratory Report Ordering Provider Test Date Status CARLOTTA NELSON 05/30/2024 11:40:54 Final Multiple species of aerobic and/or anaerobic bacteria.
Light growth normal preeti.
No further workup routinely performed. Observation Date Value Abnormality Reference (Units) Status Bacteria identified in Specimen by Culture 05/30/2024 11:40:54 [id number]^BETA STREPTOCOCCUS GROUP B Abnormal Final Unable to quantitate Beta St reptococcus group B Bacteria identified in Specimen by Culture 05/30/2024 11:40:54 [id number]^STAPHYLOCOCCUS AUREUS MRSA Abnormal Final Unable to quantitate Staphyl ococcus aureus MRSA, This patient may require isolation. Gram Stain 05/30/2024 11:40:54 Moderate Polymorphonuclear le ukocytes Abnormal Final Gram Stain 05/30/2024 11:40:54 No squamous epithelial cells seen Abnormal Final Gram Stain 05/30/2024 11:40:54 Many Gram positive cocci Abno rmal Final Gram Stain 05/30/2024 11:40:54 Many Gram negative bacilli Ab normal Final Performing Location [facility] [address] [facility] [address] Ordering Provider Test Date Status CARLOTTA NELSON 05/30/2024 11:40:54 Final Observation Date Value Abnormality Reference (Units ) Status Clindamycin 05/30/2024 11:40:54 <=0.25 Susceptible Final Erythromycin susceptibility 05/30/2024 11:40:54 <=0.25 Susceptible Final Oxacillinsusceptibility 05/30/2024 11:40:54 >=4 Resistant Final Oxacillin/Methicillin resist ant Staphylococci are considered clinically resistant to all Beta-lactam (Penicillin and Cephalosporin) antibiotics. Quinolone antibiotics should also not be used for Staphylococci that are Oxacillin resistant. Tetracyclinesusceptibility 05/30/2024 11:40:54 <=1 Eloina ceptible Final TMP-SMZ susceptibility 05/30/2024 11:40:54 >=320 Resista nt Final Vancomycinsusceptibility 05/30/2024 11:40:54 <=0.5 Susce ptible Final Test: Culture, Wound, Deep, Aerobic and Anaerobic
Specimen Source: Leg, Right
Specimen Type: Deep Wound
Specimen Date: 05/30/2024 1140
Result Date: 06/04/2024 1154
Result Status: Final result
Abnormal: Yes
Resulting Lab: [facility]
[address] [facility] [place] [address]

CULTURE

Unable to quantitate Beta Streptococcus group B (Abnormal)

Unable to quantitate Staphylococcus aureus MRSA, This patient may require
isolation. (Abnormal)

Multiple species of aerobic and/or anaerobic bacteria.Light growth normal
preeti. No further workup routinely performed.

STAIN

Moderate Polymorphonuclear leukocytes

No squamous epithelial cells seen

Many Gram positive cocci

Many Gram negative bacilli

SUSCEPTIBILITY

Staphylococcus
aureus MRSA, This
patient may require
isolation.
METHOD MICROBROTH
DILUTIONS

CLINDAMYCIN <=0.25 Susceptible
ERYTHROMYCIN <=0.25 Susceptible
OXACILLIN >=4 Resistant
[1]
TETRACYCLINE <=1 Susceptible
TRIMETH/SULFAMETHOXAZOLE >=320 Resistant
VANCOMYCIN <=0.5 Susceptible

[1] Oxacillin/Methicillin resistant Staphylococci are considered clinically
resistant to all Beta-lactam (Penicillin and Cephalosporin) antibiotics.
Quinolone antibiotics should also not be used for Staphylococci that are
Oxacillin resistant.

null Performing Location LAB[facility]ORY [facility] - [address] [facility] [address]
--- OUTSIDE RECORDS SUMMARY | 2024-08-09 23:52 | External Medical Summary | Summary of Care ---
Author Name Unknown Organization [facility] Address [address] [place] [address] Phone [phone] Care Team Providers Care Co Director Name Role Phone Melissa Cruz PA-C Primary Care Provider +1- [phone] Reason for Referral * Medication Prior Authorization - Closed Specialty Diagnoses / Procedures Referred By Phylicia zambrano Referred To Contact Diagnoses Mild persistent asthma without complication Melissa Cruz PA-C [address] [place] [address] [place] [id number] Referral ID Status Reason Start Date Expiration Date Visits Re quested Visits Authorized [id number] Closed [phone] Encounter Details Date Type Department Care Team (Late st Contact Info) Description 05/22/2024 Refill [place] [address] [place] [phone] Melissa Cruz PA-C [address] [place] [address] [place] [phone] Mild persistent asthma without complication* Allergies Active Allergy Reactions Criticality Noted Date Comments Aspirin 01/27/2014 Increased bleeding documented as of this encounter (statuses as of 05/22/2024) Medications Medication Sig Dispensed Refills Start Date End Date Status traZODone (DESYREL) 50 MG Tablet Take 1 Tab by mouth at bedtime as needed, may repeat once for Sleep. 30 Tab 08/22/2017 Active clonazePAM 1 MG Oral Tablet (KlonoPIN) 08/12/2021 Active Albuterol Sulfate HFA 108 (90 Base) MCG/ACT Inhalation Aerosol SolutionIndications :Mild persistent asthma without complication 2 puffs every [...] Active Fluticasone Propionate 50 MCG/ACT Nasal Suspension (Flonase)Indication s:Acute maxillary sinusitis, recurrence not specified SPRAY 2 SPRAYS INTO EACH NOSTRIL IN THE MORNING 16 mL 09/30/2022 Active One-A-Day Womens 50 Plus Oral Tablet Take by mouth. Acti ve Furosemide 40 MG Oral Tablet (Lasix)Indications: Lymphedema Take 1 Tablet by mouth in the morning. 90 Tablet 2 07/26/2023 Active Omeprazole 20 MG Oral Capsule Delayed Release (PriLOSEC)Indicatio ns:Gastroesophageal reflux disease without esophagitis TAKE 1 CAPSULE BY MOUTH EVERY DAY 90 Capsule 3 12/03/2023 Active Diclofenac Sodium 75 MG Oral Tablet Delayed Release (Voltaren)Indicatio ns:Primary osteoarthritis of one knee, right TAKE BY [...] Active Cyclobenzaprine HCl 10 MG Oral Tablet (Flexeril)Indicatio ns:Chronic left-sided low back pain with left-sided sciatica Take 1 Tablet by mouth 3 times a day as needed for Muscle spasms. 42 Tablet 03/10/2024 Active Cetirizine HCl 10 MG Oral Tablet (ZyrTEC)Indications :Mild persistent asthma without complication TAKE 1 TABLET BY MOUTH EVERY DAY 90 Tablet 1 03/17/2024 Active Nystatin 746878 UNIT/GM External Powder (Nystop) Apply topically to affected area 3 times a day. Apply to skin folds of both lower legs at time of dressing change or daily. 60 g 3 04/16/2024 Active Potassium Chloride ER 10 MEQ Oral Tablet Extended ReleaseIndications: Edema, unspecified type TAKE 1 TABLET BY MOUTH EVERY DAY IN THE MORNING 90 Tablet 1 04/23/2024 Active Vitamin D3 50 MCG (2000 UT) Oral CapsuleIndications: Vitamin D deficiency TAKE 1 CAPSULE BY MOUTH EVERY DAY IN THE MORNING 90 Capsule 04/23/2024 Active Pregabalin 150 MG Oral Capsule (Lyrica)Indications :Neuropathy TAKE 1 CAPSULE BY MOUTH IN THE MORNING AT NOON IN THE EVENING AND BEFORE BEDTIME 120 Capsule 1 05/03/2024 Active Clotrimazole-Betame thasone 1-0.05 % External CreamIndications:Mu ltiple open wounds of lower leg, unspecified laterality, subsequent encounter Apply topically to affected area 2 times a day. Apply to lower legs once daily at time of dressing change. Avoid applying to deep wounds. 45 g 11 05/19/2024 Active Montelukast Sodium 10 MG Oral Tablet (Singulair)Indicati ons:Mild persistent asthma without complication Take 1 Tablet by mouth at bedtime. 30 Tablet 11 05/22/2024 Active Montelukast Sodium 10 MG Oral Tablet (Singulair) Take 1 Tablet by mouth at bedtime. 30 Tablet 11 10/31/2023 05/22/20 24 Discontinu ed(Refill) documented as of this encounter (statuses as of 05/22/2024) Active Problems Problem Noted Date Diagnosed Date [...] as of this encounter (statuses as of 05/22/2024) Resolved Problems Problem Noted Date Diagnosed Date [...] No, Advance Directive brochure given to patient. iLgia 10/07/2008 02/16/2014 Abdominal pain, other specified site 09/28/2008 02/16/2014 Overview: LUQ but more constant in the L. Sided kidney area Morbid obesity, BMI not known 05/04/2006 11/02/2009 Overview: Per Obesity Taxonomy EXTRINSIC ASTHMA, UNSPEC 05/04/2006 Esophagitis 05/04/2006 03/15/2015 Overview: ICD-10 update of inactive term Major depressive disorder 05/04/2006 Overview: ICD-10 update of inactive term documented as of this encounter (statuses as of 05/22/2024) Immunizations Name Administration Dates Next Due Pneumococcal Conjugate Vacci ne, 20-valent ([id number]) 12/04/2022 Pneumococcal Polysaccharide PPV23 (Pneumovax) 05/06/2011 Seasonal [...] Telephone Encounter - Melissa Cruz PA-C - 05/22/2024 8:56 AM EDTSigned Prescriptions: Disp Refills Montelukast Sodium 10 MG Oral Tablet (Sing*30 Tab*11 Sig: Take 1Tablet by mouth at bedtime.Authorizing Provider: MELISSA CRUZ * Telephone Encounter - Christina CuadraELIZA - 05/22/2024 7:34 AM EDT Did you pend patient's preferred pharmacy and medication before forwarding?yes Pharmacy: [facility] [address] [place] [address] RAHUL HOPKINS Pending Prescriptions: Disp Refills Montelukast Sodium 10 MG Oral Tablet (Sin*30 Tab*11 Sig: Take 1 Tablet by mouth at bedtime. Last Visit: 04/23/2024 (in office), 01/02/2024 (telemedicine) Next Visit: Visit date not found If no future appointments scheduled, and last appointment is greater than a year ago, please schedule patient for a follow-up appointment Last date the medication was ordered: 10/31/23 Is this request for a controlled substance?No Urine Drug Screen: Results for orders placed or performed during the hospital encounter of 08/17/17 TOX SCREEN, URINE, W/O CONFIRMATION Result Value AMPHETAMINES NEGATIVE BARBITURATES NEGATIVE BENZODIAZEPINES NEGATIVE CANNABINOIDS NEGATIVE COCAINE METABOLITE NEGATIVE MORPHINE/ CODEINE NEGATIVE METHADONE METABOLITE NEGATIVE OXYCODONE NEGATIVE NOTE: THE ABOVE SCREENING RESULTS ARE PRESUMPTIVE AND CAN ONLY BE USED FOR MEDICAL PURPOSES. CONFIRMATORY TESTING IS AVAILABLE UPON REQUEST. CUTOFF CONCENTRATION Patient Phone Numbers Labs: Lab Results Component Value Date/Time CREAT 0.7 03/11/2024 05:12 PM CREAT 0.9 01/26/2020 09:02 AM POTASSIUM 3.3 (L) 03/11/2024 05:12 PM POTASSIUM 4.6 01/26/2020 09:02 AM TSH 2.74 05/24/2023 10:20 AM TSH 2.91 05/12/2019 09:16 AM LDL 134 (H) 05/24/2023 10:20 AM LDL 99 08/18/2017 07:17 AM LDL NOT APPLICABLE 08/18/2017 07:17 AM ALT 31 03/11/2024 05:12 PM ALT 9 (L) 08/16/2018 09:12 PM HGBA1C 5.2 05/24/2023 10:20 AM HGBA1C 5.5 05/12/2019 09:16 AM documented in this encounter Plan of Treatment Upcoming Encounters Date Type Department Care Team (Latest Contact Info) Description 05/23/2024 10:00 AM EDT Nurse Only Wound Care, [address] [place] [address] [facility], Nurse Wound Care [address] [place] [address] 05/30/2024 10:30 AM EDT Nurse Only Wound Care, [address] [place] [address] [facility], Nurse Wound Care [address] [place] [address] [place] [address] 06/03/2024 10:40 AM EDT Office Visit Wound Care, [address] [place] [address] Yuriy Hilario MD [facility] [place] [address] 06/06/2024 2:00 PM EDT Appointment Cardiac Studies, [address] [place] [address] 06/16/2024 1:25 PM EST NeuroDiagnostic Study Neurophysiology, [address] [place] [address] Ramiro Grove, DO 200 [place] [address] 09/15/2024 10:00 AM EST Office Visit Cardiology, [address] [place] [address] Anna Adames MD 400 [place] [address] 10/09/2024 11:30 AM EST Hospital Encounter OR GL, Operating Room, [facility] - 4th Floor [address] [place] [address] Bigg Wetzel MD [address] [place] [address] 10/09/2024 11:30 AM EST - 10/09/2024 12:31 PM EST Surgery OR [facility], Operating Room, [facility] - 4th Floor [address] [place] [address] Bigg Wetzel MD [address] [place] [address] COLONOSCOPY FLEXIBLE PROXIMAL DIAGNOSTIC Scheduled Procedures Name [...] this encounter Medical Devices Implanted Type Area Plant Engineer Device Identifier Shelf Expiration Date Model / Serial / Lot Device Perm Cntrl [id number] - [id number] Implanted:Qty: 2 on 09/27/2015 by Sharda Ruiz, Corey Rucker MD at OR [facility] Uterus [employer] 05/03/2017 [id number] / / [id number] documented as of this encounter Visit Diagnoses Diagnosis Mild persistent asthma without complication- Primary Unspecified asthma Screening for colon cancer Special [...] Power of Attor benoit? No Care Teams Co Director Relationship Specialty Start Date End Date Melissa Cruz PA-C [address] [facility] [address] [place] [address] PCP - General Physician Security Systems Administrator 06/02/21 documented as of this encounter
--- OUTSIDE RECORDS SUMMARY | 2024-08-09 23:52 | External Medical Summary | Summary of Care ---
Author Name Unknown Organization [facility] Address [address] [place] [address] Phone [phone] Care Team Providers Care Rubber Curer Name Role Phone CarylMelissa mansfield Chang FONSECA Primary Care Provider +1- [phone] Reason for Visit * Reason Onset Date Comments Appointment 05/19/2024 Encounter Details Date Type Department Care Team ([facility] st Contact Info) Description 05/19/2024 Telephone Wound Care, [facility] [address] [place], [place] [id number] Yuriy Hilario MD [address] [place], [place] [id number] Appointment Allergies Active Allergy Reactions Criticality Noted Date Comments Aspirin 01/27/2014 Increased bleeding documented as of this encounter (statuses as of 05/20/2024) Medications Medication Sig Dispensed Refills Start Date [...] the morning. 90 Tablet 2 07/26/2023 Active Montelukast Sodium 10 MG Oral Tablet (Singulair) Take 1 Tablet by mouth at bedtime. 30 Tablet 11 10/31/2023 Active Omeprazole 20 MG Oral Capsule Delayed [...] DAY 90 Tablet 1 03/17/2024 Active Nystatin 086960 UNIT/GM External Powder (Nystop) Apply topically to [...] deep wounds. 45 g 11 05/19/2024 Active documented as of this encounter (statuses as of 05/20/2024) Active Problems Problem Noted Date Diagnosed Date [...] as of this encounter (statuses as of 05/20/2024) Resolved Problems Problem Noted Date Diagnosed Date [...] as of this encounter (statuses as of 05/20/2024) Immunizations Name Administration Dates Next Due Pneumococcal Conjugate Vacci ne, 20-valent ([id number]) 12/04/2022 Pneumococcal Polysaccharide PPV23 (Pneumovax) 05/06/2011 Seasonal [...] Telephone Encounter - Kalyn Rivera OSA - 05/20/2024 11:40 AM EDT I spoke with the patient and the wound nurse appointment is rescheduled to 05/23/24 at 10:00 am. She cannot make the appointment 05/26/24 at 9:[address] Hilario. That appointment was rescheduled to 06/03/24 at 10:40 am and a wound nurse visit was added for 05/30/24 at 10:00 am. * Telephone Encounter - Kalyn Rivera OSA - 05/20/2024 8:16 AM EDT LMOM for patient to call back. Please offer to reschedule the nurse visit from 05/22/24 to 05/23/24at 10:00 am per the wound nurse if this would be better for her. There are no later appointments with Dr. Hilario 05/26/24 than the 9:40 am. * Telephone Encounter - Venus Strong RN - 05/19/2024 3:38 PM EDT Please call Mica, she can change her appointment this week to Wednesday 05/23 at 1000 if that is better, but there are no appointment times available on . Also 05/26 she is scheduled at 940, there is no other time available. * Telephone Encounter - Anaid Brady OSA - 05/19/2024 1:41 PM EDT Pt calling has nurse appts on 05/22 and 05/26 she is wondering for transpiration can she get them moves still the same days but between - Please advise Thank you documented in this encounter Plan of Treatment Upcoming Encounters Date Type Department Care Team (Latest Contact Info) Description 05/23/2024 10:00 AM EDT Nurse Only Wound Care, [address] [address] [facility], Nurse Wound Care [address] [place], [place] [address] [address] 05/30/2024 10:30 AM EDT Nurse Only Wound Care, [address] [address] [facility], Nurse Wound Care [address] [place], [place] [address] [address] 06/03/2024 10:40 AM EDT Office Visit Wound Care, [address] [place] [address] Yuriy Hilario MD [address] [place] [address] 06/06/2024 2:00 PM EDT Appointment Cardiac Studies, [address] [place] [address] 06/16/2024 1:25 PM EST NeuroDiagnostic Study Neurophysiology, [place] [address] [place] [address] Ramiro Grove, DO 200 [facility], [place] [address] 09/15/2024 10:00 AM EST Office Visit Cardiology, [place] [address] [place] [address] [place] [address] Anna [facility]ames MD 400 [facility] [place] [address] 10/09/2024 11:30 AM EST Hospital Encounter OR [facility], Operating Room, [facility] - 4th Floor [address] [place] [address] Bigg Wetzel MD [address] [place] [address] 10/09/2024 11:30 AM EST - 10/09/2024 12:31 PM EST Surgery OR [facility], Operating Room, [facility] - 4th Floor [address] [place] [id number] Bigg Wetzel MD [address] [place] [address] COLONOSCOPY FLEXIBLE PROXIMAL DIAGNOSTIC Scheduled Procedures Name [...] this encounter Medical Devices Implanted Type Area Cyber Analyst Device Identifier Shelf Expiration Date Model / Serial / Lot Device Perm Cntrl [id number] - [id number] Implanted:Qty: 2 on 09/27/2015 by Sharda Ruiz, Corey Rucker MD at OR [facility] Uterus [employer] 05/03/2017 [id number] / / [id number] documented as of this encounter Advance Directives [...] Power of Attor benoit? No Care Teams Rubber Curer Relationship Specialty Start Date End Date Melissa Cruz PA-C [address] [facility] [address] [place] [address] PCP - General Physician Subscription Clerk 06/02/21 documented as of this encounter
--- OUTSIDE RECORDS SUMMARY | 2024-08-09 23:52 | External Medical Summary | Summary of Care ---
Author Name Unknown Organization [facility] Address [address] [place] [address] Phone [phone] Care Team Providers Care Staff Registered Nurse Name Role Phone CarylTy mansfieldanthony Downing PA-C Primary Care Provider +1- [phone] Reason for Visit * Reason Comments Wound Care BLE -- WOUNDS EDEMA Encounter Details Date Type Department Care Team ([facility] st Contact Info) Description 05/27/2024 12:00 PM EDT Nurse Only Wound Care, [facility] [address] [place] [address] [facility], Nurse Wound Care [address] [place] [address] Wound Care (BLE -- WOUNDS EDEMA ) Allergies Active Allergy Reactions Criticality Noted Date Comments Aspirin 01/27/2014 Increased bleeding documented as of this encounter (statuses as of 05/27/2024) Medications Medication Sig Dispensed Refills Start Date [...] DAY 90 Tablet 1 03/17/2024 Active Nystatin 952688 UNIT/GM External Powder (Nystop) Apply topically to [...] as of this encounter (statuses as of 05/27/2024) Active Problems Problem Noted Date Diagnosed Date [...] as of this encounter (statuses as of 05/27/2024) Resolved Problems Problem Noted Date Diagnosed Date [...] as of this encounter (statuses as of 05/27/2024) Immunizations Name Administration Dates Next Due Pneumococcal Conjugate Vacci ne, 20-valent ([id number]) 12/04/2022 Pneumococcal Polysaccharide PPV23 (Pneumovax) 05/06/2011 Seasonal [...] No 03/10/2024 Does the household have a [facility] source of income? (Household - for ages [...] Patient Instructions * Patient Instructions* Megha López, HISTOLOGICAL ILLUSTRATOR - 05/27/2024 2:07 PM EDT Discharge Instructions: Unna Boot You will be [...] Nursing Notes * Megha López LPN - 05/27/2024 11:55 AM EDT Assisted to transfer safely from w/c to exam seating -- aware to not rise unassisted for her safety. Today working with RNMumtaz to provide Mica's treatment. Unna boots have slid to mid horn bilaterally. And Surgilast slid as well. Mica did not think to remove prior to visit despite prior education and encouragement. She also C/O pain in Right medial wound -- Wounds presented with Heavy Serosanguinous drainage from bilateral lower extremity wounds. Unna boots and dressings removed from BLE -- Wound sites then legs / feet washed with soap and water -- Right medial proximal wound continues to present as declining - she too has larger and declining wounds to the more interior to posterior wound sites of this fold. Wounds at Right knee tissue toonoted have gotten larger. See photos from this date. LLE - wounds present as unchanged at this time. Most proximal skin fold has more irritation noted. Provided reminder of need for Vinegar spray and Fluff gauze. She states is doing this as per 's order. Post photos and measurements provided Dressings per order of Unna Z to upper leg area then Unna Z from toes to knee per usual. Dressings applied to buttress skin folds of Deirdrex -- ABDs in attempts to support tissue and maintain Unna Boot placement longer. Unna boot safety reviewed as well as need to keep tissue buttressed. Assisted with socks and shoes then to transfer safely to w/c Propelled by S.F. to check out. Discharge Instructions: Unna Boot [...] 10:30 AM EDT Nurse Only Wound Care, [address] [address] [facility], Nurse Wound Care [address] [place] [address] 06/03/2024 10:40 AM EDT Office Visit Wound Care, [address] [address] Yuriy Hilario MD [address] [place] [address] 06/06/2024 2:00 PM EDT Appointment Cardiac Studies, [address] [place] [address] 06/16/2024 1:25 PM EST NeuroDiagnostic Study Neurophysiology, [address] [place] [address] aRmiro Grove, DO 200 [facility] [place] [address] 09/15/2024 10:00 AM EST Office Visit Cardiology, [address] [place] [address] Anna Adames MD [address] [place] [address] [place] [address] 10/09/2024 11:30 AM EST Hospital Encounter OR GL, Operating Room, [facility] - 4th Floor [address] [place] [address] Bigg Wetzel MD [address] [place] [address] 10/09/2024 11:30 AM EST - 10/09/2024 12:31 PM EST Surgery OR [facility], Operating Room, [facility] - 4th Floor [address] [place] [phone] Bigg Wetzel MD [address] [place] [address] COLONOSCOPY FLEXIBLE PROXIMAL DIAGNOSTIC Scheduled Procedures Name [...] this encounter Medical Devices Implanted Type Area Machine Welder Device Identifier Shelf Expiration Date Model / Serial / Lot Device Perm Cntrl [id number] - [id number] Implanted:Qty: 2 on 09/27/2015 by Sharda Ruiz, Corey Rucker MD at OR [facility] Uterus [employer] 05/03/2017 [id number] / / [id number] documented as of this encounter Visit Diagnoses [...] Power of Attor benoit? No Care Teams Staff Registered Nurse Relationship Specialty Start Date End Date Melissa Cruz PA-C [address] [facility] [address] [place] [address] PCP - General Physician Train Attendant 06/02/21 documented as of this encounter
--- OUTSIDE RECORDS SUMMARY | 2024-08-09 23:52 | External Medical Summary | Summary of Care ---
Author Name Unknown Organization [facility] Address [address] [place] [address] Phone [phone] Care Team Providers Care Cylinder Press Operator Helper Name Role Phone CarylTy mansfieldanthony Downing PA-C Primary Care Provider +1- [phone] Reason for Visit * Reason Comments Wound Care Bilateral legs Encounter Details Date Type Department Care Team ([facility] st Contact Info) Description 05/23/2024 10:00 AM EDT Nurse Only Wound Care, [facility] [address] [place] [address] [facility], Nurse Wound Care [address] [place] [address] Wound Care (Bilateral legs) Allergies Active Allergy Reactions Criticality Noted Date Comments Aspirin 01/27/2014 Increased bleeding documented as of this encounter (statuses as of 05/23/2024) Medications Medication Sig Dispensed Refills Start Date [...] DAY 90 Tablet 1 03/17/2024 Active Nystatin 261851 UNIT/GM External Powder (Nystop) Apply topically to [...] as of this encounter (statuses as of 05/23/2024) Active Problems Problem Noted Date Diagnosed Date [...] as of this encounter (statuses as of 05/23/2024) Resolved Problems Problem Noted Date Diagnosed Date [...] as of this encounter (statuses as of 05/23/2024) Immunizations Name Administration Dates Next Due Pneumococcal Conjugate Vacci ne, 20-valent ([id number]) 12/04/2022 Pneumococcal Polysaccharide PPV23 (Pneumovax) 05/06/2011 Seasonal [...] * Patient Instructions* Venus Strong RN - 05/23/2024 2:02 PM EDT Compression Therapy Education: Any questions, redness or swelling around the wound and development of a temperature of 101F or greater, please contact the [facility]. Please check your toes frequently. If they become blue, purple, pale, cool, numb, and/or tingling elevate your leg higher than your heart for one hour. If you have no relief of the symptoms, cut the entire wrap off and call the [facility], . Keep the wrap dry. If the wrap slides down or bunches at the ankle, call [facility]. Elevate legs above heart for 30 minutes 2-3 times a day. documented in this encounter Nursing Notes * Venus Strong RN - 05/23/2024 12:55 PM EDT Dressings removed and legs washed with soap and water. Bilateral wraps had slid partially down between appointments, patient states that right wrap was causing some discomfort in he medial leg creasewhere a wound is present. Patient had been instructed to call if she has discomfort or if wrap sliddown, but she did not. Today I reapplied dressings, Vaseline / triamcinolone to folds in thigh and proximal lower leg, buttressed with gauze to keep skin edges . Vaseline to woundbeds, covered gauze and ABD's and optilocks. Unnaboots applied to bilateral lower legs. Again reviewed compression education with patient. documented in this encounter Plan of Treatment Upcoming Encounters Date Type Department Care Team (Latest Contact Info) Description 05/30/2024 10:30 AM EDT Nurse Only Wound Care, [address] [address] [facility], Nurse Wound Care [address] [place] [address] 06/03/2024 10:40 AM EDT Office Visit Wound Care, [address] [address] Yuriy Hilario MD [address] [place] [address] 06/06/2024 2:00 PM EDT Appointment Cardiac Studies, [address] [address] 06/16/2024 1:25 PM EST NeuroDiagnostic Study Neurophysiology, [place] 21 [place] [address] Ramiro Grove, DO 200 [place] [address] 09/15/2024 10:00 AM EST Office Visit Cardiology, [address] [place] [address] Anna Adames MD 400 [place] [address] 10/09/2024 11:30 AM EST Hospital Encounter OR [facility], Operating Room, [facility] - 4th Floor [address] [place] [address] Bigg Wetzel MD [address] [place] [address] 10/09/2024 11:30 AM EST - 10/09/2024 12:31 PM EST Surgery OR [facility], Operating Room, [facility] - 4th Floor [address] [place] [phone] Bigg Wetzel MD [address] [place] [address] COLONOSCOPY FLEXIBLE PROXIMAL DIAGNOSTIC Scheduled Procedures Name [...] this encounter Medical Devices Implanted Type Area Fruit Stuffer Device Identifier Shelf Expiration Date Model / Serial / Lot Device Perm Cntrl [id number] - [id number] Implanted:Qty: 2 on 09/27/2015 by Sharda Ruiz, Corey Rucker MD at OR [facility] Uter[employer] 05/03/2017 [id number] / / [id number] documented as of this encounter Visit Diagnoses Diagnosis Dermatitis- Primary Contact dermatitis and other eczema, due to unspecified cause Venous insufficiency Unspecified venous (peripheral) insufficiency Type 2 diabetes mellitus with hemoglobin A1c goal of less than 7.0% (HCC) Multiple open wounds of lower leg, unspecified laterality, subsequent encounter Lymphedema Other lymphedema Class 3 severe obesity [...] Power of Attor benoit? No Care Teams Cylinder Press Operator Helper Relationship Specialty Start Date End Date Melissa Cruz PA-C [address] [address] [place] [address] PCP - General Physician District Ranger 06/02/21 documented as of this encounter
--- OUTSIDE RECORDS SUMMARY | 2024-08-09 23:52 | External Medical Summary | Summary of Care ---
Author Name Unknown Organization [facility] Address [address] [place] [address] Phone [phone] Care Team Providers Care Deli/Bakery Associate Name Role Phone Melissa Cruz PA-C Primary Care Provider +1- [phone] Reason for Visit * Reason Onset Date Comments Home Health 02/18/2024 Encounter Details Date Type Department Care Team (Late st Contact Info) Description 02/18/2024 Telephone [place] [address] [place], [place] [phone] Melissa Cruz PA-C [facility]2 [facility] [address] [place], [place] [address] Home Health Allergies Active Allergy Reactions Criticality Noted Date Comments Aspirin 01/27/2014 Increased bleeding documented as of this encounter (statuses as of 05/19/2024) Medications Medication Sig Dispensed Refills Start Date [...] Additional Information Patient not taking.Reported on 05/19/2024 documented as of this encounter (statuses as of 05/19/2024) Active Problems Problem Noted Date Diagnosed Date [...] as of this encounter (statuses as of 05/19/2024) Resolved Problems Problem Noted Date Diagnosed Date [...] as of this encounter (statuses as of 05/19/2024) Immunizations Name Administration Dates Next Due Pneumococcal Conjugate Vacci ne, 20-valent ([id number]) 12/04/2022 Pneumococcal Polysaccharide PPV23 (Pneumovax) 05/06/2011 Seasonal [...] encounter Miscellaneous Notes * Telephone Encounter - Andie Perez LPN - 02/18/2024 2:37 PM EDT PT/OT/ST Eval Start of Care/Continuation Jennifer BARILLAS, Calling from: [facility] OT Plan of care: 1 times per week for 4 weeks: Focusing on: lymphedema, functional mobility skills Concerns: no None Symptoms: none Vitals: T 98.8 P 68 RR 17 BP 110/62 SP O2 98 Lung sounds clear Weight n/a Blood sugar n/a Narrative: Jennifer BARILLAS calling from [facility]. Patient is being seen for lymphedema and functionality Please fax new orders to [facility] Home Health Advised that additional visit orders will be signed by Dr. Juarez and to fax to the office for signature documented in this encounter Plan of Treatment Upcoming Encounters Date Type Department Care Team (Latest Contact Info) Description 05/22/2024 2:00 PM EDT Nurse Only Wound Care, [address] [address] [facility], Nurse Wound Care [address] [place] [address] 05/26/2024 9:40 AM EDT Office Visit Wound Care, [address] [address] Yuriy Hilario MD [address] [place] [address] 06/06/2024 2:00 PM EDT Appointment Cardiac Studies, [address] [place] [address] 06/16/2024 1:25 PM EST NeuroDiagnostic Study Neurophysiology, [address] [place] [address] Ramiro Grove, DO 200 [facility], [place] [address] 09/15/2024 10:00 AM EST Office Visit Cardiology, [address] [address] Anna Adames MD 400 [place] [address] 10/09/2024 11:30 AM EST Hospital Encounter OR [facility], Operating Room, [facility] - 4th Floor [address] [place], [place] [address] [address] Bigg Wetzel MD 132 [facility] [place] [address] 10/09/2024 11:30 AM EST - 10/09/2024 12:31 PM EST Surgery [facility], Operating Room, [facility] - 4th Floor [address] [place] [address] Bigg Wetzel MD [address] [place] [address] COLONOSCOPY FLEXIBLE PROXIMAL DIAGNOSTIC Scheduled Procedures Name [...] this encounter Medical Devices Implanted Type Area Inverter And Clipper Device Identifier Shelf Expiration Date Model / Serial / Lot Device Perm Cntrl [id number] - [id number] Implanted:Qty: 2 on 09/27/2015 by Sharda Ruiz, Corey Rucker MD at OR [facility] Uter[employer] 05/03/2017 [id number] / / [id number] documented as of this encounter Advance Directives [...] Power of Attor benoit? No Care Teams Deli/Bakery Associate Relationship Specialty Start Date End Date Melissa Cruz PA-C [address] [facility] [address] [place] [address] PCP - General Physician Timekeeping Supervisor 06/02/21 documented as of this encounter
--- OUTSIDE RECORDS SUMMARY | 2024-08-09 23:52 | External Medical Summary | Summary of Care ---
Author Name Unknown Organization [facility] Address [address] [place] [address] Phone [phone] Care Team Providers Care Chemical Pathologist Name Role Phone CarylMelissa mansfield Chang FONSECA Primary Care Provider +1- [phone] Reason for Visit * Reason Onset Date Comments Appointment 05/19/2024 Encounter Details Date Type Department Care Team ([facility] st Contact Info) Description 05/19/2024 Telephone Wound Care, [facility] [address] [place], [place] [phone] Yuriy Hilario MD [address] [place], [place] [address] Appointment Allergies Active Allergy Reactions Criticality Noted [...] DAY 90 Tablet 1 03/17/2024 Active Nystatin 449594 UNIT/GM External Powder (Nystop) Apply topically to [...] Next Due Pneumococcal Conjugate Vacci ne, 20-valent ([id number]) 12/04/2022 Pneumococcal Polysaccharide PPV23 (Pneumovax) 05/06/2011 Seasonal [...] offer to reschedule the nurse visit from 06/22/24 to 06/23/24at 10:00 am per the wound nurse if [...] 2:00 PM EDT Nurse Only Wound Care, [address] [address] [facility], Nurse Wound Care [address] [place], [place] [address] [address] 05/26/2024 9:40 AM EDT Office Visit Wound Care, [address] [address] Yuriy Hilario MD [address] [place] [address] 06/06/2024 2:00 PM EDT Appointment Cardiac Studies, [address] [address] 06/16/2024 1:25 PM EST NeuroDiagnostic Study Neurophysiology, [place] [facility] [address] Ramiro Grove, DO 200 [place] [address] 09/15/2024 10:00 AM EST Office Visit Cardiology, [address] [place] [address] Anna Adames MD 400 [facility] [place] [address] 10/09/2024 11:30 AM EST Hospital Encounter OR [facility], Operating Room, [facility] - 4th Floor [address] [place], [place] [address] [phone] Bigg Wetzel MD [address] [place] [address] 10/09/2024 11:30 AM EST - 10/09/2024 12:31 PM EST Surgery [facility], Operating Room, [facility] - 4th Floor [address] [place] [address] Bigg Wetzel MD [address] [place] [address] COLONOSCOPY FLEXIBLE PROXIMAL DIAGNOSTIC Scheduled Procedures Name [...] encounter Medical Devices Implanted Type Area Machine Operator Slitter Technician Device Identifier Shelf Expiration Date Model / Serial / Lot Device Perm Cntrl [id number] - [id number] Implanted:Qty: 2 on 09/27/2015 by Sharda Ruiz, Corey Rucker MD at OR [facility] Uter[employer] 05/03/2017 [id number] / / [id number] documented as of this encounter Advance Directives [...] Power of Attor benoit? No Care Teams Chemical Pathologist Relationship Specialty Start Date End Date Melissa Cruz PA-C [address] [address] [place] [address] PCP - General Physician Physical Fitness Teacher 06/02/21 documented as of this encounter
--- OUTSIDE RECORDS SUMMARY | 2024-08-09 23:52 | External Medical Summary | Summary of Care ---
Author Name Unknown Organization [facility] Address [address] [place] [address] Phone [phone] Care Team Providers Care Cloak Room Attendant Name Role Phone CarylMelissa mansfield Chang FONSECA Primary Care Provider +1- [phone] Reason for Visit * Reason Onset Date Comments Appointment 05/19/2024 Encounter Details Date Type Department Care Team ([facility] st Contact Info) Description 05/19/2024 Telephone Wound Care, [facility] [address] [place], [place] [phone] Yuriy Hilario MD [address] [place], [place] [phone] Appointment Allergies Active Allergy Reactions Criticality Noted [...] DAY 90 Tablet 1 03/17/2024 Active Nystatin 120693 UNIT/GM External Powder (Nystop) Apply topically to [...] Next Due Pneumococcal Conjugate Vacci ne, 20-valent ([id number]) 12/04/2022 Pneumococcal Polysaccharide PPV23 (Pneumovax) 05/06/2011 Seasonal [...] encounter Miscellaneous Notes * Telephone Encounter - Leeroy Rondon OSA - 05/23/2024 3:20 PM EDT Pt called to get a nurse visit for May 28 early as possible please to get her legs rewrapped. Pt's call back is [phone] * Telephone Encounter - Kalyn Rivera OSA - 05/20/2024 11:40 AM EDT I spoke with the patient and the wound nurse appointment is rescheduled to 05/23/24 at 10:00 am. She cannot make the appointment 05/26/24 at 9:[address] Hilario. That appointment was rescheduled to 06/03/24 at 10:40 am and a wound nurse visit was added for 05/30/24 at 10:30 am. * Telephone Encounter - Kalyn Rivera [...] 10:30 AM EDT Nurse Only Wound Care, [address] [place] [address] [facility], Nurse Wound Care [address] [place] [address] [place] [address] 06/03/2024 10:40 AM EDT Office Visit Wound Care, [address] [place] [address] Yuriy Hilario MD [place] [address] 06/06/2024 2:00 PM EDT Appointment Cardiac Studies, [facility] 400 [facility] [place] [address] 06/16/2024 1:25 PM EST NeuroDiagnostic Study Neurophysiology, [address] [address] Ramiro Grove, DO [address] [facility], [place] [address] 09/15/2024 10:00 AM EST Office Visit Cardiology, [place] 400 [facility] [place] [address] Anna Adames MD 400 [facility] [place] [address] 10/09/2024 11:30 AM EST Hospital Encounter OR [facility], Operating Room, [facility] - 4th Floor [address] [place] [address] Bigg Wetzel MD [address] [place] [address] 10/09/2024 11:30 AM EST - 10/09/2024 12:31 PM EST Surgery OR [facility], Operating Room, [facility] - 4th Floor [address] [place] [address] [place] [address] Bigg Wetzel MD [address] [place] [address] COLONOSCOPY FLEXIBLE PROXIMAL DIAGNOSTIC Scheduled Procedures Name [...] this encounter Medical Devices Implanted Type Area Project Management Engineer Device Identifier Shelf Expiration Date Model / Serial / Lot Device Perm Cntrl [id number] - [id number] Implanted:Qty: 2 on 09/27/2015 by Sharda Ruiz, Corey Rucker MD at OR [facility] Uter[employer] 05/03/2017 [id number] / / [id number] documented as of this encounter Advance Directives [...] Power of Attor benoit? No Care Teams Cloak Room Attendant Relationship Specialty Start Date End Date Melissa Cruz PA-C [address] [address] [place] [address] PCP - General Physician Manager Of Supply Chain 06/02/21 documented as of this encounter
--- OUTSIDE RECORDS SUMMARY | 2024-08-09 23:52 | External Medical Summary | Summary of Care ---
Author Name Unknown Organization [facility] Address [address] [place] [address] Phone [phone] Care Team Providers Care Public Policy Analyst Name Role Phone CarylMelissa mansfield Chang FONSECA Primary Care Provider +1- [phone] Reason for Visit * Reason Onset Date Comments Appointment 05/19/2024 Encounter Details Date Type Department Care Team ([facility] st Contact Info) Description 05/19/2024 Telephone Wound Care, [facility] [address] [place], [place] [phone] Yuriy Hilario MD [address] [place], [place] [phone] Appointment Allergies Active Allergy Reactions Criticality Noted [...] DAY 90 Tablet 1 03/17/2024 Active Nystatin 166338 UNIT/GM External Powder (Nystop) Apply topically to [...] Next Due Pneumococcal Conjugate Vacci ne, 20-valent ([id number]) 12/04/2022 Pneumococcal Polysaccharide PPV23 (Pneumovax) 05/06/2011 Seasonal [...] 2:00 PM EDT Nurse Only Wound Care, [address] [address] [facility], Nurse Wound Care [address] [place], [place] [address] [address] 05/26/2024 9:40 AM EDT Office Visit Wound Care, [address] [address] Yuriy Hilario MD [address] [place] [address] 06/06/2024 2:00 PM EDT Appointment Cardiac Studies, [address] [address] 06/16/2024 1:25 PM EST NeuroDiagnostic Study Neurophysiology, [place] [facility] [address] Ramiro Grove, DO 200 [facility] [address] 09/15/2024 10:00 AM EST Office Visit Cardiology, [address] [place] [address] Anna Adames MD 400 [facility] [place] [address] 10/09/2024 11:30 AM EST Hospital Encounter OR [facility], Operating Room, [facility] - 4th Floor [address] [place], [place] [address] [phone] Bigg Wetzel MD [address] [place] [address] 10/09/2024 11:30 AM EST - 10/09/2024 12:31 PM EST Surgery [facility], Operating Room, [facility] - 4th Floor [address] [place] [address] Bigg Wetzel MD [address] [place] [address] COLONOSCOPY FLEXIBLE PROXIMAL DIAGNOSTIC Scheduled Procedures Name [...] this encounter Medical Devices Implanted Type Area Supervisor Pipe Finishing Device Identifier Shelf Expiration Date Model / Serial / Lot Device Perm Cntrl [id number] - [id number] Implanted:Qty: 2 on 09/27/2015 by Sharda Ruiz, Corey Rucker MD at OR [facility] Uterus [employer] 05/03/2017 [id number] / / [id number] documented as of this encounter Advance Directives [...] Power of Attor benoit? No Care Teams Public Policy Analyst Relationship Specialty Start Date End Date Melissa Cruz PA-C [address] [address] [place] [address] PCP - General Physician Regulation Supervisor 06/02/21 documented as of this encounter
--- OUTSIDE RECORDS SUMMARY | 2024-08-09 23:52 | External Medical Summary | Summary of Care ---
Author Name Unknown Organization [facility] Address [address] [place] [address] Phone [phone] Care Team Providers Care Fire Fighter [employer] Name Role Phone Melissa Cruz PA-C Primary Care Provider +1- [phone] Reason for Visit * Reason Onset Date Comments Order Request 05/26/2024 Encounter Details Date Type Department Care Team (Late st Contact Info) Description 05/26/2024 Telephone [place] [address] [address] [place], [place] [phone] Melissa Cruz PA-C [facility]2 [facility] [address] [place], [place] [phone] Order Request Allergies Active Allergy Reactions Criticality [...] DAY 90 Tablet 1 03/17/2024 Active Nystatin 953797 UNIT/GM External Powder (Nystop) Apply topically to [...] Next Due Pneumococcal Conjugate Vacci ne, 20-valent ([id number]) 12/04/2022 Pneumococcal Polysaccharide PPV23 (Pneumovax) 05/06/2011 Seasonal [...] 10:44 AM EDT Refaxed old order to [facility] at this time * Telephone Encounter - Melissa Cruz PA-C - 05/28/2024 7:20 AM EDT Please find out what happened to the previous order. Thanks. * Telephone Encounter - Deirdre Dang OSA - 05/26/2024 3:32 PM EDT An order was requested for this patient. Name of Requesting Provider: [facility] Health Order Requested: Wheelchair Ramp [employer] Diagnosis/Reason for Request: Pt needs wheelchair ramp for home If order request is for Mammogram: Is the patient having any breast symptoms? No Is there a chance of ? No Has the patient had any breast problems in the past? No What location AND department does the patient wish to have their order completed at? [facility] Fax Number, if applicable: [phone] [employer] If the caller is not [...] 10:30 AM EDT Nurse Only Wound Care, [address] [address] [facility], Nurse Wound Care [address] [place] [address] 06/03/2024 10:40 AM EDT Office Visit Wound Care, [address] [address] Yuriy Hilario MD 27 [place] [address] 07/14/2024 10:00 AM EST NeuroDiagnostic Study Neurophysiology, [address] [place] [address] Ramiro Grove, DO 200 [place] [address] 07/14/2024 11:20 AM EST Office Visit Wound Care, [address] [address] Yuriy Hliario MD [address] [place] [address] 07/29/2024 11:00 AM EST Appointment Cardiac Studies, [address] [place] [address] 09/15/2024 10:00 AM EST Office Visit [place] [address] [place] [address] Anna Adames MD [address] [place] [address] 10/09/2024 11:30 AM EST Hospital Encounter [facility], Operating Room, [facility] - 4th Floor [address] [place] [address] Bigg Wetzel MD [address] [place] [address] 10/09/2024 11:30 AM EST - 10/09/2024 12:31 PM EST Surgery OR [facility], Operating Room, [facility] - 4th Floor [address] [place] [address] Bigg Wetzel MD [address] [place] [address] COLONOSCOPY FLEXIBLE PROXIMAL DIAGNOSTIC Scheduled Procedures Name [...] this encounter Medical Devices Implanted Type Area Wallpaper Cleaner Device Identifier Shelf Expiration Date Model / Serial / Lot Device Perm Cntrl [id number] - [id number] Implanted:Qty: 2 on 09/27/2015 by Sharda Ruiz, Corey Rucker MD at OR [facility] Uter[employer] 05/03/2017 [id number] / / [id number] documented as of this encounter Advance Directives [...] Power of Attor benoit? No Care Teams Fire Fighter [employer] Relationship Specialty Start Date End Date Melissa Cruz PA-C 475[address] [facility] [place] [address] PCP - General Physician Machine Quilt Stuffer 06/02/21 documented as of this encounter
--- OUTSIDE RECORDS SUMMARY | 2024-08-09 23:52 | External Medical Summary | Summary of Care ---
Author Name Unknown Organization [facility] Address [address] [place] [address] Phone [phone] Care Team Providers Care Used Car Make Ready Mechanic Name Role Phone CarylMelissa mansfield Chang FONSECA Primary Care Provider +1- [phone] Reason for Visit * Reason Onset Date Comments Appointment 05/19/2024 Encounter Details Date Type Department Care Team ([facility] st Contact Info) Description 05/19/2024 Telephone Wound Care, [facility] [address] [place], [place] [id number] Yuriy Hilario MD [address] [place], [place] [id number] Appointment Allergies Active Allergy Reactions Criticality Noted [...] DAY 90 Tablet 1 03/17/2024 Active Nystatin 899552 UNIT/GM External Powder (Nystop) Apply topically to [...] Next Due Pneumococcal Conjugate Vacci ne, 20-valent ([id number]) 12/04/2022 Pneumococcal Polysaccharide PPV23 (Pneumovax) 05/06/2011 Seasonal [...] 10:00 AM EDT Nurse Only Wound Care, [address] [address] [facility], Nurse Wound Care [address] [place], [place] [address] [address] 05/30/2024 10:30 AM EDT Nurse Only Wound Care, [address] [address] [facility], Nurse Wound Care [address] [place], [place] [address] [address] 06/03/2024 10:40 AM EDT Office Visit Wound Care, [address] [place] [address] Yuriy Hilario MD [address] [place] [address] 06/06/2024 2:00 PM EDT Appointment Cardiac Studies, [address] [place] [address] 06/16/2024 1:25 PM EST NeuroDiagnostic Study Neurophysiology, [place] [address] [place] [address] Ramiro Grove, DO 200 [facility], [place] [address] 09/15/2024 10:00 AM EST Office Visit Cardiology, [place] [address] [place] [address] Anna [facility]ames MD 400 [facility] [place] [address] 10/09/2024 11:30 AM EST Hospital Encounter OR [facility], Operating Room, [facility] - 4th Floor [address] [place] [address] Bigg Wetzel MD [address] [place] [address] 10/09/2024 11:30 AM EST - 10/09/2024 12:31 PM EST Surgery OR [facility], Operating Room, [facility] - 4th Floor [address] [place] [phone] Bigg Wetzel MD [address] [place] [address] COLONOSCOPY FLEXIBLE PROXIMAL DIAGNOSTIC Scheduled Procedures Name [...] this encounter Medical Devices Implanted Type Area Maternal Child Nurse Device Identifier Shelf Expiration Date Model / Serial / Lot Device Perm Cntrl [id number] - [id number] Implanted:Qty: 2 on 09/27/2015 by Sharda Ruiz, Corey Rucker MD at OR [facility] Uterus [employer] 05/03/2017 [id number] / / [id number] documented as of this encounter Advance Directives [...] Power of Attor benoit? No Care Teams Used Car Make Ready Mechanic Relationship Specialty Start Date End Date Melissa Cruz PA-C [address] [facility] [address] [place] [address] PCP - General Physician Brinell Tester 06/02/21 documented as of this encounter
--- OUTSIDE RECORDS SUMMARY | 2024-08-09 23:52 | External Medical Summary | Summary of Care ---
Author Name Unknown Organization [facility] Address [address] [place] [address] Phone [phone] Care Team Providers Care Farmworker Fur Name Role Phone CarylTy mansfieldanthony Downing PA-C Primary Care Provider +1- [phone] Reason for Visit * Reason Comments Follow Up Encounter Details Date Type Department Care Team (Late st Contact Info) Description 05/19/2024 11:20 AM EDT Office Visit Wound Care, [facility] [address] [place] [address] Yuriy Hilario MD [address] [place] [address] Multiple open wounds of lower leg, unspecified laterality, subsequent encounter* Allergies Active Allergy Reactions Criticality Noted Date [...] DAY 90 Tablet 1 03/17/2024 Active Nystatin 397247 UNIT/GM External Powder (Nystop) Apply topically to [...] deep wounds. 45 g 11 05/19/2024 Active Clotrimazole-Betame thasone 1-0.05 % External Cream Apply topically to affected area 2 times a day. Apply to lower legs once daily at time of dressing change. Avoid applying to deep wounds. 45 g 3 03/19/2023 05/19/20 24 Discontinu ed(Refill) documented as of this [...] Next Due Pneumococcal Conjugate Vacci ne, 20-valent ([id number]) 12/04/2022 Pneumococcal Polysaccharide PPV23 (Pneumovax) 05/06/2011 Seasonal [...] Progress Notes * Yuriy Hilario MD - 05/19/2024 3:06 PM EDT Images from the original note were not included. WOUND OUTPATIENT FOLLOW-UP NOTE DOS: 05/19/2024 CC: Follow-up HPI: Mica Jimenez returns for follow-up of bilateral lower leg wounds. She continues to struggle with keeping the wraps up / on. Current dressing: See Wound Assessment Dressing change [...] date: 06/06/2007 Quit date: 06/06/2012 Years since quittin.9 Smokeless Tobacco Never Objective There were no vitals filed for this visit. WOUND ASSESSMENT: Alteration in Skin Integrity Proximal;Right;Medial Leg (Active) Clinical Image 05/19/24 1120 Wound Length (cm) 7.5 cm 05/19/24 1120 Wound Width (cm) 4 cm 05/19/24 1120 Wound Depth (cm) 0.1 cm 05/19/24 1120 Ulcer Thickness Full 05/19/24 1120 Yellow Fibrinous Slough (%) 51-75% 05/19/24 1120 Granulation Tissue (%) 1-25% 05/19/24 112 Granulation Tissue Color dusky 05/19/24 1120 Drainage serous, moderate 05/19/24 1120 Jaye-Wound (Surrounding Skin) Erythematous 05/19/24 1120 Wound Surface Area (cm^2) 30 cm^2 05/19/240 Wound Volume (cm^3) 3 cm^3 05/19/240 Alteration in Skin Integrity Lower;Right;Proximal;Anterior Leg (Active) Clinical Image 05/19/24 1123 Wound Length (cm) 4.1 cm 05/19/24 1123 Wound Width (cm) 2.9 cm 05/19/24 1123 Wound Depth (cm) 0.2 cm 05/19/243 Drainage serous, moderate 05/19/243 Odor (after cleansing wound) No 05/19/24 1123 Jaye-Wound (Surrounding Skin) Erythematous;Edema 05/19/24 1123 Wound Surface Area (cm^2) 11.89 cm^2 05/19/24 1123 Wound Volume (cm^3) 2.378 cm^3 05/19/24 1123 Alteration in Skin Integrity Anterior;Distal;Left;Lower Leg (Active) Clinical Image 05/19/24 1131 Wound Length (cm) 12.7 cm 05/19/24 1131 Wound Width (cm) 9 cm 05/19/24 1131 Wound Depth (cm) 0.1 cm 05/19/24 1131 Wound Surface Area (cm^2) 114.3 cm^2 05/19/24 1131 Wound Volume (cm^3) 11.43 cm^3 05/19/24 1131 Alteration in Skin Integrity Left;Medial Knee (Active) Clinical Image 05/19/24 1130 Wound Length (cm) 6.1 cm 05/19/24 1130 Wound Width (cm) 2.7 cm 05/19/240 Wound Depth (cm) 0.3 cm 05/19/240 Ulcer Thickness Full 05/19/24 1130 Yellow Fibrinous Slough (%) 100% 05/19/241129 Drainage serous, moderate 05/19/240 Odor (after cleansing wound) Yes 05/19/240 Wound Surface Area (cm^2) 16.47 cm^2 05/19/241129 Wound Volume (cm^3) 4.941 cm^3 05/19/241129 Alteration in Skin Integrity Proximal;Left;Medial Leg (Active) Clinical Image 05/19/248 Wound Length (cm) 14 cm 05/19/248 Wound Width (cm) 9 cm 05/19/248 Wound Depth (cm) 0.2 cm 05/19/241127 Ulcer Thickness Full 05/19/248 Yellow Fibrinous Slough (%) 51-75% 05/19/248 Granulation Tissue (%) 1-25% 05/19/241127 Drainage serous, moderate 05/19/248 Odor (after cleansing wound) Yes 05/19/248 Wound Surface Area (cm^2) 126 cm^2 05/19/248 Wound Volume (cm^3) 25.2 cm^3 05/19/248 Alteration in Skin Integrity Anterior;Left Thigh (Active) Alteration in Skin Integrity Left;Medial Knee (Active) Alteration in Skin Integrity Lower;Right;Medial Leg (Active) Clinical Image 05/19/244 Wound Length (cm) 5.5 cm 05/19/241123 Wound Width (cm) 3.6 cm 05/19/244 Wound Depth (cm) 0.1 cm 05/19/241123 Ulcer Thickness Full 05/19/244 Yellow Fibrinous Slough (%) 100% 05/19/241123 Drainage serous, moderate 05/19/241123 Jaye-Wound (Surrounding Skin) Erythematous;Edema 05/19/241123 Wound Surface Area (cm^2) 19.8 cm^2 05/19/24 1124 Wound Volume (cm^3) 1.98 cm^3 05/19/24 112 Alteration in Skin Integrity Anterior;Proximal;Right Leg (Active) Clinical Image 05/19/24 111 Wound Length (cm) 10 cm 05/19/24 1112 Wound Width (cm) 9.5 cm 05/19/24 1112 Wound Depth (cm) 1 cm 05/19/24 111 Ulcer Thickness Full 05/19/24 1112 Yellow Fibrinous Slough (%) 51-75% 05/19/24 1112 Necrotic Tissue (%) 26-50% 05/19/24 111 Necrotic Tissue Color Black 05/19/24 111 Drainage serosanguinous, moderate (Green tinged) 05/19/24 111 Odor (after cleansing wound) Yes 05/19/24 111 Jaye-Wound (Surrounding Skin) Erythematous;Edema 05/19/24 1112 Wound Surface Area (cm^2) 95 cm^2 05/19/24 1112 Wound Volume (cm^3) 95 cm^3 05/19/24 1112 Alteration in Skin Integrity Anterior;Distal;Lower;Right Leg (Active) Clinical Image 05/19/24 1127 Wound Length (cm) 11 cm 05/19/241126 Wound Width (cm) 9.5 cm 05/19/247 Wound Depth (cm) 0.1 cm 05/19/241126 Wound Surface Area (cm^2) 104.5 cm^2 05/19/24 1127 Wound Volume (cm^3) 10.45 cm^3 05/19/241126 Alteration in Skin Integrity Right;Lateral;Proximal Thigh (Active) Clinical Image 05/19/24 1118 Wound Length (cm) 28 cm 05/19/24 1118 Wound Width (cm) 13.1 cm 05/19/24 1118 Wound Depth (cm) 0.2 cm 05/19/24 1118 Ulcer Thickness Full 05/19/24 1118 Yellow Fibrinous Slough (%) 1-25% 05/19/24 111 Granulation Tissue (%) 51-75% 05/19/24 111 Drainage serous, heavy 05/19/241117 Wound Surface Area (cm^2) 366.8 cm^2 05/19/24 1118 Wound Volume (cm^3) 73.36 cm^3 05/19/24 1118 Alteration in Skin Integrity Right;Posterior Popliteal (Active) Alteration in Skin Integrity Left Knee (Active) Clinical Image 05/19/24 1133 Wound Length (cm) 10.2 cm 05/19/24 1133 Wound Width (cm) 9.6 cm 05/19/24 1133 Wound Depth (cm) 0.1 cm 05/19/241132 Ulcer Thickness Full 05/19/243 Yellow Fibrinous Slough (%) 100% 05/19/24 1133 Drainage serous, moderate 05/19/243 Jaye-Wound (Surrounding Skin) Edema 05/19/24 1133 Wound Surface Area (cm^2) 97.92 cm^2 05/19/24 1133 Wound Volume (cm^3) 9.792 cm^3 05/19/24 1133 Assessment & Plan ASSESSMENT: ICD-10-CM 1. Multiple open wounds of lower leg, unspecified laterality, subsequent encounter S81.809D PLAN: Unna boots to bilateral lower legs. Wrap proximal lower leg first, then from ankle to thigh. Vaseline / triamcinolone to folds in thigh and proximal lower leg, buttressed with gauze to keep skin edges. Nurse visit this Sunday. Follow Up: Return in about 3 weeks (around 06/09/2024). I spent a total of 20-29 minutes (exact time 20 mins) on the date of service in preparation, delivery, and documentation of the care provided to Mica Jmienez excluding any time spent in the performance of separately billed services or time spent by another provider/QHP. Lillian Hilario MD documented in this encounter Nursing Notes * Venus Strong, RN - 05/19/2024 4:41 PM EDT Applied dressings and compression as ordered by Dr. Hilario, Unna boots to bilateral lower legs, wrapped proximal lower legs first, then from ankle to thigh. Vaseline / triamcinolone to folds in thigh and proximal lower leg, buttressed with gauze to keep skin edges . Vaseline to woundbeds, covered gauze and ABD's. Reviewed compression education with patient, instructed to call wound clinic if wrap slides down. Encouraged patient to use the vinegar solution as instructed by Dr. Hilario, to apply to skin fold no under wraps, may apply several times a day. * Venus Strong RN - 05/19/2024 11:38 AM EDT Dressings removed and legs washed with soap and water, towel dried. Right anterior medial wound hasblack tissue and an odor today. Many wounds still present. Co itching and pain at right lateral upper leg. documented in this encounter Plan of Treatment Upcoming Encounters Date Type Department Care Team (Latest Contact Info) Description 05/22/2024 2:00 PM EDT Nurse Only Wound Care, [address] [address] [facility], Nurse Wound Care [address] [place] [address] 05/26/2024 9:40 AM EDT Office Visit Wound Care, [address] [address] Yuriy Hilario MD [address] [facility] [address] 06/06/2024 2:00 PM EDT Appointment Cardiac Studies, [address] [address] 06/16/2024 1:25 PM EST NeuroDiagnostic Study Neurophysiology, [address] [address] Ramiro Grove, DO 200 [facility], [place] [address] 09/15/2024 10:00 AM EST Office Visit Cardiology, [address] [place] [address] Anna Adames MD [address] [place] [address] 10/09/2024 11:30 AM EST Hospital Encounter OR [facility], Operating Room, [facility] - 4th Floor [address] [place] [address] Bigg Wetzel MD [address] [place] [address] 10/09/2024 11:30 AM EST - 10/09/2024 12:31 PM EST Surgery OR [facility], Operating Room, [facility] - 4th Floor [address] [place] [address] Bigg Wetzel MD [address] [place] [address] COLONOSCOPY FLEXIBLE PROXIMAL DIAGNOSTIC Scheduled Procedures Name [...] this encounter Medical Devices Implanted Type Area Jinriksha Driver Device Identifier Shelf Expiration Date Model / Serial / Lot Device Perm Cntrl [id number] - [id number] Implanted:Qty: 2 on 09/27/2015 by Sharda Ruiz, Corey Rucker MD at OR [facility] Uterus [employer] 05/03/2017 [id number] / / [id number] documented as of this encounter Visit Diagnoses Diagnosis Multiple open wounds of lower leg, unspecified laterality, subsequent encounter- Primary Screening for colon cancer Special screening for [...] Power of Attor benoit? No Care Teams Farmworker Fur Relationship Specialty Start Date End Date Melissa Cruz PA-C [address] [facility] [facility] [place] [address] PCP - General Physician Commodity Supervisor 06/02/21 documented as of this encounter
--- OUTSIDE RECORDS SUMMARY | 2024-08-09 23:53 | External Medical Summary | Summary of Care ---
Author Name Unknown Organization [facility] Address [address] [place] [address] Phone [phone] Care Team Providers Care Director Of Student Aid Name Role Phone CarylTy mansfieldanthony Adam PA-C Primary Care Provider +1- [phone] Reason for Visit * Reason Comments Wound Care BLE - WOUNDS --EDEMA Encounter Details Date Type Department Care Team ([facility] st Contact Info) Description 05/15/2024 10:30 AM EDT Nurse Only Wound Care, [facility] [address] [place] [address] [facility], Nurse Wound Care [address] [place] [address] Wound Care (BLE - WOUNDS --EDEMA ) Allergies Active Allergy Reactions Criticality Noted Date Comments Aspirin 01/27/2014 Increased bleeding documented as of this encounter (statuses as of 05/15/2024) Medications Medication Sig Dispensed Refills Start Date [...] IN THE MORNING 16 mL 09/30/2022 Active Clotrimazole-Betameth asone 1-0.05 % External Cream Apply topically to affected area 2 times a day. Apply to lower legs once daily at time of dressing change. Avoid applying to deep wounds. 45 g 3 03/19/2023 Active One-A-Day Womens 50 Plus Oral Tablet [...] DAY 90 Tablet 1 03/17/2024 Active Nystatin 636794 UNIT/GM External Powder (Nystop) Apply topically to [...] Vitamin D3 50 MCG (2000 UT) Oral CapsuleIndications:Vi tamin D deficiency TAKE 1 CAPSULE BY MOUTH EVERY DAY IN THE MORNING 90 Capsule 04/23/2024 Active Pregabalin 150 MG Oral Capsule (Lyrica)Indications:N europathy TAKE 1 CAPSULE BY MOUTH IN THE MORNING AT NOON IN THE EVENING AND BEFORE BEDTIME 120 Capsule 1 05/03/2024 Active documented as of this encounter (statuses as of 05/15/2024) Active Problems Problem Noted Date Diagnosed Date [...] as of this encounter (statuses as of 05/15/2024) Resolved Problems Problem Noted Date Diagnosed Date [...] as of this encounter (statuses as of 05/15/2024) Immunizations Name Administration Dates Next Due Pneumococcal Conjugate Vacci ne, 20-valent ([id number]) 12/04/2022 Pneumococcal Polysaccharide PPV23 (Pneumovax) 05/06/2011 Seasonal [...] Pressure - - Pulse - - Temperature 36 C (96.8 F) 05/15/2024 12: 53 PM EDT Respiratory Rate - - Oxygen Saturation - - Inhaled Oxygen Concentration - - Weight 167.2 kg (368 lb 11.2 oz) 2023 12:53 PM EDT Height - - Body Mass Index 72.61 04/23/2024 11:13 AM EDT documented in this encounter Patient Instructions * Patient Instructions* Megha López, ELIZA - 05/15/2024 12:45 PM EDT Discharge Instructions: Unna Boot You [...] Nursing Notes * Megha López LPN - 05/15/2024 12:06 PM EDT Images from the original note were not included. Assisted Mica to safely transfer to sit safely on Exam seating -- she is aware to not rise unassisted for her safety. While getting comfortable Mica states, " When home nursing saw her on Sunday they didn't have all the supplies that was needed so did what they could. One directional layer of UnnaZ to BLE- NO Coban just Tubi drafting layout man to cover this was down and compressed into knee fold tissue. While assisting her it is noted that she has drainage with foul order as well. When lifting pant leg noted Tubigrip and Unna Z layer were in medial fold to Right leg saturated with drainage. Wounds in this site with significant decline in presentation. Largest wound with deep colored tissue across wound bed. More medial wounds just more irritated. Drainage from lower extremity wounds as well. MOST PROXIMAL FOLD ABOVE KNEE is very excoriated with with moderate serosanguinous drainage from all open sites. Lateral wound that has been very sore to this point is covered in a layer of slough. No dressings to keep tissue from pressing against itself. Medial knee wounds were covered with thin layerof unna with out significant change. Left leg without significant changes this week. [place] Text was sent to on her behalf -- Will reapply current tx and she was encouraged to keep her appointments with Wound clinic . She stated she will do so as no longer will have [facility] health until done with Twice weekly visits here. Dressings reapplied and has Surgilast to cover as no Sz K or J Tubi drafting layout man available from supplier atthis time. Safety precautions were reviewed for wraps as well review of her s/s of infection or anychanges to legs seek help even if ED is required. She did agree-- Temp this date 36.0C and Wt 368.7#. Compression Therapy Education: Any questions, redness or swelling around the wound and development of a temperature of 101F or greater, please contact the [facility]. Please check your toes frequently. If they become blue, purple, pale, cool, numb, and/or tingling elevate your leg higher than your heart for one hour. If you have no relief of the symptoms, cut the entire wrap off and call the [facility], . Keep the wrap dry. If the wrap slides down or bunches at the ankle, call [facility]. Elevate legs above heart for 30 minutes 2-3 times a day. Aware to call with any questions or concerns Discharge Instructions: Unna Boot You will be [...] Department Care Team (Latest Contact Info) Description 05/19/2024 11:20 AM EDT Office Visit Wound Care, [facility] [address] [place] [address] Yuriy Hilario MD [address] [place] [address] [place] [address] 05/28/2024 9:00 AM EDT Office Visit Cardiology, [address] [place] [address] Anna Adames MD 400 [facility] [place] [address] 06/06/2024 2:00 PM EDT Appointment Cardiac Studies, [address] [place] [address] 06/16/2024 1:25 PM EST NeuroDiagnostic Study Neurophysiology, [address] [place] [address] Ramiro Grove, DO [address] [facility] [address] 10/09/2024 11:30 AM EST Hospital Encounter OR [facility], Operating Room, [facility] Floor [address] [place] [address] [place] [address] Bigg Wetzel MD [address] [place] [address] 10/09/2024 11:30 AM EST - 10/09/2024 12:31 PM EST Surgery OR [facility], Operating Room, [facility] Floor [address] [place] [address] [place] [address] Bigg Wetzel MD [address] [place] [address] COLONOSCOPY FLEXIBLE PROXIMAL DIAGNOSTIC Scheduled Procedures Name Priority Associated Diagnoses Date/Ti wy COLONOSCOPY FLEXIBLE PROXIMAL DIAGNOSTIC Screening for colon [...] this encounter Medical Devices Implanted Type Area Retail Sales Advisor Device Identifier Shelf Expiration Date Model / Serial / Lot Device Perm Cntrl [id number] - [id number] Implanted:Qty: 2 on 09/27/2015 by Sharda Ruiz, Corey Rucker MD at OR [facility] Uterus [employer] 05/03/2017 [id number] / / [id number] documented as of this encounter Visit Diagnoses [...] Power of Attor benoit? No Care Teams Director Of Student Aid Relationship Specialty Start Date End Date Melissa Cruz PA-C [address] [facility] [address] [place] [address] PCP - General Physician Supervisor Unloading 06/02/21 documented as of this encounter
--- OUTSIDE RECORDS SUMMARY | 2024-08-09 23:53 | External Medical Summary | Summary of Care ---
Author Name Unknown Organization [facility] Address [address] [place] [address] Phone [phone] Care Team Providers Care Stove Mechanic Name Role Phone Anthony Melissa Adam PA-C Primary Care Provider +1- [phone] Reason for Visit * Reason Onset Date Comments Appointment 05/12/2024 Encounter Details Date Type Department Care Team (Late st Contact Info) Description 05/12/2024 Telephone Wound Care, [address] [address] Services, Scheduling [address] [place] [address] Appointment Allergies Active Allergy Reactions Criticality Noted Date Comments Aspirin 01/27/2014 Increased bleeding documented as of this encounter (statuses as of 05/12/2024) Medications Medication Sig Dispensed Refills Start Date [...] DAY 90 Tablet 1 03/17/2024 Active Nystatin 248114 UNIT/GM External Powder (Nystop) Apply topically to [...] as of this encounter (statuses as of 05/12/2024) Active Problems Problem Noted Date Diagnosed Date [...] as of this encounter (statuses as of 05/12/2024) Resolved Problems Problem Noted Date Diagnosed Date [...] as of this encounter (statuses as of 05/12/2024) Immunizations Name Administration Dates Next Due Pneumococcal Conjugate Vacci ne, 20-valent ([id number]) 12/04/2022 Pneumococcal Polysaccharide PPV23 (Pneumovax) 05/06/2011 Seasonal [...] Telephone Encounter - Kalyn Rivera OSA - 05/12/2024 8:55 AM EDT Nurse appointment is scheduled 05/15/24 at 10:30 am. Patient states she does not have HH and her wrap is off. She cannot come in tomorrow for a nurse visit due to transportation. * Telephone Encounter - Magdalena Ko OSA - 05/12/2024 8:44 AM EDT Pt is calling and would like to schedule a nurse visit for if possible. Please reach out to patient. [phone] JORGE A Yuen documented in this encounter Plan of Treatment Upcoming Encounters Date Type Department Care Team (Latest Contact Info) Description 05/15/2024 10:30 AM EDT Nurse Only Wound Care, [address] [place] [address] [facility], Nurse Wound Care [address] [place] [address] [place] [address] 05/26/2024 11:20 AM EDT Office Visit Wound Care, [address] [place] [address] Yuriy Hilario MD [address] [facility] [place] [address] 05/28/2024 9:00 AM EDT Office Visit [facility], [place] [facility] [address] Anna Adames MD 400 [place] [address] 06/06/2024 2:00 PM EDT Appointment Cardiac Studies, [address] [facility] [place] [address] 06/16/2024 1:25 PM EST NeuroDiagnostic Study Neurophysiology, [address] [place] [address] Ramiro Grove, DO 200 [facility] [address] 10/09/2024 11:30 AM EST Hospital Encounter OR [facility], Operating Room, [facility] - 4th Floor 400 [facility] [place] [id number] Bigg Wetzel MD [address] [place] [address] 10/09/2024 11:30 AM EST - 10/09/2024 12:31 PM EST Surgery OR [facility], Operating Room, [facility] - 4th Floor 400 [facility] [place] [address] Bigg Wetzel MD [address] [place] [address] COLONOSCOPY FLEXIBLE PROXIMAL DIAGNOSTIC Scheduled Procedures Name [...] this encounter Medical Devices Implanted Type Area Eligibility Consultant Device Identifier Shelf Expiration Date Model / Serial / Lot Device Perm Cntrl [id number] - [id number] Implanted:Qty: 2 on 09/27/2015 by Sharda Ruiz, Corey Rucker MD at OR [facility] Uter[employer] 05/03/2017 [id number] / / [id number] documented as of this encounter Advance Directives [...] of Attor benoit? No Care Teams Stove Mechanic Relationship Specialty Start Date End Date Melissa Cruz PA-C [address] [address] [place] [address] PCP - General Physician Plate Inspector 06/02/21 documented as of this encounter
--- OUTSIDE RECORDS SUMMARY | 2024-08-09 23:53 | External Medical Summary | Summary of Care ---
Author Name Unknown Organization [facility] Address [address] [place] [address] Phone [phone] Care Team Providers Care Front End Manager Name Role Phone Anthony Melissa Downing PA-C Primary Care Provider +1- [phone] Reason for Visit * Reason Onset Date Comments Appointment 05/12/2024 Encounter Details Date Type Department Care Team (Late st Contact Info) Description 05/12/2024 Telephone Wound Care, [address] [address] Services, Scheduling [address] [place] [address] Appointment Allergies Active Allergy Reactions Criticality Noted [...] DAY 90 Tablet 1 03/17/2024 Active Nystatin 424919 UNIT/GM External Powder (Nystop) Apply topically to [...] Next Due Pneumococcal Conjugate Vacci ne, 20-valent ([id number]) 12/04/2022 Pneumococcal Polysaccharide PPV23 (Pneumovax) 05/06/2011 Seasonal [...] Encounter - Kalyn Rivera OSA - 05/12/2024 10:11 AM EDT Wound appointment 05/26/24 is rescheduled to 05/19/24 at 11:[address] Hilario. Patient is aware. * Telephone Encounter - Megha López LPN - 05/12/2024 9:47 AM EDT has requested that Mica be scheduled to see him on Sunday the -- please add herto this schedule. Thanks * Telephone Encounter - Kalyn Rivera OSA [...] if possible. Please reach out to patient. [phone] JORGE A Yuen documented in this encounter Plan of Treatment Upcoming Encounters Date Type Department Care Team (Latest Contact Info) Description 05/15/2024 10:30 AM EDT Nurse Only Wound Care, [address] [address] [facility], Nurse Wound Care [address] [place] [address] 05/19/2024 11:20 AM EDT Office Visit Wound Care, [address] [address] Yuriy Hilario MD [address] [place] [address] 05/28/2024 9:00 AM EDT Office Visit Cardiology, [address] [place] [address] Anna Adames MD 400 [place] [address] 06/06/2024 2:00 PM EDT Appointment Cardiac Studies, [address] [place] [address] 06/16/2024 1:25 PM EST NeuroDiagnostic Study Neurophysiology, [address] [place] [address] Ramiro Grove, DO 200 [place] [address] 10/09/2024 11:30 AM EST Hospital Encounter OR [facility], Operating Room, [facility] - 4th Floor [address] [place] [address] [place] [address] Bigg Wetzel MD [address] [place] [address] 10/09/2024 11:30 AM EST - 10/09/2024 12:31 PM EST Surgery OR [facility], Operating Room, [facility] - 4th Floor [address] [place] [address] Bigg Wetzel MD [address] [place] [address] COLONOSCOPY FLEXIBLE PROXIMAL DIAGNOSTIC Scheduled Procedures Name [...] this encounter Medical Devices Implanted Type Area Utilization Review Rn Device Identifier Shelf Expiration Date Model / Serial / Lot Device Perm Cntrl [id number] - [id number] Implanted:Qty: 2 on 09/27/2015 by Sharda Ruiz, Corey Rucker MD at OR [facility] Uter[employer] 05/03/2017 [id number] / / [id number] documented as of this encounter Advance Directives [...] Power of Attor benoit? No Care Teams Front End Manager Relationship Specialty Start Date End Date Melissa Cruz PA-C [address] [facility] [address] [facility] [place] [address] PCP - General Physician Soybean Specialties Cook 06/02/21 documented as of this encounter
--- OUTSIDE RECORDS SUMMARY | 2024-08-09 23:53 | External Medical Summary | Summary of Care ---
Author Name Unknown Organization [facility] Address [address] [place] [address] Phone [phone] Care Team Providers Care Structural Ironworker Name Role Phone CarylTy mansfieldanthony Adam PA-C Primary Care Provider +1- [phone] Reason for Visit * Reason Comments Wound Care BLE - WOUNDS --EDEMA Encounter Details Date Type Department Care Team ([facility] st Contact Info) Description 05/15/2024 10:30 AM EDT Nurse Only Wound Care, [facility] [address] [place] [address] [facility], Nurse Wound Care [address] [place] [address] Wound Care (BLE - WOUNDS --EDEMA ) Allergies Active Allergy Reactions Criticality Noted Date Comments Aspirin 01/27/2014 Increased bleeding documented as of this encounter (statuses as of 05/16/2024) Medications Medication Sig Dispensed Refills Start Date [...] DAY 90 Tablet 1 03/17/2024 Active Nystatin 305317 UNIT/GM External Powder (Nystop) Apply topically to [...] as of this encounter (statuses as of 05/16/2024) Active Problems Problem Noted Date Diagnosed Date [...] as of this encounter (statuses as of 05/16/2024) Resolved Problems Problem Noted Date Diagnosed Date [...] as of this encounter (statuses as of 05/16/2024) Immunizations Name Administration Dates Next Due Pneumococcal Conjugate Vacci ne, 20-valent ([id number]) 12/04/2022 Pneumococcal Polysaccharide PPV23 (Pneumovax) 05/06/2011 Seasonal [...] UnnaZ to BLE- NO Coban just Tubi ratchet setter to cover this was down and compressed [...] Left leg without significant changes this week. [place] Text was sent to on her behalf -- Will reapply current tx and she was encouraged to keep her appointments with Wound clinic . She stated she will do so as no longer will have [facility] home health until done with Twice weekly visits here. Dressings reapplied and has Surgilast to cover as no Sz K or J Tubi ratchet setter available from supplier atthis time. Safety precautions [...] or greater, please contact the [facility]. Please check your toes frequently. If they become blue, purple, pale, cool, numb, and/or tingling elevate your leg higher than your heart for one hour. If you have no relief of the symptoms, cut the entire wrap off and call the [facility], . Keep the wrap dry. If the wrap slides down or bunches at the ankle, call [facility]. Elevate legs above heart for 30 minutes [...] 11:20 AM EDT Office Visit Wound Care, [facility] [address] [place] [address] Yuriy Hilario MD [address] [place] [address] [place] [address] 05/28/2024 9:00 AM EDT Office Visit Cardiology, [address] [place] [address] Anna Adames MD 400 [facility] [address] 06/06/2024 2:00 PM EDT Appointment Cardiac Studies, [address] [place] [address] 06/16/2024 1:25 PM EST NeuroDiagnostic Study Neurophysiology, [address] [place] [address] Ramiro Grove, DO [address] [facility] [address] 10/09/2024 11:30 AM EST Hospital Encounter OR [facility], Operating Room, [facility] Floor [address] [place] [address] [place] [address] Bigg Wetzel MD [address] [place] [address] 10/09/2024 11:30 AM EST - 10/09/2024 12:31 PM EST Surgery OR [facility], Operating Room, [facility] Floor [address] [place] [address] [place] [address] Bigg Wetzel MD [address] [place] [address] COLONOSCOPY FLEXIBLE PROXIMAL DIAGNOSTIC Scheduled Procedures Name Priority Associated Diagnoses Date/Ti pr COLONOSCOPY FLEXIBLE PROXIMAL DIAGNOSTIC Screening for colon [...] this encounter Medical Devices Implanted Type Area Steward/Stewardess Bath Device Identifier Shelf Expiration Date Model / Serial / Lot Device Perm Cntrl [id number] - [id number] Implanted:Qty: 2 on 09/27/2015 by Sharda Ruiz, Corey Rucker MD at OR [facility] Uter[employer] 05/03/2017 [id number] / / [id number] documented as of this encounter Visit Diagnoses [...] Power of Attor benoit? No Care Teams Structural Ironworker Relationship Specialty Start Date End Date Melissa Cruz PA-C [address] [facility] [address] [place] [address] PCP - General Physician Manager Resort 06/02/21 documented as of this encounter
--- OUTSIDE RECORDS SUMMARY | 2024-08-09 23:53 | External Medical Summary | Summary of Care ---
Author Name Unknown Organization [facility] Address [address] [place] [address] Phone [phone] Care Team Providers Care Litigation Attorney Associate Name Role Phone Anthony Melissa Downing PA-C Primary Care Provider +1- [phone] Reason for Visit * Reason Onset Date Comments Appointment 05/12/2024 Encounter Details Date Type Department Care Team (Late st Contact Info) Description 05/12/2024 Telephone Wound Care, [address] [address] Services, Scheduling [address] [place] [address] Appointment Allergies Active Allergy Reactions Criticality Noted [...] DAY 90 Tablet 1 03/17/2024 Active Nystatin 400373 UNIT/GM External Powder (Nystop) Apply topically to [...] Next Due Pneumococcal Conjugate Vacci ne, 20-valent ([id number]) 12/04/2022 Pneumococcal Polysaccharide PPV23 (Pneumovax) 05/06/2011 Seasonal [...] if possible. Please reach out to patient. [phone] JORGE A Yuen documented in this encounter Plan of Treatment Upcoming Encounters Date Type Department Care Team (Latest Contact Info) Description 05/15/2024 10:30 AM EDT Nurse Only Wound Care, [address] [address] [facility], Nurse Wound Care [address] [place] [address] 05/26/2024 11:20 AM EDT Office Visit Wound Care, [address] [address] Yuriy Hilario MD [address] [place] [address] 05/28/2024 9:00 AM EDT Office Visit Cardiology, [address] [place] [address] Anna Adames MD [address] [place] [address] 06/06/2024 2:00 PM EDT Appointment Cardiac Studies, [address] [place] [address] 06/16/2024 1:25 PM EST NeuroDiagnostic Study Neurophysiology, [address] [address] Ramiro Grove, DO [address] [facility] [address] 10/09/2024 11:30 AM EST Hospital Encounter OR [facility], Operating Room, [facility] - 4th Floor [address] [place], [place] [address] [address] Bigg Wetzel MD 132 [place] [address] 10/09/2024 11:30 AM EST - 10/09/2024 12:31 PM EST Surgery OR [facility], Operating Room, [facility] - 4th Floor [address] [place], [place] [address] [phone] Bigg Wetzel MD [address] [place] [address] COLONOSCOPY FLEXIBLE PROXIMAL DIAGNOSTIC Scheduled Procedures Name [...] this encounter Medical Devices Implanted Type Area Recreation Therapy Aide Device Identifier Shelf Expiration Date Model / Serial / Lot Device Perm Cntrl [id number] - [id number] Implanted:Qty: 2 on 09/27/2015 by Sharda Ruiz, Corey Rucker MD at OR [facility] Uter[employer] 05/03/2017 [id number] / / [id number] documented as of this encounter Advance Directives [...] Power of Attor benoit? No Care Teams Litigation Attorney Associate Relationship Specialty Start Date End Date Melissa Cruz PA-C [address] [facility] [address] [place] [address] PCP - General Physician Plush Weaver 06/02/21 documented as of this encounter
--- OUTSIDE RECORDS SUMMARY | 2024-08-09 23:53 | External Medical Summary | Summary of Care ---
Author Name Unknown Organization [facility] Address [address] [place] [address] Phone [phone] Care Team Providers Care Medical Affairs Director Name Role Phone Melissa Cruz PA-C Primary Care Provider +1- [phone] Reason for Visit * Reason Onset Date Comments Home Health 02/15/2024 Encounter Details Date Type Department Care Team (Late st Contact Info) Description 02/15/2024 [address] [place] [address] [address] [place], [place] [id number] Melissa Cruz PA-C [facility] [address] [place] [id number] Home Health Allergies Active Allergy Reactions Criticality [...] wounds daily. 400 g 1 02/08/2024 Active documented as of this encounter (statuses [...] Next Due Pneumococcal Conjugate Vacci ne, 20-valent ([id number]) 12/04/2022 Pneumococcal Polysaccharide PPV23 (Pneumovax) 05/06/2011 Seasonal [...] Telephone Encounter - Yolanda Pinedo LPN - 02/15/2024 10:29 AM EDT HH Concerns ROSSANA Kay, Calling from: [facility] Report/Concerns of: Pt having difficulty with getting left leg in and out of car. Symptoms: BLE swelling due to Lymphedema. Vitals: T 98.6 P 65 RR 18 BP 130/68 SP O2 98% RA Lung sounds CTA Weight NA Blood sugar NA Pain 4/10 (pins and needles) to bilateral feet. Narrative: Is calling to request a PT and OT referral for the pt. PT to assist with Lymphedema. Pt is having a hard time getting left leg in and out of care. OT to also assist with Lymphedema. Their OT is Lymphedema certified and the DAISY wraps roll down on the pt's legs. Will send orders via fax for signature. CARYNI. Call back ROSSANA Kay with any advice or orders at [phone]. Please fax new orders to [facility] Home Health [phone] documented in this encounter Plan of Treatment Upcoming Encounters Date Type Department Care Team (Latest Contact Info) Description 05/19/2024 11:20 AM EDT Office Visit Wound Care, [address] [address] Yuriy Hilario MD [address] [place] [address] 05/28/2024 9:00 AM EDT Office Visit Cardiology, [address] [place] [address] Anna Adames MD 400 [place] [address] 06/06/2024 2:00 PM EDT Appointment Cardiac Studies, [address] [place] [address] 06/16/2024 1:25 PM EST NeuroDiagnostic Study Neurophysiology, [address] [place] [address] Ramiro Grove, DO 200 [place] [address] 10/09/2024 11:30 AM EST Hospital Encounter OR [facility], Operating Room, [facility] - 4th Floor [address] [place] [address] [place] [phone] Bigg Wetzel MD [address] [place] [address] 10/09/2024 11:30 AM EST - 10/09/2024 12:31 PM EST Surgery OR [facility], Operating Room, [facility] - 4th Floor [address] [place] [address] [place] [address] Bigg Wetzel MD [address] [place] [address] COLONOSCOPY FLEXIBLE PROXIMAL DIAGNOSTIC Scheduled Procedures Name [...] this encounter Medical Devices Implanted Type Area Document Imaging Specialist Device Identifier Shelf Expiration Date Model / Serial / Lot Device Perm Cntrl [id number] - [id number] Implanted:Qty: 2 on 09/27/2015 by Sharda Ruiz, Corey Rucker MD at OR [facility] Uter[employer] 05/03/2017 [id number] / / [id number] documented as of this encounter Advance Directives [...] Power of Attor benoit? No Care Teams Medical Affairs Director Relationship Specialty Start Date End Date Melissa Cruz, AYLAC [facility] [address] [facility] [place] [address] PCP - General Physician Reflow Operator 06/02/21 documented as of this encounter
--- OUTSIDE RECORDS SUMMARY | 2024-08-09 23:53 | External Medical Summary | Summary of Care ---
Author Name Unknown Organization [facility] Address [address] [place] [address] Phone [phone] Care Team Providers Care Anodic Operator Name Role Phone Melissa Cruz Chang FONSECA Primary Care Provider +1- [phone] Reason for Visit * Reason Comments Follow Up B/LLE Encounter Details Date Type Department Care Team ([facility] st Contact Info) Description 05/06/2024 11:00 AM EDT Office Visit Wound Care, [facility] [address] [place], [place] [id number] Yuriy Hilario MD [address] [place], [place] [id number] Multiple open wounds of lower leg, unspecified laterality, subsequent encounter*; Lymphedema; Irritant contact dermatitis due to other body fluid Allergies Active Allergy Reactions Criticality Noted Date [...] DAY 90 Tablet 1 03/17/2024 Active Nystatin 268549 UNIT/GM External Powder (Nystop) Apply topically to [...] Next Due Pneumococcal Conjugate Vacci ne, 20-valent ([id number]) 12/04/2022 Pneumococcal Polysaccharide PPV23 (Pneumovax) 05/06/2011 Seasonal [...] Pressure - - Pulse - - Temperature 36.2 C (97.2 F) 05/06/2024 11:03 AM E DT Respiratory Rate - - Oxygen Saturation - - Inhaled Oxygen Concentration - - Weight - - Height - - Body Mass Index - - documented in this encounter Patient Instructions * Patient Instructions* Veda Jacobson CMA - 05/06/2024 1:10 PM EDT Compression Therapy Education: Any questions, redness or swelling around the wound and development of a temperature of 101F or greater, please contact the [facility]. Please check your toes frequently. If they become blue, purple, pale, cool, numb, and/or tingling elevate your leg higher than your heart for one hour. If you have no relief of the symptoms, cut the entire wrap off and call the [facility], . Keep the wrap dry. If the wrap slides down or bunches at the ankle, call [facility]. Elevate legs above heart for 30 minutes 2-3 times a day. documented in this encounter Progress Notes * Yuriy Hilario MD - 05/15/2024 10:26 AM EDT Images from the original note were not included. WOUND OUTPATIENT FOLLOW-UP NOTE DOS: 05/06/2024 CC: Follow-up HPI: Mica Jimenez returns for follow-up of bilateral lower leg wounds. The vinegar water solution is now being used and is working nicely. She continues to struggle with keeping the [...] Years since quittin.9 Smokeless Tobacco Never Objective Filed Vitals: 05/06/24 1103 Temp: 36.2 C (97.2 F) TempSrc: Temporal Artery WOUND ASSESSMENT: Alteration in Skin Integrity Proximal;Right;Medial Leg (Active) Clinical Image 05/06/24 1134 Wound Length (cm) 18.7 cm 05/06/24 1134 Wound Width (cm) 7 cm 05/06/24 1134 Wound Depth (cm) 0.3 cm 05/06/24 1134 Yellow Fibrinous Slough (%) 1-25% 05/06/24 1134 Granulation Tissue (%) 51-75% 05/06/24 1134 Granulation Tissue Color red 05/06/24 1134 Drainage serosanguinous, moderate 05/06/24 1134 Odor (after cleansing wound) No 05/06/24 1134 Jaye-Wound (Surrounding Skin) Edema;Erythematous 05/06/24 1134 Wound Surface Area (cm^2) 130.9 cm^2 05/06/24 1134 Wound Volume (cm^3) 39.27 cm^3 05/06/24 1134 Alteration in Skin Integrity Lower;Right;Proximal;Anterior Leg (Active) Clinical Image 05/06/24 1136 Wound Length (cm) 4.1 cm 05/06/24 1136 Wound Width (cm) 2.9 cm 05/06/24 1136 Wound Depth (cm) 1.3 cm 05/06/24 1136 Yellow Fibrinous Slough (%) 76-99% 05/06/24 1136 Granulation Tissue (%) 26-50% 05/06/24 1136 Granulation Tissue Color red 05/06/24 1136 Necrotic Tissue (%) none 05/06/24 1136 Drainage serosanguinous, moderate 05/06/24 1136 Odor (after cleansing wound) No 05/06/24 1136 Jaye-Wound (Surrounding Skin) Edema;Erythematous 05/06/24 1136 Wound Surface Area (cm^2) 11.89 cm^2 05/06/24 1136 Wound Volume (cm^3) 15.457 cm^3 05/06/24 1136 Alteration in Skin Integrity Anterior;Distal;Left;Lower Leg (Active) Clinical Image 05/06/24 1120 Wound Length (cm) 11 cm 05/06/24 1120 Wound Width (cm) 9.4 cm 05/06/24 1120 Wound Depth (cm) 0.1 cm 05/06/24 1120 Yellow Fibrinous Slough (%) none 05/06/24 1120 Granulation Tissue (%) 100% 05/06/24 1120 Granulation Tissue Color red 05/06/24 1120 Necrotic Tissue (%) none 05/06/24 1120 Drainage serosanguinous, mild 05/06/24 1120 Odor (after cleansing wound) No 05/06/24 1120 Jaye-Wound (Surrounding Skin) Edema 05/06/24 1120 Wound Surface Area (cm^2) 103.4 cm^2 05/06/24 1120 Wound Volume (cm^3) 10.34 cm^3 05/06/24 1120 Alteration in Skin Integrity Left;Medial Knee (Active) Alteration in Skin Integrity Proximal;Left;Medial Leg (Active) Clinical Image 05/06/24 1117 Wound Length (cm) 5.6 cm 05/06/24 1117 Wound Width (cm) 4 cm 05/06/24 1117 Wound Depth (cm) 0.7 cm 05/06/24 1117 Yellow Fibrinous Slough (%) 1-25% 05/06/24 1117 Granulation Tissue (%) 76-99% 05/06/24 111 Granulation Tissue Color pale/pink 05/06/24 1117 Drainage serosanguinous, moderate 05/06/24 1117 Odor (after cleansing wound) No 05/06/24 111 Jaye-Wound (Surrounding Skin) Edema;Erythematous 05/06/241116 Wound Surface Area (cm^2) 22.4 cm^2 05/06/24 111 Wound Volume (cm^3) 15.68 cm^3 05/06/24 111 Alteration in Skin Integrity Anterior;Left Thigh (Active) Clinical Image 05/06/24 111 Wound Length (cm) 6.5 cm 05/06/24 111 Wound Width (cm) 5.7 cm 05/06/24 111 Wound Depth (cm) 0.2 cm 05/06/24 111 Yellow Fibrinous Slough (%) none 05/06/241115 Granulation Tissue (%) 100% 05/06/241115 Granulation Tissue Color red 05/06/241115 Necrotic Tissue (%) none 05/06/24 111 Drainage serosanguinous, mild 05/06/24 111 Odor (after cleansing wound) No 05/06/24 111 Jaye-Wound (Surrounding Skin) Edema 05/06/241115 Wound Surface Area (cm^2) 37.05 cm^2 05/06/24 111 Wound Volume (cm^3) 7.41 cm^3 05/06/24 111 Alteration in Skin Integrity Left;Proximal;Lateral Leg (Active) Clinical Image 05/06/24 111 Wound Length (cm) 11.6 cm 05/06/24 111 Wound Width (cm) 0.7 cm 05/06/241113 Wound Depth (cm) 0.1 cm 05/06/241113 Yellow Fibrinous Slough (%) none 05/06/24 111 Granulation Tissue (%) 100% 05/06/24 111 Granulation Tissue Color red 05/06/241113 Drainage serosanguinous, mild 05/06/24 111 Odor (after cleansing wound) No 05/06/24 111 Jaye-Wound (Surrounding Skin) Intact;Edema 05/06/241113 Wound Surface Area (cm^2) 8.12 cm^2 05/06/24 1114 Wound Volume (cm^3) 0.812 cm^3 05/06/24 1114 Alteration in Skin Integrity Left;Medial Knee (Active) Alteration in Skin Integrity Lower;Right;Medial Leg (Active) Clinical Image 05/06/24 1128 Wound Length (cm) 5.5 cm (Blocked two wounds) 05/06/24 1128 Wound Width (cm) 3.3 cm 05/06/24 1128 Wound Depth (cm) 0.4 cm (Largest wound) 05/06/24 1128 Yellow Fibrinous Slough (%) 1-25% 05/06/24 1128 Granulation Tissue (%) 51-75% 05/06/24 1128 Granulation Tissue Color red 05/06/24 1128 Necrotic Tissue (%) none 05/06/24 1128 Drainage serosanguinous, moderate 05/06/24 1128 Odor (after cleansing wound) No 05/06/24 1128 Jaye-Wound (Surrounding Skin) Edema;Erythematous 05/06/24 1128 Wound Surface Area (cm^2) 18.15 cm^2 05/06/24 1128 Wound Volume (cm^3) 7.26 cm^3 05/06/24 1128 Alteration in Skin Integrity Anterior;Proximal;Right Leg (Active) Alteration in Skin Integrity Anterior;Distal;Lower;Right Leg (Active) Clinical Image 05/06/24 1130 Wound Length (cm) 12.8 cm 05/06/24 1130 Wound Width (cm) 11.2 cm 05/06/24 1130 Wound Depth (cm) 0.1 cm 05/06/24 1130 Granulation Tissue (%) 100% 05/06/24 1130 Granulation Tissue Color red 05/06/24 1130 Necrotic Tissue (%) none 05/06/24 1130 Drainage serosanguinous, mild 05/06/24 1130 Odor (after cleansing wound) No 05/06/24 1130 Jaye-Wound (Surrounding Skin) Edema;Erythematous 05/06/24 1130 Wound Surface Area (cm^2) 143.36 cm^2 05/06/24 1130 Wound Volume (cm^3) 14.336 cm^3 05/06/24 1130 Alteration in Skin Integrity Right;Lateral;Proximal Thigh (Active) Clinical Image 05/06/24 1122 Wound Length (cm) 16.3 cm (Blocked area) 05/06/24 1122 Wound Width (cm) 6.1 cm 05/06/24 1122 Wound Depth (cm) 0.2 cm 05/06/24 1122 Granulation Tissue (%) 100% 05/06/24 1122 Drainage serosanguinous, moderate 05/06/24 1122 Odor (after cleansing wound) No 05/06/24 1122 Jaye-Wound (Surrounding Skin) Edema 05/06/24 1122 Wound Surface Area (cm^2) 99.43 cm^2 05/06/24 1122 Wound Volume (cm^3) 19.886 cm^3 05/06/24 112 Alteration in Skin Integrity Right;Posterior Popliteal (Active) Clinical Image 05/06/24 1124 Wound Length (cm) 2.5 cm (Blocked) 05/06/24 1124 Wound Width (cm) 0.8 cm 05/06/24 1124 Wound Depth (cm) 0.1 cm 05/06/24 1124 Granulation Tissue (%) 100% 05/06/24 112 Granulation Tissue Color red 05/06/241123 Drainage serosanguinous, mild 05/06/24 1124 Odor (after cleansing wound) No 05/06/24 1124 Jaye-Wound (Surrounding Skin) Edema 05/06/244 Wound Surface Area (cm^2) 2 cm^2 05/06/24 1124 Wound Volume (cm^3) 0.2 cm^3 05/06/244 Assessment & Plan ASSESSMENT: ICD-10-CM 1. Multiple open wounds of lower leg, unspecified laterality, subsequent encounter S81.809D 2. Lymphedema I89.0 3. Irritant contact dermatitis due to other body fluid L24.A9 PLAN: Unna boots to bilateral lower legs. Wrap proximal lower leg first, then from ankle to thigh. Vaseline / triamcinolone to folds in thigh and proximal lower leg, buttressed with gauze to keep skin edges. Nurse visit this Sunday. Follow Up: Return in about 1 week (around 05/13/2024). I spent a total of 30-39 minutes (exact time 30 mins) on the date of service in preparation, delivery, and documentation of the care provided to Mica Jimenez excluding any time spent in the performance of separately billed services or time spent by another provider/QHP. Lillian Hilario MD documented in this encounter Nursing Notes * Veda Jacobson CMA - 05/06/2024 12:54 PM EDT Treatment done as ordered by Dr. Hilario As directed RLE Unna started just below the knee and wrapped toward the medial upper leg trending down under the posterior popliteal fold, then wrapped this portion in coban. Next Unna z started at the base of the toes and wrapped upward to meet the previously applied Unna z, this was then all wrapped with coban. Kerlix bolster to posterior popliteal skin fold radiating up to anterior thigh fold. Size K TubiGrip applied to keep bolstered rolled gauze intact. LLE unna z placed from base of toes to above the knee (to cover medial wound) as per his direction.Kerlix bolster to posterior popliteal skin fold radiating up to anterior thigh fold. Size K Tubi Principal Automation Engineer applied to keep bolstered rolled gauze intact. Compression education reviewed with patient and she voiced her understanding Compression Therapy Education: Any questions, redness or swelling around the wound and development of a temperature of 101F or greater, please contact the [facility]. Please check your toes frequently. If they become blue, purple, pale, cool, numb, and/or tingling elevate your leg higher than your heart for one hour. If you have no relief of the symptoms, cut the entire wrap off and call the [facility], . Keep the wrap dry. If the wrap slides down or bunches at the ankle, call [facility]. Elevate legs above heart for 30 minutes 2-3 times a day. Assisted patient from exam chair to wheelchair safely and pushed patient in her wheelchair to checkout * Veda Jacobson CMA - 05/06/2024 11:05 AM EDT Images from the original note were not included. Chief Complaint Patient presents with Follow Up B/LLE Ilana martin fell off of the RLE 2 days ago - states she's "been trying to but it falls off" Ilana martin remains to LLE but is slid the whole way down to the ankle Patient was instructed to not get up [...] with soap and water. Patient tolerated well for the most part. documented in this encounter Plan of Treatment Upcoming Encounters Date Type Department Care Team (Latest Contact Info) Description 05/19/2024 11:20 AM EDT Office Visit Wound Care, [address] [place] [address] [facility] [address] [facility] [address] 05/28/2024 9:00 AM EDT Office [address], [address] [address] Anna Adames MD 400 [place] [address] 06/06/2024 2:00 PM EDT Appointment Card[address] Studies, [address] [place] [address] 06/16/2024 1:25 PM EST NeuroDiagnostic Study Neurophysiology, [place] [address] [facility] [address] [place] [address] Ramiro Grove, DO [facility] [address] 10/09/2024 11:30 AM EST Hospital Encounter OR [facility], Operating Room, [facility] - 4th Floor [address] [place] [address] Bigg Wetzel MD [address] [place] [address] 10/09/2024 11:30 AM EST - 10/09/2024 12:31 PM EST Surgery OR [facility], Operating Room, [facility] - 4th Floor [address] [place] [address] Bigg Wetzel MD [address] [place] [address] COLONOSCOPY FLEXIBLE PROXIMAL DIAGNOSTIC Scheduled Procedures Name [...] this encounter Medical Devices Implanted Type Area Sitecore Developer Device Identifier Shelf Expiration Date Model / Serial / Lot Device Perm Cntrl [id number] - [id number] Implanted:Qty: 2 on 09/27/2015 by Sharda Ruiz, Corey Rucker MD at OR [facility] Uterus [employer] 05/03/2017 [id number] / / [id number] documented as of this encounter Visit Diagnoses Diagnosis Multiple open wounds of lower leg, unspecified laterality, subsequent encounter- Primary Lymphedema Other lymphedema Irritant contact dermatitis due to other body [...] Power of Attor benoit? No Care Teams Anodic Operator Relationship Specialty Start Date End Date Melissa Cruz PA-C [address] [facility] [address] [place] [address] PCP - General Physician Producer Director 06/02/21 documented as of this encounter
--- OUTSIDE RECORDS SUMMARY | 2024-08-09 23:53 | External Medical Summary | Summary of Care ---
Author Name Unknown Organization [facility] Address [address] [place] [address] Phone [phone] Care Team Providers Care Treatment Technician Name Role Phone CarylTy mansfieldanthony Adam PA-C Primary Care Provider +1- [phone] Reason for Visit * Reason Comments Wound Care BLE - WOUNDS --EDEMA Encounter Details Date Type Department Care Team ([facility] st Contact Info) Description 05/15/2024 10:30 AM EDT Nurse Only Wound Care, [facility] [address] [place] [address] [facility], Nurse Wound Care [address] [place] [address] Wound Care (BLE - WOUNDS --EDEMA ) [...] DAY 90 Tablet 1 03/17/2024 Active Nystatin 006712 UNIT/GM External Powder (Nystop) Apply topically to [...] Next Due Pneumococcal Conjugate Vacci ne, 20-valent ([id number]) 12/04/2022 Pneumococcal Polysaccharide PPV23 (Pneumovax) 05/06/2011 Seasonal [...] UnnaZ to BLE- NO Coban just Tubi scaffold builder to cover this was down and compressed [...] Left leg without significant changes this week. [place] Text was sent to on her behalf -- Will reapply current tx and she was encouraged to keep her appointments with Wound clinic . She stated she will do so as no longer will have [facility] home health until done with Twice weekly visits here. Dressings reapplied and has Surgilast to cover as no Sz K or J Tubi scaffold builder available from supplier atthis time. Safety precautions [...] or greater, please contact the [facility]. Please check your toes frequently. If they become blue, purple, pale, cool, numb, and/or tingling elevate your leg higher than your heart for one hour. If you have no relief of the symptoms, cut the entire wrap off and call the [facility], . Keep the wrap dry. If the wrap slides down or bunches at the ankle, call [facility]. Elevate legs above heart for 30 minutes [...] 11:20 AM EDT Office Visit Wound Care, [facility] [address] [place] [address] Yuriy Hilario MD [address] [place] [address] [place] [address] 05/28/2024 9:00 AM EDT Office Visit Cardiology, [address] [place] [address] Anna Adames MD [address] [facility] [place] [address] 06/06/2024 2:00 PM EDT Appointment Cardiac Studies, [address] [place] [address] 06/16/2024 1:25 PM EST NeuroDiagnostic Study Neurophysiology, [address] [place] [address] Ramiro Grove, DO [address] [facility] [address] 10/09/2024 11:30 AM EST Hospital Encounter OR [facility], Operating Room, [facility] Floor [address] [place] [address] [place] [address] Bigg Wetzel MD [address] [place] [address] 10/09/2024 11:30 AM EST - 10/09/2024 12:31 PM EST Surgery OR [facility], Operating Room, [facility] Floor [address] [place] [address] [place] [phone] Bigg Wetzel MD [address] [place] [address] COLONOSCOPY FLEXIBLE PROXIMAL DIAGNOSTIC Scheduled Procedures Name Priority Associated Diagnoses Date/Ti wa COLONOSCOPY FLEXIBLE PROXIMAL DIAGNOSTIC Screening for colon [...] this encounter Medical Devices Implanted Type Area Bakery Helper Device Identifier Shelf Expiration Date Model / Serial / Lot Device Perm Cntrl [id number] - [id number] Implanted:Qty: 2 on 09/27/2015 by Sharda Ruiz, Corey Rucker MD at OR [facility] Uterus [employer] 05/03/2017 [id number] / / [id number] documented as of this encounter Visit Diagnoses [...] Power of Attor benoit? No Care Teams Treatment Technician Relationship Specialty Start Date End Date Melissa Cruz PA-C [address] [facility] [address] [place] [address] PCP - General Physician Corporate Travel Coordinator 06/02/21 documented as of this encounter
--- OUTSIDE RECORDS SUMMARY | 2024-08-09 23:53 | External Medical Summary | Summary of Care ---
Author Name Unknown Organization [facility] Address [address] [place] [address] Phone [phone] Care Team Providers Care Whiskey Regauger Name Role Phone Melissa Cruz PA-C Primary Care Provider +1- [phone] Reason for Referral * Medication Prior Authorization - Closed Specialty Diagnoses / Procedures Referred By Contbenjamin t Referred To Contact Diagnoses Neuropathy Elizabeth Butterfield MD [address] [place] [address] [place] [id number] Referral ID Status Reason Start Date Expiration Date Visits Re quested Visits Authorized [id number] Closed [phone] Reason for Visit * Reason Comments eRx-Medication Refill Encounter Details Date Type Department Care Team (Late st Contact Info) Description 05/02/2024 Refill [place] [address] [place] [id number] Melissa Cruz PA-C [facility] [address] [place] [address] [id number] Neuropathy Allergies Active Allergy Reactions Criticality Noted Date Comments Aspirin 01/27/2014 Increased bleeding documented as of this encounter (statuses as of 05/03/2024) Medications Medication Sig Dispensed Refills Start Date [...] IN THE MORNING 16 mL 3 Active Clotrimazole-Betame thasone 1-0.05 % External Cream Apply topically to affected area 2 times a day. Apply to lower legs once daily at time of dressing change. Avoid applying to deep wounds. 45 g 3 3 Active One-A-Day Womens 50 Plus Oral Tablet Take by mouth. Acti ve Furosemide 40 MG Oral Tablet (Lasix)Indications: Lymphedema Take 1 Tablet by mouth in the morning. 90 Tablet 2 3 Active Montelukast Sodium 10 MG Oral Tablet (Singulair) Take 1 Tablet by mouth at bedtime. 30 Tablet 11 4 Active Omeprazole 20 MG Oral Capsule Delayed [...] DAY 90 Tablet 1 4 Active Nystatin 958516 UNIT/GM External Powder (Nystop) Apply topically to [...] 4 Active Pregabalin 150 MG Oral Capsule (Lyrica)Indications :Neuropathy TAKE 1 CAPSULE BY MOUTH IN THE MORNING AT NOON IN THE EVENING AND BEFORE BEDTIME 120 Capsule 1 4 Active Pregabalin 150 MG Oral Capsule (Lyrica)Indications :Neuropathy Take 1 Capsule by mouth in the morning and 1 Capsule at noon and 1 Capsule in the evening and 1 Capsule before bedtime. 120 Capsule 1 4 05/03/20 24 Discontinued documented as of this encounter (statuses as of 05/03/2024) Active Problems Problem Noted Date Diagnosed Date [...] as of this encounter (statuses as of 05/03/2024) Resolved Problems Problem Noted Date Diagnosed Date [...] as of this encounter (statuses as of 05/03/2024) Immunizations Name Administration Dates Next Due Pneumococcal Conjugate Vacci ne, 20-valent ([id number]) 12/04/2022 Pneumococcal Polysaccharide PPV23 (Pneumovax) 05/06/2011 Seasonal Influenza, PF, 6 M & above, IM , (FluLaval or Fluzone) 06/25/2023,06/05/2022,06/02/2021,05/22,05/06/2018,04/27/2017 Seasonal Influenza, Quadriva lent, No Preserve, IM 05/30/2016 Seasonal Influenza, Trivalen t, (IIV3), PF, (Fluzone) 04/23/2024 Seasonal Influenza, Trivalen t, (IIV3), with Preserv, (Fluzone) 05/27/2014,04/11/2013 TDAP, Age 7 and older, IM (Adacel) [...] No 03/10/2024 Does the household have a [facility] source of income? (Household - for [...] encounter Miscellaneous Notes * Telephone Encounter - Elizabeth Butterfield MD - 05/03/2024 5:37 PM EDT Signed Prescriptions: Disp Refills Pregabalin 150 MG Oral Capsule (Lyrica) 120 Ca*1 Sig: TAKE 1 CAPSULE BY MOUTH IN THE MORNING AT NOON IN THE EVENING AND BEFORE BEDTIMEAuthorizing Provider: ELIZABETH BUTTERFIELD * Telephone Encounter - Jovita Mendoza [facility] - 05/03/2024 11:32 AM EDT Pending Prescriptions: Disp Refills Pregabalin 150 MG Oral Capsule [Pharmacy M*120 Ca*1 Sig: TAKE 1 CAPSULE BY MOUTH IN THE MORNING AT NOON IN THE EVENING AND BEFORE BEDTIME * Telephone Encounter - Jovita Mendoza [facility] - 05/03/2024 11:31 AM EDT I have reviewed the patients controlled substance dispensing history in the Prescription Drug Monitoring Program in compliance with the [facility] regulations before prescribing a controlled substance. PDMP checked on 05/03/2024. Pending Prescriptions: Disp Refills Pregabalin 150 MG Oral Capsule (Lyrica) [*120 Ca*1 Sig: TAKE 1 CAPSULE BY MOUTH IN THE MORNING AT NOON IN THE EVENING AND BEFORE BEDTIME Last Visit: 04/23/2024 (in office), 01/02/2024 (telemedicine) Next Visit: 05/14/2024 Date medication was last filled: 03/10/24 Date medication is due for refill: 04/08/24 Pharmacy: [facility] #[id number] [place] Is this request for a controlled substance? Yes and Urine Drug Screen Not completed Toxicology results: Results for orders placed or performed during the hospital encounter of 08/17/17 TOX SCREEN, URINE, W/O CONFIRMATION Result Value AMPHETAMINES NEGATIVE BARBITURATES NEGATIVE BENZODIAZEPINES NEGATIVE CANNABINOIDS NEGATIVE COCAINE METABOLITE NEGATIVE MORPHINE/ CODEINE NEGATIVE METHADONE METABOLITE NEGATIVE OXYCODONE NEGATIVE NOTE: THE ABOVE SCREENING RESULTS ARE PRESUMPTIVE AND CAN ONLY BE USED FOR MEDICAL PURPOSES. CONFIRMATORY TESTING IS AVAILABLE UPON REQUEST. CUTOFF CONCENTRATION Please approve if appropriate. Thanks, Jovita Mendoza [facility] Clinical Pharmacist [facility] ([facility]) [phone] * Telephone Encounter - Osbaldo Springer PHARM Tech - 05/03/2024 11:09 AM EDT Pt is out of medication. Informed there is no guarantee this will be completed today. Pt verbalizedunderstanding. Did you pend patient's preferred pharmacy and medication before forwarding?yes [id number] [facility] [facility] Pending Prescriptions: Disp Refills Pregabalin 150 MG Oral Capsule (Lyrica) [*120 Ca*1 Sig: TAKE 1 CAPSULE BY MOUTH IN THE MORNING AT NOON IN THE EVENING AND BEFORE BEDTIME Last Visit: 04/23/2024 (in office), 01/02/2024 (telemedicine) Next Visit: 05/14/2024 If no future appointments scheduled, and last appointment is greater than a year ago, please schedule patient for a follow-up appointment Last date the medication was ordered: 01/02/24 Is this request for a controlled substance?Yes, What was the last refill date 01/02/24 w/ quantity 120 and dosage 150 mg and Urine Drug Screen was completed Urine Drug Screen: Results for orders placed [...] Department Care Team (Latest Contact Info) Description 05/06/2024 11:00 AM EDT Office Visit Wound Care, [address] [place] [address] Yuriy Hilario MD [address] [place] [address] 05/14/2024 1:40 PM EDT Office Visit [place] [address] [place] [address] Melissa Cruz, PA-Brant [facility] [address] [place] [address] 05/28/2024 9:00 AM EDT Office Visit Cardiology, [address] [place] [address] Anna Adames MD [address] [facility] [address] [place] [address] 06/06/2024 2:00 PM EDT Appointment Cardiac Studies, [address] [place] [address] 06/16/2024 1:25 PM EST NeuroDiagnostic Study Neurophysiology, [address] [place] [address] Ramiro Grove, DO [address] [facility], [place] [address] 10/09/2024 11:30 AM EST Hospital Encounter OR GL, Operating Room, [facility] - 4th Floor [address] [place] [address] Bigg Wetzel MD [address] [place] [address] 10/09/2024 11:30 AM EST - 10/09/2024 12:31 PM EST Surgery OR [facility], Operating Room, [facility] - 4th Floor [address] [place] [address] Bigg Wetzel MD [address] [place] [address] COLONOSCOPY FLEXIBLE PROXIMAL DIAGNOSTIC Scheduled Procedures Name [...] this encounter Medical Devices Implanted Type Area Rock Star Device Identifier Shelf Expiration Date Model / Serial / Lot Device Perm Cntrl [id number] - [id number] Implanted:Qty: 2 on 09/27/2015 by Sharda Ruiz, Corey Rucker MD at OR [facility] Uterus [employer] 05/03/2017 [id number] / / [id number] documented as of this encounter Visit Diagnoses Diagnosis Neuropathy Mononeuritis of unspecified site Screening for colon cancer Special screening for [...] Power of Attor benoit? No Care Teams Whiskey Regauger Relationship Specialty Start Date End Date Melissa Cruz, MARIAN [address] [facility] [place] [address] PCP - General Physician Morgue Keeper 06/02/21 documented as of this encounter
--- OUTSIDE RECORDS SUMMARY | 2024-08-09 23:53 | External Medical Summary | Summary of Care ---
Author Name Unknown Organization [facility] Address [address] [place] [address] Phone [phone] Care Team Providers Care Economic History Teacher Name Role Phone CarylTy mansfieldanthony Adam PA-C Primary Care Provider +1- [phone] Reason for Visit * Reason Comments Wound Care Ble - wounds lymphad erik Encounter Details Date Type Department Care Team ([facility] st Contact Info) Description 05/09/2024 10:00 AM EDT Nurse Only Wound Care, [facility] [address] [place] [address] [facility], Nurse Wound Care [address] [place] [address] Wound Care (Ble - wounds lymphadema) Allergies Active Allergy Reactions Criticality Noted Date Comments Aspirin 01/27/2014 Increased bleeding documented as of this encounter (statuses as of 05/09/2024) Medications Medication Sig Dispensed Refills Start Date [...] DAY 90 Tablet 1 03/17/2024 Active Nystatin 881409 UNIT/GM External Powder (Nystop) Apply topically to [...] as of this encounter (statuses as of 05/09/2024) Active Problems Problem Noted Date Diagnosed Date [...] as of this encounter (statuses as of 05/09/2024) Resolved Problems Problem Noted Date Diagnosed Date [...] as of this encounter (statuses as of 05/09/2024) Immunizations Name Administration Dates Next Due Pneumococcal Conjugate Vacci ne, 20-valent ([id number]) 12/04/2022 Pneumococcal Polysaccharide PPV23 (Pneumovax) 05/06/2011 Seasonal [...] encounter Patient Instructions * Patient Instructions* Megha López LPN - 05/09/2024 3:12 PM EDT Compression Therapy Education: Any questions, redness or swelling around the wound and development of a temperature of 101F or greater, please contact the [facility]. Please check your toes frequently. If they become blue, purple, pale, cool, numb, and/or tingling elevate your leg higher than your heart for one hour. If you have no relief of the symptoms, cut the entire wrap off and call the [facility], . Keep the wrap dry. If the wrap slides down or bunches at the ankle, call [facility]. Elevate legs above heart for 30 minutes 2-3 times a day. documented in this encounter Nursing Notes * Megha López LPN - 05/09/2024 2:46 PM EDT Images from the original note were not included. Assisted Mica onto exam seating from w/c - she is aware to not rise unassisted for her safety. She stated Right leg the leg with extra wrap has stayed up much better than --- Photo taken to demonstrate this.Wraps were then removed -- wounds and legs / feet washed -- No photos this date due to time constraint for transportation. Wounds that did stay covered do look better and the wounds to Leftleg that she ensured covered more by pulling tubi tubing mill operator up if it slid down -- less cat hair this date. So this date did apply in same manner as Right leg with Added Unna z and coban over lower thigh knee area. She then had Unna z wrapped with Gauze padding in areas that had noted drainage this date. Medial wounds on bilateral legs with this drainage. Triamcinolone / vaseline to Skin folds that remain with open areas to upper thigh. These were then buttressed with Kerlix gauze. Tubi Laborer Beam House K was then placed over Unna Boot treatment -- Did reminded her to please pull back up to keep in place as she can. Socks and shoes placed Assisted from exam seating to w/c safely and taken to check out. Alerted her to call with any questions or concerns and will see her on Sunday. documented in this encounter Plan of Treatment Upcoming Encounters Date Type Department Care Team (Latest Contact Info) Description 05/12/2024 10:20 AM EDT Office Visit Wound Care, [address] [address] Yuriy Hilario MD [address] [place] [address] 05/28/2024 9:00 AM EDT Office Visit Cardiology, [address] [place] [address] Anna Adames MD [address] [place], [place] [address] [address] 06/06/2024 2:00 PM EDT Appointment Cardiac Studies, [address] [place] [address] 06/16/2024 1:25 PM EST NeuroDiagnostic Study Neurophysiology, [address] [place] [address] Ramiro Grove, DO [address] [facility], [place] [address] 10/09/2024 11:30 AM EST Hospital Encounter OR GL, Operating Room, [facility] - 4th Floor [address] [place] [address] Bigg Wetzel MD [address] [place] [address] 10/09/2024 11:30 AM EST - 10/09/2024 12:31 PM EST Surgery OR [facility], Operating Room, [facility] - 4th Floor [address] [place] [address] Bigg Wetzel MD [address] [place] [address] COLONOSCOPY FLEXIBLE PROXIMAL DIAGNOSTIC Scheduled Procedures Name [...] this encounter Medical Devices Implanted Type Area Review Analyst Device Identifier Shelf Expiration Date Model / Serial / Lot Device Perm Cntrl [id number] - [id number] Implanted:Qty: 2 on 09/27/2015 by Sharda Ruiz, Corey Rucker MD at OR [facility] Uterus [employer] 05/03/2017 [id number] / / [id number] documented as of this encounter Visit Diagnoses [...] Power of Attor benoit? No Care Teams Economic History Teacher Relationship Specialty Start Date End Date Melissa Cruz, MARIAN [address] [facility] [place] [address] PCP - General Physician Chief Science Officer 06/02/21 documented as of this encounter
--- OUTSIDE RECORDS SUMMARY | 2024-08-09 23:53 | External Medical Summary | Summary of Care ---
Author Name Unknown Organization [facility] Address [address] [place] [address] Phone [phone] Care Team Providers Care Window Shade Ring Sewer Name Role Phone CarylTy mansfieldanthony [place] PA-C Primary Care Provider +1- [phone] Reason for Visit * Reason Comments Follow Up Encounter Details Date Type Department Care Team (Late st Contact Info) Description 05/19/2024 11:20 AM EDT Office Visit Wound Care, [facility] [address] [place] [address] Yuriy Hilario MD [address] [place] [address] Multiple open wounds of lower leg, unspecified [...] DAY 90 Tablet 1 03/17/2024 Active Nystatin 390270 UNIT/GM External Powder (Nystop) Apply topically to [...] Next Due Pneumococcal Conjugate Vacci ne, 20-valent ([id number]) 12/04/2022 Pneumococcal Polysaccharide PPV23 (Pneumovax) 05/06/2011 Seasonal [...] 05/19/24 1133 Wound Depth (cm) 0.1 cm 05/19/24 113 Ulcer Thickness Full 05/19/243 Yellow Fibrinous Slough [...] Notes * Venus [place], RN - 05/19/2024 11:38 AM EDT Dressings [...] 2:00 PM EDT Nurse Only Wound Care, [address] [address] [facility], Nurse Wound Care [address] [place], [place] [address] [address] 05/26/2024 9:40 AM EDT Office Visit Wound Care, [address] [place] [address] Yuriy Hilario MD [address] [facility] [address] 06/06/2024 2:00 PM EDT Appointment Cardiac Studies, [address] [place] [address] 06/16/2024 1:25 PM EST NeuroDiagnostic Study Neurophysiology, [address] [address] Ramiro Grove, DO [address] [facility] [place] [address] 09/15/2024 10:00 AM EST Office Visit Cardiology, [address] [address] Anna Adames MD [address] [place] [address] [place] [address] 10/09/2024 11:30 AM EST Hospital Encounter OR GL, Operating Room, [facility] Floor [address] [place], [place] [address] [id number] Bigg Wetzel MD [address] [place] [address] 10/09/2024 11:30 AM EST - 10/09/2024 12:31 PM EST Surgery OR [facility], Operating Room, [facility] - 4th Floor [address] [place] [address] [place] [address] Bigg Wetzel MD [address] [facility] [place] [address] COLONOSCOPY FLEXIBLE PROXIMAL DIAGNOSTIC Scheduled Procedures Name [...] this encounter Medical Devices Implanted Type Area Communication Specialist Device Identifier Shelf Expiration Date Model / Serial / Lot Device Perm Cntrl [id number] - [id number] Implanted:Qty: 2 on 09/27/2015 by Sharda Ruiz, Corey Rucker MD at OR [facility] Uterus [employer] 05/03/2017 [id number] / / [id number] documented as of this encounter Visit Diagnoses [...] Power of Attor benoit? No Care Teams Window Shade Ring Sewer Relationship Specialty Start Date End Date Melissa Cruz PA-C [address] [facility] [address] [place] [address] PCP - General Physician Electron Tube Assembler 06/02/21 documented as of this encounter
--- OUTSIDE RECORDS SUMMARY | 2024-08-09 23:54 | External Medical Summary | Summary of Care ---
Author Name Unknown Organization [facility] Address [address] [place] [address] Phone [phone] Care Team Providers Care Keyboarding Clerk Name Role Phone CarylTy mansfieldanthony Downing PA-C Primary Care Provider +1- [phone] Reason for Visit * Reason Comments Wound Care unnaboots Encounter Details Date Type Department Care Team ([facility] st Contact Info) Description 04/24/2024 11:30 AM EDT Nurse Only Wound Care, [facility] [address] [place] [address] [facility], Nurse Wound Care [address] [place] [address] Wound Care (unnaboots) Allergies Active Allergy Reactions Criticality Noted Date Comments Aspirin 01/27/2014 Increased bleeding documented as of this encounter (statuses as of 04/24/2024) Medications Medication Sig Dispensed Refills Start Date [...] IN THE MORNING 16 mL 09/30/2022 Active Clotrimazole-Betamet hasone 1-0.05 % External Cream Apply topically to [...] WITH FOOD.. 90 Tablet 5 12/03/2023 Active Pregabalin 150 MG Oral Capsule (Lyrica)Indications: Neuropathy Take 1 Capsule by mouth in the morning and 1 Capsule at noon and 1 Capsule in the evening and 1 Capsule before bedtime. 120 Capsule 1 01/02/2024 Active Silver sulfADIAZINE 1 % External Cream (Silvadene) Apply to open wounds daily. 400 g 1 02/08/2024 Active predniSONE 10 MG Oral Tablet (Deltasone) Take 5 tabs for 2 days, 4 tabs for 2 days, 3 tabs for 2 days, 2 tabs for 2 days 1 tab for 2 days 30 Tablet 03/05/2024 Active Additional Information Patient not taking.Reported on 04/21/2024 Diclofenac Sodium 1 % External Gel (Voltaren) [...] DAY 90 Tablet 1 03/17/2024 Active Nystatin 664637 UNIT/GM External Powder (Nystop) Apply topically to [...] IN THE MORNING 90 Capsule 04/23/2024 Active documented as of this encounter (statuses as of 04/24/2024) Active Problems Problem Noted Date Diagnosed Date [...] as of this encounter (statuses as of 04/24/2024) Resolved Problems Problem Noted Date Diagnosed Date [...] as of this encounter (statuses as of 04/24/2024) Immunizations Name Administration Dates Next Due Pneumococcal Conjugate Vacci ne, 20-valent ([id number]) 12/04/2022 Pneumococcal Polysaccharide PPV23 (Pneumovax) 05/06/2011 Seasonal [...] on file documented as of this encounter Nursing Notes * Venus [place] RN - 04/24/2024 3:47 PM EDT Pt arrived with no unnaboots on, no dressings on right leg, gauze tapped on left leg wound. She states to me "the Unnaboots don't work for me". She states that the unnaboots that were applied on Sunday fell down to her ankles by Sunday night. On Sunday when the home health nurse came she removed them and applied gauze dressings to her wounds. I suggested that we try again, patient is willing to allow me to reapply dressings. Bilateral legs washed with soap and water, towel dried. Applied gauze and xtrasorb to wounds, Zinc Unnaboots applied to lower legs stopping just before the large skin folds on bilateral lower legs. Applied antifungal powder to skin folds and loosely tucked kerlix roll into skin folds. Pt will return on Sunday for a follow-up appointment. documented in this encounter Plan of Treatment Upcoming Encounters Date Type Department Care Team (Latest Contact Info) Description 04/28/2024 10:00 AM EDT Office Visit Wound Care, [address] [place] [address] Yuriy Hilario MD [facility] [place] [address] 05/14/2024 1:40 PM EDT Office Visit [facility] [address] [place] [address] Melissa Cruz PA-Brant [facility] [address] [place] [address] 05/28/2024 9:00 AM EDT Office Visit Cardiology, [address] [place] [address] Anna Adames MD [address] [place] [address] [place] [address] 06/06/2024 2:00 PM EDT Appointment Cardiac Studies, [address] [address] 06/16/2024 1:25 PM EST NeuroDiagnostic Study Neurophysiology, [address] [place] [address] Ramiro Grove, DO [address] [place] [address] 10/09/2024 11:30 AM EST Hospital Encounter [facility], Operating Room, [facility] - 4th Floor [address] [place] [address] [place] [phone] Bigg Wetzel MD [address] [place] [address] 10/09/2024 11:30 AM EST - 10/09/2024 12:31 PM EST Surgery OR [facility], Operating Room, [facility] - 4th Floor [address] [place] [address] Bigg Wetzel MD [address] [place] [address] COLONOSCOPY FLEXIBLE PROXIMAL DIAGNOSTIC Scheduled Orders Name Type Priority Associated Diagnoses Orde r Schedule UNNA BOOT (NURSE APPLY) Procedures Routine Multiple open wounds of lower leg, unspecified laterality, subsequent encounter Lymphedema Class 3 severe obesity due to excess calories with serious comorbidity and body mass index (BMI) greater than or equal to 70 in adult (HCC) Irritant contact dermatitis due to other body fluid Every Week for 50 Occurrences starting 04/24/2024 until 10/22/2024 Scheduled Procedures Name Priority Associated Diagnoses Date/Ti [...] this encounter Medical Devices Implanted Type Area Compliance Testing Analyst Device Identifier Shelf Expiration Date Model / Serial / Lot Device Perm Cntrl [id number] - [id number] Implanted:Qty: 2 on 09/27/2015 by Sharda Ruiz, Corey Rucker MD at OR [facility] Uterus [employer] 05/03/2017 [id number] / / [id number] documented as of this encounter Visit Diagnoses [...] Power of Attor benoit? No Care Teams Keyboarding Clerk Relationship Specialty Start Date End Date Melissa Cruz PA-C [address] [facility] [place] [address] PCP - General Physician Chain Machine Operator 06/02/21 documented as of this encounter
--- OUTSIDE RECORDS SUMMARY | 2024-08-09 23:54 | External Medical Summary | Summary of Care ---
Author Name Unknown Organization [facility] Address [address] [place] [address] Phone [phone] Care Team Providers Care Pole Tester Name Role Phone CarylTy mansfieldanthony AGUILAC Primary Care Provider +1- [phone] Reason for Visit * Reason Comments Follow Up B/LLE Patient states wrap fell off this morningPresents with no dressing/no wrapHas not tried vinegar solution sprayAlso states the Miconazole powder made her itch Encounter Details Date Type Department Care Team (Late st Contact Info) Description 04/28/2024 10:00 AM EDT Office Visit Wound Care, [facility] [address] [place], [place] [id number] Yuriy Hilario MD [address] [place] [address] Multiple open wounds of lower leg, unspecified laterality, subsequent encounter*; Lymphedema Allergies Active Allergy Reactions Criticality Noted Date Comments Aspirin 01/27/2014 Increased bleeding documented as of this encounter (statuses as of 05/01/2024) Medications Medication Sig Dispensed Refills Start Date [...] IN THE MORNING 16 mL 09/30/2022 Active Clotrimazole-Betame thasone 1-0.05 % External Cream [...] 12/03/2023 Active Pregabalin 150 MG Oral Capsule (Lyrica)Indications [...] DAY 90 Tablet 1 03/17/2024 Active Nystatin 055122 UNIT/GM External Powder (Nystop) Apply topically to [...] IN THE MORNING 90 Capsule 04/23/2024 Active predniSONE 10 MG Oral Tablet (Deltasone) Take 5 tabs for 2 days, 4 tabs for 2 days, 3 tabs for 2 days, 2 tabs for 2 days 1 tab for 2 days 30 Tablet 03/05/2024 4 Discontinue d(Medicatio n/Dose Changed) documented as of this encounter (statuses as of 05/01/2024) Active Problems Problem Noted Date Diagnosed Date [...] as of this encounter (statuses as of 05/01/2024) Resolved Problems Problem Noted Date Diagnosed Date [...] as of this encounter (statuses as of 05/01/2024) Immunizations Name Administration Dates Next Due Pneumococcal Conjugate Vacci ne, 20-valent ([id number]) 12/04/2022 Pneumococcal Polysaccharide PPV23 (Pneumovax) 05/06/2011 Seasonal [...] * Patient Instructions* Veda Jacobson CMA - 04/28/2024 12:42 PM EDT Compression Therapy Education: Any questions, redness or swelling around the wound and development of a temperature of 101F or greater, please contact the [facility]. Please check your toes frequently. If they become blue, purple, pale, cool, numb, and/or tingling elevate your leg higher than your heart for one hour. If you have no relief of the symptoms, cut the entire wrap off and call the [facility], . Keep the wrap dry. If the wrap slides down or bunches at the ankle, call [facility]. Elevate legs above heart for 30 minutes 2-3 times a day. documented in this encounter Progress Notes * Yuriy Hilario MD - 04/28/2024 10:41 AM EDT Images from the original note were not included. WOUND OUTPATIENT FOLLOW-UP NOTE DOS: 04/28/2024 CC: Follow-up HPI: Mica Jimenez returns for follow-up of bilateral lower leg wounds. She has not yet started the vinegar water. Current dressing: See Wound Assessment Dressing change [...] Skin Integrity Proximal;Right;Medial Leg (Active) Clinical Image 04/28/24 1018 Wound Length (cm) 5.5 cm 04/28/24 1018 Wound Width (cm) 3 cm 04/28/24 1018 Wound Depth (cm) 0.1 cm 04/28/24 1018 Yellow Fibrinous Slough (%) 1-25% 04/28/24 1015 Granulation Tissue (%) 100% 04/28/24 1018 Granulation Tissue Color red 04/28/24 1018 Drainage serous, heavy 04/28/24 1018 Odor (after cleansing wound) No 04/28/24 1018 Jaye-Wound (Surrounding Skin) Edema 04/28/24 1018 Wound Surface Area (cm^2) 16.5 cm^2 04/28/24 1018 Wound Volume (cm^3) 1.65 cm^3 04/28/24 1018 Alteration in Skin Integrity Lower;Right;Lateral;Proximal Leg (Active) Clinical Image 04/28/24 1005 Wound Length (cm) 4.3 cm 04/28/24 1005 Wound Width (cm) 2.2 cm 04/28/24 1005 Wound Depth (cm) 0.7 cm 04/28/24 1005 Yellow Fibrinous Slough (%) 76-99% 04/28/24 1005 Granulation Tissue (%) 1-25% 04/28/24 1005 Granulation Tissue Color red 04/28/24 1005 Drainage serosanguinous, heavy 04/28/24 1005 Odor (after cleansing wound) No 04/28/24 1005 Jaye-Wound (Surrounding Skin) Edema;Erythematous 04/28/24 1005 Wound Surface Area (cm^2) 9.46 cm^2 04/28/24 1005 Wound Volume (cm^3) 6.622 cm^3 04/28/24 1005 Alteration in Skin Integrity Anterior;Distal;Left;Lower Leg (Active) Clinical Image 04/28/24 1010 Drainage none 04/28/24 1010 Odor (after cleansing wound) No 04/28/24 1010 Jaye-Wound (Surrounding Skin) Edema 04/28/24 1010 Alteration in Skin Integrity Left;Lower;Medial Leg (Active) Clinical Image 04/28/24 1008 Wound Length (cm) 5.8 cm 04/28/24 1008 Wound Width (cm) 4.2 cm 04/28/24 1008 Wound Depth (cm) 0.2 cm 04/28/24 1008 Yellow Fibrinous Slough (%) 1-25% 04/28/24 1008 Granulation Tissue (%) 51-75% 04/28/24 1008 Granulation Tissue Color pale/pink 04/28/24 1008 Drainage serosanguinous, moderate 04/28/24 1008 Odor (after cleansing wound) No 04/28/24 1008 Jaye-Wound (Surrounding Skin) Edema 04/28/24 1008 Wound Surface Area (cm^2) 24.36 cm^2 04/28/24 1008 Wound Volume (cm^3) 4.872 cm^3 04/28/24 1008 Alteration in Skin Integrity Anterior;Proximal;Left Leg (Active) Alteration in Skin Integrity Anterior;Left Thigh (Active) Clinical Image 04/28/24 1010 Wound Length (cm) 3.4 cm 04/28/24 1010 Wound Width (cm) 0.2 cm 04/28/24 1010 Wound Depth (cm) 0.1 cm 04/28/24 1010 Granulation Tissue (%) 100% 04/28/24 1010 Granulation Tissue Color pale/pink 04/28/24 1010 Drainage serous, moderate 04/28/24 1010 Odor (after cleansing wound) No 04/28/24 1010 Jaye-Wound (Surrounding Skin) Edema 04/28/24 1010 Wound Surface Area (cm^2) 0.68 cm^2 04/28/24 1010 Wound Volume (cm^3) 0.068 cm^3 04/28/24 1010 Alteration in Skin Integrity Left;Proximal;Lateral Leg (Active) Alteration in Skin Integrity Left;Medial Knee (Active) Alteration in Skin Integrity Lower;Right;Medial Leg (Active) Clinical Image 04/28/24 1003 Wound Length (cm) 3.9 cm 04/28/24 1003 Wound Width (cm) 3.4 cm 04/28/24 1003 Wound Depth (cm) 0.2 cm 04/28/24 1003 Yellow Fibrinous Slough (%) 51-75% 04/28/24 1003 Granulation Tissue (%) 26-50% 04/28/24 1003 Granulation Tissue Color red 04/28/24 1003 Drainage serosanguinous, heavy 04/28/24 1003 Odor (after cleansing wound) No 04/28/24 1003 Jaye-Wound (Surrounding Skin) Edema;Erythematous 04/28/24 1003 Wound Surface Area (cm^2) 13.26 cm^2 04/28/24 1003 Wound Volume (cm^3) 2.652 cm^3 04/28/24 1003 Alteration in Skin Integrity Anterior;Proximal;Right Leg (Active) Clinical Image 04/28/24 1014 Wound Length (cm) 6 cm 04/28/24 1014 Wound Width (cm) 1 cm 04/28/24 1014 Wound Depth (cm) 0.1 cm 04/28/24 1014 Drainage serosanguinous, moderate 04/28/24 1014 Odor (after cleansing wound) No 04/28/24 1014 Jaye-Wound (Surrounding Skin) Edema 04/28/24 1014 Wound Surface Area (cm^2) 6 cm^2 04/28/24 1014 Wound Volume (cm^3) 0.6 cm^3 04/28/24 1014 Alteration in Skin Integrity Anterior;Distal;Lower;Right Leg (Active) Clinical Image 04/28/24 1006 Drainage none 04/28/24 1006 Odor (after cleansing wound) No 04/28/24 1006 Jaye-Wound (Surrounding Skin) Edema 04/28/24 1006 Assessment & Plan ASSESSMENT: ICD-10-CM 1. Multiple open wounds of lower leg, unspecified laterality, subsequent encounter S81.809D 2. Lymphedema I89.0 PLAN: Unna boots to bilateral lower legs. Vaseline / triamcinolone to folds in thigh and proximal lower leg, buttressed with gauze to keep skin edges. Follow Up: Return in about 1 week (around 05/05/2024). Lillian Hilario MD documented in this encounter Nursing Notes * Veda Jacobson CMA - 04/28/2024 12:30 PM EDT Treatment done as ordered by Dr. Hilario Vaseline/triamcinolone applied to folds in thigh and proximal lower leg bilaterally. Buttressed with rolled Kerlix packed loosely to keep skin edges. Unna boots applied B/LLE. Tubi Ui Developer With Angular Js - Size K applied to B/LLE to help keep buttressed rolled kerlix in place. Socks and shoes applied. Compression education reviewed with patient and she voiced her understanding Compression Therapy Education: Any questions, redness or swelling around the wound and development of a temperature of 101F or greater, please contact the [facility]. Please check your toes frequently. If they become blue, purple, pale, cool, numb, and/or tingling elevate your leg higher than your heart for one hour. If you have no relief of the symptoms, cut the entire wrap off and call the [facility], . Keep the wrap dry. If the wrap slides down or bunches at the ankle, call [facility]. Elevate legs above heart for 30 minutes 2-3 times a day. Assisted patient from exam seating to wheelchair safely. Pushed patient in her wheelchair to check out. * Veda Jacobson CMA - 04/28/2024 10:27 AM EDT Images from the original note were not included. Chief Complaint Patient presents with Follow Up B/LLE Patient states wrap fell off this morning Presents with no dressing/no wrap Has not tried vinegar solution spray Also states the Miconazole powder made her itch Patient was instructed to not get up on the exam table/exam chair until directed and assisted by their provider; patient is to remain seated in the chair/ wheelchair/ exam table/ exam chair for fall prevention and safety reasons. Patient is aware to have assistance to step down off exam table/exam chair with personnel. Patient voiced full comprehension of instructions. B/LLE Wounds then legs and feet washed with soap and water and towel dried For the most part patient tolerated well documented in this encounter Plan of Treatment Upcoming Encounters Date Type Department Care Team (Latest Contact Info) Description 05/06/2024 11:00 AM EDT Office Visit Wound Care, [facility] [address] [place] [address] Yuriy Hilario MD 27 [facility] [place] [address] 05/14/2024 1:40 PM EDT Office Visit [place] [address] [address] [place] [address] Melissa Cruz PA-C [facility] [place] [address] 05/28/2024 9:00 AM EDT Office Visit Cardiology, [place] [address] [place] [address] [facility] [place] [address] 06/06/2024 2:00 PM EDT Appointment Cardiac Studies, [facility] 400 [facility] [place] [address] 06/16/2024 1:25 PM EST NeuroDiagnostic Study Neurophysiology, [address] [place] [address] Ramiro Grove, DO [address] [facility] [address] 10/09/2024 11:30 AM EST Hospital Encounter OR [facility], Operating Room, [facility] - 4th Floor [address] [place] [phone] Bigg Wetzel MD [address] [place] [address] 10/09/2024 11:30 AM EST - 10/09/2024 12:31 PM EST Surgery OR [facility], Operating Room, [facility] - 4th Floor [address] [place] [address] Bigg Wetzel MD [address] [place] [address] COLONOSCOPY FLEXIBLE PROXIMAL DIAGNOSTIC Scheduled Procedures Name [...] 01/10/2021, 10/05, 02/10/2009 COVID-19 Vaccine (1 - 2024-25 season) 2024 DTap/Tdap Vaccines (2 - Td [...] this encounter Medical Devices Implanted Type Area Atomic Physics Teacher Device Identifier Shelf Expiration Date Model / Serial / Lot Device Perm Cntrl [id number] - [id number] Implanted:Qty: 2 on 09/27/2015 by Sharda Ruiz, Corey Rucker MD at OR [facility] Uterus [employer] 05/03/2017 [id number] / / [id number] documented as of this encounter Visit Diagnoses [...] Power of Attor benoit? No Care Teams Pole Tester Relationship Specialty Start Date End Date Melissa Cruz PA-C [address] [facility] [address] [place] [address] PCP - General Physician Hogshead Builder 06/02/21 documented as of this encounter
--- OUTSIDE RECORDS SUMMARY | 2024-08-09 23:54 | External Medical Summary | Summary of Care ---
Author Name Unknown Organization [facility] Address [address] [place] [address] Phone [phone] Care Team Providers Care Sales Management Intern Name Role Phone CarylTy mansfieldanthony AGUILAC Primary Care Provider +1- [phone] Reason for Visit * Reason Comments Follow Up B/LLE Patient states wrap fell off this morningPresents with no dressing/no wrapHas not tried vinegar solution sprayAlso states the Miconazole powder made her itch Encounter Details Date Type Department Care Team (Late st Contact Info) Description 04/28/2024 10:00 AM EDT Office Visit Wound Care, [facility] [address] [place], [place] [id number] Yuriy Hilario MD [address] [place] [address] Multiple open wounds of lower leg, unspecified laterality, subsequent encounter*; Lymphedema Allergies Active Allergy Reactions Criticality Noted Date Comments Aspirin 01/27/2014 Increased bleeding documented as of this encounter (statuses as of 04/28/2024) Medications Medication Sig Dispensed Refills Start Date [...] 12/03/2023 Active Pregabalin 150 MG Oral Capsule (Lyrica)Indications:N europathy Take 1 Capsule by mouth in the [...] for 2 days 30 Tablet 03/05/2024 Active Diclofenac Sodium 1 % External Gel [...] DAY 90 Tablet 1 03/17/2024 Active Nystatin 211305 UNIT/GM External Powder (Nystop) Apply topically to [...] as of this encounter (statuses as of 04/28/2024) Active Problems Problem Noted Date Diagnosed Date [...] as of this encounter (statuses as of 04/28/2024) Resolved Problems Problem Noted Date Diagnosed Date [...] as of this encounter (statuses as of 04/28/2024) Immunizations Name Administration Dates Next Due Pneumococcal Conjugate Vacci ne, 20-valent ([id number]) 12/04/2022 Pneumococcal Polysaccharide PPV23 (Pneumovax) 05/06/2011 Seasonal [...] or greater, please contact the [facility]. Please check your toes frequently. If they become blue, purple, pale, cool, numb, and/or tingling elevate your leg higher than your heart for one hour. If you have no relief of the symptoms, cut the entire wrap off and call the [facility], . Keep the wrap dry. If the wrap slides down or bunches at the ankle, call [facility]. Elevate legs above heart for 30 minutes [...] documented in this encounter Nursing Notes * Vead Jacobson CMA - 04/28/2024 12:30 PM EDT Treatment done as ordered by Dr. Hilario Vaseline/triamcinolone applied to folds in thigh and proximal lower leg bilaterally. Buttressed with rolled Kerlix packed loosely to keep skin edges. Unna boots applied B/LLE. Tubi Airline Operations Agent - Size K applied to B/LLE to help keep buttressed rolled kerlix in place. Socks and shoes applied. Compression education reviewed with patient and she voiced her understanding Compression Therapy Education: Any questions, redness or swelling around the wound and development of a temperature of 101F or greater, please contact the [facility]. Please check your toes frequently. If they become blue, purple, pale, cool, numb, and/or tingling elevate your leg higher than your heart for one hour. If you have no relief of the symptoms, cut the entire wrap off and call the [facility], . Keep the wrap dry. If the wrap slides down or bunches at the ankle, call [facility]. Elevate legs above heart for 30 minutes [...] Department Care Team (Latest Contact Info) Description 05/01/2024 2:00 PM EDT Nurse Only Wound Care, [address] [place] [address] [facility], Nurse Wound Care [address] [place], [place] [address] [address] 05/06/2024 11:00 AM EDT Office Visit Wound Care, [address] [place] [address] Yuriy Hilario MD [address] [place], [place] [address] [address] 05/14/2024 1:40 PM EDT Office Visit [place] [address] [place] [address] Melissa Cruz PA-C [facility] [place] [address] 05/28/2024 9:00 AM EDT Office [facility], [place] [facility] [place] [address] Anna [facility]ames MD [facility] [place] [address] 06/06/2024 2:00 PM EDT Appointment Cardiac Studies, [facility] [address] [facility] [place] [address] 06/16/2024 1:25 PM EST NeuroDiagnostic Study Neurophysiology, [address] [place] [address] Ramiro Grove, DO [address] [facility], [place] [address] 10/09/2024 11:30 AM EST Hospital Encounter OR [facility], Operating Room, [facility] - 4th Floor [address] [place] [address] Bigg Wetzel MD [address] [place] [address] 10/09/2024 11:30 AM EST - 10/09/2024 12:31 PM EST Surgery OR [facility], Operating Room, [facility] - 4th Floor [address] [place] [address] Bigg Wetzel MD [address] [place] [address] COLONOSCOPY FLEXIBLE PROXIMAL DIAGNOSTIC Scheduled Procedures Name Priority Associated Diagnoses Date/Ti or COLONOSCOPY FLEXIBLE PROXIMAL DIAGNOSTIC Screening for colon [...] this encounter Medical Devices Implanted Type Area Well Drill Operator Cable Tool Device Identifier Shelf Expiration Date Model / Serial / Lot Device Perm Cntrl [id number] - [id number] Implanted:Qty: 2 on 09/27/2015 by Sharda Ruiz, Corey Rucker MD at OR [facility] Uterus [employer] 05/03/2017 [id number] / / [id number] documented as of this encounter Visit Diagnoses [...] Power of Attor benoit? No Care Teams Sales Management Intern Relationship Specialty Start Date End Date Melissa Cruz PA-C [address] [place] [address] [place] [address] PCP - General Physician Conical Mixer 06/02/21 documented as of this encounter
--- OUTSIDE RECORDS SUMMARY | 2024-08-09 23:54 | External Medical Summary | Summary of Care ---
Author Name Unknown Organization [facility] Address [address] [facility] [address] Phone [phone] Care Team Providers Care Steel Construction Worker Name Role Phone Anthony Melissa Downing PA-C Primary Care Provider +1- [phone] Encounter Details Date Type Department Care Team (Late st Contact Info) Description 04/24/2024 Orders Only PATIENT PORTAL DO NOT DELETE THIS DEPT USED BY [place] [id number] Allergies Active Allergy Reactions Criticality Noted Date [...] DAY 90 Tablet 1 03/17/2024 Active Nystatin 824568 UNIT/GM External Powder (Nystop) Apply topically to [...] Vitamin D3 50 MCG (1999 UT) Oral CapsuleIndications:V itamin D deficiency TAKE [...] Next Due Pneumococcal Conjugate Vacci ne, 20-valent ([id number]) 12/04/2022 Pneumococcal Polysaccharide PPV23 (Pneumovax) 05/06/2011 Seasonal [...] on file documented as of this encounter Plan of Treatment Upcoming Encounters Date Type Department Care Team (Latest Contact Info) Description 04/24/2024 11:30 AM EDT Nurse Only Wound Care, [address] [place] [address] [facility], Nurse Wound Care [address] [place], [place] [address] [address] 04/28/2024 10:00 AM EDT Office Visit Wound Care, [address] [place] [address] Yuriy Hilario MD [address] [place] [address] [place] [address] 05/14/2024 1:40 PM EDT Office Visit [place] [address] [facility] [place] [address] Melissa Cruz PA-C [address] [place] [address] [address] [place] [address] 05/28/2024 9:00 AM EDT Office Visit Cardiology, [address] [place] [address] Anna Adames MD 400 [facility] [place] [address] 06/06/2024 2:00 PM EDT Appointment Cardiac Studies, [facility] [address] [facility] [place] [address] 06/16/2024 1:25 PM EST NeuroDiagnostic Study Neurophysiology, [address] [address] Ramiro Grove, DO [address] [facility], [place] [address] 10/09/2024 11:30 AM EST Hospital Encounter OR [facility], Operating Room, [facility] - 4th Floor [address] [place] [address] Bigg Wetzel MD [address] [place] [address] 10/09/2024 11:30 AM EST - 10/09/2024 12:31 PM EST Surgery OR [facility], Operating Room, [facility] Floor [address] [place] [address] Bigg Wetzel MD [address] [place] [address] COLONOSCOPY FLEXIBLE PROXIMAL DIAGNOSTIC Scheduled Procedures Name Priority Associated Diagnoses Date/Ti il COLONOSCOPY FLEXIBLE PROXIMAL DIAGNOSTIC Screening for colon [...] this encounter Medical Devices Implanted Type Area Shaper Set Up Operator Device Identifier Shelf Expiration Date Model / Serial / Lot Device Perm Cntrl [id number] - [id number] Implanted:Qty: 2 on 09/27/2015 by Sharda Ruiz, Corey Rucker MD at OR [facility] Uterus [employer] 05/03/2017 [id number] / / [id number] documented as of this encounter Advance Directives [...] Power of Attor benoit? No Care Teams Steel Construction Worker Relationship Specialty Start Date End Date Melissa Cruz PA-C [address] [facility] [address] [place] [address] PCP - General Physician Nuclear Powerplant Mechanic 06/02/21 documented as of this encounter
--- OUTSIDE RECORDS SUMMARY | 2024-08-09 23:54 | External Medical Summary | Summary of Care ---
Author Name Unknown Organization [facility] Address [address] [place] [address] Phone [phone] Care Team Providers Care Heavy Forging Machine Operator Name Role Phone Melissa Cruz PA-C Primary Care Provider +1- [phone] Reason for Visit * Reason Comments eRx-Medication Refill Encounter Details Date Type Department Care Team (Late st Contact Info) Description 04/22/2024 Refill [place] [address] [place] [address] Melissa Cruz PA-C [address] [facility] [address] [place] [address] Edema, unspecified type Allergies Active Allergy Reactions Criticality Noted Date Comments Aspirin 01/27/2014 Increased bleeding documented as of this encounter (statuses as of 04/23/2024) Medications Medication Sig Dispensed Refills Start Date [...] WITH FOOD.. 90 Tablet 5 4 Active Pregabalin 150 MG Oral Capsule (Lyrica)Indications :Neuropathy Take 1 Capsule by mouth in the morning and 1 Capsule at noon and 1 Capsule in the evening and 1 Capsule before bedtime. 120 Capsule 1 4 Active Silver sulfADIAZINE 1 % External Cream (Silvadene) Apply to open wounds daily. 400 g 1 4 Active predniSONE 10 MG Oral Tablet (Deltasone) Take 5 tabs for 2 days, 4 tabs for 2 days, 3 tabs for 2 days, 2 tabs for 2 days 1 tab for 2 days 30 Tablet 4 Active Additional Information Patient not taking.Reported on [...] DAY 90 Tablet 1 4 Active Nystatin 221625 UNIT/GM External Powder (Nystop) Apply topically to affected area 3 times a day. Apply to skin folds of both lower legs at time of dressing change or daily. 60 g 3 4 Active Potassium Chloride ER 10 MEQ Oral Tablet Extended ReleaseIndications: Edema, unspecified type TAKE 1 TABLET BY MOUTH EVERY DAY IN THE MORNING 90 Tablet 1 4 Active Potassium Chloride ER 10 MEQ Oral Tablet Extended ReleaseIndications: Edema, unspecified type Take 1 Tablet by mouth in the morning. 90 Tablet 1 4 04/23/20 24 Discontinued Vitamin D3 50 MCG (1999 UT) Oral CapsuleIndications: Vitamin D deficiency TAKE 1 CAPSULE BY MOUTH EVERY DAY IN THE MORNING 90 Capsule 4 04/23/20 24 Discontinued documented as of this encounter (statuses as of 04/23/2024) Active Problems Problem Noted Date Diagnosed Date [...] as of this encounter (statuses as of 04/23/2024) Resolved Problems Problem Noted Date Diagnosed Date [...] as of this encounter (statuses as of 04/23/2024) Immunizations Name Administration Dates Next Due Pneumococcal Conjugate Vacci ne, 20-valent ([id number]) 12/04/2022 Pneumococcal Polysaccharide PPV23 (Pneumovax) 05/06/2011 Seasonal Influenza, PF, 6 M & above, IM , (FluLaval or Fluzone) 06/25/2023,06/05/2022,06/02/2021,05/22,05/06/2018,04/27/2017 Seasonal Influenza, Quadriva lent, No Preserve, IM 05/30/2016 Seasonal Influenza, Trivalen t, (IIV3), with Preserv, [...] Telephone Encounter - Melissa Cruz PA-C - 04/23/2024 1:57 PM EDTSigned Prescriptions: Disp Refills Potassium Chloride ER 10 MEQ Oral Tablet E*90 Tab*1 Sig: TAKE 1 TABLET BY MOUTH EVERY DAY IN THE MORNING Authorizing Provider: MELISSA CRUZ * Telephone Encounter - Lucie Mccullough [facility] - 04/23/2024 11:18 AM EDT Pending Prescriptions: Disp Refills Potassium Chloride ER 10 MEQ Oral Tablet E*90 Tab*1 Sig: TAKE 1 TABLET BY MOUTH EVERY DAY IN THE MORNING * Telephone Encounter - Lucie Mccullough RP - 04/23/2024 11:17 AM EDT Last K was low in hospital in March. Level has not been rechecked. POTASSIUM - [facility] Value Ref Range Status 03/11/2024 3.3 (L) 3.5 - 5.1 mmol/L Final documented in this encounter Plan of Treatment Upcoming Encounters Date Type Department Care Team (Latest Contact Info) Description 04/24/2024 11:30 AM EDT Nurse Only Wound Care, [address] [address] [facility], Nurse Wound Care [address] [place] [address] 04/28/2024 10:00 AM EDT Office Visit Wound Care, [address] [address] Yuriy Hilario MD [facility] [place] [address] 05/14/2024 1:40 PM EDT Office Visit [place] [address] [facility] [address] Melissa Cruz PA-C [address] [place] [address] 05/28/2024 9:00 AM EDT Office Visit Cardiology, [place] [address] [place] [address] Anna Adames MD [address] [facility] [place] [address] 06/06/2024 2:00 PM EDT Appointment Cardiac Studies, [facility] [address] [place] [address] 06/16/2024 1:25 PM EST NeuroDiagnostic Study Neurophysiology, [address] [address] [place], 200 [facility], [place] [address] 10/09/2024 11:30 AM EST Hospital Encounter OR [facility], Operating Room, [facility] - 4th Floor [address] [place] [address] [place] [address] Bigg Wetzel MD [address] [place] [address] 10/09/2024 11:30 AM EST - 10/09/2024 12:31 PM EST Surgery OR [facility], Operating Room, [facility] - 4th Floor [address] [place] [address] Bigg Wetzel MD [address] [place] [address] COLONOSCOPY FLEXIBLE PROXIMAL DIAGNOSTIC Scheduled Procedures Name [...] this encounter Medical Devices Implanted Type Area Telegraph Editor Device Identifier Shelf Expiration Date Model / Serial / Lot Device Perm Cntrl [id number] - [id number] Implanted:Qty: 2 on 09/27/2015 by Sharda Ruiz, Corey Rucker MD at OR [facility] Uterus [employer] 05/03/2017 [id number] / / [id number] documented as of this encounter Visit Diagnoses Diagnosis Edema, unspecified type Screening for colon cancer Special screening for [...] Power of Attor benoit? No Care Teams Heavy Forging Machine Operator Relationship Specialty Start Date End Date Melissa Cruz PA-C [address] [facility] [address] [place] [address] PCP - General Physician Octave Board Assembler 06/02/21 documented as of this encounter
--- OUTSIDE RECORDS SUMMARY | 2024-08-09 23:54 | External Medical Summary | Summary of Care ---
Author Name Unknown Organization [facility] Address [address] [place] [address] Phone [phone] Care Team Providers Care Citrus Fruit Packer Name Role Phone Melissa Cruz PA-C Primary Care Provider +1- [phone] Reason for Referral * Evaluate & Treat - Unlimited Visits (Within 10 days (routine)) - Pending Review Specialty Diagnoses / Procedures Referred By Contact Referred To Contact GI NUTRITION/IM / Gastroenterology Diagnoses Class 3 severe obesity due to excess calories with serious comorbidity and body mass index (BMI) greater than or equal to 70 in adult ([facility]) Melissa Cruz PA-C [address] [address] Referral ID Status Reason Start Date Expiration Date Visits Requested Visits Authorized [id number] Pending Review Specialty Services Required 04/23/[phone] Question Answer Referral Priority Within 10 days (routine) Where should this appointment be scheduled? [facility] For what condition is the patient being seen? Obesity Comments THE PATIENT WILL NOT BE PRESCRIBED GLP-1 MEDICATIONS UNLESS: *Documentation of an unsuccessful trial of losing at least 5% of weight loss *Documentation the patient has had tried and failed two [2] non-GLP1 agonists (Phentermine and Wellbutrin/ Naltrexone) *Documentation of two [2] or more appointments discussing weight loss and lifestyle changes *Documentation of a blood pressure and weight within the EMR before initiation of the GLP-1 or non-GLP-1 medications REFERRING PROVIDER MUST ACKNOWLEDGE ALL OF THE CONDITIONS ABOVE ARE MET AND HAVE A BMI >35. IF THESE CONDITIONS ARE NOT MET THE PATIENT WILL NOT BE PRESCRIBED GLP- 1 PRESCRIPTIONS. Reason for Visit * Reason Onset Date Comments Return Visit DME orders Medication Administration 04/23/2024 Flu an d/or Pneumo Inj Encounter Details Date Type Department Care Team (Late st Contact Info) Description 04/23/2024 11:20 AM EDT Office Visit [address] [place] [address] Melissa Cruz PA-C [address] [place] [address] Chronic left-sided low back pain with left-sided sciatica*; Screening for cervical cancer; Need for prophylactic vaccination and inoculation against influenza; Class 3 severe obesity due to excess calories with serious comorbidity and body mass index (BMI) greater than or equal to 70 in adult (HCC); Lumbar radiculopathy; Ambulatory dysfunction Allergies Active Allergy Reactions Criticality Noted Date [...] the morning. 90 Tablet 2 07/26/2023 Active Potassium Chloride ER 10 MEQ Oral Tablet Extended ReleaseIndications:E jayson, unspecified type Take 1 Tablet by mouth in the morning. 90 Tablet 1 11/01/2023 Active Montelukast Sodium 10 MG Oral Tablet [...] before bedtime. 120 Capsule 1 01/02/2024 Active Vitamin D3 50 MCG (2000 UT) Oral CapsuleIndications:V itamin D deficiency TAKE 1 CAPSULE BY MOUTH EVERY DAY IN THE MORNING 90 Capsule 02/09/2024 Active Silver sulfADIAZINE 1 % External Cream [...] DAY 90 Tablet 1 03/17/2024 Active Nystatin 045543 UNIT/GM External Powder (Nystop) Apply topically to affected area 3 times a day. Apply to skin folds of both lower legs at time of dressing change or daily. 60 g 3 04/16/2024 Active documented as of this encounter (statuses [...] Next Due Pneumococcal Conjugate Vacci ne, 20-valent ([id number]) 12/04/2022 Pneumococcal Polysaccharide PPV23 (Pneumovax) 05/06/2011 Seasonal [...] Sign Reading Time Taken Comments Blood Pressure 132/78 04/23/2024 11:13 AM EDT Pulse 81 04/23/2024 11:13 AM EDT Temperature 36 C (96.8 F) 04/23/2024 11: 13 AM EDT Respiratory Rate 22 04/23/2024 11:1 3 AM EDT Oxygen Saturation 98% 04/23/2024 11: 13 AM EDT Inhaled Oxygen Concentration - - Weight 171.4 kg (377 lb 14.4 oz) 2023 11:13 AM EDT Height 151.8 cm (4' 11.75") 04/23/2024 11:13 AM EDT Body Mass Index 74.42 04/23/2024 11:13 AM EDT documented in this encounter Progress Notes * Melissa Cruz PA-C - 04/23/2024 11:34 AM EDT Subjective: Mica Jimenez is a 49 year old female. Nursing Notes: Christina Cuadra LPN 04/23/24 1121 Signed Chief Complaint Patient presents with Return Visit DME orders Pt wants to discuss getting a ramp for into the home. Pt having difficulty going up and down steps,possible a walker with wheels. Christina Cuadra LPN HPI: Patient presents for follow up. Continues to have issues with chronic back pain, which is worse on the L. Little strength in the left leg and requires assistance with transferring. Can only ambulate using walker as there's little stability on her left side. Walks 5-10 minutes while using a walker, but needs to sit. Stairs are worse than level surfaces. Using wheelchair at times as well. Needs ramp for home. Also having difficulty standing for longer than 5-10 minutes at a time, which is making showering difficult. Has a shower chair, but shower is small so the chair doesn't sit right. Also has a hard time getting into the shower. Also needs referral to Weight Management. PMH: Patient Active Problem List Diagnosis Calculus of kidney Esophageal reflux Lumbago Right knee DJD Asthma, mild persistent Recurrent major depressive disorder, in partial remission ([facility]) JORGE A (obstructive sleep apnea) Lymphedema LYNSEY (generalized anxiety disorder) Bipolar I disorder, current or most recent episode depressed, with psychotic features ([facility]) PTSD (post-traumatic stress disorder) Class 3 severe obesity due to excess calories with serious comorbidity and body mass index (BMI) greater than or equal to 70 in adult ([facility]) Neuropathy Current Outpatient Medications Medication Sig Dispense Refill traZODone (DESYREL) 50 MG Tablet Take 1 Tab by mouth at bedtime as needed, may repeat once for Sleep. 30 Tab 0 clonazePAM 1 MG Oral Tablet (KlonoPIN) Albuterol Sulfate HFA 108 (90 Base) MCG/ACT Inhalation Aerosol Solution 2 puffs every 4 hours as needed for shortness of breath/cough 18 g 2 ARIPiprazole 15 MG Oral Tablet (Abilify) TAKE 1 TABLET BY MOUTH EVERYDAY AT BEDTIME lamoTRIgine 100 MG Oral Tablet (LaMICtal) buPROPion HCl ER (XL) 300 MG Oral Tablet Extended Release 24 Hour (Wellbutrin XL) TAKE 1 TABLET BY MOUTH EVERY DAY IN THE MORNING Fluticasone Propionate 50 MCG/ACT Nasal Suspension (Flonase) SPRAY 2 SPRAYS INTO EACH NOSTRIL IN THE MORNING 16 mL 0 Clotrimazole-Betamethasone 1-0.05 % External Cream Apply topically to affected area 2 times a day. Apply to lower legs once daily at time of dressing change. Avoid applying to deep wounds. 45 g 3 One-A-Day Womens 50 Plus Oral Tablet Take by mouth. Furosemide 40 MG Oral Tablet (Lasix) Take 1 Tablet by mouth in the morning. 90 Tablet 2 Potassium Chloride ER 10 MEQ Oral Tablet Extended Release Take 1 Tablet by mouth in the morning. 90Tablet 1 Montelukast Sodium 10 MG Oral Tablet (Singulair) Take 1 Tablet by mouth at bedtime. 30 Tablet 11 Omeprazole 20 MG Oral Capsule Delayed Release (PriLOSEC) TAKE 1 CAPSULE BY MOUTH EVERY DAY 90 Capsule 3 Diclofenac Sodium 75 MG Oral Tablet Delayed Release (Voltaren) TAKE BY MOUTH 1 TABLET IN THE MORNING AND 1 TABLET AT NOON AND 1 TABLET BEFORE BEDTIME. WITH FOOD.. 90 Tablet 5 Pregabalin 150 MG Oral Capsule (Lyrica) Take 1 Capsule by mouth in the morning and 1 Capsule at noon and 1 Capsule in the evening and 1 Capsule before bedtime. 120 Capsule 1 Vitamin D3 50 MCG (2000 UT) Oral Capsule TAKE 1 CAPSULE BY MOUTH EVERY DAY IN THE MORNING 90 Capsule 0 Silver sulfADIAZINE 1 % External Cream (Silvadene) Apply to open wounds daily. 400 g 1 predniSONE 10 MG Oral Tablet (Deltasone) Take 5 tabs for 2 days, 4 tabs for 2 days, 3 tabs for 2 days, 2 tabs for 2 days 1 tab for 2 days (Patient not taking: Reported on 04/21/2024) 30 Tablet 0 Diclofenac Sodium 1 % External Gel (Voltaren) Apply topically to affected area 4 times a day. 350 g1 Cyclobenzaprine HCl 10 MG Oral Tablet (Flexeril) Take 1 Tablet by mouth 3 times a day as needed forMuscle spasms. 42 Tablet 0 Cetirizine HCl 10 MG Oral Tablet (ZyrTEC) TAKE 1 TABLET BY MOUTH EVERY DAY 90 Tablet 1 Nystatin 088564 UNIT/GM External Powder (Nystop) Apply topically to affected area 3 times a day. Apply to skin folds of both lower legs at time of dressing change or daily. 60 g 3 No current facility-administered medications for this visit. Past Medical History: Diagnosis Date Anemia Asthma, [...] by Corey Robin Jr., MD at OR [facility] HYSTEROSCOPY;ENDOMETRIAL ABLAT N/A 09/27/2015 HYSTEROSCOPY ENDOMETRIAL ABLATION performed by Corey Robin Jr., MD at OR [facility] HYSTEROSCOPY;ENDOMETRIAL ABLAT N/A 06/11/2017 HYSTEROSCOPY ENDOMETRIAL ABLATION performed by Corey Robin Jr., MD at OR [facility] REMOVAL OF KIDNEY STONE, OVER 2CM 1996 REMOVE GALLBLADDER 1997 Review of patient's allergies indicates: Allergen Reactions Aspirin Increased bleeding Family History Problem Relation Name Age of Onset Heart Disorder Mother CAD Lung Disorder Mother COPD - former smoker Cancer Mother cervical Lung Disorder Father Emphysema - age 65 - smoker Mental Disorder Brother depression Family Status Relation Status Age Mother CAD, COPD - former smoker Father 65 emphysema - smoker Brother Alive Brother Alive Brother Alive Social History Tobacco Use Smoking status: Former Smoker Packs/day: 1.00 Years: 5.00 Pack years: 5.00 Types: Cigarettes Last attempt to quit: 06/06/2012 Years since quittin.9 Smokeless tobacco: Never Used Substance Use Topics Alcohol use: Yes Comment: rare Review of Systems: All reviewed and negative unless mentioned in HPI. Objective: BP 132/78 | Pulse 81 | Temp 36 C (96.8 F) (Temporal Artery) | Resp 22 | Ht 1.518 m (4' 11.75") | Wt (!) 171.4 kg (377 lb 14.4 oz) | SpO2 98% | BMI 74.42 kg/m | BSA 2.69 m Physical Exam: General: alert, no distress, obese Neck: supple, no adenopathy, no bruits, thyroid normal size, non-tender, without nodularity Heart: regular rate & rhythm, no murmurs and no gallops Lungs: clear to auscultation Pulses: radial=2/4, posterior tibial=2/4 Abdomen: abdomen soft, non-tender, normal bowel sounds Back: back symmetric, no curvature, Some limitation of flexion, Tender paralumbar muscles bilaterally, unable to complete SLR Gait: using wheelchair for ambulation Extremities: bilateral LE lymphedema, legs wrapped Skin: skin color, texture, turgor are normal ASSESSMENT/PLAN: Chronic left-sided low back pain with left-sided sciatica (Primary) Lumbar radiculopathy Ambulatory dysfunction Class 3 severe obesity due to excess calories with serious comorbidity and body mass index (BMI) greater than or equal to 70 in adult (HCC) - DURABLE MEDICAL EQUIPMENT - RAMP - DURABLE MEDICAL EQUIPMENT - ROLLATOR WALKER WITH SEAT - DURABLE MEDICAL EQUIPMENT - HANDICAP SHOWER - GI NUTRITION REFERRAL OP Need for prophylactic vaccination and inoculation against influenza - INFLUENZA VAC, TRIVALENT, (IIV3), PF, 0.5 ML (FLUZONE) Follow Up: Return as scheduled. Melissa Cruz PA-C * Christina Cuadra LPN - 04/23/2024 11:16 AM EDT Patient has been verbally educated on the need or importance of Cervical Cancer Screening. Patient does not want PAP today. Patient will schedule a future appointment in our office with Coreen Cruz PA-C. Follow up/Check out notes completed for front office to schedule PAP during check out. PRE - ADMINISTRATION DOCUMENTATION Are you experiencing any cold symptoms or fever? No Have you had Guillain-Mojave Syndrome (an illness that causes paralysis) within the last 6 weeks? No Have you had the flu shot in the past? YES Have you ever had a reaction to the flu shot? No Christina Cuadra LPN, 04/23/2024 11:17 AM Immunization Administration Documentation Time Out Procedure Performed: Yes Patient Identified (Ask Name/Date of ): Yes Does the patient have a fever greater than 101 degrees today? No Patient allergic to latex? No VFC Stock: No Immunization(s) verified: Yes, Immunization Name: Flu, VIS Sheet(s) given: Yes Verified Side and Site: Yes Verified Shot(s) with Parent(s)/Patient: Yes Patient has been verbally educated on the need or importance of Colon Cancer Screening and has declined topic(s). Christina Cuadra LPN documented in this encounter Nursing Notes * Christina Cuadra LPN - 04/23/2024 11:15 AM EDT Chief Complaint Patient presents with Return Visit DME orders Pt wants to discuss getting a ramp for into the home. Pt having difficulty going up and down steps,possible a walker with wheels. Christina Cuadra LPN documented in this encounter Plan of Treatment Upcoming Encounters Date Type Department Care Team (Latest Contact Info) Description 04/24/2024 11:30 AM EDT Nurse Only Wound Care, [address] [address] [facility], Nurse Wound Care [address] [place], [place] [address] [address] 04/28/2024 10:00 AM EDT Office Visit Wound Care, [address] [place] [address] Yuriy Hilario [facility] [address] 05/14/2024 1:40 PM EDT Office Visit [place] [address] [address] [place] [address] Melissa Cruz PA-C [facility] [address] [place] [address] 05/28/2024 9:00 AM EDT Office Visit Cardiology, [address] [place] [address] Anna Adames MD [address] [place], [place] [address] [address] 06/06/2024 2:00 PM EDT Appointment Cardiac Studies, [address] [place] [address] 06/16/2024 1:25 PM EST NeuroDiagnostic Study Neurophysiology, [address] [place] [address] [place], DO [address] [address] 10/09/2024 11:30 AM EST Hospital Encounter [facility], Operating Room, [facility] - 4th Floor [address] [facility] [address] Bigg Wetzel MD [address] [place] [address] 10/09/2024 11:30 AM EST - 10/09/2024 12:31 PM EST Surgery OR [facility], Operating Room, [facility] - 4th Floor [address] [facility] [address] Bigg Wetzel MD [address] [place] [address] COLONOSCOPY FLEXIBLE PROXIMAL DIAGNOSTIC Scheduled Procedures Name Priority Associated Diagnoses Date/Ti me COLONOSCOPY FLEXIBLE PROXIMAL DIAGNOSTIC Screening for colon cancer 10/09/2024 11:30 AM EST Scheduled Referrals Name Type Priority Associated Diagnoses Orde r Schedule GI NUTRITION REFERRAL OP Referral Within 10 days (routine) Class 3 severe obesity due to excess calories with serious comorbidity and body mass index (BMI) greater than or equal to 70 in adult (HCC) Ordered: 04/23/2024 Health Maintenance Due Date Last Done Comments [...] this encounter Medical Devices Implanted Type Area Contract Sheltered Workshop Supervisor Device Identifier Shelf Expiration Date Model / Serial / Lot Device Perm Cntrl [id number] - [id number] Implanted:Qty: 2 on 09/27/2015 by Sharda Ruiz, Corey Rucker MD at OR [facility] Uterus [employer] 05/03/2017 [id number] / / [id number] documented as of this encounter Visit Diagnoses Diagnosis Chronic left-sided low back pain with left-sided sciatica- Primary Screening for cervical cancer Screening for malignant neoplasm of the cervix Need for prophylactic vaccination and inoculation against influenza Class 3 severe obesity due to excess calories with serious comorbidity and body mass index (BMI) greater than or equal to 70 in adult (HCC) Lumbar radiculopathy Thoracic or lumbosacral neuritis or radiculitis, unspecified Ambulatory dysfunction Screening for colon cancer Special screening for [...] Power of Attor benoit? No Care Teams Citrus Fruit Packer Relationship Specialty Start Date End Date Melissa Cruz PA-C [address] [place] [id number] [place] [address] PCP - General Physician Tax Specialist 06/02/21 documented as of this encounter
--- OUTSIDE RECORDS SUMMARY | 2024-08-09 23:54 | External Medical Summary | Summary of Care ---
Author Name Unknown Organization [facility] Address [address] [place] [address] Phone [phone] Care Team Providers Care Brand Sales Consultant Name Role Phone CarylTy mansfieldanthony AGUILAC Primary Care Provider +1- [phone] Reason for Visit * Reason Comments Follow Up B/LLE Patient states wrap fell off this morningPresents with no dressing/no wrapHas not tried vinegar solution sprayAlso states the Miconazole powder made her itch Encounter Details Date Type Department Care Team (Late st Contact Info) Description 04/28/2024 10:00 AM EDT Office Visit Wound Care, [facility] [address] [place], [place] [id number] Yuriy Hilario MD 27 [facility] [place] [address] Multiple open wounds of lower leg, unspecified [...] DAY 90 Tablet 1 03/17/2024 Active Nystatin 097135 UNIT/GM External Powder (Nystop) Apply topically to [...] Next Due Pneumococcal Conjugate Vacci ne, 20-valent ([id number]) 12/04/2022 Pneumococcal Polysaccharide PPV23 (Pneumovax) 05/06/2011 Seasonal [...] or greater, please contact the [facility]. Please check your toes frequently. If they become blue, purple, pale, cool, numb, and/or tingling elevate your leg higher than your heart for one hour. If you have no relief of the symptoms, cut the entire wrap off and call the [facility], . Keep the wrap dry. If the wrap slides down or bunches at the ankle, call [facility]. Elevate legs above heart for 30 minutes [...] keep skin edges. Unna boots applied B/LLE. Socks and shoes applied. Compression education reviewed with patient and she voiced her understanding Compression Therapy Education: Any questions, redness or swelling around the wound and development of a temperature of 101F or greater, please contact the [facility]. Please check your toes frequently. If they become blue, purple, pale, cool, numb, and/or tingling elevate your leg higher than your heart for one hour. If you have no relief of the symptoms, cut the entire wrap off and call the [facility], . Keep the wrap dry. If the wrap slides down or bunches at the ankle, call [facility]. Elevate legs above heart for 30 minutes [...] 2:00 PM EDT Nurse Only Wound Care, [address] [place] [address] [facility], Nurse Wound Care [address] [place] [address] [place] [address] 05/06/2024 11:00 AM EDT Office Visit Wound Care, [address] [place] [address] Yuriy Hilario MD [address] [place] [address] [place] [address] 05/14/2024 1:40 PM EDT Office Visit [place] [address] [place] [address] Melissa Cruz PA-C [address] [place] [address] [address] [place] [address] 05/28/2024 9:00 AM EDT Office Visit Cardiology[address] [place] [address] Anna [facility]ames [facility] 400 [facility] [address] 06/06/2024 2:00 PM EDT Appointment Card[facility] Studies, [facility] 400 [facility] [place] [address] 06/16/2024 1:25 PM EST NeuroDiagnostic Study Neurophysiology, [address] [place] [address] Ramiro Grove, DO [address] [facility] [address] 10/09/2024 11:30 AM EST Hospital Encounter OR [facility], Operating Room, [facility] - 4th Floor 400 [facility] [place] [address] Bigg Wetzel MD [address] [place] [address] 10/09/2024 11:30 AM EST - 10/09/2024 12:31 PM EST Surgery OR [facility], Operating Room, [facility] - 4th Floor [address] [place] [address] [place] [address] Bigg Wetzel MD [address] [place] [address] COLONOSCOPY FLEXIBLE PROXIMAL DIAGNOSTIC Scheduled Procedures Name [...] this encounter Medical Devices Implanted Type Area Box Spring Maker Device Identifier Shelf Expiration Date Model / Serial / Lot Device Perm Cntrl [id number] - [id number] Implanted:Qty: 2 on 09/27/2015 by Sharda Ruiz, Corey Rucker MD at OR [facility] Uterus [employer] 05/03/2017 [id number] / / [id number] documented as of this encounter Visit Diagnoses [...] Power of Attor benoit? No Care Teams Brand Sales Consultant Relationship Specialty Start Date End Date Melissa Cruz PA-C 4752 [facility] [place] [address] PCP - General Physician Jet Handler 06/02/21 documented as of this encounter
--- OUTSIDE RECORDS SUMMARY | 2024-08-09 23:54 | External Medical Summary | Summary of Care ---
Author Name Unknown Organization [facility] Address [address] [place] [address] Phone [phone] Care Team Providers Care Can Filling Machine Operator Name Role Phone Melissa Cruz PA-C Primary Care Provider +1- [phone] Encounter Details Date Type Department Care Team (Latest Contact Info) Description 03/19/2024 CardioDiagnostic Study Unspecified Department Cem Calhoun MD [address] [place] [address] External EKG Review and Interp Allergies Active Allergy Reactions Criticality Noted Date Comments Aspirin 01/27/2014 Increased bleeding documented as of this encounter (statuses as of 04/25/2024) Medications Medication Sig Dispensed Refills Start Date [...] EVERY DAY 90 Tablet 1 03/17/2024 Active documented as of this encounter (statuses as of 04/25/2024) Active Problems Problem Noted Date Diagnosed Date [...] as of this encounter (statuses as of 04/25/2024) Resolved Problems Problem Noted Date Diagnosed Date [...] as of this encounter (statuses as of 04/25/2024) Immunizations Name Administration Dates Next Due Pneumococcal Conjugate Vacci ne, 20-valent ([id number]) 12/04/2022 Pneumococcal Polysaccharide PPV23 (Pneumovax) 05/06/2011 Seasonal [...] on file documented as of this encounter Procedure Notes * Anna Adames MD - 03/19/2024 12:00 AM EDTAssociated Order(s): EXTERNAL EKG 8 TO 15 DAYS REASON FOR STUDY: CONCLUSIONS: 1.Patient had a min HR of 61 bpm, max HR of 160 bpm, and avg HR of 84 bpm. Predominant underlying rhythm was Sinus Rhythm. 2.Nonsustained Supraventricular Tachycardia runs occurred, the run with the fastest interval lasting 4 beats with a max rate of 160 bpm, the longest lasting 14.5 secs with an avg rate of 102 bpm. 3.Supraventricular Tachycardia was detected within +/- 45 secondsof symptomatic patient event(s). 4.Isolated SVEs were occasional (2.0%, [address]), SVE Couplets were rare (<1.0%, 304), and SVE Triplets were rare (<1.0%, 51). Isolated VEs were rare (<1.0%), and no VE Couplets or VE Triplets were present. 5. patient reported events are associated with sinus rhythm ectopic beats and 1 episode of nonsustained supraventricular tachycardia at heart rate of 102bpm documented in this encounter Plan of Treatment Upcoming Encounters Date Type Department Care Team (Latest Contact Info) Description 04/28/2024 10:00 AM EDT Office Visit Wound Care, [address] [place] [address] Yuriy Hilario MD [address] [place] [address] 05/14/2024 1:40 PM EDT Office Visit [address] [place] [address] Melissa Cruz PA-C 4752 [facility] [address] [facility] [address] 05/28/2024 9:00 AM EDT Office Visit Cardiology, [address] [place] [address] Anna Adames MD 400 [place] [address] 06/06/2024 2:00 PM EDT Appointment Cardiac Studies, [address] [place] [address] 06/16/2024 1:25 PM EST NeuroDiagnostic Study Neurophysiology, [address] [address] Ramiro Grove, DO [address] [facility] [place] [address] 10/09/2024 11:30 AM EST Hospital Encounter OR [facility], Operating Room, [facility] - 4th Floor [address] [place] [address] [place]ARC[place]DE[place] [phone] Bigg Wetzel MD [address] [place] [address] 10/09/2024 11:30 AM EST - 10/09/2024 12:31 PM EST Surgery OR [facility], Operating Room, [facility] - 4th Floor [address] [place] [address] JENNANARBERTHS[place]DE[place] [phone] Bigg Wetzel MD [address] [place] [address] COLONOSCOPY FLEXIBLE PROXIMAL DIAGNOSTIC Scheduled Procedures Name [...] this encounter Medical Devices Implanted Type Area Roll Forming Machine Set Up Mechanic Device Identifier Shelf Expiration Date Model / Serial / Lot Device Perm Cntrl [id number] - [id number] Implanted:Qty: 2 on 09/27/2015 by Sharda Ruiz, Corey Rucker MD at OR [facility] Uter[employer] 05/03/2017 [id number] / / [id number] documented as of this encounter Procedures Procedure Name Priority Date/Time Associated Diagnosis Comments EXTERNAL EKG 8 TO 15 DAYS 03/19/2024 12:00 AM EDT documented in this encounter Results * EXTERNAL EKG 8 TO 15 DAYS (03/19/2024 12:00 AM EDT) 03/19/2024 Narrative Procedure Note Anna Adames MD - 03/19/2024 12:00 AM EDT REASON FOR STUDY: CONCLUSIONS: 1.Patient had a min HR of 61 bpm, max HR of 160 bpm, and avg HR of 84 bpm.Predominant underlying rhythm was Sinus Rhythm. 2.Nonsustained Supraventricular Tachycardia runs occurred, the run with the fastestinterval lasting 4 beats with a max rate of 160 bpm, the longest veabgki05.5 secs with an avg rate of 102 bpm. 3.Supraventricular Tachycardia wasdetected within +/- 45 seconds of symptomatic patient event(s). 4.Isolated SVEs were occasional (2.0%, [address]), SVE Couplets were rare(<1.0%, 304), and SVE Triplets were rare (<1.0%, 51). Isolated VEs wererare (<1.0%), and no VE Couplets or VE Triplets were present. 5. patient reported events are associated with sinus rhythm ectopic beatsand 1 episode of nonsustained supraventricular tachycardia at heart rateof 102bpm Cem Calhoun MD HOLTER documented in this encounter Advance Directives * [...] Power of Attor benoit? No Care Teams Can Filling Machine Operator Relationship Specialty Start Date End Date Melissa Cruz, MARIAN 4752 [facility] [place] [address] PCP - General Physician Communications Senior Associate 06/02/21 documented as of this encounter
--- OUTSIDE RECORDS SUMMARY | 2024-08-09 23:54 | External Medical Summary | Summary of Care ---
Author Name Unknown Organization [facility] Address [address] [place] [address] Phone [phone] Care Team Providers Care Plush Dresser Name Role Phone CarylTy mansfieldanthony Adam PA-C Primary Care Provider +1- [phone] Reason for Visit * Reason Comments eRx-Medication Refill Encounter Details Date Type Department Care Team (Late st Contact Info) Description 04/22/2024 Refill [place] [address] [place] [address] Ortiz Juarez MD [facility] [address] [place] [id number] Vitamin D deficiency Allergies Active Allergy Reactions [...] DAY 90 Tablet 1 4 Active Nystatin 917192 UNIT/GM External Powder (Nystop) Apply topically to [...] IN THE MORNING 90 Capsule 4 Active Vitamin D3 50 MCG (2000 [...] Next Due Pneumococcal Conjugate Vacci ne, 20-valent ([id number]) 12/04/2022 Pneumococcal Polysaccharide PPV23 (Pneumovax) 05/06/2011 Seasonal [...] Miscellaneous Notes * Telephone Encounter - Melissa Wilkins PA-C - 04/23/2024 1:57 PM EDTSigned Prescriptions: Disp Refills Vitamin D3 50 MCG (2000 UT) Oral Capsule 90 Cap*0 Sig: TAKE 1 CAPSULE BY MOUTH EVERY DAY IN THE MORNING Authorizing Provider: MELISSA WILKINS * Telephone Encounter - Lucie Mccullough [facility] - 04/23/2024 11:18 AM EDT Pending Prescriptions: Disp Refills Vitamin D3 50 MCG (2000 UT) Oral Capsule [*90 Cap*0 Sig: TAKE 1 CAPSULE BY MOUTH EVERY DAY IN THE MORNING * Telephone Encounter - Lucie Mccullough RP - 04/23/2024 11:18 AM EDT Refill pharmacists currently not authorized to approve refills for this class of medication per refill protocol. Please approve if appropriate. Thank you, Lucie Mccullough, PharmD. Clinical Pharmacist Pharmacy Refill Call Center 04/23/2024, 11:18 AM documented in this encounter Plan of Treatment Upcoming Encounters Date Type Department Care Team (Latest Contact Info) Description 04/24/2024 11:30 AM EDT Nurse Only Wound Care, [address] [address] [facility], Nurse Wound Care [address] [place] [address] 04/28/2024 10:00 AM EDT Office Visit Wound Care, [address] [address] Yuriy Hilario MD 27 [place] [address] 05/14/2024 1:40 PM EDT Office Visit [place] [address] [place] [address] Melissa Wilkins PA-C [address] [place] [address] 05/28/2024 9:00 AM EDT Office Visit Cardiology, [place] [address] [place] [address] Anna Adames MD 400 [facility] [place] [address] 06/06/2024 2:00 PM EDT Appointment Cardiac Studies, [address] [place] [address] 06/16/2024 1:25 PM EST NeuroDiagnostic Study Neurophysiology, [address] [place] [address] Ramiro Grove, 200 [facility] [address] 10/09/2024 11:30 AM EST Hospital Encounter OR [facility], Operating Room, [facility] - 4th Floor [address] [place] [address] [place] [address] Bigg Wetzel MD [address] [place] [address] 10/09/2024 11:30 AM EST - 10/09/2024 12:31 PM EST Surgery OR [facility], Operating Room, [facility] - 4th Floor [address] [place] [address] [place] [address] Bigg Wetzel MD [address] [place] [address] COLONOSCOPY FLEXIBLE PROXIMAL DIAGNOSTIC Scheduled Procedures Name [...] this encounter Medical Devices Implanted Type Area Isolation Washer Device Identifier Shelf Expiration Date Model / Serial / Lot Device Perm Cntrl [id number] - [id number] Implanted:Qty: 2 on 09/27/2015 by Sharda Ruiz, Corey Rucker MD at OR [facility] Uterus [employer] 05/03/2017 [id number] / / [id number] documented as of this encounter Visit Diagnoses [...] Power of Attor benoit? No Care Teams Plush Dresser Relationship Specialty Start Date End Date Melissa Wilkins PA-C 4752 [facility] [address] [place] [address] PCP - General Physician Corn Sheller 06/02/21 documented as of this encounter
--- OUTSIDE RECORDS SUMMARY | 2024-08-09 23:54 | External Medical Summary | Summary of Care ---
Author Name Unknown Organization [facility] Address [address] [place] [address] Phone [phone] Care Team Providers Care Lieutenant Governor Name Role Phone CarylMelissa mansfield Chang FONSECA Primary Care Provider +1- [phone] Reason for Visit * Reason Comments Wound Care B/LLE Encounter Details Date Type Department Care Team ([facility] st Contact Info) Description 05/01/2024 2:00 PM EDT Nurse Only Wound Care, [facility] [address] [place] [address] [facility], Nurse Wound Care [address] [place] [address] Wound Care (B/LLE ) Allergies Active Allergy [...] DAY 90 Tablet 1 03/17/2024 Active Nystatin 293944 UNIT/GM External Powder (Nystop) Apply topically to [...] tab for 2 days 30 Tablet 03/05/2024 Discontinue d(Medicatio n/Dose Changed) documented as of [...] Next Due Pneumococcal Conjugate Vacci ne, 20-valent ([id number]) 12/04/2022 Pneumococcal Polysaccharide PPV23 (Pneumovax) 05/06/2011 Seasonal [...] * Patient Instructions* Megha López LPN - 05/01/2024 4:00 PM EDT Compression Therapy Education: Any questions, redness or swelling around the wound and development of a temperature of 101F or greater, please contact the [facility]. Please check your toes frequently. If they become blue, purple, pale, cool, numb, and/or tingling elevate your leg higher than your heart for one hour. If you have no relief of the symptoms, cut the entire wrap off and call the [facility], . Keep the wrap dry. If the wrap slides down or bunches at the ankle, call The [facility]. Elevate legs above heart for 30 minutes 2-3 times a day. documented in this encounter Nursing Notes * Megha López LPN - 05/01/2024 3:24 PM EDT Images from the original note were not included. Mica was assisted to sit safely on exam seating from her W/C.Mica is aware to not rise unassisted for her safety. Her Unna boots have slid down to ankles / Tubi yellow pages space salesperson had slid to knees -- she did have complaint ofburning to wounds of Right medial to anterior wounds. Her wounds have drained heavy amounts in upper folds as noted with extremely foul odor. Drainage was noted on bilateral wraps and Tubi yellow pages space salesperson. Wrap and dressing removed. Very scant amount of Kerlix was removed from folds for cleansing. Woundsthen leg and foot washed with soap and water. Photos and measurements were taken Mica does state using the vinegar spray at home. Fold wounds have improved. Right most proximal lateral wound remains very tender this wound presented with granulation to edges and wound bed with well adhered slough. Wounds then leg/feet washed with soap and water. Photos and measurements , Dressings reapplied as per order. We have added ABD pads with skim coat Vaseline added to wound bed to help with tolerance of dressings. Triamcinolone / Vaseline was placed in skin folds with Kerlix to Provide Buttress dressing-- keeping skin folds open and tissue not touching. Unna Z applied to position as directed / then Tubigrip sz K to secure fold treatment - Surgilast too this time to help keep in tubi front end wheel loader operator in place if able. Review of wrap precautions reviewed while getting socks and shoes on. Assisted to exit exam seating then taken to check out. documented in this encounter Plan of Treatment Upcoming Encounters Date Type Department Care Team (Latest Contact Info) Description 05/06/2024 11:00 AM EDT Office Visit Wound Care, [address] [place] [address] Yuriy Hilario MD 27 [place] [address] 05/14/2024 1:40 PM EDT Office Visit [place] [address] [place] [address] Melissa Cruz PA-C 4752 [facility] [address] [place] [address] 05/28/2024 9:00 AM EDT Office Visit Cardiology, [address] [place] [address] Anna Adames MD 400 [place] [address] 06/06/2024 2:00 PM EDT Appointment Cardiac Studies, [address] [facility] [address] 06/16/2024 1:25 PM EST NeuroDiagnostic Study Neurophysiology, [address] [address] Ramiro Grove, DO [address] [place] [address] 10/09/2024 11:30 AM EST Hospital Encounter [place] [facility], Operating Room, [facility] - 4th Floor [address] [place] [address] [place] [phone] Bigg Wetzel MD [address] [place] [address] 10/09/2024 11:30 AM EST - 10/09/2024 12:31 PM EST Surgery OR [facility], Operating Room, [facility] - 4th Floor [address] [place] [address] [place]AN[place] [phone] Bigg Wetzel MD [address] [place] [address] COLONOSCOPY FLEXIBLE PROXIMAL DIAGNOSTIC Scheduled Procedures Name Priority Associated Diagnoses Date/Ti ma COLONOSCOPY FLEXIBLE PROXIMAL DIAGNOSTIC Screening for colon [...] this encounter Medical Devices Implanted Type Area Drill Operator Automatic Device Identifier Shelf Expiration Date Model / Serial / Lot Device Perm Cntrl [id number] - [id number] Implanted:Qty: 2 on 09/27/2015 by Sharda Ruiz, Corey Rucker MD at OR [facility] Uterus [employer] 05/03/2017 [id number] / / [id number] documented as of this encounter Visit Diagnoses [...] Power of Attor benoit? No Care Teams Lieutenant Governor Relationship Specialty Start Date End Date Melissa Cruz PA-C [address] [facility] [address] [place] [address] PCP - General Physician Serging Machine Operator Automatic 06/02/21 documented as of this encounter
--- OUTSIDE RECORDS SUMMARY | 2024-08-09 23:54 | External Medical Summary | Summary of Care ---
Author Name Unknown Organization [facility] Address [address] [place] [address] Phone [phone] Care Team Providers Care Travograph Operator Name Role Phone CarylMelissa mansfield Chang FONSECA Primary Care Provider +1- [phone] Reason for Visit * Reason Comments Follow Up B/LLE Patient states wrap fell off this morningPresents with no dressing/no wrapHas not tried vinegar solution spray Encounter Details Date Type Department Care Team (Late st Contact Info) Description 04/28/2024 10:00 AM EDT Office Visit Wound Care, [facility] 400 [place], [place] [id number] Yuriy Hilario MD 27 [place] [address] Multiple open wounds of lower leg, unspecified [...] DAY 90 Tablet 1 03/17/2024 Active Nystatin 469636 UNIT/GM External Powder (Nystop) Apply topically to [...] Date Body mass index (BMI) greate r jarred or equal to 70 in adult 05/07/2017 [...] Next Due Pneumococcal Conjugate Vacci ne, 20-valent ([id number]) 12/04/2022 Pneumococcal Polysaccharide PPV23 (Pneumovax) 05/06/2011 Seasonal [...] Notes * Veda Jacobson CMA - 04/28/2024 10:27 AM EDT Images from the original note were not included. Chief Complaint Patient presents with Follow Up B/LLE Patient states wrap fell off this morning Presents with no dressing/no wrap Has not tried vinegar solution spray Patient was instructed to not get up [...] Department Care Team (Latest Contact Info) Description 05/14/2024 1:40 PM EDT Office Visit [address] [place] [address] Melissa Cruz PA-C [address] [place] [address] [place] [address] 05/28/2024 9:00 AM EDT Office Visit Cardiology, [address] [place] [address] Anna Adames MD 400 [place] [address] 06/06/2024 2:00 PM EDT Appointment Cardiac Studies, [facility] 400 [facility] [place] [address] 06/16/2024 1:25 PM EST NeuroDiagnostic Study Neurophysiology, [address] [address] Ramiro Grove, DO [address] [place], [place] [address] 10/09/2024 11:30 AM EST Hospital Encounter [place] [facility], Operating Room, [facility] - 4th Floor [address] [place] [address] Bigg Wetzel MD [address] [place] [address] 10/09/2024 11:30 AM EST - 10/09/2024 12:31 PM EST Surgery OR [facility], Operating Room, [facility] - 4th Floor [address] [place] [address] Bigg Wetzel MD [address] [place] [address] COLONOSCOPY FLEXIBLE PROXIMAL DIAGNOSTIC Scheduled Procedures Name [...] this encounter Medical Devices Implanted Type Area Asset Protection Greeter Device Identifier Shelf Expiration Date Model / Serial / Lot Device Perm Cntrl [id number] - [id number] Implanted:Qty: 2 on 09/27/2015 by Sharda Ruiz, Corey Rucker MD at OR [facility] Uterus [employer] 05/03/2017 [id number] / / [id number] documented as of this encounter Visit Diagnoses [...] Power of Attor benoit? No Care Teams Travograph Operator Relationship Specialty Start Date End Date Melissa Cruz PA-C 4752 [facility] [address] [place] [address] PCP - General Physician Stage Setting Painter Apprentice 06/02/21 documented as of this encounter
--- OUTSIDE RECORDS SUMMARY | 2024-08-09 23:55 | External Medical Summary | Summary of Care ---
Author Name Unknown Organization [facility] Address [address] [place] [address] Phone [phone] Care Team Providers Care Cell Repairer Name Role Phone Melissa Cruz PA-C Primary Care Provider [phone]- [phone] Reason for Referral * Evaluate & Treat - Unlimited Visits (Within 30 days (routine)) - Pending Review Specialty Diagnoses / Procedures Referred By Phylicia zambrano Referred To Contact Obstetrics/Gynecology / Gynecology Obstetrics Diagnoses Encounter for gynecological examination Melissa Cruz PA-C [facility] [place] [address] Referral ID Status Reason Start Date Expiration Date Visits Requested Visits Authorized [id number] Pending Review Specialty Services Required 03/10/[phone] Question Answer Referral Priority Within 30 days (routine) What condition is the patient being seen for? Annual Annuals should only be placed with a priority of 30 days I acknowledge Where should this appointment be scheduled? John Comments BP 152/92 | Pulse 65 | Temp 36.7 C (98 F) (Temporal Artery) | Resp 25 | Ht 1.499 m (4' 11") | Wt (!) 174.7 kg (385 lb 1.6 oz) Reason for Visit * Reason Comments Follow Up Back pain, radiating to hip and groin Encounter Details Date Type Department Care Team (Late st Contact Info) Description 03/10/2024 11:40 AM EDT Office Visit [place] [address] [place] [address] Melissa Cruz PA-C [address] [facility] [address] [place] [address] Chronic left-sided low back pain with left-sided sciatica*; Lumbar radiculopathy; Hip pain, left; Encounter for gynecological examination; Ambulatory dysfunction; Class 3 severe obesity due to excess calories with serious comorbidity and body mass index (BMI) greater than or equal to 70 in adult (HCC) Allergies Active Allergy Reactions Criticality Noted Date Comments Aspirin 01/27/2014 Increased bleeding documented as of this encounter (statuses as of 04/11/2024) Medications Medication Sig Dispensed Refills Start Date [...] IN THE MORNING 16 mL 3 Active Clotrimazole-Betam ethasone 1-0.05 % External Cream Apply topically to affected area 2 times a day. Apply to lower legs once daily at time of dressing change. Avoid applying to deep wounds. 45 g 3 3 Active Nystatin 541499 UNIT/GM External Powder (Nystop) Apply topically to affected area 3 times a day. Apply to skin folds of both lower legs at time of dressing change or daily. 60 g 3 3 Active One-A-Day Womens 50 Plus Oral Tablet Take by mouth. Active Furosemide 40 MG Oral Tablet (Lasix)Indications :Lymphedema Take 1 Tablet by mouth in the morning. 90 Tablet 2 3 Active Potassium Chloride ER 10 MEQ Oral Tablet Extended ReleaseIndications :Edema, unspecified type Take 1 Tablet by mouth in the morning. 90 Tablet 1 4 Active Montelukast Sodium 10 MG Oral [...] before bedtime. 120 Capsule 1 4 Active Vitamin D3 50 MCG (2000 UT) Oral CapsuleIndications :Vitamin D deficiency TAKE 1 CAPSULE BY MOUTH EVERY DAY IN THE MORNING 90 Capsule 4 Active Silver sulfADIAZINE 1 % External Cream (Silvadene) Apply to open wounds daily. 400 g 1 4 Active predniSONE 10 MG Oral Tablet (Deltasone) Take 5 tabs for 2 days, 4 tabs for 2 days, 3 tabs for 2 days, 2 tabs for 2 days 1 tab for 2 days 30 Tablet 4 Active Diclofenac Sodium 1 % External [...] MOUTH EVERY DAY 90 Tablet 1 4 03/17/20 24 Discontinued Amoxicillin-Pot Clavulanate 875-125 MG Oral Tablet (Augmentin) Take 1 Tablet by mouth in the morning and 1 Tablet before bedtime. 20 Tablet 4 03/10/20 24 Discontinued(Med ication List Clean Up) documented as of this encounter (statuses as of 04/11/2024) Active Problems Problem Noted Date Diagnosed Date [...] as of this encounter (statuses as of 04/11/2024) Resolved Problems Problem Noted Date Diagnosed Date [...] as of this encounter (statuses as of 04/11/2024) Immunizations Name Administration Dates Next Due Pneumococcal Conjugate Vacci ne, 20-valent ([id number]) 12/04/2022 Pneumococcal Polysaccharide PPV23 (Pneumovax) 05/06/2011 Seasonal [...] Sign Reading Time Taken Comments Blood Pressure 152/92 03/10/2024 11:04 AM EDT Pulse 65 03/10/2024 11:04 AM EDT Temperature 36.7 C (98 F) 03/10/2024 11: 04 AM EDT Respiratory Rate 25 03/10/2024 11:0 4 AM EDT Oxygen Saturation 97% 03/10/2024 11: 04 AM EDT Inhaled Oxygen Concentration - - Weight 174.7 kg (385 lb 1.6 oz) 024 11:04 AM EDT Height 149.9 cm (4' 11") 03/10/2024 11: 04 AM EDT Body Mass Index 77.78 03/10/2024 11:04 AM EDT documented in this encounter Progress Notes * Melissa Cruz PA-C - 03/10/2024 11:35 AM EDT Subjective: Mica Jimenez is a 49 year old female. Nursing Notes: Christina Cuadra LPN 03/10/24 1111 Sign at exiting of workspace Chief Complaint Patient presents with Follow Up Back pain, radiating to hip and groin Patient has been verbally educated on the need or importance of Colon Cancer Screening already scheduled for 04/16/24 and has declined topic(s). Pain radiating from back to groin and R knee. Pt pain been ongoing for about 1 year especially in the knee then hip and groin region has been on going for 1 month. Pt denies any other questions or concerns at this time Christina Cuadra LPN HPI: Patient presents for acute visit. Worsening L low back pain after rolling over in bed. Prednisone helping some, but having spasms. Using wheelchair when not at home. Needs ramp for home. Also having difficulty standing for longer than 5-10 minutes at a time, which is making showering difficult. Has a shower chair, but has a hard time getting into the shower. PMH: Patient Active Problem List Diagnosis Calculus of kidney Esophageal reflux Lumbago Right knee DJD Asthma, mild persistent Recurrent major depressive disorder, in partial remission ([facility]) JORGE A (obstructive sleep apnea) Lymphedema LYNSEY (generalized anxiety disorder) Bipolar I disorder, current or most recent episode depressed, with psychotic features ([facility]) PTSD (post-traumatic stress disorder) Class 3 severe obesity due to excess calories with serious comorbidity and body mass index (BMI) greater than or equal to 70 in adult ([facility]) Neuropathy Current Outpatient Medications Medication [...] applying to deep wounds. 45 g 3 Nystatin 023432 UNIT/GM External Powder (Nystop) Apply topically to affected area 3 times a day. Apply to skin folds of both lower legs at time of dressing change or daily. 60 g 3 One-A-Day Womens 50 Plus Oral Tablet Take by mouth. Furosemide 40 MG Oral Tablet (Lasix) Take 1 Tablet by mouth in the morning. 90 Tablet 2 Cetirizine HCl 10 MG Oral Tablet (ZyrTEC) TAKE 1 TABLET BY MOUTH EVERY DAY 90 Tablet 1 Potassium Chloride ER 10 MEQ Oral Tablet [...] 1 tab for 2 days 30 Tablet 0 Diclofenac Sodium 1 % External Gel (Voltaren) Apply topically to affected area 4 times a day. 350 g1 No current facility-administered medications for this visit. [...] by Corey Robin Jr., MD at OR [facility] HYSTEROSCOPY;ENDOMETRIAL ABLAT N/A 09/27/2015 HYSTEROSCOPY ENDOMETRIAL ABLATION performed by Corey Robin Jr., MD at OR [facility] HYSTEROSCOPY;ENDOMETRIAL ABLAT N/A 06/11/2017 HYSTEROSCOPY ENDOMETRIAL ABLATION performed by Corey Robin Jr., MD at OR [facility] REMOVAL OF KIDNEY STONE, OVER 2CM 1996 [...] negative unless mentioned in HPI. Objective: BP 152/92 | Pulse 65 | Temp 36.7 C (98 F) (Temporal Artery) | Resp 25 | Ht 1.499 m (4' 11") | Wt (!) 174.7 kg (385 lb 1.6 oz) | SpO2 97% | BMI 77.78 kg/m | BSA 2.7 m Physical Exam: General: alert, no distress, [...] low back pain with left-sided sciatica (Primary) - XR L SPINE AP AND LATERAL - Cyclobenzaprine HCl 10 MG Oral Tablet (Flexeril); Take 1 Tablet by mouth 3 times a day as needed for Muscle spasms. - DURABLE MEDICAL EQUIPMENT - DURABLE MEDICAL EQUIPMENT Lumbar radiculopathy - EMG Hip pain, left - XR HIP UNILAT 2-3 VIEWS INCLUDING AP PELVIS Encounter for gynecological examination - SECURITY GUARD SUPERVISOR REFERRAL OP Ambulatory dysfunction - DURABLE MEDICAL EQUIPMENT - DURABLE MEDICAL EQUIPMENT Class 3 severe obesity due to excess calories with serious comorbidity and body mass index (BMI) greater than or equal to 70 in adult (HCC) - DURABLE MEDICAL EQUIPMENT - DURABLE MEDICAL EQUIPMENT Follow Up: Wheelchair Ramp and Handicap Shower needed as discussed above. Return if symptoms worsen or fail to improve. Follow Up: Return if symptoms worsen or fail to improve. Melissa Cruz PA-C * Christina Cuadra LPN - 03/10/2024 11:09 AM EDT Patient has been verbally educated on the need or importance of Cervical Cancer Screening. documented in this encounter Nursing Notes * Christina Cuadra LPN - 03/10/2024 11:09 AM EDT Chief Complaint Patient presents with Follow Up Back pain, radiating to hip and groin Patient has been verbally educated on the need or importance of Colon Cancer Screening already scheduled for 04/16/24 and has declined topic(s). Pain radiating from back to groin and R knee. Pt pain been ongoing for about 1 year especially in the knee then hip and groin region has been on going for 1 month. Pt denies any other questions or concerns at this time Christina Cuadra LPN documented in this encounter Plan of Treatment Upcoming Encounters Date Type Department Care Team (Latest Contact Info) Description 04/21/2024 10:40 AM EDT Office Visit Wound Care, [address] [place] [address] Yuriy Hilario MD [address] [place] [address] [place] [address] 05/14/2024 1:40 PM EDT Office Visit [place] [address] [place] [address] Melissa Cruz PA-C [address] [place] [address] [place] [address] [place] [address] 05/28/2024 9:00 AM EDT Office Visit Cardiology, [address] [place] [address] Anna Adames MD [address] [facility] [place] [address] 06/06/2024 2:00 PM EDT Appointment Card[address] Studies, [address] [address] 06/16/2024 1:25 PM EST NeuroDiagnostic Study Neurophysiology, [address] [place] [address] Ramiro Grove, DO [address] [facility] [address] 10/09/2024 11:30 AM EST Hospital Encounter OR [facility], Operating Room, [facility] Floor [address] [place] [address] [place] [address] Bigg Wetzel MD [address] [place] [address] 10/09/2024 11:30 AM EST - 10/09/2024 12:31 PM EST Surgery OR [facility], Operating Room, [facility] Floor [address] [place] [address] [place] [address] Bigg Wetzel MD [address] [place] [address] COLONOSCOPY FLEXIBLE PROXIMAL DIAGNOSTIC Scheduled Orders Name Type Priority Associated Diagnoses Orde r Schedule XR L SPINE AP AND LATERAL Medical Imaging Routine Chronic left-sided low back pain with left-sided sciatica Ordered: 03/10/2024 XR HIP UNILAT 2-3 VIEWS INCLUDING AP PELVIS Medical Imaging Routine Hip pain, left Ordered: 03/10/2024 Scheduled Procedures Name Priority Associated Diagnoses Date/Ti me COLONOSCOPY FLEXIBLE PROXIMAL DIAGNOSTIC Screening for colon cancer 10/09/2024 11:30 AM EST Scheduled Referrals Name Type Priority Associated Diagnoses Orde r Schedule SECURITY GUARD SUPERVISOR REFERRAL OP Referral Within 30 days (routine) Encounter for gynecological examination Ordered: 03/10/2024 Health Maintenance Due Date Last Done Comments Hepatitis B Vaccine (1 of 3 - 19+ 3-dose series) 01/12/1995 HPV/Co-Test 01/12/2006 Mammogram 06/06/2019 06/06/2018, 09/18/2016 Cologuard 01/12/2021 Colonoscopy 01/12/2021 12/02/2008 Colorectal Cancer Screening 01/12/2021 Fecal Occult Blood Test 01/12/2021 Sigmoidoscopy 01/12/2021 Cervical Cancer Screening 01/11/2024 Pap Smear 01/11/2024 01/10/2021, 10/05, 02/10/2009 COVID-19 Vaccine ( season) 2024 Influenza Vaccine (FLU shot) (#1) 2024 06/25/2023, 06/05/2022, 06/02/2021, Additional history exists DTap/Tdap Vaccines (2 - Td or Tdap) 01/20/2025 01/20/2015 Depression Monitoring 03/10/2025 03/10/2024 Diabetes Screening 03/11/2027 03/11/2024, 0 10/19/2023, 05/24/2023, Additional history exists Lipid Panel 05/24/2028 05/24/2023, 05/07, 08/18/2017, Additional history exists Pneumococcal Vaccine: Pediatrics (0 to 5 Years) and At-Risk Patients (6 to 64 Years) Completed 12/04/2022, 05/06/2011 HPV (Gardasil) Vaccine Aged Out No lo nger eligible based on patient's age to complete this topic MENINGOCOCCAL (MENACTRA/MENVEO) Aged Out No longer eligible based on patient's age to complete this topic documented as of this encounter Medical Devices Implanted Type Area Assistant Center Director Device Identifier Shelf Expiration Date Model / Serial / Lot Device Perm Cntrl [id number] - [id number] Implanted:Qty: 2 on 09/27/2015 by Sharda Ruiz, Corey Rucker MD at OR [facility] Uterus [employer] 05/03/2017 [id number] / [id number] documented as of this encounter Visit Diagnoses Diagnosis Chronic left-sided low back pain with left-sided sciatica- Primary Lumbar radiculopathy Thoracic or lumbosacral neuritis or radiculitis, unspecified Hip pain, left Pain in joint, pelvic region and thigh Encounter for gynecological examination Ambulatory dysfunction Class 3 severe obesity due [...] Power of Attor benoit? No Care Teams Cell Repairer Relationship Specialty Start Date End Date Melissa Cruz PA-C [address] [facility] [address] [place] [address] PCP - General Physician Hand I Blocker 06/02/21 documented as of this encounter
--- OUTSIDE RECORDS SUMMARY | 2024-08-09 23:55 | External Medical Summary | Summary of Care ---
Author Name Unknown Organization [facility] Address [address] [place] [address] Phone [phone] Care Team Providers Care Cryptozoologist Name Role Phone CarylTy mansfieldanthony Adam PA-C Primary Care Provider +1- [phone] Reason for Visit * Reason Onset Date Comments Medication Refill 04/15/2024 Encounter Details Date Type Department Care Team (Late st Contact Info) Description 04/15/2024 Refill Wound Care, [facility] [address] [place], [place] [id number] Yuriy Hilario MD [address] [place] [address] Allergies Active Allergy Reactions Criticality Noted Date Comments Aspirin 01/27/2014 Increased bleeding documented as of this encounter (statuses as of 04/16/2024) Medications Medication Sig Dispensed Refills Start Date [...] DAY 90 Tablet 1 03/17/2024 Active Nystatin 786673 UNIT/GM External Powder (Nystop) Apply topically to affected area 3 times a day. Apply to skin folds of both lower legs at time of dressing change or daily. 60 g 3 04/16/2024 Active Nystatin 644360 UNIT/GM External Powder (Nystop) Apply topically to affected area 3 times a day. Apply to skin folds of both lower legs at time of dressing change or daily. 60 g 3 03/20/2023 4 Discontinue d(Refill) documented as of this encounter (statuses as of 04/16/2024) Active Problems Problem Noted Date Diagnosed Date [...] as of this encounter (statuses as of 04/16/2024) Resolved Problems Problem Noted Date Diagnosed Date [...] as of this encounter (statuses as of 04/16/2024) Immunizations Name Administration Dates Next Due Pneumococcal Conjugate Vacci ne, 20-valent ([id number]) 12/04/2022 Pneumococcal Polysaccharide PPV23 (Pneumovax) 05/06/2011 Seasonal [...] No 03/10/2024 Does the household have a [facility] source of income? (Household - for [...] encounter Miscellaneous Notes * Telephone Encounter - Aster Weller DPM - 04/16/2024 9:45 AM EDTSigned Prescriptions: Disp Refills Nystatin 309625 UNIT/GM External Powder (N*60 g 3 Sig: Apply topically to affected area 3 times a day. Apply to skin folds of both lower legs at time of dressing change or daily. Authorizing Provider: ASTER WELLER * Telephone Encounter - Veda Jacobson CMA - 04/16/2024 9:39 AM EDTPending Prescriptions: Disp Refills Nystatin 788685 UNIT/GM External Powder (N*60 g 3 Sig: Apply topically to affected area 3 times a day. Apply to skin folds of both lower legs at time of dressing change or daily. * Telephone Encounter - Veda Jacobson CMA - 04/16/2024 9:34 AM EDTPending Prescriptions: Disp Refills Nystatin 828597 UNIT/GM External Powder (N*60 g 3 Sig: Apply topically to affected area 3 times a day. Apply to skin folds of both lower legs at time of dressing change or daily. * Telephone Encounter - Jerilyn Amato unemployment insurance hearing officer - 04/15/2024 9:51 AM EDT Did you pend patient's preferred pharmacy and medication before forwarding?yes Pharmacy: [facility] [id number] Pending Prescriptions: Disp Refills Nystatin 216157 UNIT/GM External Powder (*60 g 3 Sig: Apply topically to affected area 3 times a day. Apply to skin folds of both lower legs at time of dressing change or daily. Last Visit: Visit date not found (in office), Visit date not found (telemedicine) Next Visit: Visit date not found If no future appointments scheduled, and last appointment is greater than a year ago, please schedule patient for a follow-up appointment Last date the medication was ordered: 03/20 Is this request for a controlled substance?No [...] 10:40 AM EDT Office Visit Wound Care, [address] [place] [address] Yuriy Hilario MD [address] [place] [address] 05/14/2024 1:40 PM EDT Office Visit [place] [address] [address] [address] Melissa Cruz PA-C [facility] [address] [place] [address] [place] [address] 05/28/2024 9:00 AM EDT Office Visit Cardiology, [address] [place] [address] Anna Adames MD [address] [place] [address] 06/06/2024 2:00 PM EDT Appointment Cardiac Studies, [address] [place] [address] 06/16/2024 1:25 PM EST NeuroDiagnostic Study Neurophysiology, [address] [address] Ramiro Grove, DO [address] [facility], [place] [address] 10/09/2024 11:30 AM EST Hospital Encounter OR [facility], Operating Room, [facility] - 4th Floor [address] [place] [address] [place] [address] Bigg Wetzel MD [address] [place] [address] 10/09/2024 11:30 AM EST - 10/09/2024 12:31 PM EST Surgery OR [facility], Operating Room, [facility] Floor [address] [place] [address] [place] [address] Bigg Wetzel MD [address] [place] [address] COLONOSCOPY FLEXIBLE PROXIMAL DIAGNOSTIC Scheduled Procedures Name Priority Associated Diagnoses Date/Ti mt COLONOSCOPY FLEXIBLE PROXIMAL DIAGNOSTIC Screening for colon [...] this encounter Medical Devices Implanted Type Area Roustabout Crew Pusher Device Identifier Shelf Expiration Date Model / Serial / Lot Device Perm Cntrl [id number] - [id number] Implanted:Qty: 2 on 09/27/2015 by Corey Robin Jr., MD at OR [facility] Uterus [employer] 05/03/2017 [id number] / / [id number] documented as of this encounter Advance Directives [...] Power of Attor benoit? No Care Teams Cryptozoologist Relationship Specialty Start Date End Date Melissa Cruz PA-C [address] [facility] [address] [place] [address] PCP - General Physician Control Room Operator 06/02/21 documented as of this encounter
--- OUTSIDE RECORDS SUMMARY | 2024-08-09 23:55 | External Medical Summary | Summary of Care ---
Author Name Unknown Organization [facility] Address [address] [place] [address] Phone [phone] Care Team Providers Care Zoology Professor Name Role Phone Melissa Cruz PA-C Primary Care Provider [phone]- [phone] Reason for Visit * Reason Onset Date Comments Home Health 12/21/2023 Encounter Details Date Type Department Care Team (Late st Contact Info) Description 12/21/2023 Telephone [place] [address] [address] [place], [place] [id number] Melissa Cruz PA-C [facility] [address] [place], [place] [id number] Home Health Allergies Active Allergy Reactions Criticality Noted Date Comments Aspirin 01/27/2014 Increased bleeding documented as of this encounter (statuses as of 03/21/2024) Medications Medication Sig Dispensed Refills Start Date [...] deep wounds. 45 g 3 03/19/2023 Active Nystatin 957928 UNIT/GM External Powder (Nystop) Apply topically to affected area 3 times a day. Apply to skin folds of both lower legs at time of dressing change or daily. 60 g 3 03/20/2023 Active One-A-Day Womens 50 Plus Oral Tablet Take by mouth. Acti ve Furosemide 40 MG Oral Tablet (Lasix)Indications:Ly mphedema Take 1 Tablet by mouth in the morning. 90 Tablet 2 07/26/2023 Active Potassium Chloride ER 10 MEQ Oral Tablet Extended ReleaseIndications:Ed erik, unspecified type Take 1 Tablet by mouth [...] WITH FOOD.. 90 Tablet 5 12/03/2023 Active documented as of this encounter (statuses as of 03/21/2024) Active Problems Problem Noted Date Diagnosed Date [...] as of this encounter (statuses as of 03/21/2024) Resolved Problems Problem Noted Date Diagnosed Date [...] as of this encounter (statuses as of 03/21/2024) Immunizations Name Administration Dates Next Due Pneumococcal Conjugate Vacci ne, 20-valent ([id number]) 12/04/2022 Pneumococcal Polysaccharide PPV23 (Pneumovax) 05/06/2011 Seasonal Influenza, PF, 6 M & above, IM , (FluLaval or Fluzone) 06/25/2023,06/05/2022,06/02/2021,05/22,05/06/2018,04/27/2017 Seasonal Influenza, Quadriva lent, No Preserve, IM 05/30/2016 Seasonal Influenza, Split, I IV3, With Preserve, Inj 05/27/2014,04/11/2013 TDAP, Age 7 and older, IM [...] Telephone Encounter - Jessica Gonzalez LPN - 12/21/2023 2:17 PM EDT Home Health Continuation/Re-certification of Care Order Request: Lucie TRACY, Calling from: [facility]. Today is the last day of allotted HH visits. Re Cert period: twice week for wound care to January 15 Reason for re-cert: wound Last VV visit: 09/26/23 Next office visit: 01/01 Advised that additional orders will be signed by Anthony and to fax to the office for signature. documented in this encounter Plan of Treatment Upcoming Encounters Date Type Department Care Team (Latest Contact Info) Description 04/16/2024 8:00 AM EDT Hospital Encounter OR [facility], Operating Room, [facility] [address] [facility] [place] [address] Usha Almeida, DO [address] [place] [address] 04/16/2024 8:00 AM EDT - 04/16/2024 8:28 AM EDT Surgery OR [facility], Operating Room, [facility] [address] [facility] [place] [address] Usha Almeida, DO [address] [place] [address] COLONOSCOPY FLEXIBLE PROXIMAL DIAGNOSTIC 04/21/2024 10:40 AM EDT Office Visit Wound Care, [address] [place] [address] Yuriy [place] [address] 05/14/2024 1:40 PM EDT Office Visit [place] [address] [address] [facility] [address] Melissa Cruz PA-C [facility] [address] [place] [address] 05/28/2024 9:00 AM EDT Office Visit Cardiology[address] [place] [address] Anna Adames MD [address] [place] [address] 06/06/2024 2:00 PM EDT Appointment Cardiac Studies, [facility] [address] [place] [address] 06/16/2024 1:25 PM EST NeuroDiagnostic Study Neurophysiology, [address] [place] [address] Ramiro Grove, DO [address] [facility] [place] [address] Scheduled Procedures Name Priority Associated Diagnoses Date/Ti me COLONOSCOPY FLEXIBLE PROXIMAL DIAGNOSTIC Screening for colon cancer 04/16/2024 8:00 AM EDT Health Maintenance Due Date Last Done Comments Hepatitis B Vaccine (1 of 3 - 19+ 3-dose series) 01/12/1995 HPV/Co-Test 01/12/2006 Mammogram 06/06/2019 06/06/2018, 09/18/2016 Cologuard 01/12/2021 Colonoscopy 01/12/2021 12/02/2008 Colorectal Cancer Screening 01/12/2021 Fecal Occult Blood Test 01/12/2021 Sigmoidoscopy 01/12/2021 COVID-19 Vaccine (2022- season) 2023 Cervical Cancer Screening 01/11/2024 Pap Smear 01/11/2024 01/10/2021, 10/05, 02/10/2009 Influenza Vaccine (FLU shot) (#1) 2024 06/25/2023, 06/05/2022, 06/02/2021, Additional history exists DTaP,Tdap,and Td Vaccines (2 - Td or Tdap) 01/20/2025 [...] this encounter Medical Devices Implanted Type Area Scallop Cutter Machine Device Identifier Shelf Expiration Date Model / Serial / Lot Device Perm Cntrl [id number] Implanted:Qty: 2 on 09/27/2015 by Sharda Ruiz, Corey Rucker MD at OR [facility] Uterus [employer] 05/03/2017 [id number] / / [id number] documented as of this encounter Advance Directives [...] Power of Attor benoit? No Care Teams Zoology Professor Relationship Specialty Start Date End Date Melissa Cruz PA-C [address] [facility] [address] [place] [address] PCP - General Physician Stamp Machine Servicer 06/02/21 documented as of this encounter
--- OUTSIDE RECORDS SUMMARY | 2024-08-09 23:55 | External Medical Summary | Summary of Care ---
Author Name Unknown Organization [facility] Address [address] [place] [address] Phone [phone] Care Team Providers Care Ring Facer Name Role Phone CarylTy mansfieldanthony Adam PA-C Primary Care Provider +1- [phone] Reason for Visit * Reason Comments NEW PATIENT Wounds to BLE Encounter Details Date Type Department Care Team (Late st Contact Info) Description 04/21/2024 10:40 AM EDT Office Visit Wound Care, [facility] [address], [place] [id number] Yuriy Hilario MD [address] [place] [address] Multiple open wounds of lower leg, unspecified laterality, subsequent encounter*; Class 3 severe obesity due to excess calories with serious comorbidity and body mass index (BMI) greater than or equal to 70 in adult (HCC); Lymphedema; Irritant contact dermatitis due to other body fluid Allergies Active Allergy Reactions Criticality Noted Date Comments Aspirin 01/27/2014 Increased bleeding documented as of this encounter (statuses as of 04/21/2024) Medications Medication Sig Dispensed Refills Start Date [...] DAY 90 Tablet 1 03/17/2024 Active Nystatin 777672 UNIT/GM External Powder (Nystop) Apply topically to affected area 3 times a day. Apply to skin folds of both lower legs at time of dressing change or daily. 60 g 3 04/16/2024 Active documented as of this encounter (statuses as of 04/21/2024) Active Problems Problem Noted Date Diagnosed Date [...] as of this encounter (statuses as of 04/21/2024) Resolved Problems Problem Noted Date Diagnosed Date [...] as of this encounter (statuses as of 04/21/2024) Immunizations Name Administration Dates Next Due Pneumococcal Conjugate Vacci ne, 20-valent ([id number]) 12/04/2022 Pneumococcal Polysaccharide PPV23 (Pneumovax) 05/06/2011 Seasonal [...] * Patient Instructions* Megha López LPN - 04/21/2024 12:24 PM EDT Compression Therapy Education: Any questions, redness or swelling around the wound and development of a temperature of 101F or greater, please contact the [facility]. Please check your toes frequently. If they become blue, purple, pale, cool, numb, and/or tingling elevate your leg higher than your heart for one hour. If you have no relief of the symptoms, cut the entire wrap off and call the [facility], . Keep the wrap dry. If the wrap slides down or bunches at the ankle, call [facility]. Elevate legs above heart for 30 minutes 2-3 times a day. documented in this encounter Progress Notes * Yuriy Hilario MD - 04/21/2024 11:34 AM EDT Images from the original note were not included. WOUND CARE OUTPATIENT CONSULT DOS: 04/21/2024 Ref: Patient is seen at the request of Nora Stephen DPM CC: Bilateral lower leg wounds HPI: 49-year-old female presents for evaluation of bilateral lower leg lymphedema associated with chronic stasis dermatitis and ulcerations. She has morbid obesity with a BMI of 77.76 kg/m. She hadbeen taken care of by Dr. Stephen but has developed intertriginous wounds of the skin of the lower legs above the level of the knee. She walks at home with a walker. She spends most of her day on the couch. She has home health come to see her and perform dressing changes twice weekly. She was referred for lymphedema therapy but did not qualify. Subjective ROS: CONST: no weight loss, no fever, no fatigue EYES: no changes in vision ENT: no changes in hearing, no sinus problems, no sore throat, no hoarseness, no nodes RESP: no cough, no wheezing, no SOB, no change in breathing MSK: no change in joint pains, + lower back pain and hip pain PSYCH: no anxiety, no depression HEME: no bleeding tendency, no clotting tendency NEURO: no significant headache, no seizures, no strokes SKIN: ulcers of bilateral lower legs with lymphedema ROS was negative other than stated above. PMH: Patient Active Problem List Diagnosis Calculus of kidney Esophageal reflux Lumbago Right knee DJD Asthma, mild persistent Recurrent major depressive disorder, in partial remission ([facility]) JORGE A (obstructive sleep apnea) Lymphedema LYNSEY (generalized anxiety disorder) Bipolar I disorder, current or most recent episode depressed, with psychotic features ([facility]) PTSD (post-traumatic stress disorder) Class 3 severe obesity due to excess calories with serious comorbidity and body mass index (BMI) greater than or equal to 70 in adult ([facility]) Neuropathy Past Medical History: Diagnosis Date Anemia Asthma, severity to be determined Depressive disorder, not elsewhere classified Diverticulosis of colon GERD (gastroesophageal reflux disease) History of chickenpox History of pneumonia History of strep sore throat INFORMATION 2012 Other-accidental fall, episode of syncope, hit head, concussion Kidney stone Morbid obesity, BMI not known (HCC) BMI >79 Current Medications - Prior to This Encounter Medication Sig Last Dose Discont. Nystatin 439558 UNIT/GM External Powder (Nystop) Apply topically to affected area 3 times a day. Apply to skin folds of both lower legs at time of dressing change or daily. 04/21/2024 Cetirizine HCl 10 MG Oral Tablet (ZyrTEC) TAKE 1 TABLET BY MOUTH EVERY DAY 04/21/2024 Cyclobenzaprine HCl 10 MG Oral Tablet (Flexeril) Take 1 Tablet by mouth 3 times a day as needed forMuscle spasms. 04/21/2024 Diclofenac Sodium 1 % External Gel (Voltaren) Apply topically to affected area 4 times a day. 04/21/2024 Vitamin D3 50 MCG (2000 UT) Oral Capsule TAKE 1 CAPSULE BY MOUTH EVERY DAY IN THE MORNING 04/21/2024 Silver sulfADIAZINE 1 % External Cream (Silvadene) Apply to open wounds daily. 04/21/2024 Pregabalin 150 MG Oral Capsule (Lyrica) Take 1 Capsule by mouth in the morning and 1 Capsule at noon and 1 Capsule in the evening and 1 Capsule before bedtime. 04/21/2024 Diclofenac Sodium 75 MG Oral Tablet Delayed Release (Voltaren) TAKE BY MOUTH 1 TABLET IN THE MORNING AND 1 TABLET AT NOON AND 1 TABLET BEFORE BEDTIME. WITH FOOD.. 04/21/2024 Omeprazole 20 MG Oral Capsule Delayed Release (PriLOSEC) TAKE 1 CAPSULE BY MOUTH EVERY DAY 04/21/2024 Potassium Chloride ER 10 MEQ Oral Tablet Extended Release Take 1 Tablet by mouth in the morning. 04/21/2024 Montelukast Sodium 10 MG Oral Tablet (Singulair) Take 1 Tablet by mouth at bedtime. 04/21/2024 One-A-Day Womens 50 Plus Oral Tablet Take by mouth. 04/21/2024 Clotrimazole-Betamethasone 1-0.05 % External Cream Apply topically to affected area 2 times a day. Apply to lower legs once daily at time of dressing change. Avoid applying to deep wounds. 04/21/2024 Fluticasone Propionate 50 MCG/ACT Nasal Suspension (Flonase) SPRAY 2 SPRAYS INTO EACH NOSTRIL IN THE MORNING 04/21/2024 ARIPiprazole 15 MG Oral Tablet (Abilify) TAKE 1 TABLET BY MOUTH EVERYDAY AT BEDTIME 04/21/2024 buPROPion HCl ER (XL) 300 MG Oral Tablet Extended Release 24 Hour (Wellbutrin XL) TAKE 1 TABLET BY MOUTH EVERY DAY IN THE MORNING 04/21/2024 lamoTRIgine 100 MG Oral Tablet (LaMICtal) 04/21/2024 Albuterol Sulfate HFA 108 (90 Base) MCG/ACT Inhalation Aerosol Solution 2 puffs every 4 hours as needed for shortness of breath/cough 04/21/2024 clonazePAM 1 MG Oral Tablet (KlonoPIN) 04/21/2024 traZODone (DESYREL) 50 MG Tablet Take 1 Tab by mouth at bedtime as needed, may repeat once for Sleep. 04/21/2024 predniSONE 10 MG Oral Tablet (Deltasone) Take 5 tabs for 2 days, 4 tabs for 2 days, 3 tabs for 2 days, 2 tabs for 2 days 1 tab for 2 days Patient not taking: Reported on 04/21/2024 Not Taking Furosemide 40 MG Oral Tablet (Lasix) Take 1 Tablet by mouth in the morning. Review of patient's allergies indicates: Allergen Reactions Aspirin Increased bleeding Past Surgical History: Procedure Laterality Date DENTAL SURGERY PROCEDURE NEC wisdom teeth extraction HYSTEROSCOPY W/FALLOPIAN IMPLANTS Bilateral 09/27/2015 HYSTEROSCOPY SURGICAL BILATERAL FALLOPIAN TUBE performed by Corey Robin Jr., MD at [facility] HYSTEROSCOPY;ENDOMETRIAL ABLAT N/A 09/27/2015 HYSTEROSCOPY ENDOMETRIAL ABLATION performed by Corey Robin Jr., MD at [facility] HYSTEROSCOPY;ENDOMETRIAL ABLAT N/A 06/11/2017 HYSTEROSCOPY ENDOMETRIAL ABLATION performed by Corey Robin Jr., MD at OR [facility] REMOVAL OF KIDNEY STONE, OVER 2CM 1997 REMOVE GALLBLADDER 1997 Social History: Social History Tobacco Use Smoking status: Former Current packs/day: 0.00 Average packs/day: 1 pack/day for 5.0 years (5.0 ttl pk-yrs) Types: Cigarettes Start date: 06/06/2007 Quit date: 06/06/2012 Years since quittin.8 Smokeless tobacco: Never Vaping Use Vaping status: Never Used Substance Use Topics Alcohol use: Yes Comment: rare Drug use: No Family History: Family History Problem Relation Name Age of Onset Heart Disorder Mother CAD Lung Disorder Mother COPD - former smoker Cancer Mother cervical Lung Disorder Father Emphysema - age 65 - smoker Mental Disorder Brother depression Objective EXAM: There were no vitals taken for this visit. GENERAL: alert, no apparent distress, obese HEAD: normocephalic EYES: sclera clear EARS: external ears normal NOSE: no mucosal erythema MOUTH: mucous membranes are moist NECK: supple, no adenopathy NEURO: alert & oriented x 3 with fluent speech,no focal motor/sensory deficits EXT: bilateral lower extremity lymphedema with lipodermatosclerosis, chronic venous stasis changes,and ulcerations SKIN: see wound assessment below WOUND ASSESSMENT: Alteration in Skin Integrity Proximal;Right;Medial Leg (Active) Clinical Image 04/21/24 1044 Wound Length (cm) 6.5 cm 04/21/24 1044 Wound Width (cm) 2.5 cm 04/21/24 1044 Wound Depth (cm) 0.1 cm 04/21/24 1044 Yellow Fibrinous Slough (%) none 04/21/24 1044 Granulation Tissue (%) 100% 04/21/24 1044 Granulation Tissue Color red 04/21/24 1044 Necrotic Tissue (%) none 04/21/24 1044 Drainage serosanguinous, mild 04/21/24 1044 Odor (after cleansing wound) No 04/21/24 1044 Jaye-Wound (Surrounding Skin) Edema 04/21/24 1044 Wound Surface Area (cm^2) 16.25 cm^2 04/21/24 1044 Wound Volume (cm^3) 1.625 cm^3 04/21/24 1044 Alteration in Skin Integrity Lower;Right;Lateral;Proximal Leg (Active) Clinical Image 04/21/24 1049 Wound Length (cm) 32 cm 04/21/24 1049 Wound Width (cm) 12 cm 04/21/24 1049 Wound Depth (cm) 0.1 cm 04/21/24 1049 Yellow Fibrinous Slough (%) 1-25% 04/21/24 1049 Granulation Tissue (%) 51-75% 04/21/24 1049 Granulation Tissue Color red 04/21/24 1049 Drainage serosanguinous, mild 04/21/24 1049 Odor (after cleansing wound) No 04/21/24 1049 Jaye-Wound (Surrounding Skin) Edema 04/21/24 1049 Wound Surface Area (cm^2) 384 cm^2 04/21/24 1049 Wound Volume (cm^3) 38.4 cm^3 04/21/24 1049 Alteration in Skin Integrity Anterior;Distal;Left;Lower Leg (Active) Clinical Image 04/21/24 1053 Alteration in Skin Integrity Left;Lower;Medial Leg (Active) Alteration in Skin Integrity Anterior;Proximal;Left Leg (Active) Clinical Image 04/21/24 1054 Alteration in Skin Integrity Anterior;Left Thigh (Active) Alteration in Skin Integrity Left;Proximal;Lateral Leg (Active) Clinical Image 04/21/24 1053 Alteration in Skin Integrity Left;Medial Knee (Active) Clinical Image 04/21/24 1051 Wound Length (cm) 6.5 cm 04/21/24 1051 Wound Width (cm) 4 cm 04/21/24 1051 Wound Depth (cm) 0.2 cm 04/21/24 1051 Yellow Fibrinous Slough (%) 51-75% 04/21/24 1051 Granulation Tissue (%) 1-25% 04/21/24 1051 Granulation Tissue Color red 04/21/24 1051 Drainage serosanguinous, mild 04/21/24 1051 Odor (after cleansing wound) No 04/21/24 1051 Jaye-Wound (Surrounding Skin) Edema 04/21/24 1051 Wound Surface Area (cm^2) 26 cm^2 04/21/24 1051 Wound Volume (cm^3) 5.2 cm^3 04/21/24 1051 Alteration in Skin Integrity Lower;Right;Medial Leg (Active) Clinical Image 04/21/24 1048 Wound Length (cm) 10.5 cm 04/21/24 1048 Wound Width (cm) 4 cm 04/21/24 1048 Wound Depth (cm) -- (Slough) 04/21/24 1048 Yellow Fibrinous Slough (%) 76-99% 04/21/24 1048 Granulation Tissue (%) 1-25% 04/21/24 1048 Granulation Tissue Color pale/pink 04/21/24 1048 Drainage serosanguinous, mild 04/21/24 1048 Odor (after cleansing wound) No 04/21/24 1048 Jaye-Wound (Surrounding Skin) Edema 04/21/24 1048 Wound Surface Area (cm^2) 42 cm^2 04/21/24 1048 Alteration in Skin Integrity Anterior;Proximal;Right Leg (Active) Clinical Image 04/21/24 1046 Wound Length (cm) 5 cm 04/21/24 1046 Wound Width (cm) 5 cm 04/21/24 1046 Wound Depth (cm) 0.1 cm 04/21/24 1046 Yellow Fibrinous Slough (%) 100% 04/21/24 1046 Drainage serosanguinous, mild 04/21/24 1046 Odor (after cleansing wound) No 04/21/24 1046 Jaye-Wound (Surrounding Skin) Edema 04/21/24 1046 Wound Surface Area (cm^2) 25 cm^2 04/21/24 1046 Wound Volume (cm^3) 2.5 cm^3 04/21/24 1046 Alteration in Skin Integrity Anterior;Distal;Lower;Right Leg (Active) Clinical Image 04/21/24 1040 Wound Length (cm) 1 cm 04/21/24 1040 Wound Width (cm) 0.2 cm 04/21/24 1040 Wound Depth (cm) 0.1 cm 04/21/24 1040 Granulation Tissue (%) 100% 04/21/24 1040 Granulation Tissue Color pale/pink 04/21/24 1040 Drainage serous, mild 04/21/24 1040 Odor (after cleansing wound) No 04/21/24 1040 Jaye-Wound (Surrounding Skin) Edema 04/21/24 1040 Wound Surface Area (cm^2) 0.2 cm^2 04/21/24 1040 Wound Volume (cm^3) 0.02 cm^3 04/21/24 1040 There are changes associated with chronic contact dermatitis of the intertriginous skin folds of the bilateral lower legs due to sweat. Assessment & Plan ASSESSMENT: ICD-10-CM 1. Multiple open wounds of lower leg, unspecified laterality, subsequent encounter S81.809D 2. Class 3 severe obesity due to excess calories with serious comorbidity and body mass index (BMI)greater than or equal to 70 in adult ([facility]) E66.01 Z68.45 3. Lymphedema I89.0 4. Irritant contact dermatitis due to other body fluid L24.A9 PLAN: Bilateral lower leg Unna boots twice weekly. Xtrasorb to each ulceration. Wrap to a level below theskin folds so that these may be addressed separately between wrap changes. Come to wound clinic forwrap changes / Sunday. 08/09 st vinegar / water solution sprayed on legs after cleaning, especially within skin folds. Afterdrying, apply cotton wicking fabric or similar, exiting out of the fold to wick moisture away. Can apply Nystatin powder to these areas as needed. Will need to be done twice daily. Would benefit from weight loss. Will CC patient's PCP for this. May benefit from referral to [facility]. Check-out note: 1 week with me and with wound nurse for wrap change. Lillian Hilario MD documented in this encounter Nursing Notes * Rene Meghaemily Rick', [employer]OUNT [employer] - 04/21/2024 10:27 AM EDT New patient for -- wounds to BLE SHINS TO THIGHS Current -- silvadene to wounds -- Nystatin powder to folds. Washed wounds with soap and water towel dried tolerated well. Photos and measurements taken. Will provide treatment per order post exam. Post exam provided Unna boots to level per order. To highest point covering ulcerations but avoiding the Skin folds. Optilock over ulcerated areas. Then at this point applied antifungal powder to skin folds with buttress of ABD pad only until she can utilize the Vinegar spray that was explained to her by . It was also repeated as Mica questioned again what this was 1/4 cup water - 3/4 cup of white vinegar to skin folds --- air dry then place cotton fabric or any moisture wicking fabric the width of fold that extends several inches longer the wound at end to wick moisture aware. She also asked what will nursing do on home visits this week. This will be the fold care -- not Unna Boots at this time.She will also return here then Sunday with . Review of compression wrap safety was also reviewed and Mica did voice understanding the following Compression Therapy Education: Any questions, redness or swelling around the wound and development of a temperature of 101F or greater, please contact the [facility]. Please check your toes frequently. If they become blue, purple, pale, cool, numb, and/or tingling elevate your leg higher than your heart for one hour. If you have no relief of the symptoms, cut the entire wrap off and call the [facility], . Keep the wrap dry. If the wrap slides down or bunches at the ankle, call [facility]. Elevate legs above heart for 30 minutes 2-3 times a day. Assisted with stockings and shoes then propelled to check out documented in this encounter Plan of Treatment Upcoming Encounters Date Type Department Care Team (Latest Contact Info) Description 04/23/2024 11:20 AM EDT Office Visit [place] [address] [place] [address] Melissa Cruz PA-C [facility]0 [facility] [address] [place] [address] 04/24/2024 11:30 AM EDT Nurse Only Wound Care, [address] [address] [facility], Nurse Wound Care [address] [place] [address] 04/28/2024 10:00 AM EDT Office Visit Wound Care, [address] [address] Yuriy Hilario MD [address] [place] [address] 05/14/2024 1:40 PM EDT Office Visit [place] [address] [place] [address] Melissa Cruz PA-C [address] [facility] [address] [place] [address] 05/28/2024 9:00 AM EDT Office Visit [address] [place] [address] [facility] [address] [facility] [place] [address] 06/06/2024 2:00 PM EDT Appointment Card[facility] Studies, [facility] [address] [facility] [place] [address] 06/16/2024 1:25 PM EST NeuroDiagnostic Study Neurophysiology, [address] [place] [address] Ramiro Grove, DO [address] [facility], [place] [address] 10/09/2024 11:30 AM EST Hospital Encounter [facility], Operating Room, [facility] - 4th Floor [address] [place] [address] Bigg Wetzel MD [address] [place] [address] 10/09/2024 11:30 AM EST - 10/09/2024 12:31 PM EST Surgery OR [facility], Operating Room, [facility] - 4th Floor [address] [place] [address] Bigg Wetzel MD [address] [place] [address] COLONOSCOPY FLEXIBLE PROXIMAL DIAGNOSTIC Scheduled Procedures Name Priority Associated Diagnoses Date/Ti fl COLONOSCOPY FLEXIBLE PROXIMAL DIAGNOSTIC Screening for colon [...] this encounter Medical Devices Implanted Type Area Corporate Trust Officer Device Identifier Shelf Expiration Date Model / Serial / Lot Device Perm Cntrl [id number] - [id number] Implanted:Qty: 2 on 09/27/2015 by Sharda Ruiz, Corey Rucker MD at OR [facility] Uterus [employer] 05/03/2017 [id number] / [id number] documented as of this encounter Visit Diagnoses Diagnosis Multiple open wounds of lower leg, unspecified laterality, subsequent encounter- Primary Class 3 severe obesity due to excess calories with serious comorbidity and body mass index (BMI) greater than or equal to 70 in adult (HCC) Lymphedema Other lymphedema Irritant contact dermatitis due [...] Power of Attor benoit? No Care Teams Ring Facer Relationship Specialty Start Date End Date Melissa Cruz PA-C [address] [facility] [address] [place] [address] PCP - General Physician Summer Law Clerk 06/02/21 documented as of this encounter
--- OUTSIDE RECORDS SUMMARY | 2024-08-09 23:55 | External Medical Summary | Summary of Care ---
Author Name Unknown Organization [facility] Address [address] [place] [address] Phone [phone] Care Team Providers Care Drawing Hand Name Role Phone Melissa Cruz PA-C Primary Care Provider +1- [phone] Reason for Visit * Reason Onset Date Comments Order Request 04/15/2024 Encounter Details Date Type Department Care Team (Late st Contact Info) Description 04/15/2024 Telephone [place] [address] [place], [place] [phone] Melissa Cruz PA-C [facility] [address] [place], [place] [phone] Order Request Allergies Active Allergy Reactions Criticality [...] DAY 90 Tablet 1 03/17/2024 Active Nystatin 647747 UNIT/GM External Powder (Nystop) Apply topically to affected area 3 times a day. Apply to skin folds of both lower legs at time of dressing change or daily. 60 g 3 03/20/2023 Discontinue d(Refill) documented as of this encounter [...] Next Due Pneumococcal Conjugate Vacci ne, 20-valent ([id number]) 12/04/2022 Pneumococcal Polysaccharide PPV23 (Pneumovax) 05/06/2011 Seasonal [...] Telephone Encounter - Leonarda Lofton OSA - 04/16/2024 11:16 AM EDT Order for rollator walker faxed to [facility] in [place]. * Telephone Encounter - Melissa Cruz PA-C - 04/16/2024 9:32 AM EDT Signed. * Telephone Encounter - Yolanda Pinedo LPN - 04/15/2024 1:15 PM EDT Pt is calling and is asking if PCP could place an order for a rollator walker. Asks that this is sent to [facility] in [place]. DME pended. Please advise. documented in this encounter Plan of Treatment Upcoming Encounters Date Type Department Care Team (Latest Contact Info) Description 04/21/2024 10:40 AM EDT Office [address], [address] [address] Yuriy [facility]ilario MD [address] [facility] [address] 05/14/2024 1:40 PM EDT Office Visit [facility] [address] [place] [address] Melissa Cruz PA-C [address] [facility] [address] [place] [address] 05/28/2024 9:00 AM EDT Office [address]iology, [address] [address] Anna Adames MD [address] [place] [address] [place] [address] 06/06/2024 2:00 PM EDT Appointment Card[address] Studies, [address] [address] 06/16/2024 1:25 PM EST NeuroDiagnostic Study Neurophysiology, [address] [address] Ramiro Grove, DO [address] [place] [address] 10/09/2024 11:30 AM EST Hospital Encounter [facility], Operating Room, [facility] - 4th Floor [address] [place] [address] [place] [id number] Bigg Wetzel MD [address] [place] [address] 10/09/2024 11:30 AM EST - 10/09/2024 12:31 PM EST Surgery [facility], Operating Room, [facility] - 4th Floor [address] [place] [address] Bigg Wetzel MD [address] [place] [address] COLONOSCOPY FLEXIBLE PROXIMAL DIAGNOSTIC Scheduled Procedures Name [...] this encounter Medical Devices Implanted Type Area Graphics Artist Device Identifier Shelf Expiration Date Model / Serial / Lot Device Perm Cntrl [id number] - [id number] Implanted:Qty: 2 on 09/27/2015 by Sharda Ruiz, Corey Rucker MD at OR [facility] Uterus [employer] 05/03/2017 [id number] / [id number] documented as of this encounter Visit Diagnoses Diagnosis Ambulatory dysfunction- Primary Screening for colon cancer Special screening [...] Power of Attor benoit? No Care Teams Drawing Hand Relationship Specialty Start Date End Date Melissa Cruz PA-C [address] [place] [address] [place] [address] PCP - General Physician Supervisor [employer] 06/02/21 documented as of this encounter
--- OUTSIDE RECORDS SUMMARY | 2024-08-09 23:55 | External Medical Summary | Summary of Care ---
Author Name Unknown Organization [facility] Address [address] [place] [address] Phone [phone] Care Team Providers Care Mold Stamper And Repairer Name Role Phone Melissa Cruz PA-C Primary Care Provider +1- [phone] Reason for Visit * Reason Onset Date Comments Advice 04/03/2024 Encounter Details Date Type Department Care Team ([facility] st Contact Info) Description 04/03/2024 Telephone [place] [address] [place], [place] [phone] Melissa Cruz PA-C [facility]2 [facility] [address] [place] [address] [phone] Advice Allergies Active Allergy Reactions Criticality Noted Date Comments Aspirin 01/27/2014 Increased bleeding documented as of this encounter (statuses as of 04/08/2024) Medications Medication Sig Dispensed Refills Start Date [...] wounds. 45 g 3 03/19/2023 Active Nystatin 461207 UNIT/GM External Powder (Nystop) Apply topically to [...] 1 01/02/2024 Active Vitamin D3 50 MCG (1999 UT) [...] as of this encounter (statuses as of 04/08/2024) Active Problems Problem Noted Date Diagnosed Date [...] as of this encounter (statuses as of 04/08/2024) Resolved Problems Problem Noted Date Diagnosed Date [...] as of this encounter (statuses as of 04/08/2024) Immunizations Name Administration Dates Next Due Pneumococcal Conjugate Vacci ne, 20-valent ([id number]) 12/04/2022 Pneumococcal Polysaccharide PPV23 (Pneumovax) 05/06/2011 Seasonal [...] No 03/10/2024 Does the household have a [facility] source of income? (Household - for ages [...] encounter Miscellaneous Notes * Telephone Encounter - Priscila Terry LPN - 04/08/2024 12:26 PM EDT Pt aware and verbalized understanding. Will call to schedule. * Telephone Encounter - Cyn Haynes MD - 04/08/2024 10:54 AM EDT Needs apt * Telephone Encounter - Andie Perez LPN - 04/03/2024 1:53 PM EDT Patient is calling. She is on Lasix 40 mg. Noticed she is not voiding as often and is concerned. Reports she only voids about 4 times a day. Edema has not increased. No sob. No weight change. Asking if her lasix should be increased? documented in this encounter Plan of Treatment Upcoming Encounters Date Type Department Care Team (Latest Contact Info) Description 04/16/2024 8:00 AM EDT Hospital Encounter OR [facility], Operating Room, [facility] - 4th Floor [address] [place] [address] Usha Almeida, [address] [place] [address] 04/16/2024 8:00 AM EDT - 04/16/2024 8:28 AM EDT Surgery OR [facility], Operating Room, [facility] - 4th Floor [address] [place] [address] Usha Almeida, [address] [place] [address] COLONOSCOPY FLEXIBLE PROXIMAL DIAGNOSTIC 04/21/2024 10:40 AM EDT Office Visit Wound Care, [address] [place] [address] Yuriy Hilario MD 27 [facility] [place] [address] 05/14/2024 1:40 PM EDT Office Visit [place] [address] [place] [address] Melissa Cruz, PA-C [address] [place] [address] [address] [place] [address] 05/28/2024 9:00 AM EDT Office Visit Cardiology, [address] [place] [address] Anna Adames MD [address] [place] [address] [place] [address] 06/06/2024 2:00 PM EDT Appointment Cardiac Studies, [address] [place] [address] 06/16/2024 1:25 PM EST NeuroDiagnostic Study Neurophysiology, [place] [address] [place] [address] Ramiro Grove, DO 200 [facility] [place] [address] Scheduled Procedures Name Priority Associated Diagnoses Date/Ti [...] this encounter Medical Devices Implanted Type Area Steam Fitter Supervisor Device Identifier Shelf Expiration Date Model / Serial / Lot Device Perm Cntrl [id number] - [id number] Implanted:Qty: 2 on 09/27/2015 by Sharda Ruiz, Corey Rucker MD at OR [facility] Uter[employer] 05/03/2017 [id number] / / [id number] documented as of this encounter Advance Directives [...] Power of Attor benoit? No Care Teams Mold Stamper And Repairer Relationship Specialty Start Date End Date Melissa Cruz PA-C [address] [address] [place] [address] PCP - General Physician Media Planner / Buyer 06/02/21 documented as of this encounter
--- OUTSIDE RECORDS SUMMARY | 2024-08-09 23:55 | External Medical Summary | Summary of Care ---
Author Name Unknown Organization [facility] Address [address] [place] [address] Phone [phone] Care Team Providers Care College Counselor Name Role Phone CarylTy masnfieldanthony Downing PA-C Primary Care Provider +1- [phone] Reason for Visit * Reason Onset Date Comments Fax 04/21/2024 [facility] Encounter Details Date Type Department Care Team (Late st Contact Info) Description 04/21/2024 Telephone Wound Care, [facility] [address] [place], [place] [phone] Yuriy Hilario MD [address] [place], [place] [phone] Fax ([facility]) Allergies Active Allergy Reactions Criticality Noted Date [...] DAY 90 Tablet 1 03/17/2024 Active Nystatin 265990 UNIT/GM External Powder (Nystop) Apply topically to [...] Next Due Pneumococcal Conjugate Vacci ne, 20-valent ([id number]) 12/04/2022 Pneumococcal Polysaccharide PPV23 (Pneumovax) 05/06/2011 Seasonal [...] Telephone Encounter - Kalyn Rivera OSA - 04/21/2024 1:16 PM EDT Office note from today's wound visit was faxed to [facility] #[phone]. documented in this encounter Plan of Treatment Upcoming Encounters Date Type Department Care Team (Latest Contact Info) Description 04/23/2024 11:20 AM EDT Office Visit [place] [address] [address] [place] [address] Melissa Cruz, [facility] [place] [address] 04/24/2024 11:30 AM EDT Nurse Only Wound Care, [address] [place] [phone] [facility], [facility] Wound [facility] 400 [facility] [place] [address] 04/28/2024 10:00 AM EDT Office Visit Wound Care, [address] [place] [address] Yuriy Hilario MD [address] [facility] [address] 05/14/2024 1:40 PM EDT Office Visit [place] [address] [place] [address] Melissa Cruz PA-Brant 4752 [facility] [address] [place] [address] 05/28/2024 9:00 AM EDT Office Visit [address]iology[address] [place] [address] Anna Adames MD [address] [place] [address] [place] [address] 06/06/2024 2:00 PM EDT Appointment Cardiac Studies, [address] [address] 06/16/2024 1:25 PM EST NeuroDiagnostic Study Neurophysiology, [address] [address] Ramiro Grove, DO 200 [facility] [address] 10/09/2024 11:30 AM EST Hospital Encounter OR [facility], [facility] Room, [facility] - 4th Floor [address] [place] [address] [place] [id number] Bigg Wetzel MD [address] [place] [address] 10/09/2024 11:30 AM EST - 10/09/2024 12:31 PM EST Surgery OR [facility], Operating Room, [facility] - 4th Floor [address] [place] [address] Bigg Wetzel MD [address] [place] [address] COLONOSCOPY FLEXIBLE PROXIMAL DIAGNOSTIC Scheduled Procedures Name [...] / Serial / Lot Device Perm Cntrl [id number] - [id number] Implanted:Qty: 2 on 09/27/2015 by Sharda Ruiz, Corey Rucker MD at OR [facility] Uterus [employer] 05/03/2017 [id number] / / [id number] documented as of this encounter Advance Directives [...] Power of Attor benoit? No Care Teams College Counselor Relationship Specialty Start Date End Date Melissa Cruz PA-C [address] [place] [address] PCP - General Physician Stamping Press Operator 06/02/21 documented as of this encounter
--- OUTSIDE RECORDS SUMMARY | 2024-08-09 23:55 | External Medical Summary | Summary of Care ---
Author Name Unknown Organization [facility] Address [address] [place] [address] Phone [phone] Care Team Providers Care Nougat Cutter Machine Name Role Phone Melissa Cruz PA-C Primary Care Provider +1- [phone] Reason for Visit * Reason Onset Date Comments Advice 04/02/2024 Encounter Details Date Type Department Care Team ([facility] st Contact Info) Description 04/02/2024 Telephone [place] [address] [address] [place], [place] [phone] Melissa Cruz PA-C [facility]2 [facility] [address] [place] [address] [phone] Advice Allergies Active Allergy Reactions Criticality Noted [...] wounds. 45 g 3 03/19/2023 Active Nystatin 291865 UNIT/GM External Powder (Nystop) Apply topically to [...] Next Due Pneumococcal Conjugate Vacci ne, 20-valent ([id number]) 12/04/2022 Pneumococcal Polysaccharide PPV23 (Pneumovax) 05/06/2011 Seasonal [...] No 03/10/2024 Does the household have a [facility] source [facility]? (Household - [...] Telephone Encounter - Melissa Cruz PA-C - 04/11/2024 5:21 PM EDT DME orders placed. Note signed to accompany. * Telephone Encounter - Yolanda Pinedo LPN - 04/11/2024 1:19 PM EDT Pt is calling to check on the status of previous message. Please advise. * Telephone Encounter - Cyn Haynes MD - 04/08/2024 10:54 AM EDT Will defer to PCP as will need documentation in OV * Telephone Encounter - Jessica Gonzalez LPN - 04/02/2024 2:50 PM EDT Pt calling at her last appt on 03/10, She had requested an order for wheelchair ramp and a order handicap shower. Pt has not hear anything about these orders. I am unable to find orders in chart. Are you agreeable to order these? documented in this encounter Plan of Treatment Upcoming Encounters Date Type Department Care Team (Latest Contact Info) Description 04/21/2024 10:40 AM EDT Office Visit Wound Care, [address] [place] [address] Yuriy Hilario MD [address] [place] [address] 05/14/2024 1:40 PM EDT Office Visit [address] [place] [address] Melissa Cruz PA-C [address] [place] [address] [place] [address] 05/28/2024 9:00 AM EDT Office Visit Cardiology, [address] [place] [address] Anna Adames MD 400 [facility] [place] [address] 06/06/2024 2:00 PM EDT Appointment Cardiac Studies, [address] [place] [address] 06/16/2024 1:25 PM EST NeuroDiagnostic Study Neurophysiology, [address] [place] [address] Ramiro Grove, DO 200 [facility] [place] [address] 10/09/2024 11:30 AM EST Hospital Encounter OR [facility], Operating Room, [facility] - 4th Floor [address] [place], [place] [address] [address] Bigg Wetzel MD [address] [place] [address] 10/09/2024 11:30 AM EST - 10/09/2024 12:31 PM EST Surgery OR [facility], Operating Room, [facility] - 4th Floor 400 [facility] [place] [address] Bigg Wetzel MD [address] [place] [address] COLONOSCOPY FLEXIBLE PROXIMAL DIAGNOSTIC Scheduled Procedures Name [...] this encounter Medical Devices Implanted Type Area Patent Attorney Device Identifier Shelf Expiration Date Model / Serial / Lot Device Perm Cntrl [id number] - [id number] Implanted:Qty: 2 on 09/27/2015 by Sharda Ruiz, Corey Rucker MD at OR [facility] Uterus [employer] 05/03/2017 [id number] / / [id number] documented as of this encounter Advance Directives [...] Power of Attor benoit? No Care Teams Nougat Cutter Machine Relationship Specialty Start Date End Date Melissa Cruz PA-C 4752 [facility] [address] [place] [address] PCP - General Physician Health Information Technician 06/02/21 documented as of this encounter
--- OUTSIDE RECORDS SUMMARY | 2024-08-09 23:55 | External Medical Summary | Summary of Care ---
Author Name Unknown Organization [facility] Address [address] [place] [address] Phone [phone] Care Team Providers Care Hot Saw Operator Name Role Phone Anthony Melissa Downing PA-C Primary Care Provider +1- [phone] Reason for Visit * Reason Onset Date Comments Advice 04/22/2024 Encounter Details Date Type Department Care Team (Late st Contact Info) Description 04/22/2024 Telephone General Surgery Marilee Cote [address] Juan [address] [place] [address] Yuriy Hilario MD 27 [place] [address] Advice Allergies Active Allergy Reactions Criticality Noted Date Comments Aspirin 01/27/2014 Increased bleeding documented as of this encounter (statuses as of 04/22/2024) Medications Medication Sig Dispensed Refills Start Date [...] DAY 90 Tablet 1 03/17/2024 Active Nystatin 834885 UNIT/GM External Powder (Nystop) Apply topically to affected area 3 times a day. Apply to skin folds of both lower legs at time of dressing change or daily. 60 g 3 04/16/2024 Active documented as of this encounter (statuses as of 04/22/2024) Active Problems Problem Noted Date Diagnosed Date [...] as of this encounter (statuses as of 04/22/2024) Resolved Problems Problem Noted Date Diagnosed Date [...] as of this encounter (statuses as of 04/22/2024) Immunizations Name Administration Dates Next Due Pneumococcal Conjugate Vacci ne, 20-valent ([id number]) 12/04/2022 Pneumococcal Polysaccharide PPV23 (Pneumovax) 05/06/2011 Seasonal [...] encounter Miscellaneous Notes * Telephone Encounter - Venus Strong RN - 04/22/2024 3:39 PM EDT I attempted to return call to marilyn Barnett. I called [facility] office and thanked them for the update. No new orders, Notify nurse that Mica does have an appointment here on to have wraps reapplied. * Telephone Encounter - Liz Wood OSA - 04/22/2024 8:41 AM EDT Reason for patient's call: Ericka, nurse with [facility] Home Health, calling with patient present to speak with a nurse in regards to patient's wound dressings from yesterday and orders for how to proceed Nurse will remove the wraps because dressing from yesterday almost completely fell off and was hanging at the ankle area She does not have the same type of supplies used yesterday so she will have to rewrap with what is in her possession She suggests patient may need to come back into the office Transfer attempt to connect caller per request not successful Caller was transferred to n/a at the nurse line. documented in this encounter Plan of Treatment Upcoming Encounters Date Type Department Care Team (Latest Contact Info) Description 04/23/2024 11:20 AM EDT Office Visit [place] [address] [place] [address] Melissa Cruz PA-C [address] [place] [address] [place] [address] 04/24/2024 11:30 AM EDT Nurse Only Wound Care, [address] [address] [facility], Nurse Wound Care [address] [place] [address] 04/28/2024 10:00 AM EDT Office Visit Wound Care, [address] [address] Yuriy Hilario MD [address] [place] [address] 05/14/2024 1:40 PM EDT Office Visit [address] [place] [address] Melissa Cruz PA-C [address] [place] [address] [place] [address] 05/28/2024 9:00 AM EDT Office Visit Cardiology, [address] [address] Anna Adames MD [address] [place] [address] 06/06/2024 2:00 PM EDT Appointment Cardiac Studies, [address] [place] [address] 06/16/2024 1:25 PM EST NeuroDiagnostic Study Neurophysiology, [place] [address] [facility] [place] [address] Ramiro Grove, DO [address] [facility] [address] 10/09/2024 11:30 AM EST Hospital Encounter OR [facility], Operating Room, [facility] - 4th Floor [address] [place] [address] Bigg Wetzel MD [address] [place] [address] 10/09/2024 11:30 AM EST - 10/09/2024 12:31 PM EST Surgery OR [facility], Operating Room, [facility] - 4th Floor [address] [place] [address] Bigg Wetzel MD [address] [place] [address] COLONOSCOPY FLEXIBLE PROXIMAL DIAGNOSTIC Scheduled Procedures Name [...] this encounter Medical Devices Implanted Type Area Grading Clerk Device Identifier Shelf Expiration Date Model / Serial / Lot Device Perm Cntrl [id number] - [id number] Implanted:Qty: 2 on 09/27/2015 by Sharda Ruiz, Corey Rucker MD at OR [facility] Uterus [employer] 05/03/2017 [id number] / / [id number] documented as of this encounter Advance Directives [...] Power of Attor benoit? No Care Teams Hot Saw Operator Relationship Specialty Start Date End Date Melissa Cruz PA-C 4752 [facility] [address] [place] [address] PCP - General Physician Application Support Lead 06/02/21 documented as of this encounter
--- OUTSIDE RECORDS SUMMARY | 2024-08-09 23:55 | External Medical Summary | Summary of Care ---
Author Name Unknown Organization [facility] Address [address] [place] [address] Phone [phone] Care Team Providers Care Irradiated Fuel Handler Name Role Phone Carylshyla Melissa Downing PA-C Primary Care Provider +1- [phone] Encounter Details Date Type Department Care Team (Latest Contact Info) Description 03/19/2024 9:52 AM EDT - 03/19/2024 11:59 PM EDT Hospital Encounter Cardiac Studies, [facility] [address] [place] [address] [address] Engineering Teacher [address] [place] [address] Discharge Disposition: Home - Self Care Allergies Active Allergy Reactions Criticality Noted Date Comments Aspirin 01/27/2014 Increased bleeding documented as of this encounter (statuses as of 03/20/2024) Medications Medication Sig Dispensed Refills Start Date [...] wounds. 45 g 3 03/19/2023 Active Nystatin 825801 UNIT/GM External Powder (Nystop) Apply topically to [...] as of this encounter (statuses as of 03/20/2024) Active Problems Problem Noted Date Diagnosed Date [...] as of this encounter (statuses as of 03/20/2024) Resolved Problems Problem Noted Date Diagnosed Date [...] as of this encounter (statuses as of 03/20/2024) Immunizations Name Administration Dates Next Due Pneumococcal Conjugate Vacci ne, 20-valent ([id number]) 12/04/2022 Pneumococcal Polysaccharide PPV23 (Pneumovax) 05/06/2011 Seasonal [...] as of this encounter Miscellaneous Notes * Ancillary Progress Note - Jeremie Martinez TECH - 03/19/2024 10:15 AM EDT 14 day Zio Monitor Placed [id number] [facility] Cardiopulmonary Office documented in this encounter Plan of Treatment Upcoming Encounters Date Type Department Care Team (Latest Contact Info) Description 04/16/2024 8:00 AM EDT Hospital Encounter OR [facility], Operating Room, [facility] - 4th Floor [address] [place] [address] Usha Almeida, DO [address] [place] [address] 04/16/2024 8:00 AM EDT - 04/16/2024 8:28 AM EDT Surgery OR [facility], Operating Room, [facility] - 4th Floor [address] [place] [address] Usha Almeida, DO [address] [place] [address] COLONOSCOPY FLEXIBLE PROXIMAL DIAGNOSTIC 04/21/2024 10:40 AM EDT Office Visit Wound Care, [facility] 400 [facility] [address] Yuriy Hilario MD 27 [place] [address] 05/14/2024 1:40 PM EDT Office Visit [facility] [address] [place] [address] Melissa Cruz PA-Brant 4752 [facility] [address] [place] [address] 05/28/2024 9:00 AM EDT Office Visit Cardiology[address] [place] [address] Anna Adames MD 400 [place] [address] 06/06/2024 2:00 PM EDT Appointment Cardiac Studies, [address] [address] 06/16/2024 1:25 PM EST NeuroDiagnostic Study Neurophysiology, [address] [address] Ramiro Grove, DO 200 [place] [address] Scheduled Orders Name Type Priority Associated Diagnoses Orde r Schedule EXTERNAL EKG 8 TO 15 DAYS Holter Routine Heart palpitations Ordered: 03/11/2024 Scheduled Procedures Name Priority Associated Diagnoses Date/Ti me COLONOSCOPY FLEXIBLE PROXIMAL DIAGNOSTIC Screening for colon cancer 04/16/2024 8:00 AM EDT Health Maintenance Due Date Last Done Comments Hepatitis B Vaccine (1 of 3 - 19+ 3-dose series) 01/12/1995 HPV/Co-Test 01/12/2006 Mammogram 06/06/2019 06/06/2018, 09/18/2016 Cologuard 01/12/2021 Colonoscopy 01/12/2021 12/02/2008 Colorectal Cancer Screening 01/12/2021 Fecal Occult Blood Test 01/12/2021 Sigmoidoscopy 01/12/2021 COVID-19 Vaccine (24 season) 2023 Cervical Cancer Screening 01/11/2024 Pap [...] encounter Medical Devices Implanted Type Area Compliance Intern Device Identifier Shelf Expiration Date Model / Serial / Lot Device Perm Cntrl [id number] - [id number] Implanted:Qty: 2 on 09/27/2015 by Sharda Ruiz, Corey Rucker MD at OR [facility] Uterus [employer] 05/03/2017 [id number] / / [id number] documented as of this encounter Advance Directives [...] Power of Attor benoit? No Care Teams Irradiated Fuel Handler Relationship Specialty Start Date End Date Melissa Cruz PA-C [address] [place] [address] [place] [address] PCP - General Physician Global Mobility Specialist 06/02/21 documented as of this encounter
--- OUTSIDE RECORDS SUMMARY | 2024-08-09 23:55 | External Medical Summary | Summary of Care ---
Author Name Unknown Organization [facility] Address [address] [place] [address] Phone [phone] Care Team Providers Care Director Name Role Phone Melissa Cruz PA-C Primary Care Provider +1- [phone] Reason for Visit * Reason Onset Date Comments Advice 04/02/2024 Encounter Details Date Type Department Care Team ([facility] [place] [facility] st Contact Info) Description 04/02/2024 Telephone [place] [address] [place], [place] [phone] Melissa Cruz PA-C [facility] [address] [place] [address] [phone] Advice Allergies Active Allergy Reactions Criticality Noted Date Comments Aspirin 01/27/2014 Increased bleeding documented as of this encounter (statuses as of 04/14/2024) Medications Medication Sig Dispensed Refills Start Date [...] wounds. 45 g 3 03/19/2023 Active Nystatin 440606 UNIT/GM External Powder (Nystop) Apply topically to [...] as of this encounter (statuses as of 04/14/2024) Active Problems Problem Noted Date Diagnosed Date [...] as of this encounter (statuses as of 04/14/2024) Resolved Problems Problem Noted Date Diagnosed Date [...] as of this encounter (statuses as of 04/14/2024) Immunizations Name Administration Dates Next Due Pneumococcal Conjugate Vacci ne, 20-valent ([id number]) 12/04/2022 Pneumococcal Polysaccharide PPV23 (Pneumovax) 05/06/2011 Seasonal [...] No 03/10/2024 Does the household have a presbyterian española hospitallar source of income? (Household - for [...] encounter Miscellaneous Notes * Telephone Encounter - Latesha Sebastian OSA - 04/14/2024 7:43 AM EDT Faxed DME's to [facility]. 04/14/24 * Telephone Encounter - Melissa Cruz PA-C [...] 10:40 AM EDT Office Visit Wound Care, [address] [place] [address] Yuriy Hilario MD [address] [place] [address] 05/14/2024 1:40 PM EDT Office Visit [place] [address] [place] [address] Melissa Cruz PA-C [facility] [place] [address] 05/28/2024 9:00 AM EDT Office Visit Cardiology, [address] [address] Anna [facility]ames [facility] [address] [facility] [address] 06/06/2024 2:00 PM EDT Appointment Cardiac Studies, [address] [place] [address] 06/16/2024 1:25 PM EST NeuroDiagnostic Study Neurophysiology, [address] [place] [address] Ramiro Grove, DO [address] [place] [address] 10/09/2024 11:30 AM EST Hospital Encounter OR [facility], Operating Room, [facility] - 4th Floor [address] [facility] [place] [address] Bigg Wetzel MD [address] [facility] [place] [address] 10/09/2024 11:30 AM EST - 10/09/2024 12:31 PM EST Surgery OR [facility], Operating Room, [facility] - 4th Floor [address] [place] [address] Bigg Wetzel MD [address] [place] [address] COLONOSCOPY FLEXIBLE PROXIMAL DIAGNOSTIC Scheduled Procedures Name [...] 02/10/2009 COVID-19 Vaccine ( - season) 2024 Influenza Vaccine (FLU shot) (#1) [...] this encounter Medical Devices Implanted Type Area Farm General Manager Device Identifier Shelf Expiration Date Model / Serial / Lot Device Perm Cntrl [id number] - [id number] Implanted:Qty: 2 on 09/27/2015 by Sharda Ruiz, Corey Rucker MD at OR [facility] Uterus [employer] 05/03/2017 [id number] / / [id number] documented as of this encounter Advance Directives [...] of Attor benoit? No Care Teams Director Relationship Specialty Start Date End Date Melissa Cruz PA-C [address] [facility] [place] [address] PCP - General Physician Ruling Technician 06/02/21 documented as of this encounter
--- OUTSIDE RECORDS SUMMARY | 2024-08-09 23:56 | External Medical Summary | Summary of Care ---
Author Name Unknown Organization [facility] Address [address] [place] [address] Phone [phone] Care Team Providers Care Railroad Cook Name Role Phone Melissa Cruz PA-C Primary Care Provider +1- [phone] Reason for Visit * Reason Onset Date Comments Home Health 03/04/2024 Encounter Details Date Type Department Care Team (Late st Contact Info) Description 03/04/2024 Telephone [place] [address] [place], [place] [phone] Melissa Cruz PA-C [facility] [address] [place] [address] [phone] Home Health Allergies Active Allergy Reactions Criticality Noted Date Comments Aspirin 01/27/2014 Increased bleeding documented as of this encounter (statuses as of 03/05/2024) Medications Medication Sig Dispensed Refills Start Date [...] wounds. 45 g 3 03/19/2023 Active Nystatin 076082 UNIT/GM External Powder (Nystop) Apply topically to [...] the morning. 90 Tablet 2 07/26/2023 Active Cetirizine HCl 10 MG Oral Tablet (ZyrTEC)Indications:M ild persistent asthma without complication TAKE 1 TABLET BY MOUTH EVERY DAY 90 Tablet 1 09/21/2023 Active Potassium Chloride ER 10 MEQ Oral [...] wounds daily. 400 g 1 02/08/2024 Active Amoxicillin-Pot Clavulanate 875-125 MG Oral Tablet (Augmentin) Take 1 Tablet by mouth in the morning and 1 Tablet before bedtime. 20 Tablet 02/11/2024 Active predniSONE 10 MG Oral Tablet (Deltasone) Take 5 tabs for 2 days, 4 tabs for 2 days, 3 tabs for 2 days, 2 tabs for 2 days 1 tab for 2 days 30 Tablet 03/05/2024 Active documented as of this encounter (statuses as of 03/05/2024) Active Problems Problem Noted Date Diagnosed Date [...] as of this encounter (statuses as of 03/05/2024) Resolved Problems Problem Noted Date Diagnosed Date [...] as of this encounter (statuses as of 03/05/2024) Immunizations Name Administration Dates Next Due Pneumococcal Conjugate Vacci ne, 20-valent ([id number]) 12/04/2022 Pneumococcal Polysaccharide PPV23 (Pneumovax) 05/06/2011 Seasonal [...] Answer Date Recorded PHQ Adult Total Score 0 12/04/2022 Hunger Vital Sign Answer Date Recorded Within the past 12 months, y ou worried that your food would run out before you got the money to buy more. Never true 12/05/19 23 Within the past 12 months, t he food you bought just didn't last and you didn't have money to get more. Never true 12/04/2022 Utilities Answer Date Recorded Do you have trouble paying y our heating, water, or electric bill? (Adult - for ages 18 years and over) Not on file 01/22/2024 Is your family able to pay t he heat, water, or electric bill? (Household - for ages 0-17 years) Not on file 01/22/2024 Does your family have access to good internet? (Household - for ages 0-17 years) Not on file 01/22/2024 Social Connections Answer Date Recorded How often do you feel lonely or isolated from those around you? (Adult - for ages 18 years and over) Not on file 01/22/2024 Sex and Gender Information Value Date Recorded Sex Assigned at Female 12/04/2022 10:26 AM EDT Gender Identity Not on file Sexual Orientation Straight 12/04/2022 10 :26 AM EDT Job Start Date Occupation Industry Not on file Not on file Not on file documented as of this encounter Miscellaneous Notes * Telephone Encounter - Yolanda Pinedo LPN - 03/05/2024 10:03 AM EDT Patient aware and verbalized understanding, will comply. * Telephone Encounter - Julieth Mitchell CCMA - 03/05/2024 9:25 AM EDT Contacted pt. No answer, left v/m to return call. [phone] Please relay below message. * Telephone Encounter - Melissa Cruz PA-C - 03/05/2024 7:58 AM EDT We can try a round of prednisone to help decrease any acute inflammation. * Telephone Encounter - Neida Negrete LPN - 03/04/2024 3:12 PM EDT HH Concerns Renaldo PT, Calling from: [facility] Vitals: T 97.9 P 70 -- 2 skipped beats within 30 seconds RR 16 BP 148/82 SP O2 100% room air Pain 03/15. Left lower back pain radiating to groin and hip. (Radiating pain x 2- 3 days) Taking Tylenol, "takes the edge off". Transitions rolling in bed worsens pain, turning to left reduces rotationto 50%. No improvement in pain since PT has been seeing the patient. BP improved since this morning when ROSSANA Barnett called. Denies chest pains, SOB, palpitations, fluttering, headaches, visual changes, dizziness. Scheduled appt for 03/10 for pain and BP. Please advise prior to appt if appropriate. Call back Mica with any advice or orders at [phone] Please fax new orders. [facility] Home Health * Telephone Encounter - Andie Perez LPN - 03/04/2024 9:14 AM EDT HH Concerns pavan RN, Calling from: [facility] Report/Concerns of: BP Symptoms: none Vitals: T 98 P 74 RR 16 BP 162/84 SP O2 97 Lung sounds clear Weight n/a Blood sugar n/a Narrative: Pavan calling from [facility] HH. Patient reports the doctor is aware of patients left lowerback pain. Rates the pain as a 6/10 Has been ongoing for a couple of weeks. Physical Therapy thinks it is muscular. Pavan is questioning if this has increased her blood pressure? She is only taking tylenol. Please advise. Normally her blood pressure runs 110 to 120 over 70 to 80. Therapy will be in later today. She will have him call with the blood pressure. Call back patient with any advice or orders at [phone] Please fax new orders to [facility] Home Health documented in this encounter Plan of Treatment Upcoming Encounters Date Type Department Care Team (Latest Contact Info) Description 03/10/2024 11:40 AM EDT Office Visit [place] [address] [address] [place] [address] Melissa Cruz PA-C [address] [place] [address] [address] [place] [address] 03/17/2024 12:30 PM EDT Appointment Radiology, [place] [address] [place] [address] 04/16/2024 8:00 AM EDT Hospital Encounter OR [facility], Operating Room, [facility] - 4th Floor [address] [facility] [place] [address] Usha Almeida, DO [address] [place] [address] 04/16/2024 8:00 AM EDT - 04/16/2024 8:28 AM EDT Surgery OR [facility], Operating Room, [facility] - 4th Floor [address] [facility] [place] [address] Usha Almeida, [address] [place] [address] COLONOSCOPY FLEXIBLE PROXIMAL DIAGNOSTIC 04/21/2024 10:40 AM EDT Office Visit Wound Care, [facility] [address] [place] [place] [address] Yuriy Hilario MD [address] [place] [address] 05/14/2024 1:40 PM EDT Office Visit [place] [address] [place] [address] Melissa Cruz PA-C [address] [place] [address] Scheduled Procedures Name Priority Associated Diagnoses Date/Ti me COLONOSCOPY FLEXIBLE PROXIMAL DIAGNOSTIC Screening for colon cancer 04/16/2024 8:00 AM EDT Health Maintenance Due Date Last Done Comments Hepatitis B Vaccine (1 of 3 - 19+ 3-dose series) 01/12/1995 HPV/Co-Test 01/12/2006 Mammogram 06/06/2019 06/06/2018, 09/18/2016 Cologuard 01/12/2021 Colonoscopy 01/12/2021 12/02/2008 Colorectal Cancer Screening 01/12/2021 Fecal Occult Blood Test 01/12/2021 Sigmoidoscopy 01/12/2021 COVID-19 Vaccine ( season) 2023 Depression Monitoring 12/05/2023 12/04/2022 Cervical Cancer Screening 01/11/2024 Pap Smear 01/11/2024 01/10/2021, 03/11/2013, 02/10/2009 *SPIROMETRY ONCE FOR ASTHMA-ADULT 02/17/2024 Influenza Vaccine (FLU shot) (#1) 2024 06/25/2023, 06/05/2022, 06/02/2021, Additional history exists DTaP,Tdap,and Td Vaccines (2 - Td or Tdap) 01/20/2025 01/20/2015 Diabetes Screening 10/18/2026 10/19/2023, 1 , 05/24/2023, Additional history exists Lipid Panel 05/24/2028 05/24/2023, 05/07, 08/18/2017, Additional history exists HIV Screening Completed 10/21/2020, 05/12/2019 Pneumococcal Vaccine: Pediatrics (0 to 5 Years) and At-Risk Patients (6 to 64 Years) Completed 12/04/2022, 05/06/2011 Hepatitis C Screening Completed 05/24/2023 , 05/24/2023, 05/24/2023 HPV (Gardasil) Vaccine Aged Out No lo nger eligible based on patient's age to complete this topic MENINGOCOCCAL (MENACTRA/MENVEO) Aged Out No longer eligible based on patient's age to complete this topic documented as of this encounter Medical Devices Implanted Type Area Ip Counsel Device Identifier Shelf Expiration Date Model / Serial / Lot Device Perm Cntrl [id number] - [id number] Implanted:Qty: 2 on 09/27/2015 by Sharda Ruiz, Corey Rucker MD at OR [facility] Uterus [employer] 05/03/2017 [id number] / / [id number] documented as of this encounter Advance Directives [...] Power of Attor benoit? No Care Teams Railroad Cook Relationship Specialty Start Date End Date Melissa Cruz PA-C [address] [facility] [place] [address] PCP - General Physician Peripatologist 06/02/21 documented as of this encounter
--- OUTSIDE RECORDS SUMMARY | 2024-08-09 23:56 | External Medical Summary | Summary of Care ---
Author Name Unknown Organization [facility] Address [address] [place] [address] Phone [phone] Care Team Providers Care Narrow Gauge Brakeman Name Role Phone Melissa Cruz PA-C Primary Care Provider +1- [phone] Reason for Visit * Reason Onset Date Comments Med Request 03/03/2024 Encounter Details Date Type Department Care Team (Late st Contact Info) Description 03/03/2024 Telephone [place] [address] [address] [place], [place] [phone] Melissa Cruz PA-C [facility]2 [facility] [address] [place], [place] [phone] Med Request Allergies Active Allergy Reactions Criticality Noted Date Comments Aspirin 01/27/2014 Increased bleeding documented as of this encounter (statuses as of 03/06/2024) Medications Medication Sig Dispensed Refills Start Date [...] wounds. 45 g 3 03/19/2023 Active Nystatin 927476 UNIT/GM External Powder (Nystop) Apply topically to [...] Tablet before bedtime. 20 Tablet 02/11/2024 Active Diclofenac Sodium 1 % External Gel (Voltaren) Apply topically to affected area 4 times a day. 350 g 1 03/06/2024 Active documented as of this encounter (statuses as of 03/06/2024) Active Problems Problem Noted Date Diagnosed Date [...] as of this encounter (statuses as of 03/06/2024) Resolved Problems Problem Noted Date Diagnosed Date [...] as of this encounter (statuses as of 03/06/2024) Immunizations Name Administration Dates Next Due Pneumococcal Conjugate Vacci ne, 20-valent ([id number]) 12/04/2022 Pneumococcal Polysaccharide PPV23 (Pneumovax) 05/06/2011 Seasonal [...] encounter Miscellaneous Notes * Telephone Encounter - Adeline Contreras PHARM Tech - 03/03/2024 9:20 AM EDT Patient requesting refills for diclofenac sodium gel . Upon chart review, medication is listed as discontinued, with discontinuation reason as "none". Please advise if you wish to continue this therapy for the patient. Thanks, Adeline Cotnreras Truck Assembler [facility] 03/03/2024,9:21 AM documented in this encounter Plan of Treatment Upcoming Encounters Date Type Department Care Team (Latest Contact Info) Description 03/10/2024 11:40 AM EDT Office Visit [facility] [address] [place] [address] Melissa Cruz PA-C [address] [facility] [address] [place] [address] 03/17/2024 12:30 PM EDT Appointment Radiology, [address] [place] [address] 04/16/2024 8:00 AM EDT Hospital Encounter OR [facility], Operating [address] Floor 400 [facility] [place] [address] Usha Almeida, DO [address] [place] [address] 04/16/2024 8:00 AM EDT - 04/16/2024 8:28 AM EDT Surgery OR [facility], Operating [address] Floor 400 [facility] [place] [address] Usha Almeida, DO [address] [place] [address] COLONOSCOPY FLEXIBLE PROXIMAL DIAGNOSTIC 04/21/2024 10:40 AM EDT Office Visit Wound Care, [address] [place] [address] Yuriy Hilario MD [address] [place] [address] 05/14/2024 1:40 PM EDT [facility] Visit [facility], [place] [address] [place] [address] Melissa Cruz PA-C [address] [place] [address] Scheduled Procedures Name Priority Associated Diagnoses Date/Ti [...] this encounter Medical Devices Implanted Type Area Motor Coach Chauffeur Device Identifier Shelf Expiration Date Model / Serial / Lot Device Perm Cntrl [id number] - [id number] Implanted:Qty: 2 on 09/27/2015 by Sharda Ruiz, Corey Rucker MD at OR [facility] Uterus [employer] 05/03/2017 [id number] / / [id number] documented as of this encounter Advance Directives [...] Power of Attor benoit? No Care Teams Narrow Gauge Brakeman Relationship Specialty Start Date End Date Melissa Cruz PA-C [address] [place] [id number] [place] [address] PCP - General Physician Hot Baller 06/02/21 documented as of this encounter
--- OUTSIDE RECORDS SUMMARY | 2024-08-09 23:56 | External Medical Summary ---
Author Name Unknown Address Unknown Organization K1F:[facility] - [address] [place] [address] Laboratory Report Ordering Provider Test Date Status CHARISMA HAY 03/11/2024 17:12:00 Final Observation Date Value Abnormality Reference (Units ) Status SYNC LEUKOCYTES IN BLOOD BY AUTOMATED COUNT 03/11/2024 17:12:00 6.23 4.00-10.80 (K/uL) Final Segs 03/11/2024 17:12:00 78.9 Above high normal 40.0-75.0 (%) Final Lymphs % 03/11/2024 17:12:00 17.2 Below low normal 18.0-42.0 (%) Final Monos 03/11/2024 17:12:00 3.4 1.0-11.0 (%) Final Eosinophils 03/11/2024 17:12:00 0.0 0.0-6.0 (%) Final Basos 03/11/2024 17:12:00 0.2 0.0-2.0 (%) Final Immature Granulocyte, Percent 03/11/2024 17:12:00 0.3 0.0-2.0 (%) Final Absolute Segs 03/11/2024 17:12:00 4.92 1.80-7.70 (K/uL) Final Lymphs, absolute 03/11/2024 17:12:00 1.07 1.00-4.80 (K/ul) Final Monos, Abs 03/11/2024 17:12:00 0.21 0.00-1.10 (K/uL) Final Eos, Abs 03/11/2024 17:12:00 0.00 0.00-0.70 (K/uL) Final Basos, Abs 03/11/2024 17:12:00 0.01 0.00-0.20 (K/uL) Final Immature Granulocytes, Number 03/11/2024 17:12:00 0.02 0.00-0.20 (K/uL) Final Performing Location [facility] - [address] [place] [address]
--- OUTSIDE RECORDS SUMMARY | 2024-08-09 23:56 | External Medical Summary | Summary of Care ---
Author Name Unknown Organization [facility] Address [address] [place] [address] Phone [phone] Care Team Providers Care [employer] Scout Name Role Phone Melissa Cruz PA-C Primary Care Provider +1- [phone] Reason for Visit * Reason Onset Date Comments Home Health 02/26/2024 Encounter Details Date Type Department Care Team (Late st Contact Info) Description 02/26/2024 Telephone [place] [address] [place], [place] [phone] Melissa Cruz PA-C [facility]2 [facility] [address] [place] [address] [phone] Home Health Allergies Active Allergy Reactions Criticality Noted Date Comments Aspirin 01/27/2014 Increased bleeding documented as of this encounter (statuses as of 02/26/2024) Medications Medication Sig Dispensed Refills Start Date [...] wounds. 45 g 3 03/19/2023 Active Nystatin 622861 UNIT/GM External Powder (Nystop) Apply topically to [...] Tablet before bedtime. 20 Tablet 02/11/2024 Active documented as of this encounter (statuses as of 02/26/2024) Active Problems Problem Noted Date Diagnosed Date [...] as of this encounter (statuses as of 02/26/2024) Resolved Problems Problem Noted Date Diagnosed Date [...] as of this encounter (statuses as of 02/26/2024) Immunizations Name Administration Dates Next Due Pneumococcal Conjugate Vacci ne, 20-valent ([id number]) 12/04/2022 Pneumococcal Polysaccharide PPV23 (Pneumovax) 05/06/2011 Seasonal [...] encounter Miscellaneous Notes * Telephone Encounter - Neida Negrete LPN - 02/26/2024 12:52 PM EDT HH Concerns Renaldo PT, Calling from: [facility] Report/Concerns of: BP - update from this morning. BP - at rest beginning of her visit right forearm 136/78 After walking and leg ROM 30 min after initial BP- right forearm 142/92 Pain 7/10 at rest. Spasm and tenderness of left paraspinal area. No Tylenol since early this AM. Patient did report that after being up walking and ROM it did help her pain, once we she sits the pain worsens. Narrative: Patient continues deny having any symptoms beyond her pain in her lower back. Renaldo is going to provide the patient with exercises for her lower back. Advised patient to call our office for an appt if she becomes symptomatic. She doesn't have a BP monitor at home. PT and OT once weekly, Nursing twice weekly -- next visit 02/28. * Telephone Encounter - Neida Negrete LPN - 02/26/2024 9:35 AM EDT HH Concerns ErickaRChang, Calling from: [facility] Report/Concerns of: BP Symptoms: none Vitals: T 98.7 P 77 RR 16 BP 158/88 SP O2 100 % on room air Lung sounds - clear Significant BLE edema ongoing, open areas, wraps on her legs. No improvement or worsening in the last year. Denies lightheadedness, headache, visual changes, dizziness, weakness, chest pain, SOB. Patient's BP is typically 110-120 / 60-70 when HH see's her. Patient c/o left lower back pain, she believes it's from a pulled muscle. Pain started on 02/18 after moving in bed. No UTI symptoms. Rates pain 7/10, Tylenol reduces the pain to 4/10. Positional, worse with movement. Certain positions reduce the pain though. Good appetite, BM yesterday. PT see's patient this afternoon, BP will be rechecked. If her BP is still elevated at that time, the PT will call back. Call back patient with any advice or orders at [phone] Please fax new orders to [facility] Home Health documented in this encounter Plan of Treatment Upcoming Encounters Date Type Department Care Team (Latest Contact Info) Description 04/16/2024 8:20 AM EDT Hospital Encounter [facility], Operating Room, [facility] - 4th Floor [address] [place] [address] Usha Almeida, DO [address] [place] [address] 04/16/2024 8:20 AM EDT - 04/16/2024 8:58 AM EDT Surgery OR [facility], Operating Room, [facility] - 4th Floor [address] [place] [address] Usha Almeida, DO [address] [place] [address] COLONOSCOPY FLEXIBLE PROXIMAL DIAGNOSTIC Scheduled Procedures Name Priority Associated Diagnoses Date/Ti me COLONOSCOPY FLEXIBLE PROXIMAL DIAGNOSTIC Screening for colon cancer 04/16/2024 8:20 AM EDT Health Maintenance Due Date Last Done Comments Hepatitis B Vaccine (1 of 3 - 19+ 3-dose series) 01/12/1995 HPV/Co-Test 01/12/2006 Mammogram 06/06/2019 06/06/2018, 09/18/2016 Cologuard 01/12/2021 Colonoscopy 01/12/2021 12/02/2008 Colorectal Cancer Screening 01/12/2021 Fecal Occult Blood Test 01/12/2021 Sigmoidoscopy 01/12/2021 COVID-19 Vaccine ( season) 2023 Depression Monitoring 12/05/2023 12/04/2022 Cervical Cancer Screening 01/11/2024 Pap Smear 01/11/2024 01/10/2021, 10/05, 02/10/2009 *SPIROMETRY ONCE FOR ASTHMA-ADULT 02/17/2024 Influenza [...] this encounter Medical Devices Implanted Type Area Injector Assembler Device Identifier Shelf Expiration Date Model / Serial / Lot Device Perm Cntrl [id number] - [id number] Implanted:Qty: 2 on 09/27/2015 by Sharda Ruiz, Corey Rucker MD at OR [facility] Uterus [employer] 05/03/2017 [id number] / / [id number] documented as of this encounter Advance Directives [...] Power of Attor benoit? No Care Teams [employer] Scout Relationship Specialty Start Date End Date Melissa Cruz PA-C [address] [facility] [address] [facility] [place] [address] PCP - General Physician Material Controller 06/02/21 documented as of this encounter
--- OUTSIDE RECORDS SUMMARY | 2024-08-09 23:56 | External Medical Summary | Summary of Care ---
Author Name Unknown Organization [facility] Address [address] [place] [address] Phone [phone] Care Team Providers Care Wool Mixer Name Role Phone Melissa Cruz PA-C Primary Care Provider +1- [phone] Reason for Visit * Reason Onset Date Comments Appointment 02/29/2024 LE wounds--above the knee Encounter Details Date Type Department Care Team ([facility] st Contact Info) Description 02/29/2024 Telephone Wound Care, [facility] [address] [place] [address] Services, Scheduling [address] [place] [address] Appointment (LE wounds--above the knee) Allergies Active Allergy Reactions Criticality Noted Date Comments Aspirin 01/27/2014 Increased bleeding documented as of this encounter (statuses as of 02/29/2024) Medications Medication Sig Dispensed Refills Start Date [...] wounds. 45 g 3 03/19/2023 Active Nystatin 505976 UNIT/GM External Powder (Nystop) Apply topically to [...] as of this encounter (statuses as of 02/29/2024) Active Problems Problem Noted Date Diagnosed Date [...] as of this encounter (statuses as of 02/29/2024) Resolved Problems Problem Noted Date Diagnosed Date [...] as of this encounter (statuses as of 02/29/2024) Immunizations Name Administration Dates Next Due Pneumococcal Conjugate Vacci ne, 20-valent ([id number]) 12/04/2022 Pneumococcal Polysaccharide PPV23 (Pneumovax) 05/06/2011 Seasonal [...] Telephone Encounter - Kalyn Rivera OSA - 02/29/2024 1:22 PM EDT LM for patient stating the wound appointment is scheduled with Dr. Hilario 03/11/24 at 8:40 am andto call back if this does not work for her. * Telephone Encounter - Brittney Patterson, JORGE A - 02/29/2024 1:09 PM EDT Pt was calling back to rescheduled her cancelled appointment with Dr. Hilario. LE wounds--above the knee * Telephone Encounter - Kalyn Rivera OSA - 02/29/2024 1:01 PM EDT LM for patient to call back to schedule a new wound appointment with Dr. Hilario for LLE wounds (above the knee). * Telephone Encounter - Katrina De La Garza OSA - 02/29/2024 11:28 AM EDT Hello, Patient is calling to reschedule her wound appt with Dr. Hilario she had scheduled for 02/25/24. Please advise. Thank you, JORGE A Lyn documented in this encounter Plan of Treatment Upcoming Encounters Date Type Department Care Team (Latest Contact Info) Description 03/11/2024 8:40 AM EDT Office Visit [facility]ound [facility], [facility] [address] Yuriy Hilario MD [address] [place] [address] 03/17/2024 12:30 PM EDT Appointment Radiology, [place] [address] [place] [address] 04/16/2024 8:20 AM EDT Hospital Encounter OR [facility], Operating Room, [facility] - 4th Floor 400 [facility] [address] Usha Almeida, DO [address] [place] [address] 04/16/2024 8:20 AM EDT - 04/16/2024 8:58 AM EDT Surgery OR [facility], Operating Room, [facility] - 4th Floor [address] [place] [address] Usha Almeida, DO [address] [place] [address] COLONOSCOPY FLEXIBLE PROXIMAL DIAGNOSTIC 05/14/2024 1:40 PM EDT Office Visit [place] [address] [place] [address] Melissa Cruz PA-C [address] [place] [address] Scheduled Procedures Name Priority Associated Diagnoses Date/Ti [...] Sigmoidoscopy 01/12/2021 COVID-19 Vaccine (2022- season) 2023 Depression Monitoring 12/05/2023 12/04/2022 Cervical [...] this encounter Medical Devices Implanted Type Area Podiatrist Device Identifier Shelf Expiration Date Model / Serial / Lot Device Perm Cntrl [id number] - [id number] Implanted:Qty: 2 on 09/27/2015 by Sharda Ruiz, Corey Rucker MD at OR [facility] Uter[employer] 05/03/2017 [id number] / / [id number] documented as of this encounter Advance Directives [...] Power of Attor benoit? No Care Teams Wool Mixer Relationship Specialty Start Date End Date Melissa Cruz PA-C [address] [facility] [address] [place] [address] PCP - General Physician Commercial Litigation Associate 06/02/21 documented as of this encounter
--- OUTSIDE RECORDS SUMMARY | 2024-08-09 23:56 | External Medical Summary | Summary of Care ---
Author Name Unknown Organization [facility] Address [address] [place] [address] Phone [phone] Care Team Providers Care Smart Grid Engineer Name Role Phone Melissa Wilkins PA-C Primary Care Provider +1- [phone] Reason for Visit * Reason Comments eRx-Medication Refill Encounter Details Date Type Department Care Team ([facility] st Contact Info) Description 03/15/2024 Refill [place] [address] [place] [address] Melissa Wilkins PA-C [facility] [address] [place] [address] Mild persistent asthma without complication Allergies Active Allergy Reactions Criticality Noted Date Comments Aspirin 01/27/2014 Increased bleeding documented as of this encounter (statuses as of 03/17/2024) Medications Medication Sig Dispensed Refills Start Date [...] wounds. 45 g 3 3 Active Nystatin 357486 UNIT/GM External Powder (Nystop) Apply topically to [...] EVERY DAY 90 Tablet 1 4 Active Cetirizine HCl 10 MG Oral Tablet (ZyrTEC)Indications :Mild persistent asthma without complication TAKE 1 TABLET BY MOUTH EVERY DAY 90 Tablet 1 4 03/17/20 24 Discontinued documented as of this encounter (statuses as of 03/17/2024) Active Problems Problem Noted Date Diagnosed Date [...] as of this encounter (statuses as of 03/17/2024) Resolved Problems Problem Noted Date Diagnosed Date [...] as of this encounter (statuses as of 03/17/2024) Immunizations Name Administration Dates Next Due Pneumococcal Conjugate Vacci ne, 20-valent ([id number]) 12/04/2022 Pneumococcal Polysaccharide PPV23 (Pneumovax) 05/06/2011 Seasonal [...] encounter Miscellaneous Notes * Telephone Encounter - Cem Valentino RPh - 03/17/2024 10:12 AM EDT Signed Prescriptions: Disp Refills Cetirizine HCl 10 MG Oral Tablet (ZyrTEC) 90 Tab*1 Sig: TAKE 1 TABLET BY MOUTH EVERY DAYAuthorizing Provider: MELISSA WILKINS User: CEM VALENTINO- documented in this encounter Plan of Treatment Upcoming Encounters Date Type Department Care Team (Latest Contact Info) Description 03/19/2024 10:15 AM EDT Appointment Cardiac Studies, [address] [place] [address] Gl, Truckload Checker [facility] [place] [address] 04/16/2024 8:00 AM EDT Hospital Encounter OR [facility], Operating Room, [facility] - 4th Floor [address] [place] [address] Usha Almeida, DO [address] [place] [address] 04/16/2024 8:00 AM EDT - 04/16/2024 8:28 AM EDT Surgery OR [facility], Operating Room, [facility] - 4th Floor [address] [place] [address] Usha Almeida, DO [address] [place] [address] COLONOSCOPY FLEXIBLE PROXIMAL DIAGNOSTIC 04/21/2024 10:40 AM EDT Office Visit Wound Care, [facility] 400 [facility] [place] [address] Yuriy Hilario MD [address] [place] [address] [place] [address] 05/14/2024 1:40 PM EDT Office Visit [place] [address] [place] [address] Melissa Wilkins PA-C [address] [place] [address] [place] [address] 05/28/2024 9:00 AM EDT Office Visit Cardiology, [address] [place] [address] Anna Adames MD 400 [facility] [place] [address] 06/06/2024 2:00 PM EDT Appointment Cardiac Studies, [facility] 400 [facility] [place] [address] 06/16/2024 1:25 PM EST NeuroDiagnostic Study Neurophysiology, [place] 21 [facility] [place] [address] Ramiro Grove, DO 200 [facility], [place] [address] Scheduled Procedures Name Priority Associated Diagnoses Date/Ti [...] Sigmoidoscopy 01/12/2021 COVID-19 Vaccine ( season) 2023 Cervical Cancer Screening 01/11/2024 Pap [...] this encounter Medical Devices Implanted Type Area Front Window Cashier Device Identifier Shelf Expiration Date Model / Serial / Lot Device Perm Cntrl [id number] - [id number] Implanted:Qty: 2 on 09/27/2015 by Sharda Ruiz, Corey Rucker MD at OR [facility] Uterus [employer] 05/03/2017 [id number] / / [id number] documented as of this encounter Visit Diagnoses [...] Power of Attor benoit? No Care Teams Smart Grid Engineer Relationship Specialty Start Date End Date Melissa Wilkins PA-C [address] [place] [address] [place] [address] PCP - General Physician Supervisor Fish Processing 06/02/21 documented as of this encounter
--- OUTSIDE RECORDS SUMMARY | 2024-08-09 23:56 | External Medical Summary | Summary of Care ---
Author Name Unknown Organization [facility] Address [address] [place] [address] Phone [phone] Care Team Providers Care Handyman Name Role Phone Melissa Cruz PA-C Primary Care Provider +1- [phone] Reason for Visit * Reason Onset Date Comments Home Health 03/11/2024 Encounter Details Date Type Department Care Team (Late st Contact Info) Description 03/11/2024 Telephone [place] [address] [place], [place] [id number] Melissa Cruz PA-C [facility]2 [facility] [address] [place] [id number] Home Health Allergies Active Allergy Reactions Criticality Noted Date Comments Aspirin 01/27/2014 Increased bleeding documented as of this encounter (statuses as of 03/11/2024) Medications Medication Sig Dispensed Refills Start Date [...] wounds. 45 g 3 03/19/2023 Active Nystatin 411113 UNIT/GM External Powder (Nystop) Apply topically to [...] for Muscle spasms. 42 Tablet 03/10/2024 Active documented as of this encounter (statuses as of 03/11/2024) Active Problems Problem Noted Date Diagnosed Date [...] as of this encounter (statuses as of 03/11/2024) Resolved Problems Problem Noted Date Diagnosed Date [...] as of this encounter (statuses as of 03/11/2024) Immunizations Name Administration Dates Next Due Pneumococcal Conjugate Vacci ne, 20-valent ([id number]) 12/04/2022 Pneumococcal Polysaccharide PPV23 (Pneumovax) 05/06/2011 Seasonal [...] Telephone Encounter - Yolanda Pinedo LPN - 03/11/2024 9:01 AM EDT HH Concerns Ericka RN, Calling from: [facility] Report/Concerns of: BP Symptoms: Irregular HR with palpitations Vitals: T 99.0 P 70 RR 16 BP 148/86 SP O2 99% RA Lung sounds CTA and has no SOB Weight NA Blood sugar NA Narrative: States that for the last week the pt has been having an irregular HR. Pt reported that last night she could feel palpations with the irregular HR. Ericka noted the irregularity today and last week when listening to the pt's heart rate. Last week she thought the irregularity was a fluke until Physical Therapy confirmed it and they called into PCP office. States that this is new for the pt, as she has been seeing the pt for the last year. Called PCP office spoke with Janeth and ED was advised per PCP. Call with Ericka dropped. Called pt, made her and Ericka both aware. Pt will comply and go to theER. KAYLAN documented in this encounter Plan of Treatment Upcoming Encounters Date Type Department Care Team (Latest Contact Info) Description 03/12/2024 1:00 PM EDT Imaging Radiology, [place] [address] [place] [address] 03/17/2024 12:30 PM EDT Appointment Radiology, [place] [facility] [place] [address] 04/16/2024 8:00 AM EDT Hospital Encounter OR [facility], Operating Room, [facility] - 4th Floor 400 [facility] [address] Usha Almeida, DO [address] [place] [address] 04/16/2024 8:00 AM EDT - 04/16/2024 8:28 AM EDT Surgery OR [facility], Operating Room, [facility] - 4th Floor [address] [place] [address] Usha Almeida, DO [address] [place] [address] COLONOSCOPY FLEXIBLE PROXIMAL DIAGNOSTIC 04/21/2024 10:40 AM EDT Office Visit Wound Care, [facility] 400 [facility] [address] Yuryi Hilario MD 27 [facility] [place] [address] 05/14/2024 1:40 PM EDT Office Visit [place] [address] [place] [address] Melissa Cruz PA-C [facility]2 [facility] [address] [place] [address] 06/16/2024 1:25 PM EST NeuroDiagnostic Study Neurophysiology, [place] 21 [facility] [place] [address] Ramiro Grove, DO [address] [place] [address] Scheduled Procedures Name Priority Associated Diagnoses Date/Ti [...] 01/20/2015 Depression Monitoring 03/10/2025 03/10/2024 Diabetes Screening 10/18/2026 10/19/2023, 1 , 05/24/2023, [...] Medical Devices Implanted Type Area Machine Operator Farmworker Device Identifier Shelf Expiration Date Model / Serial / Lot Device Perm Cntrl [id number] - [id number] Implanted:Qty: 2 on 09/27/2015 by Sharda Ruiz, Corey Rucker MD at OR [facility] Uterus [employer] 05/03/2017 [id number] / / [id number] documented as of this encounter Advance Directives [...] Power of Attor benoit? No Care Teams Handyman Relationship Specialty Start Date End Date Melissa Cruz PA-C [address] [place] [address] [place] [address] PCP - General Physician Reaming Machine Operator For Plastic 06/02/21 documented as of this encounter
--- OUTSIDE RECORDS SUMMARY | 2024-08-09 23:56 | External Medical Summary ---
Author Name Unknown Address Unknown Organization K1F:LABORATORY [facility] - [address] [place] [address] Laboratory Report Ordering Provider Test Date Status CHARISMA HAY 03/11/2024 19:12:00 Final Observation Date Value Abnormality Reference (Units ) Status Troponin T 03/11/2024 19:12:00 8 <=14 (ng/ L) Final Result may be falsely decrea sed due to hemolysis. Performing Location LABORATORY [facility] - [address] [place] [address]
--- OUTSIDE RECORDS SUMMARY | 2024-08-09 23:56 | External Medical Summary ---
Author Name Unknown Address Unknown Organization K1F:LABORATORY [facility] - [address] [place] [address] [facility] [address] Laboratory Report Ordering Provider Test Date Status CHARISMA HAY 03/11/2024 17:12:00 Final hCG can serve as a screening [...] +Beta subunit [Units/volume] in Serum or Plasma 03/11/2024 17:12:00 <0.3 <=1.0 (mIU/mL) Final Performing Location LABORATORY [facility] - [address] [facility] [address]
--- OUTSIDE RECORDS SUMMARY | 2024-08-09 23:56 | External Medical Summary ---
Author Name Unknown Address Unknown Organization K1F:LABORATORY [facility] - [address] [place] [address] Laboratory Report Ordering Provider Test Date Status CHARISMA HAY 03/11/2024 17:12:00 Final Exclude Heart Failure: <300 pg/mL
Diagnose Heart Failure:
Age <50 yr: >450 pg/mL
50-75 yr: >900 pg/mL
>75 yr: >1800 pg/mL
GFR is 30-59 mL/min: >1200 pg/mL or Age- adjusted values
GFR <30 mL/min: do not use, not reliable

Prognostic threshold: 1000 pg/mL Observation Date Value Abnormality Reference (Units ) Status BNP, Pro-hormone 03/11/2024 17:12:00 1320 Above high no rmal <300 (pg/mL) Final Performing Location LABORATORY [facility] - [address] [place] [address]
--- OUTSIDE RECORDS SUMMARY | 2024-08-09 23:56 | External Medical Summary | Summary of Care ---
Author Name Unknown Organization [facility] Address [address] [place] [address] Phone [phone] Care Team Providers Care Reserve Operator Name Role Phone Melissa Cruz PA-C Primary Care Provider +1- [phone] Reason for Visit * Reason Onset Date Comments Appointment 02/29/2024 LE wounds--above the knee Encounter Details Date Type Department Care Team ([facility] st Contact Info) Description 02/29/2024 Telephone Wound Care, [facility] [address] [place] [address] Services, Scheduling [address] [place] [address] Appointment (LE wounds--above the knee) Allergies Active [...] wounds. 45 g 3 03/19/2023 Active Nystatin 178885 UNIT/GM External Powder (Nystop) Apply topically to [...] Next Due Pneumococcal Conjugate Vacci ne, 20-valent ([id number]) 12/04/2022 Pneumococcal Polysaccharide PPV23 (Pneumovax) 05/06/2011 Seasonal [...] encounter Miscellaneous Notes * Telephone Encounter - Brittney Patterson OSA - 02/29/2024 1:09 PM EDT Pt was calling back to rescheduled her cancelled appointment with Dr. Hilario. LE wounds--above the knee * Telephone Encounter - Kalyn Rivera OSA - 02/29/2024 1:01 PM EDT LM for patient to call back to schedule a new wound appointment with Dr. iHlario for LLE wounds (above the knee). * Telephone Encounter - Katrina De La Garza OSA - 02/29/2024 11:28 AM EDT Charity, Patient is calling to reschedule her wound appt with Dr. Hilario she had scheduled for 02/25/24. Please advise. Thank you, JORGE A Lyn documented in this encounter Plan of Treatment Upcoming Encounters Date Type Department Care Team (Latest Contact Info) Description 03/17/2024 12:30 PM EDT Appointment Radiology, [place] [address] [place] [address] 04/16/2024 8:20 AM EDT Hospital Encounter OR [facility], Operating Room, [facility] - 4th Floor [address] [place] [address] Usha Almeida, DO [address] [place] [address] 04/16/2024 8:20 AM EDT - 04/16/2024 8:58 AM EDT Surgery OR [facility], Operating Room, [facility] - 4th Floor [address] [place] [address] Usha Almeida, DO [address] [place] [address] COLONOSCOPY FLEXIBLE PROXIMAL DIAGNOSTIC 05/14/2024 1:40 PM EDT Office Visit [place] [address] [place] [address] Melissa Cruz [facility] [address] [place] [address] Scheduled Procedures Name Priority Associated Diagnoses Date/Ti [...] this encounter Medical Devices Implanted Type Area Associate Programmer Device Identifier Shelf Expiration Date Model / Serial / Lot Device Perm Cntrl [id number] - [id number] Implanted:Qty: 2 on 09/27/2015 by Sharda Ruiz, Corey Rucker MD at OR [facility] Uterus [employer] 05/03/2017 [id number] / / [id number] documented as of this encounter Advance Directives [...] Power of Attor benoit? No Care Teams Reserve Operator Relationship Specialty Start Date End Date Melissa Cruz PA-C [address] [facility] [address] [place] [address] PCP - General Physician Project Management Intern 06/02/21 documented as of this encounter
--- OUTSIDE RECORDS SUMMARY | 2024-08-09 23:56 | External Medical Summary | Summary of Care ---
Author Name Unknown Organization [facility] Address [address] [place] [address] Phone [phone] Care Team Providers Care Truck Shop Mechanic Name Role Phone Melissa Cruz Chang FONSECA Primary Care Provider [phone]- [phone] Reason for Referral * Precert (Within 10 days (routine)) - Pending Review Specialty Diagnoses / Procedures Referred By Phylicia zambrano Referred To Contact Cardiac Studies Diagnoses SOB (shortness of breath) Heart palpitations Procedures ECHO, COMPLETE (2D), TRANS-THORACIC Eneida Garza PA-C [address] [place] [address] Referral ID Status Reason Start Date Expiration Date Visits Requested Visits Authorized [id number] Pending Review Precert 03/11/2024 999 999 * Evaluate & Treat - Unlimited Visits (Within 10 days (routine)) - Pending Review Specialty Diagnoses / Procedures Referred By Phylicia zambrano Referred To Contact Cardiovascular Medicine / Cardiology Diagnoses Heart palpitations Eneida Garza PA-C [address] [place] [address] Referral ID Status Reason Start Date Expiration Date Visits Requested Visits Authorized [id number] Pending Review Specialty Services Required 03/11/2024 999 [id number] Question Answer Referral Priority Within 10 days (routine) Where should this appointment be scheduled? [facility] To which of the following clinics are you referring your patient? General Cardiology Clinic Comments Discharge Order Reason for Visit * Reason Comments Other * Auth/Cert Specialty Diagnoses / Procedures Referred By Phylicia zambrano Referred To Contact [facility] [address] [facility] [place] [address] Phone: [phone] Emergency Medicine [facility] [address] [facility] [place] [address] Referral ID Status Reason Start Date Expiration Date Visits Re quested Visits Authorized [id number] Encounter Details Date Type Department Care Team (Late st Contact Info) Description 03/11/2024 4:13 PM EDT - 03/11/2024 9:00 PM EDT Emergency [facility] Emergency Department ([facility]) [address] [place] [address] Cem Calhoun MD [address] [place] [address] Heart palpitations (Primary Dx); SOB (shortness of breath); Screening for cardiovascular condition; Elevated brain natriuretic peptide (BNP) level Discharge Disposition: Home - Self Care Allergies Active Allergy Reactions Criticality Noted Date Comments Aspirin 01/27/2014 Increased bleeding documented as of this encounter (statuses as of 03/12/2024) Medications Medication Sig Dispensed Refills Start Date [...] wounds. 45 g 3 03/19/2023 Active Nystatin [id number] UNIT/GM External Powder (Nystop) Apply topically to [...] as of this encounter (statuses as of 03/12/2024) Active Problems Problem Noted Date Diagnosed Date [...] as of this encounter (statuses as of 03/12/2024) Resolved Problems Problem Noted Date Diagnosed Date [...] as of this encounter (statuses as of 03/12/2024) Immunizations Name Administration Dates Next Due Pneumococcal Conjugate Vacci ne, 20-valent ([id number]) 12/04/2022 Pneumococcal Polysaccharide PPV23 (Pneumovax) 05/06/2011 Seasonal [...] Sign Reading Time Taken Comments Blood Pressure 151/72 03/11/2024 8:00 PM EDT Pulse 63 03/11/2024 8:00 PM EDT Temperature 36.7 C (98.1 F) 03/11/2024 4:15 PM ED T Respiratory Rate 20 03/11/2024 8:00 PM EDT Oxygen Saturation 94% 03/11/2024 8:00 PM EDT Inhaled Oxygen Concentration - - Weight 174.6 kg (385 lb) 03/11/2024 4:15 PM EDT Height 149.9 cm (4' 11") 03/11/2024 4:15 PM EDT Body Mass Index 77.76 03/11/2024 4:15 PM EDT documented in this encounter Discharge Instructions * Discharge Instructions* Eneida Garza PA-C - 03/11/2024 8:41 PM EDT You were seen and evaluated here in the ED for heart palpitations and shortness of breath. Your workup was overall reassuring. Your BNP was minimally elevated but you reported that you have not been taking your Lasix as prescribed. I encouraged that you take this as prescribed as it may help with your shortness of breath. I would like you to have a ZIO patch, external EKG placed for further evaluation of the heart palpitations. This is an appointment based study that you may go to on the 4th floor when scheduled. I have placed a Cardiology referral to discuss heart palpitations and elevated BNP. I have also placed an outpatient echocardiogram which is an ultrasound of the heart to evaluate heart function. If you begin to experience any worsening heart palpitations, shortness of breath, chest pain, fevers or chills, or any new or worsening symptoms please report to the ED immediately for further evaluation. Otherwise, I would like you to follow up with your primary care physician. documented in this encounter ED Notes * Cem Calhoun MD - 03/11/2024 9:00 PM EDT HISTORY OF PRESENT ILLNESS Mica Jimenez is a 49 year old female who presents to the ED for evaluation of Other. The patient was seen at 03/11/24 1638. Patient is a 49-year-old female with a past medical history of asthma, bipolar 1 disorder, generalized anxiety, obstructive sleep apnea presenting today with heart palpitations. Patient reports that over the last 4 days she has been having a fluttering sensation. She states that today she began to notice a shortness of breath as well. Patient reports that her Wound Care nurse did tell her that she believes she had an irregular heartbeat. Patient reports that she did see her PCP yesterday and was told that her workup was overall reassuring. Patient expresses that she would like to make sure she does not have atrial fibrillation. She denies any chest pain, abdominal pain, fevers or chills. She reports that her legs are normally swollen and at baseline. States that she has not been taking her Lasix as prescribed. Review of Systems Constitutional: Negative for chills and fever. HENT: Negative for congestion, rhinorrhea and sore throat. Respiratory: Negative for cough, shortness of breath and wheezing. Cardiovascular: Positive for palpitations and leg swelling. Negative for chest pain. Gastrointestinal: Negative for abdominal pain, constipation, diarrhea, nausea and vomiting. Genitourinary: Negative for dysuria, hematuria and urgency. Musculoskeletal: Negative for back pain. The patient's allergies, past history, and medications were reviewed. PHYSICAL EXAM Initial Vitals (see all): BP 192/78 | Pulse 77 | Resp 28 | Temp 98.1 | O2 96 %, Room Air, None | Weight 174.64 kg | Height 149.9 cm | BMI 77.76 kg/m2 Initial Pain Assessment (see all): 0 (no pain)/10 ([facility] Adult Scale 0-10) Physical Exam Vitals and nursing note reviewed. Constitutional: General: She is not in acute distress. Appearance: Normal appearance. She is not ill-appearing, toxic-appearing or diaphoretic. HENT: Head: Normocephalic and atraumatic. Mouth/Throat: Mouth: Mucous membranes are moist. Pharynx: No oropharyngeal exudate or posterior oropharyngeal erythema. Eyes: Extraocular Movements: Extraocular movements intact. Conjunctiva/sclera: Conjunctivae normal. Pupils: Pupils are equal, round, and reactive to light. Cardiovascular: Rate and Rhythm: Normal rate. Rhythm irregular. Pulses: Normal pulses. Heart sounds: Normal heart sounds. Pulmonary: Effort: Pulmonary effort is normal. No respiratory distress. Breath sounds: Normal breath sounds. No wheezing, rhonchi or rales. Abdominal: General: Bowel sounds are normal. Palpations: Abdomen is soft. Tenderness: There is no abdominal tenderness. Musculoskeletal: General: Normal range of motion. Right lower leg: Edema present. Left lower leg: Edema present. Skin: General: Skin is warm. Capillary Refill: Capillary refill takes less than 2 seconds. Neurological: General: No focal deficit present. Mental Status: She is alert and oriented to person, place, and time. PROCEDURES AND TREATMENTS ED Orders | ED Results MEDICAL DECISION MAKING Nursing notes and vital signs were reviewed. ED Course as of 03/11/242352Mar 11, 2024 1500 EKG - per protocol My interpretation of EKG today reveals sinus rhythm with a premature atrial complexes at a rate of 67 beats per minute. VT interval 160 MS. QT/QTC 408/[address] segment elevation or depression noted. When compared to previous EKG, PACs now present [BK] 1728 CBC with WBC Differential(!) Stable hemoglobin and hematocrit when compared to previous [BK] 1740 XR Chest 1 View IMPRESSION: No acute cardiopulmonary disease [BK] 1750 Troponin T, High Sensitivity [BK] 2010 Troponin T, High Sensitivity [BK] 2048 Ambulatory pulse ox overall reassuring. Patient felt comfortable being discharged home at thistime. [BK] 3697 EKG - per protocol [BK] ED Course User Index [MIKA] Eneida Garza PA-C Differential Diagnoses Based on my history, physical exam, and evaluation, the differential includes, but is not limited, to the following diagnoses: Cardiac dysrhythmia, PACs, CHF exacerbation, less likely ACS, anxiety. Patient is a [age] year old female presenting with heart palpitations that began 4 days ago and shortness of breath that began today. On arrival, patient's vitals appear to be stable. Labs reviewed, and significant for no leukocytosis, stable hemoglobin and hematocrit, negative troponin x2, elevated BNP with no previous to compare to, mild hypokalemia, negative beta hCG. Chest x-ray was ordered due to concern for cardiopulmonary etiology of symptoms, which demonstrated no acute cardiopulmonary disease. IV Lasix and oral potassium was given for elevated BNP associated with shortness of breath as well as the potassium level which improved shortness of breath symptoms. Patient was able to ambulate here in the ED while without much difficulty. Due to above findings, I believe the patient was stable for discharge. I encouraged her to take her Lasix as prescribed to help with the shortness of breath. I did order a ZIO patch to further investigate her heart palpitations. Cardiology referral placed as well. I did also order an outpatient echocardiogram to evaluate heart function due to the elevated BNP. Patient expressed understanding of this treatment plan and was stable upon discharge. Amount and/or Complexity of Data Reviewed Labs: ordered. Decision-making details documented in ED Course. Radiology: ordered. Decision-making details documented in ED Course. ECG/medicine tests: ordered. Decision-making details documented in ED Course. Risk Prescription drug management. Clinical Impressions SOB (shortness of breath) Heart palpitations Elevated brain natriuretic peptide (BNP) level Disposition Discharged. The patient's condition at disposition was: stable. Discharge Medications None Cem Calhoun was the attending physician who supervised the care of this patient. Eneida Garza PA-C ATTENDING ATTESTATION I have discussed the patient's management with the provider listed above and agree with the note, findings, and plan of care. I personally made/approved the management plan and take responsibility for patient management. * Shavon Boyd RN - 03/11/2024 4:30 PM EDT Per ems, pt from home and is here because her wound nurse told pt she had an irregular heart rate today. No history of this. Pt saw doctor yesterday and they found nothing. Pt is anxious and wants dago sure she does not have afib. NSR on monitor. EKG in triage. documented in this encounter Miscellaneous Notes * Pt Handout (on AVS) - Eneida Garza PA-C - 03/11/2024 8:39 PM EDT [id number] Shortness of Breath (Dyspnea) Shortness of breath is the feeling that you can't catch your breath or get enough air. It's also known as dyspnea. Dyspnea can be caused by many different conditions. They include: Acute asthma attack Worsening of chronic lung diseases such as chronic bronchitis and emphysema (COPD) Heart failure. This is when weak heart muscle causes extra fluid to collect in the lungs. Panic attacks or anxiety. Fear can cause rapid breathing (hyperventilation). Pneumonia, or an infection in the lung tissue Exposure to toxic substances, fumes, smoke, or certain medicines Blood clot in the lung (pulmonary embolism). This is often from a piece of blood clot in a deep vein of the leg (deep vein thrombosis) that breaks off and travels to the lungs. Heart attack or heart-related chest pain (angina) Anemia Collapsed lung (pneumothorax) Dehydration Based on your visit today, the exact cause of your shortness of breath is not certain. Your tests don?t show any of the serious causes of dyspnea. You may need other tests to find out if you have a serious problem. It?s important to watch for any new symptoms or symptoms that get worse. Follow up with your healthcare provider as directed. Home care Follow these tips to take care of yourself at home: When your symptoms are better, go back to your usual activities. If you smoke, you should stop. Join a quit-smoking program or ask your healthcare provider for help. Eat a healthy diet and get plenty of sleep. Get regular exercise. Talk with your healthcare provider before starting to exercise, especiallyif you have other medical problems. Discuss with your healthcare provider about cutting down on the amount of caffeine and stimulants you consume. Follow-up care Follow up with your healthcare provider, or as advised. If tests were done, you will be told if your treatment needs to be changed. You can call as directed for the results. If an X-ray was taken, you will be told of any new findings that may affect your care. Call 911 Shortness of breath may be a sign of a serious medical problem. For example, it may be a problem with your heart or lungs. Call 911 if you have worsening shortness of breath or trouble breathing, especially with any of the symptoms below: Shortness of breath or wheezing Confusion or difficulty waking Fainting or loss of consciousness Fast or irregular heartbeat Coughing up blood Unusual pain in your chest, arm, shoulder, neck, or upper back Unusual sweating Feeling of doom Lips or skin looks blue, purple, or mcleod in color Feel dizzy When to seek medical advice Call your healthcare provider right away if any of these occur: Redness, pain or swelling in your leg, arm, or other body area Swelling in both legs or ankles Fast weight gain Weakness Fever of 100.4F (38C) or higher, or as directed by your healthcare provider Last Reviewed Date: 08/06/202119991528-7437 [employer]. All rights reserved. This information is not intended as a substitute for professional medical care. Always follow your healthcare professional's instructions. * Pt Handout (on AVS) - Eneida Garza PA-C - 03/11/2024 8:39 PM EDT Images from the original note were not included. [id number] Heart Palpitations Palpitations are the feeling that your heart is beating hard, fast, or irregular. Some describe it as "pounding," "flip-flopping in the chest," or "skipped beats." Palpitations may occur in someone with heart disease. But they can also occur in a healthy person. Heart-related causes: Heart rhythm problem (arrhythmia) Heart valve disease Disease of the heart muscle (cardiomyopathy) Coronary artery disease High blood pressure Izu-katrh-sysfcyi causes: Certain medicines such as asthma inhalers and decongestants Some herbal supplements, energy drinks and pills, and weight loss pills Illegal stimulant drugs such as cocaine, crank, methamphetamine, PCP, and ecstasy Caffeine, alcohol, and tobacco Health conditions such as thyroid disease, anemia, anxiety, and panic disorder Sometimes the cause can't be found. Home care Follow these home care tips: Don't use too much caffeine, alcohol, or tobacco, or any stimulant drugs. Tell your doctor about any prescription or ginb-vgb-atnnzvn or herbal medicines you take. Follow-up care Follow up with your doctor, or as advised. Call 911 This is the fastest and safest way to get to the emergency department. The paramedics can also start treatment on the way to the hospital, if needed. Don't wait until your symptoms are severe to call 911. These are reasons to call 911: Chest pain Shortness of breath Feeling lightheaded, faint, or dizzy, or losing consciousness Very irregular heartbeat Rapid heartbeat that makes you uncomfortable Slower than usual heart rate along with symptoms Chest pain with weakness, dizziness, heavy sweating, nausea, or vomiting Extreme drowsiness, confusion, or weakness Weakness of an arm or leg, or on one side of the face Trouble with speech or vision When to seek medical advice Call your healthcare provider right away if you have palpitations that last longer than normal, or are different from your past palpitations. Last Reviewed Date: 08/06/202119995335-6611 [employer]. All rights reserved. This information is not intended as a substitute for professional medical care. Always follow your healthcare professional's instructions. * ED Assistant Professor Of Psychology Note - Jordan Cornejo RN - 03/11/2024 8:28 PM EDT Pt ambulated 20 ft with walker. Pt uses walker at home, pt state smild SOB, at baseline O2 95% or greater pulse 90-100 documented in this encounter Plan of Treatment Upcoming Encounters Date Type Department Care Team (Latest Contact Info) Description 03/12/2024 1:00 PM EDT Imaging Radiology, [place] [address] [place] [address] 03/17/2024 12:30 PM EDT Appointment Radiology, [place] [address] [facility] [place] [address] 03/19/2024 10:15 AM EDT Appointment Cardiac Studies, [address] [place] [address] [facility], [address] [place] [address] 04/16/2024 8:00 AM EDT Hospital Encounter OR [facility], Operating Room, [facility] - 4th Floor [address] [place] [address] [place] [address] Usha Almeida, DO [address] [place] [address] 04/16/2024 8:00 AM EDT - 04/16/2024 8:28 AM EDT Surgery OR [facility], Operating Room, [facility] Floor [address] [place] [address] [place] [address] Usha Almeida, DO [address] [place] [address] COLONOSCOPY FLEXIBLE PROXIMAL DIAGNOSTIC 04/21/2024 10:40 AM EDT Office [address], [address] [address] Yuriy Hilario MD [address] [place] [address] 05/14/2024 1:40 PM EDT Office Visit [address] [place] [address] Melissa Cruz PA-C [address] [facility] [address] [place] [address] 05/28/2024 9:00 AM EDT Office Visit Cardiology, [address] [place] [address] Anna [facility]ames [facility] [address] [facility] [address] 06/06/2024 2:00 PM EDT Appointment Cardiac Studies, [facility] [address] [facility] [place] [address] 06/16/2024 1:25 PM EST NeuroDiagnostic Study Neurophysiology, [address] [address] Ramiro Grove, DO [address] [facility] [place] [address] Scheduled Orders Name Type Priority Associated Diagnoses Orde r Schedule EKG EKG STAT Screening for cardiovascular condition Perform Now for 1 Occurrences starting 03/11/2024 until 03/11/2024 EXTERNAL EKG 8 TO 15 DAYS Holter Routine Heart palpitations Ordered: 03/11/2024 ECHO, COMPLETE (2D), TRANS-THORACIC Echocardiology Routine SOB (shortness of breath) Heart palpitations Ordered: 03/11/2024 Scheduled Procedures Name Priority Associated Diagnoses Date/Ti me COLONOSCOPY FLEXIBLE PROXIMAL DIAGNOSTIC Screening for colon cancer 04/16/2024 8:00 AM EDT Scheduled Referrals Name Type Priority Associated Diagnoses Orde r Schedule CARDIOLOGY REFERRAL OP Referral Within 10 days (routine) Heart palpitations Ordered: 03/11/2024 Health Maintenance Due Date Last Done Comments Hepatitis B Vaccine (1 of 3 - 19+ 3-dose series) 01/12/1995 HPV/Co-Test 01/12/2006 Mammogram 06/06/2019 06/06/2018, 09/18/2016 Cologuard 01/12/2021 Colonoscopy 01/12/2021 12/02/2008 Colorectal Cancer Screening 01/12/2021 Fecal Occult Blood Test 01/12/2021 Sigmoidoscopy 01/12/2021 COVID-19 Vaccine (1 - 2022- season) 2023 Cervical Cancer Screening 01/11/2024 Pap [...] this encounter Medical Devices Implanted Type Area Pest Management Supervisor Device Identifier Shelf Expiration Date Model / Serial / Lot Device Perm Cntr [id number] - [id number] Implanted:Qty: 2 on 09/27/2015 by Sharda Ruiz, Corey Rucker MD at OR [facility] Uterus [employer] 05/03/2017 [id number] / / [id number] documented as of this encounter Procedures Procedure Name Priority Date/Time Associated Diagnosis Comments TROPONIN T, HIGH SENSITIVITY STAT 03/11/2024 7:12 PM EDT TROPONIN T, HIGH SENSITIVITY STAT 03/11/2024 5:13 PM EDT EXTRA LIGHT BLUE TOP Routine 03/11/2024 5:12 PM EDT DIFFERENTIAL, AUTOMATED STAT 03/11/2024 5:12 PM EDT BNP (NT-PROBNP) STAT 03/11/2024 5:12 PM EDT BETA-HCG, QUANTITATIVE STAT 5:12 PM EDT COMPREHENSIVE METABOLIC PANEL STAT 03/11/2024 5:12 PM EDT CBC STAT 03/11/2024 5:12 PM EDT CBC STAT 03/11/2024 5:12 PM EDT XR CHEST 1 VIEW STAT 03/11/2024 5:08 PM EDT documented in this encounter Results * TROPONIN T, HIGH SENSITIVITY (03/11/2024 7:12 PM EDT) Troponin T, High Sensitivity 8 <=14 ng/L 03/11/2024 7:39 PM EDT LABORATORY [facility] Comment:Result may be falsel y decreased due to hemolysis. Blood Venous blood specimen / Unknown Venipuncture / Unknown 03/11/2024 7:12 PM EDT 03/11/2024 7:15 PM EDT Eneida Garza PA-C LAB BLOOD O RDLULÚ Performing Organization Address City/[facility] [[email or web address]] Co de Phone Number LABORATORY [address] [address] * TROPONIN T, HIGH SENSITIVITY (03/11/2024 5:13 PM EDT) Troponin T, High Sensitivity 7 <=14 ng/L 03/11/2024 5:43 PM EDT LABORATORY [facility] Blood Venous blood specimen / Unknown Venipuncture / Unknown 03/11/2024 5:13 PM EDT 03/11/2024 5:16 PM EDT Eneida Garza PA-C LAB BLOOD O RDERABLES LABORATORY [facility] [address] [place] [address] * (ABNORMAL) DIFFERENTIAL, AUTOMATED (03/11/2024 5:12 PM EDT) WBC 6.23 4.00 - 10.80 K/uL 03/11/2024 5:20 PM EDT LABORATORY GL Neutrophils % 78.9(H) 40.0 - 75.0 % 03/11/2024 5:20 PM EDT LABORATORY GL Lymphocytes % 17.2(L) 18.0 - 42.0 % 03/11/2024 5:20 PM EDT LABORATORY GL Monocytes % 3.4 1.0 - 11.0 % 03/11/2024 5:20 PM EDT LABORATORY GL Eosinophils % 0.0 0.0 - 6.0 % 03/11/2024 5:20 PM EDT LABORATORY GL Basophils % 0.2 0.0 - 2.0 % 03/11/2024 5:20 PM EDT LABORATORY GL Immature Granulocytes % 0.3 0.0 - 2.0 % 03/11/2024 5:20 PM EDT LABORATORY GL Absolute Neutrophils 4.92 1.80 - 7.70 K/uL 03/11/2024 5:20 PM EDT LABORATORY GL Absolute Lymphocytes 1.07 1.00 - 4.80 K/ul 03/11/2024 5:20 PM EDT LABORATORY GL Absolute Monocytes 0.21 0.00 - 1.10 K/uL 03/11/2024 5:20 PM EDT LABORATORY GL Absolute Eosinophils 0.00 0.00 - 0.70 K/uL 03/11/2024 5:20 PM EDT LABORATORY GL Absolute Basophils 0.01 0.00 - 0.20 K/uL 03/11/2024 5:20 PM EDT LABORATORY GL Absolute Immature Granulocytes 0.02 0.00 - 0.20 K/uL 03/11/2024 5:20 PM EDT LABORATORY GL Blood Venous blood specimen / Unknown Venipuncture / Unknown 03/11/2024 5:12 PM EDT 03/11/2024 5:16 PM EDT Eneida Garza PA-C LAB BLOOD O RDERABLES LABORATORY [address] [address] * (ABNORMAL) CBC (03/11/2024 5:12 PM EDT) WBC 6.23 4.00 - 10.80 K/uL 03/11/2024 5:20 PM EDT LABORATORY GL RBC 4.08 3.85 - 5.15 M/uL 03/11/2024 5:20 PM EDT LABORATORY [facility] HGB 11.0(L) 12.0 - 15.3 g/dL 03/11/2024 5:20 PM EDT LABORATORY [facility] HCT 35.1(L) 36.0 - 45.2 % 03/11/2024 5:20 PM EDT LABORATORY [facility] MCV 86.0 81.5 - 97.5 fL 03/11/2024 5:20 PM EDT LABORATORY [facility] MCH 27.0 27.0 - 34.0 pg 03/11/2024 5:20 PM EDT LABORATORY [facility] MCHC 31.3 32.0 - 36.0 g/dL 03/11/2024 5:20 PM EDT LABORATORY [facility] RDW 15.7 11.5 - 15.5 % 03/11/2024 5:20 PM EDT LABORATORY [facility] PLT 207 140 - 400 K/uL 03/11/2024 5:20 PM EDT LABORATORY [facility] MPV 9.6 6.6 - 11.1 fL 03/11/2024 5:20 PM EDT LABORATORY GL nRBCs 0 <=0 /100 WBCs 03/11/2024 5:20 PM EDT LABORATORY GL Blood Venous blood specimen / Unknown Venipuncture / Unknown 03/11/2024 5:12 PM EDT 03/11/2024 5:16 PM EDT Eneida Garza PA-C LAB BLOOD O RDERABLES LABORATORY [address] [id number] * BETA-HCG, QUANTITATIVE (03/11/2024 5:12 PM EDT) [facility] Beta-HCG, Quantitative <0.3 <=1.0 mIU/mL 03/11/2024 6:10 PM EDT LABORATORY [facility] Blood Venous blood specimen / Unknown Venipuncture / Unknown 03/11/2024 5:12 PM EDT 03/11/2024 5:16 PM EDT [facility] LABORATORY [facility] - 03/11/2024 6:10 PM EDT hCG can serve as a screening assay [...] for postmenopausal women is <= 7 mIU/mL. Eneida Garza PA-C LAB BLOOD O RDER[facility]LES LABORATORY [address] [address] * EXTRA LIGHT BLUE TOP (03/11/2024 5:12 PM EDT) Blood Venous blood specimen / Unknown Venipuncture / Unknown 03/11/2024 5:12 PM EDT 03/11/2024 5:16 PM EDT Eneida Garza PA-C LAB BLOOD [facility] LABORATORY [address] [address] * (ABNORMAL) COMPREHENSIVE METABOLIC PANEL (03/11/2024 5:12 PM EDT) [facility] BUN 25(H) 6 - 20 mg/dL 03/11/2024 6:00 PM EDT LABORATORY [facility] Creatinine 0.7 0.5 - 1.0 mg/dL 03/11/2024 6:00 PM EDT LAB[facility] Estimated Glomerular Filtration Rate >90 >=60 mL/min 03/11/2024 6:00 PM EDT LAB[facility] Comment:eGFR is calculated b ased on the CKD-EPI 2020 equation. Sodium 141 135 - 146 mmol/L 03/11/2024 6:00 PM EDT LAB[facility] Potassium 3.3(L) 3.5 - 5.1 mmol/L 03/11/2024 6:00 PM EDT LAB[facility] Chloride 104 98 - 107 mmol/L 03/11/2024 6:00 PM EDT LAB[facility] CO2 26 22 - 32 mmol/L 03/11/2024 6:00 PM EDT [facility] Anion Gap 11 7 - 15 mmol/L 03/11/2024 6:00 PM EDT [facility] Glucose 120 70 - 120 mg/dL 03/11/2024 6:00 PM EDT LAB[facility] Albumin 3.5(L) 3.8 - 5.0 g/dL 03/11/2024 6:00 PM EDT LAB[facility] AST 13 10 - 35 U/L 03/11/2024 6:00 PM EDT LAB[facility] Alkaline Phosphatase 74 35 - 130 U/L 03/11/2024 6:00 PM EDT LAB[facility] Bilirubin, Total 1.5(H) <=1.2 mg/dL 03/11/2024 6:00 PM EDT [facility] Calcium 8.6 8.4 - 10.2 mg/dL 03/11/2024 6:00 PM EDT [facility] Protein 6.5 6.0 - 8.3 g/dL 03/11/2024 6:00 PM EDT LAB[facility] ALT 31 10 - 35 U/L 03/11/2024 6:00 PM EDT [facility] Blood Venous blood specimen / Unknown Venipuncture / Unknown 03/11/2024 5:12 PM EDT 03/11/2024 5:16 PM EDT Eneida Garza PA-C LAB BLOOD O RDERABLES LAB[facility]AT[facility] [address] [place] [address] * (ABNORMAL) BNP, NT-PRO (03/11/2024 5:12 PM EDT) BNP, NT-Pro 1,320(H) <300 pg/mL 03/11/2024 6:00 PM EDT LABORATORY [facility] Blood Venous blood specimen / Unknown Venipuncture / Unknown 03/11/2024 5:12 PM EDT 03/11/2024 5:16 PM EDT Narrative LABORATORY [facility] - 03/11/2024 6:00 PM EDT Exclude Heart Failure: <300 pg/mL Diagnose Heart Failure: Age <50 yr: >450 pg/mL 50-75 yr: >900 pg/mL >75 yr: >1800 pg/mL GFR is 30-59 mL/min: >1200 pg/mL or Age-adjusted values GFR <30 mL/min: do not use, not reliable Prognostic threshold: 1000 pg/mL Eneida Garza PA-C LAB BLOOD [facility] LAB[facility]ATORY [address] [address] * XR CHEST 1 VIEW (03/11/2024 5:08 PM EDT) Anatomical Region Laterality Modality Chest Digital Radiogra phy 03/11/2024 5:01 PM EDT Impressions 03/11/2024 5:18 PM EDT IMPRESSION: No acute cardiopulmonary disease. THIS DOCUMENT HAS BEEN ELECTRONICALLY SIGNED BY DODIE YEE MD Narrative 03/11/2024 5:18 PM EDT PROCEDURE INFORMATION: Exam: XR Chest Exam date and time: 03/11/2024 5:01 PM Age: 49 years old Clinical indication: Other: Palpitations / chest pain/ SOB; Additional info: Heart palpitations, shortness of breath that started today TECHNIQUE: Imaging protocol: Radiologic exam of the chest. Views: 1 view. COMPARISON: DX XR SHOULDER, 2 OR MORE VIEWS 12/26/2022 10:10 AM FINDINGS: Lungs: Unremarkable. No consolidation. Pleural spaces: Unremarkable. No pleural effusion. No pneumothorax. Heart/Mediastinum: Borderline cardiac size. Bones/joints: Nonspecific degenerative disease of the spine and bilateral shoulders. Procedure Note Dodie Yee MD - 03/11/2024 PROCEDURE INFORMATION: Exam: XR Chest Exam date and time: 03/11/2024 5:01 PM Age: 49 years old Clinical indication: Other: Palpitations / chest pain/ SOB; Additionalinfo: Heart palpitations, shortness of breath that started today TECHNIQUE: Imaging protocol: Radiologic exam of the chest. Views: 1 view. COMPARISON: DX XR SHOULDER, 2 OR MORE VIEWS 12/26/2022 10:10 AM FINDINGS: Lungs: Unremarkable. No consolidation. Pleural spaces: Unremarkable. No pleural effusion. No pneumothorax. Heart/Mediastinum: Borderline cardiac size. Bones/joints: Nonspecific degenerative disease of the spine and bilateral shoulders. IMPRESSION IMPRESSION: No acute cardiopulmonary disease. THIS DOCUMENT HAS BEEN ELECTRONICALLY SIGNED BY DODIE YEE MD Eneida Garza PA-C RADIOLOGY ( [facility]) documented in this encounter Visit Diagnoses Diagnosis Heart palpitations- Primary Palpitations SOB (shortness of breath) Shortness of breath Screening for cardiovascular condition Screening for other and unspecified cardiovascular conditions Elevated brain natriuretic peptide (BNP) level Other nonspecific findings on examination of blood Screening mammogram for breast cancer Screening for colon cancer Special screening for malignant neoplasms, colon documented in this encounter Administered Medications Inactive Administered Medications - up to 3 most recent administrations Medication Order MAR Action Action Date Dose Rate Site Furosemide (Lasix) inj 40 mg 40 mg, IV Push, ONCE, On Sun03/11/24 at 1900, For 1 dose Given 03/11/2024 7:07 PM EDT 40 mg potassium chloride ER tab 20 mEq 20 mEq, Oral, ONCE, On Sun03/11/24 at 1915, For 1 dose, This med should NOT be Crushed or Chewed Given 03/11/2024 7:07 PM EDT 20 mEq documented in this encounter Active and Recently Administered Medications Times are shown in EDT. Scheduled Medication Order 03/09/2024 03/10/2024 03/11/2024 Furosemide (Lasix) inj 40 mg (COMPLETED) 40 mg, IV Push, ONCE, On Sun03/11/24 at 1900, For 1 dose 1907 (Given - Provid er: Shavonlivan Teeck, RN) potassium chloride ER tab 20 mEq (COMPLETED) 20 mEq, Oral, ONCE, On Sun03/11/24 at 1915, For 1 dose, This med should NOT be Crushed or Chewed 1906 (Given - Provid er: Shavon Boyd RN) documented in this encounter Advance Directives [...] Power of Attor benoit? No Care Teams Truck Shop Mechanic Relationship Specialty Start Date End Date Melissa Cruz PA-C [address] [address] [place] [address] PCP - General Physician Linen Checker 06/02/21 documented as of this encounter
--- OUTSIDE RECORDS SUMMARY | 2024-08-09 23:56 | External Medical Summary | Summary of Care ---
Author Name Unknown Organization [facility] Address [address] [place] [address] Phone [phone] Care Team Providers Care Icing Machine Operator Name Role Phone CarylTy mansfieldanthony Adam PA-C Primary Care Provider +1- [phone] Reason for Visit * Reason Onset Date Comments Referral 03/13/2024 Encounter Details Date Type Department Care Team (Late st Contact Info) Description 03/13/2024 New Patient Triage (LIVE HANGER USE ONLY) Cardiology, [address] [id number] Keli Blackmon, ACCOUNTING MANAGER CPA [address] [place] [address] Referral Allergies Active Allergy Reactions Criticality Noted Date Comments Aspirin 01/27/2014 Increased bleeding documented as of this encounter (statuses as of 03/13/2024) Medications Medication Sig Dispensed Refills Start Date [...] wounds. 45 g 3 03/19/2023 Active Nystatin 235996 UNIT/GM External Powder (Nystop) Apply topically to [...] as of this encounter (statuses as of 03/13/2024) Active Problems Problem Noted Date Diagnosed Date [...] as of this encounter (statuses as of 03/13/2024) Resolved Problems Problem Noted Date Diagnosed Date [...] as of this encounter (statuses as of 03/13/2024) Immunizations Name Administration Dates Next Due Pneumococcal Conjugate Vacci ne, 20-valent ([id number]) 12/04/2022 Pneumococcal Polysaccharide PPV23 (Pneumovax) 05/06/2011 Seasonal [...] as of this encounter Progress Notes * Rip Montez PA-C - 03/13/2024 8:26 PM EDT Does patient need to be seen?: Yes Modality: Office visit Urgency: Within 30 days (routine) Discussed care plan with patient or proxy?: Yes Mychart Communicated with patient on Date (mm/dd/yyyy): 04/01/2024 at Time ([facility]): 7:46 AM Rip Montez PA-C Department of Cardiology * Lee Ann Garza LPN - 03/13/2024 7:40 AM EDT New Patient Triage What is the diagnosis/reason for referral?: palpitations Enter order ID here: [id number] Specialty specific documentation: Other Discussed care plan with patient or proxy?: Yes MyG message Communicated with patient on Date (mm/dd/yyyy): 03/13/24 at Time ([facility]): 0744 APPOINTMENT INFO: 05/28/24 Dr Adames INFO FROM CARDIAC REFERRAL Referred by [facility] ER on 03/11/24 - notes below Patient is a [age] year old female [...] heart function due to the elevated BNP. EKG/ECHO/ZIO/CARDIAC TESTING 03/11/24 EKG Sinus rhythm with PACs 67 bpm Echo pending Wearing a ZIO documented in this encounter Plan of Treatment Upcoming Encounters Date Type Department Care Team (Latest Contact Info) Description 03/19/2024 10:15 AM EDT Appointment [facility], [facility] [address] [facility], Drug Safety Data Management Specialist [address] [facility] [address] 04/16/2024 8:00 AM EDT Hospital Encounter OR [facility], Operating Room, [facility] - 4th Floor [address] [place] [address] Usha Almeida, [address] [place] [address] 04/16/2024 8:00 AM EDT - 04/16/2024 8:28 AM EDT Surgery OR [facility], Operating Room, [facility] - 4th Floor [address] [facility] [address] Usha Almeida, DO [address] [place] [address] COLONOSCOPY FLEXIBLE PROXIMAL DIAGNOSTIC 04/21/2024 10:40 AM EDT Office Visit Wound Care, [address] [address] Yuriy Hilario MD [address] [place] [address] 05/14/2024 1:40 PM EDT Office Visit [place] [address] [address] [place] [address] Melissa Cruz PA-C [facility] [address] [place] [address] 05/28/2024 9:00 AM EDT Office Visit [address], [address] [address] Anna Adames MD [address] [facility] [place] [address] 06/06/2024 2:00 PM EDT Appointment Cardiac Studies, [address] [place] [address] 06/16/2024 1:25 PM EST NeuroDiagnostic Study Neurophysiology, [place] [address] [facility] [place] [address] [place], [address] [facility] [place] [address] Scheduled Procedures Name Priority Associated Diagnoses Date/Ti [...] this encounter Medical Devices Implanted Type Area Pastoral Worker Device Identifier Shelf Expiration Date Model / Serial / Lot Device Perm Cntrl [id number] - [id number] Implanted:Qty: 2 on 09/27/2015 by Sharda Ruiz, Corey Rucker MD at OR [facility] Uterus [employer] 05/03/2017 [id number] / / [id number] documented as of this encounter Advance Directives [...] Power of Attor benoit? No Care Teams Icing Machine Operator Relationship Specialty Start Date End Date Melissa Cruz PA-C [address] [facility] [address] [place] [address] PCP - General Physician Tool Profiling Machine Set Up Operator 06/02/21 documented as of this encounter
--- OUTSIDE RECORDS SUMMARY | 2024-08-09 23:56 | External Medical Summary ---
Author Name Unknown Address Unknown Organization K1F:LABORATORY [facility] - [address] [place] [place] [address] Laboratory Report Ordering Provider Test Date Status CHARISMA HAY 03/11/2024 17:12:00 Final Observation Date Value Abnormality Reference (Units ) Status BUN 03/11/2024 17:12:00 25 Above high normal 6-20 (mg/dL) Final Creatinine 03/11/2024 17:12:00 0.7 0.5-1.0 (mg/dL) Final Glomerular filtration rate/1.73 sq M.predicted [Volume Rate/Area] in Serum, Plasma or Blood by Creatinine-based formula (CKD-EPI) 03/11/2024 17:12:00 >90 >=60 (mL/min) Final eGFR is calculated based on the CKD-EPI 2020 equation. Sodium 03/11/2024 17:12:00 141 135-146 (m mol/L) Final Potassium 03/11/2024 17:12:00 3.3 Below low normal 3.5 -5.1 (mmol/L) Final Cl 03/11/2024 17:12:00 104 98-107 (mm ol/L) Final CO2 03/11/2024 17:12:00 26 22-32 (mmo l/L) Final Anion gap 03/11/2024 17:12:00 11 7-15 (mmol /L) Final Glucose 03/11/2024 17:12:00 120 70-120 (mg /dL) Final Albumin 03/11/2024 17:12:00 3.5 Below low normal 3.8 -5.0 (g/dL) Final AST (Aspartate aminotransferase) 03/11/2024 17:12:00 13 10-35 (U/L) Fin al Alk Phos 03/11/2024 17:12:00 74 35-130 (U/ L) Final Bilirubin, Total 03/11/2024 17:12:00 1.5 Above high no rmal <=1.2 (mg/dL) Final Calcium 03/11/2024 17:12:00 8.6 8.4-10.2 ( mg/dL) Final Protein 03/11/2024 17:12:00 6.5 6.0-8.3 (g /dL) Final ALT (Alanine aminotransferase) 03/11/2024 17:12:00 31 10-35 (U/L) Saman bruner Performing Location LABORATORY [address] [place] [address]
--- OUTSIDE RECORDS SUMMARY | 2024-08-09 23:56 | External Medical Summary ---
Author Name Unknown Address Unknown Organization K1F:LABORATORY [facility] - [address] [place] [address] Laboratory Report Ordering Provider Test Date Status CHARISMA HAY 03/11/2024 17:12:00 Final Observation Date Value Abnormality Reference (Units ) Status WBC, Total 03/11/2024 17:12:00 6.23 4.00-10.80 (K/uL) Final RBC 03/11/2024 17:12:00 4.08 3.85-5.15 (M/uL) Final Hemoglobin 03/11/2024 17:12:00 11.0 Below low normal 12.0-15.3 (g/dL) Final HCT 03/11/2024 17:12:00 35.1 Below low normal 36.0-45.2 (%) Final MCV 03/11/2024 17:12:00 86.0 81.5-97.5 (fL) Final MCH 03/11/2024 17:12:00 27.0 27.0-34.0 (pg) Final MCHC 03/11/2024 17:12:00 31.3 32.0-36.0 (g/dL) Final RDW 03/11/2024 17:12:00 15.7 11.5-15.5 (%) Final Platelets 03/11/2024 17:12:00 207 140-400 (K/uL) Final MPV 03/11/2024 17:12:00 9.6 6.6-11.1 (fL) Final Nucleated erythrocytes/100 leukocytes [Ratio] in Blood by Automated count 03/11/2024 17:12:00 0 <=0 (/100 WBCs) Final Performing Location LABORATORY [facility] - [address] [place] [address]
--- OUTSIDE RECORDS SUMMARY | 2024-08-09 23:56 | External Medical Summary | Summary of Care ---
Author Name Unknown Organization [facility] Address [address] [place] [address] Phone [phone] Care Team Providers Care Drywall Installer Name Role Phone Melissa Cruz PA-C Primary Care Provider +1- [phone] Reason for Visit * Reason Onset Date Comments Appointment 02/29/2024 LE wounds--above the knee Encounter Details Date Type Department Care Team ([facility] st Contact Info) Description 02/29/2024 Telephone Wound Care, [facility] [address] [place] [address] Services, Scheduling [address] [place] [address] Appointment (LE wounds--above the knee) Allergies Active [...] wounds. 45 g 3 03/19/2023 Active Nystatin 770980 UNIT/GM External Powder (Nystop) Apply topically to [...] Next Due Pneumococcal Conjugate Vacci ne, 20-valent ([id number]) 12/04/2022 Pneumococcal Polysaccharide PPV23 (Pneumovax) 05/06/2011 Seasonal [...] Description 03/17/2024 12:30 PM EDT Appointment Radiology, [place] [address] [place] [address] 04/16/2024 8:20 AM EDT Hospital Encounter OR [facility], Operating Room, [facility] - 4th Floor [address] [place] [address] Usha Almeida, DO [address] [place] [address] 04/16/2024 8:20 AM EDT - 04/16/2024 8:58 AM EDT Surgery OR [facility], Operating Room, [facility] - 4th Floor [address] [place] [address] Usha Almeida, DO [address] [place] [address] COLONOSCOPY FLEXIBLE PROXIMAL DIAGNOSTIC 05/14/2024 1:40 PM EDT Office Visit [place] [address] [address] [place] [address] Melissa Cruz PAMaria M [facility] [address] [place] [address] Scheduled Procedures Name Priority Associated Diagnoses Date/Ti [...] this encounter Medical Devices Implanted Type Area Lehr Loader Device Identifier Shelf Expiration Date Model / Serial / Lot Device Perm Cntrl [id number] - [id number] Implanted:Qty: 2 on 09/27/2015 by Sharda Ruiz, Corey Rucker MD at OR [facility] Uterus [employer] 05/03/2017 [id number] / / [id number] documented as of this encounter Advance Directives [...] Power of Attor benoit? No Care Teams Drywall Installer Relationship Specialty Start Date End Date Melissa Cruz PA-C [address] [facility] [address] [place] [address] PCP - General Physician Conche Loader And Unloader 06/02/21 documented as of this encounter
[2024-08-09] MEDS ORDERED: NITROGLYCERIN SL 0.4 MG/TAB TAB SL PRN (23:57)
[2024-08-09] MEDS ORDERED: POLYETHYLENE (MIRALAX) 17 GM PACK PO PRN (23:57)
[2024-08-09] MEDS ORDERED: clonazePAM 0.5 MG TAB PO PRN (23:57)
[2024-08-09] MEDS ORDERED: FUROSEMIDE 40 MG TAB PO PRN (23:57)
--- OUTSIDE RECORDS SUMMARY | 2024-08-09 23:57 | External Medical Summary | Summary of Care ---
Author Name Unknown Organization [facility] Address [address] [place] [address] Phone [phone] Care Team Providers Care Relationship Executive Name Role Phone Melissa Cruz PA-C Primary Care Provider +1- [phone] Reason for Visit * Reason Onset Date Comments Home Health 02/26/2024 Encounter Details Date Type Department Care Team (Late st Contact Info) Description 02/26/2024 Telephone [place] [address] [address] [place], [place] [phone] Melissa Cruz PA-C [facility]2 [facility] [address] [place] [phone] Home Health Allergies Active Allergy Reactions Criticality [...] wounds. 45 g 3 03/19/2023 Active Nystatin 793183 UNIT/GM External Powder (Nystop) Apply topically to [...] Next Due Pneumococcal Conjugate Vacci ne, 20-valent ([id number]) 12/04/2022 Pneumococcal Polysaccharide PPV23 (Pneumovax) 05/06/2011 Seasonal [...] - 02/26/2024 9:35 AM EDT HH Concerns Ling, Calling from: [facility] Report/Concerns of: BP Symptoms: none Vitals: [...] patient with any advice or orders at [phone] Please fax new orders to [facility] Home Health documented in this encounter Plan of Treatment Upcoming Encounters Date Type Department Care Team (Latest Contact Info) Description 04/16/2024 8:20 AM EDT Hospital Encounter OR [facility], Operating Room, [facility] - 4th Floor [address] [place] [address] Usha Almeida, DO [address] [place] [address] 04/16/2024 8:20 AM EDT - 04/16/2024 8:58 AM EDT Surgery OR [facility], Operating Room, [facility] - 4th Floor [address] [place] [address] Usha Almeida DO [address] [place] [address] COLONOSCOPY FLEXIBLE PROXIMAL DIAGNOSTIC Scheduled Procedures Name [...] encounter Medical Devices Implanted Type Area Manager Of Applications Development Device Identifier Shelf Expiration Date Model / Serial / Lot Device Perm Cntrl [id number] - [id number] Implanted:Qty: 2 on 09/27/2015 by Sharda Ruiz, Corey Rucker MD at OR [facility] Uterus [employer] 05/03/2017 [id number] / / [id number] documented as of this encounter Advance Directives [...] Power of Attor benoit? No Care Teams Relationship Executive Relationship Specialty Start Date End Date Melissa Cruz PA-C [address] [facility] [address] [place] [address] PCP - General Physician Solar Sales Manager 06/02/21 documented as of this encounter
--- OUTSIDE RECORDS SUMMARY | 2024-08-09 23:57 | External Medical Summary | Summary of Care ---
Author Name Unknown Organization [facility] Address [address] [place] [address] Phone [phone] Care Team Providers Care Director Enterprise Data Architecture Name Role Phone Melissa Cruz PA-C Primary Care Provider +1- [phone] Reason for Visit * Reason Onset Date Comments Home Health 02/26/2024 Encounter Details Date Type Department Care Team (Late st Contact Info) Description 02/26/2024 Telephone [place] [address] [address] [place], [place] [phone] Melissa Cruz PA-C [facility] [address] [place] [phone] Home Health Allergies Active Allergy Reactions Criticality [...] wounds. 45 g 3 03/19/2023 Active Nystatin 798638 UNIT/GM External Powder (Nystop) Apply topically to [...] Next Due Pneumococcal Conjugate Vacci ne, 20-valent ([id number]) 12/04/2022 Pneumococcal Polysaccharide PPV23 (Pneumovax) 05/06/2011 Seasonal [...] AM EDT HH Concerns Ling, Calling from: [facility] Report/Concerns of: BP Symptoms: none Vitals: [...] patient with any advice or orders at [phone] Please fax new orders to [facility] Home Health documented in this encounter Plan of Treatment Upcoming Encounters Date Type Department Care Team (Latest Contact Info) Description 04/16/2024 8:20 AM EDT Hospital Encounter OR [facility], Operating Room, [facility] - 4th Floor [address] [place] [address] Usha Almeida, DO [address] [place] [address] 04/16/2024 8:20 AM EDT - 04/16/2024 8:58 AM EDT Surgery OR [facility], Operating Room, [facility] - 4th Floor [address] [place] [address] Usha Almeida DO [address] [place] [address] COLONOSCOPY FLEXIBLE PROXIMAL DIAGNOSTIC Scheduled Procedures Name [...] encounter Medical Devices Implanted Type Area Senior Reactor Operator Device Identifier Shelf Expiration Date Model / Serial / Lot Device Perm Cntrl [id number] - [id number] Implanted:Qty: 2 on 09/27/2015 by Sharda Ruiz, Corey Rucker MD at OR [facility] Uterus [employer] 05/03/2017 [id number] / / [id number] documented as of this encounter Advance Directives [...] of Attor benoit? No Care Teams Director Enterprise Data Architecture Relationship Specialty Start Date End Date Melissa Cruz PA-C [address] [facility] [address] [place] [address] PCP - General Physician Pigment Furnace Tender 06/02/21 documented as of this encounter
[2024-08-10] MEDS: Patient's ALLERGY Info needs ENTERED STA (00:50)
[2024-08-10] MEDS: DAPTOmycin 375 MG in SYRINGE 0 ML IV SCH (01:26)
[2024-08-10] MEDS: 4.5GM X1 IV STA (01:29)
--- NOTE | 2024-08-10 02:42 | Ultrasound Report ---
EXAM: US venous doppler LE BI CLINICAL HISTORY: B/L LE edema, ? DVT. Exam very limited due to inc pt body habitus, BMI 57. No definite DVT detected in RLE or LLE. TECHNIQUE: Ultrasound examination of bilateral lower extremity veins was performed in real time and duplex. One or more of the following were performed- spectral analysis, resistive index, waveform analysis, and pulsed Doppler. COMPARISON: None. FINDINGS: Normal phasic, non-pulsatile and spontaneous flow is noted in bilateral common femoral, superficial femoral, popliteal and posterior tibial and peroneal veins. Visualized veins of both lower extremities demonstrate normal compressibility. No sonographic evidence of acute deep vein thrombosis (DVT) is detected in the visualized veins of both lower extremities. Compression and Augmentation: All evaluated veins compress fully with applied transducer pressure. Augmentation of venous flow is noted with distal compression. Additional Findings: No evidence of intraluminal thrombus. Edema in bilateral lower legs left more than right IMPRESSION: 1. Difficult examination due to body habitus. 2. No sonographic evidence of acute DVT is detected in bilateral examine veins Disclaimer: DVT could be missed early in the disease when clot burden is minimal. For patients with moderate and high pretest probability of DVT and negative ultrasound, the [place] [employer] clinical guidelines recommend testing with a D-dimer assay or repeat ultrasound in 5-7 days. If symptoms worsen, the Society of radiologists in ultrasound recommends repeating ultrasound even earlier. Electronically signed by Alfreda Gonzalez 08-10-2024 02:42 AM
[2024-08-10] MEDS: PIPERACILLIN/TAZOBACTAM 4.5 GM/100 ML BAG IV SCH (05:28)
[2024-08-10 06:54] LABS: Basophils # (auto) 0.04 K/uL (0.00-0.20); Basophils % (auto) 0.6 %; Eosinophils # (auto) 0.01 K/uL (0.00-0.50); Eosinophils % (auto) 0.1 %; Hematocrit (blood only) 32.4 % (37.0-47.0); Hemoglobin 10.4 g/dl (12.0-16.0); Immature Granulocytes # (auto) 0.04 K/uL (0.01-0.20); Immature Granulocytes % (auto) 0.6 %; Lymphocytes # (auto) 2.42 K/uL (1.20-3.40); Lymphocytes % (auto) 33.8 %; Mean Corpuscular Hemoglobin 26.5 pg (25.0-34.0); Mean Corpuscular Hgb Conc 32.1 g/dL (32.0-36.0); Mean Corpuscular Volume 82.7 fL (80.0-100.0); Mean Platelet Volume 9.7 fL (9.4-12.4); Neutrophils # (auto) 4.14 K/uL (1.40-6.50); Neutrophils % (auto) 57.9 %; Platelet Count 158 K/uL (130-400); RDW Coefficient of Variation 15.3 % (11.5-14.5); RDW Standard Deviation 45.7 fL (36.4-46.3); Red Blood Count 3.92 M/uL (4.20-5.40); White Blood Count 7.15 K/ul (4.8-10.8)
[2024-08-10 07:15] LABS: BUN Creatinine Ratio 47.8 (10-20); Calcium 8.8 mg/dl (8.6-10.3); Creatinine Clr Calc Pharmacy 147.7 ml/min; Potassium 4.1 mmol/L (3.5-5.1)
[2024-08-10 07:18] LABS: Estimated Average Glucose 97 mg/dl
[2024-08-10] MEDS: ENOXAPARIN INJ 40 MG/0.4 ML SYR SQ SCH (08:22)
[2024-08-10] MEDS: CETIRIZINE HCL 10 MG TABLET PO SCH (08:27)
[2024-08-10] MEDS: busPIRone 5 MG TAB PO SCH (08:27)
[2024-08-10] MEDS: FERROUS SULFATE 325 MG TAB PO SCH (08:28)
[2024-08-10] MEDS: lamoTRIgine 100 MG TAB PO SCH (08:28)
[2024-08-10] MEDS: PANTOprazole 40 MG TAB PO SCH (08:29)
[2024-08-10] MEDS: PREGABALIN 150 MG CAP PO SCH (08:42)
[2024-08-10] MEDS: POTASSIUM CHLORIDE 10 MEQ TABCR PO SCH (08:42)
[2024-08-10] MEDS ORDERED: DULoxetine HCL 60 MG CAP PO SCH (09:00)
--- NOTE | 2024-08-10 14:53 | Hospitalist Progress Note ---
Date of Service August 10, 2024 Assessment & Plan (1) Non-healing wound of lower extremity: Plan: 49-year-old female with past med history significant for mild persistent asthma, obstructive sleep apnea but for last 3 months not using CPAP, questionable heart failure, morbid obesity, GERD, bipolar disorder, recurrent major depression, general anxiety disorder, PTSD, lower EXTR lymphedema comes because of nonhealing bilateral lower extremity wounds. Lower extremity wounds started about a year ago. Initially was getting home health but currently following with wound care in [place]. As per patient and her friend the wounds are getting worse. There seems some discharge from wounds. Denies any fevers. As the wounds are not getting better came here today. Ambulates with a walker. Denies abdominal pain. Normal bowel and bladder movements. Appetite is okay. Denies any chest pain or shortness of breath. No abdominal pain. No nausea. Currently no headache. Has some runny nose from allergies. Currently no sore throat. No cough. No headache. Hemodynamics are okay. In July 2024 patient was in [facility] for depression and suicidal ideation. Patient currently denies any depression or thoughts to hurt herself. Nonhealing wounds of lower extremities Following-up with the wound care at [place] but not getting any better. Will follow wound cultures Consult wound care Empiric IV Dapto and Zosyn Consult ID Close monitor Morbid obesity Counseling Nutrition follow-up Is mobile with a walker and will get PT OT evaluation Obstructive sleep apnea Not using CPAP for last 3 months. Patient states the tubing intangles causing discomfort that is why not using Counseling Lower extremity lymphedema On Lasix as needed Takes potassium supplement. Will follow labs Will follow echo- mild concentric LVH, LV wall motion is normal, LV is hyperdynamic with EF more than 70%, RV is normal in size and function, grade 1 diastolic dysfunction and Doppler findings do not suggest pulmonary hypertension Will follow Dopplers- no evidence of DVTs Bipolar disorder Recurrent depression Generalized anxiety disorder PTSD Continue home meds DVT prophylaxis Lovenox Disposition Med/telemetry Full code. Admission and Anticipated Discharge Date Admission Date: August 09, 2024 Subjective 08/10/2024 The patient was seen and examined in emergency room She was admitted with worsening leg wounds and being unhappy with the care at [facility]/wound care Complains more pain and drainage from the wounds without any fever and/or chills Review of Systems Review of Systems: All systems reviewed and are unremarkable except as noted below Physical Exam Physical Exam: Lying in bed without any acute distress Constitutional: well developed, well nourished, + ill appearing and + morbidly obese Eyes: PERRL, conjunctivae normal, anicteric sclerae ENMT: external ear and nose normal, oropharynx normal Neck: trachea midline, no thyromegaly Respiratory: no respiratory distress Auscultation: lungs clear to auscultation bilaterally and + diminished lung sounds Cardiovascular: Rate/Rhythm: regular rate and regular rhythm; not tachycardic Heart Sounds: normal S1 and normal S2; no murmur Extremities: + edema ( significant lymphedema both the lower extremities , goes down below knees) Gastrointestinal (Abdomen): Inspection/Auscultation: + abdomen distended and normal bowel sounds Percussion/Palpation: abdomen soft; abdomen nontender Skin: Multiple bilateral leg wounds with yellowish drainage Neurologic: normal touch/pain/proprioception and moves all extremities; no focal motor deficits Psychiatric: A+Ox3, euthymic affect Lymphatic: no cervical or axillary lymphadenopathy Results & Data Results & Data Vital Signs (Past 12 Hours) Vital Signs Pulse Pulse Resp BP BP Pulse Ox O2 Del Method 08/10/24 10:42 79 16 99 08/10/24 10:00 82 20 100 08/10/24 10:00 123/64 08/10/24 09:51 79 10 L 08/10/24 09:15 71 15 98 08/10/24 09:00 125/71 08/10/24 08:30 85 14 95 08/10/24 08:00 132/71 08/10/24 07:48 65 21 95 08/10/24 07:24 69 08/10/24 07:00 70 20 100 08/10/24 06:30 77 16 100 08/10/24 06:06 72 16 100 08/10/24 05:43 70 18 122/65 99 Room Air 08/10/24 05:33 75 15 100 08/10/24 05:00 122/65 08/10/24 05:00 122/65 08/10/24 05:00 70 18 100 08/10/24 04:39 69 16 100 08/10/24 04:00 74 15 100 08/10/24 03:30 75 18 167/84 H 100 08/10/24 03:23 96 H 16 123/76 100 Room Air Laboratory Results Short CBC 08/09/24 08/10/24 Range/Units 20:55 05:00 WBC 8.53 7.15 (4.8-10.8) K/ul Hgb 11.9 L 10.4 L (12.0-16.0) g/dl Hct 38.4 32.4 L (37.0-47.0) % Plt Count 313 158 (130-400) K/uL BMP 08/09/24 08/10/24 20:55 05:00 Sodium 138 139 Potassium 3.9 4.1 Chloride 102 105 Carbon Dioxide 28 29 BUN 30 H 32 H Creatinine 0.82 0.67 Glucose 104 H 113 H Calcium 9.6 8.8 Liver Function 08/09/24 Range/Units 20:55 Total Bilirubin 0.8 (0.2-1.0) mg/dl AST 11 L (13-39) U/L ALT 9 (7-52) U/L Alkaline Phosphatase 88 (34-104) U/L Albumin 3.9 (3.4-5.0) gm/dl Medications Administered Current Inpatient Medications Acetaminophen (Acetaminophen 325 Mg Tab) 650 mg PO Q6H PRN PRN Reason: Pain or Fever Stop: 09/08/24 23:56 Aripiprazole (Aripiprazole 15 Mg Tab) 15 mg PO HS ROSE Stop: 09/09/24 20:59 Buspirone HCl (Buspirone 5 Mg Tab) 10 mg PO BID [facility] Stop: 09/09/24 08:59 Last Admin: 08/10/24 08:27 Dose: 10 mg Cetirizine HCl (Cetirizine Hcl 10 Mg Tablet) 10 mg PO DAILY RO[facility] Stop: 09/09/24 08:59 Last Admin: 08/10/24 08:27 Dose: 10 mg Clonazepam (Clonazepam 0.5 Mg Tab) 0.5 mg PO BID PRN PRN Reason: Anxiety Stop: 09/08/24 23:56 Duloxetine HCl (Duloxetine Hcl 60 Mg Cap) 60 mg PO HS ROSE Stop: 09/09/24 08:59 Enoxaparin Sodium (Enoxaparin Inj 40 Mg/0.4 Ml Syr) 40 mg SQ Q12H [facility] Stop: 09/09/24 07:59 Last Admin: 08/10/24 08:22 Dose: 40 mg Ferrous Sulfate (Ferrous Sulfate 325 Mg Tab) 325 mg PO DAILY [facility] Stop: 09/09/24 08:59 Last Admin: 08/10/24 08:28 Dose: 325 mg Furosemide (Furosemide 40 Mg Tab) 40 mg PO DAILY PRN PRN Reason: Edema Stop: 09/08/24 23:56 Daptomycin 375 mg/ Syringe 7.5 mls @ 3.75 mls/min IV Q24H [facility]; Protocol Stop: 08/17/24 00:59 Last Admin: 08/10/24 01:26 Dose: 3.75 mls/min Piperacillin Sod/Tazobactam Sod (Zosyn) 4.5 gm in 100 mls @ 25 mls/hr IV Q8H [facility]; Protocol Stop: 08/17/24 05:59 Last Admin: 08/10/24 13:35 Dose: 25 mls/hr Lamotrigine (Lamotrigine 100 Mg Tab) 100 mg PO BID [facility]; Protocol Stop: 09/09/24 08:59 Last Admin: 08/10/24 08:28 Dose: 100 mg Montelukast Sodium (Montelukast Sodium 10 Mg Tablet) 10 mg PO HS [facility] Stop: 09/09/24 20:59 Nitroglycerin (Nitroglycerin Sl 0.4 Mg/Tab Tab) 0.4 mg SL Q5M PRN PRN Reason: Chest Pain Stop: 09/08/24 23:56 Pantoprazole Sodium (Pantoprazole 40 Mg Tab) 40 mg PO DAILY [facility] Stop: 09/09/24 08:59 Last Admin: 08/10/24 08:29 Dose: 40 mg Polyethylene Glycol (Polyethylene (Miralax) 17 Gm Pack) 17 gm PO DAILY PRN PRN Reason: Constipation Stop: 09/08/24 23:56 Potassium Chloride (Potassium Chloride 10 Meq Tabcr) 10 meq PO DAILY [facility] Stop: 09/09/24 08:59 Last Admin: 08/10/24 08:42 Dose: 10 meq Pregabalin (Pregabalin 150 Mg Cap) 150 mg PO TID [facility] Stop: 09/09/24 08:59 Last Admin: 08/10/24 13:21 Dose: 150 mg
[2024-08-10] MEDS: ACETAMINOPHEN 325 MG TAB PO PRN (15:18)
[2024-08-10] MEDS: MONTELUKAST SODIUM 10 MG TABLET PO SCH (21:00)
[2024-08-10] MEDS: ARIPiprazole 15 MG TAB PO SCH (21:00)
[2024-08-10] MEDS: DULoxetine HCL 60 MG CAP PO SCH (21:01)
[2024-08-11 07:52] LABS: Basophils # (auto) 0.03 K/uL (0.00-0.20); Basophils % (auto) 0.4 %; Eosinophils # (auto) 0.01 K/uL (0.00-0.50); Eosinophils % (auto) 0.1 %; Hematocrit (blood only) 31.3 % (37.0-47.0); Hemoglobin 9.8 g/dl (12.0-16.0); Immature Granulocytes # (auto) 0.02 K/uL (0.01-0.20); Immature Granulocytes % (auto) 0.3 %; Lymphocytes # (auto) 2.48 K/uL (1.20-3.40); Lymphocytes % (auto) 37.1 %; Mean Corpuscular Hemoglobin 25.7 pg (25.0-34.0); Mean Corpuscular Hgb Conc 31.3 g/dL (32.0-36.0); Mean Corpuscular Volume 81.9 fL (80.0-100.0); Mean Platelet Volume 9.1 fL (9.4-12.4); Monocytes # (auto) 0.44 K/uL (0.11-0.59); Monocytes % (auto) 6.6 %; Neutrophils # (auto) 3.71 K/uL (1.40-6.50); Neutrophils % (auto) 55.5 %; Platelet Count 234 K/uL (130-400); RDW Coefficient of Variation 15.3 % (11.5-14.5); RDW Standard Deviation 45.8 fL (36.4-46.3); Red Blood Count 3.82 M/uL (4.20-5.40); White Blood Count 6.69 K/ul (4.8-10.8)
[2024-08-11 08:24] LABS: BUN Creatinine Ratio 27.5 (10-20); Calcium 8.9 mg/dl (8.6-10.3); Creatinine Clr Calc Pharmacy 107.6 ml/min; Potassium 4.3 mmol/L (3.5-5.1)
--- NOTE | 2024-08-11 12:23 | Hospitalist Progress Note ---
Date of Service August 11, 2024 Assessment & Plan (1) Non-healing wound of lower extremity: Plan: 49-year-old female with past med history significant for mild persistent asthma, obstructive sleep apnea but for last 3 months not using CPAP, questionable heart failure, morbid obesity, GERD, bipolar disorder, recurrent major depression, general anxiety disorder, PTSD, lower EXTR lymphedema comes because of nonhealing bilateral lower extremity wounds. Lower extremity wounds started about a year ago. Initially was getting home health but currently following with wound care in [place]. As per patient and her friend the wounds are getting worse. There seems some discharge from wounds. Denies any fevers. As the wounds are not getting better came here today. Ambulates with a walker. Denies abdominal pain. Normal bowel and bladder movements. Appetite is okay. Denies any chest pain or shortness of breath. No abdominal pain. No nausea. Currently no headache. Has some runny nose from allergies. Currently no sore throat. No cough. No headache. Hemodynamics are okay. In July 2024 patient was in [facility] for depression and suicidal ideation. Patient currently denies any depression or thoughts to hurt herself. Nonhealing wounds of lower extremities Following-up with the wound care at [place] but not getting any better. Will follow wound cultures-Showing a few gram-positive bacilli and rare gram- positive cocci. Pinpoint growth and reintubating Consult wound care Empiric IV Dapto and Zosyn Consult ID More drainage from the wounds without any fever and or chills Awaiting wound care nurse to evaluate and also ID consult Morbid obesity Counseling Nutrition follow-up Is mobile with a walker and will get PT OT evaluation Obstructive sleep apnea Not using CPAP for last 3 months. Patient states the tubing intangles causing discomfort that is why not using Counseling Lower extremity lymphedema On Lasix as needed Takes potassium supplement. Will follow labs Will follow echo- mild concentric LVH, LV wall motion is normal, LV is hyperdynamic with EF more than 70%, RV is normal in size and function, grade 1 diastolic dysfunction and Doppler findings do not suggest pulmonary hypertension Will follow Dopplers- no evidence of DVTs She has been on furosemide and will continue that Bipolar disorder Recurrent depression Generalized anxiety disorder PTSD Continue home meds DVT prophylaxis Lovenox Disposition Med/telemetry Full code. Admission and Anticipated Discharge Date Admission Date: August 09, 2024 Subjective 08/10/2024 The patient was seen and examined in emergency room She was admitted with worsening leg wounds and being unhappy with the care at [facility]/wound care Complains more pain and drainage from the wounds without any fever and/or chills 08/11/2024 Patient was seen and examined in medical telemetry unit She has been stable without any significant symptoms Denies any increasing pain in the legs and does not any fever and/or chills Review of Systems Review of Systems: All systems reviewed and are unremarkable except as noted below Physical Exam Physical Exam: Lying in bed without any acute distress Constitutional: well developed, well nourished, + ill appearing and + morbidly obese Eyes: PERRL, conjunctivae normal, anicteric sclerae ENMT: external ear and nose normal, oropharynx normal Neck: trachea midline, no thyromegaly Respiratory: no respiratory distress Auscultation: lungs clear to auscultation bilaterally and + diminished lung sounds Cardiovascular: Rate/Rhythm: regular rate and regular rhythm; not tachycardic Heart Sounds: normal S1 and normal S2; no murmur Extremities: + edema ( significant lymphedema both the lower extremities , goes down below knees) Gastrointestinal (Abdomen): Inspection/Auscultation: + abdomen distended and normal bowel sounds Percussion/Palpation: abdomen soft; abdomen nontender Neurologic: normal touch/pain/proprioception and moves all extremities; no focal motor deficits Psychiatric: A+Ox3, euthymic affect Lymphatic: no cervical or axillary lymphadenopathy Results & Data Results & Data Vital Signs (Past 12 Hours) Vital Signs Temp Pulse Pulse Resp BP BP Pulse Ox 08/11/24 11:04 36.7 C 79 16 127/80 96 08/11/24 09:41 08/11/24 07:26 36.8 C 86 16 112/72 94 08/11/24 07:03 81 08/11/24 02:52 37.0 C 82 18 122/78 94 O2 Del Method 08/11/24 11:04 Room Air 08/11/24 09:41 Room Air 08/11/24 07:26 Room Air 08/11/24 07:03 08/11/24 02:52 Room Air Laboratory Results Short CBC 08/11/24 Range/Units 06:16 WBC 6.69 (4.8-10.8) K/ul Hgb 9.8 L (12.0-16.0) g/dl Hct 31.3 L (37.0-47.0) % Plt Count 234 (130-400) K/uL BMP 08/11/24 06:16 Sodium 137 Potassium 4.3 Chloride 103 Carbon Dioxide 30 BUN 25 H Creatinine 0.91 Glucose 97 Calcium 8.9 Medications Administered Current Inpatient Medications Acetaminophen (Acetaminophen 325 Mg Tab) 650 mg PO Q6H PRN PRN Reason: Pain or Fever Stop: 09/08/24 23:56 Last Admin: 08/11/24 08:49 Dose: 650 mg Aripiprazole (Aripiprazole 15 Mg Tab) 15 mg PO HS RO[facility] Stop: 09/09/24 20:59 Last Admin: 08/10/24 21:00 Dose: 15 mg Buspirone HCl (Buspirone 5 Mg Tab) 10 mg PO BID [facility] Stop: 09/09/24 08:59 Last Admin: 08/11/24 08:50 Dose: 10 mg Cetirizine HCl (Cetirizine Hcl 10 Mg Tablet) 10 mg PO DAILY [facility] Stop: 09/09/24 08:59 Last Admin: 08/11/24 08:50 Dose: 10 mg Clonazepam (Clonazepam 0.5 Mg Tab) 0.5 mg PO BID PRN PRN Reason: Anxiety Stop: 09/08/24 23:56 Duloxetine HCl (Duloxetine Hcl 60 Mg Cap) 60 mg PO HS [facility] Stop: 09/09/24 08:59 Last Admin: 08/10/24 21:01 Dose: 60 mg Enoxaparin Sodium (Enoxaparin Inj 40 Mg/0.4 Ml Syr) 40 mg SQ Q12H [facility] Stop: 09/09/24 07:59 Last Admin: 08/11/24 08:49 Dose: 40 mg Ferrous Sulfate (Ferrous Sulfate 325 Mg Tab) 325 mg PO DAILY [facility] Stop: 09/09/24 08:59 Last Admin: 08/11/24 08:50 Dose: 325 mg Furosemide (Furosemide 40 Mg Tab) 40 mg PO DAILY PRN PRN Reason: Edema Stop: 09/08/24 23:56 Daptomycin 375 mg/ Syringe 7.5 mls @ 3.75 mls/min IV Q24H [facility]; Protocol Stop: 08/17/24 00:59 Last Admin: 08/11/24 01:24 Dose: 3.75 mls/min Piperacillin Sod/Tazobactam Sod (Zosyn) 4.5 gm in 100 mls @ 25 mls/hr IV Q8H [facility]; Protocol Stop: 08/17/24 05:59 Last Infusion: 08/11/24 10:05 Dose: Infused Lamotrigine (Lamotrigine 100 Mg Tab) 100 mg PO BID [facility]; Protocol Stop: 09/09/24 08:59 Last Admin: 08/11/24 08:50 Dose: 100 mg Montelukast Sodium (Montelukast Sodium 10 Mg Tablet) 10 mg PO HS [facility] Stop: 09/09/24 20:59 Last Admin: 08/10/24 21:00 Dose: 10 mg Nitroglycerin (Nitroglycerin Sl 0.4 Mg/Tab Tab) 0.4 mg SL Q5M PRN PRN Reason: Chest Pain Stop: 09/08/24 23:56 Pantoprazole Sodium (Pantoprazole 40 Mg Tab) 40 mg PO DAILY [facility] Stop: 09/09/24 08:59 Last Admin: 08/11/24 08:50 Dose: 40 mg Polyethylene Glycol (Polyethylene (Miralax) 17 Gm Pack) 17 gm PO DAILY PRN PRN Reason: Constipation Stop: 09/08/24 23:56 Potassium Chloride (Potassium Chloride 10 Meq Tabcr) 10 meq PO DAILY [facility] Stop: 09/09/24 08:59 Last Admin: 08/11/24 08:49 Dose: 10 meq Pregabalin (Pregabalin 150 Mg Cap) 150 mg PO TID [facility] Stop: 09/09/24 08:59 Last Admin: 08/11/24 08:49 Dose: 150 mg
[2024-08-11] MEDS: oxyCODONE HCL IR 5 MG TAB (IMMEDIATE RELEASE) PO PRN (13:00)
[2024-08-11] MEDS: KETOROLAC 30 MG/ML VIAL IV ONE (15:27)
--- NOTE | 2024-08-11 16:04 | Infectious Disease Consult ---
Date of Service August 11, 2024 Telehealth Information I performed this visit using a real-time telehealth connection between my location and the patients location ([facility]). After connecting through interactive tele-video, patient was identified by name and date of and/or wristband check.Patient (or authorized healthcare jewelry sales representative) was informed that this was a telemedicine visit and it was being conducted confidentially over secure lines. My office door was closed and no one else was present in the room with me.Patient (or authorized healthcare jewelry sales representative) provided consent to proceed with the visit, expressed an understanding of privacy and security of the telemedicine visit, and gave permission to have a hospital jewelry sales representative in the room in order to assist with the visit and to conduct portions of the visit, as needed. I informed the patient (or authorized healthcare jewelry sales representative) that I reviewed their record and presented the opportunity for them to ask any questions regarding the visit today. The patient agreed to participate. Assessment & Plan (1) Non-healing wound of lower extremity: (2) Cellulitis of leg: Plan: Assessment: Chronic nonhealing wounds on LE b/l r/o wound infection w/ cellulitis Morbid obesity w/ chronic lymphedema Recommendations: - Stop daptomycin iv and zosyn - Start linezolid 600 mg po bid to cover usual skin pathogens that cause skin and soft tissue infection such as MRSA and Strep spp. Not too concerned about possible interaction between linezolid and her psychiatric medications. - If she clinically improves on linezolid (i.e., improving warmth, tenderness and erythema on the skin surrounding the wounds), may continue linezolid monotherapy to complete total 10-14 days. - I recommend dermatology evaluation for skin biopsy for the chronic wounds for pathology (infectious vs noninfectious cause such as skin malignacy vs autoimmune process) and bacterial, fungal and AFB smear/culture - Will continue to follow. I spent a total of 60 minutes coordinating, documenting, and providing care for this patient excluding time spent in the performance of separately billed services or time spent by another provider/QHP. History of Present Illness History of Present Illness This is a 49 y/o morbidly obese female (Brittney) w/ hx of chronic lymphedema in LE, JORGE A, and multiple psychiatric issues, who presented to [facility] on 08/09/24 for evaluation for evaluation of the progressively worsening, nonhealing b/l LE extremity wounds of 1 year: she follows up w/ wound care in [place]. She has noticed discharge from the wounds as well. She has tried augmentin and amoxicillin for 10 days about 2-3 months ago without any improvement. No fever or leukocytosis. She has burning sensation in the wounds, worse w/ leg movement and skin rubbing each other, w/ warmth and tenderness. Those symptoms have been present for about 1 month or 2. No f/c, n/v, abd pain, diarrhea, coughing, cp, sob or urinary symptoms. Mandy, a nursing staff, was present to assist. Allergies Allergy/AdvReac Type Severity Reaction Status Date / Time aspirin AdvReac Nose Bleed Verified 08/10/24 00:43 Home Medications Medication Instructions Recorded Confirmed Type aripiprazole 15 mg tablet 15 mg PO HS 08/09/24 08/09/24 History buspirone 10 mg tablet 10 mg PO BID 08/09/24 08/09/24 History cetirizine 10 mg tablet 10 mg PO DAILY 08/09/24 08/09/24 History clonazepam 1 mg tablet 0.5 mg PO BID PRN Anxiety 08/09/24 08/09/24 History diclofenac sodium 75 mg 75 mg PO TID 08/09/24 08/09/24 History tablet,delayed release duloxetine 60 mg capsule,delayed 60 mg PO DAILY 08/09/24 08/09/24 History release ferrous sulfate 28 mg iron tablet 28 mg PO DAILY 08/09/24 08/09/24 History furosemide 40 mg tablet 40 mg PO DAILY PRN Edema 08/09/24 08/09/24 History lamotrigine 100 mg tablet 100 mg PO BID 08/09/24 08/09/24 History montelukast 10 mg tablet 10 mg PO HS 08/09/24 08/09/24 History omeprazole 20 mg capsule,delayed 20 mg PO DAILY 08/09/24 08/09/24 History release potassium chloride 10 mEq 10 meq PO DAILY 08/09/24 08/09/24 History tablet,extended release pregabalin 150 mg capsule 150 mg PO TID 08/09/24 08/09/24 History Patient History Social History Smoking Status: Former smoker Hx Alcohol Use: No Hx Substance Use: No Preferred Language: Nepali Communication Ability: Effective Landscape Photographer Required: No Beliefs That Will Affect Care: None Current Living Situation: Other Current Living Situation Comment: roommate Feels Safe at Home: Yes Assistive Devices: CPAP, Glasses and Walker Review of Systems as above and all others negative Physical Exam Gen: no acute distrelss Lungs: breathing comfortably on room air Results & Data Vital Signs (Past 12 Hours) Vital Signs Temp Pulse Pulse Resp BP BP Pulse Ox 08/11/24 14:59 78 08/11/24 11:04 36.7 C 79 16 127/80 96 08/11/24 09:41 08/11/24 07:26 36.8 C 86 16 112/72 94 08/11/24 07:03 81 O2 Del Method 08/11/24 14:59 08/11/24 11:04 Room Air 08/11/24 09:41 Room Air 08/11/24 07:26 Room Air 08/11/24 07:03 Laboratory Results WBC 6.69K H 9.8K Plt 234K Cr 0.91 Doppler 1. Difficult examination due to body habitus. 2. No sonographic evidence of acute DVT is detected in bilateral examine veins Medications Administered Daptomycin Zosyn
--- NOTE | 2024-08-12 14:11 | Hospitalist Progress Note ---
Date of Service August 12, 2024 Assessment & Plan (1) Non-healing wound of lower extremity: Plan: 49-year-old female with past med history significant for mild persistent asthma, obstructive sleep apnea but for last 3 months not using CPAP, questionable heart failure, morbid obesity, GERD, bipolar disorder, recurrent major depression, general anxiety disorder, PTSD, lower EXTR lymphedema comes because of nonhealing bilateral lower extremity wounds. Lower extremity wounds started about a year ago. Initially was getting home health but currently following with wound care in [place]. As per patient and her friend the wounds are getting worse. There seems some discharge from wounds. Denies any fevers. As the wounds are not getting better came here today. Ambulates with a walker. Denies abdominal pain. Normal bowel and bladder movements. Appetite is okay. Denies any chest pain or shortness of breath. No abdominal pain. No nausea. Currently no headache. Has some runny nose from allergies. Currently no sore throat. No cough. No headache. Hemodynamics are okay. In July 2024 patient was in [facility] for depression and suicidal ideation. Patient currently denies any depression or thoughts to hurt herself. Nonhealing wounds of lower extremities Following-up with the wound care at [place] but not getting any better. Will follow wound cultures-Showing a few gram-positive bacilli and rare gram- positive cocci. Pinpoint growth and reintubating Consult wound care Empiric IV Dapto and Zosyn Consult ID More drainage from the wounds without any fever and or chills Awaiting wound care nurse to evaluate and also ID consult Appreciate wound care input and recommendation Appreciate ID input and recommendation some Will start Zyvox 600 mg twice daily for a few days and then once daily up to 14 days in total Her BuSpar has been on hold until the Zyvox is finished to decrease the drug interaction She will have usual follow-up with her wound clinic at [place] Morbid obesity Counseling Nutrition follow-up Is mobile with a walker and will get PT OT evaluation Obstructive sleep apnea Not using CPAP for last 3 months. Patient states the tubing intangles causing discomfort that is why not using Counseling Lower extremity lymphedema On Lasix as needed Takes potassium supplement. Will follow labs Will follow echo- mild concentric LVH, LV wall motion is normal, LV is hyperdynamic with EF more than 70%, RV is normal in size and function, grade 1 diastolic dysfunction and Doppler findings do not suggest pulmonary hypertension Will follow Dopplers- no evidence of DVTs She has been on furosemide and will continue that Her peripheral pulses are pretty good and palpable and does not require any arterial duplex Bipolar disorder Recurrent depression Generalized anxiety disorder PTSD Continue home meds BuSpar is on hold until the course of antibiotic is finished DVT prophylaxis Lovenox Disposition Med/telemetry Full code. Admission and Anticipated Discharge Date Admission Date: August 09, 2024 Subjective 08/10/2024 The patient was seen and examined in emergency room She was admitted with worsening leg wounds and being unhappy with the care at [facility]/wound care Complains more pain and drainage from the wounds without any fever and/or chills 08/11/2024 Patient was seen and examined in medical telemetry unit She has been stable without any significant symptoms Denies any increasing pain in the legs and does not any fever and/or chills 08/12/2024 The patient was seen and examined in medical telemetry unit She has been stable with increasing pain in the leg wounds She denies any fever and no chills, no nausea and/or vomiting Review of Systems Review of Systems: All systems reviewed and are unremarkable except as noted below Physical Exam Physical Exam: Lying in bed without any acute distress Constitutional: well developed, well nourished, + ill appearing and + morbidly obese Eyes: PERRL, conjunctivae normal, anicteric sclerae ENMT: external ear and nose normal, oropharynx normal Neck: trachea midline, no thyromegaly Respiratory: no respiratory distress Auscultation: lungs clear to auscultation bilaterally and + diminished lung sounds Cardiovascular: Rate/Rhythm: regular rate and regular rhythm; not tachycardic Heart Sounds: normal S1 and normal S2; no murmur Extremities: + edema ( significant lymphedema both the lower extremities , goes down below knees) Gastrointestinal (Abdomen): Inspection/Auscultation: + abdomen distended and normal bowel sounds Percussion/Palpation: abdomen soft; abdomen nontender Skin: Bilateral leg wounds as in the picture Neurologic: normal touch/pain/proprioception and moves all extremities; no focal motor deficits Psychiatric: A+Ox3, euthymic affect Lymphatic: no cervical or axillary lymphadenopathy Results & Data Results & Data Vital Signs (Past 12 Hours) Vital Signs Temp Pulse Resp BP Pulse Ox O2 Del Method 08/12/24 07:44 36.6 C 65 18 104/68 94 Room Air 08/12/24 03:54 36.7 C 79 18 109/67 95 Room Air Medications Administered Current Inpatient Medications Acetaminophen (Acetaminophen 325 Mg Tab) 650 mg PO Q6H PRN PRN Reason: Pain or Fever Stop: 09/08/24 23:56 Last Admin: 08/12/24 13:36 Dose: 650 mg Aripiprazole (Aripiprazole 15 Mg Tab) 15 mg PO HS ROSE Stop: 09/09/24 20:59 Last Admin: 08/11/24 19:50 Dose: 15 mg Buspirone HCl (Buspirone 5 Mg Tab) 10 mg PO BID ROSE Stop: 09/09/24 08:59 Last Admin: 08/12/24 08:04 Dose: 10 mg Cetirizine HCl (Cetirizine Hcl 10 Mg Tablet) 10 mg PO DAILY ROSE Stop: 09/09/24 08:59 Last Admin: 08/12/24 08:04 Dose: 10 mg Clonazepam (Clonazepam 0.5 Mg Tab) 0.5 mg PO BID PRN PRN Reason: Anxiety Stop: 09/08/24 23:56 Duloxetine HCl (Duloxetine Hcl 60 Mg Cap) 60 mg PO HS [facility] Stop: 09/09/24 08:59 Last Admin: 08/11/24 19:51 Dose: 60 mg Enoxaparin Sodium (Enoxaparin Inj 40 Mg/0.4 Ml Syr) 40 mg SQ Q12H ROSE Stop: 09/09/24 07:59 Last Admin: 08/12/24 08:04 Dose: 40 mg Ferrous Sulfate (Ferrous Sulfate 325 Mg Tab) 325 mg PO DAILY ROSE Stop: 09/09/24 08:59 Last Admin: 08/12/24 08:03 Dose: 325 mg Furosemide (Furosemide 40 Mg Tab) 40 mg PO DAILY PRN PRN Reason: Edema Stop: 09/08/24 23:56 Piperacillin Sod/Tazobactam Sod (Zosyn) 4.5 gm in 100 mls @ 25 mls/hr IV Q8H [facility]; Protocol Stop: 08/17/24 05:59 Last Admin: 08/12/24 13:10 Dose: Not Given Lamotrigine (Lamotrigine 100 Mg Tab) 100 mg PO BID [facility]; Protocol Stop: 09/09/24 08:59 Last Admin: 08/12/24 08:03 Dose: 100 mg Linezolid (Linezolid 600 Mg Tab) 600 mg PO BID ROSE Stop: 08/19/24 20:59 Montelukast Sodium (Montelukast Sodium 10 Mg Tablet) 10 mg PO HS ROSE Stop: 09/09/24 20:59 Last Admin: 08/11/24 19:51 Dose: 10 mg Nitroglycerin (Nitroglycerin Sl 0.4 Mg/Tab Tab) 0.4 mg SL Q5M PRN PRN Reason: Chest Pain Stop: 09/08/24 23:56 Oxycodone HCl (Oxycodone Hcl Ir 5 Mg Tab (Immediate Release)) 5 mg PO Q6H PRN PRN Reason: Pain Stop: 08/25/24 12:34 Last Admin: 08/12/24 13:36 Dose: 5 mg Pantoprazole Sodium (Pantoprazole 40 Mg Tab) 40 mg PO DAILY ROSE Stop: 09/09/24 08:59 Last Admin: 08/12/24 08:03 Dose: 40 mg Polyethylene Glycol (Polyethylene (Miralax) 17 Gm Pack) 17 gm PO DAILY PRN PRN Reason: Constipation Stop: 09/08/24 23:56 Potassium Chloride (Potassium Chloride 10 Meq Tabcr) 10 meq PO DAILY ROSE Stop: 09/09/24 08:59 Last Admin: 08/12/24 08:03 Dose: 10 meq Pregabalin (Pregabalin 150 Mg Cap) 150 mg PO TID ROSE Stop: 09/09/24 08:59 Last Admin: 08/12/24 13:37 Dose: 150 mg
[2024-08-12] MEDS: LINEZOLID 600 MG TAB PO SCH (21:23)
--- NOTE | 2024-08-13 11:41 | Discharge Summary ---
Discharge Summary Date of Service August 13, 2024 Principal Dx & Hospital Course #1 = Principal Diagnosis (1) Cellulitis of leg: (2) Non-healing wound of lower extremity: (3) Non-healing wound of right lower extremity: (4) Morbid obesity: (5) Lymphedema associated with obesity: (6) Venous stasis of lower extremity: Plan Patient 49-year-old female with chronic lower extremity lymphedema and morbid obesity presents to the emergency room with complaints of lower extremity wounds that have been somewhat chronic for the past year. Concerned that there is seem to be some increasing discharge from the wounds and not improving. Patient was admitted to the hospital. Started on broad-spectrum antibiotics. Infectious disease and wound care consultations were obtained. Superficial wound culture from the right lower extremity is growing MRSA. Infectious disease recommended transitioning to Zyvox. Patient will need ongoing wound care. Case management is helping coordinate ongoing wound care. Patient was tolerating the Zyvox. BuSpar will be held while on the Zyvox and then can be resumed. Patient can pursue further outpatient peripheral vascular evaluations through her PCP. Notes For Next Care Provider Consider outpatient lower extremity arterial Dopplers and venous duplex testing. Consider outpatient weight management referral Medication Changes From Visit Zyvox for 14 days Hold BuSpar while on Zyvox Admission HPI Per Admitting Provider 49-year-old female with past med history significant for mild persistent asthma, obstructive sleep apnea but for last 3 months not using CPAP, questionable heart failure, morbid obesity, GERD, bipolar disorder, recurrent major depression, general anxiety disorder, PTSD, lower EXTR lymphedema comes because of nonhealing bilateral lower extremity wounds. Lower extremity wounds started ab out a year ago. Initially was getting home health but currently following with wound care in [place]. As per patient and her friend the wounds are getting worse. There seems some discharge from wounds. Denies any fevers. As the wounds are not getting better came here today. Ambulates with a walker. Denies abdominal pain. Normal bowel and bladder movements. Appetite is okay. Denies any chest pain or shortness of breath. No abdominal pain. No nausea. Currently no headache. Has some runny nose from allergies. Currently no sore throat. No cough. No headache. Hemodynamics are okay. In July 2024 patient was in [facility] for depression and suicidal ideation. Patient currently denies any depression or thoughts to hurt herself. Past medical history. As mentioned above Past surgical history. Dental surgery. Hysteroscopy. Hysteroscopy endometrial ablation. Remote kidney stone. Cholecystectomy. Social history. Quit smoking 2011. Smoked 1 pack a day for 5 years. Alcohol rarely. No drug use. Family history. Mother had cervical cancer. CAD. COPD. Father had emphysema. Brother had depression. Admission Exam Per Admitting Provider See H&P Discharge Exam Constitutional: Alert, nontoxic, morbidly obese Lungs: Clear to auscultation, decreased, no wheezes rales or rhonchi CV: S1-S2, regular Abdomen: Soft, obese Extremities: Chronic lower extremity lymphedema Derm: Chronic lower extremity wounds/ulcerations, no real significant surrounding erythema, no significant warmth, wounds in various stages of healing Psych: Cooperative, normal mood Updated Medication List Medication Instructions Recorded Confirmed Type aripiprazole 15 mg tablet 15 mg PO HS 08/09/24 08/09/24 History buspirone 10 mg tablet 10 mg PO BID 08/09/24 08/09/24 History cetirizine 10 mg tablet 10 mg PO DAILY 08/09/24 08/09/24 History clonazepam 1 mg tablet 0.5 mg PO BID PRN Anxiety 08/09/24 08/09/24 History diclofenac sodium 75 mg 75 mg PO TID 08/09/24 08/09/24 History tablet,delayed release duloxetine 60 mg capsule,delayed 60 mg PO DAILY 08/09/24 08/09/24 History release ferrous sulfate 28 mg iron tablet 28 mg PO DAILY 08/09/24 08/09/24 History furosemide 40 mg tablet 40 mg PO DAILY PRN Edema 08/09/24 08/09/24 History lamotrigine 100 mg tablet 100 mg PO BID 08/09/24 08/09/24 History montelukast 10 mg tablet 10 mg PO HS 08/09/24 08/09/24 History omeprazole 20 mg capsule,delayed 20 mg PO DAILY 08/09/24 08/09/24 History release potassium chloride 10 mEq 10 meq PO DAILY 08/09/24 08/09/24 History tablet,extended release pregabalin 150 mg capsule 150 mg PO TID 08/09/24 08/09/24 History linezolid 600 mg tablet 600 mg PO BID #28 tabs 08/13/24 Rx linezolid 600 mg tablet (Zyvox) 600 mg PO BID 14 days #28 tabs 08/13/24 Rx Hospital Stay Data Consultations 08/09/24 22:12 ED Decision to Admit Stat 08/10/24 09:00 Consult Infectious Diseases Routine Diagnostic Imagining Performed 08/10/24 US venous doppler LE BI Routine Reviewed imaging, laboratory and diagnostic studies. Pertinent findings as below. Echocardiogram showed normal ejection fraction, no evidence of pulmonary hypertension, I refer you to the full report for details Wound culture is growing MRSA sensitive to the Zyvox ultrasound of the lower extremities was difficult due to her body habitus, but no definitive DVT was seen WBC 6.6 Hemoglobin 9.8 Electrolytes within normal range Creatinine 0.91 Pending Results Patient Have Any Pending Studies at Discharge: No Discharge Instructions Given to Patient (Per Discharging Provider) Continue course of oral antibiotics Follow-up with wound clinic as coordinated Follow-up with PCP for additional outpatient testing Total Time Total Time Spent Total Time Spent (In Minutes): 32
[2024-08-14 07:53] VITALS: BP 130/80; PULSE 73; RESP 16; TEMP 97.9; O2SAT 94
== END 2024-08-14 13:41 | disposition home or self-care (01) | DRG 603 ==
LOC: ED 20:30 → SUATTDRO 23:00 → EDINP 23:00 → 2N 23:58 → 3E 08-13 18:35

== ENCOUNTER 2024-12-08 10:46 | Inpatient (IN) ==
--- NOTE | 2024-12-08 11:14 | Emergency Department Note ---
History of Present Illness General Chief complaint: Infection Stated complaint: INFECTION IN RT LEG Time Seen by Provider: 12/08/24 10:54 History of Present Illness Maximum Pain Intensity: 6 This is a 49-year-old female that presents to the emergency department via private vehicle with complaints of "right leg pain, fevers, chills". The patient notes ongoing wounds to the bilateral lower extremities for the past few years. She follows with the wound care center in [place]. She does note admission to this hospital in August of this year secondary to infection. Per review of the EMR, wound culture of the right leg at that time revealed MRSA. She was hospitalized, on a combination of Zosyn plus Dapto and only discharged on linezolid per ID recommendation. She notes intermittent fevers/chills over the past few days. Home Medications Medication Instructions Recorded Confirmed Type aripiprazole 15 mg tablet 15 mg PO HS 08/09/24 12/08/24 History buspirone 10 mg tablet 10 mg PO BID 08/09/24 12/08/24 History cetirizine 10 mg tablet 10 mg PO DAILY 08/09/24 12/08/24 History ferrous sulfate 28 mg iron tablet 28 mg PO DAILY 08/09/24 12/08/24 History lamotrigine 100 mg tablet 100 mg PO BID 08/09/24 12/08/24 History montelukast 10 mg tablet 10 mg PO HS 08/09/24 12/08/24 History omeprazole 20 mg capsule,delayed 20 mg PO DAILY 08/09/24 12/08/24 History release potassium chloride 10 mEq 10 meq PO DAILY 08/09/24 12/08/24 History tablet,extended release pregabalin 150 mg capsule 150 mg PO TID 08/09/24 12/08/24 History cholecalciferol (vitamin D3) 50 50 mcg PO DAILY 12/08/24 12/08/24 History mcg (2,000 unit) tablet clonazepam 0.5 mg tablet 0.25 mg PO BID PRN Anxiety 12/08/24 12/08/24 History duloxetine 20 mg capsule,delayed 20 mg PO BID 12/08/24 12/08/24 History release furosemide 40 mg tablet 40 mg PO DAILY PRN Edema 12/08/24 12/08/24 History memantine 10 mg tablet 10 mg PO HS 12/08/24 12/08/24 History memantine 5 mg tablet 5 mg PO DAILY 12/08/24 12/08/24 History oxybutynin chloride 5 mg 5 mg PO DAILY 12/08/24 12/08/24 History tablet,extended release 24 hr turmeric 400 mg capsule 400 mg PO DAILY 12/08/24 12/08/24 History Allergies Allergy/AdvReac Type Severity Reaction Status Date / Time aspirin AdvReac Nose Bleed Verified 08/10/24 00:43 Past Med/Surg History Problem List (Updated 12/08/24 @ 19:04 by Deo Bartholomew PA-C) Non-healing wound of left lower extremity Venous stasis of lower extremity Lymphedema associated with obesity Morbid obesity Cellulitis of leg (Acute) Non-healing wound of lower extremity Non-healing wound of right lower extremity (Acute) Social History Smoking Status: Former smoker Hx Alcohol Use: Yes Hx Substance Use: No Preferred Language: [place] Communication Ability: Effective Presser [place] Required: No Beliefs That Will Affect Care: None Current Living Situation: Other Current Living Situation Comment: roommate, 4 cats, 2 dogs in [place] Other Information That Helps Us Care for You: No Feels Safe at Home: Yes Safety Concerns: Feels Safe At This Time Assistive Devices: Glasses and Walker Review of Systems A total of 10 systems reviewed and were otherwise negative Physical Exam Vital Signs Vital Signs - 24 hr 12/08/24 10:48 12/08/24 11:20 Temperature 36.3 C L Temperature Source Temporal Artery Scan Pulse Rate 79 75 Respiratory Rate 14 Blood Pressure 124/80 Blood Pressure Mean 94 Pulse Oximetry 97 Oxygen Delivery Method Room Air Sepsis New/Unexplained Change in Mental Status No Sepsis Action Taken by Nursing No Action Required VITAL SIGNS - Vital signs and nursing notes were reviewed. Stable and afebrile. GENERAL -49-year-old female appearing her stated age who is in no acute distress. Communicates well with provider and answers questions appropriately. SKIN -large erythematous wounds to the bilateral and medial lower extremities predominantly knee and distal. Surrounding erythema noted. Bandages present over the wounds on arrival. HEAD - NC/AT. EYES - PERRL with EOMI bilaterally. Sclera anicteric. EARS - No deformities of external structures noted on gross examination bilaterally NOSE - Midline and without cyanosis. No epistaxis or purulent drainage noted. MOUTH/OROPHARYNX - Without perioral cyanosis. NECK - Neck with FROM. No nuchal rigidity. LUNGS - CTA CARDIAC - RRR EXTREMITIES -skin as above. Lower extremity edema noted bilaterally with erythema and wounds to the bilateral anterior pretibial soft tissues. +5/5 strength noted in UE/LE bilaterally. NEUROLOGIC -sensory intact throughout the lower extremities without deficit. PSYCH -alert, oriented and pleasant on exam Course Administered Medications Ceftriaxone Sodium (Rocephin) 2,000 mg in 50 mls @ 100 mls/hr IV Q24H ROSE Stop: 12/15/24 15:59 Last Infusion: 12/08/24 16:46 Dose: Infused Documented By: Admin: 12/08/24 16:15 Dose: 100 mls/hr Documented By: CARITO Pregabalin (Pregabalin 150 Mg Cap) 150 mg PO TID ROSE Stop: 01/07/25 15:56 Last Admin: 12/08/24 16:15 Dose: 150 mg Documented By: CARITO Discontinued Medications Acetaminophen (Acetaminophen 500 Mg Tab) 500 mg PO NOW STA Stop: 12/08/24 13:30 Last Admin: 12/08/24 13:55 Dose: 500 mg Documented By: MINERVA Daptomycin 600 mg/ Syringe 12 mls @ 0 mls/min IV NOW STA; Protocol Stop: 12/08/24 12:00 Last Admin: 12/08/24 12:45 Dose: 6 mls/min Documented By: GIORGI Medical Decision Making Laboratory Data 12/08/24 11:45 12/08/24 11:45 Lab Results 12/08/24 12/08/24 Range/Units 11:45 12:02 WBC 8.36 (4.8-10.8) K/ul RBC 4.03 L (4.20-5.40) M/uL Hgb 10.6 L (12.0-16.0) g/dl Hct 33.2 L (37.0-47.0) % MCV 82.4 (80.0-100.0) fL MCH 26.3 (25.0-34.0) pg MCHC 31.9 L (32.0-36.0) g/dL RDW Std Deviation 45.8 (36.4-46.3) fL RDW Coeff of Mignon 15.3 H (11.5-14.5) % Plt Count 260 (130-400) K/uL MPV 8.8 L (9.4-12.4) fL Immature Gran % (Auto) 0.5 % Neut % (Auto) 69.6 % Lymph % (Auto) 24.5 % [place] % (Auto) 4.9 % Eos % (Auto) 0.0 % Baso % (Auto) 0.5 % Neut # (Auto) 5.82 (1.40-6.50) K/uL Lymph # (Auto) 2.05 (1.20-3.40) K/uL [place] # (Auto) 0.41 (0.11-0.59) K/uL Eos # (Auto) 0.00 (0.00-0.50) K/uL Baso # (Auto) 0.04 (0.00-0.20) K/uL Immature Gran # (Auto) 0.04 (0.01-0.20) K/uL Sodium 139 (136-145) mmol/L Potassium 4.1 (3.5-5.1) mmol/L Chloride 104 (98-107) mmol/L Carbon Dioxide 30 (21-32) mmol/L Anion Gap 5 (3-11) BUN 23 (6-23) mg/dl Creatinine 0.78 (0.6-1.2) mg/dl Est Cr Clr Drug Dosing 121.9 ml/min eGFR 93.63 BUN/Creatinine Ratio 29.5 H (10-20) Glucose 100 H (70-99(Fasting)) mg/dl Lactate 0.9 (0.4-2.0) mmol/L Calcium 8.9 (8.6-10.3) mg/dl Total Bilirubin 1.0 (0.2-1.0) mg/dl AST 9 L (13-39) U/L ALT 4 L (7-52) U/L Alkaline Phosphatase 72 (34-104) U/L Total Protein 7.2 (6.0-8.3) gm/dl Albumin 3.5 (3.4-5.0) gm/dl Globulin 3.7 (2.5-4.0) gm/dl Albumin/Globulin Ratio 0.9 (0.9-2) HCG, Qual Negative (Negative) MDM Narrative Patient was seen and evaluated as above in room C03. Review was performed of triage nursing notes and vital signs. I did review pertinent previous visits and patient history. After obtaining a thorough history and physical examination the above work up was performed. I did review the [facility] EMR as accessible via high risk case manager regarding recent wound care visit. Options of care were discussed with the patient. IV access was established. Labs were drawn. I did speak with our in-house wound care team, and we will proceed with Aquacel Ag, ABD pad and Kerlix pending formal wound care team evaluation later in the patient's hospitalization. Labs reveal no leukocytosis. There is anemia with hemoglobin of 10.6. No emergent metabolic disturbance. hCG negative. Procalcitonin is pending and the lactate is negative. Blood culture pending as is wound culture from the right anterior leg wound. Noting the patient's symptoms and appearance of these wounds I do believe that further evaluation and management in the inpatient setting is warranted. I also reviewed the infectious disease consultation note as needed 08/11/2024. At this time noting the patient's wound appearance is with subjective systemic symptoms to include intermittent fevers, chills and feeling unwell we will proceed with IV antibiotics. IV daptomycin ordered. It was felt that the benefit outweighed risk. Case discussed with the hospitalist service. Please refer to further documentation regarding her stay. Verbal consent was obtained and I did change the dressings. The wounds were cleansed with sterile saline and sterile gauze. Areas were dried with sterile gauze. Aquacel Ag, ABD pad and Kerlix dressings applied. Patient tolerated this well. GCS: 15 In the evaluation and treatment of this patient the following differential diagnoses were entertained: Cellulitis, abscess, necrotizing fasciitis, among others Impression & Plan Cellulitis of leg Discharge Plan Visit Data Chief Complaint: Infection Stated Complaint: INFECTION IN RT LEG ED Provider: Nora Parekh ED Midlevel Provider: Deo Bartholomew Discharge Problem: Cellulitis of leg Patient Disposition: Admitted As Inpatient Condition: Fair Discharge Instructions Interventions: ED Discharge Assessment Last Done: 12/08/24 15:57
[2024-12-08 12:15] LABS: Basophils # (auto) 0.04 K/uL (0.00-0.20); Basophils % (auto) 0.5 %; Hematocrit (blood only) 33.2 % (37.0-47.0); Hemoglobin 10.6 g/dl (12.0-16.0); Immature Granulocytes # (auto) 0.04 K/uL (0.01-0.20); Immature Granulocytes % (auto) 0.5 %; Lymphocytes # (auto) 2.05 K/uL (1.20-3.40); Lymphocytes % (auto) 24.5 %; Mean Corpuscular Hemoglobin 26.3 pg (25.0-34.0); Mean Corpuscular Hgb Conc 31.9 g/dL (32.0-36.0); Mean Corpuscular Volume 82.4 fL (80.0-100.0); Mean Platelet Volume 8.8 fL (9.4-12.4); Monocytes # (auto) 0.41 K/uL (0.11-0.59); Monocytes % (auto) 4.9 %; Neutrophils # (auto) 5.82 K/uL (1.40-6.50); Neutrophils % (auto) 69.6 %; Platelet Count 260 K/uL (130-400); RDW Coefficient of Variation 15.3 % (11.5-14.5); RDW Standard Deviation 45.8 fL (36.4-46.3); Red Blood Count 4.03 M/uL (4.20-5.40); White Blood Count 8.36 K/ul (4.8-10.8)
[2024-12-08 12:33] LABS: Albumin Globulin Ratio 0.9 (0.9-2); Albumin Level 3.5 gm/dl (3.4-5.0); BUN Creatinine Ratio 29.5 (10-20); Calcium 8.9 mg/dl (8.6-10.3); Creatinine Clr Calc Pharmacy 121.9 ml/min; Globulin 3.7 gm/dl (2.5-4.0); Potassium 4.1 mmol/L (3.5-5.1); Total Protein 7.2 gm/dl (6.0-8.3)
[2024-12-08 12:35] LABS: Pregnancy Test, Serum Negative (Negative)
[2024-12-08] MEDS: DAPTOmycin 600 MG in SYRINGE 0 ML IV STA (12:45)
[2024-12-08] MEDS: ACETAMINOPHEN 500 MG TAB PO STA (13:55)
--- NOTE | 2024-12-08 14:16 | History & Physical Report ---
Date of Service December 08, 2024 Assessment & Plan (1) Lymphedema associated with obesity: (2) Cellulitis of leg: (3) Non-healing wound of right lower extremity: (4) Non-healing wound of left lower extremity: Plan This is a 49 yr old F who has a significant PMH of Bipolar disorder, depression with anxiety, PTSD, asthma, JORGE A noncompliant with CPAP, b/l lymphedema, chronic lower extremity wounds and morbid obesity who presents to ED 2/2 worsening RLE wounds, redness and pain x 3-4 days. #Bilateral lymphedema #Suspect bilateral venous ulcers #Right lower extremity Cellulitis #Bilateral lower extremity wounds, POA admit to medical continue IV Daptomycin and initiate IV rocephin await blood and wound culture contact precautions due to previous MRSA consult wound nurse, ED provider martin spoke to Taisha who recommended Aquacel Ag with abd/kerlix which we placed will await formal wound consult pt wishing to transition to [place] Wound care if feasible with her transportation situation obtain arterial dopplers, she had venous duplex in august which was negative but limited due to body habitus wound recommend lymphedema clinic as well once wounds heal #Morbid Obesity, BMI 68.6 counseling, nutrition follow up #JORGE A: noncompliant with Cpap #Bipolar disorder #Recurrent depression #LYNSEY #PTSD continue cymbalta, abilify, buspar, memantidine #DVT ppx: Lovenox BID FULL CODE PCP: Melissa Cruz Dispo: admit to medical Pt was seen and examined in collaboration with Dr. Pabon, please see addendum I spent a total of 61 minutes coordinating, documenting and providing care for this patient excluding time spent in the performance of separately billed services or time spent by another provider/QHP. History of Present Illness Chief Complaint: Worsening RLE wound/infection x 3-4 days. Primary Care Provider: Melissa Cruz PA-C This is a 49 yr old F who has a significant PMH of Bipolar disorder, depression with anxiety, PTSD, asthma, JORGE A noncompliant with CPAP, b/l lymphedema, chronic lower extremity wounds and morbid obesity who presents to ED 2/2 worsening RLE wounds, redness and pain x 3-4 days. Family member is at bedside who is a outpatient pharmacy manager and also helps elicit history. At baseline pt ambulates with a walker and she does not drive. She has been following with wound clinic down at [facility] for 2 years and overall wounds are worsening per family member. Over the last 3-4 days they noted increased redness, pain and warm to the wound along with increased drainage and smell. She denies any change in her lymphedema. She generally has felt chills, sweats, feverish, generally unwell and a headache. She denies any photophobia/phonophobia, vision/hearing changes, chest pain, sob, n/v/d, abd pain, change in bowel or urinary habits. In ED pts CBC, CMP was generally unremarkable. She was last hospitalized in August with a similar presentation in which her wounds grew MRSA. She was treated with IV Dapto and transitioned to Linezolid at discharge. In ED she was started on IV dapto and blood/wound cultures were obtained. Allergies Allergy/AdvReac Type Severity Reaction Status Date / Time aspirin AdvReac Nose Bleed Verified 08/10/24 00:43 Home Medications Medication Instructions Recorded Confirmed Type aripiprazole 15 mg tablet 15 mg PO HS 08/09/24 12/08/24 History buspirone 10 mg tablet 10 mg PO BID 08/09/24 12/08/24 History cetirizine 10 mg tablet 10 mg PO DAILY 08/09/24 12/08/24 History ferrous sulfate 28 mg iron tablet 28 mg PO DAILY 08/09/24 12/08/24 History lamotrigine 100 mg tablet 100 mg PO BID 08/09/24 12/08/24 History montelukast 10 mg tablet 10 mg PO HS 08/09/24 12/08/24 History omeprazole 20 mg capsule,delayed 20 mg PO DAILY 08/09/24 12/08/24 History release potassium chloride 10 mEq 10 meq PO DAILY 08/09/24 12/08/24 History tablet,extended release pregabalin 150 mg capsule 150 mg PO TID 08/09/24 12/08/24 History cholecalciferol (vitamin D3) 50 50 mcg PO DAILY 12/08/24 12/08/24 History mcg (2,000 unit) tablet clonazepam 0.5 mg tablet 0.25 mg PO BID PRN Anxiety 12/08/24 12/08/24 History duloxetine 20 mg capsule,delayed 20 mg PO BID 12/08/24 12/08/24 History release furosemide 40 mg tablet 40 mg PO DAILY PRN Edema 12/08/24 12/08/24 History memantine 10 mg tablet 10 mg PO HS 12/08/24 12/08/24 History memantine 5 mg tablet 5 mg PO DAILY 12/08/24 12/08/24 History oxybutynin chloride 5 mg 5 mg PO DAILY 12/08/24 12/08/24 History tablet,extended release 24 hr turmeric 400 mg capsule 400 mg PO DAILY 12/08/24 12/08/24 History Past Med/Surg History Problem List (Updated 12/08/24 @ 14:08 by Gris Shannon PA-C) Non-healing wound of left lower extremity Venous stasis of lower extremity Lymphedema associated with obesity Morbid obesity Cellulitis of leg Non-healing wound of lower extremity Non-healing wound of right lower extremity (Acute) Social History Smoking Status: Former smoker Hx Alcohol Use: No Hx Substance Use: No Preferred Language: Setswana Communication Ability: Effective Teacher Home Therapy Required: No Beliefs That Will Affect Care: None Current Living Situation: Other Current Living Situation Comment: roommate Feels Safe at Home: Yes Assistive Devices: CPAP, Glasses and Walker Review of Systems Review of Systems: All systems reviewed & are unremarkable except as noted in HPI & below Physical Exam Physical Exam: constitutional: WD/WN, morbidly obese, vitals as above, NAD, sitting up in bed, pleasant, conversing easily Head: Normocephalic, Atraumatic Eyes: PERRL, conjunctivae normal, anicteric sclerae ENMT: external ear and nose normal, oropharynx normal Neck: trachea midline, no thyromegaly normal visual inspection Respiratory: normal respiratory effort, lungs clear to auscultation, no wheeze, rales, rhonchi. Normal insp/exp effort, no accessory muscle use Cardiovascular: RRR, no murmur, bilateral lower extremity lymph edema with b/l pretibial wounds. RLE with erythema around wounds, warm and foul smelling drainage. No surrounding erythema to LLE wounds. Vessels: no JVD or carotid bruit Chest: normal inspection of chest Abdomen: obese abd, normal bowel sounds, soft, nontender, Musculoskeletal: no cyanosis or clubbing, limited lower ext ROM 2/2 to pain and lymphedema Skin: no rashes, warm and dry normal turgor Neurologic: no face palsy, no dysarthria CN's II-XI intact bilaterally and moves all extremities Psychiatric: A+Ox3, euthymic affect Results & Data Results & Data Vital Signs (Past 12 Hours) Vital Signs Temp Pulse Resp BP Pulse Ox O2 Del Method 12/08/24 11:20 75 12/08/24 10:48 36.3 C L 79 14 124/80 97 Room Air Laboratory Results Short CBC 12/08/24 Range/Units 11:45 WBC 8.36 (4.8-10.8) K/ul Hgb 10.6 L (12.0-16.0) g/dl Hct 33.2 L (37.0-47.0) % Plt Count 260 (130-400) K/uL BMP 12/08/24 11:45 Sodium 139 Potassium 4.1 Chloride 104 Carbon Dioxide 30 BUN 23 Creatinine 0.78 Glucose 100 H Calcium 8.9 Liver Function 12/08/24 Range/Units 11:45 Total Bilirubin 1.0 (0.2-1.0) mg/dl AST 9 L (13-39) U/L ALT 4 L (7-52) U/L Alkaline Phosphatase 72 (34-104) U/L Albumin 3.5 (3.4-5.0) gm/dl Medications Administered Medication List Discontinued Medications Acetaminophen (Acetaminophen 500 Mg Tab) 500 mg PO NOW STA Stop: 12/08/24 13:30 Last Admin: 12/08/24 13:55 Dose: 500 mg Documented By: MINERVA Daptomycin 600 mg/ Syringe 12 mls @ 0 mls/min IV NOW STA; Protocol Stop: 12/08/24 12:00 Last Admin: 12/08/24 12:45 Dose: 6 mls/min Documented By: GIORGI Code Status & VTE Plan Code Status FULL CODE VTE Prophylaxis Plan VTE Prophylaxis will be ordered: Yes Supervising Physician Co-Signing Physician Notes Patient is a 49-year-old female with history of mood disorder, asthma, JORGE A, morbid obesity, chronic lymphedema with bilateral lower extremity wounds and other comorbidities presents with history of worsening bilateral lower extremity wounds associated with erythema and pain which worsened since last 3 to 4 days duration. Patient follows with wound clinic at [facility]. She admits to have increased drainage from the wounds associated with some chills. Please review HPI for complete details of presentation. I personally reviewed blood work. Blood work fairly within normal limits. Procalcitonin pending. Arterial Doppler studies pending. Blood cultures pending. Physical Exam: Vitals signs as noted above General Appearance: Morbidly obese, no apparent distress Head: normocephalic, Atraumatic Eyes: normal inspection, EOMI Neck: supple, Trachea midline Respiratory/Chest: Normal breath sounds, CTA, No accessory muscle use Cardiovascular: S1, S2, No murmur Abdomen/GI:Soft, Non tender, Bowel sounds present Extremities/Musculoskeletal:normal inspection, + B/L LE lymphedema, multiple wounds in dressing Neurologic/Psych:AAOX3, grossly no focal neurological deficits Skin: normal color, warm Right lower extremity cellulitis Chronic bilateral lower extremity nonhealing wounds/ulcers Chronic lymphedema Morbid obesity No signs of sepsis h/o MRSA Will empirically start on broad-spectrum antibiotics IV daptomycin, Rocephin Will obtain arterial Doppler studies to rule out PAD Continue Lasix scheduled to help with edema Needs follow-up with lymphedema clinic on discharge Infectious disease consulted Continue local wound care Follow-up blood culture I personally interviewed and examined the patient at bedside. I have reviewed the advanced practitioner's documentation on the date of service referred in note and agree with plan. Patient's care is coordinated with Gris Guo. Please refer to the documentation above for details of patient's presentation and for discussion of other issues. I spent a total of32 minutes coordinating, documenting, and providing care for this patient excluding time spent in the performance of separately billed services or time spent by another provider/QHP. (2) Cellulitis of leg Laterality: right Qualified Code(s): L03.115 - Cellulitis of right lower limb
--- OUTSIDE RECORDS SUMMARY | 2024-12-08 15:09 | External Medical Summary | Summary of Care ---
Author Name Unknown Organization [facility] Address [address] [place] [address] Phone [phone] Care Team Providers Care Melter Operator Name Role Phone CarylTy mansfieldanthony Downing PA-C Primary Care Provider [phone] Encounter Details Date Type Department Care Team (Late st Contact Info) Description 12/03/2024 Telephone Sleep Disorders Medicine Marilee Caruso [address] [place] [id number] Greg Morse PA-C [address] [facility] [place] [address] Allergies Active Allergy Reactions Criticality Noted Date Comments Aspirin 01/27/2014 Increased bleeding documented as of this encounter (statuses as of 12/03/2024) Medications traZODone (DESYREL) 50 MG Tablet Take [...] EVERY DAY 90 Capsule 3 4 Active Ferrous Sulfate 28 MG Oral [...] 4 Active Furosemide 40 MG Oral Tablet (Lasix)Indication s:Lymphedema Take 1 Tablet by mouth daily as needed (edema). 4 Active Montelukast Sodium 10 MG Oral Tablet (Singulair)Indica tions:Mild persistent asthma without complication Take 1 Tablet by mouth at bedtime. 90 Tablet 3 5 Active Cetirizine HCl 10 MG Oral Tablet (ZyrTEC)Indicatio ns:Mild persistent asthma without complication TAKE 1 TABLET BY MOUTH EVERY DAY 90 Tablet 1 5 Active Potassium Chloride ER 10 MEQ Oral Tablet Extended ReleaseIndication s:Edema, unspecified type TAKE 1 TABLET BY MOUTH EVERY DAY IN THE MORNING 90 Tablet 1 5 Active Tart Garcia 1200 MG Oral Capsule Take 3,600 mg by mouth once. Active Turmeric Complex/Black Pepper 5-1000 MG Oral Capsule (Black Pepper-Turmeric) Take 2 Capsules by mouth once. Active Vitamin D3 50 MCG (1999 UT) Oral CapsuleIndication s:Vitamin D deficiency TAKE 1 CAPSULE BY MOUTH EVERY DAY IN THE MORNING 90 Capsule 5 Active Pregabalin 150 MG Oral Capsule (Lyrica)Indicatio ns:Neuropathy Take 1 Capsule by mouth in the morning and 1 Capsule at noon and 1 Capsule before bedtime. 90 Capsule 2 5 Active oxyBUTYnin Chloride ER 5 MG Oral Tablet Extended Release 24 Hour (Ditropan XL) Take 1 Tablet by mouth in the morning. 90 Tablet 11 5 Active Memantine HCl 5 MG Oral Tablet (Namenda) TAKE 5 MG ONCE DAILY FOR 7 DAYS, THEN INCREASE TO 5 MG TWICE DAILY UNTIL SEEN AGAIN. FOR PAIN 60 Tablet 1 5 Active Memantine HCl 10 MG Oral TabletIndications :Neuropathy Take 5 mg in the morning and 10 mg at night for 7 days then take 10 mg twice daily. For Pain 60 Tablet 1 5 Active documented as of this encounter (statuses as of 12/03/2024) Active Problems Problem Noted Date Diagnosed Date Bipolar disorder, current episode depressed, mod erate 07/11/2024 Neuropathy 07/26/2023 PTSD (post-traumatic stress disorder) 08/22/2017 LYNSEY (generalized anxiety disorder) 07/23/2017 Lymphedema 04/27/2017 JORGE A (obstructive sleep apnea) 11/08/2016 Severe episode of recurrent major depressive disorder, without psychotic features 03/15/2015 Mild intermittent asthma without complication Lumbago 08/28/2014 Right knee DJD 08/28/2014 Esophageal reflux 01/27/2014 Calculus of kidney 04/01/2010 documented as of this encounter (statuses as of 12/03/2024) Resolved Problems Problem Noted Date Diagnosed Date Resolved Date Bipolar I disorder, current or most recent episode depressed, with psychotic features 09/16/2024 09/16/2024 Chronic ulcer of lower extremity 07/29/2024 09/04/2024 Heart failure 07/29/2024 09/04/2024 Type 2 diabetes mellitus wit h hemoglobin A1c goal of less than 7.0% 07/29/2024 09/04/2024 Class 3 severe obesity due t o excess calories with serious comorbidity and body mass index (BMI) greater than or equal to 70 in adult 10/06/2020 09/04/2024 Bipolar disorder 08/22/2017 09/04/2024 Body mass index (BMI) greate r than [...] as of this encounter (statuses as of 12/03/2024) Immunizations Name Administration Dates Next Due HEPATITIS B VACCINE, RECOMB, 20 MCG/ML, ADULT (HEPLISAV-B) 09/16/2024 Pneumococcal Conjugate Vacci ne, 20-valent ([id number]) 12/04/2022 Pneumococcal Polysaccharide PPV23 (Pneumovax) 05/06/2011 Seasonal [...] Cigarettes 1 5 1 08/06/2006 - 06/06/2012 Passive Smoke Exposure: Current Smokeless Tobacco: Never Alcohol Use Standard Drinks/Week [...] Date Recorded PHQ Adult Total Score 0 09/16/2024 Hunger Vital Sign Answer Date Recorded Within the past 12 months, y ou worried that your food would run out before you got the money to buy more. Never true 09/16/19 25 Within the past 12 months, t he food you bought just didn't last and you didn't have money to get more. Never true 09/16/2024 Childcare Answer Date Recorded Do you feel overwhelmed with taking care of a child, family member or friend? No 09/16/2024 Does your family need help f inding childcare? (Household - for ages 0-17 years) Not on file 09/16/2024 Clothing Answer Date Recorded Have you been unable to get clothing when it was really needed? No 09/16/2024 Is your family able to get c lothes or diapers when needed? (Household - for ages 0-17 years) Not on file 09/16/2024 Personal Safety Answer Date Recorded Do you feel unsafe or have concerns for your saf ety? No 09/16/2024 Do you have concerns for you r family's safety? (Household - for ages 0-17 years) Not on file 09/16/2024 Utilities Answer Date Recorded Do you have trouble paying y our heating, water, or electric bill? No 09/16/2024 Is your family able to pay t he heat, water, or electric bill? (Household - for ages 0-17 years) Not on file 09/16/2024 Does your family have access to good internet? (Household - for ages 0-17 years) Not on file 09/16/2024 Employment Status Answer Date Recorded Are you unemployed or without regular income? No 09/16/2024 Does the household have a re gular source of income? (Household - for ages 0-17 years) Not on file 09/16/2024 Social Connections Answer Date Recorded How often do you feel lonely or isolated from th ose around you? Never 09/16/2024 Financial Resource Strain Answer Date R ecorded Do you have any trouble payi ng for your medications, or do you think you might in the future? No 09/16/2024 Does your family have troubl e paying for medicine? (Household - for ages 0-17 years) Not on file 09/16/2024 Transportation Needs Answer Date Record ed Do you have trouble getting a ride to medical visits or work? (Adult - for ages 18 years and over) Not on file 09/16/2024 Does your family have a hard time getting a ride to doctors visits? (Household - for ages 0-17 years) Not on file 09/16/2024 Has lack of transportation k ept you from medical appointments, meetings, work, or from getting things needed for daily living? Check all that apply. No 09/16/2024 Do you (or your family) have trouble finding or paying for a ride (transportation)? (Household - for ages 0-17 years) Not on file 09/16/2024 Housing Stability Answer Date Recorded Do you currently live in a s helter or have no steady place to sleep at night? No 09/16/2024 Do you think you are at risk of becoming homeless? (Adult - for ages 18 years and over) Not on file 09/16/2024 Does your family worry about paying for your home or becoming homeless? (Household - for ages 0-17 years) Not on file 0 09/16/2024 Are you homeless or worried that you might be in the future? No 09/16/2024 Are you (or your family) camila eless [...] ages 0-17 years) Not on file 07/10/2024 Food Insecurity Answer Date Recorded Within the past 12 months, y ou worried that your food would run out before you got the money to buy more. Never true 09/16/19 25 Within the past 12 months, t he food you bought just didn't last and you didn't have money to get more. Never true 09/16/2024 Do you need food for this week? No 09/16/2024 Comments No Sex and Gender Information Value [...] Department Care Team (Latest Contact Info) Description 12/05/2024 10:30 AM EDT Nurse Only Wound Care, [address] [place] [address] [facility], Nurse Wound Care [address] [place] [address] 12/09/2024 10:30 AM EDT Nurse Only Wound Care, [address] [address] [facility], Nurse Wound Care [address] [place] [address] 12/12/2024 10:30 AM EDT Nurse Only Wound Care, [address] [place] [address] [facility], Nurse Wound Care [address] [place] [address] [place] [address] 12/15/2024 10:30 AM EDT Nurse Only Wound Care, [address] [address] [facility], Nurse Wound Care [address] [place] [address] 12/19/2024 10:30 AM EDT Nurse Only Wound Care, [address] [place] [address] [facility], Nurse Wound Care [address] [place] [address] 01/05/2025 10:40 AM EDT Office Visit Wound Care, [address] [place] [address] Yuriy Hilario MD [address] [place] [address] 01/07/2025 9:30 AM EDT Telemedicine Pharmacy, [place] [address] [place] [address] [place] [address] [place], [address] [place] [address] 2025 2:30 PM EDT Office Visit Orthopaedics, [place] [address] [place] [address] Franky Avitia PA-C [address] [place] [address] 01/23/2025 10:09 AM EDT Hospital Encounter OR [facility], Operating Room, [facility] - 4th Floor [address] [place] [phone] Joel Truong MD [address] [place] [address] 01/23/2025 10:09 AM EDT - 01/23/2025 10:53 AM EDT Surgery OR [facility], Operating Room, [facility] - 4th Floor [address] [place] [phone] Joel Truong MD [address] [place] [address] COLONOSCOPY FLEXIBLE PROXIMAL DIAGNOSTIC 01/26/2025 3:30 PM EDT Office Visit Cardiology, [place] [address] [place] [address] Geovanna Patel PA-C [address] [place] [address] 02/05/2025 3:00 PM EDT Appointment Cardiac Studies, [facility] [address] [place] [address] 02/19/2025 11:20 AM EDT Office Visit [facility] [place] Mar[place] [address] [place] [address] Cem Madrigal MD [address] [place] [address] 06/04/2025 1:30 PM EDT Telemedicine Sleep Disorders Medicine Marilee Caruso [address] [place] [id number] Greg Morse PA-C [address] [place] [address] Scheduled Procedures Name Priority Associated Diagnoses Date/Ti me COLONOSCOPY FLEXIBLE PROXIMAL DIAGNOSTIC Screening for colon cancer 01/23/2025 10:09 AM EDT Health Maintenance Due Date Last Done Comments HPV/Co-Test 01/12/2006 Mammogram 06/06/2019 06/06/2018, 09/18/2016 Cologuard 01/12/2021 Colonoscopy 01/12/2021 12/02/2008 Colorectal Cancer Screening 01/12/2021 Fecal Occult Blood Test 01/12/2021 Sigmoidoscopy 01/12/2021 Cervical Cancer Screening 01/11/2024 Pap Smear 01/11/2024 01/10/2021, 10/05, 02/10/2009 COVID-19 Vaccine ( season) 2024 Hepatitis B Vaccine (2 of 2 - CpG 2-dose series) 10/14/2024 09/16/2024 DTap/Tdap Vaccines (2 - Td or Tdap) 01/20/2025 01/20/2015 Depression Monitoring 09/16/2025 09/16/2024 , 07/09/2024, 03/10/2024 Diabetes Screening 07/15/2027 07/15/2024, [...] on patient's age to complete this topic Meningitis B Vaccine (Bexsero/Trumemba) Aged Out No longer eligible based on patient's age to complete this topic documented as of this encounter Medical Devices Implanted Type Area Knowledge Architect Device Identifier Shelf Expiration Date Model / Serial / Lot Device Perm Cntrl [id number] - [id number] Implanted:Qty: 2 on 09/27/2015 by Sharda Ruiz, Corey Rucker MD at OR [facility] Uterus [employer] 05/03/2017 [id number] / / [id number] documented as of this encounter Visit Diagnoses Diagnosis JORGE A (obstructive sleep apnea)- Primary Obstructive sleep apnea (adult) (pediatric) Screening for colon cancer Special screening for [...] Power of Attor benoit? No Care Teams Melter Operator Relationship Specialty Start Date End Date Melissa Cruz PA-C [address] [place] [phone] PCP - General Physician [place] Operator 09/29/24 documented as of this encounter
--- OUTSIDE RECORDS SUMMARY | 2024-12-08 15:09 | External Medical Summary | Summary of Care ---
Author Name Unknown Organization [facility] Address [address] [place] [address] Phone [phone] Care Team Providers Care Janitorial Manager Name Role Phone CarylMelissa mansfield Chang FONSECA Primary Care Provider +1- [phone] Reason for Visit * Reason Onset Date Comments Appointment 11/20/2024 Wound Nurse Appo intment Encounter Details Date Type Department Care Team (Late st Contact Info) Description 11/20/2024 Telephone Wound Care, [facility] [address] [place], [place] [id number] Care, Nurse Wound [address] [place] [address] Appointment (Wound Nurse Appointment) Allergies Active Allergy Reactions Criticality Noted Date Comments Aspirin 01/27/2014 Increased bleeding documented as of this encounter (statuses as of 12/08/2024) Medications traZODone (DESYREL) 50 MG Tablet Take 1 Tab by mouth at bedtime as needed, may repeat once for Sleep. 30 Tab 8 Active Albuterol Sulfate HFA 108 (90 Base) MCG/ACT Inhalation Aerosol SolutionIndicati ons:Mild persistent asthma without complication 2 puffs every 4 hours as needed for shortness of breath/cough 18 g 2 2 Active Fluticasone Propionate 50 MCG/ACT Nasal Suspension (Flonase)Indicat ions:Acute maxillary sinusitis, recurrence not specified SPRAY 2 SPRAYS INTO EACH NOSTRIL IN THE MORNING 16 mL 3 Active Omeprazole 20 MG Oral Capsule Delayed Release (PriLOSEC)Indica tions:Gastroesop hageal reflux disease without esophagitis TAKE 1 CAPSULE [...] 4 Active Furosemide 40 MG Oral Tablet (Lasix)Indicatio ns:Lymphedema Take 1 Tablet by mouth daily as needed (edema). 4 Active Montelukast Sodium 10 MG Oral Tablet (Singulair)Indic ations:Mild persistent asthma without complication Take 1 Tablet by mouth at bedtime. 90 Tablet 3 5 Active Cetirizine HCl 10 MG Oral Tablet (ZyrTEC)Indicati ons:Mild persistent asthma without complication TAKE 1 TABLET BY MOUTH EVERY DAY 90 Tablet 1 5 Active Potassium Chloride ER 10 MEQ Oral Tablet Extended ReleaseIndicatio ns:Edema, unspecified type TAKE 1 TABLET BY MOUTH EVERY DAY IN THE MORNING 90 Tablet 1 5 Active Tart Garcia 1200 MG Oral Capsule Take 3,600 mg by mouth once. Active Turmeric Complex/Black Pepper 5-1000 MG Oral Capsule (Black Pepper-Turmeric) Take 2 Capsules by mouth once. Active Vitamin D3 50 MCG (2000 UT) Oral CapsuleIndicatio ns:Vitamin D deficiency TAKE 1 CAPSULE BY MOUTH EVERY DAY IN THE MORNING 90 Capsule 5 Active Pregabalin 150 MG Oral Capsule (Lyrica)Indicati ons:Neuropathy Take 1 Capsule by mouth in the morning and 1 Capsule at noon and 1 Capsule before bedtime. 90 Capsule 2 5 Active clonazePAM 1 MG Oral Tablet (KlonoPIN) Take 1 Tablet by mouth 2 times a day as needed for Anxiety. 4 12/03/19 25 Discontin ued(Medic ation List Clean Up) Memantine HCl 5 MG Oral Tablet Take 5 mg once daily for 7 days, then increase to 5 mg twice daily until seen again. For pain 60 Tablet 1 5 12/03/19 25 Discontin ued(Medic ation/Dos e Changed) documented as of this encounter (statuses as of 12/08/2024) Active Problems Problem Noted Date Diagnosed Date [...] as of this encounter (statuses as of 12/08/2024) Resolved Problems Problem Noted Date Diagnosed Date [...] as of this encounter (statuses as of 12/08/2024) Immunizations Name Administration Dates Next Due HEPATITIS B VACCINE, RECOMB, 20 MCG/ML, ADULT (HEPLISAV-B) 09/16/2024 Pneumococcal Conjugate Vacci ne, 20-valent ([id number]) 12/04/2022 Pneumococcal Polysaccharide PPV23 (Pneumovax) 05/06/2011 Seasonal [...] Telephone Encounter - Kalyn Rivera OSA - 11/20/2024 12:54 PM EDT I spoke with the patient and offered 11:30 am on 12/01/24 per the wound nurse. This time will not work for her. She will keep the wound nurse appointment on 12/02/24. * Telephone Encounter - Naima Brady OSA - 11/20/2024 10:11 AM EDT Good morning, Patient is calling in about her appointment on December 02 that she is needing to have changed. Asked if there was anywy it can be on the . Please advise & patient would like a call back. Naima Stout documented in this encounter Plan of Treatment Upcoming Encounters Date Type Department Care Team (Latest Contact Info) Description 12/09/2024 10:30 AM EDT Nurse Only Wound Care, [address] [address] [facility], Nurse Wound Care [address] [place], [place] [address] [address] 12/12/2024 10:30 AM EDT Nurse Only Wound Care, [address] [address] [facility], Nurse Wound Care [address] [place], [place] [address] [address] 12/15/2024 10:30 AM EDT Nurse Only Wound Care, [address] [address] [facility], Nurse Wound Care [address] [place], [place] [address] [address] 12/19/2024 10:30 AM EDT Nurse Only Wound Care, [address] [place] [address] [facility], Nurse Wound Care [address] [facility] [place] [address] 01/05/2025 10:40 AM EDT Office Visit Wound Care, [facility] [address] [facility] [place] [address] Yuriy Hilario MD [address] [place] [address] 01/07/2025 9:30 AM EDT Telemedicine Pharmacy, [place] [address] [facility] [place] [address] [place] [employer] [address] [facility] [place] [address] 2025 2:30 PM EDT Office Visit Orthopaedics, [place] [address] [place] [address] Franky Avitia PA-C [address] [place] [address] 01/23/2025 10:09 AM EDT Hospital Encounter OR [facility], Operating Room, [facility] - 4th Floor [address] [facility] [place] [address] Joel Truong MD [address] [place] [address] 01/23/2025 10:09 AM EDT - 01/23/2025 10:53 AM EDT Surgery OR [facility], Operating Room, [facility] - 4th Floor [address] [facility] [place] [id number] Joel Truong MD [address] [place] [address] COLONOSCOPY FLEXIBLE PROXIMAL DIAGNOSTIC 01/26/2025 3:30 PM EDT Office Visit Cardiology, [place] [address] [place] [address] Geovanna Patle [facility]-C [facility] [place] [address] 02/05/2025 3:00 PM EDT Appointment Cardiac Studies, [facility] [place] [address] 02/19/2025 11:20 AM EDT Office Visit [facility] [place] [address] [facility] [place] [address] Cem Madrigal MD [address] [place] [address] 06/04/2025 1:30 PM EDT [facility]medicine [facility] [address] [place] [id number] Greg Morse PA-C [address] [facility] [place] [address] Scheduled Procedures Name Priority Associated Diagnoses Date/Ti [...] this encounter Medical Devices Implanted Type Area Drum Sander Device Identifier Shelf Expiration Date Model / Serial / Lot Device Perm Cntrl [id number] - [id number] Implanted:Qty: 2 on 09/27/2015 by Sharda Ruiz, Corey Rucker MD at OR [facility] Uterus [employer] 05/03/2017 [id number] / / [id number] documented as of this encounter Advance Directives [...] Power of Attor benoit? No Care Teams Janitorial Manager Relationship Specialty Start Date End Date Melissa Cruz PA-C [address] [place] [address] PCP - General Physician Channel Lip Wetter 09/29/24 documented as of this encounter
--- OUTSIDE RECORDS SUMMARY | 2024-12-08 15:09 | External Medical Summary | Summary of Care ---
Author Name Unknown Organization [facility] Address [address] [place] [address] Phone [phone] Care Team Providers Care Wallpaper Scraper Name Role Phone Melissa Cruz Chang FONSECA Primary Care Provider +1- [phone] Reason for Visit * Reason Comments Wound Care BLE Patient presents with Unna boots removed - states they were removed Sunday when they started to slide downPatient presents without foam pads to RLE - states she removed them this morning Encounter Details Date Type Department Care Team (Late st Contact Info) Description 12/05/2024 10:30 AM EDT Nurse Only Wound Care, [facility] [address] [place] [address] [facility], Nurse Wound Care [address] [place] [address] Wound Care (BLE /Patient presents with Unn... Allergies Active Allergy Reactions Criticality Noted Date Comments Aspirin 01/27/2014 Increased bleeding documented as of this encounter (statuses as of 12/05/2024) Medications traZODone (DESYREL) 50 MG Tablet Take [...] as of this encounter (statuses as of 12/05/2024) Active Problems Problem Noted Date Diagnosed Date [...] as of this encounter (statuses as of 12/05/2024) Resolved Problems Problem Noted Date Diagnosed Date [...] as of this encounter (statuses as of 12/05/2024) Immunizations Name Administration Dates Next Due HEPATITIS B VACCINE, RECOMB, 20 MCG/ML, ADULT (HEPLISAV-B) 09/16/2024 Pneumococcal Conjugate Vacci ne, 20-valent ([id number]) 12/04/2022 Pneumococcal Polysaccharide PPV23 (Pneumovax) 05/06/2011 Seasonal [...] No 09/16/2024 Does the household have [facility] of [...] Pressure - - Pulse - - Temperature 37.2 °C (99 °F) 12/05/2024 10:46 AM EDT Respiratory Rate - - Oxygen Saturation - - Inhaled Oxygen Concentration - - Weight - - Height - - Body Mass Index - - documented in this encounter Patient Instructions * Patient Instructions* Veda Jacobson CMA - 12/05/2024 1:24 PM EDT Compression Therapy Education: Any questions, redness or swelling around the wound and development of a temperature of 101F or greater, please contact the [facility]. Please check your toes frequently. If they become blue, purple, pale, cool, numb, and/or tingling elevate your leg higher than your heart for one hour. If you have no relief of the symptoms, cut the entire wrap off and call the [facility], . Keep the wrap dry. If the wrap slides down or bunches at the ankle, call [facility]. Elevate legs above heart for 30 minutes [...] some drainage from the Unna boot dressing. Don’t be alarmed if thedrainage smells bad. The dressing pulls drainage from the wound into the dressing. The odor you smell is from the dressing, not the wound. Don’t get your Unna boot wet. Cover the [...] Nursing Notes * Veda Jacobson CMA - 12/05/2024 1:16 PM EDT Treatment done as ordered by Dr. Hilario Optifoelvia [employer] gentle to each wound bed, ABD pads used to shape leg and then wrapped with Kerlix and secured with transpore white Unna boot BLE Size #5 Surgilast used to protect wrap Socks and shoes applied to BLE Compression education reviewed with patient and understanding was voiced Patient was advised to call sooner than next scheduled appointment with any questions/concerns Discharge Instructions: Unna Boot You will be [...] some drainage from the Unna boot dressing. Don’t be alarmed if thedrainage smells bad. The dressing pulls drainage from the wound into the dressing. The odor you smell is from the dressing, not the wound. Don’t get your Unna boot wet. Cover the [...] boot dressing that smells different than usual Compression Therapy Education: Any questions, redness or swelling around the wound and development of a temperature of 101F or greater, please contact the [facility]. Please check your toes frequently. If they become blue, purple, pale, cool, numb, and/or tingling elevate your leg higher than your heart for one hour. If you have no relief of the symptoms, cut the entire wrap off and call the [facility], . Keep the wrap dry. If the wrap slides down or bunches at the ankle, call [facility]. Elevate legs above heart for 30 minutes 2-3 times a day. Assisted patient from exam chair to wheelchair safely and I pushed patient in her wheelchair to check out * Veda Jacobson CMA - 12/05/2024 1:06 PM EDT Images from the original note were not included. Chief Complaint Patient presents with Wound Care BLE Patient presents with Unna boots removed - states they were removed Sunday when they started to slide down Patient presents without foam pads to RLE - states she removed them this morning Patient was instructed to not get up on the exam table/exam chair until directed and assisted by their provider; patient is to remain seated in the chair/ wheelchair/ exam table/ exam chair for fall prevention and safety reasons. Patient is aware to have assistance to step down off exam table/exam chair with personnel. Patient voiced full comprehension of instructions. Patient is complaining of increase pain RLE for the past 2 days BLE shoes and socks removed LLE foam pad and micropore tape removed BLE Wounds then legs and feet washed with soap and water and towel dried. Patient did have increased pain but did tolerate. Wound beds appear moist with >90% slough, very small percentage of pale/pink granulation tissue Jaye-wound is erythematic and edematous Patient denies chills, fevers, n/v/d, chest/abdomen pain or feeling ill Temp check today is 37.2 C Patient states when asked if she was using the vinegar/water spray solution - she states she is - Encouraged patient to make sure to do this everyday after shower/cleaning the area and drying the area - she states she will Small amount of pet hair noted to wounds today Advised patient that I will inform Dr. Hilario of increased redness/pain to RLE Advised patient that if she develops chills, fevers, n/v/d, chest/abdomen pain or feeling ill to visit convenient care and/or ED if she felt it was warranted. Advised patient to continue vinegar/water solution and current recommendations from Dr. Hilario and I will call if Dr. Hilario has any newrecommendations documented in this encounter Plan of Treatment Upcoming Encounters Date Type Department Care Team (Latest Contact Info) Description 12/09/2024 10:30 AM EDT Nurse Only Wound Care, [address] [address] [facility], Nurse Wound Care [address] [place] [address] 12/12/2024 10:30 AM EDT Nurse Only Wound Care, [address] [address] [facility], Nurse Wound Care [address] [place] [address] 12/15/2024 10:30 AM EDT Nurse Only Wound Care, [address] [address] [facility], Nurse Wound Care [address] [place] [address] 12/19/2024 10:30 AM EDT Nurse Only Wound Care, [address] [address] [facility], Nurse Wound Care [address] [place] [address] 01/05/2025 10:40 AM EDT Office Visit Wound Care, [address] [address] Yuriy Hilario MD [address] [place] [address] [place] [address] 01/07/2025 9:30 AM EDT Telemedicine Pharmacy, [place] [address] [facility] [place] [address] [place], [facility] [address] [facility] [place] [address] 2025 2:30 PM EDT Office Visit Orthopaedics, [place] [address] [place] [address] [place] [address] Franky Avitia PA-C [address] [place] [address] 01/23/2025 10:09 AM EDT Hospital Encounter [facility], Operating Room, [facility] - 4th Floor [address] [place] [phone] Joel Truong MD [address] [place] [address] 01/23/2025 10:09 AM EDT - 01/23/2025 10:53 AM EDT Surgery OR [facility], Operating Room, [facility] - 4th Floor [address] [place] [address] Joel Truong MD [address] [place] [address] COLONOSCOPY FLEXIBLE PROXIMAL DIAGNOSTIC 01/26/2025 3:30 PM EDT Office Visit Cardiology, [address] [place] [address] Geovanna Patel [facility]C [address] [facility] [place] [address] 02/05/2025 3:00 PM EDT Appointment Cardiac Studies, [address] [place] [address] 02/19/2025 11:20 AM EDT Office Visit [facility] [place] [address] [place] [address] Cem Madrigal MD [address] [place] [address] 06/04/2025 1:30 PM EDT Telemedicine Sleep Disorders Medicine Marilee Caruso [address] [place] [address] Greg Morse PA-C [address] [place], [place] [address] [address] Scheduled Procedures Name Priority Associated Diagnoses Date/Ti [...] 02/10/2009 COVID-19 Vaccine ( - season) 2024 Hepatitis B Vaccine (2 of [...] this encounter Medical Devices Implanted Type Area Clip And Hanger Attacher Device Identifier Shelf Expiration Date Model / Serial / Lot Device Perm Cntrl [id number] - [id number] Implanted:Qty: 2 on 09/27/2015 by Sharda Ruiz, Corey Rucker MD at OR [facility] Uterus [employer] 05/03/2017 [id number] / / [id number] documented as of this encounter Visit Diagnoses Diagnosis Multiple open wounds of lower leg, unspecified laterality, subsequent encounter- Primary Lymphedema Other lymphedema Type 2 diabetes mellitus with hemoglobin A1c goal of less than 7.0% ([facility]) Class 3 severe obesity due to excess calories with serious comorbidity and body mass index (BMI) greater than or equal to 70 in adult (HCC) Irritant contact dermatitis due to other body fluid Multiple open wounds of lower leg, unspecified laterality, initial encounter Screening for colon cancer Special screening for [...] Power of Attor benoit? No Care Teams Wallpaper Scraper Relationship Specialty Start Date End Date Melissa Cruz PA-C [address] [place] [address] PCP - General Physician Plate Gauger 09/29/24 documented as of this encounter
--- OUTSIDE RECORDS SUMMARY | 2024-12-08 15:09 | External Medical Summary | Summary of Care ---
Author Name Unknown Organization [facility] Address [address] [facility] [place] [address] Phone [phone] Care Team Providers Care Wireless Sales Manager Name Role Phone Melissa Cruz Chang FONSECA Primary Care Provider [phone] Reason for Visit * Reason Comments NEW PATIENT Sleep Apnea * Evaluate & Treat - Unlimited Visits (Within 10 days (routine)) - Pending Review Specialty Diagnoses / Procedures Referred By Phylicia zambrano Referred To Contact Sleep Medicine / Sleep Disorders Diagnoses JORGE A (obstructive sleep apnea) Darnell Boggs DO [address] [place] [address] Phone: tel: fax: Referral ID Status Reason Start Date Expiration Date Visits Requested Visits Authorized [id number] Pending Review Specialty Services Required 10/24/2024 2 2 Encounter Details Date Type Department Care Team (Late st Contact Info) Description 12/03/2024 1:00 PM EDT Telemedicine Sleep Disorders Medicine Marilee Caruso [address] [place] [phone] Greg Morse PA-C [address] [place] [address] JORGE A (obstructive sleep apnea)* Allergies Active Allergy Reactions Criticality Noted Date [...] (HEPLISAV-B) 09/16/2024 Pneumococcal Conjugate Vacci ne, 20-valent ([id number]) 12/04/2022 Pneumococcal Polysaccharide PPV23 (Pneumovax) 05/06/2011 Seasonal [...] as of this encounter Progress Notes * Greg Morse PA-C - 12/03/2024 12:56 PM EDT Sleep Medicine Evaluation Sleep Disorders Clinic [facility] Patient location: HOME. I was in a hospital or clinic location. After connecting through televideo,patient was verified with two unique identifiers. Patient (or authorized legal maintenance representative) was then informed that this was a Telemedicine visit and being conducted confidentially over secure lines. Methods to assure confidentiality were taken. Patient acknowledged consent and understanding of pr ivacy and security of the Telemedicine visit. The patient agreed to participate. Consultation was requested by Dr Boggs, Cardiology and a copy of this report is being sent to the provider electronically. HPI: Mica Jimenez is a(n) 49 year old female with PMH significant for severe morbid obesity, JORGE A presenting for evaluation of JORGE A. PSG in 2017 showed mild JORGE A, severe in REM. At that time she was 456 lbs, BMI 89. She has a CPAP but has not been using it. She did use it when she first got it in 2017, but has notused it for several months. She tosses and turns a lot in her sleep and the hose was bothering her so she was pulling the mask off in her sleep. Tossing and turning has increased in the past few months. She thinks she may have RLS. Notably takes 150 mg Lyrica TID, and it was decreased from QID a few months ago. No difficulty with falling asleep--she has Trazodone but only uses it once every couple months. Gaetanooes report daytime sleepiness. This was better when she was using CPAP consistently. CPAP Compliance and Therapy Data 12/30/23 to 01/28/24 Usage: 17% Usage over 4 hours: 0% -- usage was LESS THAN ONE MINUTE AHI 0 Mask type was low-lying FFM. Cleaning equipment regularly. Air pressure felt good/sufficient. It did feel like there was a lot of air leaking out of the mask. She is disabled. Patient reports a typical bedtime of falling asleep on the couch around 9 pm, sleeps 3 hours there,then goes to her bed and falls back asleep and sleeps 6-8 hours more. It takes a few minutes to fall asleep. Patient awakens briefly many times overnight to change positions. It takes moments to return to sleep. Patient awakens for the day around 9 AM, feeling tired (felt much better when she was using CPAP). Patient does feel sleepy or tired during the day. Patient does sometimes have difficulty with memory or concentration due to sleepiness. Patient does not intentionally take naps but does doze off quite a bit Patient does use caffeine, soda 2-3 [address] Millan. Patient has not history of oral or head and neck surgery. There has been a significant weight change, has lost about 50 lbs since March. The patient reports having ("+" indicates reports, "-" indicates denies): Restless Legs Syndrome Symptoms: + Pain/discomfort in legs at night + Urge to move legs at night + Better with movement - Disrupts sleep (she has the symptoms when she is relaxing in the evening but it does not prevent her from falling asleep and does not wake her from sleep) This has been going on for about a year. Parasomnias Symptoms: - Sleepwalking - Dream-enactment -- Dreams with short naps - Sleep paralysis - Sleep-related hallucinations - Cataplexy Excessive Daytime Sleepiness: N/a Drowsy driving (she does not drive) ++ Sleepy with sedentary activity [place] Sleepiness Scale Question 12/03/2024 12:32 PM EDT - Filed by Patient What is the chance you will doze off in the following situation? Sitting and reading High chance of dozing Watching TV High chance of dozing Sitting inactive in a public place, such as a theater or meeting Slight chance of dozing As a passenger in a car for an hour without a break Slight chance of dozing Lying down to rest in the afternoon when circumstances permit High chance of dozing When sitting and talking to someone No chance of dozing When sitting quietly after lunch without alcohol Slight chance of dozing In a car, while stopped for a few minutes in traffic No chance of dozing Score (range: 0 - 24) 12 Functional Outcomes Of Sleep Question 12/03/2024 12:34 PM EDT - Filed by Patient Please complete the following questions. Do you have difficulty concentrating because you are sleepy or tired? Yes, a little Do you have difficulty remembering things because you are sleepy or tired? Yes, moderate Do you have difficulty operating a motor vehicle for short distances (less than 100 miles) because you become sleepy? No Do you have difficulty operating a motor vehicle for long distances (more than 100 miles) because you become sleepy? No Do you have difficulty visiting family or friends in their home because you become sleepy or tired?Yes, a little Has your relationship with family, friends, or work colleagues been affected because you are sleepyor tired? No Do you have difficulty watching a movie or video because you become sleepy or tired? Yes, moderate Do you have difficulty being as active as you want to be in the evening because you are tired or sleepy? Yes, moderate Do you have difficulty being as active as you want to be in the morning because you are tired or sleepy? Yes, moderate Has your mood been affected because you are sleepy or tired? Yes, a little Score (range: 10 - 40) 29 [facility] Visit Accident Related Question Question 12/03/2024 12:34 PM EDT - Filed by Patient Is this visit related to an accident? (i.e work, motor vehicle) No Sleep Hygiene: Bedroom dark? Not really, street light shines in but it does not bother her Noise? no Bed partner? no Pets in bed? Sometimes cat Feel safe? yes Air temperature cool? yes Watch TV in bed? no Clockwatching? no Prior sleep study: yes PMH: Past Medical History: Diagnosis Date Anemia Asthma, [...] by Corey Robin Jr., MD at [facility] HYSTEROSCOPY;ENDOMETRIAL ABLAT N/A 09/27/2015 HYSTEROSCOPY ENDOMETRIAL ABLATION performed by Corey Robin Jr., MD at [facility] HYSTEROSCOPY;ENDOMETRIAL ABLAT N/A 06/11/2017 HYSTEROSCOPY ENDOMETRIAL ABLATION performed by Corey Robin Jr., MD at [facility] REMOVAL OF KIDNEY STONE, OVER 2CM 1996 REMOVE GALLBLADDER 1997 ALLERGIES: Review of patient's allergies indicates: Allergen Reactions Aspirin Increased bleeding MEDS: Current Outpatient Medications Medication Sig Dispense Refill Memantine HCl 5 MG Oral Tablet (Namenda) TAKE 5 MG ONCE DAILY FOR 7 DAYS, THEN INCREASE TO 5 MG TWICE DAILY UNTIL SEEN AGAIN. FOR PAIN 60 Tablet 1 Memantine HCl 10 MG Oral Tablet Take 5 mg in the morning and 10 mg at night for 7 days then take 10mg twice daily. For Pain 60 Tablet 1 oxyBUTYnin Chloride ER 5 MG Oral Tablet Extended Release 24 Hour (Ditropan XL) Take 1 Tablet by mouth in the morning. 90 Tablet 11 Pregabalin 150 MG Oral Capsule (Lyrica) Take 1 Capsule by mouth in the morning and 1 Capsule at noon and 1 Capsule before bedtime. 90 Capsule 2 Vitamin D3 50 MCG (2000 UT) Oral Capsule TAKE 1 CAPSULE BY MOUTH EVERY DAY IN THE MORNING 90 Capsule 0 Tart Garcia 1200 MG Oral Capsule Take 3,600 mg by mouth once. Turmeric Complex/Black Pepper 5-1000 MG Oral Capsule (Black Pepper-Turmeric) Take 2 Capsules by mouth once. Cetirizine HCl 10 MG Oral Tablet (ZyrTEC) TAKE 1 TABLET BY MOUTH EVERY DAY 90 Tablet 1 Potassium Chloride ER 10 MEQ Oral Tablet Extended Release TAKE 1 TABLET BY MOUTH EVERY DAY IN THE MORNING 90 Tablet 1 Montelukast Sodium 10 MG Oral Tablet (Singulair) Take 1 Tablet by mouth at bedtime. 90 Tablet 3 ARIPiprazole 15 MG Oral Tablet (Abilify) Take 1 Tablet by mouth at bedtime. 15 Tablet 1 busPIRone HCl 10 MG Oral Tablet (Buspar) Take 1 Tablet by mouth in the morning and 1 Tablet before bedtime. 30 Tablet 1 DULoxetine HCl 60 MG Oral Capsule Delayed Release Particles (Cymbalta) Take 1 Capsule by mouth in the morning. 15 Capsule 1 Furosemide 40 MG Oral Tablet (Lasix) Take 1 Tablet by mouth daily as needed (edema). lamoTRIgine 100 MG Oral Tablet (LaMICtal) Take 1 Tablet by mouth in the morning and 1 Tablet beforebedtime. 30 Tablet 1 Ferrous Sulfate 28 MG Oral Tablet Take 1 Tablet by mouth every morning. Omeprazole 20 MG Oral Capsule Delayed Release (PriLOSEC) TAKE 1 CAPSULE BY MOUTH EVERY DAY 90 Capsule 3 Fluticasone Propionate 50 MCG/ACT Nasal Suspension (Flonase) SPRAY 2 SPRAYS INTO EACH NOSTRIL IN THE MORNING 16 mL 0 Albuterol Sulfate HFA 108 (90 Base) MCG/ACT Inhalation Aerosol Solution 2 puffs every 4 hours as needed for shortness of breath/cough 18 g 2 traZODone (DESYREL) 50 MG Tablet Take 1 Tab by mouth at bedtime as needed, may repeat once for Sleep. 30 Tab 0 No current facility-administered medications for this visit. Additional ROS: HEENT: + chronic sinus problems (allergies) Heart: denies chest pain, reports h/o palpitations Lungs: denies dyspnea, no cough, no wheezing Psych: reports anxiety, depression, PTSD FHx: no known family history of sleep disordered breathing Social hx: Tobacco use: no, quit over 10 years ago Alcohol use: very rarely Drug use: no Physical Exam: PE limited due to telemedicine. Patient does not appear to be in distress. No rash on visible skin on face. Breathing does not appear to be labored. No audible stridor. Speech is clear and appropriate. Appropriate affect. IMPRESSION/RECOMMENDATIONS: JORGE A - she has not been using her machine at all for the past year based on data in [facility]. This is most likely the cause of her increased PLMD/RLS - Discussed the relationship between weight and sleep apnea. Sleep apnea may improve with weight loss. She also may need a new mask size given her weight loss, as her face may have changed shape, leading to increased air leak. Follow up in 6 months Greg Morse PA-C I spent a total of 40-54 minutes (exact time 42 mins) on the date of service in preparation, delivery, and documentation of the care provided to Mica Jimenez excluding any time spent in the performance of separately billed services or time spent by another provider/QHP. documented in this encounter Plan of Treatment Upcoming Encounters Date Type Department Care Team (Latest Contact Info) Description 12/05/2024 10:30 AM EDT Nurse Only Wound Care, [address] [address] [facility], Nurse Wound Care [address] [place] [id number] 12/09/2024 10:30 AM EDT Nurse Only Wound Care, [address] [address] [facility], Nurse Wound Care [address] [place] [address] 12/12/2024 10:30 AM EDT Nurse Only Wound Care, [address] [address] [facility], Nurse Wound Care [address] [place] [address] 12/15/2024 10:30 AM EDT Nurse Only Wound Care, [address] [address] [facility], Nurse Wound Care [address] [place] [address] 12/19/2024 10:30 AM EDT Nurse Only Wound Care, [address] [address] [facility], Nurse Wound Care [address] [place] [address] 01/05/2025 10:40 AM EDT Office Visit Wound Care, [address] [address] [facility] [address] 01/07/2025 9:30 AM EDT Telemedicine Pharmacy, [place] [address] [facility] [place] [address] [place] [address] [place] [address] 2025 2:30 PM EDT Office Visit Orthopaedics, [address], [place] [address] [place] [address] Franky Avitia PA-C [address] [place] [address] 01/23/2025 10:09 AM EDT Hospital Encounter [facility], Operating Room, [facility] - 4th Floor [address] [place] [phone] Joel Truong MD [address] [place] [address] 01/23/2025 10:09 AM EDT - 01/23/2025 10:53 AM EDT Surgery [facility], Operating Room, [facility] - 4th Floor [address] [place] [phone] Joel Truong MD [address] [place] [address] COLONOSCOPY FLEXIBLE PROXIMAL DIAGNOSTIC 01/26/2025 3:30 PM EDT Office Visit Cardiology, [place] [address] [place] [address] Geovanna Patel PA-C [address] [place] [address] 02/05/2025 3:00 PM EDT Appointment Cardiac Studies, [address] [place] [address] 02/19/2025 11:20 AM EDT Office Visit [employer] [facility] Urology Cristela GarzajimMarilee [address] [place] [address] Cem Madrigal MD [address] [place] [address] 06/04/2025 1:30 PM EDT Telemedicine Sleep Disorders Medicine Marilee Caruso [address] [place] [phone] Greg Morse PA-C [address] [place] [id number] Scheduled Procedures Name Priority Associated Diagnoses Date/Ti me COLONOSCOPY FLEXIBLE PROXIMAL DIAGNOSTIC Screening for colon cancer 01/23/2025 10:09 AM EDT Scheduled Referrals Name Type Priority Associated Diagnoses Orde r Schedule SLEEP MEDICINE REFERRAL OP Referral Within 10 days (routine) JORGE A (obstructive sleep apnea) Ordered: 10/24/2024 Health Maintenance Due Date Last Done Comments [...] this encounter Medical Devices Implanted Type Area Surveillance Operator Device Identifier Shelf Expiration Date Model / Serial / Lot Device Perm Cntrl [id number] - [id number] Implanted:Qty: 2 on 09/27/2015 by Sharda Ruiz, Corey Rucker MD at [facility] Uterus [employer] 05/03/2017 [id number] / / [id number] documented as of this encounter Visit Diagnoses [...] Power of Attor benoit? No Care Teams Wireless Sales Manager Relationship Specialty Start Date End Date Melissa Cruz PA-C [address] [place] [address] PCP - General Physician Door Operator 09/29/24 documented as of this encounter
--- OUTSIDE RECORDS SUMMARY | 2024-12-08 15:09 | External Medical Summary | Summary of Care ---
Author Name Unknown Organization [facility] Address [address] [place] [address] Phone [phone] Care Team Providers Care Power Shovel Engineer Name Role Phone Melissa Cruz Jair FONSECA Primary Care Provider [phone]- [phone] Reason for Visit * Reason Comments Dosage Adjustment In Person (Anticoag Cl inic) Pain Encounter Details Date Type Department Care Team ([facility] st Contact Info) Description 12/02/2024 9:00 AM EDT Telemedicine Pharmacy, [place] [address] [place] [address] [place], [facility] [address] [place] [address] Neuropathy*; Primary osteoarthritis of right knee Allergies Active Allergy Reactions Criticality Noted Date [...] 90 Tablet 11 5 Active Memantine HCl 10 MG Oral TabletIndication s:Neuropathy Take 5 mg in the morning and 10 mg at night for 7 days then take 10 mg twice daily. For Pain 60 Tablet 1 5 Active clonazePAM 1 MG Oral Tablet [...] (HEPLISAV-B) 09/16/2024 Pneumococcal Conjugate Vacci ne, 20-valent ([id number]) 12/04/2022 Pneumococcal Polysaccharide PPV23 (Pneumovax) 05/06/2011 Seasonal [...] as of this encounter Progress Notes * Corrie Gil, [facility] - 12/02/2024 8:55 AM EDT Images from the original note were not included. Medication Therapy Disease Management - Chronic Pain History of Presenting Illness Patient location: HOME. I was in a hospital or clinic location. After connecting through televideo,patient was verified with two unique identifiers. Patient (or authorized legal sales representative cash registers) was then informed that this was a Telemedicine visit and being conducted confidentially over secure lines. Methods to assure confidentiality were taken. Patient acknowledged consent and understanding of pr ivacy and security of the Telemedicine visit. The patient agreed to participate. Mica Jimenez, identified by name and date of , is a 49 year old female presents to the Pain MTM Clinic for return visit. Chief Complaint Patient presents with Dosage Adjustment In Person (Anticoag Clinic) Pain History Chief Complaint(s): Primary osteoarthritis of right knee [M17.11] - Primary Neuropathy [G62.9] Current Pain Medications Lyrica 150 mg three times daily Cymbalta 60 mg daily for neuropathy Lamictal 100 mg BID for mood not pain Tylenol ER 650 mg: takes 1300 mg twice daily Namenda 5 mg twice daily * Trazodone 50 mg daily as needed: rare use * Abilify * Buspar Interval History Today: Tolerated start of Namenda well, no side effects, but pain remains the same Notes to have weaned off Clonazepam with psychiatry provider Initial visit: Noted to have neuropathy in the bilateral feet. Notes has been ongoing for about 1 year Noted to have diagnosis of lymphedema and wound treatment in bilateral knees Neuropathy not related to lymphedema, states is not related to the edema Neuropathy paiz and is constant, patient is not diabetic. EMG has not yet been completed. Lyrica provides some relief but pain persists Neuropathy pain Not aggravate by movement OA in the bilateral knees. Had not had effect with injections when last done Notes to walk with walker, but knee pain limits walking Knee pain is associated with movement Comorbidities Psychiatric: MDD/ anxiety/ PTSD/ bipolar Neurologic: Denies Cardiac: Hx of palapations and has follow up scheduled Renal: Stones Hepatic: Denies Other: JORGE A ( does not wear CPAP) Medication Use Agreement: No PDMP Reviewed (12/02/2024): I have reviewed the patient's controlled substance dispensing history in the Prescription Drug Monitoring Program in compliance with the [facility] regulations. History of Presenting Illness & Review of Systems Diagnosis: Primary osteoarthritis of right knee [M17.11] - Primary Neuropathy [G62.9] Chronicity: Chronic Onset: More than a 1 year ago Frequency: Constantly Pain location: Foot Pain quality: Achy, sharp and radiating Radiates to: Left foot and right foot Pain is worse: In the evening Aggravated by: Activity Treatment(s) tried: Acetaminophen, anticonvulsants and antidepressants Problem List Reviewed and updated in the EHR during the visit Substance Use Reviewed and updated in the EHR during the visit Objective Relevant Imaging PROCEDURE INFORMATION: Exam: XR Right Knee Exam date and time: 10/24/2021 11:31 AM Age: 46 years old Clinical indication: Pain in right knee TECHNIQUE: Imaging protocol: XR Right knee. Views: 4 or more views. COMPARISON: CR KNEE COMPLETE, 4 OR MORE VIEWS 03/09/2015 8:23 PM FINDINGS: Limitations: Severe morbid obesity in overlapping skin limits evaluation of the knee soft tissues and severely degrades the assessment of the patellofemoral joint. Bones/joints: Kfug-aw-saqx femorotibial contact in the medial knee compartment where there is also bone sclerosis and bone spurring. Medial greater than lateral femorotibial spurring. Negative for joint effusion or calcified joint body. No acute fracture is evident. No suspicious bone lucency. Patellofemoral spurring. Soft tissues: Normal. IMPRESSION IMPRESSION: Multicompartmental knee osteoarthrosis, definitely worsened in the medial knee compartment where there is now pathologic narrowing and msgx-te-hoyo contact. Most recent answers to PEG-3 scale: PEG-3 Synopsis What number best describes your pain on average in the past week?: 8 (09/30/2024 11:00 AM) What number best describes how, during the past week, pain has interfered with your enjoyment of life?: 5 (09/30/2024 11:00 AM) What number best describes how, during the past week, pain has interfered with your general activity?: 7 (09/30/2024 11:00 AM) PEG Pain Total Score: 6.67 (09/30/2024 11:00 AM) Last Urine Toxicology Screening Results for orders placed or performed in visit on 09/04/24 PAIN MANAGEMENT DRUG PANEL, URINE W/ INTERPRETATION Result Value Pain Management Interpretation Based on the medication information provided: The absence of 7-aminoclonazepam is CONSISTENT with the last dose of clonazepam taken 4 days prior to urine drug testing. Amphetamines Screen, U Negative Benzodiazepines Screen, U Refer to confirmation results (A) Cannabinoids Screen, U Negative Cocaine Metabolite Screen, U Negative Fentanyl Screen, U Negative Hydrocodone Screen, U Negative Methadone Metabolite Screen, U Negative Morphine/Codeine Screen, U Negative Oxycodone Screen, U Negative Specimen Validity Interpretation Normal Creatinine, U 107 Narrative Cutoff Concentrations: Drug Level Amphetamines 500 ng/mL Benzodiazepines 100 ng/mL Cannabinoids 50 ng/mL Cocaine Metabolite 150 ng/mL Fentanyl 1 ng/mL Hydrocodone / Hydromorphone 300 ng/mL Methadone Metabolite 100 ng/mL Morphine / Codeine 300 ng/mL Oxycodone / Oxymorphone 100 ng/mL Screening results are presumptive and can only be used for medical purposes. Confirmatory testing is available upon request. Results for orders placed or performed during [...] purposes. Confirmatory testing is available upon request. Creatinine Clearance: Serum creatinine: 1 mg/dL 07/15/24 1127 Estimated creatinine clearance: 97.3 mL/min Creatinine Results: Recent Labs Units 07/15/24 1127 07/13/24 0808 07/09/24 1255 CREATININE - [facility] mg/dL 1.0 0.9 0.9 Hepatic Function (ALT): Recent Labs Units 07/09/24 1255 03/11/24 1712 10/19/23 1845 ALT - [facility] U/L 14 31 <5* Comprehensive Metabolic Panel Results: Results for orders placed or performed during the hospital encounter of 07/09/24 COMPREHENSIVE METABOLIC PANEL Result Value Ref Range BUN 35 (H) [...] g/dL ALT 14 10 - 35 U/L Assessment & Plan Patient aware MTM is a clinical pharmacist visit, with focus on medication options for current diagnoses referred by Primary Care Provider for review and optimization. The focus of this visit is: Medication optimization. Current regimen reviewed, patient is: Adherent to regimen. Treatment Options Patient presents for first recheck review for chronic pain due to OA of the right knee and bilateral foot neuropathy. Noted to have neuropathy in the bilateral feet. Notes has been ongoing for about 1 year Noted to have diagnosis of lymphedema and wound treatment in bilateral knees States Neuropathy not related to lymphedema, states is not related to the edema Tolerated start of Namenda well, with no side effect, but pain persists without change. Treatment Concerns Noted to have chronic lymphedema and working with Wound clinic for open areas. Education Provided Patient educated on mechanism, time to efficacy and potential adverse effects of medication regimen Education and MOA provided on treatment options for neuropathic pain provided. Discussion included but not limited to review of past history, MOA, indications, ADRs, Drug interactions, tapering, monitoring parameters, relation of renal/hepatic function and efficacy Recommendations Increase Namenda a NMDA antagonist for neuropathy Namenda 5 mg in the morning and 10 mg at night for 7 days then take 10 mg twice daily Lyrica 150 mg three times daily Cymbalta 60 mg daily for neuropathy Lamictal 100 mg BID for mood not pain Tylenol ER 650 mg: takes 1300 mg twice daily * Trazodone 50 mg daily as needed: rare use * Abilify * Arlyn Mica verbalized understanding of the plan. Contact clinic with any issues. Visit date not found - transfer to [facility] I spent a total of 20-29 minutes (exact time 20 mins) on the date of service in preparation, delivery, and documentation of the care provided to Mica Jimenez excluding any time spent in the performance of separately billed services or time spent by another provider/QHP. Corrie Gil [facility] Clinical Pharmacist - Video Recorder Mechanic Medication Therapy Management Clinic 12/02/2024 - 8:55 AM documented in this encounter Plan of Treatment Upcoming Encounters Date Type Department Care Team (Latest Contact Info) Description 12/04/2024 1:20 PM EDT Office Visit [facility] [address] [place] [address] Melissa Cruz PA-C [address] [place] [address] 12/05/2024 10:30 AM EDT Nurse Only Wound Care, [address] [address] [facility], Nurse Wound Care [address] [place] [address] [place] [address] 12/09/2024 9:30 AM EDT Telemedicine Sleep Disorders Center, [address] [address] Jordan Arrieta MD [address] [facility] [place] [address] 12/09/2024 10:30 AM EDT Nurse Only Wound Care, [address] [place] [address] [facility], Nurse Wound Care [address] [place] [address] 12/12/2024 10:30 AM EDT Nurse Only Wound Care, [address] [place] [address] [facility], Nurse Wound Care [address] [place] [address] 12/15/2024 10:30 AM EDT Nurse Only Wound Care, [address] [place] [address] [facility], Nurse Wound Care [address] [place] [address] 12/19/2024 10:30 AM EDT Nurse Only Wound Care, [address] [place] [address] [facility], Nurse Wound Care [address] [place] [address] 01/05/2025 10:40 AM EDT Office Visit Wound Care, [address] [address] Yuriy Hilario MD [address] [place] [address] [place] [address] 01/07/2025 9:30 AM EDT Telemedicine Pharmacy, [place] [address] [facility] [place] [address] [place] [address] [facility] [place] [address] 2025 2:30 PM EDT Office Visit Orthopaedics, [address], [place] [address] [place] [facility] [place] [address] Franky Avitia PA-C [address] [place] [address] [place] [address] 01/23/2025 10:09 AM EDT Hospital Encounter OR [facility], Operating Room, [facility] - 4th Floor [address] [place] [address] Joel Truong MD [address] [place] [address] 01/23/2025 10:09 AM EDT - 01/23/2025 10:53 AM EDT Surgery OR [facility], Operating Room, [facility] - 4th Floor [address] [place] [address] Joel Truong MD [address] [place] [address] COLONOSCOPY FLEXIBLE PROXIMAL DIAGNOSTIC 01/26/2025 3:30 PM EDT Office Visit Cardiology [place] [address] [place] [address] Geovanna Patel PA-C [address] [place] [address] 02/19/2025 11:20 AM EDT Office Visit LOWER IN SUPERVISOR [place] [place] [address] [place] [address] Cem Madrigal MD [address] [place] [address] Scheduled Procedures Name Priority Associated Diagnoses Date/Ti [...] this encounter Medical Devices Implanted Type Area Navy Fighter Pilot Device Identifier Shelf Expiration Date Model / Serial / Lot Device Perm Cntrl [id number] - [id number] Implanted:Qty: 2 on 09/27/2015 by Sharda Ruiz, Corey Rucker MD at OR [facility] Uterus [employer] 05/03/2017 [id number] / / [id number] documented as of this encounter Visit Diagnoses Diagnosis Neuropathy- Primary Mononeuritis of unspecified site Primary osteoarthritis of right knee Primary localized osteoarthrosis, lower leg Screening for colon cancer Special screening for [...] of Attor benoit? No Care Teams Power Shovel Engineer Relationship Specialty Start Date End Date Melissa Cruz PA-C [address] [place] [address] PCP - General Physician Biomedical Scientist 09/29/24 documented as of this encounter
--- OUTSIDE RECORDS SUMMARY | 2024-12-08 15:09 | External Medical Summary | Summary of Care ---
Author Name Unknown Organization [facility] Address [address] [place] [address] Phone [phone] Care Team Providers Care Vascular Technologist Name Role Phone CarylTy mansfieldanthony Downing PA-C Primary Care Provider +1- [phone] Reason for Visit * Reason Onset Date Comments Durable Medical Equipment 12/04/2024 CPAP s upplies Encounter Details Date Type Department Care Team (Late st Contact Info) Description 12/04/2024 Telephone Sleep Disorders, [facility] [address] [place] [address] Greg Morse PA-C [address] [place] [address] Durable Medical Equipment (CPAP supplies ) Allergies Active Allergy Reactions Criticality Noted Date Comments Aspirin 01/27/2014 Increased bleeding documented as of this encounter (statuses as of 12/04/2024) Medications traZODone (DESYREL) 50 MG Tablet Take [...] as of this encounter (statuses as of 12/04/2024) Active Problems Problem Noted Date Diagnosed Date [...] as of this encounter (statuses as of 12/04/2024) Resolved Problems Problem Noted Date Diagnosed Date [...] as of this encounter (statuses as of 12/04/2024) Immunizations Name Administration Dates Next Due HEPATITIS B VACCINE, RECOMB, 20 MCG/ML, ADULT (HEPLISAV-B) 09/16/2024 Pneumococcal Conjugate Vacci ne, 20-valent ([id number]) 12/04/2022 Pneumococcal Polysaccharide PPV23 (Pneumovax) 05/06/2011 Seasonal [...] 09/16/2024 Does the household have a re lar [...] encounter Miscellaneous Notes * Telephone Encounter - Eliza Bazzi OSA - 12/04/2024 8:27 AM EDT DME order for CPAP supplies submitted to [facility] documented in this encounter Plan of Treatment Upcoming Encounters Date Type Department Care Team (Latest Contact Info) Description 12/05/2024 10:30 AM EDT Nurse Only Wound Care, [address] [address] [facility], Nurse Wound Care [address] [place], [place] [address] [address] 12/09/2024 10:30 AM EDT Nurse Only Wound Care, [address] [address] [facility], Nurse Wound Care [address] [place], [place] [address] [address] 12/12/2024 10:30 AM EDT Nurse Only Wound Care, [address], [place] [address] [facility], Nurse Wound Care [address] [place], [place] [address] [address] 12/15/2024 10:30 AM EDT Nurse Only Wound Care, [address] [address] [facility], Nurse Wound Care [address] [place], [place] [address] [address] 12/19/2024 10:30 AM EDT Nurse Only Wound Care, [address] [address] [facility], Nurse Wound Care [address] [place], [place] [address] [address] 01/05/2025 10:40 AM EDT Office Visit Wound Care, [facility] [address] [place] [address] Yuriy Hilario MD 27 [place] [address] 01/07/2025 9:30 AM EDT Telemedicine Pharmacy, [place] [address] [facility] [place] [address] [place], [facility] [address] [facility] [place] [address] 2025 2:30 PM EDT [place] [address] [place] [address] [place] [address] Franky Avitia PA-C [address] [place] [address] 01/23/2025 10:09 AM EDT Hospital Encounter [place], Operating Room, [facility] - 4th Floor [address] [place] [address] Joel Truong MD [address] [place] [address] 01/23/2025 10:09 AM EDT - 01/23/2025 10:53 AM EDT Surgery OR [facility], Operating Room, [facility] - 4th Floor [address] [place] [address] Joel Truong MD [address] [place] [address] COLONOSCOPY FLEXIBLE PROXIMAL DIAGNOSTIC 01/26/2025 3:30 PM EDT Office Visit Cardiology, [place] [address] [place] [address] Geovanna Patel PA-C [address] [place] [address] 02/05/2025 3:00 PM EDT Appointment Cardiac Studies, [facility] [address] [place] [address] 02/19/2025 11:20 AM EDT Office Visit PEST CONTROL SERVICE REPRESENTATIVE [place] [address] [place] [address] Cem Madrigal MD [address] [place] [address] 06/04/2025 1:30 PM EDT Telemedicine [facility] [address] [place] [phone] Greg Morse PA-C [address] [place] [address] Scheduled Procedures Name Priority Associated Diagnoses Date/Ti [...] Medical Devices Implanted Type Area Sheet Metal Assembler And Riveter Device Identifier Shelf Expiration Date Model / Serial / Lot Device Perm Cntrl [id number] - [id number] Implanted:Qty: 2 on 09/27/2015 by Sharda Ruiz, Corey Rucker MD at OR [facility] Uterus [employer] 05/03/2017 [id number] / / [id number] documented as of this encounter Advance Directives [...] Power of Attor benoit? No Care Teams Vascular Technologist Relationship Specialty Start Date End Date Melissa Cruz, AYLAC [address] [place] [address] PCP - General Physician Ad Operations Specialist 09/29/24 documented as of this encounter
--- OUTSIDE RECORDS SUMMARY | 2024-12-08 15:09 | External Medical Summary | Summary of Care ---
Author Name Unknown Organization [facility] Address [address] [place] [address] Phone [phone] Care Team Providers Care Hard Rock Miner Name Role Phone Melissa Cruz Jair FONSECA Primary Care Provider +1- [phone] Reason for Visit * Reason Comments Dosage Adjustment In Person (Anticoag Cl inic) Pain Encounter Details Date Type Department Care Team ([facility] st Contact Info) Description 12/02/2024 9:00 AM EDT Telemedicine Pharmacy, [place] [address] [place] [address] [place] [address] [place] [address] Neuropathy*; Primary osteoarthritis of right knee Allergies Active Allergy Reactions Criticality Noted Date Comments Aspirin 01/27/2014 Increased bleeding documented as of this encounter (statuses as of 12/02/2024) Medications traZODone (DESYREL) 50 MG Tablet Take [...] as of this encounter (statuses as of 12/02/2024) Active Problems Problem Noted Date Diagnosed Date [...] as of this encounter (statuses as of 12/02/2024) Resolved Problems Problem Noted Date Diagnosed Date [...] as of this encounter (statuses as of 12/02/2024) Immunizations Name Administration Dates Next Due HEPATITIS B VACCINE, RECOMB, 20 MCG/ML, ADULT (HEPLISAV-B) 09/16/2024 Pneumococcal Conjugate Vacci ne, 20-valent ([id number]) 12/04/2022 Pneumococcal Polysaccharide PPV23 (Pneumovax) 05/06/2011 Seasonal [...] encounter Progress Notes * Corrie Gil, [facility] - 12/02/2024 8:55 AM EDT Images from the original note were not included. Medication Therapy Disease Management - Chronic Pain History of Presenting Illness Patient location: HOME. I was in a hospital or clinic location. After connecting through televideo,patient was verified with two unique identifiers. Patient (or authorized legal customer account representative) was then informed that this was [...] Drug Monitoring Program in compliance with the [facility] regulations. History of Presenting Illness & Review [...] the assessment of the patellofemoral joint. Bones/joints: Gryl-be-krpc femorotibial contact in the medial knee compartment where there is also bone sclerosis and bone spurring. Medial greater than lateral femorotibial spurring. Negative for joint effusion or calcified joint body. No acute fracture is evident. No suspicious bone lucency. Patellofemoral spurring. Soft tissues: Normal. IMPRESSION IMPRESSION: Multicompartmental knee osteoarthrosis, definitely worsened in the medial knee compartment where there is now pathologic narrowing and hpyy-na-lnwi contact. Most recent answers to PEG-3 scale: [...] take 10 mg twice daily Lyrica 150 mgthree times daily Cymbalta 60 mg daily for neuropathy Lamictal 100 mg BID for mood not pain Tylenol ER 650 mg: takes 1300 mg twice daily * Trazodone 50 mg daily as needed: rare use * Abilify * Arlyn Mica verbalized understanding of the plan. Contact clinic with any issues. Visit date not found - transfer to [facility] I spent a total of 20-29 minutes (exact time 20 mins) on the date of service in preparation, delivery, and documentation of the care provided to Mica Jimenez excluding any time spent in the performance of separately billed services or time spent by another provider/QHP. Corrie Gil [facility] Clinical Pharmacist - Level Designer Medication Therapy Management Clinic 12/02/2024 - 8:55 AM documented in this encounter Plan of Treatment Upcoming Encounters Date Type Department Care Team (Latest Contact Info) Description 12/04/2024 1:20 PM EDT Office Visit [facility] [address] [place] [address] Melissa Cruz PA-C [address] [place] [address] 12/05/2024 10:30 AM EDT Nurse Only Wound Care, [address] [place] [address] [facility], Nurse Wound Care [address] [place] [address] [place] [address] 12/09/2024 9:30 AM EDT [facility] [address] [facility] [place] [address] Jordan Arrieta MD [address] [facility] [place] [address] 12/09/2024 10:30 AM EDT Nurse Only Wound Care, [address] [place] [address] [facility], Nurse Wound Care [address] [place] [address] 12/12/2024 10:30 AM EDT Nurse Only Wound Care, [address] [place] [address] [facility], Nurse Wound Care [address] [place] [address] 12/15/2024 10:30 AM EDT Nurse Only Wound Care, [address] [place] [address] [facility], Nurse Wound Care [address] [place] [address] 12/19/2024 10:30 AM EDT Nurse Only Wound Care, [address] [place] [address] [facility], Nurse Wound Care [address] [place] [address] 01/05/2025 10:40 AM EDT Office Visit Wound Care, [address] [address] Yuriy Hilario MD [address] [place] [address] [place] [address] 01/07/2025 9:30 AM EDT Telemedicine Pharmacy, [place] [address] [facility] [place] [address] [place] [address] [facility] [place] [address] 2025 2:30 PM EDT Office Visit Orthopaedics, [place] [address] [place] [address] [place] [address] Franky Avitia PA-C [address] [place] [address] 01/23/2025 10:09 AM EDT Hospital Encounter OR [facility], Operating Room, [facility] - 4th Floor [address] [place] [address] Joel Truong MD [address] [place] [address] 01/23/2025 10:09 AM EDT - 01/23/2025 10:53 AM EDT Surgery OR [facility], Operating Room, [facility] - 4th Floor [address] [place] [address] Joel Truong MD [address] [place] [address] COLONOSCOPY FLEXIBLE PROXIMAL DIAGNOSTIC 01/26/2025 3:30 PM EDT [facility] [address] [place] [address] Geovanna Patel PA-C 400 [facility] [place] [address] 02/19/2025 11:20 AM EDT Office Visit SCHOOL MANAGER Urology [place] [facility] [place] [address] Cem Madrigal MD [address] [place] [address] Scheduled Procedures Name Priority Associated Diagnoses Date/Ti [...] this encounter Medical Devices Implanted Type Area Piping Engineer Device Identifier Shelf Expiration Date Model / Serial / Lot Device Perm Cntrl [id number] - [id number] Implanted:Qty: 2 on 09/27/2015 by Sharda Ruiz, Corey Rucker MD at OR [facility] Uterus [employer] 05/03/2017 [id number] / / [id number] documented as of this encounter Visit Diagnoses [...] Power of Attor benoit? No Care Teams Hard Rock Miner Relationship Specialty Start Date End Date Melissa Cruz PA-C [address] [place] [address] PCP - General Physician Interstate Bus Dispatcher 09/29/24 documented as of this encounter
--- OUTSIDE RECORDS SUMMARY | 2024-12-08 15:09 | External Medical Summary | Summary of Care ---
Author Name Unknown Organization [facility] Address [address] [place] [address] Phone [phone] Care Team Providers Care Refuge Worker Name Role Phone Melissa Cruz PA-C Primary Care Provider +1- [phone] Reason for Visit * Reason Comments eRx-Medication Refill Encounter Details Date Type Department Care Team ([facility] st Contact Info) Description 12/02/2024 Refill Pharmacy, [address] [place], [place] [id number] Melissa Cruz PA-C [address] [place] [address] Allergies Active Allergy Reactions [...] FOR PAIN 60 Tablet 1 5 Active documented as [...] (HEPLISAV-B) 09/16/2024 Pneumococcal Conjugate Vacci ne, 20-valent ([id number]) 12/04/2022 Pneumococcal Polysaccharide PPV23 (Pneumovax) 05/06/2011 Seasonal [...] No 09/16/2024 Does the household have a [facility] source of income? (Household - for ages [...] encounter Miscellaneous Notes * Telephone Encounter - Princess Garsia MD - 12/03/2024 7:50 AM EDTSigned Prescriptions: Disp Refills Memantine HCl 5 MG Oral Tablet (Namenda) 60 Tab*1 Sig: TAKE 5 MG ONCE DAILY FOR 7 DAYS, THEN INCREASE TO 5 MG TWICE DAILY UNTIL SEEN AGAIN. FOR PAIN Authorizing Provider: PRINCESS GARSIA * Telephone Encounter - Martine Flores CCMA - 12/02/2024 7:29 AM EDTPending Prescriptions: Disp Refills Memantine HCl 5 MG Oral Tablet [Pharmacy M*60 Tab*1 Sig: Take 5 mg once daily for 7 days, then increase to 5 mg twice daily until seen again. For pain * Telephone Encounter - Martine Flores CCMA - 12/02/2024 7:29 AM EDT Did you pend patient's preferred pharmacy and medication before forwarding?yes Pharmacy: [facility] [place], [place] [address] Pending Prescriptions: Disp Refills Memantine HCl 5 MG Oral Tablet (Namenda) *60 Tab*1 Sig: TAKE 5 MG ONCE DAILY FOR 7 DAYS, THEN INCREASE TO 5 MG TWICE DAILY UNTIL SEEN AGAIN. FOR PAIN Last Visit: Visit date not found (in office), 09/30/2024 (telemedicine) Next Visit: 12/02/2024 If no future appointments scheduled, and last appointment is greater than a year ago, please schedule patient for a follow-up appointment Last date the medication was ordered: 09/30/2024 Urine Drug Screen: Results for orders placed or performed in [...] * Telephone Encounter - Daxa Lucio - 12/02/2024 4:13 AM EDTPending Prescriptions: Disp Refills Memantine HCl 5 MG Oral Tablet [Pharmacy M*60 Tab*1 Sig: Take 5mg once daily for 7 days, then increase to 5 mg twice daily until seen again. For pain documented in this encounter Plan of Treatment Upcoming Encounters Date Type Department Care Team (Latest Contact Info) Description 12/04/2024 1:20 PM EDT Office Visit [facility] [address] [place] [address] Melissa Cruz PA-C [address] [place] [address] 12/05/2024 10:30 AM EDT Nurse Only Wound Care, [address] [place] [address] [facility], Nurse Wound Care 400 [facility] [place] [address] 12/09/2024 9:30 AM EDT Telemedicine [facility], [address] [place] [address] Jordan Arrieta MD [address] [facility] [address] 12/09/2024 10:30 AM EDT Nurse Only Wound Care, [address] [address] [facility], Nurse Wound Care [address] [place] [address] 12/12/2024 10:30 AM EDT Nurse Only Wound Care, [address] [address] [facility], Nurse Wound Care [address] [place] [address] 12/15/2024 10:30 AM EDT Nurse Only Wound Care, [address] [address] [facility], Nurse Wound Care [address] [place] [address] 12/19/2024 10:30 AM EDT Nurse Only Wound Care, [address] [address] [facility], Nurse Wound Care [address] [place] [address] 01/05/2025 10:40 AM EDT Office Visit Wound Care, [address] [address] Yuriy Hilario MD [address] [place] [address] [place] [address] 01/07/2025 9:30 AM EDT Telemedicine Pharmacy, [address] [place] [address] [facility] 126 [facility] [place] [address] 2025 2:30 PM EDT Office Visit Orthopaedics, [facility] [address] [place] [address] [place] [address] Franky Avitia PA-C [address] [place] [address] 01/23/2025 10:09 AM EDT Hospital Encounter OR [facility], Operating Room, [facility] - 4th Floor [address] [place] [address] Joel Truong MD [address] [place] [address] 01/23/2025 10:09 AM EDT - 01/23/2025 10:53 AM EDT Surgery OR [facility], Operating Room, [facility] - 4th Floor [address] [place] [address] Joel Truong MD [address] [place] [address] COLONOSCOPY FLEXIBLE PROXIMAL DIAGNOSTIC 01/26/2025 3:30 PM EDT [place] [address] [place] [address] Geovanna Patel PA-C [address] [place] [address] 02/19/2025 11:20 AM EDT Office Visit [employer] Urology [place] [address] [place] [address] Cem Madrigal MD [address] [place] [address] Scheduled Procedures Name Priority Associated Diagnoses Date/Ti [...] this encounter Medical Devices Implanted Type Area Direct Service Worker Device Identifier Shelf Expiration Date Model / Serial / Lot Device Perm Cntrl [id number] - [id number] Implanted:Qty: 2 on 09/27/2015 by Sharda Ruiz, Corey Rucker MD at OR [facility] Uterus [employer] 05/03/2017 [id number] / / [id number] documented as of this encounter Advance Directives [...] Power of Attor benoit? No Care Teams Refuge Worker Relationship Specialty Start Date End Date Melissa Cruz PA-C [address] [place] [address] PCP - General Physician [employer] Professional 09/29/24 documented as of this encounter
--- OUTSIDE RECORDS SUMMARY | 2024-12-08 15:10 | External Medical Summary | Summary of Care ---
Author Name Unknown Organization [facility] Address [address] [place] [address] Phone [phone] Care Team Providers Care Air Control Electronics Operator Name Role Phone Melissa Cruz Chang AGUILAC Primary Care Provider [phone]- [phone] Reason for Visit * Reason Comments Follow Up BLE -- WOUNDS EDEMA -- Encounter Details Date Type Department Care Team (Late st Contact Info) Description 11/18/2024 11:20 AM EDT Office Visit Wound Care, [facility] [address], [place] [phone] Yuriy Hilario MD [address], [place] [id number] Multiple open wounds of lower leg, unspecified laterality, subsequent encounter* Allergies Active Allergy Reactions Criticality Noted Date Comments Aspirin 01/27/2014 Increased bleeding documented as of this encounter (statuses as of 11/18/2024) Medications traZODone (DESYREL) 50 MG Tablet Take [...] day as needed for Anxiety. 4 Active Montelukast Sodium 10 MG Oral [...] THE MORNING 90 Tablet 1 5 Active Memantine HCl 5 MG Oral Tablet Take 5 mg once daily for 7 days, then increase to 5 mg twice daily until seen again. For pain 60 Tablet 1 Active Tart Garcia 1200 MG Oral Capsule Take 3,600 mg by mouth once. Active Turmeric Complex/Black Pepper 5-1000 MG Oral Capsule (Black Pepper-Turmeric) Take 2 Capsules by mouth once. Active Vitamin D3 50 MCG (2000 UT) Oral CapsuleIndication s:Vitamin D deficiency TAKE 1 CAPSULE BY MOUTH EVERY DAY IN THE MORNING 90 Capsule Active Pregabalin 150 MG Oral Capsule (Lyrica)Indicatio ns:Neuropathy Take 1 Capsule by mouth in the morning and 1 Capsule at noon and 1 Capsule before bedtime. 90 Capsule 2 5 Active documented as of this encounter (statuses as of 11/18/2024) Active Problems Problem Noted Date Diagnosed Date [...] as of this encounter (statuses as of 11/18/2024) Resolved Problems Problem Noted Date Diagnosed Date [...] as of this encounter (statuses as of 11/18/2024) Immunizations Name Administration Dates Next Due HEPATITIS B VACCINE, RECOMB, 20 MCG/ML, ADULT (HEPLISAV-B) 09/16/2024 Pneumococcal Conjugate Vacci ne, 20-valent ([id number]) 12/04/2022 Pneumococcal Polysaccharide PPV23 (Pneumovax) 05/06/2011 Seasonal [...] Progress Notes * Yuriy Hilario MD - 11/18/2024 11:24 AM EDT Images from the original note were not included. WOUND OUTPATIENT FOLLOW-UP NOTE DOS: 11/18/2024 CC: Follow-up HPI: Mica Jimenez returns for follow-up of bilateral lower leg wounds. Current dressing: See Wound Assessment Dressing change frequency: every 2-3 days Subjective ROS: Pain: no Drainage: minimal Swelling: no Erythema: no Fever/Chills: no Malaise: no ROS was negative other than stated above. Tobacco History: Social History Tobacco Use Smoking Status Former Current packs/day: 0.00 Average packs/day: 1 pack/day for 5.0 years (5.0 ttl pk-yrs) Types: Cigarettes Start date: 06/06/2007 Quit date: 06/06/2012 Years since quittin.4 Passive exposure: Current Smokeless Tobacco Never Objective There were no vitals filed for this visit. WOUND ASSESSMENT: Alteration in Skin Integrity Proximal;Right;Medial Leg (Active) Clinical Image 11/18/24 1115 Wound Length (cm) 3.5 cm 11/18/24 1115 Wound Width (cm) 0.7 cm 11/18/24 1115 Wound Depth (cm) 0.1 cm 11/18/24 1115 Ulcer Thickness Full 11/18/24 1115 Yellow Fibrinous Slough (%) none 11/18/24 1115 Granulation Tissue (%) 100% 11/18/24 1115 Granulation Tissue Color pale/pink 11/18/24 1115 Necrotic Tissue (%) none 11/18/24 1115 Deep Supporting Structure Exposed None 11/18/24 1115 Drainage serous, mild 11/18/24 1115 Odor (after cleansing wound) No 11/18/24 1115 Jaye-Wound (Surrounding Skin) Edema 11/18/24 1115 Wound Surface Area (cm^2) 2.45 cm^2 11/18/24 1115 Wound Volume (cm^3) 0.245 cm^3 11/18/24 1115 Alteration in Skin Integrity Proximal;Left;Medial Leg (Active) Clinical Image 11/18/24 1111 Wound Length (cm) 7 cm 11/18/24 1111 Wound Width (cm) 3.5 cm 11/18/24 1111 Wound Depth (cm) 0.2 cm 11/18/24 1111 Ulcer Thickness Full 11/18/24 1111 Yellow Fibrinous Slough (%) 51-75% 11/18/24 1111 Granulation Tissue (%) 26-50% 11/18/24 1111 Granulation Tissue Color red 11/18/24 1111 Necrotic Tissue (%) none 11/18/24 1111 Deep Supporting Structure Exposed None 11/18/24 1111 Drainage serosanguinous, heavy 11/18/24 1111 Odor (after cleansing wound) No 11/18/24 1111 Jaye-Wound (Surrounding Skin) Edema;Erythematous 11/18/24 1111 Wound Surface Area (cm^2) 24.5 cm^2 11/18/24 1111 Wound Volume (cm^3) 4.9 cm^3 11/18/24 1111 Alteration in Skin Integrity Left;Medial Knee (Active) Alteration in Skin Integrity Lower;Right;Medial Leg (Active) Clinical Image 11/18/24 111 Wound Length (cm) -- (Blocked two sites most medial) 11/18/24 111 Wound Width (cm) 7.5 cm 11/18/24 111 Wound Depth (cm) 3.8 cm 11/18/241118 Ulcer Thickness Full 11/18/24 111 Yellow Fibrinous Slough (%) 76-99% 11/18/24 111 Granulation Tissue (%) 1-25% 11/18/241118 Granulation Tissue Color red 11/18/241118 Necrotic Tissue (%) none 11/18/24 1119 Deep Supporting Structure Exposed None 11/18/24 1119 Drainage serosanguinous, heavy 11/18/24 1119 Odor (after cleansing wound) No 11/18/24 111 Jaye-Wound (Surrounding Skin) Edema;Erythematous 11/18/24 111 Alteration in Skin Integrity Anterior;Right Knee (Active) Clinical Image 11/18/24 111 Wound Length (cm) 9.4 cm (Blocked two anterior sites) 11/18/24 111 Wound Width (cm) 2.6 cm 11/18/24 111 Wound Depth (cm) 0.2 cm 11/18/24 111 Ulcer Thickness Full 11/18/24 1117 Yellow Fibrinous Slough (%) 26-50% 11/18/24 111 Granulation Tissue (%) 51-75% 11/18/24 111 Granulation Tissue Color pale/pink 11/18/24 111 Necrotic Tissue (%) none 11/18/241116 Deep Supporting Structure Exposed None 11/18/24 111 Drainage serosanguinous, heavy 11/18/241116 Odor (after cleansing wound) No 11/18/241116 Jaye-Wound (Surrounding Skin) Edema;Erythematous 11/18/241116 Wound Surface Area (cm^2) 24.44 cm^2 11/18/24 111 Wound Volume (cm^3) 4.888 cm^3 11/18/24 111 Alteration in Skin Integrity Anterior;Left;Lower Leg (Active) Clinical Image 11/18/241113 Wound Length (cm) 0.4 cm 11/18/241113 Wound Width (cm) 0.3 cm 11/18/241113 Wound Depth (cm) 0.1 cm 11/18/241113 Ulcer Thickness Full 11/18/24 111 Yellow Fibrinous Slough (%) none 11/18/24 1114 Granulation Tissue (%) 100% 11/18/241113 Granulation Tissue Color pale/pink 11/18/24 111 Necrotic Tissue (%) none 11/18/241113 Drainage serous, mild 11/18/241113 Odor (after cleansing wound) No 11/18/241113 Jaye-Wound (Surrounding Skin) Edema 11/18/241113 Wound Surface Area (cm^2) 0.12 cm^2 11/18/24 111 Wound Volume (cm^3) 0.012 cm^3 11/18/24 111 The wounds continue to appear better. Assessment & Plan ASSESSMENT: ICD-10-CM 1. Multiple open wounds of lower leg, unspecified laterality, subsequent encounter S81.809D PLAN: Optifoam, Unna Boot over lower leg, Kerlix and ABD pads over Optifoam. Twice weekly. Follow-up: Return in about 6 weeks (around 12/30/2024). | Check-out note: Nurse visits 2x / week I spent a total of 10-19 minutes (exact time 15 mins) on the date of service in preparation, delivery, and documentation of the care provided to Mica Jimenez excluding any time spent in the performance of separately billed services or time spent by another provider/QHP. Lillian Hilario MD documented in this encounter Nursing Notes * Isha Ruiz CMA - 11/18/2024 12:37 PM EDT Treatment provided per 's order. MAURICIO Acuña LPN assisted with care. No Calmoseptine or Vaseline were applied this visit. 5 Opticel foam pads to cover all open wounds these were then secured with Medipore 4 inch tape per her request. 4 ABD pads were placed, 1 at each ankle then and two at knees to help with shape of leg to better support Unna Boot. Her leg is then wrapped from toes to knees with the kerlix to secure ABD Pads. Unna Z andCoban applied from toes to cover dressings at knee then Surgialst #5 to protect Coban. She was thenassisted with socks and sneakers. Assisted out of exam chair and into wheel chair. Pushed to check out. * Megha López LPN - 11/18/2024 11:05 AM EDT Images from the original note were not included. Care Team for Mica -- This ELIZA and ALPESH -- N.P -- Assisted to sit safely on the exam seating fromw/c -- No dany wraps or any type of compression to lower legs again -- stated no help-- Mica stated UnnaBoots removed on Sunday and dressings applied to wounds and change Sunday evening -- all wounds with HEAVY SEROSANGUINOUS DRAINAGE. Dressings removed -- wounds then legs/ feet washed with soap and water tolerated -- Photos and measurements taken -- documented in this encounter Plan of Treatment Upcoming Encounters Date Type Department Care Team (Late st Contact Info) Description 11/21/2024 10:30 AM EDT Nurse Only Wound Care, [address] [place] [address] [facility], Nurse Wound Care [address] [place] [address] 11/25/2024 10:30 AM EDT Nurse Only Wound Care, [address] [place] [address] [facility], Nurse Wound Care [address] [place] [address], [place] [address] 11/27/2024 10:00 AM EDT Office Visit BAG CHECKER Urology [address] [place] [address] Cem Madrigal MD [address] [place] [address] [place] [address] 11/28/2024 10:30 AM EDT Nurse Only Wound Care, [address] [place] [address] [facility], Nurse Wound Care [address] [place] [address] 12/02/2024 9:00 AM EDT [facility] [address] [facility] [address] 12/02/2024 10:30 AM EDT Nurse Only Wound Care, [address] [address] [facility], Nurse Wound Care [address] [place] [address] 12/04/2024 1:20 PM EDT Office Visit [facility] [address] [place] [address] Melissa Cruz PA-C [address] [place] [address] 12/05/2024 10:30 AM EDT Nurse Only Wound Care, [address] [address] [facility], Nurse Wound Care [address] [place] [address] 12/09/2024 9:30 AM EDT [facility] [place] [address] Jordan Arrieta MD [address] [place] [address] [place] [address] 12/09/2024 10:30 AM EDT Nurse Only Wound Care, [address] [place] [address] [facility], Nurse Wound Care [address] [place] [address] 12/09/2024 1:00 PM EDT Appointment Cardiac Studies, [address] [place] [address] 12/12/2024 10:30 AM EDT Nurse Only Wound Care, [address] [place] [address] [facility], Nurse Wound Care [address] [place] [address] [place] [address] 12/19/2024 10:30 AM EDT Nurse Only Wound Care, [address] [place] [address] [facility], Nurse Wound Care [address] [place] [address] [place] [address] 01/05/2025 10:40 AM EDT Office Visit Wound Care, [address] [place] [address] Yuriy Hilario MD [address] [place] [address] 01/06/2025 10:00 AM EDT Office Visit Orthopaedics, [facility] [address] [place] [address] Franky Avitia PA-C 310 [facility] [place] [address] 01/23/2025 10:09 AM EDT Hospital Encounter OR [facility], Operating Room, [facility] - 4th Floor [address] [place] [phone] Joel Truong MD [address] [place] [address] 01/23/2025 10:09 AM EDT - 01/23/2025 10:53 AM EDT Surgery OR [facility], Operating Room, [facility] - 4th Floor [address] [place] [address] Joel Truong MD [address] [place] [address] COLONOSCOPY FLEXIBLE PROXIMAL DIAGNOSTIC 01/26/2025 3:30 PM EDT Office Visit Cardiology, [place] [address] [place] [address] Geovanna Patel PA-C [address] [place] [address] Scheduled Procedures Name Priority Associated Diagnoses Date/Ti me COLONOSCOPY FLEXIBLE PROXIMAL DIAGNOSTIC Screening for colon cancer 01/23/2025 10:09 AM EDT Health Maintenance Due Date Last Done Comments HPV/Co-Test 01/12/2006 Mammogram 06/06/2019 06/06/2018, 09/18/2016 Cologuard 01/12/2021 Colonoscopy 01/12/2021 12/02/2008 Colorectal Cancer Screening 01/12/2021 Fecal Occult Blood Test 01/12/2021 Sigmoidoscopy 01/12/2021 Cervical Cancer Screening 01/11/2024 Pap Smear 01/11/2024 01/10/2021, 03/11/2013, 02/10/2009 COVID-19 Vaccine ( season) 2024 Hepatitis [...] this encounter Medical Devices Implanted Type Area Budget Report Clerk Device Identifier Shelf Expiration Date Model / Serial / Lot Device Perm Cntrl [id number] - [id number] Implanted:Qty: 2 on 09/27/2015 by Sharda Ruiz, Corey Rucker MD at OR [facility] Uterus [employer] 05/03/2017 [id number] / / [id number] documented as of this encounter Visit Diagnoses [...] Power of Attor benoit? No Care Teams Air Control Electronics Operator Relationship Specialty Start Date End Date Melissa Cruz, AYLAC [address] [place] [address] PCP - General Physician Prenatal Genetic Counselor 09/29/24 documented as of this encounter"
--- OUTSIDE RECORDS SUMMARY | 2024-12-08 15:10 | External Medical Summary | Summary of Care ---
Author Name Unknown Organization [facility] Address [address] [place] [address] Phone [phone] Care Team Providers Care Sand Molder Name Role Phone Melissa Cruz Chang FONSECA Primary Care Provider +1- [phone] Reason for Visit * Reason Onset Date Comments Advice 11/25/2024 11/25/2024: LMOM : Erythema Encounter Details Date Type Department Care Team (Late st Contact Info) Description 11/25/2024 Telephone Wound Care, [facility] [address] [facility] [place] [phone] Yuriy Hilario MD [address] [facility] [place] [phone] Advice (11/25/2024: LMOM: Erythema) Allergies Active Allergy Reactions Criticality Noted Date Comments Aspirin 01/27/2014 Increased bleeding documented as of this encounter (statuses as of 11/25/2024) Medications traZODone (DESYREL) 50 MG Tablet Take [...] again. For pain 60 Tablet 1 5 Active Tart Garcia 1200 [...] as of this encounter (statuses as of 11/25/2024) Active Problems Problem Noted Date Diagnosed Date [...] as of this encounter (statuses as of 11/25/2024) Resolved Problems Problem Noted Date Diagnosed Date [...] as of this encounter (statuses as of 11/25/2024) Immunizations Name Administration Dates Next Due HEPATITIS B VACCINE, RECOMB, 20 MCG/ML, ADULT (HEPLISAV-B) 09/16/2024 Pneumococcal Conjugate Vacci ne, 20-valent ([id number]) 12/04/2022 Pneumococcal Polysaccharide PPV23 (Pneumovax) 05/06/2011 Seasonal [...] Telephone Encounter - Veda Jacobson CMA - 11/25/2024 12:22 PM EDT Patient returned call She has been using vinegar spray - will continue She has not been taking Lasix - encouraged to take medication and she states she will Advised to call with any further questions/concerns * Telephone Encounter - Veda Jacobosn CMA - 11/25/2024 12:13 PM EDT Attempted to contact patient and reached voicemail Left message for patient to return call to the wound clinic Please relay message from Dr. Hilario According to medication list she is to be taking Furosemide 40 mg daily as needed (edema) * Telephone Encounter - Veda Jacobson CMA - 11/25/2024 12:13 PM EDT Images from the original note were not included. Yuriy Hilario MD You16 minutes ago (11:54 AM) She may need to use more of the vinegar solution. Also if she is on a diuretic make sure she is taking it. You routed conversation to Yuriy Hilario MD56 minutes ago (11:15 AM) * Telephone Encounter - Veda Jacobson CMA - 11/25/2024 11:08 AM EDT Images from the original note were not included. Charity Hilario Patient was in today for dressing/unna boot change Overall wound bed appearance doesn't look significantly different however jael- wounds were extremely red today, although not warm to the touch, drainage is about the same as always - mild/moderate serosanguinous Temp is 36.9 C, she denies fever, chills, n/v/d, chest pain or increased pain - denies ill feeling I just wanted to let you know - she did change to ABD pads 2 days ago and used a large amount of tape to keep them in place, so I thought the redness could possibly be from that. I did advise patient to monitor for increased pain, redness, drainage, fever, chills, n/v/d or ill feeling to call the office or convenient care if warranted Do you have any other recommendations? Thanks documented in this encounter Plan of Treatment Upcoming Encounters Date Type Department Care Team (Late st Contact Info) Description 11/27/2024 10:00 AM EDT Office Visit RECRUITER ACCOUNT MANAGER Urology [facility] 400 [place] [address] Cem Madrigal MD [address] [place] [address] 11/28/2024 10:30 AM EDT Nurse Only Wound Care, [address] [place] [address] [facility], Nurse Wound Care [address] [place] [address] 12/02/2024 9:00 AM EDT [facility] 21 [place] [address] [facility] [address] [place] [address] 12/02/2024 10:30 AM EDT Nurse Only Wound Care, [address] [place] [address] [facility], Nurse Wound Care [address] [place] [address] 12/04/2024 1:20 PM EDT Office Visit [facility] [address] [place] [address] Melissa Cruz PA-C [address] [place] [address] 12/05/2024 10:30 AM EDT Nurse Only Wound Care, [address] [place] [address] [facility], Nurse Wound Care [address] [place] [address] 12/09/2024 9:30 AM EDT [facility] [address] Jordan Arrieta MD [address] [facility] [place] [address] 12/09/2024 10:30 AM EDT Nurse Only Wound Care, [address] [place] [address] [facility], Nurse Wound Care [address] [place] [address] 12/09/2024 1:00 PM EDT Appointment Cardiac Studies, [address] [address] 12/12/2024 10:30 AM EDT Nurse Only Wound Care, [address] [address] [facility], Nurse Wound Care [address] [place] [address], [place] [address] 12/15/2024 10:30 AM EDT Nurse Only Wound Care, [address] [address] [facility], Nurse Wound Care [address] [place] [address] [place] [address] 12/19/2024 10:30 AM EDT Nurse Only Wound Care, [address] [address] [facility], Nurse Wound Care [address] [place] [address] [place] [address] 01/05/2025 10:40 AM EDT Office Visit Wound Care, [address] [address] Yuriy Hilario MD [address] [place] [address] 01/06/2025 10:00 AM EDT Office Visit [facility]ed[facility], [place] [facility] [address] [place] [address] Franky Avitia PA-C [address] [place] [address] 01/23/2025 10:09 AM EDT Hospital Encounter OR [facility], Operating Room, [facility] - 4th Floor [address] [place] [address] Joel Truong MD [address] [place] [address] 01/23/2025 10:09 AM EDT - 01/23/2025 10:53 AM EDT Surgery OR [facility], Operating Room, [facility] - 4th Floor [address] [place] [phone] Joel Truong MD [address] [place] [address] COLONOSCOPY FLEXIBLE PROXIMAL DIAGNOSTIC 01/26/2025 3:30 PM EDT Office Visit Cardiology, [place] [address] [place] [address] Geovanna Patel PA-C [address] [place] [address] Scheduled Procedures Name Priority Associated Diagnoses Date/Ti [...] this encounter Medical Devices Implanted Type Area Outdoor Adventure Guides Device Identifier Shelf Expiration Date Model / Serial / Lot Device Perm Cntrl [id number] - [id number] Implanted:Qty: 2 on 09/27/2015 by Sharda Ruiz, Corey Rucker MD at OR [facility] Uterus [employer] 05/03/2017 [id number] / / [id number] documented as of this encounter Advance Directives [...] Power of Attor benoit? No Care Teams Sand Molder Relationship Specialty Start Date End Date Melissa Cruz PA-C [address] [place] [address] PCP - General Physician Equalizing Saw Operator 09/29/24 documented as of this encounter
--- OUTSIDE RECORDS SUMMARY | 2024-12-08 15:10 | External Medical Summary | Summary of Care ---
Author Name Unknown Organization [facility] Address [address] [place] [address] Phone [phone] Care Team Providers Care Forestry Farm Laborer Name Role Phone Melissa Cruz [place] FONSECA Primary Care Provider +1- [phone] Reason for Visit * Reason Comments Wound Care BLE Encounter Details Date Type Department Care Team (Late st Contact Info) Description 11/28/2024 10:30 AM EDT Nurse Only Wound Care, [facility] [address] [place] [address] [facility], Nurse Wound Care [address] [place] [address] Wound Care (BLE ) Allergies Active Allergy Reactions Criticality Noted Date Comments Aspirin 01/27/2014 Increased bleeding documented as of this encounter (statuses as of 11/28/2024) Medications traZODone (DESYREL) 50 MG Tablet Take [...] the morning. 90 Tablet 11 5 Active documented as of this encounter (statuses as of 11/28/2024) Active Problems Problem Noted Date Diagnosed Date [...] as of this encounter (statuses as of 11/28/2024) Resolved Problems Problem Noted Date Diagnosed Date [...] as of this encounter (statuses as of 11/28/2024) Immunizations Name Administration Dates Next Due HEPATITIS B VACCINE, RECOMB, 20 MCG/ML, ADULT (HEPLISAV-B) 09/16/2024 Pneumococcal Conjugate Vacci ne, 20-valent ([id number]) 12/04/2022 Pneumococcal Polysaccharide PPV23 (Pneumovax) 05/06/2011 Seasonal [...] Patient Instructions * Patient Instructions* Veda Jacobson, CAFE ASSOCIATE - 11/28/2024 11:03 AM EDT Compression Therapy Education: Any questions, redness or swelling around the wound and development of a temperature of 101F or greater, please contact the [facility]. Please check your toes frequently. If they become blue, purple, pale, cool, numb, and/or tingling elevate your leg higher than your heart for one hour. If you have no relief of the symptoms, cut the entire wrap off and call the [facility], . Keep the wrap dry. If the wrap slides down or bunches at the ankle, call [facility]. Elevate legs above heart for 30 minutes [...] Nursing Notes * Veda Jacobson CMA - 11/28/2024 11:00 AM EDT Treatment done as ordered by Dr. Hilario Vaseline to both feet due to dry skin Optifoam AG Gentle to each wound bed, ABD pads applied at different sections of the leg to help shape the leg for the unna wrap, then wrapped with Kerlix. Zinc unna boot applied to BLE Discharge Instructions: Unna Boot You will be [...] dressing that smells different than usual Compression education reviewed with patient and understanding was voiced Patient was advised to call sooner than next scheduled appointment with any questions/concerns Compression Therapy Education: Any questions, redness or swelling around the wound and development of a temperature of 101F or greater, please contact the [facility]. Please check your toes frequently. If they become blue, purple, pale, cool, numb, and/or tingling elevate your leg higher than your heart for one hour. If you have no relief of the symptoms, cut the entire wrap off and call the [facility], . Keep the wrap dry. If the wrap slides down or bunches at the ankle, call [facility]. Elevate legs above heart for 30 minutes 2-3 times a day. Assisted patient from exam chair to wheelchair safely and I pushed patient in her wheelchair to check out * Veda Jacobson CMA - 11/28/2024 10:58 AM EDT Chief Complaint Patient presents with Wound Care BLE Patient was instructed to not get up on the exam table/exam chair until directed and assisted by their provider; patient is to remain seated in the chair/ wheelchair/ exam table/ exam chair for fall prevention and safety reasons. Patient is aware to have assistance to step down off exam table/exam chair with personnel. Patient voiced full comprehension of instructions. BLE shoes, socks and foam pads removed Patient states her unna boots came off yesterday but foam is in place since Sunday's application Wounds then legs and feet washed with soap and water and towel dried. Patient tolerated well. Wound beds appear the same, still has erythema to jael-wounds, however not as bad as Sunday Still with moderate serosanguinous exudate documented in this encounter Plan of Treatment Upcoming Encounters Date Type Department Care Team (Late st Contact Info) Description 12/02/2024 9:00 AM EDT Telemedicine Pharmacy, [place] 21 [facility] [place] [address] [facility] [address] [place] [address] 12/02/2024 10:30 AM EDT Nurse Only Wound Care, [address] [place] [address] [facility], Nurse Wound Care [address] [place] [address] 12/04/2024 1:20 PM EDT Office Visit [facility] [address] [place] [address] Melissa Cruz PA-C [address] [place] [address] 12/05/2024 10:30 AM EDT Nurse Only Wound Care, [address] [place] [address] [facility], Nurse Wound Care [address] [place] [address] 12/09/2024 9:30 AM EDT Telemedicine [facility], [address] [place] [address] Jordan Arrieta MD 126 [place] [address] 12/09/2024 10:30 AM EDT Nurse Only Wound Care, [address] [address] [facility], Nurse Wound Care [address] [place] [address] 12/09/2024 1:00 PM EDT Appointment Cardiac Studies, [address] [address] 12/12/2024 10:30 AM EDT Nurse Only Wound Care, [address] [address] [facility], Nurse Wound Care [address] [place] [address] 12/15/2024 10:30 AM EDT Nurse Only Wound Care, [address] [address] [facility], Nurse Wound Care [address] [place] [address] 12/19/2024 10:30 AM EDT Nurse Only Wound Care, [address] [address] [facility], Nurse Wound Care [address] [place] [address] 01/05/2025 10:40 AM EDT Office Visit Wound Care, [address] [address] Yuriy Hilario MD [address] [place] [address] [place] [address] 2025 2:30 PM EDT Office Visit Orthopaedics, [place] [address] [facility] [address] [place] [address] Franky Avitia PA-C [address] [place] [address] 01/23/2025 10:09 AM EDT Hospital Encounter OR [facility], Operating Room, [facility] - 4th Floor [address] [place] [id number] Joel Truong MD [address] [place] [address] 01/23/2025 10:09 AM EDT - 01/23/2025 10:53 AM EDT Surgery OR [facility], Operating Room, [facility] - 4th Floor [address] [place] [phone] Joel Truong MD [address] [place] [address] COLONOSCOPY FLEXIBLE PROXIMAL DIAGNOSTIC 01/26/2025 3:30 PM EDT [facility] [address] [place] [address] Geovanna Patel PA-C 400 [facility] [place] [address] 02/19/2025 11:20 AM EDT Office Visit COMPLEX COMMERCIAL LITIGATION PARALEGAL Urology [facility] [place] [address] [place] [address] Cem Madrigal MD [address] [place] [address] Scheduled Orders Name Type Priority Associated Diagnoses Orde r Schedule UNNA BOOT (NURSE APPLY) Procedures Routine Multiple open wounds of lower leg, unspecified laterality, subsequent encounter Lymphedema Type 2 diabetes mellitus with hemoglobin A1c goal of less than 7.0% ([facility]) Class 3 severe obesity due to excess calories with serious comorbidity and body mass index (BMI) greater than or equal to 70 in adult (HCC) Irritant contact dermatitis due to other body fluid Multiple open wounds of lower leg, unspecified laterality, initial encounter In 3 days for 30 Occurrences starting 11/28/2024 until 01/07/2025 Scheduled Procedures Name Priority Associated Diagnoses Date/Ti [...] this encounter Medical Devices Implanted Type Area Cooler Man Device Identifier Shelf Expiration Date Model / Serial / Lot Device Perm Cntrl [id number] - [id number] Implanted:Qty: 2 on 09/27/2015 by Sharda Ruiz, Corey Rucker MD at OR [facility] Uterus [employer] 05/03/2017 [id number] / / [id number] documented as of this encounter Visit Diagnoses Diagnosis Multiple open wounds of lower leg, unspecified laterality, initial encounter- Primary Multiple open wounds of lower leg, unspecified laterality, subsequent encounter Lymphedema Other lymphedema Type 2 diabetes mellitus with hemoglobin A1c goal of less than 7.0% (HCC) Class 3 severe obesity due to excess [...] Power of Attor benoit? No Care Teams Forestry Farm Laborer Relationship Specialty Start Date End Date Melissa Cruz, AYLAC [address] [place] [phone] PCP - General Physician Auto Claim Representative 09/29/24 documented as of this encounter
--- OUTSIDE RECORDS SUMMARY | 2024-12-08 15:10 | External Medical Summary | Summary of Care ---
Author Name Unknown Organization [facility] Address [address] [place] [address] Phone [phone] Care Team Providers Care Stock Or Delivery Clerk Name Role Phone CarylMelissa mansfield Chang FONSECA Primary Care Provider +1- [phone] Reason for Visit * Reason Comments Wound Care BLE Patient removed unna boots Sunday night and states she ran out of foam pads so 2 days ago she applied ABD pads to RLE wounds with a large amount of tape Encounter Details Date Type Department Care Team (Late st Contact Info) Description 11/25/2024 10:30 AM EDT Nurse Only Wound Care, [facility] [address] [place] [address] [facility], Nurse Wound Care [address] [place] [address] Wound Care (BLE /Patient removed unna boot... Allergies Active Allergy Reactions Criticality Noted Date [...] (HEPLISAV-B) 09/16/2024 Pneumococcal Conjugate Vacci ne, 20-valent ([id number]) 12/04/2022 Pneumococcal Polysaccharide PPV23 (Pneumovax) 05/06/2011 Seasonal [...] Pressure - - Pulse - - Temperature 36.9 °C (98.4 °F) 11/25/2024 10:40 AM E DT Respiratory Rate - - Oxygen Saturation - - Inhaled Oxygen Concentration - - Weight 158.8 kg (350 lb) 11/25/2024 10:40 AM EDT Height - - Body Mass Index 70.69 10/24/2024 9:41 AM EDT documented in this encounter Patient Instructions * Patient Instructions* DeepdialloVeda woodardALPESH - 11/25/2024 11:24 AM EDT Discharge Instructions: Unna Boot You will [...] or greater, please contact the [facility]. Please check your toes frequently. If they become blue, purple, pale, cool, numb, and/or tingling elevate your leg higher than your heart for one hour. If you have no relief of the symptoms, cut the entire wrap off and call the [facility], . Keep the wrap dry. If the wrap slides down or bunches at the ankle, call [facility]. Elevate legs above heart for 30 minutes 2-3 times a day. documented in this encounter Nursing Notes * Veda Jacobson CMA - 11/25/2024 11:21 AM EDT Treatment done as ordered by Dr. Hilario Optifoelvia AG Gentle applied to all wound beds ABD pads applied to shape legs Zinc unna boots applied BLE, covered with coban then size 5 Surgilast Socks and shoes applied Compression education reviewed with patient and understanding [...] or greater, please contact the [facility]. Please check your toes frequently. If they become blue, purple, pale, cool, numb, and/or tingling elevate your leg higher than your heart for one hour. If you have no relief of the symptoms, cut the entire wrap off and call the [facility], . Keep the wrap dry. If the wrap slides down or bunches at the ankle, call [facility]. Elevate legs above heart for 30 minutes 2-3 times a day. Assisted patient from exam chair to wheelchair safely and I pushed patient in her wheelchair to check out * Veda Jacobson CMA - 11/25/2024 11:17 AM EDT Images from the original note were not included. Chief Complaint Patient presents with Wound Care BLE Patient removed unna boots Sunday night and states she ran out of foam pads so 2 days ago she applied ABD pads to RLE wounds with a large amount of tape Patient was instructed to not get up on the exam table/exam chair until directed and assisted by their provider; patient is to remain seated in the chair/ wheelchair/ exam table/ exam chair for fall prevention and safety reasons. Patient is aware to have assistance to step down off exam table/exam chair with personnel. Patient voiced full comprehension of instructions. BLE dressings removed, as stated earlier patient was only able to keep the unna boots in place for approximately 1 1/2 days, 2 days ago changed foam pad RLE to ABD Pads and large quantity of tape because she states she was out of foam pads Large areas of erythema jael-wounds, however does not feel warm to touch Wound beds do not appear to have changed much since last visit 75-90% slough with 25% granulation, mild to moderate serosanguinous exudate Patient denies feeling ill, denies increased pain/tenderness, n/v/d, chills, fever or chest pain Temp checked and is 36.9 C Will send a separate TE to Dr. Hilaroi Wounds then legs and feet washed with soap and water and towel dried. Patient tolerated well documented in this encounter Plan of Treatment Upcoming Encounters Date Type Department Care Team (Late st Contact Info) Description 11/27/2024 10:00 AM EDT Office Visit MEDICAL LEADER Urology Marilee Nice [address] [place] [address] Cem Madrigal MD 132 [facility] [place] [address] 11/28/2024 10:30 AM EDT Nurse Only Wound Care, [address] [address] [facility], Nurse Wound Care [address] [place] [address] 12/02/2024 9:00 AM EDT Telemedicine [facility], [place] [facility] [place] [address] [facility] [address] 12/02/2024 10:30 AM EDT Nurse Only Wound Care, [address] [address] [facility], Nurse Wound Care [address] [place] [address] 12/04/2024 1:20 PM EDT Office Visit [facility] [address] [place] [address] Melissa Cruz PA-C [address] [place] [address] 12/05/2024 10:30 AM EDT Nurse Only Wound Care, [address] [address] [facility], Nurse Wound Care [address] [place] [address] 12/09/2024 9:30 AM EDT Telemedicine [facility] [address] Jordan Arrieta MD 126 [facility] [place] [address] 12/09/2024 10:30 AM EDT Nurse Only Wound Care, [address] [address] [facility], [facility] [address] 12/09/2024 1:00 PM EDT Appointment Cardiac Studies, [address] [address] 12/12/2024 10:30 AM EDT Nurse Only Wound Care, [address] [address] [facility], Nurse Wound Care 400 [place] [address] 12/15/2024 10:30 AM EDT Nurse Only Wound Care, [address] [place] [address] [facility], Nurse Wound Care [address] [place] [address] 12/19/2024 10:30 AM EDT Nurse Only Wound Care, [address] [place] [address] [facility], Nurse Wound Care [address] [place] [address] 01/05/2025 10:40 AM EDT Office Visit Wound Care, [address] [address] Yuriy Hilario MD 27 [facility] [place] [address] 01/06/2025 10:00 AM EDT Office Visit Orthopaedics, Electric [facility] [address] [place] [address] [place] [address] Franky Avitia PA-C 310 [address] [facility] [address] 01/23/2025 10:09 AM EDT Hospital Encounter OR [facility], Operating Room, [facility] - 4th Floor [address] [place], [place] [address] [address] Joel Truogn MD 132 [facility] [place] [address] 01/23/2025 10:09 AM EDT - 01/23/2025 10:53 AM EDT Surgery OR [facility], Operating Room, [facility] - 4th Floor [address] [place] [phone] Joel Truong MD [address] [place] [address] COLONOSCOPY FLEXIBLE PROXIMAL DIAGNOSTIC 01/26/2025 3:30 PM EDT Office Visit Cardiology, [place] [address] [place] [address] Geovanna Patel PA-C [address] [place] [address] Scheduled Procedures Name Priority Associated Diagnoses Date/Ti [...] this encounter Medical Devices Implanted Type Area Form Setter Helper Device Identifier Shelf Expiration Date Model / Serial / Lot Device Perm Cntrl [id number] - [id number] Implanted:Qty: 2 on 09/27/2015 by Sharda Ruiz, Corey Rucker MD at OR [facility] Uterus [employer] 05/03/2017 [id number] / / [id number] documented as of this encounter Visit Diagnoses Diagnosis Multiple open wounds of lower leg, unspecified laterality, subsequent encounter- Primary Lymphedema Other lymphedema Type 2 diabetes mellitus with hemoglobin A1c goal of less than 7.0% ([facility]) Class 3 severe obesity due to excess calories with serious comorbidity and body mass index (BMI) greater than or equal to 70 in adult ([facility]) Irritant contact dermatitis due to other body [...] Power of Attor benoit? No Care Teams Stock Or Delivery Clerk Relationship Specialty Start Date End Date Melissa Cruz PA-C [address] [place] [address] PCP - General Physician Dye Range Operator 09/29/24 documented as of this encounter
--- OUTSIDE RECORDS SUMMARY | 2024-12-08 15:10 | External Medical Summary | Summary of Care ---
Author Name Unknown Organization [facility] Address [address] [place] [address] Phone [phone] Care Team Providers Care Supply Chain Business Analyst Name Role Phone CarylMelissa mansfield [place] FONSECA Primary Care Provider +1- [phone] Reason for Visit * Reason Onset Date Comments Appointment Canceled 11/19/2024 Appt cancel led Encounter Details Date Type Department Care Team (Late st Contact Info) Description 11/19/2024 Telephone Wound Care, [facility] [address] [place] [address] Care, Nurse Wound [address] [place] [address] Appointment Canceled (Appt cancelled) Allergies Active Allergy Reactions Criticality Noted Date Comments Aspirin 01/27/2014 Increased bleeding documented as of this encounter (statuses as of 11/19/2024) Medications traZODone (DESYREL) 50 MG Tablet Take [...] as of this encounter (statuses as of 11/19/2024) Active Problems Problem Noted Date Diagnosed Date [...] as of this encounter (statuses as of 11/19/2024) Resolved Problems Problem Noted Date Diagnosed Date [...] as of this encounter (statuses as of 11/19/2024) Immunizations Name Administration Dates Next Due HEPATITIS B VACCINE, RECOMB, 20 MCG/ML, ADULT (HEPLISAV-B) 09/16/2024 Pneumococcal Conjugate Vacci ne, 20-valent ([id number]) 12/04/2022 Pneumococcal Polysaccharide PPV23 (Pneumovax) 05/06/2011 Seasonal [...] encounter Miscellaneous Notes * Telephone Encounter - Madeline Joy OSA - 11/19/2024 11:13 AM EDT Spoke to patient & explained we don't have anything else available for the . She said she will wait until the . * Telephone Encounter - Naima Brady OSA - 11/19/2024 9:36 AM EDT Good morning, Patient is calling in about her needing to change her appt on the with the nurse to be seen for wound care. Please contact patient to have rescheduled. Naima Stout documented in this encounter Plan of Treatment Upcoming Encounters Date Type Department Care Team (Late st Contact Info) Description 11/25/2024 10:30 AM EDT Nurse Only Wound Care, [address] [place] [address] [facility], Nurse Wound Care [address] [place], [place] [address] [address] 11/27/2024 10:00 AM EDT Office Visit SLOT OPERATIONS MANAGER Urology [facility] 400 [facility] [place] [address] Cem Madrigal MD [address] [place] [address] [place] [address] 11/28/2024 10:30 AM EDT Nurse Only Wound Care, [address] [place] [address] [facility], Nurse Wound Care [address] [place] [address] [place] [address] 12/02/2024 9:00 AM EDT Telemedicine Pharmacy, [place] 21 [facility] [place] [address] Marilee [facility] [address] [facility] [place] [address] 12/02/2024 10:30 AM EDT Nurse Only Wound Care, [address] [address] [facility], Nurse Wound Care [address] [place], [place] [address] [address] 12/04/2024 1:20 PM EDT Office Visit [facility] [address] [place] [address] Melissa Cruz PA-C [address] [place] [address] 12/05/2024 10:30 AM EDT Nurse Only Wound Care, [address] [address] [facility], Nurse Wound Care [address] [place], [place] [address] [address] 12/09/2024 9:30 AM EDT [facility]icine [facility] [place] [address] Jordan Arrieta MD [address] [place] [address] 12/09/2024 10:30 AM EDT Nurse Only Wound Care, [address] [address] [facility], Nurse Wound Care [address] [place], [place] [address] [address] 12/09/2024 1:00 PM EDT Appointment Cardiac Studies, [address] [address] 12/12/2024 10:30 AM EDT Nurse Only Wound Care, [address] [place] [address] [facility], Nurse Wound Care [address] [place], [place] [address] [address] 12/19/2024 10:30 AM EDT Nurse Only Wound Care, [facility] 400 [facility] [place] [address] [facility], Nurse Wound Care 400 [facility] [place] [address] 01/05/2025 10:40 AM EDT Office Visit Wound Care, [facility] 400 [place] [address] Yuriy Hilario MD [address] [place] [address] 01/06/2025 10:00 AM EDT Office Visit [facility]edics, [facility] [address] [place] [address] Franky Avitia PA-C 310 [address] [facility] [place] [address] 01/23/2025 10:09 AM EDT Hospital Encounter OR [facility], Operating Room, [facility] - 4th Floor 400 [facility] [address] Joel Truong MD [address] [place] [address] 01/23/2025 10:09 AM EDT - 01/23/2025 10:53 AM EDT Surgery OR [facility], Operating Room, [facility] - 4th Floor 400 [facility] JENNAARMBRUSTSANDEEP [place] [address] Joel Truong MD [address] [place] [address] COLONOSCOPY FLEXIBLE PROXIMAL DIAGNOSTIC 01/26/2025 3:30 PM EDT Office Visit Cardiology, [place] 400 [facility] [place] [address] eGovanna Patel PA-C 400 [facility] [place] [address] Scheduled Procedures Name Priority Associated Diagnoses Date/Ti [...] this encounter Medical Devices Implanted Type Area Pie Chef Device Identifier Shelf Expiration Date Model / Serial / Lot Device Perm Cntrl [id number] - [id number] Implanted:Qty: 2 on 09/27/2015 by Sharda Ruiz, Corey Rucker MD at OR [facility] Uterus [employer] 05/03/2017 [id number] / / [id number] documented as of this encounter Advance Directives [...] Power of Attor benoit? No Care Teams Supply Chain Business Analyst Relationship Specialty Start Date End Date Melissa Cruz PA-C [address] [place] [address] PCP - General Physician Drupal Developer 09/29/24 documented as of this encounter
--- OUTSIDE RECORDS SUMMARY | 2024-12-08 15:10 | External Medical Summary | Summary of Care ---
Author Name Unknown Organization [facility] Address [address] [place] [address] Phone [phone] Care Team Providers Care Weight Trainer Name Role Phone Melissa Cruz Chang AGUILAC Primary Care Provider +1- [phone] Reason for Visit * Reason Comments Follow Up BLE -- WOUNDS EDEMA -- Encounter Details Date Type Department Care Team (Late st Contact Info) Description 11/18/2024 11:20 AM EDT Office Visit Wound Care, [facility] [address] [place], [place] [id number] Yuriy Hilario MD [address] [place], [place] [id number] Multiple open wounds of lower leg, unspecified [...] (HEPLISAV-B) 09/16/2024 Pneumococcal Conjugate Vacci ne, 20-valent ([id number]) 12/04/2022 Pneumococcal Polysaccharide PPV23 (Pneumovax) 05/06/2011 Seasonal [...] 10:30 AM EDT Nurse Only Wound Care, [address] [place] [address] [facility], Nurse Wound Care [address] [place] [address] 11/25/2024 10:30 AM EDT Nurse Only Wound Care, [address] [place] [address] [facility], Nurse Wound Care [address] [place] [address], [place] [address] 11/27/2024 10:00 AM EDT Office Visit MANAGER QUALITY IMPROVEMENT Urology [address] [place] [address] Cem Mdarigal MD [address] [place] [address] [place] [address] 11/28/2024 10:30 AM EDT Nurse Only Wound Care, [address] [place] [address] [facility], Nurse Wound Care [address] [place] [address] 12/02/2024 9:00 AM EDT [facility] [address] [facility] [address] 12/02/2024 10:30 AM EDT Nurse Only Wound Care, [address] [address] [facility], Nurse Wound Care [address] [place] [address] 12/04/2024 1:20 PM EDT Office Visit [facility] [address] [place] [address] Melissa Cruz PA-C [address] [place] [address] 12/05/2024 10:30 AM EDT Nurse Only Wound Care, [address] [address] [facility], Nurse Wound Care [address] [place] [address] 12/09/2024 9:30 AM EDT [facility] [place] [address] Jordan Arrieta MD [address] [place] [address] [place] [address] 12/09/2024 10:30 AM EDT Nurse Only Wound Care, [address] [place] [address] [facility], Nurse Wound Care [address] [place] [address] 12/09/2024 1:00 PM EDT Appointment Cardiac Studies, [address] [place] [address] 12/12/2024 10:30 AM EDT Nurse Only Wound Care, [address] [place] [address] [facility], Nurse Wound Care [address] [place] [address] [place] [address] 12/19/2024 10:30 AM EDT Nurse Only Wound Care, [address] [place] [address] [facility], Nurse Wound Care [address] [place] [address] [place] [address] 01/05/2025 10:40 AM EDT Office Visit Wound Care, [address] [place] [address] Yuriy Hilario MD [address] [place] [address] 01/06/2025 10:00 AM EDT Office Visit Orthopaedics, [facility] [address] [place] [address] Franky Avitia PA-C 310 [facility] [place] [address] 01/23/2025 10:09 AM EDT Hospital Encounter OR [facility], Operating Room, [facility] - 4th Floor [address] [place] [address] Joel Truong MD [address] [place] [address] 01/23/2025 10:09 AM EDT - 01/23/2025 10:53 AM EDT Surgery OR [facility], Operating Room, [facility] - 4th Floor [address] [place] [address] Joel Truong MD [address] [place] [address] COLONOSCOPY FLEXIBLE PROXIMAL DIAGNOSTIC 01/26/2025 3:30 PM EDT Office Visit Cardiology, [place] [address] [place] [address] Geovanna Patel PA-C [address] [place] [address] Scheduled Procedures Name Priority Associated Diagnoses Date/Ti [...] this encounter Medical Devices Implanted Type Area Electroencephalograph Technician Device Identifier Shelf Expiration Date Model / Serial / Lot Device Perm Cntrl [id number] - [id number] Implanted:Qty: 2 on 09/27/2015 by Sharda Ruiz, Corey Rucker MD at OR [facility] Uterus [employer] 05/03/2017 [id number] / / [id number] documented as of this encounter Visit Diagnoses [...] Power of Attor benoit? No Care Teams Weight Trainer Relationship Specialty Start Date End Date Melissa Cruz, AYLAC [address] [place] [address] PCP - General Physician Java Web Services Developer 09/29/24 documented as of this encounter"
--- OUTSIDE RECORDS SUMMARY | 2024-12-08 15:10 | External Medical Summary | Summary of Care ---
Author Name Unknown Organization [facility] Address [address] [facility] [place] [address] Phone [phone] Care Team Providers Care Orthopedic Nurse Practitioner Name Role Phone Melissa Cruz Chang HOPKINS-C Primary Care Provider +1- [phone] Reason for Visit * Reason Comments NEW PATIENT * Evaluate & Treat - Unlimited Visits (Within 10 days (routine)) - Pending Review Specialty Diagnoses / Procedures Referred By Phylicia zambrano Referred To Contact GEOMETRICIAN - Urogynecology / Gynecology Urology Diagnoses Urinary urgency Dysuria Cyn Haynes MD [address] [place] [address] Phone: tel: fax: Referral ID Status Reason Start Date Expiration Date Visits Requested Visits Authorized [id number] Pending Review Specialty Services Required 09/16/[phone] Encounter Details Date Type Department Care Team (Late st Contact Info) Description 11/27/2024 10:00 AM EDT Office Visit TIMBER TREATING TANK OPERATOR Urology [place] [address] [address] Cem Madrigal MD [address] [place] [address] Urinary urgency*; Urge incontinence Allergies Active Allergy Reactions Criticality Noted Date Comments Aspirin 01/27/2014 Increased bleeding documented as of this encounter (statuses as of 11/27/2024) Medications traZODone (DESYREL) 50 MG Tablet Take [...] pain 60 Tablet 1 5 Active Tart Weber 1200 MG Oral Capsule Take 3,600 mg [...] as of this encounter (statuses as of 11/27/2024) Active Problems Problem Noted Date Diagnosed Date [...] as of this encounter (statuses as of 11/27/2024) Resolved Problems Problem Noted Date Diagnosed Date [...] as of this encounter (statuses as of 11/27/2024) Immunizations Name Administration Dates Next Due HEPATITIS B VACCINE, RECOMB, 20 MCG/ML, ADULT (HEPLISAV-B) 09/16/2024 Pneumococcal Conjugate Vacci ne, 20-valent ([id number]) 12/04/2022 Pneumococcal Polysaccharide PPV23 (Pneumovax) 05/06/2011 Seasonal [...] Sign Reading Time Taken Comments Blood Pressure 122/72 11/27/2024 10:02 AM EDT Pulse - - Temperature - - Respiratory Rate - - Oxygen Saturation - - Inhaled Oxygen Concentration - - Weight 159.2 kg (351 lb) 11/27/2024 10:02 AM EDT Height 149.9 cm (4' 11") 11/27/2024 10:02 AM EDT Body Mass Index 70.89 11/27/2024 10:02 AM EDT documented in this encounter Progress Notes * Cem Madrigal MD - 11/27/2024 9:51 AM EDT Mica Jimenez is a 49 year old female P 0 here for evaluation of urinary urgency Referred by Cyn Haynes MD. Mica Jimenez complains of urinary urgency with urge incontinence if she can't reach the restroom in time. She uses the restroom every 2-3 hours in the daytime. She limits fluids in the evenings and is able to sleep throughout the night without nocturia. But upon awakening in the morning, she will often have urge incontinence as she quickly tries to reach the restroom in time. She doesn't use pads. She also finds caffeinated beverages makes her symptoms worse. UA on 09/09/2024: RBC 6-9, Calcium Oxylate crystals Urine culture: Multiple preeti History of Kidney stones, percutaneous surgery at [facility], last seen by Urology in 2018, instructed to follow up PRN Patient takes Tumeric and Tart weber supplements Urinary: Leakage: urge Has leakage almost daily Wears pads: no She denies a sense of incomplete bladder emptying. Prior/current treatment include: limit caffeine, limit fluids in evenings UTI: denies Voiding detail: Daytime frequency: every 2-3 hours Urgency yes Nocturia:no Hesitancy no Straining no Hematuria no Postvoid dribbling no Postvoid urgency no Manual reduction no Drinks: cut out caffeine Prolapse: She denies a palpable bulge. GI: Bowel habits: normal bowel movement daily She denies fecal incontinence. Prior/ current treatments include: none Gynecologic history: endometrial ablation. Has menses every 2-3 months. Medical History: Patient Active Problem List Diagnosis Calculus of kidney Esophageal reflux Lumbago Right knee DJD Mild intermittent asthma without complication Severe episode of recurrent major depressive disorder, without psychotic features ([facility]) JORGE A (obstructive sleep apnea) Lymphedema LYNSEY (generalized anxiety disorder) PTSD (post-traumatic stress disorder) Neuropathy Bipolar disorder, current episode depressed, moderate ([facility]) Past Medical History: Diagnosis Date Anemia Asthma, severity to be determined Depressive disorder, not elsewhere classified Diverticulosis of colon GERD (gastroesophageal reflux disease) History of chickenpox History of pneumonia History of strep sore throat INFORMATION 2013 Other-accidental fall, episode of syncope, hit head, concussion Kidney stone Morbid obesity, BMI not known ([facility]) BMI >79 Patient sees Melissa Cruz PA-C as her primary care provider. Surgical History: Past Surgical History: Procedure Laterality Date DENTAL SURGERY PROCEDURE NEC wisdom teeth extraction HYSTEROSCOPY W/FALLOPIAN IMPLANTS Bilateral 09/27/2015 HYSTEROSCOPY SURGICAL BILATERAL FALLOPIAN TUBE performed by Corey Robin Jr., MD at OR [facility] HYSTEROSCOPY;ENDOMETRIAL ABLAT N/A 09/27/2015 HYSTEROSCOPY ENDOMETRIAL ABLATION performed by Corey Robin Jr., MD at OR [facility] HYSTEROSCOPY;ENDOMETRIAL ABLAT N/A 06/11/2017 HYSTEROSCOPY ENDOMETRIAL ABLATION performed by Corey Robin Jr., MD at OR [facility] REMOVAL OF KIDNEY STONE, OVER 2CM 1996 REMOVE GALLBLADDER 1997 OB History 0 Para Term 0 AB Living SAB IAB Ectopic Multiple Live Births Vaginal deliveries: 0 C/S: 0 Allergies: Review of patient's allergies indicates: Allergen Reactions Aspirin Increased bleeding Active Medications: Current Outpatient Medications Medication Sig Dispense Refill traZODone (DESYREL) 50 MG Tablet Take 1 Tab by mouth at bedtime as needed, may repeat once for Sleep. 30 Tab 0 Albuterol Sulfate HFA 108 (90 Base) MCG/ACT Inhalation Aerosol Solution 2 puffs every 4 hours as needed for shortness of breath/cough 18 g 2 Fluticasone Propionate 50 MCG/ACT Nasal Suspension (Flonase) SPRAY 2 SPRAYS INTO EACH NOSTRIL IN THE MORNING 16 mL 0 Omeprazole 20 MG Oral Capsule Delayed Release (PriLOSEC) TAKE 1 CAPSULE BY MOUTH EVERY DAY 90 Capsule 3 Ferrous Sulfate 28 MG Oral Tablet Take 1 Tablet by mouth every morning. busPIRone HCl 10 MG Oral Tablet (Buspar) Take 1 Tablet by mouth in the morning and 1 Tablet before bedtime. 30 Tablet 1 lamoTRIgine 100 MG Oral Tablet (LaMICtal) Take 1 Tablet by mouth in the morning and 1 Tablet beforebedtime. 30 Tablet 1 DULoxetine HCl 60 MG Oral Capsule Delayed Release Particles (Cymbalta) Take 1 Capsule by mouth in the morning. 15 Capsule 1 ARIPiprazole 15 MG Oral Tablet (Abilify) Take 1 Tablet by mouth at bedtime. 15 Tablet 1 Furosemide 40 MG Oral Tablet (Lasix) Take 1 Tablet by mouth daily as needed (edema). clonazePAM 1 MG Oral Tablet (KlonoPIN) Take 1 Tablet by mouth 2 times a day as needed for Anxiety. Montelukast Sodium 10 MG Oral Tablet (Singulair) Take 1 Tablet by mouth at bedtime. 90 Tablet 3 Cetirizine HCl 10 MG Oral Tablet (ZyrTEC) TAKE 1 TABLET BY MOUTH EVERY DAY 90 Tablet 1 Potassium Chloride ER 10 MEQ Oral Tablet Extended Release TAKE 1 TABLET BY MOUTH EVERY DAY IN THE MORNING 90 Tablet 1 Memantine HCl 5 MG Oral Tablet Take 5 mg once daily for 7 days, then increase to 5 mg twice daily until seen again. For pain 60 Tablet 1 Tart Weber 1200 MG Oral Capsule Take 3,600 mg by mouth once. Turmeric Complex/Black Pepper 5-1000 MG Oral Capsule (Black Pepper-Turmeric) Take 2 Capsules by mouth once. Vitamin D3 50 MCG (2000 UT) Oral Capsule TAKE 1 CAPSULE BY MOUTH EVERY DAY IN THE MORNING 90 Capsule 0 Pregabalin 150 MG Oral Capsule (Lyrica) Take 1 Capsule by mouth in the morning and 1 Capsule at noon and 1 Capsule before bedtime. 90 Capsule 2 No current facility-administered medications for this visit. Social History: Social History Socioeconomic History Marital status: Single Number of children: 0 Occupational History Occupation: disabled Tobacco Use Smoking status: Former Current packs/day: 0.00 Average packs/day: 1 pack/day for 5.0 years (5.0 ttl pk-yrs) Types: Cigarettes Start date: 06/06/2007 Quit date: 06/06/2012 Years since quittin.4 Passive exposure: Current Smokeless tobacco: Never Vaping Use Vaping status: Never Used Substance and Sexual Activity Alcohol use: Yes Alcohol/week: 1.0 standard drink of alcohol Types: 1 Mixed drink(s) containing 1.5 shots of alcohol per week Comment: rare Drug use: No Sexual activity: Not Currently Partners: Male control/protection: Condom, Surgical Comment: Essure Other Topics Concern Weight Concern Yes Social History Narrative Disabled - chronic back problems, depression Social Needs Financial Resource Strain: Low Risk (09/16/2024) Financial Resource Strain Do you have any trouble paying for your medications, or do you think you might in the future? (Adult - for ages 18 years and over): No Food Insecurity: No Food Insecurity (09/16/2024) Food Insecurity Worried About Running Out of Food in the Last Year: Never true Ran Out of Food in the Last Year: Never true Do you need food for this week? (Adult - for ages 18 years and over): No Transportation Needs: No Transportation Needs (09/16/2024) Transportation Needs Has lack of transportation kept you from medical appointments, meetings, work, or from getting things needed for daily living? Check all that apply. (Adult - for ages 18 years and over): No Social Connections: Socially Integrated (09/16/2024) Social Connections How often do you feel lonely or isolated from those around you? (Adult - for ages 18 years and over): Never Housing Stability: Low Risk (09/16/2024) Housing Stability Do you currently live in a fci or have no steady place to sleep at night? (Adult - for ages 18 years and over): No Are you homeless or worried that you might be in the future? (Adult - for ages 18 years and over): No Family History: Family History Problem Relation Name Age of Onset Heart Disorder Mother CAD Lung Disorder Mother COPD - former smoker Cancer Mother cervical Lung Disorder Father Emphysema - age 65 - smoker Mental Disorder Brother depression Equity Manager Documentation: Provider requested clipman Name of Equity Manager: Darcie Herman Blood pressure 122/72, height 1.499 m (4' 11"), weight (!) 159.2 kg (351 lb), last menstrual [id number]/20/2024, not currently . Blood pressure %jh are not available for patients who are 18 years or older. Body mass index is 70.89 kg/m². EXAM: Well developed well nourished female in no apparent distress. Alert oriented x3 HEENT: NC AT HEART: Normal peripheral pulse, edema positive THYROID: no obvious neck mass LUNG: No increased respiratory effort ABDOMEN: Soft, NT, ND, no masses PELVIC EXAM: Ext. Gen: Normal external female genitalia, no vulvar lesions. Clitoris, labia, minor vestibular glands and urethral meatus appear normal. Urethra and bladder palpated non-tender with no masses and no expressible exudate. Vagina adequately estrogenized without lesions. Cervix: nl BIMANUAL EXAM: No adnexal masses or tenderness elicited, limited by body habitus REGIONAL RETAIL SALES MANAGER: neg Levator ani muscle strength 4. No tenderness elicited on palpation Rectovaginal exam: perianal area normal, anus normal, digital rectal exam deferred No prolapse The following data points/ labs were reviewed: Results for orders placed or performed in visit on 09/16/24 URINALYSIS, POINT OF CARE Result Value Ref Range Color, Urine Turner (A) Light Yellow, Yellow Clarity, Urine Clear Clear Glucose, Urine Negative Negative mg/dL Bilirubin, Urine Negative Negative Ketone, Urine Negative Negative mg/dL Specific Vona, Urine >=1.030 1.003 - 1.030 Blood, Urine Negative Negative pH, Urine 5.5 5.0, 5.5, 6.0, 6.5, 7.0, 7.5 units Protein, Urine Negative Negative mg/dL Urobilinogen, Urine 1.0 0.2, 1.0 mg/dL Nitrite, Urine Negative Negative Esterase, Urine Negative Negative PVR: 24 ml via bladder scan Impression: This is a 49 year old with: Urinary urgency (Primary) Urge incontinence We reviewed OAB and urge incontinence. We discussed limiting bladder irritants in the diet (Caffeine, acids, tart weber, etc), daily Kegel exercises, and OAB medications. Oxybutynin ER 5 mg prescribed. Side effects, risks,benefits, and alternatives reviewed. I explained that she had calcium oxylate crystals in her urine which can irritate the bladder causeirritative urinary symptoms and could cause kidney stones, Highly recommended increasing water intake. If crystals continue or microscopic hematuria, I recommended that she follow up with Urology. All questions answered. Follow up in 6 weeks. Cme Madrigal MD 11/27/2024 9:51 AM I spent a total of 55 minutes on the date of service in preparation, delivery, and documentation ofthe care provided to Mica Jimenez excluding any time spent in the performance of separately billed services. documented in this encounter Nursing Notes * Darcie Herman LPN - 11/27/2024 9:59 AM EDT Pt presents to clinic as a new pt No c/o burning with urination Urgency- sometimes not making it Frequency- Q3H- more with caffeine but trying to cut back Nocturia- 0-1x- if in bed longer than 6hrs- leaking with urgency sometimes first thing in morning with full bladder loss JOSE- small amount Concerns about urine being dark in color. Taking Tumeric and tart weber supplements Unsure if has prolapse or not Having to double void with each void to feel like emptying completely PVR- 24 documented in this encounter Plan of Treatment Upcoming Encounters Date Type Department Care Team (Late st Contact Info) Description 11/28/2024 10:30 AM EDT Nurse Only Wound Care, [facility] [address] [place] [address] [facility], Nurse Wound Care [address] [facility] [place] [address] 12/02/2024 9:00 AM EDT Telemedicine Pharmacy, [place] [address] [place] [address] [facility] 21 [facility] [place] [address] 12/02/2024 10:30 AM EDT Nurse Only Wound Care, [address] [place] [address] [place], Nurse Wound Care [address] [place] [address] 12/04/2024 1:20 PM EDT Office Visit [facility] [address] [place] [address] Melissa Cruz PA-C [address] [place] [address] 12/05/2024 10:30 AM EDT Nurse Only Wound Care, [address] [address] [facility], Nurse Wound Care [address] [place] [address] 12/09/2024 9:30 AM EDT [facility] [address] Jordan Arrieta MD [address] [place] [address] 12/09/2024 10:30 AM EDT Nurse Only Wound Care, [address] [place] [address] [facility], Nurse Wound Care [address] [place] [address] 12/09/2024 1:00 PM EDT Appointment Cardiac Studies, [address] [place] [address] 12/12/2024 10:30 AM EDT Nurse Only Wound Care, [address] [place] [address] [facility], Nurse Wound Care [address] [place] [address] [place] [address] 12/15/2024 10:30 AM EDT Nurse Only Wound Care, [address] [place] [address] [facility], Nurse Wound Care [address] [place] [address] 12/19/2024 10:30 AM EDT Nurse Only Wound Care, [address] [place] [address] [facility], Nurse Wound Care 400 [facility] [place] [address] 01/05/2025 10:40 AM EDT Office Visit Wound Care, [address] [place] [address] Yuriy Hilario MD [address] [place] [address] 01/06/2025 10:00 AM EDT Office Visit Orthopaedics, [facility] [address] [facility] Juan [address] [place] [address] Franky Avitia PA-C [address] [place] [address] 01/23/2025 10:09 AM EDT Hospital Encounter OR [facility], Operating Room, [facility] - 4th Floor [address] [place] [phone] Joel Truong MD [address] [place] [address] 01/23/2025 10:09 AM EDT - 01/23/2025 10:53 AM EDT Surgery OR [facility], Operating Room, [facility] - 4th Floor [address] [place] [phone] Joel Truong MD [address] [place] [address] COLONOSCOPY FLEXIBLE PROXIMAL DIAGNOSTIC 01/26/2025 3:30 PM EDT Office Visit Cardiology[address] [place] [address] Geovanna Patel PA-C [address] [place] [address] 02/19/2025 11:20 AM EDT Office Visit TIMBER TREATING TANK OPERATOR Urology [address], [place] [address] [place] [address] Cem Madrigal MD [address] [place] [address] Scheduled Procedures Name Priority Associated Diagnoses Date/Ti [...] this encounter Medical Devices Implanted Type Area Water Resources Program Director Device Identifier Shelf Expiration Date Model / Serial / Lot Device Perm Cntrl [id number] - [id number] Implanted:Qty: 2 on 09/27/2015 by Sharda Ruiz, Corey Rucker MD at OR [facility] Uterus [employer] 05/03/2017 [id number] / / [id number] documented as of this encounter Visit Diagnoses Diagnosis Urinary urgency- Primary Urgency of urination Urge incontinence Screening for colon cancer Special screening for [...] Power of Attor benoit? No Care Teams Orthopedic Nurse Practitioner Relationship Specialty Start Date End Date Melissa Cruz PA-C [address] [place] [address] PCP - General Physician Traveling Electrician 09/29/24 documented as of this encounter
--- OUTSIDE RECORDS SUMMARY | 2024-12-08 15:10 | External Medical Summary | Summary of Care ---
Author Name Unknown Organization [facility] Address [address] [place] [address] Phone [phone] Care Team Providers Care Photoresist Contact Printer Name Role Phone CarylTy mansfieldanthony Downing PA-C Primary Care Provider +1- [phone] Reason for Visit * Reason Onset Date Comments Appointment 11/20/2024 Wound Nurse Appo intment Encounter Details Date Type Department Care Team (Late st Contact Info) Description 11/20/2024 Telephone [facility] [address] [place], [place] [id number] Care, Nurse Wound [address] [place] [address] Appointment (Wound Nurse Appointment) Allergies Active Allergy Reactions Criticality Noted Date Comments Aspirin 01/27/2014 Increased bleeding documented as of this encounter (statuses as of 11/20/2024) Medications traZODone (DESYREL) 50 MG Tablet Take [...] as of this encounter (statuses as of 11/20/2024) Active Problems Problem Noted Date Diagnosed Date [...] as of this encounter (statuses as of 11/20/2024) Resolved Problems Problem Noted Date Diagnosed Date [...] as of this encounter (statuses as of 11/20/2024) Immunizations Name Administration Dates Next Due HEPATITIS B VACCINE, RECOMB, 20 MCG/ML, ADULT (HEPLISAV-B) 09/16/2024 Pneumococcal Conjugate Vacci ne, 20-valent ([id number]) 12/04/2022 Pneumococcal Polysaccharide PPV23 (Pneumovax) 05/06/2011 Seasonal [...] No 09/16/2024 Does the household have a [facility] hospitall[facility] source of income? (Household - for [...] 10:30 AM EDT Nurse Only Wound Care, [address] [address] [facility], Nurse Wound Care [address] [place] [address] [place] [address] 11/27/2024 10:00 AM EDT Office Visit COORDINATOR INTEGRATED MARKETING Urology [address] [place] [address] Cem Madrigal MD 132 [facility] [place] [address] 11/28/2024 10:30 AM EDT Nurse Only Wound Care, [address] [place] [address] [facility], Nurse Wound Care [address] [place] [address] [place] [address] 12/02/2024 9:00 AM EDT Telemedicine Pharmacy, [address] [place] [address] [facility] [place] [address] 12/02/2024 10:30 AM EDT Nurse Only Wound Care, [address] [address] [facility], Nurse Wound Care [address] [place], [place] [address]S[place] [address] 12/04/2024 1:20 PM EDT Office Visit [facility] [address] [place] [address] Melissa Cruz PA-C [address] [place] [address] 12/05/2024 10:30 AM EDT Nurse Only Wound Care, [address] [address] [facility], Nurse Wound Care [address] [place], [place] [address]S[place] [address] 12/09/2024 9:30 AM EDT [facility] 126 [place] [address] Jordan Arrieta MD 126 [place] [address] 12/09/2024 10:30 AM EDT Nurse Only Wound Care, [address] [address] [facility], Nurse Wound Care [address] [place], [place] [address]S[place] [address] 12/09/2024 1:00 PM EDT Appointment Cardiac Studies, [address] [place] [address] 12/12/2024 10:30 AM EDT Nurse Only Wound Care, [address] [address] [facility], Nurse Wound Care [address] [place], [place] [address]S[place] [address] 12/15/2024 10:30 AM EDT Nurse Only Wound Care, [address] [place] [address] [facility], Nurse Wound Care [address] [place] [address] 12/19/2024 10:30 AM EDT Nurse Only Wound Care, [address] [place] [address] [facility], Nurse Wound Care [address] [place] [address] 01/05/2025 10:40 AM EDT Office Visit Wound Care, [address] [place] [address] Yuriy Hilario MD [address] [place] [address] 01/06/2025 10:00 AM EDT Office Visit Orthopaedics, Electric [facility] [address] [place] [address] [place] [address] Franky Avitia PA-C [address] [place] [address] 01/23/2025 10:09 AM EDT Hospital Encounter OR [facility], Operating Room, [facility] - 4th Floor [address] [place] [phone] Joel Truong MD [address] [place] [address] 01/23/2025 10:09 AM EDT - 01/23/2025 10:53 AM EDT Surgery OR [facility], Operating Room, [facility] - 4th Floor 400 [place] [address] Joel Truong MD [address] [place] [address] COLONOSCOPY FLEXIBLE PROXIMAL DIAGNOSTIC 01/26/2025 3:30 PM EDT Office Visit Cardiology, [place] [address] [place] [address] Geovanna Patel PA-C [address] [place] [address] Scheduled Procedures Name Priority Associated Diagnoses Date/Ti [...] this encounter Medical Devices Implanted Type Area Opto Mechanical Engineer Device Identifier Shelf Expiration Date Model / Serial / Lot Device Perm Cntrl [id number] - [id number] Implanted:Qty: 2 on 09/27/2015 by Sharda Ruiz, Corey Rucker MD at OR [facility] Uterus [employer] 05/03/2017 [id number] / / [id number] documented as of this encounter Advance Directives [...] Power of Attor benoit? No Care Teams Photoresist Contact Printer Relationship Specialty Start Date End Date Melissa Cruz PA-C [address] [place] [phone] PCP - General Physician Diabetes Physician 09/29/24 documented as of this encounter
--- OUTSIDE RECORDS SUMMARY | 2024-12-08 15:10 | External Medical Summary | Summary of Care ---
Author Name Unknown Organization [facility] Address [address] [facility] [place] [address] Phone [phone] Care Team Providers Care Link Trainer Maintenance Worker Name Role Phone Melissa Cruz Chang HOPKINS-C Primary Care Provider +1- [phone] Reason for Visit * Reason Comments NEW PATIENT * Evaluate & Treat - Unlimited Visits (Within 10 days (routine)) - Pending Review Specialty Diagnoses / Procedures Referred By Phylicia zambrano Referred To Contact MANAGER CARGO - Urogynecology / Gynecology Urology Diagnoses Urinary urgency Dysuria Cyn Haynes MD [address] [place] [address] Phone: tel: fax: Referral ID Status Reason Start Date Expiration Date Visits Requested Visits Authorized [id number] Pending Review Specialty Services Required 09/16/[phone] Encounter Details Date Type Department Care Team (Late st Contact Info) Description 11/27/2024 10:00 AM EDT Office Visit PROJECT BUILDER Urology [place] [address] [place] [address] Cme Madrigal MD [address] [place] [address] Urinary urgency*; Urge incontinence Allergies Active Allergy [...] (HEPLISAV-B) 09/16/2024 Pneumococcal Conjugate Vacci ne, 20-valent ([id number]) 12/04/2022 Pneumococcal Polysaccharide PPV23 (Pneumovax) 05/06/2011 Seasonal [...] History of Kidney stones, percutaneous surgery at [facility], last seen by Urology in 2018, instructed [...] depressive disorder, without psychotic features ([facility]) JORGE A (obstructive sleep apnea) Lymphedema LYNSEY (generalized anxiety disorder) PTSD (post-traumatic stress disorder) Neuropathy Bipolar disorder, current episode depressed, moderate ([facility]) Past Medical History: Diagnosis Date Anemia Asthma, severity to be determined Depressive disorder, not elsewhere classified Diverticulosis of colon GERD (gastroesophageal reflux disease) History of chickenpox History of pneumonia History of strep sore throat INFORMATION 2013 Other-accidental fall, episode of syncope, hit head, concussion Kidney stone Morbid obesity, BMI not known ([facility]) BMI >79 Patient sees Melissa Cruz PA-C as her primary care provider. Surgical History: Past Surgical History: Procedure Laterality Date DENTAL SURGERY PROCEDURE NEC wisdom teeth extraction HYSTEROSCOPY W/FALLOPIAN IMPLANTS Bilateral 09/27/2015 HYSTEROSCOPY SURGICAL BILATERAL FALLOPIAN TUBE performed by Corey Robin Jr., MD at OR [facility] HYSTEROSCOPY;ENDOMETRIAL ABLAT N/A 09/27/2015 HYSTEROSCOPY ENDOMETRIAL ABLATION performed by Corey Robin Jr., MD at OR [facility] HYSTEROSCOPY;ENDOMETRIAL ABLAT N/A 06/11/2017 HYSTEROSCOPY ENDOMETRIAL ABLATION performed by Corey Robin Jr., MD at OR [facility] REMOVAL OF KIDNEY STONE, OVER [...] Stability Do you currently live in a penitentiary or have no steady place to sleep [...] 66 - smoker Mental Disorder Brother depression Radiation Oncologist Documentation: Provider requested exhibition organiser Name of Radiation Oncologist: Darcie Herman Blood pressure 122/72, height 1.499 m (4' 11"), weight (!) 159.2 kg (351 lb), last menstrual ypaagt5011/20/2024, not currently . Blood pressure %jh are [...] or tenderness elicited, limited by body habitus MANAGER PAYROLL: neg Levator ani muscle strength 4. No tenderness elicited on palpation Rectovaginal exam: perianal area normal, anus normal, digital rectal exam deferred No prolapse The following data points/ labs were reviewed: Results for orders placed or performed in visit on 09/16/24 URINALYSIS, POINT OF CARE Result Value Ref Range Color, Urine [place] (A) Light Yellow, Yellow Clarity, Urine Clear Clear Glucose, Urine Negative Negative mg/dL Bilirubin, Urine Negative Negative Ketone, Urine Negative Negative mg/dL Specific Four [place], Urine >=1.030 1.003 - 1.030 Blood, Urine [...] questions answered. Follow up in 6 weeks. Cem Madrigal MD 11/27/2024 9:51 AM I spent [...] 10:30 AM EDT Nurse Only Wound Care, [facility] [address] [place] [address] [facility], Nurse Wound Care 400 [facility] [place] [address] 12/02/2024 9:00 AM EDT Telemedicine Pharmacy, [place] [address] [place] [address] [facility] 21 [facility] [place] [address] 12/02/2024 10:30 AM EDT Nurse Only Wound Care, [address] [place] [address] Gl, Nurse Wound Care [address] [place] [address] 12/04/2024 1:20 PM EDT [facility] [address] [place] [address] Melissa Cruz PA-C [address] [place] [address] 12/05/2024 10:30 AM EDT Nurse Only Wound Care, [address] [address] [facility], Nurse Wound Care [address] [place] [address] 12/09/2024 9:30 AM EDT Telemedicine [facility] [address] Jordan Arrieta MD [address] [place] [address] 12/09/2024 10:30 AM EDT Nurse Only Wound Care, [address] [place] [address] [facility], Nurse Wound Care [address] [place] [address] 12/09/2024 1:00 PM EDT Appointment Cardiac Studies, [address] [place] [address] 12/12/2024 10:30 AM EDT Nurse Only Wound Care, [address] [place] [address] [facility], Nurse Wound Care [address] [place] [address] [place] [address] 12/15/2024 10:30 AM EDT Nurse Only Wound Care, [address] [place] [address] [facility], Nurse Wound Care [address] [place] [address] 12/19/2024 10:30 AM EDT Nurse Only Wound Care, [address] [place] [address] [facility], Nurse Wound Care 400 [place] [address] 01/05/2025 10:40 AM EDT Office Visit Wound Care, [address] [place] [address] Yuriy Hilario MD [address] [place] [address] 01/06/2025 10:00 AM EDT Office Visit Orthopaedics, [facility] [address] [facility] Juan Carlos [address] [place] [address] Franky Avitia PA-C [address] [place] [address] 01/23/2025 10:09 AM EDT Hospital Encounter OR [facility], Operating Room, [facility] - 4th Floor [address] [place] [phone] Joel Truong MD [address] [facility] [place] [address] 01/23/2025 10:09 AM EDT - 01/23/2025 10:53 AM EDT Surgery OR [facility], Operating Room, [facility] - 4th Floor [address] [place] [phone] Joel Truong MD [address] [place] [address] COLONOSCOPY FLEXIBLE PROXIMAL DIAGNOSTIC 01/26/2025 3:30 PM EDT Office Visit Cardiology[address] [place] [address] Geovanna Patel PA-C [address] [place] [address] 02/19/2025 11:20 AM EDT Office Visit PROJECT BUILDER Urology [address], [place] [address] [place] [address] Cem Madrigal MD [address] [place] [address] Scheduled Procedures Name Priority Associated Diagnoses Date/Ti [...] this encounter Medical Devices Implanted Type Area Director Of Pediatric Rehabilitation Device Identifier Shelf Expiration Date Model / Serial / Lot Device Perm Cntrl [id number] - [id number] Implanted:Qty: 2 on 09/27/2015 by Sharda Ruiz, Corey Rucker MD at OR [facility] Uterus [employer] 05/03/2017 [id number] / / [id number] documented as of this encounter Visit Diagnoses [...] Power of Attor benoit? No Care Teams Link Trainer Maintenance Worker Relationship Specialty Start Date End Date Melissa Cruz PA-C [address] [place] [address] PCP - General Physician Finishing And Shipping Supervisor 09/29/24 documented as of this encounter
--- OUTSIDE RECORDS SUMMARY | 2024-12-08 15:11 | External Medical Summary | Summary of Care ---
Author Name Unknown Organization [facility] Address [address] [place] [address] Phone [phone] Care Team Providers Care Quarrying Specialist Name Role Phone Melissa Wilkins PA-C Primary Care Provider +1- [phone] Reason for Visit * Reason Onset Date Comments Medication Refill 11/17/2024 Encounter Details Date Type Department Care Team (Late st Contact Info) Description 11/17/2024 Refill [facility] [address] [place] [address] Melissa Wilkins PA-C [address] [place] [address] Neuropathy Allergies Active Allergy Reactions Criticality Noted Date Comments Aspirin 01/27/2014 Increased bleeding documented as of this encounter (statuses as of 11/17/2024) Medications traZODone (DESYREL) 50 MG Tablet Take [...] Vitamin D3 50 MCG (1999 UT) Oral CapsuleIndicatio ns:Vitamin D deficiency TAKE 1 CAPSULE BY MOUTH EVERY DAY IN THE MORNING 90 Capsule 5 Active Pregabalin 150 MG Oral Capsule (Lyrica)Indicati ons:Neuropathy Take 1 Capsule by mouth in the morning and 1 Capsule at noon and 1 Capsule before bedtime. 90 Capsule 2 5 Active Pregabalin 150 MG Oral Capsule (Lyrica)Indicati ons:Neuropathy Take 1 Capsule by mouth in the morning and 1 Capsule at noon and 1 Capsule before bedtime. 90 Capsule 5 11/18/19 25 Discontin ued(Refil l) documented as of this encounter (statuses as of 11/17/2024) Active Problems Problem Noted Date Diagnosed Date [...] as of this encounter (statuses as of 11/17/2024) Resolved Problems Problem Noted Date Diagnosed Date [...] as of this encounter (statuses as of 11/17/2024) Immunizations Name Administration Dates Next Due HEPATITIS B VACCINE, RECOMB, 20 MCG/ML, ADULT (HEPLISAV-B) 09/16/2024 Pneumococcal Conjugate Vacci ne, 20-valent ([id number]) 12/04/2022 Pneumococcal Polysaccharide PPV23 (Pneumovax) 05/06/2011 Seasonal [...] Telephone Encounter - Melissa Wilkins PA-C - 11/17/2024 12:56 PM EDTSigned Prescriptions: Disp Refills Pregabalin 150 MG Oral Capsule (Lyrica) 90 Cap*2 Sig: Take 1 Capsule by mouth in the morning and 1 Capsule at noon and 1 Capsule before bedtime. Authorizing Provider: MELISSA WILKINS * Telephone Encounter - Nelsy Ngo [facility] - 11/17/2024 11:40 AM EDTPending Prescriptions: Disp Refills Pregabalin 150 MG Oral Capsule (Lyrica) 90 Cap*0 Sig: Take 1 Capsule by mouth in the morning and 1 Capsule at noon and 1 Capsule before bedtime. * Telephone Encounter - Nelsy Ngo [facility] - 11/17/2024 11:39 AM EDT I have reviewed the patient’s controlled substance dispensing history in the Prescription Drug Monitoring Program in compliance with the [facility] regulations before prescribing a controlled substance. PDMP checked on 11/17/2024. Pending Prescriptions: Disp Refills Pregabalin 150 MG Oral Capsule (Lyrica) 90 Cap*0 Sig: Take 1 Capsule by mouth in the morning and 1 Capsule at noon and 1 Capsule before bedtime. Last Visit: 09/16/2024 (in office), Visit date not found (telemedicine) Next Visit: 11/17/2024 Date medication was last filled: 09/10/24 Date medication is due for refill: 10/09/24 Pharmacy: [id number] [place] [address] Is this request for a controlled substance? Yes and Urine Drug Screen was completed Toxicology results: Results for orders placed or performed in [...] purposes. Confirmatory testing is available upon request. Please approve if appropriate. Thank You, Nelsy Ngo [facility] Clinical Pharmacist [facility] ([facility]) [phone] 11/17/2024, 11:40 AM * Telephone Encounter - Saba Barraza, physician in private practice - 11/17/2024 11:11 AM EDT Patient requesting high priority states she is almost out of medication Did you pend patient's preferred pharmacy and medication before forwarding?yes Pharmacy: [facility] [address] [place], [place] [address] Pending Prescriptions: Disp Refills Pregabalin 150 MG Oral Capsule (Lyrica) 90 Cap*0 Sig: Take 1 Capsule by mouth in the morning and 1 Capsule at noon and 1 Capsule before bedtime. Last Visit: 09/16/2024 (in office), Visit date not found (telemedicine) Next Visit: 11/17/2024 If no future appointments scheduled, and last appointment is greater than a year ago, please schedule patient for a follow-up appointment Last date the medication was ordered: 09/08/2024 Is this request for a controlled substance?Yes, What was the last refill date 09/08/2024 w/ quantity 90 and dosage 150 mg and Urine Drug [...] 11:20 AM EDT Office Visit Wound Care, [facility] [address] [place] [address] Yuriy Hilario MD [address] [place] [address] 11/19/2024 11:00 AM EDT Office Visit Orthopaedics, Electric [facility] [address] [place] [address] Wilian Augustin DO [address] [place] [id number] 11/27/2024 10:00 AM EDT Office Visit PROMOTIONS REPRESENTATIVE Urology [facility] [address] [place] [address] Cem Madrigal MD [address] [place] [address] 12/02/2024 9:00 AM EDT Telemedicine Pharmacy, [place] [address] [place] [address] [place] [facility] [address] [place] [address] 12/04/2024 1:20 PM EDT Office Visit [facility] [address] [place] [address] Melissa Wilkins PA-C [address] [place] [address] 12/09/2024 9:30 AM EDT [facility] 126 [facility] [place] [address] Jordan Arrieta MD [address] [facility] [place] [address] 12/09/2024 1:00 PM EDT Appointment Cardiac Studies, [facility] [address] [place] [address] 01/23/2025 10:09 AM EDT Hospital Encounter OR [facility], Operating Room, [facility] - 4th Floor [address] [place] [address] Joel Truong MD [address] [place] [address] 01/23/2025 10:09 AM EDT - 01/23/2025 10:53 AM EDT Surgery OR [facility], Operating Room, [facility] - 4th Floor [address] [place] [address] Joel Truong MD [address] [place] [address] COLONOSCOPY FLEXIBLE PROXIMAL DIAGNOSTIC 01/26/2025 3:30 PM EDT Office Visit Cardiology, [place] [address] [place] [address] Geovanna Patel PA-C [address] [place] [address] Scheduled Procedures Name Priority Associated Diagnoses Date/Ti [...] this encounter Medical Devices Implanted Type Area Carpenter Streetcar Device Identifier Shelf Expiration Date Model / Serial / Lot Device Perm Cntrl [id number] - [id number] Implanted:Qty: 2 on 09/27/2015 by Sharda Ruiz, Corey Rucker MD at OR [facility] Uterus [employer] 05/03/2017 [id number] / / [id number] documented as of this encounter Visit Diagnoses [...] Power of Attor benoit? No Care Teams Quarrying Specialist Relationship Specialty Start Date End Date Melissa Wilkins PA-C [address] [place] [address] PCP - General Physician Soil Analyst 09/29/24 documented as of this encounter
--- OUTSIDE RECORDS SUMMARY | 2024-12-08 15:11 | External Medical Summary | Summary of Care ---
Author Name Unknown Organization [facility] Address [address] [place] [address] Phone [phone] Care Team Providers Care Digital Archivist Name Role Phone CarylTy mansfieldanthony Downing PA-C Primary Care Provider +1- [phone] Reason for Visit * Reason Comments Wound Care BLE -- WOUNDS -- DAXA MA Encounter Details Date Type Department Care Team (Late st Contact Info) Description 11/14/2024 10:30 AM EDT Nurse Only Wound Care, [facility] [address] [place] [address] [facility], Nurse Wound Care [address] [place] [address] Wound Care (BLE -- WOUNDS -- EDEMA ) Allergies Active Allergy Reactions Criticality Noted Date Comments Aspirin 01/27/2014 Increased bleeding documented as of this encounter (statuses as of 11/14/2024) Medications traZODone (DESYREL) 50 MG Tablet Take [...] THE MORNING 90 Tablet 1 5 Active Pregabalin 150 MG Oral Capsule (Lyrica)Indicatio ns:Neuropathy Take 1 Capsule by mouth in the morning and 1 Capsule at noon and 1 Capsule before bedtime. 90 Capsule Active Memantine HCl 5 MG Oral Tablet [...] IN THE MORNING 90 Capsule 5 Active documented as of this encounter (statuses as of 11/14/2024) Active Problems Problem Noted Date Diagnosed Date [...] as of this encounter (statuses as of 11/14/2024) Resolved Problems Problem Noted Date Diagnosed Date [...] as of this encounter (statuses as of 11/14/2024) Immunizations Name Administration Dates Next Due HEPATITIS B VACCINE, RECOMB, 20 MCG/ML, ADULT (HEPLISAV-B) 09/16/2024 Pneumococcal Conjugate Vacci ne, 20-valent ([id number]) 12/04/2022 Pneumococcal Polysaccharide PPV23 (Pneumovax) 05/06/2011 Seasonal [...] No 09/16/2024 Does the household have a [facility] source of income? (Household [...] Patient Instructions * Patient Instructions* Megha López', GARAGEMAN - 11/14/2024 10:37 AM EDT Discharge Instructions: Unna Boot You [...] Nursing Notes * Megha López LPN - 11/14/2024 10:34 AM EDT Assisted to sit safely on exam seating from w/c -- aware to not rise unassisted for her safety. Care this date will be provided by this ELIZA and MagenP.Thao BETTS. Mica presented with no dressings in place today stated just took dressings off this AM and knowing she was coming here did not reapply. Wounds then legs / feet washed with soap and water -- Spoke with Mica in regards to using Opticel gentle sponge directly on wounds as product directs to do. Wounds seem to be at a stand still and to just trial this until seen by provider on Sunday. She was in agreeable to do. Photo and measurements taken of left medial leg wound. Then applied dressings as follows. N.P - ALPESH provided care to LLE -- This GARAGEMAN TO RLE LLE -- Optocel applied to wound then ABD to cover as well as to Buttress tissue folds as required. This secured with Kerlix then Unna Boot applied Covered with Surgilast 7. RLE -- Calmoseptine to jael wound tissue then Vaseline to wound beds -- Opticel gentle foam pad --ABD pads secured in place with Kerlix noted ABD pads to buttress tissue folds as well to this leg -- Unna Boot then Surgilast 7 --BLE --Socks and shoes then assisted to w/c and propelled to check out. Provided review of all unna boot compression as well -- see patient education for details of this . documented in this encounter Plan of Treatment Upcoming Encounters Date Type Department Care Team (Late st Contact Info) Description 11/17/2024 2:00 PM EDT Office Visit [address] [place] [address] [place] Coleman CRNP [address] [place] [address] 11/18/2024 11:20 AM EDT Office Visit Wound Care, [facility] 400 [place] [address] Yuriy Hilario MD [address] [place] [address] 11/19/2024 11:00 AM EDT Office Visit Orthopaedics, [facility] [address] [facility] Juan Carlos [address] [place] [address] Wilian Augustin DO [address] [place] [address] 11/27/2024 10:00 AM EDT Office Visit BUILDING INSPECTION ENGINEER Urology [facility] 400 [place] [address] Cem Madrigal MD [address] [place] [address] 12/02/2024 9:00 AM EDT [facility] 21 [place] [address] [facility] 21 [place] [address] 12/04/2024 1:20 PM EDT [facility] [address] [place] [phone] Melissa Cruz PA-C [address] [place] [phone] 12/09/2024 9:30 AM EDT [facility] [place] [address] Jordan Arrieta MD [address] [place] [address] 12/09/2024 1:00 PM EDT Appointment Cardiac Studies, [facility] 400 [facility] [place] [address] 01/23/2025 10:09 AM EDT Hospital Encounter OR [facility], Operating Room, [facility] - 4th Floor 400 [facility] [place] [address] Joel Truong MD [address] [place] [address] 01/23/2025 10:09 AM EDT - 01/23/2025 10:53 AM EDT Surgery OR [facility], Operating Room, [facility] - 4th Floor 400 [facility] [place] [address] Joel Truong MD [address] [place] [address] COLONOSCOPY FLEXIBLE PROXIMAL DIAGNOSTIC 01/26/2025 3:30 PM EDT Office Visit Cardiology, [place] 400 [facility] [place] [address] Geovanna Patel PA-C 400 [place] [address] Scheduled Orders Name Type Priority Associated Diagnoses Orde r Schedule UNNA BOOT (NURSE APPLY) Procedures Routine Multiple open wounds of lower leg, unspecified laterality, subsequent encounter Lymphedema Type 2 diabetes mellitus with hemoglobin A1c goal of less than 7.0% ([facility]) Class 3 severe obesity due to excess calories with serious comorbidity and body mass index (BMI) greater than or equal to 70 in adult ([facility]) Irritant contact dermatitis due to other body fluid Multiple open wounds of lower leg, unspecified laterality, initial encounter Every Week for 4 Occurrences starting 11/14/2024 until 12/24/2024 Scheduled Procedures Name Priority Associated Diagnoses Date/Ti [...] this encounter Medical Devices Implanted Type Area Refrigerator Repairman Device Identifier Shelf Expiration Date Model / Serial / Lot Device Perm Cntrl [id number] - [id number] Implanted:Qty: 2 on 09/27/2015 by Corey Robin Jr., MD at OR [facility] Uterus [employer] 05/03/2017 [id number] / / [id number] documented as of this encounter Visit Diagnoses [...] Power of Attor benoit? No Care Teams Digital Archivist Relationship Specialty Start Date End Date Melissa Cruz PA-C [address] [place] [address] PCP - General Physician Drill Bit Sharpener 09/29/24 documented as of this encounter
--- OUTSIDE RECORDS SUMMARY | 2024-12-08 15:11 | External Medical Summary | Summary of Care ---
Author Name Unknown Organization [facility] Address [address] [place] [address] Phone [phone] Care Team Providers Care Dining Room Helper Name Role Phone Melissa Cruz Chang FONSECA Primary Care Provider +1- [phone] Reason for Visit * Reason Comments Wound Care Encounter Details Date Type Department Care Team (Late st Contact Info) Description 11/11/2024 10:30 AM EDT Nurse Only Wound Care, [facility] [address] [place], [place] [id number] [facility], Nurse Wound Care [address] [place] [address] Wound Care Allergies Active Allergy Reactions Criticality Noted Date Comments Aspirin 01/27/2014 Increased bleeding documented as of this encounter (statuses as of 11/11/2024) Medications traZODone (DESYREL) 50 MG Tablet Take [...] 1 Capsule before bedtime. 90 Capsule 5 Active Memantine HCl 5 MG Oral [...] as of this encounter (statuses as of 11/11/2024) Active Problems Problem Noted Date Diagnosed Date [...] as of this encounter (statuses as of 11/11/2024) Resolved Problems Problem Noted Date Diagnosed Date [...] as of this encounter (statuses as of 11/11/2024) Immunizations Name Administration Dates Next Due HEPATITIS B VACCINE, RECOMB, 20 MCG/ML, ADULT (HEPLISAV-B) 09/16/2024 Pneumococcal Conjugate Vacci ne, 20-valent ([id number]) 12/04/2022 Pneumococcal Polysaccharide PPV23 (Pneumovax) 05/06/2011 Seasonal [...] No 09/16/2024 Does the household have a [facility] source [facility] income? (Household - for [...] * Patient Instructions* Venus Strong RN - 11/11/2024 12:04 PM EDT Compression Therapy Education: Any questions, redness or swelling around the wound and development of a temperature of 101F or greater, please contact the [facility]. Please check your toes frequently. If they become blue, purple, pale, cool, numb, and/or tingling elevate your leg higher than your heart for one hour. If you have no relief of the symptoms, cut the entire wrap off and call the [facility], . Keep the wrap dry. If the wrap slides down or bunches at the ankle, call [facility]. Elevate legs above heart for 30 minutes 2-3 times a day. documented in this encounter Nursing Notes * Venus Strong, RN - 11/11/2024 11:16 AM EDT No wraps in place on arrival, states they came off on Sunday. She had dressings covering wounds on right leg, left leg wound open to air. Left leg wound worse today, larger and draining large amount of serous fluid. Wounds on bilateral lower legs are washed with soap and water and towel dried. Wound care applied, Calmoseptine to jael wounds. Vaseline to woundbeds, Allevyn Gentyl foam pad to cover all open wounds . ABD pads were placed, 1 at each ankle then and two at knees to help with shape of leg to better support Unna Boot. Kerlix roll and tape used to secure dressings followed by, Zinc Unnaboots to bilateral lower legs and Surgialst #5 documented in this encounter Plan of Treatment Upcoming Encounters Date Type Department Care Team (Late st Contact Info) Description 11/14/2024 10:30 AM EDT Nurse Only Wound Care, [facility] [address] [place] [address] [facility], Nurse Wound Care 400 [facility] [place] [address] 11/17/2024 2:00 PM EDT Office Visit [facility] [address] [place] [phone] Berlin Coleman CRNP [address] [place] [phone] 11/18/2024 11:20 AM EDT Office Visit Wound Care, [facility] [address] [place] [address] Yuriy Hilario MD [address] [place] [address] 11/19/2024 11:00 AM EDT Office Visit Orthopaedics, [facility] [address] [facility] Juan Carlos [address] [place] [address] Wilian Augustin DO [address] [facility] [address] 11/27/2024 10:00 AM EDT Office Visit SHOP TECH Urology [facility] [address] [place] [address] Cem Madrigal MD [address] [facility] [address] 12/02/2024 9:00 AM EDT [facility] 21 [place] [address] [facility] 21 [place] [address] 12/04/2024 1:20 PM EDT Office Visit [facility] [address] [place] [phone] Melissa Cruz PA-C [address] [place] [phone] 12/09/2024 9:30 AM EDT Tele[facility]icine [facility] [address] Jordan Arrieta MD 126 [facility] [place] [address] 12/09/2024 1:00 PM EDT Appointment Cardiac Studies, [facility] 400 [facility] [place] [address] 01/23/2025 10:09 AM EDT Hospital Encounter OR [facility], Operating Room, [facility] - 4th Floor 400 [facility] [place] [address] Joel Truong MD [address] [place] [address] 01/23/2025 10:09 AM EDT - 01/23/2025 10:53 AM EDT Surgery OR [facility], Operating Room, [facility] - 4th Floor [address] [place] [address] Joel Truong MD [address] [place] [address] COLONOSCOPY FLEXIBLE PROXIMAL DIAGNOSTIC 01/26/2025 3:30 PM EDT [facility] [address] [place] [address] Geovanna Patel PA-C 400 [facility] [place] [address] Scheduled Procedures Name Priority Associated Diagnoses Date/Ti [...] this encounter Medical Devices Implanted Type Area Jewelry Setter Device Identifier Shelf Expiration Date Model / Serial / Lot Device Perm Cntrl [id number] - [id number] Implanted:Qty: 2 on 09/27/2015 by Sharda Ruiz, Corey Rucker MD at OR [facility] Uterus [employer] 05/03/2017 [id number] / / [id number] documented as of this encounter Visit Diagnoses Diagnosis Multiple open wounds of lower leg, unspecified laterality, subsequent encounter- Primary Lymphedema Other lymphedema Type 2 diabetes mellitus with hemoglobin A1c goal of less than 7.0% (HCC) Venous insufficiency Unspecified venous (peripheral) insufficiency Class 3 severe obesity due to excess [...] Power of Attor bneoit? No Care Teams Dining Room Helper Relationship Specialty Start Date End Date Melissa Cruz PA-C [address] [place] [address] PCP - General Physician Transportation Technician 09/29/24 documented as of this encounter
--- OUTSIDE RECORDS SUMMARY | 2024-12-08 15:11 | External Medical Summary | Summary of Care ---
Author Name Unknown Organization [facility] Address [address] [place] [address] Phone [phone] Care Team Providers Care School Bus Attendant Name Role Phone Carylshyla Melissa Downing PA-C Primary Care Provider +1- [phone] Encounter Details Date Type Department Care Team (Late st Contact Info) Description 11/07/2024 10:30 AM EDT Nurse Only Wound Care, [facility] 400 [place] [address] [facility], Nurse Wound Care [address] [place] [address] Allergies Active Allergy Reactions Criticality Noted Date Comments Aspirin 01/27/2014 Increased bleeding documented as of this encounter (statuses as of 11/07/2024) Medications traZODone (DESYREL) 50 MG Tablet Take [...] DAY IN THE MORNING 90 Capsule Active documented as of this encounter (statuses as of 11/07/2024) Active Problems Problem Noted Date Diagnosed Date [...] as of this encounter (statuses as of 11/07/2024) Resolved Problems Problem Noted Date Diagnosed Date [...] as of this encounter (statuses as of 11/07/2024) Immunizations Name Administration Dates Next Due HEPATITIS B VACCINE, RECOMB, 20 MCG/ML, ADULT (HEPLISAV-B) 09/16/2024 Pneumococcal Conjugate Vacci ne, 20-valent ([id number]) 12/04/2022 Pneumococcal Polysaccharide PPV23 (Pneumovax) 05/06/2011 Seasonal [...] No 09/16/2024 Does the household have a [facility] source of income? (Household - for ages [...] * Patient Instructions* Megha López LPN - 11/07/2024 11:05 AM EDT Discharge Instructions: Unna Boot You [...] in this encounter Nursing Notes * Isha Ruiz, ALPESH - 11/07/2024 1:08 PM EDT Treatment provided per 's order. MAURICIO Acuña LPN assisted with care. Calmoseptine to jael wound tissue. Opticel foam pad to cover all open wounds these were then secured with Medipore 4 inch tape per her request. 2ABD pads were placed, 1 ateach ankle then and two at knees to help with shape of leg to better support Unna Boot. Her leg is then wrapped from toes to knees with the kerlix to secure ABD Pads. Unna Z and Coban applied from toes to cover dressings at knee then Surgialst #5 to protect Coban. She was then assisted with socks and sneakers. Assisted out of exam chair and into wheel chair. Pushed to check out. Provided compression education. Patient voiced understanding. Discharge Instructions: Unna Boot You will be [...] AM EDT Nurse Only Wound Care, [address] [address] [facility], Nurse Wound Care [address] [place] [address] 11/14/2024 10:30 AM EDT Nurse Only Wound Care, [address] [address] [facility], Nurse Wound Care [address] [place] [address] 11/17/2024 2:00 PM EDT Office Visit [facility] [address] [place] [address] eBrlin Coleman CRNP [address] [place] [address] 11/18/2024 11:20 AM EDT Office Visit Wound Care, [address] [address] Yuriy [place]ilar[place] [facility] [address] 11/19/2024 11:00 AM EDT [facility] [address] [place] [address] Wilian Augustin DO [address] [place] [address] 11/27/2024 10:00 AM EDT Office Visit SAMPLING THEORY TEACHER Urology [facility] 400 [place] [address] Cem Madrigal MD [address] [place] [address] 12/02/2024 9:00 AM EDT Telemedicine [facility] 21 [place] [address] [facility] 21 [facility] [place] [address] 12/04/2024 1:20 PM EDT Office Visit [facility] [address] [place] [address] Melissa Cruz PA-C [address] [place] [address] 12/09/2024 9:30 AM EDT [facility] 126 [facility] [address] Jordan Arrieta MD 126 [facility] [address] 12/09/2024 1:00 PM EDT Appointment Cardiac Studies, [address] [address] 01/23/2025 10:09 AM EDT Hospital Encounter OR [facility], Operating Room, [facility] - 4th Floor [address] [place], [place] [address], [place] [address] Joel Truong MD [address] [place] [address] 01/23/2025 10:09 AM EDT - 01/23/2025 10:53 AM EDT Surgery OR [facility], Operating Room, [facility] - 4th Floor [address] [place] [address] Joel Truong MD [address] [place] [address] COLONOSCOPY FLEXIBLE PROXIMAL DIAGNOSTIC 01/26/2025 3:30 PM EDT Office Visit [facility] [place] [address] [place] [address] Geovanna Patel PA-C 400 [facility] [address] Scheduled Procedures Name Priority Associated Diagnoses Date/Ti [...] this encounter Medical Devices Implanted Type Area Pack Train Driver Device Identifier Shelf Expiration Date Model / Serial / Lot Device Perm Cntrl [id number] - [id number] Implanted:Qty: 2 on 09/27/2015 by Sharda Ruiz, Corey Rucker MD [facility] Uterus [employer] 05/03/2017 [id number] / / [id number] documented as of this encounter Visit Diagnoses Diagnosis Multiple open wounds of lower leg, unspecified laterality, subsequent encounter- Primary Lymphedema Other lymphedema Type 2 diabetes mellitus with hemoglobin A1c goal of less than 7.0% (HCC) Venous insufficiency Unspecified venous (peripheral) insufficiency Irritant contact dermatitis due to other body fluid Class 3 severe obesity due to excess [...] Power of Attor benoit? No Care Teams School Bus Attendant Relationship Specialty Start Date End Date Melissa Cruz PA-C [address] [place] [address] PCP - General Physician Coke Worker 09/29/24 documented as of this encounter
--- OUTSIDE RECORDS SUMMARY | 2024-12-08 15:11 | External Medical Summary | Summary of Care ---
Author Name Unknown Organization [facility] Address [address] [place] [address] Phone [phone] Care Team Providers Care Facilities Technician Name Role Phone Melissa Cruz Jair FONSECA Primary Care Provider +1- [phone] Reason for Visit * Reason Onset Date Comments Compliance 11/17/2024 Encounter Details Date Type Department Care Team (Late st Contact Info) Description 11/17/2024 Telephone [facility], [place] [address] [place] [address] Jordan Arrieta MD [address] [place] [address] Compliance Allergies Active Allergy Reactions Criticality Noted Date [...] and 1 Capsule before bedtime. 90 Capsule 02/03/202 5 Active Memantine HCl 5 MG Oral [...] (HEPLISAV-B) 09/16/2024 Pneumococcal Conjugate Vacci ne, 20-valent ([id number]) 12/04/2022 Pneumococcal Polysaccharide PPV23 (Pneumovax) 05/06/2011 Seasonal [...] encounter Miscellaneous Notes * Telephone Encounter - Davie Simons RRT - 11/17/2024 9:33 AM EDT Requested compliance data from [facility]. documented in this encounter Plan of Treatment Upcoming Encounters Date Type Department Care Team (Late st Contact Info) Description 11/17/2024 2:00 PM EDT Office Visit [facility] [address] [employer] [employer] [place] [phone] Berlin Coleman CRNP [address] [employer] [place] [phone] 11/18/2024 11:20 AM EDT Office Visit Wound Care, [facility] 400 [facility] [place] [phone] Yuriy Hilario MD 27 [facility] [phone] 11/19/2024 11:00 AM EDT Office Visit Orthopaedics, [facility] [address] [facility] Juan [address] [place] [phone] Wilian Augustin DO [address] [facility] [place] [address] 11/27/2024 10:00 AM EDT Office Visit BASKET MENDER Urology [facility] 400 [facility] [place], [place] [phone] Cem Madrigal MD [address] [place] [address] 12/02/2024 9:00 AM EDT Telemedicine Pharmacy, [place] 21 [facility] [place] [address] [place], [facility] 21 [facility] [place] [phone] 12/04/2024 1:20 PM EDT Office Visit [facility] [address] [employer] [employer] [place] [address] Melissa Cruz PA-C [address] [employer] [place] [address] 12/09/2024 9:30 AM EDT [facility]icine [facility] [place] [address] Jordan Arrieta MD 126 [place] [address] 12/09/2024 1:00 PM EDT Appointment Cardiac Studies, [address] [place] [address] 01/23/2025 10:09 AM EDT Hospital Encounter OR [facility], Operating Room, [facility] Floor [address] [place] [address] [place] [address] Joel Truong MD [address] [place] [address] 01/23/2025 10:09 AM EDT - 01/23/2025 10:53 AM EDT Surgery OR [facility], Operating Room, [address] [place] [address] Joel Truong MD [address] [place] [address] COLONOSCOPY FLEXIBLE PROXIMAL DIAGNOSTIC 01/26/2025 3:30 PM EDT Office Visit Cardiology[address] [place] [address] Geovanna Patel PA-C 400 [facility] [place] [address] Scheduled Procedures Name Priority Associated Diagnoses Date/Ti [...] this encounter Medical Devices Implanted Type Area Billiard Table Mechanic Device Identifier Shelf Expiration Date Model / Serial / Lot Device Perm Cntrl [id number] - [id number] Implanted:Qty: 2 on 09/27/2015 by Sharda Ruiz, Corey Rucker MD at OR [facility] Uterus [employer] 05/03/2017 [id number] / / [id number] documented as of this encounter Advance Directives [...] Power of Attor benoit? No Care Teams Facilities Technician Relationship Specialty Start Date End Date Melissa Cruz PA-C [address] [employer] [place] [address] PCP - General Physician Senior Data Mining Analyst 09/29/24 documented as of this encounter
--- OUTSIDE RECORDS SUMMARY | 2024-12-08 15:12 | External Medical Summary | Summary of Care ---
Author Name Unknown Organization [facility] Address [address] [place] [address] Phone [phone] Care Team Providers Care Chick Sexer Name Role Phone Melissa Cruz Jair FONSECA Primary Care Provider +1- [phone] Reason for Visit * Reason Comments Wound Care BLE -- WOUNDS EDEMA Encounter Details Date Type Department Care Team (Late st Contact Info) Description 10/28/2024 10:30 AM EDT Nurse Only Wound Care, [facility] [address] [place] [address] [facility], Nurse Wound Care [address] [place] [address] Wound Care (BLE -- WOUNDS EDEMA ) Allergies Active Allergy Reactions Criticality Noted Date Comments Aspirin 01/27/2014 Increased bleeding documented as of this encounter (statuses as of 10/29/2024) Medications traZODone (DESYREL) 50 MG Tablet Take [...] Take 2 Capsules by mouth once. Active documented as of this encounter (statuses as of 10/29/2024) Active Problems Problem Noted Date Diagnosed Date [...] as of this encounter (statuses as of 10/29/2024) Resolved Problems Problem Noted Date Diagnosed Date [...] as of this encounter (statuses as of 10/29/2024) Immunizations Name Administration Dates Next Due HEPATITIS B VACCINE, RECOMB, 20 MCG/ML, ADULT (HEPLISAV-B) 09/16/2024 Pneumococcal Conjugate Vacci ne, 20-valent ([id number]) 12/04/2022 Pneumococcal Polysaccharide PPV23 (Pneumovax) 05/06/2011 Seasonal [...] Patient Instructions * Patient Instructions* Megha López, STROBOSCOPE OPERATOR - 10/28/2024 10:28 AM EDT Discharge Instructions: Unna Boot You [...] in this encounter Nursing Notes * Rene Megha ELIZA Garza - 10/28/2024 10:30 AM EDT Images from the original note were not included. Assisted to sit safely on exam seating aware to not rise unassisted for her safety. Presented today with no wraps / dany wraps to lower legs nor dressings over wound sites or lower extremities to provide compression either. Wound beds are very dry and crusted over. Once up in seat she began to pick at sites pulling crusted tissue off. I did ask her to not do this as may introduce infection from her hands / fingers that just touched w/c ect... into her wounds. She did understand and stated she never thought about this. Warm soap wash clothes were placed over wound sites to help loosen the dried exudate and debride from wound beds. I noticed while washing her legs that in most proximal folds in upper thighs she has noted moistness and is at great risk of these breaking down. I reminder her to be using Vinegar spray and hand towel or cotton fabric to keep tissue buttressed apart. She stated she would do so. Wounds were cleansed with soap and water after cleansing well wound bedtissue as noted hair and such in all sites this date. Right leg was worse then left -- noting most medial wound has resolves again. Photos of sites and measurements taken -- then dressings applied per order of -- BLE-- Calmoseptine to jael wound tissue - Opticel foam pad to cover all open wounds these were thensecured with Medipore 4 inch tape per her request. She then was provided ABD pads 2 at each ankle then and to at knee tissue to help with shape of leg to better support Unna Boot. Her leg is then wrapped from toes to knees with the kerlix to secure ABD Pads -- Unna Z - Coban applied from toes to cover dressings at knee then Surgialst #5 to protect Coban. She was then assisted with socks and sneakers --safely transferred to w/c and propelled to check out. Aware to call with any questions or concerns. Review of Unna z safety as noted in Patient education -- documented in this encounter Plan of Treatment Upcoming Encounters Date Type Department Care Team (Latest Contact Info) Description 10/30/2024 2:00 PM EDT Office Visit [facility] [address] [place] [address] [place] Coleman CRNP [address] [place] [address] 10/31/2024 10:30 AM EDT Nurse Only Wound Care, [address] [address] [facility], Nurse Wound Care [address] [place], [place] [address] [address] 11/03/2024 11:00 AM EDT Nurse Only Wound Care, [address] [address] [facility], Nurse Wound Care [address] [place], [place] [address] [address] 11/04/2024 1:00 PM EDT Appointment Radiology, [address] [address] 11/07/2024 10:30 AM EDT Nurse Only Wound Care, [address] [address] [facility], Nurse Wound Care [address] [place], [place] [address] [address] 11/11/2024 10:30 AM EDT Nurse Only Wound Care, [address] [address] [facility], Nurse Wound Care [address] [place], [place] [address] [address] 11/14/2024 10:30 AM EDT Nurse Only Wound Care, [address] [address] [facility], Nurse Wound Care [address] [place], [place] [address] [address] 11/18/2024 11:20 AM EDT Office Visit Wound Care, [address] [place] [address] Yuriy Hilario MD [address] [place] [address] 11/19/2024 11:00 AM EDT [facility] [address] [place] [address] Wilian Augustin DO [address] [place] [address] 11/27/2024 10:00 AM EDT Office Visit CLINICAL STUDY MANAGER Urology [address] [place] [address] Cem Madrigal MD [address] [place] [address] 12/04/2024 1:20 PM EDT Office Visit [facility] [address] [place] [address] Melissa Cruz PA-C [address] [place] [address] 12/09/2024 9:30 AM EDT [facility] [address] [place] [address] Jordan Arrieta MD [address] [facility] [address] 12/09/2024 1:00 PM EDT Appointment Cardiac Studies, [address] [place] [address] 01/23/2025 10:09 AM EDT Hospital Encounter [facility], Operating Room, [facility] - 4th Floor [address] [place] [address] Joel Truong MD [address] [place] [address] 01/23/2025 10:09 AM EDT - 01/23/2025 10:53 AM EDT Surgery [facility], Operating Room, [facility] - 4th Floor [address] [place] [address] Joel Truong MD [address] [place] [address] COLONOSCOPY FLEXIBLE PROXIMAL DIAGNOSTIC 01/26/2025 3:30 PM EDT Office Visit Cardiology, [place] [address] [place] [address] Geovanna Patel PA-C [address] [place] [address] Scheduled Procedures Name Priority Associated Diagnoses Date/Ti [...] this encounter Medical Devices Implanted Type Area Business Development Representative Device Identifier Shelf Expiration Date Model / Serial / Lot Device Perm Cntrl [id number] - [id number] Implanted:Qty: 2 on 09/27/2015 by Sharda Ruiz, Corey Rucker MD at OR [facility] Uterus [employer] 05/03/2017 [id number] / / [id number] documented as of this encounter Visit Diagnoses [...] Power of Attor benoit? No Care Teams Chick Sexer Relationship Specialty Start Date End Date Melissa Cruz PA-C [address] [place] [phone] PCP - General Physician Otr Refrigerated Cdl Truck Driver 09/29/24 documented as of this encounter
--- OUTSIDE RECORDS SUMMARY | 2024-12-08 15:12 | External Medical Summary | Summary of Care ---
Author Name Unknown Organization [facility] Address [address] [place] [address] Phone [phone] Care Team Providers Care Livestock Nutritionist Name Role Phone CarylTy mansfieldanthony Adam PA-C Primary Care Provider +1- [phone] Reason for Visit * Reason Comments Wound Care BLE -- WOUNDS AND ED YANIRA Encounter Details Date Type Department Care Team (Late st Contact Info) Description 10/31/2024 10:30 AM EDT Nurse Only Wound Care, [facility] [address] [place] [address] [facility], Nurse Wound Care [address] [place] [address] Wound Care (BLE -- WOUNDS AND EDEMA ) Allergies Active Allergy Reactions Criticality Noted Date Comments Aspirin 01/27/2014 Increased bleeding documented as of this encounter (statuses as of 10/31/2024) Medications traZODone (DESYREL) 50 MG Tablet Take [...] as of this encounter (statuses as of 10/31/2024) Active Problems Problem Noted Date Diagnosed Date [...] as of this encounter (statuses as of 10/31/2024) Resolved Problems Problem Noted Date Diagnosed Date [...] as of this encounter (statuses as of 10/31/2024) Immunizations Name Administration Dates Next Due HEPATITIS B VACCINE, RECOMB, 20 MCG/ML, ADULT (HEPLISAV-B) 09/16/2024 Pneumococcal Conjugate Vacci ne, 20-valent ([id number]) 12/04/2022 Pneumococcal Polysaccharide PPV23 (Pneumovax) 05/06/2011 Seasonal [...] * Patient Instructions* Megha López, ELIZA - 10/31/2024 9:59 AM EDT Discharge Instructions: Unna Boot You [...] documented in this encounter Nursing Notes * LufkinSaeidIshaALPESH - 10/31/2024 12:14 PM EDT Chief Complaint Patient presents with Wound Care BLE -- WOUNDS AND EDEMA Patient was instructed to not get up on the exam table/exam chair until directed and assisted by their provider; patient is to remain seated in the chair/ wheelchair/ exam table/ exam chair for fall prevention and safety reasons. Patient is aware to have assistance to step down off exam table/exam chair with personnel. Patient voiced full comprehension of instructions. Left wrap slid down and was bunched up at the ankle. Patient said "look it is still intact and not wrinkled at the ankle." It was pointed out that the wrap had indeed slid and was bunched at the ankle. Patient stated she had changed bilateral bandages. Both legs were indeed changed recently. Right leg had wrap removed. Dressings removed bilaterally. Wounds, legs, and feet washed with soap and water. Towel dried. Patient tolerated well. Wound care order followed per Dr Hilario.Wound beds with Vaseline.Jaye wounds treated with Calmoseptine. Wounds then covered with Opticel Foam pads and ABD Pads secured with 4" Medipore tape. ABD toposterior ankle and to buttress skin folds at knee and thighs all secured with Kerlix from toes to above knee. Unna boot is then applied protected with Surgilast. Assisted putting on socks and shoes and into wheel chair. Review of Unna boot safety and to remove as well as doing daily wound care once then Unna Boots have slid from current position with Mica again stating understanding at this time. Propelled to check out Aware to call with any questions or concerns. Discharge Instructions: Unna Boot You will be [...] Department Care Team (Latest Contact Info) Description 11/03/2024 11:00 AM EDT Nurse Only Wound Care, [address] [place] [id number] [facility], Nurse Wound Care [address] [place], [place] [address] [address] 11/04/2024 1:00 PM EDT Appointment Radiology, [facility] [address] [facility] [address] 11/07/2024 10:30 AM EDT Nurse Only Wound Care, [facility] 400 [place] [address] [facility], Nurse Wound Care [address] [place] [address] 11/11/2024 10:30 AM EDT Nurse Only Wound Care, [address] [place] [address] [facility], Nurse Wound Care [address] [place] [address] 11/14/2024 10:30 AM EDT Nurse Only Wound Care, [address] [place] [address] [facility], Nurse Wound Care [address] [place] [address] 11/17/2024 2:00 PM EDT Office Visit [facility] [address] [place] [address] [place] Coleman CRNP [address] [place] [address] 11/18/2024 11:20 AM EDT Office Visit Wound Care, [address] [address] Yuriy Hilario MD [address] [place] [address] 11/19/2024 11:00 AM EDT Office Visit Orthopaedics, [facility] [place] [address] [facility] [address] [place] [address] Wilian Augustin, DO [address] [place] [address] 11/27/2024 10:00 AM EDT Office Visit VP HUMAN RESOURCES Urology [facility] [address] [place] [address] Cem Madrigal MD [address] [place] [address] 12/04/2024 1:20 PM EDT Office Visit [facility] [address] [place] [address] Melissa Cruz PA-C [address] [place] [address] 12/09/2024 9:30 AM EDT [facility] [address] Jordan Arrieta MD [address] [place] [address] 12/09/2024 1:00 PM EDT Appointment Cardiac Studies, [address] [place] [address] 01/23/2025 10:09 AM EDT Hospital Encounter OR [facility], Operating Room, [facility] - 4th Floor [address] [place] [phone] Joel Truong MD [address] [place] [address] 01/23/2025 10:09 AM EDT - 01/23/2025 10:53 AM EDT Surgery OR [facility], Operating Room, [facility] - 4th Floor [address] [place] [address] [place] [phone] Joel Truong MD [address] [place] [address] COLONOSCOPY FLEXIBLE PROXIMAL DIAGNOSTIC 01/26/2025 3:30 PM EDT [facility] [address] [place] [address] Geovanna Patel PA-C [address] [place] [place] [address] Scheduled Procedures Name Priority Associated Diagnoses Date/Ti [...] this encounter Medical Devices Implanted Type Area Chemical Engraver Device Identifier Shelf Expiration Date Model / Serial / Lot Device Perm Cntrl [id number] - [id number] Implanted:Qty: 2 on 09/27/2015 by Sharda Ruiz, Corey Rucker MD at OR [facility] Uterus [employer] 05/03/2017 [id number] / / [id number] documented as of this encounter Visit Diagnoses Diagnosis Multiple open wounds of lower leg, unspecified laterality, subsequent encounter- Primary Lymphedema Other lymphedema Class 3 severe obesity due to excess calories with serious comorbidity and body mass index (BMI) greater than or equal to 70 in adult (HCC) Irritant contact dermatitis due to other body fluid Type 2 diabetes mellitus with hemoglobin A1c goal of less than 7.0% (HCC) Venous insufficiency Unspecified venous (peripheral) insufficiency Screening for colon cancer Special screening for [...] Power of Attor benoit? No Care Teams Livestock Nutritionist Relationship Specialty Start Date End Date Melissa Cruz PA-C [address] [place] [address] PCP - General Physician Intensive Care Medicine Specialist 09/29/24 documented as of this encounter
--- OUTSIDE RECORDS SUMMARY | 2024-12-08 15:12 | External Medical Summary | Summary of Care ---
Author Name Unknown Organization [facility] Address [address] [place] [address] Phone [phone] Care Team Providers Care Button Attaching Machine Operator Name Role Phone Melissa Cruz Chang FONSECA Primary Care Provider +1- [phone] Reason for Visit * Reason Comments Wound Care BLE -- WOUNDS EDEMA Encounter Details Date Type Department Care Team (Late st Contact Info) Description 10/28/2024 10:30 AM EDT Nurse Only Wound Care, [facility] [address] [place] [address] [facility], Nurse Wound Care [address] [place] [address] Wound Care (BLE -- WOUNDS EDEMA ) [...] (HEPLISAV-B) 09/16/2024 Pneumococcal Conjugate Vacci ne, 20-valent ([id number]) 12/04/2022 Pneumococcal Polysaccharide PPV23 (Pneumovax) 05/06/2011 Seasonal [...] Patient Instructions * Patient Instructions* Megha López, SHAKER FLATWORK - 10/28/2024 10:28 AM EDT Discharge Instructions: [...] Care Team (Late st Contact Info) Description 10/29/2024 10:00 AM EDT Telemedicine Pharmacy, [place] [address] [address] [place] [facility] [address] [place] [address] 10/30/2024 2:00 PM EDT Office Visit [facility] [address] [place] [address] [place] [address] [place] Coleman CRNP [address] [place] [address] 10/31/2024 10:30 AM EDT Nurse Only Wound Care, [address] [address] [facility], Nurse Wound Care [address] [place], [place] [address] [address] 11/04/2024 11:30 AM EDT Nurse Only Wound Care, [address] [place] [address] [facility], Nurse Wound Care [address] [place], [place] [address] [address] 11/04/2024 1:00 PM EDT Appointment Radiology, [address] [place] [address] 11/07/2024 10:30 AM EDT Nurse Only Wound Care, [address] [address] [facility], Nurse Wound Care [address] [place], [place] [address] [address] 11/11/2024 10:30 AM EDT Nurse Only Wound Care, [address] [address] [facility], Nurse Wound Care [address] [place] [address] 11/14/2024 10:30 AM EDT Nurse Only Wound Care, [facility] [address] [place] [address] [facility], Nurse Wound Care [address] [place] [address] 11/18/2024 11:20 AM EDT Office Visit Wound Care, [facility] [address] [place] [address] Yuriy Hilario MD [address] [place] [address] 11/19/2024 11:00 AM EDT Office Visit Orthopaedics, [facility] [address] [facility] [address] [place] [address] Wilian Augustin DO [address] [place] [address] 11/27/2024 10:00 AM EDT Office Visit OTA Urology [facility] [address] [place] [address] Cem Madrigal MD [address] [place] [address] 12/04/2024 1:20 PM EDT Office Visit [facility] [address] [place] [address] Melissa Cruz PA-C [address] [place] [address] 12/09/2024 9:30 AM EDT [facility] [address] [place] [address] Jordan Arrieta MD [address] [place] [address] 12/09/2024 1:00 PM EDT Appointment Cardiac Studies, [facility] [address] [place] [address] 01/23/2025 10:09 AM EDT Hospital Encounter OR [facility], Operating Room, [facility] - 4th Floor [address] [place] [address] Joel Truong MD [address] [place] [address] 01/23/2025 10:09 AM EDT - 01/23/2025 10:53 AM EDT Surgery OR [facility], Operating Room, [facility] - 4th Floor [address] [place] [address] Joel Truong MD [address] [place] [address] COLONOSCOPY FLEXIBLE PROXIMAL DIAGNOSTIC 01/26/2025 3:30 PM EDT Office Visit Cardiology, [place] [address] [place] [address] Geovanna Patel PA-C [address] [place] [address] Scheduled Procedures Name Priority Associated Diagnoses Date/Ti me COLONOSCOPY FLEXIBLE PROXIMAL DIAGNOSTIC Screening for colon cancer 01/23/2025 10:09 AM EDT Health Maintenance Due Date Last Done Comments HPV/Co-Test 01/12/2006 Mammogram 06/06/2019 06/06/2018, 09/18/2016 Cologuard 01/12/2021 Colonoscopy 01/12/2021 12/02/2008 Colorectal Cancer Screening 01/12/2021 Fecal Occult Blood Test 01/12/2021 Sigmoidoscopy 01/12/2021 Cervical Cancer Screening 01/11/2024 Pap Smear 01/11/2024 01/10/2021, /11/2013, 02/10/2009 COVID-19 Vaccine (1 - 2024-25 season) 2024 Hepatitis B Vaccine (2 of [...] this encounter Medical Devices Implanted Type Area Adjutant General Device Identifier Shelf Expiration Date Model / Serial / Lot Device Perm Cntrl [id number] - [id number] Implanted:Qty: 2 on 09/27/2015 by Sharda Ruiz, Corey Rucker MD at OR [facility] Uterus [employer] 05/03/2017 [id number] / / [id number] documented as of this encounter Visit Diagnoses [...] Power of Attor benoit? No Care Teams Button Attaching Machine Operator Relationship Specialty Start Date End Date Melissa Cruz PA-C [address] [place] [address] PCP - General Physician Lithographic Stripper 09/29/24 documented as of this encounter
--- OUTSIDE RECORDS SUMMARY | 2024-12-08 15:12 | External Medical Summary | Summary of Care ---
Author Name Unknown Organization [facility] Address [address] [place] [address] Phone [phone] Care Team Providers Care Pig Furnace Operator Name Role Phone CarylTy mansfieldanthony Adam PA-C Primary Care Provider +1- [phone] Reason for Visit * Reason Comments Wound Care BLE -- WOUNDS AND ED YANIRA Encounter Details Date Type Department Care Team (Late st Contact Info) Description 10/31/2024 10:30 AM EDT Nurse Only Wound Care, [facility] [address] [place] [address] [facility], Nurse Wound Care [address] [place] [address] Wound Care (BLE -- WOUNDS AND EDEMA [...] (HEPLISAV-B) 09/16/2024 Pneumococcal Conjugate Vacci ne, 20-valent ([id number]) 12/04/2022 Pneumococcal Polysaccharide PPV23 (Pneumovax) 05/06/2011 Seasonal [...] documented in this encounter Nursing Notes * [place]ingtonSaeidIshaALPESH - 10/31/2024 12:14 PM EDT Chief Complaint [...] 11:00 AM EDT Nurse Only Wound Care, [address] [phone] [facility], Nurse Wound Care [address] [place], [place] [address] [address] 11/04/2024 1:00 PM EDT Appointment Radiology, [facility] [address] [facility] [address] 11/07/2024 10:30 AM EDT Nurse Only Wound Care, [facility] 400 [place] [address] [facility], Nurse Wound Care [address] [place] [address] 11/11/2024 10:30 AM EDT Nurse Only Wound Care, [address] [place] [address] [facility], Nurse Wound Care [address] [place] [address] 11/14/2024 10:30 AM EDT Nurse Only Wound Care, [address] [place] [address] [facility], Nurse Wound Care [address] [place] [address] 11/17/2024 2:00 PM EDT Office Visit [facility] [address] [place] [address] [place] Coleman CRNP [address] [place] [address] 11/18/2024 11:20 AM EDT Office Visit Wound Care, [address] [address] Yuriy Hilario MD [address] [place] [address] 11/19/2024 11:00 AM EDT Office Visit Orthopaedics, [facility] [address] [facility] [address] [place] [address] Wilian Augustin, DO [address] [place] [address] 11/27/2024 10:00 AM EDT Office Visit ACQUISITION PROFESSIONAL Urology [facility] [address] [place] [address] Cem Madrigal MD [address] [place] [address] 12/04/2024 1:20 PM EDT Office Visit [facility] [address] [place] [address] Melissa Cruz PA-C [address] [place] [address] 12/09/2024 9:30 AM EDT [facility] [address] Jordan Arrieta MD [address] [place] [address] 12/09/2024 1:00 PM EDT Appointment Cardiac Studies, [address] [place] [address] 01/23/2025 10:09 AM EDT Hospital Encounter OR [facility], Operating Room, [facility] - 4th Floor [address] [place] [phone] Joel Truong MD [address] [place] [address] 01/23/2025 10:09 AM EDT - 01/23/2025 10:53 AM EDT Surgery OR [facility], Operating Room, [facility] - 4th Floor [address] [place] [address] [place] [phone] Joel Truong MD [address] [place] [address] COLONOSCOPY FLEXIBLE PROXIMAL DIAGNOSTIC 01/26/2025 3:30 PM EDT [facility] [address] [place] [address] Geovanna Patel PA-C [address] [place] [address] Scheduled Procedures Name Priority Associated Diagnoses Date/Ti [...] this encounter Medical Devices Implanted Type Area Pca Assisted Living Device Identifier Shelf Expiration Date Model / Serial / Lot Device Perm Cntrl [id number] - [id number] Implanted:Qty: 2 on 09/27/2015 by Sharda Ruiz, Corey Rucker MD at OR [facility] Uterus [employer] 05/03/2017 [id number] / / [id number] documented as of this encounter Visit Diagnoses [...] Power of Attor benoit? No Care Teams Pig Furnace Operator Relationship Specialty Start Date End Date Melissa Cruz PA-C [address] [place] [address] PCP - General Physician Interior Design Director 09/29/24 documented as of this encounter
--- OUTSIDE RECORDS SUMMARY | 2024-12-08 15:12 | External Medical Summary | Summary of Care ---
Author Name Unknown Organization [facility] Address [address] [place] [address] Phone [phone] Care Team Providers Care Auto Overhauler Name Role Phone Melissa Cruz Chang FONSECA Primary Care Provider +1- [phone] Reason for Visit * Reason Onset Date Comments Appointment 10/29/2024 Encounter Details Date Type Department Care Team (Late st Contact Info) Description 10/29/2024 Telephone Wound Care, [facility] [address] [place], [place] [phone] Yuriy Hilario MD [address] [place], [place] [phone] Appointment Allergies Active Allergy Reactions Criticality Noted [...] (HEPLISAV-B) 09/16/2024 Pneumococcal Conjugate Vacci ne, 20-valent ([id number]) 12/04/2022 Pneumococcal Polysaccharide PPV23 (Pneumovax) 05/06/2011 Seasonal [...] No 09/16/2024 Does the household have a advanced care [...] Telephone Encounter - Kalyn Rivera OSA - 10/29/2024 1:37 PM EDT Appointment is rescheduled. * Telephone Encounter - Megha López LPN - 10/29/2024 1:13 PM EDT Called Mica and she is agreeable to have her appointment changed from SundayNovember 04. to Sunday11/03/2024 at 11:00. Thanks so much . documented in this encounter Plan of Treatment Upcoming Encounters Date Type Department Care Team (Latest Contact Info) Description 10/30/2024 2:00 PM EDT Office Visit [facility] [address] [place] [address] [place] Coleman CRNP [address] [place] [address] 10/31/2024 10:30 AM EDT Nurse Only Wound Care, [address] [address] [facility], Nurse Wound Care [address] [place], [place] [address] [address] 11/03/2024 11:00 AM EDT Nurse Only Wound Care, [address] [address] [facility], Nurse Wound Care [address] [place], [place] [address] [address] 11/04/2024 1:00 PM EDT Appointment Radiology, [address] [place] [address] 11/07/2024 10:30 AM EDT Nurse Only Wound Care, [address] [place] [address] [facility], Nurse Wound Care [address] [place], [place] [address] [address] 11/11/2024 10:30 AM EDT Nurse Only Wound Care, [address] [address] [facility], Nurse Wound Care [address] [place] [address] 11/14/2024 10:30 AM EDT Nurse Only Wound Care, [address] [address] [facility], Nurse Wound Care [address] [place] [address] 11/18/2024 11:20 AM EDT Office Visit Wound Care, [address] [address] Yuriy Hilario MD [address] [place] [address] 11/19/2024 11:00 AM EDT Office Visit Orthopaedics, [facility] [address] Juan Carlos [address] [place] [address] [place] [address] Wilian Augustin DO [address] [facility] [place] [address] 11/27/2024 10:00 AM EDT Office Visit SPANISH TUTOR Urology [facility] 400 [place] [address] Cem Madrigal MD [address] [facility] [place] [address] 12/04/2024 1:20 PM EDT Office Visit [facility] [address] [place] [address] Melissa Cruz PA-C [address] [place] [address] 12/09/2024 9:30 AM EDT Telemedicine Sleep Disorders Center, [address] [place] [address] Jordan Arrieta MD 126 [facility] [place] [address] 12/09/2024 1:00 PM EDT Appointment Cardiac Studies, [facility] 400 [facility] [place] [address] 01/23/2025 10:09 AM EDT Hospital Encounter OR [facility], Operating Room, [facility] - 4th Floor 400 [facility] [place] [address] Joel Truong MD [address] [place] [address] 01/23/2025 10:09 AM EDT - 01/23/2025 10:53 AM EDT Surgery OR [facility], Operating Room, [facility] - 4th Floor [address] [place] [address] Joel Truong MD [address] [place] [address] COLONOSCOPY FLEXIBLE PROXIMAL DIAGNOSTIC 01/26/2025 3:30 PM EDT Office Visit [facility] [address] [place] [address] Geovanna Patel PA-C 400 [facility] [place] [address] Scheduled Procedures Name Priority Associated Diagnoses Date/Ti [...] this encounter Medical Devices Implanted Type Area Wine Steward/Stewardess Device Identifier Shelf Expiration Date Model / Serial / Lot Device Perm Cntrl [id number] - [id number] Implanted:Qty: 2 on 09/27/2015 by Sharda Ruiz, Corey Rucker MD at OR [facility] Uterus [employer] 05/03/2017 [id number] / / [id number] documented as of this encounter Advance Directives [...] Power of Attor benoit? No Care Teams Auto Overhauler Relationship Specialty Start Date End Date Melissa Cruz PA-C [address] [place] [phone] PCP - General Physician Inside Sales Lead 09/29/24 documented as of this encounter
--- OUTSIDE RECORDS SUMMARY | 2024-12-08 15:12 | External Medical Summary | Summary of Care ---
Author Name Unknown Organization [facility] Address [address] [place] [address] Phone [phone] Care Team Providers Care Fur Comber Name Role Phone Melissa Cruz Jair FONSECA Primary Care Provider +1- [phone] Reason for Visit * Reason Comments Wound Care BLE -- WOUNDS EDEMA Encounter Details Date Type Department Care Team (Late st Contact Info) Description 10/28/2024 10:30 AM EDT Nurse Only Wound Care, [facility] [address] [place] [address] [facility], Nurse Wound Care 400 [place] [address] Wound Care (BLE -- WOUNDS EDEMA ) [...] (HEPLISAV-B) 09/16/2024 Pneumococcal Conjugate Vacci ne, 20-valent ([id number]) 12/04/2022 Pneumococcal Polysaccharide PPV23 (Pneumovax) 05/06/2011 Seasonal [...] Patient Instructions * Patient Instructions* Megha López, BODILY INJURY ADJUSTER - 10/28/2024 10:28 AM EDT Discharge Instructions: [...] Description 10/30/2024 2:00 PM EDT Office Visit [facility] [address] [place] [address] [place] Coleman CRNP [address] [place] [address] 10/31/2024 10:30 AM EDT Nurse Only Wound Care, [address] [address] [facility], Nurse Wound Care [address] [place], [place] [address] [address] 11/03/2024 11:00 AM EDT Nurse Only Wound Care, [address] [address] [facility], Nurse Wound Care [address] [place], [place] [address] [address] 11/04/2024 1:00 PM EDT Appointment Radiology, [address] [address] 11/07/2024 10:30 AM EDT Nurse Only Wound Care, [address] [address] [facility], Nurse Wound Care [address] [place], [place] [address] [address] 11/11/2024 10:30 AM EDT Nurse Only Wound Care, [address] [address] [facility], Nurse Wound Care [address] [place], [place] [address] [address] 11/14/2024 10:30 AM EDT Nurse Only Wound Care, [address] [address] [facility], Nurse Wound Care [address] [place], [place] [address] [address] 11/18/2024 11:20 AM EDT Office Visit Wound Care, [address] [place] [address] Yuriy Hilario MD [address] [place] [address] 11/19/2024 11:00 AM EDT [facility] [address] [place] [address] Wilian Augustin DO [address] [place] [address] 11/27/2024 10:00 AM EDT Office Visit FITNESS AND WELLNESS MANAGER Urology [address] [place] [address] Cem Madrigal MD [address] [place] [address] 12/04/2024 1:20 PM EDT Office Visit [facility] [address] [place] [address] Melissa Cruz PA-C [address] [place] [address] 12/09/2024 9:30 AM EDT [facility] 126 [place] [address] Jordan Arrieta MD 126 [facility] [address] 12/09/2024 1:00 PM EDT Appointment Cardiac Studies, [address] [place] [address] 01/23/2025 10:09 AM EDT Hospital Encounter OR [facility], Operating Room, [facility] - 4th Floor 400 [place] [address] Joel Truong MD [address] [place] [address] 01/23/2025 10:09 AM EDT - 01/23/2025 10:53 AM EDT Surgery OR [facility], Operating Room, [facility] - 4th Floor 400 [place] [address] Joel Truong MD [address] [place] [address] COLONOSCOPY FLEXIBLE PROXIMAL DIAGNOSTIC 01/26/2025 3:30 PM EDT Office Visit Cardiology, [place] [address] [place] [address] Geovanna Patel PA-C [address] [place] [address] Scheduled Procedures Name Priority Associated Diagnoses Date/Ti [...] this encounter Medical Devices Implanted Type Area Social Media Manager Device Identifier Shelf Expiration Date Model / Serial / Lot Device Perm Cntrl [id number] - [id number] Implanted:Qty: 2 on 09/27/2015 by Sharda Ruiz, Corey Rucker MD at OR [facility] Uterus [employer] 05/03/2017 [id number] / / [id number] documented as of this encounter Visit Diagnoses [...] Power of Attor benoit? No Care Teams Fur Comber Relationship Specialty Start Date End Date Melissa Cruz PA-C [address] [place] [phone] PCP - General Physician Brand Advocate 09/29/24 documented as of this encounter
--- OUTSIDE RECORDS SUMMARY | 2024-12-08 15:12 | External Medical Summary | Summary of Care ---
Author Name Unknown Organization [facility] Address [address] [place] [address] Phone [phone] Care Team Providers Care Audiovisual Lead Technician Name Role Phone Melissa Cruz Chang FONSECA Primary Care Provider +1- [phone] Reason for Visit * Reason Comments Wound Care BLE -- EDEMA -- WOUN DS Encounter Details Date Type Department Care Team (Late st Contact Info) Description 11/03/2024 11:00 AM EDT Nurse Only Wound Care, [facility] [address] [place] [address] [facility], Nurse Wound Care [address] [place] [address] Wound Care (BLE -- EDEMA -- WOUNDS ) Allergies Active Allergy Reactions Criticality Noted Date Comments Aspirin 01/27/2014 Increased bleeding documented as of this encounter (statuses as of 11/03/2024) Medications traZODone (DESYREL) 50 MG Tablet Take [...] DAY 90 Capsule 3 12/03/19 24 Active Ferrous Sulfate 28 MG Oral [...] 24 Active Furosemide 40 MG Oral Tablet (Lasix)Indicatio [...] bedtime. 90 Tablet 3 08/07/19 25 Active Cetirizine HCl 10 MG Oral Tablet (ZyrTEC)Indicati ons:Mild persistent asthma without complication TAKE 1 TABLET BY MOUTH EVERY DAY 90 Tablet 1 08/27/19 25 Active Potassium Chloride ER 10 MEQ Oral Tablet Extended ReleaseIndicatio ns:Edema, unspecified type TAKE 1 TABLET BY MOUTH EVERY DAY IN THE MORNING 90 Tablet 1 08/27/19 25 Active Pregabalin 150 MG Oral Capsule (Lyrica)Indicati ons:Neuropathy Take 1 Capsule by mouth in the morning and 1 Capsule at noon and 1 Capsule before bedtime. 90 Capsule 09/08/19 25 Active Memantine HCl 5 MG Oral Tablet Take 5 mg once daily for 7 days, then increase to 5 mg twice daily until seen again. For pain 60 Tablet 1 09/30/19 25 Active Tart Garcia 1200 MG Oral Capsule Take 3,600 mg by mouth once. Active Turmeric Complex/Black Pepper 5-1000 MG Oral Capsule (Black Pepper-Turmeric) Take 2 Capsules by mouth once. Active Vitamin D3 50 MCG (2000 UT) Oral CapsuleIndicatio ns:Vitamin D deficiency TAKE 1 CAPSULE BY MOUTH EVERY DAY IN THE MORNING 90 Capsule 08/08/19 25 025 Discontinued documented as of this encounter (statuses as of 11/03/2024) Active Problems Problem Noted Date Diagnosed Date [...] as of this encounter (statuses as of 11/03/2024) Resolved Problems Problem Noted Date Diagnosed Date [...] as of this encounter (statuses as of 11/03/2024) Immunizations Name Administration Dates Next Due HEPATITIS B VACCINE, RECOMB, 20 MCG/ML, ADULT (HEPLISAV-B) 09/16/2024 Pneumococcal Conjugate Vacci ne, 20-valent ([id number]) 12/04/2022 Pneumococcal Polysaccharide PPV23 (Pneumovax) 05/06/2011 Seasonal [...] No 09/16/2024 Does the household have a [facility] source of income? (Household - [...] Patient Instructions * Patient Instructions* Megha López', MINILAB OPERATOR - 11/03/2024 11:10 AM EDT Discharge Instructions: Unna Boot You [...] Nursing Notes * Megha López LPN - 11/03/2024 11:12 AM EDT Images from the original note were not included. Assisted to sit safely on exam seating from her w/c -- noted aware to not rise unassisted for her safety. Stated unna boots came off yesterday and that is when new dressings were applied. She did state shehad scratched her foot with her finger nail at the time of Unna Boot removal as well. Legs were washed by both staff present - with soap and water -- towel dried tolerated well. Melissawas shown the need to have improved cleansing of sites as related to amount of Bio-burden to all sites worse being most medial at this time. Post photos and measurements treatment provided by this ELIZA and DATABASE MARKETING SPECIALIST- N.P. Per 's order. BLE-- Calmoseptine to jael wound tissue - [...] concerns. Review of Unna boot safety as noted in patient education was reviewed once again. In addition to apply compression through Ifliberto Wraps or tubi call center support consultant and use of Vinegar to thigh folds. Discharge Instructions: Unna Boot You will be [...] Department Care Team (Latest Contact Info) Description 11/04/2024 1:00 PM EDT Appointment Radiology, [address] [address] 11/07/2024 10:30 AM EDT Nurse Only Wound Care, [facility] 400 [facility] [address] [facility], Nurse Wound Care [address] [place], [place] [address] [address] 11/11/2024 10:30 AM EDT Nurse Only Wound Care, [address], [place] [address] [facility], Nurse Wound Care [address] [place], [place] [address] [address] 11/14/2024 10:30 AM EDT Nurse Only Wound Care, [address] [address] [facility], Nurse Wound Care [address] [place], [place] [address] [address] 11/17/2024 2:00 PM EDT Office Visit [facility] [address] [place] [address] [place] Coleman CRNP [address] [place] [address] 11/18/2024 11:20 AM EDT Office Visit Wound Care, [address] [address] Yuriy Hilario MD [address] [place] [address] 11/19/2024 11:00 AM EDT [facility] [address] [place] [address] Wilian Augustin, DO [address] [place] [address] 11/27/2024 10:00 AM EDT Office Visit SUPERVISOR COOK [employer]SE Urology [address] [address] Cem Madrigal MD [address] [place] [address] 12/04/2024 1:20 PM EDT Office Visit [facility] [address] [place] [address] Melissa Cruz PA-C [address] [place] [address] 12/09/2024 9:30 AM EDT [facility] 126 [place] [address] Jordan Arrieta MD 126 [place] [address] 12/09/2024 1:00 PM EDT Appointment Cardiac Studies, [address] [place] [address] 01/23/2025 10:09 AM EDT Hospital Encounter OR [facility], Operating Room, [facility] - 4th Floor [address] [place] [phone] Joel Truong MD [address] [place] [address] 01/23/2025 10:09 AM EDT - 01/23/2025 10:53 AM EDT Surgery OR [facility], Operating Room, [facility] - 4th Floor [address] [place] [address] [place] [phone] Joel Truong MD [address] [place] [address] COLONOSCOPY FLEXIBLE PROXIMAL DIAGNOSTIC 01/26/2025 3:30 PM EDT Office Visit Cardiology[address] [place] [address] Geovanna Patel PA-C [address] [place] [address] Scheduled Procedures Name Priority Associated Diagnoses Date/Ti [...] this encounter Medical Devices Implanted Type Area Zinc Etcher Device Identifier Shelf Expiration Date Model / Serial / Lot Device Perm Cntrl [id number] - [id number] Implanted:Qty: 2 on 09/27/2015 by Sharda Ruiz, Corey Rucker MD at OR [facility] Uterus [employer] 05/03/2017 [id number] / / [id number] documented as of this encounter Visit Diagnoses [...] Power of Attor benoit? No Care Teams Audiovisual Lead Technician Relationship Specialty Start Date End Date Melissa Cruz, AYLAC [address] [place] [phone] PCP - General Physician Boats Renter 09/29/24 documented as of this encounter
--- OUTSIDE RECORDS SUMMARY | 2024-12-08 15:12 | External Medical Summary | Summary of Care ---
Author Name Unknown Organization [facility] Address [address] [place] [address] Phone [phone] Care Team Providers Care Purchaser Name Role Phone Melissa Cruz PA-C Primary Care Provider +1- [phone] Reason for Visit * Reason Comments eRx-Medication Refill Encounter Details Date Type Department Care Team (Late st Contact Info) Description 11/02/2024 Refill [facility] [address] [place] [phone] Melissa Cruz PA-C [address] [place] [address] Vitamin D deficiency Allergies [...] EVERY DAY IN THE MORNING 90 Capsule 11/04/19 25 Active Vitamin D3 50 MCG (2000 [...] (HEPLISAV-B) 09/16/2024 Pneumococcal Conjugate Vacci ne, 20-valent ([id number]) 12/04/2022 Pneumococcal Polysaccharide PPV23 (Pneumovax) 05/06/2011 Seasonal [...] Telephone Encounter - Elizabeth Butterfield MD - 11/03/2024 1:59 PM EDT Signed Prescriptions: Disp Refills Vitamin D3 50 MCG (2000 UT) Oral Capsule 90 Cap*0 Sig: TAKE 1 CAPSULE BY MOUTH EVERY DAY IN THE MORNING Authorizing Provider: ELIZABETH BUTTERFIELD * Telephone Encounter - Christina Cuadra LPN - 11/03/2024 8:40 AM EDT Pending Prescriptions: Disp Refills Vitamin D3 50 MCG (2000 UT) Oral Capsule [*90 Cap*0 Sig: TAKE 1 CAPSULE BY MOUTH EVERY DAY IN THE MORNING * Telephone Encounter - Christina Cuadra LPN - 11/03/2024 8:40 AM EDT Did you pend patient's preferred pharmacy and medication before forwarding?yes Pharmacy: [id number] Pending Prescriptions: Disp Refills Vitamin D3 50 MCG (2000 UT) Oral Capsule *90 Cap*0 Sig: TAKE 1 CAPSULE BY MOUTH EVERY DAY IN THE MORNING Last Visit: 09/16/2024 (in office), Visit date not found (telemedicine) Next Visit: 11/17/2024 If no future appointments scheduled, and last appointment is greater than a year ago, please schedule patient for a follow-up appointment Last date the medication was ordered: 08/08/24 Is this request for a controlled substance?No [...] is available upon request. Patient Phone Numbers mobile [phone] Labs: Lab Results Component Value Date/Time CREAT [...] * Telephone Encounter - Daxa Lucio - 11/02/2024 4:07 AM EDTPending Prescriptions: Disp Refills Vitamin D3 50 MCG (1999 UT) Oral Capsule [*90 Cap*0 Sig: TAKE 1CAPSULE BY MOUTH EVERY DAY IN THE MORNING documented in this encounter Plan of Treatment Upcoming Encounters Date Type Department Care Team (Latest Contact Info) Description 11/04/2024 1:00 PM EDT Appointment Radiology, [address] [place] [address] 11/07/2024 10:30 AM EDT Nurse Only Wound Care, [address] [place] [address] [facility], Nurse Wound Care [address] [place] [address] [place] [address] 11/11/2024 10:30 AM EDT Nurse Only Wound Care, [address] [place] [address] [facility], Nurse Wound Care [address] [place] [address] 11/14/2024 10:30 AM EDT Nurse Only Wound Care, [address] [address] [facility], Nurse Wound Care [address] [place] [address] 11/17/2024 2:00 PM EDT Office Visit [facility] [address] [place] [address] [place] Coleman CRNP [address] [place] [phone] 11/18/2024 11:20 AM EDT Office Visit Wound Care, [address] [address] Yuriy Hilario MD 27 [place] [address] 11/19/2024 11:00 AM EDT Office Visit Orthopaedics, [facility] [address] [facility] Juan Carlos [address] [place] [address] Wilian Augustin DO [address] [place] [phone] 11/27/2024 10:00 AM EDT Office Visit PROPERTY MAN Urology [facility] [address] [place] [address] Cem Madrigal MD [address] [place] [address] 12/04/2024 1:20 PM EDT Office Visit [facility] [address] [place] [phone] Melissa Cruz PA-C [address] [place] [phone] 12/09/2024 9:30 AM EDT Telemedicine Sleep Disorders Center, [place] 126 [facility] [address] Jordan Arrieta MD 126 [facility] [place] [address] 12/09/2024 1:00 PM EDT Appointment Cardiac Studies, [facility] 400 [facility] [place] [address] 01/23/2025 10:09 AM EDT Hospital Encounter OR [facility], Operating Room, [facility] - 4th Floor [address] [place] [address] Joel Truong MD [address] [place] [address] 01/23/2025 10:09 AM EDT - 01/23/2025 10:53 AM EDT Surgery OR [facility], Operating Room, [facility] - 4th Floor [address] [place] [address] Joel Truong MD [address] [place] [address] COLONOSCOPY FLEXIBLE PROXIMAL DIAGNOSTIC 01/26/2025 3:30 PM EDT Office Visit Cardiology, [place] [address] [place] [address] Geovanna Patel PA-C 400 [facility] [place] [address] Scheduled Procedures Name Priority Associated Diagnoses Date/Ti [...] this encounter Medical Devices Implanted Type Area Events And Promotions Assistant Device Identifier Shelf Expiration Date Model / Serial / Lot Device Perm Cntrl [id number] - [id number] Implanted:Qty: 2 on 09/27/2015 by Sharda Ruiz, Corey Rucker MD at OR [facility] Uterus [employer] 05/03/2017 [id number] / / [id number] documented as of this encounter Visit Diagnoses [...] Power of Attor benoit? No Care Teams Purchaser Relationship Specialty Start Date End Date Melissa Cruz PA-C [address] [place] [address] PCP - General Physician Salesperson Household Appliances 09/29/24 documented as of this encounter
--- OUTSIDE RECORDS SUMMARY | 2024-12-08 15:13 | External Medical Summary | Summary of Care ---
Author Name Unknown Organization [facility] Address [address] [place] [address] Phone [phone] Care Team Providers Care Oral Pathologist Name Role Phone Melissa Cruz Jair FONSECA Primary Care Provider +1- [phone] Reason for Visit * Reason Comments Wound Care BLE -- WOUNDS Encounter Details Date Type Department Care Team ([facility] st Contact Info) Description 10/23/2024 10:30 AM EDT Nurse Only Wound Care, [facility] [address] [place] [address] [facility], Nurse Wound Care [address] [place] [address] Wound Care (BLE -- WOUNDS ) Allergies Active Allergy Reactions Criticality Noted Date Comments Aspirin 01/27/2014 Increased bleeding documented as of this encounter (statuses as of 10/23/2024) Medications traZODone (DESYREL) 50 MG Tablet Take [...] as of this encounter (statuses as of 10/23/2024) Active Problems Problem Noted Date Diagnosed Date [...] as of this encounter (statuses as of 10/23/2024) Resolved Problems Problem Noted Date Diagnosed Date [...] as of this encounter (statuses as of 10/23/2024) Immunizations Name Administration Dates Next Due HEPATITIS B VACCINE, RECOMB, 20 MCG/ML, ADULT (HEPLISAV-B) 09/16/2024 Pneumococcal Conjugate Vacci ne, 20-valent ([id number]) 12/04/2022 Pneumococcal Polysaccharide PPV23 (Pneumovax) 05/06/2011 Seasonal [...] * Patient Instructions* Megha López, ELIZA - 10/23/2024 10:26 AM EDT Discharge Instructions: Unna Boot You [...] Nursing Notes * Megha López LPN - 10/23/2024 10:23 AM EDT Assisted to sit safely on exam seating from w/c with one assist. Noted to have no Filiberto Wraps to lower legs -- she had no help for this. -- Stated RLE - coban came down the other day - UNNA stayed up so did not take off till this morning.Left all dressings in place to RLE . Since only the Coban came off. Mica was again educated when the Unna Boots come down or off ,she should take all off, wash legs and do daily treatments to her wounds. Filiberto to lower legs to keep compression to legs. Dressingsto RLE are from visit earlier in week. Drainage was moderate serosanguinous and pale green tinge aswell-- wound beds noted with thick bio burden to most inner wounds. No photos this date due to previously completed this week. -- LLE dressings were changed - yesterday. All noted to have moderate amount of serosanguinous drainage with slight pale green tinge to these. Wounds then legs / feet washed with soap and water towel dried tolerated well. Dressings / treatment reapplied as follows by this ELIZA and TERMINAL PRESS OPERATOR- N.P. RLE-- Calmoseptine to jael-wound tissue -- Vaseline to wound beds all covered with Allevyn gentle foam pads -- ABD Pads - secured per her request with Medipore tape. Kerlix from toes to cover dressings as well -- buttressed with ABD pads at ankle and knee folds to help with form of leg to support Unna boot as long as we can keep this in place. Surgilast #5 then socks and sneakers. Assisted to exit exam seating safely then seated in w/c and propelled to check out -- aware of safety precautions for Unna boots see patient education section of this note. documented in this encounter Plan of Treatment Upcoming Encounters Date Type Department Care Team (Late st Contact Info) Description 10/24/2024 10:00 AM EDT [facility] [place] [facility] [address] Darnell Boggs [facility] [address] [facility] [address] 10/28/2024 10:30 AM EDT Nurse Only Wound Care, [address] [address] [facility], Nurse Wound Care [address] [place], [place] [address] [address] 10/29/2024 10:00 AM EDT Telemedicine Pharmacy, [place] [address] [place] [address] [place] [address] 10/30/2024 2:00 PM EDT [facility] [address] [place] [address] [place] Coleman CRNP [address] [place] [address] 10/31/2024 10:30 AM EDT Nurse Only Wound Care, [address] [address] [facility], Nurse Wound Care [address] [place], [place] [address] [address] 11/04/2024 11:30 AM EDT Nurse Only Wound Care, [address] [address] [facility], Nurse Wound Care [address] [place], [place] [address] [address] 11/04/2024 1:00 PM EDT Appointment Radiology, [address] [address] 11/07/2024 10:30 AM EDT Nurse Only Wound Care, [address] [place] [address] [facility], Nurse Wound Care [address] [place] [address], [place] [address] 11/11/2024 10:30 AM EDT Nurse Only Wound Care, [address] [place] [address] [facility], Nurse Wound Care [address] [place] [address] 11/14/2024 10:30 AM EDT Nurse Only Wound Care, [address] [place] [address] [facility], Nurse Wound Care [address] [place] [address] 11/18/2024 11:20 AM EDT Office Visit Wound Care, [address] [place] [address] Yuriy Hilario MD [address] [facility] [place] [address] 11/19/2024 11:00 AM EDT Office Visit Orthopaedics, [facility] [address] [facility] Juan Carlos [address] [place] [address], [place] [address] Wilian Augustin DO [address] [place] [phone] 11/27/2024 10:00 AM EDT Office Visit [facility] [address] [address] Cem Madrigal MD [address] [place] [address] 12/04/2024 1:20 PM EDT [facility] [address] [place] [phone] Melissa Cruz PA-C [address] [place] [address] 01/23/2025 10:09 AM EDT Hospital Encounter OR [facility], Operating Room, [facility] - 4th [facility] [phone] Joel Truong MD [address] [place] [address] 01/23/2025 10:09 AM EDT - 01/23/2025 10:53 AM EDT Surgery OR [facility], Operating Room, [facility] - 4th Floor [facility] [place] [address] Joel Truong MD [address] [place] [address] COLONOSCOPY FLEXIBLE PROXIMAL DIAGNOSTIC Scheduled Procedures Name [...] this encounter Medical Devices Implanted Type Area Certified Nurse Midwife Device Identifier Shelf Expiration Date Model / Serial / Lot Device Perm Cntrl [id number] - [id number] Implanted:Qty: 2 on 09/27/2015 by Sharda Ruiz, Corey Rucker MD at OR [facility] Uterus [employer] 05/03/2017 [id number] / / [id number] documented as of this encounter Visit Diagnoses [...] Power of Attor benoit? No Care Teams Oral Pathologist Relationship Specialty Start Date End Date Melissa Cruz PA-C [address] [place] [address] PCP - General Physician Digital Media Producer 09/29/24 documented as of this encounter
--- OUTSIDE RECORDS SUMMARY | 2024-12-08 15:13 | External Medical Summary | Summary of Care ---
Author Name Unknown Organization [facility] Address [address] [place] [address] Phone [phone] Care Team Providers Care Ornamental Metal Erector Name Role Phone Melissa Cruz Chang AGUILAC Primary Care Provider +1- [phone] Reason for Referral * Evaluate & Treat - Unlimited Visits (Within 10 days (routine)) - Pending Review Specialty Diagnoses / Procedures Referred By Phylicia zambrano Referred To Contact Sleep Medicine / Sleep Disorders Diagnoses JORGE A (obstructive sleep apnea) Darnell Boggs DO [address] [place] [address] Phone: tel: fax: Referral ID Status Reason Start Date Expiration Date Visits Requested Visits Authorized [id number] Pending Review Specialty Services Required 10/24/2024 2 2 Question Answer Referral Priority Within 10 days (routine) [facility] Sleep Apnea Testing and Management Does the patient snore and/or gasp at night or has been told they stop breathing at night? Yes, document patient's symptoms in progress note * Precert (Diagnostic Medical) (Within 10 days (routine)) - Pending Review Specialty Diagnoses / Procedures Referred By Phylicia zambrano Referred To Contact Cardiac Studies Diagnoses SVT (supraventricular tachycardia) (HCC) Procedures ECHO, COMPLETE (2D), TRANS-THORACIC Darnell Boggs DO [address] [facility] [address] Phone: tel: fax: Referral ID Status Reason Start Date Expiration Date Visits Requested Visits Authorized [id number] Pending Review Precert 10/24/[phone] Reason for Visit * Reason Comments NEW PATIENT * Evaluate & Treat - Unlimited Visits (Within 10 days (routine)) - Closed Specialty Diagnoses / Procedures Referred By Phylicia zambrano Referred To Contact Cardiovascular Medicine / Cardiology Diagnoses Heart palpitations Eneida Garza PA-C Phone: tel: fax: Referral ID Status Reason Start Date Expiration Date V isits Requested Visits Authorized [id number] Closed Specialty Services Required 03/11/[phone] Encounter Details Date Type Department Care Team (Late st Contact Info) Description 10/24/2024 10:00 AM EDT Office Visit Marilee Montoya [address] [place] [address] Darnell Boggs DO [address] [place] [address] SVT (supraventricular tachycardia) ([facility])*; JORGE A (obstructive sleep apnea) Allergies Active Allergy Reactions Criticality Noted Date Comments Aspirin 01/27/2014 Increased bleeding documented as of this encounter (statuses as of 10/24/2024) Medications traZODone (DESYREL) 50 MG Tablet Take [...] Take 2 Capsules by mouth once. Active Nitrofurantoin Macrocrystal 50 MG Oral Capsule (Macrodantin) Take 1 Capsule by mouth in the morning and 1 Capsule at noon and 1 Capsule in the evening and 1 Capsule before bedtime. Do all this for 7 days. Until gone. 28 Capsule 5 10/25/19 25 Discontin ued(Medic ation List Clean Up) documented as of this encounter (statuses as of 10/24/2024) Active Problems Problem Noted Date Diagnosed Date [...] as of this encounter (statuses as of 10/24/2024) Resolved Problems Problem Noted Date Diagnosed Date [...] as of this encounter (statuses as of 10/24/2024) Immunizations Name Administration Dates Next Due HEPATITIS B VACCINE, RECOMB, 20 MCG/ML, ADULT (HEPLISAV-B) 09/16/2024 Pneumococcal Conjugate Vacci ne, 20-valent ([id number]) 12/04/2022 Pneumococcal Polysaccharide PPV23 (Pneumovax) 05/06/2011 Seasonal [...] No 09/16/2024 Does the household have a unm cancer centerlar source of income? (Household - for [...] Sign Reading Time Taken Comments Blood Pressure 116/72 10/24/2024 9:41 AM EDT Pulse 84 10/24/2024 9:41 AM EDT Temperature - - Respiratory Rate - - Oxygen Saturation - - Inhaled Oxygen Concentration - - Weight 154.1 kg (339 lb 12.8 oz) 10/24/2024 9:41 AM EDT Height 149.9 cm (4' 11") 10/24/2024 9:41 AM EDT Body Mass Index 68.63 10/24/2024 9:41 AM EDT documented in this encounter Progress Notes * Darnell Boggs DO - 10/24/2024 9:51 AM EDT Cardiology Office Visit HPI: 49 year old female with past medical history of Bipolar disorder Depression Asthma Former smoker JORGE A Patient presents for evaluation of palpitations. Patient states that a few months ago she was having symptoms of palpitations which he describes as a sensation of skipped beat lasting for few secondsto few minutes and resolving on their own. She has no other associated symptoms with the palpitations. She denies chest pain, dyspnea, orthopnea, PND, or syncope. She has chronic lower extremity edema with wounds from chronic lymphedema. She states he has not had any palpitations in the last 2-3 months. Her ECG done on 03/11/2024 showed sinus rhythm with premature atrial contractions but no acuteischemic changes with QTC 431 milliseconds. Patient denies any energy drinks or illicit drug use. Zio monitor done on 04/02/2024 showed few brief episodes of SVT but no ventricular tachycardia no pauses or AV block or atrial fibrillation. Occasional PACs were noted with a burden of 2.0 percent. Family history: Mother: Valve surgery Past Medical History: Diagnosis Date Anemia Asthma, [...] performed by Corey Robin Jr., MD at [facility] HYSTEROSCOPY;ENDOMETRIAL ABLAT N/A 09/27/2015 HYSTEROSCOPY ENDOMETRIAL ABLATION performed by Corey Robin Jr., MD at [facility] HYSTEROSCOPY;ENDOMETRIAL ABLAT N/A 06/11/2017 HYSTEROSCOPY ENDOMETRIAL ABLATION performed by Corey Robin Jr., MD at OR [facility] REMOVAL OF KIDNEY STONE, OVER 2CM 1996 REMOVE GALLBLADDER 1997 Social History Socioeconomic History Marital status: Single Spouse name: Not on file Number of children: 0 Years of education: Not on file Highest education level: Not on file Occupational History Occupation: disabled Tobacco Use Smoking status: Former Current packs/day: 0.00 Average packs/day: 1 pack/day for 5.0 years (5.0 ttl pk-yrs) Types: Cigarettes Start date: 06/06/2007 Quit date: 06/06/2012 Years since quittin.3 Passive exposure: Current Smokeless tobacco: Never Vaping [...] on file Food Insecurity: No Food Insecurity (09/16/2024) Food Insecurity Worried About Running Out of Food in the Last Year: Never true Ran Out of Food in the Last Year: Never true Do you need food for this week? (Adult - for ages 18 years and over): No Transportation Needs: No Transportation Needs (09/16/2024) Transportation Needs Do you have trouble getting a ride to medical visits or work? (Adult - for ages 18 years and over):Not on file Does your family have a hard time getting a ride to doctors’ visits? (Household - for ages 0-17 years): Not on file Has lack of transportation kept you from medical appointments, meetings, work, or from getting things needed for daily living? Check all that apply. (Adult - for ages 18 years and over): No Do you (or your family) have trouble finding or paying for a ride (transportation)? (Household - for ages 0-17 years): Not on file Social Connections: Socially Integrated (09/16/2024) Social Connections How often do you feel lonely or isolated from those around you? (Adult - for ages 18 years and over): Never Housing Stability: Low Risk (09/16/2024) Housing Stability Do you currently live in a prison or have no steady place to sleep [...] - for ages0-17 years): Not on file Review of patient's allergies indicates: Allergen Reactions Aspirin Increased bleeding Current Outpatient Medications Medication Sig Dispense Refill Tart Garcia 1200 MG Oral Capsule Take 3,600 mg by mouth once. Turmeric Complex/Black Pepper 5-1000 MG Oral Capsule (Black Pepper-Turmeric) Take 2 Capsules by mouth once. Memantine HCl 5 MG Oral Tablet Take 5 mg once daily for 7 days, then increase to 5 mg twice daily until seen again. For pain 60 Tablet 1 Pregabalin 150 MG Oral Capsule (Lyrica) Take 1 Capsule by mouth in the morning and 1 Capsule at noon and 1 Capsule before bedtime. 90 Capsule 0 Cetirizine HCl 10 MG Oral Tablet (ZyrTEC) TAKE 1 TABLET BY MOUTH EVERY DAY 90 Tablet 1 Potassium Chloride ER 10 MEQ Oral Tablet Extended Release TAKE 1 TABLET BY MOUTH EVERY DAY IN THE MORNING 90 Tablet 1 Vitamin D3 50 MCG (2000 UT) Oral Capsule TAKE 1 CAPSULE BY MOUTH EVERY DAY IN THE MORNING 90 Capsule 0 Montelukast Sodium 10 MG Oral Tablet (Singulair) Take 1 Tablet by mouth at bedtime. 90 Tablet 3 clonazePAM 1 MG Oral Tablet (KlonoPIN) Take 1 Tablet by mouth 2 times a day as needed for Anxiety. ARIPiprazole 15 MG Oral Tablet (Abilify) Take [...] NOSTRIL IN THE MORNING 16 mL 0 traZODone (DESYREL) 50 MG Tablet Take 1 Tab by mouth at bedtime as needed, may repeat once for Sleep. 30 Tab 0 Albuterol Sulfate HFA 108 (90 Base) MCG/ACT Inhalation Aerosol Solution 2 puffs every 4 hours as needed for shortness of breath/cough 18 g 2 No current facility-administered medications for this visit. Review of Systems: Constitutional: No fevers, sweats, or chills Neck: Negative and No known carotid artery disease Pulmonary: No shortness or breath, No history of pulmonary embolism, and No history of COPD Cardiac: No chest pain, No angina, No syncope, No palpitations, No orthopnea, and No paroxysmal nocturnal dyspnea GI/Abd: No melana or hematochezia Vascular: No claudication Hematologic: No abnormal bleeding Musculoskeletal: No pain, redness or swelling on the joints Skin: no rash Neurologic: No TIA symptoms, No CVA symptoms, No syncope, No near syncope, and No orthostasis, no seizures, no ICH BP 116/72 | Pulse 84 | Ht 1.499 m (4' 11") | Wt (!) 154.1 kg (339 lb 12.8 oz) | BMI 68.63 kg/m² | BSA 2.53 m² GEN: NAD, AAOX3 HEENT: No JVD CVS: Nl1 S1, S2 no murmurs Chest: CTA B/L No wheezing, rhonchi, rales Abd: Soft NT, ND, +BS Ext: Lower extremities wrapped in bandages with chronic lymphedema Assessment 1. Palpitations 2. Premature atrial contractions nonsustained SVT 3. JORGE A not on CPAP 4. Morbid obesity 5. Chronic lymphedema Plan - Patient doing well today. She denies chest pain, dyspnea, or syncope. She has not had any furtherepisodes of palpitations in the past 2-3 months. Discuss her Zio monitor findings with patient. Shehas nonsustained episodes of SVT. Her symptoms correlated with sinus rhythm with PACs. We discussedbeta-christopher therapy however given patient's not having any more symptoms there is risk of more side effects beta-christopher then benefit and mutual decision was made to hold off on beta-christopher treatment. Will schedule patient for echocardiogram to evaluate for any underlying structural heart disease. I am worried about patient's obstructive sleep apnea and patient states that she has not been using her CPAP for past few years. I have discussed with patient that untreated sleep apnea may lead to congestive heart failure and cardiac arrhythmias. Will place a referral for patient to establish care with medicine. - Return to clinic in 3 months, sooner if needed. documented in this encounter Nursing Notes * Chela Britt LPN - 10/24/2024 9:40 AM EDT Patient was identified by name and date of . Name: Mica Jimenez Date of : (1975). Examination Room: 7 Reason for Visit: Chief Complaint Patient presents with NEW PATIENT Interim Hospitalization(s): NO Interim Emergency room visit(s): NO Chest Pain: No SOB: Yes on exertion Problems/Concerns: Yes wt + 3lbs today, takes lasix only about once per week. Feels like she has retained fluid today. Last dose lasix 3 days ago. No more palpitations x 2-3 mo Medications reviewed and are up to date via: Patient's memory Would you like to sign up for [facility]? ALREADY ACTIVE Patient was instructed to not get up on the exam table/exam chair until directed and assisted by their provider; patient is to remain seated in the chair/ wheelchair/ exam table/ exam chair for fall prevention and safety reasons. Patient is aware to have assistance to step down off exam table/exam chair with personnel. Patient voiced full comprehension of instructions. Chela Britt LPN 9:40 AM 10/24/2024 documented in this encounter Plan of Treatment Upcoming Encounters Date Type Department Care Team (Late st Contact Info) Description 10/28/2024 10:30 AM EDT Nurse Only Wound Care, [address] [address] [facility], Nurse Wound Care [address] [place] [address] 10/29/2024 10:00 AM EDT Telemedicine Pharmacy, [place] [address] [place] [address] [place] [facility] [address] [place] [address] 10/30/2024 2:00 PM EDT Office Visit [facility] [address] [place] [address] [place] Coleman CRNP [address] [place] [address] 10/31/2024 10:30 AM EDT Nurse Only Wound Care, [address], [place] [address] [place], Nurse Wound Care [address] [place], [place] [address] [address] 11/04/2024 11:30 AM EDT Nurse Only Wound Care, [address], [place] [address] [facility], Nurse Wound Care [address] [place] [address], [place] [address] 11/04/2024 1:00 PM EDT Appointment Radiology, [address], [place] [address] 11/07/2024 10:30 AM EDT Nurse Only Wound Care, [address], [place] [address] [facility], Nurse Wound Care [address] [place] [address], [place] [address] 11/11/2024 10:30 AM EDT Nurse Only Wound Care, [address], [place] [address] [facility], Nurse Wound Care [address] [place], [place] [address] [address] 11/14/2024 10:30 AM EDT Nurse Only Wound Care, [address], [place] [address] [facility], Nurse Wound Care [address] [place], [place] [address] [address] 11/18/2024 11:20 AM EDT Office Visit Wound Care, [address], [place] [address] Yuriy Hilario MD [address] [place] [address] 11/19/2024 11:00 AM EDT Office Visit Orthopaedics, [facility] [address] [place] [address] Wilian Augustin, DO [address] [place] [phone] 11/27/2024 10:00 AM EDT Office Visit DIRECTOR OF RESPIRATORY THERAPY Urology [facility] [address] [place] [address] Cem Madrigal MD [address] [place] [address] 12/04/2024 1:20 PM EDT Office Visit [facility] [address] [place] [address] Melissa Cruz PA-C [address] [place] [id number] 12/09/2024 9:30 AM EDT Telemedicine [facility] [address] Jordan Arrieta MD [address] [place] [address] 12/09/2024 1:00 PM EDT Appointment Cardiac Studies, [address] [address] 01/23/2025 10:09 AM EDT Hospital Encounter OR [facility], Operating Room, [facility] - 4th Floor [address] [place] [phone] Joel Truong MD [address] [place] [address] 01/23/2025 10:09 AM EDT - 01/23/2025 10:53 AM EDT Surgery OR [facility], Operating Room, [facility] - 4th Floor [address] [place] [address] [place] [phone] Joel Truong MD [address] [place] [address] COLONOSCOPY FLEXIBLE PROXIMAL DIAGNOSTIC 01/26/2025 3:30 PM EDT Office Visit Cardiology, [place] [address] [place] [address] Geovanna Patel PA-C [address] [place] [address] Scheduled Orders Name Type Priority Associated Diagnoses Orde r Schedule ECHO, COMPLETE (2D), TRANS-THORACIC Echocardiology Routine SVT (supraventricular tachycardia) (HCC) Expected: 10/24/2024 (Approximate), Expires: 11/24/2026 Scheduled Procedures Name Priority Associated Diagnoses Date/Ti [...] this encounter Medical Devices Implanted Type Area Gear Milling Machine Set Up Operator Device Identifier Shelf Expiration Date Model / Serial / Lot Device Perm Cntrl [id number] Implanted:Qty: 2 on 09/27/2015 by Sharda Ruiz, Corey Rucker MD at OR [facility] Uterus [employer] 05/03/2017 [id number] / / [id number] documented as of this encounter Visit Diagnoses Diagnosis SVT (supraventricular tachycardia) (HCC)- Primary Other specified cardiac dysrhythmias JORGE A (obstructive sleep apnea) Obstructive sleep apnea (adult) (pediatric) Screening for [...] Power of Attor benoit? No Care Teams Ornamental Metal Erector Relationship Specialty Start Date End Date Melissa Cruz, AYLAC [address] [place] [address] PCP - General Physician Police Magistrate 09/29/24 documented as of this encounter
--- OUTSIDE RECORDS SUMMARY | 2024-12-08 15:13 | External Medical Summary | Summary of Care ---
Author Name Unknown Organization [facility] Address [address] [place] [address] Phone [phone] Care Team Providers Care Software Engineering Supervisor Name Role Phone CarylMelissa mansfield Chang FONSECA Primary Care Provider +1- [phone] Reason for Visit * Reason Comments Wound Care BLEDressings have st ayed in place since Sunday and unna boots removed mid Sunday mid morning due to sliding Encounter Details Date Type Department Care Team (Late st Contact Info) Description 10/07/2024 11:30 AM EST Nurse Only Wound Care, [facility] [address] [place] [address] [facility], Nurse Wound Care [address] [place] [address] Wound Care (BLE/Dressings have stayed in p... Allergies Active Allergy Reactions Criticality Noted Date [...] For pain 60 Tablet 1 5 Active Nitrofurantoin Macrocrystal 50 MG Oral Capsule [...] (HEPLISAV-B) 09/16/2024 Pneumococcal Conjugate Vacci ne, 20-valent ([id number]) 12/04/2022 Pneumococcal Polysaccharide PPV23 (Pneumovax) 05/06/2011 Seasonal [...] as of this encounter Nursing Notes * Isha Ruiz CMA - 10/07/2024 12:31 PM EST LLE wounds, leg, and foot washed with soap and water. Towel dried. Applied Vaseline to wound beds BLE LLE wound covered with Optifoam AG gentle per patient's request used 4 inch medipore used to try too keep foam in place ABD pad's placed anterior ankle and throughout left leg to help form a consistent shape Zinc unna boot applied LLE then coban layer Applied size 5 Surgilast to help protect the wrap from sticking to clothing. Assisted with sock andshoe. * Megha López LPN - 10/07/2024 12:19 PM EST Provided reinforced need to ensure when Unna Boots come off the open wounds to upper legs be treated daily as well. I reminded her, this was her recommendations from , as well as Filiberto Wraps to her legs replacing Unna Boots for compression. Mica stated she will follow these guidelines . I let her know we were making good progress and don't want to loose it. She then explained to the NET SOFTWARE ENGINEER - Student that how she cleanses her wounds at home and process of care she provided. Provided Provided dressing to Right leg this date while Carlito BETTS did left. Calmoseptine to jael wound tissue -- Vaseline to wound bed -- Allevyn foam pads to cover then secured with Medipore tape per Mica's request. ABD to ankle -- and to buttress skin folds going up legto help gain form of leg to aide in support of Unna Z and coban. This was then covered with Surgilast #5. Assisted with sock and shoe then to transfer safely from Exam to w/c then propelled to check out. * Veda Jacobson CMA - 10/07/2024 11:38 AM EST Chief Complaint Patient presents with Wound Care BLE Dressings have stayed in place since Sunday and unna boots removed mid Sunday mid morning due to sliding Patient was instructed to not get up on the exam table/exam chair until directed and assisted by their provider; patient is to remain seated in the chair/ wheelchair/ exam table/ exam chair for fall prevention and safety reasons. Patient is aware to have assistance to step down off exam table/exam chair with personnel. Patient voiced full comprehension of instructions. Dressings removed - due to the length of time the dressings have been in place and the amount of exudate the wounds are macerated Wounds then legs and feet washed with soap and water and towel dried. Patient tolerated well documented in this encounter Plan of Treatment Upcoming Encounters Date Type Department Care Team (Late st Contact Info) Description 10/29/2024 10:00 AM EDT [facility] [address] [place] [address] [facility] [address] 10/30/2024 2:00 PM EDT Office Visit [facility] [address] [place] [address] [place] Coleman CRNP [address] [place] [address] 10/31/2024 10:30 AM EDT Nurse Only Wound Care, [address] [place] [address] [facility], Nurse [facility]ound Care 400 [facility] [address] 11/04/2024 11:30 AM EDT Nurse Only Wound Care, [address] [place] [address] [facility], Nurse Wound Care 400 [facility], [place] [address] 11/04/2024 1:00 PM EDT Appointment Radiology, [address], [place] [address] 11/07/2024 10:30 AM EDT Nurse Only Wound Care, [address] [place] [address] [facility], Nurse Wound Care [address] [place] [address], [place] [address] 11/11/2024 10:30 AM EDT Nurse Only Wound Care, [address] [place] [address] [facility], Nurse Wound Care 400 [place] [address] 11/14/2024 10:30 AM EDT Nurse Only Wound Care, [address] [place] [address] [facility], Nurse Wound Care [address] [place] [address], [place] [address] 11/18/2024 11:20 AM EDT Office Visit Wound Care, [address] [place] [address] Yuriy Hilario MD [address] [facility] [address] 11/19/2024 11:00 AM EDT Office Visit Orthopaedics, [facility] [address], [place] [address] Wilian Augustin DO [address] [place] [address] 11/27/2024 10:00 AM EDT Office Visit LAMP SHADES SUPERVISOR Urology [facility] [address] [place] [address] Cem Madrigal MD [address] [place] [address] 12/04/2024 1:20 PM EDT Office Visit [facility] [address] [place] [address] Melissa Cruz PA-C [address] [place] [address] 12/09/2024 9:30 AM EDT Telemedicine [facility] [place] [address] Jordan Arrieta MD 126 [place] [address] 12/09/2024 1:00 PM EDT Appointment Cardiac Studies, [address] [place] [address] 01/23/2025 10:09 AM EDT Hospital Encounter OR GL, Operating Room, [place] [facility] Floor [address] [place] [address] [place] [address] Joel Truong MD [address] [place] [address] 01/23/2025 10:09 AM EDT - 01/23/2025 10:53 AM EDT Surgery OR [facility], Operating Room, [place] - 4th Floor [address] [place] [address] [place] [address] Joel Truong MD [address] [place] [address] COLONOSCOPY FLEXIBLE PROXIMAL DIAGNOSTIC 01/26/2025 3:30 PM EDT Office Visit Cardiology, [address] [place] [address] Geovanna Patel PA-C 400 [facility] [place] [address] Scheduled Procedures Name Priority Associated Diagnoses Date/Ti [...] this encounter Medical Devices Implanted Type Area Polymerization Oven Operator Device Identifier Shelf Expiration Date Model / Serial / Lot Device Perm Cntrl [id number] - [id number] Implanted:Qty: 2 on 09/27/2015 by Sharda Ruiz, Corey Rucker MD at OR [facility] Uterus [employer] 05/03/2017 [id number] / / [id number] documented as of this encounter Advance Directives [...] Power of Attor benoit? No Care Teams Software Engineering Supervisor Relationship Specialty Start Date End Date Melissa Crzu PA-C [address] [place] [address] PCP - General Physician Insurance Salesperson 09/29/24 documented as of this encounter
--- OUTSIDE RECORDS SUMMARY | 2024-12-08 15:13 | External Medical Summary | Summary of Care ---
Author Name Unknown Organization [facility] Address [address] [place] [address] Phone [phone] Care Team Providers Care Bridge Ironworker Helper Name Role Phone Melissa Cruz PA-C Primary Care Provider +1- [phone] Reason for Visit * Reason Onset Date Comments Order Request 10/24/2024 DME for CPAP Mac monique Encounter Details Date Type Department Care Team (Late st Contact Info) Description 10/24/2024 Telephone [facility] [address] [place] [address] Melissa Cruz PA-C [address] [place] [address] Order Request (DME for CPAP Machine) Allergies Active Allergy Reactions Criticality Noted Date Comments Aspirin 01/27/2014 Increased bleeding documented as of this encounter (statuses as of 10/27/2024) Medications traZODone (DESYREL) 50 MG Tablet Take [...] as of this encounter (statuses as of 10/27/2024) Active Problems Problem Noted Date Diagnosed Date [...] as of this encounter (statuses as of 10/27/2024) Resolved Problems Problem Noted Date Diagnosed Date [...] as of this encounter (statuses as of 10/27/2024) Immunizations Name Administration Dates Next Due HEPATITIS B VACCINE, RECOMB, 20 MCG/ML, ADULT (HEPLISAV-B) 09/16/2024 Pneumococcal Conjugate Vacci ne, 20-valent (Demshhp39) 12/04/2022 Pneumococcal Polysaccharide PPV23 (Pneumovax) 05/06/2011 Seasonal [...] No 09/16/2024 Does the household have a [facility] source of income? (Household - for [...] Telephone Encounter - Latesha Sebastian OSA - 10/27/2024 10:01 AM EDT Faxed DME to [facility] and called pt. * Telephone Encounter - Melissa Cruz PA-C - 10/24/2024 5:09 PM EDT Signed. * Telephone Encounter - Haven Mack OSA - 10/24/2024 3:33 PM EDT Patient called to inform [place] Cruz that she needs a DME Order Request faxed to [facility] for CPAP Machine. Please contact patient mobile number when order has been faxed. documented in this encounter Plan of Treatment Upcoming Encounters Date Type Department Care Team (Late st Contact Info) Description 10/28/2024 10:30 AM EDT Nurse Only Wound Care, [address] [address] [facility], Nurse Wound Care [address] [place] [address] 10/29/2024 10:00 AM EDT Telemedicine Pharmacy, [place] 21 [place] [address] [place], [facility] [address] [place] [address] 10/30/2024 2:00 PM EDT Office Visit [facility] [address] [place] [address] [place] Coleman CRNP [address] [place] [address] 10/31/2024 10:30 AM EDT Nurse Only Wound Care, [address], [place] [address] [facility], Nurse Wound Care 400 [place] [address] 11/04/2024 11:30 AM EDT Nurse Only Wound Care, [address], [place] [address] [facility], Nurse Wound Care 400 [facility], [place] [address] 11/04/2024 1:00 PM EDT Appointment Radiology, [address], [place] [address] 11/07/2024 10:30 AM EDT Nurse Only Wound Care, [address], [place] [address] [facility], Nurse Wound Care 400 [place] [address] 11/11/2024 10:30 AM EDT Nurse Only Wound Care, [address], [place] [address] [facility], Nurse Wound Care [address] [place] [address], [place] [address] 11/14/2024 10:30 AM EDT Nurse Only Wound Care, [address], [place] [address] [facility], Nurse Wound Care [address] [place] [address], [place] [address] 11/18/2024 11:20 AM EDT Office Visit Wound Care, [address], [place] [address] Yuriy Hilario MD 27 [facility] [place] [address] 11/19/2024 11:00 AM EDT Office Visit Orthopaedics, [facility] [address] [facility] [address] [place] [address] Wilian Augustin, DO [address] [place] [address] 11/27/2024 10:00 AM EDT Office Visit NUCLEAR REACTOR TECHNICIAN Urology [facility] [address] [place] [address] Cem Madrigal MD [address] [place] [address] 12/04/2024 1:20 PM EDT Office Visit [facility] [address] [place] [address] Melissa Cruz PA-C [address] [place] [address] 12/09/2024 9:30 AM EDT Telemedicine [facility] [address] Jordan Arrieta MD 126 [place] [address] 12/09/2024 1:00 PM EDT Appointment Cardiac Studies, [address] [address] 01/23/2025 10:09 AM EDT Hospital Encounter OR GL, Operating Room, [facility] - 4th Floor [address] [place] [address] [place] [phone] Joel Truong MD [address] [place] [address] 01/23/2025 10:09 AM EDT - 01/23/2025 10:53 AM EDT Surgery OR [facility], Operating Room, [facility] - 4th Floor [address] [place] [address] [place] [address] Joel Truong MD [address] [place] [address] COLONOSCOPY FLEXIBLE PROXIMAL DIAGNOSTIC 01/26/2025 3:30 PM EDT Office Visit Cardiology, [place] [address] [place] [address] Geovanna Patel PA-C [address] [place] [address] Scheduled Procedures Name Priority Associated Diagnoses Date/Ti [...] this encounter Medical Devices Implanted Type Area Dry Wall Sprayer Device Identifier Shelf Expiration Date Model / Serial / Lot Device Perm Cntrl [id number] - [id number] Implanted:Qty: 2 on 09/27/2015 by Sharda Ruiz, Corey Rucker MD at OR [facility] Uterus [employer] 05/03/2017 [id number] / / [id number] documented as of this encounter Visit Diagnoses [...] Power of Attor benoit? No Care Teams Bridge Ironworker Helper Relationship Specialty Start Date End Date Melissa Cruz PA-C [address] [place] [phone] PCP - General Physician Linen Folder 09/29/24 documented as of this encounter
--- OUTSIDE RECORDS SUMMARY | 2024-12-08 15:13 | External Medical Summary | Summary of Care ---
Author Name Unknown Organization [facility] Address [address] [place] [address] Phone [phone] Care Team Providers Care Parts Department Manager Name Role Phone Melissa Cruz PA-C Primary Care Provider +1- [phone] Reason for Visit * Reason Onset Date Comments Order Request 10/24/2024 DME for CPAP Mac monique Encounter Details Date Type Department Care Team (Late st Contact Info) Description 10/24/2024 Telephone [facility] [address] [place] [address] [place] [address] Melissa Cruz PA-C [address] [place] [address] [place] [address] Order Request (DME for [...] (HEPLISAV-B) 09/16/2024 Pneumococcal Conjugate Vacci ne, 20-valent ([id number]) 12/04/2022 Pneumococcal Polysaccharide PPV23 (Pneumovax) 05/06/2011 Seasonal [...] No 09/16/2024 Does the household have a [facility] source of income? (Household - for ages [...] needs a DME Order Request faxed to [facility] for CPAP Machine. Please contact patient mobile number when order has been faxed. documented in this encounter Plan of Treatment Upcoming Encounters Date Type Department Care Team (Late st Contact Info) Description 10/28/2024 10:30 AM EDT Nurse Only Wound Care, [address] [place] [address] [facility], Nurse Wound Care [address] [place] [address] 10/29/2024 10:00 AM EDT Telemedicine Pharmacy, [place] [address] [facility] [place] [address] 10/30/2024 2:00 PM EDT Office Visit [facility] [address] [place] [address] [place] Coleman CRNP [address] [place] [address] [place] [address] 10/31/2024 10:30 AM EDT Nurse Only Wound Care, [address] [address] [facility], Nurse Wound Care [address] [place] [address] 11/04/2024 11:30 AM EDT Nurse Only Wound Care, [address], [place] [address] [facility], Nurse Wound Care [address] [place] [address], [place] [address] 11/04/2024 1:00 PM EDT Appointment Radiology, [address], [place] [address] 11/07/2024 10:30 AM EDT Nurse Only Wound Care, [address], [place] [address] [facility], Nurse Wound Care [address] [place] [address], [place] [address] 11/11/2024 10:30 AM EDT Nurse Only Wound Care, [address], [place] [address] [facility], Nurse Wound Care [address] [place] [address], [place] [address] 11/14/2024 10:30 AM EDT Nurse Only Wound Care, [address], [place] [address] [facility], Nurse Wound Care [address] [place] [address], [place] [address] 11/18/2024 11:20 AM EDT Office Visit Wound Care, [address], [place] [address] Yuriy Hilario MD [address] [place] [address] 11/19/2024 11:00 AM EDT Office Visit Orthopaedics, [facility] [address] [facility] [address] [place] [address] Wilian Augustin, DO [address] [place] [phone] 11/27/2024 10:00 AM EDT Office Visit VEGETABLE FARM WORKER Urology [address] [address] Cem Madrigal MD [address] [place] [address] 12/04/2024 1:20 PM EDT Office Visit [facility] [address] [place] [address] [place] [address] Melissa Cruz PA-C [address] [place] [address] [place] [address] 12/09/2024 9:30 AM EDT [facility] 126 [place] [address] Jordan Arrieta MD 126 [place] [address] 12/09/2024 1:00 PM EDT Appointment Cardiac Studies, [address] [place] [address] 01/23/2025 10:09 AM EDT Hospital Encounter OR GL, Operating Room, [facility] - 4th Floor 400 [facility] [place] [address] Joel Truong MD [address] [place] [address] 01/23/2025 10:09 AM EDT - 01/23/2025 10:53 AM EDT Surgery OR [facility], Operating Room, [facility] - 4th Floor [address] [place] [address] Joel Truong MD [address] [place] [address] COLONOSCOPY FLEXIBLE PROXIMAL DIAGNOSTIC 01/26/2025 3:30 PM EDT Office Visit Cardiology, [address] [place] [address] Geovanna Patel PA-C [address] [address] Scheduled Procedures Name Priority Associated Diagnoses Date/Ti [...] this encounter Medical Devices Implanted Type Area Welding Equipment Repairer Device Identifier Shelf Expiration Date Model / Serial / Lot Device Perm Cntrl [id number] - [id number] Implanted:Qty: 2 on 09/27/2015 by Sharda Ruiz, Corey Rucker MD at OR [facility] Uterus [employer] 05/03/2017 [id number] / / [id number] documented as of this encounter Visit Diagnoses [...] Power of Attor benoit? No Care Teams Parts Department Manager Relationship Specialty Start Date End Date Melissa Cruz PA-C [address] [place] [phone] PCP - General Physician Elementary Principal 09/29/24 documented as of this encounter
--- OUTSIDE RECORDS SUMMARY | 2024-12-08 15:13 | External Medical Summary | Summary of Care ---
Author Name Unknown Organization [facility] Address [address] [place] [address] Phone [phone] Care Team Providers Care Paraprofessional Aide Teacher Name Role Phone Melissa Cruz PA-C Primary Care Provider +1- [phone] Reason for Visit * Reason Onset Date Comments Order Request 10/24/2024 DME for CPAP Mac monique Encounter Details Date Type Department Care Team (Late st Contact Info) Description 10/24/2024 Telephone [facility] [address] [place] [address] Melissa Cruz PA-C [address] [place] [address] Order Request (DME for CPAP Machine) Allergies Active Allergy Reactions Criticality Noted Date Comments Aspirin 01/27/2014 Increased bleeding documented as of this encounter (statuses as of 10/25/2024) Medications traZODone (DESYREL) 50 MG Tablet Take [...] as of this encounter (statuses as of 10/25/2024) Active Problems Problem Noted Date Diagnosed Date [...] as of this encounter (statuses as of 10/25/2024) Resolved Problems Problem Noted Date Diagnosed Date [...] as of this encounter (statuses as of 10/25/2024) Immunizations Name Administration Dates Next Due HEPATITIS B VACCINE, RECOMB, 20 MCG/ML, ADULT (HEPLISAV-B) 09/16/2024 Pneumococcal Conjugate Vacci ne, 20-valent (Ahkrumu99) 12/04/2022 Pneumococcal Polysaccharide PPV23 (Pneumovax) 05/06/2011 Seasonal [...] No 09/16/2024 Does the household have a [facility] source of income? (Household - for [...] needs a DME Order Request faxed to [facility] Supp[facility] for CPAP Machine. Please contact patient mobile number when order has been faxed. documented in this encounter Plan of Treatment Upcoming Encounters Date Type Department Care Team (Late st Contact Info) Description 10/28/2024 10:30 AM EDT Nurse Only Wound Care, [address] [place] [address] [facility], Nurse Wound Care [address] [place] [address] 10/29/2024 10:00 AM EDT Telemedicine Pharmacy, [place] [address] [facility] [place] [address] 10/30/2024 2:00 PM EDT Office Visit [facility] [address] [place] [address] [place] Coleman CRNP [address] [place] [address] 10/31/2024 10:30 AM EDT Nurse Only Wound Care, [address] [address] [facility], Nurse Wound Care [address] [place] [address] 11/04/2024 11:30 AM EDT Nurse Only Wound Care, [address], [place] [address] [facility], Nurse Wound Care [address] [place] [address], [place] [address] 11/04/2024 1:00 PM EDT Appointment Radiology, [address], [place] [address] 11/07/2024 10:30 AM EDT Nurse Only Wound Care, [address], [place] [address] [facility], Nurse Wound Care [address] [place] [address], [place] [address] 11/11/2024 10:30 AM EDT Nurse Only Wound Care, [address], [place] [address] [facility], Nurse Wound Care [address] [place] [address], [place] [address] 11/14/2024 10:30 AM EDT Nurse Only Wound Care, [address], [place] [address] [facility], Nurse Wound Care [address] [place] [address], [place] [address] 11/18/2024 11:20 AM EDT Office Visit Wound Care, [address], [place] [address] Yuriy Hilario MD [address] [place] [address] 11/19/2024 11:00 AM EDT Office Visit Orthopaedics, [facility] [address] [facility] [address] [place] [address] Wilian Augustin, DO [address] [place] [phone] 11/27/2024 10:00 AM EDT Office Visit ROBOTYPE OPERATOR Urology [address] [address] Cem Madrigal MD [address] [place] [address] 12/04/2024 1:20 PM EDT Office Visit [facility] [address] [place] [address] Melissa Cruz PA-C [address] [place] [address] 12/09/2024 9:30 AM EDT [facility] 126 [place] [address] Jordan Arrieta MD [address] [place] [address] 12/09/2024 1:00 PM EDT Appointment Cardiac Studies, [address] [place] [address] 01/23/2025 10:09 AM EDT Hospital Encounter OR GL, Operating Room, [facility] - 4th Floor [address] [facility] [place] [phone] Joel Truong MD [address] [place] [address] 01/23/2025 10:09 AM EDT - 01/23/2025 10:53 AM EDT Surgery OR [facility], Operating Room, [facility] - 4th Floor [address] [place] [address] Joel Truong MD [address] [place] [address] COLONOSCOPY FLEXIBLE PROXIMAL DIAGNOSTIC 01/26/2025 3:30 PM EDT Office Visit Cardiology, [address] [place] [address] Geovanna Patel PA-C [address] [place] [address] Scheduled Procedures Name Priority Associated Diagnoses Date/Ti [...] encounter Medical Devices Implanted Type Area Water Regulator And Valve Repairer Device Identifier Shelf Expiration Date Model / Serial / Lot Device Perm Cntrl [id number] - [id number] Implanted:Qty: 2 on 09/27/2015 by Sharda Ruiz, Corey Rucker MD at OR [facility] Uterus [employer] 05/03/2017 [id number] / / [id number] documented as of this encounter Visit Diagnoses [...] Power of Attor benoit? No Care Teams Paraprofessional Aide Teacher Relationship Specialty Start Date End Date Melissa Cruz PA-C [address] [place] [address] PCP - General Physician Greige Goods Examiner 09/29/24 documented as of this encounter
--- OUTSIDE RECORDS SUMMARY | 2024-12-08 15:13 | External Medical Summary | Summary of Care ---
Author Name Unknown Organization [facility] Address [address] [place] [address] Phone [phone] Care Team Providers Care Chief Station Engineer Name Role Phone Melissa Cruz Chang FONSECA Primary Care Provider +1- [phone] Reason for Visit * Reason Comments Wound Care Biliateral leg wound s Encounter Details Date Type Department Care Team (Late st Contact Info) Description 10/20/2024 10:30 AM EDT Nurse Only Wound Care, [facility] [address] [place] [address] [facility], Nurse Wound Care [address] [place] [address] Wound Care (Biliateral leg wounds) Allergies Active Allergy Reactions Criticality Noted Date Comments Aspirin 01/27/2014 Increased bleeding documented as of this encounter (statuses as of 10/20/2024) Medications traZODone (DESYREL) 50 MG Tablet Take [...] as of this encounter (statuses as of 10/20/2024) Active Problems Problem Noted Date Diagnosed Date [...] as of this encounter (statuses as of 10/20/2024) Resolved Problems Problem Noted Date Diagnosed Date [...] as of this encounter (statuses as of 10/20/2024) Immunizations Name Administration Dates Next Due HEPATITIS B VACCINE, RECOMB, 20 MCG/ML, ADULT (HEPLISAV-B) 09/16/2024 Pneumococcal Conjugate Vacci ne, 20-valent ([id number]) 12/04/2022 Pneumococcal Polysaccharide PPV23 (Pneumovax) 05/06/2011 Seasonal [...] this encounter Patient Instructions * Patient Instructions* Isha Ruiz CMA - 10/20/2024 10:28 AM EDT Discharge Instructions: Unna Boot [...] Nursing Notes * Isha Ruiz CMA - 10/20/2024 10:22 AM EDT Chief Complaint Patient presents with Wound Care Biliateral leg wounds Patient was instructed to not get up on the exam table/exam chair until directed and assisted by their provider; patient is to remain seated in the chair/ wheelchair/ exam table/ exam chair for fall prevention and safety reasons. Patient is aware to have assistance to step down off exam table/exam chair with personnel. Patient voiced full comprehension of instructions. Patient arrived for today's visit with air open to wounds and no evidence of dressings recently applied. 4+ pitting edema was demonstrated to Mica the importance of compression she needs to be providing. Unna boot removed from right leg on Sunday. Unna boot on left leg had slid down to her ankle. She was educated on the importance of removing the wrap if it slides down. Visually pointed out 4+ pitting edema that the wrap had caused from it not being removed. Patient verbalized understanding. Wounds, legs, and feet washed with soap and water. Towel dried. Patient reported pain but tolerated. While photos were taken we pointed out the active weeping on her legs due to lack of compression and level of edema. Wound care order followed per Dr Hilario.Wound [...] to call with any questions or concerns. documented in this encounter Plan of Treatment Upcoming Encounters Date Type Department Care Team (Late st Contact Info) Description 10/23/2024 10:30 AM EDT Nurse Only Wound Care, [address] [address] [facility], Nurse Wound Care [address] [place] [address] [place] [address] 10/24/2024 10:00 AM EDT Office [address] Cardiology, [address] [address] Darnell Boggs DO 400 [facility] [address] 10/28/2024 10:30 AM EDT Nurse Only Wound Care, [address] [address] [facility], Nurse Wound Care [address] [place] [address] 10/29/2024 10:00 AM EDT [facility] [place] [facility] [address] [facility] [address] 10/30/2024 2:00 PM EDT Office Visit [facility] [address] [place] [address] [place] Coleman CRNP [address] [place] [address] 10/31/2024 10:30 AM EDT Nurse Only Wound Care, [address] [address] [facility], Nurse Wound Care [address] [place] [address] [place] [address] 11/04/2024 11:30 AM EDT Nurse Only Wound Care, [address] [address] [facility], Nurse Wound Care 400 [facility], [place] [address] 11/04/2024 1:00 PM EDT Appointment Radiology, [address], [place] [address] 11/07/2024 10:30 AM EDT Nurse Only Wound Care, [address] [place] [address] [facility], Nurse Wound Care [address] [place] [address], [place] [address] 11/11/2024 10:30 AM EDT Nurse Only Wound Care, [address] [place] [address] [facility], Nurse Wound Care [address] [place] [address] 11/14/2024 10:30 AM EDT Nurse Only Wound Care, [address] [place] [address] [facility], Nurse Wound Care 400 [place] [address] 11/18/2024 11:20 AM EDT Office Visit Wound Care, [address] [place] [address] Yuriy Hilario MD [address] [facility] [address] 11/19/2024 11:00 AM EDT Office Visit Orthopaedics, [facility] [address] [place] [address] Wilian Augustin DO [address] [place] [address] 11/27/2024 10:00 AM EDT Office Visit HOME ECONOMICS TEACHER Urology [address] [address] Cem Madrigal MD [address] [place] [address] 12/04/2024 1:20 PM EDT Office Visit [facility] [address] [place] [address] Melissa Cruz PA-C [address] [place] [address] 01/23/2025 10:09 AM EDT Hospital Encounter OR [facility], Operating Room, [facility] - 4th Floor 400 [facility] [place] [address] Joel Truong MD [address] [place] [address] 01/23/2025 10:09 AM EDT - 01/23/2025 10:53 AM EDT Surgery OR [facility], Operating Room, [facility] - 4th Floor 400 [facility] [place] [phone] Joel Truong MD [address] [place] [address] COLONOSCOPY FLEXIBLE PROXIMAL DIAGNOSTIC Scheduled Procedures Name [...] this encounter Medical Devices Implanted Type Area Floors Buffer Device Identifier Shelf Expiration Date Model / Serial / Lot Device Perm Cntrl [id number] - [id number] Implanted:Qty: 2 on 09/27/2015 by Sharda Ruiz, Corey Rucker MD at OR [facility] Uterus [employer] 05/03/2017 [id number] / / [id number] documented as of this encounter Visit Diagnoses [...] Power of Attor benoit? No Care Teams Chief Station Engineer Relationship Specialty Start Date End Date Melissa Cruz, AYLAC [address] [place] [address] PCP - General Physician Medical Record Consultant 09/29/24 documented as of this encounter
--- OUTSIDE RECORDS SUMMARY | 2024-12-08 15:14 | External Medical Summary | Summary of Care ---
Author Name Unknown Organization [facility] Address [address] [place] [address] Phone [phone] Care Team Providers Care Director Industrial Relations Name Role Phone CarylTy mansfieldanthony Downing PA-C Primary Care Provider +1- [phone] Reason for Visit * Reason Comments Wound Care BLE -- WOUNDS AND ED YANIRA Encounter Details Date Type Department Care Team (Late st Contact Info) Description 10/17/2024 10:30 AM EDT Nurse Only Wound Care, [facility] [address] [place] [address] [facility], Nurse Wound Care [address] [place] [address] Wound Care (BLE -- WOUNDS AND EDEMA) Allergies Active Allergy Reactions Criticality Noted Date Comments Aspirin 01/27/2014 Increased bleeding documented as of this encounter (statuses as of 10/17/2024) Medications traZODone (DESYREL) 50 MG Tablet Take [...] as of this encounter (statuses as of 10/17/2024) Active Problems Problem Noted Date Diagnosed Date [...] as of this encounter (statuses as of 10/17/2024) Resolved Problems Problem Noted Date Diagnosed Date [...] as of this encounter (statuses as of 10/17/2024) Immunizations Name Administration Dates Next Due HEPATITIS B VACCINE, RECOMB, 20 MCG/ML, ADULT (HEPLISAV-B) 09/16/2024 Pneumococcal Conjugate Vacci ne, 20-valent ([id number]) 12/04/2022 Pneumococcal Polysaccharide PPV23 (Pneumovax) 05/06/2011 Seasonal [...] * Patient Instructions* Megha López, ELIZA - 10/17/2024 11:44 AM EDT Discharge Instructions: Unna Boot You [...] Nursing Notes * Megha López LPN - 10/17/2024 10:07 AM EDT Assisted Mica to transfer safely from w/c to exam seating - aware to not rise unassisted for hersafety. Stated wraps did not slide down as far this time -so let them on .These were both slid off knee and resting in a mess at mid horn. We again reviewed need to place Filiberto wraps for compression once Unna boots have slid . Mica was educated to the same. She verbalized understanding. No dressings over wounds to E provided dressing from Sunday in place to left.Right leg wounds were dry left leg wound with moderate amount of Serosanguinous drainage noted. Reminded her that once unna boots slide from covering the dressings she needs to remove and cleansethese daily and apply treatment of Vaseline and Opticel foam pad. She agrees staining she does knowthis , thought it would be ok. Wounds then legs / feet washed with soap and water -- towel dried tolerated well. Demonstrated to new employees and Mica technique to washing wounds most effectively to remove the dried on bio-burden. I also explained once again to Mica when she lets the wounds dry out healing stops and with the treatment in place the wound beds stay soft - to encourage healing plus ease cleansing for us and her. She again states understanding and that it makes sense too. No photos taken as these were completed on Sunday -- BLE -- Wound beds with Vaseline -- Jaye woundstreated with Calmoseptine - wounds then covered with Opticel Foam pads - ABD Pads secured with 4" Medipore tape. ABD to posterior ankle and to buttress skin folds at knee and thighs all secured with Kerlix from toes to above knee. Unna boot is then applied protected with Surgilast - sock then sneakers -- assisted to W/C -- Review of Unna boot safety -- when to remove as well as doing daily [...] AM EDT Nurse Only Wound Care, [address] [address] [facility], Nurse Wound Care [address] [place] [address] 10/23/2024 10:30 AM EDT Nurse Only Wound Care, [address] [address] [facility], Nurse Wound Care [address] [place] [address] 10/24/2024 10:00 AM EDT Office Visit [facility] 400 [place] [address] Darnell Boggs DO [address] [place] [address] 10/28/2024 10:30 AM EDT Nurse Only Wound Care, [address] [address] [facility], Nurse Wound Care [address] [place] [address] 10/29/2024 10:00 AM EDT Telemedicine Pharmacy, [place] 21 [facility] [address] [address] [place] [address] 10/30/2024 2:00 PM EDT Office Visit [facility] [address] [place] [address] [place] Coleman CRNP [address] [place] [address] 10/31/2024 10:30 AM EDT Nurse Only Wound Care, [address], [place] [address] [facility], Nurse Wound Care 400 [place] [address] 11/04/2024 11:30 AM EDT Nurse Only Wound Care, [address], [place] [address] [facility], Nurse Wound Care 400 [facility], [place] [address] 11/04/2024 1:00 PM EDT Appointment Radiology, [address] [place] [address] 11/07/2024 10:30 AM EDT Nurse Only Wound Care, [address], [place] [address] [facility], Nurse Wound Care 400 [place] [address] 11/11/2024 10:30 AM EDT Nurse Only Wound Care, [address], [place] [address] [facility], Nurse Wound Care [address] [place] [address], [place] [address] 11/14/2024 10:30 AM EDT Nurse Only Wound Care, [address], [place] [address] [facility], Nurse Wound Care [address] [place] [address], [place] [address] 11/18/2024 11:20 AM EDT Office Visit Wound Care, [address], [place] [address] Yuriy Hilario MD [address] [place] [address] 11/19/2024 11:00 AM EDT Office Visit Orthopaedics, [facility] [address] [place] [address] [place] [address] Wilian Augustin, DO [address] [place] [address] 11/27/2024 10:00 AM EDT Office Visit BIOLOGICAL CHEMIST Urology [facility] [place] [address] [facility] [place] [address] Cem Madrigal MD [address] [place] [address] 12/04/2024 1:20 PM EDT Office Visit [facility] [address] [place] [address] Melissa Cruz PA-C [address] [place] [address] 01/23/2025 10:09 AM EDT Hospital Encounter OR [facility], Operating Room, [facility] [place] - 4th Floor [address] [facility] [place] [phone] Joel Truong MD [address] [place] [address] 01/23/2025 10:09 AM EDT - 01/23/2025 10:53 AM EDT Surgery OR [facility], Operating Room, [facility] - 4th Floor 400 [facility] [place] [address] Joel Truong MD [address] [place] [address] COLONOSCOPY FLEXIBLE PROXIMAL DIAGNOSTIC Scheduled Procedures Name [...] this encounter Medical Devices Implanted Type Area Cognos Consultant Device Identifier Shelf Expiration Date Model / Serial / Lot Device Perm Cntrl [id number] - [id number] Implanted:Qty: 2 on 09/27/2015 by Sharda Ruiz, Corey Rucker MD at OR [facility] Uterus [employer] 05/03/2017 [id number] / / [id number] documented as of this encounter Visit Diagnoses [...] of Attor benoit? No Care Teams Director Industrial Relations Relationship Specialty Start Date End Date Melissa Cruz PA-C [address] [place] [address] PCP - General Physician Textile Engineer 09/29/24 documented as of this encounter
--- OUTSIDE RECORDS SUMMARY | 2024-12-08 15:14 | External Medical Summary | Summary of Care ---
Author Name Unknown Organization [facility] Address [address] [place] [address] Phone [phone] Care Team Providers Care Casting Agent Name Role Phone Melissa Cruz Chang FONSECA Primary Care Provider +1- [phone] Reason for Visit * Reason Comments Wound Care BLE WOUNDS EDEMA Encounter Details Date Type Department Care Team ([facility] st Contact Info) Description 10/10/2024 11:00 AM EST Nurse Only Wound Care, [facility] [address] [place] [address] [facility], Nurse Wound Care [address] [place] [address] Wound Care (BLE WOUNDS EDEMA ) Allergies Active Allergy Reactions Criticality Noted Date Comments Aspirin 01/27/2014 Increased bleeding documented as of this encounter (statuses as of 10/10/2024) Medications traZODone (DESYREL) 50 MG Tablet Take [...] For pain 60 Tablet 1 5 Active documented as of this encounter (statuses as of 10/10/2024) Active Problems Problem Noted Date Diagnosed Date [...] as of this encounter (statuses as of 10/10/2024) Resolved Problems Problem Noted Date Diagnosed Date [...] as of this encounter (statuses as of 10/10/2024) Immunizations Name Administration Dates Next Due HEPATITIS B VACCINE, RECOMB, 20 MCG/ML, ADULT (HEPLISAV-B) 09/16/2024 Pneumococcal Conjugate Vacci ne, 20-valent ([id number]) 12/04/2022 Pneumococcal Polysaccharide PPV23 (Pneumovax) 05/06/2011 Seasonal [...] No 09/16/2024 Does the household have a [facility] source of income? (Household - for [...] * Patient Instructions* Megha López LPN - 10/10/2024 10:50 AM EST Discharge Instructions: Unna Boot You [...] Nursing Notes * Megha López LPN - 10/10/2024 10:49 AM EST Assisted to sit on exam seating aware to not rise unassisted for her safety. Review of medications - reveals newly started Tumeric -- unsure of strength will take picture of bottle so we can add nextweek. Also alert to look at wrap up section of visit note for unna boot safety too. Mica to day presented with no Filiberto Wraps on bilateral legs and only has dressing to Left medial wound site of Opticel Foam pad. This site continued to have layer of Calmoseptine to jael tissue as well. We have and continue to provide the education with each dressing change for her not to scrub tohard to remove this cream. As wash surface and what comes off fine. If any left that too is ok as will continue to provide protection to tissue. Per Mica the Unna boots last --left leg one day andRight leg - just came off today, and that is why no dressings to these. Wounds then legs / feet washed with soap and water -- towel dried tolerated well. Mica did statewounds to medial Right knee were "Ouchy" I did apologize if cleansing hurt as the sites were very dry and in need of cleansing since these were GLUE BONE CRUSHER. Reviewed need to continue Vinegar spray to most proximal fold of thigh as some sites are pink and fragile - tx in addition to keeping either gauze or yomi towel -- rolled t-shirt - something cotton to buttress this tissue keeping tissue dry. Dressings were reapplied as follows -- BLE-- Calmoseptine to jael wound tissue [...] Care Team (Late st Contact Info) Description 10/14/2024 10:30 AM EDT Nurse Only Wound Care, [address] [address] [facility], [facility] Care 400 [facility] [address] 10/17/2024 10:30 AM EDT Nurse Only Wound Care, [address] [address] [facility], Nurse Wound Care [address] [place], [place] [address] [address] 10/20/2024 10:30 AM EDT Nurse Only Wound Care, [address] [place] [address] [facility], Nurse Wound Care [address] [place], [place] [address] [address] 10/23/2024 10:30 AM EDT Nurse Only Wound Care, [address] [place] [address] [facility], Nurse Wound Care [address] [place], [place] [address] [address] 10/24/2024 10:00 AM EDT Office Visit Cardiology[address] [place] [address] Darnell Boggs DO 400 [facility] [address] 10/28/2024 10:30 AM EDT Nurse Only Wound Care, [address] [place] [address] [facility], Nurse Wound Care 400 [facility] [address] 10/29/2024 10:00 AM EDT Telemedicine [facility], [address] [place] [address] [facility] [place] [address] 10/31/2024 10:30 AM EDT Nurse Only Wound Care, [address], [place] [address] [facility], Nurse Wound Care [address] [place] [address], [place] [address] 11/04/2024 11:30 AM EDT Nurse Only Wound Care, [address], [place] [address] [facility], Nurse Wound Care [address] [place] [address], [place] [address] 11/04/2024 1:00 PM EDT Appointment Radiology, [address], [place] [address] 11/07/2024 10:30 AM EDT Nurse Only Wound Care, [address], [place] [address] [facility], Nurse Wound Care [address] [place] [address], [place] [address] 11/11/2024 10:30 AM EDT Nurse Only Wound Care, [address], [place] [address] [facility], Nurse Wound Care [address] [place] [address], [place] [address] 11/14/2024 10:30 AM EDT Nurse Only Wound Care, [address], [place] [address] [facility], Nurse Wound Care [address] [place] [address], [place] [address] 11/18/2024 11:20 AM EDT Office Visit Wound Care, [address], [place] [address] Yuriy Hilario MD 27 [facility] [address] 11/19/2024 11:00 AM EDT Office Visit Orthopaedics, [address] [place] [address] [place] [address] [place] [address] Wilian Augustin DO [address] [place] [id number] 11/27/2024 10:00 AM EDT Office Visit SIDE PANEL PADDER Urology [place] [address] [place] [address] Cem Madrigal MD [address] [place] [address] 12/04/2024 1:20 PM EDT [facility] Visit [facility] [address] [place] [address] Melissa Cruz PA-C [address] [place] [address] 01/23/2025 10:15 AM EDT Hospital Encounter OR [facility], Operating Room, [facility] - 4th Floor [address] [place] [phone] Joel Truong MD [address] [place] [address] 01/23/2025 10:15 AM EDT - 01/23/2025 10:59 AM EDT Surgery OR [facility], Operating Room, [facility] - 4th Floor [address] [place] [phone] Joel Truong MD [address] [place] [address] COLONOSCOPY FLEXIBLE PROXIMAL DIAGNOSTIC Scheduled Procedures Name Priority Associated Diagnoses Date/Ti me COLONOSCOPY FLEXIBLE PROXIMAL DIAGNOSTIC Screening for colon cancer 01/23/2025 10:15 AM EDT Health Maintenance Due Date Last Done Comments HPV/Co-Test 01/12/2006 Mammogram 06/06/2019 06/06/2018, 09/18/2016 Cologuard 01/12/2021 Colonoscopy 01/12/2021 12/02/2008 Colorectal Cancer Screening 01/12/2021 Fecal Occult Blood Test 01/12/2021 Sigmoidoscopy 01/12/2021 Cervical Cancer Screening 01/11/2024 Pap Smear 01/11/2024 01/10/2021, 10/05, 02/10/2009 COVID-19 Vaccine (1 - season) 2024 Hepatitis B Vaccine (2 [...] this encounter Medical Devices Implanted Type Area Bilingual Instructor Device Identifier Shelf Expiration Date Model / Serial / Lot Device Perm Cntrl [id number] - [id number] Implanted:Qty: 2 on 09/27/2015 by Sharda Ruiz, Corey Rucker MD at OR [facility] Uterus [employer] 05/03/2017 [id number] / / [id number] documented as of this encounter Visit Diagnoses [...] Power of Attor benoit? No Care Teams Casting Agent Relationship Specialty Start Date End Date Melissa Cruz PA-C [address] [place] [address] PCP - General Physician Tack Welder 09/29/24 documented as of this encounter
--- OUTSIDE RECORDS SUMMARY | 2024-12-08 15:14 | External Medical Summary | Summary of Care ---
Author Name Unknown Organization [facility] Address [address] [place] [address] Phone [phone] Care Team Providers Care Tree Specialist Name Role Phone Melissa Cruz PA-C Primary Care Provider +1- [phone] Reason for Referral * Evaluate & Treat - Unlimited Visits (Within 30 days (routine)) - Pending Review Specialty Diagnoses / Procedures Referred By Phylicia zambrano Referred To Contact HOME CARE / Home Care Diagnoses Neuropathy Ambulatory dysfunction Melissa Cruz PA-C [address] [place] [address] Phone: tel: fax: Referral ID Status Reason Start Date Expiration Date Visits Requested Visits Authorized [id number] Pending Review Specialty Services Required 10/08/2024 999 999 Question Answer Referral Priority Within 30 days (routine) Where should this appointment be scheduled? John Comments Documentation of Izeq-wy-Gjqq Encounter Addendum Patient Name: Mica Jimenez I certify that this patient is under my care and that I, or a nurse practitioner or physician's pet care assistant working with me, had a xqea-ot-oyyu encounter that meets the physician xulo-xg-nhbf encounter requirements with this patient on: 09/16/2024 The encounter with the patient was in whole, or in part, for the following medical condition, which is the primary reason for home health care (List medical condition): Gait dysfunction I certify that, based on my findings, the following services are medically necessary home health services: Physical Therapy To provide the following care/treatments: (All hospitalists not following the patient after discharge should complete this section): Strength Training Primary Care Physician to follow home care plan of care after discharge: Melissa Cruz PA-c My clinical findings support the need for the above services because: frequent falls Further, I certify that my clinical findings support that this patient is homebound (i.e. Absences from home require considerable and taxing effort and are for medical reasons or hinduism services or infrequently or of short duration when for other reason) because: Medical reasons Physician Signature: Date of Signature: Physician Printed Name: Charlotte Taylor RN * Social Care (Within 10 days (routine)) - Pending Review Specialty Diagnoses / Procedures Referred By Phylicia zambrano Referred To Contact Life Insurance Actuary Diagnoses Bipolar disorder, current episode depressed, moderate (HCC) PTSD (post-traumatic stress disorder) LYNSEY (generalized anxiety disorder) Severe episode of recurrent major depressive disorder, without psychotic features (HCC) Melissa Cruz PA-C [address] [place] [address] Phone: tel: fax: Referral ID Status Reason Start Date Expiration Date Visits Requested Visits Authorized [id number] Pending Review Specialty Services Required 10/08/2024 999 999 Question Answer Role Behavioral Health Life Insurance ActuaryDirector Of Training Health Life Insurance Actuary Referral Reason Depression (PHQ-9>10), Bipolar Referral Priority Within 10 days (routine) Where should this appointment be scheduled? [facility] Comments Is patient being transitioned from [facility] to Complex Case Management? No Reason for Visit * Reason Onset Date Comments Advice 10/06/2024 Encounter Details Date Type Department Care Team (Late st Contact Info) Description 10/06/2024 Telephone [facility], [place] [address] [place] [address] Melissa Cruz PA-C [address] [place] [address] Advice Allergies Active Allergy Reactions Criticality Noted Date Comments Aspirin 01/27/2014 Increased bleeding documented as of this encounter (statuses as of 10/09/2024) Medications traZODone (DESYREL) 50 MG Tablet Take [...] as of this encounter (statuses as of 10/09/2024) Active Problems Problem Noted Date Diagnosed Date [...] as of this encounter (statuses as of 10/09/2024) Resolved Problems Problem Noted Date Diagnosed Date [...] as of this encounter (statuses as of 10/09/2024) Immunizations Name Administration Dates Next Due HEPATITIS B VACCINE, RECOMB, 20 MCG/ML, ADULT (HEPLISAV-B) 09/16/2024 Pneumococcal Conjugate Vacci ne, 20-valent ([id number]) 12/04/2022 Pneumococcal Polysaccharide PPV23 (Pneumovax) 05/06/2011 Seasonal [...] Telephone Encounter - Leonarda Lofton OSA - 10/09/2024 11:26 AM EST Referral faxed to [facility] for PT. * Telephone Encounter - Cyrus Pradhan DO - 10/08/2024 11:58 AM EST Covering for PCP- referral signed. * Telephone Encounter - Charlotte Taylor RN - 10/07/2024 12:55 PM EST No Behavioral health CM, no showed appointment with Magdalena Lubin. Referral for home health PT and CM pended. Reason for Call: Advice Contact: [facility] Contact Type: Care Coordination Provider In-Basket: No Outcome: see abpove Face to face time spent with Patient (minutes): 0 Total Time including non face to face (minutes): 10 * Telephone Encounter - Melissa Cruz PA-C - 10/06/2024 2:28 PM EST Could you follow up this patient to see if this could be done through home health? And does she have behavioral health CM? Thanks! * Telephone Encounter - Andie Perez LPN - 10/06/2024 11:04 AM EST Deonna Chapincito calling, roommate Patient fell last week putting a heating pad on her shoulder Did not hit her head. Cat ran in front of her yesterday and she twisted her knee. Patient is going down hill again. Sits and sleeps all the time. She is asking if there is some place short term she could go for therapy strengthening and mental health? Last 2 or 3 years she has really gone down hill. She wasn't brushing her teeth, washing her hair, Asking for any suggestions. She would like a call back from Melissa. * Telephone Encounter - Cass Velasquez OSA - 10/06/2024 11:00 AM EST Reason for patient's call: Requesting to speak to a nurse in regards to a fall and then twisting her knee yesterday. Caller was transferred to [facility] at the nurse line. documented in this encounter Plan of Treatment Upcoming Encounters Date Type Department Care Team (Late st Contact Info) Description 10/10/2024 11:00 AM EST Nurse Only Wound Care, [address] [place] [address] [facility], Nurse Wound Care [address] [place], [place] [address] [address] 10/14/2024 10:30 AM EDT Nurse Only Wound Care, [address] [place] [address] [facility], Nurse Wound Care 400 [facility], [place] [address] 10/17/2024 10:30 AM EDT Nurse Only Wound Care, [facility] 400 [facility], [place] [address] [facility], Nurse Wound Care 400 [facility], [place] [address] 10/20/2024 10:30 AM EDT Nurse Only Wound Care, [facility] 400 [facility], [place] [address] [facility], Nurse Wound Care 400 [facility], [place] [address] 10/23/2024 10:30 AM EDT Nurse Only Wound Care, [address], [place] [address] [facility], Nurse Wound Care 400 [facility], [place] [address] 10/24/2024 10:00 AM EDT Office [address] Cardiology, [address] [address] Darnell Boggs DO 400 [facility] [address] 10/29/2024 10:00 AM EDT Telemedicine Pharmacy, [place] 21 [facility] [place] [address] [place] [facility] 21 [place] [address] 11/04/2024 1:00 PM EDT Appointment Radiology, [address] [id number] 11/19/2024 11:00 AM EDT Office Visit Orthopaedics, [facility] [address] [place] [address] Wilian Augustin, DO [address] [place] [address] 11/27/2024 10:00 AM EDT Office Visit ADMISSIONS DIRECTOR Urology [facility] 400 [facility] [place] [address] Cem Madrigal MD [address] [place] [address] 12/04/2024 1:20 PM EDT Office Visit [facility][1] [address] [place] [address] Melissa Cruz PA-C [address] [place] [address] 01/23/2025 10:15 AM EDT Hospital Encounter OR GL, Operating Room, [facility] - 4th Floor 400 [facility] [place] [address] Joel Truong MD [address] [place] [address] 01/23/2025 10:15 AM EDT - 01/23/2025 10:59 AM EDT Surgery OR [facility], Operating Room, [facility] 400 [facility] [place] [address] Joel Truong MD [address] [place] [address] COLONOSCOPY FLEXIBLE PROXIMAL DIAGNOSTIC Scheduled Procedures Name Priority Associated Diagnoses Date/Ti me COLONOSCOPY FLEXIBLE PROXIMAL DIAGNOSTIC Screening for colon cancer 01/23/2025 10:15 AM EDT Scheduled Referrals Name Type Priority Associated Diagnoses Orde r Schedule POPULATION HEALTH REFERRAL OP Referral Within 10 days (routine) Bipolar disorder, current episode depressed, moderate (HCC) PTSD (post-traumatic stress disorder) LYNSEY (generalized anxiety disorder) Severe episode of recurrent major depressive disorder, without psychotic features (HCC) Ordered: 10/08/2024 HOME HEALTH REFERRAL OP Referral Within 30 days (routine) Neuropathy Ambulatory dysfunction Ordered: 10/08/2024 Health Maintenance Due Date Last Done Comments [...] this encounter Medical Devices Implanted Type Area Byproducts Maker Device Identifier Shelf Expiration Date Model / Serial / Lot Device Perm Cntrl [id number] - [id number] Implanted:Qty: 2 on 09/27/2015 by Sharda Ruiz, Corey Rucker MD at OR [facility] Uterus [employer] 05/03/2017 [id number] / / [id number] documented as of this encounter Visit Diagnoses Diagnosis Bipolar disorder, current episode depressed, moderate (HCC)- Primary Bipolar I disorder, most recent episode (or current) depressed, moderate Neuropathy Mononeuritis of unspecified site Ambulatory dysfunction PTSD (post-traumatic stress disorder) Posttraumatic stress disorder LYNSEY (generalized anxiety disorder) Generalized anxiety disorder Severe episode of recurrent major depressive disorder, without psychotic features (HCC) Screening for colon cancer Special screening [...] Power of Attor benoit? No Care Teams Tree Specialist Relationship Specialty Start Date End Date Melissa Cruz PA-C [address] [place] [address] PCP - General Physician Health Service Worker 09/29/24 documented as of this encounter
--- OUTSIDE RECORDS SUMMARY | 2024-12-08 15:14 | External Medical Summary | Summary of Care ---
Author Name Unknown Organization [facility] Address [address] [place] [address] Phone [phone] Care Team Providers Care Textiles Printer Name Role Phone Melissa Cruz Chang FONSECA Primary Care Provider +1- [phone] Reason for Visit * Reason Onset Date Comments Appointment 10/07/2024 Encounter Details Date Type Department Care Team (Late st Contact Info) Description 10/07/2024 Telephone Wound Care, [facility] [address] [place], [place] [id number] Yuriy Hilario MD [address] [place], [place] [phone] Appointment Allergies Active Allergy Reactions Criticality Noted [...] again. For pain 60 Tablet 1 Active documented as of this encounter (statuses [...] (HEPLISAV-B) 09/16/2024 Pneumococcal Conjugate Vacci ne, 20-valent (Syieind35) 12/04/2022 Pneumococcal Polysaccharide PPV23 (Pneumovax) 05/06/2011 Seasonal [...] No 09/16/2024 Does the household have a [facility]ension [facility] hospital[facility] source of income? (Household - for [...] Telephone Encounter - Kalyn Rivera OSA - 10/10/2024 1:15 PM EST Appointment was scheduled at check out today. * Telephone Encounter - Kalyn Rivera OSA - 10/08/2024 8:25 AM EST LMOM for the patient to call back to reschedule the wound appointment with Dr. Hilario from 10/27/24 to a different date. Patient has a wound nurse appointment 10/10/24 and we can schedule this at that time. * Telephone Encounter - Venus Strong RN - 10/07/2024 4:06 PM EST Her appointment on the was with the doctor, he is not here on the . She can be rescheduledfor the next available appointment with Dr. Hilario if she cannot make it on the . * Telephone Encounter - Franchesca Maldonado OSA - 10/07/2024 3:33 PM EST Mica called and she needs to reschedule her appt scheduled for 3-24. She is asking for 3-25 if possible. Please call her back at [phone]. documented in this encounter Plan of Treatment Upcoming Encounters Date Type Department Care Team (Late st Contact Info) Description 10/14/2024 10:30 AM EDT Nurse Only Wound Care, [address] [address] [facility], Nurse Wound Care [address] [place] [address] [place] [address] 10/17/2024 10:30 AM EDT Nurse Only Wound Care, [address] [place] [address] [facility], Nurse Wound Care [address] [place], [place] [address] [address] 10/20/2024 10:30 AM EDT Nurse Only Wound Care, [address], [place] [address] [facility], Nurse Wound Care 400 [facility], [place] [address] 10/23/2024 10:30 AM EDT Nurse Only Wound Care, [address], [place] [address] [facility], Nurse Wound Care 400 [facility], [place] [address] 10/24/2024 10:00 AM EDT Office Visit Cardiology, [address], [place] [address] Darnell Boggs DO 400 [facility], [place] [address] 10/28/2024 10:30 AM EDT Nurse Only Wound Care, [address], [place] [address] [facility], Nurse Wound Care [address] [place] [address], [place] [address] 10/29/2024 10:00 AM EDT [facility]medicine Pharmacy, [place] [facility] [address] [facility] [address] 10/31/2024 10:30 AM EDT Nurse Only Wound Care, [address], [place] [address] [facility], Nurse Wound Care [address] [place] [address], [place] [address] 11/04/2024 11:30 AM EDT Nurse Only Wound Care, [address], [place] [address] [facility], Nurse Wound Care 400 [facility], [place] [address] 11/04/2024 1:00 PM EDT Appointment Radiology, [address] [place] [address] 11/07/2024 10:30 AM EDT Nurse Only Wound Care, [address] [place] [address] [facility], Nurse Wound Care [address] [place] [address], [place] [address] 11/11/2024 10:30 AM EDT Nurse Only Wound Care, [address] [place] [address] [facility], Nurse Wound Care [address] [place] [address] 11/14/2024 10:30 AM EDT Nurse Only Wound Care, [address] [place] [address] [facility], Nurse Wound Care [address] [place] [address], [place] [address] 11/18/2024 11:20 AM EDT Office Visit Wound Care, [address] [place] [address] Yuriy Hilario MD [address] [place] [address] 11/19/2024 11:00 AM EDT Office Visit Orthopaedics, [facility] [address] [facility] Juan [address] [place] [address] Wilian Augustin DO [address] [place] [address] 11/27/2024 10:00 AM EDT Office Visit ROUGH RICE TENDER Urology [address] [address] Cem Madrigal MD [address] [place] [address] 12/04/2024 1:20 PM EDT Office Visit [facility] [address] [place] [address] Melissa Cruz PA-C [address] [place] [address] 01/23/2025 10:15 AM EDT Hospital Encounter OR [facility], Operating Room, [facility] - 4th Floor 400 [place] [address] Joel Truong MD [address] [place] [address] 01/23/2025 10:15 AM EDT - 01/23/2025 10:59 AM EDT Surgery OR [facility], Operating Room, [facility] - 4th Floor 400 [facility] [place] [phone] Joel Truong MD [address] [place] [address] COLONOSCOPY FLEXIBLE PROXIMAL DIAGNOSTIC Scheduled Procedures Name [...] this encounter Medical Devices Implanted Type Area Physical Therapist Center Manager Device Identifier Shelf Expiration Date Model / Serial / Lot Device Perm Cntrl [id number] - [id number] Implanted:Qty: 2 on 09/27/2015 by Sharda Ruiz, Corey Rucker MD at OR [facility] Uterus [employer] 05/03/2017 [id number] / / [id number] documented as of this encounter Advance Directives [...] Power of Attor benoit? No Care Teams Textiles Printer Relationship Specialty Start Date End Date Melissa Cruz, PAThaoC [address] [place] [address] PCP - General Physician Automated Equipment Engineer Technician 09/29/24 documented as of this encounter
--- OUTSIDE RECORDS SUMMARY | 2024-12-08 15:14 | External Medical Summary | Summary of Care ---
Author Name Unknown Organization [facility] Address [address] [place] [address] Phone [phone] Care Team Providers Care Miner Name Role Phone Melissa Cruz Chang FONSECA Primary Care Provider +1- [phone] Reason for Visit * Reason Comments Wound Care Encounter Details Date Type Department Care Team (Late st Contact Info) Description 10/14/2024 10:30 AM EDT Nurse Only Wound Care, [facility] 400 [place], [place] [phone] [facility], Nurse Wound Care [address] [place] [address] Wound Care Allergies Active Allergy Reactions Criticality Noted Date Comments Aspirin 01/27/2014 Increased bleeding documented as of this encounter (statuses as of 10/14/2024) Medications traZODone (DESYREL) 50 MG Tablet Take [...] as of this encounter (statuses as of 10/14/2024) Active Problems Problem Noted Date Diagnosed Date [...] as of this encounter (statuses as of 10/14/2024) Resolved Problems Problem Noted Date Diagnosed Date [...] as of this encounter (statuses as of 10/14/2024) Immunizations Name Administration Dates Next Due HEPATITIS B VACCINE, RECOMB, 20 MCG/ML, ADULT (HEPLISAV-B) 09/16/2024 Pneumococcal Conjugate Vacci ne, 20-valent (Absfeqp89) 12/04/2022 Pneumococcal Polysaccharide PPV23 (Pneumovax) 05/06/2011 Seasonal [...] No 09/16/2024 Does the household have a acoma[facility]-laguna service unitlar source of income? (Household - for ages [...] * Patient Instructions* Venus Strong RN - 10/14/2024 11:20 AM EDT Compression Therapy Education: Any questions, redness or swelling around the wound and development of a temperature of 101F or greater, please contact the [facility]. Please check your toes frequently. If they become blue, purple, pale, cool, numb, and/or tingling elevate your leg higher than your heart for one hour. If you have no relief of the symptoms, cut the entire wrap off and call the [facility], . Keep the wrap dry. If the wrap slides down or bunches at the ankle, call [facility]. Elevate legs above heart for 30 minutes 2-3 times a day. documented in this encounter Nursing Notes * Venus Strong, RN - 10/14/2024 11:09 AM EDT Patient arrived with dressings off. She states " I TOOK THEM OFF THIS MORNING" I ask how long dressing was on, she explained that the unnaboot applied in the clinic came off the next day and she saidshe applied ABD dressings to wounds daily after that. Right lower leg appears edematous, wounds seeping yellow fluid. Slightly more irritation in medial leg crease. Encouraged patient to be using the1/4 strength vinegar spray to the areas as directed. Applied vaseline to open wounds, calmoseptine to periwounds, covered wounds with Allevyn foam and tapped in place, then applied kerlix rolled gauze to legs, buttressed ABD pads in leg creases and Zinc unnaboots to bilateral lower legs. Reviewed compression education. documented in this encounter Plan of Treatment Upcoming Encounters Date Type Department Care Team (Late st Contact Info) Description 10/17/2024 10:30 AM EDT Nurse Only Wound Care, [facility] 400 [facility] [place] [address] [facility], [facility] [address] 10/20/2024 10:30 AM EDT Nurse Only Wound Care, [address], [place] [address] [facility], Nurse Wound Care 400 [facility], [place] [address] 10/23/2024 10:30 AM EDT Nurse Only Wound Care, [address], [place] [address] [facility], Nurse Wound Care 400 [facility], [place] [address] 10/24/2024 10:00 AM EDT Office Visit Cardiology, [address], [place] [address] Darnell Boggs DO 400 [facility], [place] [address] 10/28/2024 10:30 AM EDT Nurse Only Wound Care, [address], [place] [address] [facility], Nurse Wound Care [address] [place] [address], [place] [address] 10/29/2024 10:00 AM EDT Telemedicine Pharmacy, [place] [facility] [address] [facility] [address] [place], [place] [address] [address] 10/31/2024 10:30 AM EDT Nurse Only Wound Care, [address], [place] [address] [facility], Nurse Wound Care [address] [place] [address], [place] [address] 11/04/2024 11:30 AM EDT Nurse Only Wound Care, [address], [place] [address] [facility], Nurse Wound Care [address] [place], [place] [address] [address] 11/04/2024 1:00 PM EDT Appointment Radiology, [address] [place] [address] 11/07/2024 10:30 AM EDT Nurse Only Wound Care, [address], [place] [address] [facility], Nurse Wound Care [address] [place] [address], [place] [address] 11/11/2024 10:30 AM EDT Nurse Only Wound Care, [address] [place] [address] [facility], Nurse Wound Care [address] [place] [address] 11/14/2024 10:30 AM EDT Nurse Only Wound Care, [address] [place] [address] [facility], Nurse Wound Care [address] [place] [address], [place] [address] 11/18/2024 11:20 AM EDT Office Visit Wound Care, [address] [place] [address] Yuriy Hilario MD [address] [place] [address] 11/19/2024 11:00 AM EDT Office Visit Orthopaedics, [facility] [address] [place] [address] Wilian Augustin DO [address] [place] [phone] 11/27/2024 10:00 AM EDT Office Visit [employer]OR Urology [address] [address] Cem Madrigal MD [address] [place] [address] 12/04/2024 1:20 PM EDT [facility] [address] [place] [address] Melissa Cruz PA-C [address] [place] [address] 01/23/2025 10:15 AM EDT Hospital Encounter OR [facility], Operating Room, [facility] - 4th Floor 400 [facility] [place] [phone] Joel Truong MD [address] [place] [address] 01/23/2025 10:15 AM EDT - 01/23/2025 10:59 AM EDT Surgery OR [facility], Operating Room, [facility] - 4th Floor 400 [facility] [place] [phone] Joel Truong MD [address] [place] [address] COLONOSCOPY FLEXIBLE PROXIMAL DIAGNOSTIC Scheduled Procedures Name [...] this encounter Medical Devices Implanted Type Area Aircraft Cylinder Mechanic Device Identifier Shelf Expiration Date Model / Serial / Lot Device Perm Cntrl [id number] - [id number] Implanted:Qty: 2 on 09/27/2015 by Sharda Ruiz, Corey Rucker MD at OR [facility] Uterus [employer] 05/03/2017 [id number] / / [id number] documented as of this encounter Visit Diagnoses [...] Power of Attor benoit? No Care Teams Miner Relationship Specialty Start Date End Date Melissa Cruz PA-C [address] [place] [place] [address] PCP - General Physician Marine Firer 09/29/24 documented as of this encounter
--- OUTSIDE RECORDS SUMMARY | 2024-12-08 15:14 | External Medical Summary | Summary of Care ---
Author Name Unknown Organization [facility] Address [address] [place] [address] Phone [phone] Care Team Providers Care Blacktop Spreader Name Role Phone Melissa Cruz PA-C Primary Care Provider +1- [phone] Reason for Referral * Evaluate & Treat - Unlimited Visits (Within 30 days (routine)) - Pending Review Specialty Diagnoses / Procedures Referred By Phylicia zambrano Referred To Contact HOME CARE / Home Care Diagnoses Neuropathy Ambulatory dysfunction Melissa Cruz PA-C [address] [place] [address] Phone: tel: fax: Referral ID Status Reason Start Date Expiration Date Visits Requested Visits Authorized [id number] Pending Review Specialty Services Required 10/08/2024 999 999 Question Answer Referral Priority Within 30 days (routine) Where should this appointment be scheduled? John Comments Documentation of Mrhi-ms-Eatg Encounter Addendum Patient Name: Mica Jimenez I certify that this patient is under my care and that I, or a nurse practitioner or physician's urgent care physician assistant working with me, had a stpn-le-xfdd encounter that meets the physician rmro-ox-thbj encounter requirements with this patient on: 09/16/2024 [...] effort and are for medical reasons or sikhism services or infrequently or of short duration when for other reason) because: Medical reasons Physician Signature: Date of Signature: Physician Printed Name: Charlotte Taylor RN * Social Care (Within 10 days (routine)) - Pending Review Specialty Diagnoses / Procedures Referred By Phylicia zambrano Referred To Contact Etcher Apprentice Diagnoses Bipolar disorder, current episode depressed, moderate (HCC) PTSD (post-traumatic stress disorder) LYNSEY (generalized anxiety disorder) Severe episode of recurrent major depressive disorder, without psychotic features (HCC) Melissa Cruz PA-C [address] [place] [address] Phone: tel: fax: Referral ID Status Reason Start Date Expiration Date Visits Requested Visits Authorized [id number] Pending Review Specialty Services Required 10/08/2024 999 999 Question Answer Role Behavioral Health Etcher ApprenticeRating Clerk Health Etcher Apprentice Referral Reason Depression (PHQ-9>10), Bipolar Referral Priority Within 10 days (routine) Where should this appointment be scheduled? [facility] Comments Is patient being transitioned from [facility] to Complex Case Management? No Reason for Visit * Reason Onset Date Comments Advice 10/06/2024 Encounter Details Date Type Department Care Team (Late st Contact Info) Description 10/06/2024 Telephone [facility] [place] [address] [place] [address] Melissa Cruz PA-C [address] [place] [address] Advice Allergies Active Allergy Reactions Criticality Noted [...] (HEPLISAV-B) 09/16/2024 Pneumococcal Conjugate Vacci ne, 20-valent ([id number]) 12/04/2022 Pneumococcal Polysaccharide PPV23 (Pneumovax) 05/06/2011 Seasonal [...] 10/09/2024 11:26 AM EST Referral faxed to [facility] for PT. * Telephone Encounter - [...] her knee yesterday. Caller was transferred to [facility] at the nurse line. documented in this encounter Plan of Treatment Upcoming Encounters Date Type Department Care Team (Late st Contact Info) Description 10/10/2024 11:00 AM EST Nurse Only Wound Care, [address] [place] [address] [facility], Nurse Wound Care [address] [place], [place] [address] [address] 10/14/2024 10:30 AM EDT Nurse Only Wound Care, [address] [place] [address] [facility], Nurse Wound Care [address] [facility], [place] [address] 10/17/2024 10:30 AM EDT Nurse Only Wound Care, [facility] [address] [facility] [place] [address] [facility], Nurse Wound Care [address] [facility], [place] [address] 10/20/2024 10:30 AM EDT Nurse Only Wound Care, [facility] [address] [facility] [place] [address] [facility], Nurse Wound Care [address] [facility], [place] [address] 10/23/2024 10:30 AM EDT Nurse Only Wound Care, [address], [place] [address] [facility], Nurse Wound Care [address] [facility], [place] [address] 10/24/2024 10:00 AM EDT Office Visit Cardiology, [address] [address] Darnell Boggs DO [address] [facility] [address] [address] 10/29/2024 10:00 AM EDT Telemedicine Pharmacy, [place] [address] [facility] [place] [address] [place] [facility] [address] [facility] [place] [address] 11/04/2024 1:00 PM EDT Appointment Radiology, [address] [phone] 11/19/2024 11:00 AM EDT Office Visit Orthopaedics, [facility] [address] [place] [address] Wilian Augustin, DO [address] [place] [address] 11/27/2024 10:00 AM EDT Office Visit VOCATIONAL SCHOOL TEACHER Urology [facility] [address] [place] [address] Cem Madrigal MD [address] [place] [address] 12/04/2024 1:20 PM EDT Office Visit [facility] [address] [place] [address] Melissa Cruz PA-C [address] [place] [address] 01/23/2025 10:15 AM EDT Hospital Encounter OR [facility], Operating Room, [facility] - 4th Floor [address] [facility] [place] [address] Joel Truong MD [address] [place] [address] 01/23/2025 10:15 AM EDT - 01/23/2025 10:59 AM EDT Surgery OR [facility], Operating Room, [facility] Floor [address] [facility] [place] [address] Joel Truong MD [address] [place] [address] COLONOSCOPY FLEXIBLE PROXIMAL DIAGNOSTIC Scheduled Procedures Name [...] this encounter Medical Devices Implanted Type Area Carpet Winder Device Identifier Shelf Expiration Date Model / Serial / Lot Device Perm Cntrl [id number] - [id number] Implanted:Qty: 2 on 09/27/2015 by Sharda Ruiz, Corey Rucker MD at OR [facility] Uterus [employer] 05/03/2017 [id number] / / [id number] documented as of this encounter Visit Diagnoses [...] Power of Attor benoit? No Care Teams Blacktop Spreader Relationship Specialty Start Date End Date Melissa Cruz PA-C [address] [place] [address] PCP - General Physician Men'S Garment Fitter 09/29/24 documented as of this encounter
--- OUTSIDE RECORDS SUMMARY | 2024-12-08 15:14 | External Medical Summary | Summary of Care ---
Author Name Unknown Organization [facility] Address [address] [place] [address] Phone [phone] Care Team Providers Care Plumber'S Helper Name Role Phone Melissa Cruz Jair FONSECA Primary Care Provider +1- [phone] Reason for Visit * Reason Onset Date Comments Referral 10/08/2024 EPIC 178 Referra l Encounter Details Date Type Department Care Team ([facility] Contact Info) Description 10/08/2024 Telephone Care Coordination and Integration [address], [place] [id number] Thania Pavon, LUIS ANTONIO [address], [place] [phone] Referral (EPIC 178 Referral ) Allergies Active Allergy Reactions Criticality Noted Date Comments Aspirin 01/27/2014 Increased bleeding documented as of this encounter (statuses as of 10/08/2024) Medications traZODone (DESYREL) 50 MG Tablet Take [...] as of this encounter (statuses as of 10/08/2024) Active Problems Problem Noted Date Diagnosed Date [...] as of this encounter (statuses as of 10/08/2024) Resolved Problems Problem Noted Date Diagnosed Date [...] as of this encounter (statuses as of 10/08/2024) Immunizations Name Administration Dates Next Due HEPATITIS B VACCINE, RECOMB, 20 MCG/ML, ADULT (HEPLISAV-B) 09/16/2024 Pneumococcal Conjugate Vacci ne, 20-valent ([id number]) 12/04/2022 Pneumococcal Polysaccharide PPV23 (Pneumovax) 05/06/2011 Seasonal [...] No 09/16/2024 Does the household have a [facility] source of income? (Household - for ages [...] encounter Miscellaneous Notes * Telephone Encounter - Thania Pavon BS - 10/08/2024 12:21 PM EST Priority: Regular Referring Provider: Vinnie Jeffries Boron --- Cyrus Pradhan, Reason for Referral: Would like to begin therapy. Outcome of Referral: Called [phone] and spoke to Mica. [facility] so she can reach out to them for further assistance with resources (has [facility] carveout with her plan). Advised if needed she can also request to see if they offer case management services. documented in this encounter Plan of Treatment Upcoming Encounters Date Type Department Care Team (Late st Contact Info) Description 10/10/2024 11:00 AM EST Nurse Only Wound Care, [address] [address] [facility], Nurse Wound Care [address] [place] [address] 10/14/2024 10:30 AM EDT Nurse Only Wound Care, [address] [address] [facility], Nurse Wound Care [address] [place] [address] [place] [address] 10/17/2024 10:30 AM EDT Nurse Only Wound Care, [address] [address] [facility], Nurse Wound Care [address] [place], [place] [address] [address] 10/20/2024 10:30 AM EDT Nurse Only Wound Care, [address] [address] [facility], Nurse Wound Care [address] [place], [place] [address] [address] 10/23/2024 10:30 AM EDT Nurse Only Wound Care, [address] [address] [facility], Nurse Wound Care [address] [place], [place] [address] [address] 10/24/2024 10:00 AM EDT Office Visit [address] [place] [address] Darnell Boggs, [address] [facility] [address] 10/29/2024 10:00 AM EDT Telemedicine Pharmacy, [place] [facility] [place] [address] [place] [facility] [place] [address] 11/04/2024 1:00 PM EDT Appointment Radiology, [address] [phone] 11/19/2024 11:00 AM EDT Office Visit Orthopaedics, [facility] [place] [address] [facility] [address] [place] [address] Wilian Augustin DO [address] [place] [phone] 11/27/2024 10:00 AM EDT Office Visit AUTO JOB ESTIMATOR Urology [facility] 400 [facility] [place] [address] Cem Madrigal MD [address] [place] [address] 12/04/2024 1:20 PM EDT Office Visit [facility] [address] [place] [address] Melissa Cruz PA-C [address] [place] [phone] 01/23/2025 10:15 AM EDT Hospital Encounter [facility], Operating Room, [facility] - 4th Floor [address] [place] [address] [place] [phone] Joel Truong MD [address] [place] [address] 01/23/2025 10:15 AM EDT - 01/23/2025 10:59 AM EDT Surgery [facility], Operating Room, [facility] - 4th Floor [address] [place] [address] Joel Truong MD [address] [place] [address] COLONOSCOPY FLEXIBLE PROXIMAL DIAGNOSTIC Scheduled Procedures Name [...] this encounter Medical Devices Implanted Type Area Dietary Cook Device Identifier Shelf Expiration Date Model / Serial / Lot Device Perm Cntrl [id number] - [id number] Implanted:Qty: 2 on 09/27/2015 by Sharda Ruiz, Corey Rucker MD at OR [facility] Uterus [employer] 05/03/2017 [id number] / / [id number] documented as of this encounter Advance Directives [...] Power of Attor benoit? No Care Teams Plumber'S Helper Relationship Specialty Start Date End Date Melissa Cruz PA-C [address] [place] [phone] PCP - General Physician Transportation Economics Teacher 09/29/24 documented as of this encounter
--- OUTSIDE RECORDS SUMMARY | 2024-12-08 15:14 | External Medical Summary | Summary of Care ---
Author Name Unknown Organization [facility] Address [address] [place] [address] Phone [phone] Care Team Providers Care Slitting Machine Operator Helper Name Role Phone Melissa Cruz Chang FONSECA Primary Care Provider +1- [phone] Reason for Visit * Reason Comments Wound Care BLE WOUNDS EDEMA Encounter Details Date Type Department Care Team ([facility] st Contact Info) Description 10/10/2024 11:00 AM EST Nurse Only Wound Care, [facility] 400 [place] [address] [facility], Nurse Wound Care [address] [place] [address] Wound Care (BLE WOUNDS EDEMA ) Allergies [...] (HEPLISAV-B) 09/16/2024 Pneumococcal Conjugate Vacci ne, 20-valent ([id number]) 12/04/2022 Pneumococcal Polysaccharide PPV23 (Pneumovax) 05/06/2011 Seasonal [...] No 09/16/2024 Does the household have a [facility] source of [facility]? (Household - for [...] in need of cleansing since these were SYS DIR. Reviewed need to continue Vinegar spray to [...] AM EDT Nurse Only Wound Care, [address] [address] [facility], Nurse Wound Care [address] [facility] [address] 10/17/2024 10:30 AM EDT Nurse Only Wound Care, [address] [address] [facility], Nurse Wound Care [address] [place], [place] [address] [address] 10/20/2024 10:30 AM EDT Nurse Only Wound Care, [address] [place] [address] [facility], Nurse Wound Care [address] [place], [place] [address] [address] 10/23/2024 10:30 AM EDT Nurse Only Wound Care, [address] [place] [address] [facility], Nurse Wound Care [address] [place], [place] [address] [address] 10/24/2024 10:00 AM EDT Office Visit Cardiology[address] [place] [address] Darnell Boggs DO 400 [facility] [address] 10/28/2024 10:30 AM EDT Nurse Only Wound Care, [address] [place] [address] [facility], Nurse Wound Care [address] [facility] [address] 10/29/2024 10:00 AM EDT Telemedicine [facility], [address] [address] [facility] [address] 10/31/2024 10:30 AM EDT Nurse Only Wound Care, [address], [place] [address] [facility], Nurse Wound Care [address] [place] [address], [place] [address] 11/04/2024 11:30 AM EDT Nurse Only Wound Care, [address], [place] [address] [facility], Nurse Wound Care [address] [place] [address], [place] [address] 11/04/2024 1:00 PM EDT Appointment Radiology, [address], [place] [address] 11/07/2024 10:30 AM EDT Nurse Only Wound Care, [address], [place] [address] [facility], Nurse Wound Care [address] [place] [address], [place] [address] 11/11/2024 10:30 AM EDT Nurse Only Wound Care, [address], [place] [address] [facility], Nurse Wound Care [address] [place] [address], [place] [address] 11/14/2024 10:30 AM EDT Nurse Only Wound Care, [address], [place] [address] [facility], Nurse Wound Care [address] [place] [address], [place] [address] 11/18/2024 11:20 AM EDT Office Visit Wound Care, [address], [place] [address] Yuriy Hilario MD [facility] [address] 11/19/2024 11:00 AM EDT Office Visit Orthopaedics, [address] [place] [address] Wilian Augustin DO [address] [place] [phone] 11/27/2024 10:00 AM EDT Office Visit RETAIL LOSS PREVENTION OFFICER U[place] [address] [place] [address] [place] [address] Cem Mdarigal MD [address] [place] [address] 12/04/2024 1:20 PM EDT Office Visit [facility] [address] [place] [address] [place] [address] Melissa Cruz PA-C [address] [place] [address] [place] [address] 01/23/2025 10:15 AM EDT Hospital Encounter OR GL, Operating Room, [facility] - 4th Floor [address] [place] [address] [place] [phone] Joel Truong MD [address] [place] [address] 01/23/2025 10:15 AM EDT - 01/23/2025 10:59 AM EDT Surgery OR [facility], Operating Room, [facility] - 4th Floor [address] [place] [phone] Joel Truong MD [address] [place] [address] COLONOSCOPY FLEXIBLE PROXIMAL DIAGNOSTIC Scheduled Procedures Name [...] encounter Medical Devices Implanted Type Area Manager Underwriting Device Identifier Shelf Expiration Date Model / Serial / Lot Device Perm Cntrl [id number] - [id number] Implanted:Qty: 2 on 09/27/2015 by Sharda Ruiz, Croey Rucker MD at OR [facility] Uterus [employer] 05/03/2017 [id number] / / [id number] documented as of this encounter Visit Diagnoses [...] Power of Attor benoit? No Care Teams Slitting Machine Operator Helper Relationship Specialty Start Date End Date Melissa Cruz PA-C [address] [place] [address] PCP - General Physician Professor Of Literacy 09/29/24 documented as of this encounter
--- OUTSIDE RECORDS SUMMARY | 2024-12-08 15:15 | External Medical Summary | Summary of Care ---
Author Name Unknown Organization [facility] Address [address] [place] [address] Phone [phone] Care Team Providers Care Software Development Engineer Name Role Phone Melissa Cruz Jair FONSECA Primary Care Provider +1- [phone] Reason for Visit * Reason Comments Wound Care BLE Encounter Details Date Type Department Care Team (Late st Contact Info) Description 10/03/2024 11:30 AM EST Nurse Only Wound Care, [facility] [address] [place] [address] [facility], Nurse Wound Care [address] [place] [address] Wound Care (BLE ) Allergies Active Allergy Reactions Criticality Noted Date Comments Aspirin 01/27/2014 Increased bleeding documented as of this encounter (statuses as of 10/03/2024) Medications traZODone (DESYREL) 50 MG Tablet Take [...] as of this encounter (statuses as of 10/03/2024) Active Problems Problem Noted Date Diagnosed Date [...] as of this encounter (statuses as of 10/03/2024) Resolved Problems Problem Noted Date Diagnosed Date [...] as of this encounter (statuses as of 10/03/2024) Immunizations Name Administration Dates Next Due HEPATITIS B VACCINE, RECOMB, 20 MCG/ML, ADULT (HEPLISAV-B) 09/16/2024 Pneumococcal Conjugate Vacci ne, 20-valent ([id number]) 12/04/2022 Pneumococcal Polysaccharide PPV23 (Pneumovax) 05/06/2011 Seasonal [...] No 09/16/2024 Does the household have a [facility] source of income? (Household - for ages [...] * Patient Instructions* Veda Jacobson, ALPESH - 10/03/2024 2:37 PM EST Discharge Instructions: Unna Boot You [...] Nursing Notes * Veda Jacobson CMA - 10/03/2024 2:28 PM EST Treatment done as ordered by Dr. Hilario Vaseline to each wound bed Vaseline to dry feet - patient does not wish to have pads applied to feet today due to them slidingand bunching - did not place Each wound covered with Optifoam AG gentle - as per patient's request used 4 inch medipore used to try too keep foam in place ABD pad's placed anterior ankle and several throughout each leg to help form a consistent shape Zinc unna boot applied BLE then coban layer Applied size 5 Surgilast to help protect the wrap from sticking to clothing, etc Compression/Unna boot education reviewed with patient and she voiced her understanding Discharge Instructions: Unna Boot You will be [...] or greater, please contact the [facility]. Please check your toes frequently. If they become blue, purple, pale, cool, numb, and/or tingling elevate your leg higher than your heart for one hour. If you have no relief of the symptoms, cut the entire wrap off and call the [facility], . Keep the wrap dry. If the wrap slides down or bunches at the ankle, call [facility]. Elevate legs above heart for 30 minutes 2-3 times a day. Assisted patient from exam chair to wheelchair safely and I pushed patient in her wheelchair to check out * Veda Jacobson CMA - 10/03/2024 2:25 PM EST Chief Complaint Patient presents with Wound [...] voiced full comprehension of instructions. Patient presents without wraps and also without dressings. Patient states "you're going to be mad at me, I haven't had my wounds covered since yesterday. Reiterated the importance of cleaning the wounds, drying the wounds, applying the Vaseline to the wound beds and keeping them covered. She voicedher understanding. Wounds then legs and feet washed with soap and water and towel dried. Patient did have discomfort with washing today due to the wounds being embedded with animal hair. documented in this encounter Plan of Treatment Upcoming Encounters Date Type Department Care Team (Late st Contact Info) Description 10/07/2024 11:30 AM EST Nurse Only Wound Care, [address] [place] [address] [facility], Nurse Wound Care 400 [place] [address] 10/08/2024 10:40 AM EST Nurse Only Ancillary, [place] [address] [place] [address] [place], Nurse Ancillary [address] [place] [address] 10/10/2024 11:00 AM EST Nurse Only Wound Care, [address] [address] [facility], Nurse Wound Care [address] [place], [place] [address] [address] 10/14/2024 10:30 AM EDT Nurse Only Wound Care, [address] [address] [facility], Nurse Wound Care [address] [place] [address] [place] [address] 10/17/2024 10:30 AM EDT Nurse Only Wound Care, [address] [address] [facility], Nurse Wound Care [address] [place], [place] [address] [address] 10/20/2024 10:30 AM EDT Nurse Only Wound Care, [address] [address] [facility], Nurse Wound Care [address] [place], [place] [address] [address] 10/23/2024 10:30 AM EDT Nurse Only Wound Care, [address] [address] [facility], Nurse Wound Care [address] [place], [place] [address] [address] 10/24/2024 10:00 AM EDT Office Visit Cardiology, [place] [address] [place] [address] Darnell Boggs DO 400 [place] [address] 10/27/2024 10:40 AM EDT Office Visit Wound Care, [address] [place] [address] Yuriy Hilario MD 27 [place] [address] 10/29/2024 10:00 AM EDT Telemedicine Pharmacy, [place] 21 [place] [address] Marilee [facility] 21 [place] [address] 11/04/2024 1:00 PM EDT Appointment Radiology, [address] [place] [phone] 11/19/2024 11:00 AM EDT Office Visit Orthopaedics, [facility] [address] [facility] Juan Carlos [address] [place] [address] Wilian Augustin DO [address] [place] [phone] 11/27/2024 10:00 AM EDT Office Visit MANAGER BILINGUAL Urology [facility] 400 [facility] [place] [address] Cem Madrigal MD [address] [place] [address] 12/04/2024 1:20 PM EDT Office Visit [facility] [address] [place] [address] Melissa Cruz PA-C [address] [place] [address] 01/23/2025 10:15 AM EDT Hospital Encounter OR [facility], Operating Room, [facility] - 4th Floor [address] [place] [phone] Joel Truong MD [address] [place] [address] 01/23/2025 10:15 AM EDT - 01/23/2025 10:59 AM EDT Surgery OR [facility], Operating Room, [facility] - 4th Floor [address] [place] [phone] Joel Truong MD [address] [place] [address] COLONOSCOPY FLEXIBLE PROXIMAL DIAGNOSTIC Scheduled Orders Name [...] fluid Every Week for 50 Occurrences starting 10/03/2024 until 11/12/2024 Scheduled Procedures Name Priority Associated Diagnoses Date/Ti [...] this encounter Medical Devices Implanted Type Area Hat Finisher Device Identifier Shelf Expiration Date Model / Serial / Lot Device Perm Cntrl [id number] - [id number] Implanted:Qty: 2 on 09/27/2015 by Sharda Ruiz, Corey Rucker MD at OR [facility] Uterus [employer] 05/03/2017 [id number] / / [id number] documented as of this encounter Visit Diagnoses Diagnosis Multiple open wounds of lower leg, unspecified laterality, subsequent encounter- Primary Lymphedema Other lymphedema Class 3 severe obesity due to excess calories with serious comorbidity and body mass index (BMI) greater than or equal to 70 in adult (HCC) Irritant contact dermatitis due to other body fluid Anxiety state Anxiety state, unspecified Prolonged posttraumatic stress disorder Posttraumatic stress disorder Screening for colon cancer Special screening [...] of Attor benoit? No Care Teams Software Development Engineer Relationship Specialty Start Date End Date Melissa Cruz PA-C [address] [place] [address] PCP - General Physician Vocational Childcare Teacher 09/29/24 documented as of this encounter
--- OUTSIDE RECORDS SUMMARY | 2024-12-08 15:15 | External Medical Summary | Summary of Care ---
Author Name Unknown Organization [facility] Address [address] [place] [address] Phone [phone] Care Team Providers Care Broke Worker Name Role Phone Carylshyla Melissa Downing PA-C Primary Care Provider +1- [phone] Reason for Visit * Reason Onset Date Comments Nurse Documentation 10/08/2024 Nurse phone call 1 month f/u Encounter Details Date Type Department Care Team (Late st Contact Info) Description 10/08/2024 11:00 AM EST Scheduled Telephone Ancillary, [place] [address] [place] [address] [place] Nurse Follow Up Phone Call Ancillary [address] [place] [address] Arrived Allergies Active Allergy Reactions Criticality Noted Date [...] (HEPLISAV-B) 09/16/2024 Pneumococcal Conjugate Vacci ne, 20-valent ([id number]) 12/04/2022 Pneumococcal Polysaccharide PPV23 (Pneumovax) 05/06/2011 Seasonal [...] No 09/16/2024 Does the household have a [facility] source of income? (Household - for ages [...] Telephone Encounter - Christina Cuadra LPN - 10/08/2024 8:14 AM EST T/C to pt at this time for a 1 month f/u pt states "feeling well and not needing anything additional". FYI documented in this encounter Plan of Treatment Upcoming Encounters Date Type Department Care Team (Late st Contact Info) Description 10/10/2024 11:00 AM EST Nurse Only Wound Care, [address] [place] [address] [facility], Nurse Wound Care [address] [place] [address] 10/14/2024 10:30 AM EDT Nurse Only Wound Care, [address] [place] [address] [facility], Nurse Wound Care [address] [place] [address] 10/17/2024 10:30 AM EDT Nurse Only Wound Care, [address] [place] [address] [facility], Nurse Wound Care [address] [place] [address] [place] [address] 10/20/2024 10:30 AM EDT Nurse Only Wound Care, [address] [place] [address] [facility], Nurse Wound Care [address] [place] [address] 10/23/2024 10:30 AM EDT Nurse Only Wound Care, [address] [place] [address] [facility], Nurse Wound Care [address] [place] [address] [place] [address] 10/24/2024 10:00 AM EDT Office Visit Cardiology, [address] [address] Darnell Boggs DO 400 [facility] [address] 10/29/2024 10:00 AM EDT Telemedicine Pharmacy, [address] [place] [address] Marilee [facility] [address] [place] [address] 11/04/2024 1:00 PM EDT Appointment Radiology, [facility] 400 [facility] [place] [phone] 11/19/2024 11:00 AM EDT Office Visit Orthopaedics, [facility] [address] [facility] Juan [address] [place] [address] Wilian Augustin, [address] [place] [phone] 11/27/2024 10:00 AM EDT Office Visit ERADICATOR Urology [facility] 400 [facility] [place] [address] Cem Madrigal MD [address] [place] [address] 12/04/2024 1:20 PM EDT Office Visit [facility] [address] [place] [address] Melissa Cruz PA-C [address] [place] [address] 01/23/2025 10:15 AM EDT Hospital Encounter OR [facility], Operating Room, [facility] - 4th Floor 400 [facility] [place] [phone] Joel Truong MD [address] [place] [address] 01/23/2025 10:15 AM EDT - 01/23/2025 10:59 AM EDT Surgery OR [facility], Operating Room, [facility] - 4th Floor 400 [facility] [place] [address] Joel Truong MD [address] [place] [address] COLONOSCOPY FLEXIBLE PROXIMAL DIAGNOSTIC Scheduled Procedures Name [...] this encounter Medical Devices Implanted Type Area Operating Room Orderly Device Identifier Shelf Expiration Date Model / Serial / Lot Device Perm Cntrl [id number] - [id number] Implanted:Qty: 2 on 09/27/2015 by Sharda Ruiz, Corey Rucker MD at OR [facility] Uterus [employer] 05/03/2017 [id number] / / [id number] documented as of this encounter Advance Directives [...] Power of Attor benoit? No Care Teams Broke Worker Relationship Specialty Start Date End Date Melissa Cruz PA-C [address] [place] [address] PCP - General Physician Laboratory Administrative Director 09/29/24 documented as of this encounter
--- OUTSIDE RECORDS SUMMARY | 2024-12-08 15:15 | External Medical Summary | Summary of Care ---
Author Name Unknown Organization [facility] Address [address] [place] [address] Phone [phone] Care Team Providers Care Flagman Name Role Phone Melissa Cruz Jair FONSECA Primary Care Provider +1- [phone] Reason for Visit * Reason Comments Wound Care BLE Encounter Details Date Type Department Care Team (Late st Contact Info) Description 10/03/2024 11:30 AM EST Nurse Only Wound Care, [facility] [address] [place] [address] [facility], Nurse Wound Care [address] [place] [address] Wound Care (BLE ) Allergies Active Allergy [...] (HEPLISAV-B) 09/16/2024 Pneumococcal Conjugate Vacci ne, 20-valent ([id number]) 12/04/2022 Pneumococcal Polysaccharide PPV23 (Pneumovax) 05/06/2011 Seasonal [...] No 09/16/2024 Does the household have a [facility] source of [facility]? (Household - for [...] or greater, please contact the [facility]. Please check your toes frequently. If they become blue, purple, pale, cool, numb, and/or tingling elevate your leg higher than your heart for one hour. If you have no relief of the symptoms, cut the entire wrap off and call the [facility], . Keep the wrap dry. If the wrap slides down or bunches at the ankle, call [facility]. Elevate legs above heart for 30 minutes [...] 11:30 AM EST Nurse Only Wound Care, [address] [place] [address] [facility], Nurse Wound Care 400 [place] [address] 10/08/2024 10:40 AM EST Nurse Only Ancillary, [place] [address] [place] [address] [place], Nurse Ancillary [address] [place] [place] [address] 10/10/2024 11:00 AM EST Nurse Only Wound Care, [address] [address] [facility], Nurse Wound Care [address] [place], [place] [address] [address] 10/14/2024 10:30 AM EDT Nurse Only Wound Care, [address] [address] [facility], Nurse Wound Care [address] [place] [address] [place] [address] 10/17/2024 10:30 AM EDT Nurse Only Wound Care, [address] [address] [facility], Nurse Wound Care [address] [place] [address] [address] 10/20/2024 10:30 AM EDT Nurse Only Wound Care, [address] [address] [facility], Nurse Wound Care [address] [place] [address] [address] 10/23/2024 10:30 AM EDT Nurse Only Wound Care, [address] [address] [facility], Nurse Wound Care [address] [place], [place] [address] [address] 10/24/2024 10:00 AM EDT Office Visit Cardiology, [place] [address] [place] [address] Darnell Boggs DO 400 [place] [address] 10/27/2024 10:40 AM EDT Office Visit Wound Care, [address] [place] [address] Yuriy Hilario MD 27 [place] [address] 10/29/2024 10:00 AM EDT Telemedicine Pharmacy, [place] 21 [place] [address] Marilee [facility] 21 [place] [address] 11/04/2024 1:00 PM EDT Appointment Radiology, [address] [place] [phone] 11/19/2024 11:00 AM EDT Office Visit [facility]opa[facility], [facility] [address] [facility] Juan Carlos 240 [place] [address] Wilian Augustin DO [address] [place] [phone] 11/27/2024 10:00 AM EDT Office Visit TOP INVENTORY CONTROL EXECUTIVE Urology [facility] 400 [facility] [place] [address] Cem Madrigal MD [address] [place] [address] 12/04/2024 1:20 PM EDT Office Visit [facility] [address] [place] [place] [address] Melissa Cruz PA-C [address] [place] [place] [address] 01/23/2025 10:15 AM EDT Hospital Encounter OR [facility], Operating Room, [facility] - 4th Floor [address] [place] [phone] Joel Truong MD [address] [place] [address] 01/23/2025 10:15 AM EDT - 01/23/2025 10:59 AM EDT Surgery OR [facility], Operating Room, [facility] - 4th Floor [address] [place] [phone] Joel Truong MD [address] [place] [address] COLONOSCOPY FLEXIBLE PROXIMAL DIAGNOSTIC Scheduled Orders Name [...] this encounter Medical Devices Implanted Type Area Machining Engineer Device Identifier Shelf Expiration Date Model / Serial / Lot Device Perm Cntrl [id number] - [id number] Implanted:Qty: 2 on 09/27/2015 by Sharda Ruiz, Corey Rucker MD at OR [facility] Uterus [employer] 05/03/2017 [id number] / / [id number] documented as of this encounter Visit Diagnoses [...] Power of Attor benoit? No Care Teams Flagman Relationship Specialty Start Date End Date Melissa Cruz PA-C [address] [place] [place] [address] PCP - General Physician Medical Radiation Dosimetrist 09/29/24 documented as of this encounter
--- OUTSIDE RECORDS SUMMARY | 2024-12-08 15:15 | External Medical Summary | Summary of Care ---
Author Name Unknown Organization [facility] Address [address] [place] [address] Phone [phone] Care Team Providers Care Bull Wheel Worker Name Role Phone CarylTy mansfieldanthony Adam PA-C Primary Care Provider +1- [phone] Reason for Visit * Reason Onset Date Comments Appointment 07/02/2024 Encounter Details Date Type Department Care Team (Late st Contact Info) Description 07/02/2024 Telephone Wound Care, [address] [id number] Services, Scheduling [address] [place] [address] Appointment Allergies Active Allergy Reactions Criticality Noted Date Comments Aspirin 01/27/2014 Increased bleeding documented as of this encounter (statuses as of 10/02/2024) Medications traZODone (DESYREL) 50 MG Tablet Take [...] EVERY DAY 90 Capsule 3 4 Active documented as of this encounter (statuses as of 10/02/2024) Active Problems Problem Noted Date Diagnosed Date [...] as of this encounter (statuses as of 10/02/2024) Resolved Problems Problem Noted Date Diagnosed Date [...] as of this encounter (statuses as of 10/02/2024) Immunizations Name Administration Dates Next Due Pneumococcal Conjugate Vacci ne, 20-valent ([id number]) 12/04/2022 Pneumococcal Polysaccharide PPV23 (Pneumovax) 05/06/2011 Seasonal [...] 09/16/2024 Does the household have a [facility] source of income? (Household - for [...] Telephone Encounter - Anaid Beasley OSA - 07/02/2024 10:43 AM EST Called patient and she is aware she was already scheduled. * Telephone Encounter - Magdalena Ko OSA - 07/02/2024 10:37 AM EST Pt is calling and would like to set up future nurse visits. Please reach out to patient. JORGE A Yuen documented in this encounter Plan of Treatment Upcoming Encounters Date Type Department Care Team (Late st Contact Info) Description 10/03/2024 11:30 AM EST Nurse Only Wound Care, [address] [address] [facility], Nurse Wound Care [address] [place] [address], [place] [address] 10/07/2024 11:30 AM EST Nurse Only Wound Care, [address] [address] [facility], Nurse Wound Care [address] [place] [address], [place] [address] 10/08/2024 10:40 AM EST Nurse Only Ancillary, [place] [address] [place] [address] [place], Nurse Ancillary [address] [place] [address] 10/10/2024 11:00 AM EST Nurse Only Wound Care, [address] [address] [facility], Nurse Wound Care [address] [place] [address] [place] [address] 10/14/2024 10:30 AM EDT Nurse Only Wound Care, [address] [address] [facility], Nurse Wound Care [address] [place], [place] [address] [address] 10/17/2024 10:30 AM EDT Nurse Only Wound Care, [address] [address] [facility], Nurse Wound Care [address] [place] [address], [place] [address] 10/20/2024 10:30 AM EDT Nurse Only Wound Care, [address] [address] [facility], [facility]ound Care 400 [facility] [address] 10/23/2024 10:30 AM EDT Nurse Only Wound Care, [address] [address] [facility], Nurse Wound Care 400 [facility] [address] 10/24/2024 10:00 AM EDT Office Visit Cardiology, [address] [address] Darnell Boggs, 400 [facility] [address] 10/27/2024 10:40 AM EDT Office Visit Wound Care, [address] [address] Yuriy [facility]ilario [facility] 27 [facility] [address] 10/29/2024 10:00 AM EDT [facility]medicine Pharmacy[facility] [place] [facility] [address] [place] [address] 11/04/2024 1:00 PM EDT Appointment Radiology, [address] [phone] 11/19/2024 11:00 AM EDT Office Visit Orthopaedics, [facility] [address] [facility] Juan [address] [place] [address] Wilian Augustin, DO [address] [place] [phone] 11/27/2024 10:00 AM EDT Office Visit SIGN WRITER HAND Urology [address] [place] [address] Cem Madrigal MD [address] [place], [place] [address] 12/04/2024 1:20 PM EDT Office Visit [facility] [address] [place] [address] Melissa Cruz PA-C [address] [place] [address] 01/23/2025 10:15 AM EDT Hospital Encounter OR [facility], Operating Room, [facility] - 4th Floor 400 [facility] [phone] Joel Truong MD [address] [place] [address] 01/23/2025 10:15 AM EDT - 01/23/2025 10:59 AM EDT Surgery OR [facility], Operating Room, [facility] - 4th Floor 400 [place] [phone] Joel Truong MD [address] [place] [address] COLONOSCOPY FLEXIBLE PROXIMAL DIAGNOSTIC Scheduled Procedures Name [...] /11/2013, 02/10/2009 COVID-19 Vaccine ( season) 2024 Hepatitis [...] this encounter Medical Devices Implanted Type Area Evaporator Operator Molasses Device Identifier Shelf Expiration Date Model / Serial / Lot Device Perm Cntrl [id number] - [id number] Implanted:Qty: 2 on 09/27/2015 by Sharda Ruiz, Corey Rucker MD at OR [facility] Uterus [employer] 05/03/2017 [id number] / / [id number] documented as of this encounter Additional Health [...] Power of Attor benoit? No Care Teams Bull Wheel Worker Relationship Specialty Start Date End Date Melissa Cruz PA-C [address] [place] [address] PCP - General Physician Operations Supervisor 2Nd Shift 09/29/24 documented as of this encounter
--- OUTSIDE RECORDS SUMMARY | 2024-12-08 15:15 | External Medical Summary | Summary of Care ---
Author Name Unknown Organization [facility] Address [address] [place] [address] Phone [phone] Care Team Providers Care Gerontology Aide Name Role Phone Melissa Cruz Chang FONSECA Primary Care Provider +1- [phone] Reason for Visit * Reason Onset Date Comments Appointment 10/07/2024 Encounter Details Date Type Department Care Team (Late st Contact Info) Description 10/07/2024 Telephone Wound Care, [facility] [address] [place], [place] [phone] Yuriy Hilario MD [address] [place], [place] [phone] Appointment Allergies Active Allergy Reactions Criticality Noted [...] (HEPLISAV-B) 09/16/2024 Pneumococcal Conjugate Vacci ne, 20-valent ([id number]) 12/04/2022 Pneumococcal Polysaccharide PPV23 (Pneumovax) 05/06/2011 Seasonal [...] No 09/16/2024 Does the household have a [facility] source of income? (Household - for [...] needs to reschedule her appt scheduled for -24. She is asking for 3- if possible. Please call her back at [phone]. documented in this encounter Plan of Treatment Upcoming Encounters Date Type Department Care Team (Late st Contact Info) Description 10/08/2024 11:00 AM EST Scheduled Telephone Ancillary, [place] [address] [place] [address] [place], Nurse Follow Up Phone Call Ancillary [address] [place] [address] Arrived 10/10/2024 11:00 AM EST Nurse Only Wound Care, [address] [address] [facility], Nurse Wound Care [address] [place], [place] [address] [address] 10/14/2024 10:30 AM EDT Nurse Only Wound Care, [address] [address] [facility], Nurse Wound Care [address] [place], [place] [address] [address] 10/17/2024 10:30 AM EDT Nurse Only Wound Care, [facility] 400 [facility], [place] [address] [facility], Nurse Wound Care 400 [facility], [place] [address] 10/20/2024 10:30 AM EDT Nurse Only Wound Care, [address], [place] [address] [facility], Nurse Wound Care 400 [facility], [place] [address] 10/23/2024 10:30 AM EDT Nurse Only Wound Care, [address], [place] [address] [facility], Nurse Wound Care 400 [facility] [place] [address] 10/24/2024 10:00 AM EDT Office Visit Cardiology, [address] [address] Darnell Boggs, 400 [facility] [address] 10/29/2024 10:00 AM EDT Telemedicine Pharmacy, [place] [facility] [address] [place] [address] [place], [place] [address] [address] 11/04/2024 1:00 PM EDT Appointment Radiology, [address] [address] 11/19/2024 11:00 AM EDT Office Visit Orthopaedics, [facility] [address] [address] [place] [address] Wilian Augustin, DO [address] [place] [phone] 11/27/2024 10:00 AM EDT Office Visit HEALTHCARE INSURANCE SALES AGENT Urology [facility] 400 [facility] [place] [address] Cem Madrigal MD [address] [place] [address] 12/04/2024 1:20 PM EDT Office Visit [facility] [address] [place] [address] Melissa Cruz PA-C [address] [place] [address] 01/23/2025 10:15 AM EDT Hospital Encounter OR [facility], Operating Room, [facility] - 4th Floor [address] [place] [address] [place] [phone] Joel Truong MD [address] [place] [address] 01/23/2025 10:15 AM EDT - 01/23/2025 10:59 AM EDT Surgery OR [facility], Operating Room, [facility] - 4th Floor [address] [place] [address] [place] [phone] Joel Truong MD [address] [place] [address] COLONOSCOPY FLEXIBLE PROXIMAL DIAGNOSTIC Scheduled Procedures Name [...] this encounter Medical Devices Implanted Type Area Narrow Gauge Engineer Device Identifier Shelf Expiration Date Model / Serial / Lot Device Perm Cntrl [id number] - [id number] Implanted:Qty: 2 on 09/27/2015 by Sharda Ruiz, Corey Rucker MD at OR [facility] Uterus [employer] 05/03/2017 [id number] / / [id number] documented as of this encounter Advance Directives [...] Power of Attor benoit? No Care Teams Gerontology Aide Relationship Specialty Start Date End Date Melissa Cruz PA-C [address] [place] [address] PCP - General Physician Icebox Worker 09/29/24 documented as of this encounter
--- OUTSIDE RECORDS SUMMARY | 2024-12-08 15:15 | External Medical Summary | Summary of Care ---
Author Name Unknown Organization [facility] Address [address] [place] [address] Phone [phone] Care Team Providers Care Custodian Manager Name Role Phone Anthony Melissa Adam PA-C Primary Care Provider +1- [phone] Reason for Visit * Reason Comments Follow Up Follow Up: BLE Wound sPatient presents without unna boots - states they came off same day as placed which was 09/26/2024Wounds are currently covered Encounter Details Date Type Department Care Team (Late st Contact Info) Description 09/29/2024 11:00 AM EST Office Visit Wound Care, [facility] 400 [facility] [place] [address] Yuriy Hilario MD 27 [facility] [place] [address] Multiple open wounds of lower leg, unspecified laterality, subsequent encounter*; Lymphedema; Class 3 severe obesity due to excess calories with serious comorbidity and body mass index (BMI) greater than or equal to 70 in adult (HCC); Irritant contact dermatitis due to other body fluid Allergies Active Allergy Reactions Criticality Noted Date Comments Aspirin 01/27/2014 Increased bleeding documented as of this encounter (statuses as of 09/30/2024) Medications traZODone (DESYREL) 50 MG Tablet Take [...] Anxiety. 4 Active Vitamin D3 50 MCG (1999 [...] Capsule before bedtime. 90 Capsule 5 Active documented as of this encounter (statuses as of 09/30/2024) Active Problems Problem Noted Date Diagnosed Date [...] as of this encounter (statuses as of 09/30/2024) Resolved Problems Problem Noted Date Diagnosed Date [...] as of this encounter (statuses as of 09/30/2024) Immunizations Name Administration Dates Next Due HEPATITIS B VACCINE, RECOMB, 20 MCG/ML, ADULT (HEPLISAV-B) 09/16/2024 Pneumococcal Conjugate Vacci ne, 20-valent ([id number]) 12/04/2022 Pneumococcal Polysaccharide PPV23 (Pneumovax) 05/06/2011 Seasonal [...] No 09/16/2024 Does the household have a [facility] health care corporationlar source of income? (Household - for ages [...] Progress Notes * Yuriy Hilario MD - 09/29/2024 11:31 AM EST Images from the original note were not included. WOUND OUTPATIENT FOLLOW-UP NOTE DOS: 09/29/2024 CC: Follow-up HPI: Mica Jimenez returns for [...] Years since quittin.3 Passive exposure: Current Smokeless Tobacco Never Objective There were no vitals filed for this visit. WOUND ASSESSMENT: Alteration in Skin Integrity Proximal;Right;Medial Leg (Active) Clinical Image 09/29/24 1105 Wound Length (cm) 2.5 cm 09/29/24 1105 Wound Width (cm) 1.7 cm 09/29/24 1105 Wound Depth (cm) 0.2 cm 09/29/24 1105 Yellow Fibrinous Slough (%) 76-99% 09/29/24 1105 Granulation Tissue (%) 1-25% 09/29/24 1105 Granulation Tissue Color pale/pink 09/29/24 1105 Necrotic Tissue (%) none 09/29/24 1105 Necrotic Tissue Color Not Applicable 09/29/24 1105 Deep Supporting Structure Exposed None 09/29/24 1105 Drainage serosanguinous, heavy 09/29/24 1105 Odor (after cleansing wound) No 09/29/24 1105 Jaye-Wound (Surrounding Skin) Edema;Erythematous 09/29/24 1105 Wound Surface Area (cm^2) 4.25 cm^2 09/29/24 1105 Wound Volume (cm^3) 0.85 cm^3 09/29/24 1105 Alteration in Skin Integrity Left;Medial Knee (Active) Clinical Image 09/29/24 1108 Wound Length (cm) 5.5 cm 09/29/24 1108 Wound Width (cm) 3 cm 09/29/24 1108 Wound Depth (cm) 0.2 cm 09/29/24 1108 Yellow Fibrinous Slough (%) 76-99% 09/29/24 1108 Granulation Tissue (%) 1-25% 09/29/24 1108 Granulation Tissue Color pale/pink 09/29/24 1108 Necrotic Tissue (%) none 09/29/24 1108 Necrotic Tissue Color Not Applicable 09/29/24 1108 Deep Supporting Structure Exposed None 09/29/24 1108 Drainage serosanguinous, heavy 09/29/24 1108 Odor (after cleansing wound) No 09/29/24 1108 Jaye-Wound (Surrounding Skin) Edema;Erythematous 09/29/24 1108 Wound Surface Area (cm^2) 16.5 cm^2 09/29/24 1108 Wound Volume (cm^3) 3.3 cm^3 09/29/24 1108 Alteration in Skin Integrity Lower;Right;Medial Leg (Active) Clinical Image 09/29/24 1106 Wound Length (cm) 22 cm 09/29/24 1106 Wound Width (cm) 6.6 cm 09/29/24 1106 Wound Depth (cm) 0.3 cm 09/29/24 1106 Yellow Fibrinous Slough (%) 51-75% 09/29/24 1106 Granulation Tissue (%) 51-75% 09/29/24 1106 Granulation Tissue Color red 09/29/24 1106 Drainage serosanguinous, heavy 09/29/24 1106 Odor (after cleansing wound) No 09/29/24 1106 Jaye-Wound (Surrounding Skin) Edema;Erythematous 09/29/24 1106 Wound Surface Area (cm^2) 145.2 cm^2 09/29/24 1106 Wound Volume (cm^3) 43.56 cm^3 09/29/24 1106 Overall the wounds seem improved. The right leg lateral anterior lower leg ulcer requires debridement. Assessment & Plan ASSESSMENT: ICD-10-CM 1. Multiple open wounds of lower leg, unspecified laterality, subsequent encounter S81.809D 2. Lymphedema I89.0 3. Class 3 severe obesity due to excess calories with serious comorbidity and body mass index (BMI)greater than or equal to 70 in adult ([facility]) E66.813 Z68.45 E66.01 4. Irritant contact dermatitis due to other body fluid L24.A9 PLAN: Change dressings daily to wound sites once Unna Boots removed. Cleanse daily with soap and water. Vaseline to wound beds and cover with ABD pad secured with Medipore 4" tape. DAISY wrap compression to bilateral lower legs. Continue vinegar water as needed for intertrigo. Follow Up: Return in about 4 weeks (around 10/27/2024). I spent a total of 20-29 minutes (exact time 25 mins) on the date of service in preparation, delivery, and documentation of the care provided to Mica Jimenez excluding any time spent in the performance of separately billed services or time spent by another provider/QHP. Lillian Hilario MD documented in this encounter Nursing Notes * Veda Jacobson CMA - 09/29/2024 10:52 AM EST Images from the original note were not included. Chief Complaint Patient presents with Follow Up Follow Up: BLE Wounds Patient presents without unna boots - states they came off same day as placed which was 09/26/2024 Wounds are currently covered Patient was instructed to not get up on the exam table/exam chair until directed and assisted by their provider; patient is to remain seated in the chair/ wheelchair/ exam table/ exam chair for fall prevention and safety reasons. Patient is aware to have assistance to step down off exam table/exam chair with personnel. Patient voiced full comprehension of instructions. BLE shoes, socks and dressings removed Wounds then legs and feet washed with soap and water and towel dried. Patient tolerated well documented in this encounter Plan of Treatment Upcoming Encounters Date Type Department Care Team (Late st Contact Info) Description 09/30/2024 11:00 AM EST Telemedicine Pharmacy, [address] [place] [address] [facility] [address] 10/03/2024 11:30 AM EST Nurse Only Wound Care, [address], [place] [address] [facility], Nurse Wound Care [address] [place] [address], [place] [address] 10/07/2024 11:30 AM EST Nurse Only Wound Care, [address], [place] [address] [facility], Nurse Wound Care [address] [place] [address], [place] [address] 10/08/2024 10:40 AM EST Nurse Only Ancillary, [place] [address] [place] [address] [place], Nurse Ancillary [address] [place] [address] 10/10/2024 11:00 AM EST Nurse Only Wound Care, [address], [place] [address] [facility], Nurse Wound Care [address] [place] [address], [place] [address] 10/14/2024 10:30 AM EDT Nurse Only Wound Care, [address], [place] [address] [facility], Nurse Wound Care [address] [place] [address], [place] [address] 10/17/2024 10:30 AM EDT Nurse Only Wound Care, [address], [place] [address] [facility], Nurse Wound Care [address] [place] [address], [place] [address] 10/20/2024 10:30 AM EDT Nurse Only Wound Care, [address], [place] [address] [facility], Nurse Wound Care [address] [place] [address], [place] [address] 10/23/2024 10:30 AM EDT Nurse Only Wound Care, [address] [address] [facility], Nurse Wound Care [address] [place] [address] 10/24/2024 10:00 AM EDT Office Visit Cardiology[address] [address] Darnell Boggs DO 400 [place] [address] 10/27/2024 10:40 AM EDT Office Visit Wound Care, [address] [address] Yuriy Hilario MD 27 [place] [address] 11/04/2024 1:00 PM EDT Appointment Radiology, [address] [address] 11/19/2024 11:00 AM EDT Office Visit Orthopaedics, [facility] [address] [address] Wilian Augustin DO [address] [place] [phone] 11/27/2024 10:00 AM EDT Office Visit SALES CLERK FOOD Urology [address] [address] Cem Madrigal MD [address] [place] [address] 12/04/2024 1:20 PM EDT Office Visit [facility] [address] [place] [address] Melissa Cruz PA-C [address] [place] [address] 01/23/2025 10:15 AM EDT Hospital Encounter [facility], Operating Room, [facility] - 4th Floor [address] [place] [phone] Joel Truong MD [address] [place] [address] 01/23/2025 10:15 AM EDT - 01/23/2025 10:59 AM EDT Surgery OR [facility], Operating Room, [facility] - 4th Floor [address] [place] [phone] Joel Truong MD [address] [place] [address] COLONOSCOPY FLEXIBLE PROXIMAL DIAGNOSTIC Scheduled Procedures Name [...] encounter Medical Devices Implanted Type Area Manager Customs Device Identifier Shelf Expiration Date Model / Serial / Lot Device Perm Cntrl [id number] - [id number] Implanted:Qty: 2 on 09/27/2015 by Sharda Ruiz, Corey Rucker MD at OR [facility] Uterus [employer] 05/03/2017 [id number] / / [id number] documented as of this encounter Visit Diagnoses [...] Power of Attor benoit? No Care Teams Custodian Manager Relationship Specialty Start Date End Date Melissa Cruz PA-C [address] [place] [address] PCP - General Physician Pro Shop Attendant 09/29/24 documented as of this encounter
--- OUTSIDE RECORDS SUMMARY | 2024-12-08 15:15 | External Medical Summary | Summary of Care ---
Author Name Unknown Organization [facility] Address [address] [place] [address] Phone [phone] Care Team Providers Care Home Demonstration Agent Name Role Phone Melissa Cruz PA-C Primary Care Provider +1- [phone] Reason for Visit * Reason Comments Dosage Adjustment In Person (Anticoag Cl inic) Pain * Evaluate & Treat - Unlimited Visits (Within 30 days (routine)) - Pending Review Specialty Diagnoses / Procedures Referred By Phylicia zambrano Referred To Contact Pharmacist / Pharmacy Diagnoses Primary osteoarthritis of right knee Neuropathy Melissa Cruz PA-C [address] [place] [address] Phone: tel: fax: Referral ID Status Reason Start Date Expiration Date Visits Requested Visits Authorized [id number] Pending Review Specialty Services Required 09/04/2024 03/03/2025 99 99 Encounter Details Date Type Department Care Team (Late st Contact Info) Description 09/30/2024 11:00 AM [facility] Telemedicine Pharmacy, [place] 21 [place] [address] [facility] [place] [address] Primary osteoarthritis of right knee*; Neuropathy Allergies Active Allergy Reactions Criticality Noted [...] EVERY DAY IN THE MORNING 90 Capsule 01/03/202 5 Active Montelukast Sodium 10 MG Oral [...] (HEPLISAV-B) 09/16/2024 Pneumococcal Conjugate Vacci ne, 20-valent ([id number]) 12/04/2022 Pneumococcal Polysaccharide PPV23 (Pneumovax) 05/06/2011 Seasonal [...] Notes * Corrie Gil, [facility] - 09/30/2024 10:35 AM EST Images from the original note were not included. Medication Therapy Disease Management - Chronic Pain History of Presenting Illness Patient location: HOME. I was in a hospital or clinic location. After connecting through televideo,patient was verified with two unique identifiers. Patient (or authorized legal financial service representative) was then informed that this [...] presents to the [facility] for initial visit. Chief Complaint Patient presents with Dosage [...] needed: rare use * Abilify * Buspar *Clonazepam; use is 2 -3 times per week Interval History Noted to have neuropathy in the bilateral [...] JORGE A ( does not wear CPAP) PDMP Reviewed (09/30/2024): I have reviewed the patient's controlled substance dispensing history in the Prescription Drug Monitoring Program in compliance with the [facility] regulations. History of Presenting Illness [...] the assessment of the patellofemoral joint. Bones/joints: Ceui-wp-wnod femorotibial contact in the medial knee compartment where there is also bone sclerosis and bone spurring. Medial greater than lateral femorotibial spurring. Negative for joint effusion or calcified joint body. No acute fracture is evident. No suspicious bone lucency. Patellofemoral spurring. Soft tissues: Normal. IMPRESSION IMPRESSION: Multicompartmental knee osteoarthrosis, definitely worsened in the medial knee compartment where there is now pathologic narrowing and lliy-qz-knqw contact. Most recent answers to PEG-3 scale: [...] 1 mg/dL 07/15/24 1127 Estimated creatinine clearance: 94.5 mL/min Creatinine Results: Recent Labs Units 07/15/24 [...] to regimen. Treatment Options Patient presents for initial review for chronic pain due to OA of the right knee and bilateral footneuropathy. Noted to have neuropathy in the bilateral [...] walking Knee pain is associated with movement Treatment Concerns Noted to have chronic lymphedema [...] relation of renal/hepatic function and efficacy Recommendations ADD Namenda a NMDA antagonist for neuropathy Namenda 5 mg once daily for 7 days, then increase to 5 mg twice daily until seen again Lyrica 150 mg three times daily Cymbalta 60 mg daily for neuropathy Lamictal 100 mg BID for mood not pain Tylenol ER 650 mg: takes 1300 mg twice daily * Trazodone 50 mg daily as needed: rare use * Abilify * Buspar *Clonazepam; use is 2 -3 times per week Mica verbalized understanding of the plan. Contact clinic with any issues. 10/29/2024 I spent a total of Greater than 55 mins (exact time 55 mins) on the date of service in preparation,delivery, and documentation of the care provided to Mica Jimenez excluding any time spent in the performance of separately billed services or time spent by another provider/QHP. Corrie Gil [facility] Clinical Pharmacist - Towel Sorter Medication Therapy Management Clinic 09/30/2024 - 10:35 AM documented in this encounter Plan of Treatment Upcoming Encounters Date Type Department Care Team (Late st Contact Info) Description 10/03/2024 11:30 AM EST Nurse Only Wound Care, [address] [address] [facility], Nurse Wound Care [address] [place] [address] 10/07/2024 11:30 AM EST Nurse Only Wound Care, [address] [address] [facility], Nurse Wound Care [address] [place] [address] 10/08/2024 10:40 AM EST Nurse Only Ancillary, [place] [address] [place] [address] [place], Nurse Ancillary [address] [place] [address] 10/10/2024 11:00 AM EST Nurse Only Wound Care, [address] [address] [facility], Nurse Wound Care 400 [facility], [place] [address] 10/14/2024 10:30 AM EDT Nurse Only Wound Care, [address] [place] [address] [facility], Nurse Wound Care 400 [place] [address] 10/17/2024 10:30 AM EDT Nurse Only Wound Care, [address] [place] [address] [facility], Nurse Wound Care [address] [place] [address], [place] [address] 10/20/2024 10:30 AM EDT Nurse Only Wound Care, [address], [place] [address] [facility], Nurse Wound Care 400 [place] [address] 10/23/2024 10:30 AM EDT Nurse Only Wound Care, [address], [place] [address] [facility], Nurse Wound Care [address] [place] [address], [place] [address] 10/24/2024 10:00 AM EDT Office Visit Card[address], [place] [address] Darnell Boggs, 400 [facility], [place] [address] 10/27/2024 10:40 AM EDT Office Visit Wound Care, [address], [place] [address] Yuriy Hilario MD [address] [place] [address] 10/29/2024 10:00 AM EDT Telemedicine Pharmacy, [address] [address] [facility] 21 [facility] [place] [address] 11/04/2024 1:00 PM EDT Appointment Radiology, [facility] 400 [facility] [place] [phone] 11/19/2024 11:00 AM EDT Office Visit Orthopaedics, [facility] [address] [facility] Juan Carlos [address] [place] [address] Wilian uAgustin DO [address] [place] [phone] 11/27/2024 10:00 AM EDT Office Visit LAG SCREWER Urology [facility] 400 [facility] [place] [address] Cem Madrigal MD [address] [place] [address] 12/04/2024 1:20 PM EDT Office Visit [facility] [address] [place] [address] Melissa Cruz PA-C [address] [place] [address] 01/23/2025 10:15 AM EDT Hospital Encounter OR [facility], Operating Room, [facility] - 4th Floor 400 [facility] [place] [phone] Joel Truong MD [address] [place] [address] 01/23/2025 10:15 AM EDT - 01/23/2025 10:59 AM EDT Surgery OR [facility], Operating Room, [facility] - 4th Floor [address] [place] [address] [place] [phone] Joel Truong MD [address] [place] [address] COLONOSCOPY FLEXIBLE PROXIMAL DIAGNOSTIC Scheduled Procedures Name [...] this encounter Medical Devices Implanted Type Area Welder Manufacture Device Identifier Shelf Expiration Date Model / Serial / Lot Device Perm Cntrl [id number] - [id number] Implanted:Qty: 2 on 09/27/2015 by Sharda Ruiz, Corey Rucker MD at OR [facility] Uterus [employer] 05/03/2017 [id number] / / [id number] documented as of this encounter Visit Diagnoses Diagnosis Primary osteoarthritis of right knee- Primary Primary localized osteoarthrosis, lower leg Neuropathy Mononeuritis of unspecified site Screening for [...] Power of Attor benoit? No Care Teams Home Demonstration Agent Relationship Specialty Start Date End Date Melissa Cruz PA-C [address] [place] [phone] PCP - General Physician Spooling Machine Operator 09/29/24 documented as of this encounter
--- OUTSIDE RECORDS SUMMARY | 2024-12-08 15:16 | External Medical Summary | Summary of Care ---
Author Name Unknown Organization [facility] Address [address] [place] [address] Phone [phone] Care Team Providers Care Rehabilitation Services Counselor Name Role Phone Melissa Cruz Jair FONSECA Primary Care Provider +1- [phone] Reason for Visit * Reason Comments Wound Care Bilateral leg-wound Encounter Details Date Type Department Care Team ([facility] Contact Info) Description 09/26/2024 10:30 AM EST Nurse Only Wound Care, [facility] [address] [place] [address] [facility], Nurse Wound Care [address] [place] [address] Wound Care (Bilateral leg-wound) Allergies Active Allergy Reactions Criticality Noted Date Comments Aspirin 01/27/2014 Increased bleeding documented as of this encounter (statuses as of 09/26/2024) Medications traZODone (DESYREL) 50 MG Tablet Take [...] 1 Capsule before bedtime. 90 Capsule Active documented as of this encounter (statuses as of 09/26/2024) Active Problems Problem Noted Date Diagnosed Date [...] as of this encounter (statuses as of 09/26/2024) Resolved Problems Problem Noted Date Diagnosed Date [...] as of this encounter (statuses as of 09/26/2024) Immunizations Name Administration Dates Next Due HEPATITIS B VACCINE, RECOMB, 20 MCG/ML, ADULT (HEPLISAV-B) 09/16/2024 Pneumococcal Conjugate Vacci ne, 20-valent ([id number]) 12/04/2022 Pneumococcal Polysaccharide PPV23 (Pneumovax) 05/06/2011 Seasonal [...] * Patient Instructions* Isha Ruiz CMA - 09/26/2024 10:36 AM EST Compression Therapy Education: Any questions, redness or swelling around the wound and development of a temperature of 101F or greater, please contact the [facility]. Please check your toes frequently. If they become blue, purple, pale, cool, numb, and/or tingling elevate your leg higher than your heart for one hour. If you have no relief of the symptoms, cut the entire wrap off and call the [facility], . Keep the wrap dry. If the wrap slides down or bunches at the ankle, call [facility]. Elevate legs above heart for 30 minutes 2-3 times a day. documented in this encounter Nursing Notes * Isha Ruiz CMA - 09/26/2024 10:32 AM EST Chief Complaint Patient presents with Wound Care Bilateral leg-wound Patient was instructed to not get up on the exam table/exam chair until directed and assisted by their provider; patient is to remain seated in the chair/ wheelchair/ exam table/ exam chair for fall prevention and safety reasons. Patient is aware to have assistance to step down off exam table/exam chair with personnel. Patient voiced full comprehension of instructions. Socks, shoes, and dressings removed. Wounds, legs, and feet washed with soap and water. Towel dried. Patient arrived with some dressings intact. Patient stated previous dressings fell off. She washed and redressed some of her wounds. Patient reported a recent fall into her love seat injuring her shoulder. She did not seek treatment after fall per patient. Treatment provided per order. Half foam pads to lateral aspects of bilateral feet. Vaseline to wound beds, Calmoseptine to jael wound, wound beds covered with Allevyn foam pads, covered with ABDs. Skin folds through legs were then bolstered with ABDs. Kerlix to secure all dressings. Then Unna Z from toes to above the knee per order. This was then secured with coban. Surgilast 5 to cover coban. Reminded patient to cleanse and redress wounds daily per order. We also reminded her to use the ACEwrap compression after the Unna boot comes off. Helped transfer to wheel chair safely and out to waiting area. Compression Therapy Education: Any questions, redness or swelling around the wound and development of a temperature of 101F or greater, please contact the [facility]. Please check your toes frequently. If they become blue, purple, pale, cool, numb, and/or tingling elevate your leg higher than your heart for one hour. If you have no relief of the symptoms, cut the entire wrap off and call the [facility], . Keep the wrap dry. If the wrap slides down or bunches at the ankle, call [facility]. Elevate legs above heart for 30 minutes 2-3 times a day. documented in this encounter Plan of Treatment Upcoming Encounters Date Type Department Care Team (Late st Contact Info) Description 09/29/2024 11:00 AM EST Office Visit Wound Care, [facility] 400 [place] [address] Yuriy Hilario MD [address] [place] [address] 09/30/2024 11:00 AM EST Telemedicine Pharmacy, [place] [address] [place] [address] [place] [facility] [address] [place] [address] 10/03/2024 11:40 AM EST Nurse Only Ancillary, [place] [address] [place] [address] [place], Nurse Ancillary [address] [place] [address] 10/24/2024 10:00 AM EDT Office Visit Cardiology, [place] 400 [facility] [address] Darnell Boggs DO 400 [facility] [place] [address] 11/04/2024 1:00 PM EDT Appointment Radiology, [facility] [address] [place] [phone] 11/19/2024 11:00 AM EDT Office Visit [facility], [facility] [address] [place] [address] Wilian Augustin DO [address] [place] [phone] 11/27/2024 10:00 AM EDT Office Visit CAFE SERVER Urology [facility] 400 [place] [address] Cem Madrigal MD [address] [place] [address] 12/04/2024 1:20 PM EDT Office Visit [facility] [address] [place] [address] Melissa Cruz PA-C [address] [place] [address] 01/23/2025 10:15 AM EDT Hospital Encounter OR [facility], Operating Room, [facility] - 4th Floor [address] [place] [phone] Joel Truong MD [address] [place] [address] 01/23/2025 10:15 AM EDT - 01/23/2025 10:59 AM EDT Surgery OR [facility], Operating Room, [facility] - 4th Floor 400 [facility] [place] [phone] Joel Truong MD [address] [place] [address] COLONOSCOPY FLEXIBLE PROXIMAL DIAGNOSTIC Scheduled Procedures Name [...] this encounter Medical Devices Implanted Type Area Technology Advisor Device Identifier Shelf Expiration Date Model / Serial / Lot Device Perm Cntrl [id number] - [id number] Implanted:Qty: 2 on 09/27/2015 by Corey Robin Jr., MD at OR [facility] Uter[employer] 05/03/2017 [id number] / / [id number] documented as of this encounter Visit Diagnoses [...] Power of Attor benoit? No Care Teams Rehabilitation Services Counselor Relationship Specialty Start Date End Date Melissa Cruz PA-C [address] [facility] [address] [place] [address] PCP - General Physician Childcare Worker 06/02/21 documented as of this encounter
--- OUTSIDE RECORDS SUMMARY | 2024-12-08 15:16 | External Medical Summary | Summary of Care ---
Author Name Unknown Organization [facility] Address [address] [place] [address] Phone [phone] Care Team Providers Care Club Director Name Role Phone Melissa Cruz Jair FONSECA Primary Care Provider +1- [phone] Reason for Visit * Reason Comments Wound Care Bilateral leg-wound Encounter Details Date Type Department Care Team ([facility] Contact Info) Description 09/26/2024 10:30 AM EST Nurse Only Wound Care, [facility] [address] [place] [address] [facility], Nurse Wound Care 400 [place] [address] Wound Care (Bilateral leg-wound) Allergies Active Allergy [...] (HEPLISAV-B) 09/16/2024 Pneumococcal Conjugate Vacci ne, 20-valent ([id number]) 12/04/2022 Pneumococcal Polysaccharide PPV23 (Pneumovax) 05/06/2011 Seasonal [...] or greater, please contact the [facility]. Please check your toes frequently. If they become blue, purple, pale, cool, numb, and/or tingling elevate your leg higher than your heart for one hour. If you have no relief of the symptoms, cut the entire wrap off and call the [facility], . Keep the wrap dry. If the wrap slides down or bunches at the ankle, call [facility]. Elevate legs above heart for 30 minutes [...] or greater, please contact the [facility]. Please check your toes frequently. If they become blue, purple, pale, cool, numb, and/or tingling elevate your leg higher than your heart for one hour. If you have no relief of the symptoms, cut the entire wrap off and call the [facility], . Keep the wrap dry. If the wrap slides down or bunches at the ankle, call [facility]. Elevate legs above heart for 30 minutes 2-3 times a day. documented in this encounter Plan of Treatment Upcoming Encounters Date Type Department Care Team (Late st Contact Info) Description 09/29/2024 11:00 AM EST Office Visit Wound Care, [facility] 400 [place] [address] Yuriy Hilario MD [address] [place] [address] 09/30/2024 11:00 AM EST Telemedicine Pharmacy, [place] [address] [place] [address] [place] [facility] [address] [place] [address] 10/03/2024 11:40 AM EST Nurse Only Ancillary, [place] [address] [place] [address] [place], Nurse Ancillary [address] [place] [address] 10/24/2024 10:00 AM EDT Office Visit Cardiology, [place] 400 [facility] [place] [address] Darnell Boggs DO 400 [facility] [place] [address] 11/04/2024 1:00 PM EDT Appointment Radiology, [facility] [address] [place] [phone] 11/19/2024 11:00 AM EDT [facility] [address] [place] [address] Wilian Augustin DO [address] [place] [phone] 11/27/2024 10:00 AM EDT Office Visit FURNACE LINER Urology [facility] 400 [place] [address] Cem Madrigal MD [address] [place] [address] 12/04/2024 1:20 PM EDT Office Visit [facility] [address] [place] [address] Melissa Cruz PA-C [address] [place] [address] 01/23/2025 10:15 AM EDT Hospital Encounter OR [facility], Operating Room, [facility] - 4th Floor [address] [place] [phone] Joel Truong MD [address] [place] [address] 01/23/2025 10:15 AM EDT - 01/23/2025 10:59 AM EDT Surgery OR [facility], Operating Room, [facility] - 4th Floor 400 [facility] [place] [phone] Joel Truong MD [address] [place] [address] COLONOSCOPY FLEXIBLE PROXIMAL DIAGNOSTIC Scheduled Procedures Name [...] this encounter Medical Devices Implanted Type Area Welt Sewer Device Identifier Shelf Expiration Date Model / Serial / Lot Device Perm Cntrl [id number] - [id number] Implanted:Qty: 2 on 09/27/2015 by Corey Robin Jr., MD at OR [facility] Uterus [employer] 05/03/2017 [id number] / / [id number] documented as of this encounter Visit Diagnoses [...] Power of Attor benoit? No Care Teams Club Director Relationship Specialty Start Date End Date Melissa Cruz PA-C [address] [facility] [address] [place] [address] PCP - General Physician Hygiene Coordinator 06/02/21 documented as of this encounter
--- OUTSIDE RECORDS SUMMARY | 2024-12-08 15:16 | External Medical Summary | Summary of Care ---
Author Name Unknown Organization [facility] Address [address] [place] [address] Phone [phone] Care Team Providers Care Crop And Soil Technician Name Role Phone Melissa Cruz Jair FONSECA Primary Care Provider +1- [phone] Reason for Visit * Reason Comments Wound Care Bilateral leg-wound Encounter Details Date Type Department Care Team ([facility] Contact Info) Description 09/26/2024 10:30 AM EST Nurse Only Wound Care, [facility] [address] [place] [address] [facility], Nurse Wound Care [address] [place] [address] Wound Care (Bilateral leg-wound) Allergies Active Allergy [...] (HEPLISAV-B) 09/16/2024 Pneumococcal Conjugate Vacci ne, 20-valent ([id number]) 12/04/2022 Pneumococcal Polysaccharide PPV23 (Pneumovax) 05/06/2011 Seasonal [...] or greater, please contact the [facility]. Please check your toes frequently. If they become blue, purple, pale, cool, numb, and/or tingling elevate your leg higher than your heart for one hour. If you have no relief of the symptoms, cut the entire wrap off and call the [facility], . Keep the wrap dry. If the wrap slides down or bunches at the ankle, call [facility]. Elevate legs above heart for 30 minutes [...] or greater, please contact the [facility]. Please check your toes frequently. If they become blue, purple, pale, cool, numb, and/or tingling elevate your leg higher than your heart for one hour. If you have no relief of the symptoms, cut the entire wrap off and call the [facility], . Keep the wrap dry. If the wrap slides down or bunches at the ankle, call [facility]. Elevate legs above heart for 30 minutes 2-3 times a day. documented in this encounter Plan of Treatment Upcoming Encounters Date Type Department Care Team (Late st Contact Info) Description 09/29/2024 11:00 AM EST Office Visit Wound Care, [facility] 400 [place] [address] Yuriy Hilario MD [address] [place] [address] 09/30/2024 11:00 AM EST Telemedicine Pharmacy, [place] [address] [place] [address] [place] [facility] [address] [place] [address] 10/03/2024 11:40 AM EST Nurse Only Ancillary, [place] [address] [place] [address] [place], Nurse Ancillary [address] [place] [address] 10/24/2024 10:00 AM EDT Office Visit Cardiology, [place] 400 [facility] [place] [address] Darnell Boggs DO 400 [facility] [address] 11/04/2024 1:00 PM EDT Appointment Radiology, [facility] [address] [place] [address] 11/19/2024 11:00 AM EDT [facility] [address] [place] [address] Wilian Augustin DO [address] [place] [phone] 11/27/2024 10:00 AM EDT Office Visit LEAK DETECTION ENGINEER Urology [facility] 400 [place] [address] Cem Madrigal MD [address] [place] [address] 12/04/2024 1:20 PM EDT Office Visit [facility] [address] [place] [address] Melissa Cruz PA-C [address] [place] [place] [address] 01/23/2025 10:15 AM EDT Hospital Encounter OR [facility], Operating Room, [facility] - 4th Floor [address] [place] [phone] Joel Truong MD [address] [place] [address] 01/23/2025 10:15 AM EDT - 01/23/2025 10:59 AM EDT Surgery OR [facility], Operating Room, [facility] - 4th Floor 400 [facility] [place] [phone] Joel Truong MD [address] [place] [address] COLONOSCOPY FLEXIBLE PROXIMAL DIAGNOSTIC Scheduled Procedures Name [...] this encounter Medical Devices Implanted Type Area Marking Clerk Device Identifier Shelf Expiration Date Model / Serial / Lot Device Perm Cntrl [id number] - [id number] Implanted:Qty: 2 on 09/27/2015 by Corey Robin Jr., MD at OR [facility] Uterus [employer] 05/03/2017 [id number] / / [id number] documented as of this encounter Visit Diagnoses [...] Power of Attor benoit? No Care Teams Crop And Soil Technician Relationship Specialty Start Date End Date Melissa Cruz PA-C [address] [facility] [address] [place] [address] PCP - General Physician Rake Operator 06/02/21 documented as of this encounter
--- OUTSIDE RECORDS SUMMARY | 2024-12-08 15:16 | External Medical Summary | Summary of Care ---
Author Name Unknown Organization [facility] Address [address] [place] [address] Phone [phone] Care Team Providers Care Director Fundraising Name Role Phone Melissa Cruz Jair FONSECA Primary Care Provider +1- [phone] Reason for Visit * Reason Comments Wound Care Bilateral leg-wound Encounter Details Date Type Department Care Team ([facility] Contact Info) Description 09/26/2024 10:30 AM EST Nurse Only Wound Care, [facility] [address] [place] [address] [facility], Nurse Wound Care [address] [place] [address] Wound Care (Bilateral leg-wound) Allergies Active Allergy [...] (HEPLISAV-B) 09/16/2024 Pneumococcal Conjugate Vacci ne, 20-valent ([id number]) 12/04/2022 Pneumococcal Polysaccharide PPV23 (Pneumovax) 05/06/2011 Seasonal [...] or greater, please contact the [facility] [place]. Please check your toes frequently. If they become blue, purple, pale, cool, numb, and/or tingling elevate your leg higher than your heart for one hour. If you have no relief of the symptoms, cut the entire wrap off and call the [facility] [place], . Keep the wrap dry. If the wrap slides down or bunches at the ankle, call The [facility] [place]. Elevate legs above heart for 30 minutes [...] or greater, please contact the [facility] [place]. Please check your toes frequently. If they become blue, purple, pale, cool, numb, and/or tingling elevate your leg higher than your heart for one hour. If you have no relief of the symptoms, cut the entire wrap off and call the [facility] [place], . Keep the wrap dry. If the wrap slides down or bunches at the ankle, call [facility] [place]. Elevate legs above heart for 30 minutes 2-3 times a day. documented in this encounter Plan of Treatment Upcoming Encounters Date Type Department Care Team (Late st Contact Info) Description 09/29/2024 11:00 AM EST Office Visit Wound Care, [facility] 400 [place] [address] Yuriy Hilario MD [address] [place] [address] 09/30/2024 11:00 AM EST Telemedicine Pharmacy, [place] [address] [place] [address] [place] [facility] [address] [place] [address] 10/03/2024 11:40 AM EST Nurse Only Ancillary, [place] [address] [place] [address] [place], Nurse Ancillary [address] [place] [address] 10/24/2024 10:00 AM EDT Office Visit Cardiology, [place] 400 [place] [address] Darnell Boggs DO 400 [place] [address] 11/04/2024 1:00 PM EDT Appointment Radiology, [facility] [address] [place] [phone] 11/19/2024 11:00 AM EDT [facility] [address] [place] [address] Wilian Augustin DO [address] [place] [phone] 11/27/2024 10:00 AM EDT Office Visit PATENT LAWYER Urology [facility] 400 [place] [address] Cem Madrigal MD [address] [place] [address] 12/04/2024 1:20 PM EDT Office Visit [facility] [address] [place] [address] Melissa Cruz PA-C [address] [place] [address] 01/23/2025 10:15 AM EDT Hospital Encounter OR [facility], Operating Room, [facility] - 4th Floor [address] [place] [phone] Joel Truong MD [address] [place] [address] 01/23/2025 10:15 AM EDT - 01/23/2025 10:59 AM EDT Surgery OR [facility], Operating Room, [facility] - 4th Floor 400 [facility] [place] [phone] Joel Truong MD [address] [place] [address] COLONOSCOPY FLEXIBLE PROXIMAL DIAGNOSTIC Scheduled Procedures Name [...] this encounter Medical Devices Implanted Type Area Drawer In Device Identifier Shelf Expiration Date Model / Serial / Lot Device Perm Cntrl [id number] - [id number] Implanted:Qty: 2 on 09/27/2015 by Corey Robin Jr., MD at OR [facility] Uterus [employer] 05/03/2017 [id number] / / [id number] documented as of this encounter Visit Diagnoses [...] of Attor benoit? No Care Teams Director Fundraising Relationship Specialty Start Date End Date Melissa Cruz PA-C [address] [facility] [address] [place] [address] PCP - General Physician Bench Assembly Inspector 06/02/21 documented as of this encounter
--- OUTSIDE RECORDS SUMMARY | 2024-12-08 15:16 | External Medical Summary | Summary of Care ---
Author Name Unknown Organization [facility] Address [address] [place] [address] Phone [phone] Care Team Providers Care Offset Press Assistant Name Role Phone Anthony Melissa Adam PA-C Primary Care Provider +1- [phone] Reason for Visit * Reason Comments Follow Up Follow Up: BLE Wound sPatient presents without unna boots - states they came off same day as placed which was 09/26/2024Wounds are currently covered Encounter Details Date Type Department Care Team (Late st Contact Info) Description 09/29/2024 11:00 AM EST Office Visit Wound Care, [facility] [address] [facility] [place] [address] Yuriy Hilario MD 27 [facility] [place] [address] Multiple open wounds of lower leg, unspecified [...] as of this encounter (statuses as of 09/29/2024) Medications traZODone (DESYREL) 50 MG Tablet Take [...] as of this encounter (statuses as of 09/29/2024) Active Problems Problem Noted Date Diagnosed Date [...] as of this encounter (statuses as of 09/29/2024) Resolved Problems Problem Noted Date Diagnosed Date [...] as of this encounter (statuses as of 09/29/2024) Immunizations Name Administration Dates Next Due HEPATITIS B VACCINE, RECOMB, 20 MCG/ML, ADULT (HEPLISAV-B) 09/16/2024 Pneumococcal Conjugate Vacci ne, 20-valent ([id number]) 12/04/2022 Pneumococcal Polysaccharide PPV23 (Pneumovax) 05/06/2011 Seasonal [...] No 09/16/2024 Does the household have a presbyterian española [...] than or equal to 70 in adult ([facility]) E66.813 Z68.45 E66.01 4. Irritant contact dermatitis [...] Description 09/30/2024 11:00 AM EST Telemedicine Pharmacy, [address] [place] [address] [facility] [address] 10/03/2024 11:30 AM EST Nurse Only Wound Care, [address], [place] [address] [facility], Nurse Wound Care [address] [place] [address], [place] [address] 10/07/2024 11:30 AM EST Nurse Only Wound Care, [address], [place] [address] [facility], Nurse Wound Care [address] [place] [address], [place] [address] 10/08/2024 10:40 AM EST Nurse Only Ancillary, [place] [address] [place] [address] [place], Nurse Ancillary [address] [place] [address] 10/10/2024 11:00 AM EST Nurse Only Wound Care, [address], [place] [address] [facility], Nurse Wound Care [address] [place] [address], [place] [address] 10/14/2024 10:30 AM EDT Nurse Only Wound Care, [address], [place] [address] [facility], Nurse Wound Care [address] [place] [address], [place] [address] 10/17/2024 10:30 AM EDT Nurse Only Wound Care, [address], [place] [address] [facility], Nurse Wound Care [address] [place] [address], [place] [address] 10/20/2024 10:30 AM EDT Nurse Only Wound Care, [address], [place] [address] [facility], Nurse Wound Care [address] [place] [address], [place] [address] 10/23/2024 10:30 AM EDT Nurse Only Wound Care, [address] [address] [facility], Nurse Wound Care [address] [place] [address] 10/24/2024 10:00 AM EDT Office Visit Cardiology[address] [address] Darnell Boggs DO 400 [place] [address] 10/27/2024 10:40 AM EDT Office Visit Wound Care, [address] [address] Yuriy Hilario MD 27 [place] [address] 11/04/2024 1:00 PM EDT Appointment Radiology, [address] [address] 11/19/2024 11:00 AM EDT Office Visit Orthopaedics, [facility] [address] [address] Wilian Augustin DO [address] [place] [address] 11/27/2024 10:00 AM EDT Office Visit SWING TENDER Urology [address] [address] Cem Madrigal MD [address] [place] [address] 12/04/2024 1:20 PM EDT [facility] [address] [place] [address] Melissa Cruz PA-C [address] [place] [address] 01/23/2025 10:15 AM EDT Hospital Encounter OR GL, Operating Room, [facility] - 4th Floor [address] [place] [address] Joel Truong MD [address] [place] [address] 01/23/2025 10:15 AM EDT - 01/23/2025 10:59 AM EDT [address] [facility], Operating Room, [facility] - 4th Floor [address] [place] [phone] Joel Truong MD [address] [place] [address] COLONOSCOPY FLEXIBLE PROXIMAL DIAGNOSTIC Scheduled Procedures Name [...] this encounter Medical Devices Implanted Type Area Neck Skewer Device Identifier Shelf Expiration Date Model / Serial / Lot Device Perm Cntrl [id number] - [id number] Implanted:Qty: 2 on 09/27/2015 by Sharda Ruiz, Corey Rucker MD at OR [facility] Uterus [employer] 05/03/2017 [id number] / / [id number] documented as of this encounter Visit Diagnoses [...] Power of Attor benoit? No Care Teams Offset Press Assistant Relationship Specialty Start Date End Date Melissa Cruz PA-C [address] [place] [address] PCP - General Physician Load Haul Dump Operator 09/29/24 documented as of this encounter
--- OUTSIDE RECORDS SUMMARY | 2024-12-08 15:16 | External Medical Summary | Summary of Care ---
Author Name Unknown Organization [facility] Address [address] [place] [address] Phone [phone] Care Team Providers Care Centrifugal Station Operator Name Role Phone Anthony Melissa Adam PA-C Primary Care Provider +1- [phone] Reason for Visit * Reason Comments Follow Up Follow Up: BLE Wound sPatient presents without unna boots - states they came off same day as placed which was 09/26/2024Wounds are currently covered Encounter Details Date Type Department Care Team (Late st Contact Info) Description 09/29/2024 11:00 AM EST Office Visit Wound Care, [facility] 400 [place] [place]PAUMA VAL[place] [address] Yuriy Hilario MD [address] [address] Multiple open wounds of lower leg, unspecified [...] (HEPLISAV-B) 09/16/2024 Pneumococcal Conjugate Vacci ne, 20-valent ([id number]) 12/04/2022 Pneumococcal Polysaccharide PPV23 (Pneumovax) 05/06/2011 Seasonal [...] than or equal to 70 in adult ([facility]) E66.813 Z68.45 E66.01 4. Irritant contact dermatitis [...] Description 09/30/2024 11:00 AM EST Telemedicine Pharmacy, [address] [place] [address] [facility] [address] 10/03/2024 11:30 AM EST Nurse Only Wound Care, [address], [place] [address] [facility], Nurse Wound Care [address] [place] [address], [place] [address] 10/07/2024 11:30 AM EST Nurse Only Wound Care, [address], [place] [address] [facility], Nurse Wound Care [address] [place] [address], [place] [address] 10/08/2024 10:40 AM EST Nurse Only Ancillary, [place] [address] [place] [address] [place], Nurse Ancillary [address] [place] [address] 10/10/2024 11:00 AM EST Nurse Only Wound Care, [address], [place] [address] [facility], Nurse Wound Care [address] [place] [address], [place] [address] 10/14/2024 10:30 AM EDT Nurse Only Wound Care, [address], [place] [address] [facility], Nurse Wound Care [address] [place] [address], [place] [address] 10/17/2024 10:30 AM EDT Nurse Only Wound Care, [address], [place] [address] [facility], Nurse Wound Care [address] [place] [address], [place] [address] 10/20/2024 10:30 AM EDT Nurse Only Wound Care, [address], [place] [address] [facility], Nurse Wound Care [address] [place] [address], [place] [address] 10/23/2024 10:30 AM EDT Nurse Only Wound Care, [address] [address] [facility], Nurse Wound Care [address] [place] [address] 10/24/2024 10:00 AM EDT Office Visit Cardiology[address] [address] Darnell Boggs DO 400 [place] [address] 10/27/2024 10:40 AM EDT Office Visit Wound Care, [address] [address] Yuriy Hilario MD 27 [place] [address] 11/04/2024 1:00 PM EDT Appointment Radiology, [address] [address] 11/19/2024 11:00 AM EDT Office Visit Orthopaedics, [facility] [address] [address] Wilian Augustin DO [address] [place] [address] 11/27/2024 10:00 AM EDT Office Visit BALLET PROFESSOR Urology [address] [address] Cem Madrigal MD [address] [place] [address] 12/04/2024 1:20 PM EDT Office Visit [facility] [address] [place] [address] Melissa Cruz PA-C [address] [place] [address] 01/23/2025 10:15 AM EDT Hospital Encounter OR GL, Operating Room, [facility] - 4th Floor [address] [place] [phone] Joel Truong MD [address] [place] [address] 01/23/2025 10:15 AM EDT - 01/23/2025 10:59 AM EDT Surgery OR [facility], Operating Room, [facility] - 4th Floor [address] [place] [phone] Joel Truong MD [address] [place] [address] COLONOSCOPY FLEXIBLE PROXIMAL DIAGNOSTIC Scheduled Procedures Name [...] this encounter Medical Devices Implanted Type Area Case Fitter Device Identifier Shelf Expiration Date Model / Serial / Lot Device Perm Cntrl [id number] - [id number] Implanted:Qty: 2 on 09/27/2015 by Sharda Ruiz, Corey Rucker MD at OR [facility] Uterus [employer] 05/03/2017 [id number] / / [id number] documented as of this encounter Visit Diagnoses [...] Power of Attor benoit? No Care Teams Centrifugal Station Operator Relationship Specialty Start Date End Date Melissa Cruz PA-C [address] [place] [address] PCP - General Physician Laborer [employer] 09/29/24 documented as of this encounter
--- OUTSIDE RECORDS SUMMARY | 2024-12-08 15:16 | External Medical Summary | Summary of Care ---
Author Name Unknown Organization [facility] Address [address] [place] [address] Phone [phone] Care Team Providers Care Dye Weigher Helper Name Role Phone Anthony Melissa Adam PA-C Primary Care Provider +1- [phone] Reason for Visit * Reason Comments Follow Up Follow Up: BLE Wound sPatient presents without unna boots - states they came off same day as placed which was 09/26/2024Wounds are currently covered Encounter Details Date Type Department Care Team (Late st Contact Info) Description 09/29/2024 11:00 AM EST Office Visit Wound Care, [facility] 400 [facility] [place] [address] Yuriy Hilario MD 27 [facility] [place] [address] Multiple open wounds of lower leg, unspecified [...] (HEPLISAV-B) 09/16/2024 Pneumococcal Conjugate Vacci ne, 20-valent ([id number]) 12/04/2022 Pneumococcal Polysaccharide PPV23 (Pneumovax) 05/06/2011 Seasonal [...] 09/16/2024 Does the household have a [facility] children's hospitall[facility] source of income? (Household - for [...] than or equal to 70 in adult ([facility]) E66.813 Z68.45 E66.01 4. Irritant contact dermatitis [...] Description 09/30/2024 11:00 AM EST Telemedicine Pharmacy, [address] [place] [address] [facility] [address] 10/03/2024 11:30 AM EST Nurse Only Wound Care, [address], [place] [address] [facility], Nurse Wound Care [address] [place] [address], [place] [address] 10/07/2024 11:30 AM EST Nurse Only Wound Care, [address], [place] [address] [facility], Nurse Wound Care [address] [place] [address], [place] [address] 10/08/2024 10:40 AM EST Nurse Only Ancillary, [place] [address] [place] [address] [place], Nurse Ancillary [address] [place] [address] 10/10/2024 11:00 AM EST Nurse Only Wound Care, [address], [place] [address] [facility], Nurse Wound Care [address] [place] [address], [place] [address] 10/14/2024 10:30 AM EDT Nurse Only Wound Care, [address], [place] [address] [facility], Nurse Wound Care [address] [place] [address], [place] [address] 10/17/2024 10:30 AM EDT Nurse Only Wound Care, [address], [place] [address] [facility], Nurse Wound Care [address] [place] [address], [place] [address] 10/20/2024 10:30 AM EDT Nurse Only Wound Care, [address], [place] [address] [facility], Nurse Wound Care [address] [place] [address], [place] [address] 10/23/2024 10:30 AM EDT Nurse Only Wound Care, [address] [address] [facility], Nurse Wound Care [address] [place] [address] 10/24/2024 10:00 AM EDT Office Visit Cardiology[address] [address] Darnell Boggs DO 400 [place] [address] 10/27/2024 10:40 AM EDT Office Visit Wound Care, [address] [address] Yuriy Hilario MD 27 [place] [address] 11/04/2024 1:00 PM EDT Appointment Radiology, [address] [address] 11/19/2024 11:00 AM EDT Office Visit Orthopaedics, [facility] [address] [address] Wilian Augustin DO [address] [place] [address] 11/27/2024 10:00 AM EDT Office Visit COCOA ROOM OPERATOR Urology [address] [address] Cem Madrigal MD [address] [place] [address] 12/04/2024 1:20 PM EDT Office Visit [facility] [address] [place] [place] [address] Melissa Cruz PA-C [address] [place] [place] [address] 01/23/2025 10:15 AM EDT Hospital Encounter OR GL, Operating Room, [facility] - 4th Floor [address] [place] [phone] Joel Truong MD [address] [place] [address] 01/23/2025 10:15 AM EDT - 01/23/2025 10:59 AM EDT Surgery OR [facility], Operating Room, [facility] - 4th Floor [address] [place] [phone] Joel Truong MD [address] [place] [address] COLONOSCOPY FLEXIBLE PROXIMAL DIAGNOSTIC Scheduled Procedures Name [...] this encounter Medical Devices Implanted Type Area Saddle And Harness Maker Device Identifier Shelf Expiration Date Model / Serial / Lot Device Perm Cntrl [id number] - [id number] Implanted:Qty: 2 on 09/27/2015 by Sharda Ruiz, Corey Rucker MD at OR [facility] Uterus [employer] 05/03/2017 [id number] / / [id number] documented as of this encounter Visit Diagnoses [...] Power of Attor benoit? No Care Teams Dye Weigher Helper Relationship Specialty Start Date End Date Melissa Cruz PA-C [address] [place] [address] PCP - General Physician Nursing Home Physician 09/29/24 documented as of this encounter
--- OUTSIDE RECORDS SUMMARY | 2024-12-08 15:16 | External Medical Summary | Summary of Care ---
Author Name Unknown Organization [facility] Address [address] [place] [address] Phone [phone] Care Team Providers Care Instrument/Control Technician Name Role Phone Melissa Cruz Jair FONSECA Primary Care Provider +1- [phone] Reason for Visit * Reason Comments Wound Care Bilateral leg-wound Encounter Details Date Type Department Care Team ([facility] Contact Info) Description 09/26/2024 10:30 AM EST Nurse Only Wound Care, [facility] 400 [place] [address] [facility], Nurse Wound Care 400 [place] [address] Wound Care (Bilateral leg-wound) Allergies Active Allergy [...] (HEPLISAV-B) 09/16/2024 Pneumococcal Conjugate Vacci ne, 20-valent ([id number]) 12/04/2022 Pneumococcal Polysaccharide PPV23 (Pneumovax) 05/06/2011 Seasonal [...] or greater, please contact the [facility]. Please check your toes frequently. If they become blue, purple, pale, cool, numb, and/or tingling elevate your leg higher than your heart for one hour. If you have no relief of the symptoms, cut the entire wrap off and call the [facility], . Keep the wrap dry. If the wrap slides down or bunches at the ankle, call [facility]. Elevate legs above heart for 30 minutes [...] or greater, please contact the [facility]. Please check your toes frequently. If they become blue, purple, pale, cool, numb, and/or tingling elevate your leg higher than your heart for one hour. If you have no relief of the symptoms, cut the entire wrap off and call the [facility], . Keep the wrap dry. If the wrap slides down or bunches at the ankle, call [facility]. Elevate legs above heart for 30 minutes 2-3 times a day. documented in this encounter Plan of Treatment Upcoming Encounters Date Type Department Care Team (Late st Contact Info) Description 09/29/2024 11:00 AM EST Office Visit Wound Care, [facility] 400 [place] [address] Yuriy Hilario MD 27 [place] [address] 09/30/2024 11:00 AM EST Telemedicine Pharmacy, [place] 21 [place] [address] [place] [facility] 21 [place] [address] 10/03/2024 11:40 AM EST Nurse Only Ancillary, [place] [address] [place] [address] [place], Nurse Ancillary [address] [place] [address] 10/24/2024 10:00 AM EDT Office Visit Cardiology, [place] 400 [place] [address] Darnell Boggs DO 400 [place] [address] 11/04/2024 1:00 PM EDT Appointment Radiology, [facility] 400 [place] [address] 11/19/2024 11:00 AM EDT [facility] [address] [place] [address] Wilian Augustin DO [address] [place] [address] 11/27/2024 10:00 AM EDT Office Visit ANIMAL COP Urology [facility] 400 [place] [address] Cem Madrigal MD [address] [place] [address] 12/04/2024 1:20 PM EDT Office Visit [facility] [address] [place] [address] Melissa Cruz PA-C [address] [place] [address] 01/23/2025 10:15 AM EDT Hospital Encounter OR [facility], Operating Room, [facility] - 4th Floor 400 [place] [phone] Joel Truong MD [address] [place] [address] 01/23/2025 10:15 AM EDT - 01/23/2025 10:59 AM EDT Surgery OR [facility], Operating Room, [facility] - 4th Floor 400 [facility] [place]ANDE[place]ANCIN[place] [phone] Joel Truong MD [address] [place] [address] COLONOSCOPY FLEXIBLE PROXIMAL DIAGNOSTIC Scheduled Procedures Name [...] this encounter Medical Devices Implanted Type Area Hydroelectric Station Operator Device Identifier Shelf Expiration Date Model / Serial / Lot Device Perm Cntrl [id number] - [id number] Implanted:Qty: 2 on 09/27/2015 by Corey Robin Jr., MD at OR [facility] Uterus [employer] 05/03/2017 [id number] / / [id number] documented as of this encounter Visit Diagnoses [...] Power of Attor benoit? No Care Teams Instrument/Control Technician Relationship Specialty Start Date End Date Melissa Cruz PA-C [address] [facility] [address] [place] [address] PCP - General Physician Drum Maker 06/02/21 documented as of this encounter
--- OUTSIDE RECORDS SUMMARY | 2024-12-08 15:16 | External Medical Summary | Summary of Care ---
Author Name Unknown Organization [facility] Address [address] [place] [address] Phone [phone] Care Team Providers Care Metal Grader Name Role Phone Melissa Cruz Jair FONSECA Primary Care Provider +1- [phone] Reason for Visit * Reason Comments Wound Care BLE -- WOUNDS Encounter Details Date Type Department Care Team ([facility] Contact Info) Description 09/19/2024 10:30 AM EST Nurse Only Wound Care, [facility] [address] [place] [address] [facility], Nurse Wound Care [address] [place] [address] Wound Care (BLE -- WOUNDS ) Allergies Active Allergy Reactions Criticality Noted Date Comments Aspirin 01/27/2014 Increased bleeding documented as of this encounter (statuses as of 09/19/2024) Medications traZODone (DESYREL) 50 MG Tablet Take [...] as of this encounter (statuses as of 09/19/2024) Active Problems Problem Noted Date Diagnosed Date [...] as of this encounter (statuses as of 09/19/2024) Resolved Problems Problem Noted Date Diagnosed Date [...] as of this encounter (statuses as of 09/19/2024) Immunizations Name Administration Dates Next Due HEPATITIS B VACCINE, RECOMB, 20 MCG/ML, ADULT (HEPLISAV-B) 09/16/2024 Pneumococcal Conjugate Vacci ne, 20-valent ([id number]) 12/04/2022 Pneumococcal Polysaccharide PPV23 (Pneumovax) 05/06/2011 Seasonal [...] Patient Instructions * Patient Instructions* Megha López, DATA CONTROL CLERK SUPERVISOR - 09/19/2024 11:21 AM EST Discharge Instructions: Unna Boot You [...] Nursing Notes * Megha López LPN - 09/19/2024 11:20 AM EST Assisted to sit safely on exam seating aware to not rise unassisted for her safety. Unna boots are noted to have slid down legs to mid horn this date. Stated she at least still has them on. She has provided treatment to her upper leg wounds as dressing are noted to be in place. Chandrika RN asked her about use of Filiberto Wraps as she has been asked to place at home by to help with compression as these again are not noted to be in place. She stated she does use them. Wounds and legs/ feet washed with soap and water -- towel dried tolerated well. Mica states continues to clean at home with her soft brush per recommendations as well. No photos as no significant changes noted since Sunday. Leg treatments completed per order by S.F. & myself this date as follows -- Vaseline applied todry feet and to all open wound beds Optifoam AG Gentle 1/2 pad to each lateral foot and then 1 pad to each open wound LLE ABD Pads applied to anterior and posterior ankle to help shape leg and then zinc unna boot RLE: wrapped with kerlix to hold optifoam in place then abd pads applied to posterior and anterior ankle to help shape leg. Zinc unna boot applied to BLE Wrapped with coban layer and then size 5 Surgilast. Sock and sneaker reapplied -- assisted to transfer from Exam seating to w/c then S.F. propelled to check out. Aware to call with any questions or concerns. documented in this encounter Plan of Treatment Upcoming Encounters Date Type Department Care Team (Late st Contact Info) Description 09/22/2024 10:30 AM EST Nurse Only Wound Care, [address] [facility], Nurse Wound Care [address] [facility] [place] [address] 09/26/2024 10:30 AM EST Nurse Only Wound Care, [address] [place] [address] [facility], Nurse Wound Care [address] [place] [address] [place] [address] 09/29/2024 11:00 AM EST Office Visit Wound Care, [address] [address] Yuriy Hilario MD [address] [place] [address] 09/30/2024 11:00 AM EST [facility]medicine [facility]acy[facility] [place] [facility] [address] [place], [facility] [place] [address] 10/03/2024 11:40 AM EST Nurse Only Ancillary, [place] [address] [place] [address] [place], Nurse Ancillary [address] [place] [address] 10/24/2024 10:00 AM EDT Office Visit Cardiology, [address] [place] [address] Darnell Boggs, 400 [facility] [place] [address] 11/04/2024 1:00 PM EDT Appointment Radiology, [address] [place] [id number] 11/19/2024 11:00 AM EDT Office Visit Orthopaedics, [facility] [address] [facility] [place] [address] [place] [address] Wilian Augustin, DO [address] [place] [address] 11/27/2024 10:00 AM EDT Office Visit [facility] [facility] Urology [facility] 400 [facility] [address] Cem Madrigal MD [address] [place] [address] 12/04/2024 1:20 PM EDT Office Visit [facility] [address] [place] [address] Melissa Cruz PA-C [address] [place] [address] 01/23/2025 10:15 AM EDT Hospital Encounter OR [facility], Operating Room, [facility] - 4th Floor [address] [place] [address] Joel Truong MD [address] [place] [address] 01/23/2025 10:15 AM EDT - 01/23/2025 10:59 AM EDT Surgery OR [facility], Operating Room, [facility] - 4th Floor [address] [place] [id number] Joel Truong MD [address] [place] [address] COLONOSCOPY FLEXIBLE PROXIMAL DIAGNOSTIC Scheduled Procedures Name [...] Medical Devices Implanted Type Area Director Of Recruitment Device Identifier Shelf Expiration Date Model / Serial / Lot Device Perm Cntrl [id number] - [id number] Implanted:Qty: 2 on 09/27/2015 by Sharda Ruiz, Corey Rucker MD at OR [facility] Uterus [employer] 05/03/2017 [id number] / / [id number] documented as of this encounter Visit Diagnoses [...] Power of Attor benoit? No Care Teams Metal Grader Relationship Specialty Start Date End Date Melissa Cruz PA-C [address] [facility] [address] [place] [address] PCP - General Physician Surveyor Oil Well Directional 06/02/21 documented as of this encounter
--- OUTSIDE RECORDS SUMMARY | 2024-12-08 15:17 | External Medical Summary | Summary of Care ---
Author Name Unknown Organization [facility] Address [address] [place] [address] Phone [phone] Care Team Providers Care Roads Superintendent Name Role Phone CarylMelissa mansfield [place] FONSECA Primary Care Provider [phone]- [phone] Reason for Visit * Reason Comments Wound Care BLEWounds are covere dUnna boots fell off on Sunday Encounter Details Date Type Department Care Team (Late st Contact Info) Description 09/15/2024 10:30 AM EST Nurse Only Wound Care, [facility] [address] [place] [address] [facility], Nurse Wound Care [address] [place] [address] Wound Care (BLE/Wounds are covered/Unna rickey... Allergies Active Allergy Reactions Criticality Noted Date Comments Aspirin 01/27/2014 Increased bleeding documented as of this encounter (statuses as of 09/15/2024) Medications traZODone (DESYREL) 50 MG Tablet Take [...] Capsule before bedtime. 90 Capsule 5 Active Nitrofurantoin Macrocrystal 50 MG Oral Capsule (Macrodantin) Take 1 Capsule by mouth in the morning and 1 Capsule at noon and 1 Capsule in the evening and 1 Capsule before bedtime. Do all this for 7 days. Until gone. 28 Capsule 5 09/17/19 25 Active documented as of this encounter (statuses as of 09/15/2024) Active Problems Problem Noted Date Diagnosed Date [...] as of this encounter (statuses as of 09/15/2024) Resolved Problems Problem Noted Date Diagnosed Date Resolved Date Chronic ulcer of lower extremity 07/29/2024 09/04/2024 [...] as of this encounter (statuses as of 09/15/2024) Immunizations Name Administration Dates Next Due Pneumococcal Conjugate Vacci ne, 20-valent ([id number]) 12/04/2022 Pneumococcal Polysaccharide PPV23 (Pneumovax) 05/06/2011 Seasonal [...] No 03/10/2024 Does the household have a dzilth-na-o-dith-hle health centerlar source of income? (Household - [...] money to get more. Patient declined 12/2023 Do you need food for this week? No 07/10/2024 Comments No Sex and Gender Information [...] * Patient Instructions* Veda Jacobson CMA - 09/15/2024 11:27 AM EST Compression Therapy Education: Any questions, redness or swelling around the wound and development of a temperature of 101F or greater, please contact the [facility] [place]. Please check your toes frequently. If they become blue, purple, pale, cool, numb, and/or tingling elevate your leg higher than your heart for one hour. If you have no relief of the symptoms, cut the entire wrap off and call the [facility] [place], . Keep the wrap dry. If the wrap slides down or bunches at the ankle, call [facility] [place]. Elevate legs above heart for 30 minutes [...] Nursing Notes * Veda Jacobson CMA - 09/15/2024 11:17 AM EST Treatment done as ordered by Dr. Hilario Vaseline applied to dry feet and to all open wound beds [...] with coban layer and then size 5 Surgilast Socks and sneakers applied Compression education reviewed with patient and she voiced her understanding. Advised patient to contact the office should she have questions/concerns before her appointment Sunday Discharge Instructions: Unna Boot You will be [...] or greater, please contact the [facility] [place]. Please check your toes frequently. If they become blue, purple, pale, cool, numb, and/or tingling elevate your leg higher than your heart for one hour. If you have no relief of the symptoms, cut the entire wrap off and call the [facility] [place], . Keep the wrap dry. If the wrap slides down or bunches at the ankle, call [facility] [place]. Elevate legs above heart for 30 minutes 2-3 times a day. * Veda Jacobson CMA - 09/15/2024 11:11 AM EST Images from the original note were not included. Chief Complaint Patient presents with Wound Care BLE Wounds are covered Unna boots fell off on Sunday Patient was instructed to not get up [...] water and towel dried. Patient tolerated well RLE proximal anterior wound appears to be smaller with 50% slough and 50% granulation RLE Medial wounds appear 50 % slough and 50% granulation with moderate serous exudate LLE medial knee wound appears smaller with 26-50% slough and 51-75% red granulation tissue - moderate serous exudate documented in this encounter Plan of Treatment Upcoming Encounters Date Type Department Care Team (Late st Contact Info) Description 09/16/2024 10:40 AM EST Office Visit [facility] [address] [place] [address] Cyn Haynes MD [address] [place] [address] 09/19/2024 10:30 AM EST Nurse Only Wound Care, [address] [place] [address] [facility], Nurse Wound Care [address] [place] [address] 09/22/2024 10:30 AM EST Nurse Only Wound Care, [address] [place] [address] [facility], Nurse Wound Care [address] [place] [address] [place] [address] 09/26/2024 10:30 AM EST Nurse Only Wound Care, [address] [place] [address] [facility], Nurse Wound Care [address] [place] [address] [place] [address] 09/29/2024 11:00 AM EST Office Visit Wound Care, [address] [place] [address] Yuriy Hilario MD [address] [place] [address] 09/30/2024 11:00 AM EST Telemedicine Pharmacy, [place] [facility] [place] [address] [facility] [place] [address] 10/03/2024 11:40 AM EST Nurse Only Ancillary, [place] [address] [place] [address] [place], Nurse Ancillary [address] [place] [address] 10/09/2024 12:58 PM EST Hospital Encounter OR [facility], Operating Room, [facility] - 4th Floor [address] [place] [address] Bigg Wetzel MD [address] [facility] [address] 10/09/2024 12:58 PM EST - 10/09/2024 1:59 PM EST Surgery OR [facility], Operating Room, [facility] - 4th Floor [address] [place] [address] Bigg Wetzel MD [address] [place] [address] COLONOSCOPY FLEXIBLE PROXIMAL DIAGNOSTIC 10/24/2024 10:00 AM EDT Office Visit Cardiology, [place] [address] [place] [address] Darnell Boggs DO [address] [place] [address] 11/19/2024 11:00 AM EDT Office Visit Orthopaedics, [address], [place] [address] [place] [address] [place] [address] Wilian Augustinlas Reno, DO [address] [place] [address] 12/04/2024 1:20 PM EDT Office Visit [facility] [address] [place] [id number] Melissa Cruz PA-C [address] [place] [address] Scheduled Procedures Name Priority Associated Diagnoses Date/Ti me COLONOSCOPY FLEXIBLE PROXIMAL DIAGNOSTIC Screening for colon cancer 10/09/2024 12:58 PM EST Health Maintenance Due Date Last [...] encounter Medical Devices Implanted Type Area Manager Operating Device Identifier Shelf Expiration Date Model / Serial / Lot Device Perm Cntrl [id number] - [id number] Implanted:Qty: 2 on 09/27/2015 by Sharda Ruiz, Corey Rucker MD at OR [facility] Uterus [employer] 05/03/2017 [id number] / / [id number] documented as of this encounter Visit Diagnoses [...] Power of Attor benoit? No Care Teams Roads Superintendent Relationship Specialty Start Date End Date Melissa Cruz PA-C [address] [facility] [place] [address] PCP - General Physician Silviculture Professor 06/02/21 documented as of this encounter
--- OUTSIDE RECORDS SUMMARY | 2024-12-08 15:17 | External Medical Summary ---
Author Name Unknown Address Unknown Organization : Laboratory Report Ordering Provider Test Date Status ADY SÁNCHEZ 09/16/2024 11:06:00 Final Observation Date Value Abnormality Reference (Units ) Status Color of Urine by Auto 09/16/2024 11:06:00 [place] Abnormal Light Yellow, Yellow Final Clarity, Urine 09/16/2024 11:06:00 Clear Clear Final Glucose [Mass/volume] in Urine by Automated test strip 09/16/2024 11:06:00 Negative Negative (mg/dL) Final Bilirubin.total [Presence] in Urine by Automated test strip 09/16/2024 11:06:00 Negative Negative Final Ketones [Mass/volume] in Urine by Automated test strip 09/16/2024 11:06:00 Negative Negative (mg/dL) Final Specific gravity, Urine 09/16/2024 11:06:00 >=1.030 1.003-1.030 Final Hemoglobin [Presence] in Urine by Automated test strip 09/16/2024 11:06:00 Negative Negative Final pH, Urine 09/16/2024 11:06:00 5.5 5.0, 5.5, 6.0, 6.5, 7.0, 7.5 (units) Final Protein [Mass/volume] in Urine by Automated test strip 09/16/2024 11:06:00 Negative Negative (mg/dL) Final Urobilinogen, Urine 09/16/2024 11:06:00 1.0 0.2, 1.0 (mg/dL) Final Nitrite [Presence] in Urine by Automated test strip 09/16/2024 11:06:00 Negative Negative Final Leukocyte esterase [Presence] in Urine by Automated test strip 09/16/2024 11:06:00 Negative Negative Final Performing Location
--- OUTSIDE RECORDS SUMMARY | 2024-12-08 15:17 | External Medical Summary | Summary of Care ---
Author Name Unknown Organization [facility] Address [address] [place] [address] Phone [phone] Care Team Providers Care Spiritual Advisor Name Role Phone Melissa Cruz Chang HOPKINS-C Primary Care Provider [phone] Reason for Referral * Evaluate & Treat - Unlimited Visits (Within 10 days (routine)) - Pending Review Specialty Diagnoses / Procedures Referred By Phylicia zambrano Referred To Contact [facility]ER - Urogynecology / Gynecology Urology Diagnoses Urinary urgency Dysuria Cyn Haynes MD [address] [place] [address] Phone: tel: fax: Referral ID Status Reason Start Date Expiration Date Visits Requested Visits Authorized [id number] Pending Review Specialty Services Required 09/16/[phone] Question Answer Referral Priority Within 10 days (routine) Where should this appointment be scheduled? [facility] What condition is the patient being referred for? Chronic Bladder Pain/Interstitial Cystitis/Dysuria Reason for Visit * Reason Comments Urinary Tract Infection Symptoms Ongoing urgency, "tickly" feeling with urination, orange urine ~ 9 days Encounter Details Date Type Department Care Team (Late st Contact Info) Description 09/16/2024 10:40 AM EST Office Visit [facility] [address] [place] [address] Cyn Haynes MD [address] [place] [address] Bipolar disorder, current episode depressed, moderate (HCC)*; Vaccine for viral hepatitis; Urinary urgency; Dysuria Allergies Active Allergy Reactions Criticality Noted Date Comments Aspirin 01/27/2014 Increased bleeding documented as of this encounter (statuses as of 09/16/2024) Medications traZODone (DESYREL) 50 MG Tablet Take [...] as of this encounter (statuses as of 09/16/2024) Active Problems Problem Noted Date Diagnosed Date [...] as of this encounter (statuses as of 09/16/2024) Resolved Problems Problem Noted Date Diagnosed Date [...] as of this encounter (statuses as of 09/16/2024) Immunizations Name Administration Dates Next Due HEPATITIS B VACCINE, RECOMB, 20 MCG/ML, ADULT (HEPLISAV-B) 09/16/2024 Pneumococcal Conjugate Vacci ne, 20-valent ([id number]) 12/04/2022 Pneumococcal Polysaccharide PPV23 (Pneumovax) 05/06/2011 Seasonal [...] Passive Smoke Exposure: Current Smokeless Tobacco: Never Tobacco Cessation:Counseling Given: Not [...] Sign Reading Time Taken Comments Blood Pressure 118/72 09/16/2024 10:28 AM EST Pulse 76 09/16/2024 10:28 AM EST Temperature 36.6 °C (97.9 °F) 09/16/2024 1 0:28 AM EST Respiratory Rate 18 09/16/2024 10:2 8 AM EST Oxygen Saturation 98% 09/16/2024 10: 28 AM EST Inhaled Oxygen Concentration - - Weight 152.6 kg (336 lb 6.4 oz) 025 10:28 AM EST Height - - Body Mass Index 67.91 07/29/2024 10:52 AM EST documented in this encounter Progress Notes * Cyn Haynes MD - 09/16/2024 11:19 AM EST Images from the original note were not included. Subjective Mica Jimenez is a 49 year old female that presents for Urinary Tract Infection Symptoms (Ongoing urgency, "tickly" feeling with urination, orange urine ~ 9 days ) History of Present Illness The patient presents with urinary symptoms, including urgency and a 'weird' sensation during urination. She describes the sensation as a 'tickling feeling,' but denies any burning. The urine is notedto be an 'orangish' color. The patient denies any recent medication changes, except for an antibiotic. She had a recent urinalysis, which showed red blood cells and other abnormalities, but she was no t taking any urinary analgesics at the time. She was started on nitrofurantoin for a suspected urinary tract infection. The patient also reports new back pain in the kidney area, which is different from her baseline back pain. She has a history of kidney stents. The patient also reports a recent increase in her Buspar and Cymbalta dosages. She denies any urinary incontinence currently, but reports three episodes of incontinence at the onset of her urinary symptoms. Objective Vitals: 09/16/24 1028 Temp: 97.9 °F (36.6 °C) Pulse: 76 Resp: 18 SpO2: 98% BP: 118/72 BP Readings from Last 3 Encounters: 09/16/24 118/72 09/04/24 120/70 07/29/24 118/60 Physical Exam BP 118/72 | Pulse 76 | Temp 97.9 °F (36.6 °C) (Tympanic) | Resp 18 | Wt (!) 336 lb 6.4 oz (152.6 kg) | LMP 08/28/2024 (Exact Date) | SpO2 98% | BMI 67.91 kg/m² | BSA 2.52 m² General: alert and healthy Back: no costovertebral angle tenderness I have reviewed the following results: Results Urine culture and urinalysis and Urinalysis, POC Assessment and Plan Assessment & Plan Urinary Symptoms Reports urgency to urinate, abnormal sensation during urination, and orange- colored urine. No burning sensation. Recent history of urinary tract infection treated with nitrofurantoin. No current incontinence. Noted recent increase in Cymbalta from 20mg to 60mg, --> contributing to symptoms? -Order urine dipstick to assess for presence of blood. -If blood present in urine, consider imaging to evaluate for possible kidney stones. -If no blood present in urine, refer to urogynecologist for further evaluation of possible bladder prolapse. -Consider impact of Cymbalta on urinary symptoms in consultation with urogynecologist. New Back Pain Reports new back pain in kidney area. History of kidney stents. -If blood present in urine, consider imaging to evaluate for possible kidney stones. General Health Maintenance -Schedule mammogram at patient's convenience. Bipolar disorder, current episode depressed, moderate (HCC) (Primary) Defer change in Cymbalta for now, will wait for urogyn recs Unsure if this is contributing to her symptoms Vaccine for viral hepatitis - HEP B VACC ADULT, 2 DOSE (HEPLISAV) IM Urinary urgency - URINALYSIS, POINT OF CARE - UROGYNECOLOGY CLINIC REFERRAL OP (FEMALE ONLY) Dysuria - UROGYNECOLOGY CLINIC REFERRAL OP (FEMALE ONLY) Follow-up: Return if symptoms worsen or fail to improve. | Check-out note: Needs mammogram Time: I spent a total of 20-29 minutes (exact time 25 mins) on the date of service in preparation, delivery, and documentation of the care provided to Mica Jimenez excluding any time spent in the performance of separately billed services. Text in this note was generated using an [employer] documentation service. I discussed the use of a device to record and summarize our discussion today. All persons present during the encounter consented to its use. documented in this encounter Nursing Notes * Jasmina Weinstein LPN - 09/16/2024 10:37 AM EST Pre-Administration Time Out Procedure Performed: Yes Patient Identified (Ask Name/Date of ): Yes Does the patient have a fever greater than 101 degrees today? No Patient allergic to latex? No Has the patient ever fainted after receiving an injection? No VFC Stock: No Immunization(s) verified: Yes, Immunization Name: Heplisav-B (Hepatitis B Vaccine Adult), VIS Sheet(s) given: Yes Verified Side and Site: Yes Verified Shot(s) with Parent(s)/Patient: Yes * Jasmina Weinstein LPN - 09/16/2024 10:30 AM EST Chief Complaint Patient presents with Urinary Tract Infection Symptoms Ongoing urgency, "tickly" feeling with urination, orange urine ~ 9 days Declines mammo & colon ca screening. PAP scheduled with PCP. documented in this encounter Plan of Treatment Upcoming Encounters Date Type Department Care Team (Late st Contact Info) Description 09/19/2024 10:30 AM EST Nurse [address] [address] [facility], Nurse Wound Care [address] [place] [address] [place] [address] 09/22/2024 10:30 AM EST Nurse Only Wound Care, [address] [place] [address] [facility], Nurse Wound Care [address] [place] [address] 09/26/2024 10:30 AM EST Nurse Only Wound Care, [address] [place] [address] [facility], Nurse Wound Care [address] [place] [address] 09/29/2024 11:00 AM EST Office Visit Wound Care, [address] [place] [address] Yuriy Hilario MD [address] [place] [address] 09/30/2024 11:00 AM EST [facility] [address] [place] [address] [place] [address] 10/03/2024 11:40 AM EST Nurse Only Ancillary, [place] [address] [place] [address] [place], Nurse Ancillary [address] [place] [address] 10/09/2024 12:58 PM EST Hospital Encounter OR [facility], Operating Room, [facility] - 4th Floor [address] [place], [place] [address] [phone] Bigg Wetzel MD [address] [place] [address] 10/09/2024 12:58 PM EST - 10/09/2024 1:59 PM EST Surgery OR [facility], Operating Room, [facility] - 4th Floor [address] [place] [address] Bigg Wetzel MD [address] [place] [address] COLONOSCOPY FLEXIBLE PROXIMAL DIAGNOSTIC 10/24/2024 10:00 AM EDT Office Visit Cardiology, [address] [address] Darnell Boggs DO [address] [place] [address] 11/04/2024 1:00 PM EDT Appointment Radiology, [address] [place] [address] 11/19/2024 11:00 AM EDT Office Visit Orthopaedics, [facility] [address] [facility] [address] [place] [address] Wilian Augustin DO [address] [place] [phone] 11/27/2024 10:00 AM EDT Office Visit [employer] Urology [facility] [address] [place] [address] Cem Madrigal MD [address] [place] [address] 12/04/2024 1:20 PM EDT Office Visit [facility] [address] [place] [phone] Melissa Cruz PA-C [address] [place] [address] Scheduled Procedures Name Priority Associated Diagnoses Date/Ti me COLONOSCOPY FLEXIBLE PROXIMAL DIAGNOSTIC Screening for colon cancer 10/09/2024 12:58 PM EST Scheduled Referrals Name Type Priority Associated Diagnoses Order Schedule UROGYNECOLOGY CLINIC REFERRAL OP (FEMALE ONLY) Referral Within 10 days (routine) Urinary urgency Dysuria Ordered: 09/16/2024 Health Maintenance Due Date Last Done Comments [...] this encounter Medical Devices Implanted Type Area Hydraulic Rock Drill Operator Device Identifier Shelf Expiration Date Model / Serial / Lot Device Perm Cntrl [id number] - [id number] Implanted:Qty: 2 on 09/27/2015 by Sharda Ruiz, Corey Rucker MD at OR [facility] Uterus [employer] 05/03/2017 [id number] / / [id number] documented as of this encounter Procedures Procedure Name Priority Date/Time Associated Diagnosis Comments URINALYSIS, POINT OF CARE Routine 09/16/2024 11:06 AM EST Urinary urgency documented in this encounter Results * (ABNORMAL) URINALYSIS, POINT OF CARE (09/16/2024 11:06 AM EST) Color, Urine [place](A) Light Yellow, Yellow 09/16/2024 11:21 AM EST [facility]- Clarity, Urine Clear Clear 09/16/2024 11:21 AM EST LAB[facility]ATORY [place] [address]- Glucose, Urine Negative Negative mg/dL 09/16/2024 11:21 AM EST LAB[facility]ATORY [place] [address]- Bilirubin, Urine Negative Negative 09/16/2024 11:21 AM EST LABORATORY [facility]- Ketone, Urine Negative Negative mg/dL 09/16/2024 11:21 AM EST LABORATORY [facility]- Specific [place], Urine >=1.030 1.003 - 1.030 09/16/2024 11:21 AM EST LABORATORY [facility]- Blood, Urine Negative Negative 09/16/2024 11:21 AM EST LABORATORY [facility]- pH, Urine 5.5 5.0, 5.5, 6.0, 6.5, 7.0, 7.5 units 09/16/2024 11:21 AM EST LABORATORY [facility]-89 Protein, Urine Negative Negative mg/dL 09/16/2024 11:21 AM EST LABORATORY [facility]- Urobilinogen, Urine 1.0 0.2, 1.0 mg/dL 09/16/2024 11:21 AM EST LABORATORY [facility]-89 Nitrite, Urine Negative Negative 09/16/2024 11:21 AM EST LAB[facility]ATORY [facility]- Esterase, Urine Negative Negative 09/16/2024 11:21 AM EST LABORATORY [facility]- Urine 09/16/2024 11:0 6 AM EST 09/16/2024 11:21 AM EST Cyn Haynes MD LAB POINT OF CARE TE ST DOCKED DEVICE UNSOLICITED RESULTS Final Result LABORATORY [address] [place] [address] documented in this encounter Visit Diagnoses Diagnosis Bipolar disorder, current episode depressed, moderate (HCC)- Primary Bipolar I disorder, most recent episode (or current) depressed, moderate Vaccine for viral hepatitis Need for prophylactic vaccination and inoculation against viral hepatitis Urinary urgency Urgency of urination Dysuria Screening for colon cancer Special screening for [...] Power of Attor benoit? No Care Teams Spiritual Advisor Relationship Specialty Start Date End Date Melissa Cruz PA-C [address] [id number] [place] [address] PCP - General Physician Pastry Artist 06/02/21 documented as of this encounter
--- OUTSIDE RECORDS SUMMARY | 2024-12-08 15:17 | External Medical Summary | Summary of Care ---
Author Name Unknown Organization [facility] Address [address] [place] [address] Phone [phone] Care Team Providers Care Relay Telegrapher Name Role Phone Melissa Cruz PA-C Primary Care Provider [phone] Reason for Referral * Evaluate & Treat - Unlimited Visits (Within 10 days (routine)) - Pending Review Specialty Diagnoses / Procedures Referred By Phylicia zambrano Referred To Contact Orthopaedic Surgery / Orthopedics Diagnoses Chronic right shoulder pain Melissa Cruz PA-C [address] [place] [address] Phone: tel: fax: Balwinder Mojica, [address] [address] Phone: tel: fax: Referral ID Status Reason Start Date Expiration Date Visits Requested Visits Authorized [id number] Pending Review Specialty Services Required 09/04/2024 [id number] Question Answer Referral Priority Within 10 days (routine) Where should this appointment be scheduled? [facility] What body part is the patient being seen for? Shoulder What condition is the patient being seen for? Sprain/Strain/Tear/Other Reason for Visit * Reason Onset Date Comments Hospital Follow-Up Pt was in [facility] for a "leg infection" Pt s tates "was to the dr on Sunday and he said they look great". Christina Cuadra, RAIL SIGNAL DESIGNER Hospital Follow-Up 09/04/2024 Encounter Details Date Type Department Care Team (Late st Contact Info) Description 09/04/2024 11:00 AM EST Office Visit [facility], [place] [address] [place] [address] Melissa Cruz PA-C [address] [place] [address] Hospital discharge follow-up*; Vaccine for viral hepatitis; Lymphedema; Cellulitis of right lower extremity; Multiple opens wound of lower extremity, unspecified laterality, subsequent encounter; Mild intermittent asthma without complication; Neuropathy; Bipolar disorder, current episode depressed, moderate (HCC); Gastroesophageal reflux disease, unspecified whether esophagitis present; LYNSEY (generalized anxiety disorder); PTSD (post-traumatic stress disorder); JORGE A (obstructive sleep apnea); Severe episode of recurrent major depressive disorder, without psychotic features (HCC); Chronic right shoulder pain; Primary osteoarthritis of right knee Allergies Active [...] MORNING 90 Tablet 1 08/27/19 25 Active Diclofenac Sodium 75 MG Oral Tablet Delayed Release (Voltaren)Indicat ions:Primary osteoarthritis of one knee, right TAKE BY MOUTH 1 TABLET IN THE MORNING AND 1 TABLET AT NOON AND 1 TABLET BEFORE BEDTIME. WITH FOOD.. 90 Tablet 5 12/03/19 24 2024 Discontinued Pregabalin 150 MG Oral Capsule (Lyrica)Indicatio ns:Neuropathy Take 1 Capsule by mouth in the morning and 1 Capsule at noon and 1 Capsule before bedtime. 45 Capsule 1 5 2:59 PM EST 07/21/20 24 2024 Discontinued(R efill) documented as of this encounter (statuses as [...] 09/16/2024) Immunizations Name Administration Dates Next Due Pneumococcal Conjugate Vacci ne, 20-valent ([id number]) 12/04/2022 Pneumococcal Polysaccharide PPV23 (Pneumovax) 05/06/2011 Seasonal [...] Sign Reading Time Taken Comments Blood Pressure 120/70 09/04/2024 11:03 AM EST Pulse 98 09/04/2024 11:03 AM EST Temperature 36.6 °C (97.8 °F) 09/04/2024 11:[address] Respiratory Rate 20 09/04/2024 11:03 AM EST Oxygen Saturation 97% 09/04/2024 11:03 AM EST Inhaled Oxygen Concentration - - Weight 156.7 kg (345 lb 8 oz) 09/04/2024 11:03 A M EST Height - - Body Mass Index 69.74 07/29/2024 10:52 AM EST documented in this encounter Patient Instructions * Patient Instructions* PannebaChristina fordELIZA - 09/04/2024 11:05 AM EST Diabetes: Keeping Feet Healthy Inspect your feet every day for signs of a problem. Diabetes can damage nerves in your feet and cause neuropathy. This condition makes it hard for you to feel injuries or sore spots. Diabetes can also change blood flow, making it harder for small problems, like a blister, to heal properly. In fact, minor injuries can quickly become serious infections that send you to the hospital. Practice self-care to protect your feet and keep them healthy. Take Special Care Inspect your feet daily for problems such as redness, blisters, cracks, dry skin, or numbness. Use a mirror to see the bottoms of your feet. Or, ask for help. Manage your diabetes. Monitor and control your blood sugar. Take all your medications as prescribed. Avoid walking barefoot, even indoors. Wash your feet with warm water and mild soap. Dry well, especially between toes. Don’t treat corns or calluses yourself. Talk to your doctor or director of accounts payable (a doctor who specializes in foot care) if you need assistance trimming your toenails. Use moisturizing cream or lotion if you have dry skin, but don’t use it between toes. Don’t use heating pads on your feet. If you have neuropathy, you could get a burn and not feel it. Stop smoking. Smoking restricts blood flow and can make it harder for wounds to heal. Have Regular Checkups Foot problems can develop quickly. So be sure to follow your healthcare team’s schedule for regular checkups. During office visits, take off your shoes and socks as soon as you get in the exam room. Ask your healthcare provider to examine your feet for problems. This will make it easier to find and treat small skin irritations before they get worse. Regular checkups can also help keep track of the blood flow and feeling in your feet. If you have neuropathy, you may need to have checkups more often. Wear Proper Footwear Wearing proper footwear is very important. If areas of your feet have been damaged by too much pressure, your healthcare provider may recommend changing your footwear. In some cases, avoiding high heels or tight work boots may be all that’s needed. Or, your healthcare provider may recommend special shoes or custom inserts. These help protect your feet and keep existing irritations from getting worse. If you need special footwear, ask your healthcare provider if you qualify for Medicare’s diabetic shoe program. Make Sure Shoes and Socks Fit Any pair of shoes--new or old--should feel comfortable as soon as you put them on. There shouldn’t be any rubbing when you walk. Wear the right shoe for any activity. For instance, a running shoe is designed to keep your feet injury-free while jogging. Buy shoes at the end of the day, when your feet are larger. Make sure they provide support without feeling too loose. Make sure your socks fit, t oo. Wear soft, seamless, well-padded socks for activity. Cotton or microfiber socks are best to help to absorb sweat. To protect your feet, avoid shoes that are open-toed or open-heeled. If you have questions about what kinds of shoes and socks are best, talk to your healthcare team. Get Regular Exercise Regular exercise improves blood flow in your feet. It also increases foot strength and flexibility.Gentle exercises, like walking or riding a stationary bicycle, are best. You can also do special foot exercises. Just be sure to talk with your healthcare provider before starting any exercise program. Also mention if any exercise causes pain, redness, or other signs of foot problems. Note: If you have any kind of break in the skin of your foot or ankle, keep the area clean. Then call your doctor--especially if the area doesn’t appear to be healing. © 1575-7447 [employer], [address] [place] [address], [place] [address]. All rights reserved. This information is not intended as a substitute for professional medical care. Always follow your healthcare professional's instructions. Vaccination is the best way to protect against hepatitis B. Depending on age and vaccine used most patients get 2 or 3 doses of hepatitis B vaccine. If you miss a dose or get behind schedule, get the next dose as soon as you can. There is no need to start over. Age for Hepatitis B Vaccine: INFANTS: *Infants whose mother HAS hepatitis B virus: #1 dose- at 2 month visit #2 dose- 1 month after dose #1 #3 dose- 7 months of age (at least 5 months after dose #1) *Infants whose mother does NOT have hepatitis B virus: #1 dose- - 2 months of age #2 dose- 1-4 months of age (at least 1 month after dose #1) #3 dose- 6-18 months of age ( at least 2 months after dose #2) *Adults at recommended age to receive Hepatitis B vaccine may receive 2 or 3 doses depending on thetype of vaccine administered: #1 dose- Now #2 dose- 1-2 months after dose #1 #3 dose- (if needed)- 4-6 months after dose #1 WHAT ARE THE RISKS FROM HEPATITIS B VACCINE? Hepatitis B vaccine is one of the safest vaccines. Getting the disease is much more likely to causeserious illness than getting the vaccine. MILD PROBLEMS: - soreness where the shot was given. - mild to moderate fever Acetaminophen or Ibuprofen (not aspirin) may be used to reduce fever and pain. SEVERE PROBLEMS: - serious allergic reaction is very rare. WHAT TO DO IF THERE IS A SERIOUS REACTION: - Call a doctor or get the person to a doctor right away. - Ask your doctor, nurse, or health department to file a Vaccine Adverse Event Report form. To filea report yourself you can call: (toll-free) LET YOUR DOCTOR KNOW IMMEDIATELY IF YOU HAVE DIFFICULTY BREATHING OR SWALLOWING, EXPERIENCE ITCHING OF FEET OR HANDS, HAVE SWELLING OF EYES, FACE OR INSIDE OF NOSE. documented in this encounter Progress Notes * Melissa Cruz PA-C - 09/04/2024 11:20 AM EST SUBJECTIVE: Mica Jimenez is a 49 year old female. Chief Complaint Patient presents with Hospital Follow-Up Pt was in [facility] for a "leg infection" Pt s tates "was to the dr on Sunday and he said they look great". Christina Cuadra LPN Hospital Follow-Up Recent Admission: Patient was recently admitted to [facility] 08/09/24. The date of discharge was 08/13/24. Discharge report received and reviewed. Wt Readings from Last 10 Encounters: 09/04/24 (!) 345 lb 8 oz (156.7 kg) 07/29/24 (!) 350 lb 14.4 oz (159.2 kg) 07/10/24 (!) 360 lb (163.3 kg) 05/30/24 (!) 368 lb (166.9 kg) 05/15/24 (!) 368 lb 11.2 oz (167.2 kg) 04/23/24 (!) 377 lb 14.4 oz (171.4 kg) 03/11/24 (!) 385 lb (174.6 kg) 03/10/24 (!) 385 lb 1.6 oz (174.7 kg) 10/19/23 (!) 363 lb (164.7 kg) 07/26/23 (!) 371 lb 4.8 oz (168.4 kg) HPI: Patient presents for hospital follow up of RLE cellulitis. IV antibiotics while hospitalized and discharged on oral, which she finished on Sunday. Following with Wound Clinic -- 3 times weekly and doing well. Now going twice weekly. Treating with Vaseline/Optifoam. Had UNNA boots, but has since cut them off (directed by Wound Clinic) as they were rolling down and digging into her legs. Down 30 pounds since last year. Was having heart palpitations in March where she went to the ED. Zio placed and found runs of NSVTand SVT. She is scheduled for Cardiology consult. Hasn't had palpitations since shortly after the monitor was removed. Asthma - Stable. Rare use of Ventolin. Usually during cold weather or illness. Denies SOB, wheezing, or increased sputum production. JORGE A - Has not been wearing CPAP. Lymphedema - Stable . Using daily Lasix. Bipolar/Depression/Anxiety/PTSD - Well controlled. Taking Cymbalta, Abilify, Lamictal, Trazodone, and Klonopin as prescribed by Psych at [facility]. Enjoying life. Reacting appropriately to stress. Denies suicidal thoughts/plans/actions. GERD - Well controlled with Prilosec. Denies difficulty swallowing, abdominal pain, or heartburn. Patient Active Problem List Diagnosis Calculus of kidney Esophageal reflux Lumbago Right knee DJD Asthma, mild persistent Recurrent major depressive disorder, in partial remission (HCC) JORGE A (obstructive sleep apnea) Lymphedema LYNSEY (generalized anxiety disorder) Bipolar disorder (HCC) PTSD (post-traumatic stress disorder) Class 3 severe obesity due to excess calories with serious comorbidity and body mass index (BMI) greater than or equal to 70 in adult ([facility]) Neuropathy Bipolar disorder, current episode depressed, moderate ([facility]) Chronic ulcer of lower extremity ([facility]) Heart failure ([facility]) Type 2 diabetes mellitus with hemoglobin A1c goal of less than 7.0% ([facility]) Current Outpatient Medications Medication Sig Dispense Refill [...] and 1 Tablet beforebedtime. 30 Tablet 1 Pregabalin 150 MG Oral Capsule (Lyrica) Take 1 Capsule by mouth in the morning and 1 Capsule at noon and 1 Capsule before bedtime. 45 Capsule 1 DULoxetine HCl 60 MG Oral Capsule [...] times a day as needed for Anxiety. Vitamin D3 50 MCG (2000 UT) Oral [...] DAY IN THE MORNING 90 Tablet 1 Diclofenac Sodium 75 MG Oral Tablet Delayed Release (Voltaren) TAKE BY MOUTH 1 TABLET IN THE MORNING AND 1 TABLET AT NOON AND 1 TABLET BEFORE BEDTIME. WITH FOOD.. (Patient not taking: Reported on 09/04/2024) 90 Tablet 5 No current facility-administered medications for this visit. Current and discharge medications have been reconciled. Review of patient's allergies indicates: Allergen Reactions Aspirin Increased bleeding Review of Systems: All reviewed and negative unless mentioned in HPI. OBJECTIVE: BP 120/70 | Pulse 98 | Temp 97.8 °F (36.6 °C) (Temporal Artery) | Resp 20 | Wt (!) 345 lb 8 oz (156.7 kg) | LMP 08/28/2024 (Exact Date) | SpO2 97% | BMI 69.74 kg/m² | BSA 2.55 m² Physical Exam: General: alert, no distress, obese Head: Normocephalic, No masses, lesions, tenderness or abnormalities Neck: supple, no adenopathy, no bruits, thyroid normal size, non-tender, without nodularity Heart: regular rate & rhythm, no murmurs and no gallops Lungs: clear to auscultation Pulses: radial=2/4, posterior tibial=2/4 Abdomen: abdomen soft, non-tender, normal bowel sounds Musculoskeletal: walks with stiff gait Extremities: bilateral LE lymphedema, legs wrapped Skin: skin color, texture, turgor are normal ASSESSMENT/PLAN: Hospital discharge follow-up (Primary) - DISCH MED RECON CUR MED LIS Lymphedema Cellulitis of right lower extremity Multiple opens wound of lower extremity, unspecified laterality, subsequent encounter - Follow up with Wound Care as directed. Mild intermittent asthma without complication Neuropathy Bipolar disorder, current episode depressed, moderate (HCC) Gastroesophageal reflux disease, unspecified whether esophagitis present LYNSEY (generalized anxiety disorder) PTSD (post-traumatic stress disorder) JORGE A (obstructive sleep apnea) Severe episode of recurrent major depressive disorder, without psychotic features (HCC) Follow Up: Return in about 3 months (around 12/03/2024) for PAP. I spent a total of 40-54 minutes (exact time 40 mins) minutes on the date of service in preparation, delivery, and documentation of the care provided to Mica Jimenez excluding any time spent inperformance of separately billed services. Melissa Cruz PA-C * Christina Cuadra LPN - 09/04/2024 11:05 AM EST Images from the original note were not included. Chief Complaint Patient presents with Hospital Follow-Up Pt was in [facility] for a "leg infection" Pt s tates "was to the dr on Sunday and he said they look great". Christina Cuadra LPN The importance of having a yearly diabetic eye exam has been discussed with patient. Order and/or Referral placed along with patient instructions. Provider made aware. Christina Cuadra LPN Diabetic Retinopathy: Evaluating Your Eyes Diabetic retinopathy is a condition that happens when diabetes damages blood vessels in the rear ofthe eye. It can lead to vision loss. To help catch it early, have a complete dilated eye exam at least once a year. During the exam, the eye healthcare provider will review your medical history, examine your eyes, and check your vision. Women who are and have pre-existing type 1 or type 2 diabetes have an increased risk of retinopathy. Women with diabetes should have an eye exam before or in the first trimester. They should continue to be monitored every trimester and for 1 year after delivery, depending on the severity of the retinopathy. The retina is the light-sensitive part of the eye that allows you to see. High blood sugar can damage blood vessels of the retina and cause them to leak or bleed. This damage can lead to abnormal blood vessel growth. This condition is called diabetic retinopathy. You may not have symptoms early in the disease. Later, there may be floaters, blurred vision, or poor night vision. There may also be partial or complete vision loss. Early cases of diabetic retinopathy can be treated by carefully controlling blood sugar, blood pressure, and cholesterol. Surgery or laser treatments may help restore lost vision. Laser surgery can shrink abnormal blood vessels or close ones that are leaking. Medicines injected in the eye can help decrease swelling of the retina. Home care Take all medicines, including insulin or oral diabetic medicine, exactly as prescribed. Follow the diet advised by your healthcare provider. If you have high cholesterol, follow a low-fat, low-cholesterol diet. Monitor blood sugars as advised. Try to achieve your ideal weight. If you smoke, quit smoking. Tobacco use worsens the effect of diabetes on your blood vessels. If you have high blood pressure, consider buying an automatic blood pressure machine. These are available at most pharmacies. Use this to monitor your blood pressure. Report your blood pressure readings to your healthcare provider. Exercise regularly. Follow-up care Follow up with your healthcare provider, or as advised. You must have a complete eye exam at least once a year, more often if needed. Untreated diabetic retinopathy can lead to complete loss of vision. Occupational therapists can help you adapt to any vision loss you have, including learning techniques to safely administer insulin. When to seek medical advice Call your healthcare provider right away if any of these occur. Increasing blurriness or any sudden changes in your vision Sudden flashes of light inside your eye New floaters (small dots or strings that seem to be moving across your field of vision) Eye pain, redness, or discharge from your eyelid New dark spots appearing in your field of vision Halos around lights Dimness of vision Partial or complete loss of vision Women with diabetes should have a complete eye exam before becoming , or as soon as possible when they find out they are . Retinopathy sometimes worsens during . Your eye exam Your eye healthcare provider uses an eye chart and other tools to check your vision. Then he or sheexamines your eyes for signs of disease. You are given eye drops to widen (dilate) your pupils. Youmay have one or more of the following tests: Tonometry to measure fluid pressure inside the eye. Slit lamp exam to allow the healthcare provider to view the structures of your eye. Ultrasound to create an image of the eye using sound waves. Ultrasound may be used if blood is found in the clear gel that fills the eye (vitreous). Ocular coherence tomography (OCT) to create an image of the retina using light waves. This shows ifthere is fluid leaking into certain parts of the eye. It can also measure the thickness of the retina. Fluorescein angiography This test may be done to check the health of the inside lining of the eye (retina). It also checks the tiny blood vessels (capillaries) that carry blood to the retina. During the test: Photographs are taken of the retina. A dye is then injected into the bloodstream through the arm or hand. The dye travels to the capillaries in the eye. More photographs are taken of the retina. The dye causes the capillaries to stand out on the photographs. You may feel brief nausea during the procedure. For a few hours after the test, your skin, eyes, and urine may appear yellow. Talk with your healthcare provider for more information about this test. Date Last Reviewed: 01/05/2016 © [employer]. [address] [place] [address]. All rights reserved. This information is not intended as a substitute for professional medical care. Always follow your healthcare professional's instructions. Urine albumin/creatinine ratio ordered today. Provider aware. Socks and Shoes Removed for Annual Diabetic Foot Screening RIGHT FOOT: No Reddened, Cracking, Or Open Areas Noted. RIGHT Dorsalis Pedis Pulse: Palpable RIGHT Posterior Tibial Pulse: Palpable RIGHT Monofilament:Patient reports feeling monofilament pressure on plantar surface of foot LEFT FOOT: No Reddened, Cracking or Open Areas Noted. LEFT Dorsalis Pedis Pulse: Palpable LEFT Posterior Tibial Pulse: Palpable LEFT Monofilament:Patient reports feeling monofilament pressure on plantar surface of foot Do you need diabetic shoes: No DM Foot Exam completed today. Provider aware. Christina Cuadra LPN Time Out Procedure Performed: Yes Patient Identified (Ask Name/Date of ): Yes Immunization(s) verified: Yes, VIS Sheet(s) given: Yes Verified Side and Site: Yes Verified Shot(s) with Patient: Yes Christina Cuadra LPN documented in this encounter Plan of Treatment Upcoming Encounters Date Type Department Care Team (Late st Contact Info) Description 09/16/2024 10:40 AM EST Office Visit [facility] [address] [place] [address] Cyn Haynes MD [address] [place] [address] 09/19/2024 10:30 AM EST Nurse Only Wound Care, [address] [address] [facility], Nurse Wound Care [address] [place] [address] 09/22/2024 10:30 AM EST Nurse Only Wound Care, [address] [address] [facility], Nurse Wound Care [address] [place] [address] 09/26/2024 10:30 AM EST Nurse Only Wound Care, [address] [address] [facility], Nurse Wound Care [address] [place] [address] 09/29/2024 11:00 AM EST Office Visit Wound Care, [address] [address] Yuriy Hilario MD [address] [place] [address] 09/30/2024 11:00 AM EST Telemedicine Pharmacy, [place] [address] [facility] [place] [address] [place] [address] [place] [address] 10/03/2024 11:40 AM EST Nurse Only Ancillary, [place] [address] [address] [place], Nurse Ancillary [address] [place] [address] 10/09/2024 12:58 PM EST Hospital Encounter OR [facility], Operating Room, [facility] - 4th Floor [address] [place] [address] Bigg Wetzel MD [address] [place] [address] 10/09/2024 12:58 PM EST - 10/09/2024 1:59 PM EST Surgery OR [facility], Operating Room, [facility] - 4th Floor [address] [place] [address] Bigg Wetzel MD [address] [place] [address] COLONOSCOPY FLEXIBLE PROXIMAL DIAGNOSTIC 10/24/2024 10:00 AM EDT Office Visit Cardiology, [place] [address] [place] [address] Darnell Boggs, [address] [place] [address] 11/19/2024 11:00 AM EDT Office Visit Orthopaedics, [facility] [place] [address] [facility] [address] [place] [address] Wilian Augustin, [address] [place] [phone] 12/04/2024 1:20 PM EDT Office Visit [facility] [address] [place] [id number] Melissa Cruz PA-C [address] [place] [phone] Scheduled Procedures Name Priority Associated Diagnoses Date/Ti me COLONOSCOPY FLEXIBLE PROXIMAL DIAGNOSTIC Screening for colon cancer 10/09/2024 12:58 PM EST Scheduled Referrals Name Type Priority Associated Diagnoses Order Schedule ORTHOPAEDICS REFERRAL OP Referral Within 10 days (routine) Chronic right shoulder pain Ordered: 09/04/2024 Health Maintenance Due Date Last Done Comments [...] this encounter Medical Devices Implanted Type Area Thermo Processor Device Identifier Shelf Expiration Date Model / Serial / Lot Device Perm Cntrl [id number] - [id number] Implanted:Qty: 2 on 09/27/2015 by Sharda Ruiz, Corey Rucker MD at OR [facility] Uterus [employer] 05/03/2017 [id number] / [id number] documented as of this encounter Procedures Procedure Name Priority Date/Time Associated Diagnosis Comments EXTRA URINE ALIQUOT Routine 09/04/2024 1 2:07 PM EST Neuropathy Primary osteoarthritis of right knee PAIN MANAGEMENT DRUG PANEL, URINE W/ INTERPRETATION Routine 09/04/2024 12:07 PM EST Neuropathy Primary osteoarthritis of right knee BENZODIAZEPINES, URINE CONFIRMATION Routine 09/04/2024 12:07 PM EST Neuropathy Primary osteoarthritis of right knee documented in this encounter Results * BENZODIAZEPINES, URINE CONFIRMATION (09/04/2024 12:07 PM EST) Methodology LC-MS/MS 09/09/2024 12:39 PM EST [facility] Alpha-Hydroxyal prazolam Confirmation, U Negative Negative 09/09/2024 12:39 PM EST [facility] 7-Aminoclonazep am Confirmation, U Negative Negative 09/09/2024 12:39 PM EST [facility] Nordiazepam Confirmation, U Negative Negative 09/09/2024 12:39 PM EST [facility] Oxazepam Confirmation, U Negative Negative 09/09/2024 12:39 PM EST [facility] Temazepam Confirmation, U Negative Negative 09/09/2024 12:39 PM EST [facility] Lorazepam Confirmation, U Negative Negative 09/09/2024 12:39 PM EST [facility] Urine Urine specimen / Unknown Non-blood Collection / Unknown 09/04/2024 12:07 PM EST 09/04/2024 12:07 PM EST [facility] - 09/09/2024 12:39 PM EST Cutoff Concentrations: Drug Level Alpha-Hydroxyalprazolam 10 ng/mL 7-Aminoclonazepam 20 ng/mL Nordiazepam 20 ng/mL Oxazepam 20 ng/mL Temazepam 20 ng/mL Lorazepam 10 ng/mL This test was developed and its performance characteristics determined by [employer]. It has not been cleared or approved by the [place] Food and Drug Administration. us Melissa Cruz PA-C LAB URINE ORDERABLES Final Result [facility] [address] [facility] [place] [address] * EXTRA URINE ALIQUOT (09/04/2024 12:07 PM EST) Urine Urine specimen / Unknown Non-blood Collection / Unknown 09/04/2024 12:07 PM EST 09/04/2024 12:07 PM EST Melissa Cruz PA-C LAB URINE ORDERABLES Final Result [facility] [address] [place] [address] * (ABNORMAL) PAIN MANAGEMENT DRUG PANEL, URINE W/ INTERPRETATION (09/04/2024 12:07 PM EST) Pain Management Interpretation Based on the medication information provided: The absence of 7-aminoclonaze ana is CONSISTENT with the last dose of clonazepam taken 4 days prior to urine drug testing. 09/09/2024 1:00 PM EST [facility] Comment:Changed Report: Prev iously reported on 09/05/2024 at 1339 EST. See Results History in [facility] for previous versions of the report. Amphetamines Screen, U Negative Negative 09/09/2024 1:00 PM EST [facility] Benzodiazepines Screen, U Refer to confirmation results(A) Negative 09/09/2024 1:00 PM EST [facility] Cannabinoids Screen, U Negative Negative 09/09/2024 1:00 PM EST [facility] Cocaine Metabolite Screen, U Negative Negative 09/09/2024 1:00 PM EST LABORATORY C Fentanyl Screen, U Negative Negative 2024 1:00 PM EST LABORATORY C Hydrocodone Screen, U Negative Negative 09/09/2024 1:00 PM EST [facility] Methadone Metabolite Screen, U Negative Negative 09/09/2024 1:00 PM EST LABORATORY C Morphine/Codeine Screen, U Negative Negative 09/09/2024 1:00 PM EST LABORATORY C Oxycodone Screen, U Negative Negative 09/09/2024 1:00 PM EST [facility] Specimen Validity Interpretation Normal 09/09/2024 1:00 PM EST [facility] Creatinine, U 107 mg/dL 09/09/2024 1:00 PM EST [facility] Urine Urine specimen / Unknown Non-blood Collection / Unknown 09/04/2024 12:07 PM EST 09/04/2024 12:07 PM EST Narrative [facility] - 09/09/2024 1:00 PM EST Cutoff Concentrations: Drug Level Amphetamines 500 ng/mL Benzodiazepines 100 ng/mL Cannabinoids 50 ng/mL Cocaine Metabolite 150 ng/mL Fentanyl 1 ng/mL Hydrocodone / Hydromorphone 300 ng/mL Methadone Metabolite 100 ng/mL Morphine / Codeine 300 ng/mL Oxycodone / Oxymorphone 100 ng/mL Screening results are presumptive and can only be used for medical purposes. Confirmatory testing is available upon request. us Melissa Cruz PA-C LAB URINE ORDERABLES Final Result [facility] [address] [facility] [place] [address] documented in this encounter Visit Diagnoses Diagnosis Hospital discharge follow-up- Primary Other follow-up examination Vaccine for viral hepatitis Need for prophylactic vaccination and inoculation against viral hepatitis Lymphedema Other lymphedema Cellulitis of right lower extremity Cellulitis and abscess of leg, except foot Multiple opens wound of lower extremity, unspecified laterality, subsequent encounter Mild intermittent asthma without complication Unspecified asthma Neuropathy Mononeuritis of unspecified site Bipolar disorder, current episode depressed, moderate (HCC) Bipolar I disorder, most recent episode (or current) depressed, moderate Gastroesophageal reflux disease, unspecified whether esophagitis present LYNSEY (generalized anxiety disorder) Generalized anxiety disorder PTSD (post-traumatic stress disorder) Posttraumatic stress disorder JORGE A (obstructive sleep apnea) Obstructive sleep apnea (adult) (pediatric) Severe episode of recurrent major depressive disorder, without psychotic features (HCC) Chronic right shoulder pain Pain in joint, shoulder region Primary osteoarthritis of right knee Primary localized [...] Power of Attor benoit? No Care Teams Relay Telegrapher Relationship Specialty Start Date End Date Melissa Cruz PA-C [address] [facility] [address] [place] [address] PCP - General Physician Nut Culler 06/02/21 documented as of this encounter
--- OUTSIDE RECORDS SUMMARY | 2024-12-08 15:17 | External Medical Summary | Summary of Care ---
Author Name Unknown Organization [facility] Address [address] [place] [address] Phone [phone] Care Team Providers Care Ring Striker Name Role Phone CarylTy mansfieldanthony Adam PA-C Primary Care Provider +1- [phone] Encounter Details Date Type Department Care Team (Late st Contact Info) Description 06/18/2024 Telephone Wound Care, [facility] [address] [place] [address] Yuriy Hilario MD [address] [place] [address] Allergies Active Allergy Reactions Criticality Noted Date Comments Aspirin 01/27/2014 Increased bleeding documented as of this encounter (statuses as of 09/18/2024) Medications traZODone (DESYREL) 50 MG Tablet Take [...] as of this encounter (statuses as of 09/18/2024) Active Problems Problem Noted Date Diagnosed Date [...] as of this encounter (statuses as of 09/18/2024) Resolved Problems Problem Noted Date Diagnosed Date [...] as of this encounter (statuses as of 09/18/2024) Immunizations Name Administration Dates Next Due Pneumococcal Conjugate Vacci ne, 20-valent ([id number]) 12/04/2022 Pneumococcal Polysaccharide PPV23 (Pneumovax) 05/06/2011 Seasonal [...] Telephone Encounter - Anaid Beasley OSA - 06/18/2024 8:31 AM EST Called patient and she is scheduled. * Telephone Encounter - Naima Brady OSA - 06/18/2024 8:08 AM EST Patient calling in to schedule appointment for next Sunday the with Dr Hilario. Please advise Naima Stout documented in this encounter Plan of Treatment Upcoming Encounters Date Type Department Care Team (Late st Contact Info) Description 09/19/2024 10:30 AM EST Nurse Only Wound Care, [address] [address] [facility], Nurse Wound Care [address] [place] [address] 09/22/2024 10:30 AM EST Nurse Only Wound Care, [address] [address] [facility], Nurse Wound Care [address] [place] [address] 09/26/2024 10:30 AM EST Nurse Only Wound Care, [address] [address] [facility], Nurse Wound Care [address] [place] [address] 09/29/2024 11:00 AM EST Office Visit Wound Care, [address] [address] Yuriy Hilario MD [address] [place] [address] 09/30/2024 11:00 AM EST Telemedicine Pharmacy, [place] 21 [place] [address] [facility] 21 [place] [address] 10/03/2024 11:40 AM EST Nurse Only Ancillary, [place] [address] [place] [address] [place], Nurse Ancillary [address] [place] [address] 10/09/2024 12:58 PM EST Hospital Encounter OR GL, Operating Room, [facility] - 4th Floor 400 [facility] [place] [address] Bigg Wetzel MD [address] [place] [address] 10/09/2024 12:58 PM EST - 10/09/2024 1:59 PM EST Surgery OR [facility], Operating Room, [facility] - 4th Floor [address] [facility] [place] [address] Bigg Wetzel MD [address] [place] [address] COLONOSCOPY FLEXIBLE PROXIMAL DIAGNOSTIC 10/24/2024 10:00 AM EDT Office Visit Cardiology, [address] [place] [address] Darnell Boggs DO [address] [facility] [address] 11/04/2024 1:00 PM EDT Appointment Radiology, [facility] [address] [facility] [place] [address] 11/19/2024 11:00 AM EDT Office Visit Orthopaedics, [facility] [address] [facility] [address] [place] [address] Wilian Augutsin DO [address] [place] [phone] 11/27/2024 10:00 AM EDT Office Visit RECORDING STUDIO INTERN Urology [facility] [address] [facility] [place] [address] Cem Madrigal MD [address] [place] [address] 12/04/2024 1:20 PM EDT Office Visit [facility], [place] [address] [place] [address] Melissa Cruz PA-C [address] [place] [address] Scheduled Procedures Name Priority Associated Diagnoses Date/Ti [...] encounter Medical Devices Implanted Type Area Behavioral Assistant Device Identifier Shelf Expiration Date Model / Serial / Lot Device Perm Cntrl [id number] - [id number] Implanted:Qty: 2 on 09/27/2015 by Sharda Ruiz, Corey Rucker MD at OR [facility] Uterus [employer] 05/03/2017 [id number] / / [id number] documented as of this encounter Additional Health [...] of Attor benoit? No Care Teams Ring Striker Relationship Specialty Start Date End Date Melissa Cruz PA-C [address] [id number] [place] [address] PCP - General Physician Quality Assurance Lab Technician 06/02/21 documented as of this encounter
--- OUTSIDE RECORDS SUMMARY | 2024-12-08 15:17 | External Medical Summary | Summary of Care ---
Author Name Unknown Organization [facility] Address [address] [place] [address] Phone [phone] Care Team Providers Care Medical Librarian Name Role Phone Anthony Melissa Adam PA-C Primary Care Provider +1- [phone] Reason for Visit * Reason Onset Date Comments Appointment 09/15/2024 Encounter Details Date Type Department Care Team (Late st Contact Info) Description 09/15/2024 Telephone Access Center, [address] *DO NOT REMOVE THIS DEPARTMENT* [place] [address] Services, Scheduling [address] [place] [address] Appointment Allergies Active Allergy Reactions Criticality Noted [...] 1 Capsule before bedtime. 90 Capsule Active Nitrofurantoin Macrocrystal 50 MG Oral Capsule [...] Next Due Pneumococcal Conjugate Vacci ne, 20-valent ([id number]) 12/04/2022 Pneumococcal Polysaccharide PPV23 (Pneumovax) 05/06/2011 Seasonal [...] Telephone Encounter - Kalyn Rivera OSA - 09/15/2024 1:27 PM EST I spoke with the patient and she cannot schedule an afternoon appointment. She will keep the appointment 09/22/24 at 10:30 am for now and will try to obtain transportation. * Telephone Encounter - Veda Jacobson CMA - 09/15/2024 1:14 PM EST Unable to accommodate - there are no morning appointments open If she would like to come around 3 we can make that work * Telephone Encounter - Britney Pride OSA - 09/15/2024 12:46 PM EST Pt has an appt for 09/22 and is asking to reschedule for 09/23. No appts offered via [employer]. Please advise. documented in this encounter Plan of Treatment Upcoming Encounters Date Type Department Care Team (Late st Contact Info) Description 09/16/2024 10:40 AM EST Office Visit [facility] [address] [place] [address] Cyn Haynes MD [address] [place] [address] 09/19/2024 10:30 AM EST Nurse Only Wound Care, [address] [address] [facility], Nurse Wound Care [address] [place], [place] [address] [address] 09/22/2024 10:30 AM EST Nurse Only Wound Care, [address] [address] [facility], Nurse Wound Care [address] [place], [place] [address] [address] 09/26/2024 10:30 AM EST Nurse Only Wound Care, [address] [address] [facility], Nurse Wound Care [address] [place], [place] [address] [address] 09/29/2024 11:00 AM EST Office Visit Wound Care, [facility] [address] [facility] [address] Yuriy Hilario MD 27 [facility] [place] [address] 09/30/2024 11:00 AM EST Telemedicine Pharmacy, [place] [facility] [address] [place], [facility] 21 [facility] [place] [address] 10/03/2024 11:40 AM EST Nurse Only Ancillary, [place] [address] [place] [address] [place], Nurse Ancillary [address] [place] [address] 10/09/2024 12:58 PM EST Hospital Encounter OR GL, Operating Room, [facility] Floor [address] [facility] [place] [address] Bigg Wetzel MD [address] [address] 10/09/2024 12:58 PM EST - 10/09/2024 1:59 PM EST Surgery OR [facility], Operating Room, [facility] Floor 400 [facility] [place] [address] Bigg Wetzel MD [address] [place] [address] COLONOSCOPY FLEXIBLE PROXIMAL DIAGNOSTIC 10/24/2024 10:00 AM EDT Office Visit Cardiology, [place] [facility] [place] [address] Darnell Boggs DO 400 [place] [address] 11/19/2024 11:00 AM EDT Office Visit Orthopaedics, [address], [place] [address] [place] [address] Wilian Augustin, [address] [place] [phone] 12/04/2024 1:20 PM EDT Office Visit [facility] [address] [place] [phone] Melissa Cruz PA-C [address] [place] [address] Scheduled Procedures Name Priority Associated Diagnoses Date/Ti [...] this encounter Medical Devices Implanted Type Area Antique Repairer Device Identifier Shelf Expiration Date Model / Serial / Lot Device Perm Cntrl [id number] - [id number] Implanted:Qty: 2 on 09/27/2015 by Sharda Ruiz, Corey Rucker MD at OR [facility] Uterus [employer] 05/03/2017 [id number] / / [id number] documented as of this encounter Advance Directives [...] of Attor benoit? No Care Teams Medical Librarian Relationship Specialty Start Date End Date Melissa Cruz PA-C [address] [id number] [place] [address] PCP - General Physician Teacher Lip Reading 06/02/21 documented as of this encounter
--- OUTSIDE RECORDS SUMMARY | 2024-12-08 15:17 | External Medical Summary | Summary of Care ---
Author Name Unknown Organization [facility] Address [address] [place] [address] Phone [phone] Care Team Providers Care Spin Tank Tender Name Role Phone Anthony Melissa Adam PA-C Primary Care Provider +1- [phone] Reason for Visit * Reason Onset Date Comments Appointment 09/15/2024 Encounter Details Date Type Department Care Team (Late st Contact Info) Description 09/15/2024 Telephone Access Center, [address] *DO NOT REMOVE THIS DEPARTMENT* [place] [address] Services, Scheduling [address] [place] [address] Appointment Allergies Active Allergy Reactions Criticality Noted [...] Next Due Pneumococcal Conjugate Vacci ne, 20-valent ([id number]) 12/04/2022 Pneumococcal Polysaccharide PPV23 (Pneumovax) 05/06/2011 Seasonal [...] reschedule for 09/23. No appts offered via [employer]. Please advise. documented in this encounter Plan of Treatment Upcoming Encounters Date Type Department Care Team (Late st Contact Info) Description 09/16/2024 10:40 AM EST [facility] [address] [place] [address] Cyn Haynes MD [address] [place] [address] 09/19/2024 10:30 AM EST Nurse Only Wound Care, [address] [address] [facility], Nurse Wound Care [address] [place], [place] [address] [address] 09/22/2024 10:30 AM EST Nurse Only Wound Care, [address] [address] [facility], Nurse Wound Care [address] [place], [place] [address] [address] 09/26/2024 10:30 AM EST Nurse Only Wound Care, [address] [address] [facility], Nurse Wound Care [address] [place], [place] [address] [address] 09/29/2024 11:00 AM EST Office Visit Wound Care, [facility] 400 [facility] [address] Yuriy Hilario MD 27 [facility] [place] [address] 09/30/2024 11:00 AM EST Telemedicine Pharmacy, [place] [facility] [address] [place], [facility] 21 [facility] [place] [address] 10/03/2024 11:40 AM EST Nurse Only Ancillary, [place] [address] [place] [address] [place], Nurse Ancillary [address] [place] [address] 10/09/2024 12:58 PM EST Hospital Encounter OR GL, Operating Room, [facility] Floor 400 [facility] [place] [address] Bigg Wetzel MD [address] [facility] [place] [address] 10/09/2024 12:58 PM EST - 10/09/2024 1:59 PM EST Surgery OR [facility], Operating Room, [facility] Floor 400 [facility] [place] [address] Bigg Wetzel MD [address] [place] [address] COLONOSCOPY FLEXIBLE PROXIMAL DIAGNOSTIC 10/24/2024 10:00 AM EDT Office Visit Cardiology, [place] [address] [facility] [place] [address] Darnell Boggs DO 400 [facility] [place] [address] 11/19/2024 11:00 AM EDT Office Visit Orthopaedics, [address], [place] [address] [place] [address] Wilian Augustin, [address] [place] [phone] 12/04/2024 1:20 PM EDT [facility] [address] [place] [phone] Melissa Cruz PA-C [address] [place] [address] Scheduled Procedures Name Priority Associated Diagnoses Date/Ti [...] this encounter Medical Devices Implanted Type Area Plumbing Assembler Device Identifier Shelf Expiration Date Model / Serial / Lot Device Perm Cntrl [id number] - [id number] Implanted:Qty: 2 on 09/27/2015 by Sharda Ruiz, Corey Rucker MD at OR [facility] Uterus [employer] 05/03/2017 [id number] / / [id number] documented as of this encounter Advance Directives [...] Power of Attor benoit? No Care Teams Spin Tank Tender Relationship Specialty Start Date End Date Melissa Cruz PA-C [address] [address] [place] [address] PCP - General Physician Hydraulic Blocker 06/02/21 documented as of this encounter
--- OUTSIDE RECORDS SUMMARY | 2024-12-08 15:17 | External Medical Summary | Summary of Care ---
Author Name Unknown Organization [facility] Address [address] [place] [address] Phone [phone] Care Team Providers Care Fluid Pump Operator Name Role Phone Anthony Melissa Adam PA-C Primary Care Provider +1- [phone] Reason for Visit * Reason Onset Date Comments Appointment 09/15/2024 Encounter Details Date Type Department Care Team (Late st Contact Info) Description 09/15/2024 Telephone Access Center, [address] *DO NOT REMOVE THIS DEPARTMENT* [place] [address] Services, Scheduling [address] [place] [address] Appointment Allergies Active Allergy Reactions Criticality Noted [...] Next Due Pneumococcal Conjugate Vacci ne, 20-valent ([id number]) 12/04/2022 Pneumococcal Polysaccharide PPV23 (Pneumovax) 05/06/2011 Seasonal [...] reschedule for 09/23. No appts offered via [employer]. Please advise. documented in this encounter Plan of Treatment Upcoming Encounters Date Type Department Care Team (Late st Contact Info) Description 09/16/2024 10:40 AM EST Office Visit [facility] [address] [place] [place] [address] Cyn Haynes MD [address] [place] [address] 09/19/2024 10:30 AM EST Nurse Only Wound Care, [address] [address] [facility], Nurse Wound Care [address] [place], [place] [address] [address] 09/22/2024 10:30 AM EST Nurse Only Wound Care, [address] [address] [facility], Nurse Wound Care [address] [place], [place] [address] [address] 09/26/2024 10:30 AM EST Nurse Only Wound Care, [address] [address] [facility], Nurse Wound Care [address] [place], [place] [address] [address] 09/29/2024 11:00 AM EST Office Visit Wound Care, [facility] [address] [facility] [address] [address] Yuriy Hilario MD 27 [facility] [place] [address] 09/30/2024 11:00 AM EST Telemedicine Pharmacy, [place] [facility] [address] [place], [facility] 21 [facility] [place] [address] 10/03/2024 11:40 AM EST Nurse Only Ancillary, [place] [address] [place] [place] [address] [place], Nurse Ancillary [address] [place] [address] 10/09/2024 12:58 PM EST Hospital Encounter OR GL, Operating Room, [facility] Floor [facility] [place] [address] Bigg Wetzel MD [address] [facility] [place] [address] 10/09/2024 12:58 PM EST - 10/09/2024 1:59 PM EST Surgery OR [facility], Operating Room, [facility] Floor [address] [facility] [place] [address] Bigg Wetzel MD [address] [place] [address] COLONOSCOPY FLEXIBLE PROXIMAL DIAGNOSTIC 10/24/2024 10:00 AM EDT Office Visit Cardiology, [place] 400 [facility] [place] [address] Darnell Boggs DO [address] [place] [address] 11/19/2024 11:00 AM EDT Office Visit Orthopaedics, [address], [place] [address] [place] [address] Wilian Augustin, [address] [place] [phone] 12/04/2024 1:20 PM EDT Office Visit [facility] [address] [place] [place] [phone] Melissa Cruz PA-C [address] [place] [place] [address] Scheduled Procedures Name Priority Associated Diagnoses Date/Ti [...] this encounter Medical Devices Implanted Type Area Aging Room Operator Device Identifier Shelf Expiration Date Model / Serial / Lot Device Perm Cntrl [id number] - [id number] Implanted:Qty: 2 on 09/27/2015 by Sharda Ruiz, Corey Rucker MD at OR [facility] Uterus [employer] 05/03/2017 [id number] / / [id number] documented as of this encounter Advance Directives [...] Power of Attor benoit? No Care Teams Fluid Pump Operator Relationship Specialty Start Date End Date Melissa Cruz PA-C [address] [id number] [place] [address] PCP - General Physician Valve Grinder 06/02/21 documented as of this encounter
--- OUTSIDE RECORDS SUMMARY | 2024-12-08 15:18 | External Medical Summary ---
Author Name Unknown Address Unknown Organization K01:[facility] - [address] [facility] [address] Laboratory Report Ordering Provider Test Date Status ADY SÁNCHEZ 09/09/2024 12:03:03 Final Observation Date Value Abnormality Reference (Units ) Status Color of Urine by Auto 09/09/2024 12:03:03 Yellow Colorless, Light Yellow, Yellow, Dark Yellow Final Clarity, Urine 09/09/2024 12:03:03 Slightly Cloudy Abnormal Clear Final Glucose [Mass/volume] in Urine by Automated test strip 09/09/2024 12:03:03 Negative Negative (mg/dL) Final Bilirubin.total [Presence] in Urine by Automated test strip 09/09/2024 12:03:03 Negative Negative Final Ketones [Mass/volume] in Urine by Automated test strip 09/09/2024 12:03:03 Negative Negative (mg/dL) Final Specific gravity, Urine 09/09/2024 12:03:03 1.026 1.003-1.030 Final Hemoglobin [Presence] in Urine by Automated test strip 09/09/2024 12:03:03 Negative Negative Final pH, Urine 09/09/2024 12:03:03 6.5 5.0-7.5 (Units) Final Protein [Mass/volume] in Urine by Automated test strip 09/09/2024 12:03:03 Trace Abnormal Negative (mg/dL) Final Urobilinogen [Mass/volume] in Urine by Automated test strip 09/09/2024 12:03:03 Normal Normal (mg/dL) Final Nitrite [Presence] in Urine by Automated test strip 09/09/2024 12:03:03 Positive Abnormal Negative Final Leukocyte esterase [Presence] in Urine by Automated test strip 09/09/2024 12:03:03 Large Abnormal Negative Final RBC, Urine 09/09/2024 12:03:03 6-9 Abnormal 0-2 (/HPF) Final WBC, Urine 09/09/2024 12:03:03 30-49 Abnormal 0-2 (/HPF) Final Bacteria [#/area] in Urine sediment by Microscopy high power field 09/09/2024 12:03:03 >200 Abnormal 0-25 (/HPF) Final Epithelial cells.squamous [#/area] in Urine sediment by Microscopy high power field 09/09/2024 12:03:03 Many Abnormal None (/HPF) Final Calcium oxalate crystals [#/area] in Urine sediment by Microscopy high power field 09/09/2024 12:03:03 20-29 Abnormal None (/HPF) Final Hyaline casts, Urine 09/09/2024 12:03:03 1-4 Abnormal None (/LPF) Final CULTURE, URINE - [facility] 09/09/2024 12:03:03 Final Quantitative urine culture t o be performed Performing Location [facility] - [address] [facility] [address]
--- OUTSIDE RECORDS SUMMARY | 2024-12-08 15:18 | External Medical Summary | Summary of Care ---
Author Name Unknown Organization [facility] Address [address] [place] [address] Phone [phone] Care Team Providers Care Clothing Man Name Role Phone Melissa Cruz PA-C Primary Care Provider +1- [phone] Reason for Visit * Reason Onset Date Comments Appointment 09/05/2024 Ortho Encounter Details Date Type Department Care Team ([facility] st Contact Info) Description 09/05/2024 Telephone [facility][1] [address] [place] [address] Melissa Cruz PA-C [address] [place] [address] Appointment (Ortho/) Allergies Active Allergy Reactions Criticality Noted Date Comments Aspirin 01/27/2014 Increased bleeding documented as of this encounter (statuses as of 09/05/2024) Medications traZODone (DESYREL) 50 MG Tablet Take [...] 4 Active Pregabalin 150 MG Oral Capsule (Lyrica)Indicatio ns:Neuropathy Take 1 Capsule by mouth in the morning and 1 Capsule at noon and 1 Capsule before bedtime. 45 Capsule 1 08/18/2024 2:59 PM EST 4 Active DULoxetine HCl 60 MG [...] THE MORNING 90 Tablet 1 5 Active documented as of this encounter (statuses as of 09/05/2024) Active Problems Problem Noted Date Diagnosed Date [...] as of this encounter (statuses as of 09/05/2024) Resolved Problems Problem Noted Date Diagnosed Date [...] as of this encounter (statuses as of 09/05/2024) Immunizations Name Administration Dates Next Due Pneumococcal Conjugate Vacci ne, 20-valent ([id number]) 12/04/2022 Pneumococcal Polysaccharide PPV23 (Pneumovax) 05/06/2011 Seasonal [...] encounter Miscellaneous Notes * Telephone Encounter - Janette Garay OSA - 09/05/2024 12:51 PM EST Spk with pt and scheduled appt * Telephone Encounter - Leonarda Lofton OSA - 09/05/2024 8:25 AM EST Patient left without checking out. Needs scheduled for Orthopedics referral. documented in this encounter Plan of Treatment Upcoming Encounters Date Type Department Care Team (Latest Contact Info) Description 09/09/2024 10:30 AM EST Nurse Only Wound Care, [address] [place] [address] [facility], Nurse Wound Care [address] [facility] [place] [address] 09/12/2024 10:30 AM EST Nurse Only Wound Care, [address] [place] [address] [facility], Nurse Wound Care [address] [place] [address] 09/15/2024 10:30 AM EST Nurse Only Wound Care, [address] [place] [address] [facility], Nurse Wound Care [address] [place] [address] 09/16/2024 1:00 PM EST Office Visit Wound Care, [place] [address] [place] [address] Vinnie Blount MD [address] [place] [address] 09/19/2024 10:30 AM EST Nurse Only Wound Care, [address] [place] [address] [facility], Nurse Wound Care [address] [place] [address] 09/22/2024 10:30 AM EST Nurse Only Wound Care, [address] [place] [address] [facility], Nurse Wound Care [address] [place] [address] 09/26/2024 10:30 AM EST Nurse Only Wound Care, [address] [place] [address] [facility], Nurse Wound Care [address] [place] [address] 09/29/2024 11:00 AM EST Office Visit Wound Care, [address] [place] [address] Yuriy Hilario MD [address] [place] [address] 10/03/2024 11:40 AM EST Nurse Only Ancillary, [place] [address] [place] [address] [place], Nurse Ancillary [address] [place] [phone] 10/09/2024 12:58 PM EST Hospital Encounter OR [facility], Operating Room, [facility] - 4th Floor [address] [place] [phone] Bigg Wetzel MD [address] [place] [address] 10/09/2024 12:58 PM EST - 10/09/2024 1:59 PM EST Surgery OR [facility], Operating Room, [facility] - 4th Floor [address] [place] [phone] Bigg Wetzel MD [address] [place] [address] COLONOSCOPY FLEXIBLE PROXIMAL DIAGNOSTIC 10/24/2024 10:00 AM EDT Office Visit Cardiology, [place] [address] [place] [address] Darnell Boggs, [address] [facility] [place] [address] 11/19/2024 11:00 AM EDT [facility] Juan Carlos [address] [place] [address] Wilian Augustin, DO [address] [place] [phone] 12/04/2024 1:20 PM EDT Office Visit [facility][1] [address] [place] [phone] Melissa Cruz PA-C [address] [place] [address] Scheduled Procedures Name Priority Associated Diagnoses Date/Ti [...] this encounter Medical Devices Implanted Type Area Tar Boiler Device Identifier Shelf Expiration Date Model / Serial / Lot Device Perm Cntrl [id number] - [id number] Implanted:Qty: 2 on 09/27/2015 by Sharda Ruiz, Corey Rucker MD at OR [facility] Uterus [employer] 05/03/2017 [id number] / / [id number] documented as of this encounter Advance Directives [...] Power of Attor benoit? No Care Teams Clothing Man Relationship Specialty Start Date End Date Melissa Cruz PA-C [address] [address] [place] [address] PCP - General Physician Advisory Services Associate 06/02/21 documented as of this encounter
--- OUTSIDE RECORDS SUMMARY | 2024-12-08 15:18 | External Medical Summary | Summary of Care ---
Author Name Unknown Organization [facility] Address [address] [place] [address] Phone [phone] Care Team Providers Care Cable Coverer Name Role Phone Melissa Cruz Chang FONSECA Primary Care Provider +1- [phone] Reason for Visit * Reason Comments Wound Care Encounter Details Date Type Department Care Team (Late st Contact Info) Description 09/09/2024 10:30 AM EST Nurse Only Wound Care, [facility] [address] [place], [place] [phone] [facility], Nurse Wound Care [address] [place] [address] Wound Care Allergies Active Allergy Reactions Criticality Noted Date Comments Aspirin 01/27/2014 Increased bleeding documented as of this encounter (statuses as of 09/10/2024) Medications traZODone (DESYREL) 50 MG Tablet Take [...] as of this encounter (statuses as of 09/10/2024) Active Problems Problem Noted Date Diagnosed Date [...] as of this encounter (statuses as of 09/10/2024) Resolved Problems Problem Noted Date Diagnosed Date [...] as of this encounter (statuses as of 09/10/2024) Immunizations Name Administration Dates Next Due Pneumococcal Conjugate Vacci ne, 20-valent ([id number]) 12/04/2022 Pneumococcal Polysaccharide PPV23 (Pneumovax) 05/06/2011 Seasonal [...] No 03/10/2024 Does the household have a [facility] source [facility] income? (Household - [...] Pressure - - Pulse - - Temperature 36.6 °C (97.9 °F) 09/09/2024 10:[address] Respiratory Rate - - Oxygen Saturation - - Inhaled Oxygen Concentration - - Weight - - Height - - Body Mass Index - - documented in this encounter Patient Instructions * Patient Instructions* Venus Strong RN - 09/09/2024 12:52 PM EST Compression Therapy Education: Any questions, redness or swelling around the wound and development of a temperature of 101F or greater, please contact the [facility]. Please check your toes frequently. If they become blue, purple, pale, cool, numb, and/or tingling elevate your leg higher than your heart for one hour. If you have no relief of the symptoms, cut the entire wrap off and call the [facility], . Keep the wrap dry. If the wrap slides down or bunches at the ankle, call [facility]. Elevate legs above heart for 30 minutes 2-3 times a day. documented in this encounter Nursing Notes * Venus Strong RN - 09/09/2024 12:45 PM EST Patient arrived via wheelchair and transferred to wound chair without assist. Unnaboots were removed by patient because she states they "fell down" on Sunday, one day after application. She has wounds covered with ABD's and tape. Dressings are removed and wounds washed with soap and water, towel dried. Periwound areas are red and excoriated today. Photos and measurements completed. Applied calmoseptine to periwounds, vaseline to woundbeds, Optifoam Ag over wounds, secured with Kerlix and Zincunnaboots to bilateral lower legs. Assisted to reapply socks and shoes and transferred to check outvia wheelchair. documented in this encounter Plan of Treatment Upcoming Encounters Date Type Department Care Team (Latest Contact Info) Description 09/12/2024 10:30 AM EST Nurse Only Wound Care, [address] [address] [facility], Nurse Wound Care [address] [place] [address] 09/15/2024 10:30 AM EST Nurse Only Wound Care, [address] [address] [facility], Nurse Wound Care [address] [place] [address] 09/16/2024 1:00 PM EST Office Visit Wound Care, [place] [address] [place] [address] Vinnie Blount MD [address] [place] [address] 09/19/2024 10:30 AM EST Nurse Only Wound Care, [address] [address] [facility], Nurse Wound Care [address] [place] [address] 09/22/2024 10:30 AM EST Nurse Only Wound Care, [address] [address] [facility], Nurse Wound Care [address] [place] [address] 09/26/2024 10:30 AM EST Nurse Only Wound Care, [address] [place] [address] [facility], Nurse Wound Care [address] [place] [address] 09/29/2024 11:00 AM EST Office Visit Wound Care, [address] [address] Yuriy Hilario MD [address] [place] [address] 10/03/2024 11:40 AM EST Nurse Only Ancillary, [place] [address] [place] [address] [place], Nurse Ancillary [address] [place] [address] 10/09/2024 12:58 PM EST Hospital Encounter OR [facility], Operating Room, [facility] - 4th Floor [address] [place] [phone] Bigg Wetzel MD [address] [facility] [place] [place] [address] 10/09/2024 12:58 PM EST - 10/09/2024 1:59 PM EST Surgery OR [facility], Operating Room, [facility] - 4th Floor [address] [place] [address] [place] [address] Bigg Wetzel MD [address] [place] [address] COLONOSCOPY FLEXIBLE PROXIMAL DIAGNOSTIC 10/24/2024 10:00 AM EDT Office Visit Cardiology, [place] [address] [place] [address] Darnell Boggs, DO [address] [place] [address] 11/19/2024 11:00 AM EDT Office Visit Orthopaedics, [address], [place] [address] [place] [address] Wilian Augustin, DO [address] [place] [phone] 12/04/2024 1:20 PM EDT [facility] [address] [place] [address] Melissa Cruz PA-C [address] [place] [address] Scheduled Procedures Name Priority Associated Diagnoses Date/Ti [...] this encounter Medical Devices Implanted Type Area Kaiako Kohanga Reo Device Identifier Shelf Expiration Date Model / Serial / Lot Device Perm Cntrl [id number] - [id number] Implanted:Qty: 2 on 09/27/2015 by Sharda Ruiz, Corey Rucker MD at OR [facility] Uterus [employer] 05/03/2017 [id number] / / [id number] documented as of this encounter Visit Diagnoses Diagnosis Multiple open wounds of lower leg, unspecified laterality, subsequent encounter- Primary Lymphedema Other lymphedema Irritant contact dermatitis due to other body fluid Multiple open wounds of lower leg, unspecified laterality, initial encounter Class 3 severe obesity due to excess [...] Power of Attor benoit? No Care Teams Cable Coverer Relationship Specialty Start Date End Date Melissa Cruz PA-C [address] [address] [place] [address] PCP - General Physician Seal Extrusion Operator 06/02/21 documented as of this encounter
--- OUTSIDE RECORDS SUMMARY | 2024-12-08 15:18 | External Medical Summary | Summary of Care ---
Author Name Unknown Organization [facility] Address [address] [place] [address] Phone [phone] Care Team Providers Care Appeals Examiner Name Role Phone Melissa Cruz Jair FONSECA Primary Care Provider +1- [phone] Reason for Visit * Reason Comments Wound Care BLE -- WOUNDS EDEMA Encounter Details Date Type Department Care Team (Late st Contact Info) Description 09/05/2024 10:30 AM EST Nurse Only Wound Care, [facility] [address] [place] [address] [facility], Nurse Wound Care [address] [place] [address] Wound Care (BLE -- WOUNDS EDEMA ) [...] Next Due Pneumococcal Conjugate Vacci ne, 20-valent ([id number]) 12/04/2022 Pneumococcal Polysaccharide PPV23 (Pneumovax) 05/06/2011 Seasonal [...] Patient Instructions * Patient Instructions* Megha López, REVENUE SETTLEMENTS ADMINISTRATOR - 09/05/2024 11:11 AM EST Discharge Instructions: Unna Boot You [...] Nursing Notes * Megha López LPN - 09/05/2024 11:11 AM EST ASSISTED TO SIT ON EXAM SEATING -- from w/c [place] start visit by saying , " I hope your not mad at me , I used tape on my skin to hold things in place. I told her I can not be mad at her as she haddone the dressings for herself as we have asked her to be doing. Covering wounds is critical in keeping risk of infection down as no hair was noted in wounds this date. I said wrapping is difficult and understood tape is easiest for her to apply. I stated I was happy that she did as we always ask her to do and change the dressings should they come loose and expose her wounds.Discharge Instructions: Unna Boot You will be going [...] boot dressing that smells different than usual She then stated she does not wantUnna Boots on today if she does not have too. I stated we have to apply treatment as per 's order , she however has the right to refuse. Mica stated no she will wear the Unna Boots , but can she please take them off to shower this Sunday prior to her visit on Sunday -- noted to be Sunday not Sunday. I told her she can remove Unna boots and dressings as long after her shower she replace the treatments to wounds and use Filiberto Wraps on legs as compression as per 's recommendations at prior visits. I reminded her it is great for her to keep up her end of care as we can only do our part when she is here and that leaves the remainder care up to her. Mica stated , " yeahyou are right". Wounds then legs washed with soap and water - towel dried tolerated well. We discussed at this timeher getting something to gently clean wound beds as well. Mica said she will get something this -- even super soft tooth brushes they have at store. Dressings applied as follows. Vaseline to Wound beds -- skim coat applied to each site - covered with Opticel foam silver pad - Foam pad cut in half and placed on lateral aspect of each foot as well per her request. Kerlix was then run from toes to over knee followed by Ilana Boot -- Surgilast #5 applied to protect coban layer. No photos taken this date due to already being competed this week and no significant changes to note. Assisted with socks and sneakers then to exit exam seating aware to call with any questions or concerns documented in this encounter Plan of Treatment Upcoming Encounters Date Type Department Care Team (Latest Contact Info) Description 09/09/2024 10:30 AM EST Nurse Only Wound Care, [address] [place] [address] [facility], [facility] [address] [facility] [place] [address] 09/12/2024 10:30 AM EST Nurse Only Wound Care, [address] [place] [address] [facility], Nurse Wound Care [address] [place] [address] 09/15/2024 10:30 AM EST Nurse Only Wound Care, [address] [address] [facility], Nurse Wound Care [address] [place] [address] 09/16/2024 1:00 PM EST Office Visit Wound Care, [place] [address] [place] [address] Vinnie Blount MD [address] [place] [address] 09/19/2024 10:30 AM EST Nurse Only Wound Care, [address] [address] [facility], Nurse Wound Care [address] [place] [address] 09/22/2024 10:30 AM EST Nurse Only Wound Care, [address] [address] [facility], Nurse Wound Care [address] [place] [address] 09/26/2024 10:30 AM EST Nurse Only Wound Care, [address] [address] [facility], Nurse Wound Care [address] [place] [address] 09/29/2024 11:00 AM EST Office Visit Wound Care, [address] [address] Yuriy Hilario MD [address] [place] [address] 10/03/2024 11:40 AM EST Nurse Only Ancillary, [place] [address] [place] [address] [place], Nurse Ancillary [address] [place] [address] 10/09/2024 12:58 PM EST Hospital Encounter OR [facility], Operating Room, [facility] - 4th Floor [address] [place] [address] Bigg Wetzel MD [address] [place] [address] 10/09/2024 12:58 PM EST - 10/09/2024 1:59 PM EST Surgery OR [facility], Operating Room, [facility] - 4th Floor [address] [place] [address] Bigg Wetzel MD [address] [place] [address] COLONOSCOPY FLEXIBLE PROXIMAL DIAGNOSTIC 10/24/2024 10:00 AM EDT Office Visit Cardiology, [place] [address] [facility] [place] [address] Darnell Boggs, [address] [facility] [place] [address] 11/19/2024 11:00 AM EDT [facility] [address] [place] [address] Wilian Augustin [address] [place] [phone] 12/04/2024 1:20 PM EDT Office Visit [facility] [address] [place] [address] Melissa Cruz PA-C [address] [place] [phone] Scheduled Procedures Name Priority Associated Diagnoses Date/Ti [...] this encounter Medical Devices Implanted Type Area Assembler Fluorescent Lights Device Identifier Shelf Expiration Date Model / Serial / Lot Device Perm Cntrl [id number] - [id number] Implanted:Qty: 2 on 09/27/2015 by Sharda Ruiz, Corey Rucker MD at OR [facility] Uterus [employer] 05/03/2017 [id number] / / [id number] documented as of this encounter Visit Diagnoses Diagnosis Multiple open wounds of lower leg, unspecified laterality, subsequent encounter- Primary Lymphedema Other lymphedema Class 3 severe obesity due to excess calories with serious comorbidity and body mass index (BMI) greater than or equal to 70 in adult ([facility]) Irritant contact dermatitis due to other body [...] Power of Attor benoit? No Care Teams Appeals Examiner Relationship Specialty Start Date End Date Melissa Cruz PA-C [address] [facility] [address] [place] [address] PCP - General Physician Electrical Logging Operator 06/02/21 documented as of this encounter
--- OUTSIDE RECORDS SUMMARY | 2024-12-08 15:18 | External Medical Summary | Summary of Care ---
Author Name Unknown Organization [facility] Address [address] [place] [address] Phone [phone] Care Team Providers Care Rn Mds Coordinator Name Role Phone Melissa Wilkins PA-C Primary Care Provider +1- [phone] Reason for Visit * Reason Onset Date Comments Medication Refill 09/08/2024 Encounter Details Date Type Department Care Team (Late st Contact Info) Description 09/08/2024 Refill [facility] [address] [place] [address] Melissa Wilkins PA-C [address] [place] [address] Neuropathy Allergies Active Allergy Reactions Criticality Noted Date Comments Aspirin 01/27/2014 Increased bleeding documented as of this encounter (statuses as of 09/09/2024) Medications traZODone (DESYREL) 50 MG Tablet Take [...] Capsule before bedtime. 90 Capsule 5 Active Pregabalin 150 MG Oral Capsule (Lyrica)Indicati ons:Neuropathy Take 1 Capsule by mouth in the morning and 1 Capsule at noon and 1 Capsule before bedtime. 45 Capsule 1 08/18/2024 2:59 PM EST 4 09/08/19 25 Discontin ued(Refil l) documented as of this encounter (statuses as of 09/09/2024) Active Problems Problem Noted Date Diagnosed Date [...] as of this encounter (statuses as of 09/09/2024) Resolved Problems Problem Noted Date Diagnosed Date [...] as of this encounter (statuses as of 09/09/2024) Immunizations Name Administration Dates Next Due Pneumococcal Conjugate Vacci ne, 20-valent ([id number]) 12/04/2022 Pneumococcal Polysaccharide PPV23 (Pneumovax) 05/06/2011 Seasonal [...] Telephone Encounter - Melissa Wilkins PA-C - 09/08/2024 2:08 PM ESTSigned Prescriptions: Disp Refills Pregabalin 150 MG Oral Capsule (Lyrica) 90 Cap*0 Sig: Take 1 Capsule by mouth in the morning and 1 Capsule at noon and 1 Capsule before bedtime. Authorizing Provider: MELISSA WILKINS * Telephone Encounter - Julieth Mitchell CCMA - 09/08/2024 11:23 AM ESTPending Prescriptions: Disp Refills Pregabalin 150 MG Oral Capsule (Lyrica) 45 Cap*1 Sig: Take 1 Capsule by mouth in the morning and 1 Capsule at noon and 1 Capsule before bedtime. * Telephone Encounter - Mariela Banegas PHARM Tech - 09/08/2024 11:13 AM EST Patient calling requesting Pregabalin 150mg Oral capsule. Upon chart review, medication was last prescribed by hospital. Pt did schedule a hospital follow up visit. Please advise if you wish to continue this therapy for the patient. Thank you, Mariela Banegas Freight Trucker [facility] 09/08/2024,11:13 AM documented in this encounter Plan of Treatment Upcoming Encounters Date Type Department Care Team (Latest Contact Info) Description 09/09/2024 10:30 AM EST Nurse Only Wound Care, [address] [address] [facility], Nurse Wound Care [address] [place], [place] [address] [address] 09/12/2024 10:30 AM EST Nurse Only Wound Care, [address] [address] [facility], Nurse Wound Care [address] [place], [place] [address] [address] 09/15/2024 10:30 AM EST Nurse Only Wound Care, [address] [address] [facility], Nurse Wound Care [address] [place] [address] 09/16/2024 1:00 PM EST Office Visit Wound Care, [place] [address] [place] [address] Vinnie Blount MD [address] [place] [address] 09/19/2024 10:30 AM EST Nurse Only Wound Care, [address] [address] [facility], Nurse Wound Care [address] [place] [address] 09/22/2024 10:30 AM EST Nurse Only Wound Care, [address] [address] [facility], Nurse Wound Care [address] [place] [address] 09/26/2024 10:30 AM EST Nurse Only Wound Care, [address] [address] [facility], Nurse Wound Care [address] [place] [address] 09/29/2024 11:00 AM EST Office Visit Wound Care, [address] [address] Yuriy Hilario MD [address] [place] [address] 10/03/2024 11:40 AM EST Nurse Only Ancillary, [place] [address] [place] [address] [place], Nurse Ancillary [address] [place] [address] 10/09/2024 12:58 PM EST Hospital Encounter OR [facility], Operating Room, [facility] - 4th Floor [address] [place] [phone] Bigg Wetzel MD [address] [place] [address] 10/09/2024 12:58 PM EST - 10/09/2024 1:59 PM EST Surgery OR [facility], Operating Room, [facility] - 4th Floor [address] [place] [address] Bigg Wetzel MD [address] [place] [address] COLONOSCOPY FLEXIBLE PROXIMAL DIAGNOSTIC 10/24/2024 10:00 AM EDT Office Visit Cardiology, [place] 400 [facility] [place] [address] Darnell Boggs, [address] [facility] [place] [address] 11/19/2024 11:00 AM EDT Office Visit Orthopaedics, [address], [place] [address] [place] [address] Wilian Augustin, [address] [place] [phone] 12/04/2024 1:20 PM EDT Office Visit [facility] [address] [place] [address] Melissa Wilkins PA-C [address] [place] [address] Scheduled Procedures Name Priority Associated Diagnoses Date/Ti [...] this encounter Medical Devices Implanted Type Area Road Cleaner Device Identifier Shelf Expiration Date Model / Serial / Lot Device Perm Cntr [id number] - [id number] Implanted:Qty: 2 on 09/27/2015 by Sharda Ruiz, Corey Rucker MD at OR [facility] Uter[employer] 05/03/2017 [id number] / / [id number] documented as of this encounter Visit Diagnoses [...] Power of Attor benoit? No Care Teams Rn Mds Coordinator Relationship Specialty Start Date End Date Melissa Wilkins PA-C [address] [address] [place] [address] PCP - General Physician Copy Chaser 06/02/21 documented as of this encounter
--- OUTSIDE RECORDS SUMMARY | 2024-12-08 15:18 | External Medical Summary | Summary of Care ---
Author Name Unknown Organization [facility] Address [address] [place] [address] Phone [phone] Care Team Providers Care Blue Line Hanger Name Role Phone Melissa Cruz Chang FONSECA Primary Care Provider +1- [phone] Reason for Visit * Reason Comments Wound Care Encounter Details Date Type Department Care Team (Late st Contact Info) Description 09/09/2024 10:30 AM EST Nurse Only Wound Care, [facility] [address] [place], [place] [phone] [facility], Nurse Wound Care [address] [place] [address] Wound Care Allergies Active Allergy Reactions Criticality [...] Next Due Pneumococcal Conjugate Vacci ne, 20-valent ([id number]) 12/04/2022 Pneumococcal Polysaccharide PPV23 (Pneumovax) 05/06/2011 Seasonal [...] 03/10/2024 Does the household have a presbyterian hospitallar source of income? (Household - for [...] or greater, please contact the [facility]. Please check your toes frequently. If they become blue, purple, pale, cool, numb, and/or tingling elevate your leg higher than your heart for one hour. If you have no relief of the symptoms, cut the entire wrap off and call the [facility] [place], . Keep the wrap dry. If the wrap slides down or bunches at the ankle, call [facility]. Elevate legs above heart for 30 minutes [...] AM EST Nurse Only Wound Care, [address] [address] [facility], Nurse Wound Care [address] [place] [address] 09/15/2024 10:30 AM EST Nurse Only Wound Care, [address] [address] [facility], Nurse Wound Care [address] [place] [address] 09/16/2024 1:00 PM EST Office Visit Wound Care, [place] [address] [place] [address] Vinnie Blount MD [address] [place] [address] 09/19/2024 10:30 AM EST Nurse Only Wound Care, [address] [address] [facility], Nurse Wound Care [address] [place] [address] 09/22/2024 10:30 AM EST Nurse Only Wound Care, [address] [address] [facility], Nurse Wound Care [address] [place] [address] 09/26/2024 10:30 AM EST Nurse Only Wound Care, [address] [place] [address] [facility], Nurse Wound Care [address] [place] [address] 09/29/2024 11:00 AM EST Office Visit Wound Care, [address] [address] Yuriy Hilario MD [address] [place] [address] 10/03/2024 11:40 AM EST Nurse Only Ancillary, [place] [address] [place] [address] [place], Nurse Ancillary [address] [place] [address] 10/09/2024 12:58 PM EST Hospital Encounter OR [facility], Operating Room, [facility] - 4th Floor [address] [place] [address] Bigg Wetzel MD [address] [facility] [place] [address] 10/09/2024 12:58 PM EST - 10/09/2024 1:59 PM EST Surgery OR [facility], Operating Room, [facility] - 4th Floor [address] [place] [address] [place] [address] Bigg Wetzel MD [address] [place] [address] COLONOSCOPY FLEXIBLE PROXIMAL DIAGNOSTIC 10/24/2024 10:00 AM EDT Office Visit Cardiology, [place] [address] [place] [address] Darnell Boggs, DO [address] [place] [address] 11/19/2024 11:00 AM EDT Office Visit Orthopaedics, [address], [place] [address] [place] [address] Wilian Augustin, DO [address] [place] [address] 12/04/2024 1:20 PM EDT [facility] [address] [place] [address] Melissa Cruz PA-C [address] [place] [address] Scheduled Procedures Name Priority Associated Diagnoses Date/Ti [...] encounter Medical Devices Implanted Type Area Medical Health Researcher Device Identifier Shelf Expiration Date Model / Serial / Lot Device Perm Cntrl [id number] - [id number] Implanted:Qty: 2 on 09/27/2015 by Sharda Ruiz, Corey Rucker MD at OR [facility] Uterus [employer] 05/03/2017 [id number] / / [id number] documented as of this encounter Visit Diagnoses [...] Power of Attor benoit? No Care Teams Blue Line Hanger Relationship Specialty Start Date End Date Melissa Cruz PA-C [address] [address] [place] [address] PCP - General Physician Sanitary Landfill Supervisor 06/02/21 documented as of this encounter
--- OUTSIDE RECORDS SUMMARY | 2024-12-08 15:18 | External Medical Summary | Summary of Care ---
Author Name Unknown Organization [facility] Address [address] [place] [address] Phone [phone] Care Team Providers Care Blueprint Processor Name Role Phone Ty Cruzanthony Downing PA-C Primary Care Provider +1- [phone] Reason for Visit * Reason Comments Outpatient Testing Encounter Details Date Type Department Care Team (Late st Contact Info) Description 09/09/2024 11:00 AM EST Laboratory Laboratory, [facility] [address] [place] [phone] [facility], Lab [address] [place] [address] Dysuria; Increased frequency of urination Allergies Active Allergy Reactions Criticality Noted Date [...] Next Due Pneumococcal Conjugate Vacci ne, 20-valent ([id number]) 12/04/2022 Pneumococcal Polysaccharide PPV23 (Pneumovax) 05/06/2011 Seasonal [...] AM EST Nurse Only Wound Care, [address] [address] [facility], Nurse Wound Care [address] [place] [address] 09/15/2024 10:30 AM EST Nurse Only Wound Care, [address] [address] [facility], Nurse Wound Care [address] [place] [address] 09/16/2024 1:00 PM EST Office Visit Wound Care, [place] [address] [place] [address] Vinnie Blount MD [address] [place] [address] 09/19/2024 10:30 AM EST Nurse Only Wound Care, [address] [place] [address] [facility], Nurse Wound Care [address] [place] [address] 09/22/2024 10:30 AM EST Nurse Only Wound Care, [address] [place] [address] [facility], Nurse Wound Care [address] [place] [address], [place] [address] 09/26/2024 10:30 AM EST Nurse Only Wound Care, [address] [place] [address] [facility], Nurse Wound Care [address] [place] [address] 09/29/2024 11:00 AM EST Office Visit Wound Care, [address] [address] Yuriy Hilario MD [address] [place] [address] 10/03/2024 11:40 AM EST Nurse Only Ancillary, [place] [address] [place] [address] [place], Nurse Ancillary [address] [place] [address] 10/09/2024 12:58 PM EST Hospital Encounter OR [facility], Operating Room, [facility] Floor [address] [place] [address], [place] [address] Bigg Wetzel MD [address] [place] [address] 10/09/2024 12:58 PM EST - 10/09/2024 1:59 PM EST Surgery OR [facility], Operating Room, [facility] - 4th Floor [address] [place] [address] Bigg Wetzel MD [address] [place] [address] COLONOSCOPY FLEXIBLE PROXIMAL DIAGNOSTIC 10/24/2024 10:00 AM EDT Office Visit Cardiology, [place] [address] [place] [address] Darnell Boggs, DO [address] [place] [address] 11/19/2024 11:00 AM EDT Office Visit Orthopaedics, [address], [place] [address] [place] [address] Wilian Augustin, DO [address] [place] [phone] 12/04/2024 1:20 PM EDT Office Visit [facility] [address] [place] [address] Melissa Cruz PA-C [address] [place] [address] Pending Results Name Type Priority Associated Diagnoses Date /Time URINALYSIS, REFLEX TO CULTURE (NOT FOR NEUTROPENIC PATIENTS) Lab Routine Dysuria Increased frequency of urination 09/09/2024 12:03 PM EST URINALYSIS, REFLEX TO CULTURE Lab Routine Dysuria Increased frequency of urination 09/09/2024 12:03 PM EST Scheduled Procedures Name Priority Associated Diagnoses Date/Ti [...] encounter Medical Devices Implanted Type Area Oil Scout Device Identifier Shelf Expiration Date Model / Serial / Lot Device Perm Cntrl [id number] - [id number] Implanted:Qty: 2 on 09/27/2015 by Sharda Ruiz, Corey Rucker MD at OR [facility] Uterus [employer] 05/03/2017 [id number] / / [id number] documented as of this encounter Procedures Procedure Name Priority Date/Time Associated Diagnosis Comments URINALYSIS, REFLEX TO CULTURE (CUP ONLY) Routine 09/09/2024 12:03 PM EST Dysuria Increased frequency of urination documented in this encounter Results * URINALYSIS, REFLEX TO CULTURE (CUP ONLY) (09/09/2024 12:03 PM EST) Urinalysis, Reflex to Culture Specimen Specimen collected and received 09/09/2024 2:02 PM EST LABORATORY [facility] Urine Urine specimen obtained by clean catch procedure / Unknown Non-blood Collection / Unknown 09/09/2024 12:03 PM EST 09/09/2024 12:03 PM EST us Cyn Haynes MD LAB URINE ORDERABLES Final R esult LABORATORY [address] [place] [address] documented in this encounter Visit Diagnoses Diagnosis Dysuria Increased frequency of urination Urinary frequency Screening for colon cancer Special screening for [...] Power of Attor benoit? No Care Teams Blueprint Processor Relationship Specialty Start Date End Date Meilssa Cruz PA-C [address] [facility] [address] [place] [address] PCP - General Physician Wind Farm Operations Manager 06/02/21 documented as of this encounter
--- OUTSIDE RECORDS SUMMARY | 2024-12-08 15:18 | External Medical Summary ---
Author Name Unknown Address Unknown Organization [id number]:[facility] [address] [place] [address] Laboratory Report Ordering Provider Test Date Status ADY SÁNCHEZ 09/09/2024 12:03:03 Final Observation Date Value Abnormality Reference (Units) Status Bacteria identified in Specimen by Culture 09/09/2024 12:03:03 Multiple preeti suggests contamination or colonization Final Test: Culture, Urine, Quanti tative
Specimen Source: Urine, Clean Catch
Specimen Type: Urine
Specimen Date: 09/09/2024 1203
Result Date: 09/10/2024 1603
Result Status: Final result
Resulting Lab: [facility]
[address]
[place] [id number]

CULTURE

Multiple preeti suggests contamination or colonization

null Performing Location [facility] [address] [place] [id number]
--- OUTSIDE RECORDS SUMMARY | 2024-12-08 15:18 | External Medical Summary | Summary of Care ---
Author Name Unknown Organization [facility] Address [address] [place] [address] Phone [phone] Care Team Providers Care Supervisor Twisting Department Name Role Phone Melissa Cruz PA-C Primary Care Provider +1- [phone] Reason for Visit * Reason Onset Date Comments Order Request 09/09/2024 Encounter Details Date Type Department Care Team (Late st Contact Info) Description 09/09/2024 Telephone [facility] [address] [place] [address] Melissa Cruz PA-C [address] [place] [address] Order Request Allergies Active Allergy Reactions Criticality [...] Next Due Pneumococcal Conjugate Vacci ne, 20-valent ([id number]) 12/04/2022 Pneumococcal Polysaccharide PPV23 (Pneumovax) 05/06/2011 Seasonal [...] Telephone Encounter - Martine Flores CCMA - 09/09/2024 12:12 PM EST T/C to patient, patient states she already did the urine. * Telephone Encounter - Cyn Haynes MD - 09/09/2024 11:58 AM EST done * Telephone Encounter - Priscila Terry LPN - 09/09/2024 10:56 AM EST Sending to Dr Haynes to review. * Telephone Encounter - Veda Jacobson CMA - 09/09/2024 10:35 AM EST Patient is here at the wound clinic today She is complaining of increased urination, burning sensation No abdominal pain Complaining of low back pain States urine is light orange in color X 3 days Temp is 97.9 today upon checking Her transportation is [facility] Would you be willing to order a Urine C&S while she is here at the hospital today so that she can give specimen Order pended if agreeable documented in this encounter Plan of Treatment Upcoming Encounters Date Type Department Care Team (Latest Contact Info) Description 09/12/2024 10:30 AM EST Nurse Only Wound Care, [address] [address] [facility], Nurse Wound Care [address] [place] [address] 09/15/2024 10:30 AM EST Nurse Only Wound Care, [address] [place] [address] [facility], Nurse Wound Care [address] [place] [address] 09/16/2024 1:00 PM EST Office Visit Wound Care, [place] [address] [place] [address] Vinnie Blount MD [address] [place] [address] 09/19/2024 10:30 AM EST Nurse Only Wound Care, [address] [place] [address] [facility], Nurse Wound Care [address] [place] [address] 09/22/2024 10:30 AM EST Nurse Only Wound Care, [address] [place] [address] [facility], Nurse Wound Care [address] [place] [address] [place] [address] 09/26/2024 10:30 AM EST Nurse Only Wound Care, [address] [address] [facility], Nurse Wound Care 400 [place] [address] 09/29/2024 11:00 AM EST Office Visit Wound Care, [address] [place] [address] Yuriy Hilario MD 27 [place] [address] 10/03/2024 11:40 AM EST Nurse Only Ancillary, [place] [address] [place] [address] [place], Nurse Ancillary [address] [place] [address] 10/09/2024 12:58 PM EST Hospital Encounter OR [facility], Operating Room, [facility] Floor [address] [place], [place] [address] [address] Bigg Wetzel MD [address] [facility] [place] [address] 10/09/2024 12:58 PM EST - 10/09/2024 1:59 PM EST Surgery OR [facility], Operating Room, [facility] - [address] [place], [place] [address] [address] Bigg Wetzel MD [address] [place] [address] COLONOSCOPY FLEXIBLE PROXIMAL DIAGNOSTIC 10/24/2024 10:00 AM EDT Office Visit Cardiology, [address] [address] Darnell Boggs DO [address] [facility] [address] 11/19/2024 11:00 AM EDT [facility] [address] [place] [address] Wilian Augustin, [address] [place] [address] 12/04/2024 1:20 PM EDT Office Visit [facility] [address] [place] [phone] Melissa Cruz PA-C [address] [place] [address] Scheduled Procedures Name Priority Associated Diagnoses Date/Ti [...] this encounter Medical Devices Implanted Type Area Missile Tracking Technician Device Identifier Shelf Expiration Date Model / Serial / Lot Device Perm Cntrl [id number] - [id number] Implanted:Qty: 2 on 09/27/2015 by Sharda Ruiz, Corey Rucker MD at OR [facility] Uterus [employer] 05/03/2017 [id number] / / [id number] documented as of this encounter Visit Diagnoses Diagnosis Dysuria- Primary Increased frequency of urination Urinary frequency Screening [...] of Attor benoit? No Care Teams Supervisor Twisting Department Relationship Specialty Start Date End Date Melissa Cruz PA-C [address] [facility] [address] [facility] [place] [phone] PCP - General Physician Shoe Repair Supervisor 06/02/21 documented as of this encounter
--- OUTSIDE RECORDS SUMMARY | 2024-12-08 15:18 | External Medical Summary | Summary of Care ---
Author Name Unknown Organization [facility] Address [address] [place] [address] Phone [phone] Care Team Providers Care Airplane Pilot Crop Dusting Name Role Phone Melissa Cruz Chang FONSECA Primary Care Provider +1- [phone] Reason for Visit * Reason Comments Wound Care BLE -- EDEMA - WOUND S Encounter Details Date Type Department Care Team (Late st Contact Info) Description 09/12/2024 10:30 AM EST Nurse [facility] [address] [place] [address] [facility], Nurse Wound Care [address] [place] [address] Wound Care (BLE -- EDEMA - WOUNDS ) Allergies Active Allergy Reactions Criticality Noted Date Comments Aspirin 01/27/2014 Increased bleeding documented as of this encounter (statuses as of 09/12/2024) Medications traZODone (DESYREL) 50 MG Tablet Take [...] as of this encounter (statuses as of 09/12/2024) Active Problems Problem Noted Date Diagnosed Date [...] as of this encounter (statuses as of 09/12/2024) Resolved Problems Problem Noted Date Diagnosed Date [...] as of this encounter (statuses as of 09/12/2024) Immunizations Name Administration Dates Next Due Pneumococcal Conjugate Vacci ne, 20-valent ([id number]) 12/04/2022 Pneumococcal Polysaccharide PPV23 (Pneumovax) 05/06/2011 Seasonal [...] * Patient Instructions* Megha López, ELIZA - 09/12/2024 10:40 AM EST Discharge Instructions: Unna Boot You [...] Nursing Notes * Megha López LPN - 09/12/2024 1:39 PM EST Assisted to sit safely on exam seating aware to not rise unassisted for her safety. Mica is noted to not have Unna Boots in place only dry dressing ( ABD Pads taped over wounds at this time) No Filiberto Wraps noted for compression as she has been instructed to do by in past visits. I did ask if she can apply these , her response was not very well. Dressings removed notedmoderate to heavy exudate from sites on thigh / knee tissue. Wounds with bio burden build up reviewed use of tooth brush when she cleanses at home. She stated she does -- just reviewed need to ensure edges as well are cleansed. All wounds then Legs / feet washed with soap and water towel dried tolerated well. Reapplied dressings as follows -- Dressings applied as follows. Calmoseptine to jael- wounds -- Vaseline to Wound beds -- skim coat applied to each site - covered with Opticel foam silver pad - Foam pad cut in half and placed on lateral aspect of each foot as well per her request. Kerlix was then run from toes to over knee followed by Ilana Boot --Surgilast #5 applied to protect coban layer. No photos taken this date due to already being competed this week and no significant changes to note. Assisted with socks and sneakers then to exit exam seating aware to call with any questions or concerns Assisted to transfer from exam seating then sit safely on her w/c propelled to check out documented in this encounter Plan of Treatment Upcoming Encounters Date Type Department Care Team (Late st Contact Info) Description 09/15/2024 10:30 AM EST Nurse Only Wound Care, [facility] [address] [place] [address] [facility] [address] 09/16/2024 10:40 AM EST Office Visit [facility] [address] [place] [phone] Cyn Haynes MD [address] [place] [address] 09/19/2024 10:30 AM EST Nurse [address] Wound Care, [address] [address] [facility], Nurse Wound Care [address] [place] [address] 09/22/2024 10:30 AM EST Nurse Only Wound Care, [address] [place] [address] [facility], Nurse Wound Care [address] [place] [address] 09/26/2024 10:30 AM EST Nurse Only Wound Care, [address] [place] [address] [facility], Nurse Wound Care [address] [place] [address] 09/29/2024 11:00 AM EST Office Visit Wound Care, [address] [address] Yuriy Hilario MD 27 [place] [address] 09/30/2024 11:00 AM EST [facility], [place] [facility] [address] [place], [facility] [address] [place] [address] 10/03/2024 11:40 AM EST Nurse Only Ancillary, [place] [address] [place] [address] [place], Nurse Ancillary [address] [place] [address] 10/09/2024 12:58 PM EST Hospital Encounter OR [facility], Operating Room, [facility] - 4th Floor 400 [facility] [place] [address] Bigg Wetzel MD 132 [facility] [place] [address] 10/09/2024 12:58 PM EST - 10/09/2024 1:59 PM EST Surgery OR [facility], Operating Room, [facility] - 4th Floor [address] [place] [address] Bigg Wetzel MD [address] [place] [address] COLONOSCOPY FLEXIBLE PROXIMAL DIAGNOSTIC 10/24/2024 10:00 AM EDT Office Visit Cardiology, [place] [address] [place] [address] Darnell Boggs, [address] [place] [address] 11/19/2024 11:00 AM EDT Office Visit Orthopaedics, [address], [place] [address] [place] [address] Wilian Augustin, [address] [place] [id number] 12/04/2024 1:20 PM EDT Office Visit [facility] [address] [place] [address] Melissa Cruz PA-C [address] [place] [address] Scheduled Procedures Name Priority Associated Diagnoses Date/Ti [...] this encounter Medical Devices Implanted Type Area Charge Hand Device Identifier Shelf Expiration Date Model / Serial / Lot Device Perm Cntrl [id number] - [id number] Implanted:Qty: 2 on 09/27/2015 by Sharda Ruiz, Corey Rucker MD at OR [facility] Uterus [employer] 05/03/2017 [id number] / / [id number] documented as of this encounter Visit Diagnoses [...] Power of Attor benoit? No Care Teams Airplane Pilot Crop Dusting Relationship Specialty Start Date End Date Melissa Cruz PA-C [address] [facility] [address] [place] [address] PCP - General Physician Recreation Director 06/02/21 documented as of this encounter
--- OUTSIDE RECORDS SUMMARY | 2024-12-08 15:18 | External Medical Summary | Summary of Care ---
Author Name Unknown Organization [facility] Address [address] [place] [address] Phone [phone] Care Team Providers Care Fountain Waitress/Waiter Name Role Phone Melissa Cruz PA-C Primary Care Provider +1- [phone] Reason for Visit * Reason Onset Date Comments Order Request 09/09/2024 Encounter Details Date Type Department Care Team (Late st Contact Info) Description 09/09/2024 Telephone [facility] [address] [place] [address] Melissa Cruz PA-C [address] [place] [address] Order Request Allergies Active [...] Next Due Pneumococcal Conjugate Vacci ne, 20-valent ([id number]) 12/04/2022 Pneumococcal Polysaccharide PPV23 (Pneumovax) 05/06/2011 Seasonal [...] 10:30 AM EST Nurse Only Wound Care, [address] [address] [facility], Nurse Wound Care [address] [place] [address] 09/15/2024 10:30 AM EST Nurse Only Wound Care, [address] [place] [address] [facility], Nurse Wound Care [address] [place] [address] 09/16/2024 1:00 PM EST Office Visit Wound Care, [place] [address] [place] [address] Vinnie Blount MD [address] [place] [address] 09/19/2024 10:30 AM EST Nurse Only Wound Care, [address] [place] [address] [facility], Nurse Wound Care [address] [place] [address] 09/22/2024 10:30 AM EST Nurse Only Wound Care, [address] [place] [address] [facility], Nurse Wound Care [address] [place] [address] [place] [address] 09/26/2024 10:30 AM EST Nurse Only Wound Care, [address] [address] [facility], Nurse Wound Care 400 [place] [address] 09/29/2024 11:00 AM EST Office Visit Wound Care, [address] [place] [address] Yuriy Hilario MD 27 [place] [address] 10/03/2024 11:40 AM EST Nurse Only Ancillary, [place] [address] [place] [place] [address] [place], Nurse Ancillary [address] [place] [place] [address] 10/09/2024 12:58 PM EST Hospital Encounter OR [facility], Operating Room, [facility] Floor [address] [place], [place] [address] [phone] iBgg Wetzel MD [address] [address] 10/09/2024 12:58 PM EST - 10/09/2024 1:59 PM EST Surgery OR [facility], Operating Room, [facility] - [address] [place], [place] [address] [address] Bigg Wetzel MD [address] [facility] [place] [address] COLONOSCOPY FLEXIBLE PROXIMAL DIAGNOSTIC 10/24/2024 10:00 AM EDT Office Visit Cardiology, [address] [address] Darnell Boggs DO 400 [facility] [address] 11/19/2024 11:00 AM EDT [facility] [address] [place] [address] Wilian Augustin, [address] [place] [address] 12/04/2024 1:20 PM EDT Office Visit [facility] [address] [place] [place] [phone] Melissa Cruz PA-C [address] [place] [address] Scheduled Procedures Name Priority Associated Diagnoses Date/Ti [...] this encounter Medical Devices Implanted Type Area Print Support Specialist Device Identifier Shelf Expiration Date Model / Serial / Lot Device Perm Cntrl [id number] - [id number] Implanted:Qty: 2 on 09/27/2015 by Sharda Ruiz, Corey Rucker MD at OR [facility] Uterus [employer] 05/03/2017 [id number] / / [id number] documented as of this encounter Visit Diagnoses [...] Power of Attor benoit? No Care Teams Fountain Waitress/Waiter Relationship Specialty Start Date End Date Melissa Cruz PA-C [address] [facility] [address] [facility] [place] [phone] PCP - General Physician Communication Technician 06/02/21 documented as of this encounter
--- OUTSIDE RECORDS SUMMARY | 2024-12-08 15:19 | External Medical Summary | Summary of Care ---
Author Name Unknown Organization [facility] Address [address] [place] [address] Phone [phone] Care Team Providers Care Rag Inspector Name Role Phone CarylTy mansfieldanthony Downing PA-C Primary Care Provider +1- [phone] Reason for Visit * Reason Comments Follow Up BLEPatient presents with wounds proximal legs covered with gauze, ABD pads and medipore tape - forgot to use Vaseline to LLE but did apply to RLEUnna boots were removed on Sunday Antibiotics were also completed on Sunday Patient states she missed her appointment on Sunday due to [employer] transportation Encounter Details Date Type Department Care Team (Late st Contact Info) Description 09/01/2024 11:00 AM EST Office Visit Wound Care, [facility] [address] [place] [address] Yuriy Hilario MD [address] [place] [address] Multiple open wounds of lower leg, unspecified laterality, subsequent encounter*; Irritant contact dermatitis due to other body fluid Allergies Active Allergy Reactions Criticality Noted Date Comments Aspirin 01/27/2014 Increased bleeding documented as of this encounter (statuses as of 09/01/2024) Medications traZODone (DESYREL) 50 MG Tablet Take [...] WITH FOOD.. 90 Tablet 5 4 Active Ferrous Sulfate 28 MG Oral [...] as of this encounter (statuses as of 09/01/2024) Active Problems Problem Noted Date Diagnosed Date [...] as of this encounter (statuses as of 09/01/2024) Resolved Problems Problem Noted Date Diagnosed Date [...] as of this encounter (statuses as of 09/01/2024) Immunizations Name Administration Dates Next Due Pneumococcal Conjugate Vacci ne, 20-valent ([id number]) 12/04/2022 Pneumococcal Polysaccharide PPV23 (Pneumovax) 05/06/2011 Seasonal [...] 03/10/2024 Does the household have a aspirus ontonagon hospitalr source of income? (Household - for [...] Progress Notes * Yuriy Hilario MD - 09/01/2024 11:39 AM EST Images from the original note were not included. WOUND OUTPATIENT FOLLOW-UP NOTE DOS: 09/01/2024 CC: Follow-up HPI: Mica Jimenez returns for [...] date: 06/06/2007 Quit date: 06/06/2012 Years since quittin.2 Smokeless Tobacco Never Objective There were no vitals filed for this visit. WOUND ASSESSMENT: Alteration in Skin Integrity Proximal;Right;Medial Leg (Active) Alteration in Skin Integrity Anterior;Left Knee (Active) Clinical Image 09/01/24 1120 Wound Length (cm) 0.3 cm 09/01/24 1120 Wound Width (cm) 0.3 cm 09/01/24 1120 Wound Depth (cm) 0.1 cm 09/01/24 1120 Granulation Tissue (%) 100% 09/01/24 1120 Granulation Tissue Color pale/pink 09/01/24 1120 Drainage none 09/01/24 1120 Odor (after cleansing wound) No 09/01/24 1120 Jaye-Wound (Surrounding Skin) Edema;Erythematous 09/01/24 1120 Wound Surface Area (cm^2) 0.09 cm^2 09/01/24 1120 Wound Volume (cm^3) 0.009 cm^3 09/01/24 1120 Alteration in Skin Integrity Left;Medial Knee (Active) Clinical Image 09/01/24 1119 Wound Width (cm) 4.3 cm 09/01/24 1119 Wound Depth (cm) 4.2 cm 09/01/24 1119 Undermining (cm) 0.2 09/01/24 1119 Yellow Fibrinous Slough (%) 1-25% 09/01/24 1119 Granulation Tissue (%) 51-75% 09/01/24 1119 Granulation Tissue Color red 09/01/24 1119 Necrotic Tissue (%) none 09/01/24 1119 Necrotic Tissue Color Not Applicable 09/01/24 1119 Deep Supporting Structure Exposed None 09/01/24 1119 Drainage serous, moderate 09/01/24 1119 Odor (after cleansing wound) No 09/01/24 1119 Jaye-Wound (Surrounding Skin) Edema;Erythematous 09/01/24 1119 Alteration in Skin Integrity Lower;Right;Medial Leg (Active) Clinical Image 09/01/24 1117 Wound Length (cm) 18.3 cm 09/01/24 1117 Wound Width (cm) 3.9 cm 09/01/24 1117 Wound Depth (cm) 0.3 cm 09/01/24 1117 Yellow Fibrinous Slough (%) 76-99% 09/01/24 1117 Granulation Tissue (%) 1-25% 09/01/24 1117 Granulation Tissue Color pale/pink 09/01/24 1117 Drainage purulent, moderate 09/01/24 1117 Odor (after cleansing wound) No 09/01/24 1117 Jaye-Wound (Surrounding Skin) Edema;Erythematous 09/01/24 1117 Wound Surface Area (cm^2) 71.37 cm^2 09/01/24 1117 Wound Volume (cm^3) 21.411 cm^3 09/01/24 1117 Alteration in Skin Integrity Anterior;Proximal;Right Leg (Active) Clinical Image 09/01/24 111 Wound Length (cm) 4.1 cm 09/01/24 1115 Wound Width (cm) 3.6 cm 09/01/24 1115 Wound Depth (cm) 0.1 cm 09/01/24 1115 Yellow Fibrinous Slough (%) 1-25% 09/01/24 1115 Granulation Tissue (%) 76-99% 09/01/24 111 Granulation Tissue Color red 09/01/245 Drainage purulent, moderate 09/01/24 111 Odor (after cleansing wound) No 09/01/24 111 Jaye-Wound (Surrounding Skin) Edema;Erythematous 09/01/24 111 Wound Surface Area (cm^2) 14.76 cm^2 09/01/24 1115 Wound Volume (cm^3) 1.476 cm^3 09/01/24 1115 Alteration in Skin Integrity Right;Lateral;Proximal Thigh (Active) Clinical Image 09/01/24 1118 Drainage none 09/01/24 1118 Odor (after cleansing wound) No 09/01/24 1118 Jaye-Wound (Surrounding Skin) Edema 09/01/24 111 Overall the wounds seem improved. The right leg lateral anterior lower leg ulcer requires debridement. Assessment & Plan ASSESSMENT: ICD-10-CM 1. Multiple open wounds of lower leg, unspecified laterality, subsequent encounter S81.809D 2. Irritant contact dermatitis due to other body fluid L24.A9 PLAN: Vaseline / Optifoam Unna boots overlying the dressings. Continue vinegar water as needed for intertrigo. DEBRIDEMENT: Time Out: Correct Patient, Correct Site/Side/Position, Correct Procedure, Complete/Current Consent and Safety Issue Review Wound location: Right lower leg Character of Wound/Ulcer Pre Debridement: Deteriorated and Necrotic Lidocaine: none Indication for Debridement: Abnormal Wound Edge, Abnormal Wound Base, and Slough, Exudate Instrument Used: Curette Tissue and/or Material Removed: Abnormal Edge, Slough, Exudate, and Fibrin Bleeding: Minimal Bleeding Controlled with: Pressure Specimen Taken: None Type of Debridement: Excisional: Subcutaneous Tissue Level of Debridement: Skin Epidermis, Skin Dermis, and Subcutaneous Tissue Negative Pressure Wound Vacuum: No Bioengineered Tissue/Dermal Substrate Applied: No Character of Wound/Ulcer Post Debridement: Improved Total Area Debrided: 18 cm² Procedure Tolerated: Yes Follow Up: Return in about 3 weeks (around 09/22/2024). I spent a total of 20-29 minutes (exact time 25 mins) on the date of service in preparation, delivery, and documentation of the care provided to Mica Jimenez excluding any time spent in the performance of separately billed services or time spent by another provider/QHP. Lillian Hilario MD documented in this encounter Nursing Notes * Veda JacobsonALPESH - 09/01/2024 11:24 AM EST Images from the original note were not included. Chief Complaint Patient presents with Follow Up BLE Patient presents with wounds proximal legs covered with gauze, ABD pads and medipore tape - forgot to use Vaseline to LLE but did apply to RLE Unna boots were removed on Sunday Antibiotics were also completed on Sunday Patient states she missed her appointment on Sunday due to [employer] transportation Patient stopped Buspar when she was placed on antibiotics from [facility] - would like to know when she can restart Buspar Patient was instructed to not get up on the exam table/exam chair until directed and assisted by their provider; patient is to remain seated in the chair/ wheelchair/ exam table/ exam chair for fall prevention and safety reasons. Patient is aware to have assistance to step down off exam table/exam chair with personnel. Patient voiced full comprehension of instructions. BLE dressings removed Wounds then legs and feet washed with soap and water and towel dried. Patient tolerated well A small amount of animal hair was removed from the RLE medial wounds and proximal wound documented in this encounter Plan of Treatment Upcoming Encounters Date Type Department Care Team (Latest Contact Info) Description 09/02/2024 10:30 AM EST Nurse Only Wound Care, [address] [address] [facility], Nurse Wound Care [address] [place] [address] [place] [address] 09/04/2024 11:00 AM EST Office Visit [facility] [address] [place] [address] Melissa Cruz PA-C [address] [place] [address] [place] [address] 09/05/2024 10:30 AM EST Nurse Only Wound Care, [address] [address] [facility], Nurse Wound Care [address] [place], [place] [address] [address] 09/09/2024 10:30 AM EST Nurse Only Wound Care, [address] [address] [facility], Nurse Wound Care [address] [place], [place] [address] [address] 09/11/2024 10:30 AM EST Nurse Only Wound Care, [address] [address] [facility], Nurse Wound Care [address] [place], [place] [address] [address] 09/12/2024 10:30 AM EST Nurse Only Wound Care, [address] [address] [facility], Nurse Wound Care [address] [place], [place] [address] [address] 09/15/2024 10:30 AM EST Nurse Only Wound Care, [facility] [address] [facility] [address] [address] [facility], Nurse Wound Care [address] [facility] [place] [address] 09/16/2024 1:00 PM EST Office Visit Wound Care, [place] [address] [place] [address] Vinnie Blount MD [address] [place] [address] 10/09/2024 12:58 PM EST Hospital Encounter OR [facility], Operating Room, [facility] - 4th Floor 400 [facility] [place] [address] Bigg Wetzel MD [address] [place] [address] 10/09/2024 12:58 PM EST - 10/09/2024 1:59 PM EST Surgery OR [facility], Operating Room, [facility] - 4th Floor [address] [facility] [place] [address] Bigg Wetzel MD [address] [place] [address] COLONOSCOPY FLEXIBLE PROXIMAL DIAGNOSTIC 10/24/2024 10:00 AM EDT Office Visit Cardiology, [place] [facility] [place] [address] Darnell Boggs DO 400 [facility] [place] [address] Scheduled Procedures Name Priority Associated Diagnoses Date/Ti [...] this encounter Medical Devices Implanted Type Area General Farmer Device Identifier Shelf Expiration Date Model / Serial / Lot Device Perm Cntrl [id number] - [id number] Implanted:Qty: 2 on 09/27/2015 by Sharda Ruiz, Corey Rucker MD at OR [facility] Uterus [employer] 05/03/2017 [id number] / / [id number] documented as of this encounter Visit Diagnoses Diagnosis Multiple open wounds of lower leg, unspecified laterality, subsequent encounter- Primary Irritant contact dermatitis due to other body [...] Power of Attor benoit? No Care Teams Rag Inspector Relationship Specialty Start Date End Date Melissa Cruz PA-C [address] [facility] [address] [place] [address] PCP - General Physician Associate Designer 06/02/21 documented as of this encounter
--- OUTSIDE RECORDS SUMMARY | 2024-12-08 15:19 | External Medical Summary | Summary of Care ---
Author Name Unknown Organization [facility] Address [address] [place] [address] Phone [phone] Care Team Providers Care Cleaning Porter Name Role Phone Melissa Cruz Jair FONSECA Primary Care Provider +1- [phone] Reason for Visit * Reason Comments Wound Care BLEPatient presents with no dressings to E - states they fell off 2 days agoUnna boots have slid to mid ankle Encounter Details Date Type Department Care Team (Late st Contact Info) Description 08/27/2024 10:30 AM EST Nurse Only Wound Care, [facility] [address] [place] [address] [facility], Nurse Wound Care [address] [place] [address] Wound Care (BLE/Patient presents with no d... Allergies Active Allergy Reactions Criticality Noted Date Comments Aspirin 01/27/2014 Increased bleeding documented as of this encounter (statuses as of 08/27/2024) Medications traZODone (DESYREL) 50 MG Tablet Take [...] as of this encounter (statuses as of 08/27/2024) Active Problems Problem Noted Date Diagnosed Date [...] as of this encounter (statuses as of 08/27/2024) Resolved Problems Problem Noted Date Diagnosed Date [...] as of this encounter (statuses as of 08/27/2024) Immunizations Name Administration Dates Next Due Pneumococcal Conjugate Vacci ne, 20-valent ([id number]) 12/04/2022 Pneumococcal Polysaccharide PPV23 (Pneumovax) 05/06/2011 Seasonal [...] as of this encounter Nursing Notes * Veda Jacobson, COOK SUPERVISOR - 08/27/2024 11:27 AM EST Chief Complaint Patient presents with Wound Care BLE Patient presents with no dressings to RLE - states they fell off 2 days ago Unna boots have slid to mid ankle Patient was instructed to not get up on the exam table/exam chair until directed and assisted by their provider; patient is to remain seated in the chair/ wheelchair/ exam table/ exam chair for fall prevention and safety reasons. Patient is aware to have assistance to step down off exam table/exam chair with personnel. Patient voiced full comprehension of instructions. As stated patient presents with no dressing to RLE and unna boot slid to ankle Also present to help with wound care Tomas Strong RN Wounds then legs and feet washed with soap and water and towel dried. Patient did have discomfort but tolerated. RLE Wounds were deeply embedded with animal hair and lint and were very dry and scabby LLE Wound was covered but unna boot slid to ankle Treatment done as ordered by Dr. Hilario BLE Vaseline applied to dry feet and to all open wound beds Optifoam AG Gentle 1/2 to each heel for comfort to heels and all open wound beds were covered as well with Optifoam AG Gentle LLE ABD Pads applied to anterior and posterior ankle to help shape leg and then zinc unna boot RLE Kerlix applied first to hold foam in place and ABD pads applied posterior and anterior ankle tohelp shape leg then zinc unna boot Coban layer applied bilaterally and size 7 Surgilast applied to protect wrap from sticking to clothing Socks and shoes applied Reminded patient that it is very important if and when the dressings come off she needs to wash thewounds, dry them, apply Vaseline to keep the wound bed moist and cover with dry gauze If unna boots slide down - cut them off and apply dany wraps to keep legs compressed. Patient voiced her understanding and states she does have someone that could help her at home if that should happen. Compression education again reviewed with patient and she voiced her understanding Compression Therapy Education: Any questions, redness or swelling around the wound and development of a temperature of 101F or greater, please contact the [facility]. Please check your toes frequently. If they become blue, purple, pale, cool, numb, and/or tingling elevate your leg higher than your heart for one hour. If you have no relief of the symptoms, cut the entire wrap off and call the [facility], . Keep the wrap dry. If the wrap slides down or bunches at the ankle, call [facility]. Elevate legs above heart for 30 minutes 2-3 times a day. documented in this encounter Plan of Treatment Upcoming Encounters Date Type Department Care Team (Latest Contact Info) Description 08/29/2024 10:30 AM EST Nurse Only Wound Care, [address] [address] [facility], Nurse Wound Care [address] [facility], [place] [address] 09/01/2024 11:00 AM EST Office Visit Wound Care, [address] [place] [address] Yuriy Hilario MD [address] [place] [address] 09/02/2024 10:30 AM EST Nurse Only Wound Care, [address] [place] [address] [facility], Nurse Wound Care [address] [place] [address] 09/04/2024 11:00 AM EST Office Visit [facility] [address] [place] [address] Melissa Cruz PA-C [address] [place] [address] 09/05/2024 10:30 AM EST Nurse Only Wound Care, [address] [place] [address] [facility], Nurse Wound Care [address] [place] [address], [place] [address] 09/09/2024 10:30 AM EST Nurse Only Wound Care, [address] [place] [address] [facility], Nurse Wound Care [address] [place] [address], [place] [address] 09/11/2024 10:30 AM EST Nurse Only Wound Care, [address] [place] [address] [facility], Nurse Wound Care [address] [place] [address], [place] [address] 09/12/2024 10:30 AM EST Nurse Only Wound Care, [address], [place] [address] [facility], Nurse Wound Care [address] [place] [address] 09/15/2024 10:30 AM EST Nurse Only Wound Care, [facility] [address] [place] [address] [facility], Nurse Wound Care 400 [place] [address] 09/16/2024 1:00 PM EST Office Visit Wound Care, [place] [address] [place] [address] Vinnie Blount MD [address] [place] [address] 10/09/2024 1:14 PM EST Hospital Encounter OR [facility], Operating Room, [facility] - 4th Floor 400 [facility] [place] [address] Bigg Wetzel MD [address] [place] [address] 10/09/2024 1:14 PM EST - 10/09/2024 2:15 PM EST Surgery OR [facility], Operating Room, [facility] - 4th Floor 400 [facility] [place] [address] Bigg Wetzel MD [address] [place] [address] COLONOSCOPY FLEXIBLE PROXIMAL DIAGNOSTIC 10/24/2024 10:00 AM EDT Office Visit Cardiology [place] 400 [facility] [place] [address] Darnell Boggs DO 400 [facility] [address] Scheduled Procedures Name Priority Associated Diagnoses Date/Ti me COLONOSCOPY FLEXIBLE PROXIMAL DIAGNOSTIC Screening for colon cancer 10/09/2024 1:14 PM EST Health Maintenance Due Date Last [...] this encounter Medical Devices Implanted Type Area Audio Visual Secretary Device Identifier Shelf Expiration Date Model / Serial / Lot Device Perm Cntrl [id number] - [id number] Implanted:Qty: 2 on 09/27/2015 by Sharda Ruiz, Corey Rucker MD at OR [facility] Uterus [employer] 05/03/2017 [id number] / / [id number] documented as of this encounter Visit Diagnoses [...] Power of Attor benoit? No Care Teams Cleaning Porter Relationship Specialty Start Date End Date Melissa Cruz PA-C [address] [facility] [address] [place] [address] PCP - General Physician Paint Spraying Machine Operator Helper 06/02/21 documented as of this encounter
--- OUTSIDE RECORDS SUMMARY | 2024-12-08 15:19 | External Medical Summary ---
Author Name Unknown Address Unknown Organization K01:LABORATORY [facility] - [facility] [address] [facility] [address] Laboratory Report Ordering Provider Test Date Status DONALDOFRANKY 09/04/2024 12:07:17 Final Drugs that require complianc e testing:

Opioids:
None

Benzodiazepines
Clonazepam: Date/Time of last Dose 08/31 morning

Cutoff Concentrations:
Drug Level
Alpha-Hydroxyalprazolam 10 ng/mL
7-Aminoclonazepam 20 ng/mL
Nordiazepam 20 ng/mL
Oxazepam 20 ng/mL
Temazepam 20 ng/mL
Lorazepam 10 ng/mL

This test was developed and its performance characteristics determined by [employer]. It has not been cleared or approved by the [place] Food and Drug Administration. Observation Date Value Abnormality Reference (Units ) Status METHODOLOGY 09/04/2024 12:07:17 LC-MS/MS Final Alpha hydroxyalprazolam cutoff [Mass/volume] in Urine for Confirmatory method 09/04/2024 12:07:17 Negative Negative Final 7-Aminoclonazepam [Mass/volume] in Urine by Confirmatory method 09/04/2024 12:07:17 Negative Negative Final Nordiazepam cutoff [Mass/volume] in Urine for Confirmatory method 09/04/2024 12:07:17 Negative Negative Final Oxazepam cutoff [Mass/volume] in Urine for Confirmatory method 09/04/2024 12:07:17 Negative Negative Final Temazepam cutoff [Mass/volume] in Urine for Confirmatory method 09/04/2024 12:07:17 Negative Negative Final LORazepam cutoff [Mass/volume] in Urine for Confirmatory method 09/04/2024 12:07:17 Negative Negative Final Performing Location LABORATORY [facility] - [address] [facility] [address]
--- OUTSIDE RECORDS SUMMARY | 2024-12-08 15:19 | External Medical Summary | Summary of Care ---
Author Name Unknown Organization [facility] Address [address] [place] [address] Phone [phone] Care Team Providers Care Diesel Mechanic Helper Name Role Phone CarylTy mansfieldanthony Downing PA-C Primary Care Provider +1- [phone] Reason for Visit * Reason Comments Follow [...] Wound Care, [facility] [address] [place] [address] Yuriy Hilario MD [address] [place] [address] Multiple open wounds of lower leg, unspecified [...] Next Due Pneumococcal Conjugate Vacci ne, 20-valent ([id number]) 12/04/2022 Pneumococcal Polysaccharide PPV23 (Pneumovax) 05/06/2011 Seasonal [...] No 03/10/2024 Does the household have a [facility] source of income? (Household - [...] * Patient Instructions* Veda Jacobson CMA - 09/01/2024 12:20 PM EST Compression Therapy Education: Any questions, redness or swelling around the wound and development of a temperature of 101F or greater, please contact the [facility]. Please check your toes frequently. If they become blue, purple, pale, cool, numb, and/or tingling elevate your leg higher than your heart for one hour. If you have no relief of the symptoms, cut the entire wrap off and call the [facility], . Keep the wrap dry. If the wrap slides down or bunches at the ankle, call [facility]. Elevate legs above heart for 30 minutes [...] 09/01/24 1119 Granulation Tissue Color red 09/01/24 111 Necrotic Tissue (%) none 09/01/24 111 Necrotic Tissue Color Not Applicable 09/01/24 1119 Deep Supporting Structure Exposed None 09/01/24 1119 Drainage serous, moderate 09/01/24 1119 Odor (after cleansing wound) No 09/01/24 111 Jaye-Wound (Surrounding Skin) Edema;Erythematous 09/01/24 111 Alteration in Skin Integrity Lower;Right;Medial Leg (Active) Clinical Image 09/01/24 1117 Wound Length (cm) 18.3 cm 09/01/24 1117 Wound Width (cm) 3.9 cm 09/01/24 1117 Wound Depth (cm) 0.3 cm 09/01/24 1117 Yellow Fibrinous Slough (%) 76-99% 09/01/24 1117 Granulation Tissue (%) 1-25% 09/01/247 Granulation Tissue Color pale/pink 09/01/247 Drainage purulent, moderate 09/01/24 1117 Odor (after cleansing wound) No 09/01/24 1117 Jaye-Wound (Surrounding Skin) Edema;Erythematous 09/01/24 1117 Wound Surface Area (cm^2) 71.37 cm^2 09/01/24 1117 Wound Volume (cm^3) 21.411 cm^3 09/01/24 1117 Alteration in Skin Integrity Anterior;Proximal;Right Leg (Active) Clinical Image 09/01/24 1115 Wound Length (cm) 4.1 cm 09/01/24 1115 Wound Width (cm) 3.6 cm 09/01/24 1115 Wound Depth (cm) 0.1 cm 09/01/24 1115 Yellow Fibrinous Slough (%) 1-25% 09/01/24 111 Granulation Tissue (%) 76-99% 09/01/24 1115 Granulation Tissue Color red 09/01/24 1115 Drainage purulent, moderate 09/01/24 1115 Odor (after cleansing wound) No 09/01/24 1115 Jaye-Wound (Surrounding Skin) Edema;Erythematous 09/01/24 1115 Wound Surface Area (cm^2) 14.76 cm^2 09/01/24 1115 Wound Volume (cm^3) 1.476 cm^3 09/01/24 1115 Alteration in Skin Integrity Right;Lateral;Proximal Thigh (Active) Clinical Image 09/01/24 1118 Drainage none 09/01/24 1118 Odor (after cleansing wound) No 09/01/24 1118 Jaye-Wound (Surrounding Skin) Edema 09/01/24 1118 Overall the wounds seem improved. The right [...] Nursing Notes * Veda Jacobson CMA - 09/01/2024 12:15 PM EST Treatment done as ordered by Dr. Hilario Did attempt post debridement photo however todays visit was already signed Discussed with Dr. Hilario restarting Buspar and as long as Cipro is completed may resume - patient finished this Sunday and will resume Buspar today Vaseline applied to dry feet and to all open wound bed Optifoam AG Gentle - 1/2 pad applied to each heel and 1 whole pad applied over Vaseline to each open wound bed, then Kerix wrapped from base of toes proximally to cover wounds. ABD Pads placed at skin folds to help shape legs for even wrapping of the zinc unna boot. Then wrapped with coban over unna. Size 5 surgilast applied to BLE. Socks and shoes applied Compression and unna education reviewed with patient and she voiced [...] or greater, please contact the [facility]. Please check your toes frequently. If they become blue, purple, pale, cool, numb, and/or tingling elevate your leg higher than your heart for one hour. If you have no relief of the symptoms, cut the entire wrap off and call the [facility], . Keep the wrap dry. If the wrap slides down or bunches at the ankle, call [facility]. Elevate legs above heart for 30 minutes 2-3 times a day. Assisted patient from exam chair to wheelchair safely and Megha pushed patient in her wheelchair to check out * Veda Jacobson CMA - 09/01/2024 11:24 AM EST Images from [...] when she was placed on antibiotics from [facility] - would like to know when she [...] Department Care Team (Latest Contact Info) Description 09/04/2024 11:00 AM EST Office Visit [facility] [address] [place] [address] Melissa Cruz PA-C [address] [place] [address] 09/05/2024 10:30 AM EST Nurse Only Wound Care, [address] [address] [facility], Nurse Wound Care [address] [place] [address] 09/09/2024 10:30 AM EST Nurse Only Wound Care, [address] [place] [address] [facility], Nurse Wound Care [address] [place] [address] 09/12/2024 10:30 AM EST Nurse Only Wound Care, [address] [place] [address] [facility], Nurse Wound Care [address] [place] [address] [place] [address] 09/15/2024 10:30 AM EST Nurse Only Wound Care, [address] [place] [address] [facility], Nurse Wound Care [address] [place] [address] [place] [address] 09/16/2024 1:00 PM EST Office Visit Wound Care, [address] [place] [address] Vinnie Blount MD [address] [place] [address] 09/19/2024 10:30 AM EST Nurse Only Wound Care, [address] [place] [address] [place], Nurse Wound Care [address] [place] [address], [place] [address] 09/22/2024 10:30 AM EST Nurse Only Wound Care, [address] [place] [address] [facility], Nurse Wound Care [address] [place] [address] 09/26/2024 10:30 AM EST Nurse Only Wound Care, [address] [place] [address] [facility], Nurse Wound Care [address] [place] [address] 09/29/2024 11:00 AM EST Office Visit Wound Care, [address] [place] [address] Yuriy Hilario MD [address] [place] [address] 10/09/2024 12:58 PM EST Hospital Encounter OR [facility], Operating Room, [facility] - 4th Floor [address] [place] [address], [place] [address] Bigg Wetzel MD [address] [place] [address] 10/09/2024 12:58 PM EST - 10/09/2024 1:59 PM EST Surgery OR [facility], Operating Room, [facility] - 4th Floor [address] [place] [address], [place] [address] Bigg Wetzel MD [address] [place] [address] COLONOSCOPY FLEXIBLE PROXIMAL DIAGNOSTIC 10/24/2024 10:00 AM EDT Office Visit Marilee Montoya [address] [place] [address] Darnell Boggs DO [address] [place] [address] Scheduled Procedures Name Priority Associated Diagnoses Date/Ti [...] this encounter Medical Devices Implanted Type Area Mac Developer Device Identifier Shelf Expiration Date Model / Serial / Lot Device Perm Cntrl [id number] - [id number] Implanted:Qty: 2 on 09/27/2015 by Sharda Ruiz, Corey Rucker MD at OR [facility] Uterus [employer] 05/03/2017 [id number] / / [id number] documented as of this encounter Visit Diagnoses [...] Power of Attor benoit? No Care Teams Diesel Mechanic Helper Relationship Specialty Start Date End Date Melissa Cruz PA-C [address] [facility] [address] [place] [address] PCP - General Physician Substitute School Nurse 06/02/21 documented as of this encounter
--- OUTSIDE RECORDS SUMMARY | 2024-12-08 15:19 | External Medical Summary | Summary of Care ---
Author Name Unknown Organization [facility] Address [address] [place] [address] Phone [phone] Care Team Providers Care Major League Baseball Player Name Role Phone Melissa Cruz PA-C Primary Care Provider +1- [phone] Reason for Visit * Reason Comments eRx-Medication Refill Encounter Details Date Type Department Care Team (Late st Contact Info) Description 08/27/[address] [place] [address] Melissa Cruz PA-C [address] [place] [address] Mild persistent asthma without complication; Edema, unspecified type Allergies Active Allergy Reactions [...] FOOD.. 90 Tablet 5 12/03/19 24 Active Ferrous Sulfate 28 MG [...] 1 5 2:59 PM EST 07/21/20 24 Active DULoxetine HCl 60 [...] MORNING 90 Tablet 1 08/27/19 25 Active Cetirizine HCl 10 MG Oral Tablet (ZyrTEC)Indicatio ns:Mild persistent asthma without complication TAKE 1 TABLET BY MOUTH EVERY DAY 90 Tablet 1 03/17/20 24 025 Discontinued Potassium Chloride ER 10 MEQ Oral Tablet Extended ReleaseIndication s:Edema, unspecified type TAKE 1 TABLET BY MOUTH EVERY DAY IN THE MORNING 90 Tablet 1 04/23/20 24 025 Discontinued documented as of [...] Next Due Pneumococcal Conjugate Vacci ne, 20-valent ([id number]) 12/04/2022 Pneumococcal Polysaccharide PPV23 (Pneumovax) 05/06/2011 Seasonal [...] encounter Miscellaneous Notes * Telephone Encounter - Judson Hinson, [facility] - 08/27/2024 1:11 PM ESTSigned Prescriptions: Disp Refills Cetirizine HCl 10 MG Oral Tablet (ZyrTEC) 90 Tab*1 Sig: TAKE 1 TABLET BY MOUTH EVERY DAYAuthorizing Provider: MELISSA CRUZ User: JUDSON HINSON Potassium Chloride ER 10 MEQ Oral Tablet E*90 Tab*1 Sig: TAKE 1 TABLET BY MOUTH EVERY DAY IN THE MORNINGAuthorizing Provider: MELISSA CRUZ User: JUDSON HINSON documented in this encounter Plan of Treatment Upcoming Encounters Date Type Department Care Team (Latest Contact Info) Description 08/29/2024 10:30 AM EST Nurse Only Wound Care, [address] [address] [facility], Nurse Wound Care [address] [place] [address] 09/01/2024 11:00 AM EST Office Visit Wound Care, [address] [address] Yuriy Hilario MD [address] [place] [address] 09/02/2024 10:30 AM EST Nurse Only Wound Care, [address] [address] [facility], Nurse Wound Care [address] [place] [address] 09/04/2024 11:00 AM EST Office Visit [facility] [address] [place] [address] Melissa Cruz PA-C [address] [place] [address] 09/05/2024 10:30 AM EST Nurse Only Wound Care, [address] [address] [facility], Nurse Wound Care [address] [place] [address] 09/09/2024 10:30 AM EST Nurse Only Wound Care, [address] [place] [address] [facility], Nurse Wound Care 400 [place] [address] 09/11/2024 10:30 AM EST Nurse Only Wound Care, [facility] [address] [place] [address] [facility], Nurse Wound Care [address] [place] [address] 09/12/2024 10:30 AM EST Nurse Only Wound Care, [address] [place] [address] [facility], Nurse Wound Care [address] [place] [address] 09/15/2024 10:30 AM EST Nurse Only Wound Care, [address] [place] [address] [facility], Nurse Wound Care [address] [place] [address] 09/16/2024 1:00 PM EST Office Visit Wound Care, [place] [address] [place] [address] Vinnie Blount MD [address] [place] [address] 10/09/2024 1:14 PM EST Hospital Encounter OR [facility], Operating Room, [facility] Floor [address] [place] [address], [place] [address] Bigg Wetzel MD [address] [place] [address] 10/09/2024 1:14 PM EST - 10/09/2024 2:15 PM EST Surgery OR [facility], Operating Room, [facility] - 4th Floor [address] [place] [address], [place] [address] Bigg Wetzel MD [address] [place] [address] COLONOSCOPY FLEXIBLE PROXIMAL DIAGNOSTIC 10/24/2024 10:00 AM EDT Office Visit [facility] [address] [place] [address] Darnell Boggs DO [address] [place] [address] Scheduled Procedures Name Priority Associated Diagnoses Date/Ti [...] this encounter Medical Devices Implanted Type Area Salt Machine Operator Device Identifier Shelf Expiration Date Model / Serial / Lot Device Perm Cntrl [id number] - [id number] Implanted:Qty: 2 on 09/27/2015 by Sharda Ruiz, Corey Rucker MD at OR [facility] Uterus [employer] 05/03/2017 [id number] / / [id number] documented as of this encounter Visit Diagnoses Diagnosis Mild persistent asthma without complication Unspecified asthma Edema, unspecified type Screening for colon cancer [...] Power of Attor benoit? No Care Teams Major League Baseball Player Relationship Specialty Start Date End Date Melissa Cruz, AYLAC [address] [facility] [place] [address] PCP - General Physician Hr Representative 06/02/21 documented as of this encounter
--- OUTSIDE RECORDS SUMMARY | 2024-12-08 15:19 | External Medical Summary | Summary of Care ---
Author Name Unknown Organization [facility] Address [address] [place] [address] Phone [phone] Care Team Providers Care Shipping Manager Name Role Phone Carylshyla Melissa Downing PA-C Primary Care Provider +1- [phone] Reason for Visit * Reason Onset Date Comments Referral 09/04/2024 [facility] Pain Manage ment Encounter Details Date Type Department Care Team ([facility] Contact Info) Description 09/04/2024 Telephone Pharmacy, [place] [address] [place] [address] [facility] [address] [place] [address] Referral ([facility] Pain Management) Allergies Active Allergy Reactions Criticality Noted Date [...] Next Due Pneumococcal Conjugate Vacci ne, 20-valent ([id number]) 12/04/2022 Pneumococcal Polysaccharide PPV23 (Pneumovax) 05/06/2011 Seasonal [...] No 03/10/2024 Does the household have a up health systemr source of income? (Household - for ages [...] encounter Miscellaneous Notes * Telephone Encounter - Corire Gil RPh - 09/04/2024 4:43 PM EST Referral received and reviewed. Reason for referral: Pain Please Schedule patient. Referring provider: Melissa Cruz PA-C Initial appt length: 60 min Appointment type indicated: Pt Prefence- Inperson or Video Preferred Clinic for Appointment: Marilee Gil RPh 09/04/2024, 4:44 PM * Telephone Encounter - Chela Ching steak tenderizer machine - 09/04/2024 3:21 PM EST Comments Pharmacist Medication Therapy Management: Minimum frequency patient should be seen in person for medication management: as appropriate per clinical condition and patient status By my signature, I understand that my patient Mica Jimenez will have her medication therapy managed by the [facility] Medication Therapy Disease Management Clinic ([facility]) per established policies, procedures, and protocols. I also certify that this referral may serve as an initiation of servicefor the management of drug therapy in the above noted patient. [facility] providers will be responsible for scheduling patient visits, obtaining appropriate laboratory studies, and adjusting medication management therapy per patient's need, in addition to those roles spelled out in the clinic policy, procedures, and drug management protocols. I understand that the service provided by the [facility] Clinic is voluntary and have informed patient that they can refuse the service at their discretion. I am aware that the [facility] Clinic will provide me with a copy of the patient encounter via my [employer]. I authorize the [facility] Clinic to carry out these activities on my behalf. I consider this program to be a necessary part of the patient's medical care. Melissa Cruz PA-C Order Specific Questions Referral Priority Within 30 days (routine) Where should this appointment be scheduled? [facility] Referring Provider Role: Primary Care Reason for Referral: Pain Pain Diagnosis: Osteoarthritis Neuropathy Pain Treatment Options: Non-opioids only Pain Treatment Goal: Med Optimization documented in this encounter Plan of Treatment Upcoming Encounters Date Type Department Care Team (Latest Contact Info) Description 09/05/2024 10:30 AM EST Nurse Only Wound Care, [address] [address] [facility], Nurse Wound Care [address] [place], [place] [address] [address] 09/09/2024 10:30 AM EST Nurse Only Wound Care, [address] [address] [facility], Nurse Wound Care [address] [place], [place] [address] [address] 09/12/2024 10:30 AM EST Nurse Only Wound Care, [address] [address] [facility], Nurse Wound Care [address] [place], [place] [address] [address] 09/15/2024 10:30 AM EST Nurse Only Wound Care, [address] [address] [facility], Nurse Wound Care [address] [place] [address] 09/16/2024 1:00 PM EST Office Visit Wound Care, [place] [address] [place] [address] Vinnie Blount MD [address] [place] [address] 09/19/2024 10:30 AM EST Nurse Only Wound Care, [address] [address] [facility], Nurse Wound Care [address] [place] [address] 09/22/2024 10:30 AM EST Nurse Only Wound Care, [address] [address] [facility], Nurse Wound Care [address] [place] [address] 09/26/2024 10:30 AM EST Nurse Only Wound Care, [address] [address] [facility], Nurse Wound Care [address] [place] [address] 09/29/2024 11:00 AM EST Office Visit Wound Care, [address] [address] Yuriy Hilario MD [address] [place] [address] 10/03/2024 11:40 AM EST Nurse Only Ancillary, [place] [address] [place] [address] [place], Nurse Ancillary [address] [place] [address] 10/09/2024 12:58 PM EST Hospital Encounter [facility], Operating [facility], [facility] - 4th [facility] [address] Bigg Wetzel MD [address] [place] [address] 10/09/2024 12:58 PM EST - 10/09/2024 1:59 PM EST Surgery [facility], Operating Room, [facility] - 4th Floor [address] [facility] [place] [address] Bigg Wetzel MD [address] [place] [address] COLONOSCOPY FLEXIBLE PROXIMAL DIAGNOSTIC 10/24/2024 10:00 AM EDT Office Visit [facility] [address] [facility] [place] [address] Darnell Boggs DO [address] [place] [address] 12/04/2024 1:20 PM EDT Office Visit Family [facility] [address] [place] [address] Melissa Cruz PA-C [address] [place] [address] Scheduled Procedures Name Priority Associated Diagnoses Date/Ti [...] 12/04/2022, 05/06/2011 Influenza Vaccine (FLU shot) Completed 04/23/2024, 06/25/2023, 06/05/2022, Additional history exists Diabetic Foot Exam Discontinued HPV (Gardasil) Vaccine Aged Out No lo nger eligible based on patient's age to complete this topic MENINGOCOCCAL (MENACTRA/MENVEO) Aged Out No longer eligible based on patient's age to complete this topic documented as of this encounter Medical Devices Implanted Type Area Art Installer Device Identifier Shelf Expiration Date Model / Serial / Lot Device Perm Cntrl [id number] - [id number] Implanted:Qty: 2 on 09/27/2015 by Sharda Ruiz, Corey Rucker MD at OR [facility] Uterus [employer] 05/03/2017 [id number] / / [id number] documented as of this encounter Advance Directives [...] of Attor benoit? No Care Teams Shipping Manager Relationship Specialty Start Date End Date Melissa Cruz PA-C [address] [facility] [address] [place] [address] PCP - General Physician Student Financial Services Counselor 06/02/21 documented as of this encounter
--- OUTSIDE RECORDS SUMMARY | 2024-12-08 15:19 | External Medical Summary | Summary of Care ---
Author Name Unknown Organization [facility] Address [address] [place] [address] Phone [phone] Care Team Providers Care Fountain Helper Name Role Phone Melissa Cruz PA-C Primary Care Provider +1- [phone] Reason for Referral * Evaluate & Treat - Unlimited Visits (Within 30 days (routine)) - Pending Review Specialty Diagnoses / Procedures Referred By Phylicia zambrano Referred To Contact Pharmacist / Pharmacy Diagnoses Primary osteoarthritis of right knee Neuropathy Melissa Cruz PA-C [address] [place] [address] Phone: tel: fax: Referral ID Status Reason Start Date Expiration Date Visits Requested Visits Authorized [id number] Pending Review Specialty Services Required 09/04/2024 03/03/2025 99 [phone] Question Answer Referral Priority Within 30 days (routine) Where should this appointment be scheduled? [facility] Referring Provider Role: Primary Care Reason for Referral: Pain Pain Diagnosis: Osteoarthritis, Neuropathy Pain Treatment Options: Non-opioids only Pain Treatment Goal: Med Optimization Comments Pharmacist Medication Therapy Management: Minimum frequency patient should be seen in person for medication management: as appropriate per clinical condition and patient status By my signature, I understand that my patient Mica Jimenez will have her medication therapy managed by the [facility] Medication Therapy Disease Management Clinic ([facility]) per established policies, procedures, and protocols. I also certify that this referral may serve as an initiation of service for the management of drug therapy in the above noted patient. [facility] providers will be responsible for scheduling patient visits, obtaining appropriate laboratory studies, and adjusting medication management therapy per patient's need, in addition to those roles spelled out in the clinic policy, procedures, and drug management protocols. I understand that the service provided by the [facility] is voluntary and have informed patient that they can refuse the service at their discretion. I am aware that the [facility] Clinic will provide me with a copy of the patient encounter via my [employer]. I authorize the [facility] to carry out these activities on my behalf. I consider this program to be a necessary part of the patient's medical care. Melissa Cruz PA-C Reason for Visit * Reason Onset Date Comments Referral 09/04/2024 [facility] Pain Encounter Details Date Type Department Care Team ([facility] st Contact Info) Description 09/04/2024 Telephone Pharmacy, [place] [address] [place] [address] [place], [facility] [address] [facility] [place] [address] Referral ([facility] Pain) Allergies Active Allergy Reactions Criticality Noted Date Comments Aspirin 01/27/2014 Increased bleeding documented as of this encounter (statuses as of 09/04/2024) Medications traZODone (DESYREL) 50 MG Tablet Take [...] DAY IN THE MORNING 90 Tablet 1 Active documented as of this encounter (statuses as of 09/04/2024) Active Problems Problem Noted Date Diagnosed Date [...] as of this encounter (statuses as of 09/04/2024) Resolved Problems Problem Noted Date Diagnosed Date [...] as of this encounter (statuses as of 09/04/2024) Immunizations Name Administration Dates Next Due Pneumococcal Conjugate Vacci ne, 20-valent ([id number]) 12/04/2022 Pneumococcal Polysaccharide PPV23 (Pneumovax) 05/06/2011 Seasonal [...] Telephone Encounter - Melissa Cruz PA-C - 09/04/2024 3:18 PM EST Apologies. Clicked the wrong box. * Telephone Encounter - Corrie Gil RPh - 09/04/2024 2:26 PM EST Referral received and reviewed. Reason for referral: Pain Need clarification from referring provider before scheduling. Melissa, Patient noted to have referral to [facility] for chronic pain due to Neuropathy and OA Referral noted to be opioid/ non-opioid Patient noted to be chronic Benzodiazepine Clonazepam, which is a contraindication with opioid treatment. Can you clarify? Thank you, Corrie Gil RP * Telephone Encounter - Meenu Lind CPhT - 09/04/2024 1:18 PM EST Comments Pharmacist Medication Therapy Management: Minimum frequency patient should be seen in person for medication management: as appropriate per clinical condition and patient status By my signature, I understand that my patient Mica Jimenez will have her medication therapy managed by the [facility] Medication Therapy Disease Management Clinic ([facility]) per established policies, procedures, and protocols. I also certify that this referral may serve as an initiation of servicefor the management of drug therapy in the above noted patient. [facility] providers will be responsible for scheduling patient visits, obtaining appropriate laboratory studies, and adjusting medication management therapy per patient's need, in addition to those roles spelled out in the clinic policy, procedures, and drug management protocols. I understand that the service provided by the [facility] Clinic is voluntary and have informed patient that they can refuse the service at their discretion. I am aware that the [facility] Clinic will provide me with a copy of the patient encounter via my [employer]. I authorize the [facility] Clinic to carry out these activities on my behalf. I consider this program to be a necessary part of the patient's medical care. Melissa Cruz PA-C Order Specific Questions Referral Priority Within 30 days (routine) Where should this appointment be scheduled? [facility] Referring Provider Role: Primary Care Reason for Referral: Pain Pain Diagnosis: Osteoarthritis Neuropathy Pain Treatment Options: Opioids and/or Non-opioids Does patient have a signed CASTILLO? This is required for patients on opioids Yes Has patient completed a Urine Drug Screen in the past 3 months? This is required for patients on opioids Yes Pain Treatment Goal: Med Optimization documented in this encounter Plan of Treatment Upcoming Encounters Date Type Department Care Team (Latest Contact Info) Description 09/05/2024 10:30 AM EST Nurse Only Wound Care, [address] [address] [facility], Nurse Wound Care [address] [place] [address] [place] [address] 09/09/2024 10:30 AM EST Nurse Only Wound Care, [address] [place] [address] [facility], Nurse Wound Care [address] [place] [address] [place] [address] 09/12/2024 10:30 AM EST Nurse Only Wound Care, [address] [address] [facility], Nurse Wound Care [address] [place] [address] 09/15/2024 10:30 AM EST Nurse Only Wound Care, [address] [address] [facility], Nurse Wound Care [address] [place] [address] 09/16/2024 1:00 PM EST Office Visit Wound Care, [place] [address] [place] [address] Vinnie Blount MD [address] [place] [address] 09/19/2024 10:30 AM EST Nurse Only Wound Care, [address] [address] [facility], Nurse Wound Care [address] [place] [address] 09/22/2024 10:30 AM EST Nurse Only Wound Care, [address] [address] [facility], Nurse Wound Care [address] [place] [address] 09/26/2024 10:30 AM EST Nurse Only Wound Care, [address] [address] [facility], Nurse Wound Care [address] [place] [address] 09/29/2024 11:00 AM EST Office Visit Wound Care, [address] [address] Yuriy Hilario MD [address] [place] [address] [place] [address] 10/03/2024 11:40 AM EST Nurse Only Ancillary, [place] [address] [place] [address] [place], Nurse Ancillary [address] [place] [address] 10/09/2024 12:58 PM EST Hospital Encounter OR [facility], Operating Room, [facility] - 4th Floor [address] [place] [address] Bigg Wetzel MD [address] [place] [address] 10/09/2024 12:58 PM EST - 10/09/2024 1:59 PM EST Surgery OR [facility], Operating Room, [facility] Floor [address] [place] [phone] Bigg Wetzel MD [address] [place] [address] COLONOSCOPY FLEXIBLE PROXIMAL DIAGNOSTIC 10/24/2024 10:00 AM EDT [facility] [address] [place] [address] Darnell Boggs DO [address] [place] [address] 12/04/2024 1:20 PM EDT Office Visit [facility] [address] [place] [address] Melissa Cruz PA-C [address] [place] [address] Scheduled Procedures Name Priority Associated Diagnoses Date/Ti me COLONOSCOPY FLEXIBLE PROXIMAL DIAGNOSTIC Screening for colon cancer 10/09/2024 12:58 PM EST Scheduled Referrals Name Type Priority Associated Diagnoses Orde r Schedule PHARMACIST MEDS THERAPY [facility] REFERRAL OP Referral Within 30 days (routine) Primary osteoarthritis of right knee Neuropathy Ordered: 09/04/2024 Health Maintenance Due Date Last [...] this encounter Medical Devices Implanted Type Area Pulp Cooker Device Identifier Shelf Expiration Date Model / Serial / Lot Device Perm Cntrl [id number] - [id number] Implanted:Qty: 2 on 09/27/2015 by Sharda Ruiz, Corey Rucker MD at OR [facility] Uterus [employer] 05/03/2017 [id number] / / [id number] documented as of this encounter Visit Diagnoses [...] of Attor benoit? No Care Teams Fountain Helper Relationship Specialty Start Date End Date Melissa Cruz PA-C 4752 [facility] [address] [place] [address] PCP - General Physician Weaver Wire Loom 06/02/21 documented as of this encounter
--- OUTSIDE RECORDS SUMMARY | 2024-12-08 15:19 | External Medical Summary ---
Author Name Unknown Address Unknown Organization K01:[facility] [place] [address] [facility] [address] Laboratory Report Ordering Provider Test Date Status FRANKY FULTON 09/04/2024 12:07:17 Final Drugs that require complianc e testing:

Opioids:
None

Benzodiazepines
Clonazepam: Date/Time of last Dose 08/31 morning

Cutoff Concentrations:
Drug Level
Amphetamines 500 ng/mL
Benzodiazepines 100 ng/mL
Cannabinoids 50 ng/mL
Cocaine Metabolite 150 ng/mL
Fentanyl 1 ng/mL
Hydrocodone / Hydromorphone 300 ng/mL
Methadone Metabolite 100 ng/mL
Morphine / Codeine 300 ng/mL
Oxycodone / Oxymorphone 100 ng/mL

Screening results are presumptive and can only be used for medical purposes. Confirmatory testing is available upon request. Observation Date Value Abnormality Reference (Units) Status COMPLIANCE INTERPRETATION 09/04/2024 12:07:17 Based on the medication information provided: Final COMPLIANCE INTERPRETATION 09/04/2024 12:07:17 The absence of 7-aminoclonazepam is CONSISTENT with the last dose of clonazepam taken 4 days prior to urine drug testing. Final Changed Report: Previously r eported on 09/05/2024 at 1339 EST. See Results History in EPIC for previous versions of the report. Amphetamines, Urine screen 09/04/2024 12:07:17 Negative Negative Final Benzodiazepines, Urine screen 09/04/2024 12:07:17 Refer to confirmation results Abnormal Negative Final Cannabinoids, Urine screen 09/04/2024 12:07:17 Negative Negative Final Cocaine Metabolite, Urine screen 09/04/2024 12:07:17 Negative Negative Final fentaNYL [Presence] in Urine by Screen method 09/04/2024 12:07:17 Negative Negative Final HYDROcodone [Presence] in Urine by Screen method 09/04/2024 12:07:17 Negative Negative Final 1-Iaytnhhkeg-9,5-Dimeth yl-3,3-Diphenylpyrrolid ine (EDDP) [Presence] in Urine 09/04/2024 12:07:17 Negative Negative Final Opiates, Urine screen 09/04/2024 12:07:17 Negative Negative Final oxyCODONE [Presence] in Urine by Screen method 09/04/2024 12:07:17 Negative Negative Final FORENSIC VALID INTERPRETATION 09/04/2024 12:07:17 Normal Final Creatinine, Urine 09/04/2024 12:07:17 107 (mg/dL) Final Performing Location [facility] [place] [address] [facility] [address]
--- OUTSIDE RECORDS SUMMARY | 2024-12-08 15:19 | External Medical Summary | Summary of Care ---
Author Name Unknown Organization [facility] Address [address] [place] [address] Phone [phone] Care Team Providers Care Geotechnical Intern Name Role Phone Melissa Cruz Chang FONSECA Primary Care Provider +1- [phone] Reason for Visit * Reason Onset Date Comments Supply 08/29/2024 Encounter Details Date Type Department Care Team (Late st Contact Info) Description 08/29/2024 Telephone Wound Care, [facility] [address] [place], [place] [id number] Yuriy Hilario MD [address] [place], [place] [id number] Supply Allergies Active Allergy Reactions Criticality Noted Date Comments Aspirin 01/27/2014 Increased bleeding documented as of this encounter (statuses as of 08/29/2024) Medications traZODone (DESYREL) 50 MG Tablet Take [...] as of this encounter (statuses as of 08/29/2024) Active Problems Problem Noted Date Diagnosed Date [...] as of this encounter (statuses as of 08/29/2024) Resolved Problems Problem Noted Date Diagnosed Date [...] as of this encounter (statuses as of 08/29/2024) Immunizations Name Administration Dates Next Due Pneumococcal Conjugate Vacci ne, 20-valent ([id number]) 12/04/2022 Pneumococcal Polysaccharide PPV23 (Pneumovax) 05/06/2011 Seasonal [...] No 03/10/2024 Does the household have a [place] [...] Telephone Encounter - Veda Jacobson CMA - 08/29/2024 8:29 AM EST Received faxed from [facility] medical supply specialists Patient's insurance plan has refused our request to service your patient. [facility] has received permission to forward patient's order to [facility] "Patient has not been sent supplies while we coordinate care" documented in this encounter Plan of Treatment Upcoming Encounters Date Type Department Care Team (Latest Contact Info) Description 08/29/2024 10:30 AM EST Nurse Only Wound Care, [address] [place] [address] [facility], Nurse Wound Care [address] [place] [address] [place] [address] 09/01/2024 11:00 AM EST Office Visit Wound Care, [address] [place] [address] Yuriy Hilario MD [address] [place] [address] 09/02/2024 10:30 AM EST Nurse Only Wound Care, [address] [place] [address] [facility], Nurse Wound Care [address] [place] [address] 09/04/2024 11:00 AM EST Office Visit [facility] [address] [place] [address] Melissa Cruz PA-C [address] [place] [address] 09/05/2024 10:30 AM EST Nurse Only Wound Care, [address] [place] [address] [facility], Nurse Wound Care [address] [place] [address], [place] [address] 09/09/2024 10:30 AM EST Nurse Only Wound Care, [address] [place] [address] [facility], Nurse Wound Care [address] [place] [address], [place] [address] 09/11/2024 10:30 AM EST Nurse Only Wound Care, [address] [place] [address] [facility], Nurse Wound Care [address] [place] [address], [place] [address] 09/12/2024 10:30 AM EST Nurse Only Wound Care, [address], [place] [address] [facility], Nurse Wound Care [address] [place] [address], [place] [address] 09/15/2024 10:30 AM EST Nurse Only Wound Care, [address], [place] [address] [facility], Nurse Wound Care [address] [place] [address] 09/16/2024 1:00 PM EST Office Visit Wound Care, [place] [address] [place] [address] Vinnie Blount MD [address] [place] [address] 10/09/2024 1:14 PM EST Hospital Encounter OR [facility], Operating Room, [facility] - 4th Floor [address] [place] [address] Bigg Wetzel MD [address] [place] [address] 10/09/2024 1:14 PM EST - 10/09/2024 2:15 PM EST Surgery OR [facility], Operating Room, [facility] - 4th Floor [address] [place] [address] Bigg Wetzel MD [address] [place] [address] COLONOSCOPY FLEXIBLE PROXIMAL DIAGNOSTIC 10/24/2024 10:00 AM EDT Office Visit Cardiology, [place] [address] [place] [address] Darnell Boggs DO [address] [place] [address] Scheduled Procedures Name Priority Associated Diagnoses Date/Ti [...] this encounter Medical Devices Implanted Type Area Polyethylene Bag Machine Operator Device Identifier Shelf Expiration Date Model / Serial / Lot Device Perm Cntrl [id number] - [id number] Implanted:Qty: 2 on 09/27/2015 by Sharda Ruiz, Corey Rucker MD at OR [facility] Uterus [employer] 05/03/2017 [id number] / / [id number] documented as of this encounter Advance Directives [...] Power of Attor benoit? No Care Teams Geotechnical Intern Relationship Specialty Start Date End Date Melissa Cruz PA-C [address] [facility] [address] [place] [address] PCP - General Physician [employer]s 06/02/21 documented as of this encounter
--- OUTSIDE RECORDS SUMMARY | 2024-12-08 15:19 | External Medical Summary | Summary of Care ---
Author Name Unknown Organization [facility] Address [address] [place] [address] Phone [phone] Care Team Providers Care Care Professionals Name Role Phone CarylTy mansfieldanthony Downing PA-C Primary Care Provider +1- [phone] Reason for Visit * Reason Comments Follow [...] 11:00 AM EST Office Visit Wound Care, [facility] [address] [place] [address] Yuriy Hilario MD [address] [place] [address] Multiple open wounds of lower leg, unspecified [...] Next Due Pneumococcal Conjugate Vacci ne, 20-valent ([id number]) 12/04/2022 Pneumococcal Polysaccharide PPV23 (Pneumovax) 05/06/2011 Seasonal [...] 03/10/2024 Does the household have a [facility] source of income? (Household - for [...] or greater, please contact the [facility]. Please check your toes frequently. If they become blue, purple, pale, cool, numb, and/or tingling elevate your leg higher than your heart for one hour. If you have no relief of the symptoms, cut the entire wrap off and call the [facility], . Keep the wrap dry. If the wrap slides down or bunches at the ankle, call The [facility]. Elevate legs above heart for 30 minutes [...] or greater, please contact the [facility]. Please check your toes frequently. If they become blue, purple, pale, cool, numb, and/or tingling elevate your leg higher than your heart for one hour. If you have no relief of the symptoms, cut the entire wrap off and call the [facility], . Keep the wrap dry. If the wrap slides down or bunches at the ankle, call [facility]. Elevate legs above heart for 30 minutes [...] when she was placed on antibiotics from [facility] - would like to know when [...] Description 09/04/2024 11:00 AM EST Office Visit [facility] [address] [place] [address] Melissa Cruz PA-C [address] [place] [address] 09/05/2024 10:30 AM EST Nurse Only Wound Care, [address] [address] [facility], Nurse Wound Care [address] [place] [address] 09/09/2024 10:30 AM EST Nurse Only Wound Care, [address] [place] [address] [facility], Nurse Wound Care [address] [place] [address] 09/12/2024 10:30 AM EST Nurse Only Wound Care, [address] [place] [address] [facility], Nurse Wound Care [address] [place] [address] [place] [address] 09/15/2024 10:30 AM EST Nurse Only Wound Care, [address] [place] [address] [facility], Nurse Wound Care [address] [place] [address] [place] [address] 09/16/2024 1:00 PM EST Office Visit Wound Care, [address] [place] [address] Vinnie Blount MD [address] [place] [address] 09/19/2024 10:30 AM EST Nurse Only Wound Care, [address] [place] [address] [facility], Nurse Wound Care [address] [place] [address], [place] [address] 09/22/2024 10:30 AM EST Nurse Only Wound Care, [address] [place] [address] [facility], Nurse Wound Care [address] [place] [address] 09/26/2024 10:30 AM EST Nurse Only Wound Care, [address] [place] [address] [facility], Nurse Wound Care [address] [place] [address] 09/29/2024 11:00 AM EST Office Visit Wound Care, [address] [place] [address] Yuriy Hilario MD [address] [place] [address] 10/09/2024 12:58 PM EST Hospital Encounter OR [facility], Operating Room, [facility] - 4th Floor [address] [place] [address], [place] [address] Bigg Wetzel MD [address] [place] [address] 10/09/2024 12:58 PM EST - 10/09/2024 1:59 PM EST Surgery OR [facility], Operating Room, [facility] - 4th Floor [address] [place] [address], [place] [address] Bigg Wetzel MD [address] [place] [address] COLONOSCOPY FLEXIBLE PROXIMAL DIAGNOSTIC 10/24/2024 10:00 AM EDT Office Visit Marilee Montoya [address] [place] [address] Darnell Boggs DO [address] [place] [address] Scheduled Procedures Name Priority Associated Diagnoses Date/Ti [...] this encounter Medical Devices Implanted Type Area Assurance Auditor Device Identifier Shelf Expiration Date Model / Serial / Lot Device Perm Cntrl [id number] - [id number] Implanted:Qty: 2 on 09/27/2015 by Sharda Ruiz, Corey Rucker MD at OR [facility] Uterus [employer] 05/03/2017 [id number] / / [id number] documented as of this encounter Visit Diagnoses [...] Power of Attor benoit? No Care Teams Care Professionals Relationship Specialty Start Date End Date Melissa Cruz PA-C [address] [facility] [address] [place] [address] PCP - General Physician Turf Grower 06/02/21 documented as of this encounter
--- OUTSIDE RECORDS SUMMARY | 2024-12-08 15:20 | External Medical Summary | Summary of Care ---
Author Name Unknown Organization [facility] Address [address] [place] [address] Phone [phone] Care Team Providers Care Machine Filler Servicer Name Role Phone CarylMelissa mansfield Jair FONSECA Primary Care Provider +1- [phone] Reason for Visit * Reason Comments Wound Care B/LLEPatient present s without dressings to B/LLE Wounds, unna boots slid to ankles bilaterally Patient states her dressings came off in the middle of the night last night Encounter Details Date Type Department Care Team (Late st Contact Info) Description 08/22/2024 10:30 AM EST Nurse Only Wound Care, [facility] [address] [place] [address] [facility], Nurse Wound Care [address] [place] [address] Wound Care (B/LLE/Patient presents without... Allergies Active Allergy Reactions Criticality Noted Date Comments Aspirin 01/27/2014 Increased bleeding documented as of this encounter (statuses as of 08/22/2024) Medications traZODone (DESYREL) 50 MG Tablet Take [...] as of this encounter (statuses as of 08/22/2024) Active Problems Problem Noted Date Diagnosed Date [...] as of this encounter (statuses as of 08/22/2024) Resolved Problems Problem Noted Date Diagnosed Date [...] as of this encounter (statuses as of 08/22/2024) Immunizations Name Administration Dates Next Due Pneumococcal Conjugate Vacci ne, 20-valent ([id number]) 12/04/2022 Pneumococcal Polysaccharide PPV23 (Pneumovax) 05/06/2011 Seasonal [...] Patient Instructions * Patient Instructions* Veda Jacobson, ALEPSH - 08/22/2024 1:15 PM EST Compression Therapy Education: Any questions, redness or swelling around the wound and development of a temperature of 101F or greater, please contact the [facility]. Please check your toes frequently. If they become blue, purple, pale, cool, numb, and/or tingling elevate your leg higher than your heart for one hour. If you have no relief of the symptoms, cut the entire wrap off and call the [facility], . Keep the wrap dry. If the wrap slides down or bunches at the ankle, call [facility]. Elevate legs above heart for 30 minutes [...] Nursing Notes * Veda Jacobson CMA - 08/22/2024 1:03 PM EST Treatment done as ordered by Dr. Hilario B/LLE - Optifoam AG gentle cut in half and 1/2 applied to each heel Vaseline applied to all open wound beds Then covered with Optifoam AG gentle Then covered with 4x4 fluff gauze Then wrapped with Kerlix, secured with transpore white From base of toes to just below the knee ABD pads applied to each, posterior ankle, posterior calf,anterior ankle and horn, then wrapped with Kerlix to hold in place. B/LLE to help shape leg Unna Z wrapped from base of toes to just below the knee Size 5 surgilast applied Compression education reviewed with patient and she voiced her understanding Advised patient to call with any questions or concerns Compression Therapy Education: Any questions, redness or swelling around the wound and development of a temperature of 101F or greater, please contact the [facility]. Please check your toes frequently. If they become blue, purple, pale, cool, numb, and/or tingling elevate your leg higher than your heart for one hour. If you have no relief of the symptoms, cut the entire wrap off and call the [facility], . Keep the wrap dry. If the wrap slides down or bunches at the ankle, call [facility]. Elevate legs above heart for 30 minutes 2-3 times a day. * Veda Jacobson CMA - 08/22/2024 12:59 PM EST Chief Complaint Patient presents with Wound Care B/LLE Patient presents without dressings to B/LLE Wounds, unna boots slid to ankles bilaterally Patient states her dressings came off in the middle of the night last night Patient was instructed to not get up on the exam table/exam chair until directed and assisted by their provider; patient is to remain seated in the chair/ wheelchair/ exam table/ exam chair for fall prevention and safety reasons. Patient is aware to have assistance to step down off exam table/exam chair with personnel. Patient voiced full comprehension of instructions. Shoes, socks and unna boots removed Wounds then legs and feet washed B/LLE - patient did have discomfort but tolerated well All wound beds were embedded with animal hair which took extra washing of the wound beds to try trini - patient did have discomfort during this process but states she understands that it has to be cleaned. She is still on antibiotics and she thinks she has 6 days remaining Again advised patient that wounds need to be covered with vaseline and dry gauze or the optifoam, also advised that if the unna boot slides it is imperative to remove them and call the office She voiced her understanding documented in this encounter Plan of Treatment Upcoming Encounters Date Type Department Care Team (Latest Contact Info) Description 08/25/2024 10:30 AM EST Nurse Only Wound Care, [address] [place] [address] [facility], Nurse Wound Care [address] [place] [address] [place] [address] 08/27/2024 10:30 AM EST Nurse Only Wound Care, [address] [place] [address] [facility], Nurse Wound Care [address] [place] [address] [place] [address] 08/27/2024 12:20 PM EST Office Visit [facility] [address] [place] [address] Melissa Cruz PA-C [address] [place] [address] 08/29/2024 10:30 AM EST Nurse Only Wound Care, [address] [place] [address] [facility], Nurse Wound Care [address] [place], [place] [address] [place] [address] 09/01/2024 11:00 AM EST Office Visit Wound Care, [address] [place] [address] Yuriy Hilario MD [address] [place] [address] 10/09/2024 10:08 AM EST Hospital Encounter OR [facility], Operating Room, [facility] - 4th Floor [address] [place] [address] Bigg Wetzel MD [address] [place] [address] 10/09/2024 10:08 AM EST - 10/09/2024 11:09 AM EST Surgery OR [facility], Operating Room, [facility] - 4th Floor [address] [place] [address] Bigg Wetzel MD [address] [place] [address] COLONOSCOPY FLEXIBLE PROXIMAL DIAGNOSTIC 10/24/2024 10:00 AM EDT Office Visit [facility] [address] [place] [address] Darnell Boggs DO [address] [place] [address] Scheduled Procedures Name Priority Associated Diagnoses Date/Ti me COLONOSCOPY FLEXIBLE PROXIMAL DIAGNOSTIC Screening for colon cancer 10/09/2024 10:08 AM EST Health Maintenance Due Date Last [...] this encounter Medical Devices Implanted Type Area Tilt Wall Supervisor Device Identifier Shelf Expiration Date Model / Serial / Lot Device Perm Cntrl [id number] - [id number] Implanted:Qty: 2 on 09/27/2015 by Sharda Ruiz, Corey Rucker MD at OR [facility] Uterus [employer] 05/03/2017 [id number] / / [id number] documented as of this encounter Visit Diagnoses [...] Power of Attor benoit? No Care Teams Machine Filler Servicer Relationship Specialty Start Date End Date Melissa Cruz PA-C [address] [address] [place] [address] PCP - General Physician High School Assistant Football Coach 06/02/21 documented as of this encounter
--- OUTSIDE RECORDS SUMMARY | 2024-12-08 15:20 | External Medical Summary | Summary of Care ---
Author Name Unknown Organization [facility] Address [address] [place] [place] [address] Phone [phone] Care Team Providers Care Porcelain Enamel Sprayer Name Role Phone Melissa Cruz Chang AGUILAC Primary Care Provider +1- [phone] Reason for Referral * Evaluate & Treat - Unlimited Visits (Within 10 days (routine)) - Pending Review Specialty Diagnoses / Procedures Referred By Phylicia zambrano Referred To Contact Wound Care Diagnoses Chronic ulcer of leg, limited to breakdown of skin, unspecified laterality (HCC) Yuriy Hilario MD [address] [place] [address] Phone: tel: fax: Referral ID Status Reason Start Date Expiration Date Visits Requested Visits Authorized [id number] Pending Review Specialty Services Required 08/25/[phone] Question Answer Referral Priority Within 10 days (routine) Where should this appointment be scheduled? [facility] Where is the wound? Knee and above Comments Assess for: Hx of wound healing problem; Seen at [facility] Wound Care; Patient requesting to be seen at a different wound care than [place]. Prefers going to [place]. Reason for Visit * Reason Onset Date Comments Advice 08/25/2024 Pt asking to be seen in [place] Encounter Details Date Type Department Care Team (Late st Contact Info) Description 08/25/2024 Telephone Access Center, [place] [address] [facility] *DO NOT REMOVE THIS DEPARTMENT* [place] [address] Services, Scheduling [address] [place] [address] Advice (Pt asking to be seen in [place]) Allergies Active Allergy Reactions Criticality Noted Date Comments Aspirin 01/27/2014 Increased bleeding documented as of this encounter (statuses as of 08/25/2024) Medications traZODone (DESYREL) 50 MG Tablet Take [...] as of this encounter (statuses as of 08/25/2024) Active Problems Problem Noted Date Diagnosed Date [...] as of this encounter (statuses as of 08/25/2024) Resolved Problems Problem Noted Date Diagnosed Date [...] as of this encounter (statuses as of 08/25/2024) Immunizations Name Administration Dates Next Due Pneumococcal Conjugate Vacci ne, 20-valent ([id number]) 12/04/2022 Pneumococcal Polysaccharide PPV23 (Pneumovax) 05/06/2011 Seasonal [...] Telephone Encounter - Kalyn Rivera OSA - 08/25/2024 1:06 PM EST I spoke with the patient regarding the wound care referral placed by Dr. Hilario. The patient would like to hold off on scheduling at either [place] or [facility] at this time. She would like to continue the wound care at [facility] and will be in on 08/27/24 for her nurse visit. * Telephone Encounter - Yuriy Hilario MD - 08/25/2024 12:15 PM EST Sounds good. Will place referral. [facility] has a wound care office as well, should the patient not wishto travel as far. * Telephone Encounter - Brittney Patterson OSA - 08/25/2024 9:00 AM EST Patient is a patient of Dr. Hilario in Wound Care at [place]. She has some upcoming nurse visits at [place] [facility] but she was asking could you refer her the [place] office. She would like to be seen in [place]. documented in this encounter Plan of Treatment Upcoming Encounters Date Type Department Care Team (Latest Contact Info) Description 08/27/2024 10:30 AM EST Nurse Only Wound Care, [facility] [address] [facility] [address] [facility], Nurse Wound Care [address] [facility] [place] [address] 08/27/2024 12:20 PM EST Office Visit [facility] [address] [place] [address] Melissa Cruz PA-C [address] [place] [address] 08/29/2024 10:30 AM EST Nurse Only Wound Care, [facility] [address] [facility] [address] [facility], [facility] [address] [facility] [address] 09/01/2024 11:00 AM EST Office Visit Wound Care, [facility] [address] [facility] [place] [address] [facility] [address] [facility] [address] 10/09/2024 10:08 AM EST Hospital Encounter OR [facility], Operating Room, [facility] - 4th Floor [address] [facility] [place] [address] Bigg Wetzel MD [address] [place] [facility] [address] 10/09/2024 10:08 AM EST - 10/09/2024 11:09 AM EST Surgery OR [facility], Operating Room, [facility] - 4th Floor [address] [facility] [place] [address] Bigg Wetzel MD [address] [place] [facility] [place] [address] COLONOSCOPY FLEXIBLE PROXIMAL DIAGNOSTIC 10/24/2024 10:00 AM EDT [facility] 400 [place] [place] [address] Darnell Boggs DO [address] [facility] [address] Scheduled Procedures Name Priority Associated Diagnoses Date/Ti me COLONOSCOPY FLEXIBLE PROXIMAL DIAGNOSTIC Screening for colon cancer 10/09/2024 10:08 AM EST Scheduled Referrals Name Type Priority Associated Diagnoses Orde r Schedule WOUND CARE REFERRAL OP Referral Within 10 days (routine) Chronic ulcer of leg, limited to breakdown of skin, unspecified laterality (HCC) Ordered: 08/25/2024 Health Maintenance Due Date Last Done Comments [...] this encounter Medical Devices Implanted Type Area Organic Lab Worker Device Identifier Shelf Expiration Date Model / Serial / Lot Device Perm Cntrl [id number] - [id number] Implanted:Qty: 2 on 09/27/2015 by Sharda Ruiz, Corey Rucker MD at OR [facility] Uterus [employer] 05/03/2017 [id number] / / [id number] documented as of this encounter Visit Diagnoses Diagnosis Chronic ulcer of leg, limited to breakdown of skin, unspecified laterality (HCC)- Primary Screening for colon cancer Special screening [...] Power of Attor benoit? No Care Teams Porcelain Enamel Sprayer Relationship Specialty Start Date End Date Melissa Cruz PA-C [address] [facility] [address] [facility] [place] [address] PCP - General Physician Entry Level Manufacturing Engineer 06/02/21 documented as of this encounter
--- OUTSIDE RECORDS SUMMARY | 2024-12-08 15:20 | External Medical Summary | Summary of Care ---
Author Name Unknown Organization [facility] Address [address] [place] [address] Phone [phone] Care Team Providers Care Retail Personal Banker Name Role Phone Melissa Cruz Chang FONSECA Primary Care Provider +1- [phone] Reason for Visit * Reason Onset Date Comments Order Request 08/22/2024 Encounter Details Date Type Department Care Team (Late st Contact Info) Description 08/22/2024 Telephone Wound Care, [facility] [address] [place], [place] [id number] Yuriy Hilario MD [address] [place] [address] Order Request Allergies Active Allergy Reactions Criticality [...] Next Due Pneumococcal Conjugate Vacci ne, 20-valent ([id number]) 12/04/2022 Pneumococcal Polysaccharide PPV23 (Pneumovax) 05/06/2011 Seasonal [...] No 03/10/2024 Does the household have a [facility] source of income? (Household - [...] Telephone Encounter - Veda Jacobson CMA - 08/22/2024 1:[address] Hilario, Patient is requesting a supply order I need an order indicating the dressing change for this patient that states to use Optifoam AG Gentle on wound beds - this is what she is requesting to be ordered from the supply company She is still coming into the office 3 times weekly for unna boot/dressing change, however this is for in between and weekends when foam falls off Order pended if agreeable documented in this encounter Plan of Treatment Upcoming Encounters Date Type Department Care Team (Latest Contact Info) Description 08/27/2024 10:30 AM EST Nurse Only Wound Care, [address] [place] [address] [facility], Nurse Wound Care [address] [place] [address] 08/27/2024 12:20 PM EST Office Visit [facility] [address] [place] [address] Melissa Cruz PA-C [address] [place] [address] 08/29/2024 10:30 AM EST Nurse Only Wound Care, [address] [address] [facility], Nurse Wound Care [address] [place] [address] 09/01/2024 11:00 AM EST Office Visit Wound Care, [address] [place] [address] Yuriy Hilario MD [address] [place] [address] 10/09/2024 10:08 AM EST Hospital Encounter OR [facility], Operating Room, [facility] [address] [place] [address] Bigg Wetzel MD [address] [place] [address] 10/09/2024 10:08 AM EST - 10/09/2024 11:09 AM EST Surgery OR [facility], Operating Room, [facility] - 4th Floor 400 [place] [address] Bigg Wetzel MD [address] [place] [address] COLONOSCOPY FLEXIBLE PROXIMAL DIAGNOSTIC 10/24/2024 10:00 AM EDT Office Visit Cardiology[address] [address] Darnell Boggs DO 400 [place] [address] Scheduled Procedures Name Priority Associated Diagnoses Date/Ti [...] this encounter Medical Devices Implanted Type Area Configuration Management Analyst Device Identifier Shelf Expiration Date Model / Serial / Lot Device Perm Cntrl [id number] - [id number] Implanted:Qty: 2 on 09/27/2015 by Sharda Ruiz, Corey Rucker MD at OR [facility] Uterus [employer] 05/03/2017 [id number] / / [id number] documented as of this encounter Visit Diagnoses Diagnosis Multiple open wounds of lower leg, unspecified laterality, subsequent encounter- Primary Lymphedema Other lymphedema Irritant contact dermatitis due to other body fluid Dermatitis Contact dermatitis and other eczema, due to unspecified cause Type 2 diabetes mellitus with hemoglobin A1c goal of less than 7.0% (HCC) Screening for colon cancer Special screening for malignant neoplasms, colon documented in this encounter Advance Directives * Full Code (Latest Code Status on File) Date Activated Date Inactivated Comments 07/10/2024 5:03 PM 07/21/2024 7:21 PM This order reflects the patients wishes and were consensually agreed upon. Question Answer Comments Discussion of Advance Direct genveieve occurred with: Not Discussed due to patient's [...] of Attor benoit? No Care Teams Retail Personal Banker Relationship Specialty Start Date End Date Melissa Cruz PA-C [address] [address] [place] [address] PCP - General Physician Funder 06/02/21 documented as of this encounter
--- OUTSIDE RECORDS SUMMARY | 2024-12-08 15:20 | External Medical Summary | Summary of Care ---
Author Name Unknown Organization [facility] Address [address] [place] [place] [address] Phone [phone] Care Team Providers Care It Program Engagement Director Name Role Phone Melissa Cruz [place] AGUILAC Primary Care Provider +1- [phone] Reason for Referral * Evaluate & Treat - Unlimited Visits (Within 10 days (routine)) - Pending Review Specialty Diagnoses / Procedures Referred By Phylicia zambrano Referred To Contact Wound Care Diagnoses Chronic ulcer of leg, limited to breakdown of skin, unspecified laterality (HCC) Yuriy Hilario MD [address] [facility] [place] [address] Phone: tel: fax: Referral ID Status Reason Start Date Expiration Date Visits Requested Visits Authorized [id number] Pending Review Specialty Services Required 08/25/[phone] Question Answer Referral Priority Within 10 days (routine) Where should this appointment be scheduled? [facility] Where is the wound? Knee and above Comments Assess for: Hx of wound healing problem; Seen at [facility] Wound Care; Patient requesting to be seen at a different wound care than [place]. Prefers going to [place]. Reason for Visit * Reason Onset Date Comments Advice 08/25/2024 Pt asking to be seen in [place] Encounter Details Date Type Department Care Team (Late st Contact Info) Description 08/25/2024 Telephone Access Center, [place] [address] [facility] *DO NOT REMOVE THIS DEPARTMENT* [place] [address] Services, Scheduling [address] [place] [address] Advice (Pt asking to be seen in [place]) Allergies Active Allergy Reactions Criticality Noted Date [...] Next Due Pneumococcal Conjugate Vacci ne, 20-valent ([id number]) 12/04/2022 Pneumococcal Polysaccharide PPV23 (Pneumovax) 05/06/2011 Seasonal [...] to hold off on scheduling at either [place] or [facility] at this time. She would like to continue the wound care at [facility] and will be in on 08/27/24 for her nurse visit. * Telephone Encounter - Yuriy Hilario MD - 08/25/2024 12:15 PM EST Sounds good. Will place referral. [facility] has a wound care office as well, should the patient not wishto travel as far. * Telephone Encounter - Brittney Patterson OSA - 08/25/2024 9:00 AM EST Patient is a patient of Dr. Hilario in Wound Care at [place]. She has some upcoming nurse visits at [place] [facility] but she was asking could you refer her the [place] office. She would like to be seen in [place]. documented in this encounter Plan of Treatment Upcoming Encounters Date Type Department Care Team (Latest Contact Info) Description 08/27/2024 10:30 AM EST Nurse Only Wound Care, [facility] [place] [address] [facility], Nurse Wound Care 400 [facility] [place] [address] 08/27/2024 12:20 PM EST Office Visit [facility] [address] [place] [address] Melissa Cruz PA-C [address] [place] [address] 08/29/2024 10:30 AM EST Nurse Only Wound Care, [facility] 400 [facility] [address] [facility], Nurse Wound Care 400 [facility] [address] 09/01/2024 11:00 AM EST Office Visit Wound Care, [facility] 400 [facility] [place] [address] Yuri[facility]ilar[facility] [address] 10/09/2024 10:08 AM EST Hospital Encounter OR [facility], Operating Room, [facility] - 4th Floor 400 [facility] [place] [address] Bigg Wetzel MD [address] [place] [address] 10/09/2024 10:08 AM EST - 10/09/2024 11:09 AM EST Surgery OR [facility], Operating Room, [facility] - 4th Floor 400 [facility] [place] [address] Bigg Wetzel MD [address] [place] [address] COLONOSCOPY FLEXIBLE PROXIMAL DIAGNOSTIC 10/24/2024 10:00 AM EDT [facility] 400 [facility] [place] [address] Darnell Boggs DO 400 [facility] [address] Scheduled Procedures Name Priority Associated Diagnoses Date/Ti [...] this encounter Medical Devices Implanted Type Area Operations [place] Device Identifier Shelf Expiration Date Model / Serial / Lot Device Perm Cntrl [id number] - [id number] Implanted:Qty: 2 on 09/27/2015 by Sharda Ruiz, Corey Rucker MD at OR [facility] Uter[employer] 05/03/2017 [id number] / / [id number] documented as of this encounter Visit Diagnoses [...] Power of Attor benoit? No Care Teams It Program Engagement Director Relationship Specialty Start Date End Date Melissa Cruz PA-C [address] [facility] [address] [facility] [place] [address] PCP - General Physician Admission Nurse 06/02/21 documented as of this encounter
--- OUTSIDE RECORDS SUMMARY | 2024-12-08 15:20 | External Medical Summary | Summary of Care ---
Author Name Unknown Organization [facility] Address [address] [facility] [place] [address] Phone [phone] Care Team Providers Care Call Center Associate Name Role Phone Melissa Cruz [place] AGUILAC Primary Care Provider +1- [phone] Reason for Referral * Evaluate & Treat - Unlimited Visits (Within 10 days (routine)) - Pending Review Specialty Diagnoses / Procedures Referred By Phylicia zambrano Referred To Contact Wound Care Diagnoses Chronic ulcer of leg, limited to breakdown of skin, unspecified laterality (HCC) Yuriy Hilario MD [address] [place] [address] Phone: tel: fax: Referral ID Status Reason Start Date Expiration Date Visits Requested Visits Authorized [id number] Pending Review Specialty Services Required 08/25/[phone] Question Answer Referral Priority Within 10 days (routine) Where should this appointment be scheduled? [facility] Where is the wound? Knee and above Comments Assess for: Hx of wound healing problem; Seen at [facility] Wound Care; Patient requesting to be seen at a different wound care than [place]. Prefers going to [place]. Reason for Visit * Reason Onset Date Comments Advice 08/25/2024 Pt asking to be seen in [place] Encounter Details Date Type Department Care Team (Late st Contact Info) Description 08/25/2024 Telephone Access Center, [place] [address] [facility] *DO NOT REMOVE THIS DEPARTMENT* [place] [address] Services, Scheduling [address] [place] [address] Advice (Pt asking to be seen in [place]) Allergies Active Allergy Reactions Criticality Noted Date [...] Next Due Pneumococcal Conjugate Vacci ne, 20-valent ([id number]) 12/04/2022 Pneumococcal Polysaccharide PPV23 (Pneumovax) 05/06/2011 Seasonal [...] PM EST Sounds good. Will place referral. [facility] has a wound care office as well, should the patient not wishto travel as far. * Telephone Encounter - Brittney Patterson OSA - 08/25/2024 9:00 AM EST Patient is a patient of Dr. Hilario in Wound Care at [place]. She has some upcoming nurse visits at [place] [facility] but she was asking could you refer her the [place] office. She would like to be seen in [place]. documented in this encounter Plan of Treatment Upcoming Encounters Date Type Department Care Team (Latest Contact Info) Description 08/27/2024 10:30 AM EST Nurse Only Wound Care, [address] [address] [facility], Nurse Wound Care [address] [place] [address] 08/27/2024 12:20 PM EST Office Visit [facility] [address] [place] [address] Melissa Cruz PA-C [address] [place] [address] 08/29/2024 10:30 AM EST Nurse Only Wound Care, [address] [place] [address] [facility], Nurse Wound Care [address] [place] [address] [place] [address] 09/01/2024 11:00 AM EST Office Visit Wound Care, [address] [place] [address] Yuriy Hilario MD [address] [place], [place] [address]n[place] [address] 10/09/2024 10:08 AM EST Hospital Encounter OR [facility], Operating Room, [facility] - 4th Floor [address] [place] [address] Bigg Wetzel MD [address] [place] [address] 10/09/2024 10:08 AM EST - 10/09/2024 11:09 AM EST Surgery OR [facility], Operating Room, [facility] - 4th Floor [address] [place] [address] Bigg eWtzel MD [address] [place] [address] COLONOSCOPY FLEXIBLE PROXIMAL DIAGNOSTIC 10/24/2024 10:00 AM EDT Office Visit [facility] [address] [place] [address] Darnell Boggs DO [address] [place] [address] Scheduled Procedures Name Priority Associated Diagnoses Date/Ti [...] this encounter Medical Devices Implanted Type Area Registered Nurse Fetal Device Identifier Shelf Expiration Date Model / Serial / Lot Device Perm Cntrl [id number] - [id number] Implanted:Qty: 2 on 09/27/2015 by Corey Robin Jr., MD at OR [facility] Uterus [employer] 05/03/2017 [id number] / / [id number] documented as of this encounter Visit Diagnoses [...] Power of Attor benoit? No Care Teams Call Center Associate Relationship Specialty Start Date End Date Melissa Cruz PA-C [address]2 [facility] [place] [address] PCP - General Physician Medical Oncologist 06/02/21 documented as of this encounter
--- OUTSIDE RECORDS SUMMARY | 2024-12-08 15:20 | External Medical Summary | Summary of Care ---
Author Name Unknown Organization [facility] Address [address] [place] [address] Phone [phone] Care Team Providers Care Rn New Graduate Name Role Phone Melissa Cruz PA-C Primary Care Provider +1- [phone] Reason for Visit * Reason Onset Date Comments Fax 08/08/2024 Encounter Details Date Type Department Care Team (Late st Contact Info) Description 08/08/2024 Telephone [facility] [address] [place] [address] Melissa Cruz PA-C [address] [place] [address] Fax Allergies Active Allergy Reactions Criticality Noted Date Comments Aspirin 01/27/2014 Increased bleeding documented as of this encounter (statuses as of 08/20/2024) Medications traZODone (DESYREL) 50 MG Tablet Take [...] as of this encounter (statuses as of 08/20/2024) Active Problems Problem Noted Date Diagnosed Date [...] as of this encounter (statuses as of 08/20/2024) Resolved Problems Problem Noted Date Diagnosed Date [...] as of this encounter (statuses as of 08/20/2024) Immunizations Name Administration Dates Next Due Pneumococcal Conjugate Vacci ne, 20-valent ([id number]) 12/04/2022 Pneumococcal Polysaccharide PPV23 (Pneumovax) 05/06/2011 Seasonal [...] Does the household have a [facility] source of income? (Household - for [...] encounter Miscellaneous Notes * Telephone Encounter - Jasmina Weinstein LPN - 08/20/2024 7:38 AM EST Completed form faxed with DME & office notes to CHRISTY Dubon at [facility]. Form sent to [facility]. * Telephone Encounter - Melissa Cruz PA-C - 08/18/2024 4:51 PM EST Completed. * Telephone Encounter - Christina Cuadra LPN - 08/18/2024 1:38 PM EST Received Form from fax today. Placed on provider desk to be filled out * Telephone Encounter - Latesha Sebastian OSA - 08/11/2024 1:32 PM EST Faxed last ov note and order for ramp to [employer] that was mentioned in another TE. * Telephone Encounter - Kacey Mendez OSA - 08/08/2024 12:19 PM EST Found a fax from [facility] about the ramp. I am not seeing a form to be completed with it. Not sure if there was an attachment to go with but nothing came through. Sending back what was faxed. * Telephone Encounter - Frida Brunson OSA - 08/08/2024 10:04 AM EST Received a call asking if fax was received by office. Name/Company sending fax: Arjun What fax is pertaining to: forms for Ramp Date(s) they sent request: 08/08/2024 Verified fax number they are sending to is correct (Y or N): yes Callback Number for the clinic to call to verified if fax was received: [phone] Please fax back to [employer] Fax number will be on cover sheet. documented in this encounter Plan of Treatment Upcoming Encounters Date Type Department Care Team (Latest Contact Info) Description 08/22/2024 10:30 AM EST Nurse Only Wound Care, [address] [address] [facility], Nurse Wound Care 400 [facility] [place] [address] 08/25/2024 10:30 AM EST Nurse Only Wound Care, [address] [place] [address] [facility], Nurse Wound Care [address] [place] [address] 08/27/2024 10:30 AM EST Nurse Only Wound Care, [address] [address] [facility], Nurse Wound Care [address] [place] [address] 08/27/2024 12:20 PM EST Office Visit [facility] [address] [place] [address] Melissa Cruz PA-C [address] [place] [address] 08/29/2024 10:30 AM EST Nurse Only Wound Care, [address] [address] [facility], Nurse Wound Care [address] [place] [address] 09/01/2024 11:00 AM EST Office Visit Wound Care, [address] [address] Yuriy Hilario MD 27 [place] [address] 10/09/2024 12:10 PM EST Hospital Encounter OR [facility], Operating Room, [facility] - 4th Floor [address] [place] [phone] Bigg Wetzel MD [address] [place] [address] 10/09/2024 12:10 PM EST - 10/09/2024 1:11 PM EST Surgery OR [facility], Operating Room, [facility] Floor [address] [place] [phone] Bigg Wetzel MD [address] [place] [address] COLONOSCOPY FLEXIBLE PROXIMAL DIAGNOSTIC 10/24/2024 10:00 AM EDT Office Visit [facility] 400 [place] [address] Darnell Boggs DO 400 [place] [address] Scheduled Procedures Name Priority Associated Diagnoses Date/Ti [...] this encounter Medical Devices Implanted Type Area Type Copy Examiner Device Identifier Shelf Expiration Date Model / Serial / Lot Device Perm Cntrl [id number] - [id number] Implanted:Qty: 2 on 09/27/2015 by Sharda Ruiz, Corey Rucker MD at OR [facility] Uterus [employer] 05/03/2017 [id number] / / [id number] documented as of this encounter Advance Directives [...] of Attor benoit? No Care Teams Rn New Graduate Relationship Specialty Start Date End Date Melissa Cruz PA-C [address] [facility] [address] [place] [address] PCP - General Physician Artificial Pearl Maker 06/02/21 documented as of this encounter
--- OUTSIDE RECORDS SUMMARY | 2024-12-08 15:20 | External Medical Summary | Summary of Care ---
Author Name Unknown Organization [facility] Address [address] [place] [address] Phone [phone] Care Team Providers Care Child Advocate Name Role Phone Melissa Cruz Jair FONSECA Primary Care Provider +1- [phone] Reason for Visit * Reason Comments Wound Care BLEPatient presents with no dressings to E - states they fell off 2 days agoUnna boots have slid to mid ankle Encounter Details Date Type Department Care Team (Late st Contact Info) Description 08/27/2024 10:30 AM EST Nurse Only Wound Care, [facility] [address] [place] [address] [facility], Nurse Wound Care 400 [place] [address] Wound Care (BLE/Patient presents with no d... [...] Next Due Pneumococcal Conjugate Vacci ne, 20-valent ([id number]) 12/04/2022 Pneumococcal Polysaccharide PPV23 (Pneumovax) 05/06/2011 Seasonal [...] this encounter Nursing Notes * Veda Jacobson, PHARMACY CARE COORDINATOR - 08/27/2024 11:27 AM EST Chief Complaint [...] or greater, please contact the [facility]. Please check your toes frequently. If they become blue, purple, pale, cool, numb, and/or tingling elevate your leg higher than your heart for one hour. If you have no relief of the symptoms, cut the entire wrap off and call the [facility]ound [facility], . Keep the wrap dry. If the wrap slides down or bunches at the ankle, call The [facility]. Elevate legs above heart for 30 minutes 2-3 times a day. documented in this encounter Plan of Treatment Upcoming Encounters Date Type Department Care Team (Latest Contact Info) Description 08/29/2024 10:30 AM EST Nurse Only Wound Care, [address] [address] [facility], Nurse Wound Care 400 [facility], [place] [address] 09/01/2024 11:00 AM EST Office Visit Wound Care, [address] [place] [address] Yuriy Hilario MD [address] [place] [address] 09/02/2024 10:30 AM EST Nurse Only Wound Care, [address] [place] [address] [facility], Nurse Wound Care [address] [place] [address] 09/04/2024 11:00 AM EST Office Visit [facility] [address] [place] [address] Melissa Cruz PA-C [address] [place] [address] 09/05/2024 10:30 AM EST Nurse Only Wound Care, [address] [place] [address] [facility], Nurse Wound Care [address] [place] [address], [place] [address] 09/09/2024 10:30 AM EST Nurse Only Wound Care, [address] [place] [address] [facility], Nurse Wound Care [address] [place] [address], [place] [address] 09/11/2024 10:30 AM EST Nurse Only Wound Care, [address] [place] [address] [facility], Nurse Wound Care [address] [place] [address], [place] [address] 09/12/2024 10:30 AM EST Nurse Only Wound Care, [address], [place] [address] [facility], Nurse Wound Care 400 [facility] [place] [address] 09/15/2024 10:30 AM EST Nurse Only Wound Care, [facility] [address] [place] [address] [facility], Nurse Wound Care 400 [facility] [place] [address] 09/16/2024 1:00 PM EST Office Visit Wound Care, [place] [address] [place] [address] Vinnie Blount MD [address] [place] [address] 10/09/2024 1:14 PM EST Hospital Encounter OR [facility], Operating Room, [facility] - 4th Floor 400 [facility] [place] [address] Bigg Wetzel MD [address] [place] [address] 10/09/2024 1:14 PM EST - 10/09/2024 2:15 PM EST Surgery OR [facility], Operating Room, [facility] - 4th Floor 400 [facility] [place] [address] Bigg Wetzel MD [address] [place] [address] COLONOSCOPY FLEXIBLE PROXIMAL DIAGNOSTIC 10/24/2024 10:00 AM EDT Office Visit Cardiology [place] 400 [facility] [place] [address] Darnell Boggs DO 400 [place] [address] Scheduled Procedures Name Priority Associated Diagnoses Date/Ti [...] this encounter Medical Devices Implanted Type Area Solutions Architect Device Identifier Shelf Expiration Date Model / Serial / Lot Device Perm Cntrl [id number] - [id number] Implanted:Qty: 2 on 09/27/2015 by Sharda Ruiz, Corey Rucker MD at OR [facility] Uterus [employer] 05/03/2017 [id number] / / [id number] documented as of this encounter Visit Diagnoses [...] Power of Attor benoit? No Care Teams Child Advocate Relationship Specialty Start Date End Date Melissa Cruz PA-C [address] [facility] [address] [place] [address] PCP - General Physician Head Of Mobile 06/02/21 documented as of this encounter
--- OUTSIDE RECORDS SUMMARY | 2024-12-08 15:20 | External Medical Summary | Summary of Care ---
Author Name Unknown Organization [facility] Address [address] [place] [address] Phone [phone] Care Team Providers Care Corrugated Fastener Driver Name Role Phone Melissa Cruz [place] FONSECA Primary Care Provider +1- [phone] Reason for Visit * Reason Onset Date Comments Order Request 08/22/2024 Encounter Details Date Type Department Care Team (Late st Contact Info) Description 08/22/2024 Telephone Wound Care, [facility] 400 [place], [place] [id number] Yuriy Hilario MD [address] [place] [address] Order Request Allergies Active Allergy Reactions [...] Next Due Pneumococcal Conjugate Vacci ne, 20-valent ([id number]) 12/04/2022 Pneumococcal Polysaccharide PPV23 (Pneumovax) 05/06/2011 Seasonal [...] No 03/10/2024 Does the household have a [facility] source of income? (Household - for ages [...] Telephone Encounter - Veda Jacobson CMA - 08/25/2024 8:34 AM EST PRISM order created and in Dr. Hilario's folder to be signed * Telephone Encounter - Veda Jacobson CMA [...] AM EST Nurse Only Wound Care, [address] [address] [facility], Nurse Wound Care [address] [place] [address] 08/27/2024 12:20 PM EST Office Visit [facility] [address] [place] [address] Melissa Cruz PA-C [address] [place] [address] 08/29/2024 10:30 AM EST Nurse Only Wound Care, [address] [address] [facility], Nurse Wound Care [address] [place] [address] 09/01/2024 11:00 AM EST Office Visit Wound Care, [address] [address] Yuriy Hilario MD [address] [place] [address] 10/09/2024 10:08 AM EST Hospital Encounter OR [facility], Operating Room, [facility] - 4th Floor [address] [place] [address], [place] [address] Bigg Wetzel MD [address] [place] [address] 10/09/2024 10:08 AM EST - 10/09/2024 11:09 AM EST Surgery OR [facility], Operating Room, [facility] - 4th Floor [address] [place] [address] [place] [address] Bigg Wetzel MD [address] [place] [address] COLONOSCOPY FLEXIBLE PROXIMAL DIAGNOSTIC 10/24/2024 10:00 AM EDT Office Visit Cardiology, [place] 400 [place] [address] Darnell Boggs DO [address] [place] [address] Scheduled Procedures Name Priority Associated Diagnoses Date/Ti [...] encounter Medical Devices Implanted Type Area Business Analytics Director Device Identifier Shelf Expiration Date Model / Serial / Lot Device Perm Cntrl [id number] - [id number] Implanted:Qty: 2 on 09/27/2015 by Sharda Ruiz, Corey Rucker MD at OR [facility] Uterus [employer] 05/03/2017 [id number] / / [id number] documented as of this encounter Visit Diagnoses Diagnosis Multiple open wounds of lower leg, unspecified laterality, subsequent encounter- Primary Lymphedema Other lymphedema Irritant contact dermatitis due to other body fluid Dermatitis Contact dermatitis and other eczema, due to unspecified cause Type 2 diabetes mellitus with hemoglobin A1c goal of less than 7.0% ([facility]) Screening for colon cancer Special screening for [...] Power of Attor benoit? No Care Teams Corrugated Fastener Driver Relationship Specialty Start Date End Date Melissa Cruz PA-C [address] [place] [address] [place] [address] PCP - General Physician Telegraph Mechanic 06/02/21 documented as of this encounter
--- OUTSIDE RECORDS SUMMARY | 2024-12-08 15:20 | External Medical Summary | Summary of Care ---
Author Name Unknown Organization [facility] Address [address] [place] [address] Phone [phone] Care Team Providers Care Strapping Machine Operator Name Role Phone Melissa Cruz Chang FONSECA Primary Care Provider +1- [phone] Reason for Visit * Reason Onset Date Comments Order Request 08/22/2024 Encounter Details Date Type Department Care Team (Late st Contact Info) Description 08/22/2024 Telephone Wound Care, [facility] [address] [place], [place] [id number] Yuriy Hilario MD [address] [place] [address] Order Request Allergies Active Allergy Reactions [...] Next Due Pneumococcal Conjugate Vacci ne, 20-valent ([id number]) 12/04/2022 Pneumococcal Polysaccharide PPV23 (Pneumovax) 05/06/2011 Seasonal [...] 10:30 AM EST Nurse Only Wound Care, [address] [place] [address] [facility], Nurse Wound Care [address] [place] [address] 08/27/2024 12:20 PM EST Office Visit [facility] [address] [place] [address] Melissa Cruz PA-C [address] [place] [address] 08/29/2024 10:30 AM EST Nurse Only Wound Care, [address] [address] [facility], Nurse Wound Care [address] [place] [address] 09/01/2024 11:00 AM EST Office Visit Wound Care, [address] [place] [address] Yuriy Hilario MD [address] [place] [address] 10/09/2024 10:08 AM EST Hospital Encounter OR [facility], Operating Room, [facility] Floor [address] [place] [address] Bigg Wetzel MD [address] [place] [address] 10/09/2024 10:08 AM EST - 10/09/2024 11:09 AM EST Surgery OR [facility], Operating Room, [facility] - 4th Floor 400 [facility] [place] [address] Bigg Wetzel MD [address] [place] [address] COLONOSCOPY FLEXIBLE PROXIMAL DIAGNOSTIC 10/24/2024 10:00 AM EDT Office Visit Cardiology[address] [address] Darnell Boggs DO 400 [place] [address] Scheduled Procedures Name Priority Associated Diagnoses Date/Ti [...] encounter Medical Devices Implanted Type Area Manager Radiation Device Identifier Shelf Expiration Date Model / Serial / Lot Device Perm Cntrl [id number] - [id number] Implanted:Qty: 2 on 09/27/2015 by Sharda Ruiz, Corey Rucker MD at OR [facility] Uterus [employer] 05/03/2017 [id number] / / [id number] documented as of this encounter Visit Diagnoses [...] Power of Attor benoit? No Care Teams Strapping Machine Operator Relationship Specialty Start Date End Date Melissa Cruz PA-C [address] 838775 [place] [address] PCP - General Physician Bearing Inspector 06/02/21 documented as of this encounter
--- OUTSIDE RECORDS SUMMARY | 2024-12-08 15:21 | External Medical Summary | Summary of Care ---
Author Name Unknown Organization [facility] Address [address] [place] [address] Phone [phone] Care Team Providers Care Stratigrapher Name Role Phone Melissa Cruz Chang FONSECA Primary Care Provider +1- [phone] Reason for Visit * Reason Comments Wound Care B/LLE Encounter Details Date Type Department Care Team ([facility] st Contact Info) Description 08/19/2024 11:30 AM EST Nurse Only Wound Care, [facility] [address] [place] [address] [facility], Nurse Wound Care [address] [place] [address] Wound Care (B/LLE ) Allergies Active Allergy Reactions Criticality Noted Date Comments Aspirin 01/27/2014 Increased bleeding documented as of this encounter (statuses as of 08/19/2024) Medications traZODone (DESYREL) 50 MG Tablet Take [...] as of this encounter (statuses as of 08/19/2024) Active Problems Problem Noted Date Diagnosed Date [...] as of this encounter (statuses as of 08/19/2024) Resolved Problems Problem Noted Date Diagnosed Date [...] sterilization 04/16/2015 09/15/2016 Abnormal uterine bleeding 04/16/2015 02 /05/2017 Controlled substance agreement signed 03/15/2015 04/28/2016 Edema [...] as of this encounter (statuses as of 08/19/2024) Immunizations Name Administration Dates Next Due Pneumococcal Conjugate Vacci ne, 20-valent ([id number]) 12/04/2022 Pneumococcal Polysaccharide PPV23 (Pneumovax) 05/06/2011 Seasonal [...] Patient Instructions * Patient Instructions* Veda Jacobson, DIGITAL ASSET COORDINATOR - 08/19/2024 3:30 PM EST Discharge Instructions: Unna Boot [...] or greater, please contact the [facility]. Please check your toes frequently. If they become blue, purple, pale, cool, numb, and/or tingling elevate your leg higher than your heart for one hour. If you have no relief of the symptoms, cut the entire wrap off and call the [facility], . Keep the wrap dry. If the wrap slides down or bunches at the ankle, call [facility]. Elevate legs above heart for 30 minutes 2-3 times a day. documented in this encounter Nursing Notes * Veda Jacobson CMA - 08/19/2024 3:22 PM EST Chief Complaint Patient presents with [...] personnel. Patient voiced full comprehension of instructions. Applied opticel ag foam cut in 1/2 to each heel Vaseline to wound beds, covered each wound with Opticel AG Foam, wrapped with conform to secure pads Kerlix buttressed in RLE thigh intertriginous area and secured with mircopore tape ABD Pads applied to anterior and posterior ankle to help shape leg for unna Unna z applied to B/LLE from base of toes to just below the knee Surgilast size 5 applied Socks and sneakers applied Compression education reviewed with patient and she voiced her understanding - advised to call withany concerns Compression Therapy Education: Any questions, redness or swelling around the wound and development of a temperature of 101F or greater, please contact the [facility]. Please check your toes frequently. If they become blue, purple, pale, cool, numb, and/or tingling elevate your leg higher than your heart for one hour. If you have no relief of the symptoms, cut the entire wrap off and call the [facility], . Keep the wrap dry. If the wrap slides down or bunches at the ankle, call [facility]. Elevate legs above heart for 30 minutes [...] and I pushed patient in her wheelchair documented in this encounter Plan of Treatment Upcoming Encounters Date Type Department Care Team (Latest Contact Info) Description 08/22/2024 10:30 AM EST Nurse Only Wound Care, [address] [address] [facility], Nurse Wound Care [address] [place] [address] [place] [address] 08/25/2024 10:30 AM EST Nurse Only Wound Care, [address] [place] [address] [facility], Nurse Wound Care [address] [place], [place] [address]S[place] [address] 08/27/2024 10:30 AM EST Nurse Only Wound Care, [address] [address] [facility], Nurse Wound Care [address] [place] [address] 08/27/2024 12:20 PM EST Office Visit [facility] [address] [place] [address] Melissa Cruz PA-C [address] [place] [address] 08/29/2024 10:30 AM EST Nurse Only Wound Care, [address] [address] [facility], Nurse Wound Care [address] [place] [address] 09/01/2024 11:00 AM EST Office Visit Wound Care, [address] [address] Yuriy Hilario MD 27 [place] [address] 10/09/2024 12:10 PM EST Hospital Encounter OR [facility], Operating Room, [facility] - 4th Floor [address] [place] [phone] Bigg Wetzel MD [address] [place] [address] 10/09/2024 12:10 PM EST - 10/09/2024 1:11 PM EST Surgery OR [facility], Operating Room, [facility] - 4th Floor [address] [place] [address] Bigg Wetzel MD [address] [place] [address] COLONOSCOPY FLEXIBLE PROXIMAL DIAGNOSTIC 10/24/2024 10:00 AM EDT Office Visit Cardiology[address] [place] [address] Darnell Boggs DO 400 [place] [address] Scheduled Procedures Name Priority Associated Diagnoses Date/Ti [...] this encounter Medical Devices Implanted Type Area Management Recruiter Device Identifier Shelf Expiration Date Model / Serial / Lot Device Perm Cntrl [id number] - [id number] Implanted:Qty: 2 on 09/27/2015 by Sharda Ruiz, Corey Rucker MD at OR [facility] Uterus [employer] 05/03/2017 [id number] / / [id number] documented as of this encounter Visit Diagnoses [...] Power of Attor benoit? No Care Teams Stratigrapher Relationship Specialty Start Date End Date Melissa Cruz, AYLAC 4752 [facility] [place] [address] PCP - General Physician Dry Room Operator 06/02/21 documented as of this encounter
--- OUTSIDE RECORDS SUMMARY | 2024-12-08 15:21 | External Medical Summary | Summary of Care ---
Author Name Unknown Organization [facility] Address [address] [place] [address] Phone [phone] Care Team Providers Care Hospice Volunteer Coordinator Name Role Phone Melissa Cruz PA-C Primary Care Provider +1- [phone] Reason for Visit * Reason Onset Date Comments Fax 08/08/2024 Encounter Details Date Type Department Care Team (Late st Contact Info) Description 08/08/[address] [facility] [address] [place] [address] Melissa Cruz PA-C [address] [place] [address] Fax Allergies Active Allergy Reactions Criticality Noted Date Comments Aspirin 01/27/2014 Increased bleeding documented as of this encounter (statuses as of 08/18/2024) Medications traZODone (DESYREL) 50 MG Tablet Take [...] as of this encounter (statuses as of 08/18/2024) Active Problems Problem Noted Date Diagnosed Date [...] as of this encounter (statuses as of 08/18/2024) Resolved Problems Problem Noted Date Diagnosed Date [...] as of this encounter (statuses as of 08/18/2024) Immunizations Name Administration Dates Next Due Pneumococcal Conjugate Vacci ne, 20-valent ([id number]) 12/04/2022 Pneumococcal Polysaccharide PPV23 (Pneumovax) 05/06/2011 Seasonal [...] No 03/10/2024 Does the household have a [facility] source [facility] income? (Household - for [...] 12:19 PM EST Found a fax from [facility] about the ramp. I am not seeing [...] call to verified if fax was received: [phone] Please fax back to [employer] Fax number will be on cover sheet. documented in this encounter Plan of Treatment Upcoming Encounters Date Type Department Care Team (Latest Contact Info) Description 08/19/2024 11:30 AM EST Nurse Only Wound Care, [address] [address] [facility], Nurse Wound Care [address] [place] [address] 08/20/2024 12:20 PM EST Office Visit [facility] [address] [place] [address] Melissa Cruz PA-C [address] [place] [address] 08/22/2024 10:30 AM EST Nurse Only Wound Care, [address] [place] [address] [facility], Nurse Wound Care [address] [place] [address] 08/25/2024 10:30 AM EST Nurse Only Wound Care, [address] [place] [address] [facility], Nurse Wound Care [address] [place] [address] 08/27/2024 10:30 AM EST Nurse Only Wound Care, [address] [address] [facility], Nurse Wound Care [address] [place] [address] 08/29/2024 10:30 AM EST Nurse Only Wound Care, [address] [address] [facility], Nurse Wound Care [address] [place] [address] 09/01/2024 11:00 AM EST Office Visit Wound Care, [address] [address] Yuriy Hilario MD [address] [place] [address] 10/09/2024 12:10 PM EST Hospital Encounter OR [facility], Operating Room, [facility] - [address] [place] [address] [place] [address] Bigg Wetzel MD [address] [place] [address] 10/09/2024 12:10 PM EST - 10/09/2024 1:11 PM EST Surgery OR [facility], Operating Room, [facility] - [address] [place] [address] [place] [address] Bigg Wetzel MD [address] [place] [address] COLONOSCOPY FLEXIBLE PROXIMAL DIAGNOSTIC 10/24/2024 10:00 AM EDT Office Visit [address] [address] Darnell Boggs DO 400 [place] [address] Scheduled Procedures Name Priority Associated Diagnoses Date/Ti [...] this encounter Medical Devices Implanted Type Area Coremaker Helper Device Identifier Shelf Expiration Date Model / Serial / Lot Device Perm Cntrl [id number] - [id number] Implanted:Qty: 2 on 09/27/2015 by Sharda Ruiz, Corey Rucker MD at OR [facility] Uterus [employer] 05/03/2017 [id number] / / [id number] documented as of this encounter Advance Directives [...] Power of Attor benoit? No Care Teams Hospice Volunteer Coordinator Relationship Specialty Start Date End Date Melissa Cruz PA-C [address] [facility] [address] [place] [address] PCP - General Physician Van Driver 06/02/21 documented as of this encounter
--- OUTSIDE RECORDS SUMMARY | 2024-12-08 15:21 | External Medical Summary | Summary of Care ---
Author Name Unknown Organization [facility] Address [address] [place] [address] Phone [phone] Care Team Providers Care Editorial Clerk Name Role Phone Melissa Cruz PA-C Primary Care Provider +1- [phone] Reason for Visit * Reason Onset Date Comments Med Request 08/18/2024 Encounter Details Date Type Department Care Team (Late st Contact Info) Description 08/18/2024 Telephone [facility] [address] [place] [address] Melissa Cruz PA-C [address] [place] [address] Med Request (/) Allergies Active Allergy Reactions Criticality Noted Date [...] Next Due Pneumococcal Conjugate Vacci ne, 20-valent ([id number]) 12/04/2022 Pneumococcal Polysaccharide PPV23 (Pneumovax) 05/06/2011 Seasonal [...] No 03/10/2024 Does the household have a [facility] source [facility] income? (Household - [...] encounter Miscellaneous Notes * Telephone Encounter - Cass Atwood CPhT - 08/18/2024 11:37 AM EST Pt calling to request Pregablin. Informed pt that RX is available at their pharmacy. Pt verbalized understanding and stated they will check with their pharmacy regarding this medication. Thank you, Cass Atwood CPhT Screed Person [facility] 08/18/2024,11:40 AM documented in this encounter Plan of Treatment Upcoming Encounters Date Type Department Care Team (Latest Contact Info) Description 08/18/2024 1:30 PM EST Nurse Only Wound Care, [address] [address] [facility], Nurse Wound Care [address] [place], [place] [address] [address] 08/19/2024 11:30 AM EST Nurse Only Wound Care, [address], [place] [address] [facility], Nurse Wound Care [address] [place] [address] 08/20/2024 12:20 PM EST Office Visit [facility] [address] [place] [address] Melissa Cruz PA-C [address] [place] [address] 08/22/2024 10:30 AM EST Nurse Only Wound Care, [address], [place] [address] [facility], Nurse Wound Care [address] [place] [address], [place] [address] 08/25/2024 10:30 AM EST Nurse Only Wound Care, [address], [place] [address] [facility], Nurse Wound Care [address] [place] [address], [place] [address] 08/27/2024 10:30 AM EST Nurse Only Wound Care, [address] [place] [address] [facility], Nurse Wound Care [address] [place] [address], [place] [address] 08/29/2024 10:30 AM EST Nurse Only Wound Care, [address], [place] [address] [facility], Nurse Wound Care [address] [place] [address], [place] [address] 09/01/2024 11:00 AM EST Office Visit Wound Care, [address], [place] [address] Yuri[place] [address] 10/09/2024 12:10 PM EST Hospital Encounter OR [facility], Operating Room, [facility] - 4th Floor [address] [place] [address] Bigg Wetzel MD [address] [place] [address] 10/09/2024 12:10 PM EST - 10/09/2024 1:11 PM EST Surgery OR [facility], Operating Room, [facility] - 4th Floor [address] [place] [address] Bigg Wetzel MD [address] [place] [address] COLONOSCOPY FLEXIBLE PROXIMAL DIAGNOSTIC 10/24/2024 10:00 AM EDT Office Visit Cardiology, [place] [address] [place] [address] Darnell Boggs DO [address] [place] [address] [place] [address] Scheduled Procedures Name Priority Associated Diagnoses Date/Ti [...] this encounter Medical Devices Implanted Type Area Filter Press Pumper Device Identifier Shelf Expiration Date Model / Serial / Lot Device Perm Cntrl [id number] - [id number] Implanted:Qty: 2 on 09/27/2015 by Sharda Ruiz, Corey Rucker MD at OR [facility] Uterus [employer] 05/03/2017 [id number] / / [id number] documented as of this encounter Advance Directives [...] Power of Attor benoit? No Care Teams Editorial Clerk Relationship Specialty Start Date End Date Melissa Cruz PA-C [address] [address] [place] [address] PCP - General Physician Telegraph Printer Mechanic 06/02/21 documented as of this encounter
--- OUTSIDE RECORDS SUMMARY | 2024-12-08 15:21 | External Medical Summary | Summary of Care ---
Author Name Unknown Organization [facility] Address [address] [place] [address] Phone [phone] Care Team Providers Care Groundman/Lineman Name Role Phone Melissa Cruz PA-C Primary Care Provider +1- [phone] Reason for Visit * Reason Onset Date Comments Fax 08/08/2024 Encounter Details Date Type Department Care Team (Late st Contact Info) Description 08/08/[address] [facility] [address] [place] [address] Melissa Cruz PA-C [address] [place] [address] Fax Allergies Active Allergy Reactions Criticality Noted Date Comments Aspirin 01/27/2014 Increased bleeding documented as of this encounter (statuses as of 08/11/2024) Medications traZODone (DESYREL) 50 MG Tablet Take [...] as of this encounter (statuses as of 08/11/2024) Active Problems Problem Noted Date Diagnosed Date [...] as of this encounter (statuses as of 08/11/2024) Resolved Problems Problem Noted Date Diagnosed Date [...] as of this encounter (statuses as of 08/11/2024) Immunizations Name Administration Dates Next Due Pneumococcal Conjugate Vacci ne, 20-valent ([id number]) 12/04/2022 Pneumococcal Polysaccharide PPV23 (Pneumovax) 05/06/2011 Seasonal [...] No 03/10/2024 Does the household have a [facility] source of income? (Household - for [...] 12:19 PM EST Found a fax from [facility] about the ramp. I am not [...] call to verified if fax was received: [phone] Please fax back to [employer] Fax number will be on cover sheet. documented in this encounter Plan of Treatment Upcoming Encounters Date Type Department Care Team (Latest Contact Info) Description 08/18/2024 11:20 AM EST Nurse Only Wound Care, [address] [address] [facility], Nurse Wound Care [address] [place] [address] 08/19/2024 11:30 AM EST Nurse Only Wound Care, [address] [place] [address] [facility], Nurse Wound Care [address] [place] [address] 08/22/2024 10:30 AM EST Nurse Only Wound Care, [address] [place] [address] [facility], Nurse Wound Care [address] [place] [address], [place] [address] 08/25/2024 10:30 AM EST Nurse Only Wound Care, [address] [place] [address] [facility], Nurse Wound Care [address] [place] [address], [place] [address] 08/27/2024 10:30 AM EST Nurse Only Wound Care, [address] [place] [address] [facility], Nurse Wound Care [address] [place] [address], [place] [address] 08/29/2024 10:30 AM EST Nurse Only Wound Care, [address] [place] [address] [facility], Nurse Wound Care 400 [facility] [place] [address] 09/01/2024 11:00 AM EST Office Visit Wound Care, [facility] 400 [facility] [place] [address] Yuriy Hilario MD [address] [place] [address] 10/09/2024 12:10 PM EST Hospital Encounter OR [facility], Operating Room, [facility] - 4th Floor 400 [facility] [place] [address] Bigg Wetzel MD [address] [place] [address] 10/09/2024 12:10 PM EST - 10/09/2024 1:11 PM EST Surgery OR [facility], Operating Room, [facility] - 4th Floor [address] [place] [address] Bigg Wetzel MD [address] [place] [address] COLONOSCOPY FLEXIBLE PROXIMAL DIAGNOSTIC 10/24/2024 10:00 AM EDT Office Visit Cardiology, [place] [address] [place] [address] Darnell Boggs DO 400 [facility] [place] [address] Scheduled Procedures Name Priority Associated Diagnoses Date/Ti [...] encounter Medical Devices Implanted Type Area Business Law Instructor Device Identifier Shelf Expiration Date Model / Serial / Lot Device Perm Cntrl [id number] - [id number] Implanted:Qty: 2 on 09/27/2015 by Sharda Ruiz, Corey Rucker MD at OR [facility] Uterus [employer] 05/03/2017 [id number] / / [id number] documented as of this encounter Advance Directives [...] Power of Attor benoit? No Care Teams Groundman/Lineman Relationship Specialty Start Date End Date Melissa Cruz PA-C [address] [address] [place] [address] PCP - General Physician Jitterbug Operator 06/02/21 documented as of this encounter
--- OUTSIDE RECORDS SUMMARY | 2024-12-08 15:21 | External Medical Summary | Summary of Care ---
Author Name Unknown Organization [facility] Address [address] [place] [address] Phone [phone] Care Team Providers Care Copy And Print Associate Name Role Phone Melissa Cruz Chang AGUILAC Primary Care Provider +1- [phone] Reason for Visit * Reason Comments Wound Care B/LLE Encounter Details Date Type Department Care Team ([facility] st Contact Info) Description 08/18/2024 1:30 PM EST Nurse Only Wound Care, [facility] [address] [place] [address] [facility], Nurse Wound Care [address] [place] [address] Wound Care (B/LLE/) Allergies Active Allergy Reactions Criticality Noted Date [...] Next Due Pneumococcal Conjugate Vacci ne, 20-valent ([id number]) 12/04/2022 Pneumococcal Polysaccharide PPV23 (Pneumovax) 05/06/2011 Seasonal [...] * Patient Instructions* Veda Jacobson, ALPESH - 08/18/2024 3:33 PM EST Compression Therapy Education: Any questions, redness or swelling around the wound and development of a temperature of 101F or greater, please contact the [facility]. Please check your toes frequently. If they become blue, purple, pale, cool, numb, and/or tingling elevate your leg higher than your heart for one hour. If you have no relief of the symptoms, cut the entire wrap off and call the [facility], . Keep the wrap dry. If the wrap slides down or bunches at the ankle, call [facility]. Elevate legs above heart for 30 minutes [...] Nursing Notes * Veda Jacobson CMA - 08/18/2024 3:23 PM EST Treatment done as ordered by Dr. Sulaiman Vaseline to wound beds, covered with dry 4x4 gauze pads, then ABD padding at ankles, folds of knees, secured with Kerlix. Optifoam AG Gentle cut in half and 1/2 applied to each heel as per patient's specific request. Unna Z applied from base of toes to just below the knee. Surgilast size 5 applied Socks and sneakers applied Compression education reviewed with patient and she voiced her understanding Compression Therapy Education: Any questions, redness or swelling around the wound and development of a temperature of 101F or greater, please contact the [facility]. Please check your toes frequently. If they become blue, purple, pale, cool, numb, and/or tingling elevate your leg higher than your heart for one hour. If you have no relief of the symptoms, cut the entire wrap off and call the [facility], . Keep the wrap dry. If the wrap slides down or bunches at the ankle, call [facility]. Elevate legs above heart for 30 minutes 2-3 times a day. * Veda Jacobson CMA - 08/18/2024 3:19 PM EST Images from the original note were not included. Chief Complaint Patient presents with Wound Care B/Veda Charles Dr Mica Jimenez is here in the office for dressing change She was discharged from [facility] on , currently on Zyvox She was told not to use unna boots or any type of compression because she did not have YELITZA’s done She currently has Vaseline on her wounds and then covered by Optifoam AG gentle, ABDS and Kerkix Can I get orders from you on how to proceed? Narinder, Veda 5 days left Sent: 08/18/24 1:53PM Yuriy Hilario, same orders as before. We've been using Unna boots without signs of ischemia for months now. 5 days left Sent: 08/18/24 1:56PM Yuriy Hilario What extension are you at? 5 days left Sent: 08/18/24 1:56PM Veda Jacobson [id number] 5 days left Sent: 08/18/24 1:58PM Veda Jacobson I relayed the message to Mica. She was totally fine with keeping the unna boots and treatment the same after I explained the pulses/blood flow to her. She is asking in place of putting dry 4x4 gauze over Vaseline treated wound beds if you would allow the optifoam ag gentle? I did not do that today and advised patient that I would ask for your thoughts on the foam. She is scheduled to return tomorrow 5 days left Sent: 08/18/24 3:06PM Yuriy Hilario Her request is fine 5 days left Sent: 08/18/24 3:07PM Veda Jacobson Ok thanks for your help 5 days left Sent: 08/18/24 3:07PM [employer] Patient was instructed to not get up on the exam table/exam chair until directed and assisted by their provider; patient is to remain seated in the chair/ wheelchair/ exam table/ exam chair for fall prevention and safety reasons. Patient is aware to have assistance to step down off exam table/exam chair with personnel. Patient voiced full comprehension of instructions. Patient presents without dressings today and only optifoam ag gentle covering RLE medial, anterior and proximal wounds Foam removed Wounds then legs and feet washed with soap and water and towel dried. Patient tolerated well and denies pain at this time documented in this encounter Plan of Treatment Upcoming Encounters Date Type Department Care Team (Latest Contact Info) Description 08/19/2024 11:30 AM EST Nurse Only Wound Care, [facility] [address] [facility], Nurse Wound Care 400 [facility] [place] [address] 08/20/2024 12:20 PM EST Office Visit [facility] [address] [place] [address] Melissa Cruz PA-C [address] [place] [address] 08/22/2024 10:30 AM EST Nurse Only Wound Care, [address] [place] [address] [facility], Nurse Wound Care [address] [place] [address] 08/25/2024 10:30 AM EST Nurse Only Wound Care, [address] [place] [address] [facility], Nurse Wound Care [address] [place] [address] 08/27/2024 10:30 AM EST Nurse Only Wound Care, [address] [place] [address] [facility], Nurse Wound Care [address] [place] [address] 08/29/2024 10:30 AM EST Nurse Only Wound Care, [address] [place] [address] [facility], Nurse Wound Care [address] [place] [address], [place] [address] 09/01/2024 11:00 AM EST Office Visit Wound Care, [address] [place] [address] Yuriy Hilario MD [address] [place] [address] 10/09/2024 12:10 PM EST Hospital Encounter OR [facility], Operating Room, [facility] - 4th Floor [address] [place] [address], [place] [address] Bigg Wetzel MD [address] [place] [address] 10/09/2024 12:10 PM EST - 10/09/2024 1:11 PM EST Surgery OR [facility], Operating Room, [facility] - 4th Floor [address] [place] [address], [place] [address] Bigg Wetzel MD [address] [place] [address] COLONOSCOPY FLEXIBLE PROXIMAL DIAGNOSTIC 10/24/2024 10:00 AM EDT Office Visit Cardiology, [place] [address] [place] [address] Darnell Boggs DO [address] [place] [address] Scheduled Procedures Name Priority Associated Diagnoses Date/Ti [...] encounter Medical Devices Implanted Type Area Supervisor Elementary Education Device Identifier Shelf Expiration Date Model / Serial / Lot Device Perm Cntrl [id number] - [id number] Implanted:Qty: 2 on 09/27/2015 by Sharda Ruiz, Corey Rucker MD at OR [facility] Uterus [employer] 05/03/2017 [id number] / / [id number] documented as of this encounter Visit Diagnoses [...] Power of Attor benoit? No Care Teams Copy And Print Associate Relationship Specialty Start Date End Date Melissa Cruz PA-C [address] [facility] [place] [address] PCP - General Physician Primary Care Md 06/02/21 documented as of this encounter
--- OUTSIDE RECORDS SUMMARY | 2024-12-08 15:21 | External Medical Summary | Summary of Care ---
Author Name Unknown Organization [facility] Address [address] [place] [address] Phone [phone] Care Team Providers Care Showplace Manager Name Role Phone Melissa Cruz Chang FONSECA Primary Care Provider +1- [phone] Reason for Visit * Reason Onset Date Comments Hospital Follow-Up 08/14/2024 NEERAJ Encounter Details Date Type Department Care Team ([facility] st Contact Info) Description 08/14/2024 Telephone Ancillary, [place] [address] [place] [address] Avelina Garcia, RN Hospital Follow-Up ([facility]ERAJ) Allergies Active Allergy Reactions Criticality Noted Date Comments Aspirin 01/27/2014 Increased bleeding documented as of this encounter (statuses as of 08/15/2024) Medications traZODone (DESYREL) 50 MG Tablet Take [...] Anxiety. 4 Active Vitamin D3 50 MCG (1999) Oral CapsuleIndications :Vitamin D deficiency TAKE 1 CAPSULE BY MOUTH EVERY DAY IN THE MORNING 90 Capsule 5 Active Montelukast Sodium 10 MG Oral Tablet (Singulair)Indicat ions:Mild persistent asthma without complication Take 1 Tablet by mouth at bedtime. 90 Tablet 3 5 Active documented as of this encounter (statuses as of 08/15/2024) Active Problems Problem Noted Date Diagnosed Date [...] as of this encounter (statuses as of 08/15/2024) Resolved Problems Problem Noted Date Diagnosed Date [...] as of this encounter (statuses as of 08/15/2024) Immunizations Name Administration Dates Next Due Pneumococcal Conjugate Vacci ne, 20-valent ([id number]) 12/04/2022 Pneumococcal Polysaccharide PPV23 (Pneumovax) 05/06/2011 Seasonal [...] encounter Miscellaneous Notes * Telephone Encounter - Isha Nolen RN - 08/15/2024 8:27 AM EST Transitions of Care Note Reason for Referral:Recent Admission Phone visit for follow up: inpatient hospitalization Admitted to: [facility] , Date: 08/09/24 Discharged to: home, Date: 08/13/24 Diagnosis driving hospitalization:cellulitis of leg Attempted Phone Call Second Attempt Call Outcome Left Voicemail/Message * Telephone Encounter - Avelina Garcia RN - 08/14/2024 1:15 PM EST Transitions of Care Note Reason for Referral:Recent Admission Phone visit for follow up: inpatient hospitalization Admitted to: [facility] , Date: 08/09/24 Discharged to: home, Date: 08/13/24 Diagnosis driving hospitalization:cellulitis of leg Telephone call made to patients number. No answer. Message left on machine for patient to return call. Attempted Phone Call First Attempt Call Outcome Left Voicemail/Message Avelina Garcia RN documented in this encounter Plan of Treatment Upcoming Encounters Date Type Department Care Team (Latest Contact Info) Description 08/18/2024 1:30 PM EST Nurse Only Wound Care, [address] [place] [address] [facility], Nurse Wound Care [address] [place] [address] [place] [address] 08/19/2024 11:30 AM EST Nurse Only Wound Care, [address] [place] [address] [facility], Nurse Wound Care [address] [place] [address] 08/20/2024 12:20 PM EST Office Visit [facility] [address] [place] [address] Melissa Cruz PA-C [address] [place] [address] 08/22/2024 10:30 AM EST Nurse Only Wound Care, [address] [address] [facility], Nurse Wound Care [address] [place] [address] [place] [address] 08/25/2024 10:30 AM EST Nurse Only Wound Care, [address] [address] [facility], Nurse Wound Care [address] [place], [place] [address] [address] 08/27/2024 10:30 AM EST Nurse Only Wound Care, [address] [address] [facility], Nurse Wound Care [address] [place], [place] [address] [address] 08/29/2024 10:30 AM EST Nurse Only Wound Care, [address] [address] [facility], Nurse Wound Care [address] [place] [address] 09/01/2024 11:00 AM EST Office Visit Wound Care, [facility] [address] [facility] [place] [address] Yuriy Hilario MD [address] [place] [address] 10/09/2024 12:10 PM EST Hospital Encounter OR [facility], Operating Room, [facility] - 4th Floor [address] [facility] [place] [address] Bigg Wetzel MD [address] [place] [address] 10/09/2024 12:10 PM EST - 10/09/2024 1:11 PM EST Surgery OR [facility], Operating Room, [facility] - 4th Floor [address] [facility] [place] [address] Bigg Wetzel MD [address] [place] [address] COLONOSCOPY FLEXIBLE PROXIMAL DIAGNOSTIC 10/24/2024 10:00 AM EDT [facility] [place] [address] Darnell Boggs DO [address] [facility] [place] [address] Scheduled Procedures Name Priority Associated Diagnoses Date/Ti [...] this encounter Medical Devices Implanted Type Area Account Manager B2B Device Identifier Shelf Expiration Date Model / Serial / Lot Device Perm Cntrl [id number] - [id number] Implanted:Qty: 2 on 09/27/2015 by Sharda Ruiz, Corey Rucker MD at OR [facility] Uterus [employer] 05/03/2017 [id number] / / [id number] documented as of this encounter Advance Directives [...] Power of Attor benoit? No Care Teams Showplace Manager Relationship Specialty Start Date End Date Melissa Cruz PA-C [address] [facility] [address] [place] [address] PCP - General Physician Excellence Leader 06/02/21 documented as of this encounter
--- OUTSIDE RECORDS SUMMARY | 2024-12-08 15:21 | External Medical Summary | Summary of Care ---
Author Name Unknown Organization [facility] Address [address] [place] [address] Phone [phone] Care Team Providers Care Camp Cook Name Role Phone Melissa Cruz PA-C Primary Care Provider +1- [phone] Reason for Visit * Reason Onset Date Comments Fax 08/08/2024 Encounter Details Date Type Department Care Team (Late st Contact Info) Description 08/08/2024 Telephone [facility] [address] [place] [address] Melissa Cruz PA-C [address] [place] [address] Fax Allergies Active Allergy [...] Next Due Pneumococcal Conjugate Vacci ne, 20-valent ([id number]) 12/04/2022 Pneumococcal Polysaccharide PPV23 (Pneumovax) 05/06/2011 Seasonal [...] No 03/10/2024 Does the household have a [facility] source of income? (Household - for [...] 12:19 PM EST Found a fax from [facility] about the ramp. I am not seeing [...] call to verified if fax was received: [phone] Please fax back to [employer] Fax number will be on cover sheet. documented in this encounter Plan of Treatment Upcoming Encounters Date Type Department Care Team (Latest Contact Info) Description 08/19/2024 11:30 AM EST Nurse Only Wound Care, [address] [address] [facility], Nurse Wound Care [address] [place] [address] 08/20/2024 12:20 PM EST Office Visit [facility] [address] [place] [address] Melissa Cruz PA-C [address] [place] [address] 08/22/2024 10:30 AM EST Nurse Only Wound Care, [address] [address] [facility], Nurse Wound Care [address] [place] [address] 08/25/2024 10:30 AM EST Nurse Only Wound Care, [address] [place] [address] [facility], Nurse Wound Care [address] [place] [address], [place] [address] 08/27/2024 10:30 AM EST Nurse Only Wound Care, [address] [place] [address] [facility], Nurse Wound Care [address] [place] [address], [place] [address] 08/29/2024 10:30 AM EST Nurse Only Wound Care, [address] [place] [address] [facility], Nurse Wound Care [address] [place] [address], [place] [address] 09/01/2024 11:00 AM EST Office Visit Wound Care, [address] [place] [address] Yuriy Hilario MD [address] [facility] [place] [address] 10/09/2024 12:10 PM EST Hospital Encounter OR [facility], Operating Room, [facility] - 4th Floor [address] [place] [address], [place] [address] Bigg Wetzel MD [address] [place] [address] 10/09/2024 12:10 PM EST - 10/09/2024 1:11 PM EST Surgery OR [facility], Operating Room, [facility] - 4th Floor [address] [place] [address], [place] [address] Bigg Wetzel MD [address] [place] [address] COLONOSCOPY FLEXIBLE PROXIMAL DIAGNOSTIC 10/24/2024 10:00 AM EDT Office [address] [address] Darnell Boggs, DO [address] [place] [address] Scheduled Procedures Name Priority Associated Diagnoses Date/Ti [...] this encounter Medical Devices Implanted Type Area Forestry Consultant Device Identifier Shelf Expiration Date Model / Serial / Lot Device Perm Cntrl [id number] - [id number] Implanted:Qty: 2 on 09/27/2015 by Sharda Ruiz, Corey Rucker MD at OR [facility] Uterus [employer] 05/03/2017 [id number] / / [id number] documented as of this encounter Advance Directives [...] Power of Attor benoit? No Care Teams Camp Cook Relationship Specialty Start Date End Date eMlissa Cruz PA-C [address] [facility] [address] [place] [address] PCP - General Physician Senior Product Engineer 06/02/21 documented as of this encounter
--- OUTSIDE RECORDS SUMMARY | 2024-12-08 15:21 | External Medical Summary | Summary of Care ---
Author Name Unknown Organization [facility] Address [address] [place] [address] Phone [phone] Care Team Providers Care Barrel Drum Cutter Name Role Phone Melissa Cruz PA-C Primary Care Provider +1- [phone] Reason for Visit * Reason Onset Date Comments Fax 08/08/2024 Encounter Details Date Type Department Care Team (Late st Contact Info) Description 08/08/2024 Telephone [facility] [address] [place] [address] Melissa Cruz PA-C [address] [place] [address] Fax Allergies Active Allergy [...] Next Due Pneumococcal Conjugate Vacci ne, 20-valent ([id number]) 12/04/2022 Pneumococcal Polysaccharide PPV23 (Pneumovax) 05/06/2011 Seasonal [...] 12:19 PM EST Found a fax from [facility] about the ramp. I am not [...] call to verified if fax was received: [phone] Please fax back to [employer] Fax number will be on cover sheet. documented in this encounter Plan of Treatment Upcoming Encounters Date Type Department Care Team (Latest Contact Info) Description 08/19/2024 11:30 AM EST Nurse Only Wound Care, [address] [address] [facility], Nurse Wound Care [address] [place] [address] 08/20/2024 12:20 PM EST Office Visit [facility] [address] [place] [address] Melissa Cruz PA-C [address] [place] [address] 08/22/2024 10:30 AM EST Nurse Only Wound Care, [address] [address] [facility], Nurse Wound Care [address] [place] [address] 08/25/2024 10:30 AM EST Nurse Only Wound Care, [address] [place] [address] [facility], Nurse Wound Care [address] [place] [address], [place] [address] 08/27/2024 10:30 AM EST Nurse Only Wound Care, [address] [place] [address] [facility], Nurse Wound Care [address] [place] [address], [place] [address] 08/29/2024 10:30 AM EST Nurse Only Wound Care, [address] [place] [address] [facility], Nurse Wound Care [address] [place] [address], [place] [address] 09/01/2024 11:00 AM EST Office Visit Wound Care, [address] [place] [address] Yuriy Hilario MD [address] [place] [address] 10/09/2024 12:10 PM EST Hospital Encounter OR [facility], Operating Room, [facility] - 4th Floor [address] [place] [address], [place] [address] Bigg Wetzel MD [address] [place] [address] 10/09/2024 12:10 PM EST - 10/09/2024 1:11 PM EST Surgery OR [facility], Operating Room, [facility] - 4th Floor [address] [place] [address], [place] [address] Bigg Wetzel MD [address] [place] [address] COLONOSCOPY FLEXIBLE PROXIMAL DIAGNOSTIC 10/24/2024 10:00 AM EDT Office [address] [address] Darnell Boggs, DO [address] [place] [address] Scheduled Procedures Name Priority Associated Diagnoses Date/Ti [...] this encounter Medical Devices Implanted Type Area Transit Mixer Driver Device Identifier Shelf Expiration Date Model / Serial / Lot Device Perm Cntrl [id number] - [id number] Implanted:Qty: 2 on 09/27/2015 by Sharda Ruiz, Corey Rucker MD at OR [facility] Uterus [employer] 05/03/2017 [id number] / / [id number] documented as of this encounter Advance Directives [...] Power of Attor benoit? No Care Teams Barrel Drum Cutter Relationship Specialty Start Date End Date Melissa Cruz PA-C [address] [facility] [address] [place] [address] PCP - General Physician Ornamental Iron Worker Apprentice 06/02/21 documented as of this encounter
[2024-12-08] MEDS ORDERED: ONDANSETRON INJ 2 MG/ML 2 ML VIAL IV PRN (15:57)
[2024-12-08] MEDS ORDERED: clonazePAM 0.5 MG TAB PO PRN (15:57)
[2024-12-08] MEDS: cefTRIAXone SODIUM 2,000 MG/50 ML BAG IV SCH (16:15)
[2024-12-08] MEDS: PREGABALIN 150 MG CAP PO SCH (16:15)
[2024-12-08] MEDS: MoRPHine SULFATE 2 MG/ML CARP IV PRN (19:50)
[2024-12-08] MEDS: ENOXAPARIN INJ 40 MG/0.4 ML SYR SQ SCH (21:23)
[2024-12-08] MEDS: DULoxetine HCL 20 MG CAP PO SCH (21:24)
[2024-12-08] MEDS: busPIRone 5 MG TAB PO SCH (21:24)
[2024-12-08] MEDS: MONTELUKAST SODIUM 10 MG TABLET PO SCH (21:24)
[2024-12-08] MEDS: lamoTRIgine 100 MG TAB PO SCH (21:25)
[2024-12-08] MEDS: MEMANTINE HCL 10 MG TAB PO SCH (21:25)
[2024-12-08] MEDS: ARIPiprazole 15 MG TAB PO SCH (22:04)
--- NOTE | 2024-12-08 22:48 | Ultrasound Report ---
Exam(s): US ARTERIAL BILATERAL LOWER EXTREMITIES EXAM: US Duplex Bilateral Lower Extremities Arteries CLINICAL HISTORY: Reason for exam: nonhealing b/l wounds. TECHNIQUE: Real-time duplex ultrasound scan of the bilateral lower extremity arteries integrating B-mode two-dimensional vascular structure, Doppler spectral analysis and color flow Doppler imaging. COMPARISON: No relevant prior studies available. FINDINGS: Right common femoral artery: Right common femoral artery is patent with low resistance waveform, 169 cm/s. Right deep femoral artery: Right deep femoral artery, biphasic flow, 77 cm/s. Right superficial femoral artery: Right superficial femoral artery, low resistance waveform, 110, 132, and 180 cm/s. Right popliteal artery: Right popliteal artery, low resistance waveform, 133 and 96 cm/s. Right calf/foot arteries: Right posterior tibial artery, low resistance waveform, 101 cm/s. Right dorsalis pedis artery, low resistance waveform, 99 cm/s to 133 cm/s. Left common femoral artery: Left common femoral artery, low resistance waveform, 159 cm/s. Left deep femoral artery: Left deep femoral artery, monophasic waveform, 104 cm/s. Left superficial femoral artery: Left superficial femoral artery, low resistance waveform, 154, 139, and 196 cm/s. Left popliteal artery: Left popliteal artery, low resistance waveform, 152, 108, and 89 cm/s. Left calf/foot arteries: Left posterior tibial artery, low resistance waveform, 65 cm/s. Left dorsalis pedis artery, monophasic waveform, 152 and 134 cm/s. Soft tissues: Unremarkable. IMPRESSION: There is a low resistance waveform with sharp arterial upstroke but lack of diastolic reversal throughout most of both lower extremity arterial structures as described above. This can be due to severe stenosis or segmental occlusion above the aorta and/or iliac vessels versus loss of peripheral vascular resistance such as seen in chronic lower extremity infections or artifact from hardening of the arteries and small vessel disease. Consider CT angiogram for better visualization of more proximal vessels. Mildly elevated velocities in the distal superficial femoral arteries bilaterally consistent with 30-49% stenosis. Electronically signed by: Estiven Bridges MD 12/08/24 22:47 PM
[2024-12-09 05:54] LABS: Hematocrit (blood only) 30.6 % (37.0-47.0); Hemoglobin 9.6 g/dl (12.0-16.0); Mean Corpuscular Hemoglobin 26.2 pg (25.0-34.0); Mean Corpuscular Hgb Conc 31.4 g/dL (32.0-36.0); Mean Corpuscular Volume 83.6 fL (80.0-100.0); Mean Platelet Volume 9.1 fL (9.4-12.4); Platelet Count 252 K/uL (130-400); RDW Coefficient of Variation 15.3 % (11.5-14.5); RDW Standard Deviation 46.6 fL (36.4-46.3); Red Blood Count 3.66 M/uL (4.20-5.40); White Blood Count 7.43 K/ul (4.8-10.8)
[2024-12-09 06:14] LABS: BUN Creatinine Ratio 26.3 (10-20); Calcium 8.6 mg/dl (8.6-10.3); Magnesium 1.9 mg/dl (1.7-2.4); Potassium 4.2 mmol/L (3.5-5.1)
[2024-12-09] MEDS: ACETAMINOPHEN 325 MG TAB PO PRN (07:55)
[2024-12-09] MEDS: CHOLECALCIFEROL 25 MCG (1000 UNITS) TAB PO SCH (08:48)
[2024-12-09] MEDS: CETIRIZINE HCL 10 MG TABLET PO SCH (08:48)
[2024-12-09] MEDS: POTASSIUM CHLORIDE 10 MEQ TABCR PO SCH (08:48)
[2024-12-09] MEDS: MEMANTINE HCL 5 MG TAB PO SCH (08:49)
[2024-12-09] MEDS: ADVANCED PROBIOTIC 625 MG CAPSULE PO SCH (08:50)
[2024-12-09] MEDS: PANTOprazole 40 MG TAB PO SCH (08:50)
[2024-12-09] MEDS: OXYBUTYNIN CHLORIDE XL 5 MG TABCR PO SCH (08:50)
[2024-12-09] MEDS: FUROSEMIDE 40 MG TAB PO SCH (08:51)
--- NOTE | 2024-12-09 11:54 | Hospitalist Progress Note ---
Date of Service December 09, 2024 Assessment & Plan (1) Lymphedema associated with obesity: (2) Cellulitis of leg: (3) Non-healing wound of right lower extremity: (4) Non-healing wound of left lower extremity: (5) Morbid obesity: (6) Venous stasis of lower extremity: (7) PAD (peripheral artery disease): (8) JORGE A (obstructive sleep apnea): Plan: Does not use CPAP Plan Patient with severe chronic lower extremity lymphedema and morbid obesity with chronic venous and arterial ulcerations and recurrent lower extremity cellulitis. Continue current antibiotic MRSA screen Based on results of arterial Doppler consider CTA for further evaluation of lower extremity vascular system Consult vascular surgery Reviewed previous infectious disease recommendations from August. Had treated patient's cellulitis at that time with Zyvox can consider transitioning to Zyvox here again after some IV antibiotics Monitor cultures Admission and Anticipated Discharge Date Admission Date: December 08, 2024 Subjective No acute issues from since admission. Patient states that she had been doing well up until the last day or 2. Physical Exam Physical Exam: Constitutional: Alert, morbidly obese, nontoxic HEENT: Mucous membranes moist. Lungs: Clear to auscultation, decreased, no wheezes rales or rhonchi CV: S1-S2, regular Abdomen: Soft, nontender, nondistended Extremities: Chronic lymphedema, multiple chronic venous ulcers lower extremity right worse than left. Purulent and malodorous discharge from ulcers and creases and skin in the right lower extremity Neuro: No focal deficits Psych: Cooperative, normal mood Results & Data Results & Data Vital Signs (Past 12 Hours) Vital Signs Temp Pulse Resp BP Pulse Ox O2 Del Method 12/09/24 07:46 36.6 C 70 16 102/69 94 Room Air 12/09/24 07:29 Room Air Diagnostic Findings Reviewed imaging, laboratory and diagnostic studies. Pertinent findings as below. WBC 7.4 Hemoglobin 9.6 Electrolytes stable Creatinine 0.8 Glucose was reviewed Arterial Doppler results noted, concern for bilateral stenosis. Reviewed outside EMR, does not look as though she had pursued any vascular studies since her last admission at [facility]. Patient does appear to have follow fairly closely with wound clinic. Had been managing her chronic wounds with Unna boots.
--- NOTE | 2024-12-09 13:31 | Infectious Disease Consult ---
Date of Service December 09, 2024 Telehealth Information I performed this visit using a real-time telehealth connection between my location and the patients location ([facility]). After connecting through interactive tele-video, patient was identified by name and date of and/or wristband check.Patient (or authorized healthcare territory account representative) was informed that this was a telemedicine visit and it was being conducted confidentially over secure lines. My office door was closed and no one else was present in the room with me.Patient (or authorized healthcare territory account representative) provided consent to proceed with the visit, expressed an understanding of privacy and security of the telemedicine visit, and gave permission to have a hospital territory account representative in the room in order to assist with the visit and to conduct portions of the visit, as needed. I informed the patient (or authorized healthcare territory account representative) that I reviewed their record and presented the opportunity for them to ask any questions regarding the visit today. The patient agreed to participate. Assessment & Plan (1) Lymphedema associated with obesity: (2) Morbid obesity: (3) Cellulitis of leg: Plan: Assessment: Recurrent RLE cellulitis w/ chronic shallow ulcers Morbid obesity Hx of MRSA RLE infection (08/2024) Recommendations: - Stop daptomycin and ceftriaxone - Start clindamycin 450 mg po q8 hours to empirically cover MRSA - Provide probiotic while on antibiotic therapy - F/u blood culturesl - F/u wound culture: although prone to contamination, it may provide a reasonable information. I usually discourage superficial wound culture but will follow the result as the sample has already been collected. - Final antibiotic recommendation and duration of therapy to be determined based on clinical response Given her morbid obesity and prior positive culture w/ MRSA in the same location, susceptible to clindamycin, I recommend po clindamycin for its excellent penetration and bioavailability. Linezolid may be another option but she take numerous psychiatric medications that may increase risk of drug-drug interactions. During this patient encounter, one or more of the following was provided in addition to my in person visit: disease transmission risk assessment and mitigation; public health investigation, analysis, and testing; and/or complex antimicrobial therapy counseling and treatment. I spent a total of 81 minutes coordinating, documenting, and providing care for this patient excluding time spent in the performance of separately billed services or time spent by another provider/QHP. (4) Non-healing wound of lower extremity: History of Present Illness History of Present Illness This is a 49 y/o morbidly obese female w/ a hx of b/l LE lymphedema, chronic LE wounds, JORGE A noncompliant w/ CPAP, bipolar d/o, depression, PTSD and axiety, who presented to [facility] for worsening RLE wounds w/ redness, pain and increased yellowish drainage x3-4 days. She also had f/c over the weekend w/ mild nausea. She has had the wounds for 2 years, but soft tissue infection started in 08/2024. This is a second episode. She feel OK at this point but little warm. She has intermittent chest discomfort of unclear nature, coughing, sob, urinary symptoms, f/c or n/v. She has chronic loose BM, currently at baseline. She still has the pain and tenderness on RLE. Allergies Allergy/AdvReac Type Severity Reaction Status Date / Time aspirin AdvReac Nose Bleed Verified 08/10/24 00:43 Home Medications Medication Instructions Recorded Confirmed Type aripiprazole 15 mg tablet 15 mg PO HS 08/09/24 12/08/24 History buspirone 10 mg tablet 10 mg PO BID 08/09/24 12/08/24 History cetirizine 10 mg tablet 10 mg PO DAILY 08/09/24 12/08/24 History ferrous sulfate 28 mg iron tablet 28 mg PO DAILY 08/09/24 12/08/24 History lamotrigine 100 mg tablet 100 mg PO BID 08/09/24 12/08/24 History montelukast 10 mg tablet 10 mg PO HS 08/09/24 12/08/24 History omeprazole 20 mg capsule,delayed 20 mg PO DAILY 08/09/24 12/08/24 History release potassium chloride 10 mEq 10 meq PO DAILY 08/09/24 12/08/24 History tablet,extended release pregabalin 150 mg capsule 150 mg PO TID 08/09/24 12/08/24 History cholecalciferol (vitamin D3) 50 50 mcg PO DAILY 12/08/24 12/08/24 History mcg (2,000 unit) tablet clonazepam 0.5 mg tablet 0.25 mg PO BID PRN Anxiety 12/08/24 12/08/24 History duloxetine 20 mg capsule,delayed 20 mg PO BID 12/08/24 12/08/24 History release furosemide 40 mg tablet 40 mg PO DAILY PRN Edema 12/08/24 12/08/24 History memantine 10 mg tablet 10 mg PO HS 12/08/24 12/08/24 History memantine 5 mg tablet 5 mg PO DAILY 12/08/24 12/08/24 History oxybutynin chloride 5 mg 5 mg PO DAILY 12/08/24 12/08/24 History tablet,extended release 24 hr turmeric 400 mg capsule 400 mg PO DAILY 12/08/24 12/08/24 History Patient History Social History Smoking Status: Former smoker Hx Alcohol Use: Yes Hx Substance Use: No Preferred Language: Danish Communication Ability: Effective News Analyst Required: No Beliefs That Will Affect Care: None Current Living Situation: Other Current Living Situation Comment: roommate, 4 cats, 2 dogs in [place] Other Information That Helps Us Care for You: No Feels Safe at Home: Yes Safety Concerns: Feels Safe At This Time Assistive Devices: Glasses and Walker Review of Systems as HPI and all others negative Physical Exam Gen: no acute distress, morbidly obese Lungs: breathing comfortably on room air Skin: redness and shallow ulcers noted on the pannus in mid RLE, minimal yellowish drainage noted, no bullous lesions, warmth and tenderness reported by patient and bedside nursing staff Results & Data Vital Signs (Past 12 Hours) Vital Signs Temp Pulse Resp BP Pulse Ox O2 Del Method 12/09/24 07:46 36.6 C 70 16 102/69 94 Room Air 12/09/24 07:29 Room Air Laboratory Results WBC 7.43K H 9.6 Plt 252K Cr 0.8 Wound cx (08/10/24): MRSA (S to clinda, dapto, linez, rif, tetra, vanco; R to bact) R leg wound (12/08): result pending Blood cx (12/08): NGTD Doppler (12/08): There is a low resistance waveform with sharp arterial upstroke but lack of diastolic reversal throughout most of both lower extremity arterial structures as described above. This can be due to severe stenosis or segmental occlusion above the aorta and/or iliac vessels versus loss of peripheral vascular resistance such as seen in chronic lower extremity infections or artifact from hardening of the arteries and small vessel disease. Consider CT angiogram for better visualization of more proximal vessels. Mildly elevated velocities in the distal superficial femoral arteries bilaterally consistent with 30-49% stenosis. Medications Administered ABX CTX 5/5- Daptomcyin 5/5-
[2024-12-09] MEDS: OPTIRAY 320 125ml IV ONE (14:02)
[2024-12-09] MEDS: CLINDAMYCIN HCL 150 MG CAP PO SCH (14:34)
--- NOTE | 2024-12-09 14:45 | CT Scan Report ---
CT ANGIOGRAPHY OF THE ABDOMEN AND PELVIS WITH LOWER EXTREMITY RUNOFF CLINICAL HISTORY: PAD, evaluate stenosis aorta, iliacs COMPARISON STUDY: Bilateral lower extremity arterial Doppler ultrasound December 08, 2024. TECHNIQUE: Helical axial images of the abdomen and pelvis and both lower extremities were obtained du ring arterial phase following intravenous injection of 119 cc of Optiray 320 IV. Sagittal and coronal reformats were viewed as well as maximal intensity projections on an independent 3-D workstation. A dose lowering technique was utilized adhering to the principles of ALARA. FINDINGS: The heart is moderately enlarged. No pneumatosis, free air or portal venous gas is present. The spleen is mildly enlarged. There is no biliary ductal dilatation status post cholecystectomy. Ad renal glands, kidneys and pancreas are normal. There is no evidence for a bowel obstruction. There is a moderate amount stool within the colon. The appendix is normal. There is no lymphadenopathy. There is no ascites. Bilateral lower extremity edema is noted. Numerous varicosities are present. Incident al note is made of severe osteoarthritis of the medial compartments of both knees. This exam is mildly compromised by quantum mottle artifact. The caliber of the abdominal aorta is nor mal. The celiac axis, superior mesenteric artery, inferior mesenteric artery and renal arteries are p atent. There are no stenosis within these vessels. The right common iliac, internal iliac, external iliac and common femoral arteries are patent. There is moderate calcified plaque within the right superficial femoral artery with mild stenosis. No high- grade stenosis is identified. There is moderate plaque within the right popliteal, anterior tibial, p osterior tibial, peroneal and dorsalis pedis vessels. Calf vessels are suboptimally assessed given sm all size but no high-grade stenosis is present. There is three-vessel runoff on the right. The left common iliac, internal iliac and external iliac arteries are patent. The left common femoral artery is patent. There is moderate calcified plaque within the left superficial femoral artery with mild stenosis. No high-grade stenosis is present. There is also moderate calcified plaque within the left calf vessels without high-grade stenosis. There is three-vessel runoff on the left. IMPRESSION: 1. No aortoiliac stenoses. 2. Three-vessel runoff bilaterally. Moderate atherosclerotic plaque within the bilateral superficial femoral and popliteal arteries and the bilateral calf vessels which results in mild multifocal stenos is. No high-grade stenoses. Exam mildly compromised by quantum mottle artifact. 3. Bilateral lower extremity edema. No fluid collections identified. 4. Cardiomegaly. 5. Mild splenomegaly. ACT 112: Negative or not required by law. Electronically signed by: Bubba Perez M.D. 12/09/2024 2:44 PM
[2024-12-10 06:10] LABS: Hematocrit (blood only) 30.7 % (37.0-47.0); Hemoglobin 9.8 g/dl (12.0-16.0); Mean Corpuscular Hemoglobin 26.3 pg (25.0-34.0); Mean Corpuscular Hgb Conc 31.9 g/dL (32.0-36.0); Mean Corpuscular Volume 82.3 fL (80.0-100.0); Mean Platelet Volume 8.9 fL (9.4-12.4); Platelet Count 256 K/uL (130-400); RDW Coefficient of Variation 15.3 % (11.5-14.5); RDW Standard Deviation 46.1 fL (36.4-46.3); Red Blood Count 3.73 M/uL (4.20-5.40); White Blood Count 6.57 K/ul (4.8-10.8)
[2024-12-10 06:26] LABS: BUN Creatinine Ratio 27.1 (10-20); Calcium 8.6 mg/dl (8.6-10.3); Creatinine Clr Calc Pharmacy 100.9 ml/min; Potassium 4.3 mmol/L (3.5-5.1)
[2024-12-10] MEDS: KETOROLAC TROMETHAMINE 15 MG/ML VIAL IV ONE (10:34)
--- NOTE | 2024-12-10 13:36 | Consultation ---
Date of Consultation December 10, 2024 Assessment & Plan (1) Non-healing wound of left lower extremity: Pt with multiple BLE shallow ulcerations on legs only, no wounds on feet. Distal pulses are palpable and feet are not ischemic. Pt has no sx of claudication or rest pain. Imaging demonstrates no significant arterial disease. No indications for vascular surgical intervention. Recommend local wound care per medical team/wound care team. Pt expresses understanding. History of Present Illness Reason for Consultation: PAD, BLE ulcers Attending Physician: Aida Mason MD History of Present Illness 49 yo f with hx of lymphedema, depression, JORGE A, GERD, and chronic BLE venous stasis ulcers, seen in consultation today for possible PAD. Pt admitted with recurrent cellulitis of BLE leg ulcers/wounds. Pt states she does not ambulate much, but denies any thigh or calf claudication sx. Denies rest pain or nonhealing ulcers on feet/toes. Denies TILLEY, fever, chest pain, SOB, abd pain, N/V, other complaints. Arterial US imaging demonstrates no significant disease. CTA abd/pelvis with runoff also demonstrates no significant arterial disease. Allergies Allergy/AdvReac Type Severity Reaction Status Date / Time aspirin AdvReac Nose Bleed Verified 08/10/24 00:43 Home Medications Medication Instructions Recorded Confirmed Type aripiprazole 15 mg tablet 15 mg PO HS 08/09/24 12/08/24 History buspirone 10 mg tablet 10 mg PO BID 08/09/24 12/08/24 History cetirizine 10 mg tablet 10 mg PO DAILY 08/09/24 12/08/24 History ferrous sulfate 28 mg iron tablet 28 mg PO DAILY 08/09/24 12/08/24 History lamotrigine 100 mg tablet 100 mg PO BID 08/09/24 12/08/24 History montelukast 10 mg tablet 10 mg PO HS 08/09/24 12/08/24 History omeprazole 20 mg capsule,delayed 20 mg PO DAILY 08/09/24 12/08/24 History release potassium chloride 10 mEq 10 meq PO DAILY 08/09/24 12/08/24 History tablet,extended release pregabalin 150 mg capsule 150 mg PO TID 08/09/24 12/08/24 History cholecalciferol (vitamin D3) 50 50 mcg PO DAILY 12/08/24 12/08/24 History mcg (2,000 unit) tablet clonazepam 0.5 mg tablet 0.25 mg PO BID PRN Anxiety 12/08/24 12/08/24 History duloxetine 20 mg capsule,delayed 20 mg PO BID 12/08/24 12/08/24 History release furosemide 40 mg tablet 40 mg PO DAILY PRN Edema 12/08/24 12/08/24 History memantine 10 mg tablet 10 mg PO HS 12/08/24 12/08/24 History memantine 5 mg tablet 5 mg PO DAILY 12/08/24 12/08/24 History oxybutynin chloride 5 mg 5 mg PO DAILY 12/08/24 12/08/24 History tablet,extended release 24 hr turmeric 400 mg capsule 400 mg PO DAILY 12/08/24 12/08/24 History Patient History Social History Smoking Status: Former smoker Hx Alcohol Use: Yes Hx Substance Use: No Preferred Language: Citizen [place] Communication Ability: Effective Clinical Research Tech Required: No Beliefs That Will Affect Care: None Current Living Situation: Other Current Living Situation Comment: roommate, 4 cats, 2 dogs in [place] Other Information That Helps Us Care for You: No Feels Safe at Home: Yes Safety Concerns: Feels Safe At This Time Assistive Devices: CPAP, Glasses and Walker Review of Systems Review of Systems: All systems reviewed & are unremarkable except as noted in HPI & below Physical Exam Constitutional: WD/WN, vitals as above + morbidly obese, cooperative and comfortable; not in distress Neck: trachea midline Respiratory: normal respiratory effort, lungs clear to auscultation Auscultation: + diminished lung sounds Cardiovascular: Rate/Rhythm: regular rate and regular rhythm Vessels: femoral pulses present, posterior tibial pulses present (+2 BLE), dorsalis pedis pulses present (+2 BLE) and radial pulses present; + abnormal peripheral pulses Extremities: normal capillary refill and + edema (BLE, severe) Gastrointestinal (Abdomen): Inspection/Auscultation: abdomen normal to inspection, normal bowel sounds and + significant pannus Percussion/Palpation: abdomen soft; abdomen nontender Musculoskeletal: no cyanosis or clubbing, extremities motor strength 5/5 Skin: + ulcer BLE with shallow ulcers, good granulation in wound beds, + periwound er ythema/warmth. No drainage. Neurologic: moves all extremities and awake; no focal motor deficits and not confused Psychiatric: A+Ox3, euthymic affect Results & Data Vital Signs (Past 12 Hours) Vital Signs Temp Pulse Resp BP Pulse Ox O2 Del Method 12/10/24 07:09 Room Air 12/10/24 07:03 36.6 C 71 16 103/67 96 Room Air
--- NOTE | 2024-12-10 14:25 | Hospitalist Progress Note ---
Date of Service December 10, 2024 Assessment & Plan (1) Lymphedema associated with obesity: (2) Cellulitis of leg: (3) Non-healing wound of right lower extremity: (4) Non-healing wound of left lower extremity: (5) Morbid obesity: (6) Venous stasis of lower extremity: (7) PAD (peripheral artery disease): (8) JORGE A (obstructive sleep apnea): Plan Ms. Jimenez is a 49 yr old F who has a significant PMH of Bipolar disorder, depression with anxiety, PTSD, asthma, JORGE A noncompliant with CPAP, b/l lymphedema, chronic lower extremity wounds and morbid obesity who presents to ED 2/2 worsening RLE wounds, redness and pain for 3-4 days prior to admission. Patient was evaluated by ID who recommended clindamycin 450 mg po q8 hours to empirically cover MRSA and for its penetration and bioavailability. Requesting final recs from ID as all wound cultures negative at this time #Recurrent RLE cellulitis w/ chronic shallow ulcers #Hx of MRSA RLE infection #Chronic lymphedema MRSA + RLE wound cx and blood cx NGTD Transitioned to IV clindamycin on 12/09 Await ID recommendations Vascular: no notable vascular disease continue lasix Discussed case with ID Dr Carter: continue IV until tomorrow with transition to same dose as PO for total 14 days #bipolar disorder #PTSD continue home regimen caution if zyvox is utilized upon Dispo dvt ppx lovenox Admission and Anticipated Discharge Date Admission Date: December 08, 2024 Subjective Reports the drainage is improving of the wounds, but notes the ulcers still bother her, mostly when touching them--advised patient to not touch open wound. Denies any fevers, chills Notes she does overall feel better--discussed that she will likely return home tomorrow Patient verbalized understanding Physical Exam Constitutional: WD/WN, vitals as above Respiratory: diminished 2/2 habitus Cardiovascular: RRR, no murmur, no edema Skin: notable lymphedematous changes to BLE; dusky erythema with flaking and excoriations around medial-anterior thigh to bilateral legs, signs of xerosis and reduction of swelling Results & Data Results & Data Vital Signs (Past 12 Hours) Vital Signs Temp Pulse Resp BP Pulse Ox O2 Del Method 12/10/24 07:09 Room Air 12/10/24 07:03 36.6 C 71 16 103/67 96 Room Air
--- NOTE | 2024-12-10 17:33 | Communication Note ---
Date of Service: December 10, 2024 Date: 12/10/2024 Assessment & Plan (1) Lymphedema associated with obesity: (2) Morbid obesity: (3) Cellulitis of leg (Recurrent RLE cellulitis w/ chronic shallow ulcers) (4)Hx of MRSA RLE infection (08/2024) Recommendation: - if the patient is improving on clindamycin, we recommend to treat with p.o. clindamycin 450 mg q8 hours to treat for 14 days ( end date 12/23/2024 ) - recommended probiotic while on antibiotic therapy to 1 week after stopping antibiotics - Infectious Disease is signing off
[2024-12-11 06:38] LABS: Hematocrit (blood only) 31.1 % (37.0-47.0); Mean Corpuscular Hemoglobin 26.5 pg (25.0-34.0); Mean Corpuscular Hgb Conc 32.2 g/dL (32.0-36.0); Mean Corpuscular Volume 82.3 fL (80.0-100.0); Mean Platelet Volume 8.9 fL (9.4-12.4); Platelet Count 263 K/uL (130-400); RDW Coefficient of Variation 15.3 % (11.5-14.5); RDW Standard Deviation 45.6 fL (36.4-46.3); Red Blood Count 3.78 M/uL (4.20-5.40)
[2024-12-11 06:54] LABS: BUN Creatinine Ratio 39.1 (10-20); Calcium 8.6 mg/dl (8.6-10.3); Creatinine Clr Calc Pharmacy 111.3 ml/min; Potassium 4.3 mmol/L (3.5-5.1)
[2024-12-11] MEDS: KETOROLAC TROMETHAMINE 15 MG/ML VIAL IV ONE (09:53)
--- NOTE | 2024-12-11 14:26 | Hospitalist Progress Note ---
Date of Service December 11, 2024 Assessment & Plan (1) Lymphedema associated with obesity: (2) Cellulitis of leg: (3) Non-healing wound of right lower extremity: (4) Non-healing wound of left lower extremity: (5) Morbid obesity: (6) Venous stasis of lower extremity: (7) PAD (peripheral artery disease): (8) JORGE A (obstructive sleep apnea): Plan Ms. Jimenez is a 49 yr old F who has a significant PMH of Bipolar disorder, depression with anxiety, PTSD, asthma, JORGE A noncompliant with CPAP, b/l lymphedema, chronic lower extremity wounds and morbid obesity who presents to ED 2/2 worsening RLE wounds, redness and pain for 3-4 days prior to admission. Patient was evaluated by ID who recommended clindamycin 450 mg po q8 hours to empirically cover MRSA and for its penetration and bioavailability. Patient with continued improvement; however, given habitus she is unlikely to care for wounds by her self initially as she cannot visualize or reach the areas on the legs. Discussed with her roomate that living conditions are also questionable as well as self care. Working with case management for skilled placement for wound care to ensure best opportunity for healing #Recurrent RLE cellulitis w/ chronic shallow ulcers #Hx of MRSA RLE infection #Chronic lymphedema MRSA + RLE wound cx and blood cx NGTD Transitioned to IV clindamycin on 12/09 Await ID recommendations Vascular: no notable vascular disease continue lasix Discussed case with ID Dr Redmond: continue IV until tomorrow with transition to same dose as PO for total 14 days #bipolar disorder #PTSD continue home regimen caution if zyvox is utilized upon Dispo dvt ppx lovenox Admission and Anticipated Discharge Date Admission Date: December 08, 2024 Subjective NAEO reports improvement in pain and swelling in her legs Physical Exam Constitutional: WD/WN, vitals as above Respiratory: normal respiratory effort, lungs clear to auscultation Cardiovascular: RRR, no murmur, no edema Skin: continued improvement in redness and drainage of wounds, still surround dusky discoloration some surrounding xerosis Results & Data Results & Data Vital Signs (Past 12 Hours) Vital Signs Temp Pulse Resp BP Pulse Ox O2 Del Method 12/11/24 07:15 36.5 C 69 16 123/81 93 Room Air 12/11/24 06:56 Room Air Laboratory Results Short CBC 12/11/24 Range/Units 06:02 WBC 6.20 (4.8-10.8) K/ul Hgb 10.0 L (12.0-16.0) g/dl Hct 31.1 L (37.0-47.0) % Plt Count 263 (130-400) K/uL BMP 12/11/24 06:02 Sodium 138 Potassium 4.3 Chloride 102 Carbon Dioxide 31 BUN 34 H Creatinine 0.87 Glucose 98 Calcium 8.6 Medications Administered Home Medications Medication Instructions Recorded Confirmed Last Taken aripiprazole 15 mg tablet 15 mg PO HS 08/09/24 12/08/24 Unknown buspirone 10 mg tablet 10 mg PO BID 08/09/24 12/08/24 Unknown cetirizine 10 mg tablet 10 mg PO DAILY 08/09/24 12/08/24 Unknown ferrous sulfate 28 mg iron tablet 28 mg PO DAILY 08/09/24 12/08/24 Unknown lamotrigine 100 mg tablet 100 mg PO BID 08/09/24 12/08/24 Unknown montelukast 10 mg tablet 10 mg PO HS 08/09/24 12/08/24 Unknown omeprazole 20 mg capsule,delayed 20 mg PO DAILY 08/09/24 12/08/24 Unknown release potassium chloride 10 mEq 10 meq PO DAILY 08/09/24 12/08/24 Unknown tablet,extended release pregabalin 150 mg capsule 150 mg PO TID 08/09/24 12/08/24 Unknown cholecalciferol (vitamin D3) 50 50 mcg PO DAILY 12/08/24 12/08/24 Unknown mcg (2,000 unit) tablet clonazepam 0.5 mg tablet 0.25 mg PO BID PRN Anxiety 12/08/24 12/08/24 Unknown duloxetine 20 mg capsule,delayed 20 mg PO BID 12/08/24 12/08/24 Unknown release furosemide 40 mg tablet 40 mg PO DAILY PRN Edema 12/08/24 12/08/24 Unknown memantine 10 mg tablet 10 mg PO HS 12/08/24 12/08/24 Unknown memantine 5 mg tablet 5 mg PO DAILY 12/08/24 12/08/24 Unknown oxybutynin chloride 5 mg 5 mg PO DAILY 12/08/24 12/08/24 Unknown tablet,extended release 24 hr turmeric 400 mg capsule 400 mg PO DAILY 12/08/24 12/08/24 Unknown Active Medications Generic Name Dose Route Start Last Admin Trade Name Freq PRN Reason Stop Dose Admin Acetaminophen 650 mg 12/08/24 15:57 12/11/24 08:03 Acetaminophen 325 Mg Tab PO 01/07/25 15:56 650 mg Q4H PRN Administration pain/fever Aripiprazole 15 mg 12/08/24 21:00 12/10/24 20:30 Aripiprazole 15 Mg Tab PO 01/07/25 20:59 15 mg HS ROSE Administration Buspirone HCl 10 mg 12/08/24 21:00 12/11/24 08:05 Buspirone 5 Mg Tab PO 01/07/25 20:59 10 mg BID ROSE Administration Cetirizine HCl 10 mg 12/09/24 09:00 12/11/24 08:05 Cetirizine Hcl 10 Mg Tablet PO 01/08/25 08:59 10 mg DAILY ROSE Administration Clindamycin HCl 450 mg 12/09/24 14:00 12/11/24 13:51 Clindamycin Hcl 150 Mg Cap PO 12/16/24 13:59 450 mg Q8H ROSE Administration Duloxetine HCl 20 mg 12/08/24 21:00 12/11/24 08:05 Duloxetine Hcl 20 Mg Cap PO 01/07/25 20:59 20 mg BID ROSE Administration Enoxaparin Sodium 40 mg 12/08/24 21:00 12/11/24 08:02 Enoxaparin Inj 40 Mg/0.4 Ml Syr SQ 01/07/25 20:59 40 mg Q12H ROSE Administration Furosemide 40 mg 12/09/24 09:00 12/11/24 08:06 Furosemide 40 Mg Tab PO 01/08/25 08:59 Not Given DAILY ROSE Lactobacillus Acidophilus 1,250 mg 12/09/24 09:00 12/11/24 08:03 Advanced Probiotic 625 Mg Capsule PO 01/08/25 08:59 1,250 mg DAILY ROSE Administration Lamotrigine 100 mg 12/08/24 21:00 12/11/24 08:04 Lamotrigine 100 Mg Tab PO 01/07/25 20:59 100 mg BID ROSE Administration Protocol Memantine 10 mg 12/08/24 21:00 12/10/24 20:33 Memantine Hcl 10 Mg Tab PO 01/07/25 20:59 10 mg HS ROSE Administration Memantine 5 mg 12/09/24 09:00 12/11/24 08:06 Memantine Hcl 5 Mg Tab PO 01/08/25 08:59 5 mg DAILY ROSE Administration Montelukast Sodium 10 mg 12/08/24 21:00 12/10/24 20:31 Montelukast Sodium 10 Mg Tablet PO 01/07/25 20:59 10 mg HS ROSE Administration Morphine Sulfate 2 mg 12/08/24 15:57 12/11/24 12:57 Morphine Sulfate 2 Mg/Ml Carp IV 12/22/24 15:56 2 mg BID PRN Administration pre dressing change/pain Oxybutynin Chloride 5 mg 12/09/24 09:00 12/11/24 08:06 Oxybutynin Chloride Xl 5 Mg Tabcr PO 01/08/25 08:59 5 mg DAILY ROSE Administration Pantoprazole Sodium 40 mg 12/09/24 09:00 12/11/24 08:06 Pantoprazole 40 Mg Tab PO 01/08/25 08:59 40 mg DAILY ROSE Administration Potassium Chloride 10 meq 12/09/24 09:00 12/11/24 08:06 Potassium Chloride 10 Meq Tabcr PO 01/08/25 08:59 Not Given DAILY ROSE Pregabalin 150 mg 12/08/24 15:57 12/11/24 13:51 Pregabalin 150 Mg Cap PO 01/07/25 15:56 150 mg TID ROSE Administration Vitamin D 50 mcg 12/09/24 09:00 12/11/24 08:06 Cholecalciferol 25 Mcg (1000 Units) Tab PO 01/08/25 08:59 50 mcg DAILY ROSE Administration
[2024-12-12] MEDS: oxyCODONE HCL IR 5 MG TAB (IMMEDIATE RELEASE) PO STA (05:28)
--- NOTE | 2024-12-12 11:12 | Hospitalist Progress Note ---
Date of Service December 12, 2024 Assessment & Plan (1) Lymphedema associated with obesity: (2) Cellulitis of leg: (3) Non-healing wound of right lower extremity: (4) Non-healing wound of left lower extremity: (5) Morbid obesity: (6) Venous stasis of lower extremity: (7) PAD (peripheral artery disease): (8) JORGE A (obstructive sleep apnea): Plan Ms. Jimenez is a 49 yr old F who has a significant PMH of Bipolar disorder, depression with anxiety, PTSD, asthma, JORGE A noncompliant with CPAP, b/l lymphedema, chronic lower extremity wounds and morbid obesity who presents to ED 2/2 worsening RLE wounds, redness and pain for 3-4 days prior to admission. Patient was evaluated by ID who recommended clindamycin 450 mg po q8 hours to empirically cover MRSA and for its penetration and bioavailability. Patient with continued improvement; however, given habitus she is unlikely to care for wounds by her self initially as she cannot visualize or reach the areas on the legs. Discussed with her roomate that living conditions are also questionable as well as self care. Working with case management for skilled placement for wound care to ensure best opportunity for healing Pending insurance auth. Medically stable for discharge #Recurrent RLE cellulitis w/ chronic shallow ulcers #Hx of MRSA RLE infection #Chronic lymphedema MRSA + RLE wound cx and blood cx NGTD Transitioned to IV clindamycin on 12/09 Await ID recommendations Vascular: no notable vascular disease continue lasix Discussed case with ID Dr Redmond: continue IV until tomorrow with transition to same dose as PO for total 14 days #bipolar disorder #PTSD continue home regimen caution if zyvox is utilized upon Dispo dvt ppx lovenox Admission and Anticipated Discharge Date Admission Date: December 08, 2024 Subjective NAEO awaiting insurance auth for SNF for wound care Physical Exam Constitutional: WD/WN, vitals as above Respiratory: normal respiratory effort, lungs clear to auscultation Cardiovascular: RRR, no murmur, no edema Skin: continued improvement in swelling of area around ulcers on BLE, reduction in erythema and drainage noted Results & Data Results & Data Vital Signs (Past 12 Hours) Vital Signs Temp Pulse Resp BP Pulse Ox O2 Del Method 12/12/24 07:54 36.4 C L 60 15 105/76 95 Room Air Medications Administered Home Medications Medication Instructions Recorded Confirmed Last Taken aripiprazole 15 mg tablet 15 mg PO HS 08/09/24 12/08/24 Unknown buspirone 10 mg tablet 10 mg PO BID 08/09/24 12/08/24 Unknown cetirizine 10 mg tablet 10 mg PO DAILY 08/09/24 12/08/24 Unknown ferrous sulfate 28 mg iron tablet 28 mg PO DAILY 08/09/24 12/08/24 Unknown lamotrigine 100 mg tablet 100 mg PO BID 08/09/24 12/08/24 Unknown montelukast 10 mg tablet 10 mg PO HS 08/09/24 12/08/24 Unknown omeprazole 20 mg capsule,delayed 20 mg PO DAILY 08/09/24 12/08/24 Unknown release potassium chloride 10 mEq 10 meq PO DAILY 08/09/24 12/08/24 Unknown tablet,extended release pregabalin 150 mg capsule 150 mg PO TID 08/09/24 12/08/24 Unknown cholecalciferol (vitamin D3) 50 50 mcg PO DAILY 12/08/24 12/08/24 Unknown mcg (2,000 unit) tablet clonazepam 0.5 mg tablet 0.25 mg PO BID PRN Anxiety 12/08/24 12/08/24 Unknown duloxetine 20 mg capsule,delayed 20 mg PO BID 12/08/24 12/08/24 Unknown release furosemide 40 mg tablet 40 mg PO DAILY PRN Edema 12/08/24 12/08/24 Unknown memantine 10 mg tablet 10 mg PO HS 12/08/24 12/08/24 Unknown memantine 5 mg tablet 5 mg PO DAILY 12/08/24 12/08/24 Unknown oxybutynin chloride 5 mg 5 mg PO DAILY 12/08/24 12/08/24 Unknown tablet,extended release 24 hr turmeric 400 mg capsule 400 mg PO DAILY 12/08/24 12/08/24 Unknown Active Medications Generic Name Dose Route Start Last Admin Trade Name Freq PRN Reason Stop Dose Admin Acetaminophen 650 mg 12/08/24 15:57 12/12/24 04:19 Acetaminophen 325 Mg Tab PO 01/07/25 15:56 650 mg Q4H PRN Administration pain/fever Aripiprazole 15 mg 12/08/24 21:00 12/11/24 20:51 Aripiprazole 15 Mg Tab PO 01/07/25 20:59 15 mg HS ROSE Administration Buspirone HCl 10 mg 12/08/24 21:00 12/12/24 07:55 Buspirone 5 Mg Tab PO 01/07/25 20:59 10 mg BID ROSE Administration Cetirizine HCl 10 mg 12/09/24 09:00 12/12/24 07:55 Cetirizine Hcl 10 Mg Tablet PO 01/08/25 08:59 10 mg DAILY ROSE Administration Clindamycin HCl 450 mg 12/09/24 14:00 12/12/24 05:28 Clindamycin Hcl 150 Mg Cap PO 12/16/24 13:59 450 mg Q8H ROSE Administration Duloxetine HCl 20 mg 12/08/24 21:00 12/12/24 07:54 Duloxetine Hcl 20 Mg Cap PO 01/07/25 20:59 20 mg BID ROSE Administration Enoxaparin Sodium 40 mg 12/08/24 21:00 12/12/24 07:54 Enoxaparin Inj 40 Mg/0.4 Ml Syr SQ 01/07/25 20:59 40 mg Q12H ROSE Administration Furosemide 40 mg 12/09/24 09:00 12/12/24 07:52 Furosemide 40 Mg Tab PO 01/08/25 08:59 Not Given DAILY ROSE Lactobacillus Acidophilus 1,250 mg 12/09/24 09:00 12/12/24 07:55 Advanced Probiotic 625 Mg Capsule PO 01/08/25 08:59 1,250 mg DAILY ROSE Administration Lamotrigine 100 mg 12/08/24 21:00 12/12/24 07:55 Lamotrigine 100 Mg Tab PO 01/07/25 20:59 100 mg BID ROSE Administration Protocol Memantine 10 mg 12/08/24 21:00 12/11/24 20:51 Memantine Hcl 10 Mg Tab PO 01/07/25 20:59 10 mg HS ROSE Administration Memantine 5 mg 12/09/24 09:00 12/12/24 07:55 Memantine Hcl 5 Mg Tab PO 01/08/25 08:59 5 mg DAILY ROSE Administration Montelukast Sodium 10 mg 12/08/24 21:00 12/11/24 20:51 Montelukast Sodium 10 Mg Tablet PO 01/07/25 20:59 10 mg HS ROSE Administration Morphine Sulfate 2 mg 12/08/24 15:57 12/12/24 10:38 Morphine Sulfate 2 Mg/Ml Carp IV 12/22/24 15:56 2 mg BID PRN Administration pre dressing change/pain Oxybutynin Chloride 5 mg 12/09/24 09:00 12/12/24 07:55 Oxybutynin Chloride Xl 5 Mg Tabcr PO 01/08/25 08:59 5 mg DAILY ROSE Administration Pantoprazole Sodium 40 mg 12/09/24 09:00 12/12/24 07:54 Pantoprazole 40 Mg Tab PO 01/08/25 08:59 40 mg DAILY ROSE Administration Potassium Chloride 10 meq 12/09/24 09:00 12/12/24 07:52 Potassium Chloride 10 Meq Tabcr PO 01/08/25 08:59 Not Given DAILY ROSE Pregabalin 150 mg 12/08/24 15:57 12/12/24 07:54 Pregabalin 150 Mg Cap PO 01/07/25 15:56 150 mg TID ROSE Administration Vitamin D 50 mcg 12/09/24 09:00 12/12/24 07:55 Cholecalciferol 25 Mcg (1000 Units) Tab PO 01/08/25 08:59 50 mcg DAILY ROSE Administration
[2024-12-12] MEDS: KETOROLAC TROMETHAMINE 15 MG/ML VIAL IV ONE (14:00)
[2024-12-12] MEDS: NYSTATIN POWDER 15GM BTL EXT SCH (21:44)
[2024-12-13] MEDS: POLYETHYLENE (MIRALAX) 17 GM PACK PO PRN (06:16)
--- NOTE | 2024-12-13 08:36 | Hospitalist Progress Note ---
Date of Service December 13, 2024 Assessment & Plan (1) Lymphedema associated with obesity: (2) Cellulitis of leg: (3) Non-healing wound of right lower extremity: (4) Non-healing wound of left lower extremity: (5) Morbid obesity: (6) Venous stasis of lower extremity: (7) PAD (peripheral artery disease): (8) JORGE A (obstructive sleep apnea): Plan Ms. Jimenez is a 49 yr old F who has a significant PMH of Bipolar disorder, depression with anxiety, PTSD, asthma, JORGE A noncompliant with CPAP, b/l lymphedema, chronic lower extremity wounds and morbid obesity who presents to ED 2/2 worsening RLE wounds, redness and pain for 3-4 days prior to admission. Patient was evaluated by ID who recommended clindamycin 450 mg po q8 hours to empirically cover MRSA and for its penetration and bioavailability. Patient with continued improvement; however, given habitus she is unlikely to care for wounds by her self initially as she cannot visualize or reach the areas on the legs. Discussed with her roomate that living conditions are also questionable as well as self care. Working with case management for skilled placement for wound care to ensure best opportunity for healing Pending insurance auth. Medically stable for discharge. Adding amlactin to bilateral lower extremities for xerosis 2/2 lymphedema #Recurrent RLE cellulitis w/ chronic shallow ulcers #Hx of MRSA RLE infection #Chronic lymphedema MRSA + RLE wound cx and blood cx NGTD Transitioned to IV clindamycin on 12/09 Await ID recommendations Vascular: no notable vascular disease continue lasix Discussed case with ID Dr Redmond: continue IV until tomorrow with transition to same dose as PO for total 14 days #bipolar disorder #PTSD continue home regimen caution if zyvox is utilized upon Dispo dvt ppx lovenox Admission and Anticipated Discharge Date Admission Date: December 08, 2024 Subjective NAEO continued improvement, no new concerns Physical Exam Constitutional: WD/WN, vitals as above Respiratory: normal respiratory effort, lungs clear to auscultation Cardiovascular: RRR, no murmur, no edema Results & Data Results & Data Vital Signs (Past 12 Hours) Vital Signs Temp Pulse Resp BP Pulse Ox O2 Del Method 12/13/24 07:32 36.5 C 68 16 103/68 95 Room Air Medications Administered Home Medications Medication Instructions Recorded Confirmed Last Taken aripiprazole 15 mg tablet 15 mg PO HS 08/09/24 12/08/24 Unknown buspirone 10 mg tablet 10 mg PO BID 08/09/24 12/08/24 Unknown cetirizine 10 mg tablet 10 mg PO DAILY 08/09/24 12/08/24 Unknown ferrous sulfate 28 mg iron tablet 28 mg PO DAILY 08/09/24 12/08/24 Unknown lamotrigine 100 mg tablet 100 mg PO BID 08/09/24 12/08/24 Unknown montelukast 10 mg tablet 10 mg PO HS 08/09/24 12/08/24 Unknown omeprazole 20 mg capsule,delayed 20 mg PO DAILY 08/09/24 12/08/24 Unknown release potassium chloride 10 mEq 10 meq PO DAILY 08/09/24 12/08/24 Unknown tablet,extended release pregabalin 150 mg capsule 150 mg PO TID 08/09/24 12/08/24 Unknown cholecalciferol (vitamin D3) 50 50 mcg PO DAILY 12/08/24 12/08/24 Unknown mcg (2,000 unit) tablet clonazepam 0.5 mg tablet 0.25 mg PO BID PRN Anxiety 12/08/24 12/08/24 Unknown duloxetine 20 mg capsule,delayed 20 mg PO BID 12/08/24 12/08/24 Unknown release furosemide 40 mg tablet 40 mg PO DAILY PRN Edema 12/08/24 12/08/24 Unknown memantine 10 mg tablet 10 mg PO HS 12/08/24 12/08/24 Unknown memantine 5 mg tablet 5 mg PO DAILY 12/08/24 12/08/24 Unknown oxybutynin chloride 5 mg 5 mg PO DAILY 12/08/24 12/08/24 Unknown tablet,extended release 24 hr turmeric 400 mg capsule 400 mg PO DAILY 12/08/24 12/08/24 Unknown Active Medications Generic Name Dose Route Start Last Admin Trade Name Freq PRN Reason Stop Dose Admin Acetaminophen 650 mg 12/08/24 15:57 12/12/24 16:42 Acetaminophen 325 Mg Tab PO 01/07/25 15:56 650 mg Q4H PRN Administration pain/fever Aripiprazole 15 mg 12/08/24 21:00 12/12/24 21:38 Aripiprazole 15 Mg Tab PO 01/07/25 20:59 15 mg HS ROSE Administration Buspirone HCl 10 mg 12/08/24 21:00 12/13/24 08:24 Buspirone 5 Mg Tab PO 01/07/25 20:59 10 mg BID ROSE Administration Cetirizine HCl 10 mg 12/09/24 09:00 12/13/24 08:25 Cetirizine Hcl 10 Mg Tablet PO 01/08/25 08:59 10 mg DAILY ROSE Administration Clindamycin HCl 450 mg 12/09/24 14:00 12/13/24 06:06 Clindamycin Hcl 150 Mg Cap PO 12/16/24 13:59 450 mg Q8H ROSE Administration Duloxetine HCl 20 mg 12/08/24 21:00 12/13/24 08:23 Duloxetine Hcl 20 Mg Cap PO 01/07/25 20:59 20 mg BID ROSE Administration Enoxaparin Sodium 40 mg 12/08/24 21:00 12/13/24 08:23 Enoxaparin Inj 40 Mg/0.4 Ml Syr SQ 01/07/25 20:59 40 mg Q12H ROSE Administration Furosemide 40 mg 12/09/24 09:00 12/13/24 08:28 Furosemide 40 Mg Tab PO 01/08/25 08:59 Not Given DAILY ROSE Lactobacillus Acidophilus 1,250 mg 12/09/24 09:00 12/13/24 08:24 Advanced Probiotic 625 Mg Capsule PO 01/08/25 08:59 1,250 mg DAILY ROSE Administration Lamotrigine 100 mg 12/08/24 21:00 12/13/24 08:24 Lamotrigine 100 Mg Tab PO 01/07/25 20:59 100 mg BID ROSE Administration Protocol Memantine 10 mg 12/08/24 21:00 12/12/24 21:41 Memantine Hcl 10 Mg Tab PO 01/07/25 20:59 10 mg HS ROSE Administration Memantine 5 mg 12/09/24 09:00 12/13/24 08:25 Memantine Hcl 5 Mg Tab PO 01/08/25 08:59 5 mg DAILY ROSE Administration Montelukast Sodium 10 mg 12/08/24 21:00 12/12/24 21:39 Montelukast Sodium 10 Mg Tablet PO 01/07/25 20:59 10 mg HS ROSE Administration Morphine Sulfate 2 mg 12/08/24 15:57 12/13/24 12:36 Morphine Sulfate 2 Mg/Ml Carp IV 12/22/24 15:56 2 mg BID PRN Administration pre dressing change/pain Nystatin 1 appln 12/12/24 21:00 12/13/24 08:47 Nystatin Powder 15gm Btl EXT 01/11/25 20:59 1 appln Q12 ROSE Administration Oxybutynin Chloride 5 mg 12/09/24 09:00 12/13/24 08:24 Oxybutynin Chloride Xl 5 Mg Tabcr PO 01/08/25 08:59 5 mg DAILY ROSE Administration Pantoprazole Sodium 40 mg 12/09/24 09:00 12/13/24 08:24 Pantoprazole 40 Mg Tab PO 01/08/25 08:59 40 mg DAILY ROSE Administration Polyethylene Glycol 17 gm 12/08/24 15:57 12/13/24 06:16 Polyethylene (Miralax) 17 Gm Pack PO 01/07/25 15:56 17 gm DAILY PRN Administration Constipation Potassium Chloride 10 meq 12/09/24 09:00 12/13/24 08:28 Potassium Chloride 10 Meq Tabcr PO 01/08/25 08:59 Not Given DAILY ROSE Pregabalin 150 mg 12/08/24 15:57 12/13/24 08:22 Pregabalin 150 Mg Cap PO 01/07/25 15:56 150 mg TID ROSE Administration Vitamin D 50 mcg 12/09/24 09:00 12/13/24 08:23 Cholecalciferol 25 Mcg (1000 Units) Tab PO 01/08/25 08:59 50 mcg DAILY ROSE Administration
[2024-12-13] MEDS: KETOROLAC TROMETHAMINE 15 MG/ML VIAL IV ONE (08:47)
[2024-12-13] MEDS: AMMONIUM LACTATE 12% LOTION 225 GM BTL EXT SCH (13:11)
--- NOTE | 2024-12-14 15:36 | Hospitalist Progress Note ---
Date of Service December 14, 2024 Assessment & Plan (1) Lymphedema associated with obesity: (2) Cellulitis of leg: (3) Non-healing wound of right lower extremity: (4) Non-healing wound of left lower extremity: (5) Morbid obesity: (6) Venous stasis of lower extremity: (7) PAD (peripheral artery disease): (8) JORGE A (obstructive sleep apnea): Plan Ms. Jimenez is a 49 yr old F who has a significant PMH of Bipolar disorder, depression with anxiety, PTSD, asthma, JORGE A noncompliant with CPAP, b/l lymphedema, chronic lower extremity wounds and morbid obesity who presents to ED 2/2 worsening RLE wounds, redness and pain for 3-4 days prior to admission. Patient was evaluated by ID who recommended clindamycin 450 mg po q8 hours to empirically cover MRSA and for its penetration and bioavailability. Patient with continued improvement; however, given habitus she is unlikely to care for wounds by her self initially as she cannot visualize or reach the areas on the legs. Discussed with her roomate that living conditions are also questionable as well as self care. Working with case management for skilled placement for wound care to ensure best opportunity for healing Pending insurance auth. Medically stable for discharge. continue amlactin to bilateral lower extremities for xerosis 2/2 lymphedema #Recurrent RLE cellulitis w/ chronic shallow ulcers #Hx of MRSA RLE infection #Chronic lymphedema MRSA + RLE wound cx and blood cx NGTD Transitioned to IV clindamycin on 12/09 Await ID recommendations Vascular: no notable vascular disease continue lasix Discussed case with ID Dr [place]: continue clindamycin 12/23 #bipolar disorder #PTSD continue home regimen Plan to discuss with CM dispo options dvt ppx lovenox Admission and Anticipated Discharge Date Admission Date: December 08, 2024 Subjective NAEO Reports feeling positive and motivated after working with PT today Physical Exam Constitutional: WD/WN, vitals as above Respiratory: normal respiratory effort, lungs clear to auscultation Cardiovascular: RRR, no murmur, no edema Results & Data Results & Data Vital Signs (Past 12 Hours) Vital Signs Temp Pulse Resp BP Pulse Ox O2 Del Method 12/14/24 14:52 36.8 C 68 18 94/61 L 95 Room Air 12/14/24 07:50 37.1 C 77 16 105/69 95 Room Air Medications Administered Home Medications Medication Instructions Recorded Confirmed Last Taken aripiprazole 15 mg tablet 15 mg PO HS 08/09/24 12/08/24 Unknown buspirone 10 mg tablet 10 mg PO BID 08/09/24 12/08/24 Unknown cetirizine 10 mg tablet 10 mg PO DAILY 08/09/24 12/08/24 Unknown ferrous sulfate 28 mg iron tablet 28 mg PO DAILY 08/09/24 12/08/24 Unknown lamotrigine 100 mg tablet 100 mg PO BID 08/09/24 12/08/24 Unknown montelukast 10 mg tablet 10 mg PO HS 08/09/24 12/08/24 Unknown omeprazole 20 mg capsule,delayed 20 mg PO DAILY 08/09/24 12/08/24 Unknown release potassium chloride 10 mEq 10 meq PO DAILY 08/09/24 12/08/24 Unknown tablet,extended release pregabalin 150 mg capsule 150 mg PO TID 08/09/24 12/08/24 Unknown cholecalciferol (vitamin D3) 50 50 mcg PO DAILY 12/08/24 12/08/24 Unknown mcg (2,000 unit) tablet clonazepam 0.5 mg tablet 0.25 mg PO BID PRN Anxiety 12/08/24 12/08/24 Unknown duloxetine 20 mg capsule,delayed 20 mg PO BID 12/08/24 12/08/24 Unknown release furosemide 40 mg tablet 40 mg PO DAILY PRN Edema 12/08/24 12/08/24 Unknown memantine 10 mg tablet 10 mg PO HS 12/08/24 12/08/24 Unknown memantine 5 mg tablet 5 mg PO DAILY 12/08/24 12/08/24 Unknown oxybutynin chloride 5 mg 5 mg PO DAILY 12/08/24 12/08/24 Unknown tablet,extended release 24 hr turmeric 400 mg capsule 400 mg PO DAILY 12/08/24 12/08/24 Unknown Active Medications Generic Name Dose Route Start Last Admin Trade Name Marcq PRN Reason Stop Dose Admin Acetaminophen 650 mg 12/08/24 15:57 12/14/24 13:25 Acetaminophen 325 Mg Tab PO 01/07/25 15:56 650 mg Q4H PRN Administration pain/fever Aripiprazole 15 mg 12/08/24 21:00 12/13/24 21:35 Aripiprazole 15 Mg Tab PO 01/07/25 20:59 15 mg HS ROSE Administration Buspirone HCl 10 mg 12/08/24 21:00 12/14/24 08:28 Buspirone 5 Mg Tab PO 01/07/25 20:59 10 mg BID ROSE Administration Cetirizine HCl 10 mg 12/09/24 09:00 12/14/24 08:28 Cetirizine Hcl 10 Mg Tablet PO 01/08/25 08:59 10 mg DAILY ROSE Administration Clindamycin HCl 450 mg 12/09/24 14:00 12/14/24 13:26 Clindamycin Hcl 150 Mg Cap PO 12/16/24 13:59 450 mg Q8H ROSE Administration Duloxetine HCl 20 mg 12/08/24 21:00 12/14/24 08:27 Duloxetine Hcl 20 Mg Cap PO 01/07/25 20:59 20 mg BID ROSE Administration Enoxaparin Sodium 40 mg 12/08/24 21:00 12/14/24 08:29 Enoxaparin Inj 40 Mg/0.4 Ml Syr SQ 01/07/25 20:59 40 mg Q12H ROSE Administration Furosemide 40 mg 12/09/24 09:00 12/14/24 08:29 Furosemide 40 Mg Tab PO 01/08/25 08:59 Not Given DAILY ROSE Lactic Acid 1 gm 12/13/24 12:30 12/14/24 08:29 Ammonium Lactate 12% Lotion 225 Gm Btl EXT 01/12/25 12:29 Not Given BID ROSE Lactobacillus Acidophilus 1,250 mg 12/09/24 09:00 12/14/24 08:27 Advanced Probiotic 625 Mg Capsule PO 01/08/25 08:59 1,250 mg DAILY ROSE Administration Lamotrigine 100 mg 12/08/24 21:00 12/14/24 08:28 Lamotrigine 100 Mg Tab PO 01/07/25 20:59 100 mg BID ROSE Administration Protocol Memantine 10 mg 12/08/24 21:00 12/13/24 21:35 Memantine Hcl 10 Mg Tab PO 01/07/25 20:59 10 mg HS ROSE Administration Memantine 5 mg 12/09/24 09:00 12/14/24 08:28 Memantine Hcl 5 Mg Tab PO 01/08/25 08:59 5 mg DAILY ROSE Administration Montelukast Sodium 10 mg 12/08/24 21:00 12/13/24 21:36 Montelukast Sodium 10 Mg Tablet PO 01/07/25 20:59 10 mg HS ROSE Administration Morphine Sulfate 2 mg 12/08/24 15:57 12/13/24 21:36 Morphine Sulfate 2 Mg/Ml Carp IV 12/22/24 15:56 2 mg BID PRN Administration pre dressing change/pain Nystatin 1 appln 12/12/24 21:00 12/14/24 08:30 Nystatin Powder 15gm Btl EXT 01/11/25 20:59 Not Given Q12 ROSE Oxybutynin Chloride 5 mg 12/09/24 09:00 12/14/24 08:28 Oxybutynin Chloride Xl 5 Mg Tabcr PO 01/08/25 08:59 5 mg DAILY ROSE Administration Pantoprazole Sodium 40 mg 12/09/24 09:00 12/14/24 08:28 Pantoprazole 40 Mg Tab PO 01/08/25 08:59 40 mg DAILY ROSE Administration Polyethylene Glycol 17 gm 12/08/24 15:57 12/13/24 06:16 Polyethylene (Miralax) 17 Gm Pack PO 01/07/25 15:56 17 gm DAILY PRN Administration Constipation Potassium Chloride 10 meq 12/09/24 09:00 12/14/24 08:29 Potassium Chloride 10 Meq Tabcr PO 01/08/25 08:59 Not Given DAILY ROSE Pregabalin 150 mg 12/08/24 15:57 12/14/24 13:25 Pregabalin 150 Mg Cap PO 01/07/25 15:56 150 mg TID ROSE Administration Vitamin D 50 mcg 12/09/24 09:00 12/14/24 08:27 Cholecalciferol 25 Mcg (1000 Units) Tab PO 01/08/25 08:59 50 mcg DAILY ROSE Administration
[2024-12-14] MEDS: KETOROLAC TROMETHAMINE 15 MG/ML VIAL IV ONE ×2 (15:42→21:01)
--- NOTE | 2024-12-15 16:07 | Hospitalist Progress Note ---
Date of Service December 15, 2024 Assessment & Plan (1) Lymphedema associated with obesity: (2) Cellulitis of leg: (3) Non-healing wound of right lower extremity: (4) Non-healing wound of left lower extremity: (5) Morbid obesity: (6) Venous stasis of lower extremity: (7) PAD (peripheral artery disease): (8) JORGE A (obstructive sleep apnea): Plan Ms. Jimenez is a 49 yr old F who has a significant PMH of Bipolar disorder, depression with anxiety, PTSD, asthma, JORGE A noncompliant with CPAP, b/l lymphedema, chronic lower extremity wounds and morbid obesity who presents to ED 2/2 worsening RLE wounds, redness and pain for 3-4 days prior to admission. Patient was evaluated by ID who recommended clindamycin 450 mg po q8 hours to empirically cover MRSA and for its penetration and bioavailability. Patient with continued improvement; however, given habitus she is unlikely to care for wounds by her self initially as she cannot visualize or reach the areas on the legs. Discussed with her roomate that living conditions are also questionable as well as self care. Working with case management for skilled placement for wound care to ensure best opportunity for healing Pending insurance auth. Medically stable for discharge. continue amlactin to bilateral lower extremities for xerosis 2/2 lymphedema #Recurrent RLE cellulitis w/ chronic shallow ulcers #Hx of MRSA RLE infection #Chronic lymphedema MRSA + RLE wound cx and blood cx NGTD Transitioned to IV clindamycin on 12/09 Await ID recommendations Vascular: no notable vascular disease continue lasix continue clindamycin 12/23 #bipolar disorder #PTSD continue home regimen Plan to discuss with CM dispo options dvt ppx lovenox Admission and Anticipated Discharge Date Admission Date: December 08, 2024 Subjective NAEO Physical Exam Constitutional: WD/WN, vitals as above Respiratory: normal respiratory effort, lungs clear to auscultation Cardiovascular: RRR, no murmur, no edema Musculoskeletal: erythema of bilateral lower extremities notable Results & Data Results & Data Vital Signs (Past 12 Hours) Vital Signs Temp Pulse Resp BP Pulse Ox O2 Del Method 12/15/24 15:34 36.8 C 60 17 98/64 L 100 Room Air 12/15/24 07:19 36.6 C 59 L 18 102/68 95 Room Air
--- NOTE | 2024-12-16 12:47 | Hospitalist Progress Note ---
Date of Service December 16, 2024 Assessment & Plan (1) Lymphedema associated with obesity: (2) Cellulitis of leg: (3) Non-healing wound of right lower extremity: (4) Non-healing wound of left lower extremity: (5) Morbid obesity: (6) Venous stasis of lower extremity: (7) PAD (peripheral artery disease): (8) JORGE A (obstructive sleep apnea): Plan Ms. Jimenez is a 49 yr old F who has a significant PMH of Bipolar disorder, depression with anxiety, PTSD, asthma, JORGE A noncompliant with CPAP, b/l lymphedema, chronic lower extremity wounds and morbid obesity who presents to ED 2/2 worsening RLE wounds, redness and pain for 3-4 days prior to admission. Patient was evaluated by ID who recommended clindamycin 450 mg po q8 hours to empirically cover MRSA and for its penetration and bioavailability. Patient with continued improvement; however, given habitus she is unlikely to care for wounds by her self initially as she cannot visualize or reach the areas on the legs. Discussed with her roomate that living conditions are also questionable as well as self care. Working with case management for skilled placement for wound care to ensure best opportunity for healing Pending insurance auth. Medically stable for discharge. Ongoing issues with discharge. continue amlactin to bilateral lower extremities for xerosis 2/2 lymphedema #Recurrent RLE cellulitis w/ chronic shallow ulcers #Hx of MRSA RLE infection #Chronic lymphedema MRSA + RLE wound cx and blood cx NGTD Transitioned to IV clindamycin on 12/09 Await ID recommendations Vascular: no notable vascular disease continue lasix continue clindamycin 12/23 #bipolar disorder #PTSD continue home regimen Plan to discuss with CM dispo options dvt ppx lovenox Admission and Anticipated Discharge Date Admission Date: December 08, 2024 Subjective NAEO Physical Exam Constitutional: WD/WN, vitals as above Respiratory: normal respiratory effort, lungs clear to auscultation Cardiovascular: RRR, no murmur, no edema Gastrointestinal (Abdomen): normal bowel sounds, soft, nontender, no hepatosplenomegaly Results & Data Results & Data Vital Signs (Past 12 Hours) Vital Signs Temp Pulse Resp BP Pulse Ox O2 Del Method 12/16/24 07:59 36.8 C 55 L 18 96/50 L 100 Room Air Diagnostic Findings Home Medications Medication Instructions Recorded Confirmed Last Taken aripiprazole 15 mg tablet 15 mg PO HS 08/09/24 12/08/24 Unknown buspirone 10 mg tablet 10 mg PO BID 08/09/24 12/08/24 Unknown cetirizine 10 mg tablet 10 mg PO DAILY 08/09/24 12/08/24 Unknown ferrous sulfate 28 mg iron tablet 28 mg PO DAILY 08/09/24 12/08/24 Unknown lamotrigine 100 mg tablet 100 mg PO BID 08/09/24 12/08/24 Unknown montelukast 10 mg tablet 10 mg PO HS 08/09/24 12/08/24 Unknown omeprazole 20 mg capsule,delayed 20 mg PO DAILY 08/09/24 12/08/24 Unknown release potassium chloride 10 mEq 10 meq PO DAILY 08/09/24 12/08/24 Unknown tablet,extended release pregabalin 150 mg capsule 150 mg PO TID 08/09/24 12/08/24 Unknown cholecalciferol (vitamin D3) 50 50 mcg PO DAILY 12/08/24 12/08/24 Unknown mcg (2,000 unit) tablet clonazepam 0.5 mg tablet 0.25 mg PO BID PRN Anxiety 12/08/24 12/08/24 Unknown duloxetine 20 mg capsule,delayed 20 mg PO BID 12/08/24 12/08/24 Unknown release furosemide 40 mg tablet 40 mg PO DAILY PRN Edema 12/08/24 12/08/24 Unknown memantine 10 mg tablet 10 mg PO HS 12/08/24 12/08/24 Unknown memantine 5 mg tablet 5 mg PO DAILY 12/08/24 12/08/24 Unknown oxybutynin chloride 5 mg 5 mg PO DAILY 12/08/24 12/08/24 Unknown tablet,extended release 24 hr turmeric 400 mg capsule 400 mg PO DAILY 12/08/24 12/08/24 Unknown Active Medications Generic Name Dose Route Start Last Admin Trade Name Freq PRN Reason Stop Dose Admin Acetaminophen 650 mg 12/08/24 15:57 12/16/24 07:26 Acetaminophen 325 Mg Tab PO 01/07/25 15:56 650 mg Q4H PRN Administration pain/fever Aripiprazole 15 mg 12/08/24 21:00 12/15/24 20:23 Aripiprazole 15 Mg Tab PO 01/07/25 20:59 15 mg HS ROSE Administration Buspirone HCl 10 mg 12/08/24 21:00 12/16/24 07:21 Buspirone 5 Mg Tab PO 01/07/25 20:59 10 mg BID ROSE Administration Cetirizine HCl 10 mg 12/09/24 09:00 12/16/24 07:22 Cetirizine Hcl 10 Mg Tablet PO 01/08/25 08:59 10 mg DAILY ROSE Administration Clindamycin HCl 450 mg 12/09/24 14:00 12/16/24 05:49 Clindamycin Hcl 150 Mg Cap PO 12/16/24 13:59 450 mg Q8H ROSE Administration Duloxetine HCl 20 mg 12/08/24 21:00 12/16/24 07:21 Duloxetine Hcl 20 Mg Cap PO 01/07/25 20:59 20 mg BID ROSE Administration Enoxaparin Sodium 40 mg 12/08/24 21:00 12/16/24 07:22 Enoxaparin Inj 40 Mg/0.4 Ml Syr SQ 01/07/25 20:59 40 mg Q12H ROSE Administration Furosemide 40 mg 12/09/24 09:00 12/16/24 07:20 Furosemide 40 Mg Tab PO 01/08/25 08:59 Not Given DAILY ROSE Lactic Acid 1 gm 12/13/24 12:30 12/16/24 07:22 Ammonium Lactate 12% Lotion 225 Gm Btl EXT 01/12/25 12:29 1 gm BID ROSE Administration Lactobacillus Acidophilus 1,250 mg 12/09/24 09:00 12/16/24 07:21 Advanced Probiotic 625 Mg Capsule PO 01/08/25 08:59 1,250 mg DAILY ROSE Administration Lamotrigine 100 mg 12/08/24 21:00 12/16/24 07:22 Lamotrigine 100 Mg Tab PO 01/07/25 20:59 100 mg BID ROSE Administration Protocol Memantine 10 mg 12/08/24 21:00 12/15/24 20:23 Memantine Hcl 10 Mg Tab PO 01/07/25 20:59 10 mg HS ROSE Administration Memantine 5 mg 12/09/24 09:00 12/16/24 07:20 Memantine Hcl 5 Mg Tab PO 01/08/25 08:59 5 mg DAILY ROSE Administration Montelukast Sodium 10 mg 12/08/24 21:00 12/15/24 20:22 Montelukast Sodium 10 Mg Tablet PO 01/07/25 20:59 10 mg HS ROSE Administration Morphine Sulfate 2 mg 12/08/24 15:57 12/16/24 10:44 Morphine Sulfate 2 Mg/Ml Carp IV 12/22/24 15:56 2 mg BID PRN Administration pre dressing change/pain Nystatin 1 appln 12/12/24 21:00 12/16/24 07:22 Nystatin Powder 15gm Btl EXT 01/11/25 20:59 1 appln Q12 ROSE Administration Oxybutynin Chloride 5 mg 12/09/24 09:00 12/16/24 07:19 Oxybutynin Chloride Xl 5 Mg Tabcr PO 01/08/25 08:59 5 mg DAILY ROSE Administration Pantoprazole Sodium 40 mg 12/09/24 09:00 12/16/24 07:20 Pantoprazole 40 Mg Tab PO 01/08/25 08:59 40 mg DAILY ROSE Administration Polyethylene Glycol 17 gm 12/08/24 15:57 12/13/24 06:16 Polyethylene (Miralax) 17 Gm Pack PO 01/07/25 15:56 17 gm DAILY PRN Administration Constipation Potassium Chloride 10 meq 12/09/24 09:00 12/16/24 07:25 Potassium Chloride 10 Meq Tabcr PO 01/08/25 08:59 10 meq DAILY ROSE Administration Pregabalin 150 mg 12/08/24 15:57 12/16/24 07:26 Pregabalin 150 Mg Cap PO 01/07/25 15:56 150 mg TID ROSE Administration Vitamin D 50 mcg 12/09/24 09:00 12/16/24 07:20 Cholecalciferol 25 Mcg (1000 Units) Tab PO 01/08/25 08:59 50 mcg DAILY ROSE Administration Medications Administered Home Medications Medication Instructions Recorded Confirmed Last Taken aripiprazole 15 mg tablet 15 mg PO HS 08/09/24 12/08/24 Unknown buspirone 10 mg tablet 10 mg PO BID 08/09/24 12/08/24 Unknown cetirizine 10 mg tablet 10 mg PO DAILY 08/09/24 12/08/24 Unknown ferrous sulfate 28 mg iron tablet 28 mg PO DAILY 08/09/24 12/08/24 Unknown lamotrigine 100 mg tablet 100 mg PO BID 08/09/24 12/08/24 Unknown montelukast 10 mg tablet 10 mg PO HS 08/09/24 12/08/24 Unknown omeprazole 20 mg capsule,delayed 20 mg PO DAILY 08/09/24 12/08/24 Unknown release potassium chloride 10 mEq 10 meq PO DAILY 08/09/24 12/08/24 Unknown tablet,extended release pregabalin 150 mg capsule 150 mg PO TID 08/09/24 12/08/24 Unknown cholecalciferol (vitamin D3) 50 50 mcg PO DAILY 12/08/24 12/08/24 Unknown mcg (2,000 unit) tablet clonazepam 0.5 mg tablet 0.25 mg PO BID PRN Anxiety 12/08/24 12/08/24 Unknown duloxetine 20 mg capsule,delayed 20 mg PO BID 12/08/24 12/08/24 Unknown release furosemide 40 mg tablet 40 mg PO DAILY PRN Edema 12/08/24 12/08/24 Unknown memantine 10 mg tablet 10 mg PO HS 12/08/24 12/08/24 Unknown memantine 5 mg tablet 5 mg PO DAILY 12/08/24 12/08/24 Unknown oxybutynin chloride 5 mg 5 mg PO DAILY 12/08/24 12/08/24 Unknown tablet,extended release 24 hr turmeric 400 mg capsule 400 mg PO DAILY 12/08/24 12/08/24 Unknown Active Medications Generic Name Dose Route Start Last Admin Trade Name Freq PRN Reason Stop Dose Admin Acetaminophen 650 mg 12/08/24 15:57 12/16/24 07:26 Acetaminophen 325 Mg Tab PO 01/07/25 15:56 650 mg Q4H PRN Administration pain/fever Aripiprazole 15 mg 12/08/24 21:00 12/15/24 20:23 Aripiprazole 15 Mg Tab PO 01/07/25 20:59 15 mg HS ROSE Administration Buspirone HCl 10 mg 12/08/24 21:00 12/16/24 07:21 Buspirone 5 Mg Tab PO 01/07/25 20:59 10 mg BID ROSE Administration Cetirizine HCl 10 mg 12/09/24 09:00 12/16/24 07:22 Cetirizine Hcl 10 Mg Tablet PO 01/08/25 08:59 10 mg DAILY ROSE Administration Clindamycin HCl 450 mg 12/09/24 14:00 12/16/24 05:49 Clindamycin Hcl 150 Mg Cap PO 12/16/24 13:59 450 mg Q8H ROSE Administration Duloxetine HCl 20 mg 12/08/24 21:00 12/16/24 07:21 Duloxetine Hcl 20 Mg Cap PO 01/07/25 20:59 20 mg BID ROSE Administration Enoxaparin Sodium 40 mg 12/08/24 21:00 12/16/24 07:22 Enoxaparin Inj 40 Mg/0.4 Ml Syr SQ 01/07/25 20:59 40 mg Q12H ROSE Administration Furosemide 40 mg 12/09/24 09:00 12/16/24 07:20 Furosemide 40 Mg Tab PO 01/08/25 08:59 Not Given DAILY ROSE Lactic Acid 1 gm 12/13/24 12:30 12/16/24 07:22 Ammonium Lactate 12% Lotion 225 Gm Btl EXT 01/12/25 12:29 1 gm BID ROSE Administration Lactobacillus Acidophilus 1,250 mg 12/09/24 09:00 12/16/24 07:21 Advanced Probiotic 625 Mg Capsule PO 01/08/25 08:59 1,250 mg DAILY ROSE Administration Lamotrigine 100 mg 12/08/24 21:00 12/16/24 07:22 Lamotrigine 100 Mg Tab PO 01/07/25 20:59 100 mg BID ROSE Administration Protocol Memantine 10 mg 12/08/24 21:00 12/15/24 20:23 Memantine Hcl 10 Mg Tab PO 01/07/25 20:59 10 mg HS ROSE Administration Memantine 5 mg 12/09/24 09:00 12/16/24 07:20 Memantine Hcl 5 Mg Tab PO 01/08/25 08:59 5 mg DAILY ROSE Administration Montelukast Sodium 10 mg 12/08/24 21:00 12/15/24 20:22 Montelukast Sodium 10 Mg Tablet PO 01/07/25 20:59 10 mg HS ROSE Administration Morphine Sulfate 2 mg 12/08/24 15:57 12/16/24 10:44 Morphine Sulfate 2 Mg/Ml Carp IV 12/22/24 15:56 2 mg BID PRN Administration pre dressing change/pain Nystatin 1 appln 12/12/24 21:00 12/16/24 07:22 Nystatin Powder 15gm Btl EXT 01/11/25 20:59 1 appln Q12 ROSE Administration Oxybutynin Chloride 5 mg 12/09/24 09:00 12/16/24 07:19 Oxybutynin Chloride Xl 5 Mg Tabcr PO 01/08/25 08:59 5 mg DAILY ROSE Administration Pantoprazole Sodium 40 mg 12/09/24 09:00 12/16/24 07:20 Pantoprazole 40 Mg Tab PO 01/08/25 08:59 40 mg DAILY ROSE Administration Polyethylene Glycol 17 gm 12/08/24 15:57 12/13/24 06:16 Polyethylene (Miralax) 17 Gm Pack PO 01/07/25 15:56 17 gm DAILY PRN Administration Constipation Potassium Chloride 10 meq 12/09/24 09:00 12/16/24 07:25 Potassium Chloride 10 Meq Tabcr PO 01/08/25 08:59 10 meq DAILY ROSE Administration Pregabalin 150 mg 12/08/24 15:57 12/16/24 07:26 Pregabalin 150 Mg Cap PO 01/07/25 15:56 150 mg TID ROSE Administration Vitamin D 50 mcg 12/09/24 09:00 12/16/24 07:20 Cholecalciferol 25 Mcg (1000 Units) Tab PO 01/08/25 08:59 50 mcg DAILY ROSE Administration
[2024-12-17 07:18] VITALS: BP 101/68; PULSE 58; RESP 16; TEMP 97.9; O2SAT 96
[2024-12-17 10:08] LABS: Basophils # (auto) 0.02 K/uL (0.00-0.20); Basophils % (auto) 0.3 %; Eosinophils # (auto) 0.01 K/uL (0.00-0.50); Eosinophils % (auto) 0.2 %; Hematocrit (blood only) 34.4 % (37.0-47.0); Hemoglobin 10.9 g/dl (12.0-16.0); Immature Granulocytes # (auto) 0.02 K/uL (0.01-0.20); Immature Granulocytes % (auto) 0.3 %; Lymphocytes # (auto) 1.81 K/uL (1.20-3.40); Lymphocytes % (auto) 29.7 %; Mean Corpuscular Hemoglobin 26.8 pg (25.0-34.0); Mean Corpuscular Hgb Conc 31.7 g/dL (32.0-36.0); Mean Corpuscular Volume 84.5 fL (80.0-100.0); Mean Platelet Volume 8.9 fL (9.4-12.4); Monocytes # (auto) 0.36 K/uL (0.11-0.59); Monocytes % (auto) 5.9 %; Neutrophils # (auto) 3.87 K/uL (1.40-6.50); Neutrophils % (auto) 63.6 %; Platelet Count 239 K/uL (130-400); RDW Standard Deviation 48.8 fL (36.4-46.3); Red Blood Count 4.07 M/uL (4.20-5.40); White Blood Count 6.09 K/ul (4.8-10.8)
[2024-12-17 10:29] LABS: Albumin Level 3.4 gm/dl (3.4-5.0); Bilirubin,Total 0.6 mg/dl (0.2-1.0); Creatinine Clr Calc Pharmacy 105.3 ml/min; Globulin 3.5 gm/dl (2.5-4.0); Magnesium 2.1 mg/dl (1.7-2.4); Phosphorus 3.7 mg/dl (2.5-4.9); Potassium 4.3 mmol/L (3.5-5.1); Total Protein 6.9 gm/dl (6.0-8.3)
--- NOTE | 2024-12-17 12:51 | Discharge Summary ---
Discharge Summary Date of Service December 17, 2024 Principal Dx & Hospital Course #1 = Principal Diagnosis (1) Lymphedema associated with obesity: (2) Cellulitis of leg: (3) Non-healing wound of right lower extremity: (4) Non-healing wound of left lower extremity: (5) Morbid obesity: (6) Venous stasis of lower extremity: (7) PAD (peripheral artery disease): (8) JORGE A (obstructive sleep apnea): Plan Ms. Jimenez is a 49 yr old F who has a significant PMHx of Bipolar disorder, depression with anxiety, PTSD, asthma, JORGE A noncompliant with CPAP, b/l lymphedema, chronic lower extremity wounds and morbid obesity who presents to ED 2/2 worsening RLE wounds, redness and pain for 3-4 days prior to admission. Patient was evaluated by ID who recommended clindamycin 450 mg po q8 hours, with end of treatment date of 12/23/24. Patient with continued improvement; however, given habitus she is unlikely to care for wounds by her self initially as she cannot visualize or reach the areas on the legs. Pt did not meet criteria for SNF placement. Recurrent RLE cellulitis w/ chronic shallow ulcers/wounds Hx of MRSA RLE infection Chronic lymphedema MRSA + RLE wound cx and blood cx NGTD Transitioned to IV clindamycin on 12/09 Infectious Disease was consulted and recommended the following on 12/10/24: "...if the patient is improving on clindamycin, we recommend to treat with p.o. clindamycin 450 mg q8 hours to treat for 14 days ( end date 12/23/2024 ) - recommended probiotic while on antibiotic therapy to 1 week after stopping antibiotics..." Vascular: no notable vascular disease continue lasix daily with daily KCl Follow up with wound care- pt states she has followup scheduled for 12/19/24 after discharge Pt did not meet criteria for SNF placement but is agreeable to going home with [facility] Close PCP followup after discharge bipolar disorder PTSD continue home regimen Notes For Next Care Provider As above Medication Changes From Visit Clindamycin 450mg q8h until December 23 with probiotic Admission HPI Per Admitting Provider This is a 49 yr old F who has a significant PMH of Bipolar disorder, depression with anxiety, PTSD, asthma, JORGE A noncompliant with CPAP, b/l lymphedema, chronic lower extremity wounds and morbid obesity who presents to ED 2/2 worsening RLE wounds, redness and pain x 3-4 days. Family member is at bedside who is a pharmacy innovation assistant and also helps elicit history. At baseline pt ambulates with a walker and she does not drive. She has been following with wound clinic down at [facility] for 2 years and overall wounds are worsening per family member. Over the last 3-4 days they noted increased redness, pain and warm to the wound along with increased drainage and smell. She denies any change in her lymphedema. She generally has felt chills, sweats, feverish, generally unwell and a headache. She denies any photophobia/phonophobia, vision/hearing changes, chest pain, sob, n/v/d, abd pain, change in bowel or urinary habits. In ED pts CBC, CMP was generally unremarkable. She was last hospitalized in August with a similar presentation in which her wounds grew MRSA. She was treated with IV Dapto and transitioned to Linezolid at discharge. In ED she was started on IV dapto and blood/wound cultures were obtained. Admission Exam Per Admitting Provider constitutional: WD/WN, morbidly obese, vitals as above, NAD, sitting up in bed, pleasant, conversing easily Head: Normocephalic, Atraumatic Eyes: PERRL, conjunctivae normal, anicteric sclerae ENMT: external ear and nose normal, oropharynx normal Neck: trachea midline, no thyromegaly normal visual inspection Respiratory: normal respiratory effort, lungs clear to auscultation, no wheeze, rales, rhonchi. Normal insp/exp effort, no accessory muscle use Cardiovascular: RRR, no murmur, bilateral lower extremity lymph edema with b/l pretibial wounds. RLE with erythema around wounds, warm and foul smelling drainage. No surrounding erythema to LLE wounds. Vessels: no JVD or carotid bruit Chest: normal inspection of chest Abdomen: obese abd, normal bowel sounds, soft, nontender, Musculoskeletal: no cyanosis or clubbing, limited lower ext ROM 2/2 to pain and lymphedema Skin: no rashes, warm and dry normal turgor Neurologic: no face palsy, no dysarthria CN's II-XI intact bilaterally and moves all extremities Psychiatric: A+Ox3, euthymic affect Discharge Exam General: Alert, oriented. No acute distress, obese Skin: lower extremities with swelling, erythema and noted draining wounds bilaterally Psych: Appropriate mood and affect HEENT: NC/AT CV: RRR Resp: Breath sounds clear bilaterally, no increased effort of breathing Abdomen: Soft, nontender Extremities: lower extremities with swelling, erythema and noted draining wounds bilaterally Updated Medication List Medication Instructions Recorded Confirmed Type aripiprazole 15 mg tablet 15 mg PO HS 08/09/24 12/08/24 History buspirone 10 mg tablet 10 mg PO BID 08/09/24 12/08/24 History cetirizine 10 mg tablet 10 mg PO DAILY 08/09/24 12/08/24 History ferrous sulfate 28 mg iron tablet 28 mg PO DAILY 08/09/24 12/08/24 History lamotrigine 100 mg tablet 100 mg PO BID 08/09/24 12/08/24 History montelukast 10 mg tablet 10 mg PO HS 08/09/24 12/08/24 History omeprazole 20 mg capsule,delayed 20 mg PO DAILY 08/09/24 12/08/24 History release potassium chloride 10 mEq 10 meq PO DAILY 08/09/24 12/08/24 History tablet,extended release pregabalin 150 mg capsule 150 mg PO TID 08/09/24 12/08/24 History cholecalciferol (vitamin D3) 50 50 mcg PO DAILY 12/08/24 12/08/24 History mcg (2,000 unit) tablet clonazepam 0.5 mg tablet 0.25 mg PO BID PRN Anxiety 12/08/24 12/08/24 History duloxetine 20 mg capsule,delayed 20 mg PO BID 12/08/24 12/08/24 History release furosemide 40 mg tablet 40 mg PO DAILY PRN Edema 12/08/24 12/08/24 History memantine 10 mg tablet 10 mg PO HS 12/08/24 12/08/24 History memantine 5 mg tablet 5 mg PO DAILY 12/08/24 12/08/24 History oxybutynin chloride 5 mg 5 mg PO DAILY 12/08/24 12/08/24 History tablet,extended release 24 hr turmeric 400 mg capsule 400 mg PO DAILY 12/08/24 12/08/24 History L.acidop,casei,lactis,rham-B.lact,mini 1 cap PO DAILY #30 caps 12/17/24 Rx 625 mg (10 billion cell) capsule (Advanced Probiotic) clindamycin HCl 150 mg capsule 450 mg (3 x 150 mg) PO Q8 #63 caps 12/17/24 Rx Hospital Stay Data Consultations 12/08/24 13:01 ED Decision to Admit Stat 12/08/24 13:05 Consult Infectious Diseases Routine 12/09/24 12:02 Consult Vascular Surgery Routine Diagnostic Imagining Performed 12/08/24 15:57 US arterial duplex LE BI Routine 12/09/24 12:02 CTA abd aorta runof w con [CT ang AA runof w inc wo ifdon] Routine Duplex Scan Lower Extremity Artery 12/08/24 15:57 Exam(s): US ARTERIAL BILATERAL LOWER EXTREMITIES EXAM: US Duplex Bilateral Lower Extremities Arteries CLINICAL HISTORY: Reason for exam: nonhealing b/l wounds. TECHNIQUE: Real-time duplex ultrasound scan of the bilateral lower extremity arteries integrating B-mode two-dimensional vascular structure, Doppler spectral analysis and color flow Doppler imaging. COMPARISON: No relevant prior studies available. FINDINGS: Right common femoral artery: Right common femoral artery is patent with low resistance waveform, 169 cm/s. Right deep femoral artery: Right deep femoral artery, biphasic flow, 77 cm/s. Right superficial femoral artery: Right superficial femoral artery, low resistance waveform, 110, 132, and 180 cm/s. Right popliteal artery: Right popliteal artery, low resistance waveform, 133 and 96 cm/s. Right calf/foot arteries: Right posterior tibial artery, low resistance waveform, 101 cm/s. Right dorsalis pedis artery, low resistance waveform, 99 cm/s to 133 cm/s. Left common femoral artery: Left common femoral artery, low resistance waveform, 159 cm/s. Left deep femoral artery: Left deep femoral artery, monophasic waveform, 104 cm/s. Left superficial femoral artery: Left superficial femoral artery, low resistance waveform, 154, 139, and 196 cm/s. Left popliteal artery: Left popliteal artery, low resistance waveform, 152, 108, and 89 cm/s. Left calf/foot arteries: Left posterior tibial artery, low resistance waveform, 65 cm/s. Left dorsalis pedis artery, monophasic waveform, 152 and 134 cm/s. Soft tissues: Unremarkable. IMPRESSION: There is a low resistance waveform with sharp arterial upstroke but lack of diastolic reversal throughout most of both lower extremity arterial structures as described above. This can be due to severe stenosis or segmental occlusion above the aorta and/or iliac vessels versus loss of peripheral vascular resistance such as seen in chronic lower extremity infections or artifact from hardening of the arteries and small vessel disease. Consider CT angiogram for better visualization of more proximal vessels. Mildly elevated velocities in the distal superficial femoral arteries bilaterally consistent with 30-49% stenosis. Electronically signed by: Estiven Bridges MD 12/08/24 22:47 PM Aorta w/Runoff CTA 12/09/24 12:02 CT ANGIOGRAPHY OF THE ABDOMEN AND PELVIS WITH LOWER EXTREMITY RUNOFF CLINICAL HISTORY: PAD, evaluate stenosis aorta, iliacs COMPARISON STUDY: Bilateral lower extremity arterial Doppler ultrasound December 08, 2024. TECHNIQUE: Helical axial images of the abdomen and pelvis and both lower extremities were obtained during arterial phase following intravenous injection of 119 cc of Optiray 320 IV. Sagittal and coronal reformats were viewed as well as maximal intensity projections on an independent 3-D workstation. A dose lowering technique was utilized adhering to the principles of ALARA. FINDINGS: The heart is moderately enlarged. No pneumatosis, free air or portal venous gas is present. The spleen is mildly enlarged. There is no biliary ductal dilatation status post cholecystectomy. Adrenal glands, kidneys and pancreas are normal. There is no evidence for a bowel obstruction. There is a moderate amount stool within the colon. The appendix is normal. There is no lymphadenopathy. There is no ascites. Bilateral lower extremity edema is noted. Numerous varicosities are present. Incidental note is made of severe osteoarthritis of the medial compartments of both knees. This exam is mildly compromised by quantum mottle artifact. The caliber of the abdominal aorta is normal. The celiac axis, superior mesenteric artery, inferior mesenteric artery and renal arteries are patent. There are no stenosis within these vessels. The right common iliac, internal iliac, external iliac and common femoral arteries are patent. There is moderate calcified plaque within the right superficial femoral artery with mild stenosis. No high-grade stenosis is identified. There is moderate plaque within the right popliteal, anterior tibial, posterior tibial, peroneal and dorsalis pedis vessels. Calf vessels are suboptimally assessed given small size but no high-grade stenosis is present. There is three-vessel runoff on the right. The left common iliac, internal iliac and external iliac arteries are patent. The left common femoral artery is patent. There is moderate calcified plaque within the left superficial femoral artery with mild stenosis. No high-grade stenosis is present. There is also moderate calcified plaque within the left calf vessels without high-grade stenosis. There is three-vessel runoff on the left. IMPRESSION: 1. No aortoiliac stenoses. 2. Three-vessel runoff bilaterally. Moderate atherosclerotic plaque within the bilateral superficial femoral and popliteal arteries and the bilateral calf vessels which results in mild multifocal stenosis. No high-grade stenoses. Exam mildly compromised by quantum mottle artifact. 3. Bilateral lower extremity edema. No fluid collections identified. 4. Cardiomegaly. 5. Mild splenomegaly. ACT 112: Negative or not required by law. Electronically signed by: Bubba Perez M.D. 12/09/2024 2:44 PM Discharge Instructions Given to Patient (Per Discharging Provider) Brittney, You are being discharged home. Per the recommendations of Infectious Disease, please continue with the antibiotic Clindamycin 450mg (3 tablets) three times a day until the 23 of December. Please continue with the probiotic prescribed for at least 1 week after you finish the antibiotics. Continue with your lasix daily. Please keep close followup with wound care as scheduled. Please keep close follow up with your primary care provider after discharge. Please do not hesitate to come back to the emergency room if your symptoms worsen or return. It was a pleasure taking care of you while you were here. Total Time Total Time Spent Total Time Spent (In Minutes): 60
[2024-12-17] MEDS: CLINDAMYCIN HCL 150 MG CAP PO SCH (15:07)
== END 2024-12-17 15:45 | disposition home health service (06) | DRG 603 ==
LOC: ED 10:46 → EDINP 13:05 → SUATTDRO 13:05 → 3E 15:57